=== PATIENT | female | born 1980 | race Caucasian/White ===

== ENCOUNTER 2017-12-07 12:56 | Outpatient (REF) | payer SELFPAY | END 2017-12-07 12:57 | LOC: OM 12:56 | PROVIDERS: PCP Nurse Practitioner Family; Visit Provider Nurse Practitioner Family | DX: Z02.79 Encounter for issue of other medical certificate (principal) ==

== ENCOUNTER → 2021-11-17 02:24 | Outpatient (CLI) | payer OTHER, SELFPAY ==
--- NOTE | 2021-11-17 07:45 | DI.MAMMO_ITS ---
Exam(s) US BREAST RT COMPLETE MAMMO DIAGNOSTIC BI EXAM: MAMMO DIAGNOSTIC BI AND U/S BREAST RT COMPLETE CLINICAL HISTORY: RT BREAST MASS, PAIN, N63.10, N64.4. TECHNIQUE: Craniocaudal and mediolateral oblique Full Field Digital Mammography views with Computer Aided Diagnosis followed by Tomosynthesis and right breast ultrasound. COMPARISON: US US BREAST RT COMPLETE from 11/17/2021 FINDINGS: Mammography/Tomosynthesis: Masses/Architectural Distortion: There is a soft tissue spiculated mass at the upper outer quadrant o f the right breast measuring 4.5 cm with associated microcalcifications and architectural distortion. Microcalcifictions: No suspicious pleomorphic-type are seen. Skin Thickening/Nipple Retraction: None. Complete right breast US: Echotexture: Normal appearance of the glandular tissue. Shadowing: No suspicious foci. Cyst: None. Solid lesions: There is a solid hypoechoic irregular mass at the 9 o'clock position 2 cm from the nip ple measuring 4.2 x 2 x 3.1 cm. Increased vascularity is seen. The right axilla is unremarkable. Ductal dilation: None. IMPRESSION: 1. Spiculated mass in the upper outer quadrant of the right breast with associated microcalcification s and architectural distortion. 2. Findings are highly suspicious for malignancy. 3. Findings were discussed with the patient and the primary care team on the date of the examination. BI-RADS Category 5 - Highly Suggestive of Malignancy: Biopsy recommended Breast Density - Category B - Scattered areas of fibroglandular density Breast density Category C or D implies that the patient has dense breast tissue. Dense breast tissue can make it harder to find cancer on a mammogram. Dense breast tissue is also associated with an incr eased risk of breast cancer. This information about the result of the mammogram report was provided to the patient to raise their awareness. Use this report when you speak with the patient about their risks for breast cancer, which includes their family history. At that time, you may recommend additional screening tests (Ultrasoun d or MRI) as these tests may add significant information. A negative radiographic report should not delay biopsy if a dominant or clinically suspicious mass is present. Up to ten percent of cancers are not identified on mammography. A negative report may reinforce clinical impression. Adenosis and dense breasts may obscure an underlying neoplasm. False positive reports average 6 to 10%. Patient will receive a letter notifying them of these results.
== END ==
PROVIDERS: PCP Nurse Practitioner Family; Visit Provider Obstetrics & Gynecology
DX: N63.11 Unspecified lump in the right breast, upper outer quadrant (principal); N64.4 Mastodynia
CPT/HCPCS: 76642; 77062; 77066; G0279

== ENCOUNTER 2021-11-23 08:15 | Outpatient (REF) | payer OTHER, SELFPAY ==
--- NOTE | 2021-11-23 08:25 | BREAST_PTH ---
PATIENT: Soy San LOC: [facility] U#:[id number] AGE/SX: 41/F ROOM: RE11/23/[address]: Jacoby Lim MD : 1980 BED: DIS: 11/23/2021 SPEC #: [id number] RECD: 11/23/21 12:02 STATUS: OTTONIEL WOODARD #: [id number] LORI: 11/23/21 08:[address]: Jacoby Lim DEPT: Surgical Specimen RECD BY: Isiah Pham Tissues: 1 - BREAST BX NEEDLE Procedures: GROSS AND MICRO LEVEL 4 Comments: [id number]
== END 2021-11-23 08:16 | disposition home or self-care (01) ==
LOC: LBN 08:15
PROVIDERS: PCP Nurse Practitioner Family; Visit Provider Surgery
DX: N60.31 Fibrosclerosis of right breast (principal)
CPT/HCPCS: 88305; 88307

== ENCOUNTER 2022-04-29 12:11 | Outpatient (REF) | payer OTHER, SELFPAY ==
[2022-05-01 11:15] LABS: COVID-19 RT-PCR UVMMC Result Negative (Negative)
== END 2022-04-29 12:12 | disposition home or self-care (01) ==
LOC: LBN 12:11
PROVIDERS: Visit Provider Physician Assistant Medical
DX: Z20.822 Contact with and (suspected) exposure to COVID-19 (principal)
CPT/HCPCS: U0003

== ENCOUNTER 2022-06-23 02:05 | Outpatient (CLI) | payer OTHER, SELFPAY ==
--- NOTE | 2022-06-23 | DI.MAMMO_ITS ---
Exam(s) MG MAMMO DIAGNOSTIC UNI US BREAST RT COMPLETE EXAM: MG MAMMO DIAGNOSTIC UNI CLINICAL HISTORY: DIAGNOSTIC, RT BREAST MASS,RT BREAST PAIN,H/O ABNL MAMMO, N64.4,N63.10,. COMPARISON: US US BREAST RT COMPLETE from 11/17/2021 MG MG MAMMO DIAGNOSTIC BI from 11/17/2021 US US BREAST RT COMPLETE from 06/23/2022 TECHNIQUE: Craniocaudal and mediolateral oblique Full Field Digital Mammography views of the right b reast with Computer Aided Diagnosis followed by Tomosynthesis and right breast ultrasound. FINDINGS: Mammography/Tomosynthesis: Masses/Architectural Distortion: Marked interval increase in size of previously noted mass seen in th e central posterior breast with associated pleomorphic microcalcifications. Approximate measurements are 6 x 3 x 3.5 cm. New masses are also noted anterior to the larger mass, measuring 3 by 1.5 cm. Associated architectural distortions seen extending anteriorly. Skin Thickening/Nipple Retraction: Marked skin thickening, up to 2 cm, markedly worsened from prior. New nipple inversion. Right breast US: Marked skin edema, greatest in the retroareolar region. In mild ductal dilatation Large irregular shadowing mass measuring roughly 5.6 x 2.6 by 2 cm. This is seen best at the 11 o'cl ock position. At the 12 o'clock position 1 cm from the nipple, there is a min 11 millimeter mass. T he 6 o'clock position, 4 cm from the nipple, there is a 1.7 x 1.5 x 1.9 centimeter mass. Abnormal appearing enlarged lymph nodes are noted in the axilla, the larger measuring 3.5 cm in lengt h and the smaller measuring 2.2 cm in length. IMPRESSION: Marked interval increase of previously noted mass with associated pleomorphic macro micro calcificati ons. Development of new masses seen anterior to the larger mass as well as marked skin thickening. Abnormally enlarged axillary lymph nodes. BI-RADS Category 5 - Highly Suggestive of Malignancy: Biopsy recommended Breast Density - Category B - Scattered areas of fibroglandular density The findings were discussed with the patient and Dr. Gianna Patino. Further evaluation is scheduled at [facility]. Patient will receive a letter notifying them of these results.
== END 2022-06-23 02:25 ==
LOC: DI 02:06
PROVIDERS: Visit Provider Obstetrics & Gynecology
DX: N64.4 Mastodynia (principal); R92.8 Other abnormal and inconclusive findings on diagnostic imaging of breast; N63.10 Unspecified lump in the right breast, unspecified quadrant
CPT/HCPCS: 76642; 77061; 77065; G0279

== ENCOUNTER 2024-06-01 19:44 | Emergency (ER) | payer BC, SELFPAY ==
[2024-06-01 19:47] VITALS: BP 169/125; PULSE 118; RESP 18; TEMP 36.6; O2SAT 97
[2024-06-01] MEDS: Lidocaine/Epinephri/Tetracaine Topical Gel 3 ML (20:17)
[2024-06-01] MEDS: Silver Nitrate Stick 1 EACH ×2 (20:17)
[2024-06-01 20:18] VITALS: RESP 20; O2SAT 99
--- OUTSIDE RECORDS SUMMARY | 2024-06-01 20:34 | XMS_ITS | Continuity of Care Document ---
Author Organization [facility] Ambulatory Clinics Address [address] [place] [address] Encounter [facility] NBR [id number] Date(s): 03/10/24 - 03/10/24 [facility] Ambulatory Clinics [address] [place], [place] [address] Encounter Diagnosis URI with cough and congestion(Discharge Diagnosis) - 03/10/24 Discharge Disposition: Home or Self Care Attending Physician: LEOPOLDO Kumar Allergies, Adverse Reactions, Alerts No Known Medication Allergies Assessment and Plan Extracted from: Title:[facility] office Visit Note Author:LEOPOLDO Krause Date:03/10/24 1.??URI with cough and conge stion??J06.9 ??Short duration typical viral progression. ??I do feel her abdominal discomfort may be related to her viral illness.?? No acute abdominal findings on exam. ??Patient is otherwise stable. ??Vital signs normal. ??Recommend observation, recheck. ??Reassuring normal CT scan within the past couple of days. ??Follow-up as needed. Ordered: Office serv/reg ti/wkend/holiday [id number], 03/10/24 13:00:00 EST, URI with cough and congestion ?? Medications hydrocortisone 2.5% topical cream 0 Refill(s) Start Date: 03/10/24 Status: Ordered ketoconazole 2% topical cream 0 Refill(s) Start Date: 03/10/24 Status: Ordered lidocaine-prilocaine 2.5%-2.5% topical cream 1 alondra, Topical, Once, # 30 g, 0 Refill(s) Start Date: 03/10/24 Status: Ordered omeprazole 20 mg oral delayed release capsule 0 Refill(s) Start Date: 03/10/24 Status: Ordered trastuzumab 0 Refill(s) Start Date: 03/10/24 Status: Ordered Xgeva 0 Refill(s) Start Date: 03/10/24 Status: Ordered Vital Signs Most recent to oldest [Reference Range]: 1 Temperature Tympanic [36.6-38.1 Deg C] 3 7.4 Deg C (03/10/24 1:03 PM) Peripheral Pulse Rate [60-100 bpm] 77 bp m (03/10/24 1:03 PM) Respiratory Rate [12-24 br/min] 17 br/mi n (03/10/24 1:03 PM) Blood Pressure [90-120/60-80 mmHg] 131/8 1mmHg *HI* (03/10/24 1:03 PM) Mean Arterial Pressure, Cuff [65-140 mmH g] 98 mmHg (03/10/24 1:03 PM) Social History Social History Type Response Tobacco Never tobacco user T obacco Use:. Sex Sex Representation Female (finding) Physician Outpatient Note * LEOPOLDO Kumar: PERFORM Event Display: Office Clinic Note Physician Authored Date: [id number] KARRI SALDIVAR :1980 Age:43 years Sex:Female Visit Date:03/10/2024 Chief Complaint X4 days abd pain comes in waves, mostly when I go to move (belly button) short stabby pain that last about 30 secods or so. Hx of Stage 4 breast cancer. I just got sick 3-4 days ago and my brother was diagnosed with pneumonia. History of Present Illness Patient started 4 days ago with sore throat which resolved quickly then went into runny nose congestion postnasal drip slight cough. ??Also developed some mid upper abdominal discomfort. ??No significant pain. ??She does have a history of gastritis this does not feel similar. ??She is currently on antacid medicine.?? She has had some nausea some upset stomach??however no??continual vomiting or diarrhea. ??She also is currently undergoing chemotherapy some some symptoms are overlapping. ??She denies any new symptoms. ??She recently had a CT scan??this past week of her abdomen, pelvis, chest.?Patient states no acute findings.?? I do not have the report to review.?? She denies any associated fever but has felt warm.?? Denies any hemoptysis. ??Otherwise been usual state of health.?? Brother has pneumonia however she does not have significant contact with him. Physical Exam Vitals & Measurements T:??37.4?C ??(Tympanic)?? HR:??77??(Peripheral)?? RR:??17?? BP:??131/81?? SpO2:??98%?? Pain Score:??3.0?? General: Alert and oriented, well nourished, no acute distress. Eye:??Pupils are reactive, conjunctiva clear. HENT: Normocephalic, clear tympanic membranes, throat clear no exudate and uvula is midline Neck: Supple, non-tender, no lymphadenopathy Lungs: Clear to auscultation, non-labored respiration. Heart: Normal rate, regular rhythm, no murmur, gallop or edema. Abdomen: Abdomen is soft. ??Minimal tenderness periumbilical to upper abdominal. ??Nondistended no masses. ??No peritoneal signs, rigidity, guarding. ??No CVA tenderness. Musculoskeletal: Normal range of motion and strength, no tenderness or swelling. Skin: Skin is warm, dry, no rashes or lesions in examined areas. Neurologic: Awake, alert and oriented X3, normal cognition and interaction. Psychiatric: Cooperative, appropriate mood and affect. Assessment/Plan 1.??URI with cough and congestion??J06.9 ??Short duration typical viral progression. ??I do feel her abdominal discomfort may be related to her viral illness.?? No acute abdominal findings on exam. ??Patient is otherwise stable. ??Vital signs normal. ??Recommend observation, recheck. ??Reassuring normal CT scan within the past couple of days. ??Follow-up as needed. Ordered: Office serv/reg ti/wkend/holiday [id number], 03/10/24 13:00:00 EST, URI with cough and congestion ?? Patient Instructions Verbal instructions per patient request Problem List/Past Medical History Ongoing No qualifying data Historical No qualifying data Medications hydrocortisone 2.5% topical cream ketoconazole 2% topical cream lidocaine-prilocaine 2.5%-2.5% topical cream, 1 alondra, Topical, Once omeprazole 20 mg oral delayed release capsule trastuzumab Xgeva Allergies No Known Medication Allergies Social History Electronic Cigarette/Vaping Electronic Cigarette Use: Never. Tobacco Never tobacco user Tobacco Use:. Electronically Signed on 03/10/2024 13:27 EST LEOPOLDO Kumar Insurance Providers Guarantor name: KARRI SALDIVAR Health Plan Information #: 1 Payer: [facility] Member Number: [id number] Policy Number: NA Health Plan Information #: 2 Payer: [facility] Member Number: NA Policy Number: [id number] Health Plan Information #: 3 Payer: [facility] Member Number: [id number] Policy Number: NA
--- OUTSIDE RECORDS SUMMARY | 2024-06-01 20:34 | XMS_ITS | Continuity of Care Document ---
Author Organization [facility] Address [address] [place] [id number] Encounter [facility] NBR [id number] Date(s): 12/14/22 - 12/14/[address] [address]- [place] Encounter Diagnosis Encounter for drug screening(Discharge Diagnosis) - 12/14/22 Discharge Disposition: Home or Self Care Attending Physician: Linsey Kelsey PA-C
--- OUTSIDE RECORDS SUMMARY | 2024-06-01 20:35 | XMS_ITS | Clinical Summary ---
Author Organization [facility] Address [facility] [place] [address] Care Team Providers Care Security Screener Name Role Phone Ryan Betancourt MD Primary Care Provider [phone] Allergies Active Allergy Reactions Criticality Noted Date Comments Milk Containing Products (Dairy) 07/29/2022 Unclassified Drug Hives Low 07/29/2022 Pollen - runny nose, itchy and watery eyes Transparent Dressings 09/30/2022 Skin irritation/darkening with tegaderm. Use sorbaview Medications Medication Sig Dispensed Refills Start Date End Date Status betamethasone dipropionate (Diprolene) 0.05 % Cream Apply topically 2 times daily. 30 g 08/25/2022 Active multivitamin Capsule Take 1 capsule by mouth daily. Active prochlorperazine (Compazine) 10 mg tablet Take 1 tablet by mouth every 6 hours as needed for Nausea. 30 tablet 3 10/04/2022 Active omeprazole (PriLOSEC) [address] capsuleIndications: Malignant neoplasm of overlapping sites of right breast in female, estrogen receptor negative,Deformity of nail bed,Gastroesophagea l reflux disease, unspecified whether esophagitis present Take 1 capsule by mouth daily. 90 capsule 3 09/22/2023 09/21/2024 Active oxyCODONE-acetamino phen (Percocet) 5-325 mg tablet Take 1 tablet by mouth every 4 hours as needed for Pain. PRN only when needed Active lidocaine-prilocain e (EMLA) CreamIndications:Ma lignant neoplasm of overlapping sites of right breast in female, estrogen receptor negative,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 Apply topically 60 minutes prior to accessing port. Apply a thick layer of cream to designated site of intact skin. Cover site with occlusive dressing. 30 g 1 12/15/2023 Active Sodium Fluoride (Clinpro 5000) 1.1 % Paste BRUSH TEETH DIRECTED BY PROVIDER 12/19/2023 Active hydrocortisone 2.5 % CreamIndications:Ma lignant neoplasm of overlapping sites of right breast in female, estrogen receptor negative,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 Mix equal amounts of both creams and apply mixture topically to affected areas on the pannus, feet and breasts twice daily for 2 weeks as needed. 30 g 1 12/30/2023 Active ketoconazole (Nizoral) 2 % CreamIndications:Ma lignant neoplasm of overlapping sites of right breast in female, estrogen receptor negative,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 Mix equal amounts of both creams and apply mixture topically to affected areas on the pannus, feet and breasts twice daily for 2 weeks as needed. 30 g 1 12/30/2023 Active ondansetron (Zofran) 8 mg tabletIndications:M alignant neoplasm of overlapping sites of right breast in female, estrogen receptor negative,Malignant neoplasm of right breast in female, estrogen receptor negative, unspecified site of breast,HER2-positiv e carcinoma of breast Take 1 tablet by mouth every 8 hours as needed for Nausea. 30 tablet 3 05/03/2024 Active Additional Information Patient not taking.Reported on 05/24/2024 Active Problems Problem Noted Date Diagnosed Date Malignant neoplasm of overla pping sites of breast in female, estrogen receptor negative 07/29/2022 Encounters Date Type Department Care Team Description 05/29/2024 Patient Outreach H[place] [phone] Tegan Perry 05/24/2024 2:23 PM EST - 05/24/2024 11:59 PM EST [place] [phone] Consuelo Joyce APRN Malignant neoplasm of overlapping sites of right breast in female, estrogen receptor negative; Malignant neoplasm of right breast in female, estrogen receptor negative, unspecified site of breast; 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 Discharge Disposition: Home 05/24/2024 10:00 AM EST Office Visit [place] [address] Kavitha Rai MD Malignant neoplasm of overlapping sites of right breast in female, estrogen receptor negative; HER2-positive carcinoma of breast 05/24/2024 8:30 AM EST - 05/24/2024 2:22 PM EST Hospital Encounter [place] [address] Malignant neoplasm of overlapping sites of right breast in female, estrogen receptor negative Discharge Disposition: Home 05/24/2024 8:30 AM EST Hospital Encounter [place] [address] Malignant neoplasm of overlapping sites of right breast in female, estrogen receptor negative Discharge Disposition: Home 05/24/2024 Travel 05/03/2024 11:00 AM EST Office Visit [place] [address] Consuelo Joyce APRN Urgency of urination; Malignant neoplasm of overlapping sites of right breast in female, estrogen receptor negative; Malignant neoplasm of right breast in female, estrogen receptor negative, unspecified site of breast; 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; HER2-positive carcinoma of breast 05/03/2024 10:08 AM EST - 05/03/2024 11:59 PM EST Hospital Encounter [place] [address] Malignant neoplasm of overlapping sites of right breast in female, estrogen receptor negative; Urgency of urination Discharge Disposition: Home 05/03/2024 10:00 AM EST - 05/03/2024 10:07 AM EST Hospital Encounter [place] [address] Malignant neoplasm of overlapping sites of right breast in female, estrogen receptor negative Discharge Disposition: Home 05/03/2024 Travel 04/24/2024 [place] [address] Lilian Gipson MSW 04/10/2024 8:00 AM EST Office Visit [place] [address] Consuelo Joyce, COMMODITY MANAGER Malignant neoplasm of overlapping sites of right breast in female, estrogen receptor negative; Malignant neoplasm of right breast in female, estrogen receptor negative, unspecified site of breast; 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; HER2-positive carcinoma of breast 04/10/2024 6:49 AM EST - 04/10/2024 11:59 PM EST Hospital Encounter Hematology and Oncology at [place] [phone] Malignant neoplasm of overlapping sites of right breast in female, estrogen receptor negative Discharge Disposition: Home 04/10/2024 6:49 AM EST - 04/10/2024 11:59 PM EST Hospital Encounter Hematology and Oncology at [place] [phone] Malignant neoplasm of overlapping sites of right breast in female, estrogen receptor negative Discharge Disposition: Home 04/10/2024 Travel 04/09/2024 Orders Only Radiology at [place] [phone] Farheen Her MD 04/05/2024 Notes Only Care Management [place] [phone] Lilian Gipson, TIE UP WORKER 03/20/2024 2:43 PM EST - 03/20/2024 11:59 PM EST Hospital Encounter MRI at [place] [phone] Consuelo Joyce APRN 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; Malignant neoplasm of overlapping sites of right breast in female, estrogen receptor negative; HER2-positive carcinoma of breast Discharge Disposition: Home 03/20/2024 11:20 AM EST Office Visit [place] [address] Kavitha Rai MD Malignant neoplasm of right breast in female, estrogen receptor negative, unspecified site of breast 03/20/2024 9:41 AM EST - 03/20/2024 2:42 PM EST Hospital Encounter [place] [address] Malignant neoplasm of overlapping sites of right breast in female, estrogen receptor negative Discharge Disposition: Home 03/20/2024 9:40 AM EST Hospital Encounter [place] [address] Malignant neoplasm of overlapping sites of right breast in female, estrogen receptor negative Discharge Disposition: Home 03/20/2024 Travel 03/08/2024 12:12 PM EST - 03/08/2024 11:59 PM EST Hospital Encounter [place] [address] Consuelo Joyce, COMMODITY MANAGER Discharge Disposition: Home 03/08/2024 9:39 AM EST - 03/08/2024 12:11 PM EST Hospital Encounter [place] [address] Consuelo Joyce, COMMODITY MANAGER 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; Malignant neoplasm of overlapping sites of right breast in female, estrogen receptor negative; HER2-positive carcinoma of breast Discharge Disposition: Home 03/08/2024 9:34 AM EST - 03/08/2024 9:38 AM EST [place] [address] Consuelo Joyce, COMMODITY MANAGER 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; Malignant neoplasm of overlapping sites of right breast in female, estrogen receptor negative; HER2-positive carcinoma of breast Discharge Disposition: Home 03/08/2024 Travel from Last 3 Months Family History Medical History Relation Comments Tumor Brother benign pancreat ic tumor that is growing Cancer Father multiple myeloma , hx of agent orange exposure Ovarian Cancer Maternal Aunt 1 Skin Cancer Maternal Aunt 2 Skin Cancer Maternal Cousin 1 Skin Cancer Maternal Cousin 2 Stomach Cancer Maternal Uncle 3 days after diagnosis Breast Cancer Other Relation Status Comments Brother Alive Father Maternal Aunt 1 Alive Maternal Aunt 2 Alive Maternal Cousin 1 Alive Maternal Cousin 2 Alive Maternal Grandfather Maternal Grandmother Alive Maternal Half-Sister Alive Maternal Uncle Mother Alive Other Paternal Grandfather Paternal Grandmother Sister Alive Social History Tobacco Use Types Packs/Day Years Used Date Smoking Tobacco: Former Cigarettes 0.3 1 1 996 - 1996 Smokeless Tobacco: Never Tobacco Cessation:Counseling Given: Not Answered Alcohol Use Standard Drinks/Week Comments Not Currently 4 (1 standard drink = 0.6 oz pure alcohol) not drinking x 2 months since chemo Overall Financial Resource Strain (CARDIA) Answe r Date Recorded How hard is it for you to pa y for the very basics like food, housing, medical care, and heating? Somewhat hard 07/29/2022 Hunger Vital Sign Answer Date Recorded Within the past 12 months, y ou worried that your food would run out before you got the money to buy more. Sometimes true Within the past 12 months, t he food you bought just didn't last and you didn't have money to get more. Sometimes true PRAPARE - Transportation Answer Date Re corded In the past 12 months, has l ack of transportation kept you from medical appointments or from getting medications? No 07/17 In the past 12 months, has l ack of transportation kept you from meetings, work, or from getting things needed for daily living? No 07/29/2022 Housing Stability Vital Sign Answer Augie e Recorded In the last 12 months, was t here a time when you were not able to pay the mortgage or rent on time? Yes 07/29/2022 In the last 12 months, how many places have you lived? 1 07/29/2022 In the last 12 months, was t here a time when you did not have a steady place to sleep or slept in a detention (including now)? No 07/29/2022 Sex and Gender Information Value Date Recorded Sex Assigned at Not on file Gender Identity Not on file Sexual Orientation Not on file Last Filed Vital Signs Vital Sign Reading Time Taken Comments Blood Pressure 139/94 05/24/2024 10:29 AM EST Pulse 78 05/24/2024 10:29 AM EST Temperature 36.8 ??C (98.2 ??F) 05/24/2024 1 0:29 AM EST Respiratory Rate 16 05/24/2024 10:2 9 AM EST Oxygen Saturation 99% 05/24/2024 10: 29 AM EST Inhaled Oxygen Concentration - - Weight 110.9 kg (244 lb 7.8 oz) 025 10:29 AM EST Height 164 cm (5' 4.57) 05/24/2024 10: 29 AM EST Body Mass Index 41.23 05/24/2024 10:29 AM EST Plan of Treatment Upcoming Encounters Date Type Department Care Team (Late st Contact Info) Description 06/14/2024 8:00 AM EST Hospital Encounter Nuclear Medicine at [place] [phone] Consuelo Joyce [facility] [place] [address] 06/14/2024 8:45 AM EST Appointment XRay at [address] [place] [address] Kavitha Rai MD [facility] DR HEMATOLOGY [place] [address] 06/14/2024 9:45 AM EST Appointment Hematology [place] [address] 06/14/2024 11:00 AM EST Appointment [place] [address] Consuelo Joyce [facility] [place] [address] 06/14/2024 1:00 PM EST Office Visit [place]ology [place] [address] Kavitha Rai MD [facility] DR HEMATOLOGY [place] [address] 06/14/2024 2:30 PM EST Appointment [place] [address] 07/05/2024 10:30 AM EDT Appointment H[place]ology [place] [address] 07/05/2024 11:30 AM EDT Office Visit [place] [address] Consuelo Joyce APRN [facility] [place] [address] 07/05/2024 1:00 PM EDT Appointment Hematology [place] [address] 08/16/2024 9:20 AM EDT Office Visit Ophthalmology at [place] [address] Luz Jose, OD [facility] [place] [address] 01/14/2025 8:30 AM EDT Office Visit Psychiatry and Behavioral Health at [address] Anna Oneill, PhD [facility] [place] [address] Health Maintenance Due Date Last Done Comments CT Colonography 1978 Colonoscopy 1978 Colorectal Cancer Screening 1978 FIT DNA 1978 FIT 1978 Sigmoidoscopy (10 year) with FIT yearly 1978 Sigmoidoscopy 1978 HIV screen 1996 Hepatitis C Screening 1996 Lipid Screening 1996 Hepatitis B vaccine (0-59 yrs) (1) 1997 Tetanus/Diphtheria/Pertussis Vaccines (1 - Tdap) 1997 HPV test 2008 PAP Smear 2008 Breast Cancer Share Decision Needed 2018 Covid-19 Vaccine (1 - 2023-2 5 season) 2023 Influenza (Flu) vaccine (1 o f 1 - Influenza standard series) 12/18/2023 Breast Cancer screening 11/06/2025 11/07/2023 Diabetes Screening (HgbA1C o r Glucose) 05/24/2027 05/24/2024, 05/03/2024, 04/10/2024, Additional history exists Medical Devices Implanted Type Area Police Officer Device Identifier Shelf Expiration Date Model / Serial / Lot Breast Clip-07/06/2022 Implanted:Qty: 1 on 07/06/2022 by Akhil Fregoso MD Breast Clip Right: Breast Bard - 0614 [id number] / / [id number] Description:SENOMARK ULTRACO R BREAST TISSUE MARKER BLAIRE Breast Clip-07/06/2022 Implanted:Qty: 1 on 07/06/2022 by Akhil Fregoso MD Breast Clip Right: Axilla Bard - 0614 [id number] / / [id number] Description:ULTRACOR BREAST TISSUE MARKER TWIRL Port Infusion 8fr Attachable Power Injectable Sonali Profuse ([id number]/10 Implanted:Qty: 1 on 09/10/2022 by Glen Moreno MD IMPLANTS Left: Chest Wall [employer] - MEDCOMP IN [id number] / / [id number] Description:lij 8fr pro-fuse power Explanted Type Area Police Officer Device Identifier Shelf Expiration Date Model / Serial / Lot Port Infusion 8fr Cath Power Lp Ct Plastic Dignity ([id number]/18 Implanted:Qty : 1 on 08/12/2022 by Ryan Dumont MD Explanted:Qty : 1 on 09/10/2022 by Glen Moreno MD IMPLANTS Right: Chest Wall [employer] - MEDCOMP [place] 03/17/2026 [id number] / [id number] / [id number] Procedures Procedure Name Priority Date/Time Associated Diagnosis Comments CT CHEST ABDOMEN PELVIS W CONTRAST (GENERIC) Routine 05/24/2024 2:41 PM EST Malignant neoplasm of overlapping sites of right breast in female, estrogen receptor negative Malignant neoplasm of right breast in female, estrogen receptor negative, unspecified site of breast 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 CEA Routine 05/24/2024 8:54 AM EST Malignant neoplasm of overlapping sites of right breast in female, estrogen receptor negative CBC (WITH DIFF) STAT 05/24/2024 8:54 AM EST Malignant neoplasm of overlapping sites of right breast in female, estrogen receptor negative COMPREHENSIVE METABOLIC PANEL STAT 05/24/2024 8:54 AM EST Malignant neoplasm of overlapping sites of right breast in female, estrogen receptor negative CANCER ANTIGEN 15-3 STAT 05/24/2024 8 :54 AM EST Malignant neoplasm of overlapping sites of right breast in female, estrogen receptor negative URINALYSIS WITH REFLEX CULTURE Routine 05/03/2024 2:03 PM EST Urgency of urination CANCER ANTIGEN 15-3 STAT 05/03/2024 1 0:24 AM EST Malignant neoplasm of overlapping sites of right breast in female, estrogen receptor negative COMPREHENSIVE METABOLIC PANEL STAT 05/03/2024 10:24 AM EST Malignant neoplasm of overlapping sites of right breast in female, estrogen receptor negative CBC (WITH DIFF) STAT 05/03/2024 10:24 AM EST Malignant neoplasm of overlapping sites of right breast in female, estrogen receptor negative CEA Routine 05/03/2024 10:24 AM EST Malignant neoplasm of overlapping sites of right breast in female, estrogen receptor negative CEA Routine 04/10/2024 7:05 AM EST Malignant neoplasm of overlapping sites of right breast in female, estrogen receptor negative COMPREHENSIVE METABOLIC PANEL STAT 04/10/2024 7:05 AM EST Malignant neoplasm of overlapping sites of right breast in female, estrogen receptor negative CBC (WITH DIFF) STAT 04/10/2024 7:05 AM EST Malignant neoplasm of overlapping sites of right breast in female, estrogen receptor negative CANCER ANTIGEN 15-3 STAT 04/10/2024 7 :05 AM EST Malignant neoplasm of overlapping sites of right breast in female, estrogen receptor negative MRI BREAST WWO CONTRAST BILAT Routine 03/20/2024 4:56 PM EST 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 Malignant neoplasm of overlapping sites of right breast in female, estrogen receptor negative HER2-positive carcinoma of breast CANCER ANTIGEN 15-3 STAT 03/20/2024 9 :52 AM EST Malignant neoplasm of overlapping sites of right breast in female, estrogen receptor negative COMPREHENSIVE METABOLIC PANEL STAT 03/20/2024 9:52 AM EST Malignant neoplasm of overlapping sites of right breast in female, estrogen receptor negative CBC (WITH DIFF) STAT 03/20/2024 9:52 AM EST Malignant neoplasm of overlapping sites of right breast in female, estrogen receptor negative CEA Routine 03/20/2024 9:52 AM EST Malignant neoplasm of overlapping sites of right breast in female, estrogen receptor negative NM BONE SCAN WHOLE BODY Routine 03/08/2024 12:55 PM EST 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 Malignant neoplasm of overlapping sites of right breast in female, estrogen receptor negative HER2-positive carcinoma of breast CT CHEST ABDOMEN PELVIS W CONTRAST (GENERIC) Routine 03/08/2024 12:06 PM EST 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 Malignant neoplasm of overlapping sites of right breast in female, estrogen receptor negative HER2-positive carcinoma of breast MAMMO DIAGNOSTIC CAD AND [place] BILATERAL Routine 11/07/2023 4:28 PM EDT Malignant neoplasm of female breast, unspecified estrogen receptor status, unspecified laterality, unspecified site of breast from Last 3 Months or Most Recently Relevant to Health Maintenance Results * CT Chest Abdomen Pelvis w Contrast (Generic) (05/24/2024 2:41 PM EST) Only the most recent of2 resultswithin the time period is included. WORKSTATION ID [id number] DH RAD Anatomical Region Laterality Modality Abdomen, Pelvis Computed Tomogra phy Impressions 05/25/2024 9:21 AM EST 1. Stable appearing sclerotic bony lesions again noted. The appearance and distribution is similar to the 03/08/2024 CT scan without new or additional disease appreciated. No evidence for pathologic fracture. 2. Postoperative changes in the right breast and axilla. 3. No new evidence for metastatic disease elsewhere. Thank you for letting us participate in the care of this patient. ??If you are a health care provider and have any questions regarding this report, please contact the number below. ??For patients who have questions please contact the health transitional care liaison that requested your imaging first. ? Narrative 05/25/2024 9:21 AM EST EXAMINATION: CT CHEST ABDOMEN PELVIS W CONTRAST (GENERIC) CLINICAL HISTORY: MBC, assess treatment response C50.811, Malignant neoplasm of overlapping sites of right female breast - Z17.1, Estrogen receptor negative status (ER-) - C50.911, Malignant neoplasm of unspecified site of right female breast - Z17.1, Estrogen receptor negative status (ER-) - C50.911, Malignant neoplasm of unspecified site of right female breast - C79.51, Secondary malignant neoplasm of bone TECHNIQUE: Helical CT of the chest, abdomen, and pelvis following the intravenous administration of contrast. Administered 120.0 ml of OMNIPAQUE 350.00 mg/ml. Oral contrast was administered. COMPARISON: None FINDINGS: CHEST: Lung: No significant pulmonary nodules. There are tiny wedge-shaped subpleural lymph nodes seen along the left fissure again noted. No dense consolidation or air bronchograms. Central airways unremarkable. Mediastinum: Small hiatal hernia. No hilar or mediastinal adenopathy. Visualized thyroid gland unremarkable. Central vessels are grossly patent. Left-sided chest port tip near the cavoatrial junction. Pericardium/Pleura: No significant effusion. No pleural mass or thickening. Chest Wall/Axilla: Biopsy/surgical clip within the right axilla and posterior right breast tissue again noted. No bulky adenopathy. ABDOMEN/PELVIS: Peritoneal Space:No significant free air or free fluid identified. Liver, Gallbladder, Biliary Tree: The liver is normal in size, shape, and attenuation. No focal hepatic lesion or biliary ductal dilatation is present. The gallbladder is unremarkable with no evidence of radiopaque gallstones, gallbladder wall thickening, or obvious pericholecystic inflammatory changes. Pancreas: Unremarkable. Spleen: 14.7 cm in length. Adrenal Glands: Unremarkable. Kidneys and Ureters: The kidneys are normal in size, shape, and attenuation. No hydronephrosis, hydroureter, or calculi seen. No perinephric stranding. Bladder: Unremarkable. Gastrointestinal Tract: The small and large bowel are unremarkable. ??The appendix is unremarkable. Abdominal Wall: Tiny fat-containing umbilical hernia. Lymphovascular Structures: No lymphadenopathy. ??The aorta is unremarkable. Pelvic Viscera: Unremarkable. Osseus Structures: Sclerotic degenerative changes within the left greater than right sacroiliac joints. Subtle sclerotic lesions again seen within the spine more so at T10, posterior T11, anterior T12-L1, L3, and S1 with the morphology and distribution similar to the prior study. Subtle sclerosis within the contralateral left fourth rib similar to the prior exam. Mildly expansile sclerotic lesions within the sternum and manubrium similar to the prior study as well. Procedure Note Cirilo Pickens MD - 05/25/2024 EXAMINATION: CT CHEST ABDOMEN PELVIS W CONTRAST (GENERIC) CLINICAL HISTORY: MBC, assess treatment response C50.811, Malignant neoplasm of overlapping sites of right female breast -Z17.1, Estrogen receptor negative status (ER-) - C50.911, Malignant neoplasm of unspecified site of right female breast - Z17.1, Estrogen receptornegative status (ER-) - C50.911, Malignant neoplasm of unspecified site of rightfemale breast - C79.51, Secondary malignant neoplasm of bone TECHNIQUE: Helical CT of the chest, abdomen, and pelvis following the intravenous administration of contrast. Administered 120.0 ml ofOMNIPAQUE 350.00 mg/ml. Oral contrast was administered. COMPARISON: None FINDINGS: CHEST: Lung: No significant pulmonary nodules. There are tiny wedge-shapedsubpleural lymph nodes seen along the left fissure again noted. No denseconsolidation or air bronchograms. Central airways unremarkable. Mediastinum: Small hiatal hernia. No hilar or mediastinal adenopathy.Visualized thyroid gland unremarkable. Central vessels are grossly patent. Left-sidedchest port tip near the cavoatrial junction. Pericardium/Pleura: No significant effusion. No pleural mass orthickening. Chest Wall/Axilla: Biopsy/surgical clip within the right axilla andposterior right breast tissue again noted. No bulky adenopathy. ABDOMEN/PELVIS: Peritoneal Space:No significant free air or free fluid identified. Liver, Gallbladder, Biliary Tree: The liver is normal in size, shape,and attenuation. No focal hepatic lesion or biliary ductal dilatation ispresent. The gallbladder is unremarkable with no evidence of radiopaquegallstones, gallbladder wall thickening, or obvious pericholecystic inflammatorychanges. Pancreas: Unremarkable. Spleen: 14.7 cm in length. Adrenal Glands: Unremarkable. Kidneys and Ureters: The kidneys are normal in size, shape, andattenuation. No hydronephrosis, hydroureter, or calculi seen. No perinephric stranding. Bladder: Unremarkable. Gastrointestinal Tract: The small and large bowel are unremarkable. The appendix is unremarkable. Abdominal Wall: Tiny fat-containing umbilical hernia. Lymphovascular Structures: No lymphadenopathy. The aorta isunremarkable. Pelvic Viscera: Unremarkable. Osseus Structures: Sclerotic degenerative changes within the left greaterthan right sacroiliac joints. Subtle sclerotic lesions again seen within thespine more so at T10, posterior T11, anterior T12-L1, L3, and S1 with themorphology and distribution similar to the prior study. Subtle sclerosis within the contralateral left fourth rib similar to the prior exam. Mildlyexpansile sclerotic lesions within the sternum and manubrium similar to the priorstudy as well. IMPRESSION 1. Stable appearing sclerotic bony lesions again noted. The appearanceand distribution is similar to the 03/08/2024 CT scan without new oradditional disease appreciated. No evidence for pathologic fracture. 2. Postoperative changes in the right breast and axilla. 3. No new evidence for metastatic disease elsewhere. Thank you for letting us participate in the care of this patient. If youare a health care provider and have any questions regarding this report,please contact the number below. For patients who have questions please contactthe health transitional care liaison that requested your imaging first. Consuelo Joyce COMMODITY MANAGER IMG CT ORDERABLES * (ABNORMAL) Cancer antigen 15-3 (05/24/2024 8:54 AM EST) Only the most recent of4 resultswithin the time period is included. Pathologist [facility] CA 15-3 33(H) <=25 unit/mL 05/24/2024 10:47 AM [facility] Comment:This result was gene rated using a Deepak Dequan immunoassay. Results obtained from other methods or manufacturers cannot be used interchangeably with this method. Blood VENOUS BLOOD SPECIMEN / Unknown Mediport Line / Unknown 05/24/2024 8:54 AM EST 05/24/2024 9:02 AM EST Kavitha Rai MD CHEMISTRY ORDERABLES [facility] [place] [address] * (ABNORMAL) CBC (with Diff) (05/24/2024 8:54 AM EST) Only the most recent of4 resultswithin the time period is included. White Blood Cell 4.85 4.00 - 9.50 x10(3)/mc L 05/24/2024 9:11 AM EST [facility] Red Blood Cell 5.03 4.00 - 5.21 x10(6)/mc L 05/24/2024 9:11 AM [facility] Hemoglobin 13.0 11.7 - 15.5 g/dL 05/24/2024 9:11 AM [facility] Hematocrit 39.8 35.7 - 45.8 % 05/24/2024 9:11 AM [facility] Mean Cell Volume 79.1(L) 82.6 - 94.4 fL 05/24/2024 9:11 AM [facility] Mean Cell Hemoglobin 25.8(L) 27.1 - 32.0 pg 05/24/2024 9:11 AM [facility] Mean Cell Hemoglobin Concentration 32.7 31.7 - 35.0 g/dL 05/24/2024 9:11 AM [facility] Platelet 143(L) 145 - 357 x10(3)/mc L 05/24/2024 9:11 AM [facility] Mean Platelet Volume 9.7 7.6 - 12.9 fL 05/24/2024 9:11 AM [facility] RDW Standard Deviation 44.0 37.0 - 46.0 fL 05/24/2024 9:11 AM [facility] RDW coefficient of variation 15.4(H) 11.5 - 14.1 % 05/24/2024 9:11 AM [facility] NRBC% auto 0.0 % 05/24/2024 9:11 AM [facility] NRBC Absolute <0.01 <0.01 x10(3)/mc L 05/24/2024 9:11 AM [facility] Neutrophil % 55.6 % 05/24/2024 9:11 AM [facility] Neutrophil Absolute (ANC) - Automated 2.70 1.70 - 6.10 x10(3)/mc L 05/24/2024 9:11 AM [facility] Lymph % 32.2 % 05/24/2024 9:11 AM [facility] Lymph Absolute 1.56 0.90 - 3.20 x10(3)/mc L 05/24/2024 9:11 AM [facility] Monocyte % 8.5 % 05/24/2024 9:11 AM [facility] Monocyte Absolute 0.41 0.30 - 0.90 x10(3)/mc L 05/24/2024 9:11 AM EST [facility] Eos % 3.1 % 05/24/2024 9:11 AM [facility] Eos Absolute 0.15 0.00 - 0.40 x10(3)/mc L 05/24/2024 9:11 AM [facility] Basophil % 0.4 % 05/24/2024 9:11 AM [facility] Baso Absolute <0.04 0.00 - 0.10 x10(3)/mc L 05/24/2024 9:11 AM [facility] Immature Gran % 0.2 % 9:11 AM [facility] Immature Gran Absolute <0.04 0.00 - 0.04 x10(3)/mc L 05/24/2024 9:11 AM [facility] Blood VENOUS BLOOD SPECIMEN / Unknown Mediport Line / Unknown 05/24/2024 8:54 AM EST 05/24/2024 9:02 AM EST Kavitha Rai MD HEMATOLOGY ORDERABLE S [facility] [place] [address] * (ABNORMAL) CEA (05/24/2024 8:54 AM EST) Only the most recent of4 resultswithin the time period is included. Carcinoembryonic Antigen 7.7(H) <=3.8 ng/ml 05/24/2024 10:47 AM EST [facility] Comment: Some smokers may have elevated CEA, generally < 5.5 ng/mL. This result was generated using a Deepak Dequan immunoassay. ??Results obtained from other methods or manufacturers cannot be used interchangeably with this method. Blood VENOUS BLOOD SPECIMEN / Unknown Mediport Line / Unknown 05/24/2024 8:54 AM EST 05/24/2024 9:02 AM EST Kavitha Rai MD CHEMISTRY ORDERABLES [facility] [place] [address] * (ABNORMAL) Comprehensive metabolic panel (05/24/2024 8:54 AM EST) Only the most recent of4 resultswithin the time period is included. Glucose 109 65 - 199 mg/dL 05/24/2024 9:36 AM [facility] Comment:Glucose Concentratio n >=200 mg/dL plus symptoms is consistent with Diabetes Mellitus. Blood Urea Nitrogen 12 8 - 18 mg/dL 05/24/2024 9:36 AM [facility] Creatinine 0.78 0.70 - 1.20 mg/dL 05/24/2024 9:36 AM [facility] Sodium 141 135 - 145 mMol/L 05/24/2024 9:36 AM [facility] Potassium 3.2(L) 3.5 - 5.0 mMol/L 05/24/2024 9:36 AM [facility] Chloride 106 98 - 107 mMol/L 05/24/2024 9:36 AM [facility] Carbon Dioxide 27 22 - 31 mMol/L 05/24/2024 9:36 AM [facility] Anion Gap 8 5 - 15 mMol/L 05/24/2024 9:36 AM [facility] Calcium 9.3 8.5 - 10.5 mg/dL 05/24/2024 9:36 AM [facility] Protein, Total 7.3 6.1 - 8.0 g/dL 05/24/2024 9:36 AM [facility] Albumin 3.6 3.2 - 5.2 g/dL 05/24/2024 9:36 AM [facility] Aspartate Aminotransferase 45(H) <=30 unit/L 05/24/2024 9:36 AM [facility] Alanine Aminotransferase 42(H) 0 - 30 unit/L 05/24/2024 9:36 AM [facility] Alkaline Phosphatase 78 35 - 105 unit/L 05/24/2024 9:36 AM [facility] Bilirubin, Total 0.4 <=1.3 mg/dL 05/24/2024 9:36 AM [facility] Est Glomerular Filtration Rate - Female 96 mL/min/1. 73 m?? 05/24/2024 9:36 AM [facility] Comment: This patient's estimated GFR was calculated using the 2020 CKD-EPI equation. The estimated GFR can vary from the measured GFR by up to 30% in the absence of rapidly changing kidney function. Assessment of the estimated GFR is not appropriate when creatinine concentrations are rapidly changing. For clinical situations in which a more precise estimate of GFR is necessary, consider alternative methods of GFR estimation such as a 24-hour urine creatinine clearance. Assignment of CKD stage 1 - 5 for patients with an eGFR near the transition point between stages may be based on clinical assessment of muscle mass and symptoms in addition to eGFR. Link: eGFR Calculator [employer] Fasting Status No 05/24/2024 9:36 AM [facility] Blood VENOUS BLOOD SPECIMEN / Unknown Mediport Line / Unknown 05/24/2024 8:54 AM EST 05/24/2024 9:02 AM EST Kavitha Rai MD CHEMISTRY ORDERABLES [facility] [place] [address] * Urinalysis with reflex Culture (05/03/2024 2:03 PM EST) Glucose, Urine Dipstick Negative Negative 05/03/2024 2:20 PM [facility] Protein, Urine Dipstick Negative Negative 05/03/2024 2:20 PM [facility] Bilirubin, Urine Dipstick Negative Negative 05/03/2024 2:20 PM [facility] Comment:Clinical correlation required for positive Urine Bilirubin results as false positive may occur with some drugs and drug related products. If a false positive is suspected a serum total bilirubin should be considered if clinically indicated. Urobilinogen, Urine Dipstick Normal Normal, 0.2 mg/dL, 1.0 mg/dL 05/03/2024 2:20 PM [facility] pH, Urine (dipstick) 6.5 5.0 - 8.0 05/03/2024 2:20 PM [facility] Blood, Urine Dipstick Negative Negative 05/03/2024 2:20 PM [facility] Ketone, Urine Dipstick Negative Negative 05/03/2024 2:20 PM [facility] Nitrite, Urine Dipstick Negative Negative 05/03/2024 2:20 PM [facility] Leukocytes, Urine Dipstick Negative Negative 05/03/2024 2:20 PM [facility] Specific [place] Urine Automated 1.019 1.005 - 1.030 05/03/2024 2:20 PM [facility] Appearance, Urine Dipstick Clear Clear 05/03/2024 2:20 PM [facility] Color, Urine Dipstick Yellow Yellow, Dark Yellow 05/03/2024 2:20 PM [facility] CULTURE ADDED? 05/03/2024 2:20 PM [facility] Urine URINE SPECIMEN OBTAINED BY CLEAN CATCH PROCEDURE / Unknown Non Blood Collection / Unknown 05/03/2024 2:03 PM EST 05/03/2024 2:11 PM EST Consuelo Joyce COMMODITY MANAGER URINE ORDERABLES [facility] [place] [address] * MRI Breast wwo Contrast Bilat (03/20/2024 4:56 PM EST) WORKSTATION ID [id number] DH RAD Anatomical Region Laterality Modality Breast Bilateral Magnetic Resonan ce Impressions 03/21/2024 5:43 PM EST No MRI evidence of malignancy. RECOMMENDATION: Definitive treatment FINAL ASSESSMENT: LEFT BREAST: BI-RADS Category 1: Negative RIGHT BREAST: BI-RADS Category 6: Known Biopsy Proven Malignancy Thank you for letting us participate in the care of this patient. ??If you are a health care provider and have any questions regarding this report, please contact the number below. ??For patients who have questions please contact the health transitional care liaison that requested your imaging first. ? Electronically signed by: Madina Gardner MD, [facility] ([phone]), at 03/21/2024 5:43 PM Narrative 03/21/2024 5:43 PM EST EXAMINATION: MRI BREAST WWO CONTRAST BILAT CLINICAL INDICATION: MBC, increasing markers and pain in breast and assess treatment respone TECHNIQUE: Multiplanar sequences were obtained pre- and post- Dotarem enhancement, to include SPGR weighted dynamic run-off and subtraction sequences obtained after the intravenous administration of 23 ccs of Dotarem. Computer algorithm analysis for lesion detection and kinetic contrast enhancement curve analysis was performed, using stiQRd software. COMPARISON STUDIES: Compared and/or correlated with prior studies including breast MRI dated 10/14/2023 and 06/23/2023. FINDINGS: Background Enhancement Pattern (first post Dotarem image): None/Minimal (<25% breast) Amount of Fibroglandular Tissue: The breasts are heterogeneously dense, which may obscure small masses. LEFT Breast: There are no suspicious areas of abnormal enhancement or abnormal morphology. RIGHT Breast: There has been interval resolution of previously identified regional nonmass enhancement surrounding the biopsy clip. Findings are consistent with ??complete imaging response. RIGHT BREAST LESION # 1 no residual nonmass enhancement around the biopsy clip at the site of biopsy-proven malignancy. Lymph Node Basins/Other: There is no evidence of internal mammary or axillary adenopathy. No significant abnormalities are seen in the chest wall or skin. Previously noted abnormal sternal enhancement is not visualized on today's study Consuelo Joyce COMMODITY MANAGER IMG MRI ORDERABLES * NM Bone Scan Whole Body (03/08/2024 12:55 PM EST) WORKSTATION ID [id number] RAD Anatomical Region Laterality Modality Nuclear Medicine Impressions 03/09/2024 6:12 AM EST 1. 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 2. ??No other MDP avid osseous metastasis. I have personally reviewed the image(s) and the resident's interpretation and agree with the findings, David Jack MD at 03/09/2024 6:12 AM Thank you for letting us participate in the care of this patient. ??If you are a health care provider and have any questions regarding this report, please contact the number below. ??For patients who have questions please contact the health transitional care liaison that requested your imaging first. ? 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 COMPARISON: Bone scan 10/14/2023 FINDINGS: Unchanged diffusely increased tracer activity involving the sternum and manubrium, correlating with known sclerotic metastases seen on CT. No other MDP avid lesions. Unchanged focally increased tracer activity in the left maxilla, consistent with dental disease. Normal activity is present in the kidneys and urinary bladder. Procedure Note David Jack MD - 03/09/2024 EXAMINATION: NM BONE SCAN WHOLE BODY CLINICAL HISTORY: MBC, increasing markers and assess treatment respone C50.911, Malignant neoplasm of unspecified site of right female breast -C79.51, Secondary malignant neoplasm of bone - C50.811, Malignant neoplasm of overlapping sites of right female breast - Z17.1, Estrogen receptornegative status (ER-) - C50.919, Malignant neoplasm of unspecified site ofunspecified female breast - Z17.31, Human epidermal growth factor receptor 2 positivestatus TECHNIQUE: Three hours following the intravenous administration of 24 mCiof technetium-99m MDP, planar images of the skeleton in anterior andposterior projection were obtained. COMPARISON: Bone scan 10/14/2023 FINDINGS: Unchanged diffusely increased tracer activity involving the sternum and manubrium, correlating with known sclerotic metastases seen on CT. No other MDP avid lesions. Unchanged focally increased tracer activity in the left maxilla,consistent with dental disease. Normal activity is present in the kidneys and urinary bladder. IMPRESSION 1. Stable appearance of MDP avid osseous metastases involving the sternumand manubrium. 2. No other MDP avid osseous metastasis. I have personally reviewed the image(s) and the resident's interpretationand agree with the findings, David Jack MD at 03/09/2024 6:12 AM Thank you for letting us participate in the care of this patient. If youare a health care provider and have any questions regarding this report,please contact the number below. For patients who have questions please contactthe health transitional care liaison that requested your imaging first. Consuelo Joyce COMMODITY MANAGER IMG NM ORDERABLES * Mammo Diagnostic CAD and [place] Bilateral (11/07/2023 4:28 PM EDT) WORKSTATION ID [id number] RAD Anatomical Region Laterality Modality Breast Bilateral Mammography Impressions 11/07/2023 5:35 PM EDT Residual focal asymmetry and calcifications at the site of right breast cancer MANAGEMENT: Continued treatment FINAL ASSESSMENT: BI-RADS Category 6: Known Biopsy-Proven Malignancy Thank you for letting us participate in the care of this patient. ??If you are a health care provider and have any questions regarding this report, please contact the number below. ??For patients who have questions please contact the health transitional care liaison that requested your imaging first. ? Electronically signed by: Madina Gardner MD, [facility] ([phone]), at 11/07/2023 5:35 PM Narrative 11/07/2023 5:35 PM EDT EXAMINATION: MAMMO DIAGNOSTIC CAD AND [place] BILATERAL CLINICAL HISTORY: assess residual calcifications and possible biopsy target TECHNIQUE AND VIEWS OBTAINED: CC and MLO views were obtained of BOTH breasts. 2D and 3D tomosynthesis images were obtained. Computer aided detection was used. COMPARISON: Right diagnostic mammogram dated 06/23/2022. No prior left mammograms are available for comparison BREAST DENSITY: There are scattered areas of fibroglandular density. FINDINGS: Within the left breast, there are no suspicious masses, asymmetries, calcifications, areas of distortion concerning for malignancy. Within the right breast, previously seen mass is no longer visualized however there is focal asymmetry at the site of the biopsy clip. There is been interval decrease in the number of associated calcifications although several residual calcifications are noted superolaterally and anterior to the biopsy clip. Susana Estrada MD IMG MAMMO ORDERABLE S from Last 3 Months or Most Recently Relevant to Health Maintenance Advance Directives * Attempt Cardiopulmonary Resuscitation - Inpatient (Latest Code Status on File) Date Activated Date Inactivated Comments 11/04/2022 1:12 PM 11/05/2022 4:36 AM Question Answer Comments Code Status decision made by: Patient * Attempt Cardiopulmonary Resuscitation - Inpatient Date Activated Date Inactivated Comments 09/10/2022 7:11 AM 09/11/2022 4:34 AM Question Answer Comments Code Status decision made by: Patient * Attempt Cardiopulmonary Resuscitation - Inpatient Date Activated Date Inactivated Comments 09/01/2022 7:56 AM 09/02/2022 4:35 AM Question Answer Comments Code Status decision made by: Patient * Attempt Cardiopulmonary Resuscitation - Inpatient Date Activated Date Inactivated Comments 08/12/2022 7:01 AM 08/13/2022 4:34 AM Question Answer Comments Code Status decision made by: Patient Care Teams Security Screener Relationship Specialty Start Date End Date Ryan Betancourt MD [address] [place] [phone] PCP - General Family Medicine 07/29/22
--- OUTSIDE RECORDS SUMMARY | 2024-06-01 20:35 | XMS_ITS | Encounter Summary ---
Author Organization [facility] Address [facility] [place] [address] Care Team Providers Care Research & Analytics Manager Name Role Phone Ryan Betancourt MD Primary Care Provider [phone] Encounter Details Date Type Department Care Team (Latest Contact Info) Description 05/24/2024 Travel Social History Tobacco Use Types Packs/Day Years Used Date Smoking Tobacco: Former Cigarettes 0.3 1 1 996 - 1996 Smokeless Tobacco: Never Alcohol Use Standard Drinks/Week Comments Not Currently [...] place to sleep or slept in a group home (including now)? No 07/29/2022 Sex and Gender Information Value Date Recorded Sex Assigned at Not on file Gender Identity Not on file Sexual Orientation Not on file documented as of this encounter Plan of Treatment Upcoming Encounters Date Type Department Care Team (Late st Contact Info) Description 06/14/2024 8:00 AM EST Hospital Encounter [place] [phone] Consuelo Joyce APRN [facility] [place] [address] 06/14/2024 8:45 AM EST Appointment XRay at [address] [place] [address] Kavitha Rai MD [facility] [place] [address] 06/14/2024 9:45 AM EST Appointment Hematology [place] [address] 06/14/2024 11:00 AM EST Appointment [place] [address] Consuelo Joyce APRN [facility] [place] [address] 06/14/2024 1:00 PM EST Office Visit Hematology [place] [address] Kavitha Rai MD [facility] [place] [address] 06/14/2024 2:30 PM EST Appointment Hematology [place] [address] 07/05/2024 10:30 AM EDT Appointment Hematology and Oncology at [place] [phone] 07/05/2024 11:30 AM EDT Office Visit Hematology and Oncology at [place] [phone] Consuelo Joyce APRN [facility] [place] [address] 07/05/2024 1:00 PM EDT Appointment Hematology and Oncology at [place] [address] 08/16/2024 9:20 AM EDT Office Visit Ophthalmology at [place] [phone] Luz Jose, OD [facility] [place] [address] 01/14/2025 8:30 AM EDT Office Visit Psychiatry and Behavioral Health at [place] [phone] Anna Oneill, PhD [facility] [place] [address] documented as of this encounter Visit Diagnoses Not on filedocumented in this encounter Care Teams Research & Analytics Manager Relationship Specialty Start Date End Date Ryan Betancourt MD [address] [place] [phone] PCP - General Family Medicine 07/29/22 documented as of this encounter
--- OUTSIDE RECORDS SUMMARY | 2024-06-01 20:35 | XMS_ITS | Encounter Summary ---
[place] [address] Care Team Providers Care Online Publisher Name Role Phone Ryan Betancourt MD Primary Care Provider [phone] Reason for Visit * Treatment/Therapy Plan Authorization (Routine) - Authorized Specialty Diagnoses / Procedures Referred By Contdede t Referred To Contact Hematology and Oncology Diagnoses Malignant neoplasm of overlapping sites of right breast in female, estrogen receptor negative Consuelo Joyce APRN [facility] [place] [address] [facility] [address] [place] [address] Referral ID Status Reason Start Date Expiration Date V isits Requested Visits Authorized [id number] Authorized 11/03/2023 2024 99 108 Encounter Details Date Type Department Care Team (Latest Contact Info) Description 05/24/2024 8:30 AM EST Hospital Encounter [place]ematology [place] [address] Malignant neoplasm of overlapping sites of right breast in female, estrogen receptor negative Discharge Disposition: Home Social History Tobacco Use Types Packs/Day Years Used Date Smoking Tobacco: Former Cigarettes 0.3 1 1 - 1996 Smokeless Tobacco: Never Alcohol Use Standard Drinks/Week Comments Not Currently 4 (1 standard drink = 0.6 oz pure alcohol) not drinking x 2 months since chemo Overall Financial Resource Strain (CARDIA) Harley r Date Recorded How hard is it [...] place to sleep or slept in a snf (including now)? No 07/29/2022 Sex and Gender Information Value Date Recorded Sex Assigned at Not on file Gender Identity Not on file Sexual Orientation Not on file documented as of this encounter Medications at Time of Discharge Medication Sig Dispensed Refills Start Date End Date ondansetron (Zofran) 8 mg tabletIndications:Clara rach neoplasm of overlapping sites of right breast in female, estrogen receptor negative,Malignant neoplasm of right breast in female, estrogen receptor negative, unspecified site of breast,HER2-positive carcinoma of breast Take 1 tablet by mouth every 8 hours as needed for Nausea. 30 tablet 3 05/03/2024 Sodium Fluoride (Clinpro 5000) 1.1 % Paste BRUSH TEETH DIRECTED BY PROVIDER 12/19/2023 hydrocortisone 2.5 % CreamIndications:Regan sol neoplasm of overlapping sites of right breast in female, estrogen receptor negative,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 Mix equal amounts of both creams and apply mixture topically to affected areas on the pannus, feet and breasts twice daily for 2 weeks as needed. 30 g 1 12/30/2023 ketoconazole (Nizoral) 2 % CreamIndications:Regan sol neoplasm of overlapping sites of right breast in female, estrogen receptor negative,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 Mix equal amounts of both creams and apply mixture topically to affected areas on the pannus, feet and breasts twice daily for 2 weeks as needed. 30 g 1 12/30/2023 oxyCODONE-acetaminophe n (Percocet) 5-325 mg tablet Take 1 tablet by mouth every 4 hours as needed for Pain. PRN only when needed lidocaine-prilocaine (EMLA) CreamIndications:Regan sol neoplasm of overlapping sites of right breast in female, estrogen receptor negative,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 Apply topically 60 minutes prior to accessing port. Apply a thick layer of cream to designated site of intact skin. Cover site with occlusive dressing. 30 g 1 12/15/2023 omeprazole (PriLOSEC) [address] capsuleIndications:Mal ignant neoplasm of overlapping sites of right breast in female, estrogen receptor negative,Deformity of nail bed,Gastroesophageal reflux disease, unspecified whether esophagitis present Take 1 capsule by mouth daily. 90 capsule 3 09/22/2023 09/21/2024 prochlorperazine (Compazine) 10 mg tablet Take 1 tablet by mouth every 6 hours as needed for Nausea. 30 tablet 3 10/04/2022 multivitamin Capsule Take 1 capsule by mouth daily. betamethasone dipropionate (Diprolene) 0.05 % Cream Apply topically 2 times daily. 30 g 08/25/2022 documented as of this encounter Progress Notes * Serenity Cespedes RN - 05/24/2024 8:55 AM EST Patient Name: Soy San Patient Age: 43 y.o. Birthdate: 1980 Admit date: 05/24/2024 Attending Physician: No att. providers found Access visit. See MAR and/or flowsheet. documented in this encounter Plan of Treatment Upcoming Encounters Date Type Department Care Team (Late st Contact Info) Description 06/14/2024 8:00 AM EST Hospital Encounter Nuclear Medicine at [place] [phone] Consuelo Joyce APRN [facility] [place] [address] 06/14/2024 8:45 AM EST Appointment XRay at [address] [place] [phone] Kavitha Rai MD [facility] DR HEMATOLOGY [place] [address] 06/14/2024 9:45 AM EST Appointment Hematology and Oncology at [address] 06/14/2024 11:00 AM EST Appointment Nuclear Medicine at [place] [address] Consuelo Joyce APRN [facility] [place] [address] 06/14/2024 1:00 PM EST Office Visit Hematology and Oncology at [place] [phone] Kavitha Rai MD [facility] DR HEMATOLOGY [place] [address] 06/14/2024 2:30 PM EST Appointment Hematology [place] [address] 07/05/2024 10:30 AM EDT Appointment Hematology and Oncology at [place] [phone] 07/05/2024 11:30 AM EDT Office Visit Hematology and Oncology at [place] [phone] Consuelo Joyce APRN [facility] [place] [address] 07/05/2024 1:00 PM EDT Appointment Hematology and Oncology at [place] [address] 08/16/2024 9:20 AM EDT Office Visit Ophthalmology at [place] [phone] Luz Jose, OD [facility] [place] [address] 01/14/2025 8:30 AM EDT Office Visit Psychiatry and Behavioral Health at [place] [phone] Anna Oneill, PhD [facility] [place] [address] Scheduled Orders Name Type Priority Associated Diagnoses Orde r Schedule CEA Lab Routine Malignant neoplasm of overlapping sites of right breast in female, estrogen receptor negative Every 3 weeks for 15 Occurrences starting 05/24/2024 until 05/24/2025, 1 completed documented as of this encounter Procedures Procedure Name Priority Date/Time Associated Diagnosis Comments CANCER ANTIGEN 15-3 STAT 05/24/2024 8 :54 AM EST Malignant neoplasm of overlapping sites of right breast in female, estrogen receptor negative CBC (WITH DIFF) STAT 05/24/2024 8:54 AM EST Malignant neoplasm of overlapping sites of right breast in female, estrogen receptor negative CEA Routine 05/24/2024 8:54 AM EST Malignant neoplasm of overlapping sites of right breast in female, estrogen receptor negative COMPREHENSIVE METABOLIC PANEL STAT 05/24/2024 8:54 AM EST Malignant neoplasm of overlapping sites of right breast in female, estrogen receptor negative documented in this encounter Results * (ABNORMAL) Cancer antigen 15-3 (05/24/2024 8:54 AM EST) CA 15-3 33(H) <=25 unit/mL 05/24/2024 10:47 AM [facility] Comment:This result was gene rated using a Deepak Dequan immunoassay. Results obtained from other methods or manufacturers cannot be used interchangeably with this method. Blood VENOUS BLOOD SPECIMEN / Unknown Mediport Line / Unknown 05/24/2024 8:54 AM EST 05/24/2024 9:02 AM EST Kavitha Rai MD CHEMISTRY ORDERABLES [facility] [place] [address] * (ABNORMAL) Comprehensive metabolic panel (05/24/2024 8:54 AM EST) Glucose 109 65 - 199 mg/dL 05/24/2024 9:36 AM [facility] Comment:Glucose Concentratio n >=200 mg/dL plus symptoms is consistent with Diabetes Mellitus. Blood Urea Nitrogen 12 8 - 18 mg/dL 05/24/2024 9:36 AM [facility] Creatinine 0.78 0.70 - 1.20 mg/dL 05/24/2024 9:36 AM [facility] Sodium 141 135 - 145 mMol/L 05/24/2024 9:36 AM [facility] Potassium 3.2(L) 3.5 - 5.0 mMol/L 05/24/2024 9:36 AM [facility] Chloride 106 98 - 107 mMol/L 05/24/2024 9:36 AM [facility] Carbon Dioxide 27 22 - 31 mMol/L 05/24/2024 9:36 AM [facility] Anion Gap 8 5 - 15 mMol/L 05/24/2024 9:36 AM [facility] Calcium 9.3 8.5 - 10.5 mg/dL 05/24/2024 9:36 AM [facility] Protein, Total 7.3 6.1 - 8.0 g/dL 05/24/2024 9:36 AM [facility] Albumin 3.6 3.2 - 5.2 g/dL 05/24/2024 9:36 AM [facility] Aspartate Aminotransferase 45(H) <=30 unit/L 05/24/2024 9:36 AM [facility] Alanine Aminotransferase 42(H) 0 - 30 unit/L 05/24/2024 9:36 AM [facility] Alkaline Phosphatase 78 35 - 105 unit/L 05/24/2024 9:36 AM [facility] Bilirubin, Total 0.4 <=1.3 mg/dL 05/24/2024 9:36 AM [facility] Est Glomerular Filtration Rate - Female 96 mL/min/1. 73 m?? 05/24/2024 9:36 AM [facility] Comment: This patient's estimated GFR was [...] Foundation Fasting Status No 05/24/2024 9:36 AM [facility] Blood VENOUS BLOOD SPECIMEN / Unknown Mediport Line / Unknown 05/24/2024 8:54 AM EST 05/24/2024 9:02 AM EST Kavitha Rai MD CHEMISTRY ORDERABLES [facility] [place] [place] [address] * (ABNORMAL) CBC (with Diff) (05/24/2024 8:54 AM EST) White Blood Cell 4.85 4.00 - 9.50 x10(3)/mc L 05/24/2024 9:11 AM [facility] Red Blood Cell 5.03 4.00 - 5.21 x10(6)/mc L 05/24/2024 9:11 AM [facility] Hemoglobin 13.0 11.7 - 15.5 g/dL 05/24/2024 9:11 AM [facility] Hematocrit 39.8 35.7 - 45.8 % 05/24/2024 9:11 AM [facility] Mean Cell Volume 79.1(L) 82.6 - 94.4 fL 05/24/2024 9:11 AM [facility] Mean Cell Hemoglobin 25.8(L) 27.1 - 32.0 pg 05/24/2024 9:11 AM [facility] Mean Cell Hemoglobin Concentration 32.7 31.7 - 35.0 g/dL 05/24/2024 9:11 AM [facility] Platelet 143(L) 145 - 357 x10(3)/mc L 05/24/2024 9:11 AM [facility] Mean Platelet Volume 9.7 7.6 - 12.9 fL 05/24/2024 9:11 AM [facility] RDW Standard Deviation 44.0 37.0 - 46.0 fL 05/24/2024 9:11 AM [facility] RDW coefficient of variation 15.4(H) 11.5 - 14.1 % 05/24/2024 9:11 AM [facility] NRBC% auto 0.0 % 05/24/2024 9:11 AM [facility] NRBC Absolute <0.01 <0.01 x10(3)/mc L 05/24/2024 9:11 AM [facility] Neutrophil % 55.6 % 05/24/2024 9:11 AM [facility] Neutrophil Absolute (ANC) - Automated 2.70 1.70 - 6.10 x10(3)/mc L 05/24/2024 9:11 AM [facility] Lymph % 32.2 % 05/24/2024 9:11 AM [facility] Lymph Absolute 1.56 0.90 - 3.20 x10(3)/mc L 05/24/2024 9:11 AM [facility] Monocyte % 8.5 % 05/24/2024 9:11 AM [facility] Monocyte Absolute 0.41 0.30 - 0.90 x10(3)/mc L 05/24/2024 9:11 AM [facility] Eos % 3.1 % 05/24/2024 9:11 AM [facility] Eos Absolute 0.15 0.00 - 0.40 x10(3)/mc L 05/24/2024 9:11 AM [facility] Basophil % 0.4 % 05/24/2024 9:11 AM [facility] Baso Absolute <0.04 0.00 - 0.10 x10(3)/mc L 05/24/2024 9:11 AM [facility] Immature Gran % 0.2 % 9:11 AM [facility] Immature Gran Absolute <0.04 0.00 - 0.04 x10(3)/mc L 05/24/2024 9:11 AM [facility] Blood VENOUS BLOOD SPECIMEN / Unknown Mediport Line / Unknown 05/24/2024 8:54 AM EST 05/24/2024 9:02 AM EST Kavitha Rai MD HEMATOLOGY ORDERABLE S [facility] [place] [address] * (ABNORMAL) CEA (05/24/2024 8:54 AM EST) Carcinoembryonic Antigen 7.7(H) <=3.8 ng/ml 05/24/2024 10:47 AM [facility] Comment: Some smokers may have elevated CEA, generally < 5.5 ng/mL. This result was generated using a Deepak Dequan immunoassay. ??Results obtained from other methods or manufacturers cannot be used interchangeably with this method. Blood VENOUS BLOOD SPECIMEN / Unknown Mediport Line / Unknown 05/24/2024 8:54 AM EST 05/24/2024 9:02 AM EST Kavitha Rai MD CHEMISTRY ORDERABLES [facility] [place] [place] [address] documented in this encounter Visit Diagnoses Diagnosis Malignant neoplasm of overlapping sites of right breast in female, estrogen receptor negative documented in this encounter Administered Medications Inactive Administered Medications - up to 3 most recent administrations Medication Order MAR Action Action Date Dose Rate Site sodium chloride 0.9 % (flush) (BD PosiFlush Normal Saline 0.9) flush 5-20 mL 5-20 mL, Intravenous, EVERY 1 MIN PRN, Starting on Yvette 05/24/24 at 0838, Until Tue05/25/24 at 0434, Line Care, Flush pertains to all indwelling lines. Flush per protocol found in the job aid using the link provided on this medication record. Refer to Intravenous (IV) Job Aid: Adult Flushing & Catheter Care (7500) job aid for additional information regarding guidelines and administration., Routine Given 05/24/2024 8:54 AM EST 20 mLs documented in this encounter Care Teams Online Publisher Relationship Specialty Start Date End Date Ryan Betancourt MD [address] [place] [phone] PCP - General Family Medicine 07/29/22 documented as of this encounter
--- OUTSIDE RECORDS SUMMARY | 2024-06-01 20:35 | XMS_ITS | Encounter Summary ---
Author Organization [facility] [place] [address] Care Team Providers Care Home Aid Name Role Phone Ryan Betancourt MD Primary Care Provider [phone] Reason for Visit * Treatment/Therapy Plan Authorization (Routine) - Authorized Specialty Diagnoses / Procedures Referred By Contac t Referred To Contact Hematology and Oncology Diagnoses Malignant neoplasm of overlapping sites of right breast in female, estrogen receptor negative Consuelo Joyce APRN [facility] [place] [address] [phone] Referral ID Status Reason Start Date Expiration Date V isits Requested Visits Authorized [id number] Authorized 11/03/2023 2024 99 108 Encounter Details Date Type Department Care Team (Latest Contact Info) Description 05/24/2024 8:30 AM EST - 05/24/2024 2:22 PM EST Hospital Encounter Hematology [place] [address] Malignant neoplasm of overlapping sites [...] since chemo Overall Financial Resource Strain (CARDIA) Gene r Date Recorded How hard is it [...] place to sleep or slept in a halfway (including now)? No 07/29/2022 Sex and Gender Information Value Date Recorded Sex Assigned at Not on file Gender Identity Not on file Sexual Orientation Not on file documented as of this encounter Medications at Time of Discharge Medication Sig Dispensed Refills Start Date End Date ondansetron (Zofran) 8 mg tabletIndications:Clara loyd neoplasm of overlapping sites of right breast [...] as of this encounter Progress Notes * Kenzie Reyes RN - 05/24/2024 1:13 PM EST Patient Name: Soy San Patient Age: 43 y.o. Birthdate: 1980 Admit date: 05/24/2024 Attending Physician: No att. providers found Soy San, 43 y.o. female with diagnosis of 1. Malignant neoplasm of overlapping sites of right breast in female, estrogen receptor negative is here for chemotherapy infusion of Kadcya. PROTOCOL: N/a CYCLE: 9 WEEK: N/a DAY: 1 S: Patient agreeable to treatment today with no present questions or concerns. Reviewed plan of care for infusion visit, patient verbalized understanding of plan as outlined. Patient encouraged to utilize call becerra for any needs, questions, or concerns as they arise during their infusion stay. O: Chemotherapy orders independently verified for correct drug name, route and dosage per patient'sheight, weight and BSA by Reynold Bush RN and onsite pharmacist REACTIONS (DESCRIPTION, TIME, INTERVENTION AND EFFECTIVENESS) None reported. Pt here for 30 minute post Kadcya observation without any difficulties noted. A: Pt. Tolerated treatment well. Soy San confirms that all questions and issues have been addressed. P: Return to clinic per protocol documented in this encounter Plan of Treatment Upcoming Encounters Date Type Department Care Team (Late st Contact Info) Description 06/14/2024 8:00 AM EST Hospital [place] [phone] Consuelo Joyce [facility] [place] [address] 06/14/2024 8:45 AM EST Appointment XRay at [address] [place] [address] Kavitha Rai MD [facility] [place] [address] 06/14/2024 9:45 AM EST Appointment Hematology [place] [address] 06/14/2024 11:00 AM EST [place]oint[place] [address] Consuelo Joyce [facility] [place] [address] 06/14/2024 1:00 PM EST Office Visit Hematology [place] [address] Kavitha Rai MD [facility] [place] [address] 06/14/2024 2:30 PM EST Appointment Hematology and Oncology at [place] [phone] 07/05/2024 10:30 AM EDT Appointment Hematology and [place]cology at [place] [address] 07/05/2024 11:30 AM EDT Office Visit [place]ematology [place] [phone] Consuelo Joyce APRN [facility] [place] [address] 07/05/2024 1:00 PM EDT Appointment Hematology and Oncology at [place] [phone] 08/16/2024 9:20 AM EDT Office Visit Ophthalmology at [place] [address] Luz Jose, OD [facility] [place] [address] 01/14/2025 8:30 AM EDT Office Visit Psychiatry and Behavioral Health at [place] [phone] Anna Oneill, PhD [facility] [place] [address] documented as of this encounter Visit Diagnoses Diagnosis Malignant neoplasm of overlapping sites of right breast in female, estrogen receptor negative documented in this encounter Administered Medications Inactive Administered Medications - up to 3 most recent administrations Medication Order MAR Action Action Date Dose Rate Site ado-TRASTuzumab emtansine (Kadcyla) 320 mg in sodium chloride 0.9% 266 mL infusion 320 mg (rounded from 336.3 mg = 3 mg/kg/dose ? 112.1 kg Treatment plan Recorded weight), Intravenous, ONCE, 1 dose, On Yvette 05/24/24 at 1345, Administer over 30 Minutes, Monitor patient for ado-TRASTuzumab emtansine infusion reactions 30 minutes after each subsequent dose if the first dose was well-tolerated., This agent is restricted to outpatient use. Is this drug being given as an outpatient? Yes New Bag 05/24/2024 1:10 PM EST 320 mg 532 mL/hr ondansetron (pf) (Zofran) (2 mg/mL) injection 8 mg 8 mg, Intravenous, ONCE, 1 dose, On Yvette 05/24/24 at 1330, Administer prior to chemotherapy. Given 05/24/2024 1:24 PM EST 8 mg sodium chloride 0.9% infusion 500 mL, Intravenous, ONCE, 1 dose, On Yvette 05/24/24 at 1245 New Bag 05/24/2024 12:33 PM EST 500 mLs documented in this encounter Care Teams Home Aid Relationship Specialty Start Date End Date Ryan Betancourt MD [address] [place] [phone] PCP - General Family Medicine 07/29/22 documented as of this encounter
--- OUTSIDE RECORDS SUMMARY | 2024-06-01 20:35 | XMS_ITS ---
Author Organization [facility] Address [facility] [place] [address] Care Team Providers Care Security Risk Analyst Name Role Phone Ryan Betancourt MD Primary Care Provider [phone] Active Problems Problem Noted Date Diagnosed Date Malignant neoplasm of overla pping sites of breast in female, estrogen receptor negative 07/29/2022 Current Oncology Plans Denosumab (Xgeva) Injection ([facility], [facility], [facility], [facility]) Every 6 Weeks* Plan Start Date:11/03/2023 Plan Provider:Consuelo Joyce APRN Linked Problems Malignant neoplasm of overla pping sites of right breast in female, estrogen receptor negative Treatment Medications No medications scheduled. [facility] ONC BREAST CANCER - ADO-TRASTuzumab EMTANSINE (KADCYLA)* Plan Start Date:11/24/2023 Plan Provider:Consuelo Joyce APRN Linked Problems Malignant neoplasm of overla pping sites of right breast in female, estrogen receptor negative Treatment Medications Current Day (Day 1 , Cycle 10 - Planned for 06/14/2024) Next Day (Day 1, Cycle 11 - Planned for 07/05/2024) ado-TRASTuzumab (Kadcyla) Recon Solnado-TRASTuzumab emtansine (Kadcyla) in sodium chloride 0.9% 250 mL infusion ado-TRASTuzumab emtansine (Kadcyla) 320 mg in sodium chloride 0.9% 266 mL infusion ado-TRASTuzumab emtansine (Kadcyla) 320 mg in sodium chloride 0.9% 266 mL infusion Past Plans ADULT TREATMENT Plan Name Start Date Discontinue Date Treatment Medications Discontinue Reason Plan Provider Cycles [facility] ONC BREAST CANCER - TRASTuzumab, PERTuzumab & HYALURONIDASE -ZZXF (PHESGO) SUBCUT 04/28/19 24 11/03/2023 PERTuzumab-TRASTuzum ab-hyaluronidase zzxf (Phesgo)PERTuzumab-T RASTuzumab-hyaluroni daze zzxf (Phesgo) Progression Kavitha Rai MD 10 of 18 cycles started [facility] AMB ONC BREAST CANCER - TRASTuzumab / PERTuzumab 3 04/07/2023 PERTuzumab (Perjeta) in sodium chloride 0.9% 250 mL infusionTRASTuzumab- anns (Kanjinti)TRASTuzuma b-anns (Kanjinti) in sodium chloride 0.9% 250 mL infusion Patient Preference Dian Lora PA 2 of 4 cycles started [facility] AMB ONC BREAST CANCER - TRASTuzumab, PERTuzumab & HYALURONIDASE -ZZXF (PHESGO) SUBCUT 3 12/23/2022 PERTuzumab-TRASTuzum ab-hyaluronidase zzxf (Phesgo) Remission Kavitha Rai MD 1 of 10 cycles started [facility] AMB ONC BREAST CANCER - DOCEtaxel / TRASTuzumab / PERTuzumab (JIMI) 3 12/21/2022 DOCEtaxeL (Taxotere) in sodium chloride 0.9% 250 mL infusionPERTuzumab (Perjeta) in sodium chloride 0.9% 250 mL infusionTRASTuzumab- anns (Kanjinti) in sodium chloride 0.9% 250 mL infusion Therapy Complete Kavitha Rai MD 6 of 6 cycles started Therapy Plan 1 Plan Name Start Date Discontinue Date Treatment Medications Discontinue Reason Plan Provider Denosumab (Xgeva) Injection ([facility], [place], [place], [facility] HemOnc) Every 6 Weeks 02/24/2023 11/01/2023 No medications scheduled. Plan is Being Renewed Kavitha Rai MD Radiation Treatments * No radiation treatments are documented for this patient in [facility]. Treatments may have been administered in another system.
--- OUTSIDE RECORDS SUMMARY | 2024-06-01 20:35 | XMS_ITS | Encounter Summary ---
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 Role Phone Ryan Betancourt MD Primary Care Provider [phone] Reason for Referral * Diagnostic Test (Routine) - Pending Review Specialty Diagnoses / Procedures Referred By Ciaran lopez Referred To Contact Radiology Diagnoses Malignant neoplasm of overlapping sites of right breast in female, estrogen receptor negative Malignant neoplasm of right breast in female, estrogen receptor negative, unspecified site of breast 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 Procedures CT Chest Abdomen Pelvis w Contrast (Generic) Consuelo Joyce APRN [facility] [place] [address] [facility] [place] [address] Referral ID Status Reason Start Date Expiration Date Visits Requested Visits Authorized [id number] Pending Review Specialty Service Requested 05/03/2024 10/31/2025 1 1 Reason for Visit * Diagnostic Test (Routine) - Pending Review Specialty Diagnoses / Procedures Referred By Contdede t Referred To Contact Radiology Diagnoses Malignant neoplasm of overlapping sites of right breast in female, estrogen receptor negative Malignant neoplasm of right breast in female, estrogen receptor negative, unspecified site of breast 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 Procedures CT Chest Abdomen Pelvis w Contrast (Generic) Consuelo Joyce APRN [facility] [place] [address] [facility] [place] [address] Referral ID Status Reason Start Date Expiration Date Visits Requested Visits Authorized [id number] Pending Review Specialty Service Requested 05/03/2024 10/31/2025 1 1 Encounter Details Date Type Department Care Team (Latest Contact Info) Description 05/24/2024 2:23 PM EST - 05/24/2024 11:59 PM EST Hospital Encounter CT Scan at [facility] [place] [address] Consuelo Joyce APRN [facility] [place] [address] Malignant neoplasm of overlapping sites of right breast in female, estrogen receptor negative; Malignant neoplasm of right breast in female, estrogen receptor negative, unspecified site of breast; 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 Discharge Disposition: Home Social History Tobacco Use Types Packs/Day Years Used Date Smoking Tobacco: Former Cigarettes 0.3 1 1 1996 Smokeless Tobacco: Never Alcohol Use Standard [...] g 08/25/2022 documented as of this encounter Plan of Treatment Upcoming Encounters Date Type Department Care Team (Late st Contact Info) Description 06/14/2024 8:00 AM EST Hospital Encounter [place] [address] Consuelo Joyce APRN [facility] [place] [address] 06/14/2024 8:45 AM EST Appointment XRay at [address] [place] [address] Kavitha Rai MD [facility] [place] [address] 06/14/2024 9:45 AM EST Appointment Hematology [place] [address] 06/14/2024 11:00 AM EST Appointment [place] [address] Consuelo Joyce APRN [facility] [place] [address] 06/14/2024 1:00 PM EST Office Visit Hematology [place] [address] Kavitha Rai MD [facility] DR HEMATOLOGY [place] [address] 06/14/2024 2:30 PM EST Appointment Hematology and Oncology at [place] [address] 07/05/2024 10:30 AM EDT Appointment Hematology and Oncology at [place] [address] 07/05/2024 11:30 AM EDT Office Visit Hematology and Oncology at [place] [address] Consuelo Joyce APRN [facility] [place] [address] 07/05/2024 1:00 PM EDT Appointment Hematology and Oncology at [place] [address] 08/16/2024 9:20 AM EDT Office Visit Ophthalmology at [place] [address] Luz Jose, OD [facility] [place] [address] 01/14/2025 8:30 AM EDT Office Visit Psychiatry and Behavioral Health at [place] [address] Anna Oneill, PhD [facility] [place] [address] documented as of this encounter Procedures Procedure Name Priority Date/Time Associated Diagnosis Comments CT CHEST ABDOMEN PELVIS W CONTRAST (GENERIC) Routine 05/24/2024 2:41 PM EST Malignant neoplasm of overlapping sites of right breast in female, estrogen receptor negative Malignant neoplasm of right breast in female, estrogen receptor negative, unspecified site of breast 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 documented in this encounter Results * CT Chest Abdomen Pelvis w Contrast (Generic) (05/24/2024 2:41 PM EST) WORKSTATION ID [id number] RAD Anatomical Region Laterality Modality Abdomen, Pelvis [...] who have questions please contact the health physician assistant primary care that requested your imaging first. ? Narrative [...] patients who have questions please contactthe health physician assistant primary care that requested your imaging first. Consuelo Joyce LINE PILOT IMG CT ORDERABLES documented in this encounter Visit Diagnoses Diagnosis Malignant neoplasm of overlapping sites of right breast in female, estrogen receptor negative Malignant neoplasm of right breast in female, estrogen receptor negative, unspecified site of breast 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 documented in this encounter Administered Medications Inactive Administered Medications - up to 3 most recent administrations Medication Order MAR Action Action Date Dose Rate Site iohexoL (Omnipaque) (350 mg/mL) solution 0-200 mL 0-200 mL, Intravenous, ONCE PRN, 1 dose, Starting on Yvette 05/24/24 at 1432, Until Yvette 05/24/24 at 1432, Per Protocol, Warning Vesicant/Irritant Medication , Radiology Contrast, Routine Given 05/24/2024 2:32 PM EST 120 mLs iohexoL (Omnipaque) (350 mg/mL) solution 0-50 mL 0-50 mL, Oral, ONCE, 1 dose, On Yvette 05/24/24 at 1530, Warning Vesicant/Irritant Medication , Radiology Contrast, Routine Given 05/24/2024 3:30 PM EST 50 mLs documented in this encounter Care Teams Mine Car Repairer Relationship Specialty Start Date End Date Ryan Betancourt MD [address] [place] [phone] PCP - General Family Medicine 07/29/22 documented as of this encounter
--- OUTSIDE RECORDS SUMMARY | 2024-06-01 20:35 | XMS_ITS | Encounter Summary ---
Author Organization [facility] Address [facility] [place] [address] Care Team Providers Care Security Test Engineer Name Role Phone Ryan Betancourt MD Primary Care Provider [phone] Reason for Visit * Reason Comments Follow-up Encounter Details Date Type Department Care Team ([facility] st Contact Info) Description 05/24/2024 10:00 AM EST Office Visit Hematology [place] [address] Kavitha Rai MD [facility] DR HEMATOLOGY [place] [address] Malignant neoplasm of overlapping sites of right breast in female, estrogen receptor negative; HER2-positive carcinoma of breast Social History Tobacco Use Types Packs/Day Years Used Date Smoking Tobacco: Former Cigarettes 0.3 1 1 6 - 1996 Smokeless Tobacco: Never Alcohol Use [...] place to sleep or slept in a longterm (including now)? No 07/29/2022 Sex and Gender Information Value Date Recorded Sex Assigned at Not on file Gender Identity Not on file Sexual Orientation Not on file documented as of this encounter Last Filed Vital Signs Vital Sign Reading [...] Mass Index 41.23 05/24/2024 10:29 AM EST documented in this encounter Progress Notes * Kavitha Rai MD - 05/24/2024 10:00 AM EST Patient ID: Soy San is a 43 y.o. 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 She is s/p THP x6 with excellent clinical response and is on H and P alone since 12/23/2022-09/2023 with oligoprogression in breast. She is on xgeva with a plan for every 6 weeks started 02/24/2023. On TDM1 and xgeva ( last xgeva 04/23/2024) Overall feels well. Imaging today Still with intermittent breast pain:much less than prior. CIPN: nail beds lifting up. Had migraine over last cycle: Bowels normal Vision: blurry at times. Intermittent. Seeing regular optho in 3 weeks. Scheduled with optho in August. 05/03/2024 On TDM1 Tired today, About a week ago started walking up a few times during the night, mostly to pee but not drinking a lot before bed. Falls right back to sleep. Urgency during the day too. Denies burning, has had to wear a pad for urgency incontinence for last few months Breast pain: yes, off and on, 1/10 scale, top of breast at 12 o'clock, in usual place Bowels: no diarrhea almost back to normal, more towards constipation CIPN: still there, did not like the alpa and stopped talking Vision: still blurry about the same, has appt in August here at and will see own Optho in May N/V: none! Markers CEA trending up, CT/BS Swallow test on 06/1404/10/2025 On TDM1 Breast pain: not really that bad Breast MRI 04/06: complete imaging response Bowels: didn't really pay attention so not bad. CIPN: little this AM driving down in snow otherwise no not really Blurry vision: still same, hasn't seen eye doctor yet, scheduled for August, seeing her regular eye doctor end of May N/V: none, didn't get sick at all this time. 03/22/2024 On TDM1 Breast Pain:prn oxycodone. Still present at about 10oc right breast . MRI today Recent URI: green/yellow phlegm, no fever and getting better. Constipation : resolved No CIPN Intermittently blurry vision: worse at night. Optho referral placed but no call yet. Some difficulty swallowing. Has lost some weight. Feels like things get stuck. CT CAP 03/08/2024: sclerotic lesions in the axial skeleton at the sites of prior metastases. BS 03/08/2024: stable No planned dental work: to restart xgeva today. 02/28/2024 TDM1 C5 N/V: not as much! Migraines: still frequent, 3-4 this cycle Breast pain: same as last time stabbing pain like a needle intermittent, usually just sore. Diarrhea: none, loose but not diarrhea. New skin lesion on right arm linear in nature, resolved today, will send picture Vision starting blur like a film on glasses. Jaw pain cramp constantly for 3-4 weeks, thought maybe it was related to Xgeva but unsure cause. Tooth still needs be pulled but dentist referred her to a specialist, thinks it might have abscess themouthwash is helping keep it uncontrolled. Hasn't seen specialist yet After 04/10 needs to switch back to after 9am. 02/07/2024 TDM1 C4 N/V: nausea, sometimes zofran, aiyana chews Migraines: decreased a little bit Breast stabbing pain ranges to achy pain, just about everyday. One new spot Denies other pain Period lasted for the last 2 weeks, missed 3-4 months of period before this prolonged period. Went almost a year after chemo before menses return and has been irregular even before chemo Stool lose 2x/day sometimes 3 01/17/2024 Seen in infusion TDM1 C3 3 mg/kg N/V: baseline wit migraines Migraines: Allergies, not usual for her this time of year, eyes get itchy and very watery like she almost can't see and a little blurriness. Using saline in nose. Tooth broke and will get pulled on 03/0112/30/2023 On TDM1, here for C2, delayed due to elevated LFTs Scheduling for this deferred tx was a challenge LFTs today are WNL, will follow TDM1 protocol as reviewed with Dr. Rai and dose reduced 3 mg/kg N/V: baseline with migraines Headaches: migraine this AM Tooth pulled: trying to save it on abx for it. Has a form from dentist will scan into chart for us to fill out Needs generic letter for insurance and others that she has cancer done today 12/15/2023 On TDM1. Here for cycle #2 Last xgeva 11/03/23. Received every 6 weeks ( not signed) Breast: feels pretty good and looks the best it has looked in 8 months. A little achy here and there. LFTs elevated today N/V: some related to headache but some without. Zofran and compazine which help for the most part. 3 episodes of vomiting but wasn't on a schedule with meds. Diarrhea: not a big change from Phesgo Mouth sores: one right now starting canker sore like. Just one other one, swish with alcohol mouthwash. Headaches: last 3 weeks 4-5 headaches, Excedrin migraines works for most, worst was 4 day headache which was the weekend after and dealt with it at home Had tooth pain was on abx and pain has improved she will likely need a tooth pulled. 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 To start TDM1 today Tumor board suggested RT Just finished a round of abx (Augmentin) for a tooth infection for the pain but no change in pain, nervous about Ache/pain in breast has increased, needed to take a tylenol for the pain on Tuesday after last infusion N/V: more nauseous this last cycle, took zofran one day. Brain fog: seen some small changes, even small changes are scary. Playing word, number memory gamesand seeing a minor slow down. 11/03/2023 Oh Phesgo q 3 wks, xgeva q6 wks Recent biopsy of skin c/w breast cancer ER/IN- HER+ same as her other site of metastatic diease Reviewed next steps Breast continues to be more achy, cardoza, and sometimes feels like stabbing Very interested in surgery and would like to be able to get the cancer out of her breast. Vertigo: little bouts here and there Hot flashes:not as many LMP: 10/23- Diarrhea: denies but loose stools, no time of cramps. New weird symptom for last 9 weeks forgot to tell us: Nose runs while eating, about 9/10 times. Doesn't matter the food, hot/cold, mild/spicy it will run. 10/13/2023 On Phesgo q 3 weeks and xgeva q 6 weeks, due this visit (signed x 2 -every other cycle of H/P) Vertigo: none since last cycle Breast changes: progressive, biopsy today this AM, fullness LMP: denies menses, just started 2 days ago more discharge and feels like she may have menses again MRI brain: IMPRESSION No intracranial metastases. Normal evaluation. Hot flashes: decreasing Diarrhea: liquid 2x, very lose stools this whole cycle. K 3.4 today has not multi vitamin for a week 09/22/2023 On Phesgo q 3 weeks and xgeva q 6 weeks, due this visit (signed x 2 -every other cycle of H/P) Vertigo: improving. No big dizzy spells Breast changes:progressive. ( Picture taken on phone) LMP no more menses MRI brain :pending, done yesterday Derm to biopsy breast-not scheduled yet Hot flashes Occasional diarrhea - at most 3 x per cycle Going to [employer] for vacation. 09/01/2023 On Phesgo q 3 weeks and xgeva q 6 weeks, due next visit (every other cycle of H/P) Xgeva last 08/11/23 due next visit Since last visit: dizzy Started Tuesday: woke up with room spinning around her mostly with turning her head . Got better during the day. Recommended to go to ED but was unable. Tuesday was fine. The vertigo comes and goes. It goes on for about 3 weeks. Some recent difficulty swallowing pills and feels that a little bit more choking when drinking. FSH /estradiol: probably perimenopausal Diarrhea Breast changes: 08/11/2023 On Phesgo and xgeva q 6 weeks, due next visit (every other cycle of H/P) Xgeva last 06/30/23 due next today Curious about insurance paperwork from 06/[address] Rai. Message sent to [facility] and Dr. Rai to f/u Breast discomfort: littler here and there The spot on breast changes from day to day, yesterday it was really red but today looks better. Diarrhea: 3-4x over the last few weeks, a little more then usual, did not take imodium, usually lasts the entire day, denies urgency, resolves by the next day. Menses: on 07/22 last about a week. Moderate to heavy. Hot flashes: every day notice more at night, waking at night and not sure if due to hot flashes or for another reason and just happen to have one. 07/21/2023 On Phesgo and xgeva q 6 weeks, due next visit (every other cycle of H/P) Xgeva last 06/30/23 due next 08/10 Breast discomfort: Better than it was, lessened since last cycle 1-2 days during the cycle Diarrhea: always, last throughout, here or there, first bout was week after, just one day and let'sit past, does not need medicaiton Hot flashes: gotten better, 1-2 mild Menses: still have not had any, clear mucus-y discharge and no cramping, had estradiol and fsh today, pending Using black cohosh could be helping to improve hot flashes as well, 80 mg/day After last cycle had a few days of cold/flu like symptoms, reports low grade fever which lasted about a day. Had one day where she felt really bad like she got hit by a truck denies congestion, admits a cough which has improved. Tooth issue: dentist said it looks like teeth grinding is the reason for discomfort and sensitive 06/30/2023 On Phesgo and xgeva q 6 weeks, due next visit (every other cycle of H/P) Xgeva last 05/19/2023 ( signed) Some breast discomfort last visit: evaluation including MRI of breasts, CT CAP and BS all with SD 06/23/2023: MRI breast: Persistent 3 cm area of NME, 2. Continued resolution of right axillary adenopathy. 3. Decrease in enhancement of the sternal lesion. 06/23/2023:CT CAP: no evidence of new or recurrent disease. Bone mets continue to heal. Tiny hypodense foci at prior sites of liver mets. 06/23/2023: BS: Diffuse MDP avidity throughout the sternum and manubrium correlating with mild diffuse sclerosis on same-day CT and which was the location of diffusely FDG avid osseous metastasis abnormal PET/CT of 07/28/2022. This area was not FDG avid on PET/CT of 04/07/2023, and favored to represent treated metastasis with the diffuse MDP avidity representing post treatment remodeling. Still with some breast discomfort- happened twice last week Phesgo: Grade 1 to 2 diarrhea once or two days per cycle Hot flashes No menses 06/09/2023 On Phesgo and xgeva q 6 weeks, due next visit (every other cycle of H/P)( treat hit) Xgeva last 05/19/2023 Staring to have pain in right breast again Diarrhea: perists for one or two days post injection. Also with erythema at injection site. Dental: thinks allergic to metal in partial denture. When doesn't wear it, no pain or discomfort. Tumor markers stable. Will shift to Cts in June Stopped gabapentin ( was on for HF) bec didn't like hte way she felt with it. Helped a little bit with HF. 05/19/2023 On Phesgo and xgeva q 6 weeks, due today (every other cycle of H/P) Toothache: has not seen dentist, but seeing them for a cleaning 07/11/2023, will tell them at that time. not currently hurting since last visit Diarrhea: still have it 1-2 days, usually about a week after injection, 1 day this time. Does no take imodium Reports new a month or so of feeling like there is anal leakage, with every fart and then it feels wet. Very uncomfortable, feels like she has to go to the bathroom and wipe all over again. , cathyshkellen has hemorrhoids as well. Stopped taking alpa, didn't like how it made her feel. Night sweats have increased. Breasts doing better, saw dermatology in November Right breast started aching, dull ache Tuesday and Tuesday, like it did originally w/ dx. 04/28/2023 On herceptin/perjeta (Phesgo) and xgeva q 6 weeks ( every other cycle of H/P). Today is first phesgo. Dull ache for toothache. At last visit was intermittent. Will see dentist just hasn't had time. Diarrhea again after last H/P infusion. 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 PET CT 04/07/2023: without evidence of disease. 04/07/2023 On herceptin/perjeta (IV, insurance denial on Phesgo) and xgeva q 4 weeks (signed). PET CT today. She is having diarrhea after the infusion that last for ~3 days. She denies mucous or blood. She denies abdominal pain. This is unchanged. No fever or chills. Hot flushes: about 2-3 during the day and 1-2 at night. Much improved on gabapentin. Denies tingling, numbness. She is having headaches but not migraines. These are more frequently in the morning, 6-7 out of 10 in intensity, that resolved with ibuprofen. Sometimes she takes Tylenol if nausea is present. This is unchanged overtime. She denies SOB, chest pain. She has a rash in both breasts, like yeasty-like. She is using topic creams. 03/17/2023 Here for herceptin/perjeta (IV,insurance denial on phesgo). and xgeva q 4 weeks ( signed) Not sleeping well. Haile muro has helped a lot but still a lot Bilateral hip achiness and she thinks it is her bed. PET CT in 3 weeks. Echo today: EF 61% Got a letter from insurance company that something was approved but not sure what. 02/24/2023 Here for herceptin/perjeta (IV). Insurance denial on phesgo. To start xgeva today. Post THP scans: PET CT 11/23/2022: near CR near complete resolution of metabolic uptake of the multiple right breast masses, improved skin thickening, resolution of extensive adenopathy, and Resolution of metabolically active hepatic metastases. There has been healing of multiple bone metastases with sclerotic lesions 2. MRI breast 01/11/2023: Right breast: UOQ: 3.3 cm NME. Resolved right axillary Lns 3. Markers: normalized CEA and marked reduction in CA15-3 Hair growing back. Taxotere nails. Grade 1 PN in toes ( numbness) No pain. Some skin changes on right breast Plan to move in the summertime Hot flashes: bhaskar Saw dentist and no invasive dental work planned. 02/03/23 Here for trastuzumab/pertuzumab (HP) cycle 1 day 43 (3rd treatment). Reviewed breast MRI with Soo. Discussion regarding possible tumor resection and need for evaluationby Dr. Estrada. Needs referral to derm for her nails. Nails are brittle, cracked, and tender. Pain - 90% resolved in legs and arms. No new sites. Muscle and eye twitches ongoing. Dehydrated - living on gatorade and popsicles during chemo due to nausea. Starting drinking wateragain but still catching up. Hair not growing back yet. Has not tried gabapentin for hot flashes because she heard about side effects. She is having 8-10 hot flashes per day, and 4-5 per night. Lasting 2-6min. About 1/3 of the time it's severe. She is planning to try black cohosh. Occasional nausea and diarrhea (up to 1-2 loose stool), related to diet. Crampy maybe 1 day per cycle. No fevers, but does have chills. 12/23/22 Feels well. States last cycle of chemo went well. Saw derm earlier today. Rash in left inframammary& inguinal folds clearing up. Mild SOB when she exerts herself. No cough or leg swelling. Eating well. Mild nausea, no vomiting or diarrhea. No constipation. No neuropathy. Massive migraine a fewdays ago but she has h/o migraines. No mucositis. Breast Cancer History as follows: October 31, 2021 noted some right breast discomfort but did not notice a mass. The next day noted a lump in the right breast in the shower. Subsequently called [facility], seen that day. Examined and had a MMG and US. ( November 17) that showed a 3 cm mass in her right breast . 11/23/2021: right core biopsy: benign, told stromal fibrosis. Noted increase in size of mass over the next several months. At the end of May, insisted on seeing breast team because of increase in size and discomfort. Saw Dr Patino who sent her to . Imaging second read MMG and US:BI-RADS Category 5 06/23/2022 compared to 11/2021.MMG: right central breast: 5.3 cm ( inc from 4 cm prior) second smallermass anterior to it that measures 2.6 cm Right breast US: 5.6 cm right axilla measuring 3.5 cm and second smaller lymph node measuring 2.2 cm increasing thickening of the skin of the breast 07/06/2022: breast and right axillary LN biopsy Right breast Pathology: PD IDC + LVI ER negative IN negative Her 2 alexa amplified HER2 TO CEP-17 RATIO = 16.0 Right axilla, biopsy: High grade invasive ductal carcinoma Definite lymph node tissue is not seen. This may represent a lymph node that is completely replaced by tumor in these cores 07/28/2022: MRI Bilateral breast Right breast: right breast mass 10.5 cm, nipple inversion and skin thickening. Right LNs: at least 8 abnormal LNs in level 1/2, largest is 3.6 cm, [address], 1.4 cm right IMN Sternum: diffusely abnormal with heterogeneous enhancement throughout the body of the sternum as well as rim enhancement surrounding the sternum, some of which is nodular. There is a 1.2 cm mass extending from the mid body of the sternum. EOD: 1. Labs 07/28/2022: CBC WNL; CMP WNL with exception of alkphos 115 07/28/2022: PET CT:Multiple FDG avid masses and diffuse FDG avid dermal thickening in the right breast, consistent with primary breast malignancy. 2. Boogie metastases in the right supraclavicular, right axillary, bilateral hilar, bilateral mediastinal, and bilateral internal mammary regions. 3. Multiple hepatic metastases. 4. Multiple osseous metastases MRI Breast 06/23/2023 1. Persistent 3 cm area of nonmass enhancement in the right mid-upper breast at site of biopsy-proven malignancy. This may represent incomplete response with residual viable malignancy or posttreatment effect. 2. Continued resolution of right axillary adenopathy. 3. Decrease in enhancement of the sternal lesion. 4. Persistent, left inferior medial breast dermal enhancement, possibly inflammatory. Recommend correlation with physical exam. PET 06/23/2023 IMPRESSION 1. Diffuse MDP avidity throughout the sternum and manubrium correlating with mild diffuse sclerosis on same-day CT and which was the location of diffusely FDG avid osseous metastasis abnormal PET/CT of 07/28/2022. This area was not FDG avid on PET/CT of 04/07/2023, and favored to represent treated metastasis with the diffuse MDP avidity representing post treatment remodeling. 2. No other sites of suspected metastasis. METASTATIC BIOPSY : Has had two biopsies (liver and bone) to try to confirm mets, both negative. Both done after starting chemo-abs due to inability to schedule prior to starting treatment. CT guided biopsy of liver 09/01/[address] guided biopsy of bone 11/04/2022. METASTATIC TREATMENT: 08/18/2022-12/02/22: THP x 6 ( EF baseline 60%) 12/23/2022- Herceptin and perjeta alone 02/24/2023; xgeva started 04/28/2023: switch to phesgo 11/24/2023: TDM1 for oligoprogression in breast 12/15/2023: TDM1 held for grade 3 ALT and AST 12/30/2023: TDM1 dose reduced 3mg/kg and LFTs baseline GENETICS: Lety 07/2022: negative PMH: None PSH: tubal ligation 15 years ago MEDS: none ALL: none SH/FH Non smoker Very little ETOH 1 biological child, 22 (autistic and lives in [facility]) OCPs x many years (@ 10 years total ) and depot shot ( @ ) PGA: Breast Cancer: unknown exactly but thinks older Father : MM/amyloid MU: gastric 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 She appears well- developed and well-nourished. No distress. Head: Normocephalic. Eyes: Conjunctivae are normal. Pupils are equal, round, and reactive to light. Neck: Normal range of motion. Cardiovascular: Normal rate, regular rhythm and normal heart sounds. Pulmonary/Chest: Effort normal and breath sounds normal. Right breast: No discrete mass or axillary node. no skin lesions Left breast : No masses or nipple discharge Left mediport Abdominal: Soft. Bowel sounds are normal. There is no tenderness. Musculoskeletal: Normal range of motion. Extremities: no clubbing, cyanosis or edema Neurological: She is alert and oriented to person, place, and time. Gait normal. Skin: Skin is warm and dry. Taxotere nails Psychiatric: She has a normal mood and affect. Her behavior is normal. Results: Lab Results Component Value Date WBC 4.85 05/24/2024 HGB 13.0 05/24/2024 HCT 39.8 05/24/2024 MCV 79.1 (L) 05/24/2024 PLATELET 143 (L) 05/24/2024 Lab Results Component Value Date NEUTROABS 2.70 05/24/2024 Lab Results Component Value Date NA 141 05/24/2024 K 3.2 (L) 05/24/2024 CL 106 05/24/2024 CO2 27 05/24/2024 BUN 12 05/24/2024 CREATININE 0.78 05/24/2024 GLUCOSE 109 05/24/2024 CALCIUM 9.3 05/24/2024 ESTGFR 96 05/24/2024 Lab Results Component Value Date ALT 42 (H) 05/24/2024 AST 45 (H) 05/24/2024 ALKPHOS 78 05/24/2024 BILITOT 0.4 05/24/2024 ALBUMIN 3.6 05/24/2024 PROT 7.3 05/24/2024 Carcinoembryonic Antigen Date Value 05/03/2024 8.5 ng/ml (H) 04/10/2024 7.7 ng/ml (H) 03/20/2024 6.2 ng/ml (H) 02/28/2024 5.7 ng/ml (H) 02/07/2024 5.5 ng/ml (H) 11/03/2023 2.8 ng/mL 10/13/2023 2.4 ng/mL 09/22/2023 2.8 ng/mL 08/11/2023 2.3 ng/mL 07/21/2023 2.4 ng/mL CA 15-3 (unit/mL) Date Value 05/03/2024 36 (H) 04/10/2024 33 (H) 03/20/2024 33 (H) 02/28/2024 34 (H) 02/07/2024 34 (H) 11/03/2023 33 (H) 10/13/2023 28 (H) 09/22/2023 28 (H) 09/01/2023 30 (H) 08/11/2023 28 (H) . A/P: Soy San is a 43 y.o. female with likely denovo stage 4 Her 2 alexa enriched breast cancer with a locally advanced breast cancer on the right.She completed 6 cycles of THP (Ruthy regimen) Bone & liver bx negative though these were obtained after she began chemo due to inability to get an appointment. She has had an excellent clinical response to therapy and continued on H/P monotherapy until oligoprogression in breast. She was switched to TDM-1. Tolerating well howevertrending upward in CEA. Breast Cancer: TDM-1- OK to treat today - LFTs mild elevation today- but stable : will continue with dose reduce of TDM1 from 3.6 mg/kg to 3 mg/kg -Markers CA 15-3 stable, CEA trending up, reviewed with Dr. Rai will order CT/BS -Imaging appt today. - swallow study. Some dysphagia.scheduled for 06/14 - optho appt pending. -polybalm for nails 3. denosumab q6 weeks - with every other infusion, due in 3 weeks 4. Primary breast surgical consultation: Not recommended at this time per most recent tumor board discussion. RTC 3 weeks later with labs, MD/OBSTETRICS NURSE PRACTITIONER, and infusion Total time spent: 40 minutes with > 50% spend in discussion of above Future Appointments Date Time Provider Department Center 05/24/2024 11:00 AM [facility] [address] [place] [address] 05/24/2024 2:40 PM [facility] [address] [facility] RAD CT [facility] Rad 06/14/2024 8:00 AM [facility] NM ELIZA Nuc Med [facility] Rad 06/14/2024 8:45 AM [facility] [facility] 5 MH Xray [facility] Rad 06/14/2024 9:45 AM ACCESS ROOM [facility] INF [address] [place] [address] 06/14/2024 11:00 AM [facility] NM ROOM 3 MH Nuc Med [facility] Rad 06/14/2024 1:00 PM Kavitha Rai MD [facility] HEM ONC [facility] 06/14/2024 2:30 PM LEB INFUSION THERAPY [facility] INF [address] [place] [address] 07/05/2024 10:30 AM ACCESS ROOM [facility] INF [address] [place] [address] 07/05/2024 11:30 AM Consuelo Joyce APRN [facility] HEM ONC [facility] 07/05/2024 1:00 PM LEB INFUSION THERAPY [facility] INF [address] [place] [address] 08/16/2024 9:20 AM Luz Jose OD [facility] OPHT 4B [facility] 01/14/2025 8:30 AM Anna Oneill, PhD [facility] PSY 5D Behavioral H documented in this encounter Plan of Treatment Upcoming Encounters Date Type Department Care Team (Late st Contact Info) Description 06/14/2024 8:00 AM EST Hospital Encounter [place] [address] Consuelo Joyce [facility] [address] [place] [address] 06/14/2024 8:45 AM EST Appointment XRay at [address] [place] [address] Kavitha Rai MD [facility] DR HEMATOLOGY [place] [address] 06/14/2024 9:45 AM EST Appointment Hematology [place] [address] 06/14/2024 11:00 AM EST Appoint[place] [address] Consuelo Joyce [facility] [address] [place] [address] 06/14/2024 1:00 PM EST Office Visit Hematology [place] [address] Kavitha Rai MD [facility] DR HEMATOLOGY [place] [address] 06/14/2024 2:30 PM EST Appointment Hematology [place] [address] 07/05/2024 10:30 AM EDT Appointment Hematology [place] [address] 07/05/2024 11:30 AM EDT Office Visit Hematology [place] [address] Consuelo Joyce APRN [facility] [place] [address] 07/05/2024 1:00 PM EDT Appointment Hematology [place] [address] 08/16/2024 9:20 AM EDT Office Visit Ophthalmology at [place] [phone] Luz Jose, [facility] [place] [address] 01/14/2025 8:30 AM EDT Office Visit Psychiatry and Behavioral Health at [place] [phone] Anna Oneill, PhD [facility] [place] [address] documented as of this encounter Visit Diagnoses Diagnosis Malignant neoplasm of overlapping sites of right breast in female, estrogen receptor negative HER2-positive carcinoma of breast documented in this encounter Care Teams Security Test Engineer Relationship Specialty Start Date End Date Ryan Betancourt MD [address] [place] [phone] PCP - General Family Medicine 07/29/22 documented as of this encounter
--- OUTSIDE RECORDS SUMMARY | 2024-06-01 20:35 | XMS_ITS | Encounter Summary ---
Author Organization [facility] Address [facility] [place] [address] Care Team Providers Care Tank Furnace Operator Name Role Phone Ryan Betancourt MD Primary Care Provider [phone] Encounter Details Date Type Department Care Team (Latest Contact Info) Description 05/03/2024 Travel Social History Tobacco Use Types Packs/Day [...] AM EST Hospital Encounter [place] [address] Consuelo Joyce APRN [facility] [place] [address] 06/14/2024 8:45 AM EST Appointment XRay at [address] [place] [address] Kavitha Rai MD [facility] DR HEMATOLOGY [place] [address] 06/14/2024 9:45 AM EST Appointment Hematology [place] [address] 06/14/2024 11:00 AM EST Appointment [place] [address] Consuelo Joyce APRN [facility] [place] [address] 06/14/2024 1:00 PM EST Office Visit Hematology [place] [address] Kavitha Rai MD [facility] HEMATOLOG[place] [address] 06/14/2024 2:30 PM EST Appointment Hematology [place] [address] 07/05/2024 10:30 AM EDT Appointment Hematology and Oncology at [place] [phone] 07/05/2024 11:30 AM EDT Office Visit Hematology and Oncology at [place] [phone] Consuelo Joyce APRN [facility] [place] [address] 07/05/2024 1:00 PM EDT Appointment Hematology and Oncology at [place] [address] 08/16/2024 9:20 AM EDT Office Visit Ophthalmology at [place] [phone] Luz Jose, OD [facility] [place] [address] 01/14/2025 8:30 AM EDT Office Visit Psychiatry and Behavioral Health at [place] [address] Anna Oneill, PhD [facility] [place] [address] documented as of this encounter Visit Diagnoses Not on filedocumented in this encounter Care Teams Tank Furnace Operator Relationship Specialty Start Date End Date Ryan Betancourt MD [address] [place] [phone] PCP - General Family Medicine 07/29/22 documented as of this encounter
--- OUTSIDE RECORDS SUMMARY | 2024-06-01 20:35 | XMS_ITS | Encounter Summary ---
Author Organization [facility] [place] [address] Care Team Providers Care Kindergarten Teacher Name Role Phone Ryan Betancourt MD Primary Care Provider Encounter Details Date Type Department Care Team (Late st Contact Info) Description 05/29/2024 Patient Outreach Hematology and Oncology at [facility] [place] [phone] Tegan Perry Social History Tobacco Use Types Packs/Day Years [...] place to sleep or slept in a assisted (including now)? No 07/29/2022 Sex and Gender Information Value Date Recorded Sex Assigned at Not on file Gender Identity Not on file Sexual Orientation Not on file documented as of this encounter Miscellaneous Notes * Telephone Encounter - Tegan Perry - 05/30/2024 11:22 AM EST Community Health Art Framing Manager spoke to Soo today. 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 She struggles with keeping up with bills. Soo uses her local food pantry. Currently her treatment plan is usually every three weeks. She is over income for state support. Soo is looking for a therapist and is meeting with one today, to see if they are a good fit. She still works with her health insurance structural steel ironworker Zahraa. Over the years Soo has received multiple grants.At this time I couldn't find any other options. Emailed her links and information on these resources. Local food pantry options. [employer], fuel assistance, crisis fuel. [facility] Complimentary Programs/support groups. Patient Financial Assistance application. I have mailed her six cafe vouchers and a $15 gas card and my business card. Tegan Perry documented in this encounter Plan of Treatment Upcoming Encounters Date Type Department Care Team (Late st Contact Info) Description 06/14/2024 8:00 AM EST Hospital Encounter [place] [address] Consuelo Joyce RADIO TALK SHOW HOST [facility] [place] [address] 06/14/2024 8:45 AM EST Appointment XRay at [address] [place] [address] Kavitha Rai MD [facility] [address] [place] [address] 06/14/2024 9:45 AM EST Appointment Hematology and Oncology at [place] [address] 06/14/2024 11:00 AM EST Appointment Nuclear Medicine at [address] Consuelo Joyce RADIO TALK SHOW HOST [facility] [place] [address] 06/14/2024 1:00 PM EST Office Visit Hematology and Oncology at [place] [address] Kavitha Rai MD [facility] DR [place] [address] 06/14/2024 2:30 PM EST Appointment Hematology and Oncology at [address] 07/05/2024 10:30 AM EDT Appointment Hematology and Oncology at [place] [phone] 07/05/2024 11:30 AM EDT Office Visit Hematology and Oncology at [place] [phone] Consuelo Joyce [facility] [place] [address] 07/05/2024 1:00 PM EDT Appointment Hematology [place] [address] 08/16/2024 9:20 AM EDT Office Visit Ophthalmology at [place] [phone] Luz Jose, OD [facility] [place] [address] 01/14/2025 8:30 AM EDT Office Visit Psychiatry [place] [address] Anna Oneill, PhD [facility] [place] [address] documented as of this encounter Visit Diagnoses Not on filedocumented in this encounter Care Teams Kindergarten Teacher Relationship Specialty Start Date End Date Ryan Betancourt MD [address] [place] [phone] PCP - General Family Medicine 07/29/22 documented as of this encounter
--- OUTSIDE RECORDS SUMMARY | 2024-06-01 20:36 | XMS_ITS | Encounter Summary ---
Author Organization [facility] Address [facility] [place] [address] Care Team Providers Care Room Attendant Name Role Phone Ryan Betancourt MD Primary Care Provider [phone] Reason for Referral * Diagnostic Test (Routine) - Authorized Specialty Diagnoses / Procedures Referred By Ciaran lopez Referred To Contact Radiology Diagnoses Malignant neoplasm of right breast in female, estrogen receptor negative, unspecified site of breast Procedures XR Fluoro Esophagram (Double Contrast) Kavitha Rai MD [facility] [place] [address] [facility] Rad Xray [address] [place] [address] [place] [address] Referral ID Status Reason Start Date Expiration Date Visits Requested Visits Authorized [id number] Authorized Specialty Service Requested 03/20/2024 09/18/2025 1 1 Reason for Visit * Reason Comments Follow-up Encounter Details Date Type Department Care Team (Late st Contact Info) Description 03/20/2024 11:20 AM EST Office Visit Hematology and Oncology at [facility] [place] [address] Kavitha Rai MD [facility] [place] [address] Malignant neoplasm of right breast in female, estrogen receptor negative, unspecified site of breast Social History Tobacco Use Types Packs/Day Years Used Date Smoking Tobacco: Former Cigarettes 0.3 1 1 996 - 1997 Smokeless Tobacco: Never Alcohol Use Standard Drinks/Week [...] place to sleep or slept in a senior living (including now)? No 07/29/2022 Sex and Gender Information Value Date Recorded Sex Assigned at Not on file Gender Identity Not on file Sexual Orientation Not on file documented as of this encounter Last Filed Vital Signs Vital Sign Reading Time Taken Comments Blood Pressure 132/90 03/20/2024 11:02 AM EST Pulse 79 03/20/2024 11:02 AM EST Temperature 37.1 ??C (98.8 ??F) 03/20/2024 1 1:02 AM EST Respiratory Rate 18 03/20/2024 11:0 2 AM EST Oxygen Saturation 100% 03/20/2024 11: 02 AM EST Inhaled Oxygen Concentration - - Weight 111.2 kg (245 lb 2.4 oz) 024 11:02 AM EST Height - - Body Mass Index 41.09 02/28/2024 9:44 AM EST documented in this encounter Progress Notes * Kavitha Rai MD - 03/20/2024 11:20 AM EST Patient ID: Soy San is [...] plan for every 6 weeks started 02/24/2023. 03/22/2024 On TDM1 Breast Pain:prn oxycodone. Still [...] and there Hot flashes:not as many LMP: 10/23-9 Diarrhea: denies but loose stools, no time [...] most 3 x per cycle [place] [employer] [place]. 09/01/2023 On [place] q 3 [...] bathroom and wipe all over again. , eddie has hemorrhoids as well. 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 PET CT 04/07/2023: [...] 4 weeks ( signed) Not sleeping well. Black cohosh has helped a lot but still a [...] right breast in the shower. Subsequently called [facility], seen that day. 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 She appears well- developed and well-nourished. No distress. Head: Normocephalic. Eyes: Conjunctivae are normal. Pupils are equal, round, and reactive to light. Neck: Normal range of motion. Cardiovascular: Normal rate, regular rhythm and normal heart sounds. Pulmonary/Chest: Effort normal and breath sounds normal. Right breast: No discrete mass or axillary node. Left breast : No masses or nipple discharge Abdominal: Soft. Bowel sounds are normal. There is no tenderness. Musculoskeletal: Normal range of motion. Extremities: no clubbing, cyanosis or edema Neurological: She is alert and oriented to person, place, and time. Gait normal. Skin: Skin is warm and dry. Taxotere nails Psychiatric: She has a normal mood and affect. Her behavior is normal. Results: Lab Results Component Value Date WBC 7.66 03/20/2024 HGB 13.2 03/20/2024 HCT 40.4 03/20/2024 MCV 81.1 (L) 03/20/2024 PLATELET 262 03/20/2024 Lab Results Component Value Date NEUTROABS 5.21 03/20/2024 Lab Results Component Value Date NA 139 03/20/2024 K 3.6 03/20/2024 CL 103 03/20/2024 CO2 26 03/20/2024 BUN 12 03/20/2024 CREATININE 0.80 03/20/2024 GLUCOSE 104 03/20/2024 CALCIUM 9.1 03/20/2024 ESTGFR 93 03/20/2024 Lab Results Component Value Date ALT 30 03/20/2024 AST 30 03/20/2024 ALKPHOS 79 03/20/2024 BILITOT 0.4 03/20/2024 ALBUMIN 4.0 03/20/2024 PROT 7.7 03/20/2024 Carcinoembryonic Antigen Date Value 03/20/2024 6.2 ng/ml (H) 02/28/2024 5.7 ng/ml (H) 02/07/2024 5.5 ng/ml (H) 01/17/2024 5.1 ng/ml (H) 12/30/2023 2.9 ng/ml 11/03/2023 2.8 ng/mL 10/13/2023 2.4 ng/mL 09/22/2023 2.8 ng/mL 08/11/2023 2.3 ng/mL 07/21/2023 2.4 ng/mL CA 15-3 (unit/mL) Date Value 03/20/2024 33 (H) 02/28/2024 34 (H) 02/07/2024 34 (H) 01/17/2024 34 (H) 12/30/2023 32 (H) 11/03/2023 33 (H) 10/13/2023 28 (H) 09/22/2023 28 (H) 09/01/2023 30 (H) 08/11/2023 28 (H) A/P: Soy San is a 43 y.o. 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 She has had an excellent clinical response to therapy and continuedon H/P monotherapy until oligoprogression in breast. She was switched to TDM-1. Tolerating well. Breast Cancer: TDM-1 C6D1 today - LFTs WNL today: will continue with dose reduce of TDM1 from 3.6 mg/kg to 3 mg/kg - CT/BS: stable and breast MRI scheduled for later today -persistent breast pain on right. imaging today - swallow study. Some dysphagia. - optho appt pending. Saw Dr. Oneill cognitive clinic 01/11, f/u on 01/25 referral placed to speech therapy per Mai. 3. Restart denosumab today - will not be having dental work done. Will schedule q6w, 4. Primary breast surgical consultation: Not recommended at this time per most recent tumor board discussion. RTC in 3 weeks with labs, /CLIP ON SUNGLASSES ASSEMBLER, and infusion Total time spent: 40 minutes with > 50% spend in discussion of above Future Appointments Date Time Provider Department Center 03/20/2024 12:30 PM LEB INFUSION THERAPY [facility] [address] [place] [address] 03/20/2024 4:50 PM MH MR 6 MH MRI MH Rad 04/10/2024 7:00 AM ACCESS ROOM [facility] [address] [place] [address] 04/10/2024 8:00 AM Consuelo Joyce APRN [facility] 04/10/2024 9:30 AM LEB INFUSION THERAPY [facility] [address] [place] [address] 05/03/2024 10:00 AM ACCESS ROOM [facility] [address] [place] [address] 05/03/2024 11:00 AM Consuelo Joyce APRN [facility] 05/03/2024 12:30 PM LEB INFUSION THERAPY [facility] [address] [place] [address] 05/24/2024 7:30 AM ACCESS ROOM [facility] [address] [place] [address] 05/24/2024 8:30 AM LEB INFUSION THERAPY [facility] [address] [place] [address] 06/14/2024 12:00 PM ACCESS ROOM [facility] [address] [place] [address] 06/14/2024 1:00 PM Kavitha Rai MD [facility] 06/14/2024 2:30 PM LEB INFUSION THERAPY [facility] [address] [place] [address] 07/05/2024 10:30 AM ACCESS ROOM [facility] [address] [place] [address] 07/05/2024 11:30 AM Consuelo Joyce APRN [facility] 07/05/2024 1:00 PM LEB INFUSION THERAPY [facility] [address] [place] [address] 01/14/2025 8:30 AM Anna Oneill, PhD [facility] 5D Behavioral H documented in this encounter Plan of Treatment Upcoming Encounters Date Type Department Care Team (Late st Contact Info) Description 06/14/2024 8:00 AM EST Hospital Encounter [place] [address] Consuelo Joyce APRN [facility] [place] [address] 06/14/2024 8:45 AM EST Appointment XRay at [address] [place] [address] Kavitha Rai MD [facility] DR HEMATOLOGY [place] [address] 06/14/2024 9:45 AM EST Appointment Hematology and Oncology at [place] [phone] 06/14/2024 11:00 AM EST Appointment Nuclear Medicine at [address] Consuelo Joyce [facility] [place] [address] 06/14/2024 1:00 PM EST Office Visit Hematology and Oncology at [place] [phone] Kavitha Rai MD [facility] DR HEMATOLOGY [place] [address] 06/14/2024 2:30 PM EST Appointment Hematology [place] [address] 07/05/2024 10:30 AM EDT Appointment Hematology [place] [address] 07/05/2024 11:30 AM EDT Office Visit Hematology and Oncology at [place] [phone] Consuelo Joyce [facility] [place] [place] [address] 07/05/2024 1:00 PM EDT Appointment Hematology and Oncology at [place] [phone] 08/16/2024 9:20 AM EDT Office [place] [address] Luz Jose, OD [facility] [place] [place] [address] 01/14/2025 8:30 AM EDT Office Visit Psychiatry [place] [address] Anna Oneill, PhD [facility] [place] [place] [address] Scheduled Orders Name Type Priority Associated Diagnoses Orde r Schedule XR Fluoro Esophagram (Double Contrast) Imaging Routine Malignant neoplasm of right breast in female, estrogen receptor negative, unspecified site of breast Expected: 04/20/2024 (Approximate), Expires: 03/20/2025 documented as of this encounter Visit Diagnoses Diagnosis Malignant neoplasm of right breast in female, estrogen receptor negative, unspecified site of breast documented in this encounter Care Teams Room Attendant Relationship Specialty Start Date End Date Ryan Betancourt MD [address] [place] [phone] PCP - General Family Medicine 07/29/22 documented as of this encounter
--- OUTSIDE RECORDS SUMMARY | 2024-06-01 20:36 | XMS_ITS | Encounter Summary ---
Author Organization [facility] [place] [address] Care Team Providers Care Pumpman Name Role Phone Ryan Betancourt MD Primary Care Provider [phone] Reason for Visit * Treatment/Therapy Plan Authorization (Routine) - Authorized Specialty Diagnoses / Procedures Referred By Contac t Referred To Contact Hematology and Oncology Diagnoses Malignant neoplasm of overlapping sites of right breast in female, estrogen receptor negative Consuelo Joyce APRN [facility] [place] [address] [address] Referral ID Status Reason Start Date Expiration Date V isits Requested Visits Authorized [id number] Authorized 11/03/2023 2024 99 108 Encounter Details Date Type Department Care Team (Latest Contact Info) Description 05/03/2024 10:00 AM EST - 05/03/2024 10:07 AM EST Hospital Encounter Hematology [place] [address] Malignant neoplasm of overlapping sites [...] Sig Dispensed Refills Start Date End Date Sodium Fluoride (Clinpro 5000) 1.1 % Paste [...] as of this encounter Progress Notes * Fabi Gilbert RN - 05/03/2024 10:24 AM EST Patient Name: Soy San Patient Age: 43 y.o. Birthdate: 1980 Admit date: 05/03/2024 Attending Physician: No att. providers found Access visit. See MAR and/or flowsheet. documented in this encounter Plan of Treatment Upcoming Encounters Date Type Department Care Team (Late st Contact Info) Description 06/14/2024 8:00 AM EST Hospital Encounter [place] [address] Consuelo Joyce APRN [facility] [place] [address] 06/14/2024 8:45 AM EST Appointment XRay at [address] [place] [address] Kavitha Rai MD [facility] HEMATOLOGY [place] [address] 06/14/2024 9:45 AM EST Appointment Hematology and Oncology at [place] [phone] 06/14/2024 11:00 AM EST Appointment Nuclear Medicine at [place] [phone] Consuelo Joyce PROFESSIONAL DRIVER [facility] [place] [address] 06/14/2024 1:00 PM EST Office Visit Hematology [place] [address] Kavitha Rai MD [facility] HEMATOLOGY [place] [address] 06/14/2024 2:30 PM EST Appointment Hematology [place] [address] 07/05/2024 10:30 AM EDT Appointment Hematology [place] [address] 07/05/2024 11:30 AM EDT Office Visit Hematology [place] [address] Consuelo Joyce APRN [facility] [place] [address] 07/05/2024 1:00 PM EDT Appointment Hematology [place] [address] 08/16/2024 9:20 AM EDT Office [place] [phone] Luz Jose, OD [facility] [place] [address] 01/14/2025 8:30 AM EDT Office Visit Psychiatry [place] [address] Anna Oneill, PhD [facility] [place] [address] documented as of this encounter Procedures Procedure Name Priority Date/Time Associated Diagnosis Comments CANCER ANTIGEN 15-3 STAT 05/03/2024 1 0:24 [...] encounter Results * (ABNORMAL) Cancer antigen 15-3 (05/03/2024 10:24 AM EST) CA 15-3 36(H) <=25 unit/mL 05/03/2024 11:41 AM EST [facility] Comment:This result was gene rated using a Deepak Dequan immunoassay. Results obtained from other methods or manufacturers cannot be used interchangeably with this method. Blood VENOUS BLOOD SPECIMEN / Unknown Venipuncture / Unknown 05/03/2024 10:24 AM EST 05/03/2024 10:39 AM EST Consuelo Joyce PROFESSIONAL DRIVER CHEMISTRY ORDERABLE S [facility] [place] [address] * (ABNORMAL) Comprehensive metabolic panel (05/03/2024 10:24 AM EST) Glucose 95 65 - 199 mg/dL 05/03/2024 11:14 AM [facility] Comment:Glucose Concentratio n >=200 mg/dL plus symptoms is consistent with Diabetes Mellitus. Blood Urea Nitrogen 14 8 - 18 mg/dL 05/03/2024 11:14 AM [facility] Creatinine 0.81 0.70 - 1.20 mg/dL 05/03/2024 11:14 AM [facility] Sodium 140 135 - 145 mMol/L 05/03/2024 11:14 AM [facility] Potassium 3.6 3.5 - 5.0 mMol/L 05/03/2024 11:14 AM [facility] Chloride 105 98 - 107 mMol/L 05/03/2024 11:14 AM [facility] Carbon Dioxide 25 22 - 31 mMol/L 05/03/2024 11:14 AM [facility] Anion Gap 10 5 - 15 mMol/L 05/03/2024 11:14 AM [facility] Calcium 9.6 8.5 - 10.5 mg/dL 05/03/2024 11:14 AM [facility] Protein, Total 7.8 6.1 - 8.0 g/dL 05/03/2024 11:14 AM [facility] Albumin 3.8 3.2 - 5.2 g/dL 05/03/2024 11:14 AM [facility] Aspartate Aminotransferase 34(H) <=30 unit/L 05/03/2024 11:14 AM [facility] Alanine Aminotransferase 31(H) 0 - 30 unit/L 05/03/2024 11:14 AM [facility] Alkaline Phosphatase 89 35 - 105 unit/L 05/03/2024 11:14 AM [facility] Bilirubin, Total 0.3 <=1.3 mg/dL 05/03/2024 11:14 AM EST [facility] Est Glomerular Filtration Rate - Female 91 mL/min/1. 73 m?? 05/03/2024 11:14 AM [facility] Comment: This patient's estimated [...] Calculator [employer] Fasting Status No 05/03/2024 11:14 AM [facility] Blood VENOUS BLOOD SPECIMEN / Unknown Venipuncture / Unknown 05/03/2024 10:24 AM EST 05/03/2024 10:39 AM EST Consuelo Joyce PROFESSIONAL DRIVER CHEMISTRY ORDERABLE S [facility] [place] [address] * (ABNORMAL) CBC (with Diff) (05/03/2024 10:24 AM EST) White Blood Cell 7.06 4.00 - 9.50 x10(3)/mc L 05/03/2024 10:50 AM [facility] Red Blood Cell 5.31(H) 4.00 - 5.21 x10(6)/mc L 05/03/2024 10:50 AM [facility] Hemoglobin 13.8 11.7 - 15.5 g/dL 05/03/2024 10:50 AM [facility] Hematocrit 42.9 35.7 - 45.8 % 05/03/2024 10:50 AM [facility] Mean Cell Volume 80.8(L) 82.6 - 94.4 fL 05/03/2024 10:50 AM [facility] Mean Cell Hemoglobin 26.0(L) 27.1 - 32.0 pg 05/03/2024 10:50 AM [facility] Mean Cell Hemoglobin Concentration 32.2 31.7 - 35.0 g/dL 05/03/2024 10:50 AM [facility] Platelet 216 145 - 357 x10(3)/mc L 05/03/2024 10:50 AM [facility] Mean Platelet Volume 10.7 7.6 - 12.9 fL 05/03/2024 10:50 AM [facility] RDW Standard Deviation 44.7 37.0 - 46.0 fL 05/03/2024 10:50 AM [facility] RDW coefficient of variation 15.4(H) 11.5 - 14.1 % 05/03/2024 10:50 AM [facility] NRBC% auto 0.0 % 05/03/2024 10:50 AM [facility] NRBC Absolute <0.01 <0.01 x10(3)/mc L 05/03/2024 10:50 AM [facility] Neutrophil % 53.4 % 05/03/2024 10:50 AM [facility] Neutrophil Absolute (ANC) - Automated 3.77 1.70 - 6.10 x10(3)/mc L 05/03/2024 10:50 AM [facility] Lymph % 37.7 % 05/03/2024 10:50 AM [facility] Lymph Absolute 2.66 0.90 - 3.20 x10(3)/mc L 05/03/2024 10:50 AM [facility] Monocyte % 5.7 % 05/03/2024 10:50 AM [facility] Monocyte Absolute 0.40 0.30 - 0.90 x10(3)/mc L 05/03/2024 10:50 AM [facility] Eos % 2.4 % 05/03/2024 10:50 AM [facility] Eos Absolute 0.17 0.00 - 0.40 x10(3)/mc L 05/03/2024 10:50 AM [facility] Basophil % 0.4 % 05/03/2024 10:50 AM [facility] Baso Absolute <0.04 0.00 - 0.10 x10(3)/mc L 05/03/2024 10:50 AM [facility] Immature Gran % 0.4 % 10:50 AM [facility] Immature Gran Absolute <0.04 0.00 - 0.04 x10(3)/mc L 05/03/2024 10:50 AM [facility] Blood VENOUS BLOOD SPECIMEN / Unknown Venipuncture / Unknown 05/03/2024 10:24 AM EST 05/03/2024 10:39 AM EST Consuelo Gerardo Amesks PROFESSIONAL DRIVER HEMATOLOGY ORDERABL ES Performing Organization Address City/[facility] Co de Phone Number [facility] [place] [address] * (ABNORMAL) CEA (05/03/2024 10:24 AM EST) Carcinoembryonic Antigen 8.5(H) <=3.8 ng/ml 05/03/2024 11:41 AM EST [facility] Comment: Some smokers may have elevated CEA, generally < 5.5 ng/mL. This result was generated using a Deepak Dequan immunoassay. ??Results obtained from other methods or manufacturers cannot be used interchangeably with this method. Blood VENOUS BLOOD SPECIMEN / Unknown Venipuncture / Unknown 05/03/2024 10:24 AM EST 05/03/2024 10:39 AM EST Consuelo L Sacks PROFESSIONAL DRIVER CHEMISTRY ORDERABLE S [facility] [place] [address] documented in this encounter Visit Diagnoses Diagnosis [...] EVERY 1 MIN PRN, Starting on Yvette 05/03/24 at 1016, Until Tue05/04/24 at 0436, Line Care, Flush pertains to all indwelling lines. Flush per protocol found in the job aid using the link provided on this medication record. Refer to Intravenous (IV) Job Aid: Adult Flushing & Catheter Care (8097) job aid for additional information regarding guidelines and administration., Routine Given 05/03/2024 10:24 AM EST 20 mLs documented in this encounter Care Teams Pumpman Relationship Specialty Start Date End Date Ryan Betancourt MD [address] [place] [phone] PCP - General Family Medicine 07/29/22 documented as of this encounter
--- OUTSIDE RECORDS SUMMARY | 2024-06-01 20:36 | XMS_ITS | Encounter Summary ---
Author Organization [facility] [place] [address] Care Team Providers Care Commercial Artist Lettering Name Role Phone Ryan Betancourt MD Primary Care Provider [phone] Reason for Referral * Diagnostic Test (Routine) - Authorized Specialty Diagnoses / Procedures Referred By Contac t Referred To Contact Radiology Diagnoses Malignant neoplasm of overlapping sites of right breast in female, estrogen receptor negative Malignant neoplasm of right breast in female, estrogen receptor negative, unspecified site of breast 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 Procedures NM Bone Scan Whole Body Consuelo Joyce APRN [facility] [place] [address] [facility] [place] [address] Referral ID Status Reason Start Date Expiration Date Visits Requested Visits Authorized [id number] Authorized Specialty Service Requested 05/03/2024 10/31/2025 1 1 * Diagnostic Test (Routine) - Pending Review Specialty Diagnoses / Procedures Referred By Contac t Referred To Contact Radiology Diagnoses Malignant neoplasm of overlapping sites of right breast in female, estrogen receptor negative Malignant neoplasm of right breast in female, estrogen receptor negative, unspecified site of breast 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 Procedures CT Chest Abdomen Pelvis w Contrast (Generic) Consuelo Joyce APRN [facility] [place] [place] [address] [facility] [place] [address] Referral ID Status Reason Start Date Expiration Date Visits Requested Visits Authorized [id number] Pending Review Specialty Service Requested 05/03/2024 10/31/2025 1 1 Reason for Visit * Reason Comments Follow-up Encounter Details Date Type Department Care Team (Late st Contact Info) Description 05/03/2024 11:00 AM EST Office Visit Hematology [place] [address] Consuelo Joyce APRN [facility] [place] [address] Urgency of urination; Malignant neoplasm of overlapping sites of right breast in female, estrogen receptor negative; Malignant neoplasm of right breast in female, estrogen receptor negative, unspecified site of breast; 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; HER2-positive carcinoma of breast Social History Tobacco [...] place to sleep or slept in a skilled nursing (including now)? No 07/29/2022 Sex and Gender Information Value Date Recorded Sex Assigned at Not on file Gender Identity Not on file Sexual Orientation Not on file documented as of this encounter Last Filed Vital Signs Vital Sign Reading Time Taken Comments Blood Pressure 124/84 05/03/2024 10:34 AM EST manually taken left arm Pulse 76 05/03/2024 10:34 AM EST Temperature 36.6 ??C (97.9 ??F) 05/03/2024 1 0:34 AM EST Respiratory Rate 18 05/03/2024 10:3 4 AM EST Oxygen Saturation 98% 05/03/2024 10: 34 AM EST Inhaled Oxygen Concentration - - Weight 110.6 kg (243 lb 13.3 oz) 05/03/2024 10:34 AM EST Height 164.2 cm (5' 4.65) 05/03/2024 1 0:34 AM EST Body Mass Index 41.02 05/03/2024 10:34 AM EST documented in this encounter Progress Notes * Consuelo Joyce, EDY - 05/03/2024 11:00 AM EST Patient ID: Soy San is [...] plan for every 6 weeks started 02/24/2023. 05/03/2024 On TDM1 Tired today, About a [...] Recent biopsy of skin c/w breast cancer ER/RI- HER+ same as her other site of [...] most 3 x per cycle Going to [employer] for vacation. 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 PET CT 04/07/2023: [...] right breast in the shower. Subsequently called [facility], seen that day. 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 She appears well- developed and well-nourished. No distress. Head: Normocephalic. Eyes: Conjunctivae are normal. Pupils are equal, round, and reactive to light. Neck: Normal range of motion. Cardiovascular: Normal rate, regular rhythm and normal heart sounds. Pulmonary/Chest: Effort normal and breath sounds normal. Right breast: No discrete mass or axillary node. Cat scratch and skin irritation noted otherwise noskin lesions Left breast : No masses or [...] Results: Lab Results Component Value Date WBC 7.06 05/03/2024 HGB 13.8 05/03/2024 HCT 42.9 05/03/2024 MCV 80.8 (L) 05/03/2024 PLATELET 216 05/03/2024 Lab Results Component Value Date NEUTROABS 3.77 05/03/2024 Lab Results Component Value Date NA 140 05/03/2024 K 3.6 05/03/2024 CL 105 05/03/2024 CO2 25 05/03/2024 BUN 14 05/03/2024 CREATININE 0.81 05/03/2024 GLUCOSE 95 05/03/2024 CALCIUM 9.6 05/03/2024 ESTGFR 91 05/03/2024 Lab Results Component Value Date ALT 31 (H) 05/03/2024 AST 34 (H) 05/03/2024 ALKPHOS 89 05/03/2024 BILITOT 0.3 05/03/2024 ALBUMIN 3.8 05/03/2024 PROT 7.8 05/03/2024 Carcinoembryonic Antigen Date Value 05/03/2024 8.5 ng/ml [...] (H) 09/01/2023 30 (H) 08/11/2023 28 (H) Breast MRI 04/06/2024 Breast MRI: RIGHT Breast: There has been interval resolution of previously identified regional nonmass enhancement surrounding the biopsy clip. Findings are consistent with complete imaging response. RIGHT BREAST LESION # 1 no residual nonmass enhancement around the biopsy clip at the site of biopsy-proven malignancy. Lymph Node Basins/Other: There is no evidence of internal mammary or axillary adenopathy. No significant abnormalities are seen in the chest wall or skin. Previously noted abnormal sternal enhancement is not visualized on today's study IMPRESSION No MRI evidence of malignancy. A/P: Soy San is a 43 y.o. [...] Breast Cancer: TDM-1 C6D1 today - LFTs mild elevation today: will continue with dose reduce of TDM1 from 3.6 mg/kg to 3 mg/kg -Markers CA 15-3 stable, CEA trending up, reviewed with Dr. Rai will order CT/BS -persistent breast pain on right. imaging shows improvement as above - swallow study. Some dysphagia.scheduled for 06/14 - optho appt pending. -UA for urgency is negative for infection, encourage f/u with chimney repairer in [facility] message Saw Dr. Oneill cognitive clinic 01/11, f/u on 01/25 referral placed to speech therapy per Mai. 3. denosumab q6 weeks - with every other infusion, due today 4. Primary breast surgical consultation: Not recommended at this time per most recent tumor board discussion. RTC in 3 weeks for labs and stand alone Phes[place] Then 3 weeks later with labs, MD/SONOGRAM TECHNICIAN, and infusion Imaging pending scheduling Total time spent: 40 minutes with > 50% spend in discussion of above Future Appointments Date Time Provider Department Center 05/24/2024 7:30 AM ACCESS ROOM [address] 05/24/2024 8:30 AM [facility] [address] 05/24/2024 11:20 AM [facility] CT [address] [facility] RAD CT [facility] Rad 06/14/2024 8:00 AM [facility] NM ELIZA MH Nuc Med [facility] Rad 06/14/2024 8:45 AM [facility] DX ROOM 5 MH Xray [facility] Rad 06/14/2024 9:45 AM ACCESS ROOM [facility] [address] [place] [address] 06/14/2024 11:00 AM [facility] NM ROOM 3 MH Nuc Med [facility] Rad 06/14/2024 1:00 PM Kavitha Rai MD [facility]EM ONC [facility] 06/14/2024 2:30 PM [facility] INFUSION THERAPY [facility] [address] [place] [address] 07/05/2024 10:30 AM ACCESS ROOM [facility] [address] [place] [address] 07/05/2024 11:30 AM Consuelo Joyce APRN [facility] HEM ONC [facility] 07/05/2024 1:00 PM [facility] INFUSION THERAPY [facility] 3K [facility] 08/16/2024 9:20 AM Luz Jose, OD [facility] OPHT 4B [facility] 01/14/2025 8:30 AM Anna Oneill, PhD [facility] PSY 5D Behavioral H documented in this encounter Plan of Treatment Upcoming Encounters Date Type Department Care Team (Late st Contact Info) Description 06/14/2024 8:00 AM EST Hospital Encounter Nuclear [place] [address] Consuelo Joyce APRN [facility] [place] [address] 06/14/2024 8:45 AM EST Appointment XRay at [address] [place] [address] Kavitha Rai MD [facility] [address] [place] [address] 06/14/2024 9:45 AM EST Appointment Hematology [place] [address] 06/14/2024 11:00 AM EST Appointment Nuclear [place] [address] Consuelo Joyce APRN [facility] [place] [address] 06/14/2024 1:00 PM EST Office Visit Hematology [place] [address] Kavitha Rai MD [facility] [place] [address] 06/14/2024 2:30 PM EST Appointment Hematology [place] [address] 07/05/2024 10:30 AM EDT Appointment Hematology [place] [address] 07/05/2024 11:30 AM EDT Office Visit Hematology and Oncology at [place] [phone] Consuelo Joyce APRN [facility] [place] [address] 07/05/2024 1:00 PM EDT Appointment Hematology [place] [address] 08/16/2024 9:20 AM EDT Office Visit Ophthalmology at [place] [address] Luz Jose, [facility] [place] [place] [address] 01/14/2025 8:30 AM EDT Office Visit Psychiatry and Behavioral Health at [place] [address] Anna Oneill, PhD [facility] [place] [address] Scheduled Orders Name Type Priority Associated Diagnoses Orde r Schedule NM Bone Scan Whole Body Imaging Routine Malignant neoplasm of overlapping sites of right breast in female, estrogen receptor negative Malignant neoplasm of right breast in female, estrogen receptor negative, unspecified site of breast 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 Expected: 06/14/2024, Expires: 05/13/2025 documented as of this encounter Results * CT Chest Abdomen Pelvis w Contrast (Generic) (05/24/2024 2:41 PM EST) [employer] WORKSTATION ID [id number] RAD Anatomical Region Laterality Modality Abdomen, Pelvis [...] who have questions please contact the health long term care social worker that requested your imaging first. ? Narrative [...] patients who have questions please contactthe health long term care social worker that requested your imaging first. Consuelo Joyce TWISTER TENDER PAPER IMG CT ORDERABLES * Urinalysis with reflex Culture (05/03/2024 2:03 PM EST) Glucose, Urine Dipstick Negative Negative 05/03/2024 2:20 PM [facility] Protein, Urine Dipstick Negative Negative 05/03/2024 2:20 PM [facility] Bilirubin, Urine Dipstick Negative Negative 05/03/2024 2:20 PM [facility] Comment:Clinical correlation required for positive Urine Bilirubin results as false positive may occur with some drugs and drug related products. If a false positive is suspected a serum total bilirubin should be considered if clinically indicated. Urobilinogen, Urine Dipstick Normal Normal, 0.2 mg/dL, 1.0 mg/dL 05/03/2024 2:20 PM [facility] pH, Urine (dipstick) 6.5 5.0 - 8.0 05/03/2024 2:20 PM [facility] Blood, Urine Dipstick Negative Negative 05/03/2024 2:20 PM [facility] Ketone, Urine Dipstick Negative Negative 05/03/2024 2:20 PM [facility] Nitrite, Urine Dipstick Negative Negative 05/03/2024 2:20 PM [facility] Leukocytes, Urine Dipstick Negative Negative 05/03/2024 2:20 PM [facility] Specific [place] Urine Automated 1.019 1.005 - 1.030 05/03/2024 2:20 PM EST [facility] Appearance, Urine Dipstick Clear Clear 05/03/2024 2:20 PM EST [facility] Color, Urine Dipstick Yellow Yellow, Dark Yellow 05/03/2024 2:20 PM EST [facility] CULTURE ADDED? 05/03/2024 2:20 PM EST [facility] Urine URINE SPECIMEN OBTAINED BY CLEAN CATCH PROCEDURE / Unknown Non Blood Collection / Unknown 05/03/2024 2:03 PM EST 05/03/2024 2:11 PM EST Consuelo Joyce APRN URINE ORDERABLES [facility] [place] [place] [address] documented in this encounter Visit Diagnoses Diagnosis Urgency of urination Malignant neoplasm of overlapping sites of right breast in female, estrogen receptor negative Malignant neoplasm of right breast in female, estrogen receptor negative, unspecified site of breast 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 HER2-positive carcinoma of breast Malignant neoplasm of overlapping sites of right breast in female, estrogen receptor negative Malignant neoplasm of right breast in female, estrogen receptor negative, unspecified site of breast 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 documented in this encounter Care Teams Commercial Artist Lettering Relationship Specialty Start Date End Date Ryan Betancourt MD [address] [place] [phone] PCP - General Family Medicine 07/29/22 documented as of this encounter
--- OUTSIDE RECORDS SUMMARY | 2024-06-01 20:36 | XMS_ITS | Encounter Summary ---
Author Organization [facility] Address [facility] [place] [address] Care Team Providers Care Small Engine Specialist Name Role Phone Ryan Betancourt MD Primary Care Provider [phone] Encounter Details Date Type Department Care Team (Late st Contact Info) Description 04/05/2024 Notes Only Care Management [facility] [place] [phone] Lilian Gipson, RETAIL WIRELESS SALES CONSULTANT Social History Tobacco Use Types Packs/Day Years [...] place to sleep or slept in a fpc (including now)? 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 [employer] cards sent to her home address, and additional V[employer] card ordered on her behalf. Completed today: Financial resources Lilian ???Willow?? DOTTIE GipsonSW Social Work, Breast and Gynecology [email or web address] [email or web address] documented in this encounter Plan of Treatment Upcoming Encounters Date Type Department Care Team (Late st Contact Info) Description 06/14/2024 8:00 AM EST Hospital Encounter [place] [phone] Consuelo Joyce APRN [facility] [place] [address] 06/14/2024 8:45 AM EST Appointment XRay at [address] [place] [phone] Kavitha Rai MD [facility] [place] [address] 06/14/2024 9:45 AM EST Appointment Hematology [place] [address] 06/14/2024 11:00 AM EST Appointment Nuclear Medicine at [place] [phone] Consuelo Joyec [facility] [place] [address] 06/14/2024 1:00 PM EST Office Visit Hematology [place] [address] Kavitha Rai MD [facility] [place] [address] 06/14/2024 2:30 PM EST Appointment Hematology and Oncology at [place] [phone] 07/05/2024 10:30 AM EDT Appointment Hematology [place] [address] 07/05/2024 11:30 AM EDT Office Visit [place]ematology [place] [address] Consuelo Joyce, [facility] [place] [place] [address] 07/05/2024 1:00 PM EDT Appointment Hematology [place] [address] 08/16/2024 9:20 AM EDT Office [place] [phone] Luz Jose OD [facility] [place] [address] 01/14/2025 8:30 AM EDT Office Visit Psychiatry [place] [address] Anna Oneill, PhD [facility] [place] [address] documented as of this encounter Visit Diagnoses Not on filedocumented in this encounter Care Teams Small Engine Specialist Relationship Specialty Start Date End Date Ryan Betancourt MD [address] [place] [phone] PCP - General Family Medicine 07/29/22 documented as of this encounter
--- OUTSIDE RECORDS SUMMARY | 2024-06-01 20:36 | XMS_ITS | Encounter Summary ---
Author Organization [facility] [place] [address] Care Team Providers Care Delivery Clerk Name Role Phone Ryan Betancourt MD Primary Care Provider [phone] Reason for Visit * Treatment/Therapy Plan Authorization (Routine) - Authorized Specialty Diagnoses / Procedures Referred By Contac t Referred To Contact Hematology and Oncology Diagnoses Malignant neoplasm of overlapping sites of right breast in female, estrogen receptor negative Consuelo Joyce APRN [facility] [place] [address] [address] Referral ID Status Reason Start Date Expiration Date V isits Requested Visits Authorized [id number] Authorized 11/03/2023 2024 [id number] Encounter Details Date Type Department Care Team (Latest Contact Info) Description 04/10/2024 6:49 AM EST - 04/10/2024 11:59 PM EST Hospital Encounter Hematology [place] [address] Malignant neoplasm of overlapping sites [...] topically 2 times daily. 30 g 08/25/2022 amoxicillin-clavulanat e (Augmentin) 875-125 mg tablet Took last dose today for tooth pain 12/08/2023 05/03/2024 ondansetron (Zofran) 8 mg tablet Take 1 tablet by mouth every 8 hours as needed for Nausea. 30 tablet 3 10/04/2022 05/03/2024 documented as of this encounter Progress Notes * Sagrario Morgan RN - 04/10/2024 7:07 AM EST Patient Name: Soy San Patient Age: 43 y.o. Birthdate: 1980 Admit date: 04/10/2024 Attending Physician: No att. providers found Access visit. See MAR and/or flowsheet. documented in this encounter Plan of Treatment Upcoming Encounters Date Type Department Care Team (Late st Contact Info) Description 06/14/2024 8:00 AM EST Hospital Encounter [place] [address] Consuelo Joyce APRN [facility] [place] [address] 06/14/2024 8:45 AM EST Appointment XRay at [address] [place] [address] Kavitha Rai MD [facility] [place] [address] 06/14/2024 9:45 AM EST Appointment Hematology [place] [address] 06/14/2024 11:00 AM EST Appointment [place] [address] Consuelo Joyce APR[facility]AC[facility] [place] [address] 06/14/2024 1:00 PM EST Office Visit Hematology [place] [address] Kavitha Rai MD [facility] [place] [address] 06/14/2024 2:30 PM EST Appointment Hematology [place] [address] 07/05/2024 10:30 AM EDT Appointment Hematology [place] [address] 07/05/2024 11:30 AM EDT Office Visit Hematology [place] [address] Consuelo Joyce APRN [facility] [place] [address] 07/05/2024 1:00 PM EDT Appointment Hematology and Oncology at [place] [address] 08/16/2024 9:20 AM EDT Office Visit Ophthalmology at [place] [address] Luz Jose, CARSON [facility] [place] [address] 01/14/2025 8:30 AM EDT Office Visit Psychiatry and Behavioral Health at [address] Anna Oneill, PhD [facility] [place] [address] Scheduled Orders Name Type Priority Associated Diagnoses Orde r Schedule CEA Lab Routine Malignant neoplasm of overlapping sites of right breast in female, estrogen receptor negative Every 3 weeks for 15 Occurrences starting 04/05/2024 until 04/05/2025, 1 completed documented as of this encounter Procedures Procedure Name Priority Date/Time Associated Diagnosis Comments CANCER ANTIGEN 15-3 STAT 04/10/2024 7 :05 [...] encounter Results * (ABNORMAL) Cancer antigen 15-3 (04/10/2024 7:05 AM EST) CA 15-3 33(H) <=25 unit/mL 04/10/2024 1:45 PM EST [facility] Comment:This result was gene rated using a Deepak Dequan immunoassay. Results obtained from other methods or manufacturers cannot be used interchangeably with this method. Blood VENOUS BLOOD SPECIMEN / Unknown Mediport Line / Unknown 04/10/2024 7:05 AM EST 04/10/2024 7:12 AM EST Consuelo Joyce [employer] CHEMISTRY ORDERABLE S [facility] [place] [address] * (ABNORMAL) Comprehensive metabolic panel (04/10/2024 7:05 AM EST) Glucose 107 65 - 199 mg/dL 04/10/2024 7:45 AM [facility] Comment:Glucose Concentratio n >=200 mg/dL plus symptoms is consistent with Diabetes Mellitus. Blood Urea Nitrogen 12 8 - 18 mg/dL 04/10/2024 7:45 AM [facility] Creatinine 0.82 0.70 - 1.20 mg/dL 04/10/2024 7:45 AM [facility] Sodium 141 135 - 145 mMol/L 04/10/2024 7:45 AM [facility] Potassium 3.4(L) 3.5 - 5.0 mMol/L 04/10/2024 7:45 AM [facility] Chloride 107 98 - 107 mMol/L 04/10/2024 7:45 AM [facility] Carbon Dioxide 24 22 - 31 mMol/L 04/10/2024 7:45 AM [facility] Anion Gap 10 5 - 15 mMol/L 04/10/2024 7:45 AM [facility] Calcium 8.6 8.5 - 10.5 mg/dL 04/10/2024 7:45 AM [facility] Protein, Total 7.6 6.1 - 8.0 g/dL 04/10/2024 7:45 AM [facility] Albumin 3.8 3.2 - 5.2 g/dL 04/10/2024 7:45 AM [facility] Aspartate Aminotransferase 35(H) <=30 unit/L 04/10/2024 7:45 AM [facility] Alanine Aminotransferase 34(H) 0 - 30 unit/L 04/10/2024 7:45 AM [facility] Alkaline Phosphatase 75 35 - 105 unit/L 04/10/2024 7:45 AM [facility] Bilirubin, Total 0.3 <=1.3 mg/dL 04/10/2024 7:45 AM [facility] Est Glomerular Filtration Rate - Female 90 mL/min/1. 73 m?? 04/10/2024 7:45 AM [facility] Comment: This [...] Calculator [employer] Fasting Status No 04/10/2024 7:45 AM [facility] Blood VENOUS BLOOD SPECIMEN / Unknown Mediport Line / Unknown 04/10/2024 7:05 AM EST 04/10/2024 7:12 AM EST Consuelo Joyce [employer] CHEMISTRY ORDERABLE S [facility] [place] [address] * (ABNORMAL) CBC (with Diff) (04/10/2024 7:05 AM EST) White Blood Cell 5.19 4.00 - 9.50 x10(3)/mc L 04/10/2024 7:20 AM [facility] Red Blood Cell 4.95 4.00 - 5.21 x10(6)/mc L 04/10/2024 7:20 AM [facility] Hemoglobin 13.1 11.7 - 15.5 g/dL 04/10/2024 7:20 AM [facility] Hematocrit 40.0 35.7 - 45.8 % 04/10/2024 7:20 AM [facility] Mean Cell Volume 80.8(L) 82.6 - 94.4 fL 04/10/2024 7:20 AM [facility] Mean Cell Hemoglobin 26.5(L) 27.1 - 32.0 pg 04/10/2024 7:20 AM [facility] Mean Cell Hemoglobin Concentration 32.8 31.7 - 35.0 g/dL 04/10/2024 7:20 AM [facility] Platelet 200 145 - 357 x10(3)/mc L 04/10/2024 7:20 AM [facility] Mean Platelet Volume 10.0 7.6 - 12.9 fL 04/10/2024 7:20 AM [facility] RDW Standard Deviation 44.6 37.0 - 46.0 fL 04/10/2024 7:20 AM [facility] RDW coefficient of variation 15.3(H) 11.5 - 14.1 % 04/10/2024 7:20 AM [facility] NRBC% auto 0.0 % 04/10/2024 7:20 AM [facility] NRBC Absolute <0.01 <0.01 x10(3)/mc L 04/10/2024 7:20 AM [facility] Neutrophil % 53.8 % 04/10/2024 7:20 AM [facility] Neutrophil Absolute (ANC) - Automated 2.79 1.70 - 6.10 x10(3)/mc L 04/10/2024 7:20 AM [facility] Lymph % 35.6 % 04/10/2024 7:20 AM [facility] Lymph Absolute 1.85 0.90 - 3.20 x10(3)/mc L 04/10/2024 7:20 AM [facility] Monocyte % 6.9 % 04/10/2024 7:20 AM [facility] Monocyte Absolute 0.36 0.30 - 0.90 x10(3)/mc L 04/10/2024 7:20 AM [facility] Eos % 2.9 % 04/10/2024 7:20 AM [facility] Eos Absolute 0.15 0.00 - 0.40 x10(3)/mc L 04/10/2024 7:20 AM [facility] Basophil % 0.4 % 04/10/2024 7:20 AM [facility] Baso Absolute <0.04 0.00 - 0.10 x10(3)/mc L 04/10/2024 7:20 AM [facility] Immature Gran % 0.4 % 7:20 AM [facility] Immature Gran Absolute <0.04 0.00 - 0.04 x10(3)/mc L 04/10/2024 7:20 AM [facility] Blood VENOUS BLOOD SPECIMEN / Unknown Mediport Line / Unknown 04/10/2024 7:05 AM EST 04/10/2024 7:12 AM EST Consuelo Joyce [employer] HEMATOLOGY ORDERABL ES [facility] [place] [address] * (ABNORMAL) CEA (04/10/2024 7:05 AM EST) Carcinoembryonic Antigen 7.7(H) <=3.8 ng/ml 04/10/2024 1:45 PM EST [facility] Comment: Some smokers may have elevated CEA, generally < 5.5 ng/mL. This result was generated using a Deepak Dequan immunoassay. ??Results obtained from other methods or manufacturers cannot be used interchangeably with this method. Blood VENOUS BLOOD SPECIMEN / Unknown Mediport Line / Unknown 04/10/2024 7:05 AM EST 04/10/2024 7:12 AM EST Consuelo L Kwakuyash [employer]ATERMASTER CHEMISTRY ORDERABLE S [facility] [place] [address] documented in this encounter Visit Diagnoses Diagnosis [...] Intravenous, EVERY 1 MIN PRN, Starting on Tue04/10/24 at 0650, Until Tue04/11/24 at 0434, Line Care, Flush pertains to all indwelling lines. Flush per protocol found in the job aid using the link provided on this medication record. Refer to Intravenous (IV) Job Aid: Adult Flushing & Catheter Care (3270) job aid for additional information regarding guidelines and administration., Routine Given 04/10/2024 7:07 AM EST 20 mLs documented in this encounter Care Teams Delivery Clerk Relationship Specialty Start Date End Date Ryan Betancourt MD [address] [place] [phone] PCP - General Family Medicine 07/29/22 documented as of this encounter
--- OUTSIDE RECORDS SUMMARY | 2024-06-01 20:36 | XMS_ITS | Encounter Summary ---
Author Organization [facility] Address [facility] [place] [address] Care Team Providers Care Crude Unit Operator Name Role Phone Ryan Betancourt MD Primary Care Provider [phone] Encounter Details Date Type Department Care Team (Late st Contact Info) Description 04/09/2024 Orders [place] [phone] Farheen Her MD [facility] [place] [address] Social History Tobacco Use Types Packs/Day Years [...] AM EST Hospital Encounter [place] [address] Consuelo Joyce [address]N [facility] [place] [address] 06/14/2024 8:45 AM EST Appointment XRay at [address] [place] [address] Kavitha Rai MD [facility] [place] [address] 06/14/2024 9:45 AM EST Appointment Hematology [place] [address] 06/14/2024 11:00 AM EST Appointment [place] [address] Consuelo Joyce APRN [facility] [place] [address] 06/14/2024 1:00 PM EST Office Visit Hematology [place] [phone] Kavitha Rai MD [facility] [place] [address] 06/14/2024 2:30 PM EST Appointment Hematology and Oncology at [place] [phone] 07/05/2024 10:30 AM EDT Appointment Hematology and Oncology at [place] [address] 07/05/2024 11:30 AM EDT Office Visit Hematology and Oncology at [place] [address] Consuelo Joyce APRN [facility] [place] [address] 07/05/2024 1:00 PM EDT Appointment Hematology and Oncology at [place] [address] 08/16/2024 9:20 AM EDT Office Visit Ophthalmology at [place] [address] Luz Jose, CARSON [facility] [place] [address] 01/14/2025 8:30 AM EDT Office Visit Psychiatry and Behavioral Health at [place] [address] Anna Oneill, PhD [facility] [place] [address] documented as of this encounter Visit Diagnoses Not on filedocumented in this encounter Care Teams Crude Unit Operator Relationship Specialty Start Date End Date Ryan Betancourt MD [address] [place] [phone] PCP - General Family Medicine 07/29/22 documented as of this encounter
--- OUTSIDE RECORDS SUMMARY | 2024-06-01 20:36 | XMS_ITS | Encounter Summary ---
Author Organization [facility] Address [facility] [place] [address] Care Team Providers Care Support Dba Name Role Phone Ryan Betancourt MD Primary Care Provider [phone] Encounter Details Date Type Department Care Team (Late st Contact Info) Description 04/24/2024 Notes Only Care Management [facility] [place] [phone] Lilian Gipson, HOME PLANNING CONSULTANT SALESPERSON Social History Tobacco Use Types Packs/Day Years [...] place to sleep or slept in a care home (including now)? No 07/29/2022 Sex and Gender Information Value Date Recorded Sex Assigned at Not on file Gender Identity Not on file Sexual Orientation Not on file documented as of this encounter Progress Notes * Lilian Gipson MSW - 04/24/2024 1:50 PM ESTSummary: Comprehensive Breast Program: Social Work Follow Up I receive call from the [employer] seeking verification of medical attestation letter sent to them on 09/30/23 for purposes of financial moise. I'm able to verify letter and Soo's diagnosis. They report they can proceed with processing her application for financial assistance. Completed today: Care Coordination Lilian ???Willow?? Leonela [facility] Social Work, Breast and Gynecology [email or web address] [email or web address] documented in this encounter Plan of Treatment Upcoming Encounters Date Type Department Care Team (Late st Contact Info) Description 06/14/2024 8:00 AM EST Hospital Encounter [place] [phone] Consuelo Joyce APRN [facility] [place] [address] 06/14/2024 8:45 AM EST Appointment XRay at [address] [place] [phone] Kavitha Rai MD [facility] [place] [address] 06/14/2024 9:45 AM EST Appointment Hematology and Oncology at [place] [phone] 06/14/2024 11:00 AM EST Appointment Nuclear Medicine at [address] Consuelo Joyce APRN [facility] [place] [place] [address] 06/14/2024 1:00 PM EST Office Visit Hematology and Oncology at [place] [phone] Kavitha Rai MD [facility] [place] [address] 06/14/2024 2:30 PM EST Appointment Hematology and Oncology at [address] 07/05/2024 10:30 AM EDT Appointment Hematology and Oncology at [place] [phone] 07/05/2024 11:30 AM EDT Office Visit Hematology and Oncology at [place] [phone] [facility] [place] [address] 07/05/2024 1:00 PM EDT Appointment Hematology [place] [address] 08/16/2024 9:20 AM EDT Office Visit Ophthalmology at [place] [phone] Luz Jose OD [facility] [place] [address] 01/14/2025 8:30 AM EDT Office Visit Psychiatry and [place] [address] Anna Oneill, PhD [facility] [place] [address] documented as of this encounter Visit Diagnoses Not on filedocumented in this encounter Care Teams Support Dba Relationship Specialty Start Date End Date Ryan Betancourt MD [address] [place] [phone] PCP - General Family Medicine 07/29/22 documented as of this encounter
--- OUTSIDE RECORDS SUMMARY | 2024-06-01 20:36 | XMS_ITS | Encounter Summary ---
[place] [address] Care Team Providers Care Paper Twister Name Role Phone Ryan Betancourt MD Primary Care Provider [phone] Reason for Referral * Diagnostic Test (Routine) - Closed Specialty Diagnoses / Procedures Referred By Contac t Referred To Contact Radiology Diagnoses 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 Malignant neoplasm of overlapping sites of right breast in female, estrogen receptor negative HER2-positive carcinoma of breast Procedures MRI Breast wwo Contrast Consuelo Salter APRN [facility] [place] [address] [place] [address] Referral ID Status Reason Start Date Expiration Date V isits Requested Visits Authorized [id number] Closed Specialty Service Requested 02/23/2024 04/22/2024 1 1 Reason for Visit * Diagnostic Test (Routine) - Closed Specialty Diagnoses / Procedures Referred By Contac t Referred To Contact Radiology Diagnoses 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 Malignant neoplasm of overlapping sites of right breast in female, estrogen receptor negative HER2-positive carcinoma of breast Procedures MRI Breast wwo Contrast Consuelo Salter APRN [facility] [place] [address] [place] [address] Referral ID Status Reason Start Date Expiration Date V isits Requested Visits Authorized [id number] Closed Specialty Service Requested 02/23/2024 04/22/2024 1 1 Encounter Details Date Type Department Care Team (Latest Contact Info) Description 03/20/2024 2:43 PM EST - 03/20/2024 11:59 PM EST Hospital Encounter MRI at [facility] [place] [address] Consuelo Joyce APRN [facility] [place] [address] 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; Malignant neoplasm of overlapping sites of right breast in female, estrogen receptor negative; HER2-positive carcinoma of breast Discharge Disposition: Home Social History Tobacco Use [...] place to sleep or slept in a alf (including now)? No 07/29/2022 Sex and Gender [...] 12/15/2023 omeprazole (PriLOSEC) [address] capsuleIndications:Mal marvin neoplasm of overlapping sites of right breast [...] 10/04/2022 05/03/2024 documented as of this encounter Plan of Treatment Upcoming Encounters Date Type Department Care Team (Late st Contact Info) Description 06/14/2024 8:00 AM EST Hospital Encounter [place] [address] [facility] [place] [address] 06/14/2024 8:45 AM EST Appointment XRay at [address] [place] [address] Kavitha Rai MD [facility] [address] [place] [address] 06/14/2024 9:45 AM EST Appointment Hematology [place] [address] 06/14/2024 11:00 AM EST Appointment [place] [address] [facility]o [facility] [place] [address] 06/14/2024 1:00 PM EST Office Visit Hematology [place] [address] Kavitha Rai MD [facility] DR [place] [address] 06/14/2024 2:30 PM EST Appointment Hematology [place] [address] 07/05/2024 10:30 AM EDT Appointment Hematology and Oncology at [place] [phone] 07/05/2024 11:30 AM EDT Office Visit Hematology and Oncology at [place] [phone] Consuelo Joyce APRN [facility] [place] [address] 07/05/2024 1:00 PM EDT Appointment Hematology and Oncology at [place] [phone] 08/16/2024 9:20 AM EDT Office Visit Ophthalmology at [place] [phone] Luz Jose, CARSON [facility] [place] [place] [address] 01/14/2025 8:30 AM EDT Office Visit Psychiatry and Behavioral Health at [place] [address] Anna Oneill, PhD [facility] [place] [address] documented as of this encounter Procedures Procedure Name Priority Date/Time Associated Diagnosis Comments MRI BREAST WWO CONTRAST BILAT Routine 03/20/2024 4:56 PM EST 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 Malignant neoplasm of overlapping sites of right breast in female, estrogen receptor negative HER2-positive carcinoma of breast documented in this encounter Results * MRI Breast wwo Contrast Bilat (03/20/2024 4:56 PM EST) Siamos[employer] WORKSTATION ID [id number] DH RAD Anatomical [...] who have questions please contact the health career coordinator that requested your imaging first. ? Electronically signed by: Madina Gardner MD, [facility] ([phone]), at 03/21/2024 5:43 PM Narrative 03/21/2024 5:43 [...] contrast enhancement curve analysis was performed, using Nebula software. COMPARISON STUDIES: Compared and/or correlated with [...] is not visualized on today's study Consuelo Carrillo Isiah PHYSICAL SECURITY MANAGER IMG MRI ORDERABLES documented in this encounter Visit Diagnoses Diagnosis 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 Malignant neoplasm of overlapping sites of right breast in female, estrogen receptor negative HER2-positive carcinoma of breast documented in this encounter Administered Medications Inactive Administered Medications - up to 3 most recent administrations Medication Order MAR Action Action Date Dose Rate Site gadoterate meglumine (Dotarem) (0.5 mMol/mL) injection solution 0-100 mL 0-100 mL, Intravenous, ONCE PRN, 1 dose, Starting on 03/20/24 at 1640, Until Tu03/20/24 at 1640, Per Protocol, Radiology Contrast, Routine Given 03/20/2024 4:40 PM EST 23 mLs documented in this encounter Care Teams Paper Twister Relationship Specialty Start Date End Date Ryan Betancourt MD [address] [place] [phone] PCP - General Family Medicine 07/29/22 documented as of this encounter
--- OUTSIDE RECORDS SUMMARY | 2024-06-01 20:36 | XMS_ITS | Encounter Summary ---
Author Organization [place] [address] Care Team Providers Care Shopfitter Name Role Phone Ryan Betancourt MD Primary Care Provider [phone] Reason for Visit * Treatment/Therapy Plan Authorization (Routine) - Authorized Specialty Diagnoses / Procedures Referred By Contac t Referred To Contact Hematology and Oncology Diagnoses Malignant neoplasm of overlapping sites of right breast in female, estrogen receptor negative Consuelo Joyce APRN [facility] [place] [address] [address] Referral ID Status Reason Start Date Expiration Date V isits Requested Visits Authorized [id number] Authorized 11/03/2023 2024 99 108 Encounter Details Date Type Department Care Team (Latest Contact Info) Description 04/10/2024 6:49 AM EST - 04/10/2024 11:59 PM EST Hospital Encounter Hematology [place] [address] Malignant neoplasm of overlapping sites [...] place to sleep or slept in a chcf (including now)? No 07/29/2022 Sex and Gender [...] as of this encounter Progress Notes * Marin Ramirez RN - 04/10/2024 11:32 AM EST Patient Name: Soy San Patient Age: 43 y.o. Birthdate: 1980 Admit date: 04/10/2024 Attending Physician: No att. providers found Soy San, 43 y.o. female with diagnosis of Breast Cancer is here for chemotherapy infusion of ado-trastuzumab emtansine. PROTOCOL: n/a CYCLE: 7 DAY: 1 S: Patient agreeable to treatment [...] dosage per patient'sheight, weight and BSA by Marin Ramirez RN, RN and a [facility] pharmacist. Chemotherapy administered per protocol. REACTIONS (DESCRIPTION, TIME, INTERVENTION AND EFFECTIVENESS) none A: Patient received treatment as ordered, reports feeling well enough to return home. Soy Moseleyava confirms that all questions and concerns have been addressed prior to departure. P: Return to for care as scheduled. documented in this encounter Plan of Treatment Upcoming Encounters Date Type Department Care Team (Late st Contact Info) Description 06/14/2024 8:00 AM EST Hospital Encounter [place] [address] [facility] [place] [address] 06/14/2024 8:45 AM EST Appointment XRay at [address] [place] [address] [facility] HEMATOLOGY [place] [address] 06/14/2024 9:45 AM EST Appointment Hematology [place] [address] 06/14/2024 11:00 AM EST Appointment [place] [address] [address] [facility] [place] [address] 06/14/2024 1:00 PM EST Office Visit Hematology [place] [address] [facility] [address] HEMATOLOGY [place] [address] 06/14/2024 2:30 PM EST Appointment Hematology and Oncology at [place] [phone] 07/05/2024 10:30 AM EDT Appointment Hematology and Oncology at [place] [address] 07/05/2024 11:30 AM EDT Office Visit Hematology and Oncology at [place] [address] [address] [facility] [place] [address] 07/05/2024 1:00 PM EDT Appointment Hematology and Oncology at [place] [address] 08/16/2024 9:20 AM EDT Office Visit Ophthalmology at [place] [address] Luz Jose, OD [facility] [place] [address] 01/14/2025 8:30 AM EDT Office Visit Psychiatry and Behavioral Health at [place] [address] Anna Oneill, PhD [facility] [place] [address] documented as of this encounter Visit Diagnoses [...] Recorded weight), Intravenous, ONCE, 1 dose, On Tue04/10/24 at 0945, Administer over 30 Minutes, Monitor patient for ado-TRASTuzumab emtansine infusion reactions 30 minutes after each subsequent dose if the first dose was well-tolerated., This agent is restricted to outpatient use. Is this drug being given as an outpatient? Yes New Bag 04/10/2024 9:32 AM EST 320 mg 532 mL/hr ondansetron (Zofran) tablet 8 mg 8 mg, Oral, ONCE, 1 dose, On Tue04/10/24 at 0845, Administer prior to chemotherapy, Routine Given 04/10/2024 8:32 AM EST 8 mg sodium chloride 0.9 % (flush) (BD PosiFlush Normal Saline 0.9) flush 5-20 mL 5-20 mL, Intravenous, EVERY 1 MIN PRN, Starting on Tue04/10/24 at 0827, Until Tue04/11/24 at 0434, Line Care, Flush pertains to all indwelling lines. Flush per protocol found in the job aid using the link provided on this medication record. Refer to Intravenous (IV) Job Aid: Adult Flushing & Catheter Care (3338) job aid for additional information regarding guidelines and administration., Routine Given 04/10/2024 10:14 AM EST 20 mLs sodium chloride 0.9% infusion 500 mL, Intravenous, ONCE, 1 dose, On Tue04/10/24 at 0845 New Bag 04/10/2024 8:32 AM EST 500 mLs documented in this encounter Care Teams Shopfitter Relationship Specialty Start Date End Date Ryan Betancourt MD [address] [place] [phone] PCP - General Family Medicine 07/29/22 documented as of this encounter
--- OUTSIDE RECORDS SUMMARY | 2024-06-01 20:36 | XMS_ITS | Encounter Summary ---
Author Organization [facility] [place] [address] Care Team Providers Care Construction Job Cost Estimator Name Role Phone Ryan Betancourt MD Primary Care Provider [phone] Reason for Visit * Treatment/Therapy Plan Authorization (Routine) - Authorized Specialty Diagnoses / Procedures Referred By Contac t Referred To Contact Hematology and Oncology Diagnoses Malignant neoplasm of overlapping sites of right breast in female, estrogen receptor negative Consuelo Joyce APRN [facility] [place] [address] [address] Referral ID Status Reason Start Date Expiration Date V isits Requested Visits Authorized [id number] Authorized 11/03/2023 2024 99 108 Encounter Details Date Type Department Care Team (Latest Contact Info) Description 05/03/2024 10:08 AM EST - 05/03/2024 11:59 PM EST Hospital Encounter [place] [address] Malignant neoplasm of overlapping sites of right breast in female, estrogen receptor negative; Urgency of urination Discharge Disposition: Home Social History Tobacco Use Types Packs/Day Years Used Date Smoking Tobacco: Former Cigarettes 0.3 1 1 - 1996 Smokeless Tobacco: Never Alcohol Use Standard Drinks/Week Comments Not Currently 4 (1 standard drink = 0.6 oz pure alcohol) not drinking x 2 months since chemo Overall Financial Resource Strain (CARDIA) Harley chance Date Recorded How hard is it for [...] place to sleep or slept in a jail (including now)? No 07/29/2022 Sex and Gender [...] Progress Notes * Serenity Cespedes RN - 05/03/2024 1:09 PM EST Patient Name: Soy San Patient Age: 43 y.o. Birthdate: 1980 Admit date: 05/03/2024 Attending Physician: Alexia att. providers found TIME TREATMENT STARTED: 1246 TIME TREATMENT ENDED: 1403 Soy San, 43 y.o. female with diagnosis of 1. Malignant neoplasm of overlapping sites of right breast in female, estrogen receptor negative is here for chemotherapy infusion of Kadcyla and Xgeva injection. PROTOCOL: NA CYCLE: 8 DAY: 1 S: Pt. offers no complaints at this time. Chemo checks performed per policy. Reviewed plan of care for Infusion visit, patient verbalized understanding of plan as outlined. Patient discharged to home O: Patient's Chemotherapy orders independently verified for correct drug name, route and dosage perpatient's height, weight and BSA by Serenity Cespedes, RN/pharmacy RN and Pharmacist. REACTIONS (DESCRIPTION, TIME, INTERVENTION AND EFFECTIVENESS) None noted. A: Pt. Tolerated treatment well. Soy San confirms that all questions and issues have been addressed. Fluid intake, exercise, watching for a fever and handwashing discussed with patient. P: Return to clinic per routine. documented in this encounter Plan of Treatment Upcoming Encounters Date Type Department Care Team (Late st Contact Info) Description 06/14/2024 8:00 AM EST Hospital Encounter [place] [phone] Consuelo Joyce [facility] [place] [address] 06/14/2024 8:45 AM EST Appointment XRay at [address] [place] [phone] Kavitha Rai MD [facility] [place] [address] 06/14/2024 9:45 AM EST Appointment [place] [phone] 06/14/2024 11:00 AM EST Appointment [place] [phone] Consuelo Joyce [facility] [place] [address] 06/14/2024 1:00 PM EST Office Visit [place] [address] Kavitha Rai MD [facility] DR [place] [address] 06/14/2024 2:30 PM EST Appointment [place] [phone] 07/05/2024 10:30 AM EDT Appointment H[place] [address] 07/05/2024 11:30 AM EDT Office Visit [place] [phone] Consuelo Joyce APRN [facility] [place] [address] 07/05/2024 1:00 PM EDT Appointment [place] [address] 08/16/2024 9:20 AM EDT [place] [phone] Luz Jose, OD [facility] [place] [address] 01/14/2025 8:30 AM EDT Office Visit Psychiatry [place] [address] Anna Oneill, PhD [facility] [place] [address] Scheduled Orders Name Type Priority Associated Diagnoses Orde r Schedule CEA Lab Routine Malignant neoplasm of overlapping sites of right breast in female, estrogen receptor negative Every 3 weeks for 15 Occurrences starting 04/30/2024 until 04/30/2025, 1 completed documented as of this encounter Procedures Procedure Name Priority Date/Time Associated Diagnosis Comments URINALYSIS WITH REFLEX CULTURE Routine 05/03/2024 2:03 PM EST Urgency of urination documented in this encounter Results * Urinalysis with reflex Culture (05/03/2024 2:03 PM EST) Glucose, Urine Dipstick Negative Negative 05/03/2024 2:20 PM [facility] Protein, Urine Dipstick Negative Negative 05/03/2024 2:20 PM [facility] Bilirubin, Urine Dipstick Negative Negative 05/03/2024 2:20 PM [facility] Comment:Clinical correlation required for positive Urine Bilirubin results as false positive may occur with some drugs and drug related products. If a false positive is suspected a serum total bilirubin should be considered if clinically indicated. Urobilinogen, Urine Dipstick Normal Normal, 0.2 mg/dL, 1.0 mg/dL 05/03/2024 2:20 PM [facility] pH, Urine (dipstick) 6.5 5.0 - 8.0 05/03/2024 2:20 PM [facility] Blood, Urine Dipstick Negative Negative 05/03/2024 2:20 PM [facility] Ketone, Urine Dipstick Negative Negative 05/03/2024 2:20 PM [facility] Nitrite, Urine Dipstick Negative Negative 05/03/2024 2:20 PM [facility] Leukocytes, Urine Dipstick Negative Negative 05/03/2024 2:20 PM [facility] Specific [place] Urine Automated 1.019 1.005 - 1.030 05/03/2024 2:20 PM [facility] Appearance, Urine Dipstick Clear Clear 05/03/2024 2:20 PM [facility] Color, Urine Dipstick Yellow Yellow, Dark Yellow 05/03/2024 2:20 PM [facility] CULTURE ADDED? 05/03/2024 2:20 PM [facility] Urine URINE SPECIMEN OBTAINED BY CLEAN CATCH PROCEDURE / Unknown Non Blood Collection / Unknown 05/03/2024 2:03 PM EST 05/03/2024 2:11 PM EST Consuelo Joyce NOZZLE OPERATOR URINE ORDERABLES Performing Organization Address [facility] Co de Phone Number [facility] [place] [address] * (ABNORMAL) Cancer antigen 15-3 (05/03/2024 10:24 [...] EST 05/03/2024 10:39 AM EST Consuelo Joyce NOZZLE OPERATOR CHEMISTRY ORDERABLE S Performing Organization Address [facility] Co de Phone Number [facility] [place] [address] * (ABNORMAL) Comprehensive metabolic panel (05/03/2024 10:24 AM EST) Glucose 95 65 - 199 mg/dL 05/03/2024 11:14 AM EST [facility] Comment:Glucose Concentratio n >=200 mg/dL plus symptoms is consistent with Diabetes Mellitus. Blood Urea Nitrogen 14 8 - 18 mg/dL 05/03/2024 11:14 AM [facility] Creatinine 0.81 0.70 - 1.20 mg/dL 05/03/2024 11:14 AM [facility] Sodium 140 135 - 145 mMol/L 05/03/2024 11:14 AM [facility] Potassium 3.6 3.5 - 5.0 mMol/L 05/03/2024 11:14 AM [facility] Chloride 105 98 - 107 mMol/L 05/03/2024 11:14 AM [facility] Carbon Dioxide 25 22 - 31 mMol/L 05/03/2024 11:14 AM [facility] Anion Gap 10 5 - 15 mMol/L 05/03/2024 11:14 AM [facility] Calcium 9.6 8.5 - 10.5 mg/dL 05/03/2024 11:14 AM [facility] Protein, Total 7.8 6.1 - 8.0 g/dL 05/03/2024 11:14 AM [facility] Albumin 3.8 3.2 - 5.2 g/dL 05/03/2024 11:14 AM [facility] Aspartate Aminotransferase 34(H) <=30 unit/L 05/03/2024 11:14 AM [facility] Alanine Aminotransferase 31(H) 0 - 30 unit/L 05/03/2024 11:14 AM [facility] Alkaline Phosphatase 89 35 - 105 unit/L 05/03/2024 11:14 AM [facility] Bilirubin, Total 0.3 <=1.3 mg/dL 05/03/2024 11:14 AM [facility] Est Glomerular Filtration Rate - Female 91 mL/min/1. 73 m?? 05/03/2024 11:14 AM [facility] Comment: This patient's estimated [...] Foundation Fasting Status No 05/03/2024 11:14 AM [facility] Blood VENOUS BLOOD SPECIMEN / Unknown Venipuncture / Unknown 05/03/2024 10:24 AM EST 05/03/2024 10:39 AM EST Consuelo Carrillo [place] NOZZLE OPERATOR CHEMISTRY ORDERABLE S [facility] [place] [address] * (ABNORMAL) CBC (with Diff) (05/03/2024 10:24 AM EST) White Blood Cell 7.06 4.00 - 9.50 x10(3)/mc L 05/03/2024 10:50 AM [facility] Red Blood Cell 5.31(H) 4.00 - 5.21 x10(6)/mc L 05/03/2024 10:50 AM [facility] Hemoglobin 13.8 11.7 - 15.5 g/dL 05/03/2024 10:50 AM [facility] Hematocrit 42.9 35.7 - 45.8 % 05/03/2024 10:50 AM [facility] Mean Cell Volume 80.8(L) 82.6 - 94.4 fL 05/03/2024 10:50 AM [facility] Mean Cell Hemoglobin 26.0(L) 27.1 - 32.0 pg 05/03/2024 10:50 AM [facility] Mean Cell Hemoglobin Concentration 32.2 31.7 - 35.0 g/dL 05/03/2024 10:50 AM [facility] Platelet 216 145 - 357 x10(3)/mc L 05/03/2024 10:50 AM [facility] Mean Platelet Volume 10.7 7.6 - 12.9 fL 05/03/2024 10:50 AM [facility] RDW Standard Deviation 44.7 37.0 - 46.0 fL 05/03/2024 10:50 AM [facility] RDW coefficient of variation 15.4(H) 11.5 - 14.1 % 05/03/2024 10:50 AM [facility] NRBC% auto 0.0 % 05/03/2024 10:50 AM [facility] NRBC Absolute <0.01 <0.01 x10(3)/mc L 05/03/2024 10:50 AM [facility] Neutrophil % 53.4 % 05/03/2024 10:50 AM [facility] Neutrophil Absolute (ANC) - Automated 3.77 1.70 - 6.10 x10(3)/mc L 05/03/2024 10:50 AM [facility] Lymph % 37.7 % 05/03/2024 10:50 AM [facility] Lymph Absolute 2.66 0.90 - 3.20 x10(3)/mc L 05/03/2024 10:50 AM [facility] Monocyte % 5.7 % 05/03/2024 10:50 AM [facility] Monocyte Absolute 0.40 0.30 - 0.90 x10(3)/mc L 05/03/2024 10:50 AM [facility] Eos % 2.4 % 05/03/2024 10:50 AM [facility] Eos Absolute 0.17 0.00 - 0.40 x10(3)/mc L 05/03/2024 10:50 AM [facility] Basophil % 0.4 % 05/03/2024 10:50 AM [facility] Baso Absolute <0.04 0.00 - 0.10 x10(3)/mc L 05/03/2024 10:50 AM [facility] Immature Gran % 0.4 % 10:50 AM [facility] Immature Gran Absolute <0.04 0.00 - 0.04 x10(3)/mc L 05/03/2024 10:50 AM [facility] Blood VENOUS BLOOD SPECIMEN / Unknown Venipuncture / Unknown 05/03/2024 10:24 AM EST 05/03/2024 10:39 AM EST Consuelo Joyce NOZZLE OPERATOR HEMATOLOGY ORDERABL ES Performing Organization Address City/[facility]/ZIP Co de Phone Number [facility] [place] [address] * (ABNORMAL) CEA (05/03/2024 10:24 AM EST) [...] EST 05/03/2024 10:39 AM EST Consuelo Joyce NOZZLE OPERATOR CHEMISTRY ORDERABLE S [facility] [place] [address] documented in this encounter Visit Diagnoses Diagnosis Malignant neoplasm of overlapping sites of right breast in female, estrogen receptor negative Urgency of urination documented in this encounter Administered Medications Inactive Administered Medications - up to 3 most recent administrations Medication Order MAR Action Action Date Dose Rate Site ado-TRASTuzumab emtansine (Kadcyla) 320 mg in sodium chloride 0.9% 266 mL infusion 320 mg (rounded from 336.3 mg = 3 mg/kg/dose ? 112.1 kg Treatment plan Recorded weight), Intravenous, ONCE, 1 dose, On Yvette 05/03/24 at 1245, Administer over 30 Minutes, Monitor patient for ado-TRASTuzumab emtansine infusion reactions 30 minutes after each subsequent dose if the first dose was well-tolerated., This agent is restricted to outpatient use. Is this drug being given as an outpatient? Yes New Bag 05/03/2024 12:58 PM EST 320 mg 532 mL/hr calcium carbonate (TUMS) chewable tablet 500 mg 500 mg, Oral, ONCE, 1 dose, On Yvette 05/03/24 at 1145, Routine Given 05/03/2024 12:53 PM EST 500 mg denosumab (Xgeva) (120 mg/1.7 mL) subcutaneous injection 120 mg 120 mg, Subcutaneous, ONCE, 1 dose, On Yvette 05/03/24 at 1145, - Bring to room temperature 15-30 minutes before administration. - Call provider for corrected calcium less than 8.5 mg/dL or CrCl less than 30 mL/min., This agent is restricted to outpatient use. Is this drug being given as an outpatient? Yes Given 05/03/2024 1:31 PM EST 120 mg Left Arm ondansetron (Zofran) tablet 8 mg 8 mg, Oral, ONCE, 1 dose, On Yvette 05/03/24 at 1145, Administer prior to chemotherapy, Routine Given 05/03/2024 12:52 PM EST 8 mg sodium chloride 0.9 % (flush) (BD PosiFlush Normal Saline 0.9) flush 5-20 mL 5-20 mL, Intravenous, EVERY 1 MIN PRN, Starting on Yvette 05/03/24 at 1126, Until Tue05/04/24 at 0436, Line Care, Flush pertains to all indwelling lines. Flush per protocol found in the job aid using the link provided on this medication record. Refer to Intravenous (IV) Job Aid: Adult Flushing & Catheter Care (7407) job aid for additional information regarding guidelines and administration., Routine Given 05/03/2024 2:00 PM EST 20 mLs sodium chloride 0.9% infusion 500 mL, Intravenous, ONCE, 1 dose, On Yvette 05/03/24 at 1145 New Bag 05/03/2024 12:58 PM EST 500 mLs documented in this encounter Care Teams Construction Job Cost Estimator Relationship Specialty Start Date End Date Ryan Betancourt MD [address] [place] [phone] PCP - General Family Medicine 07/29/22 documented as of this encounter
--- OUTSIDE RECORDS SUMMARY | 2024-06-01 20:36 | XMS_ITS | Encounter Summary ---
Author Organization [facility] Address [facility] [place] [address] Care Team Providers Care Plate Washer Name Role Phone Ryan Betancourt MD Primary Care Provider [phone] Encounter Details Date Type Department Care Team (Late st Contact Info) Description 04/10/2024 8:00 AM EST Office Visit Hematology [place] [phone] Consuelo Joyce APRN [facility] [place] [address] Malignant neoplasm of overlapping sites of right [...] Sign Reading Time Taken Comments Blood Pressure 116/77 04/10/2024 7:45 AM EST Pulse 79 04/10/2024 7:45 AM EST Temperature 37 ??C (98.6 ??F) 04/10/2024 7:45 AM EST Respiratory Rate 16 04/10/2024 7:45 AM EST Oxygen Saturation 96% 04/10/2024 7:45 AM EST Inhaled Oxygen Concentration - - Weight 111.4 kg (245 lb 9.5 oz) 04/10/2024 7:45 AM EST Height 164.2 cm (5' 4.65) 04/10/2024 7:45 AM ES T Body Mass Index 41.32 04/10/2024 7:45 AM EST documented in this encounter Progress Notes * Consuelo Joyce, MANAGER SOLAR - 04/10/2024 8:00 AM EST Patient ID: Soy San is [...] plan for every 6 weeks started 02/24/2023. 04/10/2025 On TDM1 Breast pain: not really that [...] Recent biopsy of skin c/w breast cancer ER/DC- HER+ same as her other site of [...] most 3 x per cycle [facility]. 09/01/2023 On [place] q 3 [...] bathroom and wipe all over again. , reportsshe has hemorrhoids as well. 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 PET CT 04/07/2023: [...] in the shower. Subsequently called [facility] womans wellness, seen that day. 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 No 911 exposure Objective Patient Vitals for the past 24 hrs: Temp Pulse Resp BP SpO2 04/10/24 0745 37 ??C (98.6 ??F) 79 16 116/77 96 % Reviewed in flowsheet, WNL Wt Readings from Last 3 Encounters: 04/10/24 111.4 kg (245 lb 9.5 oz) 03/20/24 111.2 kg (245 lb 2.4 oz) 02/28/24 113.7 kg (250 lb 10.6 oz) Physical exam Constitutional: She is oriented [...] Results: Lab Results Component Value Date WBC 5.19 04/10/2024 HGB 13.1 04/10/2024 HCT 40.0 04/10/2024 MCV 80.8 (L) 04/10/2024 PLATELET 200 04/10/2024 Lab Results Component Value Date NEUTROABS 2.79 04/10/2024 Lab Results Component Value Date NA 141 04/10/2024 K 3.4 (L) 04/10/2024 CL 107 04/10/2024 CO2 24 04/10/2024 BUN 12 04/10/2024 CREATININE 0.82 04/10/2024 GLUCOSE 107 04/10/2024 CALCIUM 8.6 04/10/2024 ESTGFR 90 04/10/2024 Lab Results Component Value Date ALT 34 (H) 04/10/2024 AST 35 (H) 04/10/2024 ALKPHOS 75 04/10/2024 BILITOT 0.3 04/10/2024 ALBUMIN 3.8 04/10/2024 PROT 7.6 04/10/2024 Carcinoembryonic Antigen Date Value 03/20/2024 6.2 ng/ml [...] mg/kg - CT/BS: stable and breast MRI shows complete imaging response. -persistent breast pain on right. imaging shows improvement as above - swallow study. Some dysphagia. - optho appt pending. Saw Dr. Oneill [facility] 01/11, f/u on 01/25 referral placed to speech therapy per Mai. 3. denosumab q6 weeks - with every other infusion, due next time 4. Primary breast surgical consultation: Not recommended at this time per most recent tumor board discussion. RTC in 3 weeks with labs, MD/GAME DESIGNER/CREATIVE DIRECTOR, and infusion Total time spent: 40 minutes with > 50% spend in discussion of above Future Appointments Date Time Provider Department Center 04/10/2024 9:30 AM LEB INFUSION THERAPY [facility] [address] [place] [address] 05/03/2024 10:00 AM ACCESS ROOM [facility] [address] [place] [address] 05/03/2024 11:00 AM Consuelo Joyce APRN [facility] HEM ONC [facility] 05/03/2024 12:30 PM LEB INFUSION THERAPY [facility] [address] [place] [address] 05/24/2024 7:30 AM ACCESS ROOM [address] 05/24/2024 8:30 AM LEB INFUSION THERAPY [facility] [address] [place] [address] 06/14/2024 12:00 PM ACCESS ROOM [facility] [address] [place] [address] 06/14/2024 1:00 PM Kavitha Rai MD [facility] HEM ONC [facility] 06/14/2024 2:30 PM LEB INFUSION THERAPY [facility] [address] [place] [address] 07/05/2024 10:30 AM ACCESS ROOM [address] 07/05/2024 11:30 AM Consuelo Joyce APRN [facility] HEM ONC [facility] 07/05/2024 1:00 PM LEB INFUSION THERAPY [facility] [address] [place] [address] 08/16/2024 9:20 AM Luz Jose, OD [facility] OPHT 4B [facility] 01/14/2025 8:30 AM Anna Oneill, PhD [facility] PSY 5D Behavioral H documented in this encounter Plan of Treatment Upcoming Encounters Date Type Department Care Team (Late st Contact Info) Description 06/14/2024 8:00 AM EST Hospital Encounter [place] [address] Consuelo Joyce APRN [facility] [place] [address] 06/14/2024 8:45 AM EST Appointment XRay at [address] [place] [address] Kavitha Rai MD [facility] DR HEMATOLOGY [place] [address] 06/14/2024 9:45 AM EST Appointment Hematology and Oncology at [place] [phone] 06/14/2024 11:00 AM EST Appointment Nuclear Medicine at [place] [phone] Consuelo Joyce [facility] [place] [address] 06/14/2024 1:00 PM EST Office Visit Hematology [place] [address] Kavitha Rai MD [facility] DR HEMATOLOGY [place] [address] 06/14/2024 2:30 PM EST Appointment Hematology [place] [address] 07/05/2024 10:30 AM EDT Appointment Hematology [place] [address] 07/05/2024 11:30 AM EDT Office Visit Hematology [place] [address] Consuelo Joyce [facility] [place] [address] 07/05/2024 1:00 PM EDT Appointment Hematology [place] [address] 08/16/2024 9:20 AM EDT Office Visit Ophthalmology at [place] [phone] Luz Jose, CARSON [facility] [address] 01/14/2025 8:30 AM EDT Office Visit Psychiatry [place] [address] Anna Oneill, PhD [facility] [place] [address] documented as of this encounter Visit Diagnoses Diagnosis Malignant neoplasm of overlapping sites of right breast in female, estrogen receptor negative Malignant neoplasm of right breast in female, estrogen receptor negative, unspecified site of breast 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
--- OUTSIDE RECORDS SUMMARY | 2024-06-01 20:36 | XMS_ITS | Encounter Summary ---
Author Organization [facility] Address [facility] [place] [address] Care Team Providers Care Inventory Control Supervisor Name Role Phone Ryan Betancourt MD Primary Care Provider [phone] Encounter Details Date Type Department Care Team (Latest Contact Info) Description 03/20/2024 Travel Social History Tobacco Use Types Packs/Day [...] place to sleep or slept in a long term (including now)? No 07/29/2022 Sex and Gender Information Value Date Recorded Sex Assigned at Not on file Gender Identity Not on file Sexual Orientation Not on file documented as of this encounter Plan of Treatment Upcoming Encounters Date Type Department Care Team (Late st Contact Info) Description 06/14/2024 8:00 AM EST Hospital Encounter [place] [address] Consuelo Joyce APRN [facility] [place] [address] 06/14/2024 8:45 AM EST Appointment XRay at [address] [place] [address] Kavitha Rai MD [facility] DR HEMATOLOGY [place] [address] 06/14/2024 9:45 AM EST Appointment Hematology [place] [address] 06/14/2024 11:00 AM EST Appointment [place] [address] Consuelo Joyce APRN [facility] [place] [address] 06/14/2024 1:00 PM EST Office Visit Hematology [place] [address] Kavitha Rai MD [facility] HEMATOLOGY [place] [address] 06/14/2024 2:30 PM EST Appointment Hematology [place] [address] 07/05/2024 10:30 AM EDT Appointment Hematology and Oncology at [place] [phone] 07/05/2024 11:30 AM EDT Office Visit Hematology and Oncology at [place] [phone] Consuelo Joyce APRN [facility] [place] [address] 07/05/2024 1:00 PM EDT Appointment Hematology and Oncology at [place] [address] 08/16/2024 9:20 AM EDT Office Visit Ophthalmology at [place] [phone] Luz Jose, OD [facility] [place] [address] 01/14/2025 8:30 AM EDT Office Visit Psychiatry and Behavioral Health at [place] [address] Anna Oneill, PhD [facility] [place] [address] documented as of this encounter Visit Diagnoses Not on filedocumented in this encounter Care Teams Inventory Control Supervisor Relationship Specialty Start Date End Date Ryan Betancourt MD [address] [place] [phone] PCP - General Family Medicine 07/29/22 documented as of this encounter
--- OUTSIDE RECORDS SUMMARY | 2024-06-01 20:36 | XMS_ITS | Encounter Summary ---
Author Organization [facility] Address [facility] [place] [address] Care Team Providers Care School Bus Operator Name Role Phone Ryan Betancourt MD Primary Care Provider [phone] Encounter Details Date Type Department Care Team (Latest Contact Info) Description 04/10/2024 Travel Social History Tobacco Use Types Packs/Day [...] place to sleep or slept in a prison (including now)? No 07/29/2022 Sex and Gender Information Value Date Recorded Sex Assigned at Not on file Gender Identity Not on file Sexual Orientation Not on file documented as of this encounter Plan of Treatment Upcoming Encounters Date Type Department Care Team (Late st Contact Info) Description 06/14/2024 8:00 AM EST Hospital Encounter [place] [address] Consueol Joyce APRN [facility] [place] [address] 06/14/2024 8:45 AM EST Appointment XRay at [address] [place] [address] Kavitha Rai MD [facility] DR [place] [address] 06/14/2024 9:45 AM EST Appointment Hematology [place] [address] 06/14/2024 11:00 AM EST Appointment [place] [address] Consuelo Joyce APRN [facility] [address] 06/14/2024 1:00 PM EST Office Visit Hematology [place] [address] Kavitha Rai MD [facility] [place] [address] 06/14/2024 2:30 PM EST Appointment Hematology [place] [address] 07/05/2024 10:30 AM EDT Appointment Hematology and Oncology at [place] [phone] 07/05/2024 11:30 AM EDT Office Visit Hematology and Oncology at [place] [phone] Consuelo Joyce APRN [facility] [place] [address] 07/05/2024 1:00 PM EDT Appointment Hematology and Oncology at [place] [address] 08/16/2024 9:20 AM EDT Office Visit Ophthalmology at [place] [phone] Luz Jose, OD [facility] [place] [address] 01/14/2025 8:30 AM EDT Office Visit Psychiatry and Behavioral Health at [place] [address] Anna Oneill, PhD [facility] [place] [address] documented as of this encounter Visit Diagnoses Not on filedocumented in this encounter Care Teams School Bus Operator Relationship Specialty Start Date End Date Ryan Betancourt MD [address] [place] [phone] PCP - General Family Medicine 07/29/22 documented as of this encounter
--- OUTSIDE RECORDS SUMMARY | 2024-06-01 20:37 | XMS_ITS | Encounter Summary ---
[place] [address] Care Team Providers Care Propulsion Machinery Service Engineer Name Role Phone Ryan Betancourt MD Primary Care Provider [phone] Reason for Visit * Treatment/Therapy Plan Authorization (Routine) - Authorized Specialty Diagnoses / Procedures Referred By Contdede t Referred To Contact Hematology and Oncology Diagnoses Malignant neoplasm of overlapping sites of right breast in female, estrogen receptor negative Consuelo Joyce APRN [facility] [place] [address] [facility] [address] [place] [address] Referral ID Status Reason Start Date Expiration Date V isits Requested Visits Authorized [id number] Authorized 11/03/2023 2024 99 108 Encounter Details Date Type Department Care Team (Latest Contact Info) Description 02/28/2024 7:54 AM EST Hospital Encounter [place] [address] Malignant neoplasm of overlapping sites [...] place to sleep or slept in a custodial (including now)? No 07/29/2022 Sex and Gender [...] as of this encounter Progress Notes * Day Kang, RN - 02/28/2024 12:09 PM EST Patient Name: Soy San Patient Age: 43 y.o. Birthdate: 1980 Admit date: 02/28/2024 Attending Physician: No att. providers found TIME TREATMENT STARTED: 1137 TIME TREATMENT ENDED: 1240 Soy San, 43 y.o. female with diagnosis of Breast Ca is here for chemotherapy infusion of Kadcyla. CYCLE: 5 DAY: 1 S: Pt. offers no complaints at this time. O: Chemotherapy orders independently verified for correct drug name, route and dosage per patient'sheight, weight and BSA by Day Kang RN and onsite pharmacist REACTIONS (DESCRIPTION, TIME, INTERVENTION AND EFFECTIVENESS) none A: Pt. Tolerated treatment well. Constant Soo San confirms that all questions and issues have been addressed. P: Return to clinic as scheduled. Pt. chemo teaching instructions included: During clinic hours (8am-5pm Tuesday-Tuesday): pt. can call [phone] with questions or concerns. After clinic hours (5pm-8am Tuesday-Tuesday and weekends) pt can call [phone] and ask for the computed tomography technician/oncologist medical scientific liaison. Soo verbalized understanding of potential chemotherapy side effects and home care including but notlimited to- handwashing to prevent infection, signs and symptoms of low blood counts (fever, fatigue, bleeding), to call with a fever of 100.4 or greater, any significant constipation/diarrhea, importance of nutrition and fluid intake (drinking at least 32-64 ounces of non-caffeinated beverages/day), mouth care. Soo verbalized understanding of how to take prescription medications given for home use after chemotherapy. documented in this encounter Plan of Treatment Upcoming Encounters Date Type Department Care Team (Late st Contact Info) Description 06/14/2024 8:00 AM EST Hospital Encounter [place] [address] Consuelo Joyce APRN [facility] [place] [address] 06/14/2024 8:45 AM EST Appointment XRay at [address] [place] [address] Kavitha Rai MD [facility] [address] [place] [address] 06/14/2024 9:45 AM EST Appointment Hematology [place] [address] 06/14/2024 11:00 AM EST Appointment Nuclear Medicine at [place] [address] Consuelo Joyce APRN [facility] [place] [address] 06/14/2024 1:00 PM EST Office Visit Hematology and Oncology at [place] [address] Kavitha Rai MD [facility] DR HEMATOLOGY [place] [address] 06/14/2024 2:30 PM EST Appointment Hematology and Oncology at [place] [address] 07/05/2024 10:30 AM EDT Appointment Hematology and Oncology at [place] [address] 07/05/2024 11:30 AM EDT Office Visit Hematology and Oncology at [place] [address] Consuelo Joyce DATAPOWER DEVELOPER [facility] [place] [address] 07/05/2024 1:00 PM EDT Appointment Hematology and Oncology at [place] [address] 08/16/2024 9:20 AM EDT Office Visit Ophthalmology at [place] [address] Luz Jose, OD [facility] [place] [address] 01/14/2025 8:30 AM EDT Office Visit Psychiatry and Behavioral Health at [place] [address] Anna Oneill, PhD [facility] [place] [address] documented as of this encounter Visit Diagnoses [...] Recorded weight), Intravenous, ONCE, 1 dose, On Tue02/28/24 at 1230, Administer over 30 Minutes, Monitor patient for ado-TRASTuzumab emtansine infusion reactions 30 minutes after each subsequent dose if the first dose was well-tolerated., This agent is restricted to outpatient use. Is this drug being given as an outpatient? Yes New Bag 02/28/2024 12:02 PM EST 320 mg 532 mL/hr ondansetron (Zofran) tablet 8 mg 8 mg, Oral, ONCE, 1 dose, On Tue02/28/24 at 1130, Administer prior to chemotherapy, Routine Given 02/28/2024 12:00 PM EST 8 mg documented in this encounter Care Teams Propulsion Machinery Service Engineer Relationship Specialty Start Date End Date Ryan Betancourt MD [address] [place] [phone] PCP - General Family Medicine 07/29/22 documented as of this encounter
--- OUTSIDE RECORDS SUMMARY | 2024-06-01 20:37 | XMS_ITS | Encounter Summary ---
Author Organization [facility] [place] [address] Care Team Providers Care Photographer Motion Picture Name Role Phone Ryan Betancourt MD Primary Care Provider [phone] Reason for Visit * Treatment/Therapy Plan Authorization (Routine) - Authorized Specialty Diagnoses / Procedures Referred By Contac t Referred To Contact Hematology and Oncology Diagnoses Malignant neoplasm of overlapping sites of right breast in female, estrogen receptor negative Consuelo Joyce APRN [facility] [place] [address] [address] Referral ID Status Reason Start Date Expiration Date V isits Requested Visits Authorized [id number] Authorized 11/03/2023 2024 [id number] 108 Encounter Details Date Type Department Care Team (Latest Contact Info) Description 02/28/2024 7:55 AM EST - 02/28/2024 11:59 PM EST Hospital Encounter [place]ematology [place] [address] Malignant neoplasm of overlapping sites [...] as of this encounter Progress Notes * Samantha Collado RN - 02/28/2024 8:09 AM EST Patient Name: Soy San Patient Age: 43 y.o. Birthdate: 1980 Admit date: 02/28/2024 Attending Physician: No att. providers found Access visit. See MAR and/or flowsheet. documented in this encounter Plan of Treatment Upcoming Encounters Date Type Department Care Team (Late st Contact Info) Description 06/14/2024 8:00 AM EST Hospital [place] [address] Consuelo Joyce APRN [facility] [place] [address] 06/14/2024 8:45 AM EST Appointment XRay at [address] [place] [address] Kavitha Rai MD [facility] [address] HEMATOLOGY [place] [address] 06/14/2024 9:45 AM EST Appointment Hematology [place] [address] 06/14/2024 11:00 AM EST [place] [address] [facility] [place] [address] 06/14/2024 1:00 PM EST Office Visit Hematology [place] [address] Kavitha Rai MD [facility] DR HEMATOLOGY [place] [address] 06/14/2024 2:30 PM EST Appointment Hematology [place] [address] 07/05/2024 10:30 AM EDT Appointment Hematology [place] [address] 07/05/2024 11:30 AM EDT Office Visit Hematology [place] [address] Consuelo Joyce APRN [facility] [place] [address] 07/05/2024 1:00 PM EDT Appointment Hematology and Oncology at [place] [address] 08/16/2024 9:20 AM EDT Office Visit Ophthalmology at [place] [address] Luz Jose, CARSON [facility] [place] [address] 01/14/2025 8:30 AM EDT Office Visit Psychiatry and Behavioral Health at [place] [address] Anna Oneill, PhD [facility] [place] [address] Scheduled Orders Name Type Priority Associated Diagnoses Orde r Schedule CEA Lab Routine Malignant neoplasm of overlapping sites of right breast in female, estrogen receptor negative Every 3 weeks for 15 Occurrences starting 02/28/2024 until 02/27/2025 documented as of this encounter Procedures Procedure Name Priority Date/Time Associated Diagnosis Comments CANCER ANTIGEN 15-3 STAT 02/28/2024 8 :09 AM EST Malignant neoplasm of overlapping sites of right breast in female, estrogen receptor negative CBC (WITH DIFF) STAT 02/28/2024 8:09 AM EST Malignant neoplasm of overlapping sites of right breast in female, estrogen receptor negative CEA Routine 02/28/2024 8:09 AM EST Malignant neoplasm of overlapping sites of right breast in female, estrogen receptor negative COMPREHENSIVE METABOLIC PANEL STAT 02/28/2024 8:09 AM EST Malignant neoplasm of overlapping sites of right breast in female, estrogen receptor negative documented in this encounter Results * (ABNORMAL) CEA (02/28/2024 8:09 AM EST) Carcinoembryonic Antigen 5.7(H) <=3.8 ng/ml 02/28/2024 9:10 AM EST [facility] Comment: Some smokers may have elevated CEA, generally < 5.5 ng/mL. This result was generated using a Deepak Dequan immunoassay. ??Results obtained from other methods or manufacturers cannot be used interchangeably with this method. Blood VENOUS BLOOD SPECIMEN / Unknown Mediport Line / Unknown 02/28/2024 8:09 AM EST 02/28/2024 8:28 AM EST Kavitha Rai MD CHEMISTRY ORDERABLES Performing Organization Address [facility] Co de Phone Number [facility] [place] [address] * (ABNORMAL) Cancer antigen 15-3 (02/28/2024 8:09 AM EST) CA 15-3 34(H) <=25 unit/mL 02/28/2024 9:10 AM EST [facility] Comment:This result was gene rated using a Deepak Dequan immunoassay. Results obtained from other methods or manufacturers cannot be used interchangeably with this method. Blood VENOUS BLOOD SPECIMEN / Unknown Mediport Line / Unknown 02/28/2024 8:09 AM EST 02/28/2024 8:28 AM EST Consuelo Joyce APRN CHEMISTRY ORDERABLE S Performing Organization Address [facility] Co de Phone Number [facility] [place] [address] * (ABNORMAL) Comprehensive metabolic panel (02/28/2024 8:09 AM EST) Glucose 111 65 - 199 mg/dL 02/28/2024 9:37 AM EST [facility] Comment:Glucose Concentratio n >=200 mg/dL plus symptoms is consistent with Diabetes Mellitus. Blood Urea Nitrogen 14 8 - 18 mg/dL 02/28/2024 9:37 AM EST [facility] Creatinine 0.83 0.70 - 1.20 mg/dL 02/28/2024 9:37 AM [facility] Sodium 139 135 - 145 mMol/L 02/28/2024 9:37 AM [facility] Potassium 3.6 3.5 - 5.0 mMol/L 02/28/2024 9:37 AM [facility] Chloride 103 98 - 107 mMol/L 02/28/2024 9:37 AM [facility] Carbon Dioxide 26 22 - 31 mMol/L 02/28/2024 9:37 AM [facility] Anion Gap 10 5 - 15 mMol/L 02/28/2024 9:37 AM [facility] Calcium 9.1 8.5 - 10.5 mg/dL 02/28/2024 9:37 AM [facility] Protein, Total 7.3 6.1 - 8.0 g/dL 02/28/2024 9:37 AM [facility] Albumin 3.9 3.2 - 5.2 g/dL 02/28/2024 9:37 AM [facility] Aspartate Aminotransferase 31(H) <=30 unit/L 02/28/2024 9:37 AM [facility] Alanine Aminotransferase 38(H) 0 - 30 unit/L 02/28/2024 9:37 AM [facility] Alkaline Phosphatase 77 35 - 105 unit/L 02/28/2024 9:37 AM [facility] Bilirubin, Total 0.3 <=1.3 mg/dL 02/28/2024 9:37 AM [facility] Est Glomerular Filtration Rate - Female 89 mL/min/1. 73 m?? 02/28/2024 9:37 AM [facility] Comment: This patient's estimated [...] Calculator [employer] Fasting Status No 02/28/2024 9:37 AM [facility] Blood VENOUS BLOOD SPECIMEN / Unknown Mediport Line / Unknown 02/28/2024 8:09 AM EST 02/28/2024 8:28 AM EST Consuelo Joyce CAB DRIVER CHEMISTRY ORDERABLE S [facility] [place] [address] * (ABNORMAL) CBC (with Diff) (02/28/2024 8:09 AM EST) White Blood Cell 5.59 4.00 - 9.50 x10(3)/mc L 02/28/2024 8:34 AM [facility] Red Blood Cell 5.01 4.00 - 5.21 x10(6)/mc L 02/28/2024 8:34 AM [facility] Hemoglobin 13.2 11.7 - 15.5 g/dL 02/28/2024 8:34 AM [facility] Hematocrit 41.0 35.7 - 45.8 % 02/28/2024 8:34 AM [facility] Mean Cell Volume 81.8(L) 82.6 - 94.4 fL 02/28/2024 8:34 AM [facility] Mean Cell Hemoglobin 26.3(L) 27.1 - 32.0 pg 02/28/2024 8:34 AM [facility] Mean Cell Hemoglobin Concentration 32.2 31.7 - 35.0 g/dL 02/28/2024 8:34 AM [facility] Platelet 248 145 - 357 x10(3)/mc L 02/28/2024 8:34 AM [facility] Mean Platelet Volume 10.1 7.6 - 12.9 fL 02/28/2024 8:34 AM [facility] RDW Standard Deviation 41.5 37.0 - 46.0 fL 02/28/2024 8:34 AM [facility] RDW coefficient of variation 14.2(H) 11.5 - 14.1 % 02/28/2024 8:34 AM [facility] NRBC% auto 0.0 % 02/28/2024 8:34 AM [facility] NRBC Absolute <0.01 <0.01 x10(3)/mc L 02/28/2024 8:34 AM [facility] Neutrophil % 52.1 % 02/28/2024 8:34 AM [facility] Neutrophil Absolute (ANC) - Automated 2.91 1.70 - 6.10 x10(3)/mc L 02/28/2024 8:34 AM [facility] Lymph % 37.4 % 02/28/2024 8:34 AM [facility] Lymph Absolute 2.09 0.90 - 3.20 x10(3)/mc L 02/28/2024 8:34 AM [facility] Monocyte % 6.4 % 02/28/2024 8:34 AM [facility] Monocyte Absolute 0.36 0.30 - 0.90 x10(3)/mc L 02/28/2024 8:34 AM [facility] Eos % 3.0 % 02/28/2024 8:34 AM [facility] Eos Absolute 0.17 0.00 - 0.40 x10(3)/mc L 02/28/2024 8:34 AM [facility] Basophil % 0.7 % 02/28/2024 8:34 AM [facility] Baso Absolute 0.04 0.00 - 0.10 x10(3)/mc L 02/28/2024 8:34 AM [facility] Immature Gran % 0.4 % 8:34 AM [facility] Immature Gran Absolute <0.04 0.00 - 0.04 x10(3)/mc L 02/28/2024 8:34 AM EST [facility] Blood VENOUS BLOOD SPECIMEN / Unknown Mediport Line / Unknown 02/28/2024 8:09 AM EST 02/28/2024 8:29 AM EST Consuelo Joyce CAB DRIVER HEMATOLOGY ORDERABL ES [facility] [place] [address] documented in this encounter Visit Diagnoses Diagnosis [...] Intravenous, EVERY 1 MIN PRN, Starting on Tue02/28/24 at 0758, Until Tue02/29/24 at 0435, Line Care, Flush pertains to all indwelling lines. Flush per protocol found in the job aid using the link provided on this medication record. Refer to Intravenous (IV) Job Aid: Adult Flushing & Catheter Care (4932) job aid for additional information regarding guidelines and administration., Routine Given 02/28/2024 8:08 AM EST 20 mLs documented in this encounter Care Teams Photographer Motion Picture Relationship Specialty Start Date End Date Ryan Betancourt MD [address] [place] [phone] PCP - General Family Medicine 07/29/22 documented as of this encounter
--- OUTSIDE RECORDS SUMMARY | 2024-06-01 20:37 | XMS_ITS | Encounter Summary ---
Author Organization [facility] [place] [address] Care Team Providers Care Steam Room Attendant Name Role Phone Ryan Betancourt MD Primary Care Provider [phone] Reason for Visit * Treatment/Therapy Plan Authorization (Routine) - Authorized Specialty Diagnoses / Procedures Referred By Contac t Referred To Contact Hematology and Oncology Diagnoses Malignant neoplasm of overlapping sites of right breast in female, estrogen receptor negative Consuelo Jyoce APRN [facility] [place] [address] [address] Referral ID Status Reason Start Date Expiration Date V isits Requested Visits Authorized [id number] Authorized 11/03/2023 2024 99 108 Encounter Details Date Type Department Care Team (Latest Contact Info) Description 02/07/2024 6:50 AM EDT - 02/07/2024 11:59 PM EDT Hospital Encounter Hematology [place] [address] Malignant neoplasm of overlapping sites [...] Progress Notes * Day Kang, RN - 02/07/2024 10:19 AM EDT Patient Name: Soy San Patient Age: 43 y.o. Birthdate: 1980 Admit date: 02/07/2024 Attending Physician: No att. providers found TIME TREATMENT STARTED: 0950 TIME TREATMENT ENDED: 1130 Soy San, 43 y.o. female with diagnosis of Breast Ca is here for chemotherapy infusion of Kadcyla and IVF. CYCLE: 4 DAY: 1 S: Pt. offers no complaints at this time. O: Chemotherapy orders independently verified for correct drug name, route and dosage per patient'sheight, weight and BSA by Day Kang RN and onsite pharmacist REACTIONS (DESCRIPTION, TIME, INTERVENTION AND EFFECTIVENESS) none A: Pt. Tolerated treatment well. Constant Soo aSn confirms that all questions and issues have been addressed. P: Return to clinic as scheduled. Pt. chemo teaching instructions included: During clinic hours (8am-5pm Tuesday-Tuesday): pt. can call [phone] with questions or concerns. After clinic hours (5pm-8am Tuesday-Tuesday and weekends) pt can call [phone] and ask for the cylinder batcher/oncologist franchise consultant. Soo verbalized understanding of potential chemotherapy side [...] AM EST Hospital Encounter [place] [address] Consuelo Joyce APRN [facility] [place] [address] 06/14/2024 8:45 AM EST Appointment XRay at [address] [place] [address] Kavitha Rai MD [facility] DR HEMATOLOGY AND ONCOLOGY [place], [place] [id number] 06/14/2024 9:45 AM EST Appointment Hematology [place] [address] 06/14/2024 11:00 AM EST Appointment Nuclear Medicine at [place] [address] Consuelo Joyce APRN [facility] [place] [address] 06/14/2024 1:00 PM EST Office Visit Hematology and Oncology at [place] [address] Kavitha Rai MD [facility] [address] [place] [address] 06/14/2024 2:30 PM EST Appointment Hematology and Oncology at [place] [address] 07/05/2024 10:30 AM EDT Appointment Hematology and Oncology at [place] [address] 07/05/2024 11:30 AM EDT Office Visit Hematology and Oncology at [place] [address] Consuelo Joyce RN [employer] [facility] [place] [address] 07/05/2024 1:00 PM EDT Appointment Hematology and Oncology at [place] [phone] 08/16/2024 9:20 AM EDT Office Visit Ophthalmology at [place] [phone] Luz Jose OD [facility] [place] [address] 01/14/2025 8:30 AM EDT Office Visit Psychiatry and Behavioral Health at [place] [phone] Anna Oneill, PhD [facility] [place] [address] Scheduled Orders Name Type Priority Associated Diagnoses Orde r Schedule CEA Lab Routine Malignant neoplasm of overlapping sites of right breast in female, estrogen receptor negative Every 3 weeks for 15 Occurrences starting 02/02/2024 until 02/01/2025, 2 completed documented as of this encounter Results * (ABNORMAL) CEA (02/28/2024 8:09 AM EST) Carcinoembryonic Antigen 5.7(H) <=3.8 ng/ml 02/28/2024 9:10 AM EST [facility] Comment: Some smokers may have elevated CEA, generally < 5.5 ng/mL. This result was generated using a Deepak Dequan immunoassay. ??Results obtained from other methods or manufacturers cannot be used interchangeably with this method. Blood VENOUS BLOOD SPECIMEN / Unknown Mediport Line / Unknown 02/28/2024 8:09 AM EST 02/28/2024 8:28 AM EST Kavitha Rai MD CHEMISTRY ORDERABLES Performing Organization Address City/[facility]/ZIP Co de Phone Number [facility] [place] [address] * (ABNORMAL) Cancer antigen 15-3 (02/07/2024 7:05 AM EDT) CA 15-3 34(H) <=25 unit/mL 02/07/2024 7:59 AM EDT [facility] Comment:This result was gene rated using a Deepak Dequan immunoassay. Results obtained from other methods or manufacturers cannot be used interchangeably with this method. Blood VENOUS BLOOD SPECIMEN / Unknown Mediport Line / Unknown 02/07/2024 7:05 AM EDT 02/07/2024 7:14 AM EDT Kavitha Rai MD CHEMISTRY ORDERABLES Performing Organization Address City/[facility]/ZIP Co de Phone Number [facility] [place] [address] * (ABNORMAL) Comprehensive metabolic panel (02/07/2024 7:05 AM EDT) Glucose 146 65 - 199 mg/dL 02/07/2024 7:50 AM [facility] Comment:Glucose Concentratio n >=200 mg/dL plus symptoms is consistent with Diabetes Mellitus. Blood Urea Nitrogen 13 8 - 18 mg/dL 02/07/2024 7:50 AM [facility] Creatinine 0.82 0.70 - 1.20 mg/dL 02/07/2024 7:50 AM [facility] Sodium 138 135 - 145 mMol/L 02/07/2024 7:50 AM [facility] Potassium 3.4(L) 3.5 - 5.0 mMol/L 02/07/2024 7:50 AM [facility] Chloride 104 98 - 107 mMol/L 02/07/2024 7:50 AM [facility] Carbon Dioxide 25 22 - 31 mMol/L 02/07/2024 7:50 AM [facility] Anion Gap 9 5 - 15 mMol/L 02/07/2024 7:50 AM [facility] Calcium 9.1 8.5 - 10.5 mg/dL 02/07/2024 7:50 AM [facility] Protein, Total 6.9 6.1 - 8.0 g/dL 02/07/2024 7:50 AM [facility] Albumin 3.6 3.2 - 5.2 g/dL 02/07/2024 7:50 AM [facility] Aspartate Aminotransferase 26 <=30 unit/L 02/07/2024 7:50 AM [facility] Alanine Aminotransferase 32(H) 0 - 30 unit/L 02/07/2024 7:50 AM [facility] Alkaline Phosphatase 77 35 - 105 unit/L 02/07/2024 7:50 AM [facility] Bilirubin, Total 0.3 <=1.3 mg/dL 02/07/2024 7:50 AM EDT [facility] Est Glomerular Filtration Rate - Female 90 mL/min/1. 73 m?? 02/07/2024 7:50 AM EDT [facility] Comment: This patient's estimated GFR [...] Calculator [employer] Fasting Status No 02/07/2024 7:50 AM EDT [facility] Blood VENOUS BLOOD SPECIMEN / Unknown Mediport Line / Unknown 02/07/2024 7:05 AM EDT 02/07/2024 7:14 AM EDT Kavitha Rai MD CHEMISTRY ORDERABLES [facility] [place] [address] * CBC (with Diff) (02/07/2024 7:05 AM EDT) White Blood Cell 5.59 4.00 - 9.50 x10(3)/mcL 02/07/2024 7:24 AM EDT [facility] Red Blood Cell 4.80 4.00 - 5.21 x10(6)/mcL 02/07/2024 7:24 AM EDT [facility] Hemoglobin 13.1 11.7 - 15.5 g/dL 02/07/2024 7:24 AM EDT [facility] Hematocrit 40.0 35.7 - 45.8 % 02/07/2024 7:24 AM EDT [facility] Mean Cell Volume 83.3 82.6 - 94.4 fL 02/07/2024 7:24 AM [facility] Mean Cell Hemoglobin 27.3 27.1 - 32.0 pg 02/07/2024 7:24 AM [facility] Mean Cell Hemoglobin Concentration 32.8 31.7 - 35.0 g/dL 02/07/2024 7:24 AM [facility] Platelet 247 145 - 357 x10(3)/mcL 02/07/2024 7:24 AM [facility] Mean Platelet Volume 10.5 7.6 - 12.9 fL 02/07/2024 7:24 AM [facility] RDW Standard Deviation 42.1 37.0 - 46.0 fL 02/07/2024 7:24 AM [facility] RDW coefficient of variation 13.8 11.5 - 14.1 % 02/07/2024 7:24 AM [facility] NRBC% auto 0.0 % 02/07/2024 7:24 AM [facility] NRBC Absolute <0.01 <0.01 x10(3)/mcL 02/07/2024 7:24 AM [facility] Neutrophil % 59.7 % 02/07/2024 7:24 AM [facility] Neutrophil Absolute (ANC) - Automated 3.34 1.70 - 6.10 x10(3)/mcL 02/07/2024 7:24 AM [facility] Lymph % 31.3 % 02/07/2024 7:24 AM [facility] Lymph Absolute 1.75 0.90 - 3.20 x10(3)/mcL 02/07/2024 7:24 AM [facility] Monocyte % 5.9 % 02/07/2024 7:24 AM [facility] Monocyte Absolute 0.33 0.30 - 0.90 x10(3)/mcL 02/07/2024 7:24 AM EDT [facility] Eos % 2.3 % 02/07/2024 7:24 AM EDT [facility] Eos Absolute 0.13 0.00 - 0.40 x10(3)/mcL 02/07/2024 7:24 AM EDT [facility] Basophil % 0.4 % 02/07/2024 7:24 AM EDT [facility] Baso Absolute <0.04 0.00 - 0.10 x10(3)/mcL 02/07/2024 7:24 AM EDT [facility] Immature Gran % 0.4 % 7:24 AM EDT [facility] Immature Gran Absolute <0.04 0.00 - 0.04 x10(3)/mcL 02/07/2024 7:24 AM EDT [facility] Blood VENOUS BLOOD SPECIMEN / Unknown Mediport Line / Unknown 02/07/2024 7:05 AM EDT 02/07/2024 7:14 AM EDT Kavitha Rai MD HEMATOLOGY ORDERABLE S Performing Organization Address City/[facility] Co de Phone Number [facility] [place] [address] * (ABNORMAL) CEA (02/07/2024 7:05 AM EDT) Carcinoembryonic Antigen 5.5(H) <=3.8 ng/ml 02/07/2024 7:59 AM EDT [facility] Comment: Some smokers may have elevated CEA, generally < 5.5 ng/mL. This result was generated using a Deepak Dequan immunoassay. ??Results obtained from other methods or manufacturers cannot be used interchangeably with this method. Blood VENOUS BLOOD SPECIMEN / Unknown Mediport Line / Unknown 02/07/2024 7:05 AM EDT 02/07/2024 7:14 AM EDT Kavitha Rai MD CHEMISTRY ORDERABLES Performing Organization Address City/[facility] Co de Phone Number [facility] [place] [address] documented in this encounter Visit Diagnoses Diagnosis [...] Recorded weight), Intravenous, ONCE, 1 dose, On Tue02/07/24 at 1100, Administer over 30 Minutes, Monitor patient for ado-TRASTuzumab emtansine infusion reactions 30 minutes after each subsequent dose if the first dose was well-tolerated., This agent is restricted to outpatient use. Is this drug being given as an outpatient? Yes New Bag 02/07/2024 10:48 AM EDT 320 mg 532 mL/hr ondansetron (Zofran) tablet 8 mg 8 mg, Oral, ONCE, 1 dose, On Tue02/07/24 at 1000, Administer prior to chemotherapy, Routine Given 02/07/2024 10:51 AM EDT 8 mg sodium chloride 0.9% infusion 500 mL, Intravenous, ONCE, 1 dose, On Tue02/07/24 at 1000 New Bag 02/07/2024 10:01 AM EDT 500 mLs documented in this encounter Care Teams Steam Room Attendant Relationship Specialty Start Date End Date Ryan Betancourt MD [address] [place] [phone] PCP - General Family Medicine 07/29/22 documented as of this encounter
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
--- OUTSIDE RECORDS SUMMARY | 2024-06-01 20:37 | XMS_ITS | Encounter Summary ---
Author Organization [facility] [place] [address] Care Team Providers Care Hotel And Dining Room Cashier Name Role Phone Ryan Betancourt MD Primary Care Provider [phone] Reason for Visit * Treatment/Therapy Plan Authorization (Routine) - Authorized Specialty Diagnoses / Procedures Referred By Contac t Referred To Contact Hematology and Oncology Diagnoses Malignant neoplasm of overlapping sites of right breast in female, estrogen receptor negative Consuelo Joyce APRN [facility] [address] [address] Referral ID Status Reason Start Date Expiration Date V isits Requested Visits Authorized [id number] Authorized 11/03/2023 2024 99 108 Encounter Details Date Type Department Care Team (Latest Contact Info) Description 01/17/2024 7:00 AM EDT - 01/17/2024 7:02 AM EDT Hospital Encounter [place]ematology [place] [address] Malignant neoplasm of overlapping sites [...] Progress Notes * Fabi Gilbert RN - 01/17/2024 7:27 AM EDT Patient Name: Soy San Patient Age: 43 y.o. Birthdate: 1980 Admit date: 01/17/2024 Attending Physician: No att. providers found Access visit. See MAR and/or flowsheet. documented in this encounter Plan of Treatment Upcoming Encounters Date Type Department Care Team (Late st Contact Info) Description 06/14/2024 8:00 AM EST Hospital Encounter [place] [address] Consuelo Joyce APRN [facility] [place] [address] 06/14/2024 8:45 AM EST Appointment XRay at [address] [place] [address] Kavitha Rai MD [facility] [place] [address] 06/14/2024 9:45 AM EST Appointment Hematology [place] [address] 06/14/2024 11:00 AM EST Appointment [place] [address] [facility] [place] [address] 06/14/2024 1:00 PM EST Office Visit Hematology [place] [address] Kavitha Rai MD [facility] [address] [place] [address] 06/14/2024 2:30 PM EST Appointment Hematology [place] [address] 07/05/2024 10:30 AM EDT Appointment Hematology [place] [address] 07/05/2024 11:30 AM EDT Office Visit [place]ematology [place] [address] Consuelo Joyce APRN [facility] [place] [address] 07/05/2024 1:00 PM EDT Appointment Hematology and Oncology at [place] [address] 08/16/2024 9:20 AM EDT Office Visit Ophthalmology at [place] [address] Luz Jose, [facility] [place] [address] 01/14/2025 8:30 AM EDT Office Visit Psychiatry [place] [address] Anna Oneill, PhD [facility] [place] [address] Scheduled Orders Name Type Priority Associated Diagnoses Orde r Schedule CEA Lab Routine Malignant neoplasm of overlapping sites of right breast in female, estrogen receptor negative Every 3 weeks for 15 Occurrences starting 01/13/2024 until 01/12/2025, 1 completed documented as of this encounter Procedures Procedure Name Priority Date/Time Associated Diagnosis Comments CANCER ANTIGEN 15-3 STAT 01/17/2024 7 :20 AM EDT Malignant neoplasm of overlapping sites of right breast in female, estrogen receptor negative CBC (WITH DIFF) STAT 01/17/2024 7:20 AM EDT Malignant neoplasm of overlapping sites of right breast in female, estrogen receptor negative CEA Routine 01/17/2024 7:20 AM EDT Malignant neoplasm of overlapping sites of right breast in female, estrogen receptor negative COMPREHENSIVE METABOLIC PANEL STAT 01/17/2024 7:20 AM EDT Malignant neoplasm of overlapping sites of right breast in female, estrogen receptor negative documented in this encounter Results * (ABNORMAL) Cancer antigen 15-3 (01/17/2024 7:20 AM EDT) CA 15-3 34(H) <=25 unit/mL [facility]/17[facility]2024 [facility] Comment:This result was gene rated using a Deepak Dequan immunoassay. Results obtained from other methods or manufacturers cannot be used interchangeably with this method. Blood VENOUS BLOOD SPECIMEN / Unknown Mediport Line / Unknown 01/17/2024 7:20 AM EDT 01/17/2024 7:26 AM EDT Kavitha Rai MD CHEMISTRY ORDERABLES [facility] [place] [address] * (ABNORMAL) Comprehensive metabolic panel (01/17/2024 7:20 AM EDT) Pathologist [facility] Glucose 119 65 - 199 mg/dL 01/17/2024 8:08 AM [facility] Comment:Glucose Concentratio n >=200 mg/dL plus symptoms is consistent with Diabetes Mellitus. Blood Urea Nitrogen 10 8 - 18 mg/dL 01/17/2024 8:08 AM [facility] Creatinine 0.76 0.70 - 1.20 mg/dL 01/17/2024 8:08 AM [facility] Sodium 139 135 - 145 mMol/L 01/17/2024 8:08 AM [facility] Potassium 3.5 3.5 - 5.0 mMol/L 01/17/2024 8:08 AM [facility] Chloride 105 98 - 107 mMol/L 01/17/2024 8:08 AM [facility] Carbon Dioxide 26 22 - 31 mMol/L 01/17/2024 8:08 AM [facility] Anion Gap 8 5 - 15 mMol/L 01/17/2024 8:08 AM [facility] Calcium 8.5 8.5 - 10.5 mg/dL 01/17/2024 8:08 AM [facility] Protein, Total 6.9 6.1 - 8.0 g/dL 01/17/2024 8:08 AM [facility] Albumin 3.9 3.2 - 5.2 g/dL 01/17/2024 8:08 AM [facility] Aspartate Aminotransferase 31(H) <=30 unit/L 01/17/2024 8:08 AM [facility] Alanine Aminotransferase 37(H) 0 - 30 unit/L 01/17/2024 8:08 AM [facility] Alkaline Phosphatase 74 35 - 105 unit/L 01/17/2024 8:08 AM [facility] Bilirubin, Total 0.3 <=1.3 mg/dL 01/17/2024 8:08 AM [facility] Est Glomerular Filtration Rate - Female 99 mL/min/1. 73 m?? 01/17/2024 8:08 AM [facility] Comment: [...] Calculator [employer] Fasting Status No 01/17/2024 8:08 AM EDT [facility] Blood VENOUS BLOOD SPECIMEN / Unknown Mediport Line / Unknown 01/17/2024 7:20 AM EDT 01/17/2024 7:26 AM EDT Kavitha Rai MD CHEMISTRY ORDERABLES [facility] [place] [address] * CBC (with Diff) (01/17/2024 7:20 AM EDT) [facility] White Blood Cell 6.10 4.00 - 9.50 x10(3)/mcL 01/17/2024 7:31 AM [facility] Red Blood Cell 4.71 4.00 - 5.21 x10(6)/mcL 01/17/2024 7:31 AM [facility] Hemoglobin 13.1 11.7 - 15.5 g/dL 01/17/2024 7:31 AM [facility] Hematocrit 39.3 35.7 - 45.8 % 01/17/2024 7:31 AM [facility] Mean Cell Volume 83.4 82.6 - 94.4 fL 01/17/2024 7:31 AM [facility] Mean Cell Hemoglobin 27.8 27.1 - 32.0 pg 01/17/2024 7:31 AM [facility] Mean Cell Hemoglobin Concentration 33.3 31.7 - 35.0 g/dL 01/17/2024 7:31 AM [facility] Platelet 243 145 - 357 x10(3)/mcL 01/17/2024 7:31 AM [facility] Mean Platelet Volume 10.0 7.6 - 12.9 fL 01/17/2024 7:31 AM [facility] RDW Standard Deviation 40.8 37.0 - 46.0 fL 01/17/2024 7:31 AM [facility] RDW coefficient of variation 13.3 11.5 - 14.1 % 01/17/2024 7:31 AM [facility] NRBC% auto 0.0 % 01/17/2024 7:31 AM [facility] NRBC Absolute <0.01 <0.01 x10(3)/mcL 01/17/2024 7:31 AM [facility] Neutrophil % 58.1 % 01/17/2024 7:31 AM [facility] Neutrophil Absolute (ANC) - Automated 3.55 1.70 - 6.10 x10(3)/mcL 01/17/2024 7:31 AM EDT [facility] Lymph % 33.0 % 01/17/2024 7:31 AM EDT [facility] Lymph Absolute 2.01 0.90 - 3.20 x10(3)/mcL 01/17/2024 7:31 AM EDT [facility] Monocyte % 5.6 % 01/17/2024 7:31 AM EDT [facility] Monocyte Absolute 0.34 0.30 - 0.90 x10(3)/mcL 01/17/2024 7:31 AM EDT [facility] Eos % 2.8 % 01/17/2024 7:31 AM EDT [facility] Eos Absolute 0.17 0.00 - 0.40 x10(3)/mcL 01/17/2024 7:31 AM EDT [facility] Basophil % 0.3 % 01/17/2024 7:31 AM EDT [facility] Baso Absolute <0.04 0.00 - 0.10 x10(3)/mcL 01/17/2024 7:31 AM EDT [facility] Immature Gran % 0.2 % 7:31 AM EDT [facility] Immature Gran Absolute <0.04 0.00 - 0.04 x10(3)/mcL 01/17/2024 7:31 AM EDT [facility] Blood VENOUS BLOOD SPECIMEN / Unknown Mediport Line / Unknown 01/17/2024 7:20 AM EDT 01/17/2024 7:26 AM EDT Kavitha Rai MD HEMATOLOGY ORDERABLE S [facility] [place] [address] * (ABNORMAL) CEA (01/17/2024 7:20 AM EDT) Carcinoembryonic Antigen 5.1(H) <=3.8 ng/ml 01/17/2024 8:19 AM EDT [facility] Comment: Some smokers may have elevated CEA, generally < 5.5 ng/mL. This result was generated using a Deepak Dequan immunoassay. ??Results obtained from other methods or manufacturers cannot be used interchangeably with this method. Blood VENOUS BLOOD SPECIMEN / Unknown Mediport Line / Unknown 01/17/2024 7:20 AM EDT 01/17/2024 7:26 AM EDT Kavitha Rai MD CHEMISTRY ORDERABLES [facility] [place] [address] documented in this encounter Visit Diagnoses Diagnosis [...] Intravenous, EVERY 1 MIN PRN, Starting on Tue01/17/24 at 0709, Until Tue01/18/24 at 0436, Line Care, Flush pertains to all indwelling lines. Flush per protocol found in the job aid using the link provided on this medication record. Refer to Intravenous (IV) Job Aid: Adult Flushing & Catheter Care (7629) job aid for additional information regarding guidelines and administration., Routine Given 01/17/2024 7:19 AM EDT 20 mLs documented in this encounter Care Teams Hotel And Dining Room Cashier Relationship Specialty Start Date End Date Ryan Betancourt MD [address] [place] [phone] PCP - General Family Medicine 07/29/22 documented as of this encounter
--- OUTSIDE RECORDS SUMMARY | 2024-06-01 20:37 | XMS_ITS | Encounter Summary ---
Author Organization [facility] [place] [address] Care Team Providers Care Oyster Washer Name Role Phone Ryan Betancourt MD Primary Care Provider [phone] Reason for Visit * Treatment/Therapy Plan Authorization (Routine) - Authorized Specialty Diagnoses / Procedures Referred By Contac t Referred To Contact Hematology and Oncology Diagnoses Malignant neoplasm of overlapping sites of right breast in female, estrogen receptor negative Consuelo Joyce APRN [facility] [place] [address] [address] Referral ID Status Reason Start Date Expiration Date V isits Requested Visits Authorized [id number] Authorized 11/03/2023 2024 99 108 Encounter Details Date Type Department Care Team (Latest Contact Info) Description 01/17/2024 7:03 AM EDT - 01/17/2024 11:59 PM EDT Hospital Encounter Hematology [place] [address] Malignant neoplasm of overlapping sites [...] place to sleep or slept in a long-term (including now)? No 07/29/2022 Sex and Gender Information Value Date Recorded Sex Assigned at Not on file Gender Identity Not on file Sexual Orientation Not on file documented as of this encounter Last Filed Vital Signs Vital Sign Reading Time Taken Comments Blood Pressure 141/71 01/17/2024 8:04 AM EDT Pulse 66 01/17/2024 8:04 AM EDT Temperature 35.9 ??C (96.6 ??F) 01/17/2024 8:04 AM ED T Respiratory Rate 18 01/17/2024 8:04 AM EDT Oxygen Saturation 99% 01/17/2024 8:04 AM EDT Inhaled Oxygen Concentration - - Weight 114.8 kg (253 lb) 01/17/2024 8:04 AM EDT Height 164.5 cm (5' 4.76) 01/17/2024 8:04 AM ED T Body Mass Index 42.41 01/17/2024 8:04 AM EDT documented in this encounter Medications at Time of Discharge [...] 12/15/2023 omeprazole (PriLOSEC) [address] capsuleIndications:Mal martinant neoplasm of overlapping sites of right breast [...] as of this encounter Progress Notes * Kierra Gaston, RN - 01/17/2024 8:11 AM EDT Patient Name: Soy San Patient Age: 43 y.o. Birthdate: 1980 Admit date: 01/17/2024 Attending Physician: No att. providers found TIME TREATMENT STARTED: 804 TIME TREATMENT ENDED: 100 Soy San, 43 y.o. female with diagnosis of breast cancer is here for chemotherapy infusion of Kadcyla. CYCLE: 3 DAY: 1 S: Pt. offers no complaints at this time. O: Chemotherapy orders independently verified for correct drug name, route and dosage per patient'sheight, weight and BSA by Kierra Gaston, RN and onsite pharmacist REACTIONS (DESCRIPTION, TIME, INTERVENTION AND EFFECTIVENESS) NA A: Pt. Tolerated treatment well. Soy San confirms that all questions and issues have been addressed. P: Return to clinic as advised. documented in this encounter Plan of Treatment Upcoming Encounters Date Type Department Care Team (Late st Contact Info) Description 06/14/2024 8:00 AM EST Hospital Encounter [place] [address] Consuelo Joyce APRN [facility] [place] [address] 06/14/2024 8:45 AM EST Appointment XRay at [address] [place] [phone] Kavitha Rai MD [facility] DR HEMATOLOGY [place] [address] 06/14/2024 9:45 AM EST Appointment Hematology [place] [phone] 06/14/2024 11:00 AM EST Appointment Nuclear Medicine at [place] [address] Consuelo Joyce APRN [facility] [place] [address] 06/14/2024 1:00 PM EST Office Visit Hematology and Oncology at [address] Kavitha Rai MD [facility] DR HEMATOLOG[place] [address] 06/14/2024 2:30 PM EST Appointment Hematology [place] [address] 07/05/2024 10:30 AM EDT Appointment Hematology and Oncology at [place] [address] 07/05/2024 11:30 AM EDT Office Visit Hematology and Oncology at [place] [address] Consuelo Joyce MECH[employer]ICAL [employer]ORER [facility] [place] [address] 07/05/2024 1:00 PM EDT Appointment Hematology and Oncology at [place] [phone] 08/16/2024 9:20 AM EDT Office Visit Ophthalmology at [place] [address] Luz Jose, [facility] [address] 01/14/2025 8:30 AM EDT Office Visit Psychiatry and Behavioral Health at [place] [address] Anna Oneill, PhD [facility] [address] [place] [id number] documented as of this encounter Visit Diagnoses [...] Recorded weight), Intravenous, ONCE, 1 dose, On Tue01/17/24 at 0945, Administer over 30 Minutes, Monitor patient for ado-TRASTuzumab emtansine infusion reactions 30 minutes after each subsequent dose if the first dose was well-tolerated., This agent is restricted to outpatient use. Is this drug being given as an outpatient? Yes New Bag 01/17/2024 9:26 AM EDT 320 mg 532 mL/hr ondansetron (Zofran) tablet 8 mg 8 mg, Oral, ONCE, 1 dose, On Tue01/17/24 at 0845, Administer prior to chemotherapy, Routine Given 01/17/2024 8:40 AM EDT 8 mg sodium chloride 0.9 % (flush) (BD PosiFlush Normal Saline 0.9) flush 5-20 mL 5-20 mL, Intravenous, EVERY 1 MIN PRN, Starting on Tue01/17/24 at 0822, Until Tue01/18/24 at 0436, Line Care, Flush pertains to all indwelling lines. Flush per protocol found in the job aid using the link provided on this medication record. Refer to Intravenous (IV) Job Aid: Adult Flushing & Catheter Care (9639) job aid for additional information regarding guidelines and administration., Routine Given 01/17/2024 9:22 AM EDT 20 mLs sodium chloride 0.9% infusion 500 mL, Intravenous, ONCE, 1 dose, On Tue01/17/24 at 0845 New Bag 01/17/2024 8:30 AM EDT 500 mLs documented in this encounter Care Teams Oyster Washer Relationship Specialty Start Date End Date Ryan Betnacourt MD [address] [place] [phone] PCP - General Family Medicine 07/29/22 documented as of this encounter
--- OUTSIDE RECORDS SUMMARY | 2024-06-01 20:37 | XMS_ITS | Encounter Summary ---
Author Organization [facility] [place] [address] Care Team Providers Care Parts Analyst Name Role Phone Ryan Betancourt MD Primary Care Provider [phone] Reason for Visit * Treatment/Therapy Plan Authorization (Routine) - Authorized Specialty Diagnoses / Procedures Referred By Contac t Referred To Contact Hematology and Oncology Diagnoses Malignant neoplasm of overlapping sites of right breast in female, estrogen receptor negative Consuelo Joyce APRN [facility] [place] [address] [address] Referral ID Status Reason Start Date Expiration Date V isits Requested Visits Authorized [id number] Authorized 11/03/2023 2024 99 108 Encounter Details Date Type Department Care Team (Latest Contact Info) Description 02/07/2024 6:50 AM EDT - 02/07/2024 11:59 PM EDT Hospital Encounter Hematology [place] [address] Malignant neoplasm of overlapping sites [...] Progress Notes * Fabi Gilbert RN - 02/07/2024 7:06 AM EDT Patient Name: Soy San Patient Age: 43 y.o. Birthdate: 1980 Admit date: 02/07/2024 Attending Physician: No att. providers found Access visit. See MAR and/or flowsheet. documented in this encounter Plan of Treatment Upcoming Encounters Date Type Department Care Team (Late st Contact Info) Description 06/14/2024 8:00 AM EST Hospital Encounter [place] [address] Consuelo Joyce APRN [facility] [place] [address] 06/14/2024 8:45 AM EST Appointment XRay at [address] [place] [address] Kavitha Rai MD [facility] [place] [address] 06/14/2024 9:45 AM EST Appointment Hematology [place] [address] 06/14/2024 11:00 AM EST Appointment [place] [address] [facility] [place] [address] 06/14/2024 1:00 PM EST Office Visit Hematology [place] [address] Kavitha Rai MD [facility] [place] [address] 06/14/2024 2:30 PM EST Appointment Hematology [place] [address] 07/05/2024 10:30 AM EDT Appointment Hematology [place] [address] 07/05/2024 11:30 AM EDT Office Visit Hematology [place] [address] Consuelo Joyce APRN [facility] [place] [address] 07/05/2024 1:00 PM EDT Appointment Hematology and Oncology at [place] [address] 08/16/2024 9:20 AM EDT Office Visit Ophthalmology at [place] [phone] Luz Jose, CARSON [facility] [place] [address] 01/14/2025 8:30 AM EDT Office Visit Psychiatry and Behavioral Health at [place] [phone] Anna Oneill, PhD [facility] [place] [address] documented as of this encounter Procedures Procedure Name Priority Date/Time Associated Diagnosis Comments CANCER ANTIGEN 15-3 STAT 02/07/2024 7 :05 AM EDT Malignant neoplasm of overlapping sites of right breast in female, estrogen receptor negative CBC (WITH DIFF) STAT 02/07/2024 7:05 AM EDT Malignant neoplasm of overlapping sites of right breast in female, estrogen receptor negative CEA Routine 02/07/2024 7:05 AM EDT Malignant neoplasm of overlapping sites of right breast in female, estrogen receptor negative COMPREHENSIVE METABOLIC PANEL STAT 02/07/2024 7:05 AM EDT Malignant neoplasm of overlapping sites of right breast in female, estrogen receptor negative documented in this encounter Results * (ABNORMAL) Cancer antigen 15-3 (02/07/2024 7:05 AM EDT) CA 15-3 34(H) <=25 unit/mL 02/07/2024 7:59 AM EDT [facility] Comment:This result was gene rated using a Deepak Dequan immunoassay. Results obtained from other methods or manufacturers cannot be used interchangeably with this method. Blood VENOUS BLOOD SPECIMEN / Unknown Mediport Line / Unknown 02/07/2024 7:05 AM EDT 02/07/2024 7:14 AM EDT Kavitha Rai MD CHEMISTRY ORDERABLES [facility] [place] [address] * (ABNORMAL) Comprehensive metabolic panel (02/07/2024 7:05 AM EDT) Glucose 146 65 - 199 mg/dL 02/07/2024 7:50 AM EDT [facility] Comment:Glucose Concentratio n >=200 mg/dL plus symptoms is consistent with Diabetes Mellitus. Blood Urea Nitrogen 13 8 - 18 mg/dL 02/07/2024 7:50 AM [facility] Creatinine 0.82 0.70 - 1.20 mg/dL 02/07/2024 7:50 AM [facility] Sodium 138 135 - 145 mMol/L 02/07/2024 7:50 AM [facility] Potassium 3.4(L) 3.5 - 5.0 mMol/L 02/07/2024 7:50 AM [facility] Chloride 104 98 - 107 mMol/L 02/07/2024 7:50 AM [facility] Carbon Dioxide 25 22 - 31 mMol/L [facility]/07[facility] Anion Gap 9 5 - 15 mMol/L 02/07/2024 7:50 AM [facility] Calcium 9.1 8.5 - 10.5 mg/dL 02/07/2024 7[facility] Protein, Total 6.9 6.1 - 8.0 g/dL 02/07/2024 7:50 AM [facility] Albumin 3.6 3.2 - 5.2 g/dL 02/07/2024 7:50 AM EDT [facility] Aspartate Aminotransferase 26 <=30 unit/L 02/07/2024 7:50 AM EDT [facility] Alanine Aminotransferase 32(H) 0 - 30 unit/L 02/07/2024 7:50 AM EDT [facility] Alkaline Phosphatase 77 35 - 105 unit/L 02/07/2024 7:50 AM EDT [facility] Bilirubin, Total 0.3 <=1.3 mg/dL 02/07/2024 7:50 AM EDT [facility] Est Glomerular Filtration Rate - Female 90 mL/min/1. 73 m?? 02/07/2024 7:50 AM EDT [facility] Comment: This patient's estimated [...] Fasting Status No 02/07/2024 7:50 AM EDT [facility] Blood VENOUS BLOOD SPECIMEN / Unknown Mediport Line / Unknown 02/07/2024 7:05 AM EDT 02/07/2024 7:14 AM EDT Kavitha Rai MD CHEMISTRY ORDERABLES [facility] [place] [address] * CBC (with Diff) (02/07/2024 7:05 AM EDT) White Blood Cell 5.59 4.00 - 9.50 x10(3)/mcL 02/07/2024 7:24 AM EDT [facility] Red Blood Cell 4.80 4.00 - 5.21 x10(6)/mcL 02/07/2024 7:24 AM [facility] Hemoglobin 13.1 11.7 - 15.5 g/dL 02/07/2024 7:24 AM [facility] Hematocrit 40.0 35.7 - 45.8 % 02/07/2024 7:24 AM [facility] Mean Cell Volume 83.3 82.6 - 94.4 fL 02/07/2024 7:24 AM [facility] Mean Cell Hemoglobin 27.3 27.1 - 32.0 pg 02/07/2024 7:24 AM [facility] Mean Cell Hemoglobin Concentration 32.8 31.7 - 35.0 g/dL 02/07/2024 7:24 AM [facility] Platelet 247 145 - 357 x10(3)/mcL 02/07/2024 7:24 AM [facility] Mean Platelet Volume 10.5 7.6 - 12.9 fL 02/07/2024 7:24 AM [facility] RDW Standard Deviation 42.1 37.0 - 46.0 fL 02/07/2024 7:24 AM [facility] RDW coefficient of variation 13.8 11.5 - 14.1 % 02/07/2024 7:24 AM [facility] NRBC% auto 0.0 % 02/07/2024 7:24 AM [facility] NRBC Absolute <0.01 <0.01 x10(3)/mcL 02/07/2024 7:24 AM [facility] Neutrophil % 59.7 % 02/07/2024 7:24 AM [facility] Neutrophil Absolute (ANC) - Automated 3.34 1.70 - 6.10 x10(3)/mcL 02/07/2024 7:24 AM [facility] Lymph % 31.3 % 02/07/2024 7:24 AM EDT [facility] Lymph Absolute 1.75 0.90 - 3.20 x10(3)/mcL 02/07/2024 7:24 AM EDT [facility] Monocyte % 5.9 % 02/07/2024 7:24 AM EDT [facility] Monocyte Absolute 0.33 0.30 - 0.90 x10(3)/mcL 02/07/2024 7:24 AM EDT [facility] Eos % 2.3 % 02/07/2024 7:24 AM EDT [facility] Eos Absolute 0.13 0.00 - 0.40 x10(3)/mcL 02/07/2024 7:24 AM EDT [facility] Basophil % 0.4 % 02/07/2024 7:24 AM EDT [facility] Baso Absolute <0.04 0.00 - 0.10 x10(3)/mcL 02/07/2024 7:24 AM EDT [facility] Immature Gran % 0.4 % 7:24 AM EDT [facility] Immature Gran Absolute <0.04 0.00 - 0.04 x10(3)/mcL 02/07/2024 7:24 AM EDT [facility] Blood VENOUS BLOOD SPECIMEN / Unknown Mediport Line / Unknown 02/07/2024 7:05 AM EDT 02/07/2024 7:14 AM EDT Kavitha Rai MD HEMATOLOGY ORDERABLE S [facility] [place] [address] * (ABNORMAL) CEA (02/07/2024 7:05 AM EDT) Carcinoembryonic Antigen 5.5(H) <=3.8 ng/ml 02/07/2024 7:59 AM EDT [facility] Comment: Some smokers may have elevated CEA, generally < 5.5 ng/mL. This result was generated using a Deepak Dequan immunoassay. ??Results obtained from other methods or manufacturers cannot be used interchangeably with this method. Blood VENOUS BLOOD SPECIMEN / Unknown Mediport Line / Unknown 02/07/2024 7:05 AM EDT 02/07/2024 7:14 AM EDT Kavitha Rai MD CHEMISTRY ORDERABLES [facility] [place] [address] documented in this encounter Visit Diagnoses Diagnosis [...] Intravenous, EVERY 1 MIN PRN, Starting on Tue02/07/24 at 0654, Until Tue02/08/24 at 0435, Line Care, Flush pertains to all indwelling lines. Flush per protocol found in the job aid using the link provided on this medication record. Refer to Intravenous (IV) Job Aid: Adult Flushing & Catheter Care (5221) job aid for additional information regarding guidelines and administration., Routine Given 02/07/2024 7:06 AM EDT 20 mLs documented in this encounter Care Teams Parts Analyst Relationship Specialty Start Date End Date Ryan Betancourt MD [address] [place] [phone] PCP - General Family Medicine 07/29/22 documented as of this encounter
--- OUTSIDE RECORDS SUMMARY | 2024-06-01 20:37 | XMS_ITS | Encounter Summary ---
[place] [address] Care Team Providers Care Scrap Preparer Name Role Phone Ryan Betancourt MD Primary Care Provider [phone] Reason for Visit * Treatment/Therapy Plan Authorization (Routine) - Authorized Specialty Diagnoses / Procedures Referred By Contdede t Referred To Contact Hematology and Oncology Diagnoses Malignant neoplasm of overlapping sites of right breast in female, estrogen receptor negative Consuelo Joyce APRN [facility] [place] [address] [facility] [address] [place] [address] Referral ID Status Reason Start Date Expiration Date V isits Requested Visits Authorized [id number] Authorized 11/03/2023 2024 99 108 Encounter Details Date Type Department Care Team (Latest Contact Info) Description 03/20/2024 9:40 AM EST Hospital Encounter Hematology [place] [address] Malignant neoplasm of overlapping sites [...] Progress Notes * Serenity Cespedes RN - 03/20/2024 1:48 PM EST Patient Name: Soy San Patient Age: 43 y.o. Birthdate: 1980 Admit date: 03/20/2024 Attending Physician: No att. providers found TIME TREATMENT STARTED: 1255 TIME TREATMENT ENDED: 1436 Soy San, 43 y.o. female with diagnosis of 1. Malignant neoplasm of overlapping sites of right breast in female, estrogen receptor negative is here for chemotherapy infusion of Kadcyla and Xgeva injection. PROTOCOL: NA CYCLE: 6 DAY: 1 S: Pt. offers no complaints [...] AM EST Hospital Encounter [place] [phone] Consuelo Joyce APR[facility]LY [facility] [place] [address] 06/14/2024 8:45 AM EST Appointment XRay at [address] [place] [phone] Kavitha Rai MD [facility] HEMATOLOGY [place] [address] 06/14/2024 9:45 AM EST Appointment Hematology [place] [phone] 06/14/2024 11:00 AM EST Appointment Nuclear [place] [phone] Consuelo Joyce [facility] [place] [address] 06/14/2024 1:00 PM EST Office Visit Hematology [place] [address] Kavitha Rai MD [facility] [address] HEMATOLOGY [place] [address] 06/14/2024 2:30 PM EST Appointment Hematology and Oncology at [place] [phone] 07/05/2024 10:30 AM EDT Appointment Hematology and Oncology at [place] [address] 07/05/2024 11:30 AM EDT Office Visit Hematology and Oncology at [place] [address] Consuelo Joyce APRN [facility] [place] [address] 07/05/2024 1:00 PM EDT Appointment Hematology and Oncology at [place] [address] 08/16/2024 9:20 AM EDT Office Visit Ophthalmology at [place] [address] Luz Jose, OD [facility] [place] [address] 01/14/2025 8:30 AM EDT Office Visit Psychiatry and Behavioral Health at [place] [address] Anna Oneill, PhD [facility] [place] [address] Scheduled Orders Name Type Priority Associated Diagnoses Orde r Schedule CEA Lab Routine Malignant neoplasm of overlapping sites of right breast in female, estrogen receptor negative Every 3 weeks for 15 Occurrences starting 03/16/2024 until 03/16/2025, 1 completed documented as of this encounter Results * (ABNORMAL) Cancer antigen 15-3 (03/20/2024 9:52 AM EST) CA 15-3 33(H) <=25 unit/mL 03/20/2024 11:08 AM [facility] Comment:This result was gene rated using a Deepak Dequan immunoassay. Results obtained from other methods or manufacturers cannot be used interchangeably with this method. Blood VENOUS BLOOD SPECIMEN / Unknown Venipuncture / Unknown 03/20/2024 9:52 AM EST 03/20/2024 10:10 AM EST Consuelo Gerardo Joyce CAREER ORIENTATION TEACHER CHEMISTRY ORDERABLE S [facility] [place] [address] * Comprehensive metabolic panel (03/20/2024 9:52 AM EST) Glucose 104 65 - 199 mg/dL 03/20/2024 10:43 AM [facility] Comment:Glucose Concentratio n >=200 mg/dL plus symptoms is consistent with Diabetes Mellitus. Blood Urea Nitrogen 12 8 - 18 mg/dL 03/20/2024 10:43 AM [facility] Creatinine 0.80 0.70 - 1.20 mg/dL 03/20/2024 10:43 AM [facility] Sodium 139 135 - 145 mMol/L 03/20/2024 10:43 AM [facility] Potassium 3.6 3.5 - 5.0 mMol/L 03/20/2024 10:43 AM [facility] Chloride 103 98 - 107 mMol/L 03/20/2024 10:43 AM [facility] Carbon Dioxide 26 22 - 31 mMol/L 03/20/2024 10:43 AM [facility] Anion Gap 10 5 - 15 mMol/L 03/20/2024 10:43 AM [facility] Calcium 9.1 8.5 - 10.5 mg/dL 03/20/2024 10:43 AM [facility] Protein, Total 7.7 6.1 - 8.0 g/dL 03/20/2024 10:43 AM [facility] Albumin 4.0 3.2 - 5.2 g/dL 03/20/2024 10:43 AM [facility] Aspartate Aminotransferase 30 <=30 unit/L 03/20/2024 10:43 AM [facility] Alanine Aminotransferase 30 0 - 30 unit/L 03/20/2024 10:43 AM [facility] Alkaline Phosphatase 79 35 - 105 unit/L 03/20/2024 10:43 AM [facility] Bilirubin, Total 0.4 <=1.3 mg/dL 03/20/2024 10:43 AM [facility] Est Glomerular Filtration Rate - Female 93 mL/min/1. 73 m?? 03/20/2024 10:43 AM [facility] Comment: This patient's estimated [...] Calculator [employer] Fasting Status No 03/20/2024 10:43 AM [facility] Blood VENOUS BLOOD SPECIMEN / Unknown Venipuncture / Unknown 03/20/2024 9:52 AM EST 03/20/2024 10:10 AM EST Consuelo Joyce CAREER ORIENTATION TEACHER CHEMISTRY ORDERABLE S [facility] [place] [address] * (ABNORMAL) CBC (with Diff) (03/20/2024 9:52 AM EST) White Blood Cell 7.66 4.00 - 9.50 x10(3)/mc L 03/20/2024 10:17 AM [facility] Red Blood Cell 4.98 4.00 - 5.21 x10(6)/mc L 03/20/2024 10:17 AM [facility] Hemoglobin 13.2 11.7 - 15.5 g/dL 03/20/2024 10:17 AM [facility] Hematocrit 40.4 35.7 - 45.8 % 03/20/2024 10:17 AM [facility] Mean Cell Volume 81.1(L) 82.6 - 94.4 fL 03/20/2024 10:17 AM [facility] Mean Cell Hemoglobin 26.5(L) 27.1 - 32.0 pg 03/20/2024 10:17 AM [facility] Mean Cell Hemoglobin Concentration 32.7 31.7 - 35.0 g/dL 03/20/2024 10:17 AM [facility] Platelet 262 145 - 357 x10(3)/mc L 03/20/2024 10:17 AM [facility] Mean Platelet Volume 10.2 7.6 - 12.9 fL 03/20/2024 10:17 AM [facility] RDW Standard Deviation 42.7 37.0 - 46.0 fL 03/20/2024 10:17 AM [facility] RDW coefficient of variation 14.6(H) 11.5 - 14.1 % 03/20/2024 10:17 AM [facility] NRBC% auto 0.0 % 03/20/2024 10:17 AM [facility] NRBC Absolute <0.01 <0.01 x10(3)/mc L 03/20/2024 10:17 AM [facility] Neutrophil % 68.0 % 03/20/2024 10:17 AM [facility] Neutrophil Absolute (ANC) - Automated 5.21 1.70 - 6.10 x10(3)/mc L 03/20/2024 10:17 AM [facility] Lymph % 24.5 % 03/20/2024 10:17 AM [facility] Lymph Absolute 1.88 0.90 - 3.20 x10(3)/mc L 03/20/2024 10:17 AM [facility] Monocyte % 5.4 % 03/20/2024 10:17 AM [facility] Monocyte Absolute 0.41 0.30 - 0.90 x10(3)/mc L 03/20/2024 10:17 AM [facility] Eos % 1.4 % 03/20/2024 10:17 AM [facility] Eos Absolute 0.11 0.00 - 0.40 x10(3)/mc L 03/20/2024 10:17 AM [facility] Basophil % 0.3 % 03/20/2024 10:17 AM [facility] Baso Absolute <0.04 0.00 - 0.10 x10(3)/mc L 03/20/2024 10:17 AM [facility] Immature Gran % 0.4 % 10:17 AM [facility] Immature Gran Absolute <0.04 0.00 - 0.04 x10(3)/mc L 03/20/2024 10:17 AM [facility] Blood VENOUS BLOOD SPECIMEN / Unknown Venipuncture / Unknown 03/20/2024 9:52 AM EST 03/20/2024 10:10 AM EST Consuelo Joyce CAREER ORIENTATION TEACHER HEMATOLOGY ORDERABL ES [facility] [place] [address] * (ABNORMAL) CEA (03/20/2024 9:52 AM EST) Carcinoembryonic Antigen 6.2(H) <=3.8 ng/ml 03/20/2024 11:08 AM [facility] Comment: Some smokers may have elevated CEA, generally < 5.5 ng/mL. This result was generated using a Deepak Dequan immunoassay. ??Results obtained from other methods or manufacturers cannot be used interchangeably with this method. Blood VENOUS BLOOD SPECIMEN / Unknown Venipuncture / Unknown 03/20/2024 9:52 AM EST 03/20/2024 10:10 AM EST Consuelo Joyce CAREER ORIENTATION TEACHER CHEMISTRY ORDERABLE S [facility] [place] [address] documented in this encounter Visit Diagnoses Diagnosis [...] Recorded weight), Intravenous, ONCE, 1 dose, On Tue03/20/24 at 1400, Administer over 30 Minutes, Monitor patient for ado-TRASTuzumab emtansine infusion reactions 30 minutes after each subsequent dose if the first dose was well-tolerated., This agent is restricted to outpatient use. Is this drug being given as an outpatient? Yes New Bag 03/20/2024 1:58 PM EST 320 mg 532 mL/hr calcium carbonate (TUMS) chewable tablet 500 mg 500 mg, Oral, ONCE, 1 dose, On Tue03/20/24 at 1300, Routine Given 03/20/2024 1:23 PM EST 500 mg denosumab (Xgeva) (120 mg/1.7 mL) subcutaneous injection 120 mg 120 mg, Subcutaneous, ONCE, 1 dose, On Tue03/20/24 at 1300, - Bring to room temperature 15-30 minutes before administration. - Call provider for corrected calcium less than 8.5 mg/dL or CrCl less than 30 mL/min., This agent is restricted to outpatient use. Is this drug being given as an outpatient? Yes Given 03/20/2024 1:27 PM EST 120 mg Right Arm ondansetron (Zofran) tablet 8 mg 8 mg, Oral, ONCE, 1 dose, On Tue03/20/24 at 1300, Administer prior to chemotherapy, Routine Given 03/20/2024 1:23 PM EST 8 mg sodium chloride 0.9 % (flush) (BD PosiFlush Normal Saline 0.9) flush 5-20 mL 5-20 mL, Intravenous, EVERY 1 MIN PRN, Starting on Tue03/20/24 at 1239, Until Tue03/21/24 at 0435, Line Care, Flush pertains to all indwelling lines. Flush per protocol found in the job aid using the link provided on this medication record. Refer to Intravenous (IV) Job Aid: Adult Flushing & Catheter Care (9139) job aid for additional information regarding guidelines and administration., Routine Given 03/20/2024 2:34 PM EST 20 mLs sodium chloride 0.9% infusion 500 mL, Intravenous, ONCE, 1 dose, On Tue03/20/24 at 1300 New Bag 03/20/2024 1:29 PM EST 500 mLs documented in this encounter Care Teams Scrap Preparer Relationship Specialty Start Date End Date Ryan Betancourt MD [address] [place] [phone] PCP - General Family Medicine 07/29/22 documented as of this encounter
--- OUTSIDE RECORDS SUMMARY | 2024-06-01 20:37 | XMS_ITS | Encounter Summary ---
Author Organization [facility] Address [facility] [place] [address] Care Team Providers Care Section Leader Screen Printing Name Role Phone Ryan Betancourt MD Primary Care Provider [phone] Encounter Details Date Type Department Care Team (Latest Contact Info) Description 02/07/2024 Travel Social History Tobacco Use Types Packs/Day [...] AM EST Hospital Encounter [place] [address] Consuelo Joyce APRN [facility] [place] [address] 06/14/2024 8:45 AM EST Appointment XRay at [address] [place] [address] Kavitha Rai MD [facility] [place] [address] 06/14/2024 9:45 AM EST Appointment Hematology [place] [address] 06/14/2024 11:00 AM EST Appointment [place] [address] Consuelo Joyce APRN [facility] [place] [address] 06/14/2024 1:00 PM EST Office Visit Hematology [place] [address] Kavitha Rai MD [facility] [place] [address] 06/14/2024 2:30 PM EST Appointment Hematology [place] [address] 07/05/2024 10:30 AM EDT Appointment Hematology and Oncology at [place] [phone] 07/05/2024 11:30 AM EDT Office Visit Hematology and Oncology at [place] [phone] Consuelo Joyce APRN [facility] [place] [address] 07/05/2024 1:00 PM EDT Appointment Hematology and Oncology at [place] [address] 08/16/2024 9:20 AM EDT Office Visit Ophthalmology at [place] [phone] Luz Jose, OD [facility] [place] [address] 01/14/2025 8:30 AM EDT Office Visit Psychiatry and Behavioral Health at [place] [address] Anna Oneill, PhD [facility] [place] [address] documented as of this encounter Visit Diagnoses Not on filedocumented in this encounter Care Teams Section Leader Screen Printing Relationship Specialty Start Date End Date Ryan Betancourt MD [address] [place] [phone] PCP - General Family Medicine 07/29/22 documented as of this encounter
--- OUTSIDE RECORDS SUMMARY | 2024-06-01 20:37 | XMS_ITS | Encounter Summary ---
Author Organization [facility] Address 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 01/17/2024 Seen in infusion TDM1 C3 3 [...] Recent biopsy of skin c/w breast cancer ER/WI- HER+ same as her other site of [...] most 3 x per cycle Going to [place] for vacation. 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 PET CT 04/07/2023: [...] but she has h/o migraines. No mucositis. . Breast Cancer History as follows: October 31, 2021 noted some right breast discomfort but did not notice a mass. The next day noted a lump in the right breast in the shower. Subsequently called [facility] womans wellness, seen that day. 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 Reviewed in flowsheet, WNL Wt Readings from Last 3 Encounters: 12/30/23 114.2 kg (251 lb 12.3 oz) 12/15/23 112.2 kg (247 lb 5.7 oz) 11/24/23 112.3 kg (247 lb 9.2 oz) Physical exam Limited by infusion setting [...] breast: No discrete mass or axillary node. Large area of redness on upper part of breast has reduced redness (see picture) two other areas of redness 3 mm at 10oc and 4 oc now reduced redness (see picture) Abdominal: Soft. Bowel sounds are normal. There is no tenderness. Musculoskeletal: Normal range of motion. Extremities: no clubbing, cyanosis or edema Neurological: She is alert and oriented to person, place, and time. Gait normal. Skin: Skin is warm and dry. Taxotere nails Psychiatric: She has a normal mood and affect. Her behavior is normal. Results: Lab Results Component Value Date WBC 6.75 12/30/2023 HGB 13.1 12/30/2023 HCT 39.2 12/30/2023 MCV 83.8 12/30/2023 PLATELET 228 12/30/2023 Lab Results Component Value Date NEUTROABS 3.73 12/30/2023 Lab Results Component Value Date NA 140 12/30/2023 K 3.2 (L) 12/30/2023 CL 107 12/30/2023 CO2 24 12/30/2023 BUN 16 12/30/2023 CREATININE 0.74 12/30/2023 GLUCOSE 143 12/30/2023 CALCIUM 8.9 12/30/2023 ESTGFR 90 11/03/2023 Lab Results Component Value Date ALT 23 12/30/2023 AST 17 12/30/2023 ALKPHOS 82 12/30/2023 BILITOT 0.3 12/30/2023 ALBUMIN 4.0 12/30/2023 PROT 6.8 12/30/2023 Carcinoembryonic Antigen Date Value 12/30/2023 2.9 ng/ml 12/15/2023 3.9 ng/ml (H) 11/24/2023 2.8 ng/ml 11/03/2023 2.8 ng/mL 10/13/2023 2.4 ng/mL 09/22/2023 2.8 ng/mL 08/11/2023 2.3 ng/mL 07/21/2023 2.4 ng/mL CA 15-3 (unit/mL) Date Value 12/30/2023 32 (H) 12/15/2023 32 (H) 11/24/2023 32 (H) 11/03/2023 33 (H) 10/13/2023 28 [...] an excellent clinical response to therapy and is on H/Pmonotherapy. She started xgeva 02/24/2023 and the plan is for administration q 6 weeks to sync up with phesgo. New breast findings concerning for recurrent local disease however last imaging 06/2023 looks good with sustained response. Skin biopsy c/w local recurrence switch to TDM-1. Breast Cancer: TDM-1 C3D1 today - LFTs WNL today: will continue with dose reduce of TDM1 from 3.6 mg/kg to 3 mg/kg -CEA is elevated today will monitor with next cycle, CA 15-3 stable -Eyes running, discussed trying OTC eye drops, if no change in 1 week will refer to optho/see opthosee is already established with if she can get in quickly Saw Dr. Oneill cognitive clinic 01/11, f/u on 01/25 for results 3. Continue denosumab q6w, on hold tooth scheduled to be pulled 03/01 4. Primary breast surgical consultation: Not recommended at this time per most recent tumor board discussion. Dr. Rai reviewed with patient previously RTC in 3 weeks with labs, MD/PLUMBING DRAFTER, and infusion Total time spent: 40 minutes with > 50% spend in discussion of above Future Appointments Date Time Provider Department Center 01/17/2024 7:00 AM ACCESS ROOM [address] 01/17/2024 8:00 AM LEB INFUSION THERAPY [facility] INF [address] [place] [address] 01/17/2024 9:00 AM Consuelo Joyce APRN [facility] HEM ONC [facility] 01/26/2024 2:00 PM Anna Oneill, PhD [facility] PSY 5D Behavioral H 02/07/2024 8:45 AM ACCESS ROOM [address] 02/07/2024 10:00 AM Consuelo Joyce APRN [facility] HEM ONC [facility] 02/07/2024 12:30 PM LEB INFUSION THERAPY [facility] INF [address] [place] [address] 02/28/2024 9:00 AM ACCESS ROOM [facility] INF [address] [place] [address] 02/28/2024 10:00 AM Consuelo Joyce APRN [facility] HEM ONC [facility] 02/28/2024 11:30 AM LEB INFUSION THERAPY [facility] INF 3K [facility] documented in this encounter Plan of Treatment Upcoming Encounters Date Type Department Care Team (Late st Contact Info) Description 06/14/2024 8:00 AM EST Hospital Encounter [place] [address] Consuelo Joyce APRN [facility] [place] [address] 06/14/2024 8:45 AM EST Appointment XRay at [address] [place] [address] Kavitha Rai MD [facility] [place] [address] 06/14/2024 9:45 AM EST Appointment Hematology [place] [address] 06/14/2024 11:00 AM EST Appointment [place] [address] Consuelo Joyce APRN [facility] [place] [address] 06/14/2024 1:00 PM EST Office Visit Hematology [place] [address] Kavitha Rai MD [facility] [place] [address] 06/14/2024 2:30 PM EST Appointment Hematology [place] [address] 07/05/2024 10:30 AM EDT Appointment Hematology [place] [address] 07/05/2024 11:30 AM EDT Office Visit Hematology [place] [phone] Consuelo Joyce APRN [facility] [place] [address] 07/05/2024 1:00 PM EDT Appointment Hematology [place] [address] 08/16/2024 9:20 AM EDT Office [place] [phone] Luz Jose, CARSON [facility] [place] [address] 01/14/2025 8:30 AM EDT Office Visit Psychiatry [place] [address] Anna Oneill, PhD [facility] [place] [address] documented as of this encounter Visit Diagnoses Diagnosis 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
--- OUTSIDE RECORDS SUMMARY | 2024-06-01 20:37 | XMS_ITS | Encounter Summary ---
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 Malignant neoplasm of overlapping sites of right breast in female, estrogen receptor negative HER2-positive carcinoma of breast Procedures CT Chest Abdomen Pelvis w Contrast (Generic) Consuelo Joyce APRN [facility] [place] [address] [facility] [place] [address] Referral ID Status Reason Start Date Expiration Date V isits Requested Visits Authorized [id number] Closed Specialty Service Requested 02/16/2024 04/15/2024 1 1 Reason for Visit * Diagnostic Test (Routine) - Closed Specialty Diagnoses / Procedures Referred By Contdede t Referred To Contact Radiology Diagnoses 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 Malignant neoplasm of overlapping sites of right breast in female, estrogen receptor negative HER2-positive carcinoma of breast Procedures CT Chest Abdomen Pelvis w Contrast (Generic) Consuelo Joyce APRN [facility] [place] [address] [facility] [place] [address] Referral ID Status Reason Start Date Expiration Date V isits Requested Visits Authorized [id number] Closed Specialty Service Requested 02/16/2024 04/15/2024 1 1 Encounter Details Date Type Department Care Team (Latest Contact Info) Description 03/08/2024 9:34 AM EST - 03/08/2024 9:38 AM EST Hospital Encounter CT Scan at [facility] [place] [address] Consuelo Joyce APRN [facility] [place] [address] 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; [...] to sleep or slept in a senior care (including now)? No 07/29/2022 Sex and Gender [...] 12/15/2023 omeprazole (PriLOSEC) [address] capsuleIndications:Mal ignsierra neoplasm of overlapping sites of right breast [...] AM EST Hospital Encounter [place] [address] Consuelo Joyce APRN [facility] [place] [address] 06/14/2024 8:45 AM EST Appointment XRay at [address] [place] [address] Kavitha Rai MD [facility] [place] [address] 06/14/2024 9:45 AM EST Appointment Hematology [place] [address] 06/14/2024 11:00 AM EST Appointment [place] [address] Consuelo Joyce LPN PER DIEM [facility] [place] [address] 06/14/2024 1:00 PM EST Office Visit Hematology [place] [phone] Kavitha Rai MD [facility] [place] [address] 06/14/2024 2:30 PM EST Appointment Hematology [place] [address] 07/05/2024 10:30 AM EDT Appointment Hematology [place] [address] 07/05/2024 11:30 AM EDT Office Visit Hematology [place] [phone] Consuelo Joyce APRN [facility] [place] [address] 07/05/2024 1:00 PM EDT Appointment Hematology [place] [phone] 08/16/2024 9:20 AM EDT Office Visit Ophthalmology at [place] [phone] Luz Jose, OD [facility] [place] [address] 01/14/2025 8:30 AM EDT Office Visit Psychiatry and Behavioral Health at [place] [phone] Anna Oneill, PhD [facility] [place] [address] documented as of this encounter Procedures Procedure Name Priority Date/Time Associated Diagnosis Comments CT CHEST ABDOMEN PELVIS W CONTRAST (GENERIC) Routine 03/08/2024 12:06 PM EST 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 No evidence of active metastatic disease. Persistent sclerotic lesions in the axial skeleton at the sites of prior metastases. Thank you for letting us participate in the care of this patient. ??If you are a health care provider and have any questions regarding this report, please contact the number below. ??For patients who have questions please contact the health medicare sales executive that requested your imaging first. ? Narrative 03/08/2024 2:24 PM EST EXAMINATION: CT CHEST ABDOMEN PELVIS W CONTRAST (GENERIC) CLINICAL HISTORY: MBC, increasing markers and assess [...] growth factor receptor 2 positive status TECHNIQUE: Helical CT of the chest, abdomen, and pelvis following the intravenous administration of contrast. Administered 119.0 ml of OMNIPAQUE 350.00 mg/ml. Oral contrast was administered. COMPARISON: December 14, 2023, PET/CT July 28, 2022 and November 23, 2022 FINDINGS: Chest: Left-sided MediPort in place. Lungs and large airways: No suspicious masses or nodules. Pleura: No effusion. Heart/vasculature: Normal. Lymph nodes: No enlarged lymph nodes. Mediastinum and bari: Small hiatal hernia. Chest wall: Biopsy clip in the right breast on the right axilla. Abdomen/pelvis: Liver: Normal size and attenuation without lesions. Bile ducts: Nondilated. Gallbladder: No calcified gallstones. Normal caliber wall. Pancreas: Normal attenuation without ductal dilatation. Spleen: Normal. Adrenals: Normal. Kidneys: Normal. Urinary Bladder: Normal. Vasculature: No abdominal aortic aneurysm. Lymph Nodes: No enlarged lymph nodes. Bowel: Nondilated, no wall thickening. ?? Peritoneum and retroperitoneum: No free fluid or loculated fluid collection. No pneumoperitoneum. No mesenteric inflammation. Abdominal wall: Normal. Reproductive organs: Normal. Osseous structures: Unchanged faint sclerotic lesions throughout the spine and the pelvis at the site of prior metastases. Procedure Note Ernesto Carr MD - 03/08/2024 EXAMINATION: CT CHEST ABDOMEN PELVIS W CONTRAST (GENERIC) CLINICAL HISTORY: MBC, increasing markers and assess treatment respone C50.911, Malignant neoplasm of unspecified site of right female breast -C79.51, Secondary malignant neoplasm of bone - C50.811, Malignant neoplasm of overlapping sites of right female breast - Z17.1, Estrogen receptornegative status (ER-) - C50.919, Malignant neoplasm of unspecified site ofunspecified female breast - Z17.31, Human epidermal growth factor receptor 2 positivestatus TECHNIQUE: Helical CT of the chest, abdomen, and pelvis following the intravenous administration of contrast. Administered 119.0 ml ofOMNIPAQUE 350.00 mg/ml. Oral contrast was administered. COMPARISON: December 14, 2023, PET/CT July 28, 2022 and November 23, 2022 FINDINGS: Chest: Left-sided MediPort in place. Lungs and large airways: No suspicious masses or nodules. Pleura: No effusion. Heart/vasculature: Normal. Lymph nodes: No enlarged lymph nodes. Mediastinum and bari: Small hiatal hernia. Chest wall: Biopsy clip in the right breast on the right axilla. Abdomen/pelvis: Liver: Normal size and attenuation without lesions. Bile ducts: Nondilated. Gallbladder: No calcified gallstones. Normal caliber wall. Pancreas: Normal attenuation without ductal dilatation. Spleen: Normal. Adrenals: Normal. Kidneys: Normal. Urinary Bladder: Normal. Vasculature: No abdominal aortic aneurysm. Lymph Nodes: No enlarged lymph nodes. Bowel: Nondilated, no wall thickening. Peritoneum and retroperitoneum: No free fluid or loculated fluidcollection. No pneumoperitoneum. No mesenteric inflammation. Abdominal wall: Normal. Reproductive organs: Normal. Osseous structures: Unchanged faint sclerotic lesions throughout the spineand the pelvis at the site of prior metastases. IMPRESSION No new or enlarging lesions. No evidence of active metastatic disease. Persistent sclerotic lesions in the axial skeleton at the sites of prior metastases. Thank you for letting us participate in the care of this patient. If youare a health care provider and have any questions regarding this report,please contact the number below. For patients who have questions please contactthe health medicare sales executive that requested your imaging first. Consuelohomero Joyce LPN PER DIEM IMG CT ORDERABLES documented in this encounter [...] ONCE PRN, 1 dose, Starting on Yvette 03/08/24 at 1156, Until Yvette 03/08/24 at 1206, Per Protocol, Warning Vesicant/Irritant Medication , Radiology Contrast, Routine Given 03/08/2024 12:06 PM EST 119 mLs iohexoL (Omnipaque) (350 mg/mL) solution 0-50 mL 0-50 mL, Oral, ONCE, 1 dose, On Yvette 03/08/24 at 1245, Warning Vesicant/Irritant Medication , Radiology Contrast, Routine Given 03/08/2024 12:45 PM EST 50 mLs documented in this encounter Care Teams Aadc Plans Staff Officer Relationship Specialty Start Date End Date Ryan Betancourt MD [address] [place] [phone] PCP - General Family Medicine 07/29/22 documented as of this encounter
--- OUTSIDE RECORDS SUMMARY | 2024-06-01 20:37 | XMS_ITS | Encounter Summary ---
Author Organization [facility] Address [facility] [place] [address] Care Team Providers Care Deputy Sheriff Name Role Phone Ryan Betancourt MD Primary Care Provider [phone] Encounter Details Date Type Department Care Team (Latest Contact Info) Description 01/12/2024 Travel Social History Tobacco Use Types Packs/Day [...] AM EST Hospital En[place] [address] Consuelo Joyce APRN [facility] [place] [address] 06/14/2024 8:45 AM EST Appointment XRay at [address] [place] [address] Kavitha Rai MD [facility] DR HEMATOLOGY [place] [address] 06/14/2024 9:45 AM EST Appointment Hematology [place] [address] 06/14/2024 11:00 AM EST Appointment [place] [address] Consuelo Joyce APRN [facility] [place] [address] 06/14/2024 1:00 PM EST Office Visit Hematology [place] [address] Kavitha Rai MD [facility] HEMATOLOGY [place] [address] 06/14/2024 2:30 PM EST Appointment Hematology [place] [address] 07/05/2024 10:30 AM EDT Appointment Hematology and Oncology at [place] [phone] 07/05/2024 11:30 AM EDT Office Visit Hematology and Oncology at [place] [phone] Consuelo Joyce APRN [facility] DR [place] [address] 07/05/2024 1:00 PM EDT Appointment Hematology and Oncology at [place] [address] 08/16/2024 9:20 AM EDT Office Visit Ophthalmology at [place] [phone] Luz Jose, OD [facility] DR [place] [address] 01/14/2025 8:30 AM EDT Office Visit Psychiatry and Behavioral Health at [place] [address] Anna Oneill, PhD [facility] DR [place] [address] documented as of this encounter Visit Diagnoses Not on filedocumented in this encounter Care Teams Deputy Sheriff Relationship Specialty Start Date End Date Ryan Betancourt MD [address] [place] [phone] PCP - General Family Medicine 07/29/22 documented as of this encounter
--- OUTSIDE RECORDS SUMMARY | 2024-06-01 20:37 | XMS_ITS | Encounter Summary ---
Author Organization [facility] Address [facility] [place] [address] Care Team Providers Care Cloth Reeler Name Role Phone Ryan Betancourt MD Primary Care Provider [phone] Encounter Details Date Type Department Care Team (Latest Contact Info) Description 03/08/2024 Travel Social History Tobacco Use Types Packs/Day [...] place to sleep or slept in a mcc (including now)? No 07/29/2022 Sex and Gender Information Value Date Recorded Sex Assigned at Not on file Gender Identity Not on file Sexual Orientation Not on file documented as of this encounter Plan of Treatment Upcoming Encounters Date Type Department Care Team (Late st Contact Info) Description 06/14/2024 8:00 AM EST Hospital Encounter [place] [address] Consuelo Joyce APRN [facility] [place] [address] 06/14/2024 8:45 AM EST Appointment XRay at [address] [place] [address] Kavitha Rai MD [facility] DR [place] [address] 06/14/2024 9:45 AM EST Appointment Hematology [place] [address] 06/14/2024 11:00 AM EST Appointment [place] [address] Consuelo Joyce APRN [facility] [place] [place] [address] 06/14/2024 1:00 PM EST Office Visit Hematology [place] [address] Kavitha Rai MD [facility] [place] [address] 06/14/2024 2:30 PM EST Appointment Hematology [place] [address] 07/05/2024 10:30 AM EDT Appointment Hematology and Oncology at [place] [phone] 07/05/2024 11:30 AM EDT Office Visit Hematology and Oncology at [place] [phone] Consuelo Joyce APRN [facility] DR [place] [address] 07/05/2024 1:00 PM EDT Appointment Hematology and Oncology at [place] [address] 08/16/2024 9:20 AM EDT Office Visit Ophthalmology at [place] [phone] Luz Jose, OD [facility] DR [place] [address] 01/14/2025 8:30 AM EDT Office Visit Psychiatry and Behavioral Health at [place] [address] Anna Oneill, PhD [facility] DR [place] [address] documented as of this encounter Visit Diagnoses Not on filedocumented in this encounter Care Teams Cloth Reeler Relationship Specialty Start Date End Date Ryan Betancourt MD [address] [place] [phone] PCP - General Family Medicine 07/29/22 documented as of this encounter
--- OUTSIDE RECORDS SUMMARY | 2024-06-01 20:37 | XMS_ITS | Encounter Summary ---
Author Organization [facility] Address [facility] [place] [address] Care Team Providers Care Development Representative Name Role Phone Ryan Betancourt MD Primary Care Provider [phone] Encounter Details Date Type Department Care Team (Latest Contact Info) Description 12/30/2023 Travel Social History Tobacco Use Types Packs/Day [...] AM EST Hospital [place] [address] Consuelo Joyce APRN [facility] [place] [address] 06/14/2024 8:45 AM EST Appointment XRay at [address] [place] [address] Kavitha Rai MD [facility] DR HEMATOLOGY [place] [address] 06/14/2024 9:45 AM EST Appointment Hematology [place] [address] 06/14/2024 11:00 AM EST Appointment [place] [address] Consuelo Joyce APRN [facility] [place] [address] 06/14/2024 1:00 PM EST Office Visit Hematology [place] [address] Kavitha Rai MD [facility] HEMATOLOGY [place] [address] 06/14/2024 2:30 PM EST Appointment Hematology [place] [address] 07/05/2024 10:30 AM EDT Appointment Hematology and Oncology at [place] [phone] 07/05/2024 11:30 AM EDT Office Visit Hematology and Oncology at [place] [phone] Consuelo Joyce APRN [facility] [place] [address] 07/05/2024 1:00 PM EDT Appointment Hematology and Oncology at [place] [address] 08/16/2024 9:20 AM EDT Office Visit Ophthalmology at [place] [phone] Luz Jose, OD [facility] [place] [address] 01/14/2025 8:30 AM EDT Office Visit Psychiatry and Behavioral Health at [place] [address] Anna Oneill, PhD [facility] [place] [address] documented as of this encounter Visit Diagnoses Not on filedocumented in this encounter Care Teams Development Representative Relationship Specialty Start Date End Date Ryan Betancourt MD [address] [place] [phone] PCP - General Family Medicine 07/29/22 documented as of this encounter
--- OUTSIDE RECORDS SUMMARY | 2024-06-01 20:37 | XMS_ITS | Encounter Summary ---
Author Organization [facility] Address [facility] [place] [address] Care Team Providers Care Remedy Developer Name Role Phone Ryan Betancourt MD Primary Care Provider [phone] Encounter Details Date Type Department Care Team (Latest Contact Info) Description 01/17/2024 Travel Social History Tobacco Use Types Packs/Day [...] AM EST Hospital En[place] [address] [facility] [place] [address] 06/14/2024 8:45 AM EST Appointment XRay at [address] [place] [address] [facility] DR HEMATOLOGY [place] [address] 06/14/2024 9:45 AM EST Appointment Hematology [place] [address] 06/14/2024 11:00 AM EST Appointment [place] [address] [facility] [place] [address] 06/14/2024 1:00 PM EST Office Visit Hematology [place] [address] [facility] HEMATOLOGY [place] [address] 06/14/2024 2:30 PM EST Appointment Hematology [place] [address] 07/05/2024 10:30 AM EDT Appointment Hematology and Oncology at [place] [phone] 07/05/2024 11:30 AM EDT Office Visit Hematology and Oncology at [place] [phone] [facility] [place] [address] 07/05/2024 1:00 PM EDT Appointment Hematology and Oncology at [place] [address] 08/16/2024 9:20 AM EDT Office Visit Ophthalmology at [place] [phone] Luz Jose, OD [facility] [place] [address] 01/14/2025 8:30 AM EDT Office Visit Psychiatry and Behavioral Health at [place] [address] Anna Oneill, PhD [facility] [place] [address] documented as of this encounter Visit Diagnoses Not on filedocumented in this encounter Care Teams Remedy Developer Relationship Specialty Start Date End Date Ryan Betancourt MD [address] [place] [phone] PCP - General Family Medicine 07/29/22 documented as of this encounter
--- OUTSIDE RECORDS SUMMARY | 2024-06-01 20:37 | XMS_ITS | Encounter Summary ---
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 Blurry vision, bilateral Consuelo Joyce APRN [facility] [place] [address] Luz Jose, OD [facility] [place] [address] Referral ID Status Reason Start Date Expiration Date Visits Requested Visits Authorized [id number] Authorized Consult, Test & Treat 02/28/2024 02/27/2025 1 1 Reason for Visit * Reason Comments Follow-up Encounter Details Date Type Department Care Team (Late st Contact Info) Description 02/28/2024 10:00 AM EST Office Visit [place] [address] Consuelo Joyce APRN [facility] [place] [address] 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 No 07/29/2022 Sex and Gender Information Value Date Recorded Sex Assigned at Not on file Gender Identity Not on file Sexual Orientation Not on file documented as of this encounter Last Filed Vital Signs Vital Sign Reading Time Taken Comments Blood Pressure 127/85 02/28/2024 9:44 AM EST Pulse 73 02/28/2024 9:44 AM EST Temperature 36.9 ??C (98.4 ??F) 02/28/2024 9:44 AM ES T Respiratory Rate 18 02/28/2024 9:44 AM EST Oxygen Saturation 96% 02/28/2024 9:44 AM EST Inhaled Oxygen Concentration - - Weight 113.7 kg (250 lb 10.6 oz) 02/28/2024 9:44 AM EST Height 164.5 cm (5' 4.76) 02/28/2024 9:44 AM ES T Body Mass Index 42.02 02/28/2024 9:44 AM EST documented in this encounter Progress Notes * Consuelo Joyce, TELEPHONE ADVICE NURSE - 02/28/2024 10:00 AM EST Patient ID: Soy San [...] plan for every 6 weeks started 02/24/2023. 02/28/2024 TDM1 C5 N/V: not as much! [...] and there Hot flashes:not as many LMP: 7/ 8-9 Diarrhea: denies but loose stools, no time [...] most 3 x per cycle Going to [place] for vacation. 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 PET CT 04/07/2023: [...] right breast in the shower. Subsequently called [facility] womans wellness, seen that day. 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 Bowel sounds are normal. There is no tenderness. Musculoskeletal: Normal range of motion. Extremities: no clubbing, cyanosis or edema Neurological: She is alert and oriented to person, place, and time. Gait normal. Skin: Skin is warm and dry. Taxotere nails Psychiatric: She has a normal mood and affect. Her behavior is normal. Results: Lab Results Component Value Date WBC 5.59 02/28/2024 HGB 13.2 02/28/2024 HCT 41.0 02/28/2024 MCV 81.8 (L) 02/28/2024 PLATELET 248 02/28/2024 Lab Results Component Value Date NEUTROABS 2.91 02/28/2024 Lab Results Component Value Date NA 139 02/28/2024 K 3.6 02/28/2024 CL 103 02/28/2024 CO2 26 02/28/2024 BUN 14 02/28/2024 CREATININE 0.83 02/28/2024 GLUCOSE 111 02/28/2024 CALCIUM 9.1 02/28/2024 ESTGFR 89 02/28/2024 Lab Results Component Value Date ALT 38 (H) 02/28/2024 AST 31 (H) 02/28/2024 ALKPHOS 77 02/28/2024 BILITOT 0.3 02/28/2024 ALBUMIN 3.9 02/28/2024 PROT 7.3 02/28/2024 Carcinoembryonic Antigen Date Value 02/28/2024 5.7 ng/ml (H) 02/07/2024 5.5 ng/ml (H) 01/17/2024 5.1 ng/ml (H) 12/30/2023 2.9 ng/ml 12/15/2023 3.9 ng/ml (H) 11/03/2023 2.8 ng/mL 10/13/2023 2.4 ng/mL 09/22/2023 2.8 ng/mL 08/11/2023 2.3 ng/mL 07/21/2023 2.4 ng/mL CA 15-3 (unit/mL) Date Value 02/28/2024 34 (H) 02/07/2024 34 (H) 01/17/2024 34 (H) 12/30/2023 32 (H) 12/15/2023 32 (H) 11/03/2023 33 (H) 10/13/2023 28 [...] q 6 weeks [facility] New breast findings concerning for recurrent local disease however last imaging 06/2023 looks good with sustained response. Skin biopsy c/w local recurrence switch to TDM-1. Breast Cancer: TDM-1 C5D1 today - LFTs WNL today: will continue with dose reduce of TDM1 from 3.6 mg/kg to 3 mg/kg -CEA is elevated, CA 15-3 stable, reviewed with Dr. Rai, CT/BS and breast MRI scheduled -Increased breast pain imaging as above Saw Dr. Oneill cognitive clinic 01/11, f/u on 01/25 referral placed to speech therapy per Mai. 3. Continue denosumab q6w, on hold tooth scheduled to be pulled, needs to see specialists 4. Primary breast surgical consultation: Not recommended at this time per most recent tumor board discussion. Dr. Rai reviewed with patient previously RTC in 3 weeks with labs, MD/HOUSING COUNSELOR, and infusion with imaging if possible Total time spent: 40 minutes with > 50% spend in discussion of above Future Appointments Date Time Provider Department Center 03/08/2024 10:00 AM [facility] NM ELIZA MH Nuc Med [facility] Rad 03/08/2024 12:[address] [facility] [address] [facility] Rad 03/08/2024 1:00 PM MH NM ROOM 2 MH Nuc Med [facility] Rad 03/20/2024 10:15 AM ACCESS ROOM [facility] [address] [place] [address] 03/20/2024 11:20 AM Kavitha Rai MD [facility] 03/20/2024 12:30 PM [facility] INF[facility]ION THERAPY [address] 03/20/2024 4:50 PM [facility] MR 6 MH MRI [facility] Rad 04/10/2024 7:00 AM ACCESS ROOM [address] 04/10/2024 8:00 AM Consuelo Joyce APRN [facility] 04/10/2024 9:30 AM [facility] [address] 05/01/2024 10:30 AM ACCESS ROOM [address] 05/01/2024 11:30 AM Consuelo Joyce APRN [facility] 05/01/2024 1:30 PM [facility] [address] 01/14/2025 8:30 AM Anna Oneill, PhD [facility] 5D Behavioral H documented in this encounter Plan of Treatment Upcoming Encounters Date Type Department Care Team (Late st Contact Info) Description 06/14/2024 8:00 AM EST Hospital En[place] [address] Consuelo Joyce APRN [facility] [place] [address] 06/14/2024 8:45 AM EST Appointment XRay at [address] [place] [phone] Kavitha Rai MD [facility] DR [place] [address] 06/14/2024 9:45 AM EST Appointment Hematology and Oncology at [address] 06/14/2024 11:00 AM EST Appointment Nuclear Medicine at [address] Consuelo Joyce APRN [facility] [place] [address] 06/14/2024 1:00 PM EST Office Visit Hematology and Oncology at [address] Kavitha Rai MD [facility] DR [place] [address] 06/14/2024 2:30 PM EST Appointment Hematology and Oncology at [place] [phone] 07/05/2024 10:30 AM EDT Appointment Hematology and Oncology at [place] [address] 07/05/2024 11:30 AM EDT Office Visit Hematology and Oncology at [place] [phone] Consuelo Joyce [facility] [place] [address] 07/05/2024 1:00 PM EDT Appointment Hematology and Oncology at [place] [phone] 08/16/2024 9:20 AM EDT Office Visit Ophthalmology at [place] [address] Luz Jose OD [facility] [place] [address] 01/14/2025 8:30 AM EDT Office Visit Psychiatry [place] [address] Anna Oneill, PhD [facility] [place] [address] Scheduled Referrals Name Type Priority Associated Diagnoses Order Schedule Referral to Ophthalmology Outpatient Referral Routine 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
--- OUTSIDE RECORDS SUMMARY | 2024-06-01 20:37 | XMS_ITS | Encounter Summary ---
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 No 07/29/2022 Sex and Gender Information Value Date Recorded Sex Assigned at Not on file Gender Identity Not on file Sexual Orientation Not on file documented as of this encounter Last Filed Vital Signs Vital Sign Reading Time Taken Comments Blood Pressure 113/81 12/30/2023 1:22 PM EDT Pulse 60 12/30/2023 1:22 PM EDT Temperature 36.2 ??C (97.1 ??F) 12/30/2023 1:22 PM ED T Respiratory Rate - - Oxygen Saturation 99% 12/30/2023 1:22 PM EDT Inhaled Oxygen Concentration - - Weight 114.2 kg (251 lb 12.3 oz) 12/30/2023 1:22 PM EDT Height 164.9 cm (5' 4.92) 12/30/2023 1:22 PM ED T Body Mass Index 42 12/30/2023 1:22 PM EDT documented in this encounter Progress Notes * Consuelo Joyce, DECONTAMINATOR - 12/30/2023 1:00 PM EDT Patient ID: Soy San is a [...] plan for every 6 weeks started 02/24/2023. 12/30/2023 On TDM1, here for C2, delayed due [...] Recent biopsy of skin c/w breast cancer ER/MA- HER+ same as her other site of metastatic diease Reviewed next steps Breast continues to be more achy, cardoza, and sometimes feels like stabbing Very interested in surgery and would like to be able to get the cancer out of her breast. Vertigo: little bouts here and there Hot flashes:not as many LMP: 7-9 Diarrhea: denies but loose stools, no time [...] most 3 x per cycle Going to [place] for vacation. 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 PET CT [...] right breast in the shower. Subsequently called [facility] womans wellness, seen that day. [...] Saw Dr Patino who sent her to [facility]. 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 Her behavior is normal. Lab Results Component Value Date WBC 6.75 12/30/2023 HGB 13.1 12/30/2023 HCT 39.2 12/30/2023 MCV 83.8 12/30/2023 PLATELET 228 12/30/2023 Lab Results Component Value Date NEUTROABS 3.73 12/30/2023 Lab Results Component Value Date NA 140 12/30/2023 NA 142 11/03/2023 K 3.2 (L) 12/30/2023 K 3.9 11/03/2023 CL 107 12/30/2023 CL 108 (H) 11/03/2023 CO2 24 12/30/2023 CO2 23 11/03/2023 BUN 16 12/30/2023 BUN 18 11/03/2023 CREATININE 0.74 12/30/2023 CREATININE 0.82 11/03/2023 GLUCOSE 143 12/30/2023 GLUCOSE 111 11/03/2023 CALCIUM 8.9 12/30/2023 CALCIUM 9.0 11/03/2023 ESTGFR 90 11/03/2023 Lab Results Component Value Date ALT 23 12/30/2023 AST 17 12/30/2023 ALKPHOS 82 12/30/2023 BILITOT 0.3 12/30/2023 ALBUMIN 4.0 12/30/2023 PROT 6.8 12/30/2023 Carcinoembryonic Antigen Date Value 12/15/2023 3.9 ng/ml (H) 11/24/2023 2.8 ng/ml [...] [facility] New breast findings concerning for recurrent local disease however last imaging 06/2023 looks good with sustained response. Skin biopsy c/w local recurrence switch to TDM-1. Breast Cancer: TDM-1 C2D1 today - LFTs WNL today: dose reduce of TDM1 from 3.6 mg/kg to 3 mg/kg as reviewed with Dr. Rai and TDM1 protocol -CEA is elevated today will monitor with next cycle, CA 15-3 stable Pending referral, re-sent: Dr. Oneill cognitive clinic 3. Continue denosumab q6w, will hold today for upcoming dental work with likely need tooth pulled 4. Primary breast surgical consultation: Not recommended at this time per most recent tumor board discussion. Dr. Rai reviewed with patient today RTC on 01/16 to be back on Gypsy clinic day with labs in access, MD/VISION TEACHER, and infusion. Total time spent: 40 minutes with > 50% spend in discussion of above Future Appointments Date Time Provider Department Center 12/30/2023 2:30 PM [facility] INFUSION THERAPY [facility] [address] [place] [address] 01/05/2024 10:30 AM ACCESS ROOM [facility] [address] [place] [address] 01/05/2024 11:30 AM Consuelo Joyce APRN [facility] HEM ONC [facility] 01/05/2024 1:30 PM [facility] INFUSION THERAPY [facility] [address] [place] [address] 01/12/2024 8:30 AM Anna Oneill, PhD [facility] PSY 5D Behavioral H 01/26/2024 10:30 AM ACCESS ROOM [address] 01/26/2024 11:30 AM Consuelo Joyce APRN [facility] HEM ONC [facility] 01/26/2024 1:30 PM [facility] INFUSION THERAPY [address] 02/16/2024 10:45 AM ACCESS ROOM [address] 02/16/2024 11:40 AM Kavitha Rai MD [facility] HEM ONC [facility] 02/16/2024 1:30 PM [facility] INF[facility]ION THERAPY [address] documented in this encounter Plan of Treatment Upcoming Encounters Date Type Department Care Team (Late st Contact Info) Description 06/14/2024 8:00 AM EST Hospital Encounter [place] [address] Consuelo Joyce APRN [facility] [place] [address] 06/14/2024 8:45 AM EST Appointment XRay at [address] [place] [address] Kavitha Rai MD [facility] DR [place] [address] 06/14/2024 9:45 AM EST Appointment Hematology [place] [address] 06/14/2024 11:00 AM EST Appointment [place] [address] Sacks, Consuelo L, [facility] [place] [address] 06/14/2024 1:00 PM EST Office Visit Hematology and Oncology at [place] [phone] Kavitha Rai MD [facility] DR [place] [address] 06/14/2024 2:30 PM EST Appointment Hematology [place] [phone] 07/05/2024 10:30 AM EDT Appointment Hematology and Oncology at [place] [phone] 07/05/2024 11:30 AM EDT Office Visit Hematology and Oncology at [place] [address] Consuelo Joyce [facility] [place] [address] 07/05/2024 1:00 PM EDT Appointment Hematology [place] [phone] 08/16/2024 9:20 AM EDT Office Visit Ophthalmology at [place] [phone] Luz Jose, OD [facility] [place] [address] 01/14/2025 8:30 AM EDT Office Visit Psychiatry and Behavioral Health at [place] [phone] Anna Oneill, PhD [facility] [place] [address] documented as of this encounter Results * CEA (12/30/2023 11:28 AM EDT) Carcinoembryonic Antigen 2.9 <=3.8 ng/ml 12/30/2023 2:14 PM EDT [facility] Comment: Some smokers may have elevated CEA, generally < 5.5 ng/mL. This result was generated using a Deepak Dequan immunoassay. ??Results obtained from other methods or manufacturers cannot be used interchangeably with this method. 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
--- OUTSIDE RECORDS SUMMARY | 2024-06-01 20:37 | XMS_ITS | Encounter Summary ---
Author Organization [facility] Address [facility] [place] [address] Care Team Providers Care Caramel Cutter Hand Name Role Phone Ryan Betancourt MD Primary Care Provider [phone] Encounter Details Date Type Department Care Team (Latest Contact Info) Description 02/28/2024 Travel Social History Tobacco Use Types Packs/Day [...] AM EST Hospital Encounter [place] [address] Consuelo Joyce APRN [facility] [place] [address] 06/14/2024 8:45 AM EST Appointment XRay at [address] [place] [address] Kavitha Rai MD [facility] DR HEMATOLOGY [place] [address] 06/14/2024 9:45 AM EST Appointment Hematology [place] [address] 06/14/2024 11:00 AM EST Appointment [place] [address] Consuelo Joyce APRN [facility] [place] [address] 06/14/2024 1:00 PM EST Office Visit Hematology [place] [address] Kavitha Rai MD [facility] HEMATOLOGY [place] [address] 06/14/2024 2:30 PM EST Appointment Hematology [place] [address] 07/05/2024 10:30 AM EDT Appointment Hematology and Oncology at [place] [phone] 07/05/2024 11:30 AM EDT Office Visit Hematology and Oncology at [place] [phone] Consuelo Joyce APRN [facility] [place] [address] 07/05/2024 1:00 PM EDT Appointment Hematology and Oncology at [place] [address] 08/16/2024 9:20 AM EDT Office Visit Ophthalmology at [place] [phone] Luz Jose, OD [facility] [place] [address] 01/14/2025 8:30 AM EDT Office Visit Psychiatry and Behavioral Health at [place] [address] Anna Oneill, PhD [facility] [place] [address] documented as of this encounter Visit Diagnoses Not on filedocumented in this encounter Care Teams Caramel Cutter Hand Relationship Specialty Start Date End Date Ryan Betancourt MD [address] [place] [phone] PCP - General Family Medicine 07/29/22 documented as of this encounter
--- OUTSIDE RECORDS SUMMARY | 2024-06-01 20:37 | XMS_ITS | Encounter Summary ---
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 Malignant neoplasm of overlapping sites of right breast in female, estrogen receptor negative HER2-positive carcinoma of breast Procedures MRI Breast wwo Contrast Bilat Consuelo Joyce APRN [facility] [place] [address] [place] [address] Referral ID Status Reason Start Date Expiration Date V isits Requested Visits Authorized [id number] Closed Specialty Service Requested 02/23/2024 04/22/2024 1 1 * Diagnostic Test (Routine) - Closed Specialty Diagnoses / Procedures Referred By Contdede t Referred To Contact Radiology Diagnoses 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 Malignant neoplasm of overlapping sites of right breast in female, estrogen receptor negative HER2-positive carcinoma of breast Procedures NM Bone Scan Whole Body Consuelo Joyce APRN [facility] [place] [address] [facility] [place] [address] Referral ID Status Reason Start Date Expiration Date V isits Requested Visits Authorized [id number] Closed Specialty Service Requested 02/07/2024 08/07/2025 1 1 * Diagnostic Test (Routine) - Closed Specialty Diagnoses / Procedures Referred By Ciaran t Referred To Contact Radiology Diagnoses 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 Malignant neoplasm of overlapping sites of right breast in female, estrogen receptor negative HER2-positive carcinoma of breast Procedures CT Chest Abdomen Pelvis w Contrast (Generic) Consuelo Joyce APRN [facility] [place] [address] [facility] [place] [address] Referral ID Status Reason Start Date Expiration Date V isits Requested Visits Authorized [id number] Closed Specialty Service Requested 02/16/2024 04/15/2024 1 1 Reason for Visit * Reason Comments Follow-up Encounter Details Date Type Department Care Team (Late st Contact Info) Description 02/07/2024 8:00 AM EDT Office Visit Hematology [place] [phone] Consuelo Joyce APRN [facility] [place] [place] [address] 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; [...] Sign Reading Time Taken Comments Blood Pressure 146/81 02/07/2024 7:43 AM EDT Pulse 74 02/07/2024 7:43 AM EDT Temperature 37 ??C (98.6 ??F) 02/07/2024 7:43 AM EDT Respiratory Rate 18 02/07/2024 7:43 AM EDT Oxygen Saturation 97% 02/07/2024 7:43 AM EDT Inhaled Oxygen Concentration - - Weight 114.4 kg (252 lb 3.3 oz) 02/07/2024 7:43 AM EDT Height 164.5 cm (5' 4.76) 02/07/2024 7:43 AM ED T Body Mass Index 42.28 02/07/2024 7:43 AM EDT documented in this encounter Progress Notes * Consuelo Joyce APRN - 02/07/2024 8:00 AM EDT Patient ID: Soy San is [...] plan for every 6 weeks started 02/24/2023. 02/07/2024 TDM1 C4 N/V: nausea, sometimes zofran, [...] Recent biopsy of skin c/w breast cancer ER/[place]- HER+ same as her other site of [...] most 3 x per cycle Going to [place] for vacation. 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 [employer] No 911 exposure Objective Patient Vitals for the past 24 hrs: Temp Pulse Resp BP SpO2 02/07/24 0743 37 ??C (98.6 ??F) 74 18 146/81 97 % Reviewed in flowsheet, WNL Wt Readings from Last 3 Encounters: 02/07/24 114.4 kg (252 lb 3.3 oz) 01/17/24 114.8 kg (253 lb) 12/30/23 114.2 kg (251 lb 12.3 oz) Physical exam Limited by infusion setting [...] Lab Results Component Value Date WBC 5.59 02/07/2024 HGB 13.1 02/07/2024 HCT 40.0 02/07/2024 MCV 83.3 02/07/2024 PLATELET 247 02/07/2024 Lab Results Component Value Date NEUTROABS 3.34 02/07/2024 Lab Results Component Value Date NA 138 02/07/2024 K 3.4 (L) 02/07/2024 CL 104 02/07/2024 CO2 25 02/07/2024 BUN 13 02/07/2024 CREATININE 0.82 02/07/2024 GLUCOSE 146 02/07/2024 CALCIUM 9.1 02/07/2024 ESTGFR 90 11/03/2023 Lab Results Component Value Date ALT 32 (H) 02/07/2024 AST 26 02/07/2024 ALKPHOS 77 02/07/2024 BILITOT 0.3 02/07/2024 ALBUMIN 3.6 02/07/2024 PROT 6.9 02/07/2024 Carcinoembryonic Antigen Date Value 02/07/2024 5.5 ng/ml (H) 01/17/2024 5.1 ng/ml (H) 12/30/2023 2.9 ng/ml 12/15/2023 3.9 ng/ml (H) 11/24/2023 2.8 ng/ml 11/03/2023 2.8 ng/mL 10/13/2023 2.4 ng/mL 09/22/2023 2.8 ng/mL 08/11/2023 2.3 ng/mL 07/21/2023 2.4 ng/mL CA 15-3 (unit/mL) Date Value 02/07/2024 34 (H) 01/17/2024 34 (H) 12/30/2023 32 (H) 12/15/2023 32 (H) 11/24/2023 [...] mg/kg to 3 mg/kg -CEA is elevated with past 2 cycles, CA 15-3 stable, reviewed with Dr. Rai, new CT/BS and breastMRI ordered. -Increased breast pain and one new small spot: Reviewed with Dr. Rai, CT/BS and breast MRI orders placed today, will try to coordinate with next infusion Saw Dr. Oneill cognitive clinic 01/11, f/u on 01/25 referral placed to speech therapy per Mai. 3. Continue denosumab q6w, on hold tooth scheduled to be pulled on 03/01 4. Primary breast surgical consultation: Not recommended at this time per most recent tumor board discussion. Dr. Rai reviewed with patient previously RTC in 3 weeks with labs, MD/REFRACTORY REPAIRER, and infusion with imaging if possible Total time spent: 40 minutes with > 50% spend in discussion of above Future Appointments Date Time Provider Department Center 02/07/2024 9:30 AM LEB INFUSION THERAPY [facility] [address] [place] [address] 02/28/2024 9:00 AM ACCESS ROOM [facility] [address] [place] [address] 02/28/2024 10:00 AM Consuelo Joyce APRN [facility] HEM ONC [facility] 02/28/2024 11:30 AM LEB INFUSION THERAPY [facility] [address] [place] [address] 01/14/2025 8:30 AM Anna Oneill, PhD [facility] PSY 5D Behavioral H documented in this encounter Plan of Treatment Upcoming Encounters Date Type Department Care Team (Late st Contact Info) Description 06/14/2024 8:00 AM EST Hospital Encounter [place] [address] Consuelo Joyce APRN [facility] [place] [address] 06/14/2024 8:45 AM EST Appointment XRay at [address] [place] [address] Kavitha Rai MD [facility] DR HEMATOLOGY [place] [address] 06/14/2024 9:45 AM EST Appointment Hematology and Oncology at [place] [phone] 06/14/2024 11:00 AM EST Appointment Nuclear Medicine at [place] [phone] Consuelo Joyce [facility] [place] [address] 06/14/2024 1:00 PM EST Office Visit Hematology and Oncology at [place] [phone] Kavitha Rai MD [facility] [place] [address] 06/14/2024 2:30 PM EST Appointment Hematology [place] [address] 07/05/2024 10:30 AM EDT Appointment Hematology [place] [address] 07/05/2024 11:30 AM EDT Office Visit Hematology and Oncology at [place] [phone] Consuelo Joyce APRN [facility] [place] [place] [address] 07/05/2024 1:00 PM EDT Appointment Hematology [place] [phone] 08/16/2024 9:20 AM EDT Office [place] [address] Luz Jose, OD [facility] [place] [place] [address] 01/14/2025 8:30 AM EDT Office Visit Psychiatry [place] [address] Anna Oneill, PhD [facility] [place] [address] documented as of this encounter Results * MRI Breast wwo Contrast Bilat (03/20/2024 4:56 PM EST) WORKSTATION ID [id number] RAD Anatomical Region Laterality Modality Breast Bilateral [...] who have questions please contact the health healthcare or medical that requested your imaging first. ? Narrative 03/21/2024 5:43 PM EST EXAMINATION: MRI [...] contrast enhancement curve analysis was performed, using Threadflip software. COMPARISON STUDIES: Compared and/or correlated with [...] is not visualized on today's study Consuelo Gerardo Joyce WOOD BARREL RECONDITIONER IMG MRI ORDERABLES * NM Bone Scan Whole Body (03/08/2024 12:55 PM EST) WORKSTATION ID [id number] DH RAD Anatomical Region Laterality Modality Nuclear Medicine [...] who have questions please contact the health healthcare or medical that requested your imaging first. ? Electronically signed by: David Jack MD, [facility] ([phone]), at 03/09/2024 6:12 AM Narrative 03/09/2024 6:12 AM EST EXAMINATION: NM [...] patients who have questions please contactthe health healthcare or medical that requested your imaging first. Consuelo Joyce WOOD BARREL RECONDITIONER IMG NM ORDERABLES * CT Chest Abdomen Pelvis w Contrast (Generic) (03/08/2024 12:06 PM EST) WORKSTATION ID [id number] RAD Anatomical Region Laterality Modality Abdomen, Pelvis [...] who have questions please contact the health healthcare or medical that requested your imaging first. ? Electronically signed by: Ernesto Carr MD, [facility] ([phone]), at 03/08/2024 2:24 PM Narrative 03/08/2024 2:24 PM EST EXAMINATION: CT [...] patients who have questions please contactthe health healthcare or medical that requested your imaging first. 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
--- OUTSIDE RECORDS SUMMARY | 2024-06-01 20:38 | XMS_ITS | Encounter Summary ---
[place] [address] Care Team Providers Care Shuttle Bus Driver Name Role Phone Ryan Betancourt MD Primary Care Provider [phone] Reason for Referral * Consultation (Routine) - Authorized Specialty Diagnoses / Procedures Referred By Ciaran lopez Referred To Contact Hematology and Oncology Diagnoses Malignant neoplasm of overlapping sites of right breast in female, estrogen receptor negative Carcinoma of breast metastatic to bone, unspecified laterality HER2-positive carcinoma of breast Brain Consuelo Taylor APRN [facility] [place] [address] [facility] [address] [place] [address] Referral ID Status Reason Start Date Expiration Date Visits Requested Visits Authorized [id number] Authorized Consult, Test & Treat 11/24/2023 11/23/2024 1 1 Reason for Visit * Reason Comments Follow-up Encounter Details Date Type Department Care Team (Late st Contact Info) Description 11/24/2023 11:40 AM EDT Office Visit Hematology [place] [address] Kavitha Rai MD [facility] DR [place] [address] Malignant neoplasm of overlapping sites of right breast in female, estrogen receptor negative; Carcinoma of breast metastatic to bone, unspecified laterality; Medication management; HER2-positive carcinoma of breast; Brain fog Social History Tobacco Use Types Packs/Day Years Used Date Smoking Tobacco: Former Cigarettes 0.3 1 1 1996 Smokeless Tobacco: Former Alcohol Use Standard Drinks/Week Comments Not Currently [...] Sign Reading Time Taken Comments Blood Pressure 152/92 11/24/2023 10:12 AM EDT Pulse 65 11/24/2023 10:12 AM EDT Temperature 36.6 ??C (97.9 ??F) 11/24/2023 1 0:12 AM EDT Respiratory Rate 18 11/24/2023 10:1 2 AM EDT Oxygen Saturation 100% 11/24/2023 10: 12 AM EDT Inhaled Oxygen Concentration - - Weight 112.3 kg (247 lb 9.2 oz) 024 10:12 AM EDT Height 163.2 cm (5' 4.25) 11/24/2023 1 0:12 AM EDT Body Mass Index 42.16 11/24/2023 10:12 AM EDT documented in this encounter Progress Notes * Consuelo Joyce, MOBILE HOME PARK MANAGER - 11/24/2023 11:40 AM EDT Patient ID: Soy San is [...] plan for every 6 weeks started 02/24/2023. 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 To start TDM1 [...] Recent biopsy of skin c/w breast cancer ER/[place]- HER+ same as her other site of [...] most 3 x per cycle Going to [place] for vacation. 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 PET CT 04/07/2023: [...] right breast in the shower. Subsequently called [facility] womans wellness, seen that day. 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 Bowel sounds are normal. There is no tenderness. Musculoskeletal: Normal range of motion. Extremities: no clubbing, cyanosis or edema Neurological: She is alert and oriented to person, place, and time. Gait normal. Skin: Skin is warm and dry. Taxotere nails Psychiatric: She has a normal mood and affect. Her behavior is normal. Lab Results Component Value Date WBC 5.84 11/24/2023 HGB 13.8 11/24/2023 HCT 41.5 11/24/2023 MCV 83.8 11/24/2023 PLATELET 239 11/24/2023 Lab Results Component Value Date NEUTROABS 3.58 11/24/2023 Lab Results Component Value Date NA 143 11/24/2023 NA 142 11/03/2023 K 3.7 11/24/2023 K 3.9 11/03/2023 CL 107 11/24/2023 CL 108 (H) 11/03/2023 CO2 23 11/24/2023 CO2 23 11/03/2023 BUN 10 11/24/2023 BUN 18 11/03/2023 CREATININE 0.80 11/24/2023 CREATININE 0.82 11/03/2023 GLUCOSE 139 11/24/2023 GLUCOSE 111 11/03/2023 CALCIUM 9.1 11/24/2023 CALCIUM 9.0 11/03/2023 ESTGFR 90 11/03/2023 Lab Results Component Value Date ALT 98 (H) 11/24/2023 AST 51 (H) 11/24/2023 ALKPHOS 91 11/24/2023 BILITOT 0.4 11/24/2023 ALBUMIN 4.0 11/24/2023 PROT 6.8 11/24/2023 Carcinoembryonic Antigen (ng/mL) Date Value 11/03/2023 2.8 10/13/2023 2.4 09/22/2023 2.8 08/11/2023 2.3 07/21/2023 2.4 CA 15-3 (unit/mL) Date Value 11/03/2023 33 (H) 10/13/2023 28 (H) 09/22/2023 28 (H) 09/01/2023 30 (H) 08/11/2023 28 (H) A/P: Soy San is a 42 y.o. female with likely denovo stage 4 [...] q 6 weeks to sync up with [facility]. New breast findings concerning for recurrent local disease however last imaging 06/2023 looks good with sustained response. Skin biopsy c/w local recurrence switch to TDM-1 today. Breast Cancer: TDM-1 C1D1 today. OK for treat EOD: CT CAP, BS and MRI of breasts all stable, skin biopsy c/w recurrence Echo stable LVEF 62% -referral to Dr. Oneill cognitive clinic 2. 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 However will order MRI of head, neg for malignancy 3. Continue denosumab q6w -order signed for today. Some confusion over q12 or 4 week regiment. Prefer q4 week however will sync up with [facility] and make it q6 week. 4. Primary breast surgical consultation: Not recommended ( breast tumor board 02/22/2023 and surgeon), will reach out again for new discussion with local recurrence. RTC 3 weeks for MD/SENIOR FIRE PROTECTION ENGINEER visit , C2 TDM1, labs Total time spent: 40 minutes with > 50% spend in discussion of above Future Appointments Date Time Provider Department Center 12/15/2023 10:45 AM ACCESS ROOM [facility] [address] [place] [address] 12/15/2023 11:40 AM Kavitha Rai MD [facility]EM [facility] 12/15/2023 1:30 PM LEB INFUSION THERAPY [facility] [address] [place] [address] 01/05/2024 10:30 AM ACCESS ROOM [facility] [address] [place] [address] 01/05/2024 11:30 AM Consuelo Joyce APRN [facility]EM [facility] 01/05/2024 1:30 PM LEB INFUSION THERAPY [facility] [address] [place] [address] 01/26/2024 10:30 AM ACCESS ROOM [facility] [address] [place] [address] 01/26/2024 11:30 AM Consuelo Joyce APRN [facility] 01/26/2024 1:30 PM LEB INFUSION THERAPY [facility] [address] [place] [address] 02/16/2024 10:45 AM ACCESS ROOM [facility] 3K [facility] 02/16/2024 11:40 AM Kavitha Rai MD [facility] HEM ONC [facility] 02/16/2024 1:30 PM LEB INFUSION THERAPY [facility] [address] [place] [address] documented in this encounter Plan of Treatment Upcoming Encounters Date Type Department Care Team (Late st Contact Info) Description 06/14/2024 8:00 AM EST Hospital Encounter [place] [address] Consuelo Joyce APRN [facility] [place] [address] 06/14/2024 8:45 AM EST Appointment XRay at [address] [place] [address] Kavitha Rai MD [facility] [address] [place] [address] 06/14/2024 9:45 AM EST Appointment Hematology [place] [address] 06/14/2024 11:00 AM EST Appointment [place] [address] Consuelo Joyce APRN [facility] [place] [address] 06/14/2024 1:00 PM EST Office Visit Hematology [place] [address] Kavitha Rai MD [facility] [address] [place] [address] 06/14/2024 2:30 PM EST Appointment Hematology [place] [address] 07/05/2024 10:30 AM EDT Appointment Hematology [place] [address] 07/05/2024 11:30 AM EDT Office Visit Hematology and Oncology at [place] [phone] Consuelo Joyce APRN [facility] [place] [address] 07/05/2024 1:00 PM EDT Appointment Hematology [place] [address] 08/16/2024 9:20 AM EDT Office Visit Ophthalmology at [place] [address] Luz Jose, CARSON [facility] [place] [address] 01/14/2025 8:30 AM EDT Office Visit Psychiatry and Behavioral Health at [place] [address] Anna Oneill, PhD [facility] [address] Scheduled Referrals Name Type Priority Associated Diagnoses Orde r Schedule Referral to [facility] Psychiatry (Cancer Center Patients Only) Outpatient Referral Routine Malignant neoplasm of overlapping sites of right breast in female, estrogen receptor negative Carcinoma of breast metastatic to bone, unspecified laterality HER2-positive carcinoma of breast Brain fog Ordered: 11/24/2023 documented as of this encounter Visit Diagnoses Diagnosis Malignant neoplasm of overlapping sites of right breast in female, estrogen receptor negative Carcinoma of breast metastatic to bone, unspecified laterality Medication management Encounter for long-term (current) use of other medications HER2-positive carcinoma of breast Brain fog documented in this encounter Care Teams Shuttle Bus Driver Relationship Specialty Start Date End Date Ryan Betanocurt MD [address] [place] [phone] PCP - General Family Medicine 07/29/22 documented as of this encounter
--- OUTSIDE RECORDS SUMMARY | 2024-06-01 20:38 | XMS_ITS | Encounter Summary ---
Author Organization [facility] [place] [address] Care Team Providers Care Dot Compliance Manager Name Role Phone Ryan Betancourt MD Primary Care Provider Reason for Referral * Diagnostic Test (Routine) - Closed Specialty Diagnoses / Procedures Referred By Ciaran lopez Referred To Contact Radiology Diagnoses Malignant neoplasm of overlapping sites of right breast in female, estrogen receptor negative Deformity of nail bed Gastroesophageal reflux disease, unspecified whether esophagitis present Procedures CT Chest Abdomen Pelvis w Contrast (Generic) Kavitha Rai MD [facility] [address] [place] [address] [facility] [place] [address] Referral ID Status Reason Start Date Expiration Date V isits Requested Visits Authorized [id number] Closed Specialty Service Requested 09/22/2023 11/20/2023 1 1 Reason for Visit * Diagnostic Test (Routine) - Closed Specialty Diagnoses / Procedures Referred By Ciaran lopez Referred To Contact Radiology Diagnoses Malignant neoplasm of overlapping sites of right breast in female, estrogen receptor negative Deformity of nail bed Gastroesophageal reflux disease, unspecified whether esophagitis present Procedures CT Chest Abdomen Pelvis w Contrast (Generic) Kavitha Rai MD [facility] [address] [place] [address] [facility] [place] [address] Referral ID Status Reason Start Date Expiration Date V isits Requested Visits Authorized [id number] Closed Specialty Service Requested 09/22/2023 11/20/2023 1 1 Encounter Details Date Type Department Care Team (Latest Contact Info) Description 10/14/2023 11:19 AM EDT - 10/14/2023 1:59 PM EDT Hospital Encounter CT Scan at [facility] [place] [address] Kavitha Rai MD [facility] [address] [place] [address] Malignant neoplasm of overlapping sites of right breast in female, estrogen receptor negative; Deformity of nail bed; Gastroesophageal reflux disease, unspecified whether esophagitis present Discharge Disposition: Home Social History Tobacco Use [...] Sig Dispensed Refills Start Date End Date omeprazole (PriLOSEC) [address] capsuleIndications:Mal ignant [...] topically 2 times daily. 30 g 08/25/2022 lidocaine-prilocaine (EMLA) CreamIndications:Regan sol neoplasm of overlapping sites of right breast in female, estrogen receptor negative,Carcinoma of breast metastatic to bone, unspecified laterality Apply topically 60 minutes prior to accessing port. Apply a thick layer of cream to designated site of intact skin. Cover site with occlusive dressing. 30 g 1 10/13/2023 12/15/2023 ketoconazole (Nizoral) 2 % Cream Mix equal amounts of both creams and apply mixture topically to affected areas on the pannus, feet and breasts twice daily for 2 weeks as needed. 30 g 1 12/09/2022 12/30/2023 hydrocortisone 2.5 % Cream Mix equal amounts of both creams and apply mixture topically to affected areas on the pannus, feet and breasts twice daily for 2 weeks as needed. 30 g 1 12/09/2022 12/30/2023 ondansetron (Zofran) 8 mg tablet Take 1 tablet by mouth every 8 hours as needed for Nausea. 30 tablet 3 10/04/2022 05/03/2024 documented as of this encounter Plan of Treatment Upcoming Encounters Date Type Department Care Team (Late st Contact Info) Description 06/14/2024 8:00 AM EST Hospital Encounter [place] [address] Consuelo Joyce APRN [facility] [place] [address] 06/14/2024 8:45 AM EST Appointment XRay at [address] [place] [address] Kavitha Rai MD [facility] [address] [place] [address] 06/14/2024 9:45 AM EST Appointment Hematology [place] [address] 06/14/2024 11:00 AM EST Appointment [place] [address] Consuelo Joyce [facility] [address] 06/14/2024 1:00 PM EST Office Visit Hematology [place] [address] Kavitha Rai MD [facility] [address] [place] [address] 06/14/2024 2:30 PM EST Appointment Hematology [place] [address] 07/05/2024 10:30 AM EDT Appointment Hematology [place] [address] 07/05/2024 11:30 AM EDT Office Visit Hematology [place] [address] Consuelo Joyce APRN [facility] [place] [address] 07/05/2024 1:00 PM EDT Appointment Hematology and Oncology at [place] [phone] 08/16/2024 9:20 AM EDT Office Visit Ophthalmology at [place] [phone] Luz Jose, CARSON [facility] [place] [address] 01/14/2025 8:30 AM EDT Office Visit Psychiatry [place] [phone] Anna Oneill, PhD [facility] [place] [address] documented as of this encounter Procedures Procedure Name Priority Date/Time Associated Diagnosis Comments CT CHEST ABDOMEN PELVIS W CONTRAST (GENERIC) Routine 10/14/2023 2:02 PM EDT Malignant neoplasm of overlapping sites of right breast in female, estrogen receptor negative Deformity of nail bed Gastroesophageal reflux disease, unspecified whether esophagitis present documented in this encounter Results * CT Chest Abdomen Pelvis w Contrast (Generic) (10/14/2023 2:02 PM EDT) WORKSTATION ID [id number] RAD Anatomical Region Laterality Modality Abdomen, Pelvis Computed Tomogra phy Impressions 10/17/2023 10:17 AM EDT 1. ??No new or enlarging sites of metastatic disease. 2. ??Unchanged subtle right liver lesion, measuring 6 mm, in the location of FDG avid disease on prior PET/CT. 3. ??Unchanged sclerotic lesions within the axial and appendicular skeleton, also in the location of FDG avid disease seen on prior PET/CT. 4. ??No acute infectious/inflammatory process. Thank you for letting us participate in the care of this patient. ??If you are a health care provider and have any questions regarding this report, please contact the number below. ??For patients who have questions please contact the health medicare coordinator that requested your imaging first. ? Narrative 10/17/2023 10:17 AM EDT EXAMINATION: CT CHEST ABDOMEN PELVIS W CONTRAST (GENERIC) CLINICAL HISTORY: treatment response C50.811, Malignant neoplasm of overlapping sites of right female breast - Z17.1, Estrogen receptor negative status (ER-) - L60.8, Other nail disorders - K21.9, Gastro-esophageal reflux disease without esophagitis TECHNIQUE: Helical CT of the chest, abdomen, and pelvis following the intravenous administration of contrast. Administered 120.0 ml of OMNIPAQUE 350.00 mg/ml. Oral contrast was administered. COMPARISON: CT chest abdomen pelvis 06/23/2023. Nuclear medicine bone scan 10/14/2023. PET CT 07/28/2022. FINDINGS: Chest: Lungs and large airways: No airspace opacity to suggest pneumonia. No evidence of interstitial lung disease. Unchanged 5 mm subpleural left lower lobe opacity (series 6 image 357). Previously seen 4 mm nodule within the inferior aspect of the right upper lobe on 06/23/2023 CT is not identified on the current exam. Unchanged 4 mm right lower lobe nodule (series 6 image 324). No new or enlarging pulmonary nodules. Airways are normal. No bronchiectasis or bronchial wall thickening. Pleura: No pneumothorax. No pleural effusions. Heart/vasculature: Normal cardiac size. No pericardial effusion. Normal caliber of the thoracic aorta with widely patent arch origins. No aortic dissection or acute aortic syndrome. Left chest port central venous catheter tip terminates at the lower SVC. No central pulmonary emboli. Lymph nodes: Surgical clip within the right axilla. No axillary or subpectoral adenopathy. No internal thoracic adenopathy. No mediastinal or hilar adenopathy. Mediastinum and bari: Unchanged small hiatal hernia with no adjacent inflammation. Otherwise normal esophagus. No mediastinal hematoma, collection or pneumomediastinum. Chest wall: Unchanged right breast skin thickening. Clip present within the deep right breast. Abdomen/pelvis: Liver: Normal size, contour and attenuation. There is a subtle 6 mm low-attenuation lesion within the superior lateral right liver (series 3 image 77), unchanged in size compared to 06/23/2023 and in the location of FDG avid lesion on 07/28/2022. Bile ducts: Nondilated. Gallbladder: No calcified gallstones. Normal caliber wall. Pancreas: Normal attenuation without ductal dilatation. Spleen: Normal. Adrenals: Normal. Kidneys: Normal renal size. Normal symmetric renal enhancement. No hydronephrosis. No perinephric edema. No renal or ureteral calculi within limitations of contrast-enhanced technique. Urinary Bladder: Normal. Vasculature: No abdominal aortic aneurysm. Origins of the celiac axis and SMA are widely patent. Normal caliber of the IVC. The portal vein is patent. Lymph Nodes: No lymphadenopathy. Bowel: Small hiatal hernia with no adjacent inflammation. Otherwise normal stomach. Normal duodenum. No air or fluid filled dilated loops of bowel to suggest obstruction. Small quantity of stool throughout the colon. Normal terminal ileum. Normal appendix. No bowel wall thickening. Peritoneum and retroperitoneum: No free fluid or loculated fluid collection. No pneumoperitoneum. No mesenteric inflammation. Abdominal wall: Trace fat-containing umbilical hernia with no adjacent inflammation. Aforementioned right breast skin thickening. Reproductive organs: Normal uterus. Normal symmetric size of both ovaries. Osseous structures: Subtle sclerotic lesion involving the anterolateral left fourth rib (axial series 3 image 46), with some cortical thickening, in the location of FDG avid lesions seen on 07/28/2022 and unchanged compared to 06/23/2023. Abnormal sclerotic appearance of the inferior manubrium and sternum, also unchanged and at the site of prior FDG avid disease on PET CT 07/28/2022. Unchanged sclerotic lesion in the posterior right T11 vertebral body at the junction with the pedicle (series 9 image 76). Additional unchanged sclerotic lesion within the inferior endplate of T10 and anterior aspect of T12. Additional unchanged sclerotic lesion within the S1 sacral segment (series 9 image 73). No acute osseous findings. Procedure Note Addi Burton MD - 10/17/2023 EXAMINATION: CT CHEST ABDOMEN PELVIS W CONTRAST (GENERIC) CLINICAL HISTORY: treatment response C50.811, Malignant neoplasm of overlapping sites of right female breast -Z17.1, Estrogen receptor negative status (ER-) - L60.8, Other nail disorders -K21.9, Gastro-esophageal reflux disease without esophagitis TECHNIQUE: Helical CT of the chest, abdomen, and pelvis following the intravenous administration of contrast. Administered 120.0 ml ofOMNIPAQUE 350.00 mg/ml. Oral contrast was administered. COMPARISON: CT chest abdomen pelvis 06/23/2023. Nuclear medicine bone scan 10/14/2023. PET CT 07/28/2022. FINDINGS: Chest: Lungs and large airways: No airspace opacity to suggest pneumonia. Noevidence of interstitial lung disease. Unchanged 5 mm subpleural left lower lobeopacity (series 6 image 357). Previously seen 4 mm nodule within the inferioraspect of the right upper lobe on 06/23/2023 CT is not identified on the currentexam. Unchanged 4 mm right lower lobe nodule (series 6 image 324). No new orenlarging pulmonary nodules. Airways are normal. No bronchiectasis or bronchialwall thickening. Pleura: No pneumothorax. No pleural effusions. Heart/vasculature: Normal cardiac size. No pericardial effusion. Normalcaliber of the thoracic aorta with widely patent arch origins. No aorticdissection or acute aortic syndrome. Left chest port central venous catheter tipterminates at the lower SVC. No central pulmonary emboli. Lymph nodes: Surgical clip within the right axilla. No axillary orsubpectoral adenopathy. No internal thoracic adenopathy. No mediastinal or hilaradenopathy. Mediastinum and bari: Unchanged small hiatal hernia with no adjacent inflammation. Otherwise normal esophagus. No mediastinal hematoma,collection or pneumomediastinum. Chest wall: Unchanged right breast skin thickening. Clip present withinthe deep right breast. Abdomen/pelvis: Liver: Normal size, contour and attenuation. There is a subtle 6 mm low-attenuation lesion within the superior lateral right liver (series 3image 77), unchanged in size compared to 06/23/2023 and in the location of FDGavid lesion on 07/28/2022. Bile ducts: Nondilated. Gallbladder: No calcified gallstones. Normal caliber wall. Pancreas: Normal attenuation without ductal dilatation. Spleen: Normal. Adrenals: Normal. Kidneys: Normal renal size. Normal symmetric renal enhancement. No hydronephrosis. No perinephric edema. No renal or ureteral calculiwithin limitations of contrast-enhanced technique. Urinary Bladder: Normal. Vasculature: No abdominal aortic aneurysm. Origins of the celiac axis andSMA are widely patent. Normal caliber of the IVC. The portal vein is patent. Lymph Nodes: No lymphadenopathy. Bowel: Small hiatal hernia with no adjacent inflammation. Otherwisenormal stomach. Normal duodenum. No air or fluid filled dilated loops of bowelto suggest obstruction. Small quantity of stool throughout the colon.Normal terminal ileum. Normal appendix. No bowel wall thickening. Peritoneum and retroperitoneum: No free fluid or loculated fluidcollection. No pneumoperitoneum. No mesenteric inflammation. Abdominal wall: Trace fat-containing umbilical hernia with no adjacent inflammation. Aforementioned right breast skin thickening. Reproductive organs: Normal uterus. Normal symmetric size of bothovaries. Osseous structures: Subtle sclerotic lesion involving the anterolateralleft fourth rib (axial series 3 image 46), with some cortical thickening, inthe location of FDG avid lesions seen on 07/28/2022 and unchanged compared to 06/23/2023. Abnormal sclerotic appearance of the inferior manubrium and sternum,also unchanged and at the site of prior FDG avid disease on PET CT 07/28/2022. Unchanged sclerotic lesion in the posterior right T11 vertebral body atthe junction with the pedicle (series 9 image 76). Additional unchangedsclerotic lesion within the inferior endplate of T10 and anterior aspect of T12. Additional unchanged sclerotic lesion within the S1 sacral segment (series9 image 73). No acute osseous findings. IMPRESSION 1. No new or enlarging sites of metastatic disease. 2. Unchanged subtle right liver lesion, measuring 6 mm, in the locationof FDG avid disease on prior PET/CT. 3. Unchanged sclerotic lesions within the axial and appendicularskeleton, also in the location of FDG avid disease seen on prior PET/CT. 4. No acute infectious/inflammatory process. Thank you for letting us participate in the care of this patient. If youare a health care provider and have any questions regarding this report,please contact the number below. For patients who have questions please contactthe health medicare coordinator that requested your imaging first. Kavitha Rai MD IMG CT ORDERABLES documented in this encounter Visit Diagnoses Diagnosis Malignant neoplasm of overlapping sites of right breast in female, estrogen receptor negative Deformity of nail bed Gastroesophageal reflux disease, unspecified whether esophagitis present documented in this encounter Administered Medications Inactive Administered Medications - up to 3 most recent administrations Medication Order MAR Action Action Date Dose Rate Site iohexoL (Omnipaque) (350 mg/mL) solution 0-200 mL 0-200 mL, Intravenous, ONCE PRN, 1 dose, Starting on Tue10/14/23 at 1356, Until Tue10/14/23 at 1356, Per Protocol, Warning Vesicant/Irritant Medication , Radiology Contrast, Routine Given 10/14/2023 1:56 PM EDT 120 mLs iohexoL (Omnipaque) (350 mg/mL) solution 0-50 mL 0-50 mL, Oral, ONCE, 1 dose, On Tue10/14/23 at 1415, Warning Vesicant/Irritant Medication , Radiology Contrast, Routine Given 10/14/2023 2:15 PM EDT 50 mLs documented in this encounter Care Teams Dot Compliance Manager Relationship Specialty Start Date End Date Ryan Betancourt MD [address] [place] [phone] PCP - General Family Medicine 07/29/22 documented as of this encounter
--- OUTSIDE RECORDS SUMMARY | 2024-06-01 20:38 | XMS_ITS | Encounter Summary ---
Author Organization [place] [address] Care Team Providers Care Transportation Equipment Painter Name Role Phone Ryan Betancourt MD Primary Care Provider [phone] Reason for Visit * Diagnostic Test (Routine) - Closed Specialty Diagnoses / Procedures Referred By Ciaran lopez Referred To Contact Radiology Diagnoses Malignant neoplasm of overlapping sites of right breast in female, estrogen receptor negative Deformity of nail bed Gastroesophageal reflux disease, unspecified whether esophagitis present Procedures NM Bone Scan Whole Body Kavitha Rai MD [facility] [place] [address] [place] [address] Referral ID Status Reason Start Date Expiration Date V isits Requested Visits Authorized [id number] Closed Specialty Service Requested 09/22/2023 03/23/2025 1 1 Encounter Details Date Type Department Care Team (Latest Contact Info) Description 10/14/2023 2:00 PM EDT - 10/14/2023 4:33 PM EDT Hospital Encounter [place] [address] Kavitha Rai MD [facility] [place] [address] Discharge Disposition: Home Social History Tobacco Use Types Packs/Day Years Used Date Smoking Tobacco: Former Cigarettes 0.3 1 1 996 - 1996 Smokeless Tobacco: Former Alcohol Use Standard [...] Date End Date omeprazole (PriLOSEC) 20 mg capsuleIndications:Mal ignant neoplasm of overlapping sites of [...] AM EST Hospital Encounter [place] [address] Consuelo Joyce APRN [facility] [place] [place] [address] 06/14/2024 8:45 AM EST Appointment XRay at [address] [place] [address] Kavitha Rai MD [facility] [place] [address] 06/14/2024 9:45 AM EST Appointment Hematology [place] [address] 06/14/2024 11:00 AM EST Appointment Nuclear Medicine at [place] [address] Consuelo Joyce APRN [facility] [place] [address] 06/14/2024 1:00 PM EST Office Visit Hematology and Oncology at [place] [address] Kavitha Rai MD [facility] [address] [place]EM[place] [address] 06/14/2024 2:30 PM EST Appointment Hematology and Oncology at [place] [address] 07/05/2024 10:30 AM EDT Appointment Hematology and Oncology at [place] [address] 07/05/2024 11:30 AM EDT Office Visit Hematology and Oncology at [place] [address] Consuelo Joyce SCIENTIFIC SPECIALIST [facility] [place] [address] 07/05/2024 1:00 PM EDT Appointment Hematology and Oncology at [place] [address] 08/16/2024 9:20 AM EDT Office Visit Ophthalmology at [place] [address] Luz Jose, CARSON [facility] [place] [address] 01/14/2025 8:30 AM EDT Office Visit Psychiatry and Behavioral Health at [place] [address] Anna Oneill, PhD [facility] [place] [address] documented as of this encounter Procedures Procedure Name Priority Date/Time Associated Diagnosis Comments NM BONE SCAN WHOLE BODY Routine 10/14/2023 2:31 PM EDT Malignant neoplasm of overlapping sites of right breast in female, estrogen receptor negative Deformity of nail bed Gastroesophageal reflux disease, unspecified whether esophagitis present documented in this encounter Results * NM Bone Scan Whole Body (10/14/2023 2:31 PM EDT) WORKSTATION ID [id number] RAD Anatomical Region Laterality Modality Nuclear Medicine Impressions 10/14/2023 5:08 PM EDT 1. 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 2. ??No other sites of MDP avid osseous metastasis. Thank you for letting us participate in the care of this patient. ??If you are a health care provider and have any questions regarding this report, please contact the number below. ??For patients who have questions please contact the health medicare sales executive that requested your imaging first. ? Narrative 10/14/2023 5:08 PM EDT EXAMINATION: NM BONE SCAN WHOLE BODY CLINICAL HISTORY: treatment response C50.811, Malignant neoplasm of overlapping sites of right female breast - Z17.1, Estrogen receptor negative status (ER-) - L60.8, Other nail disorders - K21.9, Gastro-esophageal reflux disease without esophagitis TECHNIQUE: Three hours following the intravenous administration of 26.2 mCi of technetium-99m MDP, planar images of the skeleton in anterior and posterior projection were obtained. COMPARISON: CT chest abdomen pelvis 10/14/2023, Whole body bone scan 06/23/2023 FINDINGS: Stable appearance of diffuse MDP avidity throughout sternum and lower portion of the manubrium, correlating with diffuse sclerosis seen on same-day CT. No other MDP avid osseous lesions. Normal activity is present in the kidneys and urinary bladder. Procedure Note David Jack MD - 10/14/2023 EXAMINATION: NM BONE SCAN WHOLE BODY CLINICAL HISTORY: treatment response C50.811, Malignant neoplasm of overlapping sites of right female breast -Z17.1, Estrogen receptor negative status (ER-) - L60.8, Other nail disorders -K21.9, Gastro-esophageal reflux disease without esophagitis TECHNIQUE: Three hours following the intravenous administration of 26.2mCi of technetium-99m MDP, planar images of the skeleton in anterior andposterior projection were obtained. COMPARISON: CT chest abdomen pelvis 10/14/2023, Whole body bone scan06/23/2023 FINDINGS: Stable appearance of diffuse MDP avidity throughout sternum and lowerportion of the manubrium, correlating with diffuse sclerosis seen on same-day CT. No other MDP avid osseous lesions. Normal activity is present in the kidneys and urinary bladder. IMPRESSION 1. 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 2. No other sites of MDP avid osseous metastasis. Thank you for letting us participate in the care of this patient. If youare a health care provider and have any questions regarding this report,please contact the number below. For patients who have questions please contactthe health medicare sales executive that requested your imaging first. Kavitha Rai MD [facility] [place] ORDERABLES documented in this encounter Visit Diagnoses Not on filedocumented in this encounter Care Teams Transportation Equipment Painter Relationship Specialty Start Date End Date Ryan Betancourt MD [address] [place] [phone] PCP - General Family Medicine 07/29/22 documented as of this encounter
--- OUTSIDE RECORDS SUMMARY | 2024-06-01 20:38 | XMS_ITS | Encounter Summary ---
Author Organization [facility] [place] [address] Care Team Providers Care Senior Litigation Paralegal Name Role Phone Ryan Betancourt MD Primary Care Provider [phone] Reason for Visit * Treatment/Therapy Plan Authorization (Routine) - Authorized Specialty Diagnoses / Procedures Referred By Contdede t Referred To Contact Hematology and Oncology Diagnoses Malignant neoplasm of overlapping sites of right breast in female, estrogen receptor negative Consuelo Joyce APRN [facility] [place] [address] [address] Referral ID Status Reason Start Date Expiration Date V isits Requested Visits Authorized [id number] Authorized 11/03/2023 [id number] Encounter Details Date Type Department Care Team (Latest Contact Info) Description 12/15/2023 10:26 AM EDT - 12/15/2023 11:59 PM EDT Hospital Encounter Hematology [place] [address] Malignant neoplasm of overlapping sites of right breast in female, estrogen receptor negative Discharge Disposition: Home Social History Tobacco Use Types Packs/Day Years Used Date Smoking Tobacco: Former Cigarettes 0.3 1 1 - 1996 Smokeless Tobacco: Former Alcohol Use [...] Sig Dispensed Refills Start Date End Date oxyCODONE-acetaminophe n (Percocet) 5-325 mg tablet Take [...] dose today for tooth pain 12/08/2023 05/03/2024 ketoconazole (Nizoral) 2 % Cream Mix equal [...] Progress Notes * Marin Ramirez RN - 12/15/2023 10:49 AM EDT Patient Name: Soy San Patient Age: 43 y.o. Birthdate: 1980 Admit date: 12/15/2023 Attending Physician: No att. providers found Access visit. See MAR and/or flowsheet. documented in this encounter Miscellaneous Notes * Addendum Note - Marin Ramirez RN - 12/15/2023 1:43 PM EDTEncounter addended by: Marin Ramirez RN on: 12/15/2023 1:43 PM Actions taken: MAR administration accepted, Flowsheet accepted documented in this encounter Plan of Treatment Upcoming Encounters Date Type Department Care Team (Late st Contact Info) Description 06/14/2024 8:00 AM EST Hospital Encounter Nuclear Medicine at [place] [phone] Consuelo Joyce [facility] [place] [address] 06/14/2024 8:45 AM EST Appointment XRay at [address] [place] [address] Kavitha Rai MD [facility] [address] [place] [address] 06/14/2024 9:45 AM EST Appointment Hematology [place] [address] 06/14/2024 11:00 AM EST Appointment [place] [address] Consuelo Joyce [facility] [place] [address] 06/14/2024 1:00 PM EST Office Visit Hematology [place] [address] Kavitha Rai MD [facility] HEMATOLOGY [place] [address] 06/14/2024 2:30 PM EST Appointment Hematology [place] [address] 07/05/2024 10:30 AM EDT Appointment Hematology [place] [address] 07/05/2024 11:30 AM EDT Office Visit Hematology [place] [address] Consuelo Joyce APRN [facility] [place] [address] 07/05/2024 1:00 PM EDT Appointment Hematology [place] [phone] 08/16/2024 9:20 AM EDT Office [place] [phone] Luz Jose, OD [facility] [place] [address] 01/14/2025 8:30 AM EDT Office Visit Psychiatry and [place] [phone] Anna Oneill, PhD [facility] [place] [address] documented as of this encounter Procedures Procedure Name Priority Date/Time Associated Diagnosis Comments CANCER ANTIGEN 15-3 STAT 12/15/2023 1 0:49 AM EDT Malignant neoplasm of overlapping sites of right breast in female, estrogen receptor negative CBC (WITH DIFF) STAT 12/15/2023 10:49 AM EDT Malignant neoplasm of overlapping sites of right breast in female, estrogen receptor negative CEA Routine 12/15/2023 10:49 AM EDT Malignant neoplasm of overlapping sites of right breast in female, estrogen receptor negative COMPREHENSIVE METABOLIC PANEL STAT 12/15/2023 10:49 AM EDT Malignant neoplasm of overlapping sites of right breast in female, estrogen receptor negative documented in this encounter Results * (ABNORMAL) Cancer antigen 15-3 (12/15/2023 10:49 AM EDT) CA 15-3 32(H) <=25 unit/mL 12/15/2023 11:41 AM EDT [facility] Comment:This result was gene rated using a Deepak Dequan immunoassay. Results obtained from other methods or manufacturers cannot be used interchangeably with this method. Blood VENOUS BLOOD SPECIMEN / Unknown IP Care Team Draw / Unknown 12/15/2023 10:49 AM EDT 12/15/2023 10:59 AM EDT Kavitha Rai MD CHEMISTRY ORDERABLES [facility] [place] [address] * (ABNORMAL) Comprehensive metabolic panel (12/15/2023 10:49 AM EDT) Glucose 149 65 - 199 mg/dL 12/15/2023 11:28 AM EDT [facility] Comment:Glucose Concentratio n >=200 mg/dL plus symptoms is consistent with Diabetes Mellitus. Blood Urea Nitrogen 13 8 - 18 mg/dL 12/15/2023 11:28 AM [facility] Creatinine 0.72 0.70 - 1.20 mg/dL 12/15/2023 11:28 AM [facility] Sodium 142 135 - 145 mMol/L 12/15/2023 11:28 AM [facility] Potassium 3.5 3.5 - 5.0 mMol/L 12/15/2023 11:28 AM [facility] Chloride 107 98 - 107 mMol/L 12/15/2023 11:28 AM [facility] Carbon Dioxide 25 22 - 31 mMol/L 12/15/2023 11:28 AM [facility] Anion Gap 10 5 - 15 mMol/L 12/15/2023 11:28 AM [facility] Calcium 9.3 8.5 - 10.5 mg/dL 12/15/2023 11:[facility] Protein, Total 7.1 6.1 - 8.0 g/dL 12/15/2023 11:28 AM EDT [facility] Albumin 3.9 3.2 - 5.2 g/dL 12/15/2023 11:28 AM [facility] Aspartate Aminotransferase 196(H) <=30 unit/L 12/15/2023 11:28 AM [facility] Alanine Aminotransferase 268(H) 0 - 30 unit/L 12/15/2023 11:28 AM [facility] Alkaline Phosphatase 128(H) 35 - 105 unit/L 12/15/2023 11:28 AM [facility] Bilirubin, Total 0.2 <=1.3 mg/dL 12/15/2023 11:28 AM [facility] Est Glomerular Filtration Rate - Female 105 mL/min/1. 73 m?? 12/15/2023 11:28 AM [facility] Comment: This patient's estimated GFR [...] Calculator [employer] Fasting Status No 12/15/2023 11:28 AM EDT [facility] Blood VENOUS BLOOD SPECIMEN / Unknown IP Care Team Draw / Unknown 12/15/2023 10:49 AM EDT 12/15/2023 10:59 AM EDT Kavitha Rai MD CHEMISTRY ORDERABLES [facility] [place] [address] * (ABNORMAL) CBC (with Diff) (12/15/2023 10:49 AM EDT) White Blood Cell 5.90 4.00 - 9.50 x10(3)/mc L 12/15/2023 11:04 AM [facility] Red Blood Cell 4.73 4.00 - 5.21 x10(6)/mc L 12/15/2023 11:04 AM [facility] Hemoglobin 13.2 11.7 - 15.5 g/dL 12/15/2023 11:04 AM [facility] Hematocrit 39.8 35.7 - 45.8 % 12/15/2023 11:04 AM [facility] Mean Cell Volume 84.1 82.6 - 94.4 fL 12/15/2023 11:04 AM [facility] Mean Cell Hemoglobin 27.9 27.1 - 32.0 pg 12/15/2023 11:04 AM [facility] Mean Cell Hemoglobin Concentration 33.2 31.7 - 35.0 g/dL 12/15/2023 11:04 AM [facility] Platelet 297 145 - 357 x10(3)/mc L 12/15/2023 11:04 AM [facility] Mean Platelet Volume 10.3 7.6 - 12.9 fL 12/15/2023 11:04 AM [facility] RDW Standard Deviation 39.3 37.0 - 46.0 fL 12/15/2023 11:04 AM [facility] RDW coefficient of variation 13.0 11.5 - 14.1 % 12/15/2023 11:04 AM [facility] NRBC% auto 0.0 % 12/15/2023 11:04 AM [facility] NRBC Absolute 0.00 0.00 - 0.00 x10(3)/mc L 12/15/2023 11:04 AM [facility] Neutrophil % 55.0 % 12/15/2023 11:04 AM [facility] Neutrophil Absolute (ANC) - Automated 3.25 1.70 - 6.10 x10(3)/mc L 12/15/2023 11:04 AM EDT [facility] Lymph % 35.1 % 12/15/2023 11:04 AM EDT [facility] Lymph Absolute 2.07 0.90 - 3.20 x10(3)/mc L 12/15/2023 11:04 AM EDT [facility] Monocyte % 4.6 % 12/15/2023 11:04 AM EDT [facility] Monocyte Absolute 0.27(L) 0.30 - 0.90 x10(3)/mc L 12/15/2023 11:04 AM EDT [facility] Eos % 4.6 % 12/15/2023 11:04 AM EDT [facility] Eos Absolute 0.27 0.00 - 0.40 x10(3)/mc L 12/15/2023 11:04 AM EDT [facility] Basophil % 0.5 % 12/15/2023 11:04 AM EDT [facility] Baso Absolute 0.03 0.00 - 0.10 x10(3)/mc L 12/15/2023 11:04 AM EDT [facility] Immature Gran % 0.2 % 11:04 AM EDT [facility] Immature Gran Absolute 0.01 0.00 - 0.04 x10(3)/mc L 12/15/2023 11:04 AM EDT [facility] Blood VENOUS BLOOD SPECIMEN / Unknown IP Care Team Draw / Unknown 12/15/2023 10:49 AM EDT 12/15/2023 10:59 AM EDT Kavitha Rai MD HEMATOLOGY ORDERABLE S [facility] [place] [address] * (ABNORMAL) CEA (12/15/2023 10:49 AM EDT) Carcinoembryonic Antigen 3.9(H) <=3.8 ng/ml 12/15/2023 11:41 AM EDT [facility] Comment: Some smokers may have elevated CEA, generally < 5.5 ng/mL. This result was generated using a Deepak Dequan immunoassay. ??Results obtained from other methods or manufacturers cannot be used interchangeably with this method. Blood VENOUS BLOOD SPECIMEN / Unknown IP Care Team Draw / Unknown 12/15/2023 10:49 AM EDT 12/15/2023 10:59 AM EDT Kavitha Rai MD CHEMISTRY ORDERABLES [facility] [place] [address] documented in this encounter Visit Diagnoses Diagnosis [...] EVERY 1 MIN PRN, Starting on Yvette 12/15/23 at 1030, Until Tue12/16/23 at 0435, Line Care, Flush pertains to all indwelling lines. Flush per protocol found in the job aid using the link provided on this medication record. Refer to Intravenous (IV) Job Aid: Adult Flushing & Catheter Care (1588) job aid for additional information regarding guidelines and administration., Routine Given 12/15/2023 1:43 PM EDT 20 mLs Given 12/15/2023 10:50 AM EDT 20 mLs documented in this encounter Care Teams Senior Litigation Paralegal Relationship Specialty Start Date End Date Ryan Betancourt MD [address] [place] [phone] PCP - General Family Medicine 07/29/22 documented as of this encounter
--- OUTSIDE RECORDS SUMMARY | 2024-06-01 20:38 | XMS_ITS | Encounter Summary ---
Author Organization [facility] [place] [address] Care Team Providers Care Machine Worker Name Role Phone Ryan Betancourt MD Primary Care Provider [phone] Encounter Details Date Type Department Care Team (Latest Contact Info) Description 11/24/2023 9:00 AM EDT Clinical Support Hematology and Oncology at [facility] [place] [address] Avel Naqvi, [facility] Malignant neoplasm of overlapping sites of right [...] place to sleep or slept in a intermediate (including now)? No 07/29/2022 Sex and Gender Information Value Date Recorded Sex Assigned at Not on file Gender Identity Not on file Sexual Orientation Not on file documented as of this encounter Progress Notes * Avel Naqvi, [facility] - 11/24/2023 9:00 AM EDT Pharmacist New Chemo Teach Visit PATIENT ID: Soy San is a 43 y.o. female with breast cancer who presents today for chemotherapy teaching. The plan is for Kadcyla given every 3 weeks. The following information was reviewed with the patient. Drug-Drug / Drug-Herb Interactions: none Antitumor Therapy Schedule: Ado-Trastuzumab Emtansine (Kadcyla) every 3 weeks Possible Side Effects include, but are not limited to: Decrease in blood counts (decrease in white blood cells, red blood cells and platelets, resulting in increased risk of infection, anemia and bleeding),numbness and tingling in the hands and feet, infusion reactions, mild nausea, constipation, changes in liver function/damage, rash, muscle aches, hea dache, small risk of heart failure or decrease in heart function, pulmonary toxicity. CINV Collaborative Practice Agreement (CPA): This regimen is LEC. D/w patient and was already on CPA previously. Deferred signing back up again this visit. CINV Risk Assessment: Age < 50 years: Yes Female gender: Yes History of morning sickness during : Yes Prone to motion sickness: No History of prior CINV: Yes [place] Antiemetics: Ondansetron 8 mg IV/PO x 1 Antiemetic Prescriptions: (already has at home with refills) Prochlorperazine 10 mg PO Q6H PRN nausea/vomiting Zofran 8 mg PO Q8h PRN nausea/vomiting Plan: Soo was given written information regarding chemotherapy regimen, side effects and managementstrategies. Soo was given an opportunity to ask questions and verbalized understanding of the information and treatment plan. No barriers to learning were identified. She was counseled on how to callfor any further questions or concerns. Chemotherapy is scheduled to begin on 11/24/23 Echocardiogram: repeat done Supportive Care: Initial antiemetic regimen includes zofran and compazine prn Prescriptions for other supportive care agents will be reviewed with patient and written by the PABLO. Reviewed possible side effects of constipation and diarrhea. Soy San should call the clinic if > 3 loose stools per day or > 2 days without a bowel movement. Reviewed that fatigue is a common side effect of cancer treatment. Rest, but not too much: Plan your day so you have time to rest. Take naps that are 30 minutes or less. Try to sleep 7-8 hours each night. Stay active: Stay as active as possible with moderate exercise like walking. Save your energy: Prioritize activities that are most important and plan ahead to spread out activities throughout the day with rest as needed. Get help: Ask family or friends for help if needed. Get support: Consider joining a support group. Sharing feelings can ease the burden of fatigue and you may learn some other coping strategies from others. Eat well: Drink at least 64 fluid ounces of water daily if possible. Prioritize eating healthy fruits, vegetables, and protein. Call your doctor: If you are unable to get out of bed for a 24-hour period, confused, dizzy, or experience shortness of breath, contact the clinic. Soy San was given the contact information for the breast oncology team ([phone]) and was instructed to call with any questions or concerns during normal business hours (Tuesday-Tuesday 8 am - 5 pm). The hospital remote pilot operator phone number ([phone]) was provided to reach the on-call oncology fellow during nights, weekends, and holidays. Pharmacy follow up appointment: none 35 of this 60 minute face to face encounter was spent in counseling, education and coordination of care. documented in this encounter Plan of Treatment Upcoming Encounters Date Type Department Care Team ([facility] st Contact Info) Description 06/14/2024 8:00 AM EST Hospital Encounter [place] [address] Consuelo Joyce APRN [facility] [place] [address] 06/14/2024 8:45 AM EST Appointment XRay at [address] [place] [address] Kavitha Rai MD [facility] DR [place]AT[place] [address] 06/14/2024 9:45 AM EST Appointment Hematology [place] [address] 06/14/2024 11:00 AM EST Appointment [place] [address] Consuelo Joyce [facility] [place] [address] 06/14/2024 1:00 PM EST Office Visit Hematology [place] [address] Kavitha Rai MD [facility] DR HEMATOLOGY [place] [address] 06/14/2024 2:30 PM EST Appointment Hematology [place] [address] 07/05/2024 10:30 AM EDT Appointment Hematology [place] [address] 07/05/2024 11:30 AM EDT Office Visit Hematology [place] [address] Consuelo Joyce APRN [facility] [place] [address] 07/05/2024 1:00 PM EDT Appointment Hematology and Oncology at [place] [phone] 08/16/2024 9:20 AM EDT Office [place] [address] Luz Jose, OD [facility] [place] [address] 01/14/2025 8:30 AM EDT Office Visit Psychiatry [place] [address] Anna Oneill, PhD [facility] [place] [address] documented as of this encounter Visit Diagnoses Diagnosis Malignant neoplasm of overlapping sites of right breast in female, estrogen receptor negative documented in this encounter Care Teams Machine Worker Relationship Specialty Start Date End Date Ryan Betancourt MD [address] [place] [phone] PCP - General Family Medicine 07/29/22 documented as of this encounter
--- OUTSIDE RECORDS SUMMARY | 2024-06-01 20:38 | XMS_ITS | Encounter Summary ---
[place] [address] Care Team Providers Care Medication Aide Name Role Phone Ryan Betancourt MD Primary Care Provider [phone] Reason for Referral * Diagnostic Test (Routine) - Closed Specialty Diagnoses / Procedures Referred By Ciaran lopez Referred To Contact Radiology Diagnoses Malignant neoplasm of overlapping sites of right breast in female, estrogen receptor negative Deformity of nail bed Gastroesophageal reflux disease, unspecified whether esophagitis present Procedures MRI Breast wwo Contrast Kavitha Benavides MD [facility] [place] [address] [place] [address] Referral ID Status Reason Start Date Expiration Date V isits Requested Visits Authorized [id number] Closed Specialty Service Requested 09/22/2023 11/20/2023 1 1 Reason for Visit * Diagnostic Test (Routine) - Closed Specialty Diagnoses / Procedures Referred By Ciaran lopez Referred To Contact Radiology Diagnoses Malignant neoplasm of overlapping sites of right breast in female, estrogen receptor negative Deformity of nail bed Gastroesophageal reflux disease, unspecified whether esophagitis present Procedures MRI Breast wwo Contrast Kavitha Benavides MD [facility] [place] [address] [place] [address] Referral ID Status Reason Start Date Expiration Date V isits Requested Visits Authorized [id number] Closed Specialty Service Requested 09/22/2023 11/20/2023 1 1 Encounter Details Date Type Department Care Team (Latest Contact Info) Description 10/14/2023 4:34 PM EDT - 10/14/2023 11:59 PM EDT Hospital Encounter MRI at [facility] [place] [address] Kavitha Rai MD [facility] [place] [address] Malignant neoplasm of overlapping sites of right [...] AM EST Hospital Encounter Nuclear Medicine at [place] [phone] Consuelo Joyce APRN [facility] [place] [address] 06/14/2024 8:45 AM EST Appointment XRay at [address] [place] [address] Kavitha Rai MD [facility] [address] [place] [address] 06/14/2024 9:45 AM EST Appointment Hematology and Oncology at [place] [phone] 06/14/2024 11:00 AM EST Appointment Nuclear Medicine at [place] [phone] Consuelo Joyce APRN [facility] [place] [address] 06/14/2024 1:00 PM EST Office Visit Hematology and Oncology at [place] [phone] Kavitha Rai MD [facility] [place] [address] 06/14/2024 2:30 PM EST Appointment Hematology [place] [address] 07/05/2024 10:30 AM EDT Appointment Hematology and Oncology at [place] [phone] 07/05/2024 11:30 AM EDT Office Visit Hematology and Oncology at [place] [phone] Consuelo Joyce APRN [facility] [place] [address] 07/05/2024 1:00 PM EDT Appointment Hematology and Oncology at [place] [phone] 08/16/2024 9:20 AM EDT Office [place] [phone] Luz Jose, OD [facility] [place] [address] 01/14/2025 8:30 AM EDT Office Visit Psychiatry and Behavioral Health at [place] [phone] Anna Oneill, PhD [facility] [place] [address] documented as of this encounter Procedures Procedure Name Priority Date/Time Associated Diagnosis Comments MRI BREAST WWO CONTRAST BILAT Routine 10/14/2023 6:12 PM EDT Malignant neoplasm of overlapping sites of right breast in female, estrogen receptor negative Deformity of nail bed Gastroesophageal reflux disease, unspecified whether esophagitis present documented in this encounter Results * MRI Breast wwo Contrast Bilat (10/14/2023 6:12 PM EDT) WORKSTATION ID [id number] 1 RAD Anatomical Region Laterality Modality Breast Bilateral Magnetic Resonan ce Impressions 10/18/2023 8:12 AM EDT 1. ??Unchanged 4.8 cm area of non-mass enhancement in the mid/deep central right breast at the site of biopsy-proven malignancy. 2. ??The prior extensive RIGHT axillary and internal mammary adenopathy has resolved 3. ??Resolution of left with new medial right patchy dermal enhancement, favored to represent interval infectious/inflammatory process. Recommend correlation with physical exam. 4. ??Unchanged mildly enhancing sternal lesion at site of prior metastasis. RECOMMENDATION: Continued surgical/oncologic management. FINAL ASSESSMENT: LEFT BREAST: BI-RADS Category 1: Negative RIGHT BREAST: BI-RADS Category 6: Known Biopsy-Proven Malignancy I have personally reviewed the image(s) and the resident's interpretation and agree with the findings, Evelyn Ngo MD at 10/18/2023 8:12 AM Thank you for letting us participate in the care of this patient. ??If you are a health care provider and have any questions regarding this report, please contact the number below. ??For patients who have questions please contact the health rental boats caretaker that requested your imaging first. ? Narrative 10/18/2023 8:12 AM EDT EXAMINATION: MRI BREAST WWO CONTRAST BILAT CLINICAL INDICATION: locally advancedde daylin stage 4 breast cancer s/p neoadjuvant THP and on maintence HP. progressive breast changes R/o recurrence History of stage IV HER2+ breast cancer with locally advanced breast cancer on the right. TECHNIQUE: Multiplanar sequences were obtained pre- and post- Dotarem enhancement, to include SPGR weighted dynamic run-off and subtraction sequences obtained after the intravenous administration of 22 ccs of Dotarem. Computer algorithm analysis for lesion detection and kinetic contrast enhancement curve analysis was performed, using [employer] software. COMPARISON STUDIES: Compared and/or correlated with prior studies including MR breast 06/23/2023. FINDINGS: Background Enhancement Pattern (first post Dotarem image): Mild (25-50% breast) Amount of Fibroglandular Tissue: The breast tissue is heterogeneously dense, which may obscure small masses. LEFT Breast: No areas of parenchymal mass or nonmass enhancement. Susceptibility artifact in the upper inner left breast corresponds to left chest port. Interval resolution of patchy lower inner breast dermal enhancement. RIGHT Breast: Unchanged segmental of clumped regional nonmass enhancement in the mid /deep central right breast anterior to the susceptibility artifact/biopsy clip (series 7, image 63 and series 12, image 170). No new areas of mass or nonmass enhancement. Unchanged scattered background parenchymal enhancement. ??Similar degree of T2 hyperintense right breast skin thickening. 2 new focal areas of dermal enhancement in the superior and middle medial breast. RIGHT BREAST LESION #1: ??Remeasured at 2.7 x 2.8 x 4.8 cm (craniocaudal x transverse x AP) Non mass enhancement ??mid/deep central , 5.8 cm from the nipple by MRI. Non mass enhancement: Distribution: Segmental Internal enhancement: Clumped Kinetics: Initial upslope: Medium Delayed phase: Progressive Lymph Node Basins/Other: There is no evidence of internal mammary or axillary adenopathy. Unchanged residual area of mild enhancement in the left mid sternum (series 7, image 54). Visualized lower neck and upper abdomen is unremarkable. Kavitha Rai MD IMG MRI ORDERABLES documented in this encounter [...] PRN, 1 dose, Starting on Tue10/14/23 at 1730, Until Tue10/14/23 at 1803, Per Protocol, Radiology Contrast, Routine Given 10/14/2023 6:03 PM EDT 22 mLs documented in this encounter Care Teams Medication Aide Relationship Specialty Start Date End Date Ryan Betancourt MD [address] [place] [phone] PCP - General Family Medicine 07/29/22 documented as of this encounter
--- OUTSIDE RECORDS SUMMARY | 2024-06-01 20:38 | XMS_ITS | Encounter Summary ---
Author Organization [facility] Address [facility] [place] [address] Care Team Providers Care Sludge Control Attendant Name Role Phone Ryan Betancourt MD Primary Care Provider [phone] Encounter Details Date Type Department Care Team (Latest Contact Info) Description 11/07/2023 Travel Social History Tobacco Use Types Packs/Day [...] AM EST Hospital Encounter [place] [address] Consuelo Joyce APRN [facility] [place] [address] 06/14/2024 8:45 AM EST Appointment XRay at [address] [place] [address] Kavitha Rai MD [facility] DR [place] [address] 06/14/2024 9:45 AM EST Appointment Hematology [place] [address] 06/14/2024 11:00 AM EST Appointment [place] [address] Consuelo Joyce APRN [facility] [place] [address] 06/14/2024 1:00 PM EST Office Visit Hematology [place] [address] Kavitha Rai MD [facility] [place] [address] 06/14/2024 2:30 PM EST Appointment Hematology [place] [address] 07/05/2024 10:30 AM EDT Appointment Hematology and Oncology at [place] [phone] 07/05/2024 11:30 AM EDT Office Visit Hematology and Oncology at [place] [phone] Consuelo Joyce APRN [facility] [place] [address] 07/05/2024 1:00 PM EDT Appointment Hematology and Oncology at [place] [address] 08/16/2024 9:20 AM EDT Office Visit Ophthalmology at [place] [phone] Luz Jose, OD [facility] [place] [address] 01/14/2025 8:30 AM EDT Office Visit Psychiatry and Behavioral Health at [place] [address] Anna Oneill, PhD [facility] [place] [address] documented as of this encounter Visit Diagnoses Not on filedocumented in this encounter Care Teams Sludge Control Attendant Relationship Specialty Start Date End Date Ryan Betancourt MD [address] [place] [phone] PCP - General Family Medicine 07/29/22 documented as of this encounter
--- OUTSIDE RECORDS SUMMARY | 2024-06-01 20:38 | XMS_ITS | Encounter Summary ---
Author Organization [facility] Address [facility] [place] [address] Care Team Providers Care Welder Fitter Apprentice Name Role Phone Ryan Betancourt MD Primary Care Provider [phone] Encounter Details Date Type Department Care Team (Latest Contact Info) Description 11/09/2023 Multidisciplinary Ca re Committee Hematology [place] [phone] Rosaline Lea MD [facility] DR [place] [address] Social History Tobacco Use Types Packs/Day Years [...] as of this encounter Progress Notes * Rosaline Lea MD - 11/09/2023 9:50 AM EDT Breast - Tumor Board Note Date Presented: 11/09/2023 Presenting Physician: Fredi Diagnosis/Tumor Site: Is this Metastatic Disease: Yes Synopsis of History/HPI: 43 yo with de daylin stage IV er/pr neg, her2 + breast cancer with liver andbone mets. S/p THP x 6 cycles with complete radiographic response Now with progressive skin changes Imaging: MRI reviewed, with significant skin thickening and asymmetry Pathology/Histology: skin biopsy 10/13/23 consistent with metastatic cancer to dermis: er/pr neg her2 + Stage: IV Clinical Data (Exams, Labs, etc.): Molecular Pathology Results: Clinical Trial Availability: none Options Discussed: no benefit from palliative surgery, radiation could be considered for local control if no evidence of progression elsewhere vs change systemic therapy and observe Recommendations: Additional testing to include: PET-CT to restage, if skin only metatases consider RT now vs observation on next line therapy with TDM-1 DISCLAIMER: The patient was discussed and the tumor board made recommendations but it is ultimatelyup to the treatment provider(s) and the patient to determine the patient???s care. documented in this encounter Plan of Treatment Upcoming Encounters Date Type Department Care Team (Late st Contact Info) Description 06/14/2024 8:00 AM EST Hospital Encounter Nuclear Medicine at [place] [phone] Consuelo Joyce APRN [facility] [place] [address] 06/14/2024 8:45 AM EST Appointment XRay at [address] [place] [address] Kavitha Rai MD [facility] DR [place] [address] 06/14/2024 9:45 AM EST Appointment Hematology and Oncology at [address] 06/14/2024 11:00 AM EST Appointment Nuclear Medicine at [place] [phone] Consuelo Joyce APRN [facility] [place] [address] 06/14/2024 1:00 PM EST Office Visit Hematology and Oncology at [place] [phone] Kavitha Rai MD [facility] DR [place] [address] 06/14/2024 2:30 PM EST Appointment Hematology [place] [address] 07/05/2024 10:30 AM EDT Appointment Hematology and Oncology at [place] [phone] 07/05/2024 11:30 AM EDT Office Visit Hematology [place] [address] Consuelo Joyce APRN [facility] [place] [address] 07/05/2024 1:00 PM EDT Appointment Hematology and Oncology at [place] [address] 08/16/2024 9:20 AM EDT Office [place] [phone] Luz Jose, OD [facility] [place] [address] 01/14/2025 8:30 AM EDT Office Visit Psychiatry and Behavioral Health at [place] [address] Anna Oneill, PhD [facility] [place] [address] documented as of this encounter Visit Diagnoses Not on filedocumented in this encounter Care Teams Welder Fitter Apprentice Relationship Specialty Start Date End Date Ryan Betancourt MD [address] [place] [phone] PCP - General Family Medicine 07/29/22 documented as of this encounter
--- OUTSIDE RECORDS SUMMARY | 2024-06-01 20:38 | XMS_ITS | Encounter Summary ---
Author Organization [facility] Address [facility] [place] [address] Care Team Providers Care Calender Let Off Helper Name Role Phone Ryan Betancourt MD Primary Care Provider [phone] Encounter Details Date Type Department Care Team (Latest Contact Info) Description 12/15/2023 Travel Social History Tobacco Use Types Packs/Day [...] AM EST Hospital Encounter [place] [address] Consuelo Joyce APRN [facility] [place] [address] 06/14/2024 8:45 AM EST Appointment XRay at [address] [place] [address] Kavitha Rai MD [facility] DR HEMATOLOGY [place] [address] 06/14/2024 9:45 AM EST Appointment Hematology [place] [address] 06/14/2024 11:00 AM EST Appointment [place] [address] Consuelo Joyce APRN [facility] [place] [address] 06/14/2024 1:00 PM EST Office Visit Hematology [place] [address] Kavitha Rai MD [facility] HEMATOLOGY [place] [address] 06/14/2024 2:30 PM EST Appointment Hematology [place] [address] 07/05/2024 10:30 AM EDT Appointment Hematology and Oncology at [place] [phone] 07/05/2024 11:30 AM EDT Office Visit Hematology and Oncology at [place] [phone] Consuelo Joyce APRN [facility] [place] [address] 07/05/2024 1:00 PM EDT Appointment Hematology and Oncology at [place] [address] 08/16/2024 9:20 AM EDT Office Visit Ophthalmology at [place] [phone] Luz Jose, OD [facility] [place] [address] 01/14/2025 8:30 AM EDT Office Visit Psychiatry and Behavioral Health at [place] [address] Anna Oneill, PhD [facility] [place] [address] documented as of this encounter Visit Diagnoses Not on filedocumented in this encounter Care Teams Calender Let Off Helper Relationship Specialty Start Date End Date Ryan Betancourt MD [address] [place] [phone] PCP - General Family Medicine 07/29/22 documented as of this encounter
--- OUTSIDE RECORDS SUMMARY | 2024-06-01 20:38 | XMS_ITS | Encounter Summary ---
Author Organization [facility] [place] [address] Care Team Providers Care Pulp Making Plant Operator Name Role Phone Ryan Betancourt MD Primary Care Provider [phone] Reason for Visit * Treatment/Therapy Plan Authorization (Routine) - Closed Specialty Diagnoses / Procedures Referred By Ciaran lopez Referred To Contact Diagnoses Malignant neoplasm of overlapping sites of right breast in female, estrogen receptor negative Procedures -PHESGO (PERTUZUMAB TRASTUZUMAB & HYALURONIDASE-ZZXF) Kavitha Rai MD [facility] DR HEMATOLOGY [place] [address] [facility] [address] [place] [address] Referral ID Status Reason Start Date Expiration Date Visits Re quested Visits Authorized [id number] Closed 04/07/2023 04/06/2024 1 106 Encounter Details Date Type Department Care Team (Latest Contact Info) Description 11/03/2023 6:47 AM EDT - 11/03/2023 11:59 PM EDT Hospital Encounter [place] [phone] Malignant neoplasm of overlapping sites [...] daily. 30 g 08/25/2022 lidocaine-prilocaine (EMLA) CreamIndications:Regan nant neoplasm of overlapping sites of right breast [...] as of this encounter Progress Notes * Maria C Rock RN - 11/03/2023 7:10 AM EDT Patient Name: Soy San Patient Age: 43 y.o. Birthdate: 1980 Admit date: 11/03/2023 Attending Physician: No att. providers found Access visit. See MAR and/or flowsheet. documented in this encounter Plan of Treatment Upcoming Encounters Date Type Department Care Team (Late st Contact Info) Description 06/14/2024 8:00 AM EST Hospital Encounter [place] [phone] Consuelo Joyce APRN [facility] [place]ICAL [place] [address] 06/14/2024 8:45 AM EST Appointment XRay at [address] [place] [phone] Kavitha Rai MD [facility] DR HEMATOLOGY [place] [address] 06/14/2024 9:45 AM EST Appointment Hematology and Oncology at [address] 06/14/2024 11:00 AM EST Appointment Nuclear Medicine at [place] [phone] Consuelo Joyce [facility] [place] [address] 06/14/2024 1:00 PM EST Office Visit Hematology and Oncology at [place] [phone] Kavitha Rai MD [facility] DR HEMATOLOGY [place] [address] 06/14/2024 2:30 PM EST Appointment Hematology and Oncology at [place] [phone] 07/05/2024 10:30 AM EDT Appointment Hematology and Oncology at [place] [phone] 07/05/2024 11:30 AM EDT Office Visit Hematology and Oncology at [place] [phone] Consuelo Joyce [facility] [place] [address] 07/05/2024 1:00 PM EDT Appointment Hematology and Oncology at [place] [phone] 08/16/2024 9:20 AM EDT Office Visit Ophthalmology at [place] [phone] Luz Jose OD [facility] [place] [address] 01/14/2025 8:30 AM EDT Office Visit Psychiatry [place] [address] Anna Oneill, PhD [facility] [place] [address] documented as of this encounter Procedures Procedure Name Priority Date/Time Associated Diagnosis Comments HEMOGRAM STAT 11/03/2023 7:05 AM EDT Malignant neoplasm of overlapping sites of right breast in female, estrogen receptor negative DIFFERENTIAL, AUTOMATED STAT 11/03/2023 7:05 AM EDT Malignant neoplasm of overlapping sites of right breast in female, estrogen receptor negative CANCER ANTIGEN 15-3 STAT 11/03/2023 7 :05 AM EDT Malignant neoplasm of overlapping sites of right breast in female, estrogen receptor negative CBC (WITH DIFF) STAT 11/03/2023 7:05 AM EDT Malignant neoplasm of overlapping sites of right breast in female, estrogen receptor negative CEA Routine 11/03/2023 7:05 AM EDT Malignant neoplasm of overlapping sites of right breast in female, estrogen receptor negative COMPREHENSIVE METABOLIC PANEL STAT 11/03/2023 7:05 AM EDT Malignant neoplasm of overlapping sites of right breast in female, estrogen receptor negative documented in this encounter Results * Differential, Automated (11/03/2023 7:05 AM EDT) Neutrophil % 60.2 % [facility] Neutrophil Absolute 3.11 1.70 - 6.10 x10(3)/[facility] Lymph % 31.3 % [facility] Lymphocytes Abs 1.6 0.9 - 3.2 x10(3)/[facility] Monocyte % 5.0 % [facility] Monocyte Abs 0.3 0.3 - 0.9 x10(3)/[facility] Eos % 2.9 % [facility] Eosinophils Abs 0.2 0.0 - 0.4 x10(3)/[facility] Basophil % 0.4 % [facility] Baso Absolute 0.0 0.0 - 0.1 x10(3)/[facility] Immature Gran % 0.20 % [facility] Comment: Immature granulocytes(IG's)percentage and absolute count will include metamyelocytes, myelocytes, and promyelocytes. Blood smears from CBCs yielding IG's will be scanned manually for concordance. If this scan disagrees with the automated IG or if promyelocytes are noted, a manual differential will be performed. Immature Gran Absolute 0.01 0.00 - 0.04 x10(3)/[facility] Blood 11/03/2023 7:05 AM EDT 11/03/2023 7:24 AM EDT Narrative Resulting Agency Comment Spec In Lab Kavitha Rai MD HEMATOLOGY ORDERABLE S Performing Organization Address City/State/[facility] Co de Phone Number [facility] [place] [address] * Hemogram (11/03/2023 7:05 AM EDT) White Blood Cell 5.2 4.0 - 9.5 x10(3)/[facility] Red Blood Cell 4.84 4.00 - 5.21 x10(6)/[facility] Hemoglobin 13.8 11.7 - 15.5 g/dL [facility] Hematocrit 40.7 35.7 - 45.8 % [facility] Mean Cell Volume 84.1 82.6 - 94.[address] [facility] Mean Cell Hemoglobin 28.5 27.1 - 32.[address] [facility] Mean Cell Hemoglobin Concentration 33.9 31.7 - 35.0 g/dL [facility] Platelet 253 145 - 357 x10(3)/[facility] RDW Standard Deviation 41.9 37.0 - 46.0 [facility] RDW coefficient of variation 13.5 11.5 - 14.1 % [facility] Mean Platelet Volume 10.2 7.6 - 12.9 [facility] NRBC% auto 0.0 % [facility] NRBC Absolute 0.000 0.000 - 0.000 x10(3)/[facility] Blood 11/03/2023 7:05 AM EDT 11/03/2023 7:24 AM EDT Narrative Resulting Agency Comment Spec In Lab Kavitha Rai MD HEMATOLOGY ORDERABLE S Performing Organization Address City/[facility]/ZIP Co de Phone Number [facility] [place] [address] * (ABNORMAL) Cancer antigen 15-3 (11/03/2023 7:05 AM EDT) CA 15-3 33(H) <=25 unit/mL [facility] Comment: This result was generated using a Deepak Dequan immunoassay. ??Results obtained from other methods or manufacturers cannot be used interchangeably with this method. Blood 11/03/2023 7:05 AM EDT 11/03/2023 7:24 AM EDT Narrative Resulting Agency Comment Spec In Lab Kavitha Rai MD CHEMISTRY ORDERABLES Performing Organization Address City/[facility]/ZIP Co de Phone Number [facility] [place] [address] * (ABNORMAL) Comprehensive metabolic panel (non-fasting) (11/03/2023 7:05 AM EDT) Glucose 111 65 - 199 mg/dL [facility] Comment:Diabetes: >=200 mg/d L plus symptoms Blood Urea Nitrogen 18 8 - 18 mg/dL [facility] Creatinine 0.82 0.70 - 1.20 mg/dL [facility] Sodium 142 135 - 145 mmol/L [facility] Potassium 3.9 3.5 - 5.0 mmol/L [facility] Comment: Please note: ??Patients with WBC >100,000 may have falsely elevated Potassium levels. ??For accurate Potassium quantification in these patients send serum separator tube (gold top) for subsequent determinations. ??Contact the Clinical Chemistry Laboratory if there are any questions. Chloride 108(H) 98 - 107 mmol/L [facility] Carbon Dioxide 23 22 - 31 mmol/L [facility] Anion Gap 11 5 - 15 mmol/L [facility] Calcium 9.0 8.5 - 10.5 mg/dL [facility] Protein, Total 6.6 6.1 - 8.0 g/dL [facility] Albumin 3.9 3.2 - 5.2 g/dL [facility] Aspartate Aminotransferase 16 0 - 30 unit/L [facility] Alanine Aminotransferase 18 0 - 30 unit/L [facility] Alkaline Phosphatase 69 35 - 105 unit/L [facility] Bilirubin, Total <0.2(L) 0.2 - 1.3 mg/dL [facility] Est Glomerular Filtration Rate 90 >=60 mL/min/1. 73 m?? [facility] Comment: This patient's estimated GFR [...] urine creatinine clearance. Assignment of CKD stage 1-5 for patients with an eGFR near the transition point between stages may be based on clinical assessment of muscle mass and symptoms in addition to eGFR. Blood 11/03/2023 7:05 AM EDT 11/03/2023 7:24 AM EDT Narrative Resulting Agency Comment Spec In Lab Kavitha Rai MD CHEMISTRY ORDERABLES Performing Organization Address [facility]/ZIP Co de Phone Number [facility] [place] [address] * CEA (11/03/2023 7:05 AM EDT) Carcinoembryonic Antigen 2.8 <=3.8 ng/mL [facility] Comment: Reference range: ??(20-69 years): Non-smoker: ??less than or equal to 3.8 ng/mL Smoker: ??less than 5.5 ng/ml This result was generated using a Deepak Dequan immunoassay. ??Results obtained from other methods or manufacturers cannot be used interchangeably with this method. Blood 11/03/2023 7:05 AM EDT 11/03/2023 7:24 AM EDT Narrative Resulting Agency Comment Spec In Lab Consuelo Carrillo Isiah SNOW CHEMISTRY ORDERABLE S Performing Organization Address [facility] Co de Phone Number [facility] [place] [address] documented in this encounter Visit Diagnoses Diagnosis [...] EVERY 1 MIN PRN, Starting on Yvette 11/03/23 at 0651, Until Yvette 11/03/23 at 1508, Line Care, Flush pertains to all indwelling lines. Flush per protocol found in the job aid using the link provided on this medication record. Refer to Intravenous (IV) Job Aid: Adult Flushing & Catheter Care (5727) job aid for additional information regarding guidelines and administration., Routine Given 11/03/2023 7:10 AM EDT 20 mLs documented in this encounter Care Teams Pulp Making Plant Operator Relationship Specialty Start Date End Date Ryan Betancourt MD [address] [place] [phone] PCP - General Family Medicine 07/29/22 documented as of this encounter
--- OUTSIDE RECORDS SUMMARY | 2024-06-01 20:38 | XMS_ITS | Encounter Summary ---
Author Organization [facility] [place] [address] Care Team Providers Care Payable Representative Name Role Phone Ryan Betancourt MD Primary Care Provider [phone] Reason for Referral * Psychiatric (Routine) - Closed Specialty Diagnoses [...] EA ADDL 30 MIN Consuelo Joyce APRN [facility] [place] [address] Anna Oneill, PhD [facility] [place] [address] Referral ID Status Reason Start Date Expiration Date V isits Requested Visits Authorized [id number] Closed Consult, Test & Treat 12/15/2023 12/14/2024 1 1 Reason for Visit * Reason Comments Follow-up Encounter Details Date Type Department Care Team ([facility] st Contact Info) Description 12/15/2023 11:40 AM EDT Office Visit Hematology [place] [phone] Kavitha Rai MD [facility] [place] [address] Malignant neoplasm of overlapping sites of right breast in female, estrogen receptor negative; 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; Elevated LFTs Social History Tobacco Use Types Packs/Day Years [...] place to sleep or slept in a fdc (including now)? No 07/29/2022 Sex and Gender Information Value Date Recorded Sex Assigned at Not on file Gender Identity Not on file Sexual Orientation Not on file documented as of this encounter Last Filed Vital Signs Vital Sign Reading Time Taken Comments Blood Pressure 136/52 12/15/2023 10:49 AM EDT Pulse 65 12/15/2023 10:49 AM EDT Temperature 36.7 ??C (98.1 ??F) 12/15/2023 1 0:49 AM EDT Respiratory Rate 17 12/15/2023 10:4 9 AM EDT Oxygen Saturation 99% 12/15/2023 10: 49 AM EDT Inhaled Oxygen Concentration - - Weight 112.2 kg (247 lb 5.7 oz) 024 10:49 AM EDT Height 163.2 cm (5' 4.25) 12/15/2023 1 0:49 AM EDT Body Mass Index 42.13 12/15/2023 10:49 AM EDT documented in this encounter Progress Notes * Consuelo Joyce, FORESTRY PILOT - 12/15/2023 11:40 AM EDT Patient ID: Soy San [...] plan for every 6 weeks started 02/24/2023. 12/15/2023 On TDM1. Here for cycle #2 [...] Recent biopsy of skin c/w breast cancer ER/MO- HER+ same as her other site of [...] most 3 x per cycle Going to [place] for vacation. 09/01/2023 On [place] q 3 [...] in the shower. Subsequently called [facility] woman wellness, seen that day. 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 Bowel sounds are normal. There is no tenderness. Musculoskeletal: Normal range of motion. Extremities: no clubbing, cyanosis or edema Neurological: She is alert and oriented to person, place, and time. Gait normal. Skin: Skin is warm and dry. Taxotere nails Psychiatric: She has a normal mood and affect. Her behavior is normal. Lab Results Component Value Date WBC 5.90 12/15/2023 HGB 13.2 12/15/2023 HCT 39.8 12/15/2023 MCV 84.1 12/15/2023 PLATELET 297 12/15/2023 Lab Results Component Value Date NEUTROABS 3.25 12/15/2023 Lab Results Component Value Date NA 142 12/15/2023 NA 142 11/03/2023 K 3.5 12/15/2023 K 3.9 11/03/2023 CL 107 12/15/2023 CL 108 (H) 11/03/2023 CO2 25 12/15/2023 CO2 23 11/03/2023 BUN 13 12/15/2023 BUN 18 11/03/2023 CREATININE 0.72 12/15/2023 CREATININE 0.82 11/03/2023 GLUCOSE 149 12/15/2023 GLUCOSE 111 11/03/2023 CALCIUM 9.3 12/15/2023 CALCIUM 9.0 11/03/2023 ESTGFR 90 11/03/2023 Lab Results Component Value Date ALT 268 (H) 12/15/2023 AST 196 (H) 12/15/2023 ALKPHOS 128 (H) 12/15/2023 BILITOT 0.2 12/15/2023 ALBUMIN 3.9 12/15/2023 PROT 7.1 12/15/2023 Carcinoembryonic Antigen Date Value 12/15/2023 3.9 ng/ml (H) 11/24/2023 2.8 ng/ml 11/03/2023 2.8 ng/mL 10/13/2023 2.4 ng/mL 09/22/2023 2.8 ng/mL 08/11/2023 2.3 ng/mL 07/21/2023 2.4 ng/mL CA 15-3 (unit/mL) Date Value 12/15/2023 32 (H) 11/24/2023 32 (H) 11/03/2023 [...] [facility] New [facility] findings concerning for recurrent local disease however last imaging 06/2023 looks good with sustained response. Skin biopsy c/w local recurrence switch to TDM-1 today. Breast Cancer: TDM-1 C2D1 today - LFTs elevated: AST and ALT grade 3, reviewed with Dr. Rai who was able to join visit. Dr. Rai recommends dose reduce of TDM1 from 3.6 mg/kg to 3 mg/kg. Dose reduction in [place]. Discussed further with pharmacy and team decided to hold TDM1 until resolution to grade 3. Will schedule for nextweek and monitor labs. Can do out patient the day before to see if there is resolution before coming to [facility]. -CEA is elevated today will monitor with next cycle, CA 15-3 stable Pending referral, re-sent today: Dr. Oneill cognitive clinic 3. Continue denosumab q6w, will hold today for upcoming dental work with likely need tooth pulled 4. Primary breast surgical consultation: Not recommended at this time per most recent tumor board discussion. Dr. Rai reviewed with patient today RTC in 1 week with labs, MD/SCIENTIFIC DATABASE CURATOR, and infusion Total time spent: 40 minutes with > 50% spend in discussion of above Future Appointments Date Time Provider Department Center 12/15/2023 2:00 PM [facility] INFUSION THERAPY [facility] [address] [place] [address] 01/05/2024 10:30 AM ACCESS ROOM [address] 01/05/2024 11:30 AM Consuelo Joyce APRN [facility] HEM ONC [facility] 01/05/2024 1:30 PM [facility] INFUSION THERAPY [facility] [address] [place] [address] 01/26/2024 10:30 AM ACCESS ROOM [facility] [address] [place] [address] 01/26/2024 11:30 AM Consuelo Joyce APRN [facility] HEM ONC [facility] 01/26/2024 1:30 PM [facility] INFUSION THERAPY [facility] [address] [place] [address] 02/16/2024 10:45 AM ACCESS ROOM [address] 02/16/2024 11:40 AM Kavitha Rai MD [facility] HEM [facility]C [facility] 02/16/2024 1:30 PM [facility] INFUSION THERAPY [address] documented in this encounter Plan of Treatment Upcoming Encounters Date Type Department Care Team (Late st Contact Info) Description 06/14/2024 8:00 AM EST Hospital Encounter [place] [phone] Consuelo Joyce APRN [facility] [place] [address] 06/14/2024 8:45 AM EST Appointment XRay at [address] [place] [address] Kavitha Rai MD [facility] [place] [address] 06/14/2024 9:45 AM EST Appointment Hematology and Oncology at [place] [phone] 06/14/2024 11:00 AM EST Appointment Nuclear Medicine at [place] [phone] Consuelo Joyce [facility] [place] [address] 06/14/2024 1:00 PM EST Office Visit Hematology [place] [address] Kavitha Rai MD [facility] [place] [address] 06/14/2024 2:30 PM EST Appointment Hematology [place] [address] 07/05/2024 10:30 AM EDT Appointment Hematology [place] [address] 07/05/2024 11:30 AM EDT Office Visit [place]ematology [place] [address] Consuelo Joyce [facility] [place] [address] 07/05/2024 1:00 PM EDT Appointment Hematology [place] [address] 08/16/2024 9:20 AM EDT Office [place] [address] Luz Jose, OD [facility] [place] [address] 01/14/2025 8:30 AM EDT Office Visit Psychiatry [place] [address] Anna Oneill, PhD [facility] [place] [address] Scheduled Orders Name Type Priority Associated Diagnoses Orde r Schedule CBC (with Diff) Lab STAT Malignant neoplasm of overlapping sites of right breast in female, estrogen receptor negative 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 Elevated LFTs Once a week for 6 Occurrences starting 12/15/2023 until 12/14/2024 Comprehensive metabolic panel Non-fasting Lab Routine Malignant neoplasm of overlapping sites of right breast in female, estrogen receptor negative 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 Elevated LFTs Once a week for 6 Occurrences starting 12/15/2023 until 12/14/2024 Scheduled Referrals Name Type Priority Associated Diagnoses Orde r Schedule Referral to [facility] Psychiatry (Cancer Center Patients Only) Outpatient Referral Routine Malignant neoplasm of overlapping sites of right breast in female, estrogen receptor negative 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 Ordered: 12/15/2023 documented as of this encounter Visit Diagnoses Diagnosis Malignant neoplasm of overlapping sites of right breast in female, estrogen receptor negative 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 Elevated LFTs Other abnormal blood chemistry documented in this encounter Care Teams Payable Representative Relationship Specialty Start Date End Date Ryan Betancourt MD [address] [place] [phone] PCP - General Family Medicine 07/29/22 documented as of this encounter
--- OUTSIDE RECORDS SUMMARY | 2024-06-01 20:38 | XMS_ITS | Encounter Summary ---
[place] [address] Care Team Providers Care Cold Rolling Coordinator Name Role Phone Ryan Betancourt MD Primary Care Provider [phone] Reason for Visit * Treatment/Therapy Plan Authorization (Routine) - Authorized Specialty Diagnoses / Procedures Referred By Contdede t Referred To Contact Hematology and Oncology Diagnoses Malignant neoplasm of overlapping sites of right breast in female, estrogen receptor negative Consuelo Joyce APRN [facility] [place] [address] [facility] [address] [place] [address] Referral ID Status Reason Start Date Expiration Date V isits Requested Visits Authorized [id number] Authorized 11/03/2023 2024 99 108 Encounter Details Date Type Department Care Team (Latest Contact Info) Description 11/24/2023 8:34 AM EDT Hospital Encounter Hematology [place] [address] Malignant neoplasm of overlapping sites [...] times daily. 30 g 08/25/2022 lidocaine-prilocaine (EMLA) CreamIndications:Malig nant neoplasm of overlapping sites of right [...] Progress Notes * Fabi Gilbert RN - 11/24/2023 10:06 AM EDT Patient Name: Soy San Patient Age: 43 y.o. Birthdate: 1980 Admit date: 11/24/2023 Attending Physician: No att. providers found Access visit. See MAR and/or flowsheet. documented in this encounter Plan of Treatment Upcoming Encounters Date Type Department Care Team (Late st Contact Info) Description 06/14/2024 8:00 AM EST Hospital [place] [phone] Consuelo Joyce APRN [facility] [place] [address] 06/14/2024 8:45 AM EST Appointment XRay at [address] [place] [phone] Kavitha Rai MD [facility] [address] [place] [address] 06/14/2024 9:45 AM EST Appointment Hematology and Oncology at [place] [address] 06/14/2024 11:00 AM EST Appointment Nuclear Medicine at [address] Consuelo Joyce APRN [facility] [place] [address] 06/14/2024 1:00 PM EST Office Visit Hematology and Oncology at [address] Kavitha Rai MD [facility] [place] [address] 06/14/2024 2:30 PM EST Appointment Hematology and Oncology at [address] 07/05/2024 10:30 AM EDT Appointment Hematology and Oncology at [place] [address] 07/05/2024 11:30 AM EDT Office Visit Hematology and Oncology at [place] [phone] Consuelo Joyce [facility] [place] [address] 07/05/2024 1:00 PM EDT Appointment Hematology and Oncology at [place] [phone] 08/16/2024 9:20 AM EDT Office Visit Ophthalmology at [place] [phone] Luz Jose OD [facility] [place] [address] 01/14/2025 8:30 AM EDT Office [facility] [place] [phone] Anna Oneill, PhD [facility] [place] [address] Scheduled Orders Name Type Priority Associated Diagnoses Orde r Schedule CEA Lab Routine Malignant neoplasm of overlapping sites of right breast in female, estrogen receptor negative Every 3 weeks for 15 Occurrences starting 11/21/2023 until 11/20/2024, 1 completed documented as of this encounter Procedures Procedure Name Priority Date/Time Associated Diagnosis Comments CANCER ANTIGEN 15-3 STAT 11/24/2023 1 0:06 AM EDT Malignant neoplasm of overlapping sites of right breast in female, estrogen receptor negative CBC (WITH DIFF) STAT 11/24/2023 10:06 AM EDT Malignant neoplasm of overlapping sites of right breast in female, estrogen receptor negative CEA Routine 11/24/2023 10:06 AM EDT Malignant neoplasm of overlapping sites of right breast in female, estrogen receptor negative COMPREHENSIVE METABOLIC PANEL STAT 11/24/2023 10:06 AM EDT Malignant neoplasm of overlapping sites of right breast in female, estrogen receptor negative documented in this encounter Results * (ABNORMAL) Cancer antigen 15-3 (11/24/2023 10:06 AM EDT) CA 15-3 32(H) <=25 unit/mL 11/24/2023 6:40 PM EDT [facility] Comment:This result was gene rated using a Deepak Dequan immunoassay. Results obtained from other methods or manufacturers cannot be used interchangeably with this method. Blood VENOUS BLOOD SPECIMEN / Unknown Mediport Line / Unknown 11/24/2023 10:06 AM EDT 11/24/2023 10:17 AM EDT Consuelo Joyce [employer] CHEMISTRY ORDERABLE S [facility] [place] [address] * (ABNORMAL) Comprehensive metabolic panel (11/24/2023 10:06 AM EDT) Glucose 139 65 - 199 mg/dL 11/24/2023 11:[facility] Comment:Glucose Concentratio n >=200 mg/dL plus symptoms is consistent with Diabetes Mellitus. Blood Urea Nitrogen 10 8 - 18 mg/dL 11/24/2023 11:04 AM [facility] Creatinine 0.80 0.70 - 1.20 mg/dL 11/24/2023 11:04 AM [facility] Sodium 143 135 - 145 mMol/L 11/24/2023 11:04 AM [facility] Potassium 3.7 3.5 - 5.0 mMol/L 11/24/2023 11:04 AM [facility] Chloride 107 98 - 107 mMol/L 11/24/2023 11:04 AM [facility] Carbon Dioxide 23 22 - 31 mMol/L 11/24/2023 11:04 AM [facility] Anion Gap 13 5 - 15 mMol/L 11/24/2023 11:04 AM [facility] Calcium 9.1 8.5 - 10.5 mg/dL 11/24/2023 11:04 AM [facility] Protein, Total 6.8 6.1 - 8.0 g/dL 11/24/2023 11:04 AM [facility] Albumin 4.0 3.2 - 5.2 g/dL 11/24/2023 11:04 AM [facility] Aspartate Aminotransferase 51(H) <=30 unit/L 11/24/2023 11:04 AM [facility] Alanine Aminotransferase 98(H) 0 - 30 unit/L 11/24/2023 11:04 AM [facility] Alkaline Phosphatase 91 35 - 105 unit/L 11/24/2023 11:04 AM EDT [facility] Bilirubin, Total 0.4 <=1.3 mg/dL 11/24/2023 11:04 AM EDT [facility] Est Glomerular Filtration Rate - Female 93 mL/min/1. 73 m?? 11/24/2023 11:04 AM EDT [facility] Comment: This patient's estimated [...] Calculator [employer] Fasting Status No 11/24/2023 11:04 AM EDT [facility] Blood VENOUS BLOOD SPECIMEN / Unknown Mediport Line / Unknown 11/24/2023 10:06 AM EDT 11/24/2023 10:17 AM EDT Consuelo Joyce [employer] CHEMISTRY ORDERABLE S [facility] [place] [address] * (ABNORMAL) CBC (with Diff) (11/24/2023 10:06 AM EDT) White Blood Cell 5.84 4.00 - 9.50 x10(3)/mc L 11/24/2023 10:40 AM EDT [facility] Red Blood Cell 4.95 4.00 - 5.21 x10(6)/mc L 11/24/2023 10:40 AM EDT [facility] Hemoglobin 13.8 11.7 - 15.5 g/dL 11/24/2023 10:40 AM EDT [facility] Hematocrit 41.5 35.7 - 45.8 % 11/24/2023 10:40 AM [facility] Mean Cell Volume 83.8 82.6 - 94.4 fL 11/24/2023 10:40 AM [facility] Mean Cell Hemoglobin 27.9 27.1 - 32.0 pg 11/24/2023 10:40 AM [facility] Mean Cell Hemoglobin Concentration 33.3 31.7 - 35.0 g/dL 11/24/2023 10:40 AM [facility] Platelet 239 145 - 357 x10(3)/mc L 11/24/2023 10:40 AM [facility] Mean Platelet Volume 10.4 7.6 - 12.9 fL 11/24/2023 10:40 AM [facility] RDW Standard Deviation 41.4 37.0 - 46.0 fL 11/24/2023 10:40 AM [facility] RDW coefficient of variation 13.6 11.5 - 14.1 % 11/24/2023 10:40 AM [facility] NRBC% auto 0.0 % 11/24/2023 10:40 AM [facility] NRBC Absolute 0.00 0.00 - 0.00 x10(3)/mc L 11/24/2023 10:40 AM [facility] Neutrophil % 61.4 % 11/24/2023 10:40 AM [facility] Neutrophil Absolute (ANC) - Automated 3.58 1.70 - 6.10 x10(3)/mc L 11/24/2023 10:40 AM [facility] Lymph % 30.1 % 11/24/2023 10:40 AM [facility] Lymph Absolute 1.76 0.90 - 3.20 x10(3)/mc L 11/24/2023 10:40 AM [facility] Monocyte % 4.1 % 11/24/2023 10:40 AM [facility] Monocyte Absolute 0.24(L) 0.30 - 0.90 x10(3)/mc L 11/24/2023 10:40 AM EDT [facility] Eos % 3.9 % 11/24/2023 10:40 AM EDT [facility] Eos Absolute 0.23 0.00 - 0.40 x10(3)/mc L 11/24/2023 10:40 AM EDT [facility] Basophil % 0.3 % 11/24/2023 10:40 AM EDT [facility] Baso Absolute 0.02 0.00 - 0.10 x10(3)/mc L 11/24/2023 10:40 AM EDT [facility] Immature Gran % 0.2 % 10:40 AM EDT [facility] Immature Gran Absolute 0.01 0.00 - 0.04 x10(3)/mc L 11/24/2023 10:40 AM EDT [facility] Blood VENOUS BLOOD SPECIMEN / Unknown Mediport Line / Unknown 11/24/2023 10:06 AM EDT 11/24/2023 10:17 AM EDT Consuelo Joyce [employer] HEMATOLOGY ORDERABL ES [facility] [place] [address] * CEA (11/24/2023 10:06 AM EDT) Carcinoembryonic Antigen 2.8 <=3.8 ng/ml 11/24/2023 6:40 PM EDT [facility] Comment: Some smokers may have elevated CEA, generally < 5.5 ng/mL. This result was generated using a Deepak Dequan immunoassay. ??Results obtained from other methods or manufacturers cannot be used interchangeably with this method. Blood VENOUS BLOOD SPECIMEN / Unknown Mediport Line / Unknown 11/24/2023 10:06 AM EDT 11/24/2023 10:17 AM EDT Consuelo Joyce [employer] CHEMISTRY ORDERABLE S [facility] [address] [place] [address] documented in this encounter Visit Diagnoses Diagnosis [...] EVERY 1 MIN PRN, Starting on Yvette 11/24/23 at 0925, Until Tue11/25/23 at 0435, Line Care, Flush pertains to all indwelling lines. Flush per protocol found in the job aid using the link provided on this medication record. Refer to Intravenous (IV) Job Aid: Adult Flushing & Catheter Care (4605) job aid for additional information regarding guidelines and administration., Routine Given 11/24/2023 10:05 AM EDT 20 mLs documented in this encounter Care Teams Cold Rolling Coordinator Relationship Specialty Start Date End Date Ryan Betancourt MD [address] [place] [phone] PCP - General Family Medicine 07/29/22 documented as of this encounter
--- OUTSIDE RECORDS SUMMARY | 2024-06-01 20:38 | XMS_ITS | Encounter Summary ---
Author Organization Formerly [facility] Address [facility] [place] [address] Care Team Providers Care Lining Vamper Name Role Phone Ryan Betancourt MD Primary Care Provider [phone] Encounter Details Date Type Department Care Team (Latest Contact Info) Description 11/24/2023 Travel Social History Tobacco Use Types Packs/Day [...] place to sleep or slept in a penitentiary (including now)? No 07/29/2022 Sex and Gender Information Value Date Recorded Sex Assigned at Not on file Gender Identity Not on file Sexual Orientation Not on file documented as of this encounter Plan of Treatment Upcoming Encounters Date Type Department Care Team (Late st Contact Info) Description 06/14/2024 8:00 AM EST Hospital Encounter [place] [address] Consuelo Joyce APRN [facility] [place] [address] 06/14/2024 8:45 AM EST Appointment XRay at [address] [place] [address] Kavitha Rai MD [facility] DR [place] [address] 06/14/2024 9:45 AM EST Appointment Hematology [place] [address] 06/14/2024 11:00 AM EST Appointment [place] [address] Consuelo Joyce APRN [facility] [place] [address] 06/14/2024 1:00 PM EST Office Visit Hematology [place] [address] Kavitha Rai MD [facility] [place] [address] 06/14/2024 2:30 PM EST Appointment Hematology [place] [address] 07/05/2024 10:30 AM EDT Appointment Hematology and Oncology at [place] [phone] 07/05/2024 11:30 AM EDT Office Visit Hematology and Oncology at [place] [phone] Consuelo Joyce APRN [facility] [place] [address] 07/05/2024 1:00 PM EDT Appointment Hematology and Oncology at [place] [address] 08/16/2024 9:20 AM EDT Office Visit Ophthalmology at [place] [phone] Luz Jose, OD [facility] [place] [address] 01/14/2025 8:30 AM EDT Office Visit Psychiatry and Behavioral Health at [place] [address] Anna Oneill, PhD [facility] [place] [address] documented as of this encounter Visit Diagnoses Not on filedocumented in this encounter Care Teams Lining Vamper Relationship Specialty Start Date End Date Ryan Betancourt MD [address] [place] [phone] PCP - General Family Medicine 07/29/22 documented as of this encounter
--- OUTSIDE RECORDS SUMMARY | 2024-06-01 20:38 | XMS_ITS | Encounter Summary ---
Author Organization [facility]ly [facility] Address [facility] [place] [address] Care Team Providers Care Doctor Of Podiatric Medicine Name Role Phone Ryan Betancourt MD Primary Care Provider [phone] Encounter Details Date Type Department Care Team (Late st Contact Info) Description 11/03/2023 Orders Only Hematology [place] [address] Kavitha Rai MD [facility] DR HEMATOLOGY [place] [address] Social History Tobacco Use Types Packs/Day Years [...] AM EST Hospital Encounter [place] [address] [facility] [place] [address] 06/14/2024 8:45 AM EST Appointment XRay at [address] [place] [address] Kavitha Rai MD [facility] DR HEMATOLOGY [place] [address] 06/14/2024 9:45 AM EST Appointment Hematology [place] [address] 06/14/2024 11:00 AM EST Appointment [place] [address] Consuelo Joyce [facility] [place] [address] 06/14/2024 1:00 PM EST Office Visit [place]ematology [place] [address] Kavitha Rai MD [facility] DR [place] [address] 06/14/2024 2:30 PM EST Appointment Hematology and Oncology at [place] [phone] 07/05/2024 10:30 AM EDT Appointment Hematology and Oncology at [place] [address] 07/05/2024 11:30 AM EDT Office Visit Hematology and Oncology at [place] [phone] Consuelo Joyce APRN [facility] [place] [address] 07/05/2024 1:00 PM EDT Appointment Hematology and Oncology at [place] [phone] 08/16/2024 9:20 AM EDT Office Visit Ophthalmology at [place] [address] Luz Jose, [facility] [place] [address] 01/14/2025 8:30 AM EDT Office Visit Psychiatry and Behavioral Health at [place] [phone] Anna Oneill, PhD [facility] [place] [address] documented as of this encounter Visit Diagnoses Not on filedocumented in this encounter Care Teams Doctor Of Podiatric Medicine Relationship Specialty Start Date End Date Ryan Betancourt MD [address] [place] [phone] PCP - General Family Medicine 07/29/22 documented as of this encounter
--- OUTSIDE RECORDS SUMMARY | 2024-06-01 20:38 | XMS_ITS | Encounter Summary ---
Author Organization [facility] Address [facility] [place] [address] Care Team Providers Care Contact Center Director Name Role Phone Ryan Betancourt MD Primary Care Provider [phone] Reason for Visit * Reason Comments Follow-up Encounter Details Date Type Department Care Team ([facility] st Contact Info) Description 11/03/2023 8:00 AM EDT Office Visit Hematology [place] [phone] Consuelo Joyce APRN [facility] [place] [address] Malignant neoplasm of overlapping sites of right breast in female, estrogen receptor negative; Carcinoma of breast metastatic to bone, unspecified laterality; Medication management; HER2-positive carcinoma of breast Social History Tobacco [...] place to sleep or slept in a half-way (including now)? No 07/29/2022 Sex and Gender Information Value Date Recorded Sex Assigned at Not on file Gender Identity Not on file Sexual Orientation Not on file documented as of this encounter Last Filed Vital Signs Vital Sign Reading Time Taken Comments Blood Pressure 141/86 11/03/2023 8:02 AM EDT Pulse 68 11/03/2023 8:02 AM EDT Temperature 37 ??C (98.6 ??F) 11/03/2023 8:02 AM EDT Respiratory Rate 16 11/03/2023 8:02 AM EDT Oxygen Saturation 97% 11/03/2023 8:02 AM EDT Inhaled Oxygen Concentration - - Weight 112.1 kg (247 lb 2.2 oz) 11/03/2023 8:10 AM EDT Height 162.5 cm (5' 3.98) 11/03/2023 8:02 AM ED T Body Mass Index 42.45 11/03/2023 8:02 AM EDT documented in this encounter Progress Notes * Consuelo Joyce, EDY - 11/03/2023 8:00 AM EDT Patient ID: Soy San is a 42 y.o. 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 She is s/p THP x6 with excellent clinical response and is on H and P alone since 12/23/2022. She is on xgeva with a plan for every 6 weeks started 02/24/2023. 11/03/2023 Oh Phesgo q 3 wks, xgeva q6 wks Recent biopsy of skin c/w breast cancer ER/UT- HER+ same as her other site of [...] most 3 x per cycle Going to [place] for vacation. 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 PET CT [...] to move in the summertime Hot flashes: cohosh Saw dentist and no invasive dental work [...] Pathology: PD IDC + LVI ER negative UT negative Her 2 alexa amplified HER2 TO [...] 02/24/2023; xgeva started 04/28/2023: switch to phesgo GENETICS: Lety 07/2022: negative PMH: None PSH: tubal ligation 15 years ago MEDS: none ALL: none SH/FH Non smoker Very little ETOH 1 biological child, 22 (autistic and lives in [facility]) OCPs x many years (@ 10 years total ) and depot shot ( @ ) PGA: Breast Cancer: unknown exactly but thinks older Father : MM/amyloid MU: gastric 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 Wt Readings from Last 3 Encounters: 10/13/23 111.9 kg (246 lb 11.1 oz) 09/22/23 111.2 kg (245 lb 2.4 oz) 09/01/23 109.6 kg (241 lb 10 oz) Physical exam Constitutional: She is oriented to person, place, and time. She appears well- developed and well-nourished. No distress. Head: Normocephalic. Eyes: Conjunctivae are normal. Pupils are equal, round, and reactive to light. Neck: Normal range of motion. Cardiovascular: Normal rate, regular rhythm and normal heart sounds. Pulmonary/Chest: Effort normal and breath sounds normal. Right breast: No discrete mass or axillary node. 2 areas of telangiectasia/redness on upper part of breast that have merged ( see picture) And two new areas of redness @3 mm at 10oc and 4 oc ( picture taken) Abdominal: Soft. Bowel sounds are normal. There is no tenderness. Musculoskeletal: Normal range of motion. Extremities: no clubbing, cyanosis or edema Neurological: She is alert and oriented to person, place, and time. Gait normal. Skin: Skin is warm and dry. Taxotere nails Psychiatric: She has a normal mood and affect. Her behavior is normal. Lab Results Component Value Date WBC 6.8 10/13/2023 HGB 13.3 10/13/2023 HCT 39.2 10/13/2023 MCV 83.1 10/13/2023 PLATELET 242 10/13/2023 Lab Results Component Value Date NEUTROABS 4.55 10/13/2023 Lab Results Component Value Date NA 139 10/13/2023 K 3.4 (L) 10/13/2023 CL 106 10/13/2023 CO2 23 10/13/2023 BUN 10 10/13/2023 CREATININE 0.73 10/13/2023 GLUCOSE 120 10/13/2023 CALCIUM 9.0 10/13/2023 ESTGFR 104 10/13/2023 Lab Results Component Value Date ALT 22 10/13/2023 AST 12 10/13/2023 ALKPHOS 67 10/13/2023 BILITOT 0.3 10/13/2023 ALBUMIN 4.0 10/13/2023 PROT 6.7 10/13/2023 CEA (ng/mL) Date Value 10/13/2023 2.4 09/22/2023 2.8 08/11/2023 2.3 07/21/2023 2.4 03/17/2023 2.1 CA 15-3 (unit/mL) Date Value 10/13/2023 28 (H) 09/22/2023 28 (H) 09/01/2023 30 (H) 08/11/2023 28 (H) 07/21/2023 32 (H) A/P: Constant Soo Theodore San is a 42 y.o. female with [...] sustained response. Skin biopsy c/w local recurrence reviewed next steps with Dr. Rai, favor TDM1 to start in 3 weeks. Reviewed with patient who agrees to plan. [facility] Breast Cancer: on H&P as Phesgo. OK for Phesgo today - Excellent clinical response with decreasing markers and initially resolved breast mass. Now progressive breast changes c/w recurrence. EOD: CT CAP, BS and MRI of breasts all stable, skin biopsy c/w recurrence Echo stable LVEF 62% - TDM1 order placed, will set up chemo teach before C1. 2. 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 However will order MRI of head, neg for malignancy 3. Continue denosumab q6w -order signed for today. Some confusion over q12 or 4 week regiment. Prefer q4 week however will sync up with phesgo and make it q6 week. 4. Primary breast surgical consultation: Not recommended ( breast tumor board 02/22/2023 and surgeon), will reach out again for new discussion with local recurrence. RTC 3 weeks for MD/CHILD DEVELOPMENT PROFESSOR visit , C1 TDM1, labs Total time spent: 40 minutes with > 50% spend in discussion of above Future Appointments Date Time Provider Department Center 11/03/2023 7:00 AM ACCESS ROOM [facility] INF [address] [place] [address] 11/03/2023 8:00 AM Consuelo Joyce APRN [facility] HEM ONC [facility] 11/03/2023 9:30 AM LEB INFUSION THERAPY [facility] [address] [place] [address] 11/24/2023 10:45 AM ACCESS ROOM [facility] [address] [place] [address] 11/24/2023 11:40 AM Kavitha Rai MD [facility] HEM ONC [facility] 11/24/2023 2:00 PM LEB INFUSION THERAPY [facility] [address] [place] [address] 12/15/2023 10:45 AM ACCESS ROOM [facility] [address] [place] [address] 12/15/2023 11:40 AM Kavitha Rai MD [facility] HEM ONC [facility] 12/15/2023 1:30 PM LEB INFUSION THERAPY [facility] [address] [place] [address] 01/05/2024 10:30 AM ACCESS ROOM [facility] [address] [place] [address] 01/05/2024 11:30 AM Consuelo Joyce APRN [facility] HEM ONC [facility] 01/05/2024 1:30 PM LEB INFUSION THERAPY [facility] [address] [place] [address] 01/26/2024 10:30 AM ACCESS ROOM [facility] [address] [place] [address] 01/26/2024 11:30 AM Consuelo Joyce APRN [facility] HEM ONC [facility] 01/26/2024 1:30 PM LEB INFUSION THERAPY [facility] [address] [place] [address] 02/16/2024 10:45 AM ACCESS ROOM [facility] [address] [place] [address] 02/16/2024 11:40 AM Kavitha Rai MD [facility] HEM ONC [facility] 02/16/2024 1:30 PM LEB INFUSION THERAPY [address] documented in this encounter Plan of Treatment Upcoming Encounters Date Type Department Care Team (Late st Contact Info) Description 06/14/2024 8:00 AM EST Hospital Encounter [place] [phone] Consuelo Joyce APRN [facility] [place] [address] 06/14/2024 8:45 AM EST Appointment XRay at [address] [place] [phone] Kavitha Rai MD [facility] [place] [address] 06/14/2024 9:45 AM EST Appointment Hematology [place] [address] 06/14/2024 11:00 AM EST Appointment Nuclear Medicine at [place] [phone] Consuelo Joyce [facility] [place] [address] 06/14/2024 1:00 PM EST Office Visit Hematology [place] [address] Kavitha Rai MD [facility] [address] [place] [address] 06/14/2024 2:30 PM EST Appointment Hematology and Oncology at [place] [phone] 07/05/2024 10:30 AM EDT Appointment Hematology [place] [address] 07/05/2024 11:30 AM EDT Office Visit Hematology [place] [address] Consuelo Joyce, [facility] [place] [address] 07/05/2024 1:00 PM EDT Appointment Hematology [place] [address] 08/16/2024 9:20 AM EDT Office [place] [phone] Luz Jose OD [facility] [place] [address] 01/14/2025 8:30 AM EDT Office Visit Psychiatry [place] [address] Anna Oneill, PhD [facility] [place] [address] documented as of this encounter Visit Diagnoses Diagnosis Malignant neoplasm of overlapping sites of right breast in female, estrogen receptor negative Carcinoma of breast metastatic to bone, unspecified laterality Medication management Encounter for long-term (current) use of other medications HER2-positive carcinoma of breast documented in this encounter Care Teams Contact Center Director Relationship Specialty Start Date End Date Ryan Betancourt MD [address] [place] [phone] PCP - General Family Medicine 07/29/22 documented as of this encounter
--- OUTSIDE RECORDS SUMMARY | 2024-06-01 20:38 | XMS_ITS | Encounter Summary ---
[place] [address] Care Team Providers Care Electrical Software Engineer Name Role Phone Ryan Betancourt MD Primary Care Provider [phone] Reason for Visit * Treatment/Therapy Plan Authorization (Routine) - Authorized Specialty Diagnoses / Procedures Referred By Contac t Referred To Contact Diagnoses Malignant neoplasm of overlapping sites of right breast in female, estrogen receptor negative Procedures TC DENOSUMAB, 1MG, INJECTION SacksConsuelo APRN [facility] [place] [address] [facility] Hem Onc [address] [place] [address] Referral ID Status Reason Start Date Expiration Date V isits Requested Visits Authorized [id number] Authorized 11/01/2023 10/31/2024 1 102 Encounter Details Date Type Department Care Team (Latest Contact Info) Description 11/03/2023 6:47 AM EDT - 11/03/2023 11:59 PM EDT Hospital Encounter [place]ematology [place] [address] Malignant neoplasm of overlapping sites of right breast in female, estrogen receptor negative Discharge Disposition: Home Social History Tobacco Use Types Packs/Day Years Used Date Smoking Tobacco: Former Cigarettes 0.3 1 1 99 - 1996 Smokeless Tobacco: Former Alcohol Use [...] Progress Notes * Serenity Cespedes RN - 11/03/2023 11:20 AM EDT Patient Name: Soy San Patient Age: 43 y.o. Birthdate: 1980 Admit date: 11/03/2023 Attending Physician: Alexia att. providers found TIME TREATMENT STARTED: 943 TIME TREATMENT ENDED: 1045 Soy San, 43 y.o. female with diagnosis of 1. Malignant neoplasm of overlapping sites of right breast in female, estrogen receptor negative is here for chemotherapy injection of Phesgo and Xgeva. PROTOCOL: NA CYCLE: 10 DAY: 1 S: Pt. offers no complaints at this time. Chemo checks performed per policy. Reviewed plan of care for Infusion visit, patient verbalized understanding of plan as outlined. Observed for 15 min after Phesgo injection. Patient discharged to home O: Patient's Chemotherapy orders independently verified for correct drug name, route and dosage perpatient's height, weight and BSA by Serenity Cespedes, RN/pharmacy RN and Pharmacist. REACTIONS (DESCRIPTION, TIME, INTERVENTION AND EFFECTIVENESS) None noted. A: Pt. Tolerated treatment well. Soy Soo Theodore Mena confirms that all questions and issues have been addressed. Fluid intake, exercise, watching for a fever and handwashing discussed with patient. P: Return to clinic per routine. documented in this encounter Plan of Treatment Upcoming Encounters Date Type Department Care Team (Late st Contact Info) Description 06/14/2024 8:00 AM EST Hospital Encounter [place] [address] Consuelo Joyce APRN [facility] [place] [address] 06/14/2024 8:45 AM EST Appointment XRay at [address] [place] [phone] Kavitha Rai MD [facility] HEMATOLOGY [place] [address] 06/14/2024 9:45 AM EST Appointment Hematology [place] [address] 06/14/2024 11:00 AM EST Appointment [place] [address] Consuelo Joyce [facility] [place] [address] 06/14/2024 1:00 PM EST Office Visit [place]ology [place] [address] Kavitha Rai MD [facility] HEMATOLOGY [place] [address] 06/14/2024 2:30 PM EST Appointment Hematology [place] [address] 07/05/2024 10:30 AM EDT Appointment Hematology [place] [address] 07/05/2024 11:30 AM EDT Office Visit [place] [phone] Consuelo Joyce APRN [facility] [place] [address] 07/05/2024 1:00 PM EDT Appointment Hematology [place] [phone] 08/16/2024 9:20 AM EDT Office Visit Ophthalmology at [place] [phone] Luz Jose, [facility] [place] [address] 01/14/2025 8:30 AM EDT Office Visit Psychiatry and Behavioral Health at [place] [phone] Anna Oneill, PhD [facility] [place] [address] documented as of this encounter Results * (ABNORMAL) Cancer antigen 15-3 (11/03/2023 7:05 AM EDT) CA 15-3 33(H) <=25 unit/mL [facility] Comment: This result was generated using a Deepak Dequan immunoassay. ??Results obtained from other methods or manufacturers cannot be used interchangeably with this method. Blood 11/03/2023 7:05 AM EDT 11/03/2023 7:24 AM EDT Narrative Resulting Agency Comment Spec In Lab Kavitha Rai MD CHEMISTRY ORDERABLES [facility] [place] [address] * (ABNORMAL) Comprehensive metabolic panel (non-fasting) (11/03/2023 7:05 AM EDT) Glucose 111 65 - 199 mg/dL [facility] Comment:Diabetes: >=200 mg/d L plus symptoms Blood Urea Nitrogen 18 8 - 18 mg/dL [facility] Creatinine 0.82 0.70 - 1.20 mg/dL [facility] Sodium 142 135 - 145 mmol/L [facility] Potassium 3.9 3.5 - 5.0 mmol/L [facility] Comment: Please note: ??Patients with WBC >100,000 may have falsely elevated Potassium levels. ??For accurate Potassium quantification in these patients send serum separator tube (gold top) for subsequent determinations. ??Contact the Clinical Chemistry Laboratory if there are any questions. Chloride 108(H) 98 - 107 mmol/L [facility] Carbon Dioxide 23 22 - 31 mmol/L [facility] Anion Gap 11 5 - 15 mmol/L [facility] Calcium 9.0 8.5 - 10.5 mg/dL [facility] Protein, Total 6.6 6.1 - 8.0 g/dL [facility] Albumin 3.9 3.2 - 5.2 g/dL [facility] Aspartate Aminotransferase 16 0 - 30 unit/L [facility] Alanine Aminotransferase 18 0 - 30 unit/L [facility] Alkaline Phosphatase 69 35 - 105 unit/L [facility] Bilirubin, Total <0.2(L) 0.2 - 1.3 mg/dL [facility] Est Glomerular Filtration Rate 90 >=60 mL/min/1. 73 m?? [facility] Comment: This patient's estimated [...] In Lab Kavitha Rai MD CHEMISTRY ORDERABLES [facility] [place] [address] documented in this encounter Visit Diagnoses Diagnosis Malignant neoplasm of overlapping sites of right breast in female, estrogen receptor negative documented in this encounter Administered Medications Inactive Administered Medications - up to 3 most recent administrations Medication Order MAR Action Action Date Dose Rate Site calcium carbonate (TUMS) chewable tablet 500 mg 500 mg, Oral, ONCE, 1 dose, On Yvette 11/03/23 at 0945, Routine Given 11/03/2023 10:08 AM EDT 500 mg denosumab (Xgeva) (120 mg/1.7 mL) subcutaneous injection 120 mg 120 mg, Subcutaneous, ONCE, 1 dose, On Yvette 11/03/23 at 0945, - Bring to room temperature 15-30 minutes before administration. - Call provider for corrected calcium less than 8.5 mg/dL or CrCl less than 30 mL/min., This agent is restricted to outpatient use. Is this drug being given as an outpatient? Yes Given 11/03/2023 10:08 AM EDT 120 mg Right Arm PERTuzumab, TRASTuzumab and hyaluronidase-zzxf (Phesgo) (600 mg-600 mg-20,000 units per 10 mL) subcutaneous injection 1,200 mg 1,200 mg, Subcutaneous, Administer over 5 Minutes, ONCE, 1 dose, On Yvette 11/03/23 at 1045, Observe patients for infusion-related reactions for a minimum of 15 minutes after each maintenance dose of PERTuzumab, TRASTuzumab, and hyaluronidase-zzxf. Alternate injection sites between left and right THIGHS only. Dosing of Phesgo (PERTuzumab, TRASTuzumab and hyaluronidase-zzxf) is based off of combination of PERTuzumab AND TRASTuzumab components (in mg). Phesgo 1,200 mg = PERTuzumab 600 mg + TRASTuzumab 600 mg in a 10 mL dose., Routine, This agent is restricted to outpatient use. Is this drug being given as an outpatient? Yes Given 11/03/2023 10:20 AM EDT 1,200 mg 20-Other (document in comment section) documented in this encounter Care Teams Electrical Software Engineer Relationship Specialty Start Date End Date Ryan Betancourt MD [address] [place] [phone] PCP - General Family Medicine 07/29/22 documented as of this encounter
--- OUTSIDE RECORDS SUMMARY | 2024-06-01 20:38 | XMS_ITS | Encounter Summary ---
Author Organization [facility] Address [facility] [place] [address] Care Team Providers Care Planning Associate Name Role Phone Ryan Betancourt MD Primary Care Provider [phone] Encounter Details Date Type Department Care Team (Latest Contact Info) Description 11/07/2023 2:41 PM EDT - 11/07/2023 11:59 PM EDT Hospital En[place] [phone] Susana Estrada MD [facility] [place] [address] Malignant neoplasm of female breast, unspecified estrogen receptor status, unspecified laterality, unspecified site of breast Discharge Disposition: Home Social History Tobacco Use Types Packs/Day Years Used Date Smoking Tobacco: Former Cigarettes 0.3 1 1 6 - 1996 Smokeless Tobacco: Former Alcohol Use [...] AM EST Hospital Encounter [place] [address] Consuelo Joyce [facility] [place] [address] 06/14/2024 8:45 AM EST Appointment XRay at [address] [place] [address] Kavitha Rai MD [facility] DR HEMATOLOGY [place] [address] 06/14/2024 9:45 AM EST Appointment Hematology [place] [address] 06/14/2024 11:00 AM EST Appointment [place] [address] Consuelo Joyce [facility] [place] [address] 06/14/2024 1:00 PM EST Office Visit Hematology [place] [phone] Kavitha Rai MD [facility] HEMATOLOGY [place] [address] 06/14/2024 2:30 PM EST Appointment Hematology [place] [address] 07/05/2024 10:30 AM EDT Appointment Hematology [place] [address] 07/05/2024 11:30 AM EDT Office Visit Hematology [place] [phone] Consuelo Joyce APRN [facility] [place] [place] [address] 07/05/2024 1:00 PM EDT Appointment Hematology [place] [address] 08/16/2024 9:20 AM EDT Office Visit Ophthalmology at [place] [phone] Luz Jose, OD [facility] [place] [address] 01/14/2025 8:30 AM EDT Office Visit Psychiatry and Behavioral Health at [place] [phone] Anna Oneill, PhD [facility] [place] [address] documented as of this encounter Procedures Procedure Name Priority Date/Time Associated Diagnosis Comments MAMMO DIAGNOSTIC CAD AND CORIN BILATERAL Routine 11/07/2023 4:28 PM EDT Malignant neoplasm of female breast, unspecified estrogen receptor status, unspecified laterality, unspecified site of breast documented in this encounter Results * Mammo Diagnostic CAD and Corin Bilateral (11/07/2023 4:28 PM EDT) WORKSTATION ID [id number] 1 RAD [...] who have questions please contact the health vision care associate that requested your imaging first. ? Narrative 11/07/2023 5:35 PM EDT EXAMINATION: MAMMO DIAGNOSTIC CAD AND CORIN BILATERAL CLINICAL HISTORY: assess residual calcifications and [...] Susana Estrada MD IMG MAMMO ORDERABLE S documented in this encounter Visit Diagnoses Diagnosis Malignant neoplasm of female breast, unspecified estrogen receptor status, unspecified laterality, unspecified site of breast documented in this encounter Care Teams Planning Associate Relationship Specialty Start Date End Date Ryan Betancourt MD [address] [place] [phone] PCP - General Family Medicine 07/29/22 documented as of this encounter
--- OUTSIDE RECORDS SUMMARY | 2024-06-01 20:38 | XMS_ITS | Encounter Summary ---
Author Organization Formerly [facility] [place] [address] Care Team Providers Care Process Chemist Name Role Phone Ryan Betancourt MD Primary Care Provider [phone] Reason for Visit * Treatment/Therapy Plan Authorization (Routine) - Authorized Specialty Diagnoses / Procedures Referred By Contdede t Referred To Contact Hematology and Oncology Diagnoses Malignant neoplasm of overlapping sites of right breast in female, estrogen receptor negative Consuelo Joyce APRN [facility] [place] [address] [address] Referral ID Status Reason Start Date Expiration Date V isits Requested Visits Authorized [id number] Authorized 11/03/2023 2024 99 108 Encounter Details Date Type Department Care Team (Latest Contact Info) Description 11/24/2023 8:35 AM EDT - 11/24/2023 11:59 PM EDT Hospital Encounter [place]ematology [place] [phone] Malignant neoplasm of overlapping sites [...] of this encounter Progress Notes * Kenzie Britt RN - 11/24/2023 5:32 PM EDT Patient Name: Soy San Patient Age: 43 y.o. Birthdate: 1980 Admit date: 11/24/2023 Attending Physician: No att. providers found Report received from Maria C Rock RN at 1700. Soo completed her 90 minute observation without incident at 1730. Implanted port terminally flushed and deaccessed per protocol. Soo confirms that all questions and issues have been addressed. Patient discharged to home. * Maria C Rock RN - 11/24/2023 2:37 PM EDT Patient Name: Soy San Patient Age: 43 y.o. Birthdate: 1980 Admit date: 11/24/2023 Attending Physician: No att. providers found Soy San, 43 y.o. female with diagnosis of 1. Malignant neoplasm of overlapping sites of right breast in female, estrogen receptor negative is here for chemotherapy infusion of Kadcyla. PROTOCOL: n/a CYCLE: 1 DAY: 1 S: Patient offers no complaints at this time. O: Chemotherapy orders independently verified for correct drug name, route and dosage per patient'sheight, weight and BSA by Maria C Rock, YOSEF and a [facility] pharmacist. Chemotherapy administered per protocol. Pt observed for 90 minutes post-infusion without incident. REACTIONS (DESCRIPTION, TIME, INTERVENTION AND EFFECTIVENESS) none A: Patient tolerated treatment well. Soy San confirms that all questions and concerns have been addressed prior to departure. P: Return to for care as scheduled. documented in this encounter Plan of Treatment Upcoming Encounters Date Type Department Care Team (Late st Contact Info) Description 06/14/2024 8:00 AM EST Hospital Encounter [place] [address] Consuelo Joyce [facility] [place] [address] 06/14/2024 8:45 AM EST Appointment XRay at [address] [place] [address] Kavitha Rai MD [facility] HEMATOLOGY [place] [address] 06/14/2024 9:45 AM EST Appointment Hematology [place] [address] 06/14/2024 11:00 AM EST Appointment [place] [address] Consuelo Joyce [facility] [place] [address] 06/14/2024 1:00 PM EST Office Visit Hematology [place] [address] Kavitha Rai MD [facility] [address] [place] [address] 06/14/2024 2:30 PM EST Appointment Hematology and Oncology at [place] [phone] 07/05/2024 10:30 AM EDT Appointment Hematology and Oncology at [place] [address] 07/05/2024 11:30 AM EDT Office Visit Hematology and Oncology at [address] Consuelo Joyce APRN [facility] [place] [address] 07/05/2024 1:00 PM EDT Appointment Hematology and Oncology at [place] [phone] 08/16/2024 9:20 AM EDT Office Visit Ophthalmology at [place] [address] Luz Jose, CARSON [facility] [place] [address] 01/14/2025 8:30 AM EDT Office Visit Psychiatry and Behavioral Health at [place] [phone] Anna Oneill, PhD [facility] [place] [address] documented as of this encounter Visit Diagnoses Diagnosis Malignant neoplasm of overlapping sites of right breast in female, estrogen receptor negative documented in this encounter Administered Medications Inactive Administered Medications - up to 3 most recent administrations Medication Order MAR Action Action Date Dose Rate Site ado-TRASTuzumab emtansine (Kadcyla) 400 mg in sodium chloride 0.9% 270 mL infusion 400 mg (rounded from 403.56 mg = 3.6 mg/kg/dose ? 112.1 kg Treatment plan Recorded weight), Intravenous, ONCE, 1 dose, On Yvette 11/24/23 at 1400, Administer over 90 Minutes, Monitor patient for 90 minutes after the first dose of ado-TRASTuzumab emtansine for infusion reactions., This agent is restricted to outpatient use. Is this drug being given as an outpatient? Yes New Bag 11/24/2023 2:33 PM EDT 400 mg 180 mL/hr ondansetron (Zofran) tablet 8 mg 8 mg, Oral, ONCE, 1 dose, On Yvette 11/24/23 at 1300, Administer prior to chemotherapy, Routine Given 11/24/2023 2:25 PM EDT 8 mg sodium chloride 0.9 % (flush) (BD PosiFlush Normal Saline 0.9) flush 5-20 mL 5-20 mL, Intravenous, EVERY 1 MIN PRN, Starting on Yvette 11/24/23 at 1230, Until Tue11/25/23 at 0435, Line Care, Flush pertains to all indwelling lines. Flush per protocol found in the job aid using the link provided on this medication record. Refer to Intravenous (IV) Job Aid: Adult Flushing & Catheter Care (7864) job aid for additional information regarding guidelines and administration., Routine Given 11/24/2023 4:08 PM EDT 20 mLs sodium chloride 0.9% infusion 500 mL, Intravenous, ONCE, 1 dose, On Yvette 11/24/23 at 1300 New Bag 11/24/2023 2:25 PM EDT 500 mLs documented in this encounter Care Teams Process Chemist Relationship Specialty Start Date End Date Ryan Betancourt MD [address] [place] [phone] PCP - General Family Medicine 07/29/22 documented as of this encounter
--- OUTSIDE RECORDS SUMMARY | 2024-06-01 20:38 | XMS_ITS | Encounter Summary ---
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 No 07/29/2022 Sex and [...] Hospital Encounter [place] [phone] Consuelo Joyce [facility] [place] [address] 06/14/2024 8:45 AM EST Appointment XRay at [address] [place] [address] Kavitha Rai MD [facility] DR HEMATOLOGY [place] [address] 06/14/2024 9:45 AM EST Appointment Hematology [place] [phone] 06/14/2024 11:00 AM EST Appointment [place] [phone] Consuelo Joyce [facility] [place] [place] [address] 06/14/2024 1:00 PM EST Office Visit Hematology [place] [phone] Kavitha Rai MD [facility] [address] [place] [address] 06/14/2024 2:30 PM EST Appointment Hematology and Oncology at [place] [phone] 07/05/2024 10:30 AM EDT Appointment Hematology and Oncology at [place] [phone] 07/05/2024 11:30 AM EDT Office Visit Hematology and Oncology at [place] [phone] Consuelo Joyce APRN [facility] [place] [place] [address] 07/05/2024 1:00 PM EDT Appointment Hematology and Oncology at [place] [phone] 08/16/2024 9:20 AM EDT Office Visit Ophthalmology at [place] [phone] Luz Jose OD [facility] [place] [place] [address] 01/14/2025 8:30 AM EDT Office Visit Psychiatry and Behavioral Health at [place] [phone] Anna Oneill, PhD [facility] [place] [place] [address] documented as of this encounter Procedures Procedure Name Priority Date/Time Associated Diagnosis Comments CANCER ANTIGEN 15-3 STAT 12/30/2023 1 1:28 AM EDT Malignant neoplasm of overlapping sites of right breast in female, estrogen receptor negative CBC (WITH DIFF) STAT 12/30/2023 11:28 AM EDT Malignant neoplasm of overlapping sites of right breast in female, estrogen receptor negative CEA Add-On 12/30/2023 11:28 AM EDT Malignant neoplasm of overlapping sites of right breast in female, estrogen receptor negative 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 COMPREHENSIVE METABOLIC PANEL STAT 12/30/2023 11:28 AM EDT Malignant neoplasm of overlapping sites of right breast in female, estrogen receptor negative documented in this encounter Results * CEA (12/30/2023 11:28 AM EDT) Carcinoembryonic Antigen 2.9 <=3.8 ng/ml 12/30/2023 2:14 PM EDT [facility] Comment: Some smokers may have elevated CEA, generally < 5.5 ng/mL. This result was generated using a Deepak Dequan immunoassay. ??Results obtained from other methods or manufacturers cannot be used interchangeably with this method. Blood VENOUS BLOOD SPECIMEN / Unknown 12/30/2023 11:28 AM EDT 12/30/2023 11:28 AM EDT Consuelo Joyce [employer] CHEMISTRY ORDERABLE S [facility] [place] [address] * (ABNORMAL) Cancer antigen 15-3 (12/30/2023 11:28 AM EDT) CA 15-3 32(H) <=25 unit/mL 12/30/2023 12:16 PM EDT [facility] Comment:This result was gene rated using a Deepak Dequan immunoassay. Results obtained from other methods or manufacturers cannot be used interchangeably with this method. Blood VENOUS BLOOD SPECIMEN / Unknown 12/30/2023 11:28 AM EDT 12/30/2023 11:28 AM EDT Kavitha Rai MD CHEMISTRY ORDERABLES [facility] [place] [address] * (ABNORMAL) Comprehensive metabolic panel (12/30/2023 11:28 AM EDT) Glucose 143 65 - 199 mg/dL 12/30/2023 12:11 PM EDT [facility] Comment:Glucose Concentratio n >=200 mg/dL plus symptoms is consistent with Diabetes Mellitus. Blood Urea Nitrogen 16 8 - 18 mg/dL 12/30/2023 12:11 PM EDT [facility] Creatinine 0.74 0.70 - 1.20 mg/dL 12/30/2023 12:11 PM EDT [facility] Sodium 140 135 - 145 mMol/L 12/30/2023 12:11 PM EDT [facility] Potassium 3.2(L) 3.5 - 5.0 mMol/L 12/30/2023 12:11 PM EDT [facility] Chloride 107 98 - 107 mMol/L 12/30/2023 12:11 PM EDT [facility] Carbon Dioxide 24 22 - 31 mMol/L 12/30/2023 12:11 PM EDT [facility] Anion Gap 9 5 - 15 mMol/L 12/30/2023 12:11 PM EDT [facility] Calcium 8.9 8.5 - 10.5 mg/dL 12/30/2023 12:11 PM EDT [facility] Protein, Total 6.8 6.1 - 8.0 g/dL 12/30/2023 12:11 PM EDT [facility] Albumin 4.0 3.2 - 5.2 g/dL 12/30/2023 12:11 PM EDT [facility] Aspartate Aminotransferase 17 <=30 unit/L 12/30/2023 12:11 PM EDT [facility] Alanine Aminotransferase 23 0 - 30 unit/L 12/30/2023 12:11 PM EDT [facility] Alkaline Phosphatase 82 35 - 105 unit/L 12/30/2023 12:11 PM EDT [facility] Bilirubin, Total 0.3 <=1.3 mg/dL 12/30/2023 12:11 PM EDT [facility] Est Glomerular Filtration Rate - Female 102 mL/min/1. 73 m?? 12/30/2023 12:11 PM EDT [facility] Comment: This patient's estimated GFR [...] Calculator [employer] Fasting Status No 12/30/2023 12:11 PM EDT [facility] Blood VENOUS BLOOD SPECIMEN / Unknown 12/30/2023 11:28 AM EDT 12/30/2023 11:29 AM EDT Kavitha Rai MD CHEMISTRY ORDERABLES [facility] [place] [address] * CBC (with Diff) (12/30/2023 11:28 AM EDT) White Blood Cell 6.75 4.00 - 9.50 x10(3)/mcL 12/30/2023 11:35 AM EDT [facility] Red Blood Cell 4.68 4.00 - 5.21 x10(6)/mcL 12/30/2023 11:35 AM EDT [facility] Hemoglobin 13.1 11.7 - 15.5 g/dL 12/30/2023 11:35 AM EDT [facility] Hematocrit 39.2 35.7 - 45.8 % 12/30/2023 11:[address] [facility] Mean Cell Volume 83.8 82.6 - 94.4 fL 12/30/2023 11:[address] [facility] Mean Cell Hemoglobin 28.0 27.1 - 32.0 pg 12/30/2023 11:[address] [facility] Mean Cell Hemoglobin Concentration 33.4 31.7 - 35.0 g/dL 12/30/2023 11:[address] [facility] Platelet 228 145 - 357 x10(3)/mcL 12/30/2023 11:[address] [facility] Mean Platelet Volume 9.8 7.6 - 12.9 fL 12/30/2023 11:[address] [facility] RDW Standard Deviation 40.6 37.0 - 46.0 fL 12/30/2023 11:[address] [facility] RDW coefficient of variation 13.2 11.5 - 14.1 % 12/30/2023 11:[address] [facility] NRBC% auto 0.0 % 12/30/2023 11:[address] [facility] NRBC Absolute 0.00 0.00 - 0.00 x10(3)/mcL 12/30/2023 11:[address] [facility] Neutrophil % 55.3 % 12/30/2023 11:[address] [facility] Neutrophil Absolute (ANC) - Automated 3.73 1.70 - 6.10 x10(3)/mcL 12/30/2023 11:[address] [facility] Lymph % 36.9 % 12/30/2023 11:[address] [facility] Lymph Absolute 2.49 0.90 - 3.20 x10(3)/mcL 12/30/2023 11:[address] [facility] Monocyte % 4.4 % 12/30/2023 11:[address] [facility] Monocyte Absolute 0.30 0.30 - 0.90 x10(3)/mcL 12/30/2023 11:35 AM EDT [facility] Eos % 2.8 % 12/30/2023 11:35 AM EDT [facility] Eos Absolute 0.19 0.00 - 0.40 x10(3)/mcL 12/30/2023 11:35 AM EDT [facility] Basophil % 0.3 % 12/30/2023 11:35 AM EDT [facility] Baso Absolute 0.02 0.00 - 0.10 x10(3)/mcL 12/30/2023 11:35 AM EDT [facility] Immature Gran % 0.3 % 11:35 AM EDT [facility] Immature Gran Absolute 0.02 0.00 - 0.04 x10(3)/[facility] 12/30/2023 11:35 AM EDT [facility] Blood VENOUS BLOOD SPECIMEN / Unknown 12/30/2023 11:28 AM EDT 12/30/2023 11:29 AM EDT Kavitha Rai MD HEMATOLOGY ORDERABLE S [facility] [place] [address] documented in this encounter Visit Diagnoses Diagnosis Malignant neoplasm of overlapping sites of right breast in female, estrogen receptor negative 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 documented in this encounter Care Teams Cam Maker Relationship Specialty Start Date End Date Ryan Betancourt MD [address] [place] [phone] PCP - General Family Medicine 07/29/22 documented as of this encounter
--- OUTSIDE RECORDS SUMMARY | 2024-06-01 20:38 | XMS_ITS | Encounter Summary ---
[place] [address] Care Team Providers Care Sales Performance Manager Name Role Phone Ryan Betancourt MD Primary Care Provider [phone] Reason for Referral * Diagnostic Test (Routine) - Closed Specialty Diagnoses / Procedures Referred By Contac t Referred To Contact Cardiology Diagnoses Malignant neoplasm of overlapping sites of right breast in female, estrogen receptor negative Carcinoma of breast metastatic to bone, unspecified laterality Procedures Echocardiogram Transthoracic Peggy Perez APRN [facility] [place] [address] [facility] [place] [address] Referral ID Status Reason Start Date Expiration Date V isits Requested Visits Authorized [id number] Closed Specialty Service Requested 10/14/2023 12/12/2023 1 1 Reason for Visit * Diagnostic Test (Routine) - Closed Specialty Diagnoses / Procedures Referred By Contac t Referred To Contact Cardiology Diagnoses Malignant neoplasm of overlapping sites of right breast in female, estrogen receptor negative Carcinoma of breast metastatic to bone, unspecified laterality Procedures Echocardiogram Transthoracic Peggy Perez APRN [facility] [place] [address] [facility] [place] [address] Referral ID Status Reason Start Date Expiration Date V isits Requested Visits Authorized [id number] Closed Specialty Service Requested 10/14/2023 12/12/2023 1 1 Encounter Details Date Type Department Care Team (Latest Contact Info) Description 10/26/2023 9:30 AM EDT - 10/26/2023 11:59 PM EDT Hospital Encounter Non-Invasive Cardiology Lab [facility] [place] [address] Peggy Perez APRN [facility] [place] [address] Malignant neoplasm of overlapping sites of right breast in female, estrogen receptor negative; Carcinoma of breast metastatic to bone, unspecified laterality Discharge Disposition: Home Social History Tobacco Use [...] AM EST Hospital Encounter Nuclear Medicine at [place] [phone] Peggy Perez APRN [facility] [place] [address] 06/14/2024 8:45 AM EST Appointment XRay at [address] [place] [phone] Kavitha Rai MD [facility] DR HEMATOLOGY [place] [address] 06/14/2024 9:45 AM EST Appointment Hematology and Oncology at [place] [phone] 06/14/2024 11:00 AM EST Appointment Nuclear Medicine at [place] [address] Peggy Perez [facility] [place] [address] 06/14/2024 1:00 PM EST Office Visit Hematology [place] [address] Kavitha Rai MD [facility] DR HEMATOLOGY [place] [address] 06/14/2024 2:30 PM EST Appointment Hematology [place] [address] 07/05/2024 10:30 AM EDT Appointment Hematology [place] [address] 07/05/2024 11:30 AM EDT Office Visit Hematology and Oncology at [place] [phone] Peggy Perez [facility] [place] [address] 07/05/2024 1:00 PM EDT Appointment Hematology [place] [address] 08/16/2024 9:20 AM EDT Office Visit Ophthalmology at [place] [phone] Luz Jose, OD [facility] [place] [address] 01/14/2025 8:30 AM EDT Office Visit Psychiatry and Behavioral Health at [place] [phone] Anna Oneill, PhD [facility] [place] [address] documented as of this encounter Procedures Procedure Name Priority Date/Time Associated Diagnosis Comments ECHO COMPLETE Routine 10/26/2023 11:14 AM EDT Malignant neoplasm of overlapping sites of right breast in female, estrogen receptor negative Carcinoma of breast metastatic to bone, unspecified laterality documented in this encounter Results * ECHO COMPLETE (10/26/2023 11:14 AM EDT) EF 62 HEARTLAB SYSTEM Anatomical Region Laterality Modality Cardiac Other 10/26/2023 10:0 1 AM EDT Narrative 10/26/2023 1:10 PM EDT 1 [place] [address] ? Echocardiogram Report Name: SOY SAN ?Study Date: 10/26/2023 10:01 AMBP: 150/101 mmHg ? Patient Location: 4A : 1980 ? Height: 163 cm ? Account: [id number] Age: 42 yrs ? Weight: 112 kg Gender: Female ?BSA: 2.1 m2 Ordering Physician: PEGGY PEREZ Referring Physician: PEGGY PEREZ Performed By: LAVELL Espinal Reason For Study: Carcinoma of breast metastatic to bone Exam Location: [facility]. Interpretation Summary 1. The left ventricle is normal in size and function. LVE is 62% by Garcia's biplane. GLS is -15.3%. 2. The right ventricle is normal in size and function. PASP estimated at 24 mmHg, assuming RAP of 8 mmHg. 3. The atria appear normal. 4. The valves are structurally and functionally normal. 5. See body of report for additional details. Findings are similar to prior study dated 03/17/23. GLS is now -15.3% from -17.0%. Procedure Complete-[id number]. Satisfactory quality. There is normal sinus rhythm. Left Ventricle Left ventricle is of normal size. Wall thickness is normal. There is no ventricular septal defect. Left ventricular systolic function is normal. The left ventricular ejection fraction is 62% by Garcia's biplane. Global longitudinal strain is measured at -15.3 %. (GE). There are no segmental wall motion abnormalities. Right Ventricle The right ventricle is of normal size. Right ventricular systolic function is normal. Left Atrium The left atrium is normal. The interatrial septum is not well visualized. Right Atrium The right atrium is normal. Aortic Valve The aortic valve is tricuspid. There is no aortic stenosis. There is no aortic regurgitation. Mitral Valve The mitral valve is structurally normal. There is no mitral stenosis. There is trace mitral regurgitation. Tricuspid Valve The tricuspid valve is structurally normal. There is no tricuspid stenosis. There is trace tricuspid regurgitation. Pulmonic Valve The pulmonic valve appears to be structurally normal. There is no valvular pulmonic stenosis. There is trace pulmonic valve regurgitation. Great Arteries The diameter at the level of the sinuses of Valsalva is 2.8 cm. The maximum diameter of the proximal ascending aorta is 2.8 cm. No abnormalities of the pulmonary artery are identified. Venous Inferior vena cava is normal in size. Inferior vena cava collapse less than 50% with respiration. Pericardium/Pleural There is no pericardial effusion. Hemodynamics The peak right ventricular systolic pressure is 24.0 mmHg . The estimated right atrial pressure is 8mmHg. Left ventricular diastolic function is normal. Left ventricular filling pressure is normal. Ejection Fraction ?2D Measurements ? Volumes EF(MOD-bp): 61.9 % ?IVSd: 1.1 cm ? LAV(MOD- bp) Indexed: ?LVIDd: 4.5 cm ?LVPWd: 0.93 cm ? 16.8 ml/m2 ?RWT: 0.41 {ratio} ?RA A4Cs_phl: 16.6 cm2 ? EDV(MOD-bp) Indexed: ?LV mass(C)d: 158.4 grams ?LV mass(C)dI: 73.9 grams/m2 ?45.6 ml/m2 ?Ao root diam: 2.8 cm ? ESV(MOD-bp) Indexed: ?Ao root diam index: 1.3 ?17.3 ml/m2 ?asc Aorta Diam: 2.8 cm ? 3D ESV: 41.3 ml ?LVOT diam: 2.0 cm ?3D EDV: 87.6 ml ?TAPSE_phl: 1.8 cm ? 3DEDV Indexed: 40.8 ml/m2 ? 3DESV Indexed: 19.3 ml/m2 ? SV(LVOT): 60.3 ml ? SI(LVOT): 28.1 ml/m2 Doppler LV V1 VTI: 20.1 cm MV E max cameron: 62.1 cm/sec MV A max cameron: 48.8 cm/sec MV E/A: 1.3 MV dec time: 0.21 sec Lat Peak E' Cameron: 13.2 cm/sec E/e' (lat): 4.7 Med Peak E' Cameron: 9.1 cm/sec E/e' (med): 6.8 E/e' Average: 5.8 TR max cameron: 200.1 cm/sec RVSP(TR): 24.0 mmHg I ?WMSI = 1.00 ? % Normal = 100 ?Segments ??Size X - Cannot ?? 1 - Normal ?? 2 - ? 3 - Akinetic 4 - ?1-2 ? small Interpret ? Hypokinetic ?Dyskinetic ?? 3-5 ? moderate 5 - ? 6-14 ?large Aneurysmal ?15-16 ?? diffuse Procedure Note Brielle Feng MD - 10/26/[address] [place], [place] [id number] Echocardiogram Report Name: SOY SAN Study Date: 0:01 AMBP: 150/101 mmHg Patient Location: : 1980 Height: 163 cm Account: [id number] Age: 42 yrs Weight: 112 kg Gender: Female BSA: 2.1 m2 Ordering Physician: PEGGY PEREZ Referring Physician: PEGGY PEREZ Performed By: LAVELL Espinal Reason For Study: Carcinoma of breast metastatic to bone Exam Location: [facility]. Interpretation Summary 1. The left ventricle is normal in size and function. LVE is 62% bySimpson's biplane. GLS is -15.3%. 2. The right ventricle is normal in size and function. PASP estimated at24 mmHg, assuming RAP of 8 mmHg. 3. The atria appear normal. 4. The valves are structurally and functionally normal. 5. See body of report for additional details. Findings are similar [facility] study dated 03/17/23. GLS is now -15.3% from -17.0%. Procedure Complete-[id number]. Satisfactory quality. There is normal sinus rhythm. Left Ventricle Left ventricle is of normal size. Wall thickness is normal. There is no ventricular septal defect. Left ventricular systolic function is normal.The left ventricular ejection fraction is 62% by Garcia's biplane. Globallongitudinal strain is measured at -15.3 %. (GE). There are no segmental wall motion abnormalities. Right Ventricle The right ventricle is of normal size. Right ventricular systolic functionis normal. Left Atrium The left atrium is normal. The interatrial septum is not wellvisualized. Right Atrium The right atrium is normal. Aortic Valve The aortic valve is tricuspid. There is no aortic stenosis. There is noaortic regurgitation. Mitral Valve The mitral valve is structurally normal. There is no mitral stenosis.There is trace mitral regurgitation. Tricuspid Valve The tricuspid valve is structurally normal. There is no tricuspidstenosis. There is trace tricuspid regurgitation. Pulmonic Valve The pulmonic valve appears to be structurally normal. There is novalvular pulmonic stenosis. There is trace pulmonic valve regurgitation. Great Arteries The diameter at the level of the sinuses of Valsalva is 2.8 cm. Themaximum diameter of the proximal ascending aorta is 2.8 cm. No abnormalities ofthe pulmonary artery are identified. Venous Inferior vena cava is normal in size. Inferior vena cava collapse lessthan 50% with respiration. Pericardium/Pleural There is no pericardial effusion. Hemodynamics The peak right ventricular systolic pressure is 24.0 mmHg . The estimatedright atrial pressure is 8mmHg. Left ventricular diastolic function is normal.Left ventricular filling pressure is normal. Ejection Fraction 2D Measurements Volumes EF(MOD-bp): 61.9 % IVSd: 1.1 cm LAV(MOD-bp)Indexed: LVIDd: 4.5 cm LVPWd: 0.93 cm 16.8 ml/m2 RWT: 0.41 {ratio} RA A4Cs_phl: 16.6cm2 EDV(MOD-bp)Indexed: LV mass(C)d: 158.4 grams LV mass(C)dI: 73.9 grams/m2 45.6 ml/m2 Ao root diam: 2.8 cm ESV(MOD-bp)Indexed: Ao root diam index: 1.3 17.3 ml/m2 asc Aorta Diam: 2.8 cm 3D ESV: 41.3 ml LVOT diam: 2.0 cm 3D EDV: 87.6 ml TAPSE_phl: 1.8 cm 3DEDV Indexed:40.8 ml/m2 3DESV Indexed:19.3 ml/m2 SV(LVOT): 60.3ml SI(LVOT): 28.1ml/m2 Doppler LV V1 VTI: 20.1 cm MV E max cameron: 62.1 cm/sec MV A max cameron: 48.8 cm/sec MV E/A: 1.3 MV dec time: 0.21 sec Lat Peak E' Cameron: 13.2 cm/sec E/e' (lat): 4.7 Med Peak E' Cameron: 9.1 cm/sec E/e' (med): 6.8 E/e' Average: 5.8 TR max cameron: 200.1 cm/sec RVSP(TR): 24.0 mmHg I WMSI = 1.00 % Normal = 100 SegmentsSize X - Cannot 1 - Normal 2 - 3 - Akinetic 4 - 1-2small Interpret Hypokinetic Dyskinetic 3-5moderate 5 - 6-14large Aneurysmal 15-16diffuse Peggy Perez CERAMIC DESIGNER ECHO ORDERABLES documented in this encounter Visit Diagnoses Diagnosis Malignant neoplasm of overlapping sites of right breast in female, estrogen receptor negative Carcinoma of breast metastatic to bone, unspecified laterality documented in this encounter Care Teams Sales Performance Manager Relationship Specialty Start Date End Date Ryan Betancourt MD [address] [place] [phone] PCP - General Family Medicine 07/29/22 documented as of this encounter
--- OUTSIDE RECORDS SUMMARY | 2024-06-01 20:38 | XMS_ITS | Encounter Summary ---
Author Organization [facility] Address [facility] [place] [address] Care Team Providers Care Cnc Machinist Name Role Phone Ryan Betancourt MD Primary Care Provider [phone] Encounter Details Date Type Department Care Team (Latest Contact Info) Description 11/03/2023 Travel Social History Tobacco Use Types Packs/Day [...] AM EST Hospital En[place] [address] Consuelo Joyce APRN [facility] [place] [address] 06/14/2024 8:45 AM EST Appointment XRay at [address] [place] [address] Kavitha Rai MD [facility] DR [place] [address] 06/14/2024 9:45 AM EST Appointment Hematology [place] [address] 06/14/2024 11:00 AM EST Appointment [place] [address] Consuelo Joyce APRN [facility] [place] [address] 06/14/2024 1:00 PM EST Office Visit Hematology [place] [address] Kavitha Rai MD [facility] [place] [address] 06/14/2024 2:30 PM EST Appointment Hematology [place] [address] 07/05/2024 10:30 AM EDT Appointment Hematology and Oncology at [place] [phone] 07/05/2024 11:30 AM EDT Office Visit Hematology and Oncology at [place] [phone] Consuelo Joyce APRN [facility] [place] [address] 07/05/2024 1:00 PM EDT Appointment Hematology and Oncology at [place] [address] 08/16/2024 9:20 AM EDT Office Visit Ophthalmology at [place] [phone] Luz Jose, OD [facility] [place] [address] 01/14/2025 8:30 AM EDT Office Visit Psychiatry and Behavioral Health at [place] [address] Anna Oneill, PhD [facility] [place] [address] documented as of this encounter Visit Diagnoses Not on filedocumented in this encounter Care Teams Cnc Machinist Relationship Specialty Start Date End Date Ryan Betancourt MD [address] [place] [phone] PCP - General Family Medicine 07/29/22 documented as of this encounter
--- OUTSIDE RECORDS SUMMARY | 2024-06-01 20:38 | XMS_ITS | Encounter Summary ---
Author Organization [facility] Address [facility] [place] [address] Care Team Providers Care Videogame Designer Name Role Phone Ryan Betancourt MD Primary Care Provider [phone] Encounter Details Date Type Department Care Team (Latest Contact Info) Description 10/26/2023 Travel Social History Tobacco Use Types Packs/Day [...] AM EST Hospital Encounter [place] [address] Consuelo Joyce APRN [facility] [place] [address] 06/14/2024 8:45 AM EST Appointment XRay at [address] [place] [address] Kavitha Rai MD [facility] DR HEMATOLOGY [place] [address] 06/14/2024 9:45 AM EST Appointment Hematology [place] [address] 06/14/2024 11:00 AM EST Appointment [place] [address] Consuelo Joyce APRN [facility] [place] [address] 06/14/2024 1:00 PM EST Office Visit Hematology [place] [address] Kavitha Rai MD [facility] HEMATOLOG[place] [address] 06/14/2024 2:30 PM EST Appointment Hematology [place] [address] 07/05/2024 10:30 AM EDT Appointment Hematology and Oncology at [place] [phone] 07/05/2024 11:30 AM EDT Office Visit Hematology and Oncology at [place] [phone] Consuelo Joyce APRN [facility] [place] [address] 07/05/2024 1:00 PM EDT Appointment Hematology and Oncology at [place] [address] 08/16/2024 9:20 AM EDT Office Visit Ophthalmology at [place] [phone] Luz Jose, OD [facility] [place] [address] 01/14/2025 8:30 AM EDT Office Visit Psychiatry and Behavioral Health at [place] [address] Anna Oneill, PhD [facility] [place] [address] documented as of this encounter Visit Diagnoses Not on filedocumented in this encounter Care Teams Videogame Designer Relationship Specialty Start Date End Date Ryan Betancourt MD [address] [place] [phone] PCP - General Family Medicine 07/29/22 documented as of this encounter
--- OUTSIDE RECORDS SUMMARY | 2024-06-01 20:38 | XMS_ITS | Encounter Summary ---
Author Organization [facility] Address [facility] [place] [address] Care Team Providers Care Firer Kiln Name Role Phone Ryan Betancourt MD Primary Care Provider [phone] Encounter Details Date Type Department Care Team (Late st Contact Info) Description 10/14/2023 Notes Only Care Management [facility] [place] [phone] Lilian Gipson, TRAFFIC CONTROL SPECIALIST Social History Tobacco Use Types Packs/Day Years [...] Progress Notes * Lilian Gipson MSW - 10/14/2023 4:49 PM EDT Comprehensive Breast Program Social Work Note Per Soo's inquiry I'm able to send referral to [facility] food pantry. It has been determined that the patient has food insecurity and/or dietary needs. The following action has been taken: Prescribed visit(s) to onsite Food is Medicine Service Completed today: Food insecurity resources Willow Gipson (Stephanie) ORACLE DEVELOPER Breast and Gynecology Oncology [facility] documented in this encounter Plan of Treatment Upcoming Encounters Date Type Department Care Team (Late st Contact Info) Description 06/14/2024 8:00 AM EST Hospital Encounter [place] [address] Consuelo Joyce APRN [facility] [place] [address] 06/14/2024 8:45 AM EST Appointment XRay at [address] [place] [address] Kavitha Rai MD [facility] DR HEMATOLOGY AND ONCOLOGY [place], [place] [phone] 06/14/2024 9:45 AM EST Appointment Hematology [place] [address] 06/14/2024 11:00 AM EST Appointment Nuclear Medicine at [place] [address] Consuelo Joyce APRN [facility] [place] [address] 06/14/2024 1:00 PM EST Office Visit Hematology and Oncology at [place] [address] Kavitha Rai MD [facility] [address] [place] [address] 06/14/2024 2:30 PM EST Appointment Hematology and Oncology at [place] [address] 07/05/2024 10:30 AM EDT Appointment Hematology and Oncology at [place] [address] 07/05/2024 11:30 AM EDT Office Visit Hematology and Oncology at [place] [address] Consuelo Joyce, [facility] [place] [address] 07/05/2024 1:00 PM EDT Appointment Hematology and Oncology at [address] 08/16/2024 9:20 AM EDT Office Visit Ophthalmology at [place] [address] Luz Jose OD [facility] [place] [address] 01/14/2025 8:30 AM EDT Office Visit Psychiatry and Behavioral Health at [place] [phone] Anna Oneill, PhD [facility] [place] [address] documented as of this encounter Visit Diagnoses Not on filedocumented in this encounter Care Teams Firer Kiln Relationship Specialty Start Date End Date Ryan Betancourt MD [address] [place] [phone] PCP - General Family Medicine 07/29/22 documented as of this encounter
--- OUTSIDE RECORDS SUMMARY | 2024-06-01 20:38 | XMS_ITS | Encounter Summary ---
Author Organization [facility] Address [facility] [place] [address] Care Team Providers Care Technical Support Intern Name Role Phone Ryan Betancourt MD Primary Care Provider [phone] Encounter Details Date Type Department Care Team (Late st Contact Info) Description 11/03/2023 Orders [place] [address] Susana Estrada MD [facility] [place] [address] Malignant neoplasm of female breast, unspecified estrogen receptor status, unspecified laterality, unspecified site of breast Social History Tobacco Use Types Packs/Day Years Used Date Smoking Tobacco: Former Cigarettes 0.3 1 - 1996 Smokeless Tobacco: Former Alcohol [...] place to sleep or slept in a [place] care facility (including now)? No 07/29/2022 Sex and Gender Information Value Date Recorded Sex Assigned at Not on file Gender Identity Not on file Sexual Orientation Not on file documented as of this encounter Plan of Treatment Upcoming Encounters Date Type Department Care Team (Late st Contact Info) Description 06/14/2024 8:00 AM EST Hospital Encounter [place] [address] Consuelo Joyce [facility] [place] [address] 06/14/2024 8:45 AM EST Appointment XRay at [address] [place] [address] Kavitha Rai MD [facility] DR HEMATOLOGY [place] [address] 06/14/2024 9:45 AM EST Appointment [place]ology [place] [address] 06/14/2024 11:00 AM EST Appointment [place] [phone] Consuelo Joyce [facility] [place] [address] 06/14/2024 1:00 PM EST Office Visit [place]ology [place] [phone] Kavitha Rai MD [facility] [place] [address] 06/14/2024 2:30 PM EST Appointment [place] [address] 07/05/2024 10:30 AM EDT Appointment Hematology and Oncology at [place] [phone] 07/05/2024 11:30 AM EDT Office Visit Hematology and Oncology at [place] [phone] Consuelo Joyce APRN [facility] [place] [address] 07/05/2024 1:00 PM EDT Appointment [place] [phone] 08/16/2024 9:20 AM EDT Office Visit Ophthalmology at [place] [phone] Luz Jose, [facility] [place] [address] 01/14/2025 8:30 AM EDT Office Visit Psychiatry and Behavioral Health at [place] [phone] Anna Oneill, PhD [facility] [place] [address] documented as of this encounter Results * Mammo Diagnostic CAD [...] who have questions please contact the health home care physical therapist that requested your imaging first. ? Electronically signed by: Madina Gardner MD, [facility] ([phone]), at 11/07/2023 5:35 PM Narrative 11/07/2023 5:35 [...] status, unspecified laterality, unspecified site of breast Malignant neoplasm of female breast, unspecified estrogen receptor status, unspecified laterality, unspecified site of breast documented in this encounter Care Teams Technical Support Intern Relationship Specialty Start Date End Date Ryan Betancourt MD [address] [place] [phone] PCP - General Family Medicine 07/29/22 documented as of this encounter
--- OUTSIDE RECORDS SUMMARY | 2024-06-01 20:39 | XMS_ITS | Encounter Summary ---
Author Organization Replaced By [facility] Address [facility] [place] [address] Care Team Providers Care Position Classification Manager Name Role Phone Ryan Betancourt MD Primary Care Provider [phone] Encounter Details Date Type Department Care Team (Latest Contact Info) Description 09/01/2023 Travel Social History Tobacco Use Types Packs/Day [...] AM EST Hospital En[place] [address] Consuelo Joyce APRN [facility] [place] [address] 06/14/2024 8:45 AM EST Appointment XRay at [address] [place] [address] Kavitha Rai MD [facility] DR HEMAT[place] [address] 06/14/2024 9:45 AM EST Appointment Hematology [place] [address] 06/14/2024 11:00 AM EST [place] [address] Consuelo Joyce APRN [facility] [place] [address] 06/14/2024 1:00 PM EST Office Visit Hematology [place] [address] Kavitha Rai MD [facility] [place] [address] 06/14/2024 2:30 PM EST Appointment Hematology [place] [address] 07/05/2024 10:30 AM EDT Appointment Hematology and Oncology at [place] [phone] 07/05/2024 11:30 AM EDT Office Visit Hematology and Oncology at [place] [phone] Consuelo Joyce APRN [facility] [place] [address] 07/05/2024 1:00 PM EDT Appointment Hematology and Oncology at [place] [address] 08/16/2024 9:20 AM EDT Office Visit Ophthalmology at [place] [phone] Luz Jose, OD [facility] [place] [address] 01/14/2025 8:30 AM EDT Office Visit Psychiatry and Behavioral Health at [place] [address] Anna Oneill, PhD [facility] [place] [address] documented as of this encounter Visit Diagnoses Not on filedocumented in this encounter Care Teams Position Classification Manager Relationship Specialty Start Date End Date Ryan Betancourt MD [address] [place] [phone] PCP - General Family Medicine 07/29/22 documented as of this encounter
--- OUTSIDE RECORDS SUMMARY | 2024-06-01 20:39 | XMS_ITS | Encounter Summary ---
Author Organization [facility] Address [facility] [place] [address] Care Team Providers Care Pals Nurse Name Role Phone Ryan Betancourt MD Primary Care Provider [phone] Encounter Details Date Type Department Care Team (Late st Contact Info) Description 09/13/2023 Notes Only Care Management [facility] [place] [phone] Lilian Gipson, RATE INSERTER Social History Tobacco Use Types Packs/Day Years [...] Progress Notes * Lilian Gipson MSW - 09/13/2023 1:04 PM EDT Comprehensive Breast Program Social Work Note I receive call from Soo Vital's BS housekeeping worker (direct line [phone] ), regarding Soo's need for financial supports. Zahraa is assisting with an application CPSF for household expenses, andwe plan for me to contact Soo to assess further. for Soo on 09/19, and send message with same content to her [facility] account, encouraging call back/reply at a time convenient for her. Completed today: Care Coordination Financial resources Willow Gipson (Stephanie) [facility] Breast and Gynecology Oncology [facility] documented in this encounter Plan of Treatment Upcoming Encounters Date Type Department Care Team (Late st Contact Info) Description 06/14/2024 8:00 AM EST Hospital [place] [address] Consuelo Joyce APRN [facility] [place]ICAL [place] [address] 06/14/2024 8:45 AM EST Appointment XRay at [address] [place] [phone] Kavitha Rai MD [facility] DR HEMATOLOGY AND ONCOLOGY [place], [place] [phone] 06/14/2024 9:45 AM EST Appointment Hematology and Oncology at [address] 06/14/2024 11:00 AM EST Appointment Nuclear Medicine at [place] [address] Consuelo Joyce APRN [facility] [place] [address] 06/14/2024 1:00 PM EST Office Visit Hematology and Oncology at [address] Kavitha Rai MD [facility] DR [place]EMAT[place] [address] 06/14/2024 2:30 PM EST Appointment Hematology and Oncology at [place] [phone] 07/05/2024 10:30 AM EDT Appointment Hematology and Oncology at [place] [address] 07/05/2024 11:30 AM EDT Office Visit Hematology and Oncology at [place] [phone] Consuelo Joyce SOCIETY REPORTER [facility] [place] [address] 07/05/2024 1:00 PM EDT Appointment Hematology and Oncology at [place] [phone] 08/16/2024 9:20 AM EDT Office Visit Ophthalmology at [place] [phone] Luz Jose OD [facility] [place] [address] 01/14/2025 8:30 AM EDT Office Visit Psychiatry [place] [address] Anna Oneill, PhD [facility] [place] [address] documented as of this encounter Visit Diagnoses Not on filedocumented in this encounter Care Teams Pals Nurse Relationship Specialty Start Date End Date Ryan Betancourt MD [address] [place] [phone] PCP - General Family Medicine 07/29/22 documented as of this encounter
--- OUTSIDE RECORDS SUMMARY | 2024-06-01 20:39 | XMS_ITS | Encounter Summary ---
Author Organization [facility] Address [facility] [place] [address] Care Team Providers Care Pig Furnace Operator Name Role Phone Ryan Betancourt MD Primary Care Provider [phone] Encounter Details Date Type Department Care Team (Latest Contact Info) Description 10/13/2023 Travel Social History Tobacco Use Types Packs/Day [...] AM EST Hospital En[place] [address] Consuelo Joyce APRN [facility] [place] [address] 06/14/2024 8:45 AM EST Appointment XRay at [address] [place] [address] Kavitha Rai MD [facility] DR HEMATOLOGY [place] [address] 06/14/2024 9:45 AM EST Appointment Hematology [place] [address] 06/14/2024 11:00 AM EST Appointment [place] [address] Consuelo Joyce APRN [facility] [place] [address] 06/14/2024 1:00 PM EST Office Visit Hematology [place] [address] Kavitha Rai MD [facility] HEMATOLOGY [place] [address] 06/14/2024 2:30 PM EST Appointment Hematology [place] [address] 07/05/2024 10:30 AM EDT Appointment Hematology and Oncology at [place] [phone] 07/05/2024 11:30 AM EDT Office Visit Hematology and Oncology at [place] [phone] Consuelo Joyce APRN [facility] [place] [address] 07/05/2024 1:00 PM EDT Appointment Hematology and Oncology at [place] [address] 08/16/2024 9:20 AM EDT Office Visit Ophthalmology at [place] [phone] Luz Jose, OD [facility] [place] [address] 01/14/2025 8:30 AM EDT Office Visit Psychiatry and Behavioral Health at [place] [address] Anna Oneill, PhD [facility] [place] [address] documented as of this encounter Visit Diagnoses Not on filedocumented in this encounter Care Teams Pig Furnace Operator Relationship Specialty Start Date End Date Ryan Betancourt MD [address] [place] [phone] PCP - General Family Medicine 07/29/22 documented as of this encounter
--- OUTSIDE RECORDS SUMMARY | 2024-06-01 20:39 | XMS_ITS | Encounter Summary ---
[place] [address] Care Team Providers Care Dredge Mate Name Role Phone Ryan Betancourt MD Primary Care Provider [phone] Reason for Referral * Diagnostic Test (Routine) - Closed Specialty Diagnoses / Procedures Referred By Ciaran lopez Referred To Contact Radiology Diagnoses Malignant neoplasm of overlapping sites of right breast in female, estrogen receptor negative Deformity of nail bed Gastroesophageal reflux disease, unspecified whether esophagitis present Procedures NM Bone Scan Whole Body Kavitha Rai MD [facility] DR HEMATOLOGY [place] [address] [place] [address] Referral ID Status Reason Start Date Expiration Date V isits Requested Visits Authorized [id number] Closed Specialty Service Requested 09/22/2023 03/23/2025 1 1 Reason for Visit * Diagnostic Test (Routine) - Closed Specialty Diagnoses / Procedures Referred By Ciaran lopez Referred To Contact Radiology Diagnoses Malignant neoplasm of overlapping sites of right breast in female, estrogen receptor negative Deformity of nail bed Gastroesophageal reflux disease, unspecified whether esophagitis present Procedures NM Bone Scan Whole Body Kavitha Rai MD [facility] DR HEMATOLOGY [place] [address] [place] [address] Referral ID Status Reason Start Date Expiration Date V isits Requested Visits Authorized [id number] Closed Specialty Service Requested 09/22/2023 03/23/2025 1 1 Encounter Details Date Type Department Care Team (Latest Contact Info) Description 10/14/2023 10:35 AM EDT - 10/14/2023 11:18 AM EDT Hospital En[place] [phone] Kavitha Rai MD [facility] DR HEMATOLOGY [place] [address] Malignant neoplasm of overlapping sites of right [...] place to sleep or slept in a residential (including now)? No 07/29/2022 Sex and Gender [...] AM EST Hospital Encounter Nuclear Medicine at [place] [phone] Consuelo Joyce [facility] [place] [address] 06/14/2024 8:45 AM EST Appointment XRay at [address] [place] [phone] Kavitha Rai MD [facility] DR HEMATOLOGY [place] [address] 06/14/2024 9:45 AM EST Appointment Hematology [place] [phone] 06/14/2024 11:00 AM EST Appointment Nuclear Medicine at [place] [phone] Consuelo Joyce [facility] [place] [address] 06/14/2024 1:00 PM EST Office Visit Hematology [place] [address] Kavitha Rai MD [facility] DR HEMATOLOGY [place] [address] 06/14/2024 2:30 PM EST Appointment Hematology [place] [phone] 07/05/2024 10:30 AM EDT Appointment Hematology [place] [address] 07/05/2024 11:30 AM EDT Office Visit Hematology [place] [address] Consuelo Joyce APRN [facility] [place] [address] 07/05/2024 1:00 PM EDT Appointment Hematology [place] [phone] 08/16/2024 9:20 AM EDT Office [place] [phone] Luz Jose, OD [facility] [place] [place] [address] 01/14/2025 8:30 AM EDT Office Visit Psychiatry and Behavioral Health at [place] [phone] Anna Oneill, PhD [facility] [place] [address] documented as of this encounter Procedures Procedure [...] Body (10/14/2023 2:31 PM EDT) WORKSTATION ID [id number] [facility] Anatomical Region Laterality Modality Nuclear Medicine Impressions [...] who have questions please contact the health anesthesiologist and critical care that requested your imaging first. ? Electronically signed by: David Jack MD, [facility] ([phone]), at 10/14/2023 5:08 PM Narrative 10/14/2023 5:08 PM EDT EXAMINATION: NM [...] patients who have questions please contactthe health anesthesiologist and critical care that requested your imaging first. Electronically signed by: David Jack MD, [facility]([phone]), at 10/14/2023 5:08 PM Kavitha Rai MD IM NM ORDERABLES documented in this encounter Visit Diagnoses Diagnosis Malignant neoplasm of overlapping sites of right breast in female, estrogen receptor negative Deformity of nail bed Gastroesophageal reflux disease, unspecified whether esophagitis present documented in this encounter Administered Medications Inactive Administered Medications - up to 3 most recent administrations Medication Order MAR Action Action Date Dose Rate Site technetium (Tc-99m) methylene diphosphonate (MDP) injection 0-30 mCi 0-30 mCi, Intravenous, ONCE PRN, 1 dose, Starting on Tue10/14/23 at 1109, Until Tue10/14/23 at 1100, Per Protocol, Radiology Contrast, Routine Given 10/14/2023 11:00 AM EDT 26.2 mCi documented in this encounter Care Teams Dredge Mate Relationship Specialty Start Date End Date Ryan Betancourt MD [address] [place] [phone] PCP - General Family Medicine 07/29/22 documented as of this encounter
--- OUTSIDE RECORDS SUMMARY | 2024-06-01 20:39 | XMS_ITS | Encounter Summary ---
Author Organization [facility] [place] [address] Care Team Providers Care Associate Dean Of Students Name Role Phone Ryan Betancourt MD Primary Care Provider [phone] Reason for Visit * Reason Comments Chemotherapy Phesgo * Treatment/Therapy Plan Authorization (Routine) - Closed Specialty Diagnoses / Procedures Referred By Ciaran lopez Referred To Contact Diagnoses Malignant neoplasm of overlapping sites of right breast in female, estrogen receptor negative Procedures -PHESGO (PERTUZUMAB TRASTUZUMAB & HYALURONIDASE-ZZXF) Kavitha Rai MD [facility] DR HEMATOLOGY [place] [address] [facility] Hem [facility]c [address] [place] [address] Referral ID Status Reason Start Date Expiration Date Visits Re quested Visits Authorized [id number] Closed 04/07/2023 04/06/2024 1 106 Encounter Details Date Type Department Care Team (Latest Contact Info) Description 09/01/2023 12:23 PM EDT - 09/01/2023 11:59 PM EDT Hospital Encounter Hematology [place] [address] Malignant neoplasm of overlapping sites [...] Sig Dispensed Refills Start Date End Date prochlorperazine (Compazine) 10 mg tablet Take 1 tablet by mouth every 6 hours as needed for Nausea. 30 tablet 3 10/04/2022 multivitamin Capsule Take 1 capsule by mouth daily. betamethasone dipropionate (Diprolene) 0.05 % Cream Apply topically 2 times daily. 30 g 08/25/2022 omeprazole (PriLOSEC) [address] capsuleIndications:Clara loyd neoplasm of overlapping sites of right breast in female, estrogen receptor negative,Deformity of nail bed,Gastroesophageal reflux disease, unspecified whether esophagitis present Take 1 capsule by mouth daily. 30 capsule 5 01/13/2023 09/22/2023 ketoconazole (Nizoral) 2 % Cream Mix equal [...] as of this encounter Progress Notes * Roberto Norton RN - 09/01/2023 4:42 PM EDT Patient Name: Soy San Patient Age: 42 y.o. Birthdate: 1980 Admit date: 09/01/2023 Attending Physician: No att. providers found TIME TREATMENT STARTED: 1500 TIME TREATMENT ENDED: 1600 Soy San, 42 y.o. female with diagnosis of 1. Malignant neoplasm of overlapping sites of right breast in female, estrogen receptor negative is here for chemotherapy injection of Phesgo with 15 mins Obs PROTOCOL: NA CYCLE: 7 DAY: 1 S: Pt. offers no complaints at this time. Chemo checks performed per policy. Reviewed plan of care for Infusion visit, patient verbalized understanding of plan as outlined. Patient discharged to home O: Patient's Chemotherapy orders independently verified for correct drug name, route and dosage perpatient's height, weight and BSA by Roberto Norton RN and Pharmacist. REACTIONS (DESCRIPTION, TIME, INTERVENTION AND EFFECTIVENESS) None noted. A: Pt. Tolerated treatment well. Soy San confirms that all questions and issues have been addressed. P: Return to clinic per routine. documented in this encounter Plan of Treatment Upcoming Encounters Date Type Department Care Team (Late st Contact Info) Description 06/14/2024 8:00 AM EST Hospital Encounter [place] [address] Consuelo Joyce APRN [facility] [place] [address] 06/14/2024 8:45 AM EST Appointment XRay at [address] [place] [address] Kavitha Rai MD [facility] DR HEMATOLOGY [place] [address] 06/14/2024 9:45 AM EST Appointment Hematology and Oncology at [place] [phone] 06/14/2024 11:00 AM EST Appointment [place] [address] Consuelo Joyce APRN [facility] [place] [address] 06/14/2024 1:00 PM EST Office Visit Hematology [place] [address] Kavitha Rai MD [facility] DR HEMATOLOGY [place] [address] 06/14/2024 2:30 PM EST Appointment Hematology [place] [address] 07/05/2024 10:30 AM EDT Appointment Hematology [place] [address] 07/05/2024 11:30 AM EDT Office Visit Hematology [place] [address] Consuelo Joyce APRN [facility] [place] [address] 07/05/2024 1:00 PM EDT Appointment Hematology [place] [address] 08/16/2024 9:20 AM EDT Office [place] [phone] Luz Jose, OD [facility] [place] [address] 01/14/2025 8:30 AM EDT Office Visit Psychiatry [place] [phone] Anna Oneill, PhD [facility] [place] [address] documented as of this encounter Visit Diagnoses Diagnosis Malignant neoplasm of overlapping sites of right breast in female, estrogen receptor negative documented in this encounter Administered Medications Inactive Administered Medications - up to 3 most recent administrations Medication Order MAR Action Action Date Dose Rate Site PERTuzumab, TRASTuzumab and hyaluronidase-zzxf (Phesgo) (600 mg-600 mg-20,000 units per 10 mL) subcutaneous injection 1,200 mg 1,200 mg, Subcutaneous, Administer over 5 Minutes, ONCE, 1 dose, On Yvette 09/01/23 at 1615, Observe patients for infusion-related reactions for a [...] being given as an outpatient? Yes Given 09/01/2023 3:33 PM EDT 1,200 mg sodium chloride 0.9 % (flush) (BD PosiFlush Normal Saline 0.9) flush 5-20 mL 5-20 mL, Intravenous, EVERY 1 MIN PRN, Starting on Yvette 5/16/24 at 1231, Until 09/02/23 at 0435, Line Care, Flush pertains to all indwelling lines. Flush per protocol found in the job aid using the link provided on this medication record. Refer to Intravenous (IV) Job Aid: Adult Flushing & Catheter Care (0808) job aid for additional information regarding guidelines and administration., Routine Given 09/01/2023 4:05 PM EDT 20 mLs Given 09/01/2023 12:47 PM EDT 20 mLs documented in this encounter Care Teams Associate Dean Of Students Relationship Specialty Start Date End Date Ryan Betancourt MD [address] [place] [phone] PCP - General Family Medicine 07/29/22 documented as of this encounter
--- OUTSIDE RECORDS SUMMARY | 2024-06-01 20:39 | XMS_ITS | Encounter Summary ---
Author Organization [facility] [place] [address] Care Team Providers Care Senior Health Consultant Name Role Phone Ryan Betancourt MD Primary Care Provider [phone] Reason for Referral * Diagnostic Test (Routine) - Closed Specialty Diagnoses / Procedures Referred By Contdede t Referred To Contact Cardiology Diagnoses Malignant neoplasm of overlapping sites of right breast in female, estrogen receptor negative Carcinoma of breast metastatic to bone, unspecified laterality Procedures Echocardiogram Transthoracic Peggy Perez APRN [facility] [place] [address] [facility] [place] [address] Referral ID Status Reason Start Date Expiration Date V isits Requested Visits Authorized [id number] Closed Specialty Service Requested 10/14/2023 12/12/2023 1 1 Reason for Visit * Reason Comments Follow-up Encounter Details Date Type Department Care Team (Late st Contact Info) Description 10/13/2023 1:00 PM EDT Office Visit Hematology [place] [address] Peggy Perez APRN [facility] [place] [address] Malignant neoplasm of overlapping sites [...] Sign Reading Time Taken Comments Blood Pressure 127/84 10/13/2023 12:37 PM EDT Pulse 76 10/13/2023 12:37 PM EDT Temperature 36.7 ??C (98.1 ??F) 10/13/2023 1 2:37 PM EDT Respiratory Rate 20 10/13/2023 12:3 7 PM EDT Oxygen Saturation 100% 10/13/2023 12: 37 PM EDT Inhaled Oxygen Concentration - - Weight 111.9 kg (246 lb 11.1 oz) 2023 12:37 PM EDT Height 163.1 cm (5' 4.2) 10/13/2023 12 :37 PM EDT Body Mass Index 42.08 10/13/2023 12:37 PM EDT documented in this encounter Progress Notes * Peggy Perez APRN - 10/13/2023 1:25 PM EDT Not replacing K today. * Peggy Perez APRN - 10/13/2023 1:00 PM EDT Patient ID: Soy San [...] plan for every 6 weeks started 02/24/2023. 10/13/2023 On Phesgo q 3 weeks and [...] most 3 x per cycle Going to [place] for vacation. 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 PET CT [...] breast in the shower. Subsequently called [facility] woman wellness, seen that day. 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 New breast findings concerning for recurrent local disease however last imaging 06/2023 looks good with sustained response. Breast Cancer: on H&P as Phesgo. OK for Phesgo today - Excellent clinical response with decreasing markers and initial resolved breast mass. Now progressive breast changes suspicious for recurrence. Derm for skin biopsy of breast done today (10/12) pending results EOD: CT CAP, BS and MRI of breasts ordered for tomorrow. Echo for monitoring due, order placed today will try to get scheduled with next cycle. 2. 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 However will order MRI of head. 3. Continue denosumab q6w -order signed for today. Some confusion over q12 or 4 week regiment. Prefer q4 week however [facility] and make it q6 week. 4. Primary breast surgical consultation: Not recommended ( breast tumor board 02/22/2023 and surgeon) a 3. RTC 3 weeks for MD/BICYCLE SUBASSEMBLER visit , Phesgo, labs Total time spent: 40 minutes with > 50% spend in discussion of above Future Appointments Date Time Provider Department Center 10/13/2023 2:30 PM [facility] INFUSION THERAPY [facility] INF 3K [facility] 10/14/2023 11:00 AM [facility] NM ELIZA MH Nuc Med [facility] 10/14/2023 1:[address] [facility] [address] [facility] [address] [facility] 10/14/2023 2:00 PM [facility] NM ROOM 3 MH Nuc Med [facility] 10/14/2023 5:30 PM [facility] MR 1 MH MRI [facility] documented in this encounter Plan of Treatment Upcoming Encounters Date Type Department Care Team (Late st Contact Info) Description 06/14/2024 8:00 AM EST Hospital Encounter [place] [phone] Peggy Perez APRN [facility] [place] [address] 06/14/2024 8:45 AM EST Appointment XRay at [address] [place] [address] Kavitha Rai MD [facility] DR [place] [address] 06/14/2024 9:45 AM EST Appointment Hematology [place] [address] 06/14/2024 11:00 AM EST Appointment [place] [address] Peggy Perez APRN [facility] [place] [address] 06/14/2024 1:00 PM EST Office Visit Hematology [place] [phone] Kavitha Rai MD [facility] DR [place] [address] 06/14/2024 2:30 PM EST Appointment Hematology [place] [address] 07/05/2024 10:30 AM EDT Appointment Hematology and Oncology at [place] [phone] 07/05/2024 11:30 AM EDT Office Visit Hematology [place] [address] Peggy Perez APRN [facility] [place] [address] 07/05/2024 1:00 PM EDT Appointment Hematology and Oncology at [place] [phone] 08/16/2024 9:20 AM EDT Office Visit Ophthalmology at [place] [phone] Luz Jose, OD [facility] [place] [address] 01/14/2025 8:30 AM EDT Office Visit Psychiatry and Behavioral Health at [place] [phone] Anna Oneill, PhD [facility] [place] [address] documented as of this encounter Results * ECHO COMPLETE (10/26/2023 11:14 AM EDT) Pathologist [facility] EF 62 HEARTLAB SYSTEM Anatomical Region Laterality Modality Cardiac Other 10/26/2023 10:0 1 AM EDT Narrative 10/26/2023 1:10 PM EDT [address] [place] [address] ? Echocardiogram Report Name: SOY SAN ?Study Date: 10/26/2023 10:01 AMBP: 150/101 mmHg ? Patient Location: 4A : 1980 ? Height: 163 cm ? Account: [id number] Age: 42 yrs ? Weight: 112 kg Gender: Female ?BSA: 2.1 m2 Ordering Physician: PEGGY PEREZ Referring Physician: PEGGY PEREZ Performed By: LAVELL Espinal Reason For Study: Carcinoma of breast metastatic to bone Exam Location: [facility]. Interpretation Summary 1. The left ventricle is [...] GLS is now -15.3% from -17.0%. Procedure Complete-[id number]. Satisfactory quality. There is normal sinus rhythm. [...] Procedure Note Brielle Feng MD - 10/26/[address] [place] [address] Echocardiogram Report Name: SOY SAN Study Date: 0:01 AMBP: 150/101 mmHg Patient Location: : 1980 Height: 163 cm Account: [id number] Age: 42 yrs Weight: 112 kg Gender: Female BSA: 2.1 m2 Ordering Physician: PEGGY PEREZ Referring Physician: PEGGY PEREZ Performed By: LAVELL Espinal Reason For Study: Carcinoma of breast metastatic to bone Exam Location: [facility]. Interpretation Summary 1. The left ventricle is normal in size and function. LVE is 62% bySimpson's biplane. GLS is -15.3%. 2. The right ventricle is normal in size and function. PASP estimated at24 mmHg, assuming RAP of 8 mmHg. 3. The atria appear normal. 4. The valves are structurally and functionally normal. 5. See body of report for additional details. Findings are similar [facility] study dated 03/17/23. GLS is now -15.3% from -17.0%. Procedure Complete-[id number]. Satisfactory quality. There is normal sinus rhythm. [...] 5 - 6-14large Aneurysmal 15-16diffuse Peggy Perez APRN ECHO ORDERABLES documented in this encounter Visit Diagnoses Diagnosis Malignant neoplasm of overlapping sites of right breast in female, estrogen receptor negative Carcinoma of breast metastatic to bone, unspecified laterality Medication management Encounter for long-term (current) use of other medications HER2-positive carcinoma of breast Malignant neoplasm of overlapping sites of right breast in female, estrogen receptor negative Carcinoma of breast metastatic to bone, unspecified laterality documented in this encounter Care Teams Senior Health Consultant Relationship Specialty Start Date End Date Ryan Betancourt MD [address] [place] [phone] PCP - General Family Medicine 07/29/22 documented as of this encounter
--- OUTSIDE RECORDS SUMMARY | 2024-06-01 20:39 | XMS_ITS | Encounter Summary ---
Author Organization [facility] [place] [address] Care Team Providers Care Revival Clerk Name Role Phone Ryan Betancourt MD Primary Care Provider [phone] Reason for Visit * Treatment/Therapy Plan Authorization (Routine) - Closed Specialty Diagnoses / Procedures Referred By Ciaran lopez Referred To Contact Diagnoses Malignant neoplasm of overlapping sites of right breast in female, estrogen receptor negative Procedures -PHESGO (PERTUZUMAB TRASTUZUMAB & HYALURONIDASE-ZZXF) Kavitha Rai MD [facility] DR HEMATOLOGY [place] [address] [facility] Hem Onc [address] [place] [address] Referral ID Status Reason Start Date Expiration Date Visits Re quested Visits Authorized [id number] Closed 04/07/2023 04/06/2024 1 106 Encounter Details Date Type Department Care Team (Latest Contact Info) Description 10/13/2023 11:11 AM EDT - 10/13/2023 11:59 PM EDT Hospital Encounter Hematology [place] [address] Malignant neoplasm of overlapping sites [...] as of this encounter Progress Notes * Minh De León RN - 10/13/2023 2:58 PM EDT Patient Name: Soy San Patient Age: 42 y.o. Birthdate: 1980 Admit date: 10/13/2023 Attending Physician: No att. providers found Soy San, 42 y.o. female with diagnosis of 1. Malignant neoplasm of overlapping sites of right breast in female, estrogen receptor negative is here for chemotherapy infusion of Phesgo. PROTOCOL: N/a CYCLE: 9 WEEK: N/a DAY: 1 Treatment start time: 1417 Treatment end time: 1500 S: Pt. offers no complaints at this time. O: Chemotherapy orders independently verified for correct drug name, route and dosage per patient'sheight, weight and BSA by this RN and onsite pharmacist REACTIONS (DESCRIPTION, TIME, INTERVENTION AND EFFECTIVENESS) None reported A: Pt. Tolerated treatment well. Soy San confirms that all questions and issues have been addressed. P: Return to clinic per protocol documented in this encounter Miscellaneous Notes * Addendum Note - Minh De León, RN - 10/13/2023 3:27 PM EDTEncounter addended by: Minh De León, RN on: 10/13/2023 3:27 PM Actions taken: Flowsheet accepted documented in this encounter Plan of Treatment Upcoming Encounters Date Type Department Care Team (Late st Contact Info) Description 06/14/2024 8:00 AM EST Hospital Encounter [place] [address] Consuelo Joyce [facility] [place] [address] 06/14/2024 8:45 AM EST Appointment XRay at [address] [place] [address] Kavitha Rai MD [facility] DR HEMATOLOGY [place] [address] 06/14/2024 9:45 AM EST Appointment Hematology [place] [address] 06/14/2024 11:00 AM EST Appointment [place] [address] Consuelo Joyce [facility] [place] [address] 06/14/2024 1:00 PM EST Office Visit Hematology [place] [address] Kavitha Rai MD [facility] DR HEMATOLOGY [place] [address] 06/14/2024 2:30 PM EST Appointment Hematology [place] [address] 07/05/2024 10:30 AM EDT Appointment Hematology [place] [address] 07/05/2024 11:30 AM EDT Office Visit Hematology and Oncology at [place] [phone] Consuelo Joyce APRN [facility] [place] [address] 07/05/2024 1:00 PM EDT Appointment Hematology [place] [address] 08/16/2024 9:20 AM EDT Office Visit Ophthalmology at [place] [address] Luz Jose, [facility]SON [facility] [place] [address] 01/14/2025 8:30 AM EDT Office Visit Psychiatry and Behavioral Health at [place] [address] Anna Oneill, PhD [facility] [place] [address] documented as of this encounter Visit Diagnoses [...] 5 Minutes, ONCE, 1 dose, On Yvette 10/13/23 at 1500, Observe patients for infusion-related reactions for a [...] being given as an outpatient? Yes Given 10/13/2023 2:30 PM EDT 1,200 mg documented in this encounter Care Teams Revival Clerk Relationship Specialty Start Date End Date Ryan Betancourt MD [address] [place] [phone] PCP - General Family Medicine 07/29/22 documented as of this encounter
--- OUTSIDE RECORDS SUMMARY | 2024-06-01 20:39 | XMS_ITS | Encounter Summary ---
[place] [address] Care Team Providers Care Warehouse Packer Name Role Phone Ryan Betancourt MD Primary Care Provider [phone] Reason for Visit * Reason Onset Date Comments Follow-up 08/30/2023 local ED visit Encounter Details Date Type Department Care Team (Late st Contact Info) Description 08/30/2023 Telephone Hematology [place] [phone] Madeline Verdugo, RN Follow-up (local ED visit) Social History Tobacco Use Types Packs/Day Years [...] encounter Miscellaneous Notes * Telephone Encounter - Madeline Verdugo RN - 08/30/2023 11:29 AM EDT Summary: follow up local ED visit Follow up 08/26 local ED visit Call placed to patient and spoke to Soo. Tuesday AM she woke up and was super dizzy. Head and roomspinning. No nausea. If she moved at all she would get vertigo. Lasted for a few hours. Called the on-call oncologist. Tuesday she still had a little bit of it but it was better so she did not go to the ED. Today has some this afternoon. She sees us in 2 days and will discuss with provider. Discussed reasons to report to PCP, urgent care or ED like return of severe vertigo. Unexplained. dizziness. Soo requests a letter from her. Stating that she has stage 4 breast cancer. And will be undergoing tx and has been selected for jury duty. Needs hard copy and send via [employer] and give to patient at next visit. Jury duty letter written and pended to provider via [employer] e-sign for review and signature if in agreement. Letter sent to patient via [employer] message. Copy mailed via [employer] 09/05. documented in this encounter Plan of Treatment Upcoming Encounters Date Type Department Care Team (Late st Contact Info) Description 06/14/2024 8:00 AM [facility] Hospital Encounter [place] [address] Consuelo Joyce APRN [facility] [place] [address] 06/14/2024 8:45 AM EST Appointment XRay at [address] [place] [address] Kavitha Rai MD [facility] DR HEMATOLOGY [place] [address] 06/14/2024 9:45 AM EST Appointment Hematology and Oncology at [place] [phone] 06/14/2024 11:00 AM EST Appointment [place] [address] Consuelo Joyce APRN [facility] [place] [address] 06/14/2024 1:00 PM EST Office Visit Hematology [place] [address] Kavitha Rai MD [facility] DR HEMATOLOG[place] [address] 06/14/2024 2:30 PM EST Appointment Hematology [place] [address] 07/05/2024 10:30 AM EDT Appointment Hematology [place] [address] 07/05/2024 11:30 AM EDT Office Visit Hematology [place] [address] Consuelo Joyce APRN [facility] [place] [address] 07/05/2024 1:00 PM EDT Appointment Hematology [place] [phone] 08/16/2024 9:20 AM EDT Office Visit Ophthalmology at [place] [phone] Luz Jose, CARSON [facility] [place] [address] 01/14/2025 8:30 AM EDT Office Visit Psychiatry and Behavioral Health at [place] [phone] Anna Oneill, PhD [facility] [place] [address] documented as of this encounter Visit Diagnoses Not on filedocumented in this encounter Care Teams Warehouse Packer Relationship Specialty Start Date End Date Ryan Betancourt MD [address] [place] [phone] PCP - General Family Medicine 07/29/22 documented as of this encounter
--- OUTSIDE RECORDS SUMMARY | 2024-06-01 20:39 | XMS_ITS | Encounter Summary ---
[place] [address] Care Team Providers Care Ocean Lifeguard Name Role Phone Rayn Betancourt MD Primary Care Provider [phone] Reason for Referral * Diagnostic Test (Routine) - Closed Specialty Diagnoses / Procedures Referred By Ciaran lopez Referred To Contact Radiology Diagnoses Malignant neoplasm of overlapping sites of right breast in female, estrogen receptor negative Procedures MRI Brain wwo Contrast (Generic) Kavitha Rai MD [facility] DR HEMATOLOGY [place] [address] [place] [address] Referral ID Status Reason Start Date Expiration Date V isits Requested Visits Authorized [id number] Closed Specialty Service Requested 09/01/2023 03/03/2025 1 1 Reason for Visit * Diagnostic Test (Routine) - Closed Specialty Diagnoses / Procedures Referred By Ciaran lopez Referred To Contact Radiology Diagnoses Malignant neoplasm of overlapping sites of right breast in female, estrogen receptor negative Procedures MRI Brain wwo Contrast (Generic) Kavitha Rai MD [facility] DR HEMATOLOGY [place] [address] [place] [address] Referral ID Status Reason Start Date Expiration Date V isits Requested Visits Authorized [id number] Closed Specialty Service Requested 09/01/2023 03/03/2025 1 1 Encounter Details Date Type Department Care Team (Latest Contact Info) Description 09/21/2023 2:56 PM EDT - 09/21/2023 11:59 PM EDT Hospital Encounter MRI at [facility] [place] [address] Kavitha Rai MD [facility] [place] [address] Malignant neoplasm of overlapping sites of right [...] g 08/25/2022 omeprazole (PriLOSEC) [address] de la vegaIndications:Clara loyd neoplasm of overlapping sites of right [...] AM EST Hospital Encounter [place] [address] Consuelo Joyce APRN [facility] [place] [address] 06/14/2024 8:45 AM EST Appointment XRay at [address] [place] [phone] Kavitha Rai MD [facility] [place] [address] 06/14/2024 9:45 AM EST Appointment Hematology and Oncology at [address] 06/14/2024 11:00 AM EST Appointment Nuclear Medicine at [place] [address] Consuelo Joyce APRN [facility] [place] [address] 06/14/2024 1:00 PM EST Office Visit Hematology and Oncology at [address] Kavitha Rai MD [facility] [address] [place] [address] 06/14/2024 2:30 PM EST Appointment Hematology and Oncology at [place] [phone] 07/05/2024 10:30 AM EDT Appointment Hematology and Oncology at [place] [address] 07/05/2024 11:30 AM EDT Office Visit Hematology and Oncology at [place] [phone] Consuelo Joyce [facility] [place] [address] 07/05/2024 1:00 PM EDT Appointment Hematology and Oncology at [place] [phone] 08/16/2024 9:20 AM EDT Office Visit Ophthalmology at [place] [phone] Luz Jose OD [facility] [place] [address] 01/14/2025 8:30 AM EDT Office Visit Psychiatry [place] [address] Anna Oneill, PhD [facility] [place] [address] documented as of this encounter Procedures Procedure Name Priority Date/Time Associated Diagnosis Comments MRI BRAIN WWO CONTRAST (GENERIC) Routine 09/21/2023 5:29 PM EDT Malignant neoplasm of overlapping sites of right breast in female, estrogen receptor negative documented in this encounter Results * MRI Brain wwo Contrast (Generic) (09/21/2023 5:29 PM EDT) [employer] Signature WORKSTATION ID [id number] RAD Anatomical Region Laterality Modality Head Magnetic Resonan ce Impressions 09/23/2023 11:24 AM EDT No intracranial metastases. Normal evaluation. I have personally reviewed the image(s) and the resident's interpretation and agree with the findings, Anyi Vazquez at 09/23/2023 11:24 AM Thank you for letting us participate in the care of this patient. ??If you are a health care provider and have any questions regarding this report, please contact the number below. ??For patients who have questions please contact the health managed care nurse that requested your imaging first. ? Narrative 09/23/2023 11:24 AM EDT EXAMINATION: MRI BRAIN WWO CONTRAST (GENERIC) CLINICAL HISTORY: stage 4 breast cancer with vertigo. Suspect BPV but has a her 2 alexa pos BC that has high risk of brain mets. C50.811, Malignant neoplasm of overlapping sites of right female breast - Z17.1, Estrogen receptor negative status (ER-) TECHNIQUE: MRI of the brain was performed before and after the intravenous administration of 22cc Dotarem. COMPARISON: MRI brain 09/24/2022 FINDINGS: No abnormality on diffusion-weighted or susceptibility weighted imaging. No abnormal intracranial enhancement, mass, or mass effect. No suspicious parenchymal signal abnormality. Ventricles and basal cisterns are normal. Vascular flow voids are normal. Orbital contents are grossly normal. Mastoid air cells and paranasal sinuses are essentially clear. No calvarial marrow space or extracalvarial soft tissue abnormality. Procedure Note Anyi Vazquez MD - 09/23/2023 EXAMINATION: MRI BRAIN WWO CONTRAST (GENERIC) CLINICAL HISTORY: stage 4 breast cancer with vertigo. Suspect BPV but hasa her 2 alexa pos BC that has high risk of brain mets. C50.811, Malignant neoplasm of overlapping sites of right female breast -Z17.1, Estrogen receptor negative status (ER-) TECHNIQUE: MRI of the brain was performed before and after the intravenousadministration of 22cc Dotarem. COMPARISON: MRI brain 09/24/2022 FINDINGS: No abnormality on diffusion-weighted or susceptibility weighted imaging.No abnormal intracranial enhancement, mass, or mass effect. No suspicious parenchymal signal abnormality. Ventricles and basal cisterns arenormal. Vascular flow voids are normal. Orbital contents are grossly normal.Mastoid air cells and paranasal sinuses are essentially clear. No calvarial marrowspace or extracalvarial soft tissue abnormality. IMPRESSION No intracranial metastases. Normal evaluation. I have personally reviewed the image(s) and the resident's interpretationand agree with the findings, Anyi Vazquez at 09/23/2023 11:24 AM Thank you for letting us participate in the care of this patient. If youare a health care provider and have any questions regarding this report,please contact the number below. For patients who have questions please contactthe health managed care nurse that requested your imaging first. Kavitha Rai MD IMG MRI ORDERABLES documented [...] Intravenous, ONCE PRN, 1 dose, Starting on Tue09/21/23 at 1728, Until Tue09/21/23 at 1729, Per Protocol, Radiology Contrast, Routine Given 09/21/2023 5:29 PM EDT 22 mLs documented in this encounter Care Teams Ocean Lifeguard Relationship Specialty Start Date End Date Ryan Betancourt MD [address] [place] [phone] PCP - General Family Medicine 07/29/22 documented as of this encounter
--- OUTSIDE RECORDS SUMMARY | 2024-06-01 20:39 | XMS_ITS | Encounter Summary ---
[place] [address] Care Team Providers Care Integrated Circuit Layout Designer Name Role Phone Ryan Betancourt MD Primary Care Provider [phone] Encounter Details Date Type Department Care Team (Latest Contact Info) Description 10/13/2023 11:11 AM EDT - 10/13/2023 11:59 PM EDT Hospital Encounter Hematology [place] [phone] Malignant neoplasm of overlapping sites of right [...] Progress Notes * Fabi Gilbert RN - 10/13/2023 12:11 PM EDT Patient Name: Soy San Patient Age: 42 y.o. Birthdate: 1980 Admit date: 10/13/2023 Attending Physician: No att. providers found Access visit. See MAR and/or flowsheet. documented in this encounter Plan of Treatment Upcoming Encounters Date Type Department Care Team (Late st Contact Info) Description 06/14/2024 8:00 AM EST Hospital Encounter [place] [phone] Consuelo Joyce [facility] [place] [address] 06/14/2024 8:45 AM EST Appointment XRay at [address] [place] [address] Kavitha Rai MD [facility] DR [place] [address] 06/14/2024 9:45 AM EST Appointment Hematology [place] [address] 06/14/2024 11:00 AM EST Appointment [place] [phone] Consuelo Joyce [facility] [place] [address] 06/14/2024 1:00 PM EST Office Visit Hematology [place] [address] Kavitha Rai MD [facility] DR HEMATOLOGY [place] [address] 06/14/2024 2:30 PM EST Appointment Hematology [place] [phone] 07/05/2024 10:30 AM EDT Appointment Hematology and Oncology at [place] [phone] 07/05/2024 11:30 AM EDT Office Visit Hematology and Oncology at [place] [phone] Consuelo Joyce APRN [facility] [place] [address] 07/05/2024 1:00 PM EDT Appointment Hematology [place] [address] 08/16/2024 9:20 AM EDT Office Visit Ophthalmology at [place] [phone] Luz Jose OD [facility] [place] [address] 01/14/2025 8:30 AM EDT Office Visit Psychiatry and Behavioral Health at [place] [phone] Anna Oneill, PhD [facility] [place] [address] documented as of this encounter Procedures Procedure Name Priority Date/Time Associated Diagnosis Comments HEMOGRAM STAT 10/13/2023 12:00 PM EDT Malignant neoplasm of overlapping sites of right breast in female, estrogen receptor negative DIFFERENTIAL, AUTOMATED STAT 10/13/2023 12:00 PM EDT Malignant neoplasm of overlapping sites of right breast in female, estrogen receptor negative CANCER ANTIGEN 15-3 STAT 10/13/2023 1 2:00 PM EDT Malignant neoplasm of overlapping sites of right breast in female, estrogen receptor negative CBC (WITH DIFF) STAT 10/13/2023 12:00 PM EDT Malignant neoplasm of overlapping sites of right breast in female, estrogen receptor negative CEA Routine 10/13/2023 12:00 PM EDT Malignant neoplasm of overlapping sites of right breast in female, estrogen receptor negative COMPREHENSIVE METABOLIC PANEL STAT 10/13/2023 12:00 PM EDT Malignant neoplasm of overlapping sites of right breast in female, estrogen receptor negative documented in this encounter Results * (ABNORMAL) Differential, Automated (10/13/2023 12:00 PM EDT) Neutrophil % 66.8 % [facility] Neutrophil Absolute 4.55 1.70 - 6.10 x10(3)/mc L [facility] Lymph % 27.4 % [facility] Lymphocytes Abs 1.9 0.9 - 3.2 x10(3)/mc L [facility] Monocyte % 3.4 % [facility] Monocyte Abs 0.2(L) 0.3 - 0.9 x10(3)/mc L [facility] Eos % 1.8 % [facility] Eosinophils Abs 0.1 0.0 - 0.4 x10(3)/mc L [facility] Basophil % 0.3 % [facility] Baso Absolute 0.0 0.0 - 0.1 x10(3)/mc L [facility] Immature Gran % 0.30 % [facility] Comment: Immature granulocytes(IG's)percentage and absolute count will include metamyelocytes, myelocytes, and promyelocytes. Blood smears from CBCs yielding IG's will be scanned manually for concordance. If this scan disagrees with the automated IG or if promyelocytes are noted, a manual differential will be performed. Immature Gran Absolute 0.02 0.00 - 0.04 x10(3)/mc L [facility] Blood 10/13/2023 12:0 0 PM EDT 10/13/2023 12:08 PM EDT Narrative Resulting Agency Comment Spec In Lab Kavitha Rai MD HEMATOLOGY ORDERABLE S [facility] [place] [address] * Hemogram (10/13/2023 12:00 PM EDT) White Blood Cell 6.8 4.0 - 9.5 x10(3)/[facility] Red Blood Cell 4.72 4.00 - 5.21 x10(6)/[facility] Hemoglobin 13.3 11.7 - 15.5 g/dL [facility] Hematocrit 39.2 35.7 - 45.8 % [facility] Mean Cell Volume 83.1 82.6 - 94.4 fL [facility] Mean Cell Hemoglobin 28.2 27.1 - 32.0 pg [facility] Mean Cell Hemoglobin Concentration 33.9 31.7 - 35.0 g/dL [facility] Platelet 242 145 - 357 x10(3)/[facility] RDW Standard Deviation 41.3 37.0 - 46.0 [facility] RDW coefficient of variation 13.7 11.5 - 14.1 % [facility] Mean Platelet Volume 10.1 7.6 - 12.9 fL [facility] NRBC% auto 0.0 % [facility] NRBC Absolute 0.000 0.000 - 0.000 x10(3)/[facility] Blood 10/13/2023 12:0 0 PM EDT 10/13/2023 12:08 PM EDT Narrative Resulting Agency Comment Spec In Lab Kavitha Rai MD HEMATOLOGY ORDERABLE S [facility] [place] [address] * CEA (10/13/2023 12:00 PM EDT) Carcinoembryonic Antigen 2.4 <=3.8 ng/mL [facility] Comment: Reference range: ??(20-69 years): Non-smoker: ??less than or equal to 3.8 ng/mL Smoker: ??less than 5.5 ng/ml This result was generated using a Deepak Dequan immunoassay. ??Results obtained from other methods or manufacturers cannot be used interchangeably with this method. Blood 10/13/2023 12:0 0 PM EDT 10/13/2023 12:08 PM EDT Narrative Resulting Agency Comment Spec In Lab Consuelo Gerardo Joyce APRN CHEMISTRY ORDERABLE S Performing Organization Address [facility]/ZIP Co de Phone Number [facility] [place] [address] * (ABNORMAL) Cancer antigen 15-3 (10/13/2023 12:00 PM EDT) CA 15-3 28(H) <=25 unit/mL [facility] Comment: This result was generated using a Deepak Dequan immunoassay. ??Results obtained from other methods or manufacturers cannot be used interchangeably with this method. Blood 10/13/2023 12:0 0 PM EDT 10/13/2023 12:08 PM EDT Narrative Resulting Agency Comment Spec In Lab Kavitha Rai MD CHEMISTRY ORDERABLES Performing Organization Address City/[facility]/ZIP Co de Phone Number [facility] [place] [address] * (ABNORMAL) Comprehensive metabolic panel (non-fasting) (10/13/2023 12:00 PM EDT) Glucose 120 65 - 199 mg/dL [facility] Comment:Diabetes: >=200 mg/d L plus symptoms Blood Urea Nitrogen 10 8 - 18 mg/dL [facility] Creatinine 0.73 0.70 - 1.20 mg/dL [facility] Sodium 139 135 - 145 mmol/L [facility] Potassium 3.4(L) 3.5 - 5.0 mmol/L [facility] Comment: Please note: ??Patients with WBC >100,000 may have falsely elevated Potassium levels. ??For accurate Potassium quantification in these patients send serum separator tube (gold top) for subsequent determinations. ??Contact the Clinical Chemistry Laboratory if there are any questions. Chloride 106 98 - 107 mmol/L [facility] Carbon Dioxide 23 22 - 31 mmol/L [facility] Anion Gap 10 5 - 15 mmol/L [facility] Calcium 9.0 8.5 - 10.5 mg/dL [facility] Protein, Total 6.7 6.1 - 8.0 g/dL [facility] Albumin 4.0 3.2 - 5.2 g/dL [facility] Aspartate Aminotransferase 12 0 - 30 unit/L [facility] Alanine Aminotransferase 22 0 - 30 unit/L [facility] Alkaline Phosphatase 67 35 - 105 unit/L [facility] Bilirubin, Total 0.3 0.2 - 1.3 mg/dL [facility] Est Glomerular Filtration Rate 104 >=60 mL/min/1. 73 m?? [facility] Comment: This patient's estimated GFR [...] and symptoms in addition to eGFR. Blood 10/13/2023 12:0 0 PM EDT 10/13/2023 12:08 PM EDT Narrative Resulting Agency Comment Spec In Lab Kavitha Rai MD CHEMISTRY ORDERABLES [facility] [place] [address] documented in this encounter Visit Diagnoses Diagnosis Malignant neoplasm of overlapping sites of right breast in female, estrogen receptor negative documented in this encounter Care Teams Integrated Circuit Layout Designer Relationship Specialty Start Date End Date Ryan Betancourt MD [address] [place] [phone] PCP - General Family Medicine 07/29/22 documented as of this encounter
--- OUTSIDE RECORDS SUMMARY | 2024-06-01 20:39 | XMS_ITS | Encounter Summary ---
Author Organization [place] [address] Care Team Providers Care Demurrage Agent Name Role Phone Ryan Betancourt MD Primary Care Provider Reason for Visit * Treatment/Therapy Plan Authorization (Routine) - Closed Specialty Diagnoses / Procedures Referred By Ciaran lopez Referred To Contact Diagnoses Malignant neoplasm of overlapping sites of right breast in female, estrogen receptor negative Procedures -PHESGO (PERTUZUMAB TRASTUZUMAB & HYALURONIDASE-ZZXF) Kavitha Rai MD [facility] DR HEMATOLOGY [place] [address] [facility] Hem Onc [address] [place] [address] Referral ID Status Reason Start Date Expiration Date Visits Re quested Visits Authorized [id number] Closed 04/07/2023 04/06/2024 1 106 Encounter Details Date Type Department Care Team (Latest Contact Info) Description 09/22/2023 11:50 AM EDT - 09/22/2023 11:59 PM EDT Hospital Encounter [place]ematology [place] [address] Malignant neoplasm of overlapping sites [...] End Date omeprazole (PriLOSEC) [address] capsuleIndications:Clara gnant neoplasm of overlapping sites of right breast [...] topically 2 times daily. 30 g 08/25/2022 ketoconazole (Nizoral) 2 % Cream Mix equal [...] as of this encounter Progress Notes * Tomasa Serrano RN - 09/22/2023 4:41 PM EDT Patient Name: Soy San Patient Age: 42 y.o. Birthdate: 1980 Admit date: 09/22/2023 Attending Physician: No att. providers found Soy San, 42 y.o. female with diagnosis of 1. Malignant neoplasm of overlapping sites of right breast in female, estrogen receptor negative is here for chemotherapy injection of Phesgo and xgeva injection. PROTOCOL: no CYCLE: 8 DAY: 1 S: Pt. offers no complaints at this time. Reviewed plan of care for infusion visit, patient verbalized understanding of plan as outlined. O: Chemotherapy orders independently verified for correct drug name, route and dosage per patient'sheight, weight and BSA by Tomasa Serrano, YOSEF, pharmacy RN and onsite pharmacist. Chemotherapy administered per protocol. REACTIONS (DESCRIPTION, TIME, INTERVENTION AND EFFECTIVENESS) none A: Pt. Tolerated treatment with out issue. Soy San confirms that all questions and issues have been addressed. P: Return to clinic as scheduled. documented in this encounter Plan of Treatment Upcoming Encounters Date Type Department Care Team (Late st Contact Info) Description 06/14/2024 8:00 AM [facility] Hospital Encounter [place] [phone] Consuelo Joyce APRN [facility] [place] [address] 06/14/2024 8:45 AM EST Appointment XRay at [address] [place] [address] Kavitha Rai MD [facility] DR [place] [address] 06/14/2024 9:45 AM EST Appointment Hematology and Oncology at [place] [phone] 06/14/2024 11:00 AM EST Appointment Nuclear Medicine at [address] Consuelo Joyce [facility] [place] [address] 06/14/2024 1:00 PM EST Office Visit Hematology and Oncology at [place] [phone] Kavitha Rai MD [facility] DR [place] [address] 06/14/2024 2:30 PM EST Appointment Hematology and Oncology at [place] [phone] 07/05/2024 10:30 AM EDT Appointment Hematology [place] [address] 07/05/2024 11:30 AM EDT Office Visit Hematology and Oncology at [place] [phone] Consuelo Joyce [facility] [place] [address] 07/05/2024 1:00 PM EDT Appointment Hematology [place] [phone] 08/16/2024 9:20 AM EDT Office [place] [phone] Luz Jose, OD [facility] [place] [address] 01/14/2025 8:30 AM EDT Office Visit Psychiatry [place] [phone] Anna Oneill, PhD [facility] [place] [address] documented as of this encounter Results * (ABNORMAL) Cancer antigen 15-3 (09/22/2023 12:05 PM EDT) [facility] CA 15-3 28(H) <=25 unit/mL [facility] Comment: This result was generated using a Deepak Dequan immunoassay. ??Results obtained from other methods or manufacturers cannot be used interchangeably with this method. Blood 09/22/2023 12:0 5 PM EDT 09/22/2023 12:36 PM EDT Narrative Resulting Agency Comment Spec In Lab Kavitha Rai MD CHEMISTRY ORDERABLES [facility] [place] [address] * (ABNORMAL) Comprehensive metabolic panel (non-fasting) (09/22/2023 12:05 PM EDT) [facility] Glucose 114 65 - 199 mg/dL [facility] Comment:Diabetes: >=200 mg/d L plus symptoms Blood Urea Nitrogen 14 8 - 18 mg/dL [facility] Creatinine 0.73 0.70 - 1.20 mg/dL [facility] Sodium 141 135 - 145 mmol/L [facility] Potassium 3.4(L) 3.5 - 5.0 mmol/L [facility] Comment: Please note: ??Patients with WBC >100,000 may have falsely elevated Potassium levels. ??For accurate Potassium quantification in these patients send serum separator tube (gold top) for subsequent determinations. ??Contact the Clinical Chemistry Laboratory if there are any questions. Chloride 109(H) 98 - 107 mmol/L [facility] Carbon Dioxide 22 22 - 31 mmol/L [facility] Anion Gap 10 5 - 15 mmol/L [facility] Calcium 9.1 8.5 - 10.5 mg/dL [facility] Protein, Total 6.7 6.1 - 8.0 g/dL [facility] Albumin 3.9 3.2 - 5.2 g/dL [facility] Aspartate Aminotransferase 14 0 - 30 unit/L [facility] Alanine Aminotransferase 19 0 - 30 unit/L [facility] Alkaline Phosphatase 67 35 - 105 unit/L [facility] Bilirubin, Total 0.2 0.2 - 1.3 mg/dL [facility] Est Glomerular Filtration Rate 104 >=60 mL/min/1. 73 m?? [facility] Comment: This patient's estimated [...] and symptoms in addition to eGFR. Blood 09/22/2023 12:0 5 PM EDT 09/22/2023 12:36 PM EDT Narrative Resulting Agency Comment Spec In Lab Kavitha Rai MD CHEMISTRY ORDERABLES [facility] [place] [address] documented in this encounter Visit Diagnoses Diagnosis Malignant neoplasm of overlapping sites of right breast in female, estrogen receptor negative documented in this encounter Administered Medications Inactive Administered Medications - up to 3 most recent administrations Medication Order MAR Action Action Date Dose Rate Site calcium carbonate (TUMS) chewable tablet 500 mg 500 mg, Oral, ONCE, 1 dose, On Yvette 09/22/23 at 1400, Routine Given 09/22/2023 3:48 PM EDT 500 mg denosumab (Xgeva) (120 mg/1.7 mL) subcutaneous injection 120 mg 120 mg, Subcutaneous, ONCE, 1 dose, On Yvette 09/22/23 at 1400, - Bring to room temperature 15-30 minutes before administration. - Call provider for corrected calcium less than 8.5 mg/dL or CrCl less than 30 mL/min., This agent is restricted to outpatient use. Is this drug being given as an outpatient? Yes Given 09/22/2023 3:49 PM EDT 120 mg Left Arm PERTuzumab, TRASTuzumab and hyaluronidase-zzxf (Phesgo) (600 mg-600 mg-20,000 units per 10 mL) subcutaneous injection 1,200 mg 1,200 mg, Subcutaneous, Administer over 5 Minutes, ONCE, 1 dose, On Yvette 09/22/23 at 1500, Observe patients for infusion-related reactions [...] being given as an outpatient? Yes Given 09/22/2023 3:54 PM EDT 1,200 mg Left Quadriceps documented in this encounter Care Teams Demurrage Agent Relationship Specialty Start Date End Date Ryan Betancourt MD [address] [place] [phone] PCP - General Family Medicine 07/29/22 documented as of this encounter
--- OUTSIDE RECORDS SUMMARY | 2024-06-01 20:39 | XMS_ITS | Encounter Summary ---
Author Organization [facility] Address [facility] [address] Care Team Providers Care Template Maker Name Role Phone Ryan Betancourt MD Primary Care Provider [phone] Encounter Details Date Type Department Care Team (Late st Contact Info) Description 08/16/2023 Notes Only Care Management [facility] [place] [phone] Lilian Gipson, ASSEMBLY LEADER Social History Tobacco Use Types Packs/Day Years [...] Progress Notes * Lilian Gipson MSW - 08/16/2023 2:52 PM EDT Per Soo's request for update, I'm able to confirm the status of her sick and injury policy paperwork is in process. Dr. Rai's admin staff is working to complete today; message sent to Soo via [employer]. Completed today: Care Coordination Willow Gipson (Stephanie) [facility] Comprehensive Breast Program [facility] documented in this encounter Plan of Treatment Upcoming Encounters Date Type Department Care Team (Late st Contact Info) Description 06/14/2024 8:00 AM EST Hospital [place] [phone] Consuelo Joyce APRN [facility] [address] MEDICAL ONCOLOGY [place], [place] [phone] 06/14/2024 8:45 AM EST Appointment XRay at [address] [place] [phone] Kavitha Rai MD [facility] DR HEMATOLOGY AND ONCOLOGY [place], [place] [phone] 06/14/2024 9:45 AM EST Appointment Hematology [place] [phone] 06/14/2024 11:00 AM EST Appointment Nuclear Medicine at [place] [address] Consuelo Joyce APRN [facility] [place] [address] 06/14/2024 1:00 PM EST Office Visit Hematology and Oncology at [place] [address] Kavitha Rai MD [facility] [address] [place] [address] 06/14/2024 2:30 PM EST Appointment Hematology and Oncology at [place] [address] 07/05/2024 10:30 AM EDT Appointment Hematology and Oncology at [place] [address] 07/05/2024 11:30 AM EDT Office Visit Hematology and Oncology at [place] [address] Consuelo Joyce APRN [facility] [place] [address] 07/05/2024 1:00 PM EDT Appointment Hematology and Oncology at [place] [address] 08/16/2024 9:20 AM EDT Office Visit Ophthalmology at [place] [address] Luz Jose, CARSON [facility] [place] [address] 01/14/2025 8:30 AM EDT Office Visit Psychiatry and Behavioral Health at [place] [address] Anna Oneill, PhD [facility] [place] [address] documented as of this encounter Visit Diagnoses Not on filedocumented in this encounter Care Teams Template Maker Relationship Specialty Start Date End Date Ryan Betancourt MD [address] [place] [phone] PCP - General Family Medicine 07/29/22 documented as of this encounter
--- OUTSIDE RECORDS SUMMARY | 2024-06-01 20:39 | XMS_ITS | Encounter Summary ---
Author Organization [facility] Address [facility] [place] [address] Care Team Providers Care Asphalt Paving Machine Operator Name Role Phone Ryan Betancourt MD Primary Care Provider [phone] Encounter Details Date Type Department Care Team (Latest Contact Info) Description 09/21/2023 Travel Social History Tobacco Use Types Packs/Day [...] AM EST Hospital En[place] [address] Consuelo Joyce APRN [facility] [place] [address] 06/14/2024 8:45 AM EST Appointment XRay at [address] [place] [address] Kavitha Rai MD [facility] DR HEMATOLOGY [place] [address] 06/14/2024 9:45 AM EST Appointment Hematology [place] [address] 06/14/2024 11:00 AM EST Appointment [place] [address] Consuelo Joyce APRN [facility] [place] [address] 06/14/2024 1:00 PM EST Office Visit Hematology [place] [address] Kavitha Rai MD [facility] HEMATOLOGY [place] [address] 06/14/2024 2:30 PM EST Appointment Hematology [place] [phone] 07/05/2024 10:30 AM EDT Appointment Hematology and Oncology at [place] [phone] 07/05/2024 11:30 AM EDT Office Visit Hematology and Oncology at [place] [phone] Consuelo Joyce APRN [facility] [place] [address] 07/05/2024 1:00 PM EDT Appointment Hematology and Oncology at [place] [address] 08/16/2024 9:20 AM EDT Office Visit Ophthalmology at [place] [phone] Luz Jose, OD [facility] [place] [address] 01/14/2025 8:30 AM EDT Office Visit Psychiatry and Behavioral Health at [place] [address] Anna Oneill, PhD [facility] [place] [address] documented as of this encounter Visit Diagnoses Not on filedocumented in this encounter Care Teams Asphalt Paving Machine Operator Relationship Specialty Start Date End Date Ryan Betancourt MD [address] [place] [phone] PCP - General Family Medicine 07/29/22 documented as of this encounter
--- OUTSIDE RECORDS SUMMARY | 2024-06-01 20:39 | XMS_ITS | Encounter Summary ---
Author Organization [facility] Address [facility] [place] [address] Care Team Providers Care Oil Spot Washer Name Role Phone Ryan Betancourt MD Primary Care Provider [phone] Reason for Referral * Diagnostic Test (Routine) - Closed Specialty Diagnoses / Procedures Referred By Ciaran lopez Referred To Contact Radiology Diagnoses Malignant neoplasm of overlapping sites of right breast in female, estrogen receptor negative Procedures MRI Brain wwo Contrast (Generic) Kavitha Rai MD [facility] [address] [place] [address] [place] [address] Referral ID Status Reason Start Date Expiration Date V isits Requested Visits Authorized [id number] Closed Specialty Service Requested 09/01/2023 03/03/2025 1 1 * Consultation (Routine) - Closed Specialty Diagnoses / Procedures Referred By Ciaran lopez Referred To Contact Dermatology Diagnoses Malignant neoplasm of overlapping sites of right breast in female, estrogen receptor negative Kavitha Rai MD [facility] [place] [address] [facility] Dermatology [address] [place] [address] Referral ID Status Reason Start Date Expiration Date V isits Requested Visits Authorized [id number] Closed Consult, Test & Treat 09/01/2023 08/31/2024 1 1 Reason for Visit * Reason Comments Follow-up Encounter Details Date Type Department Care Team (Mitzi st Contact Info) Description 09/01/2023 1:20 PM EDT Office Visit Hematology and Oncology at [facility] [place] [address] Kavitha Rai MD [facility] [address] [place] [address] Malignant neoplasm of overlapping sites of right [...] Sign Reading Time Taken Comments Blood Pressure 154/84 09/01/2023 1:18 PM EDT Pulse 75 09/01/2023 1:18 PM EDT Temperature 36.7 ??C (98.1 ??F) 09/01/2023 1:18 PM ED T Respiratory Rate 17 09/01/2023 1:18 PM EDT Oxygen Saturation 95% 09/01/2023 1:18 PM EDT Inhaled Oxygen Concentration - - Weight 109.6 kg (241 lb 10 oz) 09/01/2023 1:18 P M EDT Height 161.6 cm (5' 3.62) 09/01/2023 1:18 PM ED T Body Mass Index 41.97 09/01/2023 1:18 PM EDT documented in this encounter Progress Notes * Kavitha Rai MD - 09/01/2023 1:20 PM EDT Patient ID: Soy San is [...] plan for every 6 weeks started 02/24/2023. 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 PET CT 04/07/2023: [...] EF 61% Got a letter from insurance [email or web address] that something was approved but not sure [...] in the shower. Subsequently called [facility] womans wellness, seen that day. 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 No 911 exposure Wt Readings from Last 3 Encounters: 09/01/23 109.6 kg (241 lb 10 oz) 08/11/23 108.6 kg (239 lb 6.7 oz) 07/21/23 106.4 kg (234 lb 9.1 oz) Physical exam Constitutional: She is oriented [...] Lab Results Component Value Date WBC 6.8 09/01/2023 HGB 13.9 09/01/2023 HCT 40.6 09/01/2023 MCV 81.9 (L) 09/01/2023 PLATELET 224 09/01/2023 Lab Results Component Value Date NEUTROABS 4.31 09/01/2023 Lab Results Component Value Date NA 143 08/11/2023 K 3.5 08/11/2023 CL 107 08/11/2023 CO2 26 08/11/2023 BUN 15 08/11/2023 CREATININE 0.78 08/11/2023 GLUCOSE 115 08/11/2023 CALCIUM 8.9 08/11/2023 ESTGFR 96 08/11/2023 Lab Results Component Value Date ALT 21 08/11/2023 AST 16 08/11/2023 ALKPHOS 80 08/11/2023 BILITOT 0.2 08/11/2023 ALBUMIN 3.9 08/11/2023 PROT 6.7 08/11/2023 CEA (ng/mL) Date Value 08/11/2023 2.3 07/21/2023 2.4 03/17/2023 2.1 01/13/2023 2.0 12/23/2022 2.8 CA 15-3 (unit/mL) Date Value 08/11/2023 28 (H) 07/21/2023 32 (H) 06/30/2023 28 (H) 06/09/2023 28 (H) 05/19/2023 29 (H) A/P: Soy San is a 42 [...] decreasing markers and initial resolved breast mass. Progressive breast changes suspicious for recurrence. Send to derm for skin biopsy of breast 2. 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 However will order MRI of head. 3. Continue denosumab q6w -order signed for today. Some confusion over q12 or 4 week regiment. Prefer q4 week however will sync up with phesgo and make it q6 week. 4. Primary breast surgical consultation: Not recommended ( breast tumor board 02/22/2023 and surgeon) a 3. RTC 3 weeks for MD/TANNING SALON ATTENDANT visit , Phesgo, labs Total time spent: 40 minutes with > 50% spend in discussion of above Future Appointments Date Time Provider Department Center 09/01/2023 3:00 PM [facility] [address] [place] [address] 09/22/2023 12:00 PM ACCESS ROOM [address] 09/22/2023 1:00 PM Kavitha Rai MD [facility] HEM ONC [facility] 09/22/2023 2:30 PM [facility] [address] 10/13/2023 12:00 PM ACCESS ROOM [address] 10/13/2023 1:00 PM Consuelo Joyce APRN [facility] HEM ONC [facility] 10/13/2023 2:30 PM [facility] [address] documented in this encounter Plan of Treatment Upcoming Encounters Date Type Department Care Team (Late st Contact Info) Description 06/14/2024 8:00 AM EST Hospital Encounter [place] [address] Consuelo Joyce APRN [facility] [place] [address] 06/14/2024 8:45 AM EST Appointment XRay at [address] [place] [address] Kavitha Rai MD [facility] DR HEMATOLOGY [place] [address] 06/14/2024 9:45 AM EST Appointment Hematology and Oncology at [place] [phone] 06/14/2024 11:00 AM EST Appointment Nuclear Medicine at [address] Consuelo Joyce [facility] [place] [place] [address] 06/14/2024 1:00 PM EST Office Visit Hematology and Oncology at [place] [phone] Kavitha Rai MD [facility] DR HEMATOLOGY [place] [address] 06/14/2024 2:30 PM EST Appointment Hematology [place] [address] 07/05/2024 10:30 AM EDT Appointment Hematology [place] [address] 07/05/2024 11:30 AM EDT Office Visit Hematology and Oncology at [place] [phone] Consuelo Joyce [facility] [place] [address] 07/05/2024 1:00 PM EDT Appointment Hematology and Oncology at [place] [phone] 08/16/2024 9:20 AM EDT Office [place] [address] Luz Jose, OD [facility] [place] [address] 01/14/2025 8:30 AM EDT Office Visit Psychiatry and [place] [address] Anna Oneill, PhD [facility] [place] [address] Scheduled Referrals Name Type Priority Associated Diagnoses Orde r Schedule Referral to Dermatology Outpatient Referral Routine Malignant neoplasm of overlapping sites of right breast in female, estrogen receptor negative Ordered: 09/01/2023 documented as of this encounter Results * MRI Brain wwo Contrast (Generic) (09/21/2023 5:29 PM EDT) Dwllr WORKSTATION ID [id number] RAD Anatomical Region Laterality Modality Head Magnetic [...] who have questions please contact the health manager medicare marketing that requested your imaging first. ? Narrative [...] patients who have questions please contactthe health manager medicare marketing that requested your imaging first. Kavitha Rai MD IMG MRI ORDERABLES documented in this encounter Visit Diagnoses Diagnosis Malignant neoplasm of overlapping sites of right breast in female, estrogen receptor negative Malignant neoplasm of overlapping sites of right breast in female, estrogen receptor negative documented in this encounter Care Teams Oil Spot Washer Relationship Specialty Start Date End Date Ryan Betancourt MD [address] [place] [phone] PCP - General Family Medicine 07/29/22 documented as of this encounter
--- OUTSIDE RECORDS SUMMARY | 2024-06-01 20:39 | XMS_ITS | Encounter Summary ---
Author Organization [facility] [place] [address] Care Team Providers Care Deputy Director Of Finance Name Role Phone Ryan Betancourt MD Primary Care Provider [phone] Reason for Visit * Treatment/Therapy Plan Authorization (Routine) - Closed Specialty Diagnoses / Procedures Referred By Ciaran lopez Referred To Contact Diagnoses Malignant neoplasm of overlapping sites of right breast in female, estrogen receptor negative Procedures -PHESGO (PERTUZUMAB TRASTUZUMAB & HYALURONIDASE-ZZXF) Kavitha Rai MD [facility] [place] [address] [facility] Hem Onc [address] [place] [address] Referral ID Status Reason Start Date Expiration Date Visits Re quested Visits Authorized [id number] Closed 04/07/2023 04/06/2024 1 106 Encounter Details Date Type Department Care Team (Latest Contact Info) Description 08/11/2023 12:48 PM EDT - 08/11/2023 11:59 PM EDT Hospital Encounter [place] [address] Malignant neoplasm of overlapping sites [...] 08/25/2022 omeprazole (PriLOSEC) [address] capsuleIndications:Clara gnant [...] Notes * Maria C Rock RN - 08/11/2023 3:32 PM EDT Patient Name: Soy San Patient Age: 42 y.o. Birthdate: 1980 Admit date: 08/11/2023 Attending Physician: No att. providers found Soy San, 42 y.o. female with diagnosis of 1. Malignant neoplasm of overlapping sites of right breast in female, estrogen receptor negative is here for chemotherapy injection of Phesgo/Xgeva. PROTOCOL: n/a CYCLE: 6 DAY: 1 S: Patient offers no complaints at this time. O: Chemotherapy orders independently verified for correct drug name, route and dosage per patient'sheight, weight and BSA by Maria C Rock, YOSEF and a [facility] pharmacist. Chemotherapy administered per protocol. Phesgo given in R thigh, tolerated well. REACTIONS (DESCRIPTION, TIME, INTERVENTION AND EFFECTIVENESS) none A: Patient tolerated treatment well. Soy San confirms that all questions and concerns have been addressed prior to departure. P: Return to for care as scheduled. documented in this encounter Plan of Treatment Upcoming Encounters Date Type Department Care Team (Late st Contact Info) Description 06/14/2024 8:00 AM [facility] Hospital Encounter [place] [phone] Consuelo Joyce APRN [facility] [place] [address] 06/14/2024 8:45 AM EST Appointment XRay at [address] [place] [address] Kavitha Rai MD [facility] [address] [place] [address] 06/14/2024 9:45 AM EST Appointment Hematology and Oncology at [place] [phone] 06/14/2024 11:00 AM EST Appointment Nuclear Medicine at [place] [phone] Consuelo Joyce [facility] [place] [address] 06/14/2024 1:00 PM EST Office Visit Hematology [place] [address] Kavitha Rai MD [facility] [place] [address] 06/14/2024 2:30 PM EST Appointment Hematology [place] [address] 07/05/2024 10:30 AM EDT Appointment Hematology [place] [address] 07/05/2024 11:30 AM EDT Office Visit [place]ematology [place] [address] Consuelo Joyce [facility] [place] [address] 07/05/2024 1:00 PM EDT Appointment Hematology [place] [address] 08/16/2024 9:20 AM EDT Office [place] [phone] Luz Jose, CARSON [facility] [place] [address] 01/14/2025 8:30 AM EDT Office Visit Psychiatry [place] [phone] Anna Oneill, PhD [facility] [place] [address] documented as of this encounter Visit Diagnoses Diagnosis Malignant neoplasm of overlapping sites of right breast in female, estrogen receptor negative documented in this encounter Administered Medications Inactive Administered Medications - up to 3 most recent administrations Medication Order MAR Action Action Date Dose Rate Site calcium carbonate (TUMS) chewable tablet 500 mg 500 mg, Oral, ONCE, 1 dose, On Tue08/11/23 at 1500, Routine Given 08/11/2023 3:15 PM EDT 500 mg denosumab (Xgeva) (120 mg/1.7 mL) subcutaneous injection 120 mg 120 mg, Subcutaneous, ONCE, 1 dose, On Yvette 08/11/23 at 1500, - Bring to room temperature 15-30 minutes before administration. - Call provider for corrected calcium less than 8.5 mg/dL or CrCl less than 30 mL/min., This agent is restricted to outpatient use. Is this drug being given as an outpatient? Yes Given 08/11/2023 3:15 PM EDT 120 mg Right Arm PERTuzumab, TRASTuzumab and hyaluronidase-zzxf (Phesgo) (600 mg-600 mg-20,000 units per 10 mL) subcutaneous injection 1,200 mg 1,200 mg, Subcutaneous, Administer over 5 Minutes, ONCE, 1 dose, On Yvette 08/11/23 at 1600, Observe patients for infusion-related reactions for a [...] being given as an outpatient? Yes Given 08/11/2023 3:16 PM EDT 1,200 mg documented in this encounter Care Teams Deputy Director Of Finance Relationship Specialty Start Date End Date Ryan Betancourt MD [address] [place] [phone] PCP - General Family Medicine 07/29/22 documented as of this encounter
--- OUTSIDE RECORDS SUMMARY | 2024-06-01 20:39 | XMS_ITS | Encounter Summary ---
[place] [address] Care Team Providers Care Washcoat Wiper Name Role Phone Ryan Betancourt MD Primary Care Provider [phone] Reason for Referral * Diagnostic Test (Routine) - Closed Specialty Diagnoses / Procedures Referred By Ciaran lopez Referred To Contact Radiology Diagnoses Malignant neoplasm of overlapping sites of right breast in female, estrogen receptor negative Deformity of nail bed Gastroesophageal reflux disease, unspecified whether esophagitis present Procedures NM Bone Scan Whole Body Kavitha Rai MD [facility] [address] HEMATOLOGY [place] [address] [place] [address] Referral ID Status Reason Start Date Expiration Date V isits Requested Visits Authorized [id number] Closed Specialty Service Requested 09/22/2023 03/23/2025 1 1 * Diagnostic Test (Routine) - Closed Specialty Diagnoses / Procedures Referred By Ciaran lopez Referred To Contact Radiology Diagnoses Malignant neoplasm of overlapping sites of right breast in female, estrogen receptor negative Deformity of nail bed Gastroesophageal reflux disease, unspecified whether esophagitis present Procedures MRI Breast wwo Contrast Bilat Kavitha Rai MD [facility] [address] HEMATOLOGY [place] [address] [place] [address] Referral ID Status Reason Start Date Expiration Date V isits Requested Visits Authorized [id number] Closed Specialty Service Requested 09/22/2023 11/20/2023 1 1 * Diagnostic Test (Routine) - Closed Specialty Diagnoses / Procedures Referred By Ciaran lopez Referred To Contact Radiology Diagnoses Malignant neoplasm of overlapping sites of right breast in female, estrogen receptor negative Deformity of nail bed Gastroesophageal reflux disease, unspecified whether esophagitis present Procedures CT Chest Abdomen Pelvis w Contrast (Generic) Kavitha Rai MD [facility] [address] HEMATOLOGY [place] [address] [facility] [place] [address] Referral ID Status Reason Start Date Expiration Date V isits Requested Visits Authorized [id number] Closed Specialty Service Requested 09/22/2023 11/20/2023 1 1 Reason for Visit * Reason Comments Follow-up Encounter Details Date Type Department Care Team (Late st Contact Info) Description 09/22/2023 1:00 PM EDT Office Visit Hematology [place] [phone] Kavitha Rai MD [facility] HEMATOLOGY AND ONCOLOGY [place], [place] [id number] Malignant neoplasm of overlapping sites of right breast in female, estrogen receptor negative; Deformity of nail bed; Gastroesophageal reflux disease, unspecified whether esophagitis present Social History Tobacco Use Types Packs/Day Years [...] Sign Reading Time Taken Comments Blood Pressure 137/84 09/22/2023 12:44 PM EDT Pulse 64 09/22/2023 12:44 PM EDT Temperature 36.9 ??C (98.4 ??F) 09/22/2023 1 2:44 PM EDT Respiratory Rate 18 09/22/2023 12:4 4 PM EDT Oxygen Saturation 98% 09/22/2023 12: 44 PM EDT Inhaled Oxygen Concentration - - Weight 111.2 kg (245 lb 2.4 oz) 024 12:43 PM EDT Height 163 cm (5' 4.17) 09/22/2023 12: 43 PM EDT Body Mass Index 41.85 09/22/2023 12:43 PM EDT documented in this encounter Progress Notes * Kavitha Rai MD - 09/22/2023 1:00 PM EDT Patient ID: Soy San [...] plan for every 6 weeks started 02/24/2023. 09/22/2023 On Phesgo q 3 weeks and xgeva q 6 weeks, due this visit (signed x 2 -every other cycle of H/P) Vertigo: improving. No big dizzy spells Breast changes:progressive. ( Picture taken on phone) LMP no more menses MRI brain :pending, done yesterday Derm to biopsy breast-not scheduled yet Hot flashes Occasional diarrhea - at most 3 x per cycle Going to [place] for vacation. 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 PET CT 04/07/2023: [...] right breast in the shower. Subsequently called [facility] womans wellness, seen that day. 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 No 911 exposure Wt Readings from [...] 09/01/2023 Lab Results Component Value Date NA 140 09/01/2023 K 3.6 09/01/2023 CL 107 09/01/2023 CO2 23 09/01/2023 BUN 15 09/01/2023 CREATININE 0.68 (L) 09/01/2023 GLUCOSE 98 09/01/2023 CALCIUM 8.9 09/01/2023 ESTGFR 110 09/01/2023 Lab Results Component Value Date ALT 21 09/01/2023 AST 16 09/01/2023 ALKPHOS 73 09/01/2023 BILITOT 0.2 09/01/2023 ALBUMIN 4.0 09/01/2023 PROT 6.8 09/01/2023 CEA (ng/mL) Date Value 08/11/2023 2.3 07/21/2023 2.4 03/17/2023 2.1 01/13/2023 2.0 12/23/2022 2.8 CA 15-3 (unit/mL) Date Value 09/01/2023 30 (H) 08/11/2023 28 (H) 07/21/2023 32 (H) 06/30/2023 28 (H) 06/09/2023 28 (H) A/P: Soy San is a [...] mass. Progressive breast changes suspicious for recurrence. Still pending to derm for skin biopsy of breast EOD: CT CAP, BS and MRI of breasts ordered. 2. 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 However will order MRI of head. 3. Continue denosumab q6w -order signed for today. Some confusion over q12 or 4 week regiment. Prefer q4 week however will sync up with phesgo and make it q6 week. 4. Primary breast surgical consultation: Not recommended ( breast tumor board 02/22/2023 and surgeon) a 3. RTC 3 weeks for MD/[employer]ORER visit , Phesgo, labs Total time spent: 40 minutes with > 50% spend in discussion of above Future Appointments Date Time Provider Department Center 09/22/2023 12:00 PM ACCESS ROOM [address] 09/22/2023 1:00 PM Kavitha Rai MD [facility] HEM ONC [facility] 09/22/2023 4:00 PM [facility] [address] 10/13/2023 12:00 PM ACCESS ROOM [address] 10/13/2023 1:00 PM Consuelo Joyce APRN [facility] HEM ONC [facility] 10/13/2023 2:30 PM [facility] [address] documented in this encounter Plan of Treatment Upcoming Encounters Date Type Department Care Team (Late st Contact Info) Description 06/14/2024 8:00 AM EST Hospital En[place] [address] Consuelo Joyce APRN [facility] [place] [address] 06/14/2024 8:45 AM EST Appointment XRay at [address] [place] [address] Kavitha Rai MD [facility] HEMATOLOGY [place] [address] 06/14/2024 9:45 AM EST Appointment Hematology [place] [address] 06/14/2024 11:00 AM EST Appointment Nuclear Medicine at [place] [address] Consuelo Joyce APRN [facility] [place] [address] 06/14/2024 1:00 PM EST Office Visit Hematology and Oncology at [place] [address] Kavitha Rai MD [facility] [address] HEMATOLOGY [place] [address] 06/14/2024 2:30 PM EST Appointment Hematology and Oncology at [place] [address] 07/05/2024 10:30 AM EDT Appointment Hematology and Oncology at [place] [address] 07/05/2024 11:30 AM EDT Office Visit Hematology and Oncology at [place] [address] Consuelo Joyce APRN [facility] [place] [address] 07/05/2024 1:00 PM EDT Appointment Hematology and Oncology at [place] [address] 08/16/2024 9:20 AM EDT Office Visit Ophthalmology at [place] [address] Luz Jose, CARSON [facility] [place] [address] 01/14/2025 8:30 AM EDT Office Visit Psychiatry and Behavioral Health at [place] [address] Anna Oneill, PhD [facility] [place] [address] documented as of this encounter Results * [...] have questions please contact the health career law clerk that requested your imaging first. ? Electronically signed by: Evelyn Ngo MD, [facility] ([phone]), at 10/18/2023 8:12 AM Narrative 10/18/2023 8:12 AM EDT EXAMINATION: MRI [...] contrast enhancement curve analysis was performed, using [employer] software. COMPARISON STUDIES: Compared and/or correlated with [...] unremarkable. Kavitha Rai MD IMG MRI ORDERABLES * NM Bone Scan Whole Body (10/14/2023 2:31 PM EDT) WORKSTATION ID [id number] DH RAD Anatomical Region Laterality Modality Nuclear [...] have questions please contact the health career law clerk that requested your imaging first. ? Electronically signed by: David Jack MD, [facility] ([phone]), at 10/14/2023 5:08 PM Narrative 10/14/2023 5:08 [...] patients who have questions please contactthe health career law clerk that requested your imaging first. Electronically signed by: David Jack MD, [facility]([phone]), at 10/14/2023 5:08 PM Kavitha Rai MD IMG NM ORDERABLES * CT Chest Abdomen Pelvis w Contrast (Generic) (10/14/2023 2:02 PM EDT) WORKSTATION ID [id number] RAD Anatomical Region Laterality Modality Abdomen, Pelvis [...] have questions please contact the health career law clerk that requested your imaging first. ? Electronically signed by: Addi Burton MD, [facility] ([phone]), at 10/17/2023 10:17 AM Narrative 10/17/2023 10:17 AM EDT EXAMINATION: CT [...] patients who have questions please contactthe health career law clerk that requested your imaging first. Electronically signed by: Addi Burton MD, [facility]([phone]), at 10/17/2023 10:17 AM Kavitha Rai MD IMG CT ORDERABLES documented in this encounter Visit Diagnoses Diagnosis Malignant neoplasm of overlapping sites of right breast in female, estrogen receptor negative Deformity of nail bed Gastroesophageal reflux disease, unspecified whether esophagitis present Malignant neoplasm of overlapping sites of right breast in female, estrogen receptor negative Deformity of nail bed Gastroesophageal reflux disease, unspecified whether esophagitis present Malignant neoplasm of overlapping sites of right breast in female, estrogen receptor negative Deformity of nail bed Gastroesophageal reflux disease, unspecified whether esophagitis present Malignant neoplasm of overlapping sites of right breast in female, estrogen receptor negative Deformity of nail bed Gastroesophageal reflux disease, unspecified whether esophagitis present documented in this encounter Care Teams Washcoat Wiper Relationship Specialty Start Date End Date Ryan Betancourt MD [address] [place] [phone] PCP - General Family Medicine 07/29/22 documented as of this encounter
--- OUTSIDE RECORDS SUMMARY | 2024-06-01 20:39 | XMS_ITS | Encounter Summary ---
Author Organization [facility] Address [facility] [place] [address] Care Team Providers Care Executive Pastry Chef Name Role Phone Ryan Betancourt MD Primary Care Provider [phone] Reason for Visit * Consultation (Routine) - Closed Specialty Diagnoses / Procedures Referred By Ciaran lopez Referred To Contact Dermatology Diagnoses Malignant neoplasm of overlapping sites of right breast in female, estrogen receptor negative Kavitha Rai MD [facility] DR HEMATOLOGY [place] [address] [facility] Dermatology [address] [place] [address] Referral ID Status Reason Start Date Expiration Date V isits Requested Visits Authorized [id number] Closed Consult, Test & Treat 09/01/2023 08/31/2024 1 1 Encounter Details Date Type Department Care Team (Late Contact Info) Description 10/13/2023 10:00 AM EDT Office Visit Dermatology at [facility] [address] [place] [phone] Nadja Payan MD [facility] DR [place] [address] Neoplasm of unspecified behavior of bone, soft tissue, and skin Social History Tobacco Use Types Packs/Day Years [...] as of this encounter Progress Notes * Nadja Payan MD - 10/13/2023 10:00 AM EDT Images from the original note were not included. DEPARTMENT OF DERMATOLOGY Medical Dermatology Clinic Provider: Nadja Payan MD Patient's preferred name Soo Preferred contact method for results [x]Phone [x]myD-H []Letter Detailed phone message OK? Y Are there any other people with whom we may discuss your care? Y Luis (spouse) Past Medical History Date, location, treatment Melanoma N Dysplastic nevi N SCC N BCC N AKs N UV Exposure & Protection + history of blistering sunburn Other relevant past medical history 2022 Breast Cancer (in treatment now) presently on THP (Ruthy regimen Family History Details Melanoma N NMSC N Other relevant family history N Social History Occupation: Hobbies: hiking, walking Other: Pre-Procedure Questions Details Allergy to lidocaine, epinephrine, Dermabond, chlorhexidine, or adhesives N Bleeding disorder or blood thinners N Implanted devices (Pacemaker, defibrillator, deep brain stimulator, cochlear implant) N History of Present Illness: Soy San is a 42 y.o. with stage 4 Her 2 + breast cancerwith locally advanced breast cancer on the right breast. Patient presents to clinic today for urgent bx of breast. She had breast cancer on her right breastand now has discoloration of the breast and areola, and her oncologist was hoping to get a biopsy today, to see if she has recurring mets. Last visit at Dermatology: 03/30/2023 Medications: Reviewed in eD-H Allergies: Reviewed in eD-H Skin Examination: Focused skin examination of the spot on the left breast was normal with the exception of the findings below. Assessment/Plan A. 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 Known breast cancer, concern for cutaneous mets - Recommended a skin biopsy. After discussion of potential risks (scarring, bleeding, infection), patient agreed to proceed. - Patient denies known allergies to lidocaine and epinephrine. Procedure: Skin punch biopsy. Location: right medial breast proximal Time of procedure: 10:12 AM Discussed indications for the procedure and expectations including risks and benefits. Verbal consent obtained. Time out performed. Skin prepped with alcohol. Local anesthesia with 1% xylocaine, 1/100,000 epinephrine. A 4 mm punch biopsy to the level of the subcutis was performed. Specimen submitted to Pathology. Wound closed with monofilament suture. There were no complications; patient tolerated the procedure well. Wound dressed. Post-procedure expectations (including discomfort management), wound care and activity restrictions reviewed. - Follow-up based on pathology results. - Suture removal: 10-14 days. B. Neoplasm of unspecified behavior of skin [place]ette indurated plaque with peau d' orange Known breast cancer, concern for cutaneous mets - Recommended a skin biopsy. After discussion of potential risks (scarring, bleeding, infection), patient agreed to proceed. - Patient denies known allergies to lidocaine and epinephrine. Procedure: Skin punch biopsy. Location: right medial breast distal Time of procedure: 10:12 AM Discussed indications for the procedure and expectations including risks and benefits. Verbal consent obtained. Time out performed. Skin prepped with alcohol. Local anesthesia with 1% xylocaine, 1/100,000 epinephrine. A 4 mm punch biopsy to the level of the subcutis was performed. Specimen submitted to Pathology. Wound closed with monofilament suture. There were no complications; patient tolerated the procedure well. Wound dressed. Post-procedure expectations (including discomfort management), wound care and activity restrictions reviewed. - Follow-up based on pathology results. - Suture removal: 7-10 days. Figure 1 Photo(s) taken and charted with patient's verbal consent. Other: N/A RTC: Pending pathology []Note routed to consulting nurse []Recall placed in scheduling system []Appointment scheduled at checkout Scribe attestation: Felicia Stallworth [facility] has performed the documentation for this encounter in the presence of and acting as a scribe for Nadja Payan MD. I performed the above scribed service and agree with the accuracy of the documentation in this encounter. Reviewed and signed by: Nadja Payan MD Dermatology [facility] Patient seen and evaluated with staff professor of education: Eduarda Murphy MD Dermatology [facility] * Eduarda Murphy MD - 10/13/2023 10:00 AM EDT I directly supervised the Dermatology resident during this office visit. The resident presented thehistory and physical exam to me. I then saw and examined this patient with the resident. We reviewed the history and pertinent details and I confirmed the physical findings. I agree with the details of the history and physical exam as documented in the resident's note. EDUARDA MURPHY MD Staff Physician * Nadja Payan MD - 10/13/2023 10:00 AM EDT Called patient and discussed bx results. C/w metastiatic breast cancer. ER, NE, Her2 pending. DIAGNOSIS A - Right medial superior pole of the breast, skin punch biopsy: - Metastatic adenocarcinoma (see discussion) B - Right periareolar breast, skin punch biopsy: - Metastatic adenocarcinoma (see discussion) documented in this encounter Plan of Treatment Upcoming Encounters Date Type Department Care Team (Late st Contact Info) Description 06/14/2024 8:00 AM EST Hospital Encounter [place] [address] Consuelo Joyce APRN [facility] [place] [address] 06/14/2024 8:45 AM EST Appointment XRay at [address] [place] [address] Kavitha Rai MD [facility] HEMATOLOGY [place] [address] 06/14/2024 9:45 AM EST Appointment Hematology [place] [address] 06/14/2024 11:00 AM EST Appointment [place] [address] Consuelo Joyce [facility] [place] [address] 06/14/2024 1:00 PM EST Office Visit Hematology [place] [address] Kavitha Rai MD [facility] DR HEMATOLOGY [place] [address] 06/14/2024 2:30 PM EST Appointment Hematology [place] [address] 07/05/2024 10:30 AM EDT Appointment Hematology [place] [address] 07/05/2024 11:30 AM EDT Office Visit Hematology [place] [address] Consuelo Joyce APRN [facility] [place] [address] 07/05/2024 1:00 PM EDT Appointment Hematology [place] [address] 08/16/2024 9:20 AM EDT Office Visit [place] [address] Luz Jose, CARSON [facility] [place] [address] 01/14/2025 8:30 AM EDT Office Visit Psychiatry and Behavioral Health at [place] [phone] Anna Oneill, PhD [facility] [place] [address] documented as of this encounter Procedures Procedure Name Priority Date/Time Associated Diagnosis Comments SPECIMEN TO PATHOLOGY Routine 10/13/2023 12:58 PM EDT Neoplasm of unspecified behavior of bone, soft tissue, and skin SPECIMEN TO PATHOLOGY Routine 10/13/2023 12:58 PM EDT Neoplasm of unspecified behavior of bone, soft tissue, and skin SURGICAL PATHOLOGY REPORT Routine 10/13/2023 10:41 AM EDT documented in this encounter Results * Specimen to Pathology (10/13/2023 12:58 PM EDT) AP Specimen 10/13/2023 12:5 8 PM EDT 10/13/2023 12:58 PM EDT Narrative [facility] - 10/13/2023 12:58 PM EDT Specimen requisition ordered. ??Separate Pathology report to follow Eduarad Murphy MD PATHOLOGY/CYTOLOGY ORDERABLES Performing Organization Address [facility] [place] [address] * Specimen to Pathology (10/13/2023 12:58 PM EDT) AP Specimen 10/13/2023 12:5 8 PM EDT 10/13/2023 12:58 PM EDT Narrative [facility] - 10/13/2023 12:58 PM EDT Specimen requisition ordered. ??Separate Pathology report to follow Eduarda Murphy MD PATHOLOGY/CYTOLOGY ORDERABLES Performing Organization Address [facility] [place] [address] * (ABNORMAL) Surgical Pathology Report (10/13/2023 10:41 AM EDT) Final Diagnosis [id number] ? Location: [facility] The signing pathologist has (i) examined the relevant preparation(s) for the specimen(s) and (ii) rendered or confirmed the diagnosis(es). . ?Surgical Pathology DIAGNOSIS CORRECTED REPORT (See Discussion) A - Right medial superior pole of the breast, skin punch biopsy: - Metastatic adenocarcinoma (see discussion) B - Right periareolar breast, skin punch biopsy: - Metastatic adenocarcinoma (see discussion) Electronically signed by: ?Xiomara Ambriz MD Verified: ??10/19/2023 14:[address] Performed at: ??-[facility] Dept. of Pathology, [place] [address] Neck Fitter: Malvin Toscano MD, FCAP, ??CLIA Certificate: [id number] DISCUSSION A, B - The findings are diagnostic of metastatic adenocarcinoma, and would be compatible with mammary adenocarcinoma specifically. In general the precise site of origin of a neoplasm is best determined clinically, with data from the medical history, physical exam, and imaging studies, when indicated. Correction Note: ??This report was opened for correction in error. ??There are no changes to the text of this report. THIS RESULT REQUIRES PHYSICIAN/A.P.P. FOLLOW UP ADDITIONAL STUDIES A - The lesional cells have strong, diffuse expression of CK7 and GATA3. They do not have significant expression of TTF1, CDX-2, CK20 or Sox-10. A, B - ER, NE, and Her2 stains will be evaluated and reported separately by an intradepartmental breast pathologist. SPECIMEN(S) SUBMITTED A - Right medial superior pole of the breast, skin punch (1) B - Right periareolar breast, skin punch (1) CLINICAL INFORMATION A - Neoplasm of unspecified behavior of skin, right red/pink reticular plaque on the right medial superior pole of the breasts/ lymphangioma circumscriptum vs known breast cancer cutaneous METS B - Neoplasm of unspecified behavior of skin, right periareolar breast with pink indurated plaque with pea d' orange, known breast cancer cutaneous METS SPECIMEN PROCESSING A - Labeled/Fixative: Right medial breast proximal, formalin. Quantity/Size: ??Single, 0.5 excised to a depth of 0.7 cm. Tissue Description: Punch of white skin. Sections/Processin g: . SPECIMEN PROCESSING Inked, bisected and entirely submitted in 1 cassette labeled A1. B - Labeled/Fixative: Right medial breast distal, formalin. Quantity/Size: ??Single, 0.5 cm excised to a depth of 1.0 cm. Tissue Description: Punch of sher skin. Sections/Processin g: Inked, bisected and entirely submitted in 1 cassette labeled B1. ??sdy ? Addendum ADDENDUM DISCUSSION Immunohistochemist ry Studies Specimen: ??Right medial superior pole of the breast (A1) and right periareolar breast, skin punch biopsy ??(B1) Estrogen Receptor (ER) immunoreactivity: ?Negative Progesterone Receptor (NE) immunoreactivity: ?Negative HER2 immunoreactivity: Positive (score 3+) ? ------ *Diagnostic buchanan for hormone receptors (ASCO/CAP GUIDELINES, 2020): ?Negative immunoreactivity: <1% tumor cells with immunostaining ?Positive immunoreactivity: >=1% tumor cells with immunostaining ??Low Positive: 1-10% tumor cells with immunostaining* *There are limited data on the overall benefit of endocrine therapies for patients with low level (1-10%) ER expression, but they currently suggest possible benefit, so patients are considered eligible for endocrine treatment. There are data that suggest invasive cancers with these results are heterogeneous in both behavior and biology and often have gene expression profiles more similar to ER-negative cancers. [id number] Overexpression Assessment ?------- ? --------- Interpretation ?Score ?Criteria ?------- ? --------- Negative ?(0) ?No staining observed or membrane ? staining that is incomplete and is ? faint/barely perceptible and within ?10% ? of tumor cells Negative ?(1+) ? Incomplete membrane staining that is ? faint/barely perceptible and within >10% ? of tumor cells Equivocal ? (2+) ? Weak to moderate complete membrane staining ? observed within >10% of tumor cells Positive ?(3+) ? Circumferential membrane staining that ? is complete, intense, and within >10% of ? tumor cells Diagnostic categories have been adjusted to reflect treatment guidelines (ASCO/CAP guidelines 2018) Immunohistochemica l assays were performed on paraffin-embedded tissue sections fixed in 10% neutral buffered formalin for 6-72 hours using the polymer system technique with appropriate positive and negative controls. The assays were performed according . ADDENDUM DISCUSSION to the ladle operator ' s instructions using Anti-ER (SP1), Anti-NE (16), and Anti-HER2 (4B5) antibodies. These tests were developed and their performance characteristics determined by [facility]. They may not have been cleared or approved by the US Food and Drug Administration. The FDA does not require such tests to go through premarket FDA review. These tests are used for clinical purposes and should not be regarded as investigational or for research. This laboratory is certified under the Clinical Laboratory Improvement Amendments (CLIA) as qualified to perform high complexity clinical laboratory testing. Electronically signed by: ?Lilly Kraus DO Verified: ??10/19/2023 8:44 ?? Pathologist Performed at: ??-[facility] Dept. of Pathology, [place] [address] Neck Fitter: Malvin Toscano MD, AP, ??CLIA Certificate: [id number]) 10/19/2023 2:03 PM EDT [facility] SPECIMEN FROM SKIN / Unknown 10/13/2023 10:41 AM EDT 10/13/2023 10:41 AM EDT SPECIMEN FROM SKIN / Unknown 10/13/2023 10:41 AM EDT 10/13/2023 10:41 AM EDT Nadja Payan MD PATHOLOGY/CYTOLOGY ORDERABLES [facility] [place] [place] [address] documented in this encounter Visit Diagnoses Diagnosis Neoplasm of unspecified behavior of bone, soft tissue, and skin documented in this encounter Care Teams Executive Pastry Chef Relationship Specialty Start Date End Date Ryan Betancourt MD [address] [place] [phone] PCP - General Family Medicine 07/29/22 documented as of this encounter
--- OUTSIDE RECORDS SUMMARY | 2024-06-01 20:39 | XMS_ITS | Encounter Summary ---
Author Organization [facility] Address [facility] [place] [address] Care Team Providers Care Cytotechnologist/Cytology Supervisor Name Role Phone Ryan Betancourt MD Primary Care Provider [phone] Encounter Details Date Type Department Care Team (Late st Contact Info) Description 08/27/2023 Telephone Hematology and Oncology at [facility] [place] [phone] Lay Pitts MD [facility] DR HEMATOLOGY/[place] [address] Social History Tobacco Use Types Packs/Day Years [...] as of this encounter Progress Notes * Lay Pitts MD - 08/27/2023 9:26 AM EDT I received a page from Soy San Who complained of very dizzy. Soo is a 42 year old F with de-daylin stage 4 her-2neu enriched breast cancer, on H/P monotherapy, reported persistent dizziness this morning, [place] the room was spinning, can't walk straight. No V/N. Kept hydrated, but did not seem to improve. I am concerned for BPPV, felt it's worth ED visit as ED providers can usually perform the Parisa-Hallpike maneuver. Vertigo and rule out other differentials, check vitals and labs. Pt en route to local ED. Spouse will drive. Lay Pitts MD Hematology/ Medical Oncology Fellow [facility] [place] Page #[id number] documented in this encounter Plan of Treatment Upcoming Encounters Date Type Department Care Team (Late st Contact Info) Description 06/14/2024 8:00 AM EST Hospital Encounter [place] [phone] Consuelo Joyce APRN [facility] MEDICAL [place] [address] 06/14/2024 8:45 AM EST Appointment XRay at [address] [place] [address] Kavitha Rai MD [facility] DR [place] [address] 06/14/2024 9:45 AM EST Appointment Hematology and Oncology at [place] [phone] 06/14/2024 11:00 AM EST Appointment Nuclear Medicine at [place] [phone] Consuelo Joyce [facility] [place] [address] 06/14/2024 1:00 PM EST Office Visit Hematology and Oncology at [place] [phone] Kavitha Rai MD [facility] [address] [place] [address] 06/14/2024 2:30 PM EST Appointment Hematology and Oncology at [place] [phone] 07/05/2024 10:30 AM EDT Appointment Hematology and Oncology at [place] [phone] 07/05/2024 11:30 AM EDT Office Visit Hematology and Oncology at [place] [phone] Consuelo Joyce [facility] [place] [address] 07/05/2024 1:00 PM EDT Appointment Hematology [place] [address] 08/16/2024 9:20 AM EDT Office Visit Ophthalmology at [place] [phone] Luz Jose, OD [facility] [place] [address] 01/14/2025 8:30 AM EDT Office Visit Psychiatry and [place] [address] Anna Oneill, PhD [facility] [place] [address] documented as of this encounter Visit Diagnoses Not on filedocumented in this encounter Care Teams Cytotechnologist/Cytology Supervisor Relationship Specialty Start Date End Date Ryan Betancourt MD [address] [place] [phone] PCP - General Family Medicine 07/29/22 documented as of this encounter
--- OUTSIDE RECORDS SUMMARY | 2024-06-01 20:39 | XMS_ITS | Encounter Summary ---
Author Organization [facility] [place] [address] Care Team Providers Care Manager Administration Name Role Phone Ryan Betancourt MD Primary Care Provider [phone] Reason for Visit * Treatment/Therapy Plan Authorization (Routine) - Closed Specialty Diagnoses / Procedures Referred By Ciaran lopez Referred To Contact Diagnoses Malignant neoplasm of overlapping sites of right breast in female, estrogen receptor negative Procedures -PHESGO (PERTUZUMAB TRASTUZUMAB & HYALURONIDASE-ZZXF) Kavitha Rai MD [facility] [address] HEMATOLOGY [place] [address] [facility] [address] [place] [address] Referral ID Status Reason Start Date Expiration Date Visits Re quested Visits Authorized [id number] Closed 04/07/2023 04/06/2024 1 106 Encounter Details Date Type Department Care Team (Latest Contact Info) Description 09/01/2023 12:15 PM EDT - 09/01/2023 12:22 PM EDT Hospital Encounter [place]ematology [place] [address] Malignant neoplasm of overlapping sites [...] place to sleep or slept in a correction (including now)? No 07/29/2022 Sex and Gender Information Value Date Recorded Sex Assigned at Not on file Gender Identity Not on file Sexual Orientation Not on file documented as of this encounter Last Filed Vital Signs Vital Sign Reading Time Taken Comments Blood Pressure 115/70 09/01/2023 12:46 PM EDT Pulse 75 09/01/2023 12:46 PM EDT Temperature - - Respiratory Rate - - Oxygen Saturation 95% 09/01/2023 12:46 PM EDT Inhaled Oxygen Concentration - - Weight - - Height - - Body Mass Index - - documented in this encounter Medications at Time [...] 30 g 08/25/2022 omeprazole (PriLOSEC) 20 mg capsuleIndications:Clara loyd neoplasm of overlapping sites of [...] as of this encounter Progress Notes * Yesenia Murphy RN - 09/01/2023 12:50 PM EDT Patient Name: Soy San Patient Age: 42 y.o. Birthdate: 1980 Admit date: 09/01/2023 Attending Physician: Alexia att. providers found Access visit. See MAR and/or flowsheet. Patient stated feeling dizzy, vital signs obtained, within normal limits, MD notified of patient complaint. documented in this encounter Plan of Treatment Upcoming Encounters Date Type Department Care Team (Late st Contact Info) Description 06/14/2024 8:00 AM EST Hospital Encounter [place] [phone] Consuelo Joyce APRN [facility] [place] [address] 06/14/2024 8:45 AM EST Appointment XRay at [address] [place] [address] Kavitha Rai MD [facility] DR HEMATOLOGY [place] [address] 06/14/2024 9:45 AM EST Appointment Hematology and Oncology at [place] [address] 06/14/2024 11:00 AM EST Appointment Nuclear Medicine at [address] Consuelo Joyce APRN [facility] [place] [address] 06/14/2024 1:00 PM EST Office Visit Hematology and Oncology at [place] [phone] Kavitha Rai MD [facility] DR HEMATOLOGY [place] [address] 06/14/2024 2:30 PM EST Appointment Hematology and Oncology at [place] [phone] 07/05/2024 10:30 AM EDT Appointment Hematology and Oncology at [place] [phone] 07/05/2024 11:30 AM EDT Office Visit Hematology and Oncology at [place] [phone] Consuelo Joyce APRN [facility] [place] [address] 07/05/2024 1:00 PM EDT Appointment Hematology and Oncology at [place] [phone] 08/16/2024 9:20 AM EDT Office [place] [phone] Luz Jose, OD [facility] [place] [address] 01/14/2025 8:30 AM EDT Office Visit Psychiatry and Behavioral Health at [facility] [place] [address] Anna Oneill, PhD [facility] [place] [address] documented as of this encounter Procedures Procedure Name Priority Date/Time Associated Diagnosis Comments HEMOGRAM STAT 09/01/2023 12:47 PM EDT Malignant neoplasm of overlapping sites of right breast in female, estrogen receptor negative DIFFERENTIAL, AUTOMATED STAT 09/01/2023 12:47 PM EDT Malignant neoplasm of overlapping sites of right breast in female, estrogen receptor negative CANCER ANTIGEN 15-3 STAT 09/01/2023 1 2:47 PM EDT Malignant neoplasm of overlapping sites of right breast in female, estrogen receptor negative CBC (WITH DIFF) STAT 09/01/2023 12:47 PM EDT Malignant neoplasm of overlapping sites of right breast in female, estrogen receptor negative COMPREHENSIVE METABOLIC PANEL STAT 09/01/2023 12:47 PM EDT Malignant neoplasm of overlapping sites of right breast in female, estrogen receptor negative documented in this encounter Results * Differential, Automated (09/01/2023 12:47 PM EDT) Neutrophil % 63.6 % [facility] Neutrophil Absolute 4.31 1.70 - 6.10 x10(3)/[facility] Lymph % 27.8 % [facility] Lymphocytes Abs 1.9 0.9 - 3.2 x10(3)/[facility] Monocyte % 5.4 % [facility] Monocyte Abs 0.4 0.3 - 0.9 x10(3)/[facility] Eos % 2.8 % [facility] Eosinophils Abs 0.2 0.0 - 0.4 x10(3)/[facility] Basophil % 0.3 % [facility] Baso Absolute 0.0 0.0 - 0.1 x10(3)/[facility] Immature Gran % 0.10 % [facility] Comment: Immature granulocytes(IG's)percentage and absolute count will include metamyelocytes, myelocytes, and promyelocytes. Blood smears from CBCs yielding IG's will be scanned manually for concordance. If this scan disagrees with the automated IG or if promyelocytes are noted, a manual differential will be performed. Immature Gran Absolute 0.01 0.00 - 0.04 x10(3)/[facility] Blood 09/01/2023 12:4 7 PM EDT 09/01/2023 1:05 PM EDT Narrative Resulting Agency Comment Spec In Lab Kavitha Rai MD HEMATOLOGY ORDERABLE S [facility] [place] [address] * (ABNORMAL) Hemogram (09/01/2023 12:47 PM EDT) White Blood Cell 6.8 4.0 - 9.5 x10(3)/mc L [facility] Red Blood Cell 4.96 4.00 - 5.21 x10(6)/mc L [facility] Hemoglobin 13.9 11.7 - 15.5 g/dL [facility] Hematocrit 40.6 35.7 - 45.8 % [facility] Mean Cell Volume 81.9(L) 82.6 - 94.4 fL [facility] Mean Cell Hemoglobin 28.0 27.1 - 32.0 pg [facility] Mean Cell Hemoglobin Concentration 34.2 31.7 - 35.0 g/dL [facility] Platelet 224 145 - 357 x10(3)/mc L [facility] RDW Standard Deviation 40.0 37.0 - 46.0 [facility] RDW coefficient of variation 13.6 11.5 - 14.1 % [facility] Mean Platelet Volume 10.1 7.6 - 12.9 [facility] NRBC% auto 0.0 % [facility] NRBC Absolute 0.000 0.000 - 0.000 x10(3)/mc L [facility] Blood 09/01/2023 12:4 7 PM EDT 09/01/2023 1:05 PM EDT Narrative Resulting Agency Comment Spec In Lab Kavitha Rai MD HEMATOLOGY ORDERABLE S Performing Organization Address City/[facility]/ZIP Co de Phone Number [facility] [place] [address] * (ABNORMAL) Cancer antigen 15-3 (09/01/2023 12:47 PM EDT) CA 15-3 30(H) <=25 unit/mL [facility] Comment: This result was generated using a Deepak Dequan immunoassay. ??Results obtained from other methods or manufacturers cannot be used interchangeably with this method. Blood 09/01/2023 12:4 7 PM EDT 09/01/2023 1:05 PM EDT Narrative Resulting Agency Comment Spec In Lab Kavitha Rai MD CHEMISTRY ORDERABLES Performing Organization Address City/[facility]/ZIP Co de Phone Number [facility] [place] [address] * (ABNORMAL) Comprehensive metabolic panel (non-fasting) (09/01/2023 12:47 PM EDT) Glucose 98 65 - 199 mg/dL [facility] Comment:Diabetes: >=200 mg/d L plus symptoms Blood Urea Nitrogen 15 8 - 18 mg/dL [facility] Creatinine 0.68(L) 0.70 - 1.20 mg/dL [facility] Sodium 140 135 - 145 mmol/L [facility] Potassium 3.6 3.5 - 5.0 mmol/L [facility] Comment: Please note: ??Patients with WBC >100,000 may have falsely elevated Potassium levels. ??For accurate Potassium quantification in these patients send serum separator tube (gold top) for subsequent determinations. ??Contact the Clinical Chemistry Laboratory if there are any questions. Chloride 107 98 - 107 mmol/L [facility] Carbon Dioxide 23 22 - 31 mmol/L [facility] Anion Gap 10 5 - 15 mmol/L [facility] Calcium 8.9 8.5 - 10.5 mg/dL [facility] Protein, Total 6.8 6.1 - 8.0 g/dL [facility] Albumin 4.0 3.2 - 5.2 g/dL [facility] Aspartate Aminotransferase 16 0 - 30 unit/L [facility] Alanine Aminotransferase 21 0 - 30 unit/L [facility] Alkaline Phosphatase 73 35 - 105 unit/L [facility] Bilirubin, Total 0.2 0.2 - 1.3 mg/dL [facility] Est Glomerular Filtration Rate 110 >=60 mL/min/1. 73 m?? [facility] Comment: This patient's estimated [...] and symptoms in addition to eGFR. Blood 09/01/2023 12:4 7 PM EDT 09/01/2023 1:05 PM EDT Narrative Resulting Agency Comment Spec In Lab Kavitha Rai MD CHEMISTRY ORDERABLES [facility] [address] documented in this encounter Visit Diagnoses Diagnosis [...] EVERY 1 MIN PRN, Starting on Yvette 09/01/23 at 1231, Until Tue09/02/23 at 0435, Line Care, Flush pertains to all indwelling lines. Flush per protocol found in the job aid using the link provided on this medication record. Refer to Intravenous (IV) Job Aid: Adult Flushing & Catheter Care (4030) job aid for additional information regarding guidelines and administration., Routine Given 09/01/2023 4:05 PM EDT 20 mLs Given 09/01/2023 12:47 PM EDT 20 mLs documented in this encounter Care Teams Manager Administration Relationship Specialty Start Date End Date Ryan Betancourt MD [address] [place] [phone] PCP - General Family Medicine 07/29/22 documented as of this encounter
--- OUTSIDE RECORDS SUMMARY | 2024-06-01 20:39 | XMS_ITS | Encounter Summary ---
[place] [address] Care Team Providers Care Computer Engineering Technologist Name Role Phone Ryan Betancourt MD Primary Care Provider [phone] Encounter Details Date Type Department Care Team (Latest Contact Info) Description 09/22/2023 11:50 AM EDT - 09/22/2023 11:59 PM EDT Hospital Encounter H[place]ology [place] [phone] Malignant neoplasm of overlapping sites of right [...] Date omeprazole (PriLOSEC) [address] capsuleIndications:Clara loyd [...] Progress Notes * Fabi Gilbert RN - 09/22/2023 12:06 PM EDT Patient Name: Soy San Patient Age: 42 y.o. Birthdate: 1980 Admit date: 09/22/2023 Attending Physician: No att. providers found Access visit. See MAR and/or flowsheet. documented in this encounter Plan of Treatment Upcoming Encounters Date Type Department Care Team (Late st Contact Info) Description 06/14/2024 8:00 AM EST Hospital Encounter [place] [address] [facility] [place] [address] 06/14/2024 8:45 AM EST Appointment XRay at [address] [place] [address] Kavitha Rai MD [facility] DR [place] [address] 06/14/2024 9:45 AM EST Appointment Hematology [place] [address] 06/14/2024 11:00 AM EST Appointment [place] [address] Consuelo Joyce [facility] [place] [address] 06/14/2024 1:00 PM EST Office Visit Hematology [place] [address] Kavitha Rai MD [facility] DR [place] [address] 06/14/2024 2:30 PM EST Appointment Hematology [place] [address] 07/05/2024 10:30 AM EDT Appointment Hematology and Oncology at [place] [phone] 07/05/2024 11:30 AM EDT Office Visit Hematology and Oncology at [place] [phone] Consuelo Joyce APRN [facility] [place] [address] 07/05/2024 1:00 PM EDT Appointment Hematology and Oncology at [place] [phone] 08/16/2024 9:20 AM EDT Office Visit Ophthalmology at [place] [address] Luz Jose, [facility] [place] [address] 01/14/2025 8:30 AM EDT Office Visit Psychiatry and Behavioral Health at [place] [address] Anna Oneill, PhD [facility] [place] [address] documented as of this encounter Procedures Procedure Name Priority Date/Time Associated Diagnosis Comments HEMOGRAM STAT 09/22/2023 12:05 PM EDT Malignant neoplasm of overlapping sites of right breast in female, estrogen receptor negative DIFFERENTIAL, AUTOMATED STAT 09/22/2023 12:05 PM EDT Malignant neoplasm of overlapping sites of right breast in female, estrogen receptor negative CANCER ANTIGEN 15-3 STAT 09/22/2023 1 2:05 PM EDT Malignant neoplasm of overlapping sites of right breast in female, estrogen receptor negative CBC (WITH DIFF) STAT 09/22/2023 12:05 PM EDT Malignant neoplasm of overlapping sites of right breast in female, estrogen receptor negative CEA Routine 09/22/2023 12:05 PM EDT Malignant neoplasm of overlapping sites of right breast in female, estrogen receptor negative COMPREHENSIVE METABOLIC PANEL STAT 09/22/2023 12:05 PM EDT Malignant neoplasm of overlapping sites of right breast in female, estrogen receptor negative documented in this encounter Results * Differential, Automated (09/22/2023 12:05 PM EDT) Neutrophil % 56.6 % [facility] Neutrophil Absolute 3.71 1.70 - 6.10 x10(3)/[facility] Lymph % 35.4 % [facility] Lymphocytes Abs 2.3 0.9 - 3.2 x10(3)/[facility] Monocyte % 4.9 % [facility] Monocyte Abs 0.3 0.3 - 0.9 x10(3)/[facility] Eos % 2.6 % [facility] Eosinophils Abs 0.2 0.0 - 0.4 x10(3)/[facility] Basophil % 0.3 % [facility] Baso Absolute 0.0 0.0 - 0.1 x10(3)/[facility] Immature Gran % 0.20 % [facility] Comment: Immature granulocytes(IG's)percentage and absolute count will include metamyelocytes, myelocytes, and promyelocytes. Blood smears from CBCs yielding IG's will be scanned manually for concordance. If this scan disagrees with the automated IG or if promyelocytes are noted, a manual differential will be performed. Immature Gran Absolute 0.01 0.00 - 0.04 x10(3)/[facility] Blood 09/22/2023 12:0 5 PM EDT 09/22/2023 12:36 PM EDT Narrative Resulting Agency Comment Spec In Lab Kavitha Rai MD HEMATOLOGY ORDERABLE S [facility] [place] [address] * Hemogram (09/22/2023 12:05 PM EDT) White Blood Cell 6.6 4.0 - 9.5 x10(3)/[facility] Red Blood Cell 4.84 4.00 - 5.21 x10(6)/[facility] Hemoglobin 13.6 11.7 - 15.5 g/dL [facility] Hematocrit 40.0 35.7 - 45.8 % [facility] Mean Cell Volume 82.6 82.6 - 94.4 fL [facility] Mean Cell Hemoglobin 28.1 27.1 - 32.0 pg [facility] Mean Cell Hemoglobin Concentration 34.0 31.7 - 35.0 g/dL [facility] Platelet 239 145 - 357 x10(3)/[facility] RDW Standard Deviation 40.3 37.0 - 46.0 [facility] RDW coefficient of variation 13.4 11.5 - 14.1 % [facility] Mean Platelet Volume 10.1 7.6 - 12.9 fL [facility] NRBC% auto 0.0 % [facility] NRBC Absolute 0.000 0.000 - 0.000 x10(3)/[facility] Blood 09/22/2023 12:0 5 PM EDT 09/22/2023 12:36 PM EDT Narrative Resulting Agency Comment Spec In Lab Kavitah Rai MD HEMATOLOGY ORDERABLE S [facility] [place] [address] * (ABNORMAL) Comprehensive metabolic panel (non-fasting) (09/22/2023 12:05 PM EDT) Glucose 114 65 - 199 mg/dL [facility] Comment:Diabetes: >=200 mg/d L plus symptoms Blood Urea Nitrogen 14 8 - 18 mg/dL [facility] Creatinine 0.73 0.70 - 1.20 mg/dL [facility] Sodium 141 135 - 145 mmol/L [facility] Potassium 3.4(L) 3.5 - 5.0 mmol/L [facility] Comment: Please note: ??Patients with WBC >100,000 may have falsely elevated Potassium levels. ??For accurate Potassium quantification in these patients send serum separator tube (gold top) for subsequent determinations. ??Contact the Clinical Chemistry Laboratory if there are any questions. Chloride 109(H) 98 - 107 mmol/L [facility] Carbon Dioxide 22 22 - 31 mmol/L [facility] Anion Gap 10 5 - 15 mmol/L [facility] Calcium 9.1 8.5 - 10.5 mg/dL [facility] Protein, Total 6.7 6.1 - 8.0 g/dL [facility] Albumin 3.9 3.2 - 5.2 g/dL [facility] Aspartate Aminotransferase 14 0 - 30 unit/L [facility] Alanine Aminotransferase 19 0 - 30 unit/L [facility] Alkaline Phosphatase 67 35 - 105 unit/L [facility] Bilirubin, Total 0.2 0.2 - 1.3 mg/dL [facility] Est Glomerular Filtration Rate 104 >=60 mL/min/1. 73 m?? [facility] Comment: This patient's estimated GFR [...] Rai MD CHEMISTRY ORDERABLES Performing Organization Address [facility]/ZIP Co de Phone Number [facility] [place] [address] * (ABNORMAL) Cancer antigen 15-3 (09/22/2023 12:05 PM EDT) CA 15-3 28(H) <=25 unit/mL [facility] Comment: This result was generated using a Deepak Dequan immunoassay. ??Results obtained from other methods or manufacturers cannot be used interchangeably with this method. Blood 09/22/2023 12:0 5 PM EDT 09/22/2023 12:36 PM EDT Narrative Resulting Agency Comment Spec In Lab Kavitha Rai MD CHEMISTRY ORDERABLES Performing Organization Address [facility] Co de Phone Number [facility] [place] [address] * CEA (09/22/2023 12:05 PM EDT) Carcinoembryonic Antigen 2.8 <=3.8 ng/mL [facility] Comment: Reference range: ??(20-69 years): Non-smoker: ??less than or equal to 3.8 ng/mL Smoker: ??less than 5.5 ng/ml This result was generated using a Deepak Dequan immunoassay. ??Results obtained from other methods or manufacturers cannot be used interchangeably with this method. Blood 09/22/2023 12:0 5 PM EDT 09/22/2023 12:36 PM EDT Narrative Resulting Agency Comment Spec In Lab Consuelo Joyce APRN CHEMISTRY ORDERABLE S [facility] [address] documented in this encounter Visit Diagnoses Diagnosis Malignant neoplasm of overlapping sites of right breast in female, estrogen receptor negative documented in this encounter Care Teams Computer Engineering Technologist Relationship Specialty Start Date End Date Ryan Betancourt MD [address] [phone] PCP - General Family Medicine 07/29/22 documented as of this encounter
--- OUTSIDE RECORDS SUMMARY | 2024-06-01 20:39 | XMS_ITS | Encounter Summary ---
Author Organization [facility] Address [facility] [place] [address] Care Team Providers Care Engineer Automated Equipment Name Role Phone Ryan Betancourt MD Primary Care Provider [phone] Reason for Visit * Reason Comments Follow-up Encounter Details Date Type Department Care Team ([facility] st Contact Info) Description 08/11/2023 2:00 PM EDT Office Visit [place] [phone] Consuelo Joyce APRN [facility] [place] [address] Malignant neoplasm of overlapping sites of right breast in female, estrogen receptor negative; Carcinoma of breast metastatic to bone, unspecified laterality; Medication management Social History Tobacco Use Types [...] Sign Reading Time Taken Comments Blood Pressure 127/81 08/11/2023 1:56 PM EDT Pulse 72 08/11/2023 1:56 PM EDT Temperature 36.7 ??C (98.1 ??F) 08/11/2023 1:56 PM ED T Respiratory Rate 15 08/11/2023 1:56 PM EDT Oxygen Saturation 100% 08/11/2023 1:56 PM EDT Inhaled Oxygen Concentration - - Weight 108.6 kg (239 lb 6.7 oz) 08/11/2023 1:56 PM EDT Height 161.6 cm (5' 3.62) 08/11/2023 1:56 PM ED T Body Mass Index 41.59 08/11/2023 1:56 PM EDT documented in this encounter Progress Notes * Consuelo Joyce, CONDENSER OPERATOR - 08/11/2023 2:00 PM EDT Patient ID: Soy San is [...] plan for every 6 weeks started 02/24/2023. 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 PET CT [...] but she has h/o migraines. No mucositis. 12/02/2022 On THP. Today is cycle #[address] with dramatic improvement with resolution iwht liver and mediastinal Lns and sclerotic bone mets. Residual masses in breast. Headache a couple of days ago resolved Mucositis that lasted for 3 weeks- Good relief from pepcid CIPN: Grade 1: Heels of feet R> L, numbness, itchiness in the front of her foot on and off. Skin on foot: peeling 11/11/2022 On THP. Today is cycle #5. Repeat biopsy to confirm stage 4 disease done 11/04 : sclerotic bone, no mets. Multiple issues: Pain: none GI: soft stool. Nausea starts when steroids wear off. Tuesday to Tuesday worst. Takes Zofran, compazine with minimal effect. Tums , takes a lot Mucosistis: grade 2 starts a week later. Susceptible to cold sores. Has not tried oral cryotherapy Itching in feet: skin changes ( picture taken) . Normally uses cryotherapy for hands and feet AFTERchemo! No CIPN Last imaging 07/28 Markers: downtrending 10/21/22 Seen today prior to C4 THP, accompanied by & mother. Reports she was nauseous for the 1st & 2nd week following infusion. Saw [facility] this morning who made recommendations for her. No vomiting. Diarrhea controlled with Imodium. Tylenol prn for her usual headaches. Breast swelling continues to improve. States she's now able to wear seatbelt & bras without pain or discomfort. No fever, cough, SOB, chest pain, leg swelling, palpitations. Back pain improved to point of normal pain experienced with sitting too long. Reports she's not had to use oxycodone in over 3 weeks. Bone biopsynot yet scheduled. 09/30/22 Here today for C3 THP, accompanied by mother. Nausea & vomiting well controlled with Zofran. Abdominal cramping with diarrhea, some constipation. Using Imodium. Not eating much due to lack of appetite. Fatigue stable. Contact dermatitis on upper left forearm from Tegaderm, improved with topicalsteroid cream. No back pain with oxycodone. No leg swelling. No worsening of SOB prior to bed. Using THC. No longer having chest pain or fever. No neuropathy. States she was not contacted in reference to scheduling bone bx. No mouth sores on inner bottom lip, but feels some irritation. 09/02/2022: THP #2 due next week. After THP #1, she went to a [employer], ate half a salad. This was fine. The next day she feltgreat with a lot of energy, she wonders if due to steroids. She crashed on Tuesday. She notes the following symptoms: 1. Nausea/vomiting x 3 days, treated with pepto-bismol, compazine for Sat/Sun/Mon and this worked for about 1 hour, later had En (delayed picking up Rx to mid-week) and this worked well. 2. Diarrhea with cramping - not treated initially, called our office, tried immodium, total of 4 pills over 2 days. Developed hemorrhoid, using witch ching. Has done sitz baths for these in the past,but not this time. Bleeds a small amt with BM. She continues to have mostly liquid BMs, no longer with belly cramping. No longer taking immodium because she is eating mostly liquid diet and she thinks this is the reason for the soft stool. 3. Rash - she thinks this started on Tuesday but it was more obvious on Tuesday. This was raw and itchy, seeping. Located in the interriginous areas of the groin and under the fold of her pannus. Nothing under her arms or breasts. The rash improved with cream prescribed by us, used for 3 days and hasn't had any itching or issues since then. 4. No appetite, no taste buds, metallic taste in her mouth. Consuming mostly liquid diet to maintain nutrition 5. Pain. Pain in her back is nearly resolved (0-1/10), only notable when bending over or standing up. Hasn't used hot tub for this because concerned about mediport. Sternal pain 1-2/10, notable at rest. With coughing/sneezing goes up to 5-6/10. But this is improved from prior. No longer with disruption to sleep due to pain. 6. Mouth sores on the inside of her lips. She could see and feel them, lasted 4- 5 days. She denies any numbness/tingling in the hands or feet. She noticed improvement in the breast tissue, rash and tissue, and her nipple is returning to the normal configuration. Her breast tissue is less firm. 08/17/2022: Here for follow-up. 08/12/22 mediport placed Echo 08/11: EF 60% MRI T spine: 09/02 To start therapy with THP on 08/19. She endorses pain from mediport site and slight worsening of back pain, pain across upper chest (sternum), and under right axilla. Back pain - 4/10, worse when standing or sitting for long periods of time. ~5 minutes of relief when using hot tub. Chest (sternal) pain - 4-4.5/10, worse when moving, coughing, and sneezing. Intractable to tylenol and ibuprofen. The pain also disrupts her sleep. Breast Cancer History as follows: October 31, 2021 noted some right breast discomfort but did not notice a mass. The next day noted a lump in the right breast in the shower. Subsequently called [facility], seen that day. Examined [...] Pathology: PD IDC + LVI ER negative CA negative Her 2 alexa amplified HER2 TO [...] guided biopsy of bone 11/04/2022. METASTATIC TREATMENT: 08/18/2022: C1 THP 09/09/22: C2 THP 09/30/22: C3 THP 10/21/21: C4 THP 11/11/22: C5 THP 12/02/22: C6 THP 12/23/2022- Herceptin and perjeta alone 02/24/2023; xgeva started 04/28/2023: switch to phesgo PMH: None PSH: tubal ligation 15 years ago MEDS: none ALL: none SH/FH Non smoker Very little ETOH 1 biological child, 22 (autistic and lives in [facility]) OCPs x many years (@ 10 years total ) and depot shot ( @ ) PGA: Breast Cancer: unknown exactly but thinks older Father : MM/amyloid MU: gastric 60s pick up driver and combine driver. 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 She appears well- developed and well-nourished. No distress. Head: Normocephalic. Eyes: Conjunctivae are normal. Pupils are equal, round, and reactive to light. Neck: Normal range of motion. Cardiovascular: Normal rate, regular rhythm and normal heart sounds. Pulmonary/Chest: Effort normal and breath sounds normal. Right breast: No discrete mass or axillary node. Some hyperpigmentation at site of nodules around areola. 2 areas of telangiectasia/redness on upper part of breast ( see picture) Abdominal: Soft. Bowel sounds are normal. There is no tenderness. Musculoskeletal: Normal range of motion. Extremities: no clubbing, cyanosis or edema Neurological: She is alert and oriented to person, place, and time. Gait normal. Skin: Skin is warm and dry. Taxotere nails Psychiatric: She has a normal mood and affect. Her behavior is normal. Lab Results Component Value Date WBC 6.8 08/11/2023 HGB 13.7 08/11/2023 HCT 40.6 08/11/2023 MCV 81.0 (L) 08/11/2023 PLATELET 277 08/11/2023 Lab Results Component Value Date NEUTROABS 4.22 08/11/2023 Lab Results Component Value Date NA 143 [...] [facility] New [facility] findings concerning for recurrent local disease however imaging looks good with sustained response. Breast Cancer: on H&P as Phesgo. [facility] - Excellent clinical response with decreasing markers and resolved breast mass. -Discussed imaging. No evidence on MRI of new disease. Will watch closely - Situation reviewed at breast tumor board 02/22/2023 and no enthusiasm for any primary breast surgery. - fsh and lh appear to be premenopausal, patient remains interested in options to go start menopause surgical or otherwise. -Continue denosumab q6w -order signed for today. Some confusion over q12 or 4 week regiment. Preferq4 week however [facility]. 3. RTC 3 weeks for MD/BOILER RIVETER visit , Phesgo, labs Total time spent: 40 minutes with > 50% spend in discussion of above Future Appointments Date Time Provider Department Center 08/11/2023 3:30 PM LEB INFUSION THERAPY [facility] INF 3K [facility] 09/01/2023 12:15 PM ACCESS ROOM [facility] INF 3K [facility] 09/01/2023 1:20 PM Kavitha Rai MD [facility] HEM ONC [facility] 09/01/2023 3:00 PM LEB INFUSION THERAPY [facility] INF [address] [place] [address] 09/22/2023 12:00 PM ACCESS ROOM [facility] INF [address] [place] [address] 09/22/2023 1:00 PM Kavitha Rai MD [facility] HEM ONC [facility] 09/22/2023 2:30 PM LEB INFUSION THERAPY [facility] INF [address] [place] [address] 10/13/2023 12:00 PM ACCESS ROOM [address] 10/13/2023 1:00 PM Consuelo Joyce APRN [facility] HEM ONC [facility] 10/13/2023 2:30 PM LEB INFUSION THERAPY [address] documented in this encounter Plan of Treatment Upcoming Encounters Date Type Department Care Team (Late st Contact Info) Description 06/14/2024 8:00 AM EST Hospital Encounter [place] [address] Consuelo Joyce APRN [facility] [place] [address] 06/14/2024 8:45 AM EST Appointment XRay at [address] [place] [address] Kavitha Rai MD [facility] DR [place] [address] 06/14/2024 9:45 AM EST Appointment Hematology [place] [address] 06/14/2024 11:00 AM EST Appointment [place] [address] Consuelo Joyce CONDENSER OPERATOR [facility] [place] [address] 06/14/2024 1:00 PM EST Office Visit Hematology [place] [address] Kavitha Rai MD [facility] DR [place] [address] 06/14/2024 2:30 PM EST Appointment Hematology and Oncology at [place] [phone] 07/05/2024 10:30 AM EDT Appointment Hematology and Oncology at [place] [address] 07/05/2024 11:30 AM EDT Office Visit Hematology and Oncology at [address] Consuelo Joyce APRN [facility] [place] [address] 07/05/2024 1:00 PM EDT Appointment Hematology and Oncology at [place] [phone] 08/16/2024 9:20 AM EDT Office Visit Ophthalmology at [place] [address] Luz Jose, CARSON [facility] [place] [address] 01/14/2025 8:30 AM EDT Office Visit Psychiatry and Behavioral Health at [place] [phone] Anna Oneill, PhD [facility] [place] [address] documented as of this encounter Visit Diagnoses Diagnosis Malignant neoplasm of overlapping sites of right breast in female, estrogen receptor negative Carcinoma of breast metastatic to bone, unspecified laterality Medication management Encounter for long-term (current) use of other medications documented in this encounter Care Teams Engineer Automated Equipment Relationship Specialty Start Date End Date Ryan Betancourt MD [address] [place] [phone] PCP - General Family Medicine 07/29/22 documented as of this encounter
--- OUTSIDE RECORDS SUMMARY | 2024-06-01 20:39 | XMS_ITS | Encounter Summary ---
Author Organization [facility] Address [facility] [place] [address] Care Team Providers Care Audograph Operator Name Role Phone Ryan Betancourt MD Primary Care Provider [phone] Encounter Details Date Type Department Care Team (Late st Contact Info) Description 09/29/2023 Notes Only Care Management [facility] [place] [phone] Lilian Gipson, [employer] Social History Tobacco Use Types Packs/Day Years [...] Progress Notes * Lilian Gipson MSW - 09/29/2023 11:36 AM EDT Comprehensive Breast Program Social Work Note I'm able to return call from Soo Vital's [facility] nurse medical case manager. Zahraa reports that Soo needs attestation of her diagnosis in order to work with a navigator via the [facility]: (https://info. 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 Zahraa has provided resources for foundations that include Alejandro Santacruz, Hansel Santiago, and Julio C. I'm able to send letter of attestation to Soo via her [facility] account. Completed today: Care Coordination Willow Gipson (Stephanie) [facility] Breast and Gynecology Oncology [facility] documented in this encounter Plan of Treatment Upcoming Encounters Date Type Department Care Team (Late st Contact Info) Description 06/14/2024 8:00 AM EST Hospital Encounter [place] [phone] Consuelo Joyce APRN [facility] [place] [address] 06/14/2024 8:45 AM EST Appointment XRay at [address] [place] [address] Kavitha Rai MD [facility] [place] [address] 06/14/2024 9:45 AM EST Appointment Hematology and Oncology at [place] [phone] 06/14/2024 11:00 AM EST Appointment Nuclear Medicine at [place] [phone] Consuelo Joyce WING MAILER MACHINE OPERATOR [facility] [place] [address] 06/14/2024 1:00 PM EST Office Visit Hematology and Oncology at [place] [phone] Kavitha Rai MD [facility] [place] [address] 06/14/2024 2:30 PM EST Appointment Hematology and Oncology at [place] [phone] 07/05/2024 10:30 AM EDT Appointment Hematology and Oncology at [place] [phone] 07/05/2024 11:30 AM EDT Office Visit Hematology and Oncology at [place] [phone] Consuelo Joyce [facility] [place] [address] 07/05/2024 1:00 PM EDT Appointment Hematology [place] [address] 08/16/2024 9:20 AM EDT Office Visit Ophthalmology at [place] [phone] Luz Jose, OD [facility] [place] [address] 01/14/2025 8:30 AM EDT Office Visit Psychiatry [place] [address] Anna Oneill, PhD [facility] [place] [address] documented as of this encounter Visit Diagnoses Not on filedocumented in this encounter Care Teams Audograph Operator Relationship Specialty Start Date End Date Ryan Betancourt MD [address] [place] [phone] PCP - General Family Medicine 07/29/22 documented as of this encounter
--- OUTSIDE RECORDS SUMMARY | 2024-06-01 20:39 | XMS_ITS | Encounter Summary ---
Author Organization [facility] Address [facility] [place] [address] Care Team Providers Care Pipe Fitter Supervisor Name Role Phone Ryan Betancourt MD Primary Care Provider Encounter Details Date Type Department Care Team (Latest Contact Info) Description 08/11/2023 Travel Social History Tobacco Use Types Packs/Day [...] AM EST Hospital En[place] [address] Consuelo Joyce APRN [facility] [place] [address] 06/14/2024 8:45 AM EST Appointment XRay at [address] [place] [address] Kavitha Rai MD [facility] [place] [address] 06/14/2024 9:45 AM EST Appointment Hematology [place] [address] 06/14/2024 11:00 AM EST Appointment [place] [address] Consuelo Joyce APRN [facility] [place] [address] 06/14/2024 1:00 PM EST Office Visit Hematology [place] [address] Kavitha Rai MD [facility] [place] [address] 06/14/2024 2:30 PM EST Appointment Hematology [place] [address] 07/05/2024 10:30 AM EDT Appointment Hematology and Oncology at [place] [phone] 07/05/2024 11:30 AM EDT Office Visit Hematology and Oncology at [place] [phone] Consuelo Joyce APRN [facility] [place] [address] 07/05/2024 1:00 PM EDT Appointment Hematology and Oncology at [place] [address] 08/16/2024 9:20 AM EDT Office Visit Ophthalmology at [place] [phone] Luz Jose, OD [facility] [place] [address] 01/14/2025 8:30 AM EDT Office Visit Psychiatry and Behavioral Health at [place] [address] Anna Oneill, PhD [facility] [place] [address] documented as of this encounter Visit Diagnoses Not on filedocumented in this encounter Care Teams Pipe Fitter Supervisor Relationship Specialty Start Date End Date Ryan Betancourt MD [address] [place] [phone] PCP - General Family Medicine 07/29/22 documented as of this encounter
--- OUTSIDE RECORDS SUMMARY | 2024-06-01 20:40 | XMS_ITS | Encounter Summary ---
[place] [address] Care Team Providers Care Drugless Doctor Name Role Phone Ryan Betancourt MD Primary Care Provider [phone] Reason for Referral * Diagnostic Test (Routine) - Closed Specialty Diagnoses / Procedures Referred By Ciaran lopez Referred To Contact Radiology Diagnoses Malignant neoplasm of overlapping sites of right breast in female, estrogen receptor negative Procedures MRI Breast wwo Contrast Kavitha Benavides MD [facility] DR HEMATOLOGY [place] [address] [place] [address] Referral ID Status Reason Start Date Expiration Date V isits Requested Visits Authorized [id number] Closed Specialty Service Requested 06/09/2023 12/07/2024 1 1 Reason for Visit * Diagnostic Test (Routine) - Closed Specialty Diagnoses / Procedures Referred By Ciaran lopez Referred To Contact Radiology Diagnoses Malignant neoplasm of overlapping sites of right breast in female, estrogen receptor negative Procedures MRI Breast wwo Contrast Kavitha Benavides MD [facility] DR HEMATOLOGY [place] [address] [place] [address] Referral ID Status Reason Start Date Expiration Date V isits Requested Visits Authorized [id number] Closed Specialty Service Requested 06/09/2023 12/07/2024 1 1 Encounter Details Date Type Department Care Team (Latest Contact Info) Description 06/23/2023 4:46 PM EST - 06/23/2023 11:59 PM EST Hospital Encounter MRI at [facility] [place] [address] Kavitha Rai MD [facility] DR HEMATOLOGY [place] [address] Malignant neoplasm of overlapping sites of right [...] AM EST Hospital Encounter [place] [phone] Consuelo Joyce APRN [facility] [place] [address] 06/14/2024 8:45 AM EST Appointment XRay at [address] [place] [address] Kavitha Rai MD [facility] HEMATOLOGY [place] [address] 06/14/2024 9:45 AM EST Appointment Hematology and Oncology at [address] 06/14/2024 11:00 AM EST Appointment Nuclear Medicine at [address] Consuelo Joyce APRN [facility] [place] [address] 06/14/2024 1:00 PM EST Office Visit Hematology and Oncology at [address] Kavitha Rai MD [facility] DR HEMATOLOGY [place] [address] 06/14/2024 2:30 PM EST Appointment Hematology and Oncology at [place] [phone] 07/05/2024 10:30 AM EDT Appointment Hematology and Oncology at [address] 07/05/2024 11:30 AM EDT Office Visit Hematology and Oncology at [place] [phone] Consuelo Joyce MAP COL[employer] [facility] [place] [address] 07/05/2024 1:00 PM EDT Appointment Hematology and Oncology at [place] [phone] 08/16/2024 9:20 AM EDT Office Visit Ophthalmology at [place] [phone] Luz Jose OD [facility] [place] [address] 01/14/2025 8:30 AM EDT Office Visit Psychiatry [place] [phone] Anna Oneill, PhD [facility] [place] [address] documented as of this encounter Procedures Procedure Name Priority Date/Time Associated Diagnosis Comments MRI BREAST WWO CONTRAST BILAT Routine 06/23/2023 7:06 PM EST Malignant neoplasm of overlapping sites of right breast in female, estrogen receptor negative documented in this encounter Results * MRI Breast wwo Contrast Bilat (06/23/2023 7:06 PM EST) Anatomical Region Laterality Modality Breast Bilateral Magnetic Resonan ce Impressions 06/24/2023 4:32 PM EST 1. ??Persistent 3 cm area of nonmass enhancement in the right mid-upper breast at site of biopsy-proven malignancy. This may represent incomplete response with residual viable malignancy or posttreatment effect. 2. ??Continued resolution of right axillary adenopathy. 3. ??Decrease in enhancement of the sternal lesion. 4. ??Persistent, left inferior medial breast dermal enhancement, possibly inflammatory. Recommend correlation with physical exam. RECOMMENDATION: Surgical/oncologic management. FINAL ASSESSMENT: BI-RADS Category 6: Known Biopsy-Proven Malignancy I have personally reviewed the image(s) and the resident's interpretation and agree with the findings, Jyothi Askew MD at 06/24/2023 4:32 PM Thank you for letting us participate in the care of this patient. ??If you are a health care provider and have any questions regarding this report, please contact the number below. ??For patients who have questions please contact the health rn intensive care unit that requested your imaging first. ? Narrative 06/24/2023 4:32 PM EST EXAMINATION: MRI BREAST WWO CONTRAST BILAT CLINICAL INDICATION: new pain in right breast similar to when was diagnosed . Has an intact breast primary. History stage 4 HER2+ breast cancer with locally advanced breast cancer on the right s/p THP. TECHNIQUE: Multiplanar sequences were obtained pre- and post- Dotarem enhancement, to include SPGR weighted dynamic run-off and subtraction sequences obtained after the intravenous administration of 20 ccs of Dotarem. Computer algorithm analysis for lesion detection and kinetic contrast enhancement curve analysis was performed, using Pure life renal software. COMPARISON STUDIES: Compared and/or correlated with prior studies including MRI 01/11/2023. FINDINGS: Background Parenchymal Enhancement: Mild Amount of Fibroglandular Tissue: Heterogeneous fibroglandular tissue LEFT Breast: Patchy dermal enhancement along the lower inner breast margin. Susceptibility artifact the in the superior medial breast from adjacent subcutaneous port. No intraparenchymal mass. RIGHT Breast: Stable size and distribution of clumped nonmass enhancement anterosuperior to the biopsy clip in the mid-deep central breast measuring approximately 3 x 3 cm. No new areas of mass or nonmass enhancement. No recurrent masses. There is persistent but improving skin thickening. Lymph Node Basins/Other: Continued resolution of adenopathy with normal-appearing lymph nodes present. There is mild residual enhancement of the sternum with no focal sternal lesion. Kavitha Rai MD IMG MRI ORDERABLES documented [...] ONCE PRN, 1 dose, Starting on Yvette 06/23/23 at 1829, Until Yvette 06/23/23 at 1847, Per Protocol, Radiology Contrast, Routine Given 06/23/2023 6:47 PM EST 20 mLs documented in this encounter Care Teams Drugless Doctor Relationship Specialty Start Date End Date Ryan Betancourt MD [address] [place] [phone] PCP - General Family Medicine 07/29/22 documented as of this encounter
--- OUTSIDE RECORDS SUMMARY | 2024-06-01 20:40 | XMS_ITS | Encounter Summary ---
Author Organization [facility] [place] [address] Care Team Providers Care Bat Lathe Operator Name Role Phone Ryan Betancourt MD Primary Care Provider [phone] Reason for Visit * Treatment/Therapy Plan Authorization (Routine) - Closed Specialty Diagnoses / Procedures Referred By Ciaran lopez Referred To Contact Diagnoses Malignant neoplasm of overlapping sites of right breast in female, estrogen receptor negative Procedures -PHESGO (PERTUZUMAB TRASTUZUMAB & HYALURONIDASE-ZZXF) Kavitha Rai MD [facility] DR [place] [address] [facility] Hem Onc [address] [place] [address] Referral ID Status Reason Start Date Expiration Date Visits Re quested Visits Authorized [id number] Closed 04/07/2023 04/06/2024 1 106 Encounter Details Date Type Department Care Team (Latest Contact Info) Description 07/21/2023 1:07 PM EDT - 07/21/2023 11:59 PM EDT Hospital Encounter Hematology [place] [address] Malignant neoplasm of overlapping sites [...] of this encounter Progress Notes * Day Kang RN - 07/21/2023 4:17 PM EDT Patient Name: Soy San Patient Age: 42 y.o. Birthdate: 1980 Admit date: 07/21/2023 Attending Physician: No att. providers found TIME TREATMENT STARTED: 1600 TIME TREATMENT ENDED: 1615 Soy San, 42 y.o. female with diagnosis of Breast Ca is here for SC Phesgo CYCLE: 5 DAY: 1 S: Pt. offers no complaints at this time. O: Chemotherapy orders independently verified for correct drug name, route and dosage per patient'sheight, weight and BSA by Day Kang RN and onsite pharmacist REACTIONS (DESCRIPTION, TIME, INTERVENTION AND EFFECTIVENESS) None A: Pt. Tolerated treatment well. Soy San confirms that all questions and issues have been addressed. P: Return to clinic as scheduled. Pt. chemo teaching instructions included: During clinic hours (8am-5pm Tuesday-Tuesday): pt. can call [phone] with questions or concerns. After clinic hours (5pm-8am Tuesday-Tuesday and weekends) pt can call [phone] and ask for the network control supervisor/oncologist campus monitor. Soo verbalized understanding of potential chemotherapy side [...] AM EST Hospital Encounter [place] [address] [facility]uelo [facility] [place] [address] 06/14/2024 8:45 AM EST Appointment XRay at [address] [place] [address] Kavitha Rai MD [facility] DR [place] [address] 06/14/2024 9:45 AM EST Appointment Hematology [place] [address] 06/14/2024 11:00 AM EST Appointment [place] [address] Consuelo Joyce [facility] [place] [address] 06/14/2024 1:00 PM EST Office Visit Hematology [place] [address] Kavitha Rai MD [facility] DR [place] [address] 06/14/2024 2:30 PM EST Appointment Hematology [place] [phone] 07/05/2024 10:30 AM EDT Appointment Hematology and Oncology at [place] [phone] 07/05/2024 11:30 AM EDT Office Visit Hematology and Oncology at [place] [phone] Consuelo Joyce APRN [facility] [place] [address] 07/05/2024 1:00 PM EDT Appointment Hematology and Oncology at [address] 08/16/2024 9:20 AM EDT Office Visit Ophthalmology at [place] [phone] Luz Jose, [facility] [place] [address] 01/14/2025 8:30 AM EDT Office Visit Psychiatry and Behavioral Health at [place] [address] Anna Oneill, PhD [facility] [place] [address] documented as of this encounter Results * (ABNORMAL) Cancer antigen 15-3 (07/21/2023 1:19 PM EDT) CA 15-3 32(H) <=25 unit/mL [facility] Comment: This result was generated using a Deepak Dequan immunoassay. ??Results obtained from other methods or manufacturers cannot be used interchangeably with this method. Blood 07/21/2023 1:19 PM EDT 07/21/2023 1:56 PM EDT Narrative Resulting Agency Comment Spec In Lab Consuelo Joyce APRN CHEMISTRY ORDERABLE S [facility] [place] [address] * (ABNORMAL) Comprehensive metabolic panel (non-fasting) (07/21/2023 1:19 PM EDT) Glucose 101 65 - 199 mg/dL [facility] Comment:Diabetes: >=200 mg/d L plus symptoms Blood Urea Nitrogen 15 8 - 18 mg/dL [facility] Creatinine 0.67(L) 0.70 - 1.20 mg/dL [facility] Sodium 141 135 - 145 mmol/L [facility] Potassium 3.7 3.5 - 5.0 mmol/L [facility] Comment: Please note: ??Patients with WBC >100,000 may have falsely elevated Potassium levels. ??For accurate Potassium quantification in these patients send serum separator tube (gold top) for subsequent determinations. ??Contact the Clinical Chemistry Laboratory if there are any questions. Chloride 106 98 - 107 mmol/L [facility] Carbon Dioxide 26 22 - 31 mmol/L [facility] Anion Gap 9 5 - 15 mmol/L [facility] Calcium 8.8 8.5 - 10.5 mg/dL [facility] Protein, Total 6.9 6.1 - 8.0 g/dL [facility] Albumin 4.3 3.2 - 5.2 g/dL [facility] Aspartate Aminotransferase 13 0 - 30 unit/L [facility] Alanine Aminotransferase 21 0 - 30 unit/L [facility] Alkaline Phosphatase 66 35 - 105 unit/L [facility] Bilirubin, Total 0.4 0.2 - 1.3 mg/dL [facility] Est Glomerular Filtration Rate 110 >=60 mL/min/1. 73 m?? [facility] Comment: This patient's estimated [...] and symptoms in addition to eGFR. Blood 07/21/2023 1:19 PM EDT 07/21/2023 1:56 PM EDT Narrative Resulting Agency Comment Spec In Lab Consuelo Joyce APRN CHEMISTRY ORDERABLE S Performing Organization Address [facility] Co de Phone Number [facility] [place] [address] * CEA (07/21/2023 1:19 PM EDT) Carcinoembryonic Antigen 2.4 <=3.8 ng/mL [facility] Comment: Reference range: ??(20-69 years): Non-smoker: ??less than or equal to 3.8 ng/mL Smoker: ??less than 5.5 ng/ml This result was generated using a Deepak Dequan immunoassay. ??Results obtained from other methods or manufacturers cannot be used interchangeably with this method. Blood 07/21/2023 1:19 PM EDT 07/21/2023 1:56 PM EDT Narrative Resulting Agency Comment Spec In Lab Consuelo Joyce PIPE TESTER CHEMISTRY ORDERABLE S Performing Organization Address [facility] Co de Phone Number [facility] [place] [address] documented in this encounter Visit Diagnoses Diagnosis [...] over 5 Minutes, ONCE, 1 dose, On Tue07/21/23 at 1615, Observe patients for infusion-related reactions [...] being given as an outpatient? Yes Given 07/21/2023 3:51 PM EDT 1,200 mg 20-Other (document in comment section) documented in this encounter Care Teams Bat Lathe Operator Relationship Specialty Start Date End Date Ryan Betancourt MD [address] [place] [phone] PCP - General Family Medicine 07/29/22 documented as of this encounter
--- OUTSIDE RECORDS SUMMARY | 2024-06-01 20:40 | XMS_ITS | Encounter Summary ---
Author Organization [facility] [place] [address] Care Team Providers Care Sewing Machine Attachment Tester Name Role Phone Ryan Betancourt MD Primary Care Provider [phone] Reason for Visit * Treatment/Therapy Plan Authorization (Routine) - Closed Specialty Diagnoses / Procedures Referred By Ciaran lopez Referred To Contact Diagnoses Malignant neoplasm of overlapping sites of right breast in female, estrogen receptor negative Procedures -PHESGO (PERTUZUMAB TRASTUZUMAB & HYALURONIDASE-ZZXF) Kavitha Rai MD [facility] [address] [place] [address] [facility] [address] [place] [address] Referral ID Status Reason Start Date Expiration Date Visits Re quested Visits Authorized [id number] Closed 04/07/2023 04/06/2024 1 106 Encounter Details Date Type Department Care Team (Latest Contact Info) Description 06/30/2023 12:00 PM EDT - 06/30/2023 12:07 PM EDT Hospital Encounter Hematology [place] [address] Malignant neoplasm of overlapping [...] as of this encounter Progress Notes * Clemencia Sandy RN - 06/30/2023 12:32 PM EDT Patient Name: Soy San Patient Age: 42 y.o. Birthdate: 1980 Admit date: 06/30/2023 Attending Physician: No att. providers found Access visit. See MAR and/or flowsheet. documented in this encounter Plan of Treatment Upcoming Encounters Date Type Department Care Team (Late st Contact Info) Description 06/14/2024 8:00 AM EST Hospital Encounter [place] [address] Consuelo Joyce APRN [facility] [place] [address] 06/14/2024 8:45 AM EST Appointment XRay at [address] [place] [phone] Kavitha Rai MD [facility] [address] [place] [address] 06/14/2024 9:45 AM EST Appointment Hematology [place] [phone] 06/14/2024 11:00 AM EST Appointment Nuclear Medicine at [place] [address] Consuelo Joyce APRN [facility] [place] [address] 06/14/2024 1:00 PM EST Office Visit Hematology and Oncology at [place] [address] Kavitha Rai MD [facility] [address] [place] [address] 06/14/2024 2:30 PM EST Appointment Hematology and Oncology at [place] [address] 07/05/2024 10:30 AM EDT Appointment Hematology and Oncology at [place] [address] 07/05/2024 11:30 AM EDT Office Visit Hematology and Oncology at [place] [address] Consuelo Joyce APRN [facility] [place] [address] 07/05/2024 1:00 PM EDT Appointment Hematology and Oncology at [place] [address] 08/16/2024 9:20 AM EDT Office Visit Ophthalmology at [place] [address] Luz Jose, CARSON [facility] [place] [address] 01/14/2025 8:30 AM EDT Office Visit Psychiatry and Behavioral Health at [place] [address] Anna Oneill, PhD [facility] [address] documented as of this encounter Procedures Procedure Name Priority Date/Time Associated Diagnosis Comments HEMOGRAM STAT 06/30/2023 12:30 PM EDT Malignant neoplasm of overlapping sites of right breast in female, estrogen receptor negative DIFFERENTIAL, AUTOMATED STAT 06/30/2023 12:30 PM EDT Malignant neoplasm of overlapping sites of right breast in female, estrogen receptor negative CANCER ANTIGEN 15-3 STAT 06/30/2023 1 2:30 PM EDT Malignant neoplasm of overlapping sites of right breast in female, estrogen receptor negative CBC (WITH DIFF) STAT 06/30/2023 12:30 PM EDT Malignant neoplasm of overlapping sites of right breast in female, estrogen receptor negative COMPREHENSIVE METABOLIC PANEL STAT 06/30/2023 12:30 PM EDT Malignant neoplasm of overlapping sites of right breast in female, estrogen receptor negative documented in this encounter Results * Differential, Automated (06/30/2023 12:30 PM EDT) Neutrophil % 64.4 % [facility] Neutrophil Absolute 4.66 1.70 - 6.10 x10(3)/[facility] Lymph % 27.9 % [facility] Lymphocytes Abs 2.0 0.9 - 3.2 x10(3)/[facility] Monocyte % 4.3 % [facility] Monocyte Abs 0.3 0.3 - 0.9 x10(3)/[facility] Eos % 2.8 % [facility] Eosinophils Abs 0.2 0.0 - 0.4 x10(3)/[facility] Basophil % 0.3 % [facility] Baso Absolute 0.0 0.0 - 0.1 x10(3)/[facility] Immature Gran % 0.30 % [facility] Comment: Immature granulocytes(IG's)percentage and absolute count will include metamyelocytes, myelocytes, and promyelocytes. Blood smears from CBCs yielding IG's will be scanned manually for concordance. If this scan disagrees with the automated IG or if promyelocytes are noted, a manual differential will be performed. Immature Gran Absolute 0.02 0.00 - 0.04 x10(3)/mcL [facility] Blood 06/30/2023 12:3 0 PM EDT 06/30/2023 12:57 PM EDT Narrative Resulting Agency Comment Spec In Lab Kavitha Rai MD HEMATOLOGY ORDERABLE S [facility] [place] [address] * (ABNORMAL) Hemogram (06/30/2023 12:30 PM EDT) White Blood Cell 7.2 4.0 - 9.5 x10(3)/mc L [facility] Red Blood Cell 4.74 4.00 - 5.21 x10(6)/mc L [facility] Hemoglobin 13.1 11.7 - 15.5 g/dL [facility] Hematocrit 39.1 35.7 - 45.8 % [facility] Mean Cell Volume 82.5(L) 82.6 - 94.4 fL [facility] Mean Cell Hemoglobin 27.6 27.1 - 32.0 pg [facility] Mean Cell Hemoglobin Concentration 33.5 31.7 - 35.0 g/dL [facility] Platelet 252 145 - 357 x10(3)/mc L [facility] RDW Standard Deviation 40.9 37.0 - 46.0 fL [facility] RDW coefficient of variation 13.7 11.5 - 14.1 % [facility] Mean Platelet Volume 10.5 7.6 - 12.9 fL [facility] NRBC% auto 0.0 % [facility] NRBC Absolute 0.000 0.000 - 0.000 x10(3)/mc L [facility] Blood 06/30/2023 12:3 0 PM EDT 06/30/2023 12:57 PM EDT Narrative Resulting Agency Comment Spec In Lab Kavitha Rai MD HEMATOLOGY ORDERABLE S Performing Organization Address [facility]/ZIP Co de Phone Number [facility] [place] [address] * (ABNORMAL) Cancer antigen 15-3 (06/30/2023 12:30 PM EDT) CA 15-3 28(H) <=25 unit/mL [facility] Comment: This result was generated using a Deepak Dequan immunoassay. ??Results obtained from other methods or manufacturers cannot be used interchangeably with this method. Blood 06/30/2023 12:3 0 PM EDT 06/30/2023 12:57 PM EDT Narrative Resulting Agency Comment Spec In Lab Kavitha Rai MD CHEMISTRY ORDERABLES Performing Organization Address [facility] Co de Phone Number [facility] [place] [address] * (ABNORMAL) Comprehensive metabolic panel (non-fasting) (06/30/2023 12:30 PM EDT) Glucose 116 65 - 199 mg/dL [facility] Comment:Diabetes: >=200 mg/d L plus symptoms Blood Urea Nitrogen 13 8 - 18 mg/dL [facility] Creatinine 0.66(L) 0.70 - 1.20 mg/dL [facility] Sodium 139 135 - 145 mmol/L [facility] Potassium 3.4(L) 3.5 - 5.0 mmol/L [facility] Comment: Please note: ??Patients with WBC >100,000 may have falsely elevated Potassium levels. ??For accurate Potassium quantification in these patients send serum separator tube (gold top) for subsequent determinations. ??Contact the Clinical Chemistry Laboratory if there are any questions. Chloride 104 98 - 107 mmol/L [facility] Carbon Dioxide 26 22 - 31 mmol/L [facility] Anion Gap 9 5 - 15 mmol/L [facility] Calcium 9.3 8.5 - 10.5 mg/dL [facility] Protein, Total 6.4 6.1 - 8.0 g/dL [facility] Albumin 3.9 3.2 - 5.2 g/dL [facility] Aspartate Aminotransferase 14 0 - 30 unit/L [facility] Alanine Aminotransferase 17 0 - 30 unit/L [facility] Alkaline Phosphatase 70 35 - 105 unit/L [facility] Bilirubin, Total <0.2(L) 0.2 - 1.3 mg/dL [facility] Est Glomerular Filtration Rate 111 >=60 mL/min/1. 73 m?? [facility] Comment: This patient's estimated GFR [...] and symptoms in addition to eGFR. Blood 06/30/2023 12:3 0 PM EDT 06/30/2023 12:57 PM EDT Narrative Resulting Agency Comment Spec In Lab Kavitha Rai MD CHEMISTRY ORDERABLES [facility] [place] [id number] documented in this encounter Visit Diagnoses Diagnosis [...] EVERY 1 MIN PRN, Starting on Yvette 06/30/23 at 1209, Until Tue07/01/23 at 0435, Line Care, Flush pertains to all indwelling lines. Flush per protocol found in the job aid using the link provided on this medication record. Refer to Intravenous (IV) Job Aid: Adult Flushing & Catheter Care (9467) job aid for additional information regarding guidelines and administration., Routine Given 06/30/2023 12:31 PM EDT 20 mLs documented in this encounter Care Teams Sewing Machine Attachment Tester Relationship Specialty Start Date End Date Ryan Betancourt MD [address] [place] [phone] PCP - General Family Medicine 07/29/22 documented as of this encounter
--- OUTSIDE RECORDS SUMMARY | 2024-06-01 20:40 | XMS_ITS | Encounter Summary ---
Author Organization [facility] [place] [address] Care Team Providers Care Front Office Director Name Role Phone Ryan Betancourt MD Primary Care Provider [phone] Reason for Visit * Treatment/Therapy Plan Authorization (Routine) - Closed Specialty Diagnoses / Procedures Referred By Ciaran lopez Referred To Contact Diagnoses Malignant neoplasm of overlapping sites of right breast in female, estrogen receptor negative Procedures -PHESGO (PERTUZUMAB TRASTUZUMAB & HYALURONIDASE-ZZXF) Kavitha Rai MD [facility] [address] [place] [address] [facility] [address] [place] [address] Referral ID Status Reason Start Date Expiration Date Visits Re quested Visits Authorized [id number] Closed 04/07/2023 04/06/2024 1 106 Encounter Details Date Type Department Care Team (Latest Contact Info) Description 08/11/2023 12:48 PM EDT - 08/11/2023 11:59 PM EDT Hospital Encounter Hematology [place] [phone] Malignant neoplasm of overlapping sites [...] Progress Notes * Kenzie Reyes RN - 08/11/2023 1:01 PM EDT Patient Name: Soy San Patient Age: 42 y.o. Birthdate: 1980 Admit date: 08/11/2023 Attending Physician: No att. providers found Access visit. See MAR and/or flowsheet. documented in this encounter Plan of Treatment Upcoming Encounters Date Type Department Care Team (Late st Contact Info) Description 06/14/2024 8:00 AM EST Hospital Encounter [place] [address] Consuelo Joyce APRN [facility] [place] [address] 06/14/2024 8:45 AM EST Appointment XRay at [address] [place] [phone] Kavitha Rai MD [facility] [address] [place] [address] 06/14/2024 9:45 AM EST Appointment Hematology [place] [phone] 06/14/2024 11:00 AM EST Appointment Nuclear Medicine at [place] [address] Consuelo Joyce APRN [facility] [place] [address] 06/14/2024 1:00 PM EST Office Visit Hematology and Oncology at [place] [address] Kavitha Rai MD [facility] [address] [place] [address] 06/14/2024 2:30 PM EST Appointment Hematology [place] [phone] 07/05/2024 10:30 AM EDT Appointment Hematology and Oncology at [place] [address] 07/05/2024 11:30 AM EDT Office Visit Hematology and Oncology at [place] [address] Consuelo Joyce [employer] [facility] [place] [address] 07/05/2024 1:00 PM EDT Appointment Hematology and Oncology at [place] [address] 08/16/2024 9:20 AM EDT Office Visit Ophthalmology at [place] [address] Luz Jose, CARSON [facility] [place] [address] 01/14/2025 8:30 AM EDT Office Visit Psychiatry and Behavioral Health at [place] [address] Anna Oneill, PhD [facility] [place] [address] documented as of this encounter Procedures Procedure Name Priority Date/Time Associated Diagnosis Comments CANCER ANTIGEN 15-3 STAT 08/11/2023 1 :00 PM EDT Malignant neoplasm of overlapping sites of right breast in female, estrogen receptor negative CEA Routine 08/11/2023 1:00 PM EDT Malignant neoplasm of overlapping sites of right breast in female, estrogen receptor negative COMPREHENSIVE METABOLIC PANEL STAT 08/11/2023 1:00 PM EDT Malignant neoplasm of overlapping sites of right breast in female, estrogen receptor negative HEMOGRAM STAT 08/11/2023 1:00 PM EDT Malignant neoplasm of overlapping sites of right breast in female, estrogen receptor negative DIFFERENTIAL, AUTOMATED STAT 08/11/2023 1:00 PM EDT Malignant neoplasm of overlapping sites of right breast in female, estrogen receptor negative CBC (WITH DIFF) STAT 08/11/2023 1:00 PM EDT Malignant neoplasm of overlapping sites of right breast in female, estrogen receptor negative documented in this encounter Results * (ABNORMAL) Cancer antigen 15-3 (08/11/2023 1:00 PM EDT) CA 15-3 28(H) <=25 unit/mL [facility] Comment: This result was generated using a Deepak Dequan immunoassay. ??Results obtained from other methods or manufacturers cannot be used interchangeably with this method. Blood 08/11/2023 1:00 PM EDT 08/11/2023 1:07 PM EDT Narrative Resulting Agency Comment Spec In Lab Kavitha Rai MD CHEMISTRY ORDERABLES [facility] [place] [address] * Comprehensive metabolic panel (non-fasting) (08/11/2023 1:00 PM EDT) Glucose 115 65 - 199 mg/dL [facility] Comment:Diabetes: >=200 mg/d L plus symptoms Blood Urea Nitrogen 15 8 - 18 mg/dL [facility] Creatinine 0.78 0.70 - 1.20 mg/dL [facility] Sodium 143 135 - 145 mmol/L [facility] Potassium 3.5 3.5 - 5.0 mmol/L [facility] Comment: Please note: ??Patients with WBC >100,000 may have falsely elevated Potassium levels. ??For accurate Potassium quantification in these patients send serum separator tube (gold top) for subsequent determinations. ??Contact the Clinical Chemistry Laboratory if there are any questions. Chloride 107 98 - 107 mmol/L [facility] Carbon Dioxide 26 22 - 31 mmol/L [facility] Anion Gap 10 5 - 15 mmol/L [facility] Calcium 8.9 8.5 - 10.5 mg/dL [facility] Protein, Total 6.7 6.1 - 8.0 g/dL [facility] Albumin 3.9 3.2 - 5.2 g/dL [facility] Aspartate Aminotransferase 16 0 - 30 unit/L [facility] Alanine Aminotransferase 21 0 - 30 unit/L [facility] Alkaline Phosphatase 80 35 - 105 unit/L [facility] Bilirubin, Total 0.2 0.2 - 1.3 mg/dL [facility] Est Glomerular Filtration Rate 96 >=60 mL/min/1. 73 m?? [facility] Comment: This patient's estimated [...] and symptoms in addition to eGFR. Blood 08/11/2023 1:00 PM EDT 08/11/2023 1:07 PM EDT Narrative Resulting Agency Comment Spec In Lab Kavitha Rai MD CHEMISTRY ORDERABLES Performing Organization Address [facility] Co de Phone Number [facility] [place] [address] * CEA (08/11/2023 1:00 PM EDT) [facility] Carcinoembryonic Antigen 2.3 <=3.8 ng/mL [facility] Comment: Reference range: ??(20-69 years): Non-smoker: ??less than or equal to 3.8 ng/mL Smoker: ??less than 5.5 ng/ml This result was generated using a Deepak Dequan immunoassay. ??Results obtained from other methods or manufacturers cannot be used interchangeably with this method. Blood 08/11/2023 1:00 PM EDT 08/11/2023 1:07 PM EDT Narrative Resulting Agency Comment Spec In Lab Kavitha Rai MD CHEMISTRY ORDERABLES Performing Organization Address [facility] de Phone Number [facility] [place] [address] * Differential, Automated (08/11/2023 1:00 PM EDT) Pathologist [facility] Neutrophil % 62.1 % [facility] Neutrophil Absolute 4.22 1.70 - 6.10 x10(3)/[facility] Lymph % 31.0 % [facility] Lymphocytes Abs 2.1 0.9 - 3.2 x10(3)/[facility] Monocyte % 3.8 % [facility] Monocyte Abs 0.3 0.3 - 0.9 x10(3)/[facility] Eos % 2.6 % [facility] Eosinophils Abs 0.2 0.0 - 0.4 x10(3)/[facility] Basophil % 0.4 % [facility] Baso Absolute 0.0 0.0 - 0.1 x10(3)/[facility] Immature Gran % 0.10 % [facility] Comment: Immature granulocytes(IG's)percentage and absolute count will include metamyelocytes, myelocytes, and promyelocytes. Blood smears from CBCs yielding IG's will be scanned manually for concordance. If this scan disagrees with the automated IG or if promyelocytes are noted, a manual differential will be performed. Immature Gran Absolute 0.01 0.00 - 0.04 x10(3)/[facility] Blood 08/11/2023 1:00 PM EDT 08/11/2023 1:07 PM EDT Narrative Resulting Agency Comment Spec In Lab Kavitha Rai MD HEMATOLOGY ORDERABLE S Performing Organization Address City/State/[facility] Co de Phone Number [facility] [place] [address] * (ABNORMAL) Hemogram (08/11/2023 1:00 PM EDT) White Blood Cell 6.8 4.0 - 9.5 x10(3)/mc L [facility] Red Blood Cell 5.01 4.00 - 5.21 x10(6)/mc L [facility] Hemoglobin 13.7 11.7 - 15.5 g/dL [facility] Hematocrit 40.6 35.7 - 45.8 % [facility] Mean Cell Volume 81.0(L) 82.6 - 94.4 fL [facility] Mean Cell Hemoglobin 27.3 27.1 - 32.0 pg [facility] Mean Cell Hemoglobin Concentration 33.7 31.7 - 35.0 g/dL [facility] Platelet 277 145 - 357 x10(3)/mc L [facility] RDW Standard Deviation 39.1 37.0 - 46.0 fL [facility] RDW coefficient of variation 13.3 11.5 - 14.1 % [facility] Mean Platelet Volume 9.8 7.6 - 12.9 fL [facility] NRBC% auto 0.0 % [facility] NRBC Absolute 0.000 0.000 - 0.000 x10(3)/mc L [facility] Blood 08/11/2023 1:00 PM EDT 08/11/2023 1:07 PM EDT Narrative Resulting Agency Comment Spec In Lab Kavitha Rai MD HEMATOLOGY ORDERABLE S [facility] [place] [address] documented in this encounter Visit Diagnoses Diagnosis [...] EVERY 1 MIN PRN, Starting on Yvette 08/11/23 at 1250, Until Tue08/12/23 at 0434, Line Care, Flush pertains to all indwelling lines. Flush per protocol found in the job aid using the link provided on this medication record. Refer to Intravenous (IV) Job Aid: Adult Flushing & Catheter Care (5888) job aid for additional information regarding guidelines and administration., Routine Given 08/11/2023 1:00 PM EDT 20 mLs documented in this encounter Care Teams Front Office Director Relationship Specialty Start Date End Date Ryan Betancourt MD [address] [place] [phone] PCP - General Family Medicine 07/29/22 documented as of this encounter
--- OUTSIDE RECORDS SUMMARY | 2024-06-01 20:40 | XMS_ITS | Encounter Summary ---
Author Organization [facility] Address [facility] [place] [address] Care Team Providers Care Shirt Hemmer Name Role Phone Ryan Betancourt MD Primary Care Provider [phone] Reason for Visit * Reason Comments Follow-up Encounter Details Date Type Department Care Team ([facility] st Contact Info) Description 06/30/2023 1:00 PM EDT Office Visit Hematology [place] [phone] Kavitha Rai MD [facility] DR HEMATOLOGY [place] [address] Malignant neoplasm of overlapping sites of right [...] Sign Reading Time Taken Comments Blood Pressure 143/96 06/30/2023 1:03 PM EDT Pulse 83 06/30/2023 1:03 PM EDT Temperature 36 ??C (96.8 ??F) 06/30/2023 1:03 PM EDT Respiratory Rate 15 06/30/2023 1:03 PM EDT Oxygen Saturation 100% 06/30/2023 1:03 PM EDT Inhaled Oxygen Concentration - - Weight 108.2 kg (238 lb 8.6 oz) 06/30/2023 1:03 PM EDT Height 161.6 cm (5' 3.62) 06/30/2023 1:03 PM ED T Body Mass Index 41.43 06/30/2023 1:03 PM EDT documented in this encounter Progress Notes * Kavitha Rai MD - 06/30/2023 1:00 PM EDT Patient ID: Soy San [...] plan for every 6 weeks started 02/24/2023. 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 PET CT 04/07/2023: [...] 1st & 2nd week following infusion. Saw [facility] this morning who made recommendations for her. [...] After THP #1, she went to a bowling banquet, ate half a salad. This was fine. 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 Lab Results Component Value Date WBC 7.2 06/30/2023 HGB 13.1 06/30/2023 HCT 39.1 06/30/2023 MCV 82.5 (L) 06/30/2023 PLATELET 252 06/30/2023 Lab Results Component Value Date NEUTROABS 4.66 06/30/2023 Lab Results Component Value Date NA 139 06/30/2023 K 3.4 (L) 06/30/2023 CL 104 06/30/2023 CO2 26 06/30/2023 BUN 13 06/30/2023 CREATININE 0.66 (L) 06/30/2023 GLUCOSE 116 06/30/2023 CALCIUM 9.3 06/30/2023 ESTGFR 111 06/30/2023 Lab Results Component Value Date ALT 17 06/30/2023 AST 14 06/30/2023 ALKPHOS 70 06/30/2023 BILITOT <0.2 (L) 06/30/2023 ALBUMIN 3.9 06/30/2023 PROT 6.4 06/30/2023 CEA (ng/mL) Date Value 03/17/2023 2.1 01/13/2023 2.0 12/23/2022 2.8 11/11/2022 3.4 10/21/2022 2.8 CA 15-3 (unit/mL) Date Value 06/30/2023 28 (H) 06/09/2023 28 (H) 05/19/2023 29 (H) 04/28/2023 29 (H) 04/07/2023 28 (H) ] A/P: A/P: Soy San is a 42 y.o. 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 She has had an excellent clinical response to therapy and is on H/P monotherapy. She started xgeva 02/24/2023 and the plan [...] primary breast surgery. - fsh and lh orders placed for next -Continue denosumab q6w -order signed for today. Some confusion over q12 or 4 week regiment. Preferq4 week however will sync up with phesgo and make it q6 week. 3. RTC 3 weeks for MD/ visit , Phesgo, labs and discussion of imaging Total time spent: 40 minutes with > 50% spend in discussion of above No future appointments. documented in this encounter Plan of Treatment Upcoming Encounters Date Type Department Care Team (Late st Contact Info) Description 06/14/2024 8:00 AM EST Hospital Encounter Nuclear Medicine at [place] [phone] Consuelo Joyce [facility] [place] [address] 06/14/2024 8:45 AM EST Appointment XRay at [address] [place] [address] Kavitha Rai MD [facility] DR HEMATOLOGY [place] [address] 06/14/2024 9:45 AM EST Appointment Hematology [place] [address] 06/14/2024 11:00 AM EST Appointment [place] [address] Consuelo Joyce [facility] [place] [address] 06/14/2024 1:00 PM EST Office Visit Hematology [place] [address] Kavitha Rai MD [facility] DR HEMATOLOGY [place] [address] 06/14/2024 2:30 PM EST Appointment Hematology [place] [address] 07/05/2024 10:30 AM EDT Appointment Hematology [place] [address] 07/05/2024 11:30 AM EDT Office Visit Hematology and Oncology at [place] [phone] Consuelo Joyce APRN [facility] [place] [address] 07/05/2024 1:00 PM EDT Appointment Hematology and Oncology at [place] [address] 08/16/2024 9:20 AM EDT Office Visit Ophthalmology at [place] [address] Luz Jose, OD [facility] [place] [address] 01/14/2025 8:30 AM EDT Office Visit Psychiatry and Behavioral Health at [place] [address] Anna Oneill, PhD [facility] [place] [address] documented as of this encounter Results * Estradiol (07/21/2023 1:19 PM EDT) [facility] Signature Estradiol 17 pg/mL [facility] Comment: Reference ranges: Males: Adult: ? 11 to 43 pg/mL Females: Non- females: ?Follicular: ??12-233 pg/mL ?Ovulation: ?? 41-398 pg/mL ?Luteal: ?22-341 pg/mL ?Postmenopausal: ?? <5 - 138 pg/mL females: ?1st trimester: ??154-3243 pg/mL ?2nd trimester: ??1561-23682 pg/mL ?3rd trimester: ??8525- >85508 pg/mL Blood 07/21/2023 1:19 PM EDT 07/21/2023 1:56 PM EDT Narrative Resulting Agency Comment Spec In Lab Kavitha Rai MD CHEMISTRY ORDERABLES Performing Organization Address [facility] Co de Phone Number [facility] [place] [address] * Follicle Stimulating Hormone (07/21/2023 1:19 PM EDT) Follicle Stimulating Hormone 33.4 mlU/ML [facility] Comment: Reference Ranges Male: ? 1.5-12.4 mIU/mL Female ?? Follicular: ?3.5-12.5 mIU/mL ?? Ovulation: ? 4.7-21.5 mIU/mL ?? Luteal: ?1.7-7.7 mIU/mL ?? Postmenopausal: ?25.8-134.8 mIU/mL Blood 07/21/2023 1:19 PM EDT 07/21/2023 1:56 PM EDT Narrative Resulting Agency Comment Spec In Lab Kavitha Rai MD CHEMISTRY ORDERABLES Performing Organization Address [facility] Co de Phone Number [facility] [place] [address] documented in this encounter Visit Diagnoses Diagnosis Malignant neoplasm of overlapping sites of right breast in female, estrogen receptor negative documented in this encounter Care Teams Shirt Hemmer Relationship Specialty Start Date End Date Ryan Betancourt MD [address] [place] [phone] PCP - General Family Medicine 07/29/22 documented as of this encounter
--- OUTSIDE RECORDS SUMMARY | 2024-06-01 20:40 | XMS_ITS | Encounter Summary ---
[place] [address] Care Team Providers Care Financial Dealers Name Role Phone Ryan Betancourt MD Primary Care Provider [phone] Reason for Referral * Diagnostic Test (Routine) - Closed Specialty Diagnoses / Procedures Referred By Ciaran lopez Referred To Contact Radiology Diagnoses Malignant neoplasm of overlapping sites of right breast in female, estrogen receptor negative Procedures CT Chest Abdomen Pelvis w Contrast (Generic) Kavitha Rai MD [facility] DR HEM[place] [address] [facility] [place] [address] Referral ID Status Reason Start Date Expiration Date V isits Requested Visits Authorized [id number] Closed Specialty Service Requested 06/09/2023 12/07/2024 1 1 Reason for Visit * Diagnostic Test (Routine) - Closed Specialty Diagnoses / Procedures Referred By Ciaran lopez Referred To Contact Radiology Diagnoses Malignant neoplasm of overlapping sites of right breast in female, estrogen receptor negative Procedures CT Chest Abdomen Pelvis w Contrast (Generic) Kavitha Rai MD [facility] DR H[place] [address] [facility] [place] [address] Referral ID Status Reason Start Date Expiration Date V isits Requested Visits Authorized [id number] Closed Specialty Service Requested 06/09/2023 12/07/2024 1 1 Encounter Details Date Type Department Care Team (Latest Contact Info) Description 06/23/2023 11:24 AM EST - 06/23/2023 2:09 PM EST Hospital Encounter CT Scan at [facility] [place] [address] aKvitha Rai MD [facility] [address] [place] [address] Malignant neoplasm of overlapping sites of right [...] AM EST Hospital Encounter [place] [address] Consuelo Joyce APRN [facility] [place] [address] 06/14/2024 8:45 AM EST Appointment XRay at [address] [place] [address] Kavitha Rai MD [facility] DR HEMATOLOGY [place] [address] 06/14/2024 9:45 AM EST Appointment Hematology [place] [address] 06/14/2024 11:00 AM EST Appointment Nuclear Medicine at [address] Consuelo Joyce APRN [facility] [place] [address] 06/14/2024 1:00 PM EST Office Visit Hematology [place] [address] Kavitha Rai MD [facility] DR HEMATOLOGY [place] [address] 06/14/2024 2:30 PM EST Appointment Hematology and Oncology at [place] [phone] 07/05/2024 10:30 AM EDT Appointment Hematology [place] [address] 07/05/2024 11:30 AM EDT Office Visit Hematology and Oncology at [place] [phone] Consuelo Joyce [facility] [place] [address] 07/05/2024 1:00 PM EDT Appointment Hematology and Oncology at [place] [phone] 08/16/2024 9:20 AM EDT Office Visit Ophthalmology at [place] [phone] Luz Jose OD [facility] [place] [address] 01/14/2025 8:30 AM EDT Office Visit Psychiatry and [place] [address] Anna Oneill, PhD [facility] [place] [address] documented as of this encounter Procedures Procedure Name Priority Date/Time Associated Diagnosis Comments CT CHEST ABDOMEN PELVIS W CONTRAST (GENERIC) Routine 06/23/2023 2:10 PM EST Malignant neoplasm of overlapping sites of right breast in female, estrogen receptor negative documented in this encounter Results * CT Chest Abdomen Pelvis w Contrast (Generic) (06/23/2023 2:10 PM EST) Anatomical Region Laterality Modality Abdomen, Pelvis Computed Tomogra phy Impressions 06/27/2023 9:18 AM EDT 1. ??Continued positive response to treatment with no CT evidence of recurrent or new sites of metastatic disease. 2. ??Bone metastases continue to heal with no pathologic fractures. 3. ??Only tiny hypodense foci are present within the liver at sites of prior liver metastases. 4. ??Small bilateral pulmonary nodules are most likely benign, though of uncertain stability as no prior diagnostic CT imaging has been performed other than PET scan. Attention on follow-up CT imaging. Thank you for letting us participate in the care of this patient. ??If you are a health care provider and have any questions regarding this report, please contact the number below. ??For patients who have questions please contact the health career development counselor that requested your imaging first. ? Narrative 06/27/2023 9:18 AM EDT EXAMINATION: CT CHEST ABDOMEN PELVIS W CONTRAST (GENERIC) CLINICAL HISTORY: Breast cancer, invasive, stage IV, assess treatment response C50.811, Malignant neoplasm of overlapping sites of right female breast - Z17.1, Estrogen receptor negative status (ER-) TECHNIQUE: Helical CT of the chest, abdomen, and pelvis following the intravenous administration of contrast. 120 mL Omnipaque 350. Oral contrast was administered. COMPARISON: Multiple prior PET scans dating back to 07/28/2022 FINDINGS: Chest: Lungs and large airways: There are multiple small bilateral pulmonary nodules, the largest 4 to 5 mm in the right upper lobe, series 303 image 34. These have not been previously well evaluated with no diagnostic CT imaging of the PET scan on record. No FDG avid pulmonary nodules have been seen on PET scan. Pleura: No effusion. Heart/vasculature: Heart is stable in size. No pericardial effusion. Lymph nodes: No enlarged lymph nodes. Previous extensive adenopathy has not recurred. Mediastinum and bari: Rebound thymic tissue is noted in the anterior mediastinum. Left chest port is in stable position. There is a small to moderate hiatal hernia. CHEST WALL: There is mild residual skin thickening of the right breast. Axillary lymph nodes remain small in size. Biopsy markers in the right breast and right axilla noted. Abdomen/pelvis: Liver: There are no new liver lesions. There is a tiny remnant low-density lesion in the right liver, series 302 image 377, measuring 6 mm and the site of prior metastasis. Bile ducts: Nondilated. Gallbladder: Decompressed. Pancreas: Normal attenuation without ductal dilatation. Spleen: Normal. Adrenals: Normal. Kidneys: The kidneys enhance symmetrically. No hydronephrosis. No significant stones. Urinary Bladder: Normal. Vasculature: No abdominal aortic aneurysm. Lymph Nodes: No enlarged lymph nodes. Bowel: Nondilated, no wall thickening. ?? Peritoneum and retroperitoneum: No free fluid or loculated fluid collection. No pneumoperitoneum. No mesenteric inflammation. Abdominal wall: There is a small fat-containing umbilical hernia. Reproductive organs: Uterus is normal. There is a dominant follicular cyst of the right ovary. Osseous structures: Osseous metastatic lesions are becoming less conspicuous, in keeping with healing. No new aggressive lytic bone lesions. No pathologic fractures. Procedure Note Jyothi Askew MD - 06/27/2023 EXAMINATION: CT CHEST ABDOMEN PELVIS W CONTRAST (GENERIC) CLINICAL HISTORY: Breast cancer, invasive, stage IV, assess treatmentresponse C50.811, Malignant neoplasm of overlapping sites of right female breast -Z17.1, Estrogen receptor negative status (ER-) TECHNIQUE: Helical CT of the chest, abdomen, and pelvis following the intravenous administration of contrast. 120 mL Omnipaque 350. Oralcontrast was administered. COMPARISON: Multiple prior PET scans dating back to 07/28/2022 FINDINGS: Chest: Lungs and large airways: There are multiple small bilateral pulmonarynodules, the largest 4 to 5 mm in the right upper lobe, series 303 image 34. Thesehave not been previously well evaluated with no diagnostic CT imaging of thePET scan on record. No FDG avid pulmonary nodules have been seen on PET scan. Pleura: No effusion. Heart/vasculature: Heart is stable in size. No pericardial effusion. Lymph nodes: No enlarged lymph nodes. Previous extensive adenopathy hasnot recurred. Mediastinum and bari: Rebound thymic tissue is noted in the anterior mediastinum. Left chest port is in stable position. There is a small tomoderate hiatal hernia. CHEST WALL: There is mild residual skin thickening of the right breast.Axillary lymph nodes remain small in size. Biopsy markers in the right breast andright axilla noted. Abdomen/pelvis: Liver: There are no new liver lesions. There is a tiny remnantlow-density lesion in the right liver, series 302 image 377, measuring 6 mm and thesite of prior metastasis. Bile ducts: Nondilated. Gallbladder: Decompressed. Pancreas: Normal attenuation without ductal dilatation. Spleen: Normal. Adrenals: Normal. Kidneys: The kidneys enhance symmetrically. No hydronephrosis. Nosignificant stones. Urinary Bladder: Normal. Vasculature: No abdominal aortic aneurysm. Lymph Nodes: No enlarged lymph nodes. Bowel: Nondilated, no wall thickening. Peritoneum and retroperitoneum: No free fluid or loculated fluidcollection. No pneumoperitoneum. No mesenteric inflammation. Abdominal wall: There is a small fat-containing umbilical hernia. Reproductive organs: Uterus is normal. There is a dominant follicular cystof the right ovary. Osseous structures: Osseous metastatic lesions are becoming lessconspicuous, in keeping with healing. No new aggressive lytic bone lesions. Nopathologic fractures. IMPRESSION 1. Continued positive response to treatment with no CT evidence ofrecurrent or new sites of metastatic disease. 2. Bone metastases continue to heal with no pathologic fractures. 3. Only tiny hypodense foci are present within the liver at sites ofprior liver metastases. 4. Small bilateral pulmonary nodules are most likely benign, though of uncertain stability as no prior diagnostic CT imaging has been performedother than PET scan. Attention on follow-up CT imaging. Thank you for letting us participate in the care of this patient. If youare a health care provider and have any questions regarding this report,please contact the number below. For patients who have questions please contactthe health career development counselor that requested your imaging first. Kavitha Rai [...] 1 dose, Starting on Yvette 06/23/23 at 1411, Until Yvette 06/23/23 at 1411, Per Protocol, Warning Vesicant/Irritant Medication , Radiology Contrast, Routine Given 06/23/2023 2:11 PM EST 120 mLs iohexoL (Omnipaque) (350 mg/mL) solution 0-50 mL 0-50 mL, Oral, ONCE PRN, 1 dose, Starting on Yvette 324 at 1411, Until Yvette 3 at 1411, Per Protocol, Warning Vesicant/Irritant Medication , Radiology Contrast, Routine Given 06/23/2023 2:11 PM EST 50 mLs documented in this encounter Care Teams Financial Dealers Relationship Specialty Start Date End Date Ryan Betancourt MD [address] [place] [phone] PCP - General Family Medicine 07/29/22 documented as of this encounter
--- OUTSIDE RECORDS SUMMARY | 2024-06-01 20:40 | XMS_ITS | Encounter Summary ---
[place] [address] Care Team Providers Care Upholstery Cleaner Name Role Phone Ryan Betancourt MD Primary Care Provider [phone] Reason for Visit * Treatment/Therapy Plan Authorization (Routine) - Closed Specialty Diagnoses / Procedures Referred By Ciaran lopez Referred To Contact Diagnoses Malignant neoplasm of overlapping sites of right breast in female, estrogen receptor negative Procedures -PHESGO (PERTUZUMAB TRASTUZUMAB & HYALURONIDASE-ZZXF) Kavitha Rai MD [facility] DR HEMATOLOGY [place] [address] [facility] Hem Onc [address] [place] [address] Referral ID Status Reason Start Date Expiration Date Visits Re quested Visits Authorized [id number] Closed 04/07/2023 04/06/2024 1 106 Encounter Details Date Type Department Care Team (Latest Contact Info) Description 06/09/2023 12:12 PM EST - 06/09/2023 11:59 PM EST Hospital Encounter Hematology [place] [address] Malignant neoplasm of overlapping [...] Progress Notes * Serenity Cespedes RN - 06/09/2023 12:32 PM EST Patient Name: Soy San Patient Age: 42 y.o. Birthdate: 1980 Admit date: 06/09/2023 Attending Physician: No att. providers found Access visit. See MAR and/or flowsheet. documented in this encounter Plan of Treatment Upcoming Encounters Date Type Department Care Team (Late st Contact Info) Description 06/14/2024 8:00 AM EST Hospital Encounter [place] [address] Consuelo Joyce APRN [facility] [place] [address] 06/14/2024 8:45 AM EST Appointment XRay at [address] [place] [phone] Kavitha Rai MD [facility] HEMATOLOGY [place] [address] 06/14/2024 9:45 AM EST Appointment Hematology [place] [phone] 06/14/2024 11:00 AM EST Appointment Nuclear Medicine at [place] [address] Consuelo Joyce APRN [facility] [place] [address] 06/14/2024 1:00 PM EST Office Visit Hematology and Oncology at [place] [address] Kavitha Rai MD [facility] DR HEMATOLOGY [place] [address] 06/14/2024 2:30 PM EST Appointment Hematology and Oncology at [place] [address] 07/05/2024 10:30 AM EDT Appointment Hematology and Oncology at [place] [address] 07/05/2024 11:30 AM EDT Office Visit Hematology and Oncology at [place] [address] Consuelo Joyce MANUFACTURING ENGINEER [facility] [place] [address] 07/05/2024 1:00 PM EDT Appointment Hematology and Oncology at [place] [address] 08/16/2024 9:20 AM EDT Office Visit Ophthalmology at [place] [address] Luz Jose, [facility]SON [facility] [place] [address] 01/14/2025 8:30 AM EDT Office Visit Psychiatry and Behavioral Health at [place] [address] Anna Oneill, PhD [facility] [place] [address] documented as of this encounter Procedures Procedure Name Priority Date/Time Associated Diagnosis Comments HEMOGRAM STAT 06/09/2023 12:20 PM EST Malignant neoplasm of overlapping sites of right breast in female, estrogen receptor negative DIFFERENTIAL, AUTOMATED STAT 06/09/2023 12:20 PM EST Malignant neoplasm of overlapping sites of right breast in female, estrogen receptor negative CANCER ANTIGEN 15-3 STAT 06/09/2023 1 2:20 PM EST Malignant neoplasm of overlapping sites of right breast in female, estrogen receptor negative CBC (WITH DIFF) STAT 06/09/2023 12:20 PM EST Malignant neoplasm of overlapping sites of right breast in female, estrogen receptor negative COMPREHENSIVE METABOLIC PANEL STAT 06/09/2023 12:20 PM EST Malignant neoplasm of overlapping sites of right breast in female, estrogen receptor negative documented in this encounter Results * (ABNORMAL) Differential, Automated (06/09/2023 12:20 PM EST) Neutrophil % 62.1 % [facility] Neutrophil Absolute 4.38 1.70 - 6.10 x10(3)/mc L [facility] Lymph % 30.7 % [facility] Lymphocytes Abs 2.2 0.9 - 3.2 x10(3)/mc L [facility] Monocyte % 3.3 % [facility] Monocyte Abs 0.2(L) 0.3 - 0.9 x10(3)/mc L [facility] Eos % 3.0 % [facility] Eosinophils Abs 0.2 0.0 - 0.4 x10(3)/mc L [facility] Basophil % 0.1 % [facility] Baso Absolute 0.0 0.0 - 0.1 x10(3)/mc L [facility] Immature Gran % 0.80 % [facility] Comment: Immature granulocytes(IG's)percentage and absolute count will include metamyelocytes, myelocytes, and promyelocytes. Blood smears from CBCs yielding IG's will be scanned manually for concordance. If this scan disagrees with the automated IG or if promyelocytes are noted, a manual differential will be performed. Immature Gran Absolute 0.06(H) 0.00 - 0.04 x10(3)/mc L [facility] Blood 06/09/2023 12:2 0 PM EST 06/09/2023 12:41 PM EST Narrative Resulting Agency Comment Spec In Lab Kavitha Rai MD HEMATOLOGY ORDERABLE S [facility] [place] [address] * (ABNORMAL) Hemogram (06/09/2023 12:20 PM EST) White Blood Cell 7.1 4.0 - 9.5 x10(3)/[facility] Red Blood Cell 4.83 4.00 - 5.21 x10(6)/[facility] Hemoglobin 13.4 11.7 - 15.5 g/dL [facility] Hematocrit 39.1 35.7 - 45.8 % [facility] Mean Cell Volume 81.0(L) 82.6 - 94.4 fL [facility] Mean Cell Hemoglobin 27.7 27.1 - 32.0 pg [facility] Mean Cell Hemoglobin Concentration 34.3 31.7 - 35.0 g/dL [facility] Platelet 256 145 - 357 x10(3)/ L [facility] RDW Standard Deviation 40.6 37.0 - 46.0 fL [facility] RDW coefficient of variation 13.7 11.5 - 14.1 % [facility] Mean Platelet Volume 10.1 7.6 - 12.9 fL [facility] NRBC% auto 0.0 % [facility] NRBC Absolute 0.000 0.000 - 0.000 x10(3)/[facility] Blood 06/09/2023 12:2 0 PM EST 06/09/2023 12:41 PM EST Narrative Resulting Agency Comment Spec In Lab Kavitha Rai MD HEMATOLOGY ORDERABLE S [facility] [place] [address] * (ABNORMAL) Comprehensive metabolic panel (non-fasting) (06/09/2023 12:20 PM EST) Glucose 142 65 - 199 mg/dL [facility] Comment:Diabetes: >=200 mg/d L plus symptoms Blood Urea Nitrogen 17 8 - 18 mg/dL [facility] Creatinine 0.68(L) 0.70 - 1.20 mg/dL [facility] Sodium 142 135 - 145 mmol/L [facility] Potassium 3.2(L) 3.5 - 5.0 mmol/L [facility] Comment: Please note: ??Patients with WBC >100,000 may have falsely elevated Potassium levels. ??For accurate Potassium quantification in these patients send serum separator tube (gold top) for subsequent determinations. ??Contact the Clinical Chemistry Laboratory if there are any questions. Chloride 106 98 - 107 mmol/L [facility] Carbon Dioxide 26 22 - 31 mmol/L [facility] Anion Gap 10 5 - 15 mmol/L [facility] Calcium 8.9 8.5 - 10.5 mg/dL [facility] Protein, Total 6.9 6.1 - 8.0 g/dL [facility] Albumin 4.1 3.2 - 5.2 g/dL [facility] Aspartate Aminotransferase 16 0 - 30 unit/L [facility] Alanine Aminotransferase 18 0 - 30 unit/L [facility] Alkaline Phosphatase 71 35 - 105 unit/L [facility] Bilirubin, Total 0.3 0.2 - 1.3 mg/dL [facility] Est Glomerular Filtration Rate 110 >=60 mL/min/1. 73 m?? [facility] Comment: This patient's estimated [...] and symptoms in addition to eGFR. Blood 06/09/2023 12:2 0 PM EST 06/09/2023 12:41 PM EST Narrative Resulting Agency Comment Spec In Lab Kavitha Rai MD CHEMISTRY ORDERABLES Performing Organization Address City/[facility]/ZIP Co de Phone Number [facility] [place] [address] * (ABNORMAL) Cancer antigen 15-3 (06/09/2023 12:20 PM EST) CA 15-3 28(H) <=25 unit/mL [facility] Comment: This result was generated using a Deepak Dequan immunoassay. ??Results obtained from other methods or manufacturers cannot be used interchangeably with this method. Blood 06/09/2023 12:2 0 PM EST 06/09/2023 12:41 PM EST Narrative Resulting Agency Comment Spec In Lab Kavitha Rai MD CHEMISTRY ORDERABLES Performing Organization Address [facility] Co de Phone Number [facility] [place] [address] documented in this encounter Visit Diagnoses Diagnosis [...] EVERY 1 MIN PRN, Starting on Yvette 06/09/23 at 1217, Until Tue06/10/23 at 0440, Line Care, Flush pertains to all indwelling lines. Flush per protocol found in the job aid using the link provided on this medication record. Refer to Intravenous (IV) Job Aid: Adult Flushing & Catheter Care (9865) job aid for additional information regarding guidelines and administration., Routine Given 06/09/2023 12:31 PM EST 20 mLs documented in this encounter Care Teams Upholstery Cleaner Relationship Specialty Start Date End Date Ryan Betancourt MD [address] [place] [phone] PCP - General Family Medicine 07/29/22 documented as of this encounter
--- OUTSIDE RECORDS SUMMARY | 2024-06-01 20:40 | XMS_ITS | Encounter Summary ---
Author Organization [facility] [place] [address] Care Team Providers Care Licensed Chemical Spray Technician Name Role Phone Ryan Betancourt MD Primary Care Provider [phone] Reason for Visit * Diagnostic Test (Routine) - Closed Specialty Diagnoses / Procedures Referred By Ciaran lopez Referred To Contact Radiology Diagnoses Malignant neoplasm of overlapping sites of right breast in female, estrogen receptor negative Procedures NM Bone Scan Whole Body Kavitha Rai MD [facility] HEMATOLOGY [place] [address] [place] [address] Referral ID Status Reason Start Date Expiration Date V isits Requested Visits Authorized [id number] Closed Specialty Service Requested 06/09/2023 12/07/2024 1 1 Encounter Details Date Type Department Care Team (Latest Contact Info) Description 06/23/2023 2:10 PM EST - 06/23/2023 4:45 PM [facility] Hospital Encounter [place] [address] Kavitha Rai MD [facility] HEMATOLOGY AND [place] [address] Discharge Disposition: Home Social History [...] AM EST Hospital Encounter [place] [address] Consuelo Joyce [facility] MEDICAL [place] [address] 06/14/2024 8:45 AM EST Appointment XRay at [address] [place] [address] Kavitha Rai MD [facility] HEMATOLOGY AND [place] [address] 06/14/2024 9:45 AM EST Appointment Hematology [place] [address] 06/14/2024 11:00 AM EST Appointment [place] [phone] Consuelo Joyce [facility] [address] [place] [address] 06/14/2024 1:00 PM EST Office Visit [place]ology [place] [address] Kavitha Rai MD [facility] [place] [address] 06/14/2024 2:30 PM EST Appointment Hematology [place] [address] 07/05/2024 10:30 AM EDT Appointment Hematology and Oncology at [place] [phone] 07/05/2024 11:30 AM EDT Office Visit Hematology and Oncology at [place] [phone] Consuelo Joyce APRN [facility] [place] [address] 07/05/2024 1:00 PM EDT Appointment Hematology and Oncology at [place] [phone] 08/16/2024 9:20 AM EDT Office Visit Ophthalmology at [place] [phone] Luz Jose, [facility]SON [facility] [place] [address] 01/14/2025 8:30 AM EDT Office Visit Psychiatry and Behavioral Health at [place] [phone] Anna Oneill, PhD [facility] [place] [address] documented as of this encounter Procedures Procedure Name Priority Date/Time Associated Diagnosis Comments NM BONE SCAN WHOLE BODY Routine 06/23/2023 2:58 PM EST Malignant neoplasm of overlapping sites of right breast in female, estrogen receptor negative documented in this encounter Results * NM Bone Scan Whole Body (06/23/2023 2:58 PM EST) Anatomical Region Laterality Modality Nuclear Medicine Impressions 06/24/2023 4:44 PM EST 1. ??Diffuse MDP avidity throughout the sternum and manubrium correlating with mild diffuse sclerosis on same-day CT and which was the location of diffusely FDG avid osseous metastasis abnormal PET/CT of 07/28/2022. This area was not FDG avid on PET/CT of 04/07/2023, and favored to represent treated metastasis with the diffuse MDP avidity representing post treatment remodeling. 2. ??No other sites of suspected metastasis. I have personally reviewed the image(s) and the resident's interpretation and agree with the findings, David Jack MD at 06/24/2023 4:44 PM Thank you for letting us participate in the care of this patient. ??If you are a health care provider and have any questions regarding this report, please contact the number below. ??For patients who have questions please contact the health career guidance technician that requested your imaging first. ? Narrative 06/24/2023 4:44 PM EST EXAMINATION: NM BONE SCAN WHOLE BODY CLINICAL HISTORY: Breast cancer, assess treatment response C50.811, Malignant neoplasm of overlapping sites of right female breast - Z17.1, Estrogen receptor negative status (ER-) TECHNIQUE: Three hours following the intravenous administration of 26 mCi of technetium-99m MDP, planar images of the skeleton in anterior and posterior projection were obtained. COMPARISON: CT chest abdomen pelvis 06/23/2023. FINDINGS: Diffuse MDP avidity throughout the sternum and manubrium, correlating with mild diffuse sclerosis on same day CT and which was the location of diffusely FDG avid osseous metastasis seen on remote PET/CT of 07/28/2022. No other MDP avid osseous lesions. Normal activity in the kidneys and urinary bladder. Procedure Note David Jack MD - 06/24/2023 EXAMINATION: NM BONE SCAN WHOLE BODY CLINICAL HISTORY: Breast cancer, assess treatment response C50.811, Malignant neoplasm of overlapping sites of right female breast -Z17.1, Estrogen receptor negative status (ER-) TECHNIQUE: Three hours following the intravenous administration of 26 mCiof technetium-99m MDP, planar images of the skeleton in anterior andposterior projection were obtained. COMPARISON: CT chest abdomen pelvis 06/23/2023. FINDINGS: Diffuse MDP avidity throughout the sternum and manubrium, correlating withmild diffuse sclerosis on same day CT and which was the location of diffuselyFDG avid osseous metastasis seen on remote PET/CT of 07/28/2022. No other MDP avid osseous lesions. Normal activity in the kidneys and urinary bladder. IMPRESSION 1. Diffuse MDP avidity throughout the sternum and manubrium correlatingwith mild diffuse sclerosis on same-day CT and which was the location ofdiffusely FDG avid osseous metastasis abnormal PET/CT of 07/28/2022. This area wasnot FDG avid on PET/CT of 04/07/2023, and favored to represent treated metastasiswith the diffuse MDP avidity representing post treatment remodeling. 2. No other sites of suspected metastasis. I have personally reviewed the image(s) and the resident's interpretationand agree with the findings, David Jack MD at 06/24/2023 4:44 PM Thank you for letting us participate in the care of this patient. If youare a health care provider and have any questions regarding this report,please contact the number below. For patients who have questions please contactthe health career guidance technician that requested your imaging first. Kavitha Rai MD IMG NM ORDERABLES documented in this encounter Visit Diagnoses Not on filedocumented in this encounter Care Teams Licensed Chemical Spray Technician Relationship Specialty Start Date End Date Ryan Betancourt MD [address] [place] [phone] PCP - General Family Medicine 07/29/22 documented as of this encounter
--- OUTSIDE RECORDS SUMMARY | 2024-06-01 20:40 | XMS_ITS | Encounter Summary ---
Author Organization [facility] Address [facility] [place] [address] Care Team Providers Care Wreath Maker Name Role Phone Ryan Betancourt MD Primary Care Provider [phone] Encounter Details Date Type Department Care Team (Latest Contact Info) Description 06/16/2023 10:55 AM EST - 06/16/2023 11:59 PM EST Hospital En[place] [phone] Kavitha Rai MD [facility] [place] [address] Abnormal finding on breast imaging Discharge Disposition: Home Social History Tobacco Use [...] AM EST Hospital Encounter Nuclear Medicine at [place] [phone] Consuelo Joyce [facility] [place] [address] 06/14/2024 8:45 AM EST Appointment XRay at [address] [place] [address] Kavitha Rai MD [facility] [place] [address] 06/14/2024 9:45 AM EST Appointment Hematology [place] [address] 06/14/2024 11:00 AM EST Appointment [place] [address] Consuelo Joyce [facility] [place] [address] 06/14/2024 1:00 PM EST Office Visit Hematology [place] [address] Kavitha Rai MD [facility] [place] [address] 06/14/2024 2:30 PM EST Appointment Hematology [place] [address] 07/05/2024 10:30 AM EDT Appointment Hematology [place] [address] 07/05/2024 11:30 AM EDT Office Visit Hematology [place] [address] Consuelo Joyce APRN [facility] [place] [address] 07/05/2024 1:00 PM EDT Appointment Hematology and Oncology at [place] [phone] 08/16/2024 9:20 AM EDT Office Visit Ophthalmology at [place] [phone] Luz Jose, OD [facility] [place] [address] 01/14/2025 8:30 AM EDT Office Visit Psychiatry and Behavioral Health at [place] [phone] Anna Oneill, PhD [facility] [place] [address] documented as of this encounter Procedures Procedure Name Priority Date/Time Associated Diagnosis Comments MAMMO BREAST US LIMITED RIGHT Routine 06/16/2023 2:21 PM EST Abnormal finding on breast imaging documented in this encounter Results * US Breast Limited Right (06/16/2023 2:21 PM EST) Anatomical Region Laterality Modality Breast Right Mammography Impressions 06/16/2023 3:55 PM EST 1. ??No suspicious mass. 2. ??Homogeneous thickening of the areolar, which per the patient she has had for a long period of time. 3. ??Further imaging follow-up should be as per oncology protocol FINAL ASSESSMENT: BI-RADS Category 2: Benign Findings I have personally reviewed the image(s) and the resident's interpretation and agree with the findings, Evelyn Ngo MD at 06/16/2023 3:55 PM Thank you for letting us participate in the care of this patient. ??If you are a health care provider and have any questions regarding this report, please contact the number below. ??For patients who have questions please contact the health customer care professional that requested your imaging first. ? Narrative 06/16/2023 3:55 PM EST DIAGNOSTIC ULTRASOUND OF THE RIGHT BREAST CLINICAL HISTORY: abnormal finding per the patient, she has long-term thickening of the areola and breast aching in the upper outer quadrant COMPARISONS: Breast MRI 01/11/2023; PET CT 04/07/2023 AREA SCANNED: Multiple regions were scanned, including upper outer, upper inner, and retroareolar regions. The prior tumor bed was also sonographically evaluated. FINDINGS: No suspicious mass, asymmetry, or calcifications were noted, specifically in the previously noted site of malignancy. There is homogeneous thickening of the dermis in the areolar region, measuring 5 mm. Kavitha Rai MD IMG MAMMO ORDERABLES documented in this encounter Visit Diagnoses Diagnosis Abnormal finding on breast imaging Other (abnormal) findings on radiological examination of breast documented in this encounter Care Teams Wreath Maker Relationship Specialty Start Date End Date Ryan Betancourt MD [address] [place] [phone] PCP - General Family Medicine 07/29/22 documented as of this encounter
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
--- OUTSIDE RECORDS SUMMARY | 2024-06-01 20:40 | XMS_ITS | Encounter Summary ---
[facility] [place] [address] Care Team Providers Care Cardiac Care Unit Nurse Name Role Phone Ryan Betancourt MD Primary Care Provider [phone] Reason for Visit * Reason Onset Date Comments Prior Authorization 05/25/2023 Encounter Details Date Type Department Care Team (Late st Contact Info) Description 05/25/2023 Telephone Hematology [place] [phone] Dinorah Moseley Prior Authorization Social History Tobacco Use Types Packs/Day Years [...] encounter Miscellaneous Notes * Telephone Encounter - Dinorah Moseley - 05/25/2023 9:58 AM EST Medication Prior Authorization Medication name/dose/directions: Omeprazole Rationale for request: R11 Health plan: [facility] [place] Authorizing product support sales representative name: Emilio Faxed to health plan on: 05/25/23 via [facility] [place]: [id number] - [place] - Rx #: [id number] Health plan decision: [place] cancelled by [employer] Quantity approved: Authorization number: Start date: End date: Patient notified? Pharmacy notified? documented in this encounter Plan of Treatment Upcoming Encounters Date Type Department Care Team (Late st Contact Info) Description 06/14/2024 8:00 AM EST Hospital Encounter [place] [phone] Consuelo Joyce APRN [facility] [place] [address] 06/14/2024 8:45 AM EST Appointment XRay at [address] [place] [phone] Kavitha Rai MD [facility] [place] [address] 06/14/2024 9:45 AM EST Appointment Hematology and Oncology at [place] [phone] 06/14/2024 11:00 AM EST Appointment Nuclear Medicine at [address] Consuelo Joyce APRN [facility] [place] [address] 06/14/2024 1:00 PM EST Office Visit Hematology and Oncology at [place] [phone] Kavitha Rai MD [facility] DR HEMATOLOGY [place] [address] 06/14/2024 2:30 PM EST Appointment Hematology and Oncology at [address] 07/05/2024 10:30 AM EDT Appointment Hematology and Oncology at [place] [phone] 07/05/2024 11:30 AM EDT Office Visit Hematology and Oncology at [place] [phone] Consuelo Joyce [facility] [place] [address] 07/05/2024 1:00 PM EDT Appointment Hematology [place] [address] 08/16/2024 9:20 AM EDT Office Visit Ophthalmology at [place] [phone] Luz Jose OD [facility] [place] [address] 01/14/2025 8:30 AM EDT Office Visit Psychiatry and Behavioral [place] [address] Anna Oneill, PhD [facility] [place] [address] documented as of this encounter Visit Diagnoses Not on filedocumented in this encounter Care Teams Cardiac Care Unit Nurse Relationship Specialty Start Date End Date Ryan Betancourt MD [address] [place] [phone] PCP - General Family Medicine 07/29/22 documented as of this encounter
--- OUTSIDE RECORDS SUMMARY | 2024-06-01 20:40 | XMS_ITS | Encounter Summary ---
Author Organization Formerly [facility] [place] [address] Care Team Providers Care Powerplant Operator Name Role Phone Ryan Betancourt MD Primary Care Provider [phone] Reason for Visit * Treatment/Therapy Plan Authorization (Routine) - Closed Specialty Diagnoses / Procedures Referred By Ciaran lopez Referred To Contact Diagnoses Malignant neoplasm of overlapping sites of right breast in female, estrogen receptor negative Procedures -PHESGO (PERTUZUMAB TRASTUZUMAB & HYALURONIDASE-ZZXF) Kavitha Rai MD [facility] [place] [address] [facility] [address] [place] [address] Referral ID Status Reason Start Date Expiration Date Visits Re quested Visits Authorized [id number] Closed 04/07/2023 04/06/2024 1 106 Encounter Details Date Type Department Care Team (Latest Contact Info) Description 07/21/2023 1:07 PM EDT - 07/21/2023 11:59 PM EDT Hospital Encounter [place] [address] Malignant neoplasm of overlapping sites [...] Progress Notes * Serenity Cespedes RN - 07/21/2023 1:21 PM EDT Patient Name: Soy San Patient Age: 42 y.o. Birthdate: 1980 Admit date: 07/21/2023 Attending Physician: No att. providers found Access visit. See MAR and/or flowsheet. documented in this encounter Plan of Treatment Upcoming Encounters Date Type Department Care Team (Late st Contact Info) Description 06/14/2024 8:00 AM EST Hospital En[place] [address] Consuelo Joyce APRN [facility] [place] [address] 06/14/2024 8:45 AM EST Appointment XRay at [address] [place] [phone] Kavitha Rai MD [facility] [place] [address] 06/14/2024 9:45 AM EST Appointment [place]ematology [place] [phone] 06/14/2024 11:00 AM EST Appointment Nuclear Medicine at [place] [address] Consuelo Joyce APRN [facility] [place] [address] 06/14/2024 1:00 PM EST Office Visit Hematology and Oncology at [place] [address] Kavitha Rai MD [facility] [address] [place] [address] 06/14/2024 2:30 PM EST Appointment Hematology and Oncology at [place] [address] 07/05/2024 10:30 AM EDT Appointment Hematology and Oncology at [place] [address] 07/05/2024 11:30 AM EDT Office Visit Hematology and Oncology at [place] [address] Consuelo Joyce APRN [facility] [place] [address] 07/05/2024 1:00 PM EDT Appointment Hematology and Oncology at [place] [address] 08/16/2024 9:20 AM EDT Office Visit Ophthalmology at [place] [address] Luz Jose, [facility] [place] [address] 01/14/2025 8:30 AM EDT Office Visit Psychiatry and Behavioral Health at [place] [address] Anna Oneill, PhD [facility] [place] [address] documented as of this encounter Procedures Procedure Name Priority Date/Time Associated Diagnosis Comments HEMOGRAM STAT 07/21/2023 1:19 PM EDT Malignant neoplasm of overlapping sites of right breast in female, estrogen receptor negative DIFFERENTIAL, AUTOMATED STAT 07/21/2023 1:19 PM EDT Malignant neoplasm of overlapping sites of right breast in female, estrogen receptor negative CANCER ANTIGEN 15-3 STAT 07/21/2023 1 :19 PM EDT Malignant neoplasm of overlapping sites of right breast in female, estrogen receptor negative ESTRADIOL STAT 07/21/2023 1:19 PM EDT Malignant neoplasm of overlapping sites of right breast in female, estrogen receptor negative CBC (WITH DIFF) STAT 07/21/2023 1:19 PM EDT Malignant neoplasm of overlapping sites of right breast in female, estrogen receptor negative FOLLICLE STIMULATING HORMONE STAT 07/21/2023 1:19 PM EDT Malignant neoplasm of overlapping sites of right breast in female, estrogen receptor negative CEA Routine 07/21/2023 1:19 PM EDT Malignant neoplasm of overlapping sites of right breast in female, estrogen receptor negative COMPREHENSIVE METABOLIC PANEL STAT 07/21/2023 1:19 PM EDT Malignant neoplasm of overlapping sites of right breast in female, estrogen receptor negative documented in this encounter Results * Differential, Automated (07/21/2023 1:19 PM EDT) Neutrophil % 67.1 % [facility] Neutrophil Absolute 5.39 1.70 - 6.10 x10(3)/[facility] Lymph % 27.0 % [facility] Lymphocytes Abs 2.2 0.9 - 3.2 x10(3)/[facility] Monocyte % 4.0 % [facility] Monocyte Abs 0.3 0.3 - 0.9 x10(3)/[facility] Eos % 1.5 % [facility] Eosinophils Abs 0.1 0.0 - 0.4 x10(3)/[facility] Basophil % 0.2 % [facility] Baso Absolute 0.0 0.0 - 0.1 x10(3)/[facility] Immature Gran % 0.20 % [facility] Comment: Immature granulocytes(IG's)percentage and absolute count will include metamyelocytes, myelocytes, and promyelocytes. Blood smears from CBCs yielding IG's will be scanned manually for concordance. If this scan disagrees with the automated IG or if promyelocytes are noted, a manual differential will be performed. Immature Gran Absolute 0.02 0.00 - 0.04 x10(3)/[facility] Blood 07/21/2023 1:19 PM EDT 07/21/2023 1:56 PM EDT Narrative Resulting Agency Comment Spec In Lab Consuelo Joyce APRN HEMATOLOGY ORDERABL ES [facility] [place] [address] * (ABNORMAL) Hemogram (07/21/2023 1:19 PM EDT) White Blood Cell 8.0 4.0 - 9.5 x10(3)/mc L [facility] Red Blood Cell 5.05 4.00 - 5.21 x10(6)/mc L [facility] Hemoglobin 13.9 11.7 - 15.5 g/dL [facility] Hematocrit 41.1 35.7 - 45.8 % [facility] Mean Cell Volume 81.4(L) 82.6 - 94.4 fL [facility] Mean Cell Hemoglobin 27.5 27.1 - 32.0 pg [facility] Mean Cell Hemoglobin Concentration 33.8 31.7 - 35.0 g/dL [facility] Platelet 330 145 - 357 x10(3)/mc L [facility] RDW Standard Deviation 39.5 37.0 - 46.0 fL [facility] RDW coefficient of variation 13.3 11.5 - 14.1 % [facility] Mean Platelet Volume 10.0 7.6 - 12.9 [facility] NRBC% auto 0.0 % [facility] NRBC Absolute 0.000 0.000 - 0.000 x10(3)/mc L [facility] Blood 07/21/2023 1:19 PM EDT 07/21/2023 1:56 PM EDT Narrative Resulting Agency Comment Spec In Lab Consuelo Joyce APRN HEMATOLOGY ORDERABL ES Performing Organization Address [facility] Phone Number [facility] [place] [address] * Follicle Stimulating Hormone (07/21/2023 1:19 PM EDT) Follicle Stimulating Hormone 33.4 mlU/ML [facility] Comment: Reference Ranges Male: ? 1.5-12.4 mIU/mL Female ?? Follicular: ?3.5-12.5 mIU/mL ?? Ovulation: ? 4.7-21.5 mIU/mL ?? Luteal: ?1.7-7.7 mIU/mL ?? Postmenopausal: ?25.8-134.8 mIU/mL Blood 07/21/2023 1:19 PM EDT 07/21/2023 1:56 PM EDT Narrative Resulting Agency Comment Spec In Lab Kavitha Rai MD CHEMISTRY ORDERABLES Performing Organization Address City/[facility] Co de Phone Number [facility] [place] [address] * Estradiol (07/21/2023 1:19 PM EDT) Estradiol 17 pg/mL [facility] Comment: Reference ranges: Males: Adult: ? 11 to 43 pg/mL Females: Non- females: ?Follicular: ??12-233 pg/mL ?Ovulation: ?? 41-398 pg/mL ?Luteal: ?22-341 pg/mL ?Postmenopausal: ?? <5 - 138 pg/mL females: ?1st trimester: ??154-3243 pg/mL ?2nd trimester: ??1561-53793 pg/mL ?3rd trimester: ??8525- >43520 pg/mL Blood 07/21/2023 1:19 PM EDT 07/21/2023 1:56 PM EDT Narrative Resulting Agency Comment Spec In Lab Kavitha Rai MD CHEMISTRY ORDERABLES Performing Organization Address [facility] Co de Phone Number [facility] [place] [address] * (ABNORMAL) Cancer antigen 15-3 (07/21/2023 1:19 PM EDT) CA 15-3 32(H) <=25 unit/mL [facility] Comment: This result was generated using a Deepak Dequan immunoassay. ??Results obtained from other methods or manufacturers cannot be used interchangeably with this method. Blood 07/21/2023 1:19 PM EDT 07/21/2023 1:56 PM EDT Narrative Resulting Agency Comment Spec In Lab Consuelo L Sacks PLANE TABLEMAN CHEMISTRY ORDERABLE S [facility] [place] [address] * (ABNORMAL) Comprehensive metabolic panel (non-fasting) (07/21/2023 1:19 PM EDT) Glucose 101 65 - 199 mg/dL [facility] Comment:Diabetes: >=200 mg/d L plus symptoms Blood Urea Nitrogen 15 8 - 18 mg/dL [facility] Creatinine 0.67(L) 0.70 - 1.20 mg/dL [facility] Sodium 141 135 - 145 mmol/L [facility] Potassium 3.7 3.5 - 5.0 mmol/L [facility] Comment: Please note: ??Patients with WBC >100,000 may have falsely elevated Potassium levels. ??For accurate Potassium quantification in these patients send serum separator tube (gold top) for subsequent determinations. ??Contact the Clinical Chemistry Laboratory if there are any questions. Chloride 106 98 - 107 mmol/L [facility] Carbon Dioxide 26 22 - 31 mmol/L [facility] Anion Gap 9 5 - 15 mmol/L [facility] Calcium 8.8 8.5 - 10.5 mg/dL [facility] Protein, Total 6.9 6.1 - 8.0 g/dL [facility] Albumin 4.3 3.2 - 5.2 g/dL [facility] Aspartate Aminotransferase 13 0 - 30 unit/L [facility] Alanine Aminotransferase 21 0 - 30 unit/L [facility] Alkaline Phosphatase 66 35 - 105 unit/L [facility] Bilirubin, Total 0.4 0.2 - 1.3 mg/dL [facility] Est Glomerular Filtration Rate 110 >=60 mL/min/1. 73 m?? [facility] Comment: This patient's estimated GFR [...] Agency Comment Spec In Lab Consuelo Joyce PLANE TABLEMAN CHEMISTRY ORDERABLE S Performing Organization Address [facility] Co de Phone Number [facility] [place] [address] * CEA (07/21/2023 1:19 PM EDT) Carcinoembryonic Antigen 2.4 <=3.8 ng/mL [facility] Comment: Reference range: ??(20-69 years): Non-smoker: ??less than or equal to 3.8 ng/mL Smoker: ??less than 5.5 ng/ml This result was generated using a Deepak Dequan immunoassay. ??Results obtained from other methods or manufacturers cannot be used interchangeably with this method. Blood 07/21/2023 1:19 PM EDT 07/21/2023 1:56 PM EDT Narrative Resulting Agency Comment Spec In Lab Consuelo Joyce PLANE TABLEMAN CHEMISTRY ORDERABLE S Performing Organization Address [facility] Co de Phone Number [facility] [place] [address] documented in this encounter Visit Diagnoses Diagnosis [...] Intravenous, EVERY 1 MIN PRN, Starting on Tue07/21/23 at 1309, Until Tue07/22/23 at 0434, Line Care, Flush pertains to all indwelling lines. Flush per protocol found in the job aid using the link provided on this medication record. Refer to Intravenous (IV) Job Aid: Adult Flushing & Catheter Care (0537) job aid for additional information regarding guidelines and administration., Routine Given 07/21/2023 1:21 PM EDT 20 mLs documented in this encounter Care Teams Powerplant Operator Relationship Specialty Start Date End Date Ryan Betancourt MD [address] [place] [phone] PCP - General Family Medicine 07/29/22 documented as of this encounter
--- OUTSIDE RECORDS SUMMARY | 2024-06-01 20:40 | XMS_ITS | Encounter Summary ---
Author Organization [facility] Address [facility] [place] [address] Care Team Providers Care Supervisor Net Making Name Role Phone Ryan Betancourt MD Primary Care Provider [phone] Encounter Details Date Type Department Care Team (Latest Contact Info) Description 06/30/2023 Travel Social History Tobacco Use Types Packs/Day [...] AM EST Hospital En[place] [address] Consuelo Joyce APRN [facility] [place] [address] 06/14/2024 8:45 AM EST Appointment XRay at [address] [place] [address] Kavitha Rai MD [facility] DR [place] [address] 06/14/2024 9:45 AM EST Appointment Hematology [place] [address] 06/14/2024 11:00 AM EST Appointment [place] [address] Consuelo Joyce APRN [facility] [place] [address] 06/14/2024 1:00 PM EST Office Visit Hematology [place] [address] Kavitha Rai MD [facility] [place] [address] 06/14/2024 2:30 PM EST Appointment Hematology [place] [address] 07/05/2024 10:30 AM EDT Appointment Hematology and Oncology at [place] [phone] 07/05/2024 11:30 AM EDT Office Visit Hematology and Oncology at [place] [phone] Consuelo Joyce APRN [facility] [place] [address] 07/05/2024 1:00 PM EDT Appointment Hematology and Oncology at [place] [address] 08/16/2024 9:20 AM EDT Office Visit Ophthalmology at [place] [phone] Luz Jose, OD [facility] [place] [address] 01/14/2025 8:30 AM EDT Office Visit Psychiatry and Behavioral Health at [place] [address] Anna Oneill, PhD [facility] [place] [address] documented as of this encounter Visit Diagnoses Not on filedocumented in this encounter Care Teams Supervisor Net Making Relationship Specialty Start Date End Date Ryan Betancourt MD [address] [place] [phone] PCP - General Family Medicine 07/29/22 documented as of this encounter
--- OUTSIDE RECORDS SUMMARY | 2024-06-01 20:40 | XMS_ITS | Encounter Summary ---
Author Organization [facility] Address [facility] [place] [address] Care Team Providers Care Stitcher Feeder Name Role Phone Ryan Betancourt MD Primary Care Provider [phone] Encounter Details Date Type Department Care Team (Latest Contact Info) Description 07/21/2023 Travel Social History Tobacco Use Types Packs/Day [...] AM EST Hospital Encounter [place] [address] Consuelo Joyce APRN [facility] [place] [address] 06/14/2024 8:45 AM EST Appointment XRay at [address] [place] [phone] Kavitha Rai MD [facility] DR HEMATOLOGY [place] [address] 06/14/2024 9:45 AM EST Appointment Hematology [place] [address] 06/14/2024 11:00 AM EST Appointment [place] [address] Consuelo Joyce APRN [facility] [place] [address] 06/14/2024 1:00 PM EST Office Visit Hematology [place] [address] Kavitha Rai MD [facility] HEMATOLOG[place] [address] 06/14/2024 2:30 PM EST Appointment Hematology [place] [address] 07/05/2024 10:30 AM EDT Appointment Hematology and Oncology at [place] [phone] 07/05/2024 11:30 AM EDT Office Visit Hematology and Oncology at [place] [phone] Consuelo Joyce APRN [facility] [place] [address] 07/05/2024 1:00 PM EDT Appointment Hematology and Oncology at [place] [address] 08/16/2024 9:20 AM EDT Office Visit Ophthalmology at [place] [phone] Luz Jose, OD [facility] [place] [address] 01/14/2025 8:30 AM EDT Office Visit Psychiatry and Behavioral Health at [place] [address] Anna Oneill, PhD [facility] [place] [address] documented as of this encounter Visit Diagnoses Not on filedocumented in this encounter Care Teams Stitcher Feeder Relationship Specialty Start Date End Date Ryan Betancourt MD [address] [place] [phone] PCP - General Family Medicine 07/29/22 documented as of this encounter
--- OUTSIDE RECORDS SUMMARY | 2024-06-01 20:40 | XMS_ITS | Encounter Summary ---
Author Organization [facility] Address [facility] [place] [address] Care Team Providers Care Biomedical Electronics Technician Name Role Phone Ryan Betancourt MD Primary Care Provider [phone] Encounter Details Date Type Department Care Team (Late st Contact Info) Description 06/30/2023 Notes Only Care Management [facility] [place] [phone] Lilian Gipson, REPAIR MILLER Social History Tobacco Use Types Packs/Day Years [...] Progress Notes * Lilian Gipson MSW - 06/30/2023 2:58 PM EDT Per referral from Dr. Kavitha Rai I route sick/injury policy form to admin for processing, noting that [employer] has asked the form to be returned to her upon completion. Completed today: Care Coordination Willow Gipson (Stephanie) [facility] Comprehensive Breast Program [facility] documented in this encounter Plan of Treatment Upcoming Encounters Date Type Department Care Team (Late st Contact Info) Description 06/14/2024 8:00 AM EST Hospital Encounter [place] [phone] Consuelo Joyce APRN [facility] [place] [address] 06/14/2024 8:45 AM EST Appointment XRay at [address] [place] [phone] Kavitha Rai MD [facility] DR HEMATOLOGY [place] [address] 06/14/2024 9:45 AM EST Appointment Hematology [place] [phone] 06/14/2024 11:00 AM EST Appointment Nuclear Medicine [place] [address] Consuelo Joyce APRN [facility] [place] [place] [address] 06/14/2024 1:00 PM EST Office Visit Hematology and Oncology at [place] [address] Kavitha Rai MD [facility] [place] [address] 06/14/2024 2:30 PM EST Appointment Hematology and Oncology at [place] [address] 07/05/2024 10:30 AM EDT Appointment Hematology and Oncology at [place] [address] 07/05/2024 11:30 AM EDT Office Visit Hematology and Oncology at [place] [address] Consuelo Joyce APRN [facility] [place] [place] [address] 07/05/2024 1:00 PM EDT Appointment Hematology and Oncology at [place] [address] 08/16/2024 9:20 AM EDT Office Visit Ophthalmology at [place] [address] Luz Jose, [facility] [place] [address] 01/14/2025 8:30 AM EDT Office Visit Psychiatry and Behavioral Health at [place] [address] Anna Oneill, PhD [facility] [place] [address] documented as of this encounter Visit Diagnoses Not on filedocumented in this encounter Care Teams Biomedical Electronics Technician Relationship Specialty Start Date End Date Ryan Betancourt MD [address] [place] [phone] PCP - General Family Medicine 07/29/22 documented as of this encounter
--- OUTSIDE RECORDS SUMMARY | 2024-06-01 20:40 | XMS_ITS | Encounter Summary ---
[place] [address] Care Team Providers Care Experimental Machining Lab Manager Name Role Phone Ryan Betancourt MD Primary Care Provider [phone] Reason for Referral * Diagnostic Test (Routine) - Closed Specialty Diagnoses / Procedures Referred By Ciaran lopez Referred To Contact Radiology Diagnoses Malignant neoplasm of overlapping sites of right breast in female, estrogen receptor negative Procedures NM Bone Scan Whole Body Kavitha Rai MD [facility] [address] [place] [address] [place] [address] Referral ID Status Reason Start Date Expiration Date V isits Requested Visits Authorized [id number] Closed Specialty Service Requested 06/09/2023 12/07/2024 1 1 Reason for Visit * Diagnostic Test (Routine) - Closed Specialty Diagnoses / Procedures Referred By Ciaran lopez Referred To Contact Radiology Diagnoses Malignant neoplasm of overlapping sites of right breast in female, estrogen receptor negative Procedures NM Bone Scan Whole Body Kavitha Rai MD [facility] [address] [place] [address] [place] [address] Referral ID Status Reason Start Date Expiration Date V isits Requested Visits Authorized [id number] Closed Specialty Service Requested 06/09/2023 12/07/2024 1 1 Encounter Details Date Type Department Care Team (Latest Contact Info) Description 06/23/2023 11:24 AM EST - 06/23/2023 2:09 PM EST Hospital Encounter Nuclear Medicine at [facility] [place] [address] Kavitha Rai MD [facility] [address] [place] [address] Malignant neoplasm of overlapping sites of right [...] g 08/25/2022 omeprazole (PriLOSEC) 20 mg capsuleIndications:Clara gnant neoplasm of overlapping sites of [...] AM EST Hospital Encounter [place] [phone] Consuelo Joyce APRN [facility] [place] [address] 06/14/2024 8:45 AM EST Appointment XRay at [address] [place] [phone] Kavitha Rai MD [facility] [address] HEMATOLOGY [place] [address] 06/14/2024 9:45 AM EST Appointment Hematology and Oncology at [address] 06/14/2024 11:00 AM EST Appointment Nuclear Medicine at [place] [phone] [facility] [place] [address] 06/14/2024 1:00 PM EST Office Visit Hematology and Oncology at [place] [phone] Kavitha Rai MD [facility] [address] HEMATOLOGY [place] [address] 06/14/2024 2:30 PM EST Appointment Hematology and Oncology at [place] [phone] 07/05/2024 10:30 AM EDT Appointment Hematology and Oncology at [place] [phone] 07/05/2024 11:30 AM EDT Office Visit Hematology and Oncology at [place] [phone] [facility] [place] [address] 07/05/2024 1:00 PM EDT Appointment Hematology and Oncology at [place] [phone] 08/16/2024 9:20 AM EDT Office Visit Ophthalmology at [place] [phone] Luz Jose OD [facility] [address] 01/14/2025 8:30 AM EDT Office Visit Psychiatry and [place] [address] Anna Oneill, PhD [facility] [place] [address] documented as of this encounter Procedures Procedure [...] who have questions please contact the health acute care nurse practitioner that requested your imaging first. ? Electronically signed by: David Jack MD, [facility] ([phone]), at 06/24/2023 4:44 PM Narrative 06/24/2023 4:44 [...] patients who have questions please contactthe health acute care nurse practitioner that requested your imaging first. Electronically signed by: David Jack MD, [facility]([phone]), at 06/24/2023 4:44 PM Kavitha Rai MD IMG NM ORDERABLES documented [...] 1 dose, Starting on Yvette 06/23/23 at 1151, Until Yvette 06/23/23 at 1150, Per Protocol, Radiology Contrast, Routine Given 06/23/2023 11:50 AM EST 26 mCi documented in this encounter Care Teams Experimental Machining Lab Manager Relationship Specialty Start Date End Date Ryan Betancourt MD [address] [place] [phone] PCP - General Family Medicine 07/29/22 documented as of this encounter
--- OUTSIDE RECORDS SUMMARY | 2024-06-01 20:40 | XMS_ITS | Encounter Summary ---
Author Organization [facility] Address [facility] [place] [address] Care Team Providers Care Retail Sales Vitamin Consultant Name Role Phone Ryan Betancourt MD Primary Care Provider [phone] Encounter Details Date Type Department Care Team (Latest Contact Info) Description 06/09/2023 Travel Social History Tobacco Use Types Packs/Day [...] AM EST Hospital En[place] [address] Consuelo Joyce APRN [facility] [place] [address] 06/14/2024 8:45 AM EST Appointment XRay at [address] [place] [address] Kavitha Rai MD [facility] DR HEMATOLOGY [place] [address] 06/14/2024 9:45 AM EST Appointment Hematology [place] [address] 06/14/2024 11:00 AM EST App[place] [address] Consuelo Joyce APRN [facility] [place] [address] 06/14/2024 1:00 PM EST Office Visit Hematology [place] [address] Kavitha Rai MD [facility] HEMATOLOGY [place] [address] 06/14/2024 2:30 PM EST Appointment Hematology [place] [address] 07/05/2024 10:30 AM EDT Appointment Hematology and Oncology at [place] [phone] 07/05/2024 11:30 AM EDT Office Visit Hematology and Oncology at [place] [phone] Consuelo Joyce APRN [facility] [place] [address] 07/05/2024 1:00 PM EDT Appointment Hematology and Oncology at [place] [address] 08/16/2024 9:20 AM EDT Office Visit Ophthalmology at [place] [phone] Luz Jose, OD [facility] [place] [address] 01/14/2025 8:30 AM EDT Office Visit Psychiatry and Behavioral Health at [place] [address] Anna Oneill, PhD [facility] [place] [address] documented as of this encounter Visit Diagnoses Not on filedocumented in this encounter Care Teams Retail Sales Vitamin Consultant Relationship Specialty Start Date End Date Ryan Betancourt MD [address] [place] [phone] PCP - General Family Medicine 07/29/22 documented as of this encounter
--- OUTSIDE RECORDS SUMMARY | 2024-06-01 20:40 | XMS_ITS | Encounter Summary ---
Author Organization [facility] Address [facility] [place] [address] Care Team Providers Care Boom Pump Operator Name Role Phone Ryan Betancourt MD Primary Care Provider [phone] Encounter Details Date Type Department Care Team (Latest Contact Info) Description 06/23/2023 Travel Social History Tobacco Use Types Packs/Day [...] AM EST Hospital En[place] [address] Consuelo Joyce APRN [facility] [place] [address] 06/14/2024 8:45 AM EST Appointment XRay at [address] [place] [address] Kavitha Rai MD [facility] DR HEM[place] [address] 06/14/2024 9:45 AM EST Appointment Hematology [place] [address] 06/14/2024 11:00 AM EST Appointment [place] [address] Consuelo Joyce APRN [facility] [place] [address] 06/14/2024 1:00 PM EST Office Visit Hematology [place] [address] Kavitha Rai MD [facility] [place] [address] 06/14/2024 2:30 PM EST Appointment Hematology [place] [address] 07/05/2024 10:30 AM EDT Appointment Hematology and Oncology at [place] [phone] 07/05/2024 11:30 AM EDT Office Visit Hematology and Oncology at [place] [phone] Consuelo Joyce APRN [facility] [place] [place] [address] 07/05/2024 1:00 PM EDT Appointment Hematology and Oncology at [place] [address] 08/16/2024 9:20 AM EDT Office Visit Ophthalmology at [place] [phone] Luz Jose, OD [facility] [place] [address] 01/14/2025 8:30 AM EDT Office Visit Psychiatry and Behavioral Health at [place] [phone] Anna Oneill, PhD [facility] [place] [address] documented as of this encounter Visit Diagnoses Not on filedocumented in this encounter Care Teams Boom Pump Operator Relationship Specialty Start Date End Date Ryan Betancourt MD [address] [place] [phone] PCP - General Family Medicine 07/29/22 documented as of this encounter
--- OUTSIDE RECORDS SUMMARY | 2024-06-01 20:40 | XMS_ITS | Encounter Summary ---
Author Organization [facility] Address [facility] [place] [address] Care Team Providers Care Outreach Clinician Name Role Phone Ryan Betancourt MD Primary Care Provider [phone] Encounter Details Date Type Department Care Team (Latest Contact Info) Description 06/16/2023 Travel Social History Tobacco Use Types Packs/Day [...] AM EST Hospital Encounter [place] [address] Consuelo Joyce APRN [facility] [place] [address] 06/14/2024 8:45 AM EST Appointment XRay at [address] [place] [address] Kavitha Rai MD [facility] DR [place] [address] 06/14/2024 9:45 AM EST Appointment Hematology [place] [address] 06/14/2024 11:00 AM EST Appointment [place] [address] Consuelo Joyce APRN [facility] [place] [address] 06/14/2024 1:00 PM EST Office Visit Hematology [place] [address] Kavitha Rai MD [facility] [place] [address] 06/14/2024 2:30 PM EST Appointment Hematology [place] [address] 07/05/2024 10:30 AM EDT Appointment Hematology and Oncology at [place] [phone] 07/05/2024 11:30 AM EDT Office Visit Hematology and Oncology at [place] [phone] Consuelo Joyce APRN [facility] [place] [address] 07/05/2024 1:00 PM EDT Appointment Hematology and Oncology at [place] [address] 08/16/2024 9:20 AM EDT Office Visit Ophthalmology at [place] [phone] Luz Jose, OD [facility] [place] [address] 01/14/2025 8:30 AM EDT Office Visit Psychiatry and Behavioral Health at [place] [address] Anna Oneill, PhD [facility] [place] [address] documented as of this encounter Visit Diagnoses Not on filedocumented in this encounter Care Teams Outreach Clinician Relationship Specialty Start Date End Date Ryan Betancourt MD [address] [place] [phone] PCP - General Family Medicine 07/29/22 documented as of this encounter
--- OUTSIDE RECORDS SUMMARY | 2024-06-01 20:40 | XMS_ITS | Encounter Summary ---
Author Organization [facility] [place] [address] Care Team Providers Care Labor Relations Consultant Name Role Phone Ryan Betancourt MD Primary Care Provider [phone] Reason for Visit * Treatment/Therapy Plan Authorization (Routine) - Closed Specialty Diagnoses / Procedures Referred By Ciaran lopez Referred To Contact Diagnoses Malignant neoplasm of overlapping sites of right breast in female, estrogen receptor negative Procedures -PHESGO (PERTUZUMAB TRASTUZUMAB & HYALURONIDASE-ZZXF) Kavitha Rai MD [facility] DR HEMATOLOGY [place] [address] [facility] [address] [place] [address] Referral ID Status Reason Start Date Expiration Date Visits Re quested Visits Authorized [id number] Closed 04/07/2023 04/06/2024 1 106 Encounter Details Date Type Department Care Team (Latest Contact Info) Description 06/30/2023 12:08 PM EDT - 06/30/2023 11:59 PM EDT Hospital Encounter Hematology [place] [address] Malignant neoplasm of overlapping sites [...] Progress Notes * Marin Ramirez RN - 06/30/2023 3:51 PM EDT Patient Name: Soy San Patient Age: 42 y.o. Birthdate: 1980 Admit date: 06/30/2023 Attending Physician: No att. providers found Soy San, 42 y.o. female with diagnosis of breast cancer is here for chemotherapy injection of Phesgo, along with an injection of Denosumab and add on oral potassium due to potassium level of 3.4 today. PROTOCOL: n/a CYCLE: 4 DAY: 1 S: Patient agreeable to treatment [...] weight and BSA by Marin Ramirez RN, and a [facility] [place] pharmacist. Chemotherapy administered per protocol. REACTIONS (DESCRIPTION, TIME, INTERVENTION AND EFFECTIVENESS) None 15 min post observation completed, no symptoms or adverse effects found after assessment and patient report. A: Patient received treatment as ordered, reports feeling well enough to return home. Soy San confirms that all questions and concerns have been addressed prior to departure. P: Return to for care as scheduled. documented in this encounter Plan of Treatment Upcoming Encounters Date Type Department Care Team (Late st Contact Info) Description 06/14/2024 8:00 AM EST Hospital Encounter Nuclear Medicine at [place] [phone] Consuelo Joyce [facility] [place] [address] 06/14/2024 8:45 AM EST Appointment XRay at [address] [place] [address] Kavitha Ria MD [facility] DR [place] [address] 06/14/2024 9:45 AM EST Appointment Hematology [place] [address] 06/14/2024 11:00 AM EST Appointment [place] [address] Consuelo Joyce [facility] [place] [address] 06/14/2024 1:00 PM EST Office Visit Hematology [place] [address] Kavitha Rai MD [facility] DR HEMATOLOGY [place] [address] 06/14/2024 2:30 PM EST Appointment Hematology [place] [address] 07/05/2024 10:30 AM EDT Appointment Hematology [place] [address] 07/05/2024 11:30 AM EDT Office Visit Hematology [place] [address] Consuelo Joyce APRN [facility] [place] [address] 07/05/2024 1:00 PM EDT Appointment Hematology [place] [address] 08/16/2024 9:20 AM EDT Office [place] [phone] Luz Jose, OD [facility] [place] [address] 01/14/2025 8:30 AM EDT Office Visit Psychiatry and Behavioral Health at [place] [phone] Anna Oneill, PhD [facility] [address] documented as of this encounter Visit Diagnoses Diagnosis Malignant neoplasm of overlapping sites of right breast in female, estrogen receptor negative documented in this encounter Administered Medications Inactive Administered Medications - up to 3 most recent administrations Medication Order MAR Action Action Date Dose Rate Site calcium carbonate (TUMS) chewable tablet 500 mg 500 mg, Oral, ONCE, 1 dose, On Tue06/30/23 at 1500, Routine Given 06/30/2023 3:09 PM EDT 500 mg denosumab (Xgeva) (120 mg/1.7 mL) subcutaneous injection 120 mg 120 mg, Subcutaneous, ONCE, 1 dose, On Yvette 06/30/23 at 1500, - Bring to room temperature 15-30 minutes before administration. - Call provider for corrected calcium less than 8.5 mg/dL or CrCl less than 30 mL/min., This agent is restricted to outpatient use. Is this drug being given as an outpatient? Yes Given 06/30/2023 3:11 PM EDT 120 mg Left Arm PERTuzumab, TRASTuzumab and hyaluronidase-zzxf (Phesgo) (600 mg-600 mg-20,000 units per 10 mL) subcutaneous injection 1,200 mg 1,200 mg, Subcutaneous, Administer over 5 Minutes, ONCE, 1 dose, On Yvette 06/30/23 at 1600, Observe patients for infusion-related reactions [...] being given as an outpatient? Yes Given 06/30/2023 3:28 PM EDT 1,200 mg 20-Other (document in comment section) potassium chloride ER (Klor-Con M) crystal tablet 20 mEq 20 mEq, Oral, ONCE, 1 dose, On Yvette 06/30/23 at 1500, potassium chloride ER particle/crystal tablets (Klor-Con M) may be broken in half and each half swallowed separately. Tablets can be dissolved in ~4 ounces of water; allow ~2 minutes to dissolve, stir well and drink immediately. Do not crush, chew, or suck on tablet., Routine Given 06/30/2023 3:09 PM EDT 20 mEq documented in this encounter Care Teams Labor Relations Consultant Relationship Specialty Start Date End Date Ryan Betancourt MD [address] [place] [phone] PCP - General Family Medicine 07/29/22 documented as of this encounter
--- OUTSIDE RECORDS SUMMARY | 2024-06-01 20:40 | XMS_ITS | Encounter Summary ---
Author Organization [facility] Address [facility] [place] [address] Care Team Providers Care Letter Of Credit Document Examiner Name Role Phone Ryan Betancourt MD Primary Care Provider [phone] Reason for Visit * Reason Comments Follow-up Encounter Details Date Type Department Care Team ([facility] st Contact Info) Description 07/21/2023 2:30 PM EDT Office Visit Hematology [place] [phone] Consuelo Joyce APRN [facility] [place] [address] Malignant neoplasm of overlapping sites of right [...] Sign Reading Time Taken Comments Blood Pressure 144/88 07/21/2023 2:14 PM EDT Pulse 71 07/21/2023 2:14 PM EDT Temperature 36.6 ??C (97.9 ??F) 07/21/2023 2:14 PM ED T Respiratory Rate 15 07/21/2023 2:14 PM EDT Oxygen Saturation 96% 07/21/2023 2:14 PM EDT Inhaled Oxygen Concentration - - Weight 106.4 kg (234 lb 9.1 oz) 07/21/2023 2:14 PM EDT Height 161.6 cm (5' 3.62) 07/21/2023 2:14 PM ED T Body Mass Index 40.74 07/21/2023 2:14 PM EDT documented in this encounter Progress Notes * Consuelo Joyce, FILTER TIP INSPECTOR - 07/21/2023 2:30 PM EDT Patient ID: Soy San is a 42 y.o. 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 She is s/p THP x6 with excellent clinical response and is on H and P alone since 12/23/2022. She is on xgeva with a plan for every 6 weeks started 02/24/2023. 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 PET CT 04/07/2023: [...] 1st & 2nd week following infusion. Saw [facility] this morning who made recommendations for her. [...] After THP #1, she went to a [employer], ate half a salad. This was fine. [...] right breast in the shower. Subsequently called [facility] womans wellness, seen that day. 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 Lab Results Component Value Date WBC 8.0 07/21/2023 HGB 13.9 07/21/2023 HCT 41.1 07/21/2023 MCV 81.4 (L) 07/21/2023 PLATELET 330 07/21/2023 Lab Results Component Value Date NEUTROABS 5.39 07/21/2023 Lab Results Component Value Date NA 141 07/21/2023 K 3.7 07/21/2023 CL 106 07/21/2023 CO2 26 07/21/2023 BUN 15 07/21/2023 CREATININE 0.67 (L) 07/21/2023 GLUCOSE 101 07/21/2023 CALCIUM 8.8 07/21/2023 ESTGFR 110 07/21/2023 Lab Results Component Value Date ALT 21 07/21/2023 AST 13 07/21/2023 ALKPHOS 66 07/21/2023 BILITOT 0.4 07/21/2023 ALBUMIN 4.3 07/21/2023 PROT 6.9 07/21/2023 CEA (ng/mL) Date Value 07/21/2023 2.4 03/17/2023 2.1 01/13/2023 2.0 12/23/2022 2.8 11/11/2022 3.4 CA 15-3 (unit/mL) Date Value 07/21/2023 32 (H) 06/30/2023 28 (H) 06/09/2023 28 (H) 05/19/2023 29 (H) 04/28/2023 29 (H) A/P: Soy San is a [...] [facility]. New [facility] findings concerning for recurrent [...] fsh and lh orders placed for next time -Continue denosumab q6w -order signed for today. Some confusion over q12 or 4 week regiment. Preferq4 week however will sync up with [facility] and make it q6 week. 3. RTC 3 weeks for MD[facility]ROD STRAIGHTENER [facility] Total time spent: 40 minutes with > 50% spend in discussion of above Future Appointments Date Time Provider Department Center 08/11/2023 1:15 PM ACCESS ROOM [facility] [address] [place] [address] 08/11/2023 2:00 PM Consuelo Joyce APRN [facility] 08/11/2023 3:30 PM LEB INFUSION THERAPY [facility] [address] [place] [address] 09/01/2023 12:15 PM ACCESS ROOM [address] 09/01/2023 1:20 PM Kavitha Rai MD [facility] 09/01/2023 3:00 PM LEB INFUSION THERAPY [facility] [address] [place] [address] 09/22/2023 12:00 PM ACCESS ROOM [facility] [address] [place] [address] 09/22/2023 1:00 PM Kavitha Rai MD [facility] 09/22/2023 2:30 PM LEB INFUSION THERAPY [facility] [address] [place] [address] 10/13/2023 12:00 PM ACCESS ROOM [facility] [address] [place] [address] 10/13/2023 1:00 PM Consuelo Joyce APRN [facility] 10/13/2023 2:30 PM LEB INFUSION THERAPY [address] documented in this encounter Plan of Treatment Upcoming Encounters Date Type Department Care Team (Late st Contact Info) Description 06/14/2024 8:00 AM EST Hospital Encounter Nuclear Medicine at [place] [phone] Consuelo Joyce [facility] [place] [address] 06/14/2024 8:45 AM EST Appointment XRay at [address] [place] [address] Kavitha Rai MD [facility] DR [place] [address] 06/14/2024 9:45 AM EST Appointment Hematology [place] [address] 06/14/2024 11:00 AM EST Appointment [place] [address] Consuelo Joyce [facility] [place] [address] 06/14/2024 1:00 PM EST Office Visit Hematology [place] [address] Kavitha Rai MD [facility] DR [place] [address] 06/14/2024 2:30 PM EST Appointment Hematology [place] [address] 07/05/2024 10:30 AM EDT Appointment Hematology [place] [address] 07/05/2024 11:30 AM EDT Office Visit Hematology [place] [address] Consuelo Joyce APRN [facility] [place] [address] 07/05/2024 1:00 PM EDT Appointment Hematology and Oncology at [place] [phone] 08/16/2024 9:20 AM EDT Office Visit Ophthalmology at [address] Luz Jose, OD [facility] [place] [address] 01/14/2025 8:30 AM EDT Office Visit Psychiatry and Behavioral Health at [place] [address] Anna Oneill, PhD [facility] [place] [address] documented as of this encounter Visit Diagnoses Diagnosis Malignant neoplasm of overlapping sites of right breast in female, estrogen receptor negative Carcinoma of breast metastatic to bone, unspecified laterality Medication management Encounter for long-term (current) use of other medications documented in this encounter Care Teams Letter Of Credit Document Examiner Relationship Specialty Start Date End Date Ryan Betancourt MD [address] [place] [phone] PCP - General Family Medicine 07/29/22 documented as of this encounter
--- OUTSIDE RECORDS SUMMARY | 2024-06-01 20:40 | XMS_ITS | Encounter Summary ---
Author Organization [facility] [place] [address] Care Team Providers Care Doll Dresser Name Role Phone Ryan Betancourt MD Primary Care Provider [phone] Reason for Visit * Treatment/Therapy Plan Authorization (Routine) - Closed Specialty Diagnoses / Procedures Referred By Ciaran lopez Referred To Contact Diagnoses Malignant neoplasm of overlapping sites of right breast in female, estrogen receptor negative Procedures -PHESGO (PERTUZUMAB TRASTUZUMAB & HYALURONIDASE-ZZXF) Kavitha Rai MD [facility] [address] HEMATOLOGY [place] [address] [facility] [address] [place] [address] Referral ID Status Reason Start Date Expiration Date Visits Re quested Visits Authorized [id number] Closed 04/07/2023 04/06/2024 1 106 Encounter Details Date Type Department Care Team (Latest Contact Info) Description 06/09/2023 12:11 PM EST Hospital Encounter [place]ology [place] [address] Malignant neoplasm of overlapping sites [...] as of this encounter Progress Notes * Seth Valdes RN - 06/09/2023 3:34 PM EST Patient Name: Soy San Patient Age: 42 y.o. Birthdate: 1980 Admit date: 06/09/2023 Attending Physician: No att. providers found DIAGNOSIS: 1. Malignant neoplasm of overlapping sites of right breast in female, estrogen receptor negative REASON FOR VISIT: Injection of Phesgo and oral potassium replacement TIME PATIENT SEATED: 1442 TIME TREATMENT ENDED: 1532 Allergies Allergen Reactions Milk Containing Products (Dairy) Tegaderm [Transparent Dressings] Skin irritation/darkening with tegaderm. Use sorbaview Other [Unclassified Drug] Hives Pollen - runny nose, itchy and watery eyes PROTOCOL: N/A CYCLE: 3 WEEK: N/A DAY: 1 SUBJECTIVE: Patient offers no complaints at this time. OBJECTIVE: Reviewed plan of care including but not limited to medication administration, potassium replacement; patient verbalized understanding to information provided. LAB DATA: Recent Results (from the past 24 hour(s)) Cancer antigen 15-3 Result Value Ref Range CA 15-3 28 (H) <=25 unit/mL Comprehensive metabolic panel (non-fasting) Result Value Ref Range Glucose Lvl 142 65 - 199 mg/dL BUN 17 8 - 18 mg/dL Creatinine 0.68 (L) 0.70 - 1.20 mg/dL Sodium 142 135 - 145 mmol/L Potassium 3.2 (L) 3.5 - 5.0 mmol/L Chloride 106 98 - 107 mmol/L CO2 26 22 - 31 mmol/L Anion Gap 10 5 - 15 mmol/L Calcium 8.9 8.5 - 10.5 mg/dL Total Protein 6.9 6.1 - 8.0 g/dL Albumin 4.1 3.2 - 5.2 g/dL AST 16 0 - 30 unit/L ALT 18 0 - 30 unit/L Alk Phos 71 35 - 105 unit/L Total Bilirubin 0.3 0.2 - 1.3 mg/dL Estimated GFR 110 >=60 mL/min/1.73 m?? Hemogram Result Value Ref Range WBC 7.1 4.0 - 9.5 x10(3)/mcL RBC 4.83 4.00 - 5.21 x10(6)/mcL Hemoglobin 13.4 11.7 - 15.5 g/dL Hematocrit 39.1 35.7 - 45.8 % MCV 81.0 (L) 82.6 - 94.4 fL MCH 27.7 27.1 - 32.0 pg MCHC 34.3 31.7 - 35.0 g/dL Platelets 256 145 - 357 x10(3)/mcL RDWSD 40.6 37.0 - 46.0 fL RDWCV 13.7 11.5 - 14.1 % MPV 10.1 7.6 - 12.9 fL nRBC % Auto 0.0 % nRBC Abs Auto 0.000 0.000 - 0.000 x10(3)/mcL Differential, Automated Result Value Ref Range Neutrophils % 62.1 % Neutr Abs (ANC) 4.38 1.70 - 6.10 x10(3)/mcL Lymphocytes % 30.7 % Lymphocytes Abs 2.2 0.9 - 3.2 x10(3)/mcL Monocytes % 3.3 % Monocyte Abs 0.2 (L) 0.3 - 0.9 x10(3)/mcL Eosinophils % 3.0 % Eosinophils Abs 0.2 0.0 - 0.4 x10(3)/mcL Basophils % 0.1 % Basophils Abs 0.0 0.0 - 0.1 x10(3)/mcL Immature Gran % 0.80 % Aliza Gran Abs 0.06 (H) 0.00 - 0.04 x10(3)/mcL IV ACCESS: Implanted Port - Single Lumen (non-apheresis) 09/10/22 0851 infraclavicular fossa, left power injectable port (Active) Port Accessed Date 06/09/23 06/09/23 1229 Port Accessed Time 1229 06/09/23 1229 Access Needle 19 gauge;3/4 in length 06/09/23 1229 Pain Prevention intradermal injection;distraction;topical anesthetic cream applied 06/09/23 1229 Indication/Daily Review of Necessity Inadequate peripheral IV access (see comment);Medications known to cause phlebitis (vasopressors, concentrated electrolytes, TPN, chemotherapy) 02/24/23 1200 Site Preparation/Maintenance dressing: dry and intact 06/09/23 1515 Securement secured with sterile tape strips 06/09/23 1229 Lumen Patency/Care flushed without difficulty;blood return present 06/09/23 1515 Phlebitis 0-->no symptoms 06/09/23 1515 Infiltration 0-->no symptoms 06/09/23 1515 Site Signs/Symptoms no redness;no swelling;no warmth;no pain;no palpable cord;no streak formation;no drainage 06/09/23 1515 Vascular Access Port Interventions blood specimen obtained and sent to lab 06/09/23 122 Port De-access Date 06/09/23 06/09/23 1515 Port De-Access Time 1515 06/09/23 1515 Port De-Access Indication other (see comments) 06/09/23 1515 Orders independently verified for correct drug name, route and dosage per patient's height, weight and BSA by Seth Valdes RN and pharmacist per protocol. REACTIONS: NONE ASSESSMENT: Soy San awake and alert - tolerated treatment well; observed post Phesgo injection without issue. Soy San confirms that all questions and issues have been addressed. PLAN: Return to clinic as scheduled. documented in this encounter Miscellaneous Notes * Addendum Note - Seth Valdes RN - 06/09/2023 3:38 PM ESTEncounter addended by: Seth Valdes RN on: 06/09/2023 3:38 PM Actions taken: Clinical Note Signed documented in this encounter Plan of Treatment Upcoming Encounters Date Type Department Care Team (Late st Contact Info) Description 06/14/2024 8:00 AM EST Hospital Encounter Nuclear Medicine at [place] [phone] Consuelo Joyce [facility] [place] [address] 06/14/2024 8:45 AM EST Appointment XRay at [address] [place] [address] Kavitha Rai MD [facility] [address] HEMATOLOGY [place] [address] 06/14/2024 9:45 AM EST Appointment Hematology [place] [phone] 06/14/2024 11:00 AM EST Appointment Nuclear Medicine at [place] [phone] Consuelo Joyce [facility] [place] [address] 06/14/2024 1:00 PM EST Office Visit Hematology [place] [address] Kavitha Rai MD [facility] [address] HEMATOLOGY [place] [address] 06/14/2024 2:30 PM EST Appointment Hematology [place] [phone] 07/05/2024 10:30 AM EDT Appointment Hematology [place] [address] 07/05/2024 11:30 AM EDT Office Visit [place]ematology [place] [address] Consuelo Joyce APRN [facility] [place] [address] 07/05/2024 1:00 PM EDT Appointment Hematology and Oncology at [place] [phone] 08/16/2024 9:20 AM EDT Office [place] [phone] Luz Jose, OD [facility] [place] [address] 01/14/2025 8:30 AM EDT Office Visit Psychiatry and Behavioral Health at [place] [phone] Anna Oneill, PhD [facility] [place] [address] documented as of this encounter Results * (ABNORMAL) Cancer antigen 15-3 (06/09/2023 12:20 PM EST) Pathologist [facility] CA 15-3 28(H) <=25 unit/mL [facility] Comment: This result was generated using a Deepak Dequan immunoassay. ??Results obtained from other methods or manufacturers cannot be used interchangeably with this method. Blood 06/09/2023 12:2 0 PM EST 06/09/2023 12:41 PM EST Narrative Resulting Agency Comment Spec In Lab Kavitha Rai MD CHEMISTRY ORDERABLES [facility] [place] [address] * (ABNORMAL) Comprehensive metabolic panel (non-fasting) (06/09/2023 12:20 PM EST) Pathologist [facility] Glucose 142 65 - 199 mg/dL [facility] Comment:Diabetes: >=200 mg/d L plus symptoms Blood Urea Nitrogen 17 8 - 18 mg/dL [facility] Creatinine 0.68(L) 0.70 - 1.20 mg/dL [facility] Sodium 142 135 - 145 mmol/L [facility] Potassium 3.2(L) 3.5 - 5.0 mmol/L [facility] Comment: Please note: ??Patients with WBC >100,000 may have falsely elevated Potassium levels. ??For accurate Potassium quantification in these patients send serum separator tube (gold top) for subsequent determinations. ??Contact the Clinical Chemistry Laboratory if there are any questions. Chloride 106 98 - 107 mmol/L [facility] Carbon Dioxide 26 22 - 31 mmol/L [facility] Anion Gap 10 5 - 15 mmol/L [facility] Calcium 8.9 8.5 - 10.5 mg/dL [facility] Protein, Total 6.9 6.1 - 8.0 g/dL [facility] Albumin 4.1 3.2 - 5.2 g/dL [facility] Aspartate Aminotransferase 16 0 - 30 unit/L [facility] Alanine Aminotransferase 18 0 - 30 unit/L [facility] Alkaline Phosphatase 71 35 - 105 unit/L [facility] Bilirubin, Total 0.3 0.2 - 1.3 mg/dL [facility] Est Glomerular Filtration Rate 110 >=60 mL/min/1. 73 m?? [facility] Comment: This patient's estimated GFR [...] In Lab Kavitha Rai MD CHEMISTRY ORDERABLES [facility] [place] [address] documented in this encounter Visit Diagnoses Diagnosis [...] 5 Minutes, ONCE, 1 dose, On Yvette 06/09/23 at 1445, Observe patients for infusion-related reactions for a [...] being given as an outpatient? Yes Given 06/09/2023 3:04 PM EST 1,200 mg 20-Other (document in comment section) potassium chloride ER (Klor-Con M) crystal tablet 20 mEq 20 mEq, Oral, ONCE, 1 dose, On Yvette 06/09/23 at 1430, potassium chloride ER particle/crystal tablets (Klor-Con M) may be broken in half and each half swallowed separately. Tablets can be dissolved in ~4 ounces of water; allow ~2 minutes to dissolve, stir well and drink immediately. Do not crush, chew, or suck on tablet., Routine Given 06/09/2023 3:02 PM EST 20 mEq documented in this encounter Care Teams Doll Dresser Relationship Specialty Start Date End Date Ryan Betancourt MD [address] [place] [phone] PCP - General Family Medicine 07/29/22 documented as of this encounter
--- OUTSIDE RECORDS SUMMARY | 2024-06-01 20:41 | XMS_ITS | Encounter Summary ---
[place] [address] Care Team Providers Care Screen Cutter And Trimmer Name Role Phone Ryan Betancourt MD Primary Care Provider [phone] Reason for Visit * Treatment/Therapy Plan Authorization (Routine) - Closed Specialty Diagnoses / Procedures Referred By Ciaran lopez Referred To Contact Diagnoses Malignant neoplasm of overlapping sites of right breast in female, estrogen receptor negative Procedures -PHESGO (PERTUZUMAB TRASTUZUMAB & HYALURONIDASE-ZZXF) Kavitha Rai MD [facility] [address] [place] [address] [facility] [address] [place] [address] Referral ID Status Reason Start Date Expiration Date Visits Re quested Visits Authorized [id number] Closed 04/07/2023 04/06/2024 1 106 Encounter Details Date Type Department Care Team (Latest Contact Info) Description 05/19/2023 9:56 AM EST - 05/19/2023 11:59 PM EST Hospital Encounter Hematology [place] [phone] Malignant neoplasm of overlapping sites [...] topically 2 times daily. 30 g 08/25/2022 gabapentin (Neurontin) 300 mg capsuleIndications:Clara gnant neoplasm of overlapping sites of right breast in female, estrogen receptor negative,Deformity of nail bed Take 1 capsule by mouth nightly. 30 capsule 1 01/13/2023 06/09/2023 omeprazole (PriLOSEC) [address] capsuleIndications:Clara gnant [...] Progress Notes * Fabi Gilbert RN - 05/19/2023 10:11 AM EST Patient Name: Soy San Patient Age: 42 y.o. Birthdate: 1980 Admit date: 05/19/2023 Attending Physician: No att. providers found Access visit. See MAR and/or flowsheet. documented in this encounter Plan of Treatment Upcoming Encounters Date Type Department Care Team (Late st Contact Info) Description 06/14/2024 8:00 AM EST Hospital En[place] [phone] Consuelo Joyce APRN [facility] [place] [address] 06/14/2024 8:45 AM EST Appointment XRay at [address] [place] [phone] Kavitha Rai MD [facility] [place] [address] 06/14/2024 9:45 AM EST Appointment Hematology and Oncology at [place] [address] 06/14/2024 11:00 AM EST Appointment Nuclear Medicine at [address] Consuelo Joyce APRN [facility] [place] [address] 06/14/2024 1:00 PM EST Office Visit Hematology and Oncology at [address] Kavitha Rai MD [facility] [address] [place] [address] 06/14/2024 2:30 PM EST Appointment Hematology and Oncology at [place] [phone] 07/05/2024 10:30 AM EDT Appointment Hematology and Oncology at [place] [address] 07/05/2024 11:30 AM EDT Office Visit Hematology and Oncology at [place] [phone] Consuelo Joyce [facility] [place] [address] 07/05/2024 1:00 PM EDT Appointment Hematology and Oncology at [place] [phone] 08/16/2024 9:20 AM EDT Office Visit Ophthalmology at [place] [phone] Luz Jose OD [facility] [place] [address] 01/14/2025 8:30 AM EDT Office Visit Psychiatry and Behavioral Health at [facility] [place] [address] Anna Oneill, PhD [facility] [place] [address] documented as of this encounter Procedures Procedure Name Priority Date/Time Associated Diagnosis Comments HEMOGRAM STAT 05/19/2023 10:05 AM EST Malignant neoplasm of overlapping sites of right breast in female, estrogen receptor negative DIFFERENTIAL, AUTOMATED STAT 05/19/2023 10:05 AM EST Malignant neoplasm of overlapping sites of right breast in female, estrogen receptor negative CANCER ANTIGEN 15-3 STAT 05/19/2023 1 0:05 AM EST Malignant neoplasm of overlapping sites of right breast in female, estrogen receptor negative CBC (WITH DIFF) STAT 05/19/2023 10:05 AM EST Malignant neoplasm of overlapping sites of right breast in female, estrogen receptor negative COMPREHENSIVE METABOLIC PANEL STAT 05/19/2023 10:05 AM EST Malignant neoplasm of overlapping sites of right breast in female, estrogen receptor negative documented in this encounter Results * Differential, Automated (05/19/2023 10:05 AM EST) Neutrophil % 63.1 % [facility] Neutrophil Absolute 3.60 1.70 - 6.10 x10(3)/[facility] Lymph % 26.8 % [facility] Lymphocytes Abs 1.5 0.9 - 3.2 x10(3)/[facility] Monocyte % 6.1 % [facility] Monocyte Abs 0.4 0.3 - 0.9 x10(3)/[facility] Eos % 3.3 % [facility] Eosinophils Abs 0.2 0.0 - 0.4 x10(3)/[facility] Basophil % 0.5 % [facility] Baso Absolute 0.0 0.0 - 0.1 x10(3)/mcL [facility] Immature Gran % 0.20 % [facility] Comment: Immature granulocytes(IG's)percentage and absolute count will include metamyelocytes, myelocytes, and promyelocytes. Blood smears from CBCs yielding IG's will be scanned manually for concordance. If this scan disagrees with the automated IG or if promyelocytes are noted, a manual differential will be performed. Immature Gran Absolute 0.01 0.00 - 0.04 x10(3)/mcL [facility] Blood 05/19/2023 10:0 5 AM EST 05/19/2023 10:15 AM EST Narrative Resulting Agency Comment Spec In Lab Kavitha Rai MD HEMATOLOGY ORDERABLE S Performing Organization Address City/State/[facility] Co de Phone Number [facility] [place] [address] * (ABNORMAL) Hemogram (05/19/2023 10:05 AM EST) White Blood Cell 5.7 4.0 - 9.5 x10(3)/mc L [facility] Red Blood Cell 4.97 4.00 - 5.21 x10(6)/mc L [facility] Hemoglobin 13.6 11.7 - 15.5 g/dL [facility] Hematocrit 40.3 35.7 - 45.8 % [facility] Mean Cell Volume 81.1(L) 82.6 - 94.4 fL [facility] Mean Cell Hemoglobin 27.4 27.1 - 32.0 pg [facility] Mean Cell Hemoglobin Concentration 33.7 31.7 - 35.0 g/dL [facility] Platelet 255 145 - 357 x10(3)/mc L [facility] RDW Standard Deviation 42.5 37.0 - 46.0 fL [facility] RDW coefficient of variation 14.6(H) 11.5 - 14.1 % [facility] Mean Platelet Volume 9.9 7.6 - 12.9 fL [facility] NRBC% auto 0.0 % [facility] NRBC Absolute 0.000 0.000 - 0.000 x10(3)/mc L [facility] Blood 05/19/2023 10:0 5 AM EST 05/19/2023 10:15 AM EST Narrative Resulting Agency Comment Spec In Lab Kavitha Rai MD HEMATOLOGY ORDERABLE S Performing Organization Address City/[facility] Co de Phone Number [facility] [place] [address] * (ABNORMAL) Cancer antigen 15-3 (05/19/2023 10:05 AM EST) CA 15-3 29(H) <=25 unit/mL [facility] Comment: This result was generated using a Deepak Dequan immunoassay. ??Results obtained from other methods or manufacturers cannot be used interchangeably with this method. Blood 05/19/2023 10:0 5 AM EST 05/19/2023 10:15 AM EST Narrative Resulting Agency Comment Spec In Lab Kavitha Rai MD CHEMISTRY ORDERABLES Performing Organization Address [facility] Co de Phone Number [facility] [place] [address] * (ABNORMAL) Comprehensive metabolic panel (non-fasting) (05/19/2023 10:05 AM EST) Glucose 97 65 - 199 mg/dL [facility] Comment:Diabetes: >=200 mg/d L plus symptoms Blood Urea Nitrogen 17 8 - 18 mg/dL [facility] Creatinine 0.63(L) 0.70 - 1.20 mg/dL [facility] Sodium 140 135 - 145 mmol/L [facility] Potassium 3.6 3.5 - 5.0 mmol/L [facility] Comment: Please note: ??Patients with WBC >100,000 may have falsely elevated Potassium levels. ??For accurate Potassium quantification in these patients send serum separator tube (gold top) for subsequent determinations. ??Contact the Clinical Chemistry Laboratory if there are any questions. Chloride 107 98 - 107 mmol/L [facility] Carbon Dioxide 24 22 - 31 mmol/L [facility] Anion Gap 9 5 - 15 mmol/L [facility] Calcium 8.4(L) 8.5 - 10.5 mg/dL [facility] Protein, Total 7.0 6.1 - 8.0 g/dL [facility] Albumin 4.1 3.2 - 5.2 g/dL [facility] Aspartate Aminotransferase 14 0 - 30 unit/L [facility] Alanine Aminotransferase 19 0 - 30 unit/L [facility] Alkaline Phosphatase 76 35 - 105 unit/L [facility] Bilirubin, Total 0.3 0.2 - 1.3 mg/dL [facility] Est Glomerular Filtration Rate 112 >=60 mL/min/1. 73 m?? [facility] Comment: This patient's estimated GFR [...] and symptoms in addition to eGFR. Blood 05/19/2023 10:0 5 AM EST 05/19/2023 10:15 AM EST Narrative Resulting Agency Comment Spec In Lab Kavitha Rai MD CHEMISTRY ORDERABLES [facility] [place] [address] documented in this encounter Visit Diagnoses Diagnosis [...] EVERY 1 MIN PRN, Starting on Yvette 05/19/23 at 0958, Until Tue05/20/23 at 0436, Line Care, Flush pertains to all indwelling lines. Flush per protocol found in the job aid using the link provided on this medication record. Refer to Intravenous (IV) Job Aid: Adult Flushing & Catheter Care (7586) job aid for additional information regarding guidelines and administration., Routine Given 05/19/2023 10:10 AM EST 20 mLs documented in this encounter Care Teams Screen Cutter And Trimmer Relationship Specialty Start Date End Date Ryan Betancourt MD [address] [place] [phone] PCP - General Family Medicine 07/29/22 documented as of this encounter
--- OUTSIDE RECORDS SUMMARY | 2024-06-01 20:41 | XMS_ITS | Encounter Summary ---
Author Organization [facility] Address [facility] [place] [address] Care Team Providers Care University Dean Name Role Phone Ryan Betancourt MD Primary Care Provider [phone] Reason for Visit * Reason Comments Follow-up Encounter Details Date Type Department Care Team ([facility] st Contact Info) Description 04/28/2023 1:00 PM EST Office Visit [place] [address] Kavitha Rai MD [facility] [address] HEMATOLOGY [place] [address] Malignant neoplasm of overlapping sites of right breast in female, estrogen receptor negative Social History Tobacco Use Types Packs/Day Years Used Date Smoking Tobacco: Former Cigarettes 0.3 1 1 996 - 1997 Smokeless Tobacco: Former Alcohol Use Standard Drinks/Week [...] Sign Reading Time Taken Comments Blood Pressure 135/89 04/28/2023 12:43 PM EST Pulse 71 04/28/2023 12:43 PM EST Temperature 36.4 ??C (97.5 ??F) 04/28/2023 12:[address] Respiratory Rate 18 04/28/2023 12:43 PM EST Oxygen Saturation 99% 04/28/2023 12:43 PM EST Inhaled Oxygen Concentration - - Weight 103 kg (227 lb 1.2 oz) 04/28/2023 12:43 P M EST Height 164.4 cm (5' 4.72) 04/28/2023 12:[address] Body Mass Index 38.11 04/28/2023 12:43 PM EST documented in this encounter Progress Notes * Kavitha Rai MD - 04/28/2023 1:00 PM EST Patient ID: Soy San is [...] plan for every 6 weeks started 02/24/2023. 04/28/2023 On herceptin/perjeta (Phesgo) and xgeva q 6 weeks ( every other cycle of H/P). Today is first phesgo. Dull ache for toothache. At last visit was intermittent. Will see dentist just hasn't had time. Diarrhea again after last H/P infusion. 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 PET CT [...] 1st & 2nd week following infusion. Saw [facility] this morning who made recommendations [...] After THP #1, she went to a [employer], ate half a salad. This was fine. [...] right breast in the shower. Subsequently called [facility]ans wellness, seen that day. 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 Lab Results Component Value Date WBC 6.6 04/28/2023 HGB 13.8 04/28/2023 HCT 40.9 04/28/2023 MCV 80.2 (L) 04/28/2023 PLATELET 277 04/28/2023 Lab Results Component Value Date NEUTROABS 3.95 04/28/2023 Lab Results Component Value Date NA 141 04/28/2023 K 3.4 (L) 04/28/2023 CL 105 04/28/2023 CO2 26 04/28/2023 BUN 15 04/28/2023 CREATININE 0.70 04/28/2023 GLUCOSE 114 04/28/2023 CALCIUM 9.3 04/28/2023 ESTGFR 109 04/28/2023 Lab Results Component Value Date ALT 18 04/28/2023 AST 12 04/28/2023 ALKPHOS 84 04/28/2023 BILITOT 0.2 04/28/2023 ALBUMIN 4.1 04/28/2023 PROT 6.9 04/28/2023 CEA (ng/mL) Date Value 03/17/2023 2.1 01/13/2023 2.0 12/23/2022 2.8 11/11/2022 3.4 10/21/2022 2.8 CA 15-3 (unit/mL) Date Value 04/07/2023 28 (H) 03/17/2023 30 (H) 02/24/2023 30 (H) 02/03/2023 29 (H) 01/13/2023 31 (H) ] A/P: A/P: Soy San is a 42 y.o. 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 She is s/p a right breast and axillary biopsy. She has completed 6 cycles of THP (Ruthy regimen) given the high pre-test probability of her having metastatic disease. Bone & liver bx negative though these were obtained after s he began chemo due to inability to get an appointment. She has had an excellent clinical response to therapy and is on H/P monotherapy. She started xgeva 02/24/2023 and the plan is for administration q 6 weeks to sync up with phesgo. Breast Cancer: she's completed 6 cycles of THP, now on H&P. - Excellent clinical response with decreasing markers and resolved pain and breast mass. - Situation reviewed at breast tumor board 02/22/2023 and no enthusiasm for any primary breast surgery. - Continue H/P started on 12/23/2022. To start Phesgo today -Continue denosumab q6w -order signed for next dose which is 05/19. Last dose on 02/24/2023. Some confusion over q12 or 4 week regiment. Prefer q4 week however will sync up with phesgo and make it q6 week. -PET CT reviewed and currently LUIS MIGUEL 2. Hot flashes - Improving, - She is on gabapentin 300 mg daily prn - needs to see dentist. Will hold xgeva next time if not resolved. 3. 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 , Kim, labs Total time spent: 40 minutes with > 50% spend in discussion of above Future Appointments Date Time Provider Department Center 04/28/2023 2:30 PM [facility] [address] [place] [address] 05/19/2023 10:15 AM ACCESS ROOM [address] 05/19/2023 11:20 AM Kavitha Rai MD [facility] 05/19/2023 2:00 PM [facility] [address] [place] [address] 06/09/2023 12:15 PM ACCESS ROOM [facility] [address] [place] [address] 06/09/2023 1:20 PM Kavitha Rai MD [facility] 06/09/2023 2:30 PM [facility] IN[facility]USION THERAPY [facility] [address] [place] [address] 06/30/2023 12:00 PM ACCESS ROOM [facility] [address] [place] [address] 06/30/2023 1:00 PM Kavitha Rai MD [facility] 06/30/2023 2:00 PM [facility] IN[facility]ION TH[facility]AP[facility] documented in this encounter Plan of Treatment Upcoming Encounters Date Type Department Care Team (Late st Contact Info) Description 06/14/2024 8:00 AM EST Hospital Encounter [place] [address] Consuelo Joyce [facility] [place] [address] 06/14/2024 8:45 AM EST Appointment XRay at [address] [place] [address] Kavitha Rai MD [facility] DR HEMATOLOGY [place] [address] 06/14/2024 9:45 AM EST Appointment Hematology [place] [address] 06/14/2024 11:00 AM EST Appointment [place] [phone] Consuelo Joyce [facility] [place] [address] 06/14/2024 1:00 PM EST Office Visit [place]ology [place] [address] Kavitha Rai MD [facility] DR HEMATOLOGY [place] [address] 06/14/2024 2:30 PM EST Appointment [place] [address] 07/05/2024 10:30 AM EDT Appointment [place]ology [place] [address] 07/05/2024 11:30 AM EDT Office Visit Hematology and Oncology at [place] [phone] Consuelo Joyce APRN [facility] [place] [address] 07/05/2024 1:00 PM EDT Appointment Hematology and Oncology at [place] [phone] 08/16/2024 9:20 AM EDT Office Visit Ophthalmology at [place] [address] Luz Jose, OD [facility] [place] [address] 01/14/2025 8:30 AM EDT Office Visit Psychiatry and Behavioral Health at [place] [phone] Anna Oneill, PhD [facility] [place] [address] documented as of this encounter Visit Diagnoses Diagnosis Malignant neoplasm of overlapping sites of right breast in female, estrogen receptor negative documented in this encounter Care Teams University Dean Relationship Specialty Start Date End Date Ryan Betancourt MD [address] [place] [phone] PCP - General Family Medicine 07/29/22 documented as of this encounter
--- OUTSIDE RECORDS SUMMARY | 2024-06-01 20:41 | XMS_ITS | Encounter Summary ---
[place] [address] Care Team Providers Care Dredgemaster Name Role Phone Ryan Betancourt MD Primary Care Provider [phone] Reason for Visit * Treatment/Therapy Plan Authorization (Routine) - Closed Specialty Diagnoses / Procedures Referred By Ciaran lopez Referred To Contact Diagnoses Malignant neoplasm of overlapping sites of right breast in female, estrogen receptor negative Procedures -PHESGO (PERTUZUMAB TRASTUZUMAB & HYALURONIDASE-ZZXF) Kavitha Rai MD [facility] [address] [place] [address] [facility] Onc [address] [place] [address] Referral ID Status Reason Start Date Expiration Date Visits Re quested Visits Authorized [id number] Closed 04/07/2023 04/06/2024 1 106 Encounter Details Date Type Department Care Team (Latest Contact Info) Description 04/28/2023 10:43 AM EST - 04/28/2023 11:59 PM EST Hospital Encounter [place] [address] Malignant neoplasm of overlapping sites [...] Progress Notes * Fabi Gilbert RN - 04/28/2023 10:59 AM EST Patient Name: Soy San Patient Age: 42 y.o. Birthdate: 1980 Admit date: 04/28/2023 Attending Physician: No att. providers found Access visit. See MAR and/or flowsheet. documented in this encounter Plan of Treatment Upcoming Encounters Date Type Department Care Team (Late st Contact Info) Description 06/14/2024 8:00 AM EST Hospital Encounter [place] [phone] Consuelo Joyce APRN [facility] [place] [address] 06/14/2024 8:45 AM EST Appointment XRay at [address] [place] [phone] Kavitha Rai MD [facility] [place] [address] 06/14/2024 9:45 AM EST Appointment Hematology and Oncology at [place] [address] 06/14/2024 11:00 AM EST Appointment Nuclear Medicine at [address] Conseulo Joyce APRN [facility] [place] [address] 06/14/2024 1:00 PM EST Office Visit Hematology and Oncology at [address] Kavitha Rai MD [facility] [address] [place] [address] 06/14/2024 2:30 PM EST Appointment Hematology and Oncology at [place] [phone] 07/05/2024 10:30 AM EDT Appointment Hematology and Oncology at [place] [address] 07/05/2024 11:30 AM EDT Office Visit Hematology and Oncology at [place] [phone] Consuelo Joyce [facility] [place] [place] [address] 07/05/2024 1:00 PM EDT Appointment Hematology and Oncology at [place] [phone] 08/16/2024 9:20 AM EDT Office Visit Ophthalmology at [place] [phone] Luz Jose OD [facility] [place] [address] 01/14/2025 8:30 AM EDT Office Visit Psychiatry and Behavioral Health at [facility] [place] [address] Anna Oneill, PhD [facility] [address] documented as of this encounter Procedures Procedure Name Priority Date/Time Associated Diagnosis Comments HEMOGRAM STAT 04/28/2023 10:55 AM EST Malignant neoplasm of overlapping sites of right breast in female, estrogen receptor negative DIFFERENTIAL, AUTOMATED STAT 04/28/2023 10:55 AM EST Malignant neoplasm of overlapping sites of right breast in female, estrogen receptor negative CANCER ANTIGEN 15-3 STAT 04/28/2023 1 0:55 AM EST Malignant neoplasm of overlapping sites of right breast in female, estrogen receptor negative CBC (WITH DIFF) STAT 04/28/2023 10:55 AM EST Malignant neoplasm of overlapping sites of right breast in female, estrogen receptor negative COMPREHENSIVE METABOLIC PANEL STAT 04/28/2023 10:55 AM EST Malignant neoplasm of overlapping sites of right breast in female, estrogen receptor negative documented in this encounter Results * (ABNORMAL) Differential, Automated (04/28/2023 10:55 AM EST) Neutrophil % 59.7 % [facility] Neutrophil Absolute 3.95 1.70 - 6.10 x10(3)/mc L [facility] Lymph % 33.9 % [facility] Lymphocytes Abs 2.2 0.9 - 3.2 x10(3)/mc L [facility] Monocyte % 3.6 % [facility] Monocyte Abs 0.2(L) 0.3 - 0.9 x10(3)/mc L [facility] Eos % 2.3 % [facility] Eosinophils Abs 0.2 0.0 - 0.4 x10(3)/mc L [facility] Basophil % 0.3 % [facility] Baso Absolute 0.0 0.0 - 0.1 x10(3)/mc L [facility] Immature Gran % 0.20 % [facility] Comment: Immature granulocytes(IG's)percentage and absolute count will include metamyelocytes, myelocytes, and promyelocytes. Blood smears from CBCs yielding IG's will be scanned manually for concordance. If this scan disagrees with the automated IG or if promyelocytes are noted, a manual differential will be performed. Immature Gran Absolute 0.01 0.00 - 0.04 x10(3)/mc L [facility] Blood 04/28/2023 10:5 5 AM EST 04/28/2023 11:07 AM EST Narrative Resulting Agency Comment Spec In Lab Kavitha Rai MD HEMATOLOGY ORDERABLE S [facility] [address] * (ABNORMAL) Hemogram (04/28/2023 10:55 AM EST) White Blood Cell 6.6 4.0 - 9.5 x10(3)/mc L [facility] Red Blood Cell 5.10 4.00 - 5.21 x10(6)/ L [facility] Hemoglobin 13.8 11.7 - 15.5 g/dL [facility] Hematocrit 40.9 35.7 - 45.8 % [facility] Mean Cell Volume 80.2(L) 82.6 - 94.4 fL [facility] Mean Cell Hemoglobin 27.1 27.1 - 32.0 pg [facility] Mean Cell Hemoglobin Concentration 33.7 31.7 - 35.0 g/dL [facility] Platelet 277 145 - 357 x10(3)/mc L [facility] RDW Standard Deviation 41.0 37.0 - 46.0 fL [facility] RDW coefficient of variation 14.1 11.5 - 14.1 % [facility] Mean Platelet Volume 9.8 7.6 - 12.9 fL [facility] NRBC% auto 0.0 % [facility] NRBC Absolute 0.000 0.000 - 0.000 x10(3)/ L [facility] Blood 04/28/2023 10:5 5 AM EST 04/28/2023 11:07 AM EST Narrative Resulting Agency Comment Spec In Lab Kavitha Rai MD HEMATOLOGY ORDERABLE S Performing Organization Address [facility] Co de Phone Number [facility] [address] * (ABNORMAL) Cancer antigen 15-3 (04/28/2023 10:55 AM EST) CA 15-3 29(H) <=25 unit/mL [facility] Comment: This result was generated using a Deepak Dequan immunoassay. ??Results obtained from other methods or manufacturers cannot be used interchangeably with this method. Blood 04/28/2023 10:5 5 AM EST 04/28/2023 11:07 AM EST Narrative Resulting Agency Comment Spec In Lab Kavitha Rai MD CHEMISTRY ORDERABLES Performing Organization Address [facility] Co de Phone Number [facility] [address] * (ABNORMAL) Comprehensive metabolic panel (non-fasting) (04/28/2023 10:55 AM EST) Glucose 114 65 - 199 mg/dL [facility] Comment:Diabetes: >=200 mg/d L plus symptoms Blood Urea Nitrogen 15 8 - 18 mg/dL [facility] Creatinine 0.70 0.70 - 1.20 mg/dL [facility] Sodium 141 135 - 145 mmol/L [facility] Potassium 3.4(L) 3.5 - 5.0 mmol/L [facility] Comment: Please note: ??Patients with WBC >100,000 may have falsely elevated Potassium levels. ??For accurate Potassium quantification in these patients send serum separator tube (gold top) for subsequent determinations. ??Contact the Clinical Chemistry Laboratory if there are any questions. Chloride 105 98 - 107 mmol/L [facility] Carbon Dioxide 26 22 - 31 mmol/L [facility] Anion Gap 10 5 - 15 mmol/L [facility] Calcium 9.3 8.5 - 10.5 mg/dL [facility] Protein, Total 6.9 6.1 - 8.0 g/dL [facility] Albumin 4.1 3.2 - 5.2 g/dL [facility] Aspartate Aminotransferase 12 0 - 30 unit/L [facility] Alanine Aminotransferase 18 0 - 30 unit/L [facility] Alkaline Phosphatase 84 35 - 105 unit/L [facility] Bilirubin, Total 0.2 0.2 - 1.3 mg/dL [facility] Est Glomerular Filtration Rate 109 >=60 mL/min/1. 73 m?? [facility] Comment: This patient's estimated GFR was [...] and symptoms in addition to eGFR. Blood 04/28/2023 10:5 5 AM EST 04/28/2023 11:07 AM EST Narrative Resulting Agency Comment Spec In Lab Kavitha Rai MD CHEMISTRY ORDERABLES [facility] [place] [address] documented in this encounter Visit Diagnoses Diagnosis [...] EVERY 1 MIN PRN, Starting on Yvette 04/28/23 at 1046, Until Tue04/29/23 at 0435, Line Care, Flush pertains to all indwelling lines. Flush per protocol found in the job aid using the link provided on this medication record. Refer to Intravenous (IV) Job Aid: Adult Flushing & Catheter Care (9035) job aid for additional information regarding guidelines and administration., Routine Given 04/28/2023 10:58 AM EST 20 mLs documented in this encounter Care Teams Dredgemaster Relationship Specialty Start Date End Date Ryan Betancourt MD [address] [place] [phone] PCP - General Family Medicine 07/29/22 documented as of this encounter
--- OUTSIDE RECORDS SUMMARY | 2024-06-01 20:41 | XMS_ITS | Encounter Summary ---
[place] [address] Care Team Providers Care Senior Software Development Engineer Name Role Phone Ryan Betancourt MD Primary Care Provider [phone] Reason for Visit * Treatment/Therapy Plan Authorization (Routine) - Closed Specialty Diagnoses / Procedures Referred By Contac t Referred To Contact Diagnoses Malignant neoplasm of overlapping sites of right breast in female, estrogen receptor negative Procedures TC PERTUZUMAB, 1 MG, INJECTION [id number] (TRASTUZUMAB-ANNS) Dian Lora PA [facility] Hem Onc [address] [place] [address] Referral ID Status Reason Start Date Expiration Date Visits Re quested Visits Authorized [id number] Closed 12/22/2022 12/22/2023 1 105 Encounter Details Date Type Department Care Team (Latest Contact Info) Description 04/07/2023 7:23 AM EST - 04/07/2023 7:40 AM EST Hospital Encounter Hematology [place] [address] Malignant neoplasm of overlapping sites [...] Progress Notes * Fabi Gilbert RN - 04/07/2023 7:39 AM EST Patient Name: Soy San Patient Age: 42 y.o. Birthdate: 1980 Admit date: 04/07/2023 Attending Physician: No att. providers found Access visit. See MAR and/or flowsheet. documented in this encounter Plan of Treatment Upcoming Encounters Date Type Department Care Team (Late st Contact Info) Description 06/14/2024 8:00 AM EST Hospital Encounter [place] [address] Consuelo Joyce APRN [facility] [address] MEDICAL ONCOLOGY [place], [place] [phone] 06/14/2024 8:45 AM EST Appointment XRay at [address] [place] [address] Kavitha Rai MD [facility] DR HEMATOLOGY AND ONCOLOGY [place], [place] [phone] 06/14/2024 9:45 AM EST Appointment Hematology [place] [address] 06/14/2024 11:00 AM EST Appointment Nuclear Medicine at [place] [address] Consuelo Joyce APRN [facility] [place] [address] 06/14/2024 1:00 PM EST Office Visit Hematology and Oncology at [place] [address] Kavitha Rai MD [facility] [address] [place] [address] 06/14/2024 2:30 PM EST Appointment Hematology and Oncology at [place] [address] 07/05/2024 10:30 AM EDT Appointment Hematology and Oncology at [place] [address] 07/05/2024 11:30 AM EDT Office Visit Hematology and Oncology at [place] [address] Consuelo Joyce PRE PRESS OPERATOR [facility] [place] [address] 07/05/2024 1:00 PM EDT Appointment Hematology and Oncology at [address] 08/16/2024 9:20 AM EDT Office Visit Ophthalmology at [place] [phone] Luz Jose OD [facility] [place] [address] 01/14/2025 8:30 AM EDT Office Visit Psychiatry and Behavioral Health at [place] [phone] Anna Oneill, PhD [facility] [place] [address] documented as of this encounter Procedures Procedure Name Priority Date/Time Associated Diagnosis Comments HEMOGRAM STAT 04/07/2023 7:35 AM EST Malignant neoplasm of overlapping sites of right breast in female, estrogen receptor negative DIFFERENTIAL, AUTOMATED STAT 04/07/2023 7:35 AM EST Malignant neoplasm of overlapping sites of right breast in female, estrogen receptor negative CANCER ANTIGEN 15-3 STAT 04/07/2023 7 :35 AM EST Malignant neoplasm of overlapping sites of right breast in female, estrogen receptor negative CBC (WITH DIFF) STAT 04/07/2023 7:35 AM EST Malignant neoplasm of overlapping sites of right breast in female, estrogen receptor negative COMPREHENSIVE METABOLIC PANEL STAT 04/07/2023 7:35 AM EST Malignant neoplasm of overlapping sites of right breast in female, estrogen receptor negative documented in this encounter Results * (ABNORMAL) Differential, Automated (04/07/2023 7:35 AM EST) Neutrophil % 62.5 % [facility] Neutrophil Absolute 3.47 1.70 - 6.10 x10(3)/mc L [facility] Lymph % 30.6 % [facility] Lymphocytes Abs 1.7 0.9 - 3.2 x10(3)/mc L [facility] Monocyte % 3.4 % [facility] Monocyte Abs 0.2(L) 0.3 - 0.9 x10(3)/mc L [facility] Eos % 3.1 % [facility] Eosinophils Abs 0.2 0.0 - 0.4 x10(3)/mc L [facility] Basophil % 0.2 % [facility] Baso Absolute 0.0 0.0 - 0.1 x10(3)/mc L [facility] Immature Gran % 0.20 % [facility] Comment: Immature granulocytes(IG's)percentage and absolute count will include metamyelocytes, myelocytes, and promyelocytes. Blood smears from CBCs yielding IG's will be scanned manually for concordance. If this scan disagrees with the automated IG or if promyelocytes are noted, a manual differential will be performed. Immature Gran Absolute 0.01 0.00 - 0.04 x10(3)/mc L [facility] Blood 04/07/2023 7:35 AM EST 04/07/2023 7:49 AM EST Narrative Resulting Agency Comment Spec In Lab Kavitha Rai MD HEMATOLOGY ORDERABLE S [facility] [place] [address] * (ABNORMAL) Hemogram (04/07/2023 7:35 AM EST) White Blood Cell 5.6 4.0 - 9.5 x10(3)/[facility] Red Blood Cell 5.07 4.00 - 5.21 x10(6)/[facility] Hemoglobin 13.7 11.7 - 15.5 g/dL [facility] Hematocrit 41.4 35.7 - 45.8 % [facility] Mean Cell Volume 81.7(L) 82.6 - 94.4 fL [facility] Mean Cell Hemoglobin 27.0(L) 27.1 - 32.0 pg [facility] Mean Cell Hemoglobin Concentration 33.1 31.7 - 35.0 g/dL [facility] Platelet 264 145 - 357 x10(3)/ L [facility] RDW Standard Deviation 41.0 37.0 - 46.0 fL [facility] RDW coefficient of variation 14.0 11.5 - 14.1 % [facility] Mean Platelet Volume 10.4 7.6 - 12.9 fL [facility] NRBC% auto 0.0 % [facility] NRBC Absolute 0.000 0.000 - 0.000 x10(3)/ L [facility] Blood 04/07/2023 7:35 AM EST 04/07/2023 7:49 AM EST Narrative Resulting Agency Comment Spec In Lab Kavitha Rai MD HEMATOLOGY ORDERABLE S [facility] [place] [address] * (ABNORMAL) Comprehensive metabolic panel (non-fasting) (04/07/2023 7:35 AM EST) Glucose 109 65 - 199 mg/dL [facility] Comment:Diabetes: >=200 mg/d L plus symptoms Blood Urea Nitrogen 16 8 - 18 mg/dL [facility] Creatinine 0.65(L) 0.70 - 1.20 mg/dL [facility] Sodium 140 135 - 145 mmol/L [facility] Potassium 3.7 3.5 - 5.0 mmol/L [facility] Comment: Please note: ??Patients with WBC >100,000 may have falsely elevated Potassium levels. ??For accurate Potassium quantification in these patients send serum separator tube (gold top) for subsequent determinations. ??Contact the Clinical Chemistry Laboratory if there are any questions. Chloride 107 98 - 107 mmol/L [facility] Carbon Dioxide 24 22 - 31 mmol/L [facility] Anion Gap 9 5 - 15 mmol/L [facility] Calcium 8.8 8.5 - 10.5 mg/dL [facility] Protein, Total 6.8 6.1 - 8.0 g/dL [facility] Albumin 4.2 3.2 - 5.2 g/dL [facility] Aspartate Aminotransferase 14 0 - 30 unit/L [facility] Alanine Aminotransferase 20 0 - 30 unit/L [facility] Alkaline Phosphatase 98 35 - 105 unit/L [facility] Bilirubin, Total 0.3 0.2 - 1.3 mg/dL [facility] [...] and symptoms in addition to eGFR. Blood 04/07/2023 7:35 AM EST 04/07/2023 7:49 AM EST Narrative Resulting Agency Comment Spec In Lab Kavitha Rai MD CHEMISTRY ORDERABLES Performing Organization Address City/[facility]/ZIP Co de Phone Number [facility] [place] [address] * (ABNORMAL) Cancer antigen 15-3 (04/07/2023 7:35 AM EST) CA 15-3 28(H) <=25 unit/mL [facility] Comment: This result was generated using a Dimmias immunoassay. ??Results obtained from other methods or manufacturers cannot be used interchangeably with this method. Blood 04/07/2023 7:35 AM EST 04/07/2023 7:49 AM EST Narrative Resulting Agency Comment Spec In Lab Kavitha Rai MD CHEMISTRY ORDERABLES Performing Organization Address City/[facility] Co de Phone Number [facility] [place] [address] documented in this encounter Visit Diagnoses Diagnosis [...] EVERY 1 MIN PRN, Starting on Yvette 04/07/23 at 0727, Until Yvette 04/07/23 at 1707, Line Care, Flush pertains to all indwelling lines. Flush per protocol found in the job aid using the link provided on this medication record. Refer to Intravenous (IV) Job Aid: Adult Flushing & Catheter Care (1128) job aid for additional information regarding guidelines and administration., Routine Given 04/07/2023 7:39 AM EST 20 mLs documented in this encounter Care Teams Senior Software Development Engineer Relationship Specialty Start Date End Date Ryan Betancourt MD [address] [place] [phone] PCP - General Family Medicine 07/29/22 documented as of this encounter
--- OUTSIDE RECORDS SUMMARY | 2024-06-01 20:41 | XMS_ITS | Encounter Summary ---
[place] [address] Care Team Providers Care Learning Developer Name Role Phone Ryan Betancourt MD Primary Care Provider [phone] Reason for Visit * Reason Comments Breast Cancer * Treatment/Therapy Plan Authorization (Routine) - Closed Specialty Diagnoses / Procedures Referred By Ciaran lopez Referred To Contact Diagnoses Malignant neoplasm of overlapping sites of right breast in female, estrogen receptor negative Procedures -PHESGO (PERTUZUMAB TRASTUZUMAB & HYALURONIDASE-ZZXF) Kavitha Rai MD [facility] [address] [place] [address] [facility] Hem Onc [address] [place] [address] Referral ID Status Reason Start Date Expiration Date Visits Re quested Visits Authorized [id number] Closed 04/07/2023 04/06/2024 1 106 Encounter Details Date Type Department Care Team (Latest Contact Info) Description 04/28/2023 10:43 AM EST - 04/28/2023 11:59 PM EST Hospital Encounter Hematology [place] [address] Malignant neoplasm of overlapping sites [...] as of this encounter Progress Notes * Sweetie Potts RN - 04/28/2023 2:25 PM EST Patient Name: Soy San Patient Age: 42 y.o. Birthdate: 1980 Admit date: 04/28/2023 Attending Physician: No att. providers found TIME TREATMENT STARTED: 1425 TIME TREATMENT ENDED: 152 Soy San, 42 y.o. female with diagnosis of breast cancer is here for chemotherapy injection of Phesgo to L outer thigh PROTOCOL: n/a CYCLE: 1 WEEK: n/a DAY: 1 S: Pt. offers no complaints at this time. O: Chemotherapy orders independently verified for correct drug name, route and dosage per patient'sheight, weight and BSA by Sweetie Potts RN and onsite pharmacist REACTIONS (DESCRIPTION, TIME, INTERVENTION AND EFFECTIVENESS) None; pt. Stayed for 30 minute post injection observation. A: Pt. Tolerated treatment well. Soy San confirms that all questions and issues have been addressed. P: Return to clinic as advised. documented in this encounter Plan of Treatment Upcoming Encounters Date Type Department Care Team (Late st Contact Info) Description 06/14/2024 8:00 AM EST Hospital Encounter [place] [address] Consuelo Joyce APRN [facility] [place] [address] 06/14/2024 8:45 AM EST Appointment XRay at [address] [place] [address] Kavitha Rai MD [facility] [address] [place] [address] 06/14/2024 9:45 AM EST Appointment Hematology [place] [address] 06/14/2024 11:00 AM EST Appointment [place] [address] Consuelo Joyce [facility] [place] [address] 06/14/2024 1:00 PM EST Office Visit Hematology [place] [address] Kavitha Rai MD [facility] [address] [place] [address] 06/14/2024 2:30 PM EST Appointment Hematology [place] [address] 07/05/2024 10:30 AM EDT Appointment Hematology [place] [address] 07/05/2024 11:30 AM EDT Office Visit Hematology [place] [address] Consuelo Joyce APRN [facility] [place] [address] 07/05/2024 1:00 PM EDT Appointment Hematology and Oncology at [place] [phone] 08/16/2024 9:20 AM EDT Office [place] [address] Luz Jose, OD [facility] [place] [address] 01/14/2025 8:30 AM EDT Office Visit Psychiatry and Behavioral Health at [place] [phone] Anna Oneill, PhD [facility] OPHTHALMOLOGY [place], [place] [phone] documented as of this encounter Results * (ABNORMAL) Cancer antigen 15-3 (04/28/2023 10:55 AM EST) Pathologist [facility] [place] 15-3 29(H) <=25 unit/mL [facility] Comment: This result was generated using a Deepak Dequan immunoassay. ??Results obtained from other methods or manufacturers cannot be used interchangeably with this method. Blood 04/28/2023 10:5 5 AM EST 04/28/2023 11:07 AM EST Narrative Resulting Agency Comment Spec In Lab Kavitha Rai MD CHEMISTRY ORDERABLES [facility] [place] [address] * (ABNORMAL) Comprehensive metabolic panel (non-fasting) (04/28/2023 10:55 AM EST) Glucose 114 65 - 199 mg/dL [facility] Comment:Diabetes: >=200 mg/d L plus symptoms Blood Urea Nitrogen 15 8 - 18 mg/dL [facility] Creatinine 0.70 0.70 - 1.20 mg/dL [facility] Sodium 141 135 - 145 mmol/L [facility] Potassium 3.4(L) 3.5 - 5.0 mmol/L [facility] Comment: Please note: ??Patients with WBC >100,000 may have falsely elevated Potassium levels. ??For accurate Potassium quantification in these patients send serum separator tube (gold top) for subsequent determinations. ??Contact the Clinical Chemistry Laboratory if there are any questions. Chloride 105 98 - 107 mmol/L [facility] Carbon Dioxide 26 22 - 31 mmol/L [facility] Anion Gap 10 5 - 15 mmol/L [facility] Calcium 9.3 8.5 - 10.5 mg/dL [facility] Protein, Total 6.9 6.1 - 8.0 g/dL [facility] Albumin 4.1 3.2 - 5.2 g/dL [facility] Aspartate Aminotransferase 12 0 - 30 unit/L [facility] Alanine Aminotransferase 18 0 - 30 unit/L [facility] Alkaline Phosphatase 84 35 - 105 unit/L [facility] Bilirubin, Total 0.2 0.2 - 1.3 mg/dL [facility] Est Glomerular Filtration Rate 109 >=60 mL/min/1. 73 m?? [facility] Comment: This patient's estimated GFR was [...] In Lab Kavitha Rai MD CHEMISTRY ORDERABLES [facility] [place] [address] documented in this encounter Visit Diagnoses Diagnosis [...] 5 Minutes, ONCE, 1 dose, On Yvette 04/28/23 at 1515, Observe patients for infusion-related reactions for a minimum of 30 minutes after initial dose of PERTuzumab, TRASTuzumab, and hyaluronidase-zzxf. Alternate [...] being given as an outpatient? Yes Given 04/28/2023 2:46 PM EST 1,200 mg 20-Other (document in comment section) documented in this encounter Care Teams Learning Developer Relationship Specialty Start Date End Date Ryan Betancourt MD [address] [place] [phone] PCP - General Family Medicine 07/29/22 documented as of this encounter
--- OUTSIDE RECORDS SUMMARY | 2024-06-01 20:41 | XMS_ITS | Encounter Summary ---
Author Organization [facility] Address [facility] [place] [address] Care Team Providers Care Repairer Helper Name Role Phone Ryan Betancourt MD Primary Care Provider [phone] Reason for Visit * Consultation (Routine) - Closed Specialty Diagnoses / Procedures Referred By Ciaran lopez Referred To Contact Dermatology Diagnoses Brittle nails Toxic effect of chemotherapy Netta Salgado MD [facility] [address] HEMATOLOGY/[place] [address] [facility] Dermatology [address] [place] [address] Referral ID Status Reason Start Date Expiration Date V isits Requested Visits Authorized [id number] Closed Consult, Test & Treat 02/03/2023 02/03/2024 1 1 Encounter Details Date Type Department Care Team ([facility] Contact Info) Description 03/30/2023 8:00 AM EST Office Visit Dermatology at [address] [place] [address] Gomez Coely MD [address] [place] [address] Nail abnormalities Social History Tobacco Use Types Packs/Day Years [...] as of this encounter Progress Notes * Gomez Coley MD - 03/30/2023 8:00 AM EST Images from the original note were not included. DEPARTMENT OF DERMATOLOGY Medical Dermatology Clinic Provider: Gomez Coley MD Patient's preferred name Soo Preferred contact [...] Illness: Soy San is a 42 y.o. Patient returns to clinic today for brittle nails that have been present for about 2 months, nails are painful. Toenails are very painful and bothersome as well as fingernails. - not treating with anything Last visit at Dermatology: 12/23/2022 Last visit with this provider: Visit date not found Medications: Reviewed in eD-H Allergies: Reviewed in eD-H Skin Examination: Focused skin examination of the fingernails and toenails was normal with the exception of the findings below. Assessment/Plan #. Chemotherapy induced nail changes - Affecting multiple nails, there are horizontal bands of apparent leukonychia. In addition, multiple nail plates with textural changes. - Patient expressed she ended chemotherapy treatment in the end of November 2022, and started to notice changes in her fingernails and toenails in late December. - Discussed there is no treatments necessary for this condition and that it will naturally resolve,typically 6 - 12 months after chemotherapy ending. - Encourages patient to follow up if the symptoms seem to get worse Other: N/A RTC: PRN []Note routed to escrow secretary []Recall placed in scheduling system []Appointment scheduled at checkout Scribe attestation: ISAS King has performed the documentation for this encounter in the presence of and acting as a scribe for Gomez Coley MD. I performed the above scribed service and agree with the accuracy of the documentation in this encounter. Reviewed and signed by: Gomez Coley MD Dermatology [facility] Patient seen and evaluated with staff lead burner supervisor: Eduarda Murphy MD Dermatology [facility] * Eduarda Murphy MD - 03/30/2023 8:00 AM EST I directly supervised the Dermatology resident during [...] resident's note. EDUARDA MURPHY MD Staff Physician documented in this encounter Plan of Treatment Upcoming Encounters Date Type Department Care Team (Late st Contact Info) Description 06/14/2024 8:00 AM EST Hospital Encounter Nuclear Medicine at [place] [phone] Consuelo Joyce [facility] [place] [address] 06/14/2024 8:45 AM EST Appointment XRay at [address] [place] [address] Kavitha Rai MD [facility] [address] [place]OLOGY [place] [address] 06/14/2024 9:45 AM EST Appointment Hematology [place] [phone] 06/14/2024 11:00 AM EST Appointment [place] [phone] Consuelo Joyce [facility] [place] [address] 06/14/2024 1:00 PM EST Office Visit Hematology [place] [phone] Kavitha Rai MD [facility] [address] [place]OLOGY [place] [address] 06/14/2024 2:30 PM EST Appointment Hematology and Oncology at [place] [address] 07/05/2024 10:30 AM EDT Appointment Hematology and Oncology at [place] [address] 07/05/2024 11:30 AM EDT Office Visit Hematology and Oncology at [place] [address] Consuelo Joyce APRN [facility] [place] [address] 07/05/2024 1:00 PM EDT Appointment Hematology and Oncology at [place] [address] 08/16/2024 9:20 AM EDT Office Visit Ophthalmology at [place] [address] Luz Jose, [facility] [place] [address] 01/14/2025 8:30 AM EDT Office Visit Psychiatry and Behavioral Health at [place] [address] Anna Oneill, PhD [facility] [place] [address] Scheduled Referrals Name Type Priority Associated Diagnoses Orde r Schedule Referral to Dermatology Outpatient Referral Routine Brittle nails Toxic effect of chemotherapy Ordered: 02/03/2023 documented as of this encounter Visit Diagnoses Diagnosis Nail abnormalities Unspecified disease of nail documented in this encounter Care Teams Repairer Helper Relationship Specialty Start Date End Date Ryan Betancourt MD [address] [place] [phone] PCP - General Family Medicine 07/29/22 documented as of this encounter
--- OUTSIDE RECORDS SUMMARY | 2024-06-01 20:41 | XMS_ITS | Encounter Summary ---
Author Organization [facility] Address [facility] [place] [address] Care Team Providers Care Loin Puller Name Role Phone Ryan Betancourt MD Primary Care Provider [phone] Encounter Details Date Type Department Care Team (Latest Contact Info) Description 05/19/2023 Travel Social History Tobacco Use Types Packs/Day [...] AM EST Hospital Encounter [place] [address] Consuelo Joyce APRN [facility] [place] [address] 06/14/2024 8:45 AM EST Appointment XRay at [address] [place] [address] Kavitha Rai MD [facility] [place] [address] 06/14/2024 9:45 AM EST Appointment Hematology [place] [address] 06/14/2024 11:00 AM EST Appointment [place] [address] Consuelo Joyce APRN [facility] [place] [address] 06/14/2024 1:00 PM EST Office Visit Hematology [place] [address] Kavitha Ria MD [facility] [place] [address] 06/14/2024 2:30 PM EST Appointment Hematology [place] [address] 07/05/2024 10:30 AM EDT Appointment Hematology and Oncology at [place] [phone] 07/05/2024 11:30 AM EDT Office Visit Hematology and Oncology at [place] [phone] Consuelo Joyce APRN [facility] [place] [address] 07/05/2024 1:00 PM EDT Appointment Hematology and Oncology at [place] [address] 08/16/2024 9:20 AM EDT Office Visit Ophthalmology at [place] [phone] Luz Jose, OD [facility] [place] [address] 01/14/2025 8:30 AM EDT Office Visit Psychiatry and Behavioral Health at [place] [address] Anna Oneill, PhD [facility] [place] [address] documented as of this encounter Visit Diagnoses Not on filedocumented in this encounter Care Teams Loin Puller Relationship Specialty Start Date End Date Ryan Betancourt MD [address] [place] [phone] PCP - General Family Medicine 07/29/22 documented as of this encounter
--- OUTSIDE RECORDS SUMMARY | 2024-06-01 20:41 | XMS_ITS | Encounter Summary ---
Author Organization [facility] [place] [address] Care Team Providers Care International Trade Compliance Manager Name Role Phone Ryan Betancourt MD Primary Care Provider [phone] Encounter Details Date Type Department Care Team (Latest Contact Info) Description 03/17/2023 11:40 AM EST - 03/17/2023 11:59 PM EST Hospital Encounter Hematology [place] [phone] Malignant neoplasm of overlapping sites of right [...] Progress Notes * Samantha Collado RN - 03/17/2023 12:07 PM EST Patient Name: Soy San Patient Age: 42 y.o. Birthdate: 1980 Admit date: 03/17/2023 Attending Physician: No att. providers found Access visit. See MAR and/or flowsheet. documented in this encounter Plan of Treatment Upcoming Encounters Date Type Department Care Team (Late st Contact Info) Description 06/14/2024 8:00 AM EST Hospital En[place] [address] Consuelo Joyce APRN [facility] [place] [address] 06/14/2024 8:45 AM EST Appointment XRay at [address] [place] [address] Kavitha Rai MD [facility] DR HEMATOLOGY [place] [address] 06/14/2024 9:45 AM EST Appointment Hematology [place] [address] 06/14/2024 11:00 AM EST Appointment [place] [address] Consuelo Joyce [facility] [place] [address] 06/14/2024 1:00 PM EST Office Visit Hematology [place] [phone] Kavitha Rai MD [facility] DR [place] [address] 06/14/2024 2:30 PM EST Appointment Hematology and Oncology at [place] [phone] 07/05/2024 10:30 AM EDT Appointment Hematology and Oncology at [place] [address] 07/05/2024 11:30 AM EDT Office Visit Hematology and Oncology at [place] [address] Consuelo Joyce APRN [facility] [place] [address] 07/05/2024 1:00 PM EDT Appointment Hematology [place] [address] 08/16/2024 9:20 AM EDT Office Visit Ophthalmology at [place] [address] Luz Jose, CARSON [facility] [place] [address] 01/14/2025 8:30 AM EDT Office Visit Psychiatry and Behavioral Health at [place] [phone] Anna Oneill, PhD [facility] [place] [address] documented as of this encounter Procedures Procedure Name Priority Date/Time Associated Diagnosis Comments HEMOGRAM STAT 03/17/2023 11:56 AM EST Malignant neoplasm of overlapping sites of right breast in female, estrogen receptor negative DIFFERENTIAL, AUTOMATED STAT 03/17/2023 11:56 AM EST Malignant neoplasm of overlapping sites of right breast in female, estrogen receptor negative CANCER ANTIGEN 15-3 STAT 03/17/2023 1 1:56 AM EST Malignant neoplasm of overlapping sites of right breast in female, estrogen receptor negative CBC (WITH DIFF) STAT 03/17/2023 11:56 AM EST Malignant neoplasm of overlapping sites of right breast in female, estrogen receptor negative CEA Routine 03/17/2023 11:56 AM EST Malignant neoplasm of overlapping sites of right breast in female, estrogen receptor negative COMPREHENSIVE METABOLIC PANEL STAT 03/17/2023 11:56 AM EST Malignant neoplasm of overlapping sites of right breast in female, estrogen receptor negative documented in this encounter Results * (ABNORMAL) Differential, Automated (03/17/2023 11:56 AM EST) Neutrophil % 58.7 % [facility] Neutrophil Absolute 3.12 1.70 - 6.10 x10(3)/mc L [facility] Lymph % 34.5 % [facility] Lymphocytes Abs 1.8 0.9 - 3.2 x10(3)/mc L [facility] Monocyte % 4.3 % [facility] Monocyte Abs 0.2(L) 0.3 - 0.9 x10(3)/mc L [facility] Eos % 2.3 % [facility] Eosinophils Abs 0.1 0.0 - 0.4 x10(3)/mc L [facility] Basophil % 0.2 % [facility] Baso Absolute 0.0 0.0 - 0.1 x10(3)/mc L [facility] Immature Gran % 0.00 % [facility] Comment: Immature granulocytes(IG's)percentage and absolute count will include metamyelocytes, myelocytes, and promyelocytes. Blood smears from CBCs yielding IG's will be scanned manually for concordance. If this scan disagrees with the automated IG or if promyelocytes are noted, a manual differential will be performed. Immature Gran Absolute 0.00 0.00 - 0.04 x10(3)/mc L [facility] Blood 03/17/2023 11:5 6 AM EST 03/17/2023 12:06 PM EST Narrative Resulting Agency Comment Spec In Lab Kavitha Rai MD HEMATOLOGY ORDERABLE S [facility] [address] * (ABNORMAL) Hemogram (03/17/2023 11:56 AM EST) White Blood Cell 5.3 4.0 - 9.5 x10(3)/mc L [facility] Red Blood Cell 4.99 4.00 - 5.21 x10(6)/mc L [facility] Hemoglobin 13.8 11.7 - 15.5 g/dL [facility] Hematocrit 40.8 35.7 - 45.8 % [facility] Mean Cell Volume 81.8(L) 82.6 - 94.4 fL [facility] Mean Cell Hemoglobin 27.7 27.1 - 32.0 pg [facility] Mean Cell Hemoglobin Concentration 33.8 31.7 - 35.0 g/dL [facility] Platelet 264 145 - 357 x10(3)/mc L [facility] RDW Standard Deviation 40.0 37.0 - 46.0 fL [facility] RDW coefficient of variation 13.5 11.5 - 14.1 % [facility] Mean Platelet Volume 10.4 7.6 - 12.9 fL [facility] NRBC% auto 0.0 % [facility] NRBC Absolute 0.000 0.000 - 0.000 x10(3)/mc L [facility] Blood 03/17/2023 11:5 6 AM EST 03/17/2023 12:06 PM EST Narrative Resulting Agency Comment Spec In Lab Kavitha Rai MD HEMATOLOGY ORDERABLE S [facility] [place] [address] * (ABNORMAL) Cancer antigen 15-3 (03/17/2023 11:56 AM EST) CA 15-3 30(H) <=25 unit/mL [facility] Comment: This result was generated using a Deepak Dequan immunoassay. ??Results obtained from other methods or manufacturers cannot be used interchangeably with this method. Blood 03/17/2023 11:5 6 AM EST 03/17/2023 12:06 PM EST Narrative Resulting Agency Comment Spec In Lab Kavitha Rai MD CHEMISTRY ORDERABLES [facility] [address] * (ABNORMAL) Comprehensive metabolic panel (non-fasting) (03/17/2023 11:56 AM EST) Glucose 107 65 - 199 mg/dL [facility] Comment:Diabetes: >=200 mg/d L plus symptoms Blood Urea Nitrogen 15 8 - 18 mg/dL [facility] Creatinine 0.67(L) 0.70 - 1.20 mg/dL [facility] Sodium 142 135 - 145 mmol/L [facility] Potassium 3.7 3.5 - 5.0 mmol/L [facility] Comment: Please note: ??Patients with WBC >100,000 may have falsely elevated Potassium levels. ??For accurate Potassium quantification in these patients send serum separator tube (gold top) for subsequent determinations. ??Contact the Clinical Chemistry Laboratory if there are any questions. Chloride 107 98 - 107 mmol/L [facility] Carbon Dioxide 24 22 - 31 mmol/L [facility] Anion Gap 11 5 - 15 mmol/L [facility] Calcium 8.9 8.5 - 10.5 mg/dL [facility] Protein, Total 6.7 6.1 - 8.0 g/dL [facility] Albumin 4.2 3.2 - 5.2 g/dL [facility] Aspartate Aminotransferase 20 0 - 30 unit/L [facility] Alanine Aminotransferase 22 0 - 30 unit/L [facility] Alkaline Phosphatase 115(H) 35 - 105 unit/L [facility] Bilirubin, Total 0.3 0.2 - 1.3 mg/dL [facility] Est Glomerular Filtration Rate 110 >=60 mL/min/1. 73 m?? [facility] Comment: This patient's estimated GFR [...] and symptoms in addition to eGFR. Blood 03/17/2023 11:5 6 AM EST 03/17/2023 12:06 PM EST Narrative Resulting Agency Comment Spec In Lab Kavitha Rai MD CHEMISTRY ORDERABLES Performing Organization Address City/[facility]/ZIP Co de Phone Number [facility] [place] [address] * CEA (03/17/2023 11:56 AM EST) Carcinoembryonic Antigen 2.1 <=3.8 ng/mL [facility] Comment: Reference range: ??(20-69 years): Non-smoker: ??less than or equal to 3.8 ng/mL Smoker: ??less than 5.5 ng/ml This result was generated using a Deepak Dequan immunoassay. ??Results obtained from other methods or manufacturers cannot be used interchangeably with this method. Blood 03/17/2023 11:5 6 AM EST 03/17/2023 12:06 PM EST Narrative Resulting Agency Comment Spec In Lab Kavitha Rai MD CHEMISTRY ORDERABLES [facility] [place] [address] documented in this encounter Visit Diagnoses Diagnosis Malignant neoplasm of overlapping sites of right breast in female, estrogen receptor negative documented in this encounter Care Teams International Trade Compliance Manager Relationship Specialty Start Date End Date Ryan Betancourt MD [address] [place] [phone] PCP - General Family Medicine 07/29/22 documented as of this encounter
--- OUTSIDE RECORDS SUMMARY | 2024-06-01 20:41 | XMS_ITS | Encounter Summary ---
[place] [address] Care Team Providers Care Sound Cutter Name Role Phone Ryan Betancourt MD Primary Care Provider [phone] Reason for Visit * Treatment/Therapy Plan Authorization (Routine) - Closed Specialty Diagnoses / Procedures Referred By Contac t Referred To Contact Diagnoses Malignant neoplasm of overlapping sites of right breast in female, estrogen receptor negative Procedures TC PERTUZUMAB, 1 MG, INJECTION [id number] (TRASTUZUMAB-ANNS) Dian Lora PA [facility] Hem Onc [address] [place] [address] Referral ID Status Reason Start Date Expiration Date Visits Re quested Visits Authorized [id number] Closed 12/22/2022 12/22/2023 1 105 Encounter Details Date Type Department Care Team (Latest Contact Info) Description 04/07/2023 7:22 AM EST Hospital Encounter Hematology [place] [address] Malignant neoplasm of overlapping sites [...] Progress Notes * Marin Ramirez RN - 04/07/2023 4:51 PM EST Patient Name: Syo San Patient Age: 42 y.o. Birthdate: 1980 Admit date: 04/07/2023 Attending Physician: No att. providers found Soy San, 42 y.o. female with diagnosis of breast cancer is here for chemotherapy infusion of Pertuzumab and Trastuzumab. PROTOCOL: n/a CYCLE: 2 DAY: 43 S: Patient agreeable to treatment today with [...] BSA by Marin Ramirez RN, and a [facility] pharmacist. Chemotherapy administered per protocol. REACTIONS (DESCRIPTION, TIME, INTERVENTION AND EFFECTIVENESS) None 30 minute observation following Pertuzumab completed with no reported or observed issues. A: Patient received treatment as ordered, reports feeling well enough to return home. Soy San confirms that all questions and concerns have been addressed prior to departure. P: Return to for care as scheduled. documented in this encounter Plan of Treatment Upcoming Encounters Date Type Department Care Team (Late st Contact Info) Description 06/14/2024 8:00 AM EST Hospital Encounter Nuclear Medicine at [place] [phone] Consuelo Joyce APRN [facility] [place] [address] 06/14/2024 8:45 AM EST Appointment XRay at [address] [place] [phone] Kavitha Rai MD [facility] DR [place] [address] 06/14/2024 9:45 AM EST Appointment Hematology and Oncology at [place] [phone] 06/14/2024 11:00 AM EST Appointment Nuclear Medicine at [place] [address] Consuelo Joyce [facility] [place] [address] 06/14/2024 1:00 PM EST Office Visit Hematology [place] [address] Kavitha Rai MD [facility] DR [place] [address] 06/14/2024 2:30 PM EST Appointment Hematology [place] [address] 07/05/2024 10:30 AM EDT Appointment Hematology and Oncology at [place] [phone] 07/05/2024 11:30 AM EDT Office Visit Hematology and Oncology at [place] [phone] Consuelo Joyce [facility] [place] [address] 07/05/2024 1:00 PM EDT Appointment Hematology and Oncology at [place] [phone] 08/16/2024 9:20 AM EDT Office Visit Ophthalmology at [place] [phone] Luz Jose, OD [facility] [place] [address] 01/14/2025 8:30 AM EDT Office Visit Psychiatry and Behavioral Health at [place] [phone] Anna Oneill, PhD [facility] [address] documented as of this encounter Results * (ABNORMAL) Cancer antigen 15-3 (04/07/2023 7:35 AM EST) Pathologist [facility] CA 15-3 28(H) <=25 unit/mL [facility] Comment: This result was generated using a Deepak Dequan immunoassay. ??Results obtained from other methods or manufacturers cannot be used interchangeably with this method. Blood 04/07/2023 7:35 AM EST 04/07/2023 7:49 AM EST Narrative Resulting Agency Comment Spec In Lab Kavitha Rai MD CHEMISTRY ORDERABLES [facility] [place] [address] * (ABNORMAL) Comprehensive metabolic panel (non-fasting) (04/07/2023 7:35 AM EST) Glucose 109 65 - 199 mg/dL [facility] Comment:Diabetes: >=200 mg/d L plus symptoms Blood Urea Nitrogen 16 8 - 18 mg/dL [facility] Creatinine 0.65(L) 0.70 - 1.20 mg/dL [facility] Sodium 140 135 - 145 mmol/L [facility] Potassium 3.7 3.5 - 5.0 mmol/L [facility] Comment: Please note: ??Patients with WBC >100,000 may have falsely elevated Potassium levels. ??For accurate Potassium quantification in these patients send serum separator tube (gold top) for subsequent determinations. ??Contact the Clinical Chemistry Laboratory if there are any questions. Chloride 107 98 - 107 mmol/L [facility] Carbon Dioxide 24 22 - 31 mmol/L [facility] Anion Gap 9 5 - 15 mmol/L [facility] Calcium 8.8 8.5 - 10.5 mg/dL [facility] Protein, Total 6.8 6.1 - 8.0 g/dL [facility] Albumin 4.2 3.2 - 5.2 g/dL [facility] Aspartate Aminotransferase 14 0 - 30 unit/L [facility] Alanine Aminotransferase 20 0 - 30 unit/L [facility] Alkaline Phosphatase 98 35 - 105 unit/L [facility] Bilirubin, Total 0.3 0.2 - 1.3 mg/dL [facility] Est Glomerular Filtration Rate 111 >=60 mL/min/1. 73 m?? [facility] Comment: This patient's estimated GFR [...] In Lab Kavitha Rai MD CHEMISTRY ORDERABLES [facility] [place] [address] documented in this encounter Visit Diagnoses Diagnosis Malignant neoplasm of overlapping sites of right breast in female, estrogen receptor negative documented in this encounter Administered Medications Inactive Administered Medications - up to 3 most recent administrations Medication Order MAR Action Action Date Dose Rate Site PERTuzumab (Perjeta) 420 mg in sodium chloride 0.9% 264 mL infusion 420 mg, Intravenous, ONCE, 1 dose, On Yvette 04/07/23 at 1530, Administer over 30 Minutes, This agent is restricted to outpatient use. Is this drug being given as an outpatient? Yes New Bag 04/07/2023 2:52 PM EST 420 mg 528 mL/hr sodium chloride 0.9% infusion 200 mL/hr, Intravenous, ONCE, 1 dose, On Yvette 04/07/23 at 1430 New Bag 04/07/2023 2:47 PM EST 200 mL/hr 200 mL/hr documented in this encounter Care Teams Sound Cutter Relationship Specialty Start Date End Date Ryan Betancourt MD [address] [place] [phone] PCP - General Family Medicine 07/29/22 documented as of this encounter
--- OUTSIDE RECORDS SUMMARY | 2024-06-01 20:41 | XMS_ITS | Encounter Summary ---
Author Organization [facility] Address [facility] [place] [address] Care Team Providers Care Manager Global Communications Name Role Phone Ryan Betancourt MD Primary Care Provider [phone] Encounter Details Date Type Department Care Team (Latest Contact Info) Description 04/28/2023 Travel Social History Tobacco Use Types Packs/Day [...] AM EST Hospital Encounter [place] [address] Consuelo Joyce APRN [facility] [place] [address] 06/14/2024 8:45 AM EST Appointment XRay at [address] [place] [address] Kavitha Rai MD [facility] DR HEMATOLOGY [place] [address] 06/14/2024 9:45 AM EST Appointment Hematology [place] [address] 06/14/2024 11:00 AM EST Appointment [place] [address] Consuelo Joyce APRN [facility] [place] [address] 06/14/2024 1:00 PM EST Office Visit Hematology [place] [address] Kavitha Rai MD [facility] HEMATOLOG[place] [address] 06/14/2024 2:30 PM EST Appointment Hematology [place] [address] 07/05/2024 10:30 AM EDT Appointment Hematology and Oncology at [place] [phone] 07/05/2024 11:30 AM EDT Office Visit Hematology and Oncology at [place] [phone] Consuelo Joyce APRN [facility] [place] [address] 07/05/2024 1:00 PM EDT Appointment Hematology and Oncology at [place] [address] 08/16/2024 9:20 AM EDT Office Visit Ophthalmology at [place] [phone] Luz Jose, OD [facility] [place] [address] 01/14/2025 8:30 AM EDT Office Visit Psychiatry and Behavioral Health at [place] [phone] Anna Oneill, PhD [facility] [place] [address] documented as of this encounter Visit Diagnoses Not on filedocumented in this encounter Care Teams Manager Global Communications Relationship Specialty Start Date End Date Ryan Betancourt MD [address] [place] [phone] PCP - General Family Medicine 07/29/22 documented as of this encounter
--- OUTSIDE RECORDS SUMMARY | 2024-06-01 20:41 | XMS_ITS | Encounter Summary ---
Author Organization Formerly [facility] Address [facility] [place] [address] Care Team Providers Care Gas Station Service Attendant Name Role Phone Ryan Betancourt MD Primary Care Provider [phone] Reason for Visit * Diagnostic Test (Routine) - Denied Specialty Diagnoses / Procedures Referred By Ciaran lopez Referred To Contact Radiology Diagnoses Malignant neoplasm of overlapping sites of right breast in female, estrogen receptor negative Procedures NM PET CT Skull Base to Mid-thigh Kavitha Rai MD [facility] DR HEMATOLOGY [place] [address] [place] [address] Referral ID Status Reason Start Date Expiration Date V isits Requested Visits Authorized [id number] Denied Specialty Service Requested 02/24/2023 08/24/2024 1 0 Encounter Details Date Type Department Care Team (Latest Contact Info) Description 04/07/2023 7:41 AM EST - 04/07/2023 11:59 PM [facility] Hospital En[place] [address] Kavitha Rai MD [facility] DR HEMATOLOGY [place] [address] Discharge Disposition: Home Social History [...] 06/09/2023 omeprazole (PriLOSEC) [address] capsuleIndications:Clara loyd [...] AM EST Hospital Encounter [place] [address] Consuelo Joyce APRN [facility] [place] [address] 06/14/2024 8:45 AM EST Appointment XRay at [address] [place] [address] Kavitha Rai MD [facility] HEMATOLOGY [place] [address] 06/14/2024 9:45 AM EST Appointment Hematology [place] [phone] 06/14/2024 11:00 AM EST Appointment [place] [phone] Consuelo Joyce APRN [facility] [place] [address] 06/14/2024 1:00 PM EST Office Visit Hematology [place] [address] Kavitha Rai MD [facility] [address] [place] [address] 06/14/2024 2:30 PM EST Appointment Hematology and Oncology at [place] [phone] 07/05/2024 10:30 AM EDT Appointment Hematology and Oncology at [place] [address] 07/05/2024 11:30 AM EDT Office Visit Hematology and Oncology at [place] [address] Consuelo Joyce APRN [facility] [place] [address] 07/05/2024 1:00 PM EDT Appointment Hematology [place] [address] 08/16/2024 9:20 AM EDT Office Visit Ophthalmology at [place] [address] Luz Jose, [facility] [place] [address] 01/14/2025 8:30 AM EDT Office Visit Psychiatry and Behavioral Health at [address] Anna Oneill, PhD [facility] [place] [address] documented as of this encounter Procedures Procedure Name Priority Date/Time Associated Diagnosis Comments NM PET CT SKULL BASE TO MID-THIGH ([facility]) Routine 04/07/2023 9:53 AM EST Malignant neoplasm of overlapping sites of right breast in female, estrogen receptor negative POCT GLUCOSE Routine 04/07/2023 7:55 AM EST documented in this encounter Results * POCT Glucose (04/07/2023 7:55 AM EST) Glucose, POC 109 65 - 199 mg/dL [facility] Comment: Supplemental ranges: <140 mg/dL before meals <180 mg/dL all other times of the day Blood 04/07/2023 7:55 AM EST 04/07/2023 7:55 AM EST Kavitha Rai MD POINT OF CARE TEST O RDERABLES Performing Organization Address City/State/[facility] Co de Phone Number [facility] [place] [address] documented in this encounter Visit Diagnoses Not on filedocumented in this encounter Administered Medications Inactive Administered Medications - up to 3 most recent administrations Medication Order MAR Action Action Date Dose Rate Site heparin (pf) (porcine) (100 units/mL) flush 5 mL syringe 500 Units 500 Units, Intravenous, ONCE PRN, Starting on Yvette 04/07/23 at 1412, Until Yvette 04/07/23 at 1707, Line Care, Refer to Intravenous (IV) Procedure: Accessing Implanted Vascular Access Devices (654) procedure and/or Intravenous (IV) Job Aid: Adult Flushing & Catheter Care (9586) job aid for additional information regarding guidelines and administration., Routine Given 04/07/2023 4:38 PM EST 500 Units TRASTuzumab-anns (Kanjinti) 620 mg in sodium chloride 0.9% 279.55 mL infusion 620 mg (rounded from 620.4 mg = 6 mg/kg/dose ? 103.4 kg Treatment plan Recorded weight), Intravenous, ONCE, 1 dose, On Yvette 04/07/23 at 1530, Administer over 30 Minutes, Incompatible in D5W, This agent is restricted to outpatient use. Is this drug being given as an outpatient? Yes New Bag 04/07/2023 4:02 PM EST 620 mg 559.1 mL/hr documented in this encounter Care Teams Gas Station Service Attendant Relationship Specialty Start Date End Date Ryan Betancourt MD [address] [place] [phone] PCP - General Family Medicine 07/29/22 documented as of this encounter
--- OUTSIDE RECORDS SUMMARY | 2024-06-01 20:41 | XMS_ITS | Encounter Summary ---
Author Organization [facility] Address [facility] [place] [address] Care Team Providers Care Store Product Demonstrator Name Role Phone Ryan Betancourt MD Primary Care Provider [phone] Encounter Details Date Type Department Care Team (Latest Contact Info) Description 03/30/2023 Travel Social History Tobacco Use Types Packs/Day [...] AM EST Hospital Encounter [place] [address] [facility] [place] [address] 06/14/2024 8:45 AM EST Appointment XRay at [address] [place] [address] [facility] DR H[place]AT[place] [address] 06/14/2024 9:45 AM EST Appointment Hematology [place] [address] 06/14/2024 11:00 AM EST Appointment [place] [address] [facility] [place] [address] 06/14/2024 1:00 PM EST Office Visit Hematology [place] [address] [facility] [place] [address] 06/14/2024 2:30 PM EST Appointment Hematology [place] [address] 07/05/2024 10:30 AM EDT Appointment Hematology and Oncology at [place] [phone] 07/05/2024 11:30 AM EDT Office Visit Hematology and Oncology at [place] [phone] [facility] [place] [place] [address] 07/05/2024 1:00 PM EDT Appointment Hematology and Oncology at [place] [address] 08/16/2024 9:20 AM EDT Office Visit Ophthalmology at [place] [phone] Luz Jose, OD [facility] [place] [address] 01/14/2025 8:30 AM EDT Office Visit Psychiatry and Behavioral Health at [place] [address] Anna Oneill, PhD [facility] [place] [address] documented as of this encounter Visit Diagnoses Not on filedocumented in this encounter Care Teams Store Product Demonstrator Relationship Specialty Start Date End Date Ryan Betancourt MD [address] [place] [phone] PCP - General Family Medicine 07/29/22 documented as of this encounter
--- OUTSIDE RECORDS SUMMARY | 2024-06-01 20:41 | XMS_ITS | Encounter Summary ---
Author Organization [facility] Address [facility] [place] [address] Care Team Providers Care Defensive Driving Instructor Name Role Phone Ryan Betancourt MD Primary Care Provider [phone] Reason for Visit * Reason Onset Date Comments Gap In Care 05/10/2023 Encounter Details Date Type Department Care Team (Late st Contact Info) Description 05/10/2023 Notes Only [place]ematology [place] [phone] Kavitha Rai MD [facility] DR [place] [address] Gap In Care Social History Tobacco Use Types Packs/Day Years Used Date Smoking Tobacco: Former Cigarettes 0.3 1 6 - 1996 Smokeless Tobacco: Former [...] as of this encounter Progress Notes * Kavitha Rai MD - 05/10/2023 3:57 PM EST This note is in appeal for coverage of her PET CT scan Constant Soo San is a 42 y.o. female With stage 4 breast cancer who underwent a staging PET CT on 11/23/2022 which revealed extensive liver, bone and soft tissue metastases. She underwent chemo and biologic therapy with an excellent clincal response and a followup PET CT was done on 03/19/2023 to assess her overall response. This as important as we were trying to make a decision whether or not she was a surgical candidate or not. It would not have been in her best interest to do Cts as it would have not been reliable for comparison and subsequent treatment planning. Upon speaking with the [facility] sales representative publications, this case was only open for 3 days which is completely unreasonable given how busy all the medical offices are with acute problems. documented in this encounter Plan of Treatment Upcoming Encounters Date Type Department Care Team (Late st Contact Info) Description 06/14/2024 8:00 AM EST Hospital Encounter [place] [address] Consuelo Joyce APRN [facility] [place] [address] 06/14/2024 8:45 AM EST Appointment XRay at [address] [place] [address] Kavitha Rai MD [facility] DR HEMATOLOGY [place] [address] 06/14/2024 9:45 AM EST Appointment Hematology and Oncology at [place] [phone] 06/14/2024 11:00 AM EST Appointment Nuclear Medicine at [place] [phone] Consuelo Joyce [facility] [place] [address] 06/14/2024 1:00 PM EST Office Visit Hematology [place] [address] Kavitha Rai MD [facility] DR HEMATOLOGY [place] [address] 06/14/2024 2:30 PM EST Appointment Hematology [place] [address] 07/05/2024 10:30 AM EDT Appointment Hematology [place] [address] 07/05/2024 11:30 AM EDT Office Visit Hematology [place] [address] Consuelo Joyce [facility] [place] [address] 07/05/2024 1:00 PM EDT Appointment Hematology and Oncology at [place] [phone] 08/16/2024 9:20 AM EDT Office [place] [address] Luz Jose, OD [facility] [place] [address] 01/14/2025 8:30 AM EDT Office Visit Psychiatry [place] [address] Anna Oneill, PhD [facility] [place] [address] documented as of this encounter Visit Diagnoses Not on filedocumented in this encounter Care Teams Defensive Driving Instructor Relationship Specialty Start Date End Date Ryan Betancourt MD [address] [place] [phone] PCP - General Family Medicine 07/29/22 documented as of this encounter
--- OUTSIDE RECORDS SUMMARY | 2024-06-01 20:41 | XMS_ITS | Encounter Summary ---
Author Organization [facility] Address [facility] [place] [address] Care Team Providers Care Wire Frame Maker Name Role Phone Ryan Betancourt MD Primary Care Provider [phone] Encounter Details Date Type Department Care Team (Latest Contact Info) Description 04/07/2023 Travel Social History Tobacco Use Types Packs/Day [...] AM EST Hospital Encounter [place] [address] Consuelo Joyce APRN [facility] [place] [address] 06/14/2024 8:45 AM EST Appointment XRay at [address] [place] [address] Kavitha Rai MD [facility] DR [place] [address] 06/14/2024 9:45 AM EST Appointment Hematology [place] [address] 06/14/2024 11:00 AM EST Appointment [place] [address] Consuelo Joyce APRN [facility] [place] [address] 06/14/2024 1:00 PM EST Office Visit Hematology [place] [address] Kavitha Rai MD [facility] [place] [address] 06/14/2024 2:30 PM EST Appointment Hematology [place] [address] 07/05/2024 10:30 AM EDT Appointment Hematology and Oncology at [place] [phone] 07/05/2024 11:30 AM EDT Office Visit Hematology and Oncology at [place] [phone] Consuelo Joyce APRN [facility] [place] [address] 07/05/2024 1:00 PM EDT Appointment Hematology and Oncology at [place] [address] 08/16/2024 9:20 AM EDT Office Visit Ophthalmology at [place] [phone] Luz Jose, OD [facility] [place] [address] 01/14/2025 8:30 AM EDT Office Visit Psychiatry and Behavioral Health at [place] [address] Anna Oneill, PhD [facility] [place] [address] documented as of this encounter Visit Diagnoses Not on filedocumented in this encounter Care Teams Wire Frame Maker Relationship Specialty Start Date End Date Ryan Betancourt MD [address] [place] [phone] PCP - General Family Medicine 07/29/22 documented as of this encounter
--- OUTSIDE RECORDS SUMMARY | 2024-06-01 20:41 | XMS_ITS | Encounter Summary ---
Author Organization [facility] [place] [address] Care Team Providers Care Optical Assistant Name Role Phone Ryan Betancourt MD Primary Care Provider [phone] Reason for Visit * Reason Onset Date Comments Medical Care Coordination 03/24/2023 Encounter Details Date Type Department Care Team (Late st Contact Info) Description 03/24/2023 Telephone Hematology [place] [phone] Madeline Verdugo RN Medical Care Coordination Social History Tobacco Use Types Packs/Day Years [...] Telephone Encounter - Madeline Verdugo RN - 03/24/2023 11:03 AM EST Summary: medication management Images from the original note were not included. ----- Message from Consuelo Pitts sent at 03/24/2023 10:06 AM EST ----- Regarding: Xgeva Jl @ [facility] just called and requested a verbal rx for Xgeva 120mg vials.. I questioned this as we usually give this in clinic when we can and I dont see notes about her needing towhite bag/self inject. Jl said this was requested by the patient but had no other information. Can you help? Maybe this was a misclick online on the patient's part? Cb [phone] Jl @ [facility] Call placed to Jl at [facility] and Spoke to Isaiah Pak Patient healthcare architect. Patient called to request medication be shipped to her. Msg to LV and BS 1149 03/24 to clarify Kavitha Rai MD Andrews, Patricia A, RN; P [facility]i/Isiah Cc: P [facility] Breast Oncology Scheduling No whitebagging and did not speak to her about this. Call placed to patient and left detailed VM message on private phone. documented in this encounter Plan of Treatment Upcoming Encounters Date Type Department Care Team (Late st Contact Info) Description 06/14/2024 8:00 AM EST Hospital Encounter Nuclear Medicine at [place] [phone] Consuelo Joyce APRN [facility] [place] [address] 06/14/2024 8:45 AM EST Appointment XRay at [address] [place] [address] Kavitha Rai MD [facility] DR HEMATOLOGY [place] [address] 06/14/2024 9:45 AM EST Appointment Hematology and Oncology at [place] [phone] 06/14/2024 11:00 AM EST Appointment Nuclear Medicine at [place] [phone] [facility] [place] [address] 06/14/2024 1:00 PM EST Office Visit Hematology and Oncology at [place] [phone] Kavitha Rai MD [facility] DR HEMATOLOGY [place] [address] 06/14/2024 2:30 PM EST Appointment Hematology [place] [address] 07/05/2024 10:30 AM EDT Appointment Hematology and Oncology at [place] [phone] 07/05/2024 11:30 AM EDT Office Visit Hematology and Oncology at [place] [phone] Consuelo Joyce APRN [facility] DR [place] [address] 07/05/2024 1:00 PM EDT Appointment Hematology and Oncology at [place] [address] 08/16/2024 9:20 AM EDT Office [place] [address] Luz Jose, OD [facility] [place] [place] [address] 01/14/2025 8:30 AM EDT Office Visit Psychiatry and Behavioral Health at [place] [address] Anna Oneill, PhD [facility] [place] [address] documented as of this encounter Visit Diagnoses Not on filedocumented in this encounter Care Teams Optical Assistant Relationship Specialty Start Date End Date Ryan Betancourt MD [address] [place] [phone] PCP - General Family Medicine 07/29/22 documented as of this encounter
--- OUTSIDE RECORDS SUMMARY | 2024-06-01 20:41 | XMS_ITS | Encounter Summary ---
Author Organization [facility] Address [facility] [place] [address] Care Team Providers Care Pole Tester Name Role Phone Ryan Betancourt MD Primary Care Provider [phone] Encounter Details Date Type Department Care Team (Latest Contact Info) Description 03/17/2023 Travel Social History Tobacco Use Types Packs/Day [...] AM EST Hospital Encounter [place] [address] Consuelo Joyce APRN [facility] [place] [address] 06/14/2024 8:45 AM EST Appointment XRay at [address] [place] [address] Kavitha Rai MD [facility] DR HEMATOLOGY [place] [address] 06/14/2024 9:45 AM EST Appointment Hematology [place] [address] 06/14/2024 11:00 AM EST Appointment [place] [address] Consuelo Joyce APRN [facility] [place] [address] 06/14/2024 1:00 PM EST Office Visit Hematology [place] [address] Kavitha Rai MD [facility] HEMATOLOGY [place] [address] 06/14/2024 2:30 PM EST Appointment Hematology [place] [address] 07/05/2024 10:30 AM EDT Appointment Hematology and Oncology at [place] [phone] 07/05/2024 11:30 AM EDT Office Visit Hematology and Oncology at [place] [phone] Consuelo Joyce APRN [facility] [place] [address] 07/05/2024 1:00 PM EDT Appointment Hematology and Oncology at [place] [address] 08/16/2024 9:20 AM EDT Office Visit Ophthalmology at [place] [phone] Luz Jose, OD [facility] [place] [address] 01/14/2025 8:30 AM EDT Office Visit Psychiatry and Behavioral Health at [place] [address] Anna Oneill, PhD [facility] [place] [address] documented as of this encounter Visit Diagnoses Not on filedocumented in this encounter Care Teams Pole Tester Relationship Specialty Start Date End Date Ryan Betancourt MD [address] [place] [phone] PCP - General Family Medicine 07/29/22 documented as of this encounter
--- OUTSIDE RECORDS SUMMARY | 2024-06-01 20:41 | XMS_ITS | Encounter Summary ---
Author Organization [facility] Address [facility] [place] [address] Care Team Providers Care Exhibit Cleaner Name Role Phone Ryan Betancourt MD Primary Care Provider [phone] Reason for Visit * Reason Comments Follow-up Encounter Details Date Type Department Care Team ([facility] st Contact Info) Description 03/17/2023 1:20 PM EST Office Visit Hematology [place] [phone] Kavitha Rai MD [facility] [address] [place] [address] Malignant neoplasm of overlapping sites of right [...] Sign Reading Time Taken Comments Blood Pressure 127/89 03/17/2023 1:04 PM EST Pulse 80 03/17/2023 1:04 PM EST Temperature 36.7 ??C (98.1 ??F) 03/17/2023 1:04 PM ES T Respiratory Rate 18 03/17/2023 1:04 PM EST Oxygen Saturation 98% 03/17/2023 1:04 PM EST Inhaled Oxygen Concentration - - Weight 100.8 kg (222 lb 3.6 oz) 03/17/2023 1:04 PM EST Height 163.4 cm (5' 4.33) 03/17/2023 1:04 PM ES T Body Mass Index 37.75 03/17/2023 1:04 PM EST documented in this encounter Progress Notes * Kavitha Rai MD - 03/17/2023 1:20 PM EST Patient ID: Soy San is a 42 y.o. 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 . She is s/p THP x6 with excellent clinical response and is on H and P alone since 12/23/2022. 03/17/2023 Here for herceptin/perjeta (IV,insurance denial on [...] 1st & 2nd week following infusion. Saw [facility] this morning who made recommendations for her. [...] After THP #1, she went to a [employer], ate half a salad. This was fine. [...] right breast in the shower. Subsequently called [facility]ans wellness, seen that day. 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 Abdominal: Soft. Bowel sounds are normal. There is no tenderness. Musculoskeletal: Normal range of motion. Extremities: no clubbing, cyanosis or edema Neurological: She is alert and oriented to person, place, and time. Gait normal. Skin: Skin is warm and dry. Taxotere nails Psychiatric: She has a normal mood and affect. Her behavior is normal. Lab Results Component Value Date WBC 5.3 03/17/2023 HGB 13.8 03/17/2023 HCT 40.8 03/17/2023 MCV 81.8 (L) 03/17/2023 PLATELET 264 03/17/2023 Lab Results Component Value Date NEUTROABS 3.12 03/17/2023 Lab Results Component Value Date NA 142 03/17/2023 K 3.7 03/17/2023 CL 107 03/17/2023 CO2 24 03/17/2023 BUN 15 03/17/2023 CREATININE 0.67 (L) 03/17/2023 GLUCOSE 107 03/17/2023 CALCIUM 8.9 03/17/2023 ESTGFR 110 03/17/2023 Lab Results Component Value Date ALT 22 03/17/2023 AST 20 03/17/2023 ALKPHOS 115 (H) 03/17/2023 BILITOT 0.3 03/17/2023 ALBUMIN 4.2 03/17/2023 PROT 6.7 03/17/2023 CEA (ng/mL) Date Value 01/13/2023 2.0 12/23/2022 2.8 11/11/2022 3.4 10/21/2022 2.8 09/30/2022 3.5 CA 15-3 (unit/mL) Date Value 02/24/2023 30 (H) 02/03/2023 29 (H) 01/13/2023 31 (H) 12/23/2022 39 (H) 12/02/2022 42 (H) ] A/P: A/P: Soy San is [...] to therapy and is on H/P monotherapy. Breast Cancer: she's completed 6 cycles of THP, now on H&P. Excellent clinical response with decreasing markers and resolved pain and breast mass. -Situation reviewed at breast tumor board 02/22/2023 and no enthusiasm for any primary breast surgery. -continue H/P.. -Continue denosumab q4 w -order signed Pet CT next time. 2. Hot flashes - declined gabapentin originally but has prescription. Encouraged to try it. - continue black cohosh - next step venlafaxine RTC 3 weeks for H&P, denosumab. 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 Future Appointments Date Time Provider Department Center 03/17/2023 3:00 PM [facility] IN[facility]ION THERAPY [facility] [address] [place] [address] 03/30/2023 8:00 AM [facility] NEW PATIENT CLINIC [facility] [address] 04/07/2023 7:45 AM ACCESS ROOM [address] 04/07/2023 8:30 AM [facility] NM PET HOLD Nuc Med [facility] Rad 04/07/2023 9:30 AM [facility] NM PET 1 MH Nuc Med [facility] Rad 04/07/2023 1:00 PM Kavitha Rai MD [facility] HEM ONC [facility] 04/07/2023 2:30 PM [facility] IN[facility]ERAPY [facility] [address] [place] [address] documented in this encounter Plan of Treatment Upcoming Encounters Date Type Department Care Team (Late st Contact Info) Description 06/14/2024 8:00 AM EST Hospital Encounter [place] [address] Consuelo Joyce [facility] [place] [address] 06/14/2024 8:45 AM EST Appointment XRay at [address] [place] [address] Kavitha Rai MD [facility] [address] [place] [address] 06/14/2024 9:45 AM EST Appointment Hematology [place] [address] 06/14/2024 11:00 AM EST Appointment [place] [address] Consuelo Joyce [facility] [place] [address] 06/14/2024 1:00 PM EST Office Visit Hematology [place] [address] Kavitha Rai MD [facility] [address] [place] [address] 06/14/2024 2:30 PM EST Appointment Hematology [place] [address] 07/05/2024 10:30 AM EDT Appointment Hematology [place] [address] 07/05/2024 11:30 AM EDT Office Visit Hematology and Oncology at [place] [phone] Consuelo Joyce APRN [facility] [place] [address] 07/05/2024 1:00 PM EDT Appointment Hematology and Oncology at [place] [address] 08/16/2024 9:20 AM EDT Office Visit Ophthalmology at [place] [address] Luz Jose, [facility] [place] [address] 01/14/2025 8:30 AM EDT Office Visit Psychiatry and Behavioral Health at [place] [address] Anna Oneill, PhD [facility] [place] [address] documented as of this encounter Visit Diagnoses Diagnosis Malignant neoplasm of overlapping sites of right breast in female, estrogen receptor negative documented in this encounter Care Teams Exhibit Cleaner Relationship Specialty Start Date End Date Ryan Betancourt MD [address] [place] [phone] PCP - General Family Medicine 07/29/22 documented as of this encounter
--- OUTSIDE RECORDS SUMMARY | 2024-06-01 20:41 | XMS_ITS | Encounter Summary ---
Author Organization [facility] [address] Care Team Providers Care Interior Assemblies Installer Name Role Phone Ryan Betancourt MD Primary Care Provider [phone] Reason for Visit * Treatment/Therapy Plan Authorization (Routine) - Closed Specialty Diagnoses / Procedures Referred By Ciaran lopez Referred To Contact Diagnoses Malignant neoplasm of overlapping sites of right breast in female, estrogen receptor negative Procedures -PHESGO (PERTUZUMAB TRASTUZUMAB & HYALURONIDASE-ZZXF) Kavitha Rai MD [facility] [address] [place] [address] [facility] Hem Onc [address] [place] [address] Referral ID Status Reason Start Date Expiration Date Visits Re quested Visits Authorized [id number] Closed 04/07/2023 04/06/2024 1 106 Encounter Details Date Type Department Care Team (Latest Contact Info) Description 05/19/2023 9:55 AM EST Hospital Encounter Hematology [place] [address] Malignant neoplasm of overlapping sites [...] Progress Notes * Seth Valdes RN - 05/19/2023 2:46 PM EST Patient Name: Soy San Patient Age: 42 y.o. Birthdate: 1980 Admit date: 05/19/2023 Attending Physician: No att. providers found DIAGNOSIS: 1. Malignant neoplasm of overlapping sites of right breast in female, estrogen receptor negative REASON FOR VISIT: Injections of Xgeva / Phesgo TIME PATIENT SEATED: 1350 TIME TREATMENT ENDED: 1440 Allergies Allergen Reactions Milk Containing Products (Dairy) Tegaderm [Transparent Dressings] Skin irritation/darkening with tegaderm. Use sorbaview Other [Unclassified Drug] Hives Pollen - runny nose, itchy and watery eyes PROTOCOL: N/A CYCLE: 2 WEEK: N/A DAY: 1 SUBJECTIVE: Patient offers no complaints at this time. OBJECTIVE: Reviewed plan of care including but not limited to medication administration, patient verbalized understanding to information provided. LAB DATA: Recent Results (from the past 24 hour(s)) Comprehensive metabolic panel (non-fasting) Result Value Ref Range Glucose Lvl 97 65 - 199 mg/dL BUN 17 8 - 18 mg/dL Creatinine 0.63 (L) 0.70 - 1.20 mg/dL Sodium 140 135 - 145 mmol/L Potassium 3.6 3.5 - 5.0 mmol/L Chloride 107 98 - 107 mmol/L CO2 24 22 - 31 mmol/L Anion Gap 9 5 - 15 mmol/L Calcium 8.4 (L) 8.5 - 10.5 mg/dL Total Protein 7.0 6.1 - 8.0 g/dL Albumin 4.1 3.2 - 5.2 g/dL AST 14 0 - 30 unit/L ALT 19 0 - 30 unit/L Alk Phos 76 35 - 105 unit/L Total Bilirubin 0.3 0.2 - 1.3 mg/dL Estimated GFR 112 >=60 mL/min/1.73 m?? Cancer antigen 15-3 Result Value Ref Range CA 15-3 29 (H) <=25 unit/mL Hemogram Result Value Ref Range WBC 5.7 4.0 - 9.5 x10(3)/mcL RBC 4.97 4.00 - 5.21 x10(6)/mcL Hemoglobin 13.6 11.7 - 15.5 g/dL Hematocrit 40.3 35.7 - 45.8 % MCV 81.1 (L) 82.6 - 94.4 fL MCH 27.4 27.1 - 32.0 pg MCHC 33.7 31.7 - 35.0 g/dL Platelets 255 145 - 357 x10(3)/mcL RDWSD 42.5 37.0 - 46.0 fL RDWCV 14.6 (H) 11.5 - 14.1 % MPV 9.9 7.6 - 12.9 fL nRBC % Auto 0.0 % nRBC Abs Auto 0.000 0.000 - 0.000 x10(3)/mcL Differential, Automated Result Value Ref Range Neutrophils % 63.1 % Neutr Abs (ANC) 3.60 1.70 - 6.10 x10(3)/mcL Lymphocytes % 26.8 % Lymphocytes Abs 1.5 0.9 - 3.2 x10(3)/mcL Monocytes % 6.1 % Monocyte Abs 0.4 0.3 - 0.9 x10(3)/mcL Eosinophils % 3.3 % Eosinophils Abs 0.2 0.0 - 0.4 x10(3)/mcL Basophils % 0.5 % Basophils Abs 0.0 0.0 - 0.1 x10(3)/mcL Immature Gran % 0.20 % Aliza Gran Abs 0.01 0.00 - 0.04 x10(3)/mcL IV ACCESS: Implanted Port - Single Lumen (non-apheresis) 09/10/22 0851 infraclavicular fossa, left power injectable port (Active) Port Accessed Date 05/19/23 05/19/23 1010 Port Accessed Time 1010 05/19/23 1010 Access Needle 19 gauge;3/4 in length 05/19/23 1010 Pain Prevention intradermal injection;distraction;topical anesthetic cream applied 05/19/23 1010 Indication/Daily Review of Necessity Inadequate peripheral IV access (see comment);Medications known to cause phlebitis (vasopressors, concentrated electrolytes, TPN, chemotherapy) 02/24/23 1200 Site Preparation/Maintenance dressing: dry and intact 05/19/23 1408 Securement secured with sterile tape strips 05/19/23 1010 Lumen Patency/Care flushed without difficulty;blood return present 05/19/23 1408 Phlebitis 0-->no symptoms 05/19/23 1408 Infiltration 0-->no symptoms 05/19/23 1408 Site Signs/Symptoms no redness;no swelling;no warmth;no pain;no palpable cord;no streak formation;no drainage 05/19/23 1408 Vascular Access Port Interventions blood specimen obtained and sent to lab 05/19/23 101 Port De-access Date 05/19/23 05/19/23 1408 Port De-Access Time 1409 05/19/23 1408 Port De-Access Indication other (see comments) 05/19/23 1408 Orders independently verified for correct drug name, route and dosage per patient's height, weight and BSA by Seth Valdes RN and pharmacist per protocol. REACTIONS: NONE ASSESSMENT: Soy San awake and alert. During post phesgo observation period patient noted with warmth & redness to right outer thigh; cool pack applied; patient aware to contact clinic if symptoms worsen; message sent to Rachelle Joyce APRN. Soy San confirms that all questions and issues have been addressed. PLAN: Return to clinic as scheduled. documented in this encounter Plan of Treatment Upcoming Encounters Date Type Department Care Team (Late st Contact Info) Description 06/14/2024 8:00 AM EST Hospital Encounter [place] [address] Consuelo Joyce APRN [facility] [address] 06/14/2024 8:45 AM EST Appointment XRay at [address] [place] [address] Kavitha Rai MD [facility] DR [place] [address] 06/14/2024 9:45 AM EST Appointment Hematology [place] [address] 06/14/2024 11:00 AM EST Appointment [place] [address] Consuelo Joyce APRN [facility] [place] [address] 06/14/2024 1:00 PM EST Office Visit Hematology [place] [address] Kavitha Rai MD [facility] DR [place] [address] 06/14/2024 2:30 PM EST Appointment Hematology [place] [address] 07/05/2024 10:30 AM EDT Appointment Hematology [place] [address] 07/05/2024 11:30 AM EDT Office Visit Hematology [place] [address] Consuelo Joyce APRN [facility] [place] [address] 07/05/2024 1:00 PM EDT Appointment Hematology and Oncology at [place] [phone] 08/16/2024 9:20 AM EDT Office Visit Ophthalmology at [place] [phone] Luz Jose, OD [facility] [place] [address] 01/14/2025 8:30 AM EDT Office Visit Psychiatry and Behavioral Health at [place] [phone] Anna Oneill, PhD [facility] [place] [address] documented as of this encounter Results * (ABNORMAL) Cancer antigen 15-3 (05/19/2023 10:05 AM EST) CA 15-3 29(H) <=25 unit/mL [facility] Comment: This result was generated using a Deepak Dequan immunoassay. ??Results obtained from other methods or manufacturers cannot be used interchangeably with this method. Blood 05/19/2023 10:0 5 AM EST 05/19/2023 10:15 AM EST Narrative Resulting Agency Comment Spec In Lab Kavitha Rai MD CHEMISTRY ORDERABLES [facility] [place] [address] * (ABNORMAL) Comprehensive metabolic panel (non-fasting) (05/19/2023 10:05 AM EST) Glucose 97 65 - 199 mg/dL [facility] Comment:Diabetes: >=200 mg/d L plus symptoms Blood Urea Nitrogen 17 8 - 18 mg/dL [facility] Creatinine 0.63(L) 0.70 - 1.20 mg/dL [facility] Sodium 140 135 - 145 mmol/L [facility] Potassium 3.6 3.5 - 5.0 mmol/L [facility] Comment: Please note: ??Patients with WBC >100,000 may have falsely elevated Potassium levels. ??For accurate Potassium quantification in these patients send serum separator tube (gold top) for subsequent determinations. ??Contact the Clinical Chemistry Laboratory if there are any questions. Chloride 107 98 - 107 mmol/L [facility] Carbon Dioxide 24 22 - 31 mmol/L [facility] Anion Gap 9 5 - 15 mmol/L [facility] Calcium 8.4(L) 8.5 - 10.5 mg/dL [facility] Protein, Total 7.0 6.1 - 8.0 g/dL [facility] Albumin 4.1 3.2 - 5.2 g/dL [facility] Aspartate Aminotransferase 14 0 - 30 unit/L [facility] Alanine Aminotransferase 19 0 - 30 unit/L [facility] Alkaline Phosphatase 76 35 - 105 unit/L [facility] Bilirubin, Total 0.3 0.2 - 1.3 mg/dL [facility] Est Glomerular Filtration Rate 112 >=60 mL/min/1. 73 m?? [facility] Comment: This patient's estimated GFR was [...] In Lab Kavitha Rai MD CHEMISTRY ORDERABLES [facility] [place] [address] documented in this encounter Visit Diagnoses Diagnosis Malignant neoplasm of overlapping sites of right breast in female, estrogen receptor negative documented in this encounter Administered Medications Inactive Administered Medications - up to 3 most recent administrations Medication Order MAR Action Action Date Dose Rate Site calcium carbonate (TUMS) chewable tablet 500 mg 500 mg, Oral, ONCE, 1 dose, On Yvette 05/19/23 at 1345, Routine Given 05/19/2023 2:04 PM EST 500 mg denosumab (Xgeva) (120 mg/1.7 mL) subcutaneous injection 120 mg 120 mg, Subcutaneous, ONCE, 1 dose, On [facility] 05/19/23 at 1345, - Bring to room temperature 15-30 minutes before administration. - Call provider for corrected calcium less than 8.5 mg/dL or CrCl less than 30 mL/min., This agent is restricted to outpatient use. Is this drug being given as an outpatient? Yes Given 05/19/2023 2:05 PM EST 120 mg Right Arm PERTuzumab, TRASTuzumab and hyaluronidase-zzxf (Phesgo) (600 mg-600 mg-20,000 units per 10 mL) subcutaneous injection 1,200 mg 1,200 mg, Subcutaneous, Administer over 5 Minutes, ONCE, 1 dose, On [facility] 05/19/23 at 1430, Observe patients for infusion-related reactions for a [...] being given as an outpatient? Yes Given 05/19/2023 2:11 PM EST 1,200 mg 20-Other (document in comment section) documented in this encounter Care Teams Interior Assemblies Installer Relationship Specialty Start Date End Date Ryan Betancourt MD [address] [place] [phone] PCP - General Family Medicine 07/29/22 documented as of this encounter
--- OUTSIDE RECORDS SUMMARY | 2024-06-01 20:41 | XMS_ITS | Encounter Summary ---
Author Organization [facility] Address [facility] [place] [address] Care Team Providers Care Corrugator Operator Helper Name Role Phone Ryan Betancourt MD Primary Care Provider [phone] Encounter Details Date Type Department Care Team (Late st Contact Info) Description 05/19/2023 11:20 AM EST Office Visit Hematology [place] [phone] Consuelo Joyce APRN [facility] [place] [address] Malignant neoplasm of overlapping sites of right breast in female, estrogen receptor negative; Carcinoma of breast metastatic to bone, unspecified laterality; Family history of malignant neoplasm of breast Social History Tobacco Use Types [...] Sign Reading Time Taken Comments Blood Pressure 132/76 05/19/2023 10:10 AM EST Pulse 77 05/19/2023 10:10 AM EST Temperature 36.6 ??C (97.9 ??F) 05/19/2023 10:[address] Respiratory Rate 18 05/19/2023 10:10 AM EST Oxygen Saturation 98% 05/19/2023 10:10 AM EST Inhaled Oxygen Concentration - - Weight 104.3 kg (229 lb 15 oz) 05/19/2023 10:10 AM EST Height 163.1 cm (5' 4.21) 05/19/2023 10:[address] Body Mass Index 39.21 05/19/2023 10:10 AM EST documented in this encounter Progress Notes * Consuelo Joyce, ROAD MIXER OPERATOR - 05/19/2023 11:20 AM EST Patient ID: Soy San [...] plan for every 6 weeks started 02/24/2023. 05/19/2023 On Phesgo and xgeva q 6 [...] eddie has hemorrhoids as well. Stopped taking alap, didn't like how it made her feel. 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 PET CT 04/07/2023: [...] 1st & 2nd week following infusion. Saw [facility] this morning who made recommendations [...] After THP #1, she went to a [employer], ate half a salad. This was fine. [...] right breast in the shower. Subsequently called [facility], seen that day. 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 Owns a [employer] and [employer] No 911 exposure Patient Vitals for the past 24 hrs: Temp Pulse Resp BP SpO2 05/19/23 1010 36.6 ??C (97.9 ??F) 77 18 132/76 98 % Wt Readings from Last 3 Encounters: 05/19/23 104.3 kg (229 lb 15 oz) 04/28/23 103 kg (227 lb 1.2 oz) 04/07/23 102.6 kg (226 lb 4.8 oz) Physical exam Constitutional: She is oriented [...] normal. Lab Results Component Value Date WBC 5.7 05/19/2023 HGB 13.6 05/19/2023 HCT 40.3 05/19/2023 MCV 81.1 (L) 05/19/2023 PLATELET 255 05/19/2023 Lab Results Component Value Date NEUTROABS 3.60 05/19/2023 Lab Results Component Value Date NA 140 05/19/2023 K 3.6 05/19/2023 CL 107 05/19/2023 CO2 24 05/19/2023 BUN 17 05/19/2023 CREATININE 0.63 (L) 05/19/2023 GLUCOSE 97 05/19/2023 CALCIUM 8.4 (L) 05/19/2023 ESTGFR 112 05/19/2023 Lab Results Component Value Date ALT 19 05/19/2023 AST 14 05/19/2023 ALKPHOS 76 05/19/2023 BILITOT 0.3 05/19/2023 ALBUMIN 4.1 05/19/2023 PROT 7.0 05/19/2023 CEA (ng/mL) Date Value 03/17/2023 2.1 01/13/2023 2.0 12/23/2022 2.8 11/11/2022 3.4 10/21/2022 2.8 CA 15-3 (unit/mL) Date Value 05/19/2023 29 (H) 04/28/2023 29 (H) 04/07/2023 28 (H) 03/17/2023 30 (H) 02/24/2023 30 (H) ] A/P: A/P: Soy San is [...] completed 6 cycles of THP, now on H&P as Phesgo. - Excellent clinical response with decreasing markers and resolved breast mass. -Pain has returned in last week. Will monitor at next cycle and will discuss with Dr. Rai when she returns - Situation reviewed at breast tumor board 02/22/2023 and no enthusiasm for any primary breast surgery. - Continue H/P started on 12/23/2022. OK for Phesgo today -Discussed following up with PCP for rectal exam for concern for hemorrhoids, diarrhea is stable at1-2 days after injection. Can also consider increasing fiber to determine if this improves symptomsoutside of the diarrhea. -Continue denosumab q6w -order signed for next dose which is 06/29. Last dose on 05/19/23. Some confusion over q12 or 4 week regiment. Prefer q4 week however will sync up with phesgo and make it q6 week. -PET CT previously reviewed and currently LUIS MIGUEL 2. Hot flashes - Increasing at night, discussed using mag at night, reviewed it can cause GI upset start with low dose and see if she has improvement - No taking gabapentin , feels like it didn't help - Denies tooth pain today and for last few weeks, reports she has cleaning in June and will discuss with dentist then. Will hold xgeva for dental work if needed at that time. 3. RTC 3 weeks for MD/WAREHOUSE TEAM LEADER visit , ministerio Alvarez Total time spent: 40 minutes with > 50% spend in discussion of above Future Appointments Date Time Provider Department Center 05/19/2023 2:00 PM [facility] [place] [address] [place] [address] 06/09/2023 12:15 PM ACCESS ROOM [address] 06/09/2023 1:20 PM Kavitha Rai MD [facility] [place] [facility] 06/09/2023 2:30 PM [facility] INFUSION TH[facility]APY [facility] [place] [address] [place] [address] 06/30/2023 12:00 PM ACCESS ROOM [facility] [address] [place] [address] 06/30/2023 1:00 PM Kavitha Rai MD [facility] [place] [facility] [place] 06/30/2023 2:00 PM [facility] INFUSION THERAPY [address] documented in this encounter Plan of Treatment Upcoming Encounters Date Type Department Care Team (Late st Contact Info) Description 06/14/2024 8:00 AM EST Hospital Encounter [place] [phone] Consuelo Joyce APRN [facility] [place] [address] 06/14/2024 8:45 AM EST Appointment XRay at [address] [place] [phone] Kavitha Rai MD [facility] HEMATOLOGY [place] [address] 06/14/2024 9:45 AM EST Appointment Hematology [place] [address] 06/14/2024 11:00 AM EST Appointment Nuclear Medicine at [address] Consuelo Joyce APRN [facility] [place] [address] 06/14/2024 1:00 PM EST Office Visit Hematology and Oncology at [place] [phone] Kavitha Rai MD [facility] [address] [place] [address] 06/14/2024 2:30 PM EST Appointment Hematology and Oncology at [place] [phone] 07/05/2024 10:30 AM EDT Appointment Hematology and Oncology at [place] [phone] 07/05/2024 11:30 AM EDT Office Visit Hematology and Oncology at [place] [phone] Consuelo Joyce [facility] [place] [address] 07/05/2024 1:00 PM EDT Appointment Hematology [place] [address] 08/16/2024 9:20 AM EDT Office Visit Ophthalmology at [place] [phone] Luz Jose OD [facility] [place] [address] 01/14/2025 8:30 AM EDT Office Visit Psychiatry and [place] [address] Anna Oneill, PhD [facility] [place] [address] documented as of this encounter Visit Diagnoses Diagnosis Malignant neoplasm of overlapping sites of right breast in female, estrogen receptor negative Carcinoma of breast metastatic to bone, unspecified laterality Family history of malignant neoplasm of breast documented in this encounter Care Teams Corrugator Operator Helper Relationship Specialty Start Date End Date Ryan Betancourt MD [address] [place] [phone] PCP - General Family Medicine 07/29/22 documented as of this encounter
--- OUTSIDE RECORDS SUMMARY | 2024-06-01 20:41 | XMS_ITS | Encounter Summary ---
[place] [address] Care Team Providers Care Wood Shingle Roofer Name Role Phone Ryan Betancourt MD Primary Care Provider [phone] Reason for Referral * Diagnostic Test (Routine) - Denied Specialty Diagnoses / Procedures Referred By Ciaran lopez Referred To Contact Radiology Diagnoses Malignant neoplasm of overlapping sites of right breast in female, estrogen receptor negative Procedures NM PET CT Skull Base to Mid-thigh Kavitha Rai MD [facility] [place] [address] [place] [address] Referral ID Status Reason Start Date Expiration Date V isits Requested Visits Authorized [id number] Denied Specialty Service Requested 02/24/2023 08/24/2024 1 0 Reason for Visit * Diagnostic Test (Routine) - Denied Specialty Diagnoses / Procedures Referred By Ciaran lopez Referred To Contact Radiology Diagnoses Malignant neoplasm of overlapping sites of right breast in female, estrogen receptor negative Procedures NM PET CT Skull Base to Mid-thigh Kavitha Rai MD [facility] [place] [address] [place] [address] Referral ID Status Reason Start Date Expiration Date V isits Requested Visits Authorized [id number] Denied Specialty Service Requested 02/24/2023 08/24/2024 1 0 Encounter Details Date Type Department Care Team (Latest Contact Info) Description 04/07/2023 7:41 AM EST - 04/07/2023 11:59 PM EST Hospital Encounter Nuclear Medicine at [facility] [place] [address] Kavitha Rai MD [facility] [address] [place] [address] Malignant neoplasm of overlapping sites of right [...] 01/13/2023 06/09/2023 omeprazole (PriLOSEC) [address] capsuleIndications:Lcara gnant neoplasm of overlapping sites of right [...] AM EST Hospital Encounter [place] [phone] Consuelo Joyce APRN [facility] [address] 06/14/2024 8:45 AM EST Appointment XRay at [address] [place] [address] Kavitha Rai MD [facility] [address] HEMATOLOGY [place] [address] 06/14/2024 9:45 AM EST Appointment Hematology [place] [address] 06/14/2024 11:00 AM EST Appointment Nuclear Medicine at [address] Consuelo Joyce [facility] [place] [place] [address] 06/14/2024 1:00 PM EST Office Visit Hematology [place] [address] Kavitha Rai MD [facility] [address] HEMATOLOGY [place] [address] 06/14/2024 2:30 PM EST Appointment Hematology [place] [address] 07/05/2024 10:30 AM EDT Appointment Hematology [place] [address] 07/05/2024 11:30 AM EDT Office Visit Hematology [place] [address] Consuelo Joyce [facility] [place] [place] [address] 07/05/2024 1:00 PM EDT Appointment Hematology [place] [address] 08/16/2024 9:20 AM EDT Office [place] [phone] Luz Jose, OD [facility] [place] [address] 01/14/2025 8:30 AM EDT Office Visit Psychiatry [place] [phone] Anna Oneill, PhD [facility] [place] [address] documented as of this encounter Procedures Procedure Name Priority Date/Time Associated Diagnosis Comments NM PET CT SKULL BASE TO MID-THIGH ([facility]) Routine 04/07/2023 9:53 AM EST Malignant neoplasm of overlapping sites of right breast in female, estrogen receptor negative documented in this encounter Results * NM PET CT Skull Base to Mid-thigh (04/07/2023 9:53 AM EST) Anatomical Region Laterality Modality Positron Emissio n Tomography (PET) Impressions 04/13/2023 4:34 PM EST 1. ??No evidence of tumor recurrence or active metastatic disease. 2. ??Interval appearance of a small FDG avid ill-defined opacity at the medial margin of the right upper lobe anterior to the right hilum, favored to represent a small focus of inflammation. Attention on follow-up recommended. I have personally reviewed the image(s) and the resident's interpretation and agree with the findings, David Jack MD at 04/13/2023 4:34 PM Thank you for letting us participate in the care of this patient. ??If you are a health care provider and have any questions regarding this report, please contact the number below. ??For patients who have questions please contact the health hospice care transitions coordinator that requested your imaging first. ? Electronically signed by: David Jack MD, [facility] ([phone]), at 04/13/2023 4:34 PM Narrative 04/13/2023 4:34 PM EST EXAMINATION: NM PET CT STANDARD SKULL BASE TO MID-THIGH CLINICAL HISTORY: Breast cancer, assess treatment response TECHNIQUE: Following IV injection of 09-ekimky-7-deoxyglucose (FDG) a standard uptake of approximately 60 minutes, a noncontrast CT scan followed by a PET scan were acquired from the base of the skull to mid thighs. The noncontrast CT was used for anatomic localization and photon attenuation correction of the PET scan. Blood glucose level: 109 (mg/dL) FDG dose: 15 mCi COMPARISON: PET/CT 11/23/2022, PET CT 07/28/2022 FINDINGS: HEAD/NECK: Normal activity in all soft tissue regions of the neck and visualized lower head. Normal variant brown fat activity in the bilateral cervical paraspinal regions. No lymphadenopathy. CHEST: Unchanged mild dermal thickening in the right breast with no significant activity above reference blood pool background. Normal activity in all other regions of both breasts. Interval appearance of a small FDG avid ill-defined opacity at the medial margin of the right upper lobe anterior to the right hilum (CT axial image 76), favored to represent a small focus of inflammation. No significant adenopathy. Normal variant brown fat activity in the bilateral paraspinal regions. Left-sided chest port with tip terminating in the right atrium. Small hiatal hernia. ABDOMEN/PELVIS: Normal activity in all soft tissue regions. No adenopathy. SKELETON/EXTREMITIES: Normal activity in all regions of the axial and visualized appendicular skeleton. Procedure Note David Jack MD - 04/13/2023 EXAMINATION: NM PET CT STANDARD SKULL BASE TO MID-THIGH CLINICAL HISTORY: Breast cancer, assess treatment response TECHNIQUE: Following IV injection of 70-zagdnl-9-deoxyglucose (FDG) astandard uptake of approximately 60 minutes, a noncontrast CT scan followed by aPET scan were acquired from the base of the skull to mid thighs. The noncontrast CTwas used for anatomic localization and photon attenuation correction of thePET scan. Blood glucose level: 109 (mg/dL) FDG dose: 15 mCi COMPARISON: PET/CT 11/23/2022, PET CT 07/28/2022 FINDINGS: HEAD/NECK: Normal activity in all soft tissue regions of the neck and visualizedlower head. Normal variant brown fat activity in the bilateral cervicalparaspinal regions. No lymphadenopathy. CHEST: Unchanged mild dermal thickening in the right breast with no significant activity above reference blood pool background. Normal activity in all other regions of both breasts. Interval appearance of a small FDG avid ill-defined opacity at the medialmargin of the right upper lobe anterior to the right hilum (CT axial image 76),favored to represent a small focus of inflammation. No significant adenopathy. Normal variant brown fat activity in the bilateral paraspinal regions. Left-sided chest port with tip terminating in the right atrium. Smallhiatal hernia. ABDOMEN/PELVIS: Normal activity in all soft tissue regions. No adenopathy. SKELETON/EXTREMITIES: Normal activity in all regions of the axial and visualized appendicular skeleton. IMPRESSION 1. No evidence of tumor recurrence or active metastatic disease. 2. Interval appearance of a small FDG avid ill-defined opacity at themedial margin of the right upper lobe anterior to the right hilum, favored torepresent a small focus of inflammation. Attention on follow-up recommended. I have personally reviewed the image(s) and the resident's interpretationand agree with the findings, David Jack MD at 04/13/2023 4:34 PM Thank you for letting us participate in the care of this patient. If youare a health care provider and have any questions regarding this report,please contact the number below. For patients who have questions please contactthe health hospice care transitions coordinator that requested your imaging first. Electronically signed by: David Jack MD, [facility]([phone]), at 04/13/2023 4:34 PM Kavitha Rai MD IMG PET ORDERABLES documented in this encounter Visit Diagnoses Diagnosis Malignant neoplasm of overlapping sites of right breast in female, estrogen receptor negative documented in this encounter Administered Medications Inactive Administered Medications - up to 3 most recent administrations Medication Order MAR Action Action Date Dose Rate Site fludeoxyglucose (F-18) FDG injection 0-20 mCi 0-20 mCi, Intravenous, ONCE PRN, 1 dose, Starting on Yvette 04/07/23 at 0805, Until Yvette 04/07/23 at 0800, Per Protocol, Radiology Contrast, Routine Given 04/07/2023 8:00 AM EST 15 mCi documented in this encounter Care Teams Wood Shingle Roofer Relationship Specialty Start Date End Date Ryan Betancourt MD [address] [place] [phone] PCP - General Family Medicine 07/29/22 documented as of this encounter
--- OUTSIDE RECORDS SUMMARY | 2024-06-01 20:41 | XMS_ITS | Encounter Summary ---
Author Organization [facility] Address [facility] [place] [address] Care Team Providers Care Passenger Agent Name Role Phone Ryan Betancourt MD Primary Care Provider [phone] Reason for Visit * Reason Comments Follow-up Encounter Details Date Type Department Care Team ([facility] st Contact Info) Description 04/07/2023 1:00 PM EST Office Visit [place] [phone] Kavitha Rai MD [facility] [place] [address] Malignant neoplasm of overlapping sites of right [...] Sign Reading Time Taken Comments Blood Pressure 125/76 04/07/2023 12:45 PM EST Pulse 79 04/07/2023 12:45 PM EST Temperature 36.3 ??C (97.3 ??F) 04/07/2023 1 2:45 PM EST Respiratory Rate 18 04/07/2023 12:4 5 PM EST Oxygen Saturation 99% 04/07/2023 12: 45 PM EST Inhaled Oxygen Concentration - - Weight 102.6 kg (226 lb 4.8 oz) 023 12:45 PM EST Height 161.1 cm (5' 3.43) 04/07/2023 1 2:45 PM EST Body Mass Index 39.55 04/07/2023 12:45 PM EST documented in this encounter Progress Notes * Ree Daniels MD - 04/07/2023 1:00 PM EST Patient ID: Soy San is a 42 y.o. 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 She is s/p THP x6 with excellent clinical response and is on H and P alone since 12/23/2022. 04/07/2023 On herceptin/perjeta (IV, insurance denial on [...] 2nd week following infusion. Saw [facility] this morning who made recommendations for [...] After THP #1, she went to a [employer], ate half a salad. This was fine. [...] in the shower. Subsequently called [facility] womans wellness, seen that day. 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 Lab Results Component Value Date WBC 5.6 04/07/2023 HGB 13.7 04/07/2023 HCT 41.4 04/07/2023 MCV 81.7 (L) 04/07/2023 PLATELET 264 04/07/2023 Lab Results Component Value Date NEUTROABS 3.47 04/07/2023 Lab Results Component Value Date NA 140 04/07/2023 K 3.7 04/07/2023 CL 107 04/07/2023 CO2 24 04/07/2023 BUN 16 04/07/2023 CREATININE 0.65 (L) 04/07/2023 GLUCOSE 109 04/07/2023 CALCIUM 8.8 04/07/2023 ESTGFR 111 04/07/2023 Lab Results Component Value Date ALT 20 04/07/2023 AST 14 04/07/2023 ALKPHOS 98 04/07/2023 BILITOT 0.3 04/07/2023 ALBUMIN 4.2 04/07/2023 PROT 6.8 04/07/2023 CEA (ng/mL) Date Value 03/17/2023 2.1 01/13/2023 [...] surgery. - Continue H/P started on 12/23/2022. Her insurance approved Phesgo, therefore we will consider change her regimen to this one. -Continue denosumab q12w -order signed. Last dose on 02/24/2023. -PET CT pending from today. We do not expect any finding considering that her tumor markers is decreased to 28 today. 2. Hot flashes - Improving, 2-3 during the day and 1-2 at night. - She is on gabapentin 300 mg daily and black cohosh. - Next step venlafaxine. Plan: She is okay to proceed with herceptin/perjeta today. Insurance approved Phesgo. We will change to this regimen. RTC in 3 weeks for MD visit, labs and Phesgo infusion. Ree Maguire M.D. Fellow, Hematology and Medical Oncology Pager # [phone] 04/07/23, 2:24 PM Hematology/Oncology Clinic [facility] [place] [address] * Kavitha Rai MD - 04/07/2023 1:00 PM EST I have seen and examined the patient in person and reviewed the Fellow's above history and I agree with the details as written. The assessment and plan were formulated in discussion with me and I agree with them as documented. Doing well on H/P. Waiting for PET CT results. documented in this encounter Plan of Treatment Upcoming Encounters Date Type Department Care Team (Late st Contact Info) Description 06/14/2024 8:00 AM EST Hospital Encounter [place] [phone] Consuelo Joyce APRN [facility] [place] [address] 06/14/2024 8:45 AM EST Appointment XRay at [address] [place] [phone] Kavitha Rai MD [facility] [address] [place] [address] 06/14/2024 9:45 AM EST Appointment Hematology and Oncology at [place] [address] 06/14/2024 11:00 AM EST Appointment Nuclear Medicine at [address] Consuelo Joyce APRN [facility] [place] [address] 06/14/2024 1:00 PM EST Office Visit Hematology and Oncology at [address] Kavitha Rai MD [facility] HEMATOLOGY [place] [address] 06/14/2024 2:30 PM EST Appointment Hematology and Oncology at [address] 07/05/2024 10:30 AM EDT Appointment Hematology and Oncology at [place] [address] 07/05/2024 11:30 AM EDT Office Visit Hematology and Oncology at [place] [phone] Consuelo Joyce, [facility] [place] [address] 07/05/2024 1:00 PM EDT Appointment Hematology and Oncology at [place] [phone] 08/16/2024 9:20 AM EDT Office Visit Ophthalmology at [place] [phone] Luz Jose OD [facility] [place] [address] 01/14/2025 8:30 AM EDT Office Visit Psychiatry [place] [address] Anna Oneill, PhD [facility] [place] [address] documented as of this encounter Visit Diagnoses Diagnosis Malignant neoplasm of overlapping sites of right breast in female, estrogen receptor negative documented in this encounter Care Teams Passenger Agent Relationship Specialty Start Date End Date Ryan Betancourt MD [address] [place] [phone] PCP - General Family Medicine 07/29/22 documented as of this encounter
--- OUTSIDE RECORDS SUMMARY | 2024-06-01 20:41 | XMS_ITS | Encounter Summary ---
[place] [address] Care Team Providers Care Engine Pilot Name Role Phone Ryan Betancourt MD Primary Care Provider [phone] Reason for Referral * Diagnostic Test (Routine) - Closed Specialty Diagnoses / Procedures Referred By Ciaran lopez Referred To Contact Cardiology Diagnoses Malignant neoplasm of overlapping sites of breast in female, estrogen receptor negative, unspecified laterality Procedures Echocardiogram Transthoracic Dian Lora PA [facility] DR HEMATOLOGY AND ONCOLOGY [address] [place] [address] Referral ID Status Reason Start Date Expiration Date V isits Requested Visits Authorized [id number] Closed Specialty Service Requested 12/24/2022 12/24/2023 1 1 Reason for Visit * Diagnostic Test (Routine) - Closed Specialty Diagnoses / Procedures Referred By Ciaran t Referred To Contact Cardiology Diagnoses Malignant neoplasm of overlapping sites of breast in female, estrogen receptor negative, unspecified laterality Procedures Echocardiogram Transthoracic Dian Lora PA [facility] [place] [address] [facility] [place] [address] Referral ID Status Reason Start Date Expiration Date V isits Requested Visits Authorized [id number] Closed Specialty Service Requested 12/24/2022 12/24/2023 1 1 Encounter Details Date Type Department Care Team (Latest Contact Info) Description 03/17/2023 9:47 AM EST - 03/17/2023 11:39 AM EST Hospital Encounter Non-Invasive Cardiology Lab [facility] [place] [phone] Kavitha Rai MD [facility] HEMATOLOGY [place] [address] Malignant neoplasm of overlapping sites of breast in female, estrogen receptor negative, unspecified laterality Discharge Disposition: Home Social History [...] AM EST Hospital Encounter Nuclear [place] [phone] Consuelo Joyce APRN [facility] [place] [address] 06/14/2024 8:45 AM EST Appointment XRay at [address] [place] [address] Kavitha Rai MD [facility] [place] [address] 06/14/2024 9:45 AM EST Appointment Hematology and Oncology at [place] [phone] 06/14/2024 11:00 AM EST Appointment Nuclear Medicine at [place] [phone] Consuelo Joyce APRN [facility] [place] [place] [address] 06/14/2024 1:00 PM EST Office Visit [place]ology [place] [address] Kavitha Rai MD [facility] [place] [address] 06/14/2024 2:30 PM EST Appointment [place] [address] 07/05/2024 10:30 AM EDT Appointment [place] [address] 07/05/2024 11:30 AM EDT Office Visit [place] [address] Consuelo Joyce [facility] [place] [address] 07/05/2024 1:00 PM EDT Appointment [place] [address] 08/16/2024 9:20 AM EDT [place] [address] Luz Jose, OD [facility] [place] [address] 01/14/2025 8:30 AM EDT Office Visit Psychiatry [place] [phone] Anna Oneill, PhD [facility] [place] [address] documented as of this encounter Procedures Procedure Name Priority Date/Time Associated Diagnosis Comments ECHO COMPLETE Routine 03/17/2023 11:29 AM EST Malignant neoplasm of overlapping sites of breast in female, estrogen receptor negative, unspecified laterality documented in this encounter Results * ECHO COMPLETE (03/17/2023 11:29 AM EST) Anatomical Region Laterality Modality Cardiac Other 03/17/2023 10:4 0 AM EST Narrative 03/17/2023 11:39 AM EST [address] [place] [address] ? Echocardiogram Report Name: SOY SAN ?Study Date: 03/17/2023 10:40 AMBP: 122/69 mmHg ? Patient Location: 4A : 1980 ? Height: 163 cm ? Account: [id number] Age: 42 yrs ? Weight: 101 kg Gender: Female ?BSA: 2.1 m2 Ordering Physician: KAVITHA RAI Referring Physician: KAVITHA RAI Performed By: Jacqui Zamudio RDCS Reason For Study: Malignant neoplasm of overlapping sites of breast in female, estrogen receptor negative Exam Location: [facility]. Interpretation Summary Left ventricular size and systolic function is normal. Wall thickness is normal. There are no segmental wall motion abnormalities. The left ventricular ejection fraction is 61% by 3D volumetric assessment. The right ventricle is of normal size. Right ventricular systolic function is normal. Procedure Complete-85423. 3D - 12256. Left ventricular strain. Satisfactory quality. There is normal sinus rhythm. Left Ventricle There is no ventricular septal defect. Wall thickness is normal. Left ventricular size and systolic function is normal. The left ventricular ejection fraction is 61% by 3D volumetric assessment. Global longitudinal strain is measured at -17 %. (GE). There are no segmental wall motion abnormalities. Right Ventricle The right ventricle is of normal size. Right ventricular systolic function is normal. Left Atrium The left atrium is normal. No abnormality of the interatrial septum is identified. Right Atrium The right atrium is normal. Aortic Valve The aortic valve is tricuspid. There is no aortic stenosis. There is no aortic regurgitation. Mitral Valve The mitral valve is structurally normal. There is trace mitral regurgitation. Tricuspid Valve The tricuspid valve is structurally normal. There is trace tricuspid regurgitation. Pulmonic Valve The pulmonic valve is not well visualized. Great Arteries The aortic root is of normal size. No abnormalities are identified. Ascending aorta is normal in size. No abnormalities of the pulmonary artery are identified. Venous Inferior vena cava is normal in size. Inferior vena cava collapse less than 50% with respiration. Pericardium/Pleural The pericardium appears normal. Hemodynamics The peak right ventricular systolic pressure is 20.5 mmHg . The estimated right atrial pressure is 8mmHg. Left ventricular filling pressure is normal. Ejection Fraction ?2D Measurements ? Volumes 4D EF: 60.9 % ? IVSd: 0.85 cm ?LAV(MOD- bp) Indexed: ?LVIDd: 4.5 cm ?LVIDs: 2.8 cm ?26.1 ml/m2 ?LVPWd: 0.79 cm ? RA A4Cs_phl: 17.3 cm2 ? 3D ESV: 39.3 ml ?LV mass(C)d: 118.1 grams ? 3D EDV: 100.5 ml ?LV mass(C)dI: 57.6 grams/m2 ?Ao root diam: 2.9 cm ? 3DEDV Indexed: 49.0 ml/m2 ?Ao root diam index: 1.4 ?3DESV Indexed: 19.1 ml/m2 ?asc Aorta Diam: 2.9 cm ? SV(LVOT): 64.2 ml ?LVOT diam: 1.9 cm ?TAPSE_phl: 2.5 cm ?SI(LVOT): 31.3 ml/m2 Doppler LV V1 VTI: 21.6 cm MV E max cameron: 82.2 cm/sec MV A max cameron: 63.2 cm/sec MV E/A: 1.3 MV dec time: 0.13 sec Lat Peak E' Cameron: 13.9 cm/sec E/ e' (lat): 5.9 Med Peak E' Cameron: 8.8 cm/sec E/e' (med): 9.3 E/e' Average: 7.6 TR max cameron: 176.4 cm/sec RVSP(TR): 20.5 mmHg I ?WMSI = 1.00 ? % Normal = 100 ?Segments ??Size X - Cannot ?2 - ?4 - ?1-2 ? small Interpret ?1 - Normal ?? Hypokinetic 3 - Akinetic Dyskinetic ?? 3-5 ? moderate 5 - ? 6-14 ?large Aneurysmal ?15-16 ?? diffuse Procedure Note Deo Shelby MD - 03/17/2023 1 [place] [address] Echocardiogram Report Name: SOY SAN Study Date: 0:40 AMBP: 122/69 mmHg Patient Location: : 1980 Height: 163 cm Account: [id number] Age: 42 yrs Weight: 101 kg Gender: Female BSA: 2.1 m2 Ordering Physician: KAVITHA RAI Referring Physician: KAVITHA RAI Performed By: Jacqui Zamudio RDCS Reason For Study: Malignant neoplasm of overlapping sites of breast infemale, estrogen receptor negative Exam Location: [facility]. Interpretation Summary Left ventricular size and systolic function is normal. Wall thickness isnormal. There are no segmental wall motion abnormalities. The left ventricularejection fraction is 61% by 3D volumetric assessment. The right ventricle is of normal size. Right ventricular systolic functionis normal. Procedure Complete-80798. 3D - 11804. Left ventricular strain. Satisfactory quality.There is normal sinus rhythm. Left Ventricle There is no ventricular septal defect. Wall thickness is normal. Leftventricular size and systolic function is normal. The left ventricular ejectionfraction is 61% by 3D volumetric assessment. Global longitudinal strain is measured at-17 %. (GE). There are no segmental wall motion abnormalities. Right Ventricle The right ventricle is of normal size. Right ventricular systolic functionis normal. Left Atrium The left atrium is normal. No abnormality of the interatrial septum isidentified. Right Atrium The right atrium is normal. Aortic Valve The aortic valve is tricuspid. There is no aortic stenosis. There is noaortic regurgitation. Mitral Valve The mitral valve is structurally normal. There is trace mitralregurgitation. Tricuspid Valve The tricuspid valve is structurally normal. There is trace tricuspid regurgitation. Pulmonic Valve The pulmonic valve is not well visualized. Great Arteries The aortic root is of normal size. No abnormalities are identified.Ascending aorta is normal in size. No abnormalities of the pulmonary artery areidentified. Venous Inferior vena cava is normal in size. Inferior vena cava collapse lessthan 50% with respiration. Pericardium/Pleural The pericardium appears normal. Hemodynamics The peak right ventricular systolic pressure is 20.5 mmHg . The estimatedright atrial pressure is 8mmHg. Left ventricular filling pressure is normal. Ejection Fraction 2D Measurements Volumes 4D EF: 60.9 % IVSd: 0.85 cm LAV(MOD-bp)Indexed: LVIDd: 4.5 cm LVIDs: 2.8 cm 26.1 ml/m2 LVPWd: 0.79 cm RA A4Cs_phl: 17.3cm2 3D ESV: 39.3 ml LV mass(C)d: 118.1 grams 3D EDV: 100.5ml LV mass(C)dI: 57.6 grams/m2 Ao root diam: 2.9 cm 3DEDV Indexed:49.0 ml/m2 Ao root diam index: 1.4 3DESV Indexed:19.1 ml/m2 asc Aorta Diam: 2.9 cm SV(LVOT): 64.2ml LVOT diam: 1.9 cm TAPSE_phl: 2.5 cm SI(LVOT): 31.3ml/m2 Doppler LV V1 VTI: 21.6 cm MV E max cameron: 82.2 cm/sec MV A max cameron: 63.2 cm/sec MV E/A: 1.3 MV dec time: 0.13 sec Lat Peak E' Cameron: 13.9 cm/sec E/ e' (lat): 5.9 Med Peak E' Cameron: 8.8 cm/sec E/e' (med): 9.3 E/e' Average: 7.6 TR max cameron: 176.4 cm/sec RVSP(TR): 20.5 mmHg I WMSI = 1.00 % Normal = 100 SegmentsSize X - Cannot 2 - 4 - 1-2small Interpret 1 - Normal Hypokinetic 3 - Akinetic Dyskinetic 3-5moderate 5 - 6-14large Aneurysmal 15-16diffuse Kavitha Rai MD ECHO ORDERABLES documented in this encounter Visit Diagnoses Diagnosis Malignant neoplasm of overlapping sites of breast in female, estrogen receptor negative, unspecified laterality documented in this encounter Care Teams Engine Pilot Relationship Specialty Start Date End Date Ryan Betancourt MD [address] [place] [phone] PCP - General Family Medicine 07/29/22 documented as of this encounter
--- OUTSIDE RECORDS SUMMARY | 2024-06-01 20:42 | XMS_ITS | Encounter Summary ---
Author Organization [facility] [place] [address] Care Team Providers Care Magneto Electrician Name Role Phone Ryan Betancourt MD Primary Care Provider [phone] Reason for Visit * Reason Onset Date Comments Pain 01/19/2023 Myalgias arms le gs and calves Encounter Details Date Type Department Care Team ([facility] st Contact Info) Description 01/19/2023 Telephone Hematology [place] [phone] Madeline Verdugo, YOSEF Pain (Myalgias arms legs and calves) Social History Tobacco Use Types Packs/Day Years [...] Telephone Encounter - Madeline Verdugo RN - 01/19/2023 8:17 AM EDTSummary: muscle pain ----- Message from LEOPOLDO Tsang sent at 01/14/2023 7:12 AM EDT ----- Regarding: RE: Muscle Pains / Hot Flashes I did send in Gabapentin yesterday as I counseled the pt on this treatment. However, I can send in a referral for acupuncture as there is good evidence that this is a reasonable treatment. Please let me know if you would like me to put in a referral. From: Seth Valdes RN Sent: 01/13/2023 6:07 PM EDT To: Madeline Verdugo RN, LEOPOLDO Tsang Subject: Muscle Pains / Hot Flashes I cared for Soo who expressed concern regarding hot flashes for the past 4 months; in addition tomuscle pains to her arms, legs and calves. She further expressed that the muscle pains are constant, making it sometimes challenging with ADLs. She shared that she mentioned her concerns with the team and that she did not have this issue when she was receiving chemo. I understand that one of the side effects of Pertuzumab is myalgias. She shared she does not want to take pain medications, and therefore wondering if there is another plan for her. Call placed to patient and spoke with Soo. She is picking up the gabapentin to day and will try. She does not like needles so she is not sure she wants to try acupuncture but will keep it in mind. Discussed trying tonic water especially if the muscle cramping is in her calves. Tonic water with Quinine can be a useful tool. All questions answered to patient's apparent satisfaction. Soo will call if she wants to try the acupuncture. documented in this encounter Plan of Treatment Upcoming Encounters Date Type Department Care Team (Late st Contact Info) Description 06/14/2024 8:00 AM EST Hospital Encounter [place] [address] [facility] [place] [address] 06/14/2024 8:45 AM EST Appointment XRay at [address] [place] [address] Kavitha Rai MD [facility] [address] [place] [address] 06/14/2024 9:45 AM EST Appointment Hematology [place] [address] 06/14/2024 11:00 AM EST Appointment [place] [address] [facility] [place] [address] 06/14/2024 1:00 PM EST Office Visit Hematology [place] [address] Kavitha Rai MD [facility] [address] [place] [address] 06/14/2024 2:30 PM EST Appointment Hematology [place] [address] 07/05/2024 10:30 AM EDT Appointment Hematology and Oncology at [address] 07/05/2024 11:30 AM EDT Office Visit Hematology and Oncology at [place] [address] Consuelo Joyce APRN [facility] [place] [address] 07/05/2024 1:00 PM EDT Appointment Hematology and Oncology at [place] [address] 08/16/2024 9:20 AM EDT Office Visit Ophthalmology at [place] [address] Luz Jose, [facility] [place] [address] 01/14/2025 8:30 AM EDT Office Visit Psychiatry and Behavioral Health at [place] [address] Anna Oneill, PhD [facility] [place] [address] documented as of this encounter Visit Diagnoses Not on filedocumented in this encounter Care Teams Magneto Electrician Relationship Specialty Start Date End Date Ryan Betancourt MD [address] [place] [phone] PCP - General Family Medicine 07/29/22 documented as of this encounter
--- OUTSIDE RECORDS SUMMARY | 2024-06-01 20:42 | XMS_ITS | Encounter Summary ---
[place] [address] Care Team Providers Care Software Team Leader Name Role Phone Ryan Betancourt MD Primary Care Provider [phone] Reason for Visit * Treatment/Therapy Plan Authorization (Routine) - Closed Specialty Diagnoses / Procedures Referred By Contac t Referred To Contact Diagnoses Malignant neoplasm of overlapping sites of right breast in female, estrogen receptor negative Procedures TC PERTUZUMAB, 1 MG, INJECTION [id number] (TRASTUZUMAB-ANNS) Dian Lora PA [facility] Hem Onc [address] [place] [address] Referral ID Status Reason Start Date Expiration Date Visits Re quested Visits Authorized [id number] Closed 12/22/2022 12/22/2023 1 105 Encounter Details Date Type Department Care Team (Latest Contact Info) Description 02/03/2023 10:36 AM EDT - 02/03/2023 11:59 PM EDT Hospital Encounter Hematology [place] [address] Malignant neoplasm of overlapping sites [...] 30 g 08/25/2022 gabapentin (Neurontin) 300 mg capsuleIndications:Ma lignant neoplasm of overlapping sites of right breast in female, estrogen receptor negative,Deformity of nail bed Take 1 capsule by mouth nightly. 30 capsule 1 01/13/2023 06/09/2023 omeprazole (PriLOSEC) [address] capsuleIndications:Ma lignant neoplasm of overlapping sites of right [...] for Nausea. 30 tablet 3 10/04/2022 05/03/2024 OLANZapine (ZyPREXA) 5 mg tablet Take 1 tablet by mouth nightly. Take starting the night of chemotherapy and take for 4 nights (Nights 1 through 4). 12 tablet 10/04/2022 02/24/2023 oxyCODONE-acetaminoph en (Percocet) 5-325 mg tablet Take 1 tablet by mouth every 4 hours as needed for Pain. 90 tablet 09/23/2022 03/17/2023 documented as of this encounter Progress Notes * Maria C Rock RN - 02/03/2023 4:02 PM EDT Patient Name: Soy San Patient Age: 42 y.o. Birthdate: 1980 Admit date: 02/03/2023 Attending Physician: No att. providers found Soy San, 42 y.o. female with diagnosis of breast cancer is here for an immunotherapy infusion of pertuzumab/trastuzumab-anns. PROTOCOL: N/A CYCLE: 1 DAY: 43 S: Patient reports feeling well enough for treatment today with no present questions or concerns. Reviewed plan of care for infusion visit, patient verbalized understanding of plan as outlined. O: Last EF done 08/11. Per génesis Odonnell to treat, pt to be scheduled for new echo. Immunotherapy orders independently verified for correct drug name, route and dosage per patient's height, weight andBSA by Maria C Rock, YOSEF, and a [facility] [place] pharmacist. Immunotherapy administeredper protocol. REACTIONS (DESCRIPTION, TIME, INTERVENTION AND EFFECTIVENESS) [...] AM EST Hospital [place] [address] Consuelo Joyce APRN [facility] [place] [address] 06/14/2024 8:45 AM EST Appointment XRay at [address] [place] [address] Kavitha Rai MD [facility] [address] [place] [address] 06/14/2024 9:45 AM EST Appointment Hematology [place] [address] 06/14/2024 11:00 AM EST Appointment [place] [address] [facility] [place] [address] 06/14/2024 1:00 PM EST Office Visit Hematology [place] [address] Kavitha Rai MD [facility] [address] [place] [address] 06/14/2024 2:30 PM EST Appointment Hematology [place] [address] 07/05/2024 10:30 AM EDT Appointment Hematology [place] [address] 07/05/2024 11:30 AM EDT Office Visit Hematology and Oncology at [place] [phone] Consuelo Joyce APRN [facility] [place] [address] 07/05/2024 1:00 PM EDT Appointment Hematology [place] [address] 08/16/2024 9:20 AM EDT Office Visit Ophthalmology at [place] [address] Luz Jose, CARSON [facility] [place] [address] 01/14/2025 8:30 AM EDT Office Visit Psychiatry and Behavioral Health at [place] [address] Anna Oneill, PhD [facility] [place] [address] documented as of this encounter Visit Diagnoses [...] Units, Intravenous, ONCE PRN, Starting on Yvette 02/03/23 at 1259, Until Tue02/04/23 at 0440, Line Care, Refer to Intravenous (IV) Procedure: Accessing Implanted Vascular Access Devices (694) procedure and/or Intravenous (IV) Job Aid: Adult Flushing & Catheter Care (9763) job aid for additional information regarding guidelines and administration., Routine Given 02/03/2023 3:41 PM EDT 500 Units PERTuzumab (Perjeta) 420 mg in sodium chloride 0.9% 264 mL infusion 420 mg, Intravenous, ONCE, 1 dose, On Yvette 02/03/23 at 1415, Administer over 30 Minutes, This agent is restricted to outpatient use. Is this drug being given as an outpatient? Yes New Bag 02/03/2023 1:53 PM EDT 420 mg 528 mL/hr sodium chloride 0.9% infusion 200 mL/hr, Intravenous, ONCE, 1 dose, On Yvette 02/03/23 at 1315 New Bag 02/03/2023 1:57 PM EDT 200 mL/hr 200 mL/hr TRASTuzumab-anns (Kanjinti) 620 mg in sodium chloride 0.9% 279.55 mL infusion 620 mg (rounded from 620.4 mg = 6 mg/kg/dose ? 103.4 kg Treatment plan Recorded weight), Intravenous, ONCE, 1 dose, On Yvette 02/03/23 at 1415, Administer over 30 Minutes, Incompatible in D5W, This agent is restricted to outpatient use. Is this drug being given as an outpatient? Yes New Bag 02/03/2023 3:00 PM EDT 620 mg 559.1 mL/hr documented in this encounter Care Teams Software Team Leader Relationship Specialty Start Date End Date Ryan Betancourt MD [address] [place] [phone] PCP - General Family Medicine 07/29/22 documented as of this encounter
--- OUTSIDE RECORDS SUMMARY | 2024-06-01 20:42 | XMS_ITS | Encounter Summary ---
[place] [address] Care Team Providers Care Melter Supervisor Name Role Phone Ryan Betancourt MD Primary Care Provider [phone] Reason for Visit * Treatment/Therapy Plan Authorization (Routine) - Closed Specialty Diagnoses / Procedures Referred By Contac t Referred To Contact Diagnoses Malignant neoplasm of overlapping sites of right breast in female, estrogen receptor negative Procedures TC PERTUZUMAB, 1 MG, INJECTION [id number] (TRASTUZUMAB-ANNS) Dian Lora PA [facility] Hem Onc [address] [place] [address] Referral ID Status Reason Start Date Expiration Date Visits Re quested Visits Authorized [id number] Closed 12/22/2022 12/22/2023 1 105 Encounter Details Date Type Department Care Team (Latest Contact Info) Description 01/13/2023 12:20 PM EDT - 01/13/2023 11:59 PM EDT Hospital Encounter [place] [address] Malignant neoplasm of overlapping sites [...] Progress Notes * Clemencia Sandy RN - 01/13/2023 12:46 PM EDT Patient Name: Soy San Patient Age: 42 y.o. Birthdate: 1980 Admit date: 01/13/2023 Attending Physician: No att. providers found Access visit. See MAR and/or flowsheet. documented in this encounter Plan of Treatment Upcoming Encounters Date Type Department Care Team (Late st Contact Info) Description 06/14/2024 8:00 AM EST Hospital Encounter [place] [address] Consuelo Joyce [facility] [place] [address] 06/14/2024 8:45 AM EST Appointment XRay at [address] [place] [address] Kavitha Rai MD [facility] DR [place] [address] 06/14/2024 9:45 AM EST Appointment Hematology [place] [address] 06/14/2024 11:00 AM EST Appointment [place] [address] Consuelo Joyce APRN [facility] [place] [address] 06/14/2024 1:00 PM EST Office Visit Hematology [place] [address] Kavitha Rai MD [facility] DR [place] [address] 06/14/2024 2:30 PM EST Appointment Hematology [place] [address] 07/05/2024 10:30 AM EDT Appointment Hematology [place] [address] 07/05/2024 11:30 AM EDT Office Visit Hematology [place] [address] Consuelo Joyce APRN [facility] [place] [address] 07/05/2024 1:00 PM EDT Appointment Hematology [place] [address] 08/16/2024 9:20 AM EDT Office [place] [address] Luz Jose, OD [facility] [place] [address] 01/14/2025 8:30 AM EDT Office Visit Psychiatry [place] [phone] Anna Oneill, PhD [facility] [place] [address] documented as of this encounter Procedures Procedure Name Priority Date/Time Associated Diagnosis Comments HEMOGRAM STAT 01/13/2023 12:40 PM EDT Malignant neoplasm of overlapping sites of right breast in female, estrogen receptor negative DIFFERENTIAL, AUTOMATED STAT 01/13/2023 12:40 PM EDT Malignant neoplasm of overlapping sites of right breast in female, estrogen receptor negative CANCER ANTIGEN 15-3 STAT 01/13/2023 1 2:40 PM EDT Malignant neoplasm of overlapping sites of right breast in female, estrogen receptor negative CBC (WITH DIFF) STAT 01/13/2023 12:40 PM EDT Malignant neoplasm of overlapping sites of right breast in female, estrogen receptor negative CEA Routine 01/13/2023 12:40 PM EDT Malignant neoplasm of overlapping sites of right breast in female, estrogen receptor negative COMPREHENSIVE METABOLIC PANEL STAT 01/13/2023 12:40 PM EDT Malignant neoplasm of overlapping sites of right breast in female, estrogen receptor negative documented in this encounter Results * Differential, Automated (01/13/2023 12:40 PM EDT) Neutrophil % 56.7 % [facility] Neutrophil Absolute 3.21 1.70 - 6.10 x10(3)/mcL [facility] Lymph % 32.7 % [facility] Lymphocytes Abs 1.8 0.9 - 3.2 x10(3)/[facility] LABOR[facility] Monocyte % 5.5 % [facility] Monocyte Abs 0.3 0.3 - 0.9 x10(3)/[facility] Eos % 4.4 % [facility] Eosinophils Abs 0.2 0.0 - 0.4 x10(3)/[facility] Basophil % 0.5 % [facility] Baso Absolute 0.0 0.0 - 0.1 x10(3)/[facility] LAB[facility] Immature Gran % 0.20 % [facility] Comment: Immature granulocytes(IG's)percentage and absolute count will include metamyelocytes, myelocytes, and promyelocytes. Blood smears from CBCs yielding IG's will be scanned manually for concordance. If this scan disagrees with the automated IG or if promyelocytes are noted, a manual differential will be performed. Immature Gran Absolute 0.01 0.00 - 0.04 x10(3)/[facility] Blood 01/13/2023 12:4 0 PM EDT 01/13/2023 1:10 PM EDT Narrative Resulting Agency Comment Spec In Lab Kavitha Rai MD HEMATOLOGY ORDERABLE S Performing Organization Address City/State/[facility] Co de Phone Number [facility] [place] [address] * Hemogram (01/13/2023 12:40 PM EDT) White Blood Cell 5.7 4.0 - 9.5 x10(3)/[facility] Red Blood Cell 4.42 4.00 - 5.21 x10(6)/[facility] Hemoglobin 12.7 11.7 - 15.5 g/dL [facility] Hematocrit 38.1 35.7 - 45.8 % [facility] Mean Cell Volume 86.2 82.6 - 94.4 fL [facility] Mean Cell Hemoglobin 28.7 27.1 - 32.0 pg [facility] Mean Cell Hemoglobin Concentration 33.3 31.7 - 35.0 g/dL [facility] Platelet 232 145 - 357 x10(3)/[facility] RDW Standard Deviation 40.9 37.0 - 46.0 fL [facility] RDW coefficient of variation 13.0 11.5 - 14.1 % [facility] Mean Platelet Volume 10.5 7.6 - 12.9 fL [facility] NRBC% auto 0.0 % [facility] NRBC Absolute 0.000 0.000 - 0.000 x10(3)/mcL [facility] Blood 01/13/2023 12:4 0 PM EDT 01/13/2023 1:10 PM EDT Narrative Resulting Agency Comment Spec In Lab Kavitha Rai MD HEMATOLOGY ORDERABLE S Performing Organization Address [facility] Co de Phone Number [facility] [place] [address] * (ABNORMAL) Cancer antigen 15-3 (01/13/2023 12:40 PM EDT) CA 15-3 31(H) <=25 unit/mL [facility] Comment: This result was generated using a Deepak Dequan immunoassay. ??Results obtained from other methods or manufacturers cannot be used interchangeably with this method. Blood 01/13/2023 12:4 0 PM EDT 01/13/2023 1:10 PM EDT Narrative Resulting Agency Comment Spec In Lab Kavitha Rai MD CHEMISTRY ORDERABLES Performing Organization Address [facility] Co de Phone Number [facility] [place] [address] * Comprehensive metabolic panel (non-fasting) (01/13/2023 12:40 PM EDT) Glucose 98 65 - 199 mg/dL [facility] Comment:Diabetes: >=200 mg/d L plus symptoms Blood Urea Nitrogen 14 8 - 18 mg/dL [facility] Creatinine 0.76 0.70 - 1.20 mg/dL [facility] Sodium 141 135 - 145 mmol/L [facility] Potassium 3.9 3.5 - 5.0 mmol/L [facility] Comment: Please note: ??Patients with WBC >100,000 may have falsely elevated Potassium levels. ??For accurate Potassium quantification in these patients send serum separator tube (gold top) for subsequent determinations. ??Contact the Clinical Chemistry Laboratory if there are any questions. Chloride 106 98 - 107 mmol/L [facility] Carbon Dioxide 25 22 - 31 mmol/L [facility] Anion Gap 10 5 - 15 mmol/L [facility] Calcium 9.2 8.5 - 10.5 mg/dL [facility] Protein, Total 6.5 6.1 - 8.0 g/dL [facility] Albumin 3.9 3.2 - 5.2 g/dL [facility] Aspartate Aminotransferase 15 0 - 30 unit/L [facility] Alanine Aminotransferase 18 0 - 30 unit/L [facility] Alkaline Phosphatase 81 35 - 105 unit/L [facility] Bilirubin, Total 0.4 0.2 - 1.3 mg/dL [facility] Est Glomerular Filtration Rate 99 >=60 mL/min/1. 73 m?? [facility] Comment: This patient's estimated [...] and symptoms in addition to eGFR. Blood 01/13/2023 12:4 0 PM EDT 01/13/2023 1:10 PM EDT Narrative Resulting Agency Comment Spec In Lab Kavitha Rai MD CHEMISTRY ORDERABLES [facility] [place] [address] * CEA (01/13/2023 12:40 PM EDT) Carcinoembryonic Antigen 2.0 <=3.8 ng/mL [facility] Comment: Reference range: ??(20-69 years): Non-smoker: ??less than or equal to 3.8 ng/mL Smoker: ??less than 5.5 ng/ml This result was generated using a Deepak Dequan immunoassay. ??Results obtained from other methods or manufacturers cannot be used interchangeably with this method. Blood 01/13/2023 12:4 0 PM EDT 01/13/2023 1:10 PM EDT Narrative Resulting Agency Comment Spec In Lab Kavitha Rai MD CHEMISTRY ORDERABLES [facility] [place] [address] documented in this encounter Visit Diagnoses Diagnosis [...] EVERY 1 MIN PRN, Starting on Yvette 01/13/23 at 1224, Until Tue01/14/23 at 0436, Line Care, Flush pertains to all indwelling lines. Flush per protocol found in the job aid using the link provided on this medication record. Refer to Intravenous (IV) Job Aid: Adult Flushing & Catheter Care (4035) job aid for additional information regarding guidelines and administration., Routine Given 01/13/2023 12:45 PM EDT 20 mLs documented in this encounter Care Teams Melter Supervisor Relationship Specialty Start Date End Date Ryan Betancourt MD [address] [place] [phone] PCP - General Family Medicine 07/29/22 documented as of this encounter
--- OUTSIDE RECORDS SUMMARY | 2024-06-01 20:42 | XMS_ITS | Encounter Summary ---
Author Organization [facility] Address [facility] [place] [address] Care Team Providers Care Milieu Manager Name Role Phone Ryan Betancourt MD Primary Care Provider [phone] Encounter Details Date Type Department Care Team (Latest Contact Info) Description 02/24/2023 Travel Social History Tobacco Use Types Packs/Day [...] AM EST Hospital Encounter [place] [address] Consuelo Joyce APRN [facility] [place] [address] 06/14/2024 8:45 AM EST Appointment XRay at [address] [place] [address] Kavitha Rai MD [facility] DR HEMATOLOGY [place] [address] 06/14/2024 9:45 AM EST Appointment Hematology [place] [address] 06/14/2024 11:00 AM EST Appointment [place] [address] Consuelo Joyce APRN [facility] [place] [address] 06/14/2024 1:00 PM EST Office Visit Hematology [place] [address] Kavitha Rai MD [facility] HEMATOLOGY [place] [address] 06/14/2024 2:30 PM EST Appointment Hematology [place] [address] 07/05/2024 10:30 AM EDT Appointment Hematology and Oncology at [place] [phone] 07/05/2024 11:30 AM EDT Office Visit Hematology and Oncology at [place] [phone] Consuelo Joyce APRN [facility] [place] [address] 07/05/2024 1:00 PM EDT Appointment Hematology and Oncology at [place] [address] 08/16/2024 9:20 AM EDT Office Visit Ophthalmology at [place] [phone] Luz Jose, OD [facility] [place] [address] 01/14/2025 8:30 AM EDT Office Visit Psychiatry and Behavioral Health at [place] [address] Anna Oneill, PhD [facility] [place] [address] documented as of this encounter Visit Diagnoses Not on filedocumented in this encounter Care Teams Milieu Manager Relationship Specialty Start Date End Date Ryan Betancourt MD [address] [place] [phone] PCP - General Family Medicine 07/29/22 documented as of this encounter
--- OUTSIDE RECORDS SUMMARY | 2024-06-01 20:42 | XMS_ITS | Encounter Summary ---
[place] [address] Care Team Providers Care Iron Guardrail Installer Name Role Phone Ryan Betancourt MD Primary Care Provider [phone] Reason for Referral * Diagnostic Test (Routine) - Closed Specialty Diagnoses / Procedures Referred By Ciaran lopez Referred To Contact Radiology Diagnoses Malignant neoplasm of overlapping sites of right breast in female, estrogen receptor negative Procedures MRI Breast wwo Contrast Kavitha Benavides MD [facility] [address] [place] [address] [place] [address] Referral ID Status Reason Start Date Expiration Date V isits Requested Visits Authorized [id number] Closed Specialty Service Requested 12/02/2022 06/04/2024 1 1 Reason for Visit * Diagnostic Test (Routine) - Closed Specialty Diagnoses / Procedures Referred By Ciaran lopez Referred To Contact Radiology Diagnoses Malignant neoplasm of overlapping sites of right breast in female, estrogen receptor negative Procedures MRI Breast wwo Contrast Kavitha Benavides MD [facility] [address] [place] [address] [place] [address] Referral ID Status Reason Start Date Expiration Date V isits Requested Visits Authorized [id number] Closed Specialty Service Requested 12/02/2022 06/04/2024 1 1 Encounter Details Date Type Department Care Team (Latest Contact Info) Description 01/11/2023 4:45 PM EDT - 01/11/2023 11:59 PM EDT Hospital Encounter MRI at [facility] [place] [phone] Kavitha Rai MD [facility] [address] [place] [address] Malignant neoplasm of overlapping sites of right [...] as needed. 30 g 1 12/09/2022 12/30/2023 omeprazole (PriLOSEC) [address] capsule Take 1 capsule by mouth daily. 30 capsule 5 11/11/2022 01/13/2023 ondansetron (Zofran) 8 mg tablet Take 1 [...] 09/23/2022 03/17/2023 documented as of this encounter Plan of Treatment Upcoming Encounters Date Type Department Care Team (Late st Contact Info) Description 06/14/2024 8:00 AM EST Hospital Encounter [place] [address] Consuelo Joyce TOE PUNCHER [facility] [place] [address] 06/14/2024 8:45 AM EST Appointment XRay at [address] [place] [address] Kavitha Rai MD [facility] [address] [place] [address] 06/14/2024 9:45 AM EST Appointment Hematology and Oncology at [place] [phone] 06/14/2024 11:00 AM EST Appointment Nuclear Medicine at [place] [phone] Consuelo Joyce TOE PUNCHER [facility] [place] [address] 06/14/2024 1:00 PM EST Office Visit Hematology [place] [address] Kavitha Rai MD [facility] [address] [place] [address] 06/14/2024 2:30 PM EST Appointment Hematology [place] [address] 07/05/2024 10:30 AM EDT Appointment Hematology [place] [address] 07/05/2024 11:30 AM EDT Office Visit Hematology [place] [address] Consuelo Joyce APRN [facility] [place] [address] 07/05/2024 1:00 PM EDT Appointment Hematology [place] [address] 08/16/2024 9:20 AM EDT Office [place] [address] Luz Jose, OD [facility] [address] 01/14/2025 8:30 AM EDT Office Visit Psychiatry [place] [phone] Anna Oneill, PhD [facility] [place] [address] documented as of this encounter Procedures Procedure Name Priority Date/Time Associated Diagnosis Comments MRI BREAST WWO CONTRAST BILAT Routine 01/11/2023 5:52 PM EDT Malignant neoplasm of overlapping sites of right breast in female, estrogen receptor negative documented in this encounter Results * MRI Breast wwo Contrast Bilat (01/11/2023 5:52 PM EDT) Anatomical Region Laterality Modality Breast Bilateral Magnetic Resonan ce Impressions 01/12/2023 4:01 PM EDT Marked decrease in known right breast malignancy with an approximately 3 cm area of residual nonmass enhancement in the right upper mid breast. Resolved right axillary adenopathy. Abnormal inferior left breast skin, recommend clinical correlation. RECOMMENDATION: Surgical/oncologic management. FINAL ASSESSMENT: BI-RADS Category 6: Known Biopsy-Proven Malignancy Thank you for letting us participate in the care of this patient. ??If you are a health care provider and have any questions regarding this report, please contact the number below. ??For patients who have questions please contact the health daycare teacher that requested your imaging first. ? Narrative 01/12/2023 4:01 PM EDT EXAMINATION: MRI BREAST WWO CONTRAST BILAT CLINICAL INDICATION: Assess neoadjuvant Treatment response. Stage 4 HER2 positive locally advanced breast cancer right breast cancer. TECHNIQUE: Multiplanar sequences were obtained pre- and post- Dotarem enhancement, to include SPGR weighted dynamic run-off and subtraction sequences obtained after the intravenous administration of 22 ccs of Dotarem. Computer algorithm analysis for lesion detection and kinetic contrast enhancement curve analysis was performed, using [employer] software. COMPARISON STUDIES: Compared and/or correlated with prior studies including MRI 07/28/2022, mammogram 07/06/2022 FINDINGS: Background Parenchymal Enhancement: Mild Amount of Fibroglandular Tissue: Heterogeneous fibroglandular tissue LEFT BREAST: There is an approximately 17 x 9 mm area of high T2 signal enhancement in the inferior skin of the left breast at a middle depth between nipple and chest wall. Recommend clinical correlation for a dermal process. No abnormal enhancement is seen within the breast. RIGHT BREAST: In the upper, mid to slightly outer breast, there is an approximately 3.3 x 1.6 cm area of clumped nonmass enhancement, located superior and anterior to the postbiopsy clip. This is best seen on the post gadolinium axial series 10, image [id number] while the clip is best seen on image 86, and sagittal series 12 image [id number]. No other specific or dominant area of enhancement is now seen. The enhancing masses noted on the previous MRI have resolved. There is diffuse anterior skin thickening, although less pronounced than on the prior exam. The postbiopsy clip in the right axilla is again seen although the visualized lymph nodes have decreased markedly in size, now appearing normal. . Lymph Node Basins/Other: Marked right axillary adenopathy previously noted is no longer present. Postbiopsy clip in one of the nodes is visible.. No significant abnormalities are seen in the chest wall or skin.. Kavitha Rai MD IMG MRI ORDERABLES documented [...] Intravenous, ONCE PRN, 1 dose, Starting on Tue01/11/23 at 1722, Until Tue01/11/23 at 1722, Per Protocol, Radiology Contrast, Routine Given 01/11/2023 5:22 PM EDT 22 mLs documented in this encounter Care Teams Iron Guardrail Installer Relationship Specialty Start Date End Date Ryan Betancourt MD [address] [place] [phone] PCP - General Family Medicine 07/29/22 documented as of this encounter
--- OUTSIDE RECORDS SUMMARY | 2024-06-01 20:42 | XMS_ITS | Encounter Summary ---
Author Organization Formerly [facility] Address [facility] [place] [address] Care Team Providers Care Record Label Intern Name Role Phone Ryan Betancourt MD Primary Care Provider [phone] Encounter Details Date Type Department Care Team (Latest Contact Info) Description 02/16/2023 Multidisciplinary Ca re Committee [place] [phone] Rosaline Lea MD [facility] [address] [place] [address] Social History Tobacco Use Types Packs/Day Years [...] Progress Notes * Rosaline Lea MD - 02/16/2023 10:00 AM EDT Breast - Tumor Board Note Date Presented: 02/23/23 Presenting Physician: Natalie Diagnosis/Tumor Site: Is this Metastatic Disease: Yes Synopsis of History/HPI: October 31, 2021 noted some right breast discomfort but did not notice a mass. The next day noted a lump in the right breast in the shower. Subsequently called [facility], seen that day. Examined and [...] Pathology: PD IDC + LVI ER negative [place] negative Her 2 alexa amplified HER2 TO [...] THP 11/11/22: C5 THP 12/02/22: C6 THP Imaging: MRI shows 3 cm NMLE Pathology/Histology: Stage: Clinical Data (Exams, Labs, etc.): Molecular Pathology Results: Clinical Trial Availability: none Options Discussed: Excellent clinical and radiographic response to surgery-RT to breast vs observe on systemic therapy Recommendations: continue systemic therapy with her2 targeted agents, no surgery or radiation unless needed for palliation. DISCLAIMER: The patient was discussed and the tumor board made recommendations but it is ultimatelyup to the treatment provider(s) and the patient to determine the patient???s care. documented in this encounter Plan of Treatment Upcoming Encounters Date Type Department Care Team (Late st Contact Info) Description 06/14/2024 8:00 AM EST Hospital Encounter Nuclear Medicine at [place] [phone] Consuelo Joyce [facility] [place] [address] 06/14/2024 8:45 AM EST Appointment XRay at [address] [place] [address] Kavitha Rai MD [facility] [address] [place] [address] 06/14/2024 9:45 AM EST Appointment Hematology [place] [address] 06/14/2024 11:00 AM EST Appointment [place] [address] Consuelo Joyce [facility] [place] [address] 06/14/2024 1:00 PM EST Office Visit Hematology [place] [address] Kavitha Rai MD [facility] [address] [place] [address] 06/14/2024 2:30 PM EST Appointment H[place]ology [place] [address] 07/05/2024 10:30 AM EDT Appointment Hematology [place] [address] 07/05/2024 11:30 AM EDT Office Visit H[place]ology [place] [address] Consuelo Joyce APRN [facility] [address] 07/05/2024 1:00 PM EDT Appointment Hematology [place] [address] 08/16/2024 9:20 AM EDT Office [place] [address] Luz Jose, OD [facility] [place] [address] 01/14/2025 8:30 AM EDT Office Visit Psychiatry and Behavioral Health at [place] [address] Anna Oneill, PhD [facility] [place] [address] documented as of this encounter Visit Diagnoses Not on filedocumented in this encounter Care Teams Record Label Intern Relationship Specialty Start Date End Date Ryan Betancourt MD [address] [place] [phone] PCP - General Family Medicine 07/29/22 documented as of this encounter
--- OUTSIDE RECORDS SUMMARY | 2024-06-01 20:42 | XMS_ITS | Encounter Summary ---
[place] [address] Care Team Providers Care Trestle Builder Name Role Phone Ryan Betancourt MD Primary Care Provider [phone] Encounter Details Date Type Department Care Team (Latest Contact Info) Description 12/23/2022 8:18 AM EDT - 12/23/2022 11:59 PM EDT Hospital Encounter Hematology [place] [phone] Malignant neoplasm of overlapping sites of right [...] of this encounter Progress Notes * Samantha Reyna RN - 12/23/2022 9:09 AM EDT Patient Name: Soy San Patient Age: 42 y.o. Birthdate: 1980 Admit date: 12/23/2022 Attending Physician: No att. providers found Access visit. See MAR and/or flowsheet. documented in this encounter Plan of Treatment Upcoming Encounters Date Type Department Care Team (Late st Contact Info) Description 06/14/2024 8:00 AM EST Hospital Encounter [place] [phone] Consuelo Joyce [facility] [place] [address] 06/14/2024 8:45 AM EST Appointment XRay at [address] [place] [address] Kavitha Rai MD [facility] DR HEMATOLOGY [place] [address] 06/14/2024 9:45 AM EST Appointment Hematology [place] [phone] 06/14/2024 11:00 AM EST Appointment [place] [phone] Consuelo Joyce [facility] [place] [address] 06/14/2024 1:00 PM EST Office Visit Hematology [place] [phone] Kavitha Rai MD [facility] DR HEMATOLOGY [place] [address] 06/14/2024 2:30 PM EST Appointment Hematology [place] [address] 07/05/2024 10:30 AM EDT Appointment Hematology and Oncology at [place] [phone] 07/05/2024 11:30 AM EDT Office Visit Hematology and Oncology at [place] [phone] Consuelo Joyce APRN [facility] [place] [address] 07/05/2024 1:00 PM EDT Appointment Hematology [place] [address] 08/16/2024 9:20 AM EDT Office Visit Ophthalmology at [place] [phone] Luz Jose, OD [facility] [place] [address] 01/14/2025 8:30 AM EDT Office Visit Psychiatry and Behavioral Health at [place] [phone] Anna Oneill, PhD [facility] [place] [address] documented as of this encounter Procedures Procedure Name Priority Date/Time Associated Diagnosis Comments HEMOGRAM STAT 12/23/2022 9:08 AM EDT Malignant neoplasm of overlapping sites of right breast in female, estrogen receptor negative DIFFERENTIAL, AUTOMATED STAT 12/23/2022 9:08 AM EDT Malignant neoplasm of overlapping sites of right breast in female, estrogen receptor negative CANCER ANTIGEN 15-3 STAT 12/23/2022 9 :08 AM EDT Malignant neoplasm of overlapping sites of right breast in female, estrogen receptor negative CBC (WITH DIFF) STAT 12/23/2022 9:08 AM EDT Malignant neoplasm of overlapping sites of right breast in female, estrogen receptor negative CEA Routine 12/23/2022 9:08 AM EDT Malignant neoplasm of overlapping sites of right breast in female, estrogen receptor negative COMPREHENSIVE METABOLIC PANEL STAT 12/23/2022 9:08 AM EDT Malignant neoplasm of overlapping sites of right breast in female, estrogen receptor negative documented in this encounter Results * Differential, Automated (12/23/2022 9:08 AM EDT) Neutrophil % 65.0 % [facility] Neutrophil Absolute 3.63 1.70 - 6.10 x10(3)/[facility] Lymph % 23.5 % [facility] Lymphocytes Abs 1.3 0.9 - 3.2 x10(3)/[facility] Monocyte % 9.3 % [facility] Monocyte Abs 0.5 0.3 - 0.9 x10(3)/[facility] Eos % 1.1 % [facility] Eosinophils Abs 0.1 0.0 - 0.4 x10(3)/[facility] Basophil % 0.9 % [facility] Baso Absolute 0.0 0.0 - 0.1 x10(3)/[facility] Immature Gran % 0.20 % [facility] Comment: Immature granulocytes(IG's)percentage and absolute count will include metamyelocytes, myelocytes, and promyelocytes. Blood smears from CBCs yielding IG's will be scanned manually for concordance. If this scan disagrees with the automated IG or if promyelocytes are noted, a manual differential will be performed. Immature Gran Absolute 0.01 0.00 - 0.04 x10(3)/[facility] Blood 12/23/2022 9:08 AM EDT 12/23/2022 9:22 AM EDT Narrative Resulting Agency Comment Spec In Lab Dian Guido [facility]AT[facility] ORDERABLE S [facility] [address] * (ABNORMAL) Hemogram (12/23/2022 9:08 AM EDT) White Blood Cell 5.6 4.0 - 9.5 x10(3)/mc L [facility] Red Blood Cell 4.02 4.00 - 5.21 x10(6)/mc L [facility] Hemoglobin 11.9 11.7 - 15.5 g/dL [facility] Hematocrit 36.7 35.7 - 45.8 % [facility] Mean Cell Volume 91.3 82.6 - 94.[address] [facility] Mean Cell Hemoglobin 29.6 27.1 - 32.[address] [facility] Mean Cell Hemoglobin Concentration 32.4 31.7 - 35.0 g/dL [facility] Platelet 261 145 - 357 x10(3)/mc L [facility] RDW Standard Deviation 49.1(H) 37.0 - 46.[address] [facility] RDW coefficient of variation 14.6(H) 11.5 - 14.1 % [facility] Mean Platelet Volume 10.5 7.6 - 12.9 fL [facility] NRBC% auto 0.0 % [facility] NRBC Absolute 0.000 0.000 - 0.000 x10(3)/mc L [facility] Blood 12/23/2022 9:08 AM EDT 12/23/2022 9:22 AM EDT Narrative Resulting Agency Comment Spec In Lab Dian Guido [facility] ORDERABLE S [facility] [place] [address] * (ABNORMAL) Cancer antigen 15-3 (12/23/2022 9:08 AM EDT) CA 15-3 39(H) <=25 unit/mL [facility] Comment: This result was generated using a Deepak Dequan immunoassay. ??Results obtained from other methods or manufacturers cannot be used interchangeably with this method. Blood 12/23/2022 9:08 AM EDT 12/23/2022 9:22 AM EDT Narrative Resulting Agency Comment Spec In Lab Kavitha Rai MD CHEMISTRY ORDERABLES [facility] [place] [address] * (ABNORMAL) Comprehensive metabolic panel (non-fasting) (12/23/2022 9:08 AM EDT) Glucose 107 65 - 199 mg/dL [facility] Comment:Diabetes: >=200 mg/d L plus symptoms Blood Urea Nitrogen 16 8 - 18 mg/dL [facility] Creatinine 0.78 0.70 - 1.20 mg/dL [facility] Sodium 141 135 - 145 mmol/L [facility] Potassium 3.8 3.5 - 5.0 mmol/L [facility] Comment: Please note: ??Patients with WBC >100,000 may have falsely elevated Potassium levels. ??For accurate Potassium quantification in these patients send serum separator tube (gold top) for subsequent determinations. ??Contact the Clinical Chemistry Laboratory if there are any questions. Chloride 108(H) 98 - 107 mmol/L [facility] Carbon Dioxide 25 22 - 31 mmol/L [facility] Anion Gap 8 5 - 15 mmol/L [facility] Calcium 8.5 8.5 - 10.5 mg/dL [facility] Protein, Total 5.7(L) 6.1 - 8.0 g/dL [facility] Albumin 3.5 3.2 - 5.2 g/dL [facility] Aspartate Aminotransferase 18 0 - 30 unit/L [facility] Alanine Aminotransferase 21 0 - 30 unit/L [facility] Alkaline Phosphatase 64 35 - 105 unit/L [facility] Bilirubin, Total 0.3 0.2 - 1.3 mg/dL [facility] Est Glomerular Filtration Rate 96 >=60 mL/min/1. 73 m?? [facility] Comment: This patient's estimated GFR [...] and symptoms in addition to eGFR. Blood 12/23/2022 9:08 AM EDT 12/23/2022 9:22 AM EDT Narrative Resulting Agency Comment Spec In Lab Kavitha Rai MD CHEMISTRY ORDERABLES Performing Organization Address [facility] Co de Phone Number [facility] [address] * CEA (12/23/2022 9:08 AM EDT) Carcinoembryonic Antigen 2.8 <=3.8 ng/mL [facility] Comment: Reference range: ??(20-69 years): Non-smoker: ??less than or equal to 3.8 ng/mL Smoker: ??less than 5.5 ng/ml This result was generated using a Deepak Dequan immunoassay. ??Results obtained from other methods or manufacturers cannot be used interchangeably with this method. Blood 12/23/2022 9:08 AM EDT 12/23/2022 9:22 AM EDT Narrative Resulting Agency Comment Spec In Lab Kavitha Rai MD CHEMISTRY ORDERABLES Performing Organization Address [facility] Co de Phone Number [facility] [address] documented in this encounter Visit Diagnoses Diagnosis Malignant neoplasm of overlapping sites of right breast in female, estrogen receptor negative documented in this encounter Administered Medications Inactive Administered Medications - up to 3 most recent administrations Medication Order MAR Action Action Date Dose Rate Site sodium chloride 0.9 % (flush) (BD PosiFlush Normal Saline 0.9) flush 20 mL 20 mL, Intravenous, ONCE, 1 dose, On Yvette 12/23/22 at 0915, Routine Given 12/23/2022 9:09 AM EDT 20 mLs documented in this encounter Care Teams Trestle Builder Relationship Specialty Start Date End Date Ryan Betancourt MD [address] [place] [phone] PCP - General Family Medicine 07/29/22 documented as of this encounter
--- OUTSIDE RECORDS SUMMARY | 2024-06-01 20:42 | XMS_ITS | Encounter Summary ---
[place] [address] Care Team Providers Care Wallcovering Texturer Name Role Phone Ryan Betancourt MD Primary Care Provider Reason for Visit * Treatment/Therapy Plan Authorization (Routine) - Closed Specialty Diagnoses / Procedures Referred By Contac t Referred To Contact Diagnoses Malignant neoplasm of overlapping sites of right breast in female, estrogen receptor negative Procedures TC PERTUZUMAB, 1 MG, INJECTION [id number] (TRASTUZUMAB-ANNS) Dian Lora PA [facility] [address] [place] [address] Referral ID Status Reason Start Date Expiration Date Visits Re quested Visits Authorized [id number] Closed 12/22/2022 12/22/2023 1 105 Encounter Details Date Type Department Care Team (Latest Contact Info) Description 02/03/2023 10:30 AM EDT - 02/03/2023 10:35 AM EDT Hospital Encounter Hematology [place] [address] Malignant neoplasm of overlapping sites [...] as of this encounter Progress Notes * Ginette Mak RN - 02/03/2023 10:54 AM EDT Patient Name: Soy San Patient Age: 42 y.o. Birthdate: 1980 Admit date: 02/03/2023 Attending Physician: No att. providers found Access visit. See MAR and/or flowsheet. documented in this encounter Plan of Treatment Upcoming Encounters Date Type Department Care Team (Late st Contact Info) Description 06/14/2024 8:00 AM EST Hospital Encounter [place] [address] Consuelo Joyce [facility] [place] [address] 06/14/2024 8:45 AM EST Appointment XRay at [address] [place] [address] Kavitha Rai MD [facility] [address] [place] [address] 06/14/2024 9:45 AM EST Appointment Hematology and Oncology at [place] [phone] 06/14/2024 11:00 AM EST Appointment [place] [address] Consuelo Joyce APRN [facility] [place] [address] 06/14/2024 1:00 PM EST Office Visit Hematology [place] [address] Kavitha Rai MD [facility] [address] [place] [address] 06/14/2024 2:30 PM EST Appointment Hematology [place] [address] 07/05/2024 10:30 AM EDT Appointment Hematology [place] [address] 07/05/2024 11:30 AM EDT Office Visit Hematology [place] [address] Consuelo Joyce APRN [facility] [place] [address] 07/05/2024 1:00 PM EDT Appointment Hematology [place] [address] 08/16/2024 9:20 AM EDT Office [place] [phone] Luz Jose, OD [facility] [place] [address] 01/14/2025 8:30 AM EDT Office Visit Psychiatry [place] [address] Anna Oneill, PhD [facility] [place] [address] documented as of this encounter Procedures Procedure Name Priority Date/Time Associated Diagnosis Comments HEMOGRAM STAT 02/03/2023 10:55 AM EDT Malignant neoplasm of overlapping sites of right breast in female, estrogen receptor negative DIFFERENTIAL, AUTOMATED STAT 02/03/2023 10:55 AM EDT Malignant neoplasm of overlapping sites of right breast in female, estrogen receptor negative CANCER ANTIGEN 15-3 STAT 02/03/2023 1 0:55 AM EDT Malignant neoplasm of overlapping sites of right breast in female, estrogen receptor negative CBC (WITH DIFF) STAT 02/03/2023 10:55 AM EDT Malignant neoplasm of overlapping sites of right breast in female, estrogen receptor negative COMPREHENSIVE METABOLIC PANEL STAT 02/03/2023 10:55 AM EDT Malignant neoplasm of overlapping sites of right breast in female, estrogen receptor negative documented in this encounter Results * (ABNORMAL) Differential, Automated (02/03/2023 10:55 AM EDT) Neutrophil % 57.5 % [facility] Neutrophil Absolute 2.91 1.70 - 6.10 x10(3)/mc L [facility] Lymph % 32.3 % [facility] Lymphocytes Abs 1.6 0.9 - 3.2 x10(3)/mc L [facility] Monocyte % 4.8 % [facility] Monocyte Abs 0.2(L) 0.3 - 0.9 x10(3)/mc L [facility] Eos % 4.8 % [facility] Eosinophils Abs 0.2 0.0 - 0.4 x10(3)/[facility] Basophil % 0.4 % [facility] Baso Absolute 0.0 0.0 - 0.1 x10(3)/[facility] Immature Gran % 0.20 % [facility] Comment: Immature granulocytes(IG's)percentage and absolute count will include metamyelocytes, myelocytes, and promyelocytes. Blood smears from CBCs yielding IG's will be scanned manually for concordance. If this scan disagrees with the automated IG or if promyelocytes are noted, a manual differential will be performed. Immature Gran Absolute 0.01 0.00 - 0.04 x10(3)/[facility] Blood 02/03/2023 10:5 5 AM EDT 02/03/2023 11:17 AM EDT Narrative Resulting Agency Comment Spec In Lab Laverne MINA HEMATOLOGY ORDERABLE S [facility] [place] [address] * Hemogram (02/03/2023 10:55 AM EDT) White Blood Cell 5.0 4.0 - 9.5 x10(3)/[facility] Red Blood Cell 4.74 4.00 - 5.21 x10(6)/[facility] Hemoglobin 13.2 11.7 - 15.5 g/dL [facility] Hematocrit 40.5 35.7 - 45.8 % [facility] Mean Cell Volume 85.4 82.6 - 94.4 fL [facility] Mean Cell Hemoglobin 27.8 27.1 - 32.0 pg [facility] Mean Cell Hemoglobin Concentration 32.6 31.7 - 35.0 g/dL [facility] Platelet 252 145 - 357 x10(3)/[facility] RDW Standard Deviation 39.2 37.0 - 46.0 fL [facility] RDW coefficient of variation 12.5 11.5 - 14.1 % [facility] Mean Platelet Volume 10.7 7.6 - 12.9 fL [facility] NRBC% auto 0.0 % [facility] NRBC Absolute 0.000 0.000 - 0.000 x10(3)/mcL [facility] Blood 02/03/2023 10:5 5 AM EDT 02/03/2023 11:17 AM EDT Narrative Resulting Agency Comment Spec In Lab Laverne MINA HEMATOLOGY ORDERABLE S Performing Organization Address City/[facility] Co de Phone Number [facility] [place] [address] * (ABNORMAL) Cancer antigen 15-3 (02/03/2023 10:55 AM EDT) CA 15-3 29(H) <=25 unit/mL [facility] Comment: This result was generated using a Deepak Dequan immunoassay. ??Results obtained from other methods or manufacturers cannot be used interchangeably with this method. Blood 02/03/2023 10:5 5 AM EDT 02/03/2023 11:17 AM EDT Narrative Resulting Agency Comment Spec In Lab Opal Barnes MD CHEMISTRY ORDERABLES Performing Organization Address [facility] Co de Phone Number [facility] [place] [address] * Comprehensive metabolic panel (non-fasting) (02/03/2023 10:55 AM EDT) Glucose 104 65 - 199 mg/dL [facility] Comment:Diabetes: >=200 mg/d L plus symptoms Blood Urea Nitrogen 13 8 - 18 mg/dL [facility] Creatinine 0.77 0.70 - 1.20 mg/dL [facility] Sodium 142 135 - 145 mmol/L [facility] Potassium 3.7 3.5 - 5.0 mmol/L [facility] Comment: Please note: ??Patients with WBC >100,000 may have falsely elevated Potassium levels. ??For accurate Potassium quantification in these patients send serum separator tube (gold top) for subsequent determinations. ??Contact the Clinical Chemistry Laboratory if there are any questions. Chloride 107 98 - 107 mmol/L [facility] Carbon Dioxide 25 22 - 31 mmol/L [facility] Anion Gap 10 5 - 15 mmol/L [facility] Calcium 9.5 8.5 - 10.5 mg/dL [facility] Protein, Total 6.7 6.1 - 8.0 g/dL [facility] Albumin 4.0 3.2 - 5.2 g/dL [facility] Aspartate Aminotransferase 20 0 - 30 unit/L [facility] Alanine Aminotransferase 30 0 - 30 unit/L [facility] Alkaline Phosphatase 97 35 - 105 unit/L [facility] Bilirubin, Total 0.3 0.2 - 1.3 mg/dL [facility] Est Glomerular Filtration Rate 97 >=60 mL/min/1. 73 m?? [facility] Comment: This patient's estimated GFR was [...] and symptoms in addition to eGFR. Blood 02/03/2023 10:5 5 AM EDT 02/03/2023 11:17 AM EDT Narrative Resulting Agency Comment Spec In Lab Opal Barnes MD CHEMISTRY ORDERABLES [facility] [place] [address] documented in this encounter Visit Diagnoses Diagnosis [...] EVERY 1 MIN PRN, Starting on Yvette 02/03/23 at 1036, Until Tue02/04/23 at 0435, Line Care, Flush pertains to all indwelling lines. Flush per protocol found in the job aid using the link provided on this medication record. Refer to Intravenous (IV) Job Aid: Adult Flushing & Catheter Care (9314) job aid for additional information regarding guidelines and administration., Routine Given 02/03/2023 10:54 AM EDT 20 mLs documented in this encounter Care Teams Wallcovering Texturer Relationship Specialty Start Date End Date Ryan Betancourt MD [address] [place] [phone] PCP - General Family Medicine 07/29/22 documented as of this encounter
--- OUTSIDE RECORDS SUMMARY | 2024-06-01 20:42 | XMS_ITS | Encounter Summary ---
[place] [address] Care Team Providers Care Second Worker Name Role Phone Ryan Betancourt MD Primary Care Provider [phone] Reason for Visit * Treatment/Therapy Plan Authorization (Routine) - Closed Specialty Diagnoses / Procedures Referred By Contac t Referred To Contact Diagnoses Malignant neoplasm of overlapping sites of right breast in female, estrogen receptor negative Procedures TC PERTUZUMAB, 1 MG, INJECTION [id number] (TRASTUZUMAB-ANNS) Dian Lora PA [facility] [address] [place] [address] Referral ID Status Reason Start Date Expiration Date Visits Re quested Visits Authorized [id number] Closed 12/22/2022 12/22/2023 1 105 Encounter Details Date Type Department Care Team (Latest Contact Info) Description 03/17/2023 11:40 AM EST - 03/17/2023 11:59 PM [facility] Hospital Encounter Hematology [place] [address] Malignant neoplasm of overlapping sites [...] Progress Notes * Ginette Mak RN - 03/17/2023 5:16 PM EST Patient Name: Soy San Patient Age: 42 y.o. Birthdate: 1980 Admit date: 03/17/2023 Attending Physician: No att. providers found Soy San, 42 y.o. female with diagnosis of breast cancer is here for chemotherapy infusion of Perjeta/Kanjinti. PROTOCOL: n/a CYCLE: 2 DAY: 22 S: Pt. offers no complaints at this time. Reviewed plan of care for infusion visit, patient verbalized understanding of plan as outlined. O: Chemotherapy orders independently verified for correct drug name, route and dosage per patient'sheight, weight and BSA by Ginette Mak RN, RN and onsite pharmacist. Chemotherapy administered per [...] AM EST Hospital En[place] [address] Consuelo Joyce APRN [facility] [place] [address] 06/14/2024 8:45 AM EST Appointment XRay at [address] [place] [phone] Kavitha Rai MD [facility] DR [place]EMATOLOGY [place] [address] 06/14/2024 9:45 AM EST Appointment Hematology and Oncology at [place] [phone] 06/14/2024 11:00 AM EST Appointment Nuclear Medicine at [address] Consuelo Joyce [facility] [place] [address] 06/14/2024 1:00 PM EST Office Visit Hematology and Oncology at [place] [phone] Kavitha Rai MD [facility] DR [place]EMATOLOGY [place] [address] 06/14/2024 2:30 PM EST Appointment Hematology and Oncology at [place] [phone] 07/05/2024 10:30 AM EDT Appointment Hematology [place] [address] 07/05/2024 11:30 AM EDT Office Visit Hematology and Oncology at [place] [phone] Consuelo Joyce APRN [facility] MEDICAL [place] [address] 07/05/2024 1:00 PM EDT Appointment Hematology [place] [phone] 08/16/2024 9:20 AM EDT Office [place] [address] Luz Jose, OD [facility] OPHTHALMOLOGY [place] [address] 01/14/2025 8:30 AM EDT Office Visit Psychiatry and [place] [address] Anna Oneill, PhD [facility] OPHTHALMOLOG[place] [address] documented as of this encounter Results * (ABNORMAL) Cancer antigen 15-3 (03/17/2023 11:56 AM EST) [facility] CA 15-3 30(H) <=25 unit/mL [facility] Comment: This result was generated using a Deepak Dequan immunoassay. ??Results obtained from other methods or manufacturers cannot be used interchangeably with this method. Blood 03/17/2023 11:5 6 AM EST 03/17/2023 12:06 PM EST Narrative Resulting Agency Comment Spec In Lab Kavitha Rai MD CHEMISTRY ORDERABLES [facility] [place] [address] * (ABNORMAL) Comprehensive metabolic panel (non-fasting) (03/17/2023 11:56 AM EST) [facility] Glucose 107 65 - 199 mg/dL [facility] Comment:Diabetes: >=200 mg/d L plus symptoms Blood Urea Nitrogen 15 8 - 18 mg/dL [facility] Creatinine 0.67(L) 0.70 - 1.20 mg/dL [facility] Sodium 142 135 - 145 mmol/L [facility] Potassium 3.7 3.5 - 5.0 mmol/L [facility] Comment: Please note: ??Patients with WBC >100,000 may have falsely elevated Potassium levels. ??For accurate Potassium quantification in these patients send serum separator tube (gold top) for subsequent determinations. ??Contact the Clinical Chemistry Laboratory if there are any questions. Chloride 107 98 - 107 mmol/L [facility] Carbon Dioxide 24 22 - 31 mmol/L [facility] Anion Gap 11 5 - 15 mmol/L [facility] Calcium 8.9 8.5 - 10.5 mg/dL [facility] Protein, Total 6.7 6.1 - 8.0 g/dL [facility] Albumin 4.2 3.2 - 5.2 g/dL [facility] Aspartate Aminotransferase 20 0 - 30 unit/L [facility] Alanine Aminotransferase 22 0 - 30 unit/L [facility] Alkaline Phosphatase 115(H) 35 - 105 unit/L [facility] Bilirubin, Total 0.3 0.2 - 1.3 mg/dL [facility] Est Glomerular Filtration Rate 110 >=60 mL/min/1. 73 m?? [facility] Comment: This patient's estimated GFR was [...] In Lab Kavitha Rai MD CHEMISTRY ORDERABLES [facility] [place] [address] documented in this encounter Visit Diagnoses Diagnosis [...] mg, Intravenous, ONCE, 1 dose, On Yvette 03/17/23 at 1615, Administer over 30 Minutes, This agent is restricted to outpatient use. Is this drug being given as an outpatient? Yes New Bag 03/17/2023 3:34 PM EST 420 mg 528 mL/hr sodium chloride 0.9% infusion 200 mL/hr, Intravenous, ONCE, 1 dose, On Yvette 03/17/23 at 1515 New Bag 03/17/2023 3:34 PM EST 200 mL/hr 200 mL/hr TRASTuzumab-anns (Kanjinti) 620 mg in sodium chloride 0.9% 279.55 mL infusion 620 mg (rounded from 620.4 mg = 6 mg/kg/dose ? 103.4 kg Treatment plan Recorded weight), Intravenous, ONCE, 1 dose, On Yvette 03/17/23 at 1615, Administer over 30 Minutes, Incompatible in D5W, This agent is restricted to outpatient use. Is this drug being given as an outpatient? Yes New Bag 03/17/2023 4:38 PM EST 620 mg 559.1 mL/hr documented in this encounter Care Teams Second Worker Relationship Specialty Start Date End Date Ryan Betancourt MD [address] [place] [phone] PCP - General Family Medicine 07/29/22 documented as of this encounter
--- OUTSIDE RECORDS SUMMARY | 2024-06-01 20:42 | XMS_ITS | Encounter Summary ---
[place] [address] Care Team Providers Care Computer Support Specialist Name Role Phone Ryan Betancourt MD Primary Care Provider Reason for Referral * Diagnostic Test (Routine) - Closed Specialty Diagnoses / Procedures Referred By Ciaran lopez Referred To Contact Cardiology Diagnoses Malignant neoplasm of overlapping sites of breast in female, estrogen receptor negative, unspecified laterality Procedures Echocardiogram Transthoracic Mario Hernandez PA [facility] DR HEMATOLOGY AND ONCOLOGY [place], [place] [id number] [place] [address] [place] [address] Referral ID Status Reason Start Date Expiration Date V isits Requested Visits Authorized [id number] Closed Specialty Service Requested 12/24/2022 12/24/2023 1 1 Reason for Visit * Reason Comments Follow-up Encounter Details Date Type Department Care Team (Late st Contact Info) Description 12/23/2022 10:00 AM EDT Office Visit H[place] [address] Mario Hernandez PA Malignant neoplasm of overlapping sites of breast in female, estrogen receptor negative, unspecified laterality Social History Tobacco Use Types Packs/Day Years [...] Sign Reading Time Taken Comments Blood Pressure 129/83 12/23/2022 10:09 AM EDT Pulse 79 12/23/2022 10:09 AM EDT Temperature 36.2 ??C (97.2 ??F) 12/23/2022 10:09 AM E DT Respiratory Rate 20 12/23/2022 10:09 AM EDT Oxygen Saturation 98% 12/23/2022 10:09 AM EDT Inhaled Oxygen Concentration - - Weight 104.1 kg (229 lb 8 oz) 12/23/2022 10:09 A M EDT Height 163.9 cm (5' 4.53) 12/23/2022 10:09 AM E DT Body Mass Index 38.75 12/23/2022 10:09 AM EDT documented in this encounter Progress Notes * Mario Hernandez PA - 12/23/2022 10:00 AM EDT Soy Hernandezy Theodore Mena is a 42 y.o. female with presumed stage 4 HER 2 alexa enriched breast cancer,now s/p 6 cycles of THP presents for scheduled follow-up and to receive H&P. 12/23/22 Feels well. States last cycle of [...] 1st & 2nd week following infusion. Saw [facility] this morning who made recommendations [...] After THP #1, she went to a [employer], ate half a salad. This was fine. 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 Negative for chills, fatigue and fever. HENT: Negative. Eyes: Negative. Respiratory: Negative. Negative for cough, dizziness on exertion and shortness of breath. Cardiovascular: Negative. Negative for chest pain and leg swelling. Gastrointestinal: see interval history. Endocrine: Negative. Genitourinary: Negative. Musculoskeletal: Negative. Skin: Negative. Rash resolved. Neurological: Negative. Hematological: Negative. Psychiatric/Behavioral: Negative. All other systems reviewed and are negative. Physical Exam: Patient Vitals for the past 24 hrs: Temp Pulse Resp BP SpO2 12/23/22 1009 36.2 ??C (97.2 ??F) 79 20 129/83 98 % Wt Readings from Last 3 Encounters: 12/23/22 104.1 kg (229 lb 8 oz) 12/02/22 103.4 kg (227 lb 15.3 oz) 11/11/22 104 kg (229 lb 4.5 oz) Constitutional: She is oriented to person, place, [...] normal. Skin: Skin is warm and dry. Psychiatric: She has a normal mood and affect. Her behavior is normal. Results: Lab Results Component Value Date WBC 5.6 12/23/2022 HGB 11.9 12/23/2022 HCT 36.7 12/23/2022 MCV 91.3 12/23/2022 PLATELET 261 12/23/2022 Lab Results Component Value Date NEUTROABS 3.63 12/23/2022 Lab Results Component Value Date NA 141 12/23/2022 K 3.8 12/23/2022 CL 108 (H) 12/23/2022 CO2 25 12/23/2022 BUN 16 12/23/2022 CREATININE 0.78 12/23/2022 GLUCOSE 107 12/23/2022 CALCIUM 8.5 12/23/2022 ESTGFR 96 12/23/2022 Lab Results Component Value Date ALT 21 12/23/2022 AST 18 12/23/2022 ALKPHOS 64 12/23/2022 BILITOT 0.3 12/23/2022 ALBUMIN 3.5 12/23/2022 PROT 5.7 (L) 12/23/2022 CEA (ng/mL) Date Value 12/23/2022 2.8 11/11/2022 3.4 10/21/2022 2.8 09/30/2022 3.5 09/09/2022 5.1 (H) CA 15-3 (unit/mL) Date Value 12/23/2022 39 (H) 12/02/2022 42 (H) 11/11/2022 45 (H) 10/21/2022 45 (H) 09/30/2022 48 (H) A/P: Soy San is a 42 y.o. 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 She is s/p a right breast and axillarybiopsy. She has completed 6 cycles of THP (Ruthy regimen) given the high pre-test probability of her having metastatic disease. Bone & liver bx negative though these were obtained after she began chemo. She has had an excellent clinical response to therapy. Breast Cancer: she's completed 6 cycles of THP, now on H&P. Excellent clinical response with decreasing markers and resolved pain and breast mass. Breast MRI scheduled for 01/11 to assist in assesment. Case to be presented at tumor board. Has dental alondra on Jan 03. Will plan to start denusomab after that visit. Pt aware. Needs repeat 2D echo, ordered today. RTC 3 weeks for H&P. Future Appointments Date Time Provider Department Center 12/23/2022 12:00 PM LEB INFUSION THERAPY [facility] INF 3K [facility] 01/11/2023 5:30 PM [facility] MR 6 MH MRI [facility] Rad 01/13/2023 12:45 PM ACCESS ROOM [facility] INF [address] [place] [address] 01/13/2023 1:30 PM Laverne Redding PA [facility] HEM ONC [facility] 01/13/2023 3:00 PM LEB INFUSION THERAPY [facility] INF [address] [place] [address] 02/03/2023 10:30 AM ACCESS ROOM [address] 02/03/2023 11:30 AM Laverne Redding PA [facility] HEM ONC [facility] 02/03/2023 1:00 PM LEB INFUSION THERAPY [facility] INF [address] [place] [address] 02/24/2023 12:15 PM ACCESS ROOM [facility] INF [address] [place] [address] 02/24/2023 1:20 PM Kavitha Rai MD [facility] HEM ONC [facility] 02/24/2023 3:00 PM LEB INFUSION THERAPY [facility] INF [address] [place] [address] 03/17/2023 12:30 PM ACCESS ROOM [facility] INF [address] [place] [address] 03/17/2023 1:20 PM Kavitha Rai MD [facility] HEM ONC [facility] 03/17/2023 3:00 PM LEB INFUSION THERAPY [facility] INF [address] [place] [address] 04/07/2023 12:00 PM ACCESS ROOM [address] 04/07/2023 1:00 PM Kavitha Rai MD [facility] HEM ONC [facility] 04/07/2023 2:30 PM LEB INFUSION THERAPY [address] Mario Hernandez PA-C Breast Medical Oncology [facility] documented in this encounter Miscellaneous Notes * Addendum Note - Mario Hernandez PA - 12/23/2022 10:00 AM EDTAddended by: MARIO HERNANDEZ on: 12/24/2022 01:42 PM Modules accepted: Orders documented in this encounter Plan of Treatment Upcoming Encounters Date Type Department Care Team (Late st Contact Info) Description 06/14/2024 8:00 AM EST Hospital En[place] [address] Consuelo Joyce APRN [facility] [place] [address] 06/14/2024 8:45 AM EST Appointment XRay at [address] [place] [address] Kavitha Rai MD [facility] DR HEMATOLOGY [place] [address] 06/14/2024 9:45 AM EST Appointment Hematology and Oncology at [address] 06/14/2024 11:00 AM EST Appointment Nuclear Medicine at [place] [phone] Consuelo Joyce APRN [facility] [place] [address] 06/14/2024 1:00 PM EST Office Visit Hematology [place] [address] Kavitha Rai MD [facility] DR HEMAT[place] [address] 06/14/2024 2:30 PM EST Appointment Hematology [place] [address] 07/05/2024 10:30 AM EDT Appointment Hematology [place] [address] 07/05/2024 11:30 AM EDT Office Visit Hematology [place] [address] Consuelo Joyce APRN [facility] [place] [address] 07/05/2024 1:00 PM EDT Appointment Hematology and Oncology at [place] [phone] 08/16/2024 9:20 AM EDT Office Visit Ophthalmology at [place] [phone] Luz Jose, OD [facility] [place] [address] 01/14/2025 8:30 AM EDT Office Visit Psychiatry [place] [address] Anna Oneill, PhD [facility] [place] [address] documented as of this encounter Results * ECHO COMPLETE (03/17/2023 11:29 AM EST) Anatomical Region Laterality Modality Cardiac Other 03/17/2023 10:4 0 AM EST Narrative 03/17/2023 11:39 AM EST [address] [place] [address] ? Echocardiogram Report Name: SOY SAN ?Study Date: 03/17/2023 10:40 AMBP: 122/69 mmHg ? Patient Location: 4A : 1980 ? Height: 163 cm ? Account: [id number] Age: 42 yrs ? Weight: 101 kg Gender: Female ?BSA: 2.1 m2 Ordering Physician: KAVITHA RAI Referring Physician: KAVITHA RAI Performed By: Jacqui Zamudio RDCS Reason For Study: Malignant neoplasm of overlapping sites of breast in female, estrogen receptor negative Exam Location: [facility]. Interpretation Summary Left ventricular size and systolic function is normal. Wall thickness is normal. There are no segmental wall motion abnormalities. The left ventricular ejection fraction is 61% by 3D volumetric assessment. The right ventricle is of normal size. Right ventricular systolic function is normal. Procedure Complete-74712. 3D - 56348. Left ventricular strain. Satisfactory quality. There is [...] Note Deo Shelby MD - 03/17/2023 1 [place] [id number] Echocardiogram Report Name: SOY SAN Study Date: 0:40 AMBP: 122/69 mmHg Patient Location: : 1980 Height: 163 cm Account: [id number] Age: 42 yrs Weight: 101 kg Gender: Female BSA: 2.1 m2 Ordering Physician: KAVITHA RAI Referring Physician: KAVITHA RAI Performed By: Jacqui Zamudio RDCS Reason For Study: Malignant neoplasm of overlapping sites of breast infemale, estrogen receptor negative Exam Location: [facility]. Interpretation Summary Left ventricular size and systolic function is normal. Wall thickness isnormal. There are no segmental wall motion abnormalities. The left ventricularejection fraction is 61% by 3D volumetric assessment. The right ventricle is of normal size. Right ventricular systolic functionis normal. Procedure Complete-85027. 3D - 40114. Left ventricular strain. Satisfactory quality.There is normal [...] in female, estrogen receptor negative, unspecified laterality Malignant neoplasm of overlapping sites of breast in female, estrogen receptor negative, unspecified laterality documented in this encounter Care Teams Computer Support Specialist Relationship Specialty Start Date End Date Ryan Betancourt MD [address] [place] [phone] PCP - General Family Medicine 07/29/22 documented as of this encounter
--- OUTSIDE RECORDS SUMMARY | 2024-06-01 20:42 | XMS_ITS | Encounter Summary ---
Author Organization [facility] Address [facility] [place] [address] Care Team Providers Care Laborer Carpentry Dock Name Role Phone Ryan Betancourt MD Primary Care Provider [phone] Encounter Details Date Type Department Care Team (Latest Contact Info) Description 12/23/2022 Travel Social History Tobacco Use Types Packs/Day [...] AM EST Hospital Encounter [place] [address] Consuelo Joyce APRN [facility] [place] [address] 06/14/2024 8:45 AM EST Appointment XRay at [address] [place] [address] Kavitha Rai MD [facility] DR HEMATOLOGY [place] [address] 06/14/2024 9:45 AM EST Appointment Hematology [place] [address] 06/14/2024 11:00 AM EST Appointment [place] [address] Consuelo Joyce APRN [facility] [place] [address] 06/14/2024 1:00 PM EST Office Visit Hematology [place] [address] Kavitha Rai MD [facility] HEMATOLOGY [place] [address] 06/14/2024 2:30 PM EST Appointment Hematology [place] [address] 07/05/2024 10:30 AM EDT Appointment Hematology and Oncology at [place] [phone] 07/05/2024 11:30 AM EDT Office Visit Hematology and Oncology at [place] [phone] Consuelo Joyce APRN [facility] [place] [address] 07/05/2024 1:00 PM EDT Appointment Hematology and Oncology at [place] [address] 08/16/2024 9:20 AM EDT Office Visit Ophthalmology at [place] [phone] Luz Jose, OD [facility] [place] [address] 01/14/2025 8:30 AM EDT Office Visit Psychiatry and Behavioral Health at [place] [address] Anna Oneill, PhD [facility] [place] [address] documented as of this encounter Visit Diagnoses Not on filedocumented in this encounter Care Teams Laborer Carpentry Dock Relationship Specialty Start Date End Date Ryan Betancourt MD [address] [place] [phone] PCP - General Family Medicine 07/29/22 documented as of this encounter
--- OUTSIDE RECORDS SUMMARY | 2024-06-01 20:42 | XMS_ITS | Encounter Summary ---
Author Organization [facility] Address [facility] [place] [address] Care Team Providers Care Drier Feeder Name Role Phone Ryan Betancourt MD Primary Care Provider [phone] Encounter Details Date Type Department Care Team (Late st Contact Info) Description 02/01/2023 Orders Only Hematology [place] [address] Laverne Redding PA [facility] [place] [address] Malignant neoplasm of overlapping sites of right [...] AM EST Hospital Encounter [place] [address] Consuelo Joyce [facility] [place] [address] 06/14/2024 8:45 AM EST Appointment XRay at [address] [place] [address] Kavitha Rai MD [facility] [place] [address] 06/14/2024 9:45 AM EST Appointment Hematology [place] [address] 06/14/2024 11:00 AM EST Appointment [place] [address] Consuelo Joyce [facility] [place] [address] 06/14/2024 1:00 PM EST Office Visit Hematology [place] [address] Kavitha Rai MD [facility] [place] [address] 06/14/2024 2:30 PM EST Appointment Hematology [place] [address] 07/05/2024 10:30 AM EDT Appointment Hematology and Oncology at [place] [address] 07/05/2024 11:30 AM EDT Office Visit Hematology and Oncology at [place] [phone] Consuelo Joyce APRN [facility] [place] [address] 07/05/2024 1:00 PM EDT Appointment Hematology and Oncology at [place] [phone] 08/16/2024 9:20 AM EDT Office Visit Ophthalmology at [place] [phone] Luz Jose, CARSON [facility] [place] [address] 01/14/2025 8:30 AM EDT Office Visit Psychiatry and Behavioral Health at [place] [phone] Anna Oneill, PhD [facility] [place] [address] documented as of this encounter Results * (ABNORMAL) Cancer antigen 15-3 (02/03/2023 10:55 AM EDT) [facility] Signature CA 15-3 29(H) <=25 unit/mL [facility] Comment: This result was generated using a Deepak Dequan immunoassay. ??Results obtained from other methods or manufacturers cannot be used interchangeably with this method. Blood 02/03/2023 10:5 5 AM EDT 02/03/2023 11:17 AM EDT Narrative Resulting Agency Comment Spec In Lab Opal Barnes MD CHEMISTRY ORDERABLES [facility] [place] [address] * Comprehensive metabolic panel (non-fasting) (02/03/2023 10:55 AM EDT) Glucose 104 65 - 199 mg/dL [facility] Comment:Diabetes: >=200 mg/d L plus symptoms Blood Urea Nitrogen 13 8 - 18 mg/dL [facility] Creatinine 0.77 0.70 - 1.20 mg/dL [facility] Sodium 142 135 - 145 mmol/L [facility] Potassium 3.7 3.5 - 5.0 mmol/L [facility] Comment: Please note: ??Patients with WBC >100,000 may have falsely elevated Potassium levels. ??For accurate Potassium quantification in these patients send serum separator tube (gold top) for subsequent determinations. ??Contact the Clinical Chemistry Laboratory if there are any questions. Chloride 107 98 - 107 mmol/L [facility] Carbon Dioxide 25 22 - 31 mmol/L [facility] Anion Gap 10 5 - 15 mmol/L [facility] Calcium 9.5 8.5 - 10.5 mg/dL [facility] Protein, Total 6.7 6.1 - 8.0 g/dL [facility] Albumin 4.0 3.2 - 5.2 g/dL [facility] Aspartate Aminotransferase 20 0 - 30 unit/L [facility] Alanine Aminotransferase 30 0 - 30 unit/L [facility] Alkaline Phosphatase 97 35 - 105 unit/L [facility] Bilirubin, Total 0.3 0.2 - 1.3 mg/dL [facility] Est Glomerular Filtration Rate 97 >=60 mL/min/1. 73 m?? [facility] Comment: This patient's estimated GFR [...] In Lab Opal Barnes MD [place] [address] documented in this encounter Visit Diagnoses Diagnosis Malignant neoplasm of overlapping sites of right breast in female, estrogen receptor negative documented in this encounter Care Teams Drier Feeder Relationship Specialty Start Date End Date Ryan Betancourt MD [address] [place] [phone] PCP - General Family Medicine 07/29/22 documented as of this encounter
--- OUTSIDE RECORDS SUMMARY | 2024-06-01 20:42 | XMS_ITS | Encounter Summary ---
[place] [address] Care Team Providers Care Design Drafter Name Role Phone Ryan Betancourt MD Primary Care Provider [phone] Reason for Visit * Reason Comments Chemotherapy * Treatment/Therapy Plan Authorization (Routine) - Closed Specialty Diagnoses / Procedures Referred By Contac t Referred To Contact Diagnoses Malignant neoplasm of overlapping sites of right breast in female, estrogen receptor negative Procedures TC PERTUZUMAB, 1 MG, INJECTION [id number] (TRASTUZUMAB-ANNS) Dian Lora PA [facility] [address] [place] [address] Referral ID Status Reason Start Date Expiration Date Visits Re quested Visits Authorized [id number] Closed 12/22/2022 12/22/2023 1 105 Encounter Details Date Type Department Care Team (Latest Contact Info) Description 12/23/2022 8:18 AM EDT - 12/23/2022 11:59 PM EDT Hospital Encounter Hematology [place] [address] Malignant neoplasm of overlapping sites [...] for 2 weeks as needed. 30 g 12/09/2022 12/30/2023 hydrocortisone 2.5 % Cream Mix equal amounts of both creams and apply mixture topically to affected areas on the pannus, feet and breasts twice daily for 2 weeks as needed. 30 g 12/09/2022 12/30/2023 omeprazole (PriLOSEC) [address] [...] as of this encounter Progress Notes * Annabelle Ortega RN - 12/23/2022 12:27 PM EDT Patient Name: Soy San Patient Age: 42 y.o. Birthdate: 1980 Admit date: 12/23/2022 Attending Physician: No att. providers found TIME TREATMENT STARTED: 1215 TIME TREATMENT ENDED: 1437 Soy San, 42 y.o. female with diagnosis of breast cancer is here for chemotherapy infusion of perjeta/trastuzumab. CYCLE: 1 DAY: 1 S: Pt. offers no complaints at this time. O: Chemotherapy orders independently verified for correct drug name, route and dosage per patient'sheight, weight and BSA by annabelle ortega RN and onsite pharmacist REACTIONS (DESCRIPTION, TIME, INTERVENTION AND EFFECTIVENESS) none A: Pt. Tolerated treatment well. Soy San confirms that all questions and issues have been addressed. P: Return to clinic as advised documented in this encounter Plan of Treatment Upcoming Encounters Date Type Department Care Team (Late st Contact Info) Description 06/14/2024 8:00 AM EST Hospital Encounter [place] [address] Sacks, Consuelo L, [facility] [place] [address] 06/14/2024 8:45 AM EST Appointment XRay at [address] [place] [address] Kavitha Rai MD [facility] DR [place] [address] 06/14/2024 9:45 AM EST Appointment Hematology [place] [address] 06/14/2024 11:00 AM EST Appointment Nuclear Medicine at [place] [phone] Consuelo Joyce [facility] [place] [address] 06/14/2024 1:00 PM EST Office Visit Hematology [place] [address] Kavitha Rai MD [facility] DR [place] [address] 06/14/2024 2:30 PM EST Appointment Hematology [place] [address] 07/05/2024 10:30 AM EDT Appointment Hematology [place] [address] 07/05/2024 11:30 AM EDT Office Visit Hematology [place] [address] Consuelo Joyce [facility] [place] [address] 07/05/2024 1:00 PM EDT Appointment Hematology [place] [address] 08/16/2024 9:20 AM EDT Office [place] [address] Luz Jose, OD [facility] [place] [address] 01/14/2025 8:30 AM EDT Office Visit Psychiatry [place] [address] Anna Oneill, PhD [facility] [place] [place] [address] documented as of this encounter Visit Diagnoses [...] Units, Intravenous, ONCE PRN, Starting on Yvette 12/23/22 at 1125, Until Tue12/24/22 at 0436, Line Care, Refer to Intravenous (IV) Procedure: Accessing Implanted Vascular Access Devices (150) procedure and/or Intravenous (IV) Job Aid: Adult Flushing & Catheter Care (0724) job aid for additional information regarding guidelines and administration., Routine Given 12/23/2022 2:49 PM EDT 500 Units PERTuzumab (Perjeta) 420 mg in sodium chloride 0.9% 264 mL infusion 420 mg, Intravenous, ONCE, 1 dose, On Yvette 12/23/22 at 1245, Administer over 30 Minutes, This agent is restricted to outpatient use. Is this drug being given as an outpatient? Yes New Bag 12/23/2022 12:51 PM EDT 420 mg 528 mL/hr Implanted Port sodium chloride 0.9 % (flush) (BD PosiFlush Normal Saline 0.9) flush 5-20 mL 5-20 mL, Intravenous, EVERY 1 MIN PRN, Starting on Yvette 12/23/22 at 1125, Until Tue12/24/22 at 0436, Line Care, Flush pertains to all indwelling lines. Flush per protocol found in the job aid using the link provided on this medication record. Refer to Intravenous (IV) Job Aid: Adult Flushing & Catheter Care (2520) job aid for additional information regarding guidelines and administration., Routine Given 12/23/2022 2:48 PM EDT 20 mLs sodium chloride 0.9% infusion 200 mL/hr, Intravenous, ONCE, 1 dose, On Yvette 12/23/22 at 1145 New Bag 12/23/2022 12:44 PM EDT 200 mL/hr 200 mL/hr TRASTuzumab-anns (Kanjinti) 620 mg in sodium chloride 0.9% 279.55 mL infusion 620 mg (rounded from 620.4 mg = 6 mg/kg/dose ? 103.4 kg Treatment plan Recorded weight), Intravenous, ONCE, 1 dose, On Yvette 12/23/22 at 1245, Administer over 30 Minutes, Incompatible in D5W, This agent is restricted to outpatient use. Is this drug being given as an outpatient? Yes New Bag 12/23/2022 2:07 PM EDT 620 mg 559.1 mL/hr documented in this encounter Care Teams Design Drafter Relationship Specialty Start Date End Date Ryan Betancourt MD [address] [place] [phone] PCP - General Family Medicine 07/29/22 documented as of this encounter
--- OUTSIDE RECORDS SUMMARY | 2024-06-01 20:42 | XMS_ITS | Encounter Summary ---
[place] [address] Care Team Providers Care Heating And Ventilation Engineer Name Role Phone Ryan Betancourt MD Primary Care Provider [phone] Reason for Visit * Treatment/Therapy Plan Authorization (Routine) - Closed Specialty Diagnoses / Procedures Referred By Contac t Referred To Contact Diagnoses Malignant neoplasm of overlapping sites of right breast in female, estrogen receptor negative Procedures TC PERTUZUMAB, 1 MG, INJECTION [id number] (TRASTUZUMAB-ANNS) Dian Lora PA [facility] [address] [place] [address] Referral ID Status Reason Start Date Expiration Date Visits Re quested Visits Authorized [id number] Closed 12/22/2022 12/22/2023 1 105 Encounter Details Date Type Department Care Team (Latest Contact Info) Description 02/24/2023 11:55 AM EST - 02/24/2023 11:59 PM EST Hospital Encounter [place]ology [place] [address] Malignant neoplasm of overlapping sites [...] for Nausea. 30 tablet 3 10/04/2022 05/03/2024 oxyCODONE-acetaminophen (Percocet) 5-325 mg tablet Take 1 tablet by mouth every 4 hours as needed for Pain. 90 tablet 09/23/2022 03/17/2023 documented as of this encounter Progress Notes * Serenity Cespedes RN - 02/24/2023 3:14 PM EST Patient Name: Soy San Patient Age: 42 y.o. Birthdate: 1980 Admit date: 02/24/2023 Attending Physician: Alexia att. providers found TIME TREATMENT STARTED: 1430 TIME TREATMENT ENDED: 1648 Soy San, 42 y.o. female with diagnosis of 1. Malignant neoplasm of overlapping sites of right breast in female, estrogen receptor negative is here for chemotherapy infusion of Pertuzumab/Transtuzumab. PROTOCOL: NA CYCLE: 2 DAY: 1 S: Pt. offers no complaints at this time. Chemo checks performed per policy. Reviewed plan of care for Infusion visit, patient verbalized understanding of plan as outlined. Patient discharged to home O: Patient's Chemotherapy orders independently verified for correct drug name, route and dosage perpatient's height, weight and BSA by Serenity Cespedes, YOSEF/pharmacy RN and Pharmacist. REACTIONS (DESCRIPTION, TIME, INTERVENTION AND EFFECTIVENESS) None noted. A: Pt. Tolerated treatment well. Soy Mondragongiacomo confirms that all questions and issues have been addressed. Fluid intake, exercise, watching for a fever and handwashing discussed with patient. P: Return to clinic per routine. documented in this encounter Plan of Treatment Upcoming Encounters Date Type Department Care Team (Late st Contact Info) Description 06/14/2024 8:00 AM EST Hospital Encounter Nuclear Medicine at [place] [phone] Consuelo Joyce [facility] [place] [address] 06/14/2024 8:45 AM EST Appointment XRay at [address] [place] [address] Kavitha Rai MD [facility] [place] [address] 06/14/2024 9:45 AM EST Appointment Hematology [place] [address] 06/14/2024 11:00 AM EST Appointment Nuclear Medicine at [place] [phone] Consuelo Joyce [facility] [place] [address] 06/14/2024 1:00 PM EST Office Visit Hematology [place] [address] Kavitha Rai MD [facility] DR [place] [address] 06/14/2024 2:30 PM EST Appointment Hematology [place] [address] 07/05/2024 10:30 AM EDT Appointment Hematology [place] [address] 07/05/2024 11:30 AM EDT Office Visit [place]ematology [place] [address] Consuelo Joyce APRN [facility] [place] [address] 07/05/2024 1:00 PM EDT Appointment Hematology [place] [address] 08/16/2024 9:20 AM EDT Office [place] [address] Luz Jose, CARSON [facility] [place] [place] [address] 01/14/2025 8:30 AM EDT Office Visit Psychiatry and Behavioral Health at [place] [phone] Anna Oneill, PhD [facility] [place] [address] documented as of this encounter Visit Diagnoses Diagnosis Malignant neoplasm of overlapping sites of right breast in female, estrogen receptor negative documented in this encounter Administered Medications Inactive Administered Medications - up to 3 most recent administrations Medication Order MAR Action Action Date Dose Rate Site calcium carbonate (TUMS) chewable tablet 500 mg 500 mg, Oral, ONCE, 1 dose, On Yvette 02/24/23 at 1415, Routine Given 02/24/2023 2:50 PM EST 500 mg denosumab (Xgeva) (120 mg/1.7 mL) subcutaneous injection 120 mg 120 mg, Subcutaneous, ONCE, 1 dose, On Yvette 02/24/23 at 1415, - Bring to room temperature 15-30 minutes before administration. - Call provider for corrected calcium less than 8.5 mg/dL or CrCl less than 30 mL/min., This agent is restricted to outpatient use. Is this drug being given as an outpatient? Yes Given 02/24/2023 2:50 PM EST 120 mg Left Arm heparin (pf) (porcine) (100 units/mL) flush 5 mL syringe 500 Units 500 Units, Intravenous, ONCE PRN, Starting on Yvette 02/24/23 at 1358, Until Tue02/25/23 at 0435, Line Care, Refer to Intravenous (IV) Procedure: Accessing Implanted Vascular Access Devices (654) procedure and/or Intravenous (IV) Job Aid: Adult Flushing & Catheter Care (8652) job aid for additional information regarding guidelines and administration., Routine Given 02/24/2023 4:45 PM EST 500 Units PERTuzumab (Perjeta) 420 mg in sodium chloride 0.9% 264 mL infusion 420 mg, Intravenous, ONCE, 1 dose, On Yvette 02/24/23 at 1515, Administer over 30 Minutes, This agent is restricted to outpatient use. Is this drug being given as an outpatient? Yes New Bag 02/24/2023 2:56 PM EST 420 mg 528 mL/hr sodium chloride 0.9 % (flush) (BD PosiFlush Normal Saline 0.9) flush 5-20 mL 5-20 mL, Intravenous, EVERY 1 MIN PRN, Starting on Yvette 02/24/23 at 1358, Until Tue02/25/23 at 0435, Line Care, Flush pertains to all indwelling lines. Flush per protocol found in the job aid using the link provided on this medication record. Refer to Intravenous (IV) Job Aid: Adult Flushing & Catheter Care (9145) job aid for additional information regarding guidelines and administration., Routine Given 02/24/2023 4:45 PM EST 20 mLs sodium chloride 0.9% infusion 200 mL/hr, Intravenous, ONCE, 1 dose, On Yvette 02/24/23 at 1415 New Bag 02/24/2023 2:56 PM EST 200 mL/hr 200 mL/hr TRASTuzumab-anns (Kanjinti) 620 mg in sodium chloride 0.9% 279.55 mL infusion 620 mg (rounded from 620.4 mg = 6 mg/kg/dose ? 103.4 kg Treatment plan Recorded weight), Intravenous, ONCE, 1 dose, On Yvette 02/24/23 at 1515, Administer over 30 Minutes, Incompatible in D5W, This agent is restricted to outpatient use. Is this drug being given as an outpatient? Yes New Bag 02/24/2023 4:06 PM EST 620 mg 559.1 mL/hr documented in this encounter Care Teams Heating And Ventilation Engineer Relationship Specialty Start Date End Date Ryan Betancourt MD [address] [place] [phone] PCP - General Family Medicine 07/29/22 documented as of this encounter
--- OUTSIDE RECORDS SUMMARY | 2024-06-01 20:42 | XMS_ITS | Encounter Summary ---
Author Organization [facility] Address [facility] [place] [address] Care Team Providers Care Dice Table Person Name Role Phone Ryan Betancourt MD Primary Care Provider [phone] Encounter Details Date Type Department Care Team (Latest Contact Info) Description 01/13/2023 Travel Social History Tobacco Use Types Packs/Day [...] AM EST Hospital En[place] [address] Consuelo Joyce APRN [facility] [place] [address] 06/14/2024 8:45 AM EST Appointment XRay at [address] [place] [address] Kavitha Rai MD [facility] DR HEMATOLOGY [place] [address] 06/14/2024 9:45 AM EST Appointment Hematology [place] [address] 06/14/2024 11:00 AM EST Appointment [place] [address] Consuelo Joyce APRN [facility] [place] [address] 06/14/2024 1:00 PM EST Office Visit Hematology [place] [address] Kavitha Rai MD [facility] HEMATOLOGY [place] [address] 06/14/2024 2:30 PM EST Appointment Hematology [place] [address] 07/05/2024 10:30 AM EDT Appointment Hematology and Oncology at [place] [phone] 07/05/2024 11:30 AM EDT Office Visit Hematology and Oncology at [place] [phone] Consuelo Joyce APRN [facility] [place] [address] 07/05/2024 1:00 PM EDT Appointment Hematology and Oncology at [place] [address] 08/16/2024 9:20 AM EDT Office Visit Ophthalmology at [place] [phone] Luz Jose, OD [facility] [place] [address] 01/14/2025 8:30 AM EDT Office Visit Psychiatry and Behavioral Health at [place] [address] Anna Oneill, PhD [facility] [place] [address] documented as of this encounter Visit Diagnoses Not on filedocumented in this encounter Care Teams Dice Table Person Relationship Specialty Start Date End Date Ryan Betancourt MD [address] [place] [phone] PCP - General Family Medicine 07/29/22 documented as of this encounter
--- OUTSIDE RECORDS SUMMARY | 2024-06-01 20:42 | XMS_ITS | Encounter Summary ---
Author Organization Formerly [facility] Address [facility] [place] [address] Care Team Providers Care Crisis Intervention Specialist Name Role Phone Ryan Betancourt MD Primary Care Provider [phone] Reason for Referral * Consultation (Routine) - Closed Specialty Diagnoses / Procedures Referred By Ciaran lopez Referred To Contact Dermatology Diagnoses Brittle nails Toxic effect of chemotherapy Netta Salgado MD [facility] [address] HEMATOLOGY/[place] [address] [facility] D[facility]atology [address] [place] [address] Referral ID Status Reason Start Date Expiration Date V isits Requested Visits Authorized [id number] Closed Consult, Test & Treat 02/03/2023 02/03/2024 1 1 Reason for Visit * Reason Comments Follow-up Encounter Details Date Type Department Care Team (Late Contact Info) Description 02/03/2023 11:30 AM EDT Office Visit [place] [address] Laverne Redding PA [facility] MEDICAL ONCOLOGY [place] [id number] Malignant neoplasm of overlapping sites of right breast in female, estrogen receptor negative; Brittle nails; Toxic effect of chemotherapy Social History Tobacco Use Types Packs/Day Years [...] Sign Reading Time Taken Comments Blood Pressure 125/80 02/03/2023 10:57 AM EDT Pulse 80 02/03/2023 10:57 AM EDT Temperature 36.2 ??C (97.2 ??F) 02/03/2023 1 0:57 AM EDT Respiratory Rate 18 02/03/2023 10:5 7 AM EDT Oxygen Saturation 98% 02/03/2023 10: 57 AM EDT Inhaled Oxygen Concentration - - Weight 101.1 kg (222 lb 14.2 oz) 2022 10:57 AM EDT Height 164.1 cm (5' 4.61) 02/03/2023 1 0:57 AM EDT Body Mass Index 37.54 02/03/2023 10:57 AM EDT documented in this encounter Progress Notes * Netta Salgado MD - 02/03/2023 11:30 AM EDT Patient ID: Soy San is a 42 y.o. 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 She is s/p a right breastand axillary biopsy. She has completed 6 cycles of THP (Ruthy regimen) given the high pre-test probability of her having metastatic disease. Bone & liver bx negative though these were obtained after she began chemo. She has had an excellent clinical response to therapy, Breast Cancer: she'scompleted 6 cycles of THP, now on H&P, who returns for a f/u visit. 02/03/23 Here for trastuzumab/pertuzumab (HP) cycle 1 [...] cycle. No fevers, but does have chills. 01/13/23 (LEOPOLDO Redding) Newer Concerns today: Muscle Pain: - arms, legs, and shins are painful moreso when she moves - pain has been a constant 5, Percocet do not seem to help, and she also feels very tight - come muscle twitching as well 2. Nail from nail bed: - she has nail yoruba on today with acrylic, but she mentions that it seems that the nail bed from the nail 3. Hemorrhoids: - occasionally bleeding noticeable, nothing recent, hasn't f/ued w/ PCP in awhile 4. Hot flashes - extremely bothersome hot flashes, has been going on for over a year now, would like help managingthis At today's visit, she has no breast concerns and denies any new lumps or bumps in her breasts or axilla. No nipple discharge or pain in either breast. She denies significant changes to her health since her last visit. She denies any new or worsening headaches, visual changes/diplopia, fevers, chest pain, dyspnea, lower extremity swelling, vaginal dryness or bleeding. ROS as per HPI. Breast cancer history: Last visit w/ HORTENSIA Lora 12/23/22: Soy Hernandezmaryan San is a 42 y.o. female with presumed [...] 1st & 2nd week following infusion. Saw [facility] this morning who made recommendations [...] After THP #1, she went to a [employer], ate half a salad. This was fine. 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 Wt Readings from Last 3 Encounters: 02/03/23 101.1 kg (222 lb 14.2 oz) 01/13/23 100.2 kg (220 lb 14.4 oz) 12/23/22 104.1 kg (229 lb 8 oz) Vitals: BP 125/80, afebrile, HR 80, spO2 98% Physical Exam Vitals (BP 125/80, afebrile, HR 80, spO2 98%) reviewed. Constitutional: General: She is not in acute distress. Appearance: Normal appearance. She is not ill-appearing. HENT: Head: Normocephalic and atraumatic. Eyes: Extraocular Movements: Extraocular movements intact. Conjunctiva/sclera: Conjunctivae normal. Pupils: Pupils are equal, round, and reactive to light. Cardiovascular: Rate and Rhythm: Normal rate and regular rhythm. Heart sounds: No murmur heard. Pulmonary: Effort: Pulmonary effort is normal. Breath sounds: Normal breath sounds. Chest: Chest wall: No mass, swelling, tenderness, edema or bony tenderness. Breasts: No breast swelling and tenderness. Right: Mass (soft, mobile ~3cm mass at 10 o'clock, approximately 3cm from the nipple. edges are smooth) and skin change (darkening of skin around the nipple) present. No inverted nipple or tenderness. Left: No inverted nipple, mass, skin change or tenderness. Abdominal: General: Abdomen is flat. There is no distension. Palpations: Abdomen is soft. Tenderness: There is no abdominal tenderness. Comments: No hepatomegaly or masses Musculoskeletal: General: No swelling or tenderness. Normal range of motion. Cervical back: Normal range of motion. Lymphadenopathy: Cervical: No cervical adenopathy. Skin: General: Skin is warm and dry. Findings: No rash. Comments: No visible rashes. Her nails are opaque, thick and brittle with ridges, several are peeling away from the nail bed. Neurological: General: No focal deficit present. Mental Status: She is alert and oriented to person, place, and time. Psychiatric: Mood and Affect: Mood normal. Behavior: Behavior normal. A/P: A/P: Soy San is a 42 [...] these were obtained after s he began chemo. She has had an excellent clinical response to therapy. Breast Cancer: she's completed 6 cycles of THP, now on H&P. Excellent clinical response with decreasing markers and resolved pain and breast mass. Reviewed Breast MRI from 01/11. She would like to proceed with surgery if offered. Message sent to Dr. Estrada. Had dental alondra on Jan 03. Will plan to start denosumab - need to discuss again with patient. Needs repeat 2D echo, ordered but not yet scheduled. Will ask our schedulers to help with this. 2. Hot flashes - declined gabapentin - will try black cohosh - next step venlafaxine 3. Brittle nails - referral to Dermatology placed per her request - reassurance provided RTC 3 weeks for H&P, denosumab. Scheduled for 02/24/2023 documented in this encounter Plan of Treatment Upcoming Encounters Date Type Department Care Team (Late st Contact Info) Description 06/14/2024 8:00 AM EST Hospital Encounter [place] [address] Consuelo Joyce APRN [facility] [place] [address] 06/14/2024 8:45 AM EST Appointment XRay at [address] [place] [address] Kavitha Rai MD [facility] HEMATOLOGY [place] [address] 06/14/2024 9:45 AM EST Appointment Hematology and Oncology at [place] [phone] 06/14/2024 11:00 AM EST Appointment Nuclear Medicine at [place] [phone] Consuelo Joyce APRN [facility] [place] [address] 06/14/2024 1:00 PM EST Office Visit [place]ematology [place] [address] Kavitha Rai MD [facility] HEMATOLOGY [place] [address] 06/14/2024 2:30 PM EST Appointment H[place]ology [place] [address] 07/05/2024 10:30 AM EDT Appointment H[place]ology [place] [address] 07/05/2024 11:30 AM EDT Office Visit [place]ematology [place] [address] Consuelo Joyce APRN [facility] [place] [address] 07/05/2024 1:00 PM EDT Appointment Hematology [place] [phone] 08/16/2024 9:20 AM EDT Office [place] [address] Luz Jose, OD [facility] [place] [address] 01/14/2025 8:30 AM EDT Office Visit Psychiatry [place] [address] Anna Oneill, PhD [facility] [place] [address] Scheduled Referrals Name Type Priority Associated Diagnoses Orde r Schedule Referral to Dermatology Outpatient Referral Routine Brittle nails Toxic effect of chemotherapy Ordered: 02/03/2023 documented as of this encounter Procedures Procedure Name Priority Date/Time Associated Diagnosis Comments GOLD TUBE HOLD Routine 02/03/2023 10:53 AM EDT GOLD TUBE HOLD Routine 02/03/2023 10:53 AM EDT LAVENDER TUBE HOLD Routine 02/03/2023 10 :53 AM EDT documented in this encounter Results * Gold Tube HOLD (02/03/2023 10:53 AM EDT) Gold Hold Sample in lab. [facility] Blood No Charge / Unknown 02/03/2023 10:53 AM EDT 02/03/2023 11:20 AM EDT Jazmine Murphy APRN CHEMISTRY ORDERABLES [facility] [place] [address] * Lavender Tube HOLD (02/03/2023 10:53 AM EDT) Lavender Hold Sample in lab. [facility] Blood No Charge / Unknown 02/03/2023 10:53 AM EDT 02/03/2023 11:19 AM EDT Jazmine T Jeffrey LEADED GLASS INSTALLER HEMATOLOGY ORDERABLE S Performing Organization Address City/[facility]/ZIP Co de Phone Number [facility] [place] [address] * Gold Tube HOLD (02/03/2023 10:53 AM EDT) Gold Hold Sample in lab. [facility] Blood No Charge / Unknown 02/03/2023 10:53 AM EDT 02/03/2023 11:20 AM EDT Jazmine T Jeffrey LEADED GLASS INSTALLER CHEMISTRY ORDERABLES Performing Organization Address City/[facility] [place] [address] documented in this encounter Visit Diagnoses Diagnosis Malignant neoplasm of overlapping sites of right breast in female, estrogen receptor negative Brittle nails Other specified disease of nail Toxic effect of chemotherapy documented in this encounter Care Teams Crisis Intervention Specialist Relationship Specialty Start Date End Date Ryan Betancourt MD [address] [place] [phone] PCP - General Family Medicine 07/29/22 documented as of this encounter
--- OUTSIDE RECORDS SUMMARY | 2024-06-01 20:42 | XMS_ITS | Encounter Summary ---
Author Organization [facility] [place] [address] Care Team Providers Care Plastic Mould Maker Name Role Phone Ryan Betancourt MD Primary Care Provider [phone] Reason for Referral * Diagnostic Test (Routine) - Denied Specialty Diagnoses / Procedures Referred By Ciaran lopez Referred To Contact Radiology Diagnoses Malignant neoplasm of overlapping sites of right breast in female, estrogen receptor negative Procedures NM PET CT Skull Base to Mid-thigh Kavitha Rai MD [facility] [place] [address] [place] [address] Referral ID Status Reason Start Date Expiration Date V isits Requested Visits Authorized [id number] Denied Specialty Service Requested 02/24/2023 08/24/2024 1 0 Reason for Visit * Reason Comments Follow-up Encounter Details Date Type Department Care Team (Late st Contact Info) Description 02/24/2023 1:20 PM EST Office Visit Hematology [place] [address] Kavitha Rai MD [facility] [place] [address] Malignant neoplasm of overlapping sites of right [...] Sign Reading Time Taken Comments Blood Pressure 138/77 02/24/2023 12:59 PM EST Pulse 74 02/24/2023 12:59 PM EST Temperature 36.3 ??C (97.3 ??F) 02/24/2023 1 2:59 PM EST Respiratory Rate 18 02/24/2023 12:5 9 PM EST Oxygen Saturation 98% 02/24/2023 12: 59 PM EST Inhaled Oxygen Concentration - - Weight 101.2 kg (223 lb 1.7 oz) 023 12:59 PM EST Height 163.4 cm (5' 4.33) 02/24/2023 1 2:59 PM EST Body Mass Index 37.9 02/24/2023 12:59 PM EST documented in this encounter Progress Notes * Kavitha Rai MD - 02/24/2023 1:20 PM EST Patient ID: Soy San is a 42 y.o. 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 . She is s/p THP x6 with excellent clinical response and is on H and P alone since 12/23/2022. 02/24/2023 Here for herceptin/perjeta (IV). Insurance denial [...] 1st & 2nd week following infusion. Saw [facility] this morning who made recommendations for her. [...] After THP #1, she went to a [employer], ate half a salad. This was fine. [...] right breast in the shower. Subsequently called [facility], seen that day. 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 Wt Readings from Last 3 Encounters: 02/03/23 101.1 kg (222 lb 14.2 oz) 01/13/23 100.2 kg (220 lb 14.4 oz) 12/23/22 104.1 kg (229 lb 8 oz) Physical exam Constitutional: She is oriented [...] normal. Lab Results Component Value Date WBC 5.0 02/03/2023 HGB 13.2 02/03/2023 HCT 40.5 02/03/2023 MCV 85.4 02/03/2023 PLATELET 252 02/03/2023 Lab Results Component Value Date NEUTROABS 2.91 02/03/2023 Lab Results Component Value Date NA 142 02/03/2023 K 3.7 02/03/2023 CL 107 02/03/2023 CO2 25 02/03/2023 BUN 13 02/03/2023 CREATININE 0.77 02/03/2023 GLUCOSE 104 02/03/2023 CALCIUM 9.5 02/03/2023 ESTGFR 97 02/03/2023 Lab Results Component Value Date ALT 30 02/03/2023 AST 20 02/03/2023 ALKPHOS 97 02/03/2023 BILITOT 0.3 02/03/2023 ALBUMIN 4.0 02/03/2023 PROT 6.7 02/03/2023 CEA (ng/mL) Date Value 01/13/2023 2.0 12/23/2022 2.8 11/11/2022 3.4 10/21/2022 2.8 09/30/2022 3.5 CA 15-3 (unit/mL) Date Value 02/03/2023 29 (H) 01/13/2023 31 (H) 12/23/2022 39 (H) 12/02/2022 42 (H) 11/11/2022 45 (H) ] A/P: A/P: Soy San is [...] markers and resolved pain and breast mass. Situation reviewed at breast tumor board 02/22/2023 and no enthusiasm for any primary breast surgery. . -plan to start denosumab today -order signed 2. Hot flashes - declined gabapentin originally but has prescription. Encouraged to try it. - continue black cohosh - next step venlafaxine 3. Brittle nails - referral to Dermatology placed per her request - reassurance provided RTC 3 weeks for H&P, denosumab. Scheduled for 02/24/2023 documented in this encounter Plan of Treatment Upcoming Encounters Date Type Department Care Team (Late st Contact Info) Description 06/14/2024 8:00 AM EST Hospital Encounter [place] [address] Consuelo Joyce APRN [facility] [place] [address] 06/14/2024 8:45 AM EST Appointment XRay at [address] [place] [address] Kavitha Rai MD [facility] DR [place] [address] 06/14/2024 9:45 AM EST Appointment Hematology and Oncology at [address] 06/14/2024 11:00 AM EST Appointment Nuclear Medicine at [address] Consuelo Joyce [facility] [place] [address] 06/14/2024 1:00 PM EST Office Visit Hematology [place] [address] Kavitha Rai MD [facility] DR [place] [address] 06/14/2024 2:30 PM EST Appointment Hematology [place] [address] 07/05/2024 10:30 AM EDT Appointment Hematology [place] [address] 07/05/2024 11:30 AM EDT Office Visit Hematology and Oncology at [place] [phone] Consuelo Joyce [facility] [place] [address] 07/05/2024 1:00 PM EDT Appointment Hematology [place] [address] 08/16/2024 9:20 AM EDT Office Visit Ophthalmology at [place] [phone] Luz Jose, OD [facility] [place] [address] 01/14/2025 8:30 AM EDT Office Visit Psychiatry and [place] [address] Anna Oneill, PhD [facility] [place] [address] documented as of this encounter Results * NM PET CT [...] who have questions please contact the health resident care coordinator that requested your imaging first. ? Narrative 04/13/2023 4:34 PM EST EXAMINATION: NM PET CT STANDARD SKULL BASE TO MID-THIGH CLINICAL HISTORY: Breast cancer, assess treatment response TECHNIQUE: Following IV injection of 78-ddgyuj-1-deoxyglucose (FDG) a standard uptake of approximately 60 [...] treatment response TECHNIQUE: Following IV injection of 05-zqtlew-1-deoxyglucose (FDG) astandard uptake of approximately 60 minutes, [...] patients who have questions please contactthe health resident care coordinator that requested your imaging first. Kavitha Rai MD IMG PET ORDERABLES documented in this encounter Visit Diagnoses Diagnosis Malignant neoplasm of overlapping sites of right breast in female, estrogen receptor negative Malignant neoplasm of overlapping sites of right breast in female, estrogen receptor negative documented in this encounter Care Teams Plastic Mould Maker Relationship Specialty Start Date End Date Ryan Betancourt MD [address] [place] [phone] PCP - General Family Medicine 07/29/22 documented as of this encounter
--- OUTSIDE RECORDS SUMMARY | 2024-06-01 20:42 | XMS_ITS | Encounter Summary ---
Author Organization [facility] Address [facility] [place] [address] Care Team Providers Care Centralized Traffic Control Operator Name Role Phone Ryan Betancourt MD Primary Care Provider [phone] Encounter Details Date Type Department Care Team (Latest Contact Info) Description 02/03/2023 Travel Social History Tobacco Use Types Packs/Day [...] AM EST Hospital Encounter [place] [address] Consuelo Joyce APRN [facility] [place] [address] 06/14/2024 8:45 AM EST Appointment XRay at [address] [place] [address] Kavitha Rai MD [facility] DR [place] [address] 06/14/2024 9:45 AM EST Appointment Hematology [place] [address] 06/14/2024 11:00 AM EST Appointment [place] [address] Consuelo Joyce APRN [facility] [place] [address] 06/14/2024 1:00 PM EST Office Visit Hematology [place] [address] Kavitha Rai MD [facility] [place] [address] 06/14/2024 2:30 PM EST Appointment Hematology [place] [address] 07/05/2024 10:30 AM EDT Appointment Hematology and Oncology at [place] [phone] 07/05/2024 11:30 AM EDT Office Visit Hematology and Oncology at [place] [phone] Consuelo Joyce APRN [facility] [place] [address] 07/05/2024 1:00 PM EDT Appointment Hematology and Oncology at [place] [address] 08/16/2024 9:20 AM EDT Office Visit Ophthalmology at [place] [phone] Luz Jose, OD [facility] [place] [address] 01/14/2025 8:30 AM EDT Office Visit Psychiatry and Behavioral Health at [place] [address] Anna Oneill, PhD [facility] [place] [address] documented as of this encounter Visit Diagnoses Not on filedocumented in this encounter Care Teams Centralized Traffic Control Operator Relationship Specialty Start Date End Date Ryan Betancourt MD [address] [place] [phone] PCP - General Family Medicine 07/29/22 documented as of this encounter
--- OUTSIDE RECORDS SUMMARY | 2024-06-01 20:42 | XMS_ITS | Encounter Summary ---
Author Organization [facility] Address [facility] [place] [address] Care Team Providers Care Bakery Technician Name Role Phone Ryan Betancourt MD Primary Care Provider [phone] Encounter Details Date Type Department Care Team (Latest Contact Info) Description 01/11/2023 Travel Social History Tobacco Use Types Packs/Day [...] AM EST Hospital Encounter [place] [address] Consuelo Joyce APRN [facility] [place] [address] 06/14/2024 8:45 AM EST Appointment XRay at [address] [place] [address] Kavitha Rai MD [facility] DR HEMATOLOGY [place] [address] 06/14/2024 9:45 AM EST Appointment Hematology [place] [address] 06/14/2024 11:00 AM EST Appointment [place] [address] Consuelo Joyce APRN [facility] [place] [address] 06/14/2024 1:00 PM EST Office Visit Hematology [place] [address] Kavitha Rai MD [facility] HEMATOLOGY [place] [address] 06/14/2024 2:30 PM EST Appointment Hematology [place] [address] 07/05/2024 10:30 AM EDT Appointment Hematology and Oncology at [place] [phone] 07/05/2024 11:30 AM EDT Office Visit Hematology and Oncology at [place] [phone] Consuelo Joyce APRN [facility] [place] [address] 07/05/2024 1:00 PM EDT Appointment Hematology and Oncology at [place] [address] 08/16/2024 9:20 AM EDT Office Visit Ophthalmology at [place] [phone] Luz Jose, OD [facility] [place] [address] 01/14/2025 8:30 AM EDT Office Visit Psychiatry and Behavioral Health at [place] [address] Anna Oneill, PhD [facility] [place] [address] documented as of this encounter Visit Diagnoses Not on filedocumented in this encounter Care Teams Bakery Technician Relationship Specialty Start Date End Date Ryan Betancourt MD [address] [place] [phone] PCP - General Family Medicine 07/29/22 documented as of this encounter
--- OUTSIDE RECORDS SUMMARY | 2024-06-01 20:42 | XMS_ITS | Encounter Summary ---
Author Organization [facility] [place] [address] Care Team Providers Care Humanities And Languages Professor Name Role Phone Ryan Betancourt MD Primary Care Provider [phone] Encounter Details Date Type Department Care Team (Late st Contact Info) Description 12/23/2022 Orders Only Hematology and Oncology at [facility] [place] [phone] Dian Lora PA Social History Tobacco Use Types Packs/Day Years [...] AM EST Hospital Encounter Nuclear Medicine at [place] [phone] Consuelo Joyce [facility] [place] [address] 06/14/2024 8:45 AM EST Appointment XRay at [address] [place] [phone] Kavitha Rai MD [facility] DR HEMATOLOGY [place] [address] 06/14/2024 9:45 AM EST Appointment Hematology [place] [phone] 06/14/2024 11:00 AM EST Appointment [place] [phone] Consuelo Joyce [facility] [place] [address] 06/14/2024 1:00 PM EST Office Visit Hematology [place] [phone] Kavitha Rai MD [facility] DR HEMATOLOGY [place] [address] 06/14/2024 2:30 PM EST Appointment Hematology and Oncology at [place] [address] 07/05/2024 10:30 AM EDT Appointment Hematology and Oncology at [place] [phone] 07/05/2024 11:30 AM EDT Office Visit Hematology and Oncology at [place] [address] Consuelo Joyce APRN [facility] [place] [address] 07/05/2024 1:00 PM EDT Appointment Hematology and Oncology at [place] [address] 08/16/2024 9:20 AM EDT Office Visit Ophthalmology at [place] [address] Luz Jose, [facility] [place] [address] 01/14/2025 8:30 AM EDT Office Visit Psychiatry and Behavioral Health at [place] [address] Anna Oneill, PhD [facility] [place] [address] documented as of this encounter Visit Diagnoses Not on filedocumented in this encounter Care Teams Humanities And Languages Professor Relationship Specialty Start Date End Date Ryan Betancourt MD [address] [place] [phone] PCP - General Family Medicine 07/29/22 documented as of this encounter
--- OUTSIDE RECORDS SUMMARY | 2024-06-01 20:42 | XMS_ITS | Encounter Summary ---
Author Organization [facility] Address [facility] [place] [address] Care Team Providers Care Arc Welder Apprentice Name Role Phone Ryan Betancourt MD Primary Care Provider [phone] Reason for Referral * Consultation (Urgent) - Denied Specialty Diagnoses / Procedures Referred By Contdede t Referred To Contact Dermatology Diagnoses Malignant neoplasm of overlapping sites of right breast in female, estrogen receptor negative Deformity of nail bed Laverne Redding PA [facility] [place] [address] Con Dermatology [address] [place] [address] Referral ID Status Reason Start Date Expiration Date V isits Requested Visits Authorized [id number] Denied Consult, Test & Treat 01/13/2023 01/13/2024 1 0 Reason for Visit * Reason Comments Follow-up Encounter Details Date Type Department Care Team (Late st Contact Info) Description 01/13/2023 1:30 PM EDT Office Visit Hematology [place] [address] Laverne Redding PA [facility] [place] [address] Malignant neoplasm of overlapping sites of right [...] Sign Reading Time Taken Comments Blood Pressure 117/67 01/13/2023 1:25 PM EDT Pulse 75 01/13/2023 1:25 PM EDT Temperature 36.6 ??C (97.9 ??F) 01/13/2023 1:25 PM ED T Respiratory Rate 18 01/13/2023 1:25 PM EDT Oxygen Saturation 98% 01/13/2023 1:25 PM EDT Inhaled Oxygen Concentration - - Weight 100.2 kg (220 lb 14.4 oz) 01/13/2023 1:25 PM EDT Height 163 cm (5' 4.17) 01/13/2023 1:25 PM EDT Body Mass Index 37.71 01/13/2023 1:25 PM EDT documented in this encounter Patient Instructions * Patient Instructions* Laverne Redding PA - 01/13/2023 1:30 PM EDT please f/u 02/24, w/ appts for access, labs, MD visit, and infusion documented in this encounter Progress Notes * Laverne Redding PA - 01/13/2023 1:30 PM EDT Images from the original note were not included. Patient ID: Soy San is a 42 y.o. female HPI: is a patient of Dr. 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 She is s/p a right breast and axillary biopsy. She has completed 6 cycles of THP (Ruthy regimen) given the high pre-test probabilityof her having metastatic disease. Bone & liver bx negative though these were obtained after shebegan chemo. She has had an excellent clinical response to therapy, Breast Cancer: she's completed 6 cycles of THP, now on H&P, who returns for a f/u visit. Newer Concerns today: Muscle Pain: - arms, legs, and shins are painful moreso when she moves - pain has been a constant 5, Percocet do not seem to help, and she also feels very tight - come muscle twitching as well 2. Nail from nail bed: - she has nail swedish on today with acrylic, but she mentions [...] Last visit w/ HORTENSIA Lora 12/23/22: Soy Jaimes Mena is a 42 y.o. female with [...] 1st & 2nd week following infusion. Saw formerly [facility] this morning who made recommendations for [...] After THP #1, she went to a [employer], ate half a salad. This was fine. [...] right breast in the shower. Subsequently called [facility] womans wellness, seen that day. 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 [...] ordered today. RTC 3 weeks for H&P. Current Medications: ketoconazole (Nizoral) 2 % Cream hydrocortisone 2.5 % Cream prochlorperazine (Compazine) 10 mg tablet ondansetron (Zofran) 8 mg tablet OLANZapine (ZyPREXA) 5 mg tablet multivitamin Capsule betamethasone dipropionate (Diprolene) 0.05 % Cream gabapentin (Neurontin) 300 mg capsule omeprazole (PriLOSEC) [address] capsule oxyCODONE-acetaminophen (Percocet) 5-325 mg tablet No current facility-administered medications for this visit. sodium chloride 0.9 % (flush) (BD PosiFlush Normal Saline 0.9) flush 5-20 mL Physical Exam: VS: Patient Vitals for the past 24 hrs: Temp Pulse Resp BP SpO2 01/13/23 1325 36.6 ??C (97.9 ??F) 75 18 117/67 98 % reviewed and appear to be wnl. General appearance: Alert, well-appearing, well-developed, in no acute distress. Skin: Warm and dry. Head: Normocephalic, atraumatic. Neck: Soft and supple without masses or cervical adenopathy. Cardiovascular: RRR, no obvious murmur heard. Pulmonary: CTAB, No signs of respiratory distress. Musculoskeletal: Arms with full ROM without any evidence of lymphedema. Fully weight-bearing. Neurological: Alert and oriented x 4. Mood is euthymic and appropriate to the situation. Results: Labs: Recent Results (from the past 12 hour(s)) Comprehensive metabolic panel (non-fasting) Result Value Glucose Lvl 98 BUN 14 Creatinine 0.76 Sodium 141 Potassium 3.9 Chloride 106 CO2 25 Anion Gap 10 Calcium 9.2 Total Protein 6.5 Albumin 3.9 AST 15 ALT 18 Alk Phos 81 Total Bilirubin 0.4 Estimated GFR 99 Cancer antigen 15-3 Result Value CA 15-3 31 (H) CEA Result Value CEA 2.0 Hemogram Result Value WBC 5.7 RBC 4.42 Hemoglobin 12.7 Hematocrit 38.1 MCV 86.2 MCH 28.7 MCHC 33.3 Platelets 232 RDWSD 40.9 RDWCV 13.0 MPV 10.5 nRBC % Auto 0.0 nRBC Abs Auto 0.000 Differential, Automated Result Value Neutrophils % 56.7 Neutr Abs (ANC) 3.21 Lymphocytes % 32.7 Lymphocytes Abs 1.8 Monocytes % 5.5 Monocyte Abs 0.3 Eosinophils % 4.4 Eosinophils Abs 0.2 Basophils % 0.5 Basophils Abs 0.0 Immature Gran % 0.20 Aliza Gran Abs 0.01 Assessment: This is a 42 y/o f w/ an oncologic history of denovo stage 4 Her 2 [...] excellent clinical response to therapy, Breast Cancer: she's completed 6 cycles of THP, now on H&P, who returns for a f/u visit. ECO Plan: I have discussed my assessment and recommendations with the patient. She will contact me if she develops any new breast changes or concerns prior to that appointment. She agrees to this plan. - okay to tx today, labs wnl, NO changes to chemo plan Muscle Pain - continue using pain meds as needed Nail Separation - will refer to derm, difficult to exam today due to recent manicure w/ acrylics 3. Hemorrhoids - please f/u w/ PCP regarding this 4. Hot flashes - Rxed 300 mg of Gabapentin nightly #30 w/ 1 refill and we will see how she does with that - please f/u 02/24, w/ appts for access, labs, MD visit, and infusion Manage stress levels, for any psychological concerns please let us know and or for emergencies please go to your nearest ER or call [phone] All questions were answered to the patient's satisfaction and they state understanding and agreement with today's treatment plan. They are encouraged to follow up sooner if they develop any new or concerning symptoms. If symptoms worsen or fail to improve as expected, or if they develop other concerning symptoms. Total time spent on the date of the encounter: 45 minutes (Includes time spent reviewing prior notes and tests, obtaining a history, performing an exam, counseling and education, coordination of care, ordering medications/tests, placing referrals, interpreting results, and documenting in the chart). Laverne Redding PA-C Physician Tufting Machine Operator Breast Oncology Instructor in Medicine, [facility] [employer], [facility] documented in this encounter Plan of Treatment Upcoming Encounters Date Type Department Care Team (Late st Contact Info) Description 06/14/2024 8:00 AM EST Hospital Encounter [place] [phone] Consuelo Joyce APRN [facility] [place] [address] 06/14/2024 8:45 AM EST Appointment XRay at [address] [place] [phone] Kavitha Rai MD [facility] DR HEMATOLOGY [place] [address] 06/14/2024 9:45 AM EST Appointment Hematology and Oncology at [place] [phone] 06/14/2024 11:00 AM EST Appointment Nuclear Medicine at [place] [phone] Consuelo Joyce APRN [facility] [place] [address] 06/14/2024 1:00 PM EST Office Visit Hematology and Oncology at [place] [phone] Kavitha Rai MD [facility] DR HEMATOLOGY [place] [address] 06/14/2024 2:30 PM EST Appointment Hematology and Oncology at [place] [phone] 07/05/2024 10:30 AM EDT Appointment Hematology and Oncology at [place] [phone] 07/05/2024 11:30 AM EDT Office Visit Hematology and Oncology at [place] [phone] Consuelo Joyce [facility] [place] [address] 07/05/2024 1:00 PM EDT Appointment Hematology [place] [address] 08/16/2024 9:20 AM EDT Office Visit Ophthalmology at [place] [phone] Luz Jose, OD [facility] [place] [address] 01/14/2025 8:30 AM EDT Office Visit Psychiatry and [place] [address] Anna Oneill, PhD [facility] [place] [address] Scheduled Referrals Name Type Priority Associated Diagnoses Orde r Schedule Referral to Dermatology Outpatient Referral Urgent Malignant neoplasm of overlapping sites of right breast in female, estrogen receptor negative Deformity of nail bed Ordered: 01/13/2023 documented as of this encounter Visit Diagnoses Diagnosis Malignant neoplasm of overlapping sites of right breast in female, estrogen receptor negative Deformity of nail bed Gastroesophageal reflux disease, unspecified whether esophagitis present documented in this encounter Care Teams Arc Welder Apprentice Relationship Specialty Start Date End Date Ryan Betancourt MD [address] [place] [phone] PCP - General Family Medicine 07/29/22 documented as of this encounter
--- OUTSIDE RECORDS SUMMARY | 2024-06-01 20:42 | XMS_ITS | Encounter Summary ---
[place] [address] Care Team Providers Care Plan Checker Name Role Phone Ryan Betancourt MD Primary Care Provider [phone] Reason for Visit * Treatment/Therapy Plan Authorization (Routine) - Closed Specialty Diagnoses / Procedures Referred By Contac t Referred To Contact Diagnoses Malignant neoplasm of overlapping sites of right breast in female, estrogen receptor negative Procedures TC PERTUZUMAB, 1 MG, INJECTION [id number] (TRASTUZUMAB-ANNS) Dian Lora PA [facility] [address] [place] [address] Referral ID Status Reason Start Date Expiration Date Visits Re quested Visits Authorized [id number] Closed 12/22/2022 12/22/2023 1 105 Encounter Details Date Type Department Care Team (Latest Contact Info) Description 02/24/2023 11:55 AM EST - 02/24/2023 11:59 PM EST Hospital Encounter Hematology [place] [phone] Malignant neoplasm of overlapping sites [...] Progress Notes * Annabelle Ortega RN - 02/24/2023 12:13 PM EST Patient Name: Soy San Patient Age: 42 y.o. Birthdate: 1980 Admit date: 02/24/2023 Attending Physician: No att. providers found Access visit. See MAR and/or flowsheet. documented in this encounter Plan of Treatment Upcoming Encounters Date Type Department Care Team (Late st Contact Info) Description 06/14/2024 8:00 AM EST Hospital Encounter [place] [phone] Consuelo Joyce APRN [facility] [place] [address] 06/14/2024 8:45 AM EST Appointment XRay at [address] [place] [phone] Kavitha Rai MD [facility] [place] [address] 06/14/2024 9:45 AM EST Appointment Hematology and Oncology at [address] 06/14/2024 11:00 AM EST Appointment Nuclear Medicine at [address]1000 Consuelo Joyce APRN [facility] [place] [address] 06/14/2024 1:00 PM EST Office Visit Hematology and Oncology at [address]1000 Kavitha Rai MD [facility] DR HEMATOLOGY [place] [address] 06/14/2024 2:30 PM EST Appointment Hematology and Oncology at [place] [phone] 07/05/2024 10:30 AM EDT Appointment Hematology and Oncology at [address] 07/05/2024 11:30 AM EDT Office Visit Hematology and Oncology at [place] [phone] Consuelo Joyce [facility] [place] [address] 07/05/2024 1:00 PM EDT Appointment Hematology and Oncology at [place] [phone] 08/16/2024 9:20 AM EDT Office Visit Ophthalmology at [place] [phone] Luz Jose OD [facility] [place] [address] 01/14/2025 8:30 AM EDT Office Visit Psychiatry [place] [phone] Anna Oneill, PhD [facility] [place] [address] documented as of this encounter Procedures Procedure Name Priority Date/Time Associated Diagnosis Comments HEMOGRAM STAT 02/24/2023 12:16 PM EST Malignant neoplasm of overlapping sites of right breast in female, estrogen receptor negative DIFFERENTIAL, AUTOMATED STAT 02/24/2023 12:16 PM EST Malignant neoplasm of overlapping sites of right breast in female, estrogen receptor negative CANCER ANTIGEN 15-3 STAT 02/24/2023 1 2:16 PM EST Malignant neoplasm of overlapping sites of right breast in female, estrogen receptor negative CBC (WITH DIFF) STAT 02/24/2023 12:16 PM EST Malignant neoplasm of overlapping sites of right breast in female, estrogen receptor negative COMPREHENSIVE METABOLIC PANEL STAT 02/24/2023 12:16 PM EST Malignant neoplasm of overlapping sites of right breast in female, estrogen receptor negative documented in this encounter Results * Differential, Automated (02/24/2023 12:16 PM EST) Neutrophil % 57.9 % [facility] Neutrophil Absolute 3.25 1.70 - 6.10 x10(3)/[facility] LABORATORY Lymph % 32.4 % [facility] Lymphocytes Abs 1.8 0.9 - 3.2 x10(3)/[facility] LABORATORY Monocyte % 5.0 % [facility] HOSP ITAL LABORATORY Monocyte Abs 0.3 0.3 - 0.9 x10(3)/[facility] LABORATORY Eos % 4.1 % [facility] Eosinophils Abs 0.2 0.0 - 0.4 x10(3)/[facility] LABORATORY Basophil % 0.4 % [facility] HOSP ITAL LABORATORY Baso Absolute 0.0 0.0 - 0.1 x10(3)/[facility] LABORATORY Immature Gran % 0.20 % [facility] Comment: Immature granulocytes(IG's)percentage and absolute count will include metamyelocytes, myelocytes, and promyelocytes. Blood smears from CBCs yielding IG's will be scanned manually for concordance. If this scan disagrees with the automated IG or if promyelocytes are noted, a manual differential will be performed. Immature Gran Absolute 0.01 0.00 - 0.04 x10(3)/[facility] LABORATORY Blood 02/24/2023 12:1 6 PM EST 02/24/2023 12:22 PM EST Narrative Resulting Agency Comment Spec In Lab Kavitha Rai MD HEMATOLOGY ORDERABLE S [facility] [place] [address] * Hemogram (02/24/2023 12:16 PM EST) White Blood Cell 5.6 4.0 - 9.5 x10(3)/[facility] LABORATORY Red Blood Cell 4.85 4.00 - 5.21 x10(6)/[facility] LABORATORY Hemoglobin 13.5 11.7 - 15.5 g/dL [facility] Hematocrit 40.3 35.7 - 45.8 % [facility] Mean Cell Volume 83.1 82.6 - 94.4 fL [facility] Mean Cell Hemoglobin 27.8 27.1 - 32.0 pg [facility] Mean Cell Hemoglobin Concentration 33.5 31.7 - 35.0 g/dL [facility] Platelet 266 145 - 357 x10(3)/[facility] LABORATORY RDW Standard Deviation 38.7 37.0 - 46.0 fL [facility] RDW coefficient of variation 12.8 11.5 - 14.1 % [facility] Mean Platelet Volume 9.9 7.6 - 12.9 fL [facility] NRBC% auto 0.0 % [facility] NRBC Absolute 0.000 0.000 - 0.000 x10(3)/[facility] LABORATORY Blood 02/24/2023 12:1 6 PM EST 02/24/2023 12:22 PM EST Narrative Resulting Agency Comment Spec In Lab Kavitha Rai MD HEMATOLOGY ORDERABLE S Performing Organization Address City/[facility] Co de Phone Number [facility] [place] [address] * (ABNORMAL) Cancer antigen 15-3 (02/24/2023 12:16 PM EST) CA 15-3 30(H) <=25 unit/mL [facility] Comment: This result was generated using a Deepak Dequan immunoassay. ??Results obtained from other methods or manufacturers cannot be used interchangeably with this method. Blood 02/24/2023 12:1 6 PM EST 02/24/2023 12:22 PM EST Narrative Resulting Agency Comment Spec In Lab Kavitha Rai MD CHEMISTRY ORDERABLES Performing Organization Address [facility] Co de Phone Number [facility] [place] [address] * (ABNORMAL) Comprehensive metabolic panel (non-fasting) (02/24/2023 12:16 PM EST) Glucose 102 65 - 199 mg/dL [facility] Comment:Diabetes: >=200 mg/d L plus symptoms Blood Urea Nitrogen 16 8 - 18 mg/dL [facility] Creatinine 0.75 0.70 - 1.20 mg/dL [facility] Sodium 143 135 - 145 mmol/L [facility] Potassium 3.8 3.5 - 5.0 mmol/L [facility] Comment: Please note: ??Patients with WBC >100,000 may have falsely elevated Potassium levels. ??For accurate Potassium quantification in these patients send serum separator tube (gold top) for subsequent determinations. ??Contact the Clinical Chemistry Laboratory if there are any questions. Chloride 105 98 - 107 mmol/L [facility] Carbon Dioxide 25 22 - 31 mmol/L [facility] Anion Gap 13 5 - 15 mmol/L [facility] Calcium 9.2 8.5 - 10.5 mg/dL [facility] Protein, Total 6.8 6.1 - 8.0 g/dL [facility] Albumin 4.0 3.2 - 5.2 g/dL [facility] Aspartate Aminotransferase 26 0 - 30 unit/L [facility] Alanine Aminotransferase 31(H) 0 - 30 unit/L [facility] Alkaline Phosphatase 110(H) 35 - 105 unit/L [facility] Bilirubin, Total 0.3 0.2 - 1.3 mg/dL [facility] Est Glomerular Filtration Rate 101 >=60 mL/min/1. 73 m?? [facility] Comment: This patient's estimated GFR [...] and symptoms in addition to eGFR. Blood 02/24/2023 12:1 6 PM EST 02/24/2023 12:22 PM EST Narrative Resulting Agency Comment Spec In Lab Kavitha Rai MD CHEMISTRY ORDERABLES [facility] [place] [address] documented in this encounter Visit Diagnoses Diagnosis [...] MIN PRN, Starting on Yvette 02/24/23 at 1200, Until Tue02/25/23 at 0440, Line Care, Flush pertains to all indwelling lines. Flush per protocol found in the job aid using the link provided on this medication record. Refer to Intravenous (IV) Job Aid: Adult Flushing & Catheter Care (3739) job aid for additional information regarding guidelines and administration., Routine Given 02/24/2023 12:12 PM EST 20 mLs documented in this encounter Care Teams Plan Checker Relationship Specialty Start Date End Date Ryan Betancourt MD [address] [place] [phone] PCP - General Family Medicine 07/29/22 documented as of this encounter
--- OUTSIDE RECORDS SUMMARY | 2024-06-01 20:42 | XMS_ITS | Encounter Summary ---
[place] [address] Care Team Providers Care Installer Technician Name Role Phone Ryan Betancourt MD Primary Care Provider [phone] Reason for Visit * Treatment/Therapy Plan Authorization (Routine) - Closed Specialty Diagnoses / Procedures Referred By Contac t Referred To Contact Diagnoses Malignant neoplasm of overlapping sites of right breast in female, estrogen receptor negative Procedures TC PERTUZUMAB, 1 MG, INJECTION [id number] (TRASTUZUMAB-ANNS) Dian Lora PA [facility] [address] [place] [address] Referral ID Status Reason Start Date Expiration Date Visits Re quested Visits Authorized [id number] Closed 12/22/2022 12/22/2023 1 105 Encounter Details Date Type Department Care Team (Latest Contact Info) Description 01/13/2023 12:17 PM EDT - 01/13/2023 12:19 PM EDT Hospital Encounter Hematology [place] [address] Malignant neoplasm of overlapping sites [...] weeks as needed. 30 g 12/09/2022 12/30/2023 ondansetron (Zofran) 8 mg tablet Take 1 tablet by mouth every 8 hours as needed for Nausea. 30 tablet 3 10/04/2022 05/03/2024 OLANZapine (ZyPREXA) 5 mg tablet Take 1 tablet by mouth nightly. Take starting the night of chemotherapy and take for 4 nights (Nights 1 through 4). 12 tablet 10/04/2022 02/24/2023 oxyCODONE-acetaminophe n (Percocet) 5-325 mg tablet Take 1 tablet by mouth every 4 hours as needed for Pain. 90 tablet 09/23/2022 03/17/2023 documented as of this encounter Progress Notes * Seth Valdes RN - 01/13/2023 5:15 PM EDT Patient Name: Soy San Patient Age: 42 y.o. Birthdate: 1980 Admit date: 01/13/2023 Attending Physician: No att. providers found DIAGNOSIS: 1. Malignant neoplasm of overlapping sites of right breast in female, estrogen receptor negative REASON FOR VISIT: Chemotherapy infusion of Pertuzumab / Trastuzumab-anns Allergies Allergen Reactions Milk Containing Products (Dairy) Tegaderm [Transparent Dressings] Skin irritation/darkening with tegaderm. Use sorbaview Other [Unclassified Drug] Hives Pollen - runny nose, itchy and watery eyes PROTOCOL: N/A CYCLE: 1 WEEK: N/A DAY: 22 SUBJECTIVE: I have had hot flashes for the last 4 months... I have muscle pains in my arms, legs & calves... I didn't have this when I was on chemo, and the muscle pains are constant... sometimes it is hard for me to walk up stairs. OBJECTIVE: Patient reports she has expressed concern to her team and does not want to take pain medication. Message sent to IGOR Curiel regarding patient concerns. Reviewed plan of care including but not limited to medication administration; patient asking appropriate questions and verbalized unde rstanding to information provided. LAB DATA: Recent Results (from the past 24 hour(s)) Comprehensive metabolic panel (non-fasting) Result Value Ref Range Glucose Lvl 98 65 - 199 mg/dL BUN 14 8 - 18 mg/dL Creatinine 0.76 0.70 - 1.20 mg/dL Sodium 141 135 - 145 mmol/L Potassium 3.9 3.5 - 5.0 mmol/L Chloride 106 98 - 107 mmol/L CO2 25 22 - 31 mmol/L Anion Gap 10 5 - 15 mmol/L Calcium 9.2 8.5 - 10.5 mg/dL Total Protein 6.5 6.1 - 8.0 g/dL Albumin 3.9 3.2 - 5.2 g/dL AST 15 0 - 30 unit/L ALT 18 0 - 30 unit/L Alk Phos 81 35 - 105 unit/L Total Bilirubin 0.4 0.2 - 1.3 mg/dL Estimated GFR 99 >=60 mL/min/1.73 m?? Cancer antigen 15-3 Result Value Ref Range CA 15-3 31 (H) <=25 unit/mL CEA Result Value Ref Range CEA 2.0 <=3.8 ng/mL Hemogram Result Value Ref Range WBC 5.7 4.0 - 9.5 x10(3)/mcL RBC 4.42 4.00 - 5.21 x10(6)/mcL Hemoglobin 12.7 11.7 - 15.5 g/dL Hematocrit 38.1 35.7 - 45.8 % MCV 86.2 82.6 - 94.4 fL MCH 28.7 27.1 - 32.0 pg MCHC 33.3 31.7 - 35.0 g/dL Platelets 232 145 - 357 x10(3)/mcL RDWSD 40.9 37.0 - 46.0 fL RDWCV 13.0 11.5 - 14.1 % MPV 10.5 7.6 - 12.9 fL nRBC % Auto 0.0 % nRBC Abs Auto 0.000 0.000 - 0.000 x10(3)/mcL Differential, Automated Result Value Ref Range Neutrophils % 56.7 % Neutr Abs (ANC) 3.21 1.70 - 6.10 x10(3)/mcL Lymphocytes % 32.7 % Lymphocytes Abs 1.8 0.9 - 3.2 x10(3)/mcL Monocytes % 5.5 % Monocyte Abs 0.3 0.3 - 0.9 x10(3)/mcL Eosinophils % 4.4 % Eosinophils Abs 0.2 0.0 - 0.4 x10(3)/mcL Basophils % 0.5 % Basophils Abs 0.0 0.0 - 0.1 x10(3)/mcL Immature Gran % 0.20 % Aliza Gran Abs 0.01 0.00 - 0.04 x10(3)/mcL IV ACCESS: Implanted Port - Single Lumen (non-apheresis) 09/10/22 0851 infraclavicular fossa, left power injectable port (Active) Port Accessed Date 01/13/23 01/13/231234 Port Accessed Time 123401/13/231234 Access Needle 19 gauge;3/4 in length 01/13/231234 Pain Prevention distraction;intradermal injection;topical anesthetic cream applied 01/13/231234 Site Preparation/Maintenance dressing: dry and intact 01/13/231704 Securement secured with sterile tape strips 01/13/231234 Lumen Patency/Care flushed without difficulty;blood return present 01/13/231704 Phlebitis 0-->no symptoms 01/13/231704 Infiltration 0-->no symptoms 01/13/231704 Site Signs/Symptoms no redness;no swelling;no warmth;no pain;no palpable cord;no streak formation;no drainage 01/13/231704 Vascular Access Port Interventions blood specimen obtained and sent to lab 01/13/231234 Port De-access Date 12/23/22 12/23/221454 Port De-Access Time 145412/23/221454 Port De-Access Indication infusion complete 12/23/221454 Chemotherapy orders independently verified for correct drug name, route and dosage per patient's height, weight and BSA by Seth Valdes RN and pharmacist. Chemotherapy administered per protocol. REACTIONS: NONE ASSESSMENT: Soy San awake and alert - observed for 30 minutes post Pertuzumab infusion without issue; tolerated treatment well. Soy San confirms that all questions andissues have been addressed. PLAN: Return to clinic as scheduled. documented in this encounter Plan of Treatment Upcoming Encounters Date Type Department Care Team (Late st Contact Info) Description 06/14/2024 8:00 AM EST Hospital Encounter [place] [address] Consuelo Joyce APRN [facility] [place] [address] 06/14/2024 8:45 AM EST Appointment XRay at [address] [place] [address] Kavitha Rai MD [facility] [address] [place] [address] 06/14/2024 9:45 AM EST Appointment Hematology and Oncology at [place] [phone] 06/14/2024 11:00 AM EST Appointment Nuclear Medicine at [place] [phone] Consuelo Joyce APRN [facility] [place] [address] 06/14/2024 1:00 PM EST Office Visit Hematology [place] [address] Kavitha Rai MD [facility] [address] [place] [address] 06/14/2024 2:30 PM EST Appointment Hematology [place] [address] 07/05/2024 10:30 AM EDT Appointment Hematology [place] [address] 07/05/2024 11:30 AM EDT Office Visit Hematology [place] [address] Consuelo Joyce APRN [facility] [place] [address] 07/05/2024 1:00 PM EDT Appointment Hematology [place] [address] 08/16/2024 9:20 AM EDT Office Visit Ophthalmology at [place] [phone] Luz Jose, [facility] [place] [address] 01/14/2025 8:30 AM EDT Office Visit Psychiatry and [place] [address] Anna Oneill, PhD [facility] [address] [place] [phone] documented as of this encounter Results * (ABNORMAL) Cancer antigen 15-3 (01/13/2023 12:40 PM EDT) Pathologist [facility] CA 15-3 31(H) <=25 unit/mL [facility] Comment: This result was generated using a Deepak Dequan immunoassay. ??Results obtained from other methods or manufacturers cannot be used interchangeably with this method. Blood 01/13/2023 12:4 0 PM EDT 01/13/2023 1:10 PM EDT Narrative Resulting Agency Comment Spec In Lab Kavitha Rai MD CHEMISTRY ORDERABLES [facility] [place] [place] [address] * Comprehensive metabolic panel (non-fasting) (01/13/2023 12:40 PM EDT) Pathologist [facility] Glucose 98 65 - 199 mg/dL [facility] Comment:Diabetes: >=200 mg/d L plus symptoms Blood Urea Nitrogen 14 8 - 18 mg/dL [facility] Creatinine 0.76 0.70 - 1.20 mg/dL [facility] Sodium 141 135 - 145 mmol/L [facility] Potassium 3.9 3.5 - 5.0 mmol/L [facility] Comment: Please note: ??Patients with WBC >100,000 may have falsely elevated Potassium levels. ??For accurate Potassium quantification in these patients send serum separator tube (gold top) for subsequent determinations. ??Contact the Clinical Chemistry Laboratory if there are any questions. Chloride 106 98 - 107 mmol/L [facility] Carbon Dioxide 25 22 - 31 mmol/L [facility] Anion Gap 10 5 - 15 mmol/L [facility] Calcium 9.2 8.5 - 10.5 mg/dL [facility] Protein, Total 6.5 6.1 - 8.0 g/dL [facility] Albumin 3.9 3.2 - 5.2 g/dL [facility] Aspartate Aminotransferase 15 0 - 30 unit/L [facility] Alanine Aminotransferase 18 0 - 30 unit/L [facility] Alkaline Phosphatase 81 35 - 105 unit/L [facility] Bilirubin, Total 0.4 0.2 - 1.3 mg/dL [facility] Est Glomerular Filtration Rate 99 >=60 mL/min/1. 73 m?? [facility] Comment: This patient's estimated GFR [...] In Lab Kavitha Rai MD CHEMISTRY ORDERABLES [facility] [place] [address] documented in this encounter Visit Diagnoses Diagnosis [...] Units, Intravenous, ONCE PRN, Starting on Yvette 01/13/23 at 1504, Until Tue01/14/23 at 0436, Line Care, Refer to Intravenous (IV) Procedure: Accessing Implanted Vascular Access Devices (654) procedure and/or Intravenous (IV) Job Aid: Adult Flushing & Catheter Care (4973) job aid for additional information regarding guidelines and administration., Routine Given 01/13/2023 5:44 PM EDT 500 Units PERTuzumab (Perjeta) 420 mg in sodium chloride 0.9% 264 mL infusion 420 mg, Intravenous, ONCE, 1 dose, On Yvette 01/13/23 at 1630, Administer over 30 Minutes, This agent is restricted to outpatient use. Is this drug being given as an outpatient? Yes New Bag 01/13/2023 3:49 PM EDT 420 mg 528 mL/hr sodium chloride 0.9% infusion 200 mL/hr, Intravenous, ONCE, 1 dose, On Tue01/13/23 at 1530 New Bag 01/13/2023 3:23 PM EDT 200 mL/hr 200 mL/hr TRASTuzumab-anns (Kanjinti) 620 mg in sodium chloride 0.9% 279.55 mL infusion 620 mg (rounded from 620.4 mg = 6 mg/kg/dose ? 103.4 kg Treatment plan Recorded weight), Intravenous, ONCE, 1 dose, On Yvette 01/13/23 at 1630, Administer over 30 Minutes, Incompatible in D5W, This agent is restricted to outpatient use. Is this drug being given as an outpatient? Yes New Bag 01/13/2023 5:05 PM EDT 620 mg 559.1 mL/hr documented in this encounter Care Teams Installer Technician Relationship Specialty Start Date End Date Ryan Betancourt MD [address] [place] [phone] PCP - General Family Medicine 07/29/22 documented as of this encounter
--- NOTE | 2024-06-01 20:43 | W.ED.GENAD ---
Discharge Plan Disposition Patient Disposition: Home Discharge Details Clinical Impression: Abrasion of left ear canal, Acute otitis media with perforated tympanic membrane Primary Care Provider: Unknown,Unknown ED Provider: Galilea Medrano Home Meds and New Rx's Prescriptions: No Action multivitamin [Daily Multi-Vitamin] 1 EACH tablet 1 tab PO DAILY ofloxacin 0.3 % drops 10 drp otic (ear) BID amoxicillin-pot clavulanate 875-125 mg tablet 1 tab PO BID omeprazole 20 mg capsule,delayed release(DR/EC) 20 mg PO DAILY Xgeva 120 mg/1.7 mL (70 mg/mL) solution 120 mg subcut .q 6 weeks Discharge Instructions Additional Instructions: Your eardrum is ruptured this did cause some bleeding, but the majority of the bleeding appears to be coming from the ear canal. Silver nitrate was applied to the area and the bleeding seems to have resolved. You can continue your oral antibiotic as well as topical antibiotic. Please follow-up with your PCP for reevaluation of your ear after the completion of your antibiotic therapy to make sure that the tympanic membrane has healed. Discharge Data Discharge Date/Time-TO BE ENTERED AT DEPARTURE: 06/01/24 20:32 HPI General Date/Time Provider Initiated Documentation: 06/01/24 20:24. Limitations to Documentation: no limitations. Information obtained by: patient. HPI Narrative: 43-year-old female with past medical history of stage IV breast cancer, currently on therapy, presents for evaluation of left ear bleeding. She reports that she has been having several days of left ear fullness feeling like it is underwater. She went to urgent care and there was some cleaning of her ear canal that took place. She reports that it was a very foul-smelling drainage and discharge coming out of her ear. She was treated for a suspected otitis media that had ruptured. She reports that the provider at the urgent care put gauze in her ear because you told her that they did not want to get any water, the patient reports that on her way home, she started having bleeding. Coming from the ear canal. She did not have any pain, just bleeding noted. She is not currently on any blood thinners. Related Data Home Medications ?Medication ?Instructions ?Recorded ?Confirmed multivitamin (Daily Multi-Vitamin 1 tab PO DAILY 05/07/15 06/01/24 tablet) amoxicillin 875 mg-potassium 1 tab PO BID 06/01/24 06/01/24 clavulanate 125 mg tablet denosumab 120 mg/1.7 mL (70 mg/mL) 120 mg subcut .q 6 weeks 06/01/24 06/01/24 subcutaneous solution (Xgeva) ofloxacin 0.3 % ear drops 10 drp otic (ear) BID 06/01/24 06/01/24 omeprazole 20 mg capsule,delayed 20 mg PO DAILY 06/01/24 06/01/24 release Allergies Allergy/AdvReac Type Severity Reaction Status Date / Time No Known Allergies Allergy Verified 06/01/24 19:54 General Stated Complaint: EarProblem KYLEE: 3 Exam Narrative Exam Narrative: Review of Systems: All systems reviewed & are unremarkable except as noted in HPI and below Well-developed, no acute distress NCAT Right TM and canal are unremarkable Left canal has some dripping blood coming from it there appears to be a focus of bleeding at 3:00 just on the anterior aspect of the canal. The TM does appear to be ruptured and there is some blood in the back of the canal but the TM, but there is no active bleeding coming from the membrane RRR Unlabored respiratory effort Course Vital Signs Vital signs: Vital Signs Temperature 36.6 C 06/01/24 19:47 Pulse 118 H 06/01/24 19:47 Respiratory Rate 18 06/01/24 19:47 Blood Pressure 169/125 H 06/01/24 19:47 Pulse Oximetry 97 06/01/24 19:47 Temperature 36.6 C 06/01/24 19:47 Temperature Source Temporal Artery Scan 06/01/24 19:47 Pulse 118 H 06/01/24 19:47 Respiratory Rate 20 06/01/24 20:18 Respiratory Effort Normal 06/01/24 20:18 Respiratory Depth Normal 06/01/24 20:18 Respiratory Pattern Normal 06/01/24 20:18 Blood Pressure 169/125 H 06/01/24 19:47 Blood Pressure Position Sitting 06/01/24 19:47 Pulse Oximetry 99 06/01/24 20:18 Oxygen Delivery Method Room Air 06/01/24 19:47 Oxygen Flow Rate 0 06/01/24 19:47 Pain Level 0 06/01/24 20:18 Medical Decision Making Emergent evaluation of ear bleeding. The patient had a recent urgent care visit this evening during which she reports that her ear was cleaned out using an ear curette. She states that she was unaware of any bleeding at that time. Patient is not on any anticoagulant. A silver nitrate stick was used along the canal edge which seems to have stopped the bleeding. I did not observe any additional bleeding coming from the TM perforation. The patient was prescribed Augmentin and ofloxacin drops by the urgent care and advised that she should start these medications. Recommend close follow-up with her PCP for reevaluation of the canal and eardrum after completion of therapy. Return precautions advised. Quality:SDOH Health Related Social Needs: No Data to Display PFSH All Active Problems (Updated 06/01/24 @ 20:28 by Galilea Medrano MD) Acute otitis media with perforated tympanic membrane (Acute) Abrasion of left ear canal (Acute) Abnormal mammogram (Acute) Mass of right breast (Acute) Breast pain, right (Acute) Migraine (Chronic) Seizure disorder (Chronic) Surgical History History of bilateral tubal ligation Social History Smoking/Tobacco Use Status: Former Tobacco Use Smoking risk assessment performed?: Yes Alcohol Intake: current Alcohol Intake frequency: a few times a month Drug use: Never Substance use type: does not use Household members: significant other and family Number of Children: 1 Do you need help understanding health information?: Rarely 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 Date GA/Weeks # Preg Succ Route Wgt Sex Labor Lgth Anesthesia Location Prov Complic 12/12/00 41 No Yes vaginal 3968.933 g Male [facility] Delivery Date: 12/12/00 Last Updated by: Dayana Hurst
--- OUTSIDE RECORDS SUMMARY | 2024-06-01 20:43 | XMS_ITS | Encounter Summary ---
Author Organization Formerly [facility] Address [facility] [place] [address] Care Team Providers Care Artillery Maintenance Supervisor Name Role Phone Ryan Betancourt MD Primary Care Provider [phone] Encounter Details Date Type Department Care Team (Late st Contact Info) Description 11/01/2022 Notes Only Care Management [facility] [place] [phone] Lilian Gipson, STREET CONTRACTOR Social History Tobacco Use Types Packs/Day Years [...] Progress Notes * Lilian Gipson MSW - 11/01/2022 4:11 PM EDT I'm able to submit application to [employer] for $350 contribution toward [employer]. I follow up with [employer] via e-mail to confirm. Completed today: Financial resources Community Resource documented in this encounter Plan of Treatment Upcoming Encounters Date Type Department Care Team (Late st Contact Info) Description 06/14/2024 8:00 AM EST Hospital Encounter [place] [phone] Consuelo Joyce APRN [facility] [place] [address] 06/14/2024 8:45 AM EST Appointment XRay at [address] [place] [address] Kavitha Rai MD [facility] DR HEMATOLOGY [place] [address] 06/14/2024 9:45 AM EST Appointment Hematology [place] [phone] 06/14/2024 11:00 AM EST Appointment [place] [phone] Sacks, Consuelo L, [facility] [place] [address] 06/14/2024 1:00 PM EST Office Visit Hematology and Oncology at [place] [address] Kavitha Rai MD [facility] [place] [address] 06/14/2024 2:30 PM EST Appointment Hematology and Oncology at [place] [address] 07/05/2024 10:30 AM EDT Appointment Hematology and Oncology at [place] [address] 07/05/2024 11:30 AM EDT Office Visit Hematology and Oncology at [place] [address] Consuelo Joyce [facility] [place] [address] 07/05/2024 1:00 PM EDT Appointment Hematology [place] [address] 08/16/2024 9:20 AM EDT Office Visit Ophthalmology at [place] [address] Luz Jose, [facility] [place] [address] 01/14/2025 8:30 AM EDT Office Visit Psychiatry and Behavioral Health at [address] Anna Oneill, PhD [facility] [place] [address] documented as of this encounter Visit Diagnoses Not on filedocumented in this encounter Care Teams Artillery Maintenance Supervisor Relationship Specialty Start Date End Date Ryan Betancourt MD [address] [place] [phone] PCP - General Family Medicine 07/29/22 documented as of this encounter
--- OUTSIDE RECORDS SUMMARY | 2024-06-01 20:43 | XMS_ITS | Encounter Summary ---
Author Organization [facility] Address [facility] [place] [address] Care Team Providers Care Cooling Tower Operator Name Role Phone Ryan Betancourt MD Primary Care Provider [phone] Encounter Details Date Type Department Care Team (Latest Contact Info) Description 11/23/2022 Travel Social History Tobacco Use Types Packs/Day [...] AM EST Hospital Encounter [place] [address] Consuelo Joyce APRN [facility] [place] [address] 06/14/2024 8:45 AM EST Appointment XRay at [address] [place] [address] Kavitha Rai MD [facility] DR HEMATOLOGY [place] [address] 06/14/2024 9:45 AM EST Appointment Hematology [place] [address] 06/14/2024 11:00 AM EST Appointment [place] [address] Consuelo Joyce APRN [facility] [place] [address] 06/14/2024 1:00 PM EST Office Visit Hematology [place] [address] Kavitha Rai MD [facility] HEMATOLOGY [place] [address] 06/14/2024 2:30 PM EST Appointment Hematology [place] [address] 07/05/2024 10:30 AM EDT Appointment Hematology and Oncology at [place] [phone] 07/05/2024 11:30 AM EDT Office Visit Hematology and Oncology at [place] [phone] Consuelo Joyce APRN [facility] [place] [address] 07/05/2024 1:00 PM EDT Appointment Hematology and Oncology at [place] [address] 08/16/2024 9:20 AM EDT Office Visit Ophthalmology at [place] [phone] Luz Jose, OD [facility] [place] [address] 01/14/2025 8:30 AM EDT Office Visit Psychiatry and Behavioral Health at [place] [address] Anna Oneill, PhD [facility] [place] [address] documented as of this encounter Visit Diagnoses Not on filedocumented in this encounter Care Teams Cooling Tower Operator Relationship Specialty Start Date End Date Ryan Betancourt MD [address] [place] [phone] PCP - General Family Medicine 07/29/22 documented as of this encounter
--- OUTSIDE RECORDS SUMMARY | 2024-06-01 20:43 | XMS_ITS | Encounter Summary ---
Author Organization [facility] Address [facility] [place] [address] Care Team Providers Care Power Line Installer Name Role Phone Ryan Betancourt MD Primary Care Provider [phone] Reason for Referral * Consultation (Routine) - Closed Specialty Diagnoses / Procedures Referred By Ciaran lopez Referred To Contact Dermatology Diagnoses Malignant neoplasm of overlapping sites of right breast in female, estrogen receptor negative Kavitha Rai MD [facility] [place] [address] [facility] Dermatology [address] [place] [address] Referral ID Status Reason Start Date Expiration Date V isits Requested Visits Authorized [id number] Closed Consult, Test & Treat 12/08/2022 12/08/2023 1 1 Encounter Details Date Type Department Care Team (Late st Contact Info) Description 12/07/2022 Orders Only Hematology [place] [address] Kavitha Rai MD [facility] [place] [address] Malignant neoplasm of overlapping sites of right [...] AM EST Hospital Encounter [place] [phone] Consuelo Joyce APRN [facility] [place] [address] 06/14/2024 8:45 AM EST Appointment XRay at [address] [place] [phone] Kavitha Rai MD [facility] [address] [place] [address] 06/14/2024 9:45 AM EST Appointment Hematology and Oncology at [address] 06/14/2024 11:00 AM EST Appointment Nuclear Medicine at [address] Consuelo Joyce [facility] [place] [place] [address] 06/14/2024 1:00 PM EST Office Visit Hematology and Oncology at [address] Kavitha Rai MD [facility] [address] [place] [address] 06/14/2024 2:30 PM EST Appointment Hematology and Oncology at [place] [phone] 07/05/2024 10:30 AM EDT Appointment Hematology and Oncology at [place] [phone] 07/05/2024 11:30 AM EDT Office Visit Hematology and Oncology at [place] [phone] Consuelo Joyce [facility] [place] [place] [address] 07/05/2024 1:00 PM EDT Appointment Hematology and Oncology at [place] [phone] 08/16/2024 9:20 AM EDT Office Visit Ophthalmology at [place] [phone] Luz Jose OD [facility] OPHTHALMOLOGY [place] [phone] 01/14/2025 8:30 AM EDT Office Visit Psychiatry and [place] [address] Anna Oneill, PhD [facility] [place] [address] Scheduled Referrals Name Type Priority Associated Diagnoses Orde r Schedule Referral to Dermatology Outpatient Referral Routine Malignant neoplasm of overlapping sites of right breast in female, estrogen receptor negative Ordered: 12/08/2022 documented as of this encounter Visit Diagnoses Diagnosis Malignant neoplasm of overlapping sites of right breast in female, estrogen receptor negative documented in this encounter Care Teams Power Line Installer Relationship Specialty Start Date End Date Ryan Betancourt MD [address] [place] [phone] PCP - General Family Medicine 07/29/22 documented as of this encounter
--- OUTSIDE RECORDS SUMMARY | 2024-06-01 20:43 | XMS_ITS | Encounter Summary ---
Author Organization [facility] [place] [address] Care Team Providers Care Telegraph Office Manager Name Role Phone Ryan Betancourt MD Primary Care Provider [phone] Encounter Details Date Type Department Care Team (Late st Contact Info) Description 11/10/2022 Orders Only Hematology and Oncology at [facility] [place] [phone] Dian Lora PA Social History Tobacco Use [...] Hospital Encounter Nuclear Medicine at [place] [phone] Consuelo Joyce [facility] [place] [address] 06/14/2024 8:45 AM EST Appointment XRay at [address] [place] [phone] Kavitha Rai MD [facility] DR [place] [address] 06/14/2024 9:45 AM EST Appointment Hematology [place] [phone] 06/14/2024 11:00 AM EST Appointment [place] [phone] Consuelo Joyce [facility] [place] [address] 06/14/2024 1:00 PM EST Office Visit Hematology [place] [phone] Kavitha Rai MD [facility] DR [place] [address] 06/14/2024 2:30 PM EST Appointment Hematology and Oncology at [place] [address] 07/05/2024 10:30 AM EDT Appointment Hematology and Oncology at [place] [phone] 07/05/2024 11:30 AM EDT Office Visit Hematology and Oncology at [place] [address] Consuelo Joyce APRN [facility] [place] [address] 07/05/2024 1:00 PM EDT Appointment Hematology and Oncology at [place] [address] 08/16/2024 9:20 AM EDT Office Visit Ophthalmology at [place] [address] Luz Jose, CARSON [facility] [place] [place] [address] 01/14/2025 8:30 AM EDT Office Visit Psychiatry and Behavioral Health at [place] [address] Anna Oneill, PhD [facility] [place] [place] [address] documented as of this encounter Visit Diagnoses Not on filedocumented in this encounter Care Teams Telegraph Office Manager Relationship Specialty Start Date End Date Ryan Betancourt MD [address] [place] [phone] PCP - General Family Medicine 07/29/22 documented as of this encounter
--- OUTSIDE RECORDS SUMMARY | 2024-06-01 20:43 | XMS_ITS | Encounter Summary ---
Author Organization [facility] [place] [address] Care Team Providers Care Dairy Farmer Name Role Phone Ryan Betancourt MD Primary Care Provider [phone] Reason for Visit * Reason Onset Date Comments Other 11/25/2022 Return to work yony rendon Encounter Details Date Type Department Care Team (Late st Contact Info) Description 11/25/2022 Telephone Hematology [place] [phone] Madeline Verdugo, RN Other (Return to work letter) Social History Tobacco Use Types Packs/Day Years [...] Telephone Encounter - Madeline Verdugo RN - 11/25/2022 7:29 AM EDT Return to work letter requested via [employer] message from patient. Appt. Date 12/02 Date requested 12/10 Could you have something ready and available a note to my employer, stating that I can go back to work being the fact that I???ve been out for this long she just wants to know I know I was never hadto be out of work. I didn???t know how chemo was going to affect me and everything else like that so I took the time off. She just wants a doctors note to state that I am OK to return to work if you could do, that would be greatly appreciated. Letter written and pended to provider for review and signature if in agreement. Letter signed and printed for patient's documented in this encounter Plan of Treatment Upcoming Encounters Date Type Department Care Team (Late st Contact Info) Description 06/14/2024 8:00 AM EST Hospital Encounter [place] [address] Consuelo Joyce APRN [facility] [place] [address] 06/14/2024 8:45 AM EST Appointment XRay at [address] [place] [phone] Kavitha Rai MD [facility] [address] [place] [address] 06/14/2024 9:45 AM EST Appointment Hematology and Oncology at [place] [phone] 06/14/2024 11:00 AM EST Appointment Nuclear Medicine at [place] [phone] Consuelo Joyce [employer] [facility] [place] [address] 06/14/2024 1:00 PM EST Office Visit Hematology and Oncology at [place] [phone] Kavitha Rai MD [facility] [address] [place] [address] 06/14/2024 2:30 PM EST Appointment Hematology and Oncology at [place] [phone] 07/05/2024 10:30 AM EDT Appointment Hematology and Oncology at [place] [phone] 07/05/2024 11:30 AM EDT Office Visit Hematology and Oncology at [place] [phone] Consuelo Joyce [facility] [place] [place] [address] 07/05/2024 1:00 PM EDT Appointment Hematology [place] [address] 08/16/2024 9:20 AM EDT Office Visit Ophthalmology at [place] [phone] Luz Jose, OD [facility] [place] [address] 01/14/2025 8:30 AM EDT Office Visit Psychiatry and [place] [address] Anna Oneill, PhD [facility] [place] [address] documented as of this encounter Visit Diagnoses Not on filedocumented in this encounter Care Teams Dairy Farmer Relationship Specialty Start Date End Date Ryan Betancourt MD [address] [place] [phone] PCP - General Family Medicine 07/29/22 documented as of this encounter
--- OUTSIDE RECORDS SUMMARY | 2024-06-01 20:43 | XMS_ITS | Encounter Summary ---
Author Organization [facility] [place] [address] Care Team Providers Care Skip Miner Blasting Name Role Phone Ryan Betancourt MD Primary Care Provider Encounter Details Date Type Department Care Team (Late st Contact Info) Description 12/08/2022 Telephone Hematology and Oncology at [facility] [place] [phone] Tara Bob RN Social History Tobacco Use Types Packs/Day Years [...] encounter Miscellaneous Notes * Telephone Encounter - Tara Bob RN - 12/08/2022 10:51 AM EDT TRIAGE CALL Call placed to Soo at the request of Dr. Rai. Dr. Rai wants her to see Dermatology, she placed a referral and I called over to let them know per Dr. Rai she is hoping Soo can be seen tomorrow or at least this week given pain and worsening skin sites. Dermatology said they would reach out directly to Soo to schedule. Provided return # forher to call us back with any questions. * Telephone Encounter - Tara Bob RN - 12/08/2022 10:51 AM EDT ----- Message from Consuelo Pitts sent at 12/08/2022 10:34 AM EDT ----- Regarding: Rashes getting worse Contact: Good morning Soo just called and let me know that she has continued rash in genital area and under breasts for several weeks that is continuing to worsen. She tried a cream, then at last week's appt, LV suggestedusing poweder in both areas to keep dry as possible. However, Soo states she is applying powder to both areas sever times a day and wont stay dry. Rash is now more painful and itchy and skin in both areas is starting to break down and fall off and is now bleeding. States that this is incredibly painful and is willing to go to ED, but isn't sure if there's something else she should do. Would you please give her a call [phone] to advise? She asks for detailed vm if she misses the call documented in this encounter Plan of Treatment Upcoming Encounters Date Type Department Care Team (Late st Contact Info) Description 06/14/2024 8:00 AM EST Hospital Encounter Nuclear Medicine at [place] [phone] Consuelo Joyce [facility] [place] [address] 06/14/2024 8:45 AM EST Appointment XRay at [address] [place] [address] Kavitha Rai MD [facility] [place] [address] 06/14/2024 9:45 AM EST Appointment Hematology [place] [address] 06/14/2024 11:00 AM EST Appointment [place] [phone] Consuelo Joyce [facility] [place] [address] 06/14/2024 1:00 PM EST Office Visit Hematology [place] [phone] Kavitha Rai MD [facility] [place] [address] 06/14/2024 2:30 PM EST Appointment Hematology [place] [phone] 07/05/2024 10:30 AM EDT Appointment Hematology [place] [address] 07/05/2024 11:30 AM EDT Office Visit Hematology [place] [phone] Consuelo Joyce APRN [facility] [place] [address] 07/05/2024 1:00 PM EDT Appointment Hematology [place] [address] 08/16/2024 9:20 AM EDT Office Visit Ophthalmology at [place] [phone] Luz Jose, [facility] [place] [address] 01/14/2025 8:30 AM EDT Office Visit Psychiatry and Behavioral Health at [place] [phone] Anna Oneill, PhD [facility] [place] [address] documented as of this encounter Visit Diagnoses Not on filedocumented in this encounter Care Teams Skip Miner Blasting Relationship Specialty Start Date End Date Ryan Betancourt MD [address] [place] [phone] PCP - General Family Medicine 07/29/22 documented as of this encounter
--- OUTSIDE RECORDS SUMMARY | 2024-06-01 20:43 | XMS_ITS | Encounter Summary ---
Author Organization [facility] Address [facility] [place] [address] Care Team Providers Care Tariff Expert Name Role Phone Ryan Betancourt MD Primary Care Provider [phone] Encounter Details Date Type Department Care Team (Latest Contact Info) Description 11/04/2022 Travel Social History Tobacco Use Types Packs/Day [...] AM EST Hospital Encounter [place] [address] Consuelo Joyce APRN [facility] [place] [address] 06/14/2024 8:45 AM EST Appointment XRay at [address] [place] [address] Kavitha Rai MD [facility] [address] HEMATOLOGY [place] [address] 06/14/2024 9:45 AM EST Appointment Hematology [place] [address] 06/14/2024 11:00 AM EST Appointment [place] [address] Consuelo Joyce APRN [facility] [place] [address] 06/14/2024 1:00 PM EST Office Visit Hematology [place] [address] Kavitha Rai MD [facility] HEMATOLOG[facility] [place] [address] 06/14/2024 2:30 PM EST Appointment Hematology [place] [address] 07/05/2024 10:30 AM EDT Appointment Hematology and Oncology at [place] [phone] 07/05/2024 11:30 AM EDT Office Visit Hematology and Oncology at [place] [phone] Consuelo Joyce APRN [facility] [place] [address] 07/05/2024 1:00 PM EDT Appointment Hematology and Oncology at [place] [address] 08/16/2024 9:20 AM EDT Office Visit Ophthalmology at [place] [phone] Luz Jose, OD [facility] [place] [address] 01/14/2025 8:30 AM EDT Office Visit Psychiatry and Behavioral Health at [place] [address] Anna Oneill, PhD [facility] [place] [address] documented as of this encounter Visit Diagnoses Not on filedocumented in this encounter Care Teams Tariff Expert Relationship Specialty Start Date End Date Ryan Betancourt MD [address] [place] [phone] PCP - General Family Medicine 07/29/22 documented as of this encounter
--- OUTSIDE RECORDS SUMMARY | 2024-06-01 20:43 | XMS_ITS | Encounter Summary ---
[place] [address] Care Team Providers Care Chairman And Chief Executive Officer Name Role Phone Ryan Betancourt MD Primary Care Provider [phone] Reason for Referral * Diagnostic Test (Routine) - Closed Specialty Diagnoses / Procedures Referred By Ciaran lopez Referred To Contact Radiology Diagnoses Malignant neoplasm of overlapping sites of right breast in female, estrogen receptor negative Procedures NM PET CT Skull Base to Mid-thigh Kavitha Rai MD [facility] [place] [address] [place] [address] Referral ID Status Reason Start Date Expiration Date V isits Requested Visits Authorized [id number] Closed Specialty Service Requested 11/11/2022 05/14/2024 1 2 Reason for Visit * Diagnostic Test (Routine) - Closed Specialty Diagnoses / Procedures Referred By Ciaran lopez Referred To Contact Radiology Diagnoses Malignant neoplasm of overlapping sites of right breast in female, estrogen receptor negative Procedures NM PET CT Skull Base to Mid-thigh Kavitha Rai MD [facility] [place] [address] [place] [address] Referral ID Status Reason Start Date Expiration Date V isits Requested Visits Authorized [id number] Closed Specialty Service Requested 11/11/2022 05/14/2024 1 2 Encounter Details Date Type Department Care Team (Latest Contact Info) Description 11/23/2022 11:54 AM EDT - 11/23/2022 11:59 PM EDT Hospital Encounter [place] [phone] Kavitha Rai MD [facility] [place] [address] Malignant neoplasm of overlapping sites of right [...] g 08/25/2022 omeprazole (PriLOSEC) [address] capsule Take [...] AM EST Hospital Encounter [place] [phone] Consuelo Joyce APRN [facility] [place] [address] 06/14/2024 8:45 AM EST Appointment XRay at [address] [place] [phone] Kavitha Rai MD [facility] HEMATOLOGY [place] [address] 06/14/2024 9:45 AM EST Appointment Hematology and Oncology at [address] 06/14/2024 11:00 AM EST Appointment [place] [phone] Consuelo Joyce APRN [facility] [place] [place] [address] 06/14/2024 1:00 PM EST Office Visit Hematology and Oncology at [address] Kavitha Rai MD [facility] [place] [address] 06/14/2024 2:30 PM EST Appointment Hematology and Oncology at [place] [phone] 07/05/2024 10:30 AM EDT Appointment Hematology and Oncology at [address] 07/05/2024 11:30 AM EDT Office Visit Hematology and Oncology at [place] [phone] Consuelo Joyce [facility] [place] [address] 07/05/2024 1:00 PM EDT Appointment Hematology and Oncology at [place] [phone] 08/16/2024 9:20 AM EDT Office Visit Ophthalmology at [place] [phone] Luz Jose OD [facility] [place] [address] 01/14/2025 8:30 AM EDT Office Visit Psychiatry and [place] [address] Anna Oneill, PhD [facility] [place] [address] documented as of this encounter Procedures Procedure Name Priority Date/Time Associated Diagnosis Comments NM PET CT SKULL BASE TO MID-THIGH ([facility]) Routine 11/23/2022 1:38 PM EDT Malignant neoplasm of overlapping sites of right breast in female, estrogen receptor negative documented in this encounter Results * NM PET CT Skull Base to Mid-thigh (11/23/2022 1:38 PM EDT) Anatomical Region Laterality Modality Positron Emissio n Tomography (PET) Impressions 11/23/2022 5:16 PM EDT 1. ??There has been a dramatic response to chemotherapy with decrease in size and near complete resolution of metabolic uptake of the multiple right breast masses, improved skin thickening, resolution of extensive adenopathy, and resolution of metabolically active hepatic metastases. 2. ??There has been healing of multiple bone metastases with sclerotic lesions now evident with no new, active osseous lesions identified. The significant increase in reactive marrow uptake does limit evaluation for subtle FDG avid lesions. 3. ??No new sites of metastatic disease. 4. ??Incidental, asymmetric intense FDG uptake within the right vocal cord. Please correlate for any vocal cord dysfunction. Thank you for letting us participate in the care of this patient. ??If you are a health care provider and have any questions regarding this report, please contact the number below. ??For patients who have questions please contact the health daytime caregiver that requested your imaging first. ? Narrative 11/23/2022 5:16 PM EDT EXAMINATION: NM PET CT STANDARD SKULL BASE TO MID-THIGH CLINICAL HISTORY: Adrenal cancer, assess treatment response; Colorectal cancer, assess treatment response Patient has a history of stage IV, HER-2/alexa enriched breast cancer, on treatment with THP. TECHNIQUE: Following IV injection of 87-gocpnh-9-deoxyglucose (FDG) a standard uptake of approximately 60 minutes, a noncontrast CT scan followed by a PET scan were acquired from the base of the skull to mid thighs. The noncontrast CT was used for anatomic localization and photon attenuation correction of the PET scan. Blood glucose level: 106 (mg/dL) FDG dose: 15.5 mCi Blood pool: 2.1 MEAN Liver mean: 2.3 MEAN COMPARISON: PET scan 07/28/2022 FINDINGS: HEAD/NECK: There is focal uptake within the right vocal cord, asymmetric to the left.. Otherwise physiologic head and neck uptake is identified. There is no cervical adenopathy. CHEST: Skin thickening has improved and multiple and multiple right breast masses have significantly decreased in size and metabolic uptake. Residual posterior central mass measures 3.1 x 8.3 cm, image 80, and with essentially background FDG activity with SUV maximum of 2.8, previously 4.8 x 3.4 cm and SUV maximum 22.4. Extensive right upper and lower axillary and right supraclavicular adenopathy has also significantly decreased both in size and metabolic activity with only background metabolic activity present and no residual enlarged lymph nodes. Similarly, the mediastinal, hilar, and internal mammary adenopathy has resolved. The previous lytic sternal lesion has healed and is now sclerotic. There is a small hiatal hernia. Left chest port is in good position. No significant pleural or pericardial effusion. ABDOMEN/PELVIS: No residual metabolic uptake is seen within prior liver metastases. Furthermore, no residual hypodense lesions can be seen on the noncontrast portion of the CT. No new liver lesions. No abdominal or pelvic adenopathy. No acute inflammatory changes are found. SKELETON/EXTREMITIES: There is diffusely increased bone marrow activity suggesting reactive bone marrow. There are numerous sclerotic lesions now apparent, consistent with healed metastases, for example there is a 1.4 cm sclerotic lesion within the S1 vertebral body, image 191. No pathologic fractures are seen. No new aggressive lytic lesions are identified. Procedure Note Jyothi Askew MD - 11/23/2022 EXAMINATION: NM PET CT STANDARD SKULL BASE TO MID-THIGH CLINICAL HISTORY: Adrenal cancer, assess treatment response; Colorectalcancer, assess treatment response Patient has a history of stage IV, HER-2/alexa enriched breast cancer, on treatment with THP. TECHNIQUE: Following IV injection of 26-tppmcj-5-deoxyglucose (FDG) astandard uptake of approximately 60 minutes, a noncontrast CT scan followed by aPET scan were acquired from the base of the skull to mid thighs. The noncontrast CTwas used for anatomic localization and photon attenuation correction of thePET scan. Blood glucose level: 106 (mg/dL) FDG dose: 15.5 mCi Blood pool: 2.1 MEAN Liver mean: 2.3 MEAN COMPARISON: PET scan 07/28/2022 FINDINGS: HEAD/NECK: There is focal uptake within the right vocal cord, asymmetric to theleft.. Otherwise physiologic head and neck uptake is identified. There is nocervical adenopathy. CHEST: Skin thickening has improved and multiple and multiple right breast masseshave significantly decreased in size and metabolic uptake. Residual posteriorcentral mass measures 3.1 x 8.3 cm, image 80, and with essentially backgroundFDG activity with SUV maximum of 2.8, previously 4.8 x 3.4 cm and SUV [id number]. Extensive right upper and lower axillary and right supraclavicularadenopathy has also significantly decreased both in size and metabolic activity withonly background metabolic activity present and no residual enlarged lymphnodes. Similarly, the mediastinal, hilar, and internal mammary adenopathy hasresolved. The previous lytic sternal lesion has healed and is now sclerotic. There is a small hiatal hernia. Left chest port is in good position. No significant pleural or pericardial effusion. ABDOMEN/PELVIS: No residual metabolic uptake is seen within prior liver metastases.Furthermore, no residual hypodense lesions can be seen on the noncontrast portion ofthe CT. No new liver lesions. No abdominal or pelvic adenopathy. No acuteinflammatory changes are found. SKELETON/EXTREMITIES: There is diffusely increased bone marrow activity suggesting reactivebone marrow. There are numerous sclerotic lesions now apparent, consistentwith healed metastases, for example there is a 1.4 cm sclerotic lesion withinthe S1 vertebral body, image 191. No pathologic fractures are seen. No newaggressive lytic lesions are identified. IMPRESSION 1. There has been a dramatic response to chemotherapy with decrease insize and near complete resolution of metabolic uptake of the multiple rightbreast masses, improved skin thickening, resolution of extensive adenopathy,and resolution of metabolically active hepatic metastases. 2. There has been healing of multiple bone metastases with scleroticlesions now evident with no new, active osseous lesions identified. Thesignificant increase in reactive marrow uptake does limit evaluation for subtle FDGavid lesions. 3. No new sites of metastatic disease. 4. Incidental, asymmetric intense FDG uptake within the right vocalcord. Please correlate for any vocal cord dysfunction. Thank you for letting us participate in the care of this patient. If youare a health care provider and have any questions regarding this report,please contact the number below. For patients who have questions please contactthe health daytime caregiver that requested your imaging first. Kavitha Rai [...] Intravenous, ONCE PRN, 1 dose, Starting on Tue11/23/22 at 1244, Until Tue11/23/22 at 1210, Per Protocol, Radiology Contrast, Routine Given 11/23/2022 12:10 PM EDT 15.5 mCi Right Arm documented in this encounter Care Teams Chairman And Chief Executive Officer Relationship Specialty Start Date End Date Ryan Betancourt MD [address] [place] [phone] PCP - General Family Medicine 07/29/22 documented as of this encounter
--- OUTSIDE RECORDS SUMMARY | 2024-06-01 20:43 | XMS_ITS | Encounter Summary ---
Author Organization [facility] Address [facility] [place] [address] Care Team Providers Care Transaction Advisory Services Manager Name Role Phone Ryan Betancourt MD Primary Care Provider [phone] Encounter Details Date Type Department Care Team (Late st Contact Info) Description 12/23/2022 9:00 AM EDT Office Visit Dermatology at [facility] [address] [place] [address] Genevieve Keller MD [facility] DR CHARY [place] [address] Intertrigo; Tinea pedis of both feet Social History Tobacco Use Types Packs/Day Years [...] place to sleep or slept in a fci (including now)? No 07/29/2022 Sex and Gender Information Value Date Recorded Sex Assigned at Not on file Gender Identity Not on file Sexual Orientation Not on file documented as of this encounter Progress Notes * Genevieve Keller MD - 12/23/2022 9:00 AM EDT Images from the original note were not included. DEPARTMENT OF DERMATOLOGY Medical Dermatology Clinic Provider: Genevieve Keller MD Patient's preferred name Soo Preferred contact method for results []Phone []myD-H []Letter Detailed phone message OK? Y Are there any other people with whom we may discuss your care? Y Past Medical History Date, location, treatment Melanoma N Dysplastic nevi N SCC N BCC N AKs N UV Exposure & Protection + history of blistering sunburn Other relevant past medical history 2022 Breast Cancer (in treatment now) presently on THP (Ruthy regimen Family History Details Melanoma N NMSC N Other relevant family history N Social History Occupation: ? Hobbies: hiking, walking Other: Pre-Procedure Questions Details Allergy to lidocaine, epinephrine, Dermabond, chlorhexidine, or adhesives N Bleeding disorder or blood thinners N Implanted devices (Pacemaker, defibrillator, deep brain stimulator, cochlear implant) N History of Present Illness: Soy Soo Theodore Mena is a 42 y.o. Patient returns to clinic today for a rash FUV. She reports improvement under the breasts and inguinal folds but no improvement in thefeet. Last visit at Dermatology: 12/09/2022 Last visit with this provider: 12/09/2022 Medications: Reviewed in eD-H Allergies: Reviewed in eD-H Skin Examination: Focused skin examination of the inframammary, inguinal folds and BL feet was normal with the exception of the findings below. Assessment/Plan #.Favor Resolving intertrigo with Bacterial Strep & Yeast superinfection, Much improved on examtoday. (Figures 1-3) - c/w Rx hydrocortisone 2.5% cream twice daily x 1 more week, then weekends only - c/w Rx ketoconazole 2% cream twice daily x 1 more week, then weekends only Instructions: Mix equal amounts of both creams and apply mixture topically to affected areas on thepannus, feet and breasts twice daily for 2 weeks as needed. - c/w Rx: cephalexin (Keflex) 500 mg; Take one tablet by mouth four times daily for 14 days -Plan for RTC in two weeks #. Tinea Pedis (Athlete's Foot) - Moccassin distribution of thin pink plaque with well demarcated annular border accentuation and scaling (figures 4-5) - s/p EROS floridly positive - Discussed etiology. - c/w Rx ketoconazole 2% cream twice daily x 2 weeks, can continue daily until clearance. otherwisewill start econazole Figure 1 Figure 2 Figure 3 Figure 4 Figure 5 Photo(s) taken and charted with patient's verbal consent. Other: N/A RTC: will message me in 2 weeks, otherwise prn []Note routed to secretary book keeper []Recall placed in scheduling system []Appointment scheduled at checkout Scribe attestation: Isiah Mansfield has performed the documentation for this encounter in the presence of and acting as a scribe for Genevieve Keller MD. I performed the above scribed service and agree with the accuracy of the documentation in this encounter. Reviewed and signed by: Genevieve Keller MD Dermatology Replaced By [facility] Patient seen and evaluated with staff machine cloth trimmer: Eduarda Murphy MD Dermatology Replaced By [facility] * Eduarda Murphy MD - 12/23/2022 9:00 AM EDT I directly supervised the Dermatology [...] EST Hospital Encounter [place] [address] Consuelo Joyce [facility] [place] [address] 06/14/2024 8:45 AM EST Appointment XRay at [address] [place] [address] Kavitha Rai MD [facility] DR HEMATOLOGY [place] [address] 06/14/2024 9:45 AM EST Appointment Hematology [place] [address] 06/14/2024 11:00 AM EST Appointment [place] [address] Consuelo Joyce [facility] [place] [address] 06/14/2024 1:00 PM EST Office Visit Hematology [place] [address] Kavitha Rai MD [facility] DR HEMATOLOGY [place] [address] 06/14/2024 2:30 PM EST Appointment Hematology and Oncology at [place] [phone] 07/05/2024 10:30 AM EDT Appointment Hematology and Oncology at [place] [phone] 07/05/2024 11:30 AM EDT Office Visit Hematology and Oncology at [place] [address] Consuelo Joyce APRN [facility] [place] [address] 07/05/2024 1:00 PM EDT Appointment Hematology and Oncology at [place] [phone] 08/16/2024 9:20 AM EDT Office Visit Ophthalmology at [place] [address] Luz Jose, CARSON [facility] [place] [address] 01/14/2025 8:30 AM EDT Office Visit Psychiatry and Behavioral Health at [place] [address] Anna Oneill, PhD [facility] [place] [address] documented as of this encounter Visit Diagnoses Diagnosis Intertrigo Other specified erythematous condition Tinea pedis of both feet documented in this encounter Care Teams Transaction Advisory Services Manager Relationship Specialty Start Date End Date Ryan Betancourt MD [address] [place] [phone] PCP - General Family Medicine 07/29/22 documented as of this encounter
--- OUTSIDE RECORDS SUMMARY | 2024-06-01 20:43 | XMS_ITS | Encounter Summary ---
Author Organization [facility] Address [facility] [place] [address] Care Team Providers Care Tree Inspector Name Role Phone Ryan Betancourt MD Primary Care Provider [phone] Encounter Details Date Type Department Care Team (Latest Contact Info) Description 11/11/2022 Travel Social History Tobacco Use Types Packs/Day [...] AM EST Hospital Encounter [place] [address] Consuelo Joyce APRN [facility] [place] [address] 06/14/2024 8:45 AM EST Appointment XRay at [address] [place] [address] Kavitha Rai MD [facility] DR HEMATOLOGY [place] [address] 06/14/2024 9:45 AM EST Appointment Hematology [place] [address] 06/14/2024 11:00 AM EST Appointment [place] [address] Consuelo Joyce APRN [facility] [place] [address] 06/14/2024 1:00 PM EST Office Visit Hematology [place] [address] Kavitha Rai MD [facility] HEMATOLOGY [place] [address] 06/14/2024 2:30 PM EST Appointment Hematology [place] [address] 07/05/2024 10:30 AM EDT Appointment Hematology and Oncology at [place] [phone] 07/05/2024 11:30 AM EDT Office Visit Hematology and Oncology at [place] [phone] Consuelo Joyce APRN [facility] [place] [address] 07/05/2024 1:00 PM EDT Appointment Hematology and Oncology at [place] [address] 08/16/2024 9:20 AM EDT Office Visit Ophthalmology at [place] [phone] Luz Jose, OD [facility] [place] [address] 01/14/2025 8:30 AM EDT Office Visit Psychiatry and Behavioral Health at [place] [address] Anna Oneill, PhD [facility] [address] documented as of this encounter Visit Diagnoses Not on filedocumented in this encounter Care Teams Tree Inspector Relationship Specialty Start Date End Date Ryan Betancourt MD [address] [place] [phone] PCP - General Family Medicine 07/29/22 documented as of this encounter
--- OUTSIDE RECORDS SUMMARY | 2024-06-01 20:43 | XMS_ITS | Encounter Summary ---
Author Organization [facility] Address [facility] [place] [address] Care Team Providers Care Bearing Grinder Name Role Phone Ryan Betancourt MD Primary Care Provider [phone] Reason for Visit * Treatment/Therapy Plan Authorization (Routine) - Closed Specialty Diagnoses / Procedures Referred By Ciaran lopez Referred To Contact Diagnoses Malignant neoplasm of overlapping sites of right breast in female, estrogen receptor negative Procedures TC PEGFILGRASTIM, EXCLUDES BIOSIMILAR, 0.5 MG, INJ TC DOCETAXEL, 1MG, INJECTION J9306 PERTuzumab (Perjeta) 840 mg [id number] (Kanjinti) 710 mg Kavitha Rai MD [facility] DR HEMATOLOGY [place] [address] [facility] [address] [place] [address] Referral ID Status Reason Start Date Expiration Date Visits Re quested Visits Authorized [id number] Closed 08/05/2022 08/06/2023 1 103 Encounter Details Date Type Department Care Team (Latest Contact Info) Description 11/11/2022 9:32 AM EDT Hospital Encounter Hematology [place] [address] Malignant neoplasm of overlapping sites [...] topically 2 times daily. 30 g 08/25/2022 ondansetron (Zofran) 8 mg tablet Take 1 [...] Progress Notes * Kenzie Reyes RN - 11/11/2022 10:01 AM EDT Patient Name: Soy San Patient Age: 42 y.o. Birthdate: 1980 Admit date: 11/11/2022 Attending Physician: Alexia att. providers found Access visit. See MAR and/or flowsheet. documented in this encounter Plan of Treatment Upcoming Encounters Date Type Department Care Team (Late st Contact Info) Description 06/14/2024 8:00 AM EST Hospital Encounter [place] [address] Consuelo Joyce APRN [facility] [place] [address] 06/14/2024 8:45 AM EST Appointment XRay at [address] [place] [address] Kavitha Rai MD [facility] DR HEMATOLOGY [place] [address] 06/14/2024 9:45 AM EST Appointment Hematology [place] [phone] 06/14/2024 11:00 AM EST Appointment [place] [phone] Consuelo Joyce APRN [facility] [place] [address] 06/14/2024 1:00 PM EST Office Visit Hematology [place] [address] Kavitha Rai MD [facility] DR [place] [address] 06/14/2024 2:30 PM EST Appointment Hematology and Oncology at [place] [phone] 07/05/2024 10:30 AM EDT Appointment Hematology and Oncology at [place] [address] 07/05/2024 11:30 AM EDT Office Visit Hematology and Oncology at [place] [address] Consuelo Joyce APRN [facility] [place] [address] 07/05/2024 1:00 PM EDT Appointment Hematology [place] [address] 08/16/2024 9:20 AM EDT Office Visit Ophthalmology at [place] [address] Luz Jose, [facility] [place] [address] 01/14/2025 8:30 AM EDT Office Visit Psychiatry and Behavioral Health at [place] [address] Anna Oneill, PhD [facility] [place] [address] documented as of this encounter Procedures Procedure Name Priority Date/Time Associated Diagnosis Comments HEMOGRAM STAT 11/11/2022 9:55 AM EDT Malignant neoplasm of overlapping sites of right breast in female, estrogen receptor negative DIFFERENTIAL, AUTOMATED STAT 11/11/2022 9:55 AM EDT Malignant neoplasm of overlapping sites of right breast in female, estrogen receptor negative CANCER ANTIGEN 15-3 STAT 11/11/2022 9 :55 AM EDT Malignant neoplasm of overlapping sites of right breast in female, estrogen receptor negative CBC (WITH DIFF) STAT 11/11/2022 9:55 AM EDT Malignant neoplasm of overlapping sites of right breast in female, estrogen receptor negative CEA Routine 11/11/2022 9:55 AM EDT Malignant neoplasm of overlapping sites of right breast in female, estrogen receptor negative COMPREHENSIVE METABOLIC PANEL STAT 11/11/2022 9:55 AM EDT Malignant neoplasm of overlapping sites of right breast in female, estrogen receptor negative documented in this encounter Results * Differential, Automated (11/11/2022 9:55 AM EDT) Neutrophil % 70.8 % [facility] Neutrophil Absolute 3.86 1.70 - 6.10 x10(3)/[facility] Lymph % 21.8 % [facility] Lymphocytes Abs 1.2 0.9 - 3.2 x10(3)/[facility] Monocyte % 5.9 % [facility] Monocyte Abs 0.3 0.3 - 0.9 x10(3)/[facility] Eos % 0.7 % [facility] Eosinophils Abs 0.0 0.0 - 0.4 x10(3)/[facility] Basophil % 0.4 % [facility] Baso Absolute 0.0 0.0 - 0.1 x10(3)/[facility] Immature Gran % 0.40 % [facility] Comment: Immature granulocytes(IG's)percentage and absolute count will include metamyelocytes, myelocytes, and promyelocytes. Blood smears from CBCs yielding IG's will be scanned manually for concordance. If this scan disagrees with the automated IG or if promyelocytes are noted, a manual differential will be performed. Immature Gran Absolute 0.02 0.00 - 0.04 x10(3)/mcL [facility] Blood 11/11/2022 9:55 AM EDT 11/11/2022 10:04 AM EDT Narrative Resulting Agency Comment Spec In Lab Dian Guido [facility] ORDERABLE S Performing Organization Address City/[facility]/ZIP Co de Phone Number [facility] [place] [address] * (ABNORMAL) Hemogram (11/11/2022 9:55 AM EDT) White Blood Cell 5.4 4.0 - 9.5 x10(3)/mc L [facility] Red Blood Cell 4.15 4.00 - 5.21 x10(6)/mc L [facility] Hemoglobin 12.1 11.7 - 15.5 g/dL [facility] Hematocrit 36.5 35.7 - 45.8 % [facility] Mean Cell Volume 88.0 82.6 - 94.4 fL [facility] Mean Cell Hemoglobin 29.2 27.1 - 32.0 pg [facility] Mean Cell Hemoglobin Concentration 33.2 31.7 - 35.0 g/dL [facility] Platelet 297 145 - 357 x10(3)/mc L [facility] RDW Standard Deviation 51.8(H) 37.0 - 46.0 fL [facility] RDW coefficient of variation 16.2(H) 11.5 - 14.1 % [facility] Mean Platelet Volume 10.2 7.6 - 12.9 fL [facility] NRBC% auto 0.0 % [facility] NRBC Absolute 0.000 0.000 - 0.000 x10(3)/mc L [facility] Blood 11/11/2022 9:55 AM EDT 11/11/2022 10:04 AM EDT Narrative Resulting Agency Comment Spec In Lab Dian Guido [facility] ORDERABLE S Performing Organization Address City/[facility]/ZIP Co de Phone Number [facility] [place] [address] * (ABNORMAL) Cancer antigen 15-3 (11/11/2022 9:55 AM EDT) CA 15-3 45(H) <=25 unit/mL [facility] Comment: This result was generated using a Deepak Dequan immunoassay. ??Results obtained from other methods or manufacturers cannot be used interchangeably with this method. Blood 11/11/2022 9:55 AM EDT 11/11/2022 10:04 AM EDT Narrative Resulting Agency Comment Spec In Lab Kavitha Rai MD CHEMISTRY ORDERABLES [facility] [place] [address] * (ABNORMAL) Comprehensive metabolic panel (non-fasting) (11/11/2022 9:55 AM EDT) Glucose 130 65 - 199 mg/dL [facility] Comment:Diabetes: >=200 mg/d L plus symptoms Blood Urea Nitrogen 18 8 - 18 mg/dL [facility] Creatinine 0.80 0.70 - 1.20 mg/dL [facility] Sodium 142 135 - 145 mmol/L [facility] Potassium 3.8 3.5 - 5.0 mmol/L [facility] Comment: Please note: ??Patients with WBC >100,000 may have falsely elevated Potassium levels. ??For accurate Potassium quantification in these patients send serum separator tube (gold top) for subsequent determinations. ??Contact the Clinical Chemistry Laboratory if there are any questions. Chloride 108(H) 98 - 107 mmol/L [facility] Carbon Dioxide 24 22 - 31 mmol/L [facility] Anion Gap 10 5 - 15 mmol/L [facility] Calcium 8.8 8.5 - 10.5 mg/dL [facility] Protein, Total 6.2 6.1 - 8.0 g/dL [facility] Albumin 3.6 3.2 - 5.2 g/dL [facility] Aspartate Aminotransferase 34(H) 0 - 30 unit/L [facility] Alanine Aminotransferase 43(H) 0 - 30 unit/L [facility] Alkaline Phosphatase 74 35 - 105 unit/L [facility] Bilirubin, Total 0.2 0.2 - 1.3 mg/dL [facility] Est Glomerular Filtration Rate 93 >=60 mL/min/1. 73 m?? [facility] Comment: This patient's estimated GFR [...] and symptoms in addition to eGFR. Blood 11/11/2022 9:55 AM EDT 11/11/2022 10:04 AM EDT Narrative Resulting Agency Comment Spec In Lab Kavitha Rai MD CHEMISTRY ORDERABLES Performing Organization Address City/[facility]/ZIP Co de Phone Number [facility] [place] [address] * CEA (11/11/2022 9:55 AM EDT) Carcinoembryonic Antigen 3.4 <=3.8 ng/mL [facility] Comment: Reference range: ??(20-69 years): Non-smoker: ??less than or equal to 3.8 ng/mL Smoker: ??less than 5.5 ng/ml This result was generated using a Deepak Dequan immunoassay. ??Results obtained from other methods or manufacturers cannot be used interchangeably with this method. Blood 11/11/2022 9:55 AM EDT 11/11/2022 10:04 AM EDT Narrative Resulting Agency Comment Spec In Lab Kaivtha Rai MD CHEMISTRY ORDERABLES Performing Organization Address City/[facility]/ZIP Co de Phone Number [facility] [place] [address] documented in this encounter Visit Diagnoses Diagnosis [...] EVERY 1 MIN PRN, Starting on Yvette 11/11/22 at 0935, Until Tue11/12/22 at 0436, Line Care, Flush pertains to all indwelling lines. Flush per protocol found in the job aid using the link provided on this medication record. Refer to Intravenous (IV) Job Aid: Adult Flushing & Catheter Care (5102) job aid for additional information regarding guidelines and administration., Routine Given 11/11/2022 9:59 AM EDT 20 mLs documented in this encounter Care Teams Bearing Grinder Relationship Specialty Start Date End Date Ryan Betancourt MD [address] [place] [phone] PCP - General Family Medicine 07/29/22 documented as of this encounter
--- OUTSIDE RECORDS SUMMARY | 2024-06-01 20:43 | XMS_ITS | Encounter Summary ---
Author Organization [facility] [place] [address] Care Team Providers Care Tax Senior Associate Name Role Phone Ryan Betancourt MD Primary Care Provider [phone] Reason for Visit * Treatment/Therapy Plan Authorization (Routine) - Closed Specialty Diagnoses / Procedures Referred By Ciaran lopez Referred To Contact Diagnoses Malignant neoplasm of overlapping sites of right breast in female, estrogen receptor negative Procedures TC PEGFILGRASTIM, EXCLUDES BIOSIMILAR, 0.5 MG, INJ TC DOCETAXEL, 1MG, INJECTION J9306 PERTuzumab (Perjeta) 840 mg [id number] (Kanjinti) 710 mg Kavitha Rai MD [facility] [address] [place] [address] [facility] Onc [address] [place] [address] Referral ID Status Reason Start Date Expiration Date Visits Re quested Visits Authorized [id number] Closed 08/05/2022 08/06/2023 1 103 Encounter Details Date Type Department Care Team (Latest Contact Info) Description 12/02/2022 8:13 AM EDT Hospital Encounter Hematology [place] [address] Malignant neoplasm of overlapping sites [...] as of this encounter Progress Notes * Nelly Ngo RN - 12/02/2022 11:22 AM EDT Patient Name: Soy San Patient Age: 42 y.o. Birthdate: 1980 Admit date: 12/02/2022 Attending Physician: No att. providers found Soy San, 42 y.o. female with diagnosis of breast cancer is here for chemotherapy infusion of pertuzumab, trastuzumab and docetaxel with Onpro application. Patient observed 30 minutes post pertuzumab per protocol. PROTOCOL: no CYCLE: 6 DAY: 1 LVEF: 08/11/22 60% S: Patient offers no complaints at this time. O: Chemotherapy orders independently verified for correct drug name, route and dosage per patient'sheight, weight and BSA by Kathrine Ngo RN and onsite pharmacist REACTIONS (DESCRIPTION, TIME, INTERVENTION AND EFFECTIVENESS) None A: Pt. Tolerated treatment well. Soy San confirms that all questions and issues have been addressed. P: Return to clinic as scheduled Pt. chemo teaching instructions included: During clinic hours (8am-5pm Tuesday-Tuesday): pt. can call [phone] with questions or concerns. After clinic hours (5pm-8am Tuesday-Tuesday and weekends) pt can call [phone] and ask for the lawn care worker/oncologist credit collections manager. Soy San verbalized understanding of potential chemotherapy side effects and home care including but not limited to- handwashing to prevent infection, signs and symptoms of low blood counts (fever, fatigue, bleeding), to call with a fever of 100.4 or greater, any significant constipation/diarrhea, importance of nutrition and fluid intake (drinking at least 32-64 ounces of non-caffeinated beverages/day), mouth care. Soy San verbalized understanding of how to take prescription medications given for home use after chemotherapy. documented in this encounter Plan of Treatment Upcoming Encounters Date Type Department Care Team (Late st Contact Info) Description 06/14/2024 8:00 AM EST Hospital En[place] [address] Consuelo Joyce [facility] [place] [address] 06/14/2024 8:45 AM EST Appointment XRay at [address] [place] [address] Kavitha Rai MD [facility] [address] [place] [address] 06/14/2024 9:45 AM EST Appointment Hematology [place] [address] 06/14/2024 11:00 AM EST Appointment [place] [address] Consuelo Joyce [facility] [place] [address] 06/14/2024 1:00 PM EST Office Visit Hematology [place] [phone] Kavitha Rai MD [facility] [address] [place] [address] 06/14/2024 2:30 PM EST Appointment Hematology [place] [address] 07/05/2024 10:30 AM EDT Appointment Hematology [place] [address] 07/05/2024 11:30 AM EDT Office Visit Hematology [place] [phone] Consuelo Joyce APRN [facility] [place] [place] [address] 07/05/2024 1:00 PM EDT Appointment Hematology [place] [phone] 08/16/2024 9:20 AM EDT Office [place] [phone] Luz Jose OD [facility] [place] [place] [address] 01/14/2025 8:30 AM EDT Office Visit Psychiatry [place] [phone] Anna Oneill, PhD [facility] [place] [address] documented as of this encounter Visit Diagnoses Diagnosis Malignant neoplasm of overlapping sites of right breast in female, estrogen receptor negative documented in this encounter Administered Medications Inactive Administered Medications - up to 3 most recent administrations Medication Order MAR Action Action Date Dose Rate Site dexAMETHasone (PF) (Decadron) (10 mg/mL) injection 10 mg 10 mg, Intravenous, ONCE, 1 dose, On Yvette 12/02/22 at 1100, Administer 60 minutes prior to DOCEtaxel Given 12/02/2022 11:15 AM EDT 10 mg diphenhydrAMINE (Benadryl) capsule 50 mg 50 mg, Oral, ONCE, 1 dose, On Yvette 12/02/22 at 1100, Administer 60 minutes prior to DOCEtaxel, Routine Given 12/02/2022 11:14 AM EDT 50 mg DOCEtaxeL (Taxotere) 150 mg in sodium chloride 0.9% Non-PVC 257.5 mL infusion 150 mg (75 mg/m2/dose ? 2 m2 Order-specific BSA), Intravenous, ONCE, 1 dose, On Tue12/02/22 at 1200, Administer over 60 Minutes, Warning Vesicant/Irritant Medication Capping BSA at 2 m2 New Bag 12/02/2022 1:45 PM EDT 150 mg 257.5 mL/hr famotidine (Pepcid) (10 mg/mL) injection 20 mg 20 mg, Intravenous, ONCE, 1 dose, On Yvette 12/02/22 at 1100, Administer 60 minutes prior to DOCEtaxel Given 12/02/2022 11:14 AM EDT 20 mg heparin (pf) (porcine) (100 units/mL) flush 5 mL syringe 500 Units 500 Units, Intravenous, ONCE PRN, Starting on Tue12/02/22 at 1038, Until Tue12/03/22 at 0435, Line Care, Refer to Intravenous (IV) Procedure: Accessing Implanted Vascular Access Devices (784) procedure and/or Intravenous (IV) Job Aid: Adult Flushing & Catheter Care (6681) job aid for additional information regarding guidelines and administration., Routine Given 12/02/2022 2:56 PM EDT 500 Units ondansetron (Zofran) tablet 8 mg 8 mg, Oral, ONCE, 1 dose, On Tue12/02/22 at 1100, Administer prior to chemotherapy, Routine Given 12/02/2022 11:14 AM EDT 8 mg pegfilgrastim (Neulasta Onpro) (6 mg/0.6 mL) injection kit 6 mg 6 mg, Subcutaneous, ONCE, 1 dose, On Yvette 12/02/22 at 1100, Allow the prefilled syringe co-packaged with the on-body injector to reach room temperature at least 30 minutes prior to administration., Routine, This agent is restricted to outpatient use. Is this drug being given as an outpatient? Yes Given 12/02/2022 2:40 PM EDT 6 mg Right Arm PERTuzumab (Perjeta) 420 mg in sodium chloride 0.9% 264 mL infusion 420 mg, Intravenous, ONCE, 1 dose, On Yvette 12/02/22 at 1200, Administer over 30 Minutes, This agent is restricted to outpatient use. Is this drug being given as an outpatient? Yes New Bag 12/02/2022 11:54 AM EDT 420 mg 528 mL/hr sodium chloride 0.9% infusion 200 mL/hr, Intravenous, ONCE, 1 dose, On Yvette 12/02/22 at 1100 New Bag 12/02/2022 11:14 AM EDT 200 mL/hr 200 mL/hr TRASTuzumab-anns (Kanjinti) 620 mg in sodium chloride 0.9% 279.55 mL infusion 620 mg (rounded from 615 mg = 6 mg/kg/dose ? 102.5 kg Order-specific weight), Intravenous, ONCE, 1 dose, On Yvette 12/02/22 at 1200, Administer over 30 Minutes, Incompatible in D5W, This agent is restricted to outpatient use. Is this drug being given as an outpatient? Yes Bag 12/02/2022 1:02 PM EDT 620 mg 559.1 mL/hr documented in this encounter Care Teams Tax Senior Associate Relationship Specialty Start Date End Date Ryan Betancourt MD [address] [place] [phone] PCP - General Family Medicine 07/29/22 documented as of this encounter
--- OUTSIDE RECORDS SUMMARY | 2024-06-01 20:43 | XMS_ITS | Encounter Summary ---
Author Organization [facility] Address [facility] [place] [address] Care Team Providers Care Monumental Stonemason Name Role Phone Ryan Betancourt MD Primary Care Provider [phone] Reason for Visit * Consultation (Routine) - Closed Specialty Diagnoses / Procedures Referred By Ciaran lopez Referred To Contact Dermatology Diagnoses Malignant neoplasm of overlapping sites of right breast in female, estrogen receptor negative Kavitha Rai MD [facility] [place] [address] [facility] [address] [place] [address] Referral ID Status Reason Start Date Expiration Date V isits Requested Visits Authorized [id number] Closed Consult, Test & Treat 12/08/2022 12/08/2023 1 1 Encounter Details Date Type Department Care Team (Late Contact Info) Description 12/09/2022 8:20 AM EDT Office Visit Dermatology at [facility] [address] [place] [phone] Genevieve Keller MD [facility] [place] [address] Intertrigo; Tinea pedis, unspecified laterality; Superficial skin infection Social History Tobacco Use Types Packs/Day Years [...] Progress Notes * Genevieve Keller MD - 12/09/2022 8:20 AM EDT Images from the original note were not included. DEPARTMENT OF DERMATOLOGY Medical Dermatology Clinic Note Provider: Genevieve Keller MD Patient's preferred name [...] Soy San is a 42 y.o. Patient is referred to the clinic at the request of Kavitha Rai for painful rash. -patient reports continued rash in genital area and under breasts for several weeks that is continuing to worsen. -she has undergone recent treatment (4 months so far) and originally thought it was from the drugs -has tried chemo ointment from hem-onc for itch but not touching it -this flare is worsening, however ~2/3 months so far -using gold ovalle powder -prior to chemo/radiation she reports never having this -she then reports eczema on bilateral feet that has increased since chemo treatment and cancer Review of Systems: General: Feeling well. Skin: No other skin concerns. Medications: Reviewed in eD-H Allergies: Reviewed in eD-H Skin Examination: Focused skin examination of the right breast was normal with the exception of the findings below. Assessment/Plan #.Favor Severe intertrigo with Bacterial Staph superinfection - Start Rx hydrocortisone 2.5% cream - Start Rx ketoconazole 2% cream Instructions: Mix equal amounts of both creams and apply mixture topically to affected areas on thepannus, feet and breasts twice daily for 2 weeks as needed. - Start Rx: cephalexin (Keflex) 500 mg; Take one tablet by mouth four times daily for 14 days -Plan for RTC in two weeks - will look at literature for chemo induced rashes if no resolution with above plan - f/u bacterial and fungal culture - will consider oral antifungals if positive culture #. Tinea Pedis (Athlete's Foot) - Moccassin distribution of thin pink plaque with well demarcated annular border accentuation and scaling - s/p EROS floridly positive - Discussed etiology. - Start Rx ketoconazole 2% cream twice daily x 2 weeks, can continue daily until clearance. Figures 1-3 Photo(s) taken and charted with patient's verbal consent. Other: N/A RTC: 2 weeks for rash follow up []Note routed to computer forwarding system markup clerk []Recall placed in scheduling system [x]Appointment scheduled at checkout Scribe attestation: Lilian Ruiz [facility] has performed the documentation for this encounter inthe presence of and acting as a scribe for Genevieve Keller MD. I performed the above scribed service and agree with the accuracy of the documentation in this encounter. Reviewed and signed by: Genevieve Keller MD Dermatology [facility] Patient seen and evaluated with staff ocular care aide: Eduarda Murphy MD Department of Dermatology [facility] * Eduarda Murphy MD - 12/09/2022 8:20 AM EDT I directly supervised the Dermatology [...] note. EDUARDA MURPHY MD Staff Physician * Genevieve Keller MD - 12/09/2022 8:20 AM EDT Hi Soo, On the swabs we took, we did see Streptococci, Group B and Many Streptococcus milleri which the Keflex should take care of. We also so yeast, which the clotrimazole should be treating. I'm looking forward to seeing how you're doing on 12/23. Feel free to reach out to me with any questions. Genevieve Keller MD documented in this encounter Plan of Treatment Upcoming Encounters Date Type Department Care Team (Late st Contact Info) Description 06/14/2024 8:00 AM EST Hospital Encounter Nuclear Medicine at [place] [phone] [facility]uel[facility] [place] [address] 06/14/2024 8:45 AM EST Appointment XRay at [address] [place] [address] Kavitha Rai MD [facility] DR [place] [address] 06/14/2024 9:45 AM EST Appointment Hematology [place] [address] 06/14/2024 11:00 AM EST Appointment Nuclear Medicine at [place] [phone] Consuelo Joyce [facility] [place] [address] 06/14/2024 1:00 PM EST Office Visit Hematology [place] [address] Kavitha Rai MD [facility] [address] [place] [address] 06/14/2024 2:30 PM EST Appointment Hematology [place] [address] 07/05/2024 10:30 AM EDT Appointment Hematology [place] [address] 07/05/2024 11:30 AM EDT Office Visit Hematology [place] [address] Consuelo Joyce APRN [facility] [place] [address] 07/05/2024 1:00 PM EDT Appointment Hematology and Oncology at [place] [address] 08/16/2024 9:20 AM EDT Office Visit Ophthalmology at [place] [phone] Luz Jose, OD [facility] [place] [address] 01/14/2025 8:30 AM EDT Office Visit Psychiatry and Behavioral Health at [place] [phone] Anna Oneill, PhD [facility] [place] [address] documented as of this encounter Procedures Procedure Name Priority Date/Time Associated Diagnosis Comments HC CALCOFLUOR FUNGAL STAIN Routine 12/09/2022 8:58 AM EDT Superficial skin infection SKIN/SUP WOUND CULTURE Routine 12/09/2022 8:58 AM EDT Intertrigo FUNGAL STAIN Routine 12/09/2022 8:58 AM EDT Superficial skin infection FUNGUS CULTURE Routine 12/09/2022 8:58 AM EDT Superficial skin infection documented in this encounter Results * Calcofluor White Stain (12/09/2022 8:58 AM EDT) Calcofluor Stain Calcofluor White Preparation: Negative [facility] Abdomen 12/09/2022 8:58 AM EDT 12/09/2022 1:17 PM EDT Narrative Resulting Agency Comment Spec In Lab Genevieve Sammie Keller MD MICROBIOLOGY - [place] [address] * (ABNORMAL) Fungus culture (12/09/2022 8:58 AM EDT) Fungus Culture Moderate Yeast, not Cryptococcus spp.(A) [facility] Organism Yeast, not Cryptococcus spp.(A) [facility] Abdomen 12/09/2022 8:58 AM EDT 12/09/2022 1:17 PM EDT Narrative Resulting Agency Comment Spec In Lab Genevieve Keller MD MICROBIOLOGY - GENER AL ORDERABLES Performing Organization Address City/[facility]/[place] [address] * (ABNORMAL) Skin/Superficial Wound Culture Abdomen (12/09/2022 8:58 AM EDT) Skin/Superfic ial Wound Culture Many mixed Gram Positive organisms including : Many Beta Hemolytic Streptococci, Group B and Many Streptococcus milleri, anginosis group (A) [facility] Gram Stain Few Neutrophils seen Many Gram Negative Rods seen Many Gram Positive Cocci seen Rare Yeast seen (A) [facility] Organism Beta Hemolytic Streptococci, Group B(A) [facility] Organism Streptococcus milleri, anginosis group(A) [facility] Organism Gram Negative Rods(A) [facility] Organism Gram Positive Cocci(A) [facility] Organism Yeast(A) [facility] Superficial Wound ABDOMEN / Unknown 12/09 8:58 AM EDT 12/09/2022 1:17 PM EDT Narrative Resulting Agency Comment Spec In Lab Eduarda Murphy MD MICROBIOLOGY - GENE RAL ORDERABLES Performing Organization Address City/[facility]/[place] [address] documented in this encounter Visit Diagnoses Diagnosis Intertrigo Other specified erythematous condition Tinea pedis, unspecified laterality Superficial skin infection Unspecified local infection of skin and subcutaneous tissue documented in this encounter Care Teams Monumental Stonemason Relationship Specialty Start Date End Date Ryan Betancourt MD [address] [place] [phone] PCP - General Family Medicine 07/29/22 documented as of this encounter
--- OUTSIDE RECORDS SUMMARY | 2024-06-01 20:43 | XMS_ITS | Encounter Summary ---
Author Organization [facility] Address [facility] [place] [address] Care Team Providers Care Compress Trucker Name Role Phone Ryan Betancourt MD Primary Care Provider [phone] Encounter Details Date Type Department Care Team (Latest Contact Info) Description 12/09/2022 Travel Social History Tobacco Use Types Packs/Day [...] AM EST Hospital [place] [address] Consuelo Joyce APRN [facility] [place] [address] 06/14/2024 8:45 AM EST Appointment XRay at [address] [place] [address] Kavitha Rai MD [facility] DR [place] [address] 06/14/2024 9:45 AM EST Appointment Hematology [place] [address] 06/14/2024 11:00 AM EST Appoint[place] [address] Consuelo Joyce APRN [facility] [place] [address] 06/14/2024 1:00 PM EST Office Visit Hematology [place] [address] Kavitha Rai MD [facility] [place] [address] 06/14/2024 2:30 PM EST Appointment Hematology [place] [address] 07/05/2024 10:30 AM EDT Appointment Hematology and Oncology at [place] [phone] 07/05/2024 11:30 AM EDT Office Visit Hematology and Oncology at [place] [phone] Consuelo Joyce APRN [facility] [place] [address] 07/05/2024 1:00 PM EDT Appointment Hematology and Oncology at [place] [address] 08/16/2024 9:20 AM EDT Office Visit Ophthalmology at [place] [phone] Luz Jose, OD [facility] [place] [address] 01/14/2025 8:30 AM EDT Office Visit Psychiatry and Behavioral Health at [place] [address] Anna Oneill, PhD [facility] [place] [address] documented as of this encounter Visit Diagnoses Not on filedocumented in this encounter Care Teams Compress Trucker Relationship Specialty Start Date End Date Ryan Betancourt MD [address] [place] [phone] PCP - General Family Medicine 07/29/22 documented as of this encounter
--- OUTSIDE RECORDS SUMMARY | 2024-06-01 20:43 | XMS_ITS | Encounter Summary ---
[place] [address] Care Team Providers Care Health Advisor Name Role Phone Ryan Betancourt MD Primary Care Provider [phone] Reason for Referral * Diagnostic Test (Routine) - Closed Specialty Diagnoses / Procedures Referred By Ciaran lopez Referred To Contact Radiology Diagnoses Malignant neoplasm of left breast in female, estrogen receptor positive, unspecified site of breast Procedures CT Guided Biopsy Bone (Spine/Skull) Dian Lora PA [facility] [place] [address] [facility] [place] [address] Referral ID Status Reason Start Date Expiration Date V isits Requested Visits Authorized [id number] Closed Specialty Service Requested 09/30/2022 04/01/2024 1 1 Reason for Visit * Diagnostic Test (Routine) - Closed Specialty Diagnoses / Procedures [facility] Referred To Contact Radiology Diagnoses Malignant neoplasm of left breast in female, estrogen receptor positive, unspecified site of breast Procedures CT Guided Biopsy Bone (Spine/Skull) Dian Lora PA [facility] [place] [address] [facility] [place] [address] Referral ID Status Reason Start Date Expiration Date V isits Requested Visits Authorized [id number] Closed Specialty Service Requested 09/30/2022 04/01/2024 1 1 Encounter Details Date Type Department Care Team (Latest Contact Info) Description 11/04/2022 11:27 AM EDT - 11/04/2022 11:59 PM EDT Hospital Encounter CT Scan at [facility] [place] [phone] Kavitha Rai MD [facility] HEMATOLOGY [place] [address] Pre-op testing; Malignant neoplasm of overlapping sites of right breast in female, estrogen receptor negative; Malignant neoplasm of left breast in female, estrogen receptor positive, unspecified site of breast Discharge Disposition: Home [...] Sign Reading Time Taken Comments Blood Pressure 124/81 11/04/2022 2:30 PM EDT Pulse 74 11/04/2022 2:30 PM EDT Temperature 36.2 ??C (97.2 ??F) 11/04/2022 12:17 PM E DT Respiratory Rate 18 11/04/2022 2:30 PM EDT Oxygen Saturation 99% 11/04/2022 2:30 PM EDT Inhaled Oxygen Concentration - - Weight - - Height - - Body Mass Index - - documented in this encounter Discharge Instructions * Discharge Instructions* Cirilo Rivera RN - 11/04/2022 1:44 PM EDT [facility] Vascular and Interventional Radiology Vertebral Bone Biopsy Biopsy Discharge Instructions Call your doctor immediately if you develop a sudden onset of weakness, increased pain or swelling at the biopsy site or heavy bleeding at the biopsy site. Activity And Diet: Go home and rest quietly for the remainder of the day. You may resume your normal activities tomorrow. Resume your usual diet after the procedure. Do not drive, sign any important/legal documents, or make any important decisions for 24 hours following sedation medications. You have received medication during your procedure to help lessen anxiety and keep you comfortable.These medications affect judgement and reaction time. We recommend that you do not drive, operate equipment, sign any important documents, or smoke unattended for 24 hours following your procedure. Because of the sedation, be careful on stairs, as you may be unsteady on your feet. When to call your healthcare provider: If you see any redness, swelling or drainage at the biopsy site. If you develop chills. If you have a fever greater than or equal to 101 degrees Fahrenheit. If you develop pain around the biopsy site. Bandage: Check the dressing/bandaid throughout the day for an increase in drainage. Keep the biopsy site dryfor 24 hours. Replace the bandaid as needed. You may shower 24 hours after the biopsy. Medication: DO NOT take aspirin-containing products, ibuprofen, or blood-thinning medication for the next 24 hours unless your clinician says you may do so. Generally you may use acetaminophen as needed for discomfort unless you have liver disease and are instructed not to take acetaminophen. Biopsy Results The results of your biopsy should be available within 5 business days and will be reported to you by your primary insurance healthcare consultant or the clinician who ordered the biopsy. Please do not call us for results as we will not have them. If you have not been contacted by your clinician within 5 business days you should call that officefor further information. When to call the Interventional Radiology Department: Please call with any questions or concerns. If it is during regular office hours, please call [phone]. If it is after regular office hours, or on weekends or holidays, please call [phone] and ask to speak to the Printing Machine Operator technical documentation specialist for Interventional Radiology. documented in this encounter Medications at Time [...] as of this encounter Progress Notes * Cirilo Rivera, RN - 11/04/2022 1:36 PM EDT [facility] NUR[facility] DATABASE Name: Soy San Date of : 1980 AGE: 41 y.o. [address]: [address] [place] [address] (home) [phone] (work) Mobile: Telephone Information: Referring Provider: Dian Lora REASON FOR VISIT: Order Questions Answers Where will study be performed? [facility] Radiology [120] Laterality Bilateral Does this patient have any known bleeding risk factors or conditions that places them at higher risk for a procedural hemorrhage? None Reason for exam and clinical history: new presumed stage 4 breast cancer. liver biopsy negative. Ct identified several T spine lesions amenable to biopsy,bone biopsy needed to confirm stage 4breast cancer and to send for ER NV and HER 2 alexa and NGS.,bone biopsy of T9, T11 or L1 lesions Clinical information / buchanan questions for radiologist: on chemotherapy, THP. low likelihood of neutropenia. Is the patient ? No Does patient require sedation? None Does the patient have any pertinent outside imaging? No No data recorded Allergies Allergen Reactions Milk Containing Products (Dairy) Tegaderm [Transparent Dressings] Skin irritation/darkening with tegaderm. Use sorbaview Other [Unclassified Drug] Hives Pollen - runny nose, itchy and watery eyes Pertinent PMH: Patient Active Problem List Diagnosis Code Malignant neoplasm of overlapping sites of breast in female, estrogen receptor negative C50.819, Z17.1 Date/Procedure Meds Given/Comments 08/12/2022 Mediport Placement, Sensitive to pain, periods of apnea throughout procedure, VS normal. Fentanyl 250 mcg IV, Versed 5 mg IV 09/01/22 CT guided liver biopsy fentanyl 125 mcg, versed 2.5 mg 09/10/22 Mediport Placement, Left Chest and Port Removal, Right chest Fentanyl 150mcg/IV, Versed 3mg/IV. Verbalized she is nervous. Very conversant after initial doses of sedation meds. Sensitive to pain with lidocaine injection. 11/04/2022 Bone Biopsy 4 mg Versed IV, 200 mcg Fentanyl IV 1330 to procedure room IR CT 5 via stretcher. Onto table Prone. All monitors, O2, safety strap in place. Meds per protocol. Laboratory Results: Lab Results Component Value Date INR 1.1 09/01/2022 Lab Results Component Value Date CREATININE 1.01 10/21/2022 Lab Results Component Value Date K 3.6 10/21/2022 Lab Results Component Value Date PLATELET 254 10/21/2022 * Luis Felipe Unger MD - 11/04/2022 1:14 PM EDT INTERVENTIONAL RADIOLOGY FOCUSED H&P: Procedure: Spinal bone biopsy, likely target Right T9 transverse process The patient's history and physical exam have been reviewed and completed. There has been no interval change from that of the pre-operative history and physical exam done within the last 30 days. Physical Exam: Cardiovascular: Regular, Normal Pulmonary: Breath sounds clear to auscultation The planned procedure (and sedation plan if appropriate) , its benefits and risks, and alternativeswere discussed with the patient. The patient consented to the procedure. PRE-SEDATION ASSESSMENT: Sedation Plan: moderate (conscious sedation) ASA: 1: Normally healthy patient Mallampati: I: soft palate, fauces, tonsillar pillars and uvula can be seen Confirm NPO status: Yes History of anesthetic complications: No Current medications reviewed: Yes Allergies reviewed: Yes Luis Felipe Unger MD documented in this encounter H&P Notes * Luis Felipe Unger MD - 11/04/2022 12:53 PM EDT Images from the original note were not included. INTERVENTIONAL RADIOLOGY FOCUSED H&P and PRE-PROCEDURE NOTE: PCP: Ryan Betancourt MD Planned Procedure: Vertebral body biopsy Procedure Indication: Concern for metastatic disease, lesions on MRI Presenting Diagnosis/ Complaint: Soy San is a 42 y.o. female with history of breastcancer, concern for spinal metastesis. Biopsy requested for guided therapy. Past Medical/Surgical History: Patient Active Problem List Diagnosis Code ??? Malignant neoplasm of overlapping sites of breast in female, estrogen receptor negative C50.819, Z17.1 No past medical history on file. Past Surgical History: Procedure Laterality Date ??? CT GUIDED LIVER BIOPSY 09/01/2022 CT Guided Biopsy Liver 09/01/2022 Ryan Dumont MD [facility] RAD CT SCAN ??? IR BIOPSY LIVER PERCUTANEOUS 08/12/2022 IR Biopsy Liver Percutaneous 08/12/2022 Ryan Dumont MD [facility] INTERVENTIONL RAD ??? IR MEDIPORT PLACEMENT 08/12/2022 IR Mediport Placement 08/12/2022 Ryan Dumont MD [facility] INTERVENTIONL RAD ??? IR MEDIPORT PLACEMENT 09/10/2022 IR Mediport Placement 09/10/2022 Glen Moreno MD [facility] INTERVENTIONL RAD ??? IR MEDIPORT REMOVAL 09/10/2022 IR Mediport Removal 09/10/2022 Glen Moreno MD [facility] INTERVENTIONL RAD ??? MAMMO US BIOPSY LYMPH NODE RIGHT Right 07/06/2022 Mammo US Biopsy Lymph Node Right 07/06/2022 Akhil Fregoso MD [facility] RAD MAMMOGRAPHY ??? MAMMO US BIOPSY RIGHT Right 07/06/2022 Mammo Us Biopsy Right 07/06/2022 Akhil Fregoso MD [facility] RAD MAMMOGRAPHY Medications: Current Outpatient Medications on File Prior to Encounter Medication Sig Dispense Refill ??? prochlorperazine (Compazine) 10 mg tablet Take 1 tablet by mouth every 6 hours as needed for Nausea. 30 tablet 3 ??? ondansetron (Zofran) 8 mg tablet Take 1 tablet by mouth every 8 hours as needed for Nausea. 30 tablet 3 ??? OLANZapine (ZyPREXA) 5 mg tablet Take 1 tablet by mouth nightly. Take starting the night of chemotherapy and take for 4 nights (Nights 1 through 4). 12 tablet 0 ??? oxyCODONE-acetaminophen (Percocet) 5-325 mg tablet Take 1 tablet by mouth every 4 hours as needed for Pain. (Patient not taking: Reported on 10/21/2022) 90 tablet 0 ??? multivitamin Capsule Take 1 capsule by mouth daily. ??? betamethasone dipropionate (Diprolene) 0.05 % Cream Apply topically 2 times daily. 30 g 0 No current facility-administered medications on file prior to encounter. Allergies: Milk containing products (dairy), Tegaderm [transparent dressings], and Other [unclassified drug] Social History and Habits: Social History Socioeconomic History ??? Marital status: Spouse name: Not on file ??? Number of children: Not on file ??? Years of education: Not on file ??? Highest education level: Not on file Occupational History ??? Not on file Tobacco Use ??? Smoking status: Former Packs/day: 0.25 Years: 1.00 Pack years: 0.25 Types: Cigarettes Quit date: 1996 Years since quittin.5 ??? Smokeless tobacco: Former Vaping Use ??? Vaping Use: Never used Substance and Sexual Activity ??? Alcohol use: Not Currently Alcohol/week: 4.0 standard drinks Types: 2 Cans of beer, 2 Shots of liquor per week Comment: not drinking x 2 months since chemo ??? Drug use: Yes Frequency: 7.0 times per week Types: Marijuana Comment: nausea ??? Sexual activity: Not on file Other Topics Concern ??? Not on file Social History Narrative ??? Not on file Social Determinants of Health Financial Resource Strain: Medium Risk ??? Difficulty of Paying Living Expenses: Somewhat hard Food Insecurity: Food Insecurity Present ??? Worried About Running Out of Food in the Last Year: Sometimes true ??? Ran Out of Food in the Last Year: Sometimes true Transportation Needs: No Transportation Needs ??? Lack of Transportation (Medical): No ??? Lack of Transportation (Non-Medical): No Physical Activity: Not on file Housing Stability: High Risk ??? Unable to Pay for Housing in the Last Year: Yes ??? Number of Places Lived in the Last Year: 1 ??? Unstable Housing in the Last Year: No Significant Family History: Family History Problem Relation Age of Onset ??? Cancer Father 47 multiple myeloma, hx of agent orange exposure ??? Tumor Brother benign pancreatic tumor that is growing ??? Ovarian Cancer Maternal Aunt 65 ??? Skin Cancer Maternal Aunt ??? Stomach Cancer Maternal Uncle 60 3 days after diagnosis ??? Skin Cancer Maternal Cousin ??? Skin Cancer Maternal Cousin ??? Breast Cancer Other Pertinent ROS: as per HPI Labs: Lab Results Component Value Date WBC 6.0 10/21/2022 HCT 38.9 10/21/2022 PLATELET 176 11/04/2022 INR 1.0 11/04/2022 BUN 12 10/21/2022 CREATININE 1.01 10/21/2022 ALKPHOS 85 10/21/2022 AST 31 (H) 10/21/2022 ALBUMIN 3.9 10/21/2022 BILITOT 0.6 10/21/2022 ALT 40 (H) 10/21/2022 PROT 6.3 10/21/2022 K 3.6 10/21/2022 Imaging: Physical Exam: Pending (to be performed in angio the day of procedure) ASA: Pending (to be assessed in angio the day of procedure) Mallampati Class: Pending (to be assessed in angio the day of procedure) Assessment: 42 y.o. female with history of breast cancer, concern for spinal metastesis. Biopsy requested for guided therapy. Allergy to tegaderm. Labs are appropriate. No AC. Will obtain consent at time of procedure. Plan for right T8 or T9 Transverse process biopsy Luis Felipe Unger MD Plan: No data recorded 11/04/2022 documented in this encounter Plan of Treatment Upcoming Encounters Date Type Department Care Team (Late st Contact Info) Description 06/14/2024 8:00 AM EST Hospital Encounter [place] [phone] Consuelo Joyce [facility] [address] 06/14/2024 8:45 AM EST Appointment XRay at [address] [place] [address] Kavitha Rai MD [facility] [place] [address] 06/14/2024 9:45 AM EST Appointment Hematology [place] [phone] 06/14/2024 11:00 AM EST Appointment [place] [phone] Consuelo Joyce [facility] [place] [address] 06/14/2024 1:00 PM EST Office Visit Hematology and Oncology at [address] Kavitha Rai MD [facility] [address] [place] [address] 06/14/2024 2:30 PM EST Appointment Hematology and Oncology at [place] [phone] 07/05/2024 10:30 AM EDT Appointment Hematology and Oncology at [place] [address] 07/05/2024 11:30 AM EDT Office Visit Hematology and Oncology at [place] [phone] Consuelo Joyce APRN [facility] [place] [address] 07/05/2024 1:00 PM EDT Appointment Hematology and Oncology at [address] 08/16/2024 9:20 AM EDT Office Visit Ophthalmology at [place] [phone] Luz Jose OD [facility] [place] [address] 01/14/2025 8:30 AM EDT Office Visit Psychiatry and Behavioral Health at [place] [phone] Anna Oneill, PhD [facility] [place] [address] documented as of this encounter Procedures Procedure Name Priority Date/Time Associated Diagnosis Comments CT GUIDED BIOPSY BONE(SPINE/SKULL) Routine 11/04/2022 2:27 PM EDT Malignant neoplasm of left breast in female, estrogen receptor positive, unspecified site of breast SURGICAL PATHOLOGY REPORT Routine 11/04/2022 2:20 PM EDT SPECIMEN TO PATHOLOGY Routine 11/04/2022 1:09 PM EDT documented in this encounter Results * CT Guided Biopsy Bone (Spine/Skull) (11/04/2022 2:27 PM EDT) Anatomical Region Laterality Modality Computed Tomogra phy Impressions 11/05/2022 2:09 PM EDT Technically successful CT-guided core needle biopsy of the RIGHT T9 transverse process. Resident/Fellow: Luis Felipe Unger M.D. Attending: Samm Nascimento MD I participated in the preprocedural workup and evaluation this patient, was present in the CT suite for the preprocedure timeout and supervised the entire procedure in the CT suite. I have personally reviewed the image(s) and the resident's interpretation and agree with the findings, Samm Nascimento MD at 11/05/2022 2:09 PM Thank you for letting us participate in the care of this patient. ??If you are a health care provider and have any questions regarding this report, please contact the number below. ??For patients who have questions please contact the health manager progressive care that requested your imaging first. ? Electronically signed by: Samm Nascimento MD, [facility] ([phone]), at 11/05/2022 2:09 PM Narrative 11/05/2022 2:09 PM EDT PROCEDURE: CT GUIDED RIGHT T9 transverse process bone biopsy OPERATORS: Luis Felipe Unger M.D. INFORMED CONSENT: Informed consent was obtained and all of the patient's questions were answered prior to the start of the procedure. MODERATE SEDATION: Was provided by the Special Procedures nurse using midazolam and Fentanyl intravenously. Continuous vital sign monitoring was performed. DESCRIPTION: After informed consent was obtained, a pre- procedural time-out was performed as per [facility] protocol. The patient was placed in the CT Suite in the prone position. The RIGHT T9 transverse process lesion was localized on axial CT images. The needle entry site was marked under CT guidance. The skin was prepped and draped in the usual sterile fashion. 1% Lidocaine was used for local anesthesia at the skin surface. A 22-gauge spinal needle was advanced to the periosteum and local anesthetic was administered. Maximum sterile barrier technique was utilized. The 13 G USA EXTENDED STAYS bone biopsy set was employed. The penetration needle was advanced under imaging guidance. The bone biopsy needle was subsequently advanced coaxially. The tip of the biopsy needle was recorded and one core specimen was obtained. All needles were removed and hemostasis obtained by manual compression. The samples were prepared teflex and normal saline for surgical pathology. COMPLICATIONS: There were no immediate postprocedure complications. The patient left the fluoroscopic suite to the ambulatory Recovery Room in stable condition. MEDICATIONS: Patient received split doses of intravenous fentanyl and midazolam from the IR nurse while pulse, pressure, and oxygen saturation were continuously monitored. I was present during the intra-service time out as documented by the IR Nurse. Kavitha Rai MD IMG CT ORDERABLES * Surgical Pathology Report (11/04/2022 2:20 PM EDT) Final Diagnosis [id number] ? Location: [facility] The signing pathologist has (i) examined the relevant preparation(s) for the specimen(s) and (ii) rendered or confirmed the diagnosis(es). . ?Surgical Pathology DIAGNOSIS A - Bone, T9, biopsy: - Sclerotic bone with hypercellular marrow and trilineage hematopoiesis, carcinoma not identified (see discussion) Electronically signed by: ?Jennifer MERCHANT, PhD, Atif Potter Verified: ??11/11/2022 9:12 ?? Dermatopathologist, Bone & Soft Tissue Pathologist Performed at: ??-[facility] Dept. of Pathology, [place] [address] Director Zone: Malvin Toscano MD, FCAP, ??CLIA Certificate: [id number] DISCUSSION The findings are non-specific. Multiple histologic sections were evaluated and two keratin immunohistochemical stains were performed (levels A1-2 and A1-9), and carcinoma is not identified. Clinical and radiographic correlation is recommended. ADDITIONAL STUDIES Multiple deeper levels were examined. Two CK [id number] immunohistochemical stains were performed on block A1. SPECIMEN(S) SUBMITTED A - T9, biopsy (Multiple) CLINICAL INFORMATION Bone biopsy needed to confirm stage for breast cancer and sent for ER/NV and HER2/alexa and NGS SPECIMEN PROCESSING A - Labeled/Fixative: T9, fresh. Quantity/Size: Single, 0.5 x 0.1 cm Tissue Description: Red-sher bone needle core biopsy. Sections/Processing: Blocks submitted for decalcification in EDTA: A1. Entirely submitted in 1 cassette labeled A1. Ischemic time: 1 minute ??shb 11/11/2022 9:[address] [facility] BONE STRUCTURE / Unknown 11/04/2022 2:20 PM EDT 11/04/2022 2:20 PM EDT Samm Nascimento MD PATHOLOGY/CYTOLOGY ORDERABLES [facility] [address] [place] [address] * Specimen to Pathology (11/04/2022 1:09 PM EDT) AP Specimen 11/04/2022 1:09 PM EDT 11/04/2022 1:09 PM EDT Narrative [facility] - 11/04/2022 1:09 PM EDT Specimen requisition ordered. ??Separate Pathology report to follow Samm Nascimento MD PATHOLOGY/CYTOLOGY ORDERABLES [facility] [place] [address] * Prothrombin Time (11/04/2022 11:21 AM EDT) Prothrombin Time 11.6 9.4 - 12.5 sec [facility] International Normalization Ratio 1.0 [facility] Comment: An INR <2.0 indicates adequate procoagulant activity for hemostasis in most patients without underlying bleeding disorders, though the INR may not adequately reflect hemostatic capacity in patients with liver disease and synthetic impairment. The recommended target INR range for therapeutic anticoagulation is 2.0 ? 3.0 for most applications, though lower and higher ranges may be appropriate depending on clinical circumstances. Blood 11/04/2022 11:2 1 AM EDT 11/04/2022 11:30 AM EDT Narrative Resulting Agency Comment Spec In Lab Kavitha Rai MD HEMATOLOGY ORDERABLE S [facility] [place] [address] * Platelet count (11/04/2022 11:21 AM EDT) Platelet 176 145 - 357 x10(3)/mc L [facility] Immature Plt % 4.0 0.0 - 7.4 % [facility] Comment: Limitation of the Immature Platelet Fraction (IPF)-May be less reliable when the platelet count is less than 08l410/uL due to statistical imprecision. The IPF value provides an assessment of the Bone Marrow production status. ??It is useful in differentiating Thrombocytopenia caused by platelet destruction/consumption versus decreased production. It also helps to determine the imminent release of platelets and can be therefore a helpful parameter in Chemotherapy and Bone marrow transplant patients. ELEVATED IPF value: ?? When the bone marrow is in a state of over production such as when increased destruction and consumption are the underlying issue. ?? When the marrow is recovering post chemotherapy or bone marrow transplant. LOW to NORMAL IPF value: ?? When the bone marrow in not responding and is in a decreased state of production. References: [employer] The Clinical Value of the Immature Platelet Fraction (IPF) in Cell Recovery Document Number [id number] 09/2010 [employer] The Role of the Immature Platelet Fraction (IPF) in the Differential Diagnosis of Thrombocytopenia, Document [id number] V05 P0514 Blood 11/04/2022 11:2 1 AM EDT 11/04/2022 11:30 AM EDT Narrative Resulting Agency Comment Spec In Lab Kavitha Rai MD HEMATOLOGY ORDERABLE S Performing Organization Address City/State/[facility] Co de Phone Number [facility] [place] [address] documented in this encounter Visit Diagnoses Diagnosis Pre-op testing Preoperative examination, unspecified Malignant neoplasm of overlapping sites of right breast in female, estrogen receptor negative Malignant neoplasm of left breast in female, estrogen receptor positive, unspecified site of breast documented in this encounter Administered Medications Inactive Administered Medications - up to 3 most recent administrations Medication Order MAR Action Action Date Dose Rate Site fentaNYL (pf) (50 mcg/mL) multi-dose injection 25-50 mcg 25-50 mcg, Intravenous, EVERY 3 MIN PRN, Starting on Yvette 11/04/22 at 1314, Until Yvette 11/04/22 at 1528, Pain, per unit protocol, For use in Interventional Radiology (IR) only for procedural sedation with direct provider supervision and verbal order. - Start dose: 50 mcg (reduce dose to 25 mcg if history of sedation sensitivity). - Titration dose: 25-50 mcg IV, (based on patient response) every 3 minutes PRN to maintain procedural pain less than 2 per Pain Scale. Maximum dose: 50 mcg/dose, 250 mcg/hour, Angio/IR (Intra-Procedure), Routine Given 11/04/2022 2:01 PM EDT 25 mcg Given 11/04/2022 1:56 PM EDT 25 mcg Given 11/04/2022 1:50 PM EDT 25 mcg lidocaine (Xylocaine) 1% (10 mg/mL) injection 10 mg 10 mg, Subcutaneous, ONCE, 1 dose, On Yvette 11/04/22 at 1330, For use in Interventional Radiology (IR) only for procedure with direct provider supervision and verbal order., Angio/IR (Intra-Procedure), Routine Given 11/04/2022 1:55 PM EDT 10 mg midazolam (pf) (Versed) (1 mg/mL) multi-dose injection 0.5-1 mg 0.5-1 mg, Intravenous, EVERY 3 MIN PRN, Starting on Yvette 11/04/22 at 1314, Until Yvette 11/04/22 at 1528, Sedation, For use in Interventional Radiology (IR) only for procedural sedation with direct provider supervision and verbal order. - Start dose: 1 mg (Reduce dose to 0.5 mg if history of sedation sensitivity). - Titration dose: 0.5 mg - 1 mg (based on patient response) every 3 minutes PRN to obtain RASS score of -3. Maximum dose: 1 mg/dose, 5 mg/hour., Angio/IR (Intra-Procedure), Routine Given 11/04/2022 2:01 PM EDT 0.5 mg Given 11/04/2022 1:56 PM EDT 0.5 mg Given 11/04/2022 1:50 PM EDT 0.5 mg documented in this encounter Care Teams Health Advisor Relationship Specialty Start Date End Date Ryan Betancourt MD [address] [place] [phone] PCP - General Family Medicine 07/29/22 documented as of this encounter
--- OUTSIDE RECORDS SUMMARY | 2024-06-01 20:43 | XMS_ITS | Encounter Summary ---
Author Organization Formerly [facility] [place] [address] Care Team Providers Care Fun House Attendant Name Role Phone Ryan Betancourt MD Primary Care Provider [phone] Reason for Referral * Diagnostic Test (Routine) - Closed Specialty Diagnoses / Procedures Referred By Ciaran lopez Referred To Contact Radiology Diagnoses Malignant neoplasm of overlapping sites of right breast in female, estrogen receptor negative Procedures MRI Breast wwo Contrast Bilat Kavitha Rai MD [facility] DR HEMATOLOGY [place] [address] [place] [address] Referral ID Status Reason Start Date Expiration Date V isits Requested Visits Authorized [id number] Closed Specialty Service Requested 12/02/2022 06/04/2024 1 1 Reason for Visit * Reason Comments Follow-up Encounter Details Date Type Department Care Team (Late st Contact Info) Description 12/02/2022 9:30 AM EDT Office Visit Hematology [place] [phone] Kavitha Rai MD [facility] DR HEMATOLOGY [place] [address] Malignant neoplasm of overlapping sites [...] Sign Reading Time Taken Comments Blood Pressure 138/74 12/02/2022 9:03 AM EDT Pulse 80 12/02/2022 9:03 AM EDT Temperature 36.4 ??C (97.5 ??F) 12/02/2022 9:03 AM ED T Respiratory Rate 22 12/02/2022 9:03 AM EDT Oxygen Saturation 100% 12/02/2022 9:03 AM EDT Inhaled Oxygen Concentration - - Weight 103.4 kg (227 lb 15.3 oz) 12/02/2022 9:03 AM EDT Height 164.2 cm (5' 4.65) 12/02/2022 9:03 AM ED T Body Mass Index 38.35 12/02/2022 9:03 AM EDT documented in this encounter Progress Notes * Kavitha Rai MD - 12/02/2022 9:30 AM EDT Soy San is a 42 y.o. 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 12/02/2022 On THP. Today is cycle #6 [...] 1st & 2nd week following infusion. Saw [facility] this morning who made recommendations [...] After THP #1, she went to a [employer], ate half a salad. This was fine. [...] Pathology: PD IDC + LVI ER negative MN negative Her 2 alexa amplified HER2 TO [...] METASTATIC BIOPSY : Has had two biopsies ( liver and bone) to try to confirm mets, both negative. Both done after starting chemo-abs due to inability to schedule prior to starting treatment. CT guided biopsy of liver 09/01/[address] guided biopsy of bone 11/04/2022. 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 She appears well- developed and well-nourished. No distress. Head: Normocephalic. Eyes: Conjunctivae are normal. Pupils are equal, round, and reactive to light. Neck: Normal range of motion. Cardiovascular: Normal rate, regular rhythm and normal heart sounds. Pulmonary/Chest: Effort normal and breath sounds normal. Right breast: No discrete mass or axillary node ( picture taken) . Some hyperpigmentation at site of nodules around areola ( at start, edema, sq nodules and I Right axilla [address] ) Abdominal: Soft. Bowel sounds are normal. There is no tenderness. Musculoskeletal: Normal range of motion. Extremities: no clubbing, cyanosis or edema Neurological: She is alert and oriented to person, place, and time. Gait normal. Skin: Skin is warm and dry. Psychiatric: She has a normal mood and affect. Her behavior is normal. Results: Lab Results Component Value Date WBC 6.0 12/02/2022 HGB 12.3 12/02/2022 HCT 37.1 12/02/2022 MCV 90.3 12/02/2022 PLATELET 259 12/02/2022 Lab Results Component Value Date NEUTROABS 4.26 12/02/2022 Lab Results Component Value Date NA 141 12/02/2022 K 3.7 12/02/2022 CL 105 12/02/2022 CO2 26 12/02/2022 BUN 11 12/02/2022 CREATININE 0.78 12/02/2022 GLUCOSE 105 12/02/2022 CALCIUM 9.0 12/02/2022 ESTGFR 96 12/02/2022 Lab Results Component Value Date ALT 44 (H) 12/02/2022 AST 30 12/02/2022 ALKPHOS 61 12/02/2022 BILITOT 0.4 12/02/2022 ALBUMIN 3.7 12/02/2022 PROT 6.1 12/02/2022 CEA (ng/mL) Date Value 11/11/2022 3.4 10/21/2022 2.8 09/30/2022 3.5 09/09/2022 5.1 (H) 08/19/2022 14.0 (H) CA 15-3 (unit/mL) Date Value 11/11/2022 45 (H) 10/21/2022 45 (H) 09/30/2022 48 (H) 09/09/2022 54 (H) 08/19/2022 118 (H) A/P: Soy San is a 42 y.o. 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 She is s/p a right breast and axillarybiopsy. She is presently on THP (Ruthy regimen) given the high pre-test probability of her having metastatic disease. We are awaiting scheduling of bone bx to confirm metastatic disease because, t cydney negative, liver bx was technically difficult and MRI T-spine shows numerous thoracic spinal mets. She has had an excellent clinical response to therapy. Discussed options. Breast Cancer: on THP #6 today Excellent clinical response with decreasing markers and resolved pain and breast mass Discussed PET CT . Will stop chemo after THP today. Will continue H and P. Discussed that still has masses although FDG non avid in breast. Unclear optimal management of breast. Will do MRI of breast to assist in assesment. Discussed that primary breast therapy not considered a standard of care however will evaluate whether limited therapy can be applied. Will consider presenting to breast tumor board. For H and P would like to see if can get at [facility] some of the time as she would like to go back to work. Has dental alondra on Sept 18. Will plan to Start denusomab after that visit. Pt aware. Consider valtrex if cryotherapy doesn't work to prevent mouth sores. RTC 3 weeks for H & P. Future Appointments Date Time Provider Department Center 12/02/2022 11:00 AM [place] [facility] [facility] [place] [facility] [place] spent: 40 minutes of which >50% was in discussion documented in this encounter Plan of Treatment Upcoming Encounters Date Type Department Care Team (Late st Contact Info) Description 06/14/2024 8:00 AM EST Hospital Encounter Nuclear [place] [address] [facility]uel[facility] [place] [address] 06/14/2024 8:45 AM EST Appointment XRay at [address] [place] [phone] Kavitha Rai MD [facility] DR HEMATOLOGY [place] [address] 06/14/2024 9:45 AM EST Appointment Hematology [place] [address] 06/14/2024 11:00 AM EST Appointment [place] [address] Consuelo Joyce [facility] [place] [address] 06/14/2024 1:00 PM EST Office Visit Hematology [place] [address] Kavitha Rai MD [facility] DR HEMATOLOGY [place] [address] 06/14/2024 2:30 PM EST Appointment Hematology [place] [phone] 07/05/2024 10:30 AM EDT Appointment Hematology [place] [phone] 07/05/2024 11:30 AM EDT Office Visit Hematology [place] [address] Consuelo Joyce APRN [facility] [place] [address] 07/05/2024 1:00 PM EDT Appointment Hematology [place] [phone] 08/16/2024 9:20 AM EDT Office Visit [place] [phone] Luz Jose, OD [facility] [place] [address] 01/14/2025 8:30 AM EDT Office Visit Psychiatry and Behavioral [place] [phone] Anna Oneill, PhD [facility] [place] [address] documented as of this encounter Results * [...] have questions please contact the health career consultant that requested your imaging first. ? Narrative [...] contrast enhancement curve analysis was performed, using [employer] software. COMPARISON STUDIES: Compared and/or correlated [...] negative documented in this encounter Care Teams Fun House Attendant Relationship Specialty Start Date End Date Ryan Betancourt MD [address] [place] [phone] PCP - General Family Medicine 07/29/22 documented as of this encounter
--- OUTSIDE RECORDS SUMMARY | 2024-06-01 20:43 | XMS_ITS | Encounter Summary ---
Author Organization Formerly [facility] [place] [address] Care Team Providers Care Outpatient Receptionist Name Role Phone Ryan Betancourt MD Primary Care Provider [phone] Encounter Details Date Type Department Care Team (Late st Contact Info) Description 12/22/2022 Orders Only Hematology and Oncology at [facility] [place] [phone] Dian Lora PA Social History Tobacco Use [...] AM EST Hospital Encounter Nuclear Medicine at [place] [phone] Consuelo Joyce [facility] [place] [address] 06/14/2024 8:45 AM EST Appointment XRay at [address] [place] [phone] Kavitha Rai MD [facility] DR HEMATOLOGY [place] [address] 06/14/2024 9:45 AM EST Appointment Hematology [place] [phone] 06/14/2024 11:00 AM EST Appointment [place] [phone] Consuelo Joyce [facility] [place] [address] 06/14/2024 1:00 PM EST Office Visit Hematology [place] [phone] Kavitha Rai MD [facility] DR HEMATOLOGY [place] [address] 06/14/2024 2:30 PM EST Appointment Hematology and Oncology at [place] [address] 07/05/2024 10:30 AM EDT Appointment Hematology and Oncology at [place] [phone] 07/05/2024 11:30 AM EDT Office Visit Hematology and Oncology at [place] [address] Consuelo Joyce APRN [facility] [place] [address] 07/05/2024 1:00 PM EDT Appointment Hematology and Oncology at [place] [address] 08/16/2024 9:20 AM EDT Office Visit Ophthalmology at [place] [address] Luz Jose, CARSON [facility] [place] [address] 01/14/2025 8:30 AM EDT Office Visit Psychiatry and Behavioral Health at [place] [address] Anna Oneill, PhD [facility] [place] [address] documented as of this encounter Visit Diagnoses Not on filedocumented in this encounter Care Teams Outpatient Receptionist Relationship Specialty Start Date End Date Ryan Betancourt MD [address] [place] [phone] PCP - General Family Medicine 07/29/22 documented as of this encounter
--- OUTSIDE RECORDS SUMMARY | 2024-06-01 20:43 | XMS_ITS | Encounter Summary ---
Author Organization Formerly [facility] [place] [address] Care Team Providers Care Exhibit Artist Name Role Phone Ryan Betancourt MD Primary Care Provider [phone] Encounter Details Date Type Department Care Team (Late st Contact Info) Description 11/09/2022 Orders Only Hematology and Oncology at [facility] [place] [phone] Dian Lora PA Social History Tobacco Use [...] AM EST Hospital Encounter Nuclear Medicine at [place] [phone] Consuelo Joyce [facility] [address] 06/14/2024 8:45 AM EST Appointment XRay at [address] [place] [phone] Kavitha Rai MD [facility] DR HEMATOLOG[place] [address] 06/14/2024 9:45 AM EST Appointment Hematology [place] [phone] 06/14/2024 11:00 AM EST Appointment [place] [phone] Consuelo Joyce [facility] [address] 06/14/2024 1:00 PM EST Office Visit Hematology [place] [phone] Kavitha Rai MD [facility] DR HEMATOLOG[place] [address] 06/14/2024 2:30 PM EST Appointment Hematology and Oncology at [place] [address] 07/05/2024 10:30 AM EDT Appointment Hematology and Oncology at [place] [phone] 07/05/2024 11:30 AM EDT Office Visit Hematology and Oncology at [place] [address] Consuelo Joyce APRN [facility] [place] [address] 07/05/2024 1:00 PM EDT Appointment Hematology and Oncology at [place] [address] 08/16/2024 9:20 AM EDT Office Visit Ophthalmology at [place] [address] Luz Jose, CARSON [facility] [place] [address] 01/14/2025 8:30 AM EDT Office Visit Psychiatry and Behavioral Health at [place] [address] Anna Oneill, PhD [facility] [place] [address] documented as of this encounter Visit Diagnoses Not on filedocumented in this encounter Care Teams Exhibit Artist Relationship Specialty Start Date End Date Ryan Betancourt MD [address] [place] [phone] PCP - General Family Medicine 07/29/22 documented as of this encounter
--- OUTSIDE RECORDS SUMMARY | 2024-06-01 20:43 | XMS_ITS | Encounter Summary ---
Author Organization [facility] Address [facility] [place] [address] Care Team Providers Care Dismantler Name Role Phone Ryan Betancourt MD Primary Care Provider [phone] Encounter Details Date Type Department Care Team (Latest Contact Info) Description 12/02/2022 Travel Social History Tobacco Use Types Packs/Day [...] EST Hospital Encounter [place] [address] Consuelo Joyce APRN [facility] [place] [address] 06/14/2024 8:45 AM EST Appointment XRay at [address] [place] [address] Kavitha Rai MD [facility] DR [place] [address] 06/14/2024 9:45 AM EST Appointment Hematology [place] [address] 06/14/2024 11:00 AM EST Appointment [place] [address] Consuelo Joyce APRN [facility] [place] [address] 06/14/2024 1:00 PM EST Office Visit [place]ology [place] [address] Kavitha Rai MD [facility] [place] [address] 06/14/2024 2:30 PM EST Appointment Hematology [place] [address] 07/05/2024 10:30 AM EDT Appointment Hematology and Oncology at [place] [phone] 07/05/2024 11:30 AM EDT Office Visit Hematology and Oncology at [place] [phone] Consuelo Joyce APRN [facility] [place] [address] 07/05/2024 1:00 PM EDT Appointment Hematology and Oncology at [place] [address] 08/16/2024 9:20 AM EDT Office Visit Ophthalmology at [place] [phone] Luz Jose, OD [facility] [place] [address] 01/14/2025 8:30 AM EDT Office Visit Psychiatry and Behavioral Health at [place] [address] Anna Oneill, PhD [facility] [place] [address] documented as of this encounter Visit Diagnoses Not on filedocumented in this encounter Care Teams Dismantler Relationship Specialty Start Date End Date Ryan Betancourt MD [address] [place] [phone] PCP - General Family Medicine 07/29/22 documented as of this encounter
--- OUTSIDE RECORDS SUMMARY | 2024-06-01 20:43 | XMS_ITS | Encounter Summary ---
Author Organization [facility] [place] [address] Care Team Providers Care Automobile Body Customizer Name Role Phone Ryan Betancourt MD Primary Care Provider [phone] Reason for Visit * Reason Onset Date Comments Follow-up 12/22/2022 Encounter Details Date Type Department Care Team (Late st Contact Info) Description 12/22/2022 Telephone Hematology [place] [phone] Madeline Verdugo, RN Follow-up Social History Tobacco Use Types Packs/Day Years [...] Telephone Encounter - Madeline Verdugo RN - 12/22/2022 8:45 AM EDTSummary: follow up ----- Message ----- From: Bruna Driscoll MD Sent: 12/21/2022 7:33 PM EDT To: Kavitha Rai MD, [facility] [place] I had a phone call from Dr. Bee at [facility]. Sounds like she was asked to call the clinic urgently but unable to get to anybody, Would appreciate it if you could follow up on this tomorrow. Call placed to patient and spoke to Soo. When they called to confirm appointments she hit the wrongbutton and she thinks it hung up. So she was worried that she did not confirm the appointment and didn't want it to be cancelled. Reviewed upcoming appointments for tomorrow 12/23. The Phesgo injection was not approved by her insurance so we are switching back to the infused medications per LEOPOLDO Dobbs All questions answered to patient's apparent satisfaction. documented in this encounter Plan of Treatment Upcoming Encounters Date Type Department Care Team (Late st Contact Info) Description 06/14/2024 8:00 AM EST Hospital Encounter [place] [phone] Consuelo Joyce APRN [facility] [place] [address] 06/14/2024 8:45 AM EST Appointment XRay at [address] [place] [address] Kavitha Rai MD [facility] DR HEMATOLOGY [place] [address] 06/14/2024 9:45 AM EST Appointment Hematology [place] [address] 06/14/2024 11:00 AM EST Appointment Nuclear Medicine at [address] Consuelo Joyce [facility] [place] [place] [address] 06/14/2024 1:00 PM EST Office Visit Hematology [place] [address] Kavitha Rai MD [facility] DR HEMATOLOG[place] [address] 06/14/2024 2:30 PM EST Appointment Hematology [place] [address] 07/05/2024 10:30 AM EDT Appointment Hematology [place] [address] 07/05/2024 11:30 AM EDT Office Visit Hematology [place] [address] Consuelo Joyce [facility] [place] [place] [address] 07/05/2024 1:00 PM EDT Appointment Hematology [place] [address] 08/16/2024 9:20 AM EDT Office [place] [address] Luz Jose, OD [facility] [place] [address] 01/14/2025 8:30 AM EDT Office Visit Psychiatry and [place] [address] Anna Oneill, PhD [facility] [place] [address] documented as of this encounter Visit Diagnoses Not on filedocumented in this encounter Care Teams Automobile Body Customizer Relationship Specialty Start Date End Date Ryan Betancourt MD [address] [place] [phone] PCP - General Family Medicine 07/29/22 documented as of this encounter
--- OUTSIDE RECORDS SUMMARY | 2024-06-01 20:43 | XMS_ITS | Encounter Summary ---
Author Organization [facility] Address [facility] [place] [address] Care Team Providers Care Packaging Supervisor Name Role Phone Ryan Betancourt MD Primary Care Provider [phone] Reason for Visit * Diagnostic Test (Routine) - Closed Specialty Diagnoses / Procedures Referred By Ciaran lopez Referred To Contact Radiology Diagnoses Malignant neoplasm of overlapping sites of right breast in female, estrogen receptor negative Procedures NM PET CT Skull Base to Mid-thigh Kavitha Rai MD [facility] [address] [place] [address] [place] [address] Referral ID Status Reason Start Date Expiration Date V isits Requested Visits Authorized [id number] Closed Specialty Service Requested 11/11/2022 05/14/2024 1 2 Encounter Details Date Type Department Care Team (Latest Contact Info) Description 11/23/2022 11:54 AM EDT - 11/23/2022 11:59 PM EDT Hospital Encounter [place] [address] Kavitha Rai MD [facility] [address] [place] [address] Discharge Disposition: Home Social History [...] AM EST Hospital Encounter Nuclear Medicine at [place] [phone] Consuelo Joyce [facility] [place] [address] 06/14/2024 8:45 AM EST Appointment XRay at [address] [place] [address] Kavitha Rai MD [facility] [address] [place] [address] 06/14/2024 9:45 AM EST Appointment Hematology [place] [address] 06/14/2024 11:00 AM EST Appointment [place] [address] Consuelo Joyce [facility] [place] [address] 06/14/2024 1:00 PM EST Office Visit Hematology [place] [phone] aKvitha Rai MD [facility] [address] [place] [address] 06/14/2024 2:30 PM EST Appointment Hematology [place] [address] 07/05/2024 10:30 AM EDT Appointment Hematology and Oncology at [place] [phone] 07/05/2024 11:30 AM EDT Office Visit Hematology and Oncology at [place] [phone] Consuelo Joyce APRN [facility] [place] [address] 07/05/2024 1:00 PM EDT Appointment Hematology [place] [address] 08/16/2024 9:20 AM EDT Office Visit Ophthalmology at [place] [phone] Luz Jose, CARSON [facility] [place] [address] 01/14/2025 8:30 AM EDT Office Visit Psychiatry and Behavioral Health at [place] [phone] Anna Oneill, PhD [facility] [place] [address] documented as of this encounter Procedures Procedure Name Priority Date/Time Associated Diagnosis Comments NM PET CT SKULL BASE TO MID-THIGH ([facility]) Routine 11/23/2022 1:38 PM EDT Malignant neoplasm of overlapping sites of right breast in female, estrogen receptor negative POCT GLUCOSE Routine 11/23/2022 12:05 PM EDT documented in this encounter Results * POCT Glucose (11/23/2022 12:05 PM EDT) [facility] Glucose, POC 106 65 - 199 mg/dL [facility] Comment: Supplemental ranges: <140 mg/dL before meals <180 mg/dL all other times of the day Blood 11/23/2022 12:0 5 PM EDT 11/23/2022 12:05 PM EDT Kavitha Rai MD POINT OF CARE TEST O RDERABLES Performing Organization Address City/State/[facility] Co de Phone Number [facility] [place] [place] [address] documented in this encounter Visit Diagnoses Not on filedocumented in this encounter Care Teams Packaging Supervisor Relationship Specialty Start Date End Date Ryan Betancourt MD [address] [place] [phone] PCP - General Family Medicine 07/29/22 documented as of this encounter
--- OUTSIDE RECORDS SUMMARY | 2024-06-01 20:43 | XMS_ITS | Encounter Summary ---
Author Organization [facility] [place] [address] Care Team Providers Care Law Writer Name Role Phone Ryan Betancourt MD Primary Care Provider Encounter Details Date Type Department Care Team (Late st Contact Info) Description 11/10/2022 Orders Only Hematology and Oncology at [facility] [place] [phone] Dian Lora PA Social History Tobacco Use [...] AM EST Hospital Encounter Nuclear Medicine at [place] [phone] Consuelo Joyce [facility] [place] [address] 06/14/2024 8:45 AM EST Appointment XRay at [address] [place] [phone] Kavitha Rai MD [facility] [place] [address] 06/14/2024 9:45 AM EST Appointment Hematology [place] [phone] 06/14/2024 11:00 AM EST Appointment [place] [phone] Consuelo Joyce [facility] [place] [address] 06/14/2024 1:00 PM EST Office Visit Hematology [place] [phone] Kavitha Rai MD [facility] [address] [place] [address] 06/14/2024 2:30 PM EST Appointment Hematology and Oncology at [place] [address] 07/05/2024 10:30 AM EDT Appointment Hematology and Oncology at [place] [phone] 07/05/2024 11:30 AM EDT Office Visit Hematology and Oncology at [place] [address] Consuelo Joyce APRN [facility] [place] [address] 07/05/2024 1:00 PM EDT Appointment Hematology and Oncology at [place] [address] 08/16/2024 9:20 AM EDT Office Visit Ophthalmology at [place] [address] Luz Jose, CARSON [facility] [place] [address] 01/14/2025 8:30 AM EDT Office Visit Psychiatry and Behavioral Health at [place] [address] Anna Oneill, PhD [facility] [place] [address] documented as of this encounter Visit Diagnoses Not on filedocumented in this encounter Care Teams Law Writer Relationship Specialty Start Date End Date Ryan Betancourt MD [address] [place] [phone] PCP - General Family Medicine 07/29/22 documented as of this encounter
--- OUTSIDE RECORDS SUMMARY | 2024-06-01 20:43 | XMS_ITS | Encounter Summary ---
Author Organization [facility] [place] [address] Care Team Providers Care Diesel Pile Hammer Operator Name Role Phone Ryan Betancourt MD Primary Care Provider [phone] Reason for Referral * Diagnostic Test (Routine) - Closed Specialty Diagnoses / Procedures Referred By Ciaran lopez Referred To Contact Radiology Diagnoses Malignant neoplasm of overlapping sites of right breast in female, estrogen receptor negative Procedures NM PET CT Skull Base to Mid-thigh Kavitha Rai MD [facility] DR [place] [address] [place] [address] Referral ID Status Reason Start Date Expiration Date V isits Requested Visits Authorized [id number] Closed Specialty Service Requested 11/11/2022 05/14/2024 1 2 Reason for Visit * Reason Comments Follow-up Encounter Details Date Type Department Care Team (Late st Contact Info) Description 11/11/2022 11:00 AM EDT Office Visit Hematology [place] [phone] Kavitha Rai MD [facility] DR [place] [address] Malignant neoplasm of overlapping sites of right [...] Sign Reading Time Taken Comments Blood Pressure 117/77 11/11/2022 10:46 AM EDT Pulse 83 11/11/2022 10:46 AM EDT Temperature 36.3 ??C (97.3 ??F) 11/11/2022 10:46 AM E DT Respiratory Rate 18 11/11/2022 10:46 AM EDT Oxygen Saturation 99% 11/11/2022 10:46 AM EDT Inhaled Oxygen Concentration - - Weight 104 kg (229 lb 4.5 oz) 11/11/2022 10:46 A M EDT Height 164.2 cm (5' 4.65) 11/11/2022 10:46 AM E DT Body Mass Index 38.57 11/11/2022 10:46 AM EDT documented in this encounter Progress Notes * Kavitha Rai MD - 11/11/2022 11:00 AM EDT Soy San is a 42 y.o. 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 11/11/2022 On THP. Today is cycle #5. [...] 1st & 2nd week following infusion. Saw [facility] this morning who made recommendations [...] After THP #1, she went to a [employer], ate half a salad. This was fine. [...] in the shower. Subsequently called [facility], seen that day. Examined [...] Multiple hepatic metastases. 4. Multiple osseous metastases 08/18/2022: C1 THP 09/09/22: C2 THP 09/30/22: C3 THP 10/21/21: C4 THP 11/11/22: C5THP Has had two biopsies ( liver and bone) to try to confirm mets, both negative. Both done after starting chemo-abs due to inability to schedule prior to starting treatment. 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 No 911 exposure Review of Systems: [...] 24 hrs: Temp Pulse Resp BP SpO2 11/11/22 1046 36.3 ??C (97.3 ??F) 83 18 117/77 99 % Wt Readings from Last 3 Encounters: 11/11/22 104 kg (229 lb 4.5 oz) 10/21/22 102.5 kg (225 lb 15.5 oz) 09/30/22 104.2 kg (229 lb 11.5 oz) Constitutional: She is oriented to person, [...] Results: Lab Results Component Value Date WBC 5.4 11/11/2022 HGB 12.1 11/11/2022 HCT 36.5 11/11/2022 MCV 88.0 11/11/2022 PLATELET 297 11/11/2022 Lab Results Component Value Date NEUTROABS 3.86 11/11/2022 Lab Results Component Value Date NA 142 11/11/2022 K 3.8 11/11/2022 CL 108 (H) 11/11/2022 CO2 24 11/11/2022 BUN 18 11/11/2022 CREATININE 0.80 11/11/2022 GLUCOSE 130 11/11/2022 CALCIUM 8.8 11/11/2022 ESTGFR 93 11/11/2022 Lab Results Component Value Date ALT 43 (H) 11/11/2022 AST 34 (H) 11/11/2022 ALKPHOS 74 11/11/2022 BILITOT 0.2 11/11/2022 ALBUMIN 3.6 11/11/2022 PROT 6.2 11/11/2022 CEA (ng/mL) Date Value 11/11/2022 3.4 10/21/2022 2.8 09/30/2022 3.5 09/09/2022 5.1 (H) 08/19/2022 14.0 (H) CA 15-3 (unit/mL) Date Value 11/11/2022 45 (H) 10/21/2022 45 (H) 09/30/2022 48 (H) 09/09/2022 54 (H) 08/19/2022 118 (H) MRI brain 09/24/22: No intracranial metastatic disease. Possible small osseous lesion of the inferiorclivus. MRI T-spine 09/02/22: Numerous thoracic spinal metastases, as above with multilevel vertebral body and posterior element involvement. There is mild dorsal epidural disease extension between T8 and [id number] significant mass effect on thecal sac or cord contact. Paraspinal soft tissue involvement with neural foraminal disease bilaterally at T9-T10. No cord signal abnormality, pathologic fracture or significant spinal stenosis. No intradural metastases identified. CT guided biopsy of liver 09/01/2022: Scant liver tissue with preserved portal tracts, sinusoidal dilatation and focal portal inflammation. There is no evidence of malignancy. Multiple deeper levels have been examined. A/P: Soy San is a 42 y.o. [...] had an excellent clinical response to therapy Breast Cancer: on THP #5 today Excellent clinical response with decreasing markers Ordered PET CT to do after #6. Will decide if will go past 6 and transition to phesgo alone bone biopsy results negative Start denusomab over next few cycles. Prilosec sent. Consider valtrex if cryotherapy doesn't work to prevent mouth sores. RTC 3 weeks documented in this encounter Plan of Treatment Upcoming Encounters Date Type Department Care Team (Late st Contact Info) Description 06/14/2024 8:00 AM EST Hospital Encounter Nuclear Medicine at [place] [phone] Consuelo Joyce [facility] [place] [address] 06/14/2024 8:45 AM EST Appointment XRay at [address] [place] [address] Kavitha Rai MD [facility] DR [place] [address] 06/14/2024 9:45 AM EST Appointment Hematology [place] [address] 06/14/2024 11:00 AM EST Appointment [place] [address] Consuelo Joyce [facility] [address] 06/14/2024 1:00 PM EST Office Visit Hematology [place] [address] Kavitha Rai MD [facility] DR [place] [address] 06/14/2024 2:30 PM EST Appointment Hematology [place] [address] 07/05/2024 10:30 AM EDT Appointment Hematology [place] [address] 07/05/2024 11:30 AM EDT Office Visit Hematology [place] [phone] Consuelo Joyce APRN [facility] [place] [address] 07/05/2024 1:00 PM EDT Appointment Hematology [place] [address] 08/16/2024 9:20 AM EDT Office Visit Ophthalmology at [address] Luz Jose, CARSON [facility] [place] [address] 01/14/2025 8:30 AM EDT Office Visit Psychiatry and Behavioral Health at [place] [address] Anna Oneill, PhD [facility] [place] [address] documented as of this encounter Results * [...] who have questions please contact the health geriatric care manager that requested your imaging first. ? Electronically signed by: Jyothi Askew MD, [facility] ??([phone]), at 11/23/2022 5:16 PM Narrative 11/23/2022 5:16 PM EDT EXAMINATION: NM PET CT STANDARD SKULL BASE TO MID-THIGH CLINICAL HISTORY: Adrenal cancer, assess treatment response; Colorectal cancer, assess treatment response Patient has a history of stage IV, HER-2/alexa enriched breast cancer, on treatment with THP. TECHNIQUE: Following IV injection of 61-vtxuhx-3-deoxyglucose (FDG) a standard uptake of approximately 60 [...] with THP. TECHNIQUE: Following IV injection of 15-akvcqa-7-deoxyglucose (FDG) astandard uptake of approximately 60 minutes, [...] previously 4.8 x 3.4 cm and SUV [id number]. Extensive right upper and lower axillary and [...] patients who have questions please contactthe health geriatric care manager that requested your imaging first. Kavitha Rai MD IMG PET ORDERABLES documented in this encounter Visit Diagnoses Diagnosis Malignant neoplasm of overlapping sites of right breast in female, estrogen receptor negative Malignant neoplasm of overlapping sites of right breast in female, estrogen receptor negative documented in this encounter Care Teams Diesel Pile Hammer Operator Relationship Specialty Start Date End Date Ryan Betancourt MD [address] [place] [phone] PCP - General Family Medicine 07/29/22 documented as of this encounter
--- OUTSIDE RECORDS SUMMARY | 2024-06-01 20:43 | XMS_ITS | Encounter Summary ---
Author Organization formerly [place] [address] Care Team Providers Care Lead Ramp Service Man Name Role Phone Ryan Betancourt MD Primary Care Provider [phone] Reason for Visit * Treatment/Therapy Plan Authorization (Routine) - Closed Specialty Diagnoses / Procedures Referred By Ciaran lopez Referred To Contact Diagnoses Malignant neoplasm of overlapping sites of right breast in female, estrogen receptor negative Procedures TC PEGFILGRASTIM, EXCLUDES BIOSIMILAR, 0.5 MG, INJ TC DOCETAXEL, 1MG, INJECTION J9306 PERTuzumab (Perjeta) 840 mg [id number] (Kanjinti) 710 mg Kavitha Rai MD [facility] [address] [place] [address] [facility] [address] [place] [address] Referral ID Status Reason Start Date Expiration Date Visits Re quested Visits Authorized [id number] Closed 08/05/2022 08/06/2023 1 103 Encounter Details Date Type Department Care Team (Latest Contact Info) Description 12/02/2022 8:14 AM EDT - 12/02/2022 11:59 PM EDT Hospital Encounter Hematology [place] [address] Malignant neoplasm of overlapping sites [...] as of this encounter Progress Notes * Abbey Underwood RN - 12/02/2022 8:40 AM EDT Patient Name: Soy San Patient Age: 42 y.o. Birthdate: 1980 Admit date: 12/02/2022 Attending Physician: No att. providers found Access visit. See MAR and/or flowsheet. documented in this encounter Plan of Treatment Upcoming Encounters Date Type Department Care Team (Late st Contact Info) Description 06/14/2024 8:00 AM EST Hospital Encounter [place] [address] Consuelo Joyce APRN [facility] [place] [address] 06/14/2024 8:45 AM EST Appointment XRay at [address] [place] [address] Kavitha Rai MD [facility] DR [place] [address] 06/14/2024 9:45 AM EST Appointment Hematology [place] [address] 06/14/2024 11:00 AM EST Appointment Nuclear Medicine at [place] [address] Consuelo Joyce APRN [facility] [place] [address] 06/14/2024 1:00 PM EST Office Visit Hematology and Oncology at [place] [address] Kavitha Rai MD [facility] DR HEMATOLOGY [place] [address] 06/14/2024 2:30 PM EST Appointment Hematology and Oncology at [place] [address] 07/05/2024 10:30 AM EDT Appointment Hematology and Oncology at [place] [address] 07/05/2024 11:30 AM EDT Office Visit Hematology and Oncology at [place] [address] Consuelo Joyce APRN [facility] [place] [address] 07/05/2024 1:00 PM EDT Appointment Hematology and Oncology at [place] [address] 08/16/2024 9:20 AM EDT Office Visit Ophthalmology at [place] [address] Luz Jose, CARSON [facility] [place] [address] 01/14/2025 8:30 AM EDT Office Visit Psychiatry and Behavioral Health at [place] [address] Anna Oneill, PhD [facility] [place] [address] documented as of this encounter Procedures Procedure Name Priority Date/Time Associated Diagnosis Comments HEMOGRAM STAT 12/02/2022 8:35 AM EDT Malignant neoplasm of overlapping sites of right breast in female, estrogen receptor negative DIFFERENTIAL, AUTOMATED STAT 12/02/2022 8:35 AM EDT Malignant neoplasm of overlapping sites of right breast in female, estrogen receptor negative CANCER ANTIGEN 15-3 STAT 12/02/2022 8 :35 AM EDT Malignant neoplasm of overlapping sites of right breast in female, estrogen receptor negative CBC (WITH DIFF) STAT 12/02/2022 8:35 AM EDT Malignant neoplasm of overlapping sites of right breast in female, estrogen receptor negative COMPREHENSIVE METABOLIC PANEL STAT 12/02/2022 8:35 AM EDT Malignant neoplasm of overlapping sites of right breast in female, estrogen receptor negative documented in this encounter Results * Differential, Automated (12/02/2022 8:35 AM EDT) Neutrophil % 71.4 % [facility] Neutrophil Absolute 4.26 1.70 - 6.10 x10(3)/[facility] Lymph % 17.8 % [facility] Lymphocytes Abs 1.1 0.9 - 3.2 x10(3)/[facility] Monocyte % 9.5 % [facility] Monocyte Abs 0.6 0.3 - 0.9 x10(3)/[facility] Eos % 0.5 % [facility] Eosinophils Abs 0.0 0.0 - 0.4 x10(3)/[facility] Basophil % 0.5 % [facility] Baso Absolute 0.0 0.0 - 0.1 x10(3)/[facility] Immature Gran % 0.30 % [facility] Comment: Immature granulocytes(IG's)percentage and absolute count will include metamyelocytes, myelocytes, and promyelocytes. Blood smears from CBCs yielding IG's will be scanned manually for concordance. If this scan disagrees with the automated IG or if promyelocytes are noted, a manual differential will be performed. Immature Gran Absolute 0.02 0.00 - 0.04 x10(3)/mcL [facility] Blood 12/02/2022 8:35 AM EDT 12/02/2022 8:42 AM EDT Narrative Resulting Agency Comment Spec In Lab Dian Guido [facility] HEMATOLOG[facility] ORDERABLE S Performing Organization Address City/[facility]/ZIP Co de Phone Number [facility] [place] [address] * (ABNORMAL) Hemogram (12/02/2022 8:35 AM EDT) White Blood Cell 6.0 4.0 - 9.5 x10(3)/mc L [facility] Red Blood Cell 4.11 4.00 - 5.21 x10(6)/mc L [facility] Hemoglobin 12.3 11.7 - 15.5 g/dL [facility] Hematocrit 37.1 35.7 - 45.8 % [facility] Mean Cell Volume 90.3 82.6 - 94.4 fL [facility] Mean Cell Hemoglobin 29.9 27.1 - 32.0 pg [facility] Mean Cell Hemoglobin Concentration 33.2 31.7 - 35.0 g/dL [facility] Platelet 259 145 - 357 x10(3)/mc L [facility] RDW Standard Deviation 53.3(H) 37.0 - 46.0 fL [facility] RDW coefficient of variation 15.9(H) 11.5 - 14.1 % [facility] Mean Platelet Volume 10.4 7.6 - 12.9 fL [facility] NRBC% auto 0.0 % [facility] NRBC Absolute 0.000 0.000 - 0.000 x10(3)/mc L [facility] Blood 12/02/2022 8:35 AM EDT 12/02/2022 8:42 AM EDT Narrative Resulting Agency Comment Spec In Lab Dian Guido [facility]AT[facility] ORDERABLE S [facility] [place] [address] * (ABNORMAL) Cancer antigen 15-3 (12/02/2022 8:35 AM EDT) CA 15-3 42(H) <=25 unit/mL [facility] Comment: This result was generated using a Deepak Dequan immunoassay. ??Results obtained from other methods or manufacturers cannot be used interchangeably with this method. Blood 12/02/2022 8:35 AM EDT 12/02/2022 8:42 AM EDT Narrative Resulting Agency Comment Spec In Lab Kavitha Rai MD CHEMISTRY ORDERABLES [facility] [place] [address] * (ABNORMAL) Comprehensive metabolic panel (non-fasting) (12/02/2022 8:35 AM EDT) Glucose 105 65 - 199 mg/dL [facility] Comment:Diabetes: >=200 mg/d L plus symptoms Blood Urea Nitrogen 11 8 - 18 mg/dL [facility] Creatinine 0.78 0.70 - 1.20 mg/dL [facility] Sodium 141 135 - 145 mmol/L [facility] Potassium 3.7 3.5 - 5.0 mmol/L [facility] Comment: Please note: ??Patients with WBC >100,000 may have falsely elevated Potassium levels. ??For accurate Potassium quantification in these patients send serum separator tube (gold top) for subsequent determinations. ??Contact the Clinical Chemistry Laboratory if there are any questions. Chloride 105 98 - 107 mmol/L [facility] Carbon Dioxide 26 22 - 31 mmol/L [facility] Anion Gap 10 5 - 15 mmol/L [facility] Calcium 9.0 8.5 - 10.5 mg/dL [facility] Protein, Total 6.1 6.1 - 8.0 g/dL [facility] Albumin 3.7 3.2 - 5.2 g/dL [facility] Aspartate Aminotransferase 30 0 - 30 unit/L [facility] Alanine Aminotransferase 44(H) 0 - 30 unit/L [facility] Alkaline Phosphatase 61 35 - 105 unit/L [facility] Bilirubin, Total 0.4 0.2 - 1.3 mg/dL [facility] Est Glomerular Filtration Rate 96 >=60 mL/min/1. 73 m?? [facility] Comment: This patient's estimated GFR [...] and symptoms in addition to eGFR. Blood 12/02/2022 8:35 AM EDT 12/02/2022 8:42 AM EDT Narrative Resulting Agency Comment Spec In Lab Kavitha Rai MD CHEMISTRY ORDERABLES [facility] [place] [address] documented in this encounter Visit Diagnoses Diagnosis [...] Intravenous, EVERY 1 MIN PRN, Starting on Tue12/02/22 at 0815, Until Tue12/03/22 at 0435, Line Care, Flush pertains to all indwelling lines. Flush per protocol found in the job aid using the link provided on this medication record. Refer to Intravenous (IV) Job Aid: Adult Flushing & Catheter Care (0918) job aid for additional information regarding guidelines and administration., Routine Given 12/02/2022 8:39 AM EDT 20 mLs documented in this encounter Care Teams Lead Ramp Service Man Relationship Specialty Start Date End Date Ryan Betancourt MD [address] [place] [phone] PCP - General Family Medicine 07/29/22 documented as of this encounter
--- OUTSIDE RECORDS SUMMARY | 2024-06-01 20:43 | XMS_ITS | Encounter Summary ---
[place] [address] Care Team Providers Care Transport Rn Name Role Phone Ryan Betancourt MD Primary Care Provider [phone] Reason for Visit * Reason Comments Breast Cancer * Treatment/Therapy Plan Authorization (Routine) - Closed Specialty Diagnoses / Procedures Referred By Ciaran lopez Referred To Contact Diagnoses Malignant neoplasm of overlapping sites of right breast in female, estrogen receptor negative Procedures TC PEGFILGRASTIM, EXCLUDES BIOSIMILAR, 0.5 MG, INJ TC DOCETAXEL, 1MG, INJECTION J9306 PERTuzumab (Perjeta) 840 mg [id number] (Kanjinti) 710 mg Kavitha aRi MD [facility] [address] [place] [address] [facility] [address] [place] [address] Referral ID Status Reason Start Date Expiration Date Visits Re quested Visits Authorized [id number] Closed 08/05/2022 08/06/2023 1 103 Encounter Details Date Type Department Care Team (Latest Contact Info) Description 11/11/2022 9:33 AM EDT - 11/11/2022 11:59 PM EDT Hospital Encounter [place]ematology [place] [address] Malignant neoplasm of overlapping sites [...] Sign Reading Time Taken Comments Blood Pressure 118/65 11/11/2022 12:50 PM EDT Pulse 78 11/11/2022 12:50 PM EDT Temperature 36.2 ??C (97.1 ??F) 11/11/2022 12:50 PM E DT Respiratory Rate 20 11/11/2022 12:50 PM EDT Oxygen Saturation 97% 11/11/2022 12:50 PM EDT Inhaled Oxygen Concentration - - [...] Progress Notes * Sweetie Potts RN - 11/11/2022 12:48 PM EDT Patient Name: Soy San Patient Age: 42 y.o. Birthdate: 1980 Admit date: 11/11/2022 Attending Physician: No att. providers found TIME TREATMENT STARTED: 1248 TIME TREATMENT ENDED: 1720 Soy San, 42 y.o. female with diagnosis of breast cancer is here for chemotherapy infusion of Pertuzumab, Trastuzumab, Docetaxel and application of Onpro device, placed on posterior region of R upper arm. PROTOCOL: n/a CYCLE: 5 WEEK: n/a DAY: 1 S: Pt. offers [...] AM EST Hospital Encounter Nuclear Medicine at [place] [phone] Consuelo Joyce [facility] [place] [address] 06/14/2024 8:45 AM EST Appointment XRay at [address] [place] [address] Kavitha Rai MD [facility] [address] [place] [address] 06/14/2024 9:45 AM EST Appointment Hematology [place] [address] 06/14/2024 11:00 AM EST Appointment [place] [address] Consuelo Joyce [facility] [place] [address] 06/14/2024 1:00 PM EST Office Visit Hematology [place] [address] Kavitha Rai MD [facility] [address] [place] [address] 06/14/2024 2:30 PM EST Appointment Hematology [place] [address] 07/05/2024 10:30 AM EDT Appointment Hematology [place] [address] 07/05/2024 11:30 AM EDT Office Visit Hematology and Oncology at [place] [phone] Consuelo Joyce APRN [facility] [place] [address] 07/05/2024 1:00 PM EDT Appointment Hematology [place] [address] 08/16/2024 9:20 AM EDT Office Visit Ophthalmology at [place] [address] Luz Jose, CARSON [facility] [place] [address] 01/14/2025 8:30 AM EDT Office Visit Psychiatry and Behavioral Health at [place] [address] Anna Oneill, PhD [facility] [address] documented as of this encounter Visit Diagnoses Diagnosis Malignant neoplasm of overlapping sites of right breast in female, estrogen receptor negative documented in this encounter Administered Medications Inactive Administered Medications - up to 3 most recent administrations Medication Order MAR Action Action Date Dose Rate Site dexAMETHasone (PF) (Decadron) (10 mg/mL) injection 10 mg 10 mg, Intravenous, ONCE, 1 dose, On Yvette 11/11/22 at 1315, Administer 60 minutes prior to DOCEtaxel Given 11/11/2022 1:11 PM EDT 10 mg diphenhydrAMINE (Benadryl) capsule 50 mg 50 mg, Oral, ONCE, 1 dose, On Yvette 11/11/22 at 1315, Administer 60 minutes prior to DOCEtaxel, Routine Given 11/11/2022 1:06 PM EDT 50 mg DOCEtaxeL (Taxotere) 150 mg in sodium chloride 0.9% Non-PVC 257.5 mL infusion 150 mg (75 mg/m2/dose ? 2 m2 Order-specific BSA), Intravenous, ONCE, 1 dose, On Yvette 11/11/22 at 1415, Administer over 60 Minutes, Warning Vesicant/Irritant Medication Capping BSA at 2 m2 New Bag 11/11/2022 3:53 PM EDT 150 mg 257.5 mL/hr famotidine (Pepcid) (10 mg/mL) injection 20 mg 20 mg, Intravenous, ONCE, 1 dose, On Yvette 11/11/22 at 1315, Administer 60 minutes prior to DOCEtaxel Given 11/11/2022 1:07 PM EDT 20 mg heparin (pf) (porcine) (100 units/mL) flush 5 mL syringe 500 Units 500 Units, Intravenous, ONCE PRN, Starting on Tue11/11/22 at 1247, Until Tue11/12/22 at 0436, Line Care, Refer to Intravenous (IV) Procedure: Accessing Implanted Vascular Access Devices (665) procedure and/or Intravenous (IV) Job Aid: Adult Flushing & Catheter Care (3109) job aid for additional information regarding guidelines and administration., Routine Given 11/11/2022 5:05 PM EDT 500 Units ondansetron (Zofran) tablet 8 mg 8 mg, Oral, ONCE, 1 dose, On Yvette 11/11/22 at 1315, Administer prior to chemotherapy, Routine Given 11/11/2022 1:06 PM EDT 8 mg pegfilgrastim (Neulasta Onpro) (6 mg/0.6 mL) injection kit 6 mg 6 mg, Subcutaneous, ONCE, 1 dose, On Yvette 11/11/22 at 1315, Allow the prefilled syringe co-packaged with the on-body injector to reach room temperature at least 30 minutes prior to administration., Routine, This agent is restricted to outpatient use. Is this drug being given as an outpatient? Yes Given 11/11/2022 5:14 PM EDT 6 mg Right Arm PERTuzumab (Perjeta) 420 mg in sodium chloride 0.9% 264 mL infusion 420 mg, Intravenous, ONCE, 1 dose, On Yvette 11/11/22 at 1415, Administer over 30 Minutes, This agent is restricted to outpatient use. Is this drug being given as an outpatient? Yes New Bag 11/11/2022 1:52 PM EDT 420 mg 528 mL/hr sodium chloride 0.9 % (flush) (BD PosiFlush Normal Saline 0.9) flush 5-20 mL 5-20 mL, Intravenous, EVERY 1 MIN PRN, Starting on Yvette 11/11/22 at 1247, Until Tue11/12/22 at 0436, Line Care, Flush pertains to all indwelling lines. Flush per protocol found in the job aid using the link provided on this medication record. Refer to Intravenous (IV) Job Aid: Adult Flushing & Catheter Care (3909) job aid for additional information regarding guidelines and administration., Routine Given 11/11/2022 5:05 PM EDT 20 mLs sodium chloride 0.9% infusion 200 mL/hr, Intravenous, ONCE, 1 dose, On Yvette 11/11/22 at 1315 New Bag 11/11/2022 1:07 PM EDT 200 mL/hr 200 mL/hr TRASTuzumab-anns (Kanjinti) 620 mg in sodium chloride 0.9% 279.55 mL infusion 620 mg (rounded from 615 mg = 6 mg/kg/dose ? 102.5 kg Order-specific weight), Intravenous, ONCE, 1 dose, On Yvette 11/11/22 at 1415, Administer over 30 Minutes, Incompatible in D5W, This agent is restricted to outpatient use. Is this drug being given as an outpatient? Yes New Bag 11/11/2022 3:07 PM EDT 620 mg 559.1 mL/hr documented in this encounter Care Teams Transport Rn Relationship Specialty Start Date End Date Ryan Betancourt MD [address] [place] [phone] PCP - General Family Medicine 07/29/22 documented as of this encounter
--- OUTSIDE RECORDS SUMMARY | 2024-06-01 20:43 | XMS_ITS | Encounter Summary ---
Author Organization [facility] [place] [address] Care Team Providers Care Business Process Consultant Name Role Phone Ryan Betancourt MD Primary Care Provider [phone] Encounter Details Date Type Department Care Team (Latest Contact Info) Description 11/04/2022 11:15 AM EDT Laboratory Appointment Lab [address] [place] [phone] Pre-op testing; Malignant neoplasm of overlapping sites [...] AM EST Hospital Encounter [place] [address] Consuelo Joyce APRN [facility] [place] [address] 06/14/2024 8:45 AM EST Appointment XRay at [address] [place] [address] Kavitha Rai MD [facility] HEMATOLOGY [place] [address] 06/14/2024 9:45 AM EST Appointment Hematology [place] [address] 06/14/2024 11:00 AM EST Appointment [place] [address] Consuelo Joyce APRN [facility] [place] [address] 06/14/2024 1:00 PM EST Office Visit Hematology [place] [phone] Kavitha Rai MD [facility] DR HEMATOLOGY [place] [address] 06/14/2024 2:30 PM EST Appointment Hematology [place] [address] 07/05/2024 10:30 AM EDT Appointment Hematology [place] [address] 07/05/2024 11:30 AM EDT Office Visit Hematology [place] [phone] Consuelo Joyce APRN [facility] [place] [address] 07/05/2024 1:00 PM EDT Appointment Hematology [place] [address] 08/16/2024 9:20 AM EDT Office [place] [address] Luz Jose, CARSON [facility] [place] [address] 01/14/2025 8:30 AM EDT Office Visit Psychiatry and Behavioral Health at [place] [phone] Anna Oneill, PhD [facility] [place] [address] documented as of this encounter Procedures Procedure Name Priority Date/Time Associated Diagnosis Comments PROTHROMBIN TIME STAT 11/04/2022 11:2 1 AM EDT Pre-op testing Malignant neoplasm of overlapping sites of right breast in female, estrogen receptor negative HC PLATELET COUNT STAT 11/04/2022 11: 21 AM EDT Pre-op testing Malignant neoplasm of overlapping sites of right breast in female, estrogen receptor negative documented in this encounter Results * Platelet count (11/04/2022 11:21 AM EDT) Platelet 176 145 - 357 x10(3)/mc L [facility] Immature Plt % 4.0 0.0 - 7.4 % [facility] Comment: Limitation of the Immature Platelet Fraction (IPF)-May be less reliable when the platelet count is less than 71e331/uL due to statistical imprecision. The IPF value [...] in a decreased state of production. References: [employer] The Clinical Value of the Immature Platelet Fraction (IPF) in Cell Recovery Document Number [id number] 09/2010 [employer] The Role of the Immature Platelet Fraction (IPF) in the Differential Diagnosis of Thrombocytopenia, Document [id number] V05 P0514 Blood 11/04/2022 11:2 1 AM EDT 11/04/2022 11:30 AM EDT Narrative Resulting Agency Comment Spec In Lab Kavitha Rai MD HEMATOLOGY ORDERABLE S [facility] [place] [address] * Prothrombin Time (11/04/2022 11:21 AM EDT) Prothrombin Time 11.6 9.4 - 12.5 sec [facility] International Normalization Ratio 1.0 [facility] Comment: An INR <2.0 indicates adequate [...] MD HEMATOLOGY ORDERABLE S Performing Organization Address City/State/[facility] Co de Phone Number [facility] [place] [address] documented in this encounter Visit Diagnoses Diagnosis Pre-op testing Preoperative examination, unspecified Malignant neoplasm of overlapping sites of right breast in female, estrogen receptor negative documented in this encounter Care Teams Business Process Consultant Relationship Specialty Start Date End Date Ryan Betancourt MD [address] [place] [phone] PCP - General Family Medicine 07/29/22 documented as of this encounter
--- OUTSIDE RECORDS SUMMARY | 2024-06-01 20:43 | XMS_ITS | Encounter Summary ---
Author Organization [facility] Address [facility] [place] [address] Care Team Providers Care Supervisor [place] Name Role Phone Ryan Betancourt MD Primary Care Provider [phone] Encounter Details Date Type Department Care Team (Late st Contact Info) Description 12/21/2022 Orders Only Hematology [place] [address] Kavitha Rai MD [facility] [place] [address] Social History Tobacco Use Types Packs/Day Years [...] AM EST Hospital Encounter [place] [address] [facility]uelo [facility] [place] [address] 06/14/2024 8:45 AM EST Appointment XRay at [address] [place] [phone] Kavitha Rai MD [facility] [place] [address] 06/14/2024 9:45 AM EST Appointment Hematology [place] [address] 06/14/2024 11:00 AM EST Appointment [place] [address] Consuelo Joyce [facility] [place] [address] 06/14/2024 1:00 PM EST Office Visit Hematology [place] [address] Kavitha Rai MD [facility] [address] [place] [address] 06/14/2024 2:30 PM EST Appointment Hematology and Oncology at [place] [phone] 07/05/2024 10:30 AM EDT Appointment Hematology and Oncology at [place] [address] 07/05/2024 11:30 AM EDT Office Visit Hematology and Oncology at [place] [phone] Consuelo Joyce APRN [facility] [place] [address] 07/05/2024 1:00 PM EDT Appointment Hematology and Oncology at [place] [phone] 08/16/2024 9:20 AM EDT Office Visit Ophthalmology at [place] [address] Luz Jose, [facility] [place] [address] 01/14/2025 8:30 AM EDT Office Visit Psychiatry and Behavioral Health at [place] [phone] Anna Oneill, PhD [facility] [place] [address] documented as of this encounter Visit Diagnoses Not on filedocumented in this encounter Care Teams Supervisor [place] Relationship Specialty Start Date End Date Ryan Betancourt MD [address] [place] [phone] PCP - General Family Medicine 07/29/22 documented as of this encounter
--- OUTSIDE RECORDS SUMMARY | 2024-06-01 20:44 | XMS_ITS | Encounter Summary ---
[place] [address] Care Team Providers Care E Commerce Web Developer Name Role Phone Ryan Betancourt MD Primary Care Provider [phone] Encounter Details Date Type Department Care Team (Latest Contact Info) Description 09/09/2022 6:50 AM EDT - 09/09/2022 6:59 AM EDT Hospital Encounter [place]ology [place] [phone] Malignant neoplasm of overlapping sites of right [...] Sig Dispensed Refills Start Date End Date multivitamin Capsule Take 1 capsule by mouth daily. betamethasone dipropionate (Diprolene) 0.05 % Cream Apply topically 2 times daily. 30 g 08/25/2022 ondansetron (Zofran) 8 mg tablet Take 1 tablet by mouth every 8 hours as needed for Nausea. 30 tablet 3 08/23/2022 10/03/2022 oxyCODONE-acetaminophen (Percocet) 5-325 mg tablet Take 1 tablet by mouth every 4 hours as needed for Pain. 90 tablet 08/17/2022 09/10/2022 prochlorperazine (Compazine) 10 mg tablet Take 1 tablet by mouth every 6 hours as needed for Nausea. 30 tablet 3 08/11/2022 10/03/2022 documented as of this encounter Plan of Treatment Upcoming Encounters Date Type Department Care Team (Late st Contact Info) Description 06/14/2024 8:00 AM EST Hospital En[place] [phone] Consuelo Joyce APRN [facility] [place] [address] 06/14/2024 8:45 AM EST Appointment XRay at [address] [place] [phone] Kavitha Rai MD [facility] [place] [address] 06/14/2024 9:45 AM EST Appointment Hematology and Oncology at [address] 06/14/2024 11:00 AM EST Appointment Nuclear Medicine at [place] [address] Consuelo Joyce APRN [facility] [place] [address] 06/14/2024 1:00 PM EST Office Visit Hematology and Oncology at [address] Kavitha Rai MD [facility] [address] [place] [address] 06/14/2024 2:30 PM EST Appointment Hematology and Oncology at [place] [phone] 07/05/2024 10:30 AM EDT Appointment Hematology and Oncology at [place] [address] 07/05/2024 11:30 AM EDT Office Visit Hematology and Oncology at [place] [phone] Consuelo Joyce [facility] [place] [address] 07/05/2024 1:00 PM EDT Appointment Hematology and Oncology at [place] [phone] 08/16/2024 9:20 AM EDT Office Visit Ophthalmology at [place] [phone] Luz Jose OD [facility] [place] [place] [address] 01/14/2025 8:30 AM EDT Office Visit Psychiatry and Behavioral Health at [facility] [place] [address] Anna Oneill, PhD [facility] [address] documented as of this encounter Procedures Procedure Name Priority Date/Time Associated Diagnosis Comments HEMOGRAM STAT 09/09/2022 7:19 AM EDT Malignant neoplasm of overlapping sites of right breast in female, estrogen receptor negative DIFFERENTIAL, AUTOMATED STAT 09/09/2022 7:19 AM EDT Malignant neoplasm of overlapping sites of right breast in female, estrogen receptor negative CANCER ANTIGEN 15-3 STAT 09/09/2022 7 :19 AM EDT Malignant neoplasm of overlapping sites of right breast in female, estrogen receptor negative CBC (WITH DIFF) STAT 09/09/2022 7:19 AM EDT Malignant neoplasm of overlapping sites of right breast in female, estrogen receptor negative CEA Routine 09/09/2022 7:19 AM EDT Malignant neoplasm of overlapping sites of right breast in female, estrogen receptor negative COMPREHENSIVE METABOLIC PANEL STAT 09/09/2022 7:19 AM EDT Malignant neoplasm of overlapping sites of right breast in female, estrogen receptor negative documented in this encounter Results * Differential, Automated (09/09/2022 7:19 AM EDT) Neutrophil % 64.1 % [facility] Neutrophil Absolute 3.57 1.70 - 6.10 x10(3)/[facility] LABORAT[facility] Lymph % 25.3 % [facility] Lymphocytes Abs 1.4 0.9 - 3.2 x10(3)/[facility] LABORAT[facility] Monocyte % 7.5 % [facility] IT[facility] Monocyte Abs 0.4 0.3 - 0.9 x10(3)/[facility] LABOR[facility] Eos % 1.8 % [facility] Eosinophils Abs 0.1 0.0 - 0.4 x10(3)/[facility] LAB[facility] Basophil % 1.1 % [facility] Baso Absolute 0.1 0.0 - 0.1 x10(3)/[facility] LABORATORY Immature Gran % 0.20 % [facility] Comment: Immature granulocytes(IG's)percentage and absolute count will include metamyelocytes, myelocytes, and promyelocytes. Blood smears from CBCs yielding IG's will be scanned manually for concordance. If this scan disagrees with the automated IG or if promyelocytes are noted, a manual differential will be performed. Immature Gran Absolute 0.01 0.00 - 0.04 x10(3)/[facility] LAB[facility] Blood 09/09/2022 7:19 AM EDT 09/09/2022 7:35 AM EDT Narrative Resulting Agency Comment Spec In Lab Kavitha Rai MD HEMATOLOGY ORDERABLE S Performing Organization Address City/State/[facility] Co de Phone Number [facility] [place] [address] * (ABNORMAL) Hemogram (09/09/2022 7:19 AM EDT) White Blood Cell 5.6 4.0 - 9.5 x10(3)/mc L [facility] Red Blood Cell 4.51 4.00 - 5.21 x10(6)/mc L [facility] Hemoglobin 12.4 11.7 - 15.5 g/dL [facility] Hematocrit 37.7 35.7 - 45.8 % [facility] Mean Cell Volume 83.6 82.6 - 94.4 fL [facility] Mean Cell Hemoglobin 27.5 27.1 - 32.0 pg [facility] Mean Cell Hemoglobin Concentration 32.9 31.7 - 35.0 g/dL [facility] Platelet 387(H) 145 - 357 x10(3)/mc L [facility] RDW Standard Deviation 39.1 37.0 - 46.0 fL [facility] RDW coefficient of variation 13.2 11.5 - 14.1 % [facility] Mean Platelet Volume 10.3 7.6 - 12.9 fL [facility] NRBC% auto 0.0 % [facility] NRBC Absolute 0.000 0.000 - 0.000 x10(3)/mc L [facility] Blood 09/09/2022 7:19 AM EDT 09/09/2022 7:35 AM EDT Narrative Resulting Agency Comment Spec In Lab Kavitha Rai MD HEMATOLOGY ORDERABLE S Performing Organization Address [facility] Co de Phone Number [facility] [place] [address] * (ABNORMAL) CEA (09/09/2022 7:19 AM EDT) Carcinoembryonic Antigen 5.1(H) <=3.8 ng/mL [facility] Comment: Reference range: ??(20-69 years): Non-smoker: ??less than or equal to 3.8 ng/mL Smoker: ??less than 5.5 ng/ml This result was generated using a Deepak Dequan immunoassay. ??Results obtained from other methods or manufacturers cannot be used interchangeably with this method. Blood 09/09/2022 7:19 AM EDT 09/09/2022 7:35 AM EDT Narrative Resulting Agency Comment Spec In Lab Kavitha Rai MD CHEMISTRY ORDERABLES Performing Organization Address [facility] de Phone Number [facility] [place] [address] * (ABNORMAL) Cancer antigen 15-3 (09/09/2022 7:19 AM EDT) CA 15-3 54(H) <=25 unit/mL [facility] Comment: This result was generated using a Deepak Dequan immunoassay. ??Results obtained from other methods or manufacturers cannot be used interchangeably with this method. Blood 09/09/2022 7:19 AM EDT 09/09/2022 7:35 AM EDT Narrative Resulting Agency Comment Spec In Lab Kavitha Rai MD CHEMISTRY ORDERABLES [facility] [place] [address] * (ABNORMAL) Comprehensive metabolic panel (non-fasting) (09/09/2022 7:19 AM EDT) Glucose 118 65 - 199 mg/dL [facility] Comment:Diabetes: >=200 mg/d L plus symptoms Blood Urea Nitrogen 16 8 - 18 mg/dL [facility] Creatinine 0.99 0.70 - 1.20 mg/dL [facility] Sodium 143 135 - 145 mmol/L [facility] Potassium 4.0 3.5 - 5.0 mmol/L [facility] Comment: Please note: ??Patients with WBC >100,000 may have falsely elevated Potassium levels. ??For accurate Potassium quantification in these patients send serum separator tube (gold top) for subsequent determinations. ??Contact the Clinical Chemistry Laboratory if there are any questions. Chloride 107 98 - 107 mmol/L [facility] Carbon Dioxide 27 22 - 31 mmol/L [facility] Anion Gap 9 5 - 15 mmol/L [facility] Calcium 9.6 8.5 - 10.5 mg/dL [facility] Protein, Total 6.7 6.1 - 8.0 g/dL [facility] Albumin 4.0 3.2 - 5.2 g/dL [facility] Aspartate Aminotransferase 16 0 - 30 unit/L [facility] Alanine Aminotransferase 18 0 - 30 unit/L [facility] Alkaline Phosphatase 148(H) 35 - 105 unit/L [facility] Bilirubin, Total 0.3 0.2 - 1.3 mg/dL [facility] Est Glomerular Filtration Rate 73 >=60 mL/min/1. 73 m?? [facility] Comment: This patient's estimated GFR [...] and symptoms in addition to eGFR. Blood 09/09/2022 7:19 AM EDT 09/09/2022 7:35 AM EDT Narrative Resulting Agency Comment Spec In Lab Kavitha Rai MD CHEMISTRY ORDERABLES [facility] [place] [address] documented in this encounter Visit Diagnoses Diagnosis Malignant neoplasm of overlapping sites of right breast in female, estrogen receptor negative documented in this encounter Care Teams E Commerce Web Developer Relationship Specialty Start Date End Date Ryan Betancourt MD [address] [place] [phone] PCP - General Family Medicine 07/29/22 documented as of this encounter
--- OUTSIDE RECORDS SUMMARY | 2024-06-01 20:44 | XMS_ITS | Encounter Summary ---
Author Organization [facility] Address [facility] [place] [address] Care Team Providers Care Veterinarian Epidemiologist Name Role Phone Ryan Betancourt MD Primary Care Provider [phone] Reason for Visit * Treatment/Therapy Plan Authorization (Routine) - Closed Specialty Diagnoses / Procedures Referred By Ciaran lopez Referred To Contact Diagnoses Malignant neoplasm of overlapping sites of right breast in female, estrogen receptor negative Procedures TC PEGFILGRASTIM, EXCLUDES BIOSIMILAR, 0.5 MG, INJ TC DOCETAXEL, 1MG, INJECTION J9306 PERTuzumab (Perjeta) 840 mg [id number] (Kanjinti) 710 mg Kavitha Rai MD [facility] [address] HEMATOLOGY [place] [address] [facility] [address] [place] [address] Referral ID Status Reason Start Date Expiration Date Visits Re quested Visits Authorized [id number] Closed 08/05/2022 08/06/2023 1 103 Encounter Details Date Type Department Care Team (Latest Contact Info) Description 10/21/2022 7:15 AM EDT Hospital Encounter [place]ology [place] [address] Malignant neoplasm of overlapping sites [...] Progress Notes * Yesenia Murphy RN - 10/21/2022 7:33 AM EDT Patient Name: Soy San Patient Age: 41 y.o. Birthdate: 1980 Admit date: 10/21/2022 Attending Physician: Alexia att. providers found Access visit. See MAR and/or flowsheet. documented in this encounter Plan of Treatment Upcoming Encounters Date Type Department Care Team (Late st Contact Info) Description 06/14/2024 8:00 AM EST Hospital Encounter [place] [address] Consuelo Joyce APRN [facility] [place] [address] 06/14/2024 8:45 AM EST Appointment XRay at [address] [place] [address] Kavitha Rai MD [facility] DR HEMATOLOGY [place] [address] 06/14/2024 9:45 AM EST Appointment Hematology [place] [phone] 06/14/2024 11:00 AM EST Appointment [place] [phone] Consuelo Joyce APRN [facility] [place] [address] 06/14/2024 1:00 PM EST Office Visit Hematology [place] [address] Kavitha Rai MD [facility] DR [place] [address] 06/14/2024 2:30 PM EST Appointment Hematology and Oncology at [place] [phone] 07/05/2024 10:30 AM EDT Appointment Hematology and Oncology at [place] [address] 07/05/2024 11:30 AM EDT Office Visit Hematology and Oncology at [place] [address] Consuelo Joyce APRN [facility] [place] [address] 07/05/2024 1:00 PM EDT Appointment Hematology and Oncology at [place] [address] 08/16/2024 9:20 AM EDT Office Visit Ophthalmology at [place] [address] Luz Jose, [facility] [place] [address] 01/14/2025 8:30 AM EDT Office Visit Psychiatry and Behavioral Health at [place] [address] Anna Oneill, PhD [facility] [place] [place] [address] documented as of this encounter Procedures Procedure Name Priority Date/Time Associated Diagnosis Comments HEMOGRAM STAT 10/21/2022 7:30 AM EDT Malignant neoplasm of overlapping sites of right breast in female, estrogen receptor negative DIFFERENTIAL, AUTOMATED STAT 10/21/2022 7:30 AM EDT Malignant neoplasm of overlapping sites of right breast in female, estrogen receptor negative CANCER ANTIGEN 15-3 STAT 10/21/2022 7 :30 AM EDT Malignant neoplasm of overlapping sites of right breast in female, estrogen receptor negative CBC (WITH DIFF) STAT 10/21/2022 7:30 AM EDT Malignant neoplasm of overlapping sites of right breast in female, estrogen receptor negative CEA Routine 10/21/2022 7:30 AM EDT Malignant neoplasm of overlapping sites of right breast in female, estrogen receptor negative COMPREHENSIVE METABOLIC PANEL STAT 10/21/2022 7:30 AM EDT Malignant neoplasm of overlapping sites of right breast in female, estrogen receptor negative documented in this encounter Results * Differential, Automated (10/21/2022 7:30 AM EDT) Neutrophil % 74.3 % [facility] Neutrophil Absolute 4.46 1.70 - 6.10 x10(3)/[facility] Lymph % 17.6 % [facility] Lymphocytes Abs 1.1 0.9 - 3.2 x10(3)/[facility] Monocyte % 6.8 % [facility] Monocyte Abs 0.4 0.3 - 0.9 x10(3)/[facility] Eos % 0.3 % [facility] Eosinophils Abs 0.0 0.0 - 0.4 x10(3)/[facility] Basophil % 0.5 % [facility] Baso Absolute 0.0 0.0 - 0.1 x10(3)/[facility] Immature Gran % 0.50 % [facility] Comment: Immature granulocytes(IG's)percentage and absolute count will include metamyelocytes, myelocytes, and promyelocytes. Blood smears from CBCs yielding IG's will be scanned manually for concordance. If this scan disagrees with the automated IG or if promyelocytes are noted, a manual differential will be performed. Immature Gran Absolute 0.03 0.00 - 0.04 x10(3)/mcL [facility] Blood 10/21/2022 7:30 AM EDT 10/21/2022 7:42 AM EDT Narrative Resulting Agency Comment Spec In Lab Kavitha Rai MD HEMATOLOGY ORDERABLE S [facility] [place] [address] * (ABNORMAL) Hemogram (10/21/2022 7:30 AM EDT) White Blood Cell 6.0 4.0 - 9.5 x10(3)/mc L [facility] Red Blood Cell 4.52 4.00 - 5.21 x10(6)/mc L [facility] Hemoglobin 13.1 11.7 - 15.5 g/dL [facility] Hematocrit 38.9 35.7 - 45.8 % [facility] Mean Cell Volume 86.1 82.6 - 94.4 fL [facility] Mean Cell Hemoglobin 29.0 27.1 - 32.0 pg [facility] Mean Cell Hemoglobin Concentration 33.7 31.7 - 35.0 g/dL [facility] Platelet 254 145 - 357 x10(3)/mc L [facility] RDW Standard Deviation 47.7(H) 37.0 - 46.0 fL [facility] RDW coefficient of variation 15.4(H) 11.5 - 14.1 % [facility] Mean Platelet Volume 10.9 7.6 - 12.9 fL [facility] NRBC% auto 0.0 % [facility] NRBC Absolute 0.000 0.000 - 0.000 x10(3)/mc L [facility] Blood 10/21/2022 7:30 AM EDT 10/21/2022 7:42 AM EDT Narrative Resulting Agency Comment Spec In Lab Kavitha Rai MD HEMATOLOGY ORDERABLE S Performing Organization Address City/[facility]/ZIP Co de Phone Number [facility] [place] [address] * (ABNORMAL) Cancer antigen 15-3 (10/21/2022 7:30 AM EDT) CA 15-3 45(H) <=25 unit/mL [facility] Comment: This result was generated using a Deepak Dequan immunoassay. ??Results obtained from other methods or manufacturers cannot be used interchangeably with this method. Blood 10/21/2022 7:30 AM EDT 10/21/2022 7:42 AM EDT Narrative Resulting Agency Comment Spec In Lab Kavitha Rai MD CHEMISTRY ORDERABLES [facility] [place] [address] * (ABNORMAL) Comprehensive metabolic panel (non-fasting) (10/21/2022 7:30 AM EDT) Glucose 127 65 - 199 mg/dL [facility] Comment:Diabetes: >=200 mg/d L plus symptoms Blood Urea Nitrogen 12 8 - 18 mg/dL [facility] Creatinine 1.01 0.70 - 1.20 mg/dL [facility] Sodium 140 135 - 145 mmol/L [facility] Potassium 3.6 3.5 - 5.0 mmol/L [facility] Comment: Please note: ??Patients with WBC >100,000 may have falsely elevated Potassium levels. ??For accurate Potassium quantification in these patients send serum separator tube (gold top) for subsequent determinations. ??Contact the Clinical Chemistry Laboratory if there are any questions. Chloride 105 98 - 107 mmol/L [facility] Carbon Dioxide 24 22 - 31 mmol/L [facility] Anion Gap 11 5 - 15 mmol/L [facility] Calcium 9.3 8.5 - 10.5 mg/dL [facility] Protein, Total 6.3 6.1 - 8.0 g/dL [facility] Albumin 3.9 3.2 - 5.2 g/dL [facility] Aspartate Aminotransferase 31(H) 0 - 30 unit/L [facility] Alanine Aminotransferase 40(H) 0 - 30 unit/L [facility] Alkaline Phosphatase 85 35 - 105 unit/L [facility] Bilirubin, Total 0.6 0.2 - 1.3 mg/dL [facility] Est Glomerular Filtration Rate 71 >=60 mL/min/1. 73 m?? [facility] Comment: This patient's estimated [...] and symptoms in addition to eGFR. Blood 10/21/2022 7:30 AM EDT 10/21/2022 7:42 AM EDT Narrative Resulting Agency Comment Spec In Lab Kavitha Rai MD CHEMISTRY ORDERABLES Performing Organization Address City/[facility] Co de Phone Number [facility] [place] [address] * CEA (10/21/2022 7:30 AM EDT) Carcinoembryonic Antigen 2.8 <=3.8 ng/mL [facility] Comment: Reference range: ??(20-69 years): Non-smoker: ??less than or equal to 3.8 ng/mL Smoker: ??less than 5.5 ng/ml This result was generated using a Deepak Dequan immunoassay. ??Results obtained from other methods or manufacturers cannot be used interchangeably with this method. Blood 10/21/2022 7:30 AM EDT 10/21/2022 7:42 AM EDT Narrative Resulting Agency Comment Spec In Lab Kavitha Rai MD CHEMISTRY ORDERABLES Performing Organization Address City/[facility] Co de Phone Number [facility] [place] [address] documented in this encounter Visit Diagnoses Diagnosis [...] EVERY 1 MIN PRN, Starting on Yvette 10/21/22 at 0720, Until 10/22/22 at 0436, Line Care, Flush pertains to all indwelling lines. Flush per protocol found in the job aid using the link provided on this medication record. Refer to Intravenous (IV) Job Aid: Adult Flushing & Catheter Care (6042) job aid for additional information regarding guidelines and administration., Routine Given 10/21/2022 7:32 AM EDT 20 mLs documented in this encounter Care Teams Veterinarian Epidemiologist Relationship Specialty Start Date End Date Ryan Betancourt MD [address] [place] [phone] PCP - General Family Medicine 07/29/22 documented as of this encounter
--- OUTSIDE RECORDS SUMMARY | 2024-06-01 20:44 | XMS_ITS | Encounter Summary ---
[place] [address] Care Team Providers Care Refining Engineer Name Role Phone Ryan Betancourt MD Primary Care Provider [phone] Reason for Visit * Reason Comments Chemotherapy Pertuzumab/trastuzum ab/docetaxel * Treatment/Therapy Plan Authorization (Routine) - Closed Specialty Diagnoses / Procedures Referred By Ciaran lopez Referred To Contact Diagnoses Malignant neoplasm of overlapping sites of right breast in female, estrogen receptor negative Procedures TC PEGFILGRASTIM, EXCLUDES BIOSIMILAR, 0.5 MG, INJ TC DOCETAXEL, 1MG, INJECTION J9306 PERTuzumab (Perjeta) 840 mg [id number] (Kanjinti) 710 mg Kavitha Rai MD [facility] DR HEMATOLOGY [place] [address] [facility] [address] [place] [address] Referral ID Status Reason Start Date Expiration Date Visits Re quested Visits Authorized [id number] Closed 08/05/2022 08/06/2023 1 103 Encounter Details Date Type Department Care Team (Latest Contact Info) Description 09/30/2022 7:37 AM EDT - 09/30/2022 11:59 PM EDT Hospital Encounter Hematology [place]cology [place] [address] Malignant neoplasm of overlapping sites [...] topically 2 times daily. 30 g 08/25/2022 oxyCODONE-acetaminophen (Percocet) 5-325 mg tablet Take 1 tablet by mouth every 4 hours as needed for Pain. 90 tablet 09/23/2022 03/17/2023 ondansetron (Zofran) 8 mg tablet Take 1 tablet by mouth every 8 hours as needed for Nausea. 30 tablet 3 08/23/2022 10/03/2022 prochlorperazine (Compazine) 10 mg tablet Take 1 tablet by mouth every 6 hours as needed for Nausea. 30 tablet 3 08/11/2022 10/03/2022 documented as of this encounter Progress Notes * Kenzie Britt RN - 09/30/2022 3:33 PM EDT TIME TREATMENT STARTED: 1235 TIME TREATMENT ENDED: 1641 Soy San, 41 y.o. female with diagnosis of ER- R breast cancer is here for chemotherapy infusion of pertuzumab, trastuzumab, and docetaxel. PROTOCOL: N/A CYCLE: 3 DAY: 1 S: Pt. offers no complaints at this time. Chemo checks performed per policy. Reviewed plan of care for Infusion visit, patient verbalized understanding of plan as outlined. Patient discharged to home. O: Patient's Chemotherapy orders independently verified for correct drug name, route and dosage perpatient's height, weight and BSA by Kenzie Britt RN and Pharmacist. REACTIONS (DESCRIPTION, TIME, INTERVENTION AND EFFECTIVENESS) None noted. A: Pt. tolerated treatment well. Soy San confirms that all questions and issues have been addressed. P: Return to clinic per routine. documented in this encounter Plan of Treatment Upcoming Encounters Date Type Department Care Team (Late st Contact Info) Description 06/14/2024 8:00 AM EST Hospital En[place] [phone] Consuelo Joyce APRN [facility] [place] [address] 06/14/2024 8:45 AM EST Appointment XRay at [address] [place] [phone] Kavitha Rai MD [facility] DR HEMATOLOGY [place] [address] 06/14/2024 9:45 AM EST Appointment Hematology and [place]cology [place] [address] 06/14/2024 11:00 AM EST Appointment Nuclear Medicine at [address] [facility] [place] [address] 06/14/2024 1:00 PM EST Office Visit Hematology and Oncology at [address] Kavitha Rai MD [facility] [address] [place] [address] 06/14/2024 2:30 PM EST Appointment Hematology and Oncology at [place] [address] 07/05/2024 10:30 AM EDT Appointment Hematology and Oncology at [address] 07/05/2024 11:30 AM EDT Office Visit Hematology and Oncology at [place] [phone] [facility] [place] [address] 07/05/2024 1:00 PM EDT Appointment Hematology and Oncology at [place] [phone] 08/16/2024 9:20 AM EDT Office Visit Ophthalmology at [place] [phone] Luz Jose OD [facility] [place] [address] 01/14/2025 8:30 AM EDT Office Visit Psychiatry and Behavioral Health [place] [address] Anna Oneill, PhD [facility] [place] [address] documented as of this encounter Results * (ABNORMAL) Cancer antigen 15-3 (09/30/2022 8:00 AM EDT) CA 15-3 48(H) <=25 unit/mL [facility] Comment: This result was generated using a Deepak Dequan immunoassay. ??Results obtained from other methods or manufacturers cannot be used interchangeably with this method. Blood 09/30/2022 8:00 AM EDT 09/30/2022 8:15 AM EDT Narrative Resulting Agency Comment Spec In Lab Kavitha Rai MD CHEMISTRY ORDERABLES [facility] [place] [address] * (ABNORMAL) Comprehensive metabolic panel (non-fasting) (09/30/2022 8:00 AM EDT) Glucose 128 65 - 199 mg/dL [facility] Comment:Diabetes: >=200 mg/d L plus symptoms Blood Urea Nitrogen 12 8 - 18 mg/dL [facility] Creatinine 0.78 0.70 - 1.20 mg/dL [facility] Sodium 140 135 - 145 mmol/L [facility] Potassium 3.6 3.5 - 5.0 mmol/L [facility] Comment: Please note: ??Patients with WBC >100,000 may have falsely elevated Potassium levels. ??For accurate Potassium quantification in these patients send serum separator tube (gold top) for subsequent determinations. ??Contact the Clinical Chemistry Laboratory if there are any questions. Chloride 105 98 - 107 mmol/L [facility] Carbon Dioxide 23 22 - 31 mmol/L [facility] Anion Gap 12 5 - 15 mmol/L [facility] Calcium 9.2 8.5 - 10.5 mg/dL [facility] Protein, Total 6.6 6.1 - 8.0 g/dL [facility] Albumin 4.0 3.2 - 5.2 g/dL [facility] Aspartate Aminotransferase 21 0 - 30 unit/L [facility] Alanine Aminotransferase 30 0 - 30 unit/L [facility] Alkaline Phosphatase 111(H) 35 - 105 unit/L [facility] Bilirubin, Total 0.5 0.2 - 1.3 mg/dL [facility] Est Glomerular Filtration Rate 97 >=60 mL/min/1. 73 m?? [facility] Comment: This patient's estimated GFR [...] and symptoms in addition to eGFR. Blood 09/30/2022 8:00 AM EDT 09/30/2022 8:15 AM EDT Narrative Resulting Agency Comment Spec In Lab Kavitha Rai MD CHEMISTRY ORDERABLES Performing Organization Address City/State/[facility] Co de Phone Number [facility] [place] [address] documented in this encounter Visit Diagnoses Diagnosis Malignant neoplasm of overlapping sites of right breast in female, estrogen receptor negative documented in this encounter Administered Medications Inactive Administered Medications - up to 3 most recent administrations Medication Order MAR Action Action Date Dose Rate Site dexAMETHasone (PF) (Decadron) (10 mg/mL) injection 10 mg 10 mg, Intravenous, ONCE, 1 dose, On Yvette 09/30/22 at 1015, Administer 60 minutes prior to DOCEtaxel Given 09/30/2022 1:09 PM EDT 10 mg diphenhydrAMINE (Benadryl) capsule 50 mg 50 mg, Oral, ONCE, 1 dose, On Yvette 09/30/22 at 1015, Administer 60 minutes prior to DOCEtaxel, Routine Given 09/30/2022 1:08 PM EDT 50 mg DOCEtaxeL (Taxotere) 150 mg in sodium chloride 0.9% Non-PVC 257.5 mL infusion 150 mg (75 mg/m2/dose ? 2 m2 Order-specific BSA), Intravenous, ONCE, 1 dose, On Yvette 09/30/22 at 1115, Administer over 60 Minutes, Warning Vesicant/Irritant Medication Capping BSA at 2 m2 New Bag 09/30/2022 3:18 PM EDT 150 mg 257.5 mL/hr famotidine (Pepcid) (10 mg/mL) injection 20 mg 20 mg, Intravenous, ONCE, 1 dose, On Yvette 09/30/22 at 1015, Administer 60 minutes prior to DOCEtaxel Given 09/30/2022 1:08 PM EDT 20 mg heparin (pf) (porcine) (100 units/mL) flush 5 mL syringe 500 Units 500 Units, Intravenous, ONCE PRN, Starting on Yvette 09/30/22 at 0953, Until Tue10/01/22 at 0434, Line Care, Refer to Intravenous (IV) Procedure: Accessing Implanted Vascular Access Devices (529) procedure and/or Intravenous (IV) Job Aid: Adult Flushing & Catheter Care (7861) job aid for additional information regarding guidelines and administration., Routine Given 09/30/2022 4:28 PM EDT 500 Units ondansetron (Zofran) tablet 8 mg 8 mg, Oral, ONCE, 1 dose, On Yvette 09/30/22 at 1015, Administer prior to chemotherapy, Routine Given 09/30/2022 1:08 PM EDT 8 mg pegfilgrastim (Neulasta Onpro) (6 mg/0.6 mL) injection kit 6 mg 6 mg, Subcutaneous, ONCE, 1 dose, On Yvette 09/30/22 at 1015, Allow the prefilled syringe co-packaged with the on-body injector to reach room temperature at least 30 minutes prior to administration., Routine, This agent is restricted to outpatient use. Is this drug being given as an outpatient? Yes Given 09/30/2022 4:32 PM EDT 6 mg PERTuzumab (Perjeta) 420 mg in sodium chloride 0.9% 264 mL infusion 420 mg, Intravenous, ONCE, 1 dose, On Yvette 09/30/22 at 1115, Administer over 30 Minutes, This agent is restricted to outpatient use. Is this drug being given as an outpatient? Yes New Bag 09/30/2022 1:20 PM EDT 420 mg 528 mL/hr sodium chloride 0.9 % (flush) (BD PosiFlush Normal Saline 0.9) flush 5-20 mL 5-20 mL, Intravenous, EVERY 1 MIN PRN, Starting on Yvette 09/30/22 at 0953, Until Tue10/01/22 at 0434, Line Care, Flush pertains to all indwelling lines. Flush per protocol found in the job aid using the link provided on this medication record. Refer to Intravenous (IV) Job Aid: Adult Flushing & Catheter Care (0007) job aid for additional information regarding guidelines and administration., Routine Given 09/30/2022 4:28 PM EDT 20 mLs sodium chloride 0.9% infusion 200 mL/hr, Intravenous, ONCE, 1 dose, On Yvette 09/30/22 at 1015 New Bag 09/30/2022 1:09 PM EDT 200 mL/hr 200 mL/hr TRASTuzumab-anns (Kanjinti) 670 mg in sodium chloride 0.9% 281.94 mL infusion 670 mg (rounded from 672 mg = 6 mg/kg/dose ? 112 kg Treatment plan Recorded weight), Intravenous, ONCE, 1 dose, On Yvette 09/30/22 at 1115, Administer over 30 Minutes, Incompatible in D5W, This agent is restricted to outpatient use. Is this drug being given as an outpatient? Yes New Bag 09/30/2022 2:33 PM EDT 670 mg 563.9 mL/hr documented in this encounter Care Teams Refining Engineer Relationship Specialty Start Date End Date Ryan Betancourt MD [address] [place] [phone] PCP - General Family Medicine 07/29/22 documented as of this encounter
--- OUTSIDE RECORDS SUMMARY | 2024-06-01 20:44 | XMS_ITS | Encounter Summary ---
[place] [address] Care Team Providers Care Drafter Chief Design Name Role Phone Ryan Betancourt MD Primary Care Provider [phone] Reason for Referral * Diagnostic Test (Routine) - Closed Specialty Diagnoses / Procedures Referred By Ciaran lopez Referred To Contact Radiology Diagnoses Malignant neoplasm of left breast in female, estrogen receptor positive, unspecified site of breast Procedures CT Guided Biopsy Bone (Spine/Skull) Dian Lora PA [facility] [address] [place] [address] [facility] [place] [address] Referral ID Status Reason Start Date Expiration Date V isits Requested Visits Authorized [id number] Closed Specialty Service Requested 09/30/2022 04/01/2024 1 1 Reason for Visit * Reason Comments Follow-up Encounter Details Date Type Department Care Team ([facility] Contact Info) Description 09/30/2022 9:00 AM EDT Office Visit Hematology [place] [phone] Dian Lora PA Malignant neoplasm of left breast in female, estrogen receptor positive, unspecified site of breast Social History Tobacco Use Types Packs/Day Years Used Date Smoking Tobacco: Former Cigarettes 0.3 1 1 996 - 1996 Smokeless Tobacco: Former Tobacco Cessation:Counseling Given: Not Answered Alcohol Use Standard Drinks/Week Comments Not Currently 4 (1 standard drink = 0.6 oz pure alcohol) not drinking x 2 months since chemo Overall Financial Resource Strain (CARDIA) Harley r Charles Recorded How hard is it for you [...] Sign Reading Time Taken Comments Blood Pressure 115/81 09/30/2022 8:36 AM EDT Pulse 75 09/30/2022 8:36 AM EDT Temperature 36.5 ??C (97.7 ??F) 09/30/2022 8:36 AM ED T Respiratory Rate 19 09/30/2022 8:36 AM EDT Oxygen Saturation 96% 09/30/2022 8:36 AM EDT Inhaled Oxygen Concentration - - Weight 104.2 kg (229 lb 11. 5 oz) 09/30/2022 8:36 AM EDT Height 163.1 cm (5' 4.21) 09/30/2022 8:36 AM ED T Shoes OFF Body Mass Index 39.17 09/30/2022 8:36 AM EDT documented in this encounter Progress Notes * Dian Lora PA - 09/30/2022 9:00 AM EDT Images from the original note were not included. Soy San is a 41 y.o. 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 09/30/22 Here today for C3 THP, accompanied [...] After THP #1, she went to a scroll kit, ate half a salad. This was fine. [...] right breast in the shower. Subsequently called [facility] womans wellness, seen that day. 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 Physical Exam: Constitutional: She is oriented to person, place, and time. She appears well- developed and well-nourished. No distress. Head: Normocephalic. Eyes: Conjunctivae are normal. Pupils are equal, round, and reactive to light. Neck: Normal range of motion. Cardiovascular: Normal rate, regular rhythm and normal heart sounds. Pulmonary/Chest: Effort normal and breath sounds normal. Breasts: Right breast: No discrete mass. Improved pinkish sq nodules @ 3 oc (see picture). Right axilla 3 cmLN was palpated on initial presentation but no longer appreciated today. Left breast: normal. Abdominal: Soft. Bowel sounds are normal. There is no tenderness. Musculoskeletal: Normal range of motion. Extremities: no clubbing, cyanosis or edema Neurological: She is alert and oriented to person, place, and time. Gait normal. Skin: Skin is warm and dry. Psychiatric: She has a normal mood and affect. Her behavior is normal. Results: MRI brain 09/24/22: No intracranial metastatic disease. Possible small osseous lesion of the inferiorclivus. MRI T-spine 09/02/22: Numerous thoracic spinal metastases, as above with multilevel vertebral body and posterior element involvement. There is mild dorsal epidural disease extension between T8 and [id number] significant mass effect on thecal sac or [...] been examined. A/P: Soy San is a 41 y.o. 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 She is s/p a right breast and axillarybiopsy. She is presently on THP (Ruthy regimen) given the high pre-test probability of her having metastatic disease. We are awaiting scheduling of bone bx to r/o metastatic disease because, though negative, liver bx was technically difficult and MRI T-spine shows numerous thoracic spinal mets.Today's labs reviewed. She will proceed with C3 THP with previously reduced dose of Perjeta. Continue Zofran, oxycodone, imodium PRN. Continue cryotherapy to prevent mouth sores and numbness/tinglingof hands/feet. Message sent to operations specialist to schedule cycles 4-6 of THP. Dian Lora PA-C Breast Medical Oncology [facility] Pager - [phone] documented in this encounter Plan of Treatment Upcoming Encounters Date Type Department Care Team (Late st Contact Info) Description 06/14/2024 8:00 AM EST Hospital En[place] [phone] Consuelo Joyce APRN [facility] [address] 06/14/2024 8:45 AM EST Appointment XRay at [address] [place] [address] Kavitha Rai MD [facility] [place] [address] 06/14/2024 9:45 AM EST Appointment Hematology [place] [phone] 06/14/2024 11:00 AM EST Appointment [place] [phone] Consuelo Joyce APRN [facility] [place] [address] 06/14/2024 1:00 PM EST Office Visit Hematology [place] [address] Kavitha Rai MD [facility] DR [place] [address] 06/14/2024 2:30 PM EST Appointment Hematology [place] [phone] 07/05/2024 10:30 AM EDT Appointment Hematology and Oncology at [place] [address] 07/05/2024 11:30 AM EDT Office Visit Hematology and Oncology at [address] Consuelo Joyce APRN [facility] [place] [address] 07/05/2024 1:00 PM EDT Appointment Hematology and Oncology at [place] [phone] 08/16/2024 9:20 AM EDT Office Visit Ophthalmology at [place] [address] Luz Jose, [facility] [place] [address] 01/14/2025 8:30 AM EDT Office Visit Psychiatry [place] [address] nAna Oneill, PhD [facility] [address] documented as of this encounter Results * CT Guided Biopsy [...] have questions please contact the health home health care worker that requested your imaging first. ? Electronically signed by: Samm Nascimento MD, [facility] ([phone]), at 11/05/2022 2:09 PM Narrative 11/05/2022 2:09 [...] pre- procedural time-out was performed as per [facility] protocol. The patient was placed in the [...] barrier technique was utilized. The 13 G Foremost bone biopsy set was employed. The penetration [...] Nurse. Kavitha Rai MD IMG CT ORDERABLES documented in this encounter Visit Diagnoses Diagnosis Malignant neoplasm of left breast in female, estrogen receptor positive, unspecified site of breast Pre-op testing Preoperative examination, unspecified Malignant neoplasm of overlapping sites of right breast in female, estrogen receptor negative Malignant neoplasm of left breast in female, estrogen receptor positive, unspecified site of breast documented in this encounter Care Teams Drafter Chief Design Relationship Specialty Start Date End Date Ryan Betancourt MD [address] [place] [phone] PCP - General Family Medicine 07/29/22 documented as of this encounter
--- OUTSIDE RECORDS SUMMARY | 2024-06-01 20:44 | XMS_ITS | Encounter Summary ---
Author Organization [facility] Address [facility] [place] [address] Care Team Providers Care Clinical Informatics Strategist Name Role Phone Ryan Betancourt MD Primary Care Provider [phone] Encounter Details Date Type Department Care Team (Late st Contact Info) Description 10/18/2022 Orders Only Hematology [place] [address] Kavitha Rai MD [facility] DR HEMATOLOGY [place] [address] Social History Tobacco Use Types Packs/Day Years [...] AM EST Hospital Encounter [place] [address] [facility] [place] [address] 06/14/2024 8:45 AM EST Appointment XRay at [address] [place] [address] Kavitha Rai MD [facility] DR HEMATOLOGY [place] [address] 06/14/2024 9:45 AM EST Appointment Hematology [place] [address] 06/14/2024 11:00 AM EST Appointment [place] [address] Consuelo Joyce [facility] [place] [address] 06/14/2024 1:00 PM EST Office Visit Hematology [place] [address] Kavitha Rai MD [facility] DR [place] [address] 06/14/2024 2:30 PM EST Appointment Hematology and Oncology at [place] [phone] 07/05/2024 10:30 AM EDT Appointment Hematology and Oncology at [place] [address] 07/05/2024 11:30 AM EDT Office Visit Hematology and Oncology at [place] [phone] Consuelo Joyce APRN [facility] [place] [address] 07/05/2024 1:00 PM EDT Appointment Hematology and Oncology at [place] [phone] 08/16/2024 9:20 AM EDT Office Visit Ophthalmology at [place] [address] Lzu Jose, [facility] [place] [address] 01/14/2025 8:30 AM EDT Office Visit Psychiatry and Behavioral Health at [place] [phone] Anna Oneill, PhD [facility] [place] [address] documented as of this encounter Visit Diagnoses Not on filedocumented in this encounter Care Teams Clinical Informatics Strategist Relationship Specialty Start Date End Date Ryan Betancourt MD [address] [place] [phone] PCP - General Family Medicine 07/29/22 documented as of this encounter
--- OUTSIDE RECORDS SUMMARY | 2024-06-01 20:44 | XMS_ITS | Encounter Summary ---
Author Organization [facility] Address [facility] [place] [address] Care Team Providers Care Co Teacher Name Role Phone Ryan Betancourt MD Primary Care Provider [phone] Encounter Details Date Type Department Care Team (Late st Contact Info) Description 10/18/2022 Orders Only Hematology [place] [address] Kavitha Rai MD [facility] DR HEMATOLOGY [place] [address] Social History Tobacco Use Types Packs/Day Years [...] AM EST Hospital Encounter [place] [address] [facility]uelo [facility] [place] [address] 06/14/2024 8:45 AM EST Appointment XRay at [address] [place] [address] Kavitha Rai MD [facility] DR HEMATOLOGY [place] [address] 06/14/2024 9:45 AM EST Appointment Hematology [place] [address] 06/14/2024 11:00 AM EST Appointment [place] [address] Consuelo Joyce [facility] [place] [address] 06/14/2024 1:00 PM EST Office Visit Hematology [place] [address] Kavitha Rai MD [facility] DR [place] [address] 06/14/2024 2:30 PM EST Appointment Hematology and Oncology at [place] [phone] 07/05/2024 10:30 AM EDT Appointment Hematology and Oncology at [place] [address] 07/05/2024 11:30 AM EDT Office Visit Hematology and Oncology at [place] [phone] Consuelo Joyce APRN [facility] [place] [address] 07/05/2024 1:00 PM EDT Appointment Hematology and Oncology at [place] [phone] 08/16/2024 9:20 AM EDT Office Visit Ophthalmology at [place] [address] Luz Jose, [facility] [place] [address] 01/14/2025 8:30 AM EDT Office Visit Psychiatry and Behavioral Health at [place] [phone] Anna Oneill, PhD [facility] [place] [address] documented as of this encounter Visit Diagnoses Not on filedocumented in this encounter Care Teams Co Teacher Relationship Specialty Start Date End Date Ryan Betancourt MD [address] [place] [phone] PCP - General Family Medicine 07/29/22 documented as of this encounter
--- OUTSIDE RECORDS SUMMARY | 2024-06-01 20:44 | XMS_ITS | Encounter Summary ---
Author Organization [facility] Address [facility] [place] [address] Care Team Providers Care Planner Scheduler Name Role Phone Ryan Betancourt MD Primary Care Provider [phone] Reason for Visit * Treatment/Therapy Plan Authorization (Routine) - Closed Specialty Diagnoses / Procedures Referred By Ciaran lopez Referred To Contact Diagnoses Malignant neoplasm of overlapping sites of right breast in female, estrogen receptor negative Procedures TC PEGFILGRASTIM, EXCLUDES BIOSIMILAR, 0.5 MG, INJ TC DOCETAXEL, 1MG, INJECTION J9306 PERTuzumab (Perjeta) 840 mg [id number] (Kanjinti) 710 mg Kavitha Rai MD [facility] DR HEMATOLOGY [place] [address] [facility] Onc [address] [place] [address] Referral ID Status Reason Start Date Expiration Date Visits Re quested Visits Authorized [id number] Closed 08/05/2022 08/06/2023 1 103 Encounter Details Date Type Department Care Team (Latest Contact Info) Description 09/09/2022 6:49 AM EDT Hospital Encounter Hematology [place] [address] Malignant neoplasm of overlapping sites [...] Sign Reading Time Taken Comments Blood Pressure 112/70 09/09/2022 8:15 AM EDT Pulse 78 09/09/2022 8:15 AM EDT Temperature 36.4 ??C (97.5 ??F) 09/09/2022 8:15 AM ED T Respiratory Rate 20 09/09/2022 8:15 AM EDT Oxygen Saturation 98% 09/09/2022 8:15 AM EDT Inhaled Oxygen Concentration - - Weight 107.2 kg (236 lb 5.3 oz) 09/09/2022 8:15 AM EDT Height 166 cm (5' 5.35) 09/09/2022 8:15 AM EDT Body Mass Index 38.9 09/09/2022 8:15 AM EDT documented in this encounter Medications [...] Progress Notes * Nelly Ngo RN - 09/09/2022 8:07 AM EDT Patient Name: Soy San Patient Age: 41 y.o. Birthdate: 1980 Admit date: 09/09/2022 Attending Physician: No att. providers found oSy San, 41 y.o. female with diagnosis of breast cancer is here for chemotherapy infusion of pertuzumab, trastuzumab, and docetaxel with Onpro application. Patient observed 30 minutespost pertuzumab per protocol. PROTOCOL: no CYCLE: 2 DAY: 1 LVEF: 08/11/22 60% S: Patient offers no complaints at this time. She states she did have a rash after her last infusion. She will continue to monitor this in case it is a reaction to her pertuzumab. O: Chemotherapy orders independently verified for correct [...] clinic hours (8am-5pm Tuesday-Tuesday): pt. can call [phone] with questions or concerns. After clinic hours (5pm-8am Tuesday-Tuesday and weekends) pt can call [phone] and ask for the wealth management director/oncologist hr business partner consultant. Soy San verbalized understanding of potential chemotherapy [...] AM EST Hospital Encounter [place] [address] Consuelo Joyce [facility] [place] [address] 06/14/2024 8:45 AM EST Appointment XRay at [address] [place] [address] Kavitha Rai MD [facility] DR HEMATOLOGY [place] [address] 06/14/2024 9:45 AM EST Appointment Hematology [place] [phone] 06/14/2024 11:00 AM EST Appointment [place] [phone] Consuelo Joyce [facility] [place] [address] 06/14/2024 1:00 PM EST Office Visit Hematology and Oncology at [place] [address] Kavitha Rai MD [facility] [place] [address] 06/14/2024 2:30 PM EST Appointment Hematology and Oncology at [place] [phone] 07/05/2024 10:30 AM EDT Appointment Hematology and Oncology at [place] [address] 07/05/2024 11:30 AM EDT Office Visit Hematology and Oncology at [place] [phone] Consuelo Joyce APRN [facility] [place] [address] 07/05/2024 1:00 PM EDT Appointment Hematology and Oncology at [place] [address] 08/16/2024 9:20 AM EDT Office Visit Ophthalmology at [place] [phone] Luz Jose OD [facility] [place] [place] [address] 01/14/2025 8:30 AM EDT Office Visit Psychiatry and Behavioral Health at [place] [address] Anna Oneill, PhD [facility] [place] [address] documented as of this encounter Results * (ABNORMAL) Cancer antigen 15-3 (09/09/2022 7:19 AM EDT) [facility] Signature CA 15-3 54(H) <=25 unit/mL [facility] Comment: This result was generated using a Deepak Dequan immunoassay. ??Results obtained from other methods or manufacturers cannot be used interchangeably with this method. Blood 09/09/2022 7:19 AM EDT 09/09/2022 7:35 AM EDT Narrative Resulting Agency Comment Spec In Lab Kavitha Rai MD CHEMISTRY ORDERABLES [facility] [place] [address] * (ABNORMAL) Comprehensive metabolic panel (non-fasting) (09/09/2022 7:19 AM EDT) Glucose 118 65 - 199 mg/dL [facility] Comment:Diabetes: >=200 mg/d L plus symptoms Blood Urea Nitrogen 16 8 - 18 mg/dL [facility] Creatinine 0.99 0.70 - 1.20 mg/dL [facility] Sodium 143 135 - 145 mmol/L [facility] Potassium 4.0 3.5 - 5.0 mmol/L [facility] Comment: Please note: ??Patients with WBC >100,000 may have falsely elevated Potassium levels. ??For accurate Potassium quantification in these patients send serum separator tube (gold top) for subsequent determinations. ??Contact the Clinical Chemistry Laboratory if there are any questions. Chloride 107 98 - 107 mmol/L [facility] Carbon Dioxide 27 22 - 31 mmol/L [facility] Anion Gap 9 5 - 15 mmol/L [facility] Calcium 9.6 8.5 - 10.5 mg/dL [facility] Protein, Total 6.7 6.1 - 8.0 g/dL [facility] Albumin 4.0 3.2 - 5.2 g/dL [facility] Aspartate Aminotransferase 16 0 - 30 unit/L [facility] Alanine Aminotransferase 18 0 - 30 unit/L [facility] Alkaline Phosphatase 148(H) 35 - 105 unit/L [facility] Bilirubin, Total 0.3 0.2 - 1.3 mg/dL [facility] Est Glomerular Filtration Rate 73 >=60 mL/min/1. 73 m?? [facility] CHEMISTRY ORDERABLES [facility] [place] [address] documented in this encounter Visit Diagnoses Diagnosis Malignant neoplasm of overlapping sites of right breast in female, estrogen receptor negative documented in this encounter Administered Medications Inactive Administered Medications - up to 3 most recent administrations Medication Order MAR Action Action Date Dose Rate Site dexAMETHasone (PF) (Decadron) (10 mg/mL) injection 10 mg 10 mg, Intravenous, ONCE, 1 dose, On Yvette 09/09/22 at 0845, Administer 60 minutes prior to DOCEtaxel Given 09/09/2022 8:50 AM EDT 10 mg diphenhydrAMINE (Benadryl) capsule 50 mg 50 mg, Oral, ONCE, 1 dose, On Yvette 09/09/22 at 0845, Administer 60 minutes prior to DOCEtaxel, Routine Given 09/09/2022 8:51 AM EDT 50 mg DOCEtaxeL (Taxotere) 150 mg in sodium chloride 0.9% Non-PVC 257.5 mL infusion 150 mg (75 mg/m2/dose ? 2 m2 Order-specific BSA), Intravenous, ONCE, 1 dose, On Yvette 09/09/22 at 0945, Administer over 60 Minutes, Warning Vesicant/Irritant Medication Capping BSA at 2 m2 New Bag 09/09/2022 11:19 AM EDT 150 mg 257.5 mL/hr famotidine (Pepcid) (10 mg/mL) injection 20 mg 20 mg, Intravenous, ONCE, 1 dose, On Yvette 09/09/22 at 0845, Administer 60 minutes prior to DOCEtaxel Given 09/09/2022 8:50 AM EDT 20 mg ondansetron (Zofran) tablet 8 mg 8 mg, Oral, ONCE, 1 dose, On Yvette 09/09/22 at 0845, Administer prior to chemotherapy, Routine Given 09/09/2022 8:51 AM EDT 8 mg pegfilgrastim (Neulasta Onpro) (6 mg/0.6 mL) injection kit 6 mg 6 mg, Subcutaneous, ONCE, 1 dose, On Yvette 09/09/22 at 0845, Allow the prefilled syringe co-packaged with the on-body injector to reach room temperature at least 30 minutes prior to administration., Routine, This agent is restricted to outpatient use. Is this drug being given as an outpatient? Yes Given 09/09/2022 11:56 AM EDT 6 mg Right Arm PERTuzumab (Perjeta) 420 mg in sodium chloride 0.9% 264 mL infusion 420 mg, Intravenous, ONCE, 1 dose, On Yvette 09/09/22 at 0945, Administer over 30 Minutes, This agent is restricted to outpatient use. Is this drug being given as an outpatient? Yes New Bag 09/09/2022 10:09 AM EDT 420 mg 528 mL/hr sodium chloride 0.9% infusion 200 mL/hr, Intravenous, ONCE, 1 dose, On Yvette 09/09/22 at 0845 New Bag 09/09/2022 8:51 AM EDT 200 mL/hr 200 mL/hr TRASTuzumab-anns (Kanjinti) 670 mg in sodium chloride 0.9% 281.94 mL infusion 670 mg (rounded from 672 mg = 6 mg/kg/dose ? 112 kg Treatment plan Recorded weight), Intravenous, ONCE, 1 dose, On Yvette 09/09/22 at 0945, Administer over 30 Minutes, Incompatible in D5W, This agent is restricted to outpatient use. Is this drug being given as an outpatient? Yes New Bag 09/09/2022 9:29 AM EDT 670 mg 563.9 mL/hr documented in this encounter Care Teams Planner Scheduler Relationship Specialty Start Date End Date Ryan Betancourt MD [address] [place] [phone] PCP - General Family Medicine 07/29/22 documented as of this encounter
--- OUTSIDE RECORDS SUMMARY | 2024-06-01 20:44 | XMS_ITS | Encounter Summary ---
Author Organization [facility] Address [facility] [place] [address] Care Team Providers Care Machine Assembler Supervisor Name Role Phone Ryan Betancourt MD Primary Care Provider [phone] Encounter Details Date Type Department Care Team (Latest Contact Info) Description 10/21/2022 Travel Social History Tobacco Use Types Packs/Day [...] AM EST Hospital Encounter [place] [address] Consuelo Joyce APRN [facility] [place] [address] 06/14/2024 8:45 AM EST Appointment XRay at [address] [place] [address] Kavitha Rai MD [facility] DR HEMATOLOGY [place] [address] 06/14/2024 9:45 AM EST Appointment Hematology [place] [address] 06/14/2024 11:00 AM EST Appointment [place] [address] Consuelo Joyce APRN [facility] [place] [address] 06/14/2024 1:00 PM EST Office Visit Hematology [place] [address] Kavitha Rai MD [facility] HEMATOLOGY [place] [address] 06/14/2024 2:30 PM EST Appointment Hematology [place] [address] 07/05/2024 10:30 AM EDT Appointment Hematology and Oncology at [place] [phone] 07/05/2024 11:30 AM EDT Office Visit Hematology and Oncology at [place] [phone] Consuelo Joyce APRN [facility] [place] [address] 07/05/2024 1:00 PM EDT Appointment Hematology and Oncology at [place] [address] 08/16/2024 9:20 AM EDT Office Visit Ophthalmology at [place] [phone] Luz Jose, OD [facility] [place] [address] 01/14/2025 8:30 AM EDT Office Visit Psychiatry and Behavioral Health at [place] [address] Anna Oneill, PhD [facility] [place] [address] documented as of this encounter Visit Diagnoses Not on filedocumented in this encounter Care Teams Machine Assembler Supervisor Relationship Specialty Start Date End Date Ryan Betancourt MD [address] [place] [phone] PCP - General Family Medicine 07/29/22 documented as of this encounter
--- OUTSIDE RECORDS SUMMARY | 2024-06-01 20:44 | XMS_ITS | Encounter Summary ---
Author Organization [facility] [place] [address] Care Team Providers Care Lip Cutter And Scorer Name Role Phone Ryan Betancourt MD Primary Care Provider Reason for Visit * Treatment/Therapy Plan Authorization (Routine) - Closed Specialty Diagnoses / Procedures Referred By Ciaran lopez Referred To Contact Diagnoses Malignant neoplasm of overlapping sites of right breast in female, estrogen receptor negative Procedures TC PEGFILGRASTIM, EXCLUDES BIOSIMILAR, 0.5 MG, INJ TC DOCETAXEL, 1MG, INJECTION J9306 PERTuzumab (Perjeta) 840 mg [id number] (Kanjinti) 710 mg Kavitha Rai MD [facility] [address] HEMATOLOGY [place] [address] [facility] [address] [place] [address] Referral ID Status Reason Start Date Expiration Date Visits Re quested Visits Authorized [id number] Closed 08/05/2022 08/06/2023 1 103 Encounter Details Date Type Department Care Team (Latest Contact Info) Description 10/21/2022 7:15 AM EDT - 10/21/2022 11:59 PM EDT Hospital Encounter Hematology [place] [address] Malignant neoplasm of overlapping sites [...] Progress Notes * Day Kang RN - 10/21/2022 5:27 PM EDT Patient Name: Soy San Patient Age: 41 y.o. Birthdate: 1980 Admit date: 10/21/2022 Attending Physician: Alexia att. providers found Soy San, 41 y.o. female with diagnosis of Breast Ca is here for chemotherapy infusion of THP and OnPro. CYCLE: 4 DAY: 1 S: Pt. offers [...] clinic hours (8am-5pm Tuesday-Tuesday): pt. can call [phone] with questions or concerns. After clinic hours (5pm-8am Tuesday-Tuesday and weekends) pt can call [phone] and ask for the computer clerk/oncologist regional guide. Constant verbalized understanding of potential chemotherapy side effects and home care including but not limited to- handwashing to prevent infection, signs and symptoms of low blood counts (fever, fatigue, bleeding), to call with a fever of 100.4 or greater, any significant constipation/diarrhea, importance of nutrition and fluid intake (drinking at least 32-64 ounces of non-caffeinated beverages/day), mouth care. Constant verbalized understanding of how to take prescription medications given for home use after chemotherapy. documented in this encounter Plan of Treatment Upcoming Encounters Date Type Department Care Team (Late st Contact Info) Description 06/14/2024 8:00 AM EST Hospital Encounter Nuclear Medicine at [place] [phone] Consuelo Joyce [facility] [place] [address] 06/14/2024 8:45 AM EST Appointment XRay at [address] [place] [address] Kavitha Rai MD [facility] DR HEMATOLOGY [place] [address] 06/14/2024 9:45 AM EST Appointment Hematology [place] [address] 06/14/2024 11:00 AM EST Appointment [place] [address] Consuelo Joyce [facility] [place] [address] 06/14/2024 1:00 PM EST Office Visit Hematology [place] [address] Kavitha Rai MD [facility] DR HEMATOLOGY [place] [address] 06/14/2024 2:30 PM EST Appointment Hematology [place] [address] 07/05/2024 10:30 AM EDT Appointment Hematology [place] [address] 07/05/2024 11:30 AM EDT Office Visit Hematology [place] [address] Consuelo Joyce APRN [facility] [place] [place] [address] 07/05/2024 1:00 PM EDT Appointment Hematology and Oncology at [place] [address] 08/16/2024 9:20 AM EDT Office Visit Ophthalmology at [place] [address] Luz Jose, [facility] [place] [place] [address] 01/14/2025 8:30 AM EDT Office Visit Psychiatry and Behavioral Health at [place] [address] Anna Oneill, PhD [facility] [place] [place] [address] documented as of this encounter Visit Diagnoses Diagnosis Malignant neoplasm of overlapping sites of right breast in female, estrogen receptor negative documented in this encounter Administered Medications Inactive Administered Medications - up to 3 most recent administrations Medication Order MAR Action Action Date Dose Rate Site dexAMETHasone (PF) (Decadron) (10 mg/mL) injection 10 mg 10 mg, Intravenous, ONCE, 1 dose, On Yvette 10/21/22 at 1215, Administer 60 minutes prior to DOCEtaxel Given 10/21/2022 12:15 PM EDT 10 mg diphenhydrAMINE (Benadryl) capsule 50 mg 50 mg, Oral, ONCE, 1 dose, On Yvette 10/21/22 at 1215, Administer 60 minutes prior to DOCEtaxel, Routine Given 10/21/2022 12:37 PM EDT 50 mg DOCEtaxeL (Taxotere) 150 mg in sodium chloride 0.9% Non-PVC 257.5 mL infusion 150 mg (75 mg/m2/dose ? 2 m2 Order-specific BSA), Intravenous, ONCE, 1 dose, On Tue10/21/22 at 1315, Administer over 60 Minutes, Warning Vesicant/Irritant Medication Capping BSA at 2 m2 New Bag 10/21/2022 3:16 PM EDT 150 mg 257.5 mL/hr famotidine (Pepcid) (10 mg/mL) injection 20 mg 20 mg, Intravenous, ONCE, 1 dose, On Yvette 10/21/22 at 1215, Administer 60 minutes prior to DOCEtaxel Given 10/21/2022 12:15 PM EDT 20 mg heparin (pf) (porcine) (100 units/mL) flush 5 mL syringe 500 Units 500 Units, Intravenous, ONCE PRN, Starting on Yvette 10/21/22 at 1159, Until Tue10/22/22 at 0436, Line Care, Refer to Intravenous (IV) Procedure: Accessing Implanted Vascular Access Devices (226) procedure and/or Intravenous (IV) Job Aid: Adult Flushing & Catheter Care (1996) job aid for additional information regarding guidelines and administration., Routine Given 10/21/2022 4:23 PM EDT 500 Units ondansetron (Zofran) tablet 8 mg 8 mg, Oral, ONCE, 1 dose, On Yvette 10/21/22 at 1215, Administer prior to chemotherapy, Routine Given 10/21/2022 12:37 PM EDT 8 mg pegfilgrastim (Neulasta Onpro) (6 mg/0.6 mL) injection kit 6 mg 6 mg, Subcutaneous, ONCE, 1 dose, On Yvette 10/21/22 at 1215, Allow the prefilled syringe co-packaged with the on-body injector to reach room temperature at least 30 minutes prior to administration., Routine, This agent is restricted to outpatient use. Is this drug being given as an outpatient? Yes Given 10/21/2022 4:04 PM EDT 6 mg Right Arm PERTuzumab (Perjeta) 420 mg in sodium chloride 0.9% 264 mL infusion 420 mg, Intravenous, ONCE, 1 dose, On Yvette 10/21/22 at 1315, Administer over 30 Minutes, This agent is restricted to outpatient use. Is this drug being given as an outpatient? Yes New Bag 10/21/2022 1:12 PM EDT 420 mg 528 mL/hr sodium chloride 0.9% infusion 200 mL/hr, Intravenous, ONCE, 1 dose, On Yvette 10/21/22 at 1215 New Bag 10/21/2022 12:40 PM EDT 200 mL/hr 200 mL/hr TRASTuzumab-anns (Kanjinti) 620 mg in sodium chloride 0.9% 279.55 mL infusion 620 mg (rounded from 615 mg = 6 mg/kg/dose ? 102.5 kg Order-specific weight), Intravenous, ONCE, 1 dose, On Yvette 10/21/22 at 1315, Administer over 30 Minutes, Incompatible in D5W, This agent is restricted to outpatient use. Is this drug being given as an outpatient? Yes New Bag 10/21/2022 2:24 PM EDT 620 mg 559.1 mL/hr documented in this encounter Care Teams Lip Cutter And Scorer Relationship Specialty Start Date End Date Ryan Betancourt MD [address] [place] [phone] PCP - General Family Medicine 07/29/22 documented as of this encounter
--- OUTSIDE RECORDS SUMMARY | 2024-06-01 20:44 | XMS_ITS | Encounter Summary ---
Author Organization [facility] Address [facility] [place] [address] Care Team Providers Care Guide Name Role Phone Ryan Betancourt MD Primary Care Provider [phone] Reason for Visit * Reason Onset Date Comments Medication Refill 10/03/2022 Encounter Details Date Type Department Care Team (Late st Contact Info) Description 10/03/2022 Refill Hematology [place] [phone] Kavitha Rai MD [facility] DR HEMATOLOGY [place] [address] Social History Tobacco Use Types Packs/Day Years [...] encounter Miscellaneous Notes * Telephone Encounter - Rosana Zapata, RN - 10/04/2022 8:04 AM EDT Refills for Ondansetron 8mg Prochlorperazine 10mg Appears to be appropriate refills. Please review and sign pended order. documented in this encounter Plan of Treatment Upcoming Encounters Date Type Department Care Team (Late st Contact Info) Description 06/14/2024 8:00 AM EST Hospital Encounter [place] [phone] Consuelo Joyce APRN [facility] [place] [address] 06/14/2024 8:45 AM EST Appointment XRay at [address] [place] [phone] Kavitha Rai MD [facility] DR HEMATOLOGY [place] [address] 06/14/2024 9:45 AM EST Appointment Hematology [place] [phone] 06/14/2024 11:00 AM EST Appointment Nuclear Medicine at [place] [address] Consuelo Joyce APRN [facility] [place] [address] 06/14/2024 1:00 PM EST Office Visit Hematology and Oncology at [place] [address] Kavitha Rai MD [facility] [address] [place] [address] 06/14/2024 2:30 PM EST Appointment Hematology and Oncology at [place] [address] 07/05/2024 10:30 AM EDT Appointment Hematology and Oncology at [place] [address] 07/05/2024 11:30 AM EDT Office Visit Hematology and Oncology at [place] [address] Consuelo Joyce APRN [facility] [place] [address] 07/05/2024 1:00 PM EDT Appointment Hematology and Oncology at [place] [address] 08/16/2024 9:20 AM EDT Office Visit Ophthalmology at [place] [address] Luz Jose, [facility] [place] [address] 01/14/2025 8:30 AM EDT Office Visit Psychiatry and Behavioral Health at [place] [address] Anna Oneill, PhD [facility] [place] [address] documented as of this encounter Visit Diagnoses Not on filedocumented in this encounter Care Teams Guide Relationship Specialty Start Date End Date Ryan Betancourt MD [address] [place] [phone] PCP - General Family Medicine 07/29/22 documented as of this encounter
--- OUTSIDE RECORDS SUMMARY | 2024-06-01 20:44 | XMS_ITS | Encounter Summary ---
Author Organization [facility] [place] [address] Care Team Providers Care Flour Worker Name Role Phone Ryan Betancourt MD Primary Care Provider Encounter Details Date Type Department Care Team (Late st Contact Info) Description 10/21/2022 8:30 AM EDT Office Visit Hematology and Oncology at [facility] [place] [phone] Dian Lora PA Malignant neoplasm of overlapping sites of [...] Sign Reading Time Taken Comments Blood Pressure 113/67 10/21/2022 8:04 AM EDT Pulse 77 10/21/2022 8:04 AM EDT Temperature 36.3 ??C (97.3 ??F) 10/21/2022 8:04 AM ED T Respiratory Rate 18 10/21/2022 8:04 AM EDT Oxygen Saturation 98% 10/21/2022 8:04 AM EDT Inhaled Oxygen Concentration - - Weight 102.5 kg (225 lb 15.5 oz) 10/21/2022 8:04 AM EDT Height 162.8 cm (5' 4.09) 10/21/2022 8:04 AM ED T Body Mass Index 38.67 10/21/2022 8:04 AM EDT documented in this encounter Progress Notes * Dian Lora PA - 10/21/2022 8:30 AM EDT Soy Jaimes Mena is a 41 y.o. 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 10/21/22 Seen today prior to C4 THP, [...] After THP #1, she went to a [employer], ate half a salad. This was fine. [...] in the shower. Subsequently called [facility], seen that day. 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 Right breast: No discrete mass. Improved pinkish sq nodules @ 3 oc. Right axilla [address] was palpated on initial presentation but no longer appreciated today. Abdominal: Soft. Bowel sounds are normal. There [...] dorsal epidural disease extension between T8 and [id number] significant mass effect on thecal sac or [...] mets.Today's labs reviewed. She will proceed with C4 THP with previously reduced dose of Perjeta. Continue olanzapine, ondansetron, prochlorperazine prn. Continue oxycodone and imodium prn. Dian Lora PA-C Breast Medical Oncology [facility] [place] Pager - [phone] documented in this encounter Plan of Treatment Upcoming Encounters Date Type Department Care Team (Late st Contact Info) Description 06/14/2024 8:00 AM EST Hospital En[place] [phone] Consuelo Joyce [facility] [place] [address] 06/14/2024 8:45 AM EST Appointment XRay at [address] [place] [phone] Kavitha Rai MD [facility] DR HEMATOLOGY [place] [address] 06/14/2024 9:45 AM EST Appointment Hematology [place] [phone] 06/14/2024 11:00 AM EST Appointment [place] [phone] Consuelo Joyce [facility] [place] [address] 06/14/2024 1:00 PM EST Office Visit Hematology [place] [phone] Kavitha Rai MD [facility] DR HEMATOLOGY [place] [address] 06/14/2024 2:30 PM EST Appointment Hematology and Oncology at [place] [phone] 07/05/2024 10:30 AM EDT Appointment Hematology and Oncology at [place] [address] 07/05/2024 11:30 AM EDT Office Visit Hematology and Oncology at [place] [address] Consuelo Joyce APRN [facility] [place] [place] [address] 07/05/2024 1:00 PM EDT Appointment Hematology and Oncology at [place] [address] 08/16/2024 9:20 AM EDT Office Visit Ophthalmology at [place] [address] Luz Jose, [facility] [place] [address] 01/14/2025 8:30 AM EDT Office Visit Psychiatry and Behavioral Health at [place] [address] Anna Oneill, PhD [facility] [place] [address] documented as of this encounter Visit Diagnoses Diagnosis Malignant neoplasm of overlapping sites of breast in female, estrogen receptor negative, unspecified laterality documented in this encounter Care Teams Flour Worker Relationship Specialty Start Date End Date Ryan Betancourt MD [address] [place] [phone] PCP - General Family Medicine 07/29/22 documented as of this encounter
--- OUTSIDE RECORDS SUMMARY | 2024-06-01 20:44 | XMS_ITS | Encounter Summary ---
Author Organization [facility] [place] [address] Care Team Providers Care Ncr Operator Name Role Phone Ryan Betancourt MD Primary Care Provider [phone] Encounter Details Date Type Department Care Team (Latest Contact Info) Description 10/25/2022 10:30 AM EDT TH Visit (TeleHealth) Hematology [place] [phone] Shala Dunham, [facility] Malignant neoplasm of overlapping sites [...] as of this encounter Progress Notes * Shala Dunham, [facility] - 10/25/2022 10:30 AM EDT Oncology Clinical Pharmacist Consultation: CINV follow-up Visit Type: Telephone Subjective: Patient ID: Soy San is a 41 y.o. female diagnosed with metastatic breast cancer (ER/ME-/HER2+) who is being seen in follow-up today for chemotherapy-induced nausea and vomiting management. Allergies and Drug intolerance: Allergies Allergen Reactions Milk Containing Products (Dairy) Tegaderm [Transparent Dressings] Skin irritation/darkening with tegaderm. Use sorbaview Other [Unclassified Drug] Hives Pollen - runny nose, itchy and watery eyes Chemotherapy Regimen includes the following agents: Pertuzumab 420 mg IV every 3 weeks Trastuzumab 6 mg/kg IV every 3 weeks Docetaxel 75 mg/m2 IV every 3 weeks Current Antiemetic Regimen (Dyer & Prescriptions): Dyer Antiemetics: Decadron (dexamethasone) 10 mg IV or PO prior to chemotherapy Zofran (ondansetron) 8 mg IV or PO prior to chemotherapy Home Prescriptions: Ondansetron 8 mg orally every 8 hours as needed for nausea. Prochlorperazine 10 mg orally every 6 hours as needed for nausea. Olanzapine 5 mg PO nightly on days 1-4 CINV Assessment: Did you experience any nausea and/or vomiting during your last cycle of chemotherapy? yes If yes, when did the nausea and/or vomiting occur and how long did it last? Nausea started , taking olanzapine nightly, zofran PRN, compazine PRN Did you need to utilize any PRN antinausea medications? Yes Did you have any difficulty filling your antinausea medications? No Do you need any refills of any antinausea medications? No Do you believe your nausea is adequately controlled on your current regimen? Yes Assessment and Recommendations: Soy San is a 41 y.o. female diagnosed with metastatic breast cancer (ER/ME-/HER2+) who was seen in follow up today for chemotherapy-induced nausea and vomiting management. The patient reports their nausea is well managed on their current antiemetic regimen. The pharmacist believes the patient is stable and no additional follow- up is needed at this time. The patient wasinstructed to reach out to their primary oncology team for any refill needs related to antiemetic prescriptions moving forward. Soo was provided with the oncology pharmacist contact information should they wish to meet with a pharmacist regarding antiemetic management again in the future. At this time pharmacy will sign off on antiemetic management for this patient. Antiemetic Plan: Dyer Antiemetics: Decadron (dexamethasone) 10 mg IV or PO prior to chemotherapy Zofran (ondansetron) 8 mg IV or PO prior to chemotherapy Home Prescriptions: Ondansetron 8 mg orally every 8 hours as needed for nausea. Prochlorperazine 10 mg orally every 6 hours as needed for nausea. Olanzapine 5 mg PO nightly on days 1-4 Shala Dunham RPH 10/25/22 15 minutes were spent providing patient education. documented in this encounter Plan of Treatment Upcoming Encounters Date Type Department Care Team (Late st Contact Info) Description 06/14/2024 8:00 AM EST Hospital En[place] [address] Consuelo Joyce APRN [facility] [place] [address] 06/14/2024 8:45 AM EST Appointment XRay at [address] [place] [phone] Kavitha Rai MD [facility] [place] [address] 06/14/2024 9:45 AM EST Appointment Hematology and Oncology at [address] 06/14/2024 11:00 AM EST Appointment Nuclear Medicine at [address] Consuelo Joyce APRN [facility] [place] [address] 06/14/2024 1:00 PM EST Office Visit Hematology and Oncology at [address] Kavitha Rai MD [facility] [place] [address] 06/14/2024 2:30 PM EST Appointment Hematology and Oncology at [place] [phone] 07/05/2024 10:30 AM EDT Appointment Hematology and Oncology at [place] [address] 07/05/2024 11:30 AM EDT Office Visit Hematology and Oncology at [place] [phone] Consuelo Joyce [facility] [place] [address] 07/05/2024 1:00 PM EDT Appointment Hematology and Oncology at [place] [phone] 08/16/2024 9:20 AM EDT Office Visit Ophthalmology at [place] [address] Luz Jose OD [facility] [place] [address] 01/14/2025 8:30 AM EDT Office Visit Psychiatry [place] [address] Anna Oneill, PhD [facility] [place] [address] documented as of this encounter Visit Diagnoses Diagnosis Malignant neoplasm of overlapping sites of right breast in female, estrogen receptor negative documented in this encounter Care Teams Ncr Operator Relationship Specialty Start Date End Date Ryan Betancourt MD [address] [place] [phone] PCP - General Family Medicine 07/29/22 documented as of this encounter
--- OUTSIDE RECORDS SUMMARY | 2024-06-01 20:44 | XMS_ITS | Encounter Summary ---
Author Organization [facility] Address [place] [address] Care Team Providers Care Physician Coding Specialist Name Role Phone Ryan Betancourt MD Primary Care Provider [phone] Encounter Details Date Type Department Care Team (Latest Contact Info) Description 09/14/2022 1:00 PM EDT TH Visit (TeleHealth) Hematology [place] [phone] Anibal Samuel, [facility] Malignant neoplasm of [...] as of this encounter Progress Notes * Anibal Samuel, [facility] - 09/14/2022 1:00 PM EDT Oncology Clinical Pharmacist Consultation: CINV follow-up Visit Type: Video Subjective: Patient ID: Soy San is a 41 y.o. female diagnosed with Metastatic breast cancer ER/[place]-/HER2+ who is being seen in follow-up today for chemotherapy-induced nausea and vomiting management. Allergies and Drug intolerance: Allergies Allergen Reactions ??? Milk Containing Products (Dairy) ??? Other [Unclassified Drug] Hives Pollen - runny nose, itchy and watery eyes Chemotherapy Regimen includes the following agents: ??? Docetaxel 75 mg/m2 ??? Pertuzumab 420 mg ??? Trastuzumab 6 mg/kg ?? Current Antiemetic Regimen ([place] & Prescriptions): ??? Decadron (dexamethasone) 10 mg IV or PO prior to chemotherapy ??? Zofran (ondansetron) 8 mg IV or PO prior to chemotherapy CINV Assessment: ?? Did you experience any nausea and/or vomiting during your last cycle of chemotherapy? Yes ?? If yes, when did the nausea and/or vomiting occur and how long did it last? Worst symptoms starton Day 3, vomitting 3-4 times a night on day 3, once on day 4. ?? Did you need to utilize any PRN antinausea medications? Compazine first, but finds it doesn't last long enough. Uses zofran for more severe CINV symptoms. Has taken 2-3 total zofran since day 3. ?? Did you have any difficulty filling your antinausea medications? no ?? Do you need any refills of any antinausea medications? no ?? Do you believe your nausea is adequately controlled on your current regimen? Yes, but no not really. Improved from previous, but still has CINV to manage. Been taking compazine and zofran as needed. Can't tell if she's hungry or nauseous. Mainly takes compazine, takes zofran on Tuesday once on Tuesday. Some nausea, some diarrrhea. Not nearly as bad as previous cycle. Tuesday - Day 3 - when patient started going downhill. Most nausea started on day 3. Got up to 4 episodes of nausea on Tuesday night with vomitting and diarrhea. Tuesday got up only once throughout the night. Possible chemo rash - using the betamethasone cream to manage itching. The rash appeared mid Tuesday. Assessment and Recommendations: Soy San is a 41 y.o. female diagnosed with Metastatic breast cancer ER/[place]-/HER2+ who was seen in follow up today for chemotherapy-induced nausea and vomiting management. Additional medication changes were needed today in an effort to better control CINV. Pharmacy will continue to regularly meet with Soy San until an optimal antiemetic regimen is determined. Antiemetic Plan: ??? Soo was instructed to utilize her Ondansetron first as a PRN antiemetic and to use this scheduled at night on days 2, 3, 4. She will utilize her Prochlorperazine Prn if ondansetron found to be ineffective to manage her CINV. Pharmacy follow up appointment: 10/04 Anibal Samuel RPH 09/14/22 30 minutes were spent providing patient education. documented in this encounter Plan of Treatment Upcoming Encounters Date Type Department Care Team (Late st Contact Info) Description 06/14/2024 8:00 AM EST Hospital Encounter [place] [address] Consuelo Joyce [facility] [place] [address] 06/14/2024 8:45 AM EST Appointment XRay at [address] [place] [address] Kavitha Rai MD [facility] DR HEMATOLOGY [place] [address] 06/14/2024 9:45 AM EST Appointment Hematology and Oncology at [place] [phone] 06/14/2024 11:00 AM EST Appointment Nuclear Medicine at [place] [phone] Consuelo Joyce APRN [facility] [place] [address] 06/14/2024 1:00 PM EST Office Visit Hematology [place] [address] Kavitha Rai MD [facility] DR HEMATOLOGY [place] [address] 06/14/2024 2:30 PM EST Appointment Hematology [place] [address] 07/05/2024 10:30 AM EDT Appointment Hematology [place] [address] 07/05/2024 11:30 AM EDT Office Visit Hematology [place] [address] Consuelo Joyce APRN [facility] [place] [address] 07/05/2024 1:00 PM EDT Appointment Hematology [place] [address] 08/16/2024 9:20 AM EDT Office [place] [address] Luz Jose, OD [facility] [place] [address] 01/14/2025 8:30 AM EDT Office Visit Psychiatry [place] [phone] Anna Oneill, PhD [facility] [address] documented as of this encounter Visit Diagnoses Diagnosis Malignant neoplasm of overlapping sites of right breast in female, estrogen receptor negative documented in this encounter Care Teams Physician Coding Specialist Relationship Specialty Start Date End Date Ryan Betancourt MD [address] [place] [phone] PCP - General Family Medicine 07/29/22 documented as of this encounter
--- OUTSIDE RECORDS SUMMARY | 2024-06-01 20:44 | XMS_ITS | Encounter Summary ---
Author Organization [facility] Address [facility] [place] [address] Care Team Providers Care Fur Coat Sewer Name Role Phone Ryan Betancourt MD Primary Care Provider [phone] Encounter Details Date Type Department Care Team (Latest Contact Info) Description 09/30/2022 Travel Social History Tobacco Use Types Packs/Day [...] AM EST Hospital Encounter [place] [address] Consuelo Joyce APRN [facility] [place] [address] 06/14/2024 8:45 AM EST Appointment XRay at [address] [place] [address] Kavitha Rai MD [facility] DR [place] [address] 06/14/2024 9:45 AM EST Appointment Hematology [place] [address] 06/14/2024 11:00 AM EST Appointment [place] [address] Consuelo Joyce APRN [facility] [place] [address] 06/14/2024 1:00 PM EST Office Visit Hematology [place] [address] Kavitha Rai MD [facility] [place] [address] 06/14/2024 2:30 PM EST Appointment Hematology [place] [address] 07/05/2024 10:30 AM EDT Appointment Hematology and Oncology at [place] [phone] 07/05/2024 11:30 AM EDT Office Visit Hematology and Oncology at [place] [phone] Consuelo Joyce APRN [facility] [place] [address] 07/05/2024 1:00 PM EDT Appointment Hematology and Oncology at [place] [address] 08/16/2024 9:20 AM EDT Office Visit Ophthalmology at [place] [phone] Luz Jose, OD [facility] [place] [address] 01/14/2025 8:30 AM EDT Office Visit Psychiatry and Behavioral Health at [place] [address] Anna Oneill, PhD [facility] [place] [address] documented as of this encounter Visit Diagnoses Not on filedocumented in this encounter Care Teams Fur Coat Sewer Relationship Specialty Start Date End Date Ryan Betancourt MD [address] [place] [phone] PCP - General Family Medicine 07/29/22 documented as of this encounter
--- OUTSIDE RECORDS SUMMARY | 2024-06-01 20:44 | XMS_ITS | Encounter Summary ---
Author Organization [facility] Address [facility] [place] [address] Care Team Providers Care Rework Machine Operator Name Role Phone Ryan Betancourt MD Primary Care Provider [phone] Encounter Details Date Type Department Care Team (Latest Contact Info) Description 09/24/2022 Travel Social History Tobacco Use Types Packs/Day [...] AM EST Hospital Encounter [place] [address] Consuelo Joyce APRN [facility] [place] [address] 06/14/2024 8:45 AM EST Appointment XRay at [address] [place] [address] Kavitha Rai MD [facility] DR HEMATOLOGY [place] [address] 06/14/2024 9:45 AM EST Appointment Hematology [place] [address] 06/14/2024 11:00 AM EST Appointment [place] [address] Consuelo Joyce APRN [facility] [place] [address] 06/14/2024 1:00 PM EST Office Visit Hematology [place] [address] Kavitha Rai MD [facility] HEMATOLOGY [place] [address] 06/14/2024 2:30 PM EST Appointment Hematology [place] [address] 07/05/2024 10:30 AM EDT Appointment Hematology and Oncology at [place] [phone] 07/05/2024 11:30 AM EDT Office Visit Hematology and Oncology at [place] [phone] Consuelo Joyce APRN [facility] [place] [address] 07/05/2024 1:00 PM EDT Appointment Hematology and Oncology at [place] [address] 08/16/2024 9:20 AM EDT Office Visit Ophthalmology at [place] [phone] Luz Jose, OD [facility] [place] [address] 01/14/2025 8:30 AM EDT Office Visit Psychiatry and Behavioral Health at [place] [address] Anna Oneill, PhD [facility] [place] [address] documented as of this encounter Visit Diagnoses Not on filedocumented in this encounter Care Teams Rework Machine Operator Relationship Specialty Start Date End Date Ryan Betancourt MD [address] [place] [phone] PCP - General Family Medicine 07/29/22 documented as of this encounter
--- OUTSIDE RECORDS SUMMARY | 2024-06-01 20:44 | XMS_ITS | Encounter Summary ---
Author Organization [facility] Address [facility] [place] [address] Care Team Providers Care Grants Specialist Name Role Phone Ryan Betancourt MD Primary Care Provider [phone] Encounter Details Date Type Department Care Team (Late st Contact Info) Description 10/21/2022 8:00 AM EDT Office Visit Hematology and Oncology at [place] [phone] Anibal Samuel, [facility] Malignant neoplasm of overlapping sites of [...] this encounter Progress Notes * Anibal Samuel, [facility] - 10/21/2022 8:00 AM EDT Oncology Clinical Pharmacist Consultation: CINV follow-up Visit Type: in person Subjective: Patient ID: Soy San is a 41 y.o. female diagnosed with metastatic breast cancer (ER/[place]-/HER2+) who is being seen in follow-up today for chemotherapy-induced nausea and vomiting management. Allergies and Drug intolerance: Allergies Allergen Reactions ??? Milk Containing Products (Dairy) ??? Tegaderm [Transparent Dressings] Skin irritation/darkening with tegaderm. Use sorbaview ??? Other [Unclassified Drug] Hives Pollen - runny nose, itchy and watery eyes Chemotherapy Regimen includes the following agents: ??? Pertuzumab 420 mg IV every 3 weeks ??? Trastuzumab 6 mg/kg IV every 3 weeks ??? Docetaxel 75 mg/m2 IV every 3 weeks ?? Cycle 4 due today, 10/21/22 ?? Current Antiemetic Regimen ([place] & Prescriptions): [place] Antiemetics: ??? Decadron (dexamethasone) 10 mg IV or PO prior to chemotherapy ??? Zofran (ondansetron) 8 mg IV or PO prior to chemotherapy Home Prescriptions: ??? Ondansetron 8 mg orally every 8 hours as needed for nausea. ??? Prochlorperazine 10 mg orally every 6 hours as needed for nausea. ??? Olanzapine 5 mg PO nightly on days 1-4 CINV Assessment: ?? Did you experience any nausea and/or vomiting during your last cycle of chemotherapy? yes ?? If yes, when did the nausea and/or vomiting occur and how long did it last? Starts ~evening of day 2 and lasts until around day 5. However Soo experienced delayed nausea for a couple of weeks withthis previous cycle starting the week after her infusion. ?? Did you need to utilize any PRN antinausea medications? Yes, both compazine and zofran but she has found this to be inadequate for her delayed nausea. ?? Did you have any difficulty filling your antinausea medications? no ?? Do you need any refills of any antinausea medications? no ?? Do you believe your nausea is adequately controlled on your current regimen? no Soo reports having significant nausea with her third cycle of THP. Although she doesn't endorse emesis, she experienced significant nausea which impacted her ability to eat and had lasted almost two weeks starting a week after her infusion day. Food was a common trigger point for her nausea. Nauseahas begun starting around the evening of Tuesday and lasted through Tuesday or Tuesday per her usual course, but the delayed nausea started later that week, about a complete week following her infusion- this is new for her. Assessment and Recommendations: Soy San is a 41 y.o. female diagnosed with metastatic breast cancer (ER/[place]-/HER2+) who was seen in follow up today for chemotherapy-induced nausea and vomiting management. Additional medication changes were needed today in an effort to better control CINV. Pharmacy will continue to regularly meet with Soo until an optimal antiemetic regimen is determined. Antiemetic Plan: ??? Zyprexa (olanzapine) 5 mg PO nightly on days 1-4. She was recommended to consider extending theinterval of olanzapine use if she finds that her nausea is controlled well on days 1-4, specifically days 2-4 when her nausea begins to present. ??? Continue PRN compazine and ondansetron as currently prescribed Pharmacy follow up appointment: 10/25 delete if not applicable Anibal Samuel RPH 10/21/22 30 minutes were spent providing patient education. documented in this encounter Plan of Treatment Upcoming Encounters Date Type Department Care Team (Late st Contact Info) Description 06/14/2024 8:00 AM EST Hospital En[place] [address] Consuelo Joyce APRN [facility] [address] 06/14/2024 8:45 AM EST Appointment XRay at [address] [place] [address] Kavitha Rai MD [facility] DR HEMATOLOGY [place] [address] 06/14/2024 9:45 AM EST Appointment Hematology [place] [address] 06/14/2024 11:00 AM EST Appointment [place] [address] Consuelo Joyce [facility] [place] [address] 06/14/2024 1:00 PM EST Office Visit Hematology [place] [address] Kavitha Rai MD [facility] DR HEMATOLOGY [place] [address] 06/14/2024 2:30 PM EST Appointment Hematology [place] [address] 07/05/2024 10:30 AM EDT Appointment Hematology [place] [address] 07/05/2024 11:30 AM EDT Office Visit Hematology [place] [address] Consuelo Joyce APRN [facility] [place] [address] 07/05/2024 1:00 PM EDT Appointment Hematology and Oncology at [place] [phone] 08/16/2024 9:20 AM EDT Office Visit Ophthalmology at [place] [phone] Luz Jose, OD [facility] [place] [address] 01/14/2025 8:30 AM EDT Office Visit Psychiatry [place] [address] Anna Oneill, PhD [facility] [place] [address] documented as of this encounter Visit Diagnoses Diagnosis Malignant neoplasm of overlapping sites of right breast in female, estrogen receptor negative documented in this encounter Care Teams Grants Specialist Relationship Specialty Start Date End Date Ryan Betancourt MD [address] [place] [phone] PCP - General Family Medicine 07/29/22 documented as of this encounter
--- OUTSIDE RECORDS SUMMARY | 2024-06-01 20:44 | XMS_ITS | Encounter Summary ---
Author Organization [facility] [place] [address] Care Team Providers Care Mortgage Banker Name Role Phone Ryan Betancourt MD Primary Care Provider [phone] Reason for Visit * Reason Onset Date Comments Medication Refill 09/10/2022 Encounter Details Date Type Department Care Team (Late st Contact Info) Description 09/10/2022 Refill Hematology [place] [phone] Anastasiia Carrizales MD Social History Tobacco Use Types Packs/Day Years [...] AM EST Hospital Encounter [place] [address] Consuelo Joyce APRN [facility] [place] [address] 06/14/2024 8:45 AM EST Appointment XRay at [address] [place] [address] Kavitha Rai MD [facility] [place] [address] 06/14/2024 9:45 AM EST Appointment Hematology [place] [address] 06/14/2024 11:00 AM EST Appointment [place] [address] Consuelo Joyce APRN [facility] [place] [address] 06/14/2024 1:00 PM EST Office Visit Hematology [place] [address] Kavitha Rai MD [facility] DR [place] [address] 06/14/2024 2:30 PM EST Appointment Hematology [place] [address] 07/05/2024 10:30 AM EDT Appointment Hematology [place] [address] 07/05/2024 11:30 AM EDT Office Visit Hematology [place] [address] Consuelo Joyce APRN [facility] [place] [address] 07/05/2024 1:00 PM EDT Appointment Hematology [place] [address] 08/16/2024 9:20 AM EDT Office [place] [address] Luz Jose, [facility] [place] [address] 01/14/2025 8:30 AM EDT Office Visit Psychiatry and Behavioral Health at [place] [address] Anna Oneill, PhD [facility] [place] [address] documented as of this encounter Visit Diagnoses Not on filedocumented in this encounter Care Teams Mortgage Banker Relationship Specialty Start Date End Date Ryan Betancourt MD [address] [place] [phone] PCP - General Family Medicine 07/29/22 documented as of this encounter
--- OUTSIDE RECORDS SUMMARY | 2024-06-01 20:44 | XMS_ITS | Encounter Summary ---
[place] [address] Care Team Providers Care Business Analytics Faculty Member Name Role Phone Ryan Betancourt MD Primary Care Provider Reason for Referral * Diagnostic Test (Routine) - Closed Specialty Diagnoses / Procedures Referred By Ciaran lopez Referred To Contact Radiology Diagnoses Malignant neoplasm of right breast in female, estrogen receptor negative, unspecified site of breast Procedures MRI Brain wwo Contrast (Generic) Anastasiia Carrizales MD [facility] DR HEMATOLOGY [place] [address] [place] [address] Referral ID Status Reason Start Date Expiration Date V isits Requested Visits Authorized [id number] Closed Specialty Service Requested 08/17/2022 02/18/2024 1 1 Reason for Visit * Diagnostic Test (Routine) - Closed Specialty Diagnoses / Procedures Referred By Ciaran lopez Referred To Contact Radiology Diagnoses Malignant neoplasm of right breast in female, estrogen receptor negative, unspecified site of breast Procedures MRI Brain wwo Contrast (Generic) Anastasiia Carrizales MD [facility] DR HEMATOLOGY [place] [address] [place] [address] Referral ID Status Reason Start Date Expiration Date V isits Requested Visits Authorized [id number] Closed Specialty Service Requested 08/17/2022 02/18/2024 1 1 Encounter Details Date Type Department Care Team (Latest Contact Info) Description 09/24/2022 4:24 PM EDT - 09/24/2022 11:59 PM EDT Hospital Encounter MRI [place] [facility] [place] [phone] Kavitha Rai MD [facility] [place] [address] Malignant neoplasm of right breast in female, estrogen receptor negative, unspecified site of breast Discharge Disposition: Home [...] AM EST Hospital Encounter [place] [address] Consuelo Joyce [facility] [place] [address] 06/14/2024 8:45 AM EST Appointment XRay at [address] [place] [address] Kavitha Rai MD [facility] DR HEMATOLOGY [place] [address] 06/14/2024 9:45 AM EST Appointment Hematology [place] [address] 06/14/2024 11:00 AM EST Appointment [place] [address] Consuelo Joyce [facility] [place] [address] 06/14/2024 1:00 PM EST Office Visit Hematology [place] [address] Kavitha Rai MD [facility] DR HEMATOLOGY [place] [address] 06/14/2024 2:30 PM EST Appointment Hematology [place] [phone] 07/05/2024 10:30 AM EDT Appointment Hematology [place] [address] 07/05/2024 11:30 AM EDT Office Visit Hematology and Oncology at [place] [phone] Consuelo Joyce APRN [facility] [place] [address] 07/05/2024 1:00 PM EDT Appointment Hematology [place] [phone] 08/16/2024 9:20 AM EDT Office Visit Ophthalmology at [place] [phone] Luz Jose, CARSON [facility] [place] [address] 01/14/2025 8:30 AM EDT Office Visit Psychiatry and Behavioral Health at [place] [phone] Anna Oneill, PhD [facility] [place] [address] documented as of this encounter Procedures Procedure Name Priority Date/Time Associated Diagnosis Comments MRI BRAIN WWO CONTRAST (GENERIC) Routine 09/24/2022 6:05 PM EDT Malignant neoplasm of right breast in female, estrogen receptor negative, unspecified site of breast documented in this encounter Results * MRI Brain wwo Contrast (Generic) (09/24/2022 6:05 PM EDT) Anatomical Region Laterality Modality Head Magnetic Resonan ce Impressions 09/24/2022 7:36 PM EDT No intracranial metastatic disease. Possible small osseous lesion of the inferior clivus. Thank you for letting us participate in the care of this patient. ??If you are a health care provider and have any questions regarding this report, please contact the number below. ??For patients who have questions please contact the health customer care consultant that requested your imaging first. ? Electronically signed by: Simone Barth MD, [facility] ([phone]), at 09/24/2022 7:36 PM Narrative 09/24/2022 7:36 PM EDT EXAMINATION: MRI BRAIN WWO CONTRAST (GENERIC) CLINICAL HISTORY: breast cancer, evaluate for metastatic disease 41yo F with IDC HEr2+, likely metastatic disease. New PLUMBER CUB change TECHNIQUE: MRI of the brain was performed before and after the intravenous administration of 21cc Dotarem. COMPARISON: None FINDINGS: The ventricles are normal in size and contour. There is no intracranial mass, mass effect, or shift. There is no abnormal enhancement. Major intracranial flow voids are normal. There are no abnormal blood products. Posterior fossa and craniocervical junction are normal. Skull base, and pituitary appear normal. There is a small area of marrow signal alteration at the inferior clivus on the left. No other focal marrow lesion identified. Procedure Note Simone Barth MD - 09/24/2022 EXAMINATION: MRI BRAIN WWO CONTRAST (GENERIC) CLINICAL HISTORY: breast cancer, evaluate for metastatic disease 41yo F with IDC HEr2+, likely metastatic disease. New PLUMBER CUB change TECHNIQUE: MRI of the brain was performed before and after the intravenousadministration of 21cc Dotarem. COMPARISON: None FINDINGS: The ventricles are normal in size and contour. There is no intracranialmass, mass effect, or shift. There is no abnormal enhancement. Majorintracranial flow voids are normal. There are no abnormal blood products. Posterior fossaand craniocervical junction are normal. Skull base, and pituitary appearnormal. There is a small area of marrow signal alteration at the inferior clivuson the left. No other focal marrow lesion identified. IMPRESSION No intracranial metastatic disease. Possible small osseous lesion of the inferior clivus. Thank you for letting us participate in the care of this patient. If youare a health care provider and have any questions regarding this report,please contact the number below. For patients who have questions please contactthe health customer care consultant that requested your imaging first. Electronically signed by: Simone Barth MD, [facility]([phone]), at 09/24/2022 7:36 PM Kavitha Rai MD IMG MRI ORDERABLES documented [...] Intravenous, ONCE PRN, 1 dose, Starting on Tue09/24/22 at 1722, Until Tue09/24/22 at 1750, Per Protocol, Radiology Contrast, Routine Given 09/24/2022 5:50 PM EDT 21 mLs documented in this encounter Care Teams Business Analytics Faculty Member Relationship Specialty Start Date End Date Ryan Betancourt MD [address] [place] [phone] PCP - General Family Medicine 07/29/22 documented as of this encounter
--- OUTSIDE RECORDS SUMMARY | 2024-06-01 20:44 | XMS_ITS | Encounter Summary ---
[place] [address] Care Team Providers Care Beater Room Supervisor Name Role Phone Ryan Betancourt MD Primary Care Provider [phone] Encounter Details Date Type Department Care Team (Latest Contact Info) Description 09/30/2022 7:37 AM EDT - 09/30/2022 11:59 PM EDT Hospital Encounter Hematology [place] [phone] Malignant neoplasm of overlapping sites of right [...] Progress Notes * Fabi Gilbert RN - 09/30/2022 8:06 AM EDT Patient Name: Soy San Patient Age: 41 y.o. Birthdate: 1980 Admit date: 09/30/2022 Attending Physician: No att. providers found Access visit. See MAR and/or flowsheet. documented in this encounter Miscellaneous Notes * Addendum Note - Fabi Gilbert RN - 09/30/2022 8:20 AM EDTEncounter addended by: Fabi Gilbert RN on: 09/30/2022 8:20 AM Actions taken: Flowsheet accepted * Addendum Note - Fabi Gilbert RN - 09/30/2022 8:09 AM EDTEncounter addended by: Fabi Gilbert RN on: 09/30/2022 8:09 AM Actions taken: Allergies modified documented in this encounter Plan of Treatment Upcoming Encounters Date Type Department Care Team (Late st Contact Info) Description 06/14/2024 8:00 AM EST Hospital Encounter Nuclear Medicine at [place] [phone] Consuelo Joyce [facility] [place] [address] 06/14/2024 8:45 AM EST Appointment XRay at [address] [place] [address] Kavitha Rai MD [facility] DR [place] [address] 06/14/2024 9:45 AM EST Appointment Hematology [place] [address] 06/14/2024 11:00 AM EST Appointment [place] [address] Consuelo Joyce [facility] [place] [address] 06/14/2024 1:00 PM EST Office Visit Hematology [place] [address] Kavitha Rai MD [facility] DR [place]EM[place] [address] 06/14/2024 2:30 PM EST Appointment Hematology [place] [phone] 07/05/2024 10:30 AM EDT Appointment Hematology and Oncology at [place] [phone] 07/05/2024 11:30 AM EDT Office Visit Hematology and Oncology at [place] [phone] Consuelo Joyce APRN [facility] [place] [address] 07/05/2024 1:00 PM EDT Appointment Hematology [place] [address] 08/16/2024 9:20 AM EDT Office Visit Ophthalmology at [place] [phone] Luz Jose, CARSON [facility] [place] [address] 01/14/2025 8:30 AM EDT Office Visit Psychiatry and Behavioral Health at [place] [phone] Anna Oneill, PhD [facility] [place] [address] documented as of this encounter Procedures Procedure Name Priority Date/Time Associated Diagnosis Comments HEMOGRAM STAT 09/30/2022 8:00 AM EDT Malignant neoplasm of overlapping sites of right breast in female, estrogen receptor negative DIFFERENTIAL, AUTOMATED STAT 09/30/2022 8:00 AM EDT Malignant neoplasm of overlapping sites of right breast in female, estrogen receptor negative CANCER ANTIGEN 15-3 STAT 09/30/2022 8 :00 AM EDT Malignant neoplasm of overlapping sites of right breast in female, estrogen receptor negative CBC (WITH DIFF) STAT 09/30/2022 8:00 AM EDT Malignant neoplasm of overlapping sites of right breast in female, estrogen receptor negative CEA Routine 09/30/2022 8:00 AM EDT Malignant neoplasm of overlapping sites of right breast in female, estrogen receptor negative COMPREHENSIVE METABOLIC PANEL STAT 09/30/2022 8:00 AM EDT Malignant neoplasm of overlapping sites of right breast in female, estrogen receptor negative documented in this encounter Results * Differential, Automated (09/30/2022 8:00 AM EDT) Neutrophil % 64.6 % [facility] Neutrophil Absolute 3.12 1.70 - 6.10 x10(3)/[facility] Lymph % 26.1 % [facility] Lymphocytes Abs 1.3 0.9 - 3.2 x10(3)/[facility] Monocyte % 7.7 % [facility] Monocyte Abs 0.4 0.3 - 0.9 x10(3)/[facility] Eos % 0.8 % [facility] Eosinophils Abs 0.0 0.0 - 0.4 x10(3)/[facility] Basophil % 0.6 % [facility] Baso Absolute 0.0 0.0 - 0.1 x10(3)/[facility] Immature Gran % 0.20 % [facility] Comment: Immature granulocytes(IG's)percentage and absolute count will include metamyelocytes, myelocytes, and promyelocytes. Blood smears from CBCs yielding IG's will be scanned manually for concordance. If this scan disagrees with the automated IG or if promyelocytes are noted, a manual differential will be performed. Immature Gran Absolute 0.01 0.00 - 0.04 x10(3)/[facility] Blood 09/30/2022 8:00 AM EDT 09/30/2022 8:15 AM EDT Narrative Resulting Agency Comment Spec In Lab Kavitha Rai MD HEMATOLOGY ORDERABLE S [facility] [place] [address] * (ABNORMAL) Hemogram (09/30/2022 8:00 AM EDT) White Blood Cell 4.8 4.0 - 9.5 x10(3)/mc L [facility] Red Blood Cell 4.61 4.00 - 5.21 x10(6)/mc L [facility] Hemoglobin 13.0 11.7 - 15.5 g/dL [facility] Hematocrit 38.9 35.7 - 45.8 % [facility] Mean Cell Volume 84.4 82.6 - 94.4 fL [facility] Mean Cell Hemoglobin 28.2 27.1 - 32.0 pg [facility] Mean Cell Hemoglobin Concentration 33.4 31.7 - 35.0 g/dL [facility] Platelet 266 145 - 357 x10(3)/mc L [facility] RDW Standard Deviation 44.8 37.0 - 46.0 fL [facility] RDW coefficient of variation 14.9(H) 11.5 - 14.1 % [facility] Mean Platelet Volume 10.8 7.6 - 12.9 fL [facility] NRBC% auto 0.0 % [facility] NRBC Absolute 0.000 0.000 - 0.000 x10(3)/ L [facility] Blood 09/30/2022 8:00 AM EDT 09/30/2022 8:15 AM EDT Narrative Resulting Agency Comment Spec In Lab Kavitha Rai MD HEMATOLOGY ORDERABLE S [facility] [place] [address] * (ABNORMAL) Comprehensive metabolic panel (non-fasting) (09/30/2022 8:00 AM EDT) Glucose 128 65 - 199 mg/dL [facility] Comment:Diabetes: >=200 mg/d L plus symptoms Blood Urea Nitrogen 12 8 - 18 mg/dL [facility] Creatinine 0.78 0.70 - 1.20 mg/dL [facility] Sodium 140 135 - 145 mmol/L [facility] Potassium 3.6 3.5 - 5.0 mmol/L [facility] Comment: Please note: ??Patients with WBC >100,000 may have falsely elevated Potassium levels. ??For accurate Potassium quantification in these patients send serum separator tube (gold top) for subsequent determinations. ??Contact the Clinical Chemistry Laboratory if there are any questions. Chloride 105 98 - 107 mmol/L [facility] Carbon Dioxide 23 22 - 31 mmol/L [facility] Anion Gap 12 5 - 15 mmol/L [facility] Calcium 9.2 8.5 - 10.5 mg/dL [facility] Protein, Total 6.6 6.1 - 8.0 g/dL [facility] Albumin 4.0 3.2 - 5.2 g/dL [facility] Aspartate Aminotransferase 21 0 - 30 unit/L [facility] Alanine Aminotransferase 30 0 - 30 unit/L [facility] Alkaline Phosphatase 111(H) 35 - 105 unit/L [facility] Bilirubin, Total 0.5 0.2 - 1.3 mg/dL [facility] Est Glomerular Filtration Rate 97 >=60 mL/min/1. 73 m?? [facility] Comment: This patient's estimated GFR [...] In Lab Kavitha Rai MD CHEMISTRY ORDERABLES [facility] [place] [address] * (ABNORMAL) Cancer antigen 15-3 (09/30/2022 8:00 AM EDT) CA 15-3 48(H) <=25 unit/mL [facility] Comment: This result was generated using a Deepak Dequan immunoassay. ??Results obtained from other methods or manufacturers cannot be used interchangeably with this method. Blood 09/30/2022 8:00 AM EDT 09/30/2022 8:15 AM EDT Narrative Resulting Agency Comment Spec In Lab Kavitha Rai MD CHEMISTRY ORDERABLES [facility] [place] [address] * CEA (09/30/2022 8:00 AM EDT) Carcinoembryonic Antigen 3.5 <=3.8 ng/mL [facility] Comment: Reference range: ??(20-69 years): [...] In Lab Kavitha Rai MD CHEMISTRY ORDERABLES [facility] [place] [address] documented in this encounter Visit Diagnoses Diagnosis Malignant neoplasm of overlapping sites of right breast in female, estrogen receptor negative documented in this encounter Care Teams Beater Room Supervisor Relationship Specialty Start Date End Date Ryan Betancourt MD [address] [place] [phone] PCP - General Family Medicine 07/29/22 documented as of this encounter
--- OUTSIDE RECORDS SUMMARY | 2024-06-01 20:44 | XMS_ITS | Encounter Summary ---
[place] [address] Care Team Providers Care Academic Guidance Specialist Name Role Phone Ryan Betancourt MD Primary Care Provider [phone] Reason for Referral * Diagnostic Test (Routine) - Closed Specialty Diagnoses / Procedures Referred By Contac t Referred To Contact Radiology Diagnoses Malignant neoplasm of overlapping sites of right breast in female, estrogen receptor negative Procedures IR Mediport Placement Kierra Buenrostro PA [facility] [place] [address] [facility] [place] [address] Referral ID Status Reason Start Date Expiration Date V isits Requested Visits Authorized [id number] Closed Specialty Service Requested 09/01/2022 03/04/2024 1 1 * Diagnostic Test (Routine) - Closed Specialty Diagnoses / Procedures Referred By Contac t Referred To Contact Radiology Diagnoses Malignant neoplasm of overlapping sites of right breast in female, estrogen receptor negative Procedures IR Mediport Removal Kierra Buenrostro PA [facility] [place] [address] [facility] [place] [address] Referral ID Status Reason Start Date Expiration Date V isits Requested Visits Authorized [id number] Closed Specialty Service Requested 09/01/2022 03/04/2024 1 1 Reason for Visit * Diagnostic Test (Routine) - Closed Specialty Diagnoses / Procedures Referred By Ciaran t Referred To Contact Radiology Diagnoses Malignant neoplasm of overlapping sites of right breast in female, estrogen receptor negative Procedures IR Mediport Placement TaftKierra PA [facility] [address] [place] [address] [facility] [place] [address] Referral ID Status Reason Start Date Expiration Date V isits Requested Visits Authorized [id number] Closed Specialty Service Requested 09/01/2022 03/04/2024 1 1 Encounter Details Date Type Department Care Team (Latest Contact Info) Description 09/10/2022 6:42 AM EDT - 09/10/2022 11:59 PM EDT Hospital [place] [address] Ryan Dumont MD [facility] [place] [address] Malignant neoplasm of overlapping sites of right breast in female, estrogen receptor negative Discharge Disposition: Home Social History Tobacco Use Types Packs/Day Years Used Date Smoking Tobacco: Former Cigarettes 0.3 1 1 6 - 1996 Smokeless Tobacco: Former Tobacco Cessation:Counseling [...] Sign Reading Time Taken Comments Blood Pressure 137/71 09/10/2022 10:30 AM EDT Pulse 76 09/10/2022 10:05 AM EDT Temperature 36.4 ??C (97.6 ??F) 09/10/2022 10:12 AM E DT Respiratory Rate 20 09/10/2022 10:30 AM EDT Oxygen Saturation 95% 09/10/2022 10:30 AM EDT Inhaled Oxygen Concentration - - Weight - - Height - - Body Mass Index - - documented in this encounter Discharge Instructions * Discharge Instructions* Marvin Celeste RN - 09/10/2022 7:17 AM EDT Department of Vascular and Interventional Radiology Discharge Instructions for your Chest Port You have received a ???Power Port?? , which provides access for infusions and blood draws. What makes this a ???Power Port?? is the unique ability to ???power inject?? contrast (intravenous dye) through the port when getting a CT scan, which produces superior images (pictures). Patients who don???t have these special ports need to have an IV started if they need dye injected for their CT scan. Your port is printed with the letters ???CT?? which can be detected by x- ray to identify it as a ???Power Port?? . You will be provided with an ID card stating the paper cone machine operator and type of port you have. Please carry this with you in a safe place. Bandage: There is a sterile dressing over the port site consisting of small gauze with a clear dressing (Tegaderm or [id number] ). This dressing should be left in place for 48 hours. If the clear dressing becomes loose you should place tape over the edges to secure it in place. Note: If you have steri-strips beneath your dressing, simply allow them to fall off. Do not peel them off. There may be [place] (skin glue) also, allow this to flake off. Pain: Apply ice bag to site (s) at 30 minute intervals (30 minutes on and 30 minutes off) for 24 hours?? . May use as needed for pain and/or bruising after 24 hours. Bathing: Do not take a shower until 48 hours after your port is placed; after this time you may shower with the dressing in place, then remove it and pat your skin dry. After 48 hours, we recommend that you cover the area with THE AQUA GUARD PROVIDED for 1 week while showering, facing away from theshower stream. You may use a bandaid to cover the site after the 48 hours are up if there is any drainage. No tub baths, whirlpools or swimming for one week following port placement. Flushing the mediport: If your port has not been used, it must be flushed every 30 days. What to expect when your port is accessed: 1. You may feel tenderness the first few times it is accessed but generally this subsides over time. Ask your healthcare provider to use a local anesthetic on the site if discomfort is a problem for you. You may ask for a prescription for a topical cream (EMLA) from your clinician; you may apply athome prior to your appointments, to help numb the skin over your port. 2. The clinician should be wearing sterile gloves and a mask during the access procedure. Anyone inthe room with you should also have a mask on. 3. The skin over and 2 inches around the port should be cleaned with a disinfectant 4. Tell the clinician if you would like the skin numbed (lidocaine) before the access needle is placed. 5. Unless you are unable to take heparin (blood thinner), the port should be injected with a heparin solution before deaccess (at end of each treatment or blood draw). When to call your healthcare provider: If you notice bleeding from the puncture site in your neck, or from the port incision on your chest, you should apply firm pressure over the site for 10-15 minutes, keeping the site covered. Call if you are still bleeding after 10-15 minutes. If you develop pain, redness, drainage or swelling at or around the port site, or the puncture sitein the neck If you develop fever (elevation of more than 2 degrees or greater than 101F) and/or shaking chills Revised 02/01/19 [facility] Vascular and Interventional Radiology Discharge Instructions for your Chest Port Removal Activity: Relax for the next 24 hours Diet: Drink plenty of fluids. Resume your regular diet Bandage: There is a sterile dressing consisting of small gauze with a clear dressing (Tegaderm or IV 3000). This dressing should be left in place for 48 hours. If the clear dressing becomes loose youshould place tape over the edges to secure it in place. No tub baths, swimming or whirlpools for 1 week. No showering for 48 hours. Note: If you have steri-strips beneath your dressing, simply allow them to fall off. Do not peel them off. There may be [place]ov[place] (skin glue) also, allow this to flake off. Do not pick this off. Bathing: Do not take a shower until 48 hours after your port is removed; after this time you may shower with the dressing in place, then remove it and pat your skin dry. After 48 hours, we recommend that you cover the area with THE AQUA GUARD PROVIDED for 1 week while showering, facing away from the shower stream. You may use a bandaid to cover the site after the 48 hours are up if there is any drainage. No tub baths, whirlpools or swimming for one week following port removal. Pain: Apply ice bag to site (s) at 30 minute intervals (30 minutes on and 30 minutes off) for 24 hours?? . May use as needed for pain and/or bruising after 24 hours. When to call your healthcare provider: If you notice bleeding from the incision on your chest, you should lie flat and apply firm pressureover the site for 10-15 minutes, keeping the site covered and call your doctor. If you are still bleeding after 10-15 minutes, reapply pressure, and have someone drive you to the nearest Emergency Department, or call 911. If you develop pain, redness, drainage or swelling at or around chest incision site. If you develop a fever equal to or greater than 101 degrees Fahrenheit. When to call the Interventional Radiology Department: Please call with any questions or concerns. If it is during regular office hours, please call [phone]. If it is after regular office hours, or on weekends or holidays, please call [phone] and ask to speak to the Web Content Specialist combination welder apprentice for Interventional Radiology. XXX You have received medication during your procedure to help lessen anxiety and keep you comfortable. These medications affect judgement and reaction time. We recommend that you do not drive, operate equipment, sign any important documents, or smoke unattended for 24 hours following your procedure. Because of the sedation, be careful on stairs, as you may be unsteady on your feet. You may resume your regular diet as tolerated. IV site -- slight redness, or tenderness is normal, you can use a warm compress. If tenderness and redness increases or foul drainage occurs, please contact your M. D. Revised 02/01/19 documented in this encounter Medications at Time [...] as of this encounter Progress Notes * Marvin Celeste RN - 09/10/2022 9:36 AM EDT [facility] DATAB[facility] Name: Soy San Date of : 1980 AGE: 41 y.o. Address: [address] [place] [id number] (home) [phone] (work) Mobile: Telephone Information: Referring Provider: Kierra Buenrostro REASON FOR VISIT: Order Questions Answers Where will study be performed? [facility] Radiology [120] Reason for exam and clinical history: Mediport that is rotated - revision required Is the patient ? No Is the patient on anticoagulant / antiplatelet therapy ? No Planned procedure: Mediport revision/replacement Labs to be performed day of procedure: No labs Sedation: Moderate (Conscious sedation) Prophylactic antibiotic : None Contrast: No contrast Additional medications for procedure: Lidocaine Planned access site: right chest/IJ Position: Supine Consent: Pending Medications to discontinue (and days held): None Case Urgency:: G2- Elective Outpatient intervention within 8-14 days Allergies Allergen Reactions ??? Milk Containing Products (Dairy) ??? Other [Unclassified Drug] Hives Pollen - runny nose, itchy and watery eyes Pertinent PMH: Patient Active Problem List Diagnosis Code ??? Malignant neoplasm of overlapping sites of breast in female, estrogen receptor negative C50.819, Z17.1 Date/Procedure Meds Given/Comments 08/12/2022 Mediport Placement, Sensitive to pain, periods of apnea throughout procedure, VS normal.?? Fentanyl 250 mcg IV, Versed 5 mg IV ??09/01/22 CT guided liver biopsy ??fentanyl 125 mcg, versed 2.5 mg ??09/10/22 Mediport Placement, Left Chest and Port Removal, Right chest ??Fentanyl 150mcg/IV, [id number]/IV. Verbalized she is nervous. Very conversant after initial doses of sedation meds. Sensitive to pain with lidocaine injection. ? 8536 to procedure room IR4 via stretcher. Onto table supine. All monitors, O2, safety strap in place. Meds per protocol. Laboratory Results: Lab Results Component Value Date INR 1.1 09/01/2022 Lab Results Component Value Date CREATININE 1.00 08/19/2022 Lab Results Component Value Date K 3.7 08/19/2022 Lab Results Component Value Date PLATELET 193 09/01/2022 documented in this encounter H&P Notes * Kierra Buenrostro PA - 09/10/2022 7:11 AM EDT INTERVENTIONAL RADIOLOGY FOCUSED H&P: Procedure: Mediport revision / possible new port placement Update to H&P: The patient's history and physical exam have been reviewed and completed. There has been NO interval change from that of the pre-procedural note done within the last 30 days. There is NO change in the procedural plan. Physical Exam: Cardiovascular: Regular, Normal Pulmonary: Breath sounds clear to auscultation Meds: Current medications reviewed. No medications held. Labs: No new relevant labs. The planned procedure (and sedation plan if appropriate) , its benefits and risks, and alternativeswere discussed with the patient. The patient consented to the procedure. PRE-SEDATION ASSESSMENT: Sedation Plan: moderate (conscious sedation) ASA: 2: Patient with mild systemic disease Mallampati: I: soft palate, fauces, tonsillar pillars and uvula can be seen Confirm NPO status: Yes History of anesthetic complications: No Current medications reviewed: Yes Allergies reviewed: Yes Source Note - Kierra Buenrostro PA - 09/01/2022 4:02 PM EDT Images from the original note were not included. Interventional Radiology Focused Pre-procedure H&P: PCP: Ryan Betancourt MD Referring Provider: Kierra Buenrostro Planned procedure: Mediport revision/replacement Procedure indication: Painful port access, rotated port IR workflow: Procedure request received through Interventional Radiology eDH order queue. Order Questions Answers Where will study be performed? [facility] Radiology [120] Is the patient on anticoagulant / antiplatelet therapy ? No Reason for exam and clinical history: Breast cancer s/p right sided port placement 08/12, accessed once 08/19 successfully but now with extreme pain with access on 09/01 for liver biopsy,Assess mediport Is the patient ? Unknown History of Present Illness: Per chart review, Soy San is a 41 y.o. female with PMH of breast cancer with likely liver metastases who is status post right sided Mediport placement ( IR 08/12/22) who presents to Interventional Radiology to undergo port revision/possible replacement. Patient underwent liver mass biopsy on 09/01 and when port was accessed she was in extreme pain. Previously accessed earlier on 08/19 without difficulty. She underwent fluoro examination which revealed rotated port that requires revision/replacement. Remainder of patient's medical and surgical history, allergies, medications, and social/family history obtained below as previously outlined in patient's medical record. IR History: ?? Date/Procedure Meds Given/Comments 08/12/2022 Mediport Placement, Sensitive to pain, periods of apnea throughout procedure, VS normal.?? Fentanyl 250 mcg IV, Versed 5 mg IV ??09/01/22 CT guided liver biopsy ??fentanyl 125 mcg, versed 2.5 mg Anticoagulation/Antiplatelet: None listed Labs: Lab Results Component Value Date HGB 13.4 09/01/2022 HCT 40.0 09/01/2022 WBC 9.0 09/01/2022 PLATELET 193 09/01/2022 INR 1.1 09/01/2022 BUN 16 08/19/2022 CREATININE 1.00 08/19/2022 ALBUMIN 3.9 08/19/2022 BILITOT 0.4 08/19/2022 AST 31 (H) 08/19/2022 ALT 44 (H) 08/19/2022 ALKPHOS 136 (H) 08/19/2022 Allergies: Milk containing products and Other [unclassified drug] Imaging: Exam under fluoro 09/01 Assessment: 41 y.o. female with breast cancer and rotated Mediport presenting to Interventional Radiology for port revision/replacement. Case Discussed with IR Attending, Dr. Jamison Plan Planned procedure: Mediport revision/replacement Labs to be performed day of procedure: No labs Sedation: Moderate (Conscious sedation) Prophylactic antibiotic : None Contrast: No contrast Additional medications for procedure: Lidocaine Planned access site: right chest/IJ Position: Supine Consent: Pending Medications to discontinue (and days held): None Cytopathology presence needed: No Case Urgency:: G2- Elective Outpatient intervention within 8-14 days Medications: Current Outpatient Medications on File Prior to Encounter Medication Sig Dispense Refill ??? multivitamin Capsule Take 1 capsule by mouth daily. ??? betamethasone dipropionate (Diprolene) 0.05 % Cream Apply topically 2 times daily. 30 g 0 ??? ondansetron (Zofran) 8 mg tablet Take 1 tablet by mouth every 8 hours as needed for Nausea. 30 tablet 3 ??? oxyCODONE-acetaminophen (Percocet) 5-325 mg tablet Take 1 tablet by mouth every 4 hours as needed for Pain. 90 tablet 0 ??? prochlorperazine (Compazine) 10 mg tablet Take 1 tablet by mouth every 6 hours as needed for Nausea. 30 tablet 3 Current Facility-Administered Medications on File Prior to Encounter Medication Dose Route Frequency Provider Last Rate Last Admin ??? sodium chloride 0.9 % (flush) (BD PosiFlush Normal Saline 0.9) flush 5 mL 5 mL Intravenous BID TaftKierra PA ??? sodium chloride 0.9 % (flush) (BD PosiFlush Normal Saline 0.9) flush 5-20 mL 5-20 mL Intravenous Q1 Min PRN Kierra Buenrostro PA ??? lidocaine (Xylocaine) 1% (10 mg/mL) injection 3 mg 0.3 mL Subcutaneous Once PRN TaftKierra PA ??? sodium chloride 0.9 % (flush) (BD PosiFlush Normal Saline 0.9) flush 10 mL 10 mL Intravenous Daily PRN TaftKierra PA ??? fentaNYL (pf) (50 mcg/mL) multi-dose injection 25-50 mcg 25-50 mcg Intravenous Q3 Min PRN Kierra Buenrostro PA 25 mcg at 09/01/22 0849 ??? flumazeniL (Romazicon) (0.1 mg/mL) injection 0.2 mg 0.2 mg Intravenous Q2 Min PRN TaftKierra PA ??? naloxone (NARCAN) injection 1 mg/mL 0.1 mg 0.1 mg Intravenous Q2 Min PRN TaftKierra PA ??? [COMPLETED] lidocaine (Xylocaine) 1% (10 mg/mL) injection 10 mg 10 mg Subcutaneous Once Kierra Buenrostro PA 10 mg at 09/01/22 0840 ??? midazolam (pf) (Versed) (1 mg/mL) multi-dose injection 0.5-1 mg 0.5-1 mg Intravenous Q3 Min PRKierra Mckinney PA 0.5 mg at 09/01/22 0850 ??? iohexoL (Omnipaque) (350 mg/mL) solution 1-400 mL 1-400 mL Other Once Kierra Buenrostro PA Past Medical/Surgical history: Patient Active Problem List Diagnosis Code ??? Malignant neoplasm of overlapping sites of breast in female, estrogen receptor negative C50.819, Z17.1 No past medical history on file. Past Surgical History: Procedure Laterality Date ??? CT GUIDED LIVER BIOPSY 09/01/2022 CT Guided Biopsy Liver 09/01/2022 Ryan Dumont MD [facility] RAD CT SCAN ??? IR BIOPSY LIVER PERCUTANEOUS 08/12/2022 IR Biopsy Liver Percutaneous 08/12/2022 Ryan Dumont MD [facility] INTERVENTIONL RAD ??? IR MEDIPORT PLACEMENT 08/12/2022 IR Mediport Placement 08/12/2022 Ryan Dumont MD [facility] INTERVENTIONL RAD ??? MAMMO US BIOPSY LYMPH NODE RIGHT Right 07/06/2022 Mammo US Biopsy Lymph Node Right 07/06/2022 Akhil Fregoso MD [facility] RAD MAMMOGRAPHY ??? MAMMO US BIOPSY RIGHT Right 07/06/2022 Mammo Us Biopsy Right 07/06/2022 Akhil Fregoso MD [facility] RAD MAMMOGRAPHY Social History and Habits: Social History Tobacco Use ??? Smoking status: Former Packs/day: 0.25 Years: 1.00 Pack years: 0.25 Types: Cigarettes Quit date: 1996 Years since quittin.3 ??? Smokeless tobacco: Former Vaping Use ??? Vaping Use: Never used Substance Use Topics ??? Alcohol use: Not Currently Alcohol/week: 4.0 standard drinks Types: 2 Cans of beer, 2 Shots of liquor per week Comment: drinks 2x a month ??? Drug use: Yes Types: Marijuana Significant Family History: Family History Problem Relation [...] Cancer Other Pertinent ROS: as per HPI Physical Exam: Pending (to be performed in IR the day of procedure) ASA: Pending (to be assessed in IR the day of procedure) Mallampati class: Pending (to be assessed in IR the day of procedure) 09/01/2022 Kierra Buenrostro PA-C documented in this encounter Miscellaneous Notes * Brief Op Note - Glen Moreno MD - 09/10/2022 10:04 AM EDT INTERVENTIONAL RADIOLOGY BRIEF PROCEDURE NOTE Patient Name: Soy San : 1980 Case Date: 09/10/2022 Operators: Attending: Josh Resident/Fellow/Student: none Post-operative diagnosis/Indication: breast cancer, malposition of indwelling right chest port Brief description of the procedure: LIJV access Placement of LEFT chest port Removal of RIGHT chest port Findings of the procedure: New chest port with catheter in RA Unchanged malposition/rotation of right chest port as on recent eval EBL: <10 mL Specimens: _N/A_ Complications: No immediate Plan/Disposition: Transfer to IR recovery in stable condition then discharge home FULL PROCEDURE NOTE TO FOLLOW IN IMAGE REPORT documented in this encounter Plan of Treatment Upcoming Encounters Date Type Department Care Team (Late st Contact Info) Description 06/14/2024 8:00 AM EST Hospital Encounter [place] [address] Consuelo Joyce APRN [facility] [place] [address] 06/14/2024 8:45 AM EST Appointment XRay at [address] [place] [address] Kavitha Rai MD [facility] DR HEMATOLOGY [place] [address] 06/14/2024 9:45 AM EST Appointment Hematology and Oncology at [address] 06/14/2024 11:00 AM EST Appointment Nuclear Medicine at [place] [address] Consuelo Joyce [facility] [place] [address] 06/14/2024 1:00 PM EST Office Visit Hematology and Oncology at [place] [phone] Kavitha Rai MD [facility] [place] [address] 06/14/2024 2:30 PM EST Appointment Hematology [place] [address] 07/05/2024 10:30 AM EDT Appointment Hematology and Oncology at [place] [phone] 07/05/2024 11:30 AM EDT Office Visit Hematology [place] [address] Consuelo Joyce [facility] [place] [address] 07/05/2024 1:00 PM EDT Appointment Hematology [place] [address] 08/16/2024 9:20 AM EDT Office [place] [address] Luz Jose, CARSON [facility] [place] [address] 01/14/2025 8:30 AM EDT Office Visit Psychiatry [place] [phone] Anna Oneill, PhD [facility] [place] [address] documented as of this encounter Procedures Procedure Name Priority Date/Time Associated Diagnosis Comments IR MEDIPORT PLACEMENT Routine 09/10/2022 10:11 AM EDT Malignant neoplasm of overlapping sites of right breast in female, estrogen receptor negative IR MEDIPORT REMOVAL Routine 09/10/2022 1 0:11 AM EDT Malignant neoplasm of overlapping sites of right breast in female, estrogen receptor negative documented in this encounter Results * IR Mediport Placement (09/10/2022 10:11 AM EDT) Anatomical Region Laterality Modality X-Ray Angiograph y Impressions 09/10/2022 6:26 PM EDT Insertion of left-sided power-injectable single-lumen tunneled chest port, with catheter tip in the expected location of the right atrium. Removal of right-sided tunneled venous chest port. Plan: The port may be used immediately. PROCEDURE SUMMARY: - Venous access with ultrasound guidance - Tunneled port insertion under fluoroscopic guidance - Additional procedure(s): Venous port removal Pre-procedure Consent: Informed consent for the procedure including risks, benefits and alternatives was obtained and time-out was performed prior to the procedure. Preparation (MIPS): The site was prepared and draped using all elements of maximal sterile barrier technique including sterile gloves, sterile gown, cap, mask, large sterile sheet, sterile ultrasound probe cover, hand hygiene and cutaneous antisepsis with 2% chlorhexidine. Medical reason for site preparation exception (MIPS): Not applicable Anesthesia/sedation Level of anesthesia/sedation: Moderate sedation (conscious sedation) Anesthesia/sedation administered by: Independent trained observer under attending supervision with continuous monitoring of the patients level of consciousness and physiologic status Total intra-service sedation time (minutes): see emr Access Local anesthesia was administered. The vessel was sonographically evaluated and determined to be patent. Real time ultrasound was used to visualize needle entry into the vessel and a permanent image was stored. Vein accessed: Internal jugular vein Access technique: Micropuncture set with 21 gauge needle Port placement-LEFT Chest An incision was made at the upper chest, a pocket was created, and the catheter was tunneled subcutaneously to the venous access site and trimmed to appropriate length. The port was inserted into the pocket and the catheter was advanced via a peel-away sheath into the vein under fluoroscopic guidance. The port was sutured into the pocket using absorbable suture. Catheter tip location was fluoroscopically verified and a permanent image was stored. Port placed: Profuse Catheter size (English): 8 Catheter flush: Heparin (100 units/mL) Closure The access site and incision were closed and sterile dressing(s) were applied. Access site closure technique: Tissue adhesive Incision closure technique: Absorbable suture and tissue adhesive Patient discharged from procedure suite with device accessed: No Port removal- RIGHT Chest Local anesthesia was administered. An incision was made at the site of the indwelling port. The port was exposed with a combination of sharp and blunt dissection. The port and catheter were removed in their entirety. Closure The incision was closed and a sterile dressing was applied. Incision closure technique: Absorbable suture and tissue adhesive Contrast Contrast agent: None Contrast volume (mL): 0 Radiation Dose Fluoroscopy time (minutes): 1.05 Reference air kerma (mGy): 23.9 Kerma area product (uGy-m2): 707.2 Additional Details Additional description of procedure: None Equipment details: None Specimens removed: None Estimated blood loss (mL): Less than 10 Standardized report: [email or web address] Attestation Signer name: Glen Moreno MD I attest that I was present for the entire procedure. I reviewed the stored images and agree with the report as written. Sedation attestation: I was present during the intra-service time as documented by IR nurse. Thank you for letting us participate in the care of this patient. ??If you are a health care provider and have any questions regarding this report, please contact the number below. ??For patients who have questions please contact the health clinical care coordinator that requested your imaging first. ? Electronically signed by: Glen Moreno MD, [facility] ([phone]), at 09/10/2022 6:26 PM Narrative 09/10/2022 6:26 PM EDT PROCEDURE: Venous port placement, Venous port removal Procedural Personnel Attending physician(s): Glen Moreno MD Fellow physician(s): None Resident physician(s): None Advanced practice provider(s): None Pre-procedure diagnosis: Breast cancer, malfunctioning of indwelling port Post-procedure diagnosis: Same Indication: Administration of chemotherapy, malfunction of indwelling port Additional clinical history: 41-year-old female with breast cancer status post RIGHT chest port placement on 08/12/2022. Initial access of port without complication however at time of subsequent liver biopsy, there numerous severe pain with attempts at port access. Subsequent fluoroscopic port evaluation on 09/01/2022 show the port to be malpositioned and rotated medially Complications: No immediate complications. Procedure Note Glen Moreno MD - 09/10/2022 PROCEDURE: Venous port placement, Venous port removal Procedural Personnel Attending physician(s): Glen Moreno MD Fellow physician(s): None Resident physician(s): None Advanced practice provider(s): None Pre-procedure diagnosis: Breast cancer, malfunctioning of indwellingport Post-procedure diagnosis: Same Indication: Administration of chemotherapy, malfunction of indwellingport Additional clinical history: 41-year-old female with breast cancer statuspost RIGHT chest port placement on 08/12/2022. Initial access of port without complication however at time of subsequent liver biopsy, there numeroussevere pain with attempts at port access. Subsequent fluoroscopic port evaluationon 09/01/2022 show the port to be malpositioned and rotated medially Complications: No immediate complications. IMPRESSION Insertion of left-sided power-injectable single-lumen tunneled chest port,with catheter tip in the expected location of the right atrium. Removal of right-sided tunneled venous chest port. Plan: The port may be used immediately. PROCEDURE SUMMARY: - Venous access with ultrasound guidance - Tunneled port insertion under fluoroscopic guidance - Additional procedure(s): Venous port removal Pre-procedure Consent: Informed consent for the procedure including risks, benefitsand alternatives was obtained and time-out was performed prior to theprocedure. Preparation (MIPS): The site was prepared and draped using all elementsof maximal sterile barrier technique including sterile gloves, sterile gown,cap, mask, large sterile sheet, sterile ultrasound probe cover, hand hygieneand cutaneous antisepsis with 2% chlorhexidine. Medical reason for site preparation exception (MIPS): Not applicable Anesthesia/sedation Level of anesthesia/sedation: Moderate sedation (conscious sedation) Anesthesia/sedation administered by: Independent trained observer under attending supervision with continuous monitoring of the patients levelof consciousness and physiologic status Total intra-service sedation time (minutes): see emr Access Local anesthesia was administered. The vessel was sonographicallyevaluated and determined to be patent. Real time ultrasound was used to visualize needleentry into the vessel and a permanent image was stored. Vein accessed: Internal jugular vein Access technique: Micropuncture set with 21 gauge needle Port placement-LEFT Chest An incision was made at the upper chest, a pocket was created, and thecatheter was tunneled subcutaneously to the venous access site and trimmed toappropriate length. The port was inserted into the pocket and the catheter wasadvanced via a peel-away sheath into the vein under fluoroscopic guidance. The portwas sutured into the pocket using absorbable suture. Catheter tip locationwas fluoroscopically verified and a permanent image was stored. Port placed: Profuse Catheter size (English): 8 Catheter flush: Heparin (100 units/mL) Closure The access site and incision were closed and sterile dressing(s) wereapplied. Access site closure technique: Tissue adhesive Incision closure technique: Absorbable suture and tissue adhesive Patient discharged from procedure suite with device accessed: No Port removal- RIGHT Chest Local anesthesia was administered. An incision was made at the site ofthe indwelling port. The port was exposed with a combination of sharp andblunt dissection. The port and catheter were removed in their entirety. Closure The incision was closed and a sterile dressing was applied. Incision closure technique: Absorbable suture and tissue adhesive Contrast Contrast agent: None Contrast volume (mL): 0 Radiation Dose Fluoroscopy time (minutes): 1.05 Reference air kerma (mGy): 23.9 Kerma area product (uGy-m2): 707.2 Additional Details Additional description of procedure: None Equipment details: None Specimens removed: None Estimated blood loss (mL): Less than 10 Standardized report: [email or web address] Attestation Signer name: Glen Moreno MD I attest that I was present for the entire procedure. I reviewed thestored images and agree with the report as written. Sedation attestation: I was present during the intra-service time asdocumented by IR nurse. Thank you for letting us participate in the care of this patient. If youare a health care provider and have any questions regarding this report,please contact the number below. For patients who have questions please contactthe health clinical care coordinator that requested your imaging first. Electronically signed by: Glen Moreno MD, [facility]([phone]), at 09/10/2022 6:26 PM Ryan Dumont MD IMG IR ORDERABLES * IR Mediport Removal (09/10/2022 10:11 AM EDT) Anatomical Region Laterality Modality X-Ray Angiograph y Impressions 09/10/2022 6:26 PM EDT Insertion of left-sided power-injectable single-lumen tunneled chest port, with catheter tip in the expected location of the right atrium. Removal of right-sided tunneled venous chest port. Plan: The port may be used immediately. PROCEDURE SUMMARY: - Venous access with ultrasound guidance - Tunneled port insertion under fluoroscopic guidance - Additional procedure(s): Venous port removal Pre-procedure Consent: Informed consent for the procedure including risks, benefits and alternatives was obtained and time-out was performed prior to the procedure. Preparation (MIPS): The site was prepared and draped using all elements of maximal sterile barrier technique including sterile gloves, sterile gown, cap, mask, large sterile sheet, sterile ultrasound probe cover, hand hygiene and cutaneous antisepsis with 2% chlorhexidine. Medical reason for site preparation exception (MIPS): Not applicable Anesthesia/sedation Level of anesthesia/sedation: Moderate sedation (conscious sedation) Anesthesia/sedation administered by: Independent trained observer under attending supervision with continuous monitoring of the patients level of consciousness and physiologic status Total intra-service sedation time (minutes): see emr Access Local anesthesia was administered. The vessel was sonographically evaluated and determined to be patent. Real time ultrasound was used to visualize needle entry into the vessel and a permanent image was stored. Vein accessed: Internal jugular vein Access technique: Micropuncture set with 21 gauge needle Port placement-LEFT Chest An incision was made at the upper chest, a pocket was created, and the catheter was tunneled subcutaneously to the venous access site and trimmed to appropriate length. The port was inserted into the pocket and the catheter was advanced via a peel-away sheath into the vein under fluoroscopic guidance. The port was sutured into the pocket using absorbable suture. Catheter tip location was fluoroscopically verified and a permanent image was stored. Port placed: Profuse Catheter size (English): 8 Catheter flush: Heparin (100 units/mL) Closure The access site and incision were closed and sterile dressing(s) were applied. Access site closure technique: Tissue adhesive Incision closure technique: Absorbable suture and tissue adhesive Patient discharged from procedure suite with device accessed: No Port removal- RIGHT Chest Local anesthesia was administered. An incision was made at the site of the indwelling port. The port was exposed with a combination of sharp and blunt dissection. The port and catheter were removed in their entirety. Closure The incision was closed and a sterile dressing was applied. Incision closure technique: Absorbable suture and tissue adhesive Contrast Contrast agent: None Contrast volume (mL): 0 Radiation Dose Fluoroscopy time (minutes): 1.05 Reference air kerma (mGy): 23.9 Kerma area product (uGy-m2): 707.2 Additional Details Additional description of procedure: None Equipment details: None Specimens removed: None Estimated blood loss (mL): Less than 10 Standardized report: [email or web address] Attestation Signer name: Glen Moreno MD I attest that I was present for the entire procedure. I reviewed the stored images and agree with the report as written. Sedation attestation: I was present during the intra-service time as documented by IR nurse. Thank you for letting us participate in the care of this patient. ??If you are a health care provider and have any questions regarding this report, please contact the number below. ??For patients who have questions please contact the health clinical care coordinator that requested your imaging first. ? Electronically signed by: Glen Moreno MD, [facility] ([phone]), at 09/10/2022 6:26 PM Narrative 09/10/2022 6:26 PM EDT PROCEDURE: Venous port placement, Venous port removal Procedural Personnel Attending physician(s): Glen Moreno MD Fellow physician(s): None Resident physician(s): None Advanced practice provider(s): None Pre-procedure diagnosis: Breast cancer, malfunctioning of indwelling port Post-procedure diagnosis: Same Indication: Administration of chemotherapy, malfunction of indwelling port Additional clinical history: 41-year-old female with breast cancer status post RIGHT chest port placement on 08/12/2022. Initial access of port without complication however at time of subsequent liver biopsy, there numerous severe pain with attempts at port access. Subsequent fluoroscopic port evaluation on 09/01/2022 show the port to be malpositioned and rotated medially Complications: No immediate complications. Procedure Note Glen Moreno MD - 09/10/2022 PROCEDURE: Venous port placement, Venous port removal Procedural Personnel Attending physician(s): Glen Moreno MD Fellow physician(s): None Resident physician(s): None Advanced practice provider(s): None Pre-procedure diagnosis: Breast cancer, malfunctioning of indwellingport Post-procedure diagnosis: Same Indication: Administration of chemotherapy, malfunction of indwellingport Additional clinical history: 41-year-old female with breast cancer statuspost RIGHT chest port placement on 08/12/2022. Initial access of port without complication however at time of subsequent liver biopsy, there numeroussevere pain with attempts at port access. Subsequent fluoroscopic port evaluationon 09/01/2022 show the port to be malpositioned and rotated medially Complications: No immediate complications. IMPRESSION Insertion of left-sided power-injectable single-lumen tunneled chest port,with catheter tip in the expected location of the right atrium. Removal of right-sided tunneled venous chest port. Plan: The port may be used immediately. PROCEDURE SUMMARY: - Venous access with ultrasound guidance - Tunneled port insertion under fluoroscopic guidance - Additional procedure(s): Venous port removal Pre-procedure Consent: Informed consent for the procedure including risks, benefitsand alternatives was obtained and time-out was performed prior to theprocedure. Preparation (MIPS): The site was prepared and draped using all elementsof maximal sterile barrier technique including sterile gloves, sterile gown,cap, mask, large sterile sheet, sterile ultrasound probe cover, hand hygieneand cutaneous antisepsis with 2% chlorhexidine. Medical reason for site preparation exception (MIPS): Not applicable Anesthesia/sedation Level of anesthesia/sedation: Moderate sedation (conscious sedation) Anesthesia/sedation administered by: Independent trained observer under attending supervision with continuous monitoring of the patients levelof consciousness and physiologic status Total intra-service sedation time (minutes): see emr Access Local anesthesia was administered. The vessel was sonographicallyevaluated and determined to be patent. Real time ultrasound was used to visualize needleentry into the vessel and a permanent image was stored. Vein accessed: Internal jugular vein Access technique: Micropuncture set with 21 gauge needle Port placement-LEFT Chest An incision was made at the upper chest, a pocket was created, and thecatheter was tunneled subcutaneously to the venous access site and trimmed toappropriate length. The port was inserted into the pocket and the catheter wasadvanced via a peel-away sheath into the vein under fluoroscopic guidance. The portwas sutured into the pocket using absorbable suture. Catheter tip locationwas fluoroscopically verified and a permanent image was stored. Port placed: Profuse Catheter size (English): 8 Catheter flush: Heparin (100 units/mL) Closure The access site and incision were closed and sterile dressing(s) wereapplied. Access site closure technique: Tissue adhesive Incision closure technique: Absorbable suture and tissue adhesive Patient discharged from procedure suite with device accessed: No Port removal- RIGHT Chest Local anesthesia was administered. An incision was made at the site ofthe indwelling port. The port was exposed with a combination of sharp andblunt dissection. The port and catheter were removed in their entirety. Closure The incision was closed and a sterile dressing was applied. Incision closure technique: Absorbable suture and tissue adhesive Contrast Contrast agent: None Contrast volume (mL): 0 Radiation Dose Fluoroscopy time (minutes): 1.05 Reference air kerma (mGy): 23.9 Kerma area product (uGy-m2): 707.2 Additional Details Additional description of procedure: None Equipment details: None Specimens removed: None Estimated blood loss (mL): Less than 10 Standardized report: [email or web address] Attestation Signer name: Glen Moreno MD I attest that I was present for the entire procedure. I reviewed thestored images and agree with the report as written. Sedation attestation: I was present during the intra-service time asdocumented by IR nurse. Thank you for letting us participate in the care of this patient. If youare a health care provider and have any questions regarding this report,please contact the number below. For patients who have questions please contactthe health clinical care coordinator that requested your imaging first. Electronically signed by: Glen Moreno MD, [facility]([phone]), at 09/10/2022 6:26 PM Ryan Dumont MD [facility] IR ORDERABLES documented in this encounter Visit Diagnoses Diagnosis Malignant neoplasm of overlapping sites of right breast in female, estrogen receptor negative documented in this encounter Administered Medications Inactive Administered Medications - up to 3 most recent administrations Medication Order MAR Action Action Date Dose Rate Site fentaNYL (pf) (50 mcg/mL) multi-dose injection 25-50 mcg 25-50 mcg, Intravenous, EVERY 3 MIN PRN, Starting on Tue09/10/22 at 0656, Until Tue09/10/22 at 1042, Pain, per unit protocol, For use in [...] Maximum dose: 50 mcg/dose, 250 mcg/hour, Angio/IR (Day of Procedure), Routine Given 09/10/2022 9:42 AM EDT 25 mcg Given 09/10/2022 8:47 AM EDT 25 mcg Given 09/10/2022 8:32 AM EDT 25 mcg lidocaine (Xylocaine) 1% (10 mg/mL) injection 10 mg 10 mg, Subcutaneous, ONCE, 1 dose, On Tue09/10/22 at 0715, For use in Interventional Radiology (IR) only for procedure with direct provider supervision and verbal order., Angio/IR (Day of Procedure), Routine Given 09/10/2022 8:31 AM EDT 10 mg midazolam (pf) (Versed) (1 mg/mL) multi-dose injection 0.5-1 mg 0.5-1 mg, Intravenous, EVERY 3 MIN PRN, Starting on Tue09/10/22 at 0656, Until Tue09/10/22 at 1042, Sedation, For use in Interventional Radiology (IR) only for procedural sedation with direct provider supervision and verbal order. - Start dose: 1 mg (Reduce dose to 0.5 mg if history of sedation sensitivity). - Titration dose: 0.5 mg - 1 mg (based on patient response) every 3 minutes PRN to obtain RASS score of -3. Maximum dose: 1 mg/dose, 5 mg/hour., Angio/IR (Day of Procedure), Routine Given 09/10/2022 9:42 AM EDT 0.5 mg Given 09/10/2022 8:47 AM EDT 0.5 mg Given 09/10/2022 8:32 AM EDT 0.5 mg documented in this encounter Care Teams Academic Guidance Specialist Relationship Specialty Start Date End Date Ryan Betancourt MD [address] [place] [phone] PCP - General Family Medicine 07/29/22 documented as of this encounter
--- OUTSIDE RECORDS SUMMARY | 2024-06-01 20:44 | XMS_ITS | Encounter Summary ---
Author Organization [facility] [place] [address] Care Team Providers Care Ocean Export Agent Name Role Phone Ryan Betancourt MD Primary Care Provider [phone] Encounter Details Date Type Department Care Team (Late st Contact Info) Description 09/28/2022 Orders Only Hematology and Oncology at [facility] [place] [phone] Dian Lora PA Social History Tobacco Use [...] AM EST Hospital Encounter Nuclear Medicine at [place] [phone] Consuelo Joyce [facility] [place] [address] 06/14/2024 8:45 AM EST Appointment XRay at [address] [place] [phone] Kavitha Rai MD [facility] [address] [place] [address] 06/14/2024 9:45 AM EST Appointment Hematology [place] [phone] 06/14/2024 11:00 AM EST Appointment [place] [phone] Consuelo Joyce [facility] [place] [address] 06/14/2024 1:00 PM EST Office Visit Hematology [place] [phone] Kavitha Rai MD [facility] [address] [place] [address] 06/14/2024 2:30 PM EST Appointment Hematology and Oncology at [place] [address] 07/05/2024 10:30 AM EDT Appointment Hematology and Oncology at [place] [phone] 07/05/2024 11:30 AM EDT Office Visit Hematology and Oncology at [place] [address] Consuelo Joyce APRN [facility] [place] [address] 07/05/2024 1:00 PM EDT Appointment Hematology and Oncology at [place] [address] 08/16/2024 9:20 AM EDT Office Visit Ophthalmology at [place] [address] Luz Jose, [facility] [place] [address] 01/14/2025 8:30 AM EDT Office Visit Psychiatry and Behavioral Health at [place] [address] Anna Oneill, PhD [facility] [place] [address] documented as of this encounter Visit Diagnoses Not on filedocumented in this encounter Care Teams Ocean Export Agent Relationship Specialty Start Date End Date Ryan Betancourt MD [address] [place] [phone] PCP - General Family Medicine 07/29/22 documented as of this encounter
--- OUTSIDE RECORDS SUMMARY | 2024-06-01 20:44 | XMS_ITS | Encounter Summary ---
Author Organization [facility] Address [facility] [place] [address] Care Team Providers Care Printing Screen Assembler Name Role Phone Ryan Betancourt MD Primary Care Provider [phone] Reason for Visit * Reason Onset Date Comments Medication Refill 09/10/2022 Encounter Details Date Type Department Care Team (Late st Contact Info) Description 09/10/2022 Refill Hematology [place] [phone] Kavitha Rai MD [facility] [address] [place] [address] Social History Tobacco Use Types Packs/Day Years [...] AM EST Hospital Encounter [place] [phone] Consuelo Joyce [facility] [address] 06/14/2024 8:45 AM EST Appointment XRay at [address] [place] [phone] Kavitha Rai MD [facility] DR [place] [address] 06/14/2024 9:45 AM EST Appointment Hematology [place] [phone] 06/14/2024 11:00 AM EST Appointment [place] [phone] Consuelo Joyce [facility] [address] 06/14/2024 1:00 PM EST Office Visit Hematology and Oncology at [place] [phone] Kavitha Rai MD [facility] DR HEMATOLOGY [place] [address] 06/14/2024 2:30 PM EST Appointment Hematology and Oncology at [place] [phone] 07/05/2024 10:30 AM EDT Appointment Hematology and Oncology at [place] [address] 07/05/2024 11:30 AM EDT Office Visit Hematology [place] [phone] Consuelo Joyce APRN [facility] [place] [address] 07/05/2024 1:00 PM EDT Appointment Hematology and Oncology at [place] [phone] 08/16/2024 9:20 AM EDT Office Visit Ophthalmology at [place] [address] Luz Jose, [facility] [place] [address] 01/14/2025 8:30 AM EDT Office Visit Psychiatry and Behavioral Health at [place] [phone] Anna Oneill, PhD [facility] [place] [address] documented as of this encounter Visit Diagnoses Not on filedocumented in this encounter Care Teams Printing Screen Assembler Relationship Specialty Start Date End Date Ryan Betancourt MD [address] [place] [phone] PCP - General Family Medicine 07/29/22 documented as of this encounter
--- OUTSIDE RECORDS SUMMARY | 2024-06-01 20:44 | XMS_ITS | Encounter Summary ---
Author Organization [facility] Address [facility] [place] [address] Care Team Providers Care Wastewater Treatment Plant Attendant Name Role Phone Ryan Betancourt MD Primary Care Provider [phone] Encounter Details Date Type Department Care Team (Late st Contact Info) Description 09/23/2022 Orders Only Hematology [place] [address] Kavitha Rai MD [facility] [address] HEMATOLOGY [place] [address] Social History Tobacco Use Types Packs/Day Years [...] AM EST Hospital Encounter [place] [address] Consuelo Joyce [facility] [place] [address] 06/14/2024 8:45 AM EST Appointment XRay at [address] [place] [address] Kavitha Rai MD [facility] [address] HEMATOLOGY [place] [address] 06/14/2024 9:45 AM EST Appointment Hematology [place] [address] 06/14/2024 11:00 AM EST Appointment [place] [address] Consuelo Joyce [facility] [place] [address] 06/14/2024 1:00 PM EST Office Visit Hematology [place] [address] Kavitha Rai MD [facility] [address] [place] [address] 06/14/2024 2:30 PM EST Appointment Hematology and Oncology at [place] [phone] 07/05/2024 10:30 AM EDT Appointment Hematology and Oncology at [place] [address] 07/05/2024 11:30 AM EDT Office Visit Hematology and Oncology at [place] [phone] Consuelo Joyce APRN [facility] [place] [address] 07/05/2024 1:00 PM EDT Appointment Hematology and Oncology at [place] [phone] 08/16/2024 9:20 AM EDT Office Visit Ophthalmology at [place] [address] Luz Jose, [facility] [place] [address] 01/14/2025 8:30 AM EDT Office Visit Psychiatry and Behavioral Health at [place] [phone] Anna Oneill, PhD [facility] [place] [address] documented as of this encounter Visit Diagnoses Not on filedocumented in this encounter Care Teams Wastewater Treatment Plant Attendant Relationship Specialty Start Date End Date Ryan Betancourt MD [address] [place] [phone] PCP - General Family Medicine 07/29/22 documented as of this encounter
--- OUTSIDE RECORDS SUMMARY | 2024-06-01 20:44 | XMS_ITS | Encounter Summary ---
Author Organization [facility] Address [facility] [place] [address] Care Team Providers Care Automobile And Property Underwriter Name Role Phone Ryan Betancourt MD Primary Care Provider [phone] Encounter Details Date Type Department Care Team (Latest Contact Info) Description 10/04/2022 11:00 AM EDT TH Visit (TeleHealth) [place]ology [place] [phone] Lilly Camacho, [facility] Malignant neoplasm of overlapping sites of right [...] as of this encounter Progress Notes * Lilly Camacho, [facility] - 10/04/2022 11:00 AM EDT Oncology Clinical Pharmacist Consultation: CINV follow-up Visit Type: Video Visit Subjective: Patient ID: Soy San is a 41 y.o. female diagnosed with metastatic breast cancer (ER/[place]-/HER2+) who is being seen in follow-up today [...] Docetaxel 75 mg/m2 IV every 3 weeks Cycle 3 given on 09/30/22 Current Antiemetic Regimen (Ravalli & Prescriptions): Ravalli Antiemetics: Decadron (dexamethasone) 10 mg IV or PO prior to chemotherapy Zofran (ondansetron) 8 mg IV or PO prior to chemotherapy Home Prescriptions: Ondansetron 8 mg orally every 8 hours as needed for nausea. Prochlorperazine 10 mg orally every 6 hours as needed for nausea. CINV Assessment: Did you experience any nausea and/or vomiting during your last cycle of chemotherapy? Yes If yes, when did the nausea and/or vomiting occur and how long did it last? Nausea and vomiting started on Day 3 (Tuesday) after chemotherapy and lasted through today. She isfeeling better today with some mild nausea. She vomited bile early this morning but was able to keep for breakfast down and is feeling better. Did you need to utilize any PRN antinausea medications? Yes. Soo took ondansetron about twice daily through the weekend. She took two tablets of prochlorperazine on Tuesday as well. She thinks that ondansetron is more effective for her compared to prochlorperazine. Did you have any difficulty filling your antinausea medications? No Do you need any refills of any antinausea medications? Yes. She sent a message on the portal and Dian refilled both ondansetron and prochlorperazine today. Do you believe your nausea is adequately controlled on your current regimen? No. Nausea is much better today and mostly controlled but through the weekend she had uncontrolled nausea and vomiting. She states that her nausea sometimes feels like acid reflux. Other: Loose stools/Constipation: Soo reports that on Tuesday and Tuesday she was very constipated. She took 2 tablets of a children's laxative with good effect and has not had an issue since. She thinks her constipation was multifactorial and not just related to ondansetron. Besides that one episode of constipation, she had some loose stools through the weekend which she attributes it to be related to consuming a mostly liquid diet all weekend to help with nausea. She states that she would not classify it as diarrhea. She has loperamide on hand as needed. Assessment and Recommendations: Soy San is a 41 y.o. female diagnosed with metastatic breast cancer (ER/[place]-/HER2+) who was seen in follow up today for chemotherapy-induced nausea and vomiting management. Pharmacy will continue to regularly meet with Soo until an optimal antiemetic regimen is determined. Antiemetic Plan: Start olanzapine 5 mg nightly on Nights 1 through 4 starting with next cycle. Soo is not interested in trying palonosetron in place of ondansetron since she wants to be in control of when she can take ondansetron. Pharmacy follow up appointment: 10/21/2022 @ 0800 Lilly Camacho RPH 10/04/22 30 minutes were spent providing patient education. documented in this encounter Plan of Treatment Upcoming Encounters Date Type Department Care Team (Late st Contact Info) Description 06/14/2024 8:00 AM EST Hospital Encounter Nuclear Medicine at [place] [phone] [facility] [place] [address] 06/14/2024 8:45 AM EST Appointment XRay at [address] [place] [address] Kavitha Rai MD [facility] DR HEMATOLOGY [place] [address] 06/14/2024 9:45 AM EST Appointment Hematology [place] [address] 06/14/2024 11:00 AM EST Appointment [place] [address] [facility] [place] [address] 06/14/2024 1:00 PM EST Office Visit Hematology [place] [address] Kavitha Rai MD [facility] DR HEMATOLOGY [place] [address] 06/14/2024 2:30 PM EST Appointment Hematology [place] [address] 07/05/2024 10:30 AM EDT Appointment Hematology [place] [address] 07/05/2024 11:30 AM EDT Office Visit [place]ematology [place] [address] Consuelo Joyce APRN [facility] [place] [address] 07/05/2024 1:00 PM EDT Appointment Hematology and Oncology at [place] [phone] 08/16/2024 9:20 AM EDT Office Visit Ophthalmology at [address] Luz Jose, OD [facility] [place] [address] 01/14/2025 8:30 AM EDT Office Visit Psychiatry and Behavioral Health at [place] [address] Anna Oneill, PhD [facility] [place] [address] documented as of this encounter Visit Diagnoses Diagnosis Malignant neoplasm of overlapping sites of right breast in female, estrogen receptor negative documented in this encounter Care Teams Automobile And Property Underwriter Relationship Specialty Start Date End Date Ryan Betancourt MD [address] [place] [phone] PCP - General Family Medicine 07/29/22 documented as of this encounter
--- OUTSIDE RECORDS SUMMARY | 2024-06-01 20:44 | XMS_ITS | Encounter Summary ---
Author Organization [facility] Address [facility] [place] [address] Care Team Providers Care Occupational Health Specialist Name Role Phone Ryan Betancourt MD Primary Care Provider [phone] Encounter Details Date Type Department Care Team (Latest Contact Info) Description 09/09/2022 Travel Social History Tobacco Use Types Packs/Day [...] AM EST Hospital Encounter [place] [address] Consuelo Joyce APRN [facility] [place] [address] 06/14/2024 8:45 AM EST Appointment XRay at [address] [place] [address] Kavitha Rai MD [facility] DR [place] [address] 06/14/2024 9:45 AM EST Appointment Hematology [place] [address] 06/14/2024 11:00 AM EST Appointment [place] [address] Consuelo Joyce APRN [facility] [place] [address] 06/14/2024 1:00 PM EST Office Visit Hematology [place] [address] Kavitha Rai MD [facility] [place] [address] 06/14/2024 2:30 PM EST Appointment Hematology [place] [address] 07/05/2024 10:30 AM EDT Appointment Hematology and Oncology at [place] [phone] 07/05/2024 11:30 AM EDT Office Visit Hematology and Oncology at [place] [phone] Consuelo Joyce APRN [facility] [place] [address] 07/05/2024 1:00 PM EDT Appointment Hematology and Oncology at [place] [address] 08/16/2024 9:20 AM EDT Office Visit Ophthalmology at [place] [phone] Luz Jose, OD [facility] [place] [address] 01/14/2025 8:30 AM EDT Office Visit Psychiatry and Behavioral Health at [place] [address] Anna Oneill, PhD [facility] [place] [address] documented as of this encounter Visit Diagnoses Not on filedocumented in this encounter Care Teams Occupational Health Specialist Relationship Specialty Start Date End Date Ryan Betancourt MD [address] [place] [phone] PCP - General Family Medicine 07/29/22 documented as of this encounter
--- OUTSIDE RECORDS SUMMARY | 2024-06-01 20:44 | XMS_ITS | Encounter Summary ---
Author Organization [facility] [place] [address] Care Team Providers Care Bender Machine Name Role Phone Ryan Betancourt MD Primary Care Provider [phone] Encounter Details Date Type Department Care Team (Latest Contact Info) Description 09/09/2022 7:00 AM EDT - 09/09/2022 11:59 PM EDT Hospital Encounter Hematology [place] [phone] Discharge Disposition: Home Social History Tobacco Use [...] AM EST Hospital En[place] [phone] Consuelo Joyce APRN [facility] [place] [address] 06/14/2024 8:45 AM EST Appointment XRay at [address] [place] [phone] Kavitha Rai MD [facility] [place] [address] 06/14/2024 9:45 AM EST Appointment Hematology and Oncology at [place] [address] 06/14/2024 11:00 AM EST Appointment Nuclear Medicine at [address]1000 Consuelo Joyce APRN [facility] [place] [address] 06/14/2024 1:00 PM EST Office Visit Hematology and Oncology at [address]1000 Kavitha Rai MD [facility] [place] [address] 06/14/2024 2:30 PM EST Appointment Hematology and Oncology at [place] [phone] 07/05/2024 10:30 AM EDT Appointment Hematology and Oncology at [place] [address] 07/05/2024 11:30 AM EDT Office Visit Hematology and Oncology at [place] [phone] Consuelo Joyce [facility] [place] [address] 07/05/2024 1:00 PM EDT Appointment Hematology and Oncology at [place] [phone] 08/16/2024 9:20 AM EDT Office Visit Ophthalmology at [place] [phone] Luz Jose OD [facility] [place] [address] 01/14/2025 8:30 AM EDT Office Visit Psychiatry [place] [address] Anna Oneill, PhD [facility] [place] [address] documented as of this encounter Visit Diagnoses Not on filedocumented in this encounter Care Teams Bender Machine Relationship Specialty Start Date End Date Ryan Betancourt MD [address] [place] [phone] PCP - General Family Medicine 07/29/22 documented as of this encounter
--- OUTSIDE RECORDS SUMMARY | 2024-06-01 20:44 | XMS_ITS | Encounter Summary ---
Author Organization [facility] Address [facility] [place] [address] Care Team Providers Care Flat Ironer Name Role Phone Ryan Betancourt MD Primary Care Provider [phone] Encounter Details Date Type Department Care Team (Late st Contact Info) Description 09/15/2022 Notes Only Care Management [facility] [place] [phone] Lilian Gipson, [employer] Social History Tobacco Use Types Packs/Day Years [...] Progress Notes * Lilian Gipson MSW - 09/15/2022 9:46 AM EDT I'm able to catch up with Soo via phone about how she is doing and re-assess need for specific supports and resources. She describes first round of chemotherapy as very brutal (lost 10 lbs in threedays, rash), and second round was better with fewer s/e. She feels very bloated and her hair has started to fall out in patches; she does have prescription for wigs. She has applied for SSDI and was given an estimated determination date of 12/04/22. Per Soo's request I'm able to re-send information on [facility] to her personal e-mail, as well as information on [employer] and [employer]. I'm able to send cooling gel mitts and socks to her home address. Completed today: Brief assessment Care Coordination Financial resources Community Resource documented in this encounter Plan of Treatment Upcoming Encounters Date Type Department Care Team (Late st Contact Info) Description 06/14/2024 8:00 AM EST Hospital Encounter [place] [phone] Consuelo Joyce APRN [facility] MEDICAL [place] [address] 06/14/2024 8:45 AM EST Appointment XRay at [address] [place] [address] Kavitha Rai MD [facility] DR [place] [address] 06/14/2024 9:45 AM EST Appointment Hematology and Oncology at [place] [phone] 06/14/2024 11:00 AM EST Appointment Nuclear Medicine at [place] [phone] Consuelo Joyce [facility] [place] [address] 06/14/2024 1:00 PM EST Office Visit Hematology and Oncology at [place] [phone] Kavitha Rai MD [facility] DR [place] [address] 06/14/2024 2:30 PM EST Appointment Hematology and Oncology at [place] [phone] 07/05/2024 10:30 AM EDT Appointment Hematology and Oncology at [place] [phone] 07/05/2024 11:30 AM EDT Office Visit Hematology and Oncology at [place] [phone] Consuelo Joyce [facility] [place] [address] 07/05/2024 1:00 PM EDT Appointment Hematology [place] [address] 08/16/2024 9:20 AM EDT Office Visit Ophthalmology at [place] [phone] Luz Jose, OD [facility] [place] [address] 01/14/2025 8:30 AM EDT Office Visit Psychiatry [place] [address] Anna Oneill, PhD [facility] [place] [address] documented as of this encounter Visit Diagnoses Not on filedocumented in this encounter Care Teams Flat Ironer Relationship Specialty Start Date End Date Ryan Betancourt MD [address] [place] [phone] PCP - General Family Medicine 07/29/22 documented as of this encounter
--- OUTSIDE RECORDS SUMMARY | 2024-06-01 20:45 | XMS_ITS | Encounter Summary ---
Author Organization [facility], 1928–[address] [place] [address] Care Team Providers Care Technical Data Analyst Name Role Phone Ryan Betancourt MD Primary Care Provider Reason for Referral * Diagnostic Test (Routine) - Closed Specialty Diagnoses / Procedures Referred By Ciaran lopez Referred To Contact Radiology Diagnoses Malignant neoplasm of overlapping sites of right breast in female, estrogen receptor negative Kavitha Rai MD [facility] [place] [address] [place] [address] Referral ID Status Reason Start Date Expiration Date V isits Requested Visits Authorized [id number] Closed Consult, Test & Treat 09/08/2022 09/08/2023 1 1 Encounter Details Date Type Department Care Team (Late st Contact Info) Description 09/08/2022 Orders Only [place]ematology [place] [phone] Kavitha Rai MD [facility] [place] [address] Malignant neoplasm of overlapping sites [...] AM EST Hospital Encounter [place] [phone] Consuelo Joyce APRN [facility] [place] [address] 06/14/2024 8:45 AM EST Appointment XRay at [address] [place] [phone] Kavitha Rai MD [facility] DR HEMATOLOGY [place] [address] 06/14/2024 9:45 AM EST Appointment Hematology and Oncology at [address]1000 06/14/2024 11:00 AM EST Appointment Nuclear Medicine at [address]1000 Consuelo Joyce [facility] [place] [address] 06/14/2024 1:00 PM EST Office Visit Hematology and Oncology at [address]1000 Kavitha Rai MD [facility] DR HEMATOLOGY [place] [address] 06/14/2024 2:30 PM EST Appointment Hematology and Oncology at [place] [phone] 07/05/2024 10:30 AM EDT Appointment Hematology and Oncology at [place] [phone] 07/05/2024 11:30 AM EDT Office Visit Hematology and Oncology at [place] [phone] Consuelo Joyce [facility] [place] [address] 07/05/2024 1:00 PM EDT Appointment Hematology and Oncology at [place] [phone] 08/16/2024 9:20 AM EDT Office Visit Ophthalmology at [place] [phone] Luz Jose OD [facility] [place] [address] 01/14/2025 8:30 AM EDT Office Visit Psychiatry [place] [address] Anna Oneill, PhD [facility] [address] Scheduled Referrals Name Type Priority Associated Diagnoses Order Schedule Referral to Neuro Interventional Radiology Outpatient Referral Routine Malignant neoplasm of overlapping sites of right breast in female, estrogen receptor negative Ordered: 09/08/2022 documented as of this encounter Visit Diagnoses Diagnosis Malignant neoplasm of overlapping sites of right breast in female, estrogen receptor negative documented in this encounter Care Teams Technical Data Analyst Relationship Specialty Start Date End Date Ryan Betancourt MD [address] [place] [phone] PCP - General Family Medicine 07/29/22 documented as of this encounter
--- OUTSIDE RECORDS SUMMARY | 2024-06-01 20:45 | XMS_ITS | Encounter Summary ---
Author Organization [facility] [place] [address] Care Team Providers Care Fruit Harvester Name Role Phone Ryan Betancourt MD Primary Care Provider [phone] Reason for Visit * Reason Onset Date Comments Results 08/24/2022 Encounter Details Date Type Department Care Team ([facility] st Contact Info) Description 08/24/2022 Telephone Hematology [place] [phone] Adri Zimmerman, [facility] Results Social History Tobacco Use Types Packs/Day Years Used Date Smoking Tobacco: Former Cigarettes 0.3 1 1 996 - 1996 Smokeless Tobacco: Former Alcohol Use Standard Drinks/Week Comments Not Currently 4 (1 standard drink = 0.6 oz pur e alcohol) drinks 2x a month Overall Financial Resource Strain (CARDIA) Answe r [...] encounter Miscellaneous Notes * Telephone Encounter - Adri Zimmerman [facility] - 08/24/2022 4:23 PM EDT This test result was discussed with the patient by phone. A copy of the test results have been scanned in the medical record and sent to Soo. A summary of the results is provided below. Please be advised that [place] law requires that all health care workers respect the confidentiality of this information and not pass it along to other health care providers, insurance companies, or individuals without the written permission of the patient. The [facility] welcomes any questions about these matters. Our phone number is: [phone]. On 08/09/22, Soo was seen for genetic counseling and subsequently underwent genetic testing for a hereditary predisposition to cancers in eight major organ systems including breast, gynecologic, gastrointestinal, endocrine, genitourinary, skin, brain/nervous system, sarcoma and hematologic. Following are the results of this test. Result: [facility] CancerNext-Expanded+RNA insight Panel showed no mutation was detected. This means that Soo does not carry a mutation in the genes detectable by this test. The following 77 genes were analyzed: AIP, ALK, APC, DEISI, AXIN2, BAP1, BARD1, BLM, BMPR1A, BRCA1, BRCA2, BRIP1, CDC73, CDH1, CDK4, CDKN1B, CDKN2A, CHEK2, CTNNA1, DICER1, FANCC, FH, FLCN, GALNT12, KIF1B, LZTR1, MAX, MEN1, MET, MLH1, MSH2, MSH3, MSH6, MUTYH, NBN, NF1, NF2, NTHL1, PALB2, PHOX2B, PMS2, POT1, QCRZQ7O, PTCH1, PTEN, RAD51C, RAD51D, RB1, RECQL, RET, SDHA, SDHAF2, SDHB, SDHC, SDHD, SMAD4, SMARCA4, SMARCB1, SMARCE1, STK11, SUFU, AEEH707, TP53, TSC1, TSC2, VHL and XRCC2 (sequencing and deletion/duplication); EGFR, EGLN1, HOXB13, KIT, MITF, PDGFRA, POLD1 and POLE (sequencing only); EPCAM and GREM1 (deletion/duplication only). Interpretation: This test did not identify an underlying genetic cause for the personal and family history of cancer. Possible explanations for this negative test result include: ?? Soo's cancer and the cancer in her family may be due to non genetic, environmental causes. ?? There could be a mutation in Soo's family that Soo did not inherit. ?? We would suggest that her maternal aunt with ovarian cancer consider testing as her results may potentially impact medical management, identify additional cancer risks, as well as help to identifyhereditary cancer risk for other family members. ?? There could be mutations in other cancer genes not included in this test, or in genes yet to be discovered. ?? There is a very small chance that a pathogenic variant/mutation could be missed due to limitations in the testing. Based on these results, Soo's son does not need genetic testing for hereditary cancer risk due to their maternal family history. If their father's family history is of concern, we would recommend further evaluation of that side of the family by a genetic counselor. Additional genetic testing for Soo is not recommended at this time. Screening Recommendations Based on genetic test results and personal and/or family history, we recommend: Breast cancer screening ?? Clinical breast exams and imaging as recommended by Soo's oncologists. Gynecologic cancer screening ?? Pelvic exams and/or Pap smears as recommended by Soo's pvc loader or primary care provider. Colon cancer screening ?? Baseline colorectal cancer screening starting by age 45-50 is important for everyone, regardlessof genetic predisposition. ?? Periodic colonoscopy screening as recommended by Soo's public works director. Skin cancer screening ?? Skin cancer screening and sun protection are important for everyone, regardless of genetic predisposition. ?? Consideration of routine dermatologic/skin exams, as recommended by Soo's primary care provider or ict help desk technician. documented in this encounter Plan of Treatment Upcoming Encounters Date Type Department Care Team (Late st Contact Info) Description 06/14/2024 8:00 AM EST Hospital Encounter Nuclear Medicine at [place] [phone] Consuelo Joyce [facility] [place] [address] 06/14/2024 8:45 AM EST Appointment XRay at [address] [place] [address] Kavitha Rai MD [facility] DR HEMATOLOG[place] [address] 06/14/2024 9:45 AM EST Appointment Hematology [place] [address] 06/14/2024 11:00 AM EST Appointment Nuclear Medicine at [place] [phone] Consuelo Joyce [facility] [place] [address] 06/14/2024 1:00 PM EST Office Visit Hematology [place] [address] Kavitha Rai MD [facility] DR HEMATOLOG[place] [address] 06/14/2024 2:30 PM EST Appointment Hematology [place] [address] 07/05/2024 10:30 AM EDT Appointment Hematology [place] [address] 07/05/2024 11:30 AM EDT Office Visit Hematology [place] [address] Consuelo Joyce APRN [facility] [place] [address] 07/05/2024 1:00 PM EDT Appointment Hematology [place] [address] 08/16/2024 9:20 AM EDT Office Visit Ophthalmology at [place] [phone] Luz Jose, OD [facility] [place] [address] 01/14/2025 8:30 AM EDT Office Visit Psychiatry and Behavioral Health at [place] [phone] Anna Oneill, PhD [facility] [place] [address] documented as of this encounter Visit Diagnoses Not on filedocumented in this encounter Care Teams Fruit Harvester Relationship Specialty Start Date End Date Ryan Betancourt MD [address] [place] [phone] PCP - General Family Medicine 07/29/22 documented as of this encounter
--- OUTSIDE RECORDS SUMMARY | 2024-06-01 20:45 | XMS_ITS | Encounter Summary ---
Author Organization [facility] [place] [address] Care Team Providers Care Tobacco Roller Name Role Phone Ryan Betancourt MD Primary Care Provider [phone] Encounter Details Date Type Department Care Team (Late st Contact Info) Description 08/17/2022 Orders Only Hematology and Oncology at [facility] [place] [phone] Dian Lora PA Social History Tobacco Use [...] AM EST Hospital Encounter Nuclear Medicine at [place] [phone] Consuelo Joyce [facility] [place] [address] 06/14/2024 8:45 AM EST Appointment XRay at [address] [place] [address] Kavitha Rai MD [facility] [address] [place] [address] 06/14/2024 9:45 AM EST Appointment Hematology [place] [phone] 06/14/2024 11:00 AM EST Appoint[place] [address] Consuelo Joyce [facility] [place] [address] 06/14/2024 1:00 PM EST Office Visit Hematology [place] [phone] Kavitha Rai MD [facility] [address] [place] [address] 06/14/2024 2:30 PM EST Appointment Hematology and Oncology at [place] [address] 07/05/2024 10:30 AM EDT Appointment Hematology and Oncology at [place] [address] 07/05/2024 11:30 AM EDT Office Visit Hematology and Oncology at [place] [address] Consuelo Joyce APRN [facility] [place] [address] 07/05/2024 1:00 PM EDT Appointment Hematology and Oncology at [place] [address] 08/16/2024 9:20 AM EDT Office Visit Ophthalmology at [place] [address] Luz Jose, CARSON [facility] [place] [address] 01/14/2025 8:30 AM EDT Office Visit Psychiatry and Behavioral Health at [place] [address] Anna Oneill, PhD [facility] [place] [address] documented as of this encounter Visit Diagnoses Not on filedocumented in this encounter Care Teams Tobacco Roller Relationship Specialty Start Date End Date Ryan Betancourt MD [address] [place] [phone] PCP - General Family Medicine 07/29/22 documented as of this encounter
--- OUTSIDE RECORDS SUMMARY | 2024-06-01 20:45 | XMS_ITS | Encounter Summary ---
Author Organization [facility] Address [facility] [place] [address] Care Team Providers Care Welder Setter Electron Beam Machine Name Role Phone Ryan Betancourt MD Primary Care Provider [phone] Encounter Details Date Type Department Care Team (Late st Contact Info) Description 08/26/2022 Telephone Hematology [place] [phone] Ree Daniels MD [facility] DR HEMATOLOGY/[place] [address] Social History Tobacco Use Types Packs/Day Years [...] encounter Miscellaneous Notes * Telephone Encounter - Ree Daniels MD - 08/26/2022 5:16 PM EDT Reason for call: Asking if she can use witch-ching for hemorrhoids Caller: Patient HPI: Soy Soo San is a 41 y.o. 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 She is s/p a right breast and axillary biopsy. She is status post cycle 1 of THP on 08/19/22. She says she has had some health issues after first treatment that were commented previously to . She says that she had diarrhea which stopped today, however she feels like she has a hemorrhoids that started to bleed today. She would like to know if she can use witch-ching today. She has used it in the past and it usually controls well her pain-related to hemorrhoids. She described her bleeding as minimal blood in the toilet paper only after defecation. She does have a personal history of hemorrhoids. She denies nausea, vomiting, abdominal pain, fever, chills. I reviewed information about witch-hazels. This is a genus of flowering plants in the family Hamamelidaceae, that is used to calm hemorrhoids. Based on the information that I found, I do not think there is an interaction with this medications. Therefore I advised her to proceed with the topical application. Moreover, I reviewed her CBC from 5/4/23 when she presented with normal WBC/ANC. I do not expect neutropenia today if so. All questions/concerns were addressed. Patient verbalized understanding and will call for any more questions. This note will be routed to primary oncology/hematology team. Ree Maguire M.D. Hematology/Oncology Fellow Pager # [phone] 08/26/22, 5:16 PM Hematology/Oncology Clinic [facility] [place] [address] documented in this encounter Plan of Treatment Upcoming Encounters Date Type Department Care Team (Late st Contact Info) Description 06/14/2024 8:00 AM EST Hospital Encounter [place] [address] Consuelo Joyce [facility] [place] [address] 06/14/2024 8:45 AM EST Appointment XRay at [address] [place] [address] Kavitha Rai MD [facility] HEMATOLOGY [place] [address] 06/14/2024 9:45 AM EST Appointment Hematology [place] [address] 06/14/2024 11:00 AM EST Appointment [place] [address] Consuelo Joyce [facility] [place] [address] 06/14/2024 1:00 PM EST Office Visit Hematology [place] [address] Kavitha Rai MD [facility] [place] [address] 06/14/2024 2:30 PM EST Appointment Hematology and Oncology at [place] [phone] 07/05/2024 10:30 AM EDT Appointment Hematology and Oncology at [place] [address] 07/05/2024 11:30 AM EDT Office Visit Hematology and Oncology at [place] [address] Consuelo Joyce APRN [facility] [place] [address] 07/05/2024 1:00 PM EDT Appointment Hematology and Oncology at [place] [address] 08/16/2024 9:20 AM EDT Office Visit Ophthalmology at [place] [address] Luz Jose, [facility]SON [facility] [place] [address] 01/14/2025 8:30 AM EDT Office Visit Psychiatry and Behavioral Health at [place] [address] Anna Oneill, PhD [facility] [place] [address] documented as of this encounter Visit Diagnoses Not on filedocumented in this encounter Care Teams Welder Setter Electron Beam Machine Relationship Specialty Start Date End Date Ryan Betancourt MD [address] [place] [phone] PCP - General Family Medicine 07/29/22 documented as of this encounter
--- OUTSIDE RECORDS SUMMARY | 2024-06-01 20:45 | XMS_ITS | Encounter Summary ---
Author Organization [facility] Address [facility] [place] [address] Care Team Providers Care Rn Camp Name Role Phone Ryan Betancourt MD Primary Care Provider [phone] Reason for Visit * Treatment/Therapy Plan Authorization (Routine) - Closed Specialty Diagnoses / Procedures Referred By Ciaran lopez Referred To Contact Diagnoses Malignant neoplasm of overlapping sites of right breast in female, estrogen receptor negative Procedures TC PEGFILGRASTIM, EXCLUDES BIOSIMILAR, 0.5 MG, INJ TC DOCETAXEL, 1MG, INJECTION [id number] PERTuzumab (Perjeta) 840 mg [id number]-[id number] (Kanjinti) 710 mg Kavitha Rai MD [facility] DR [place] [address] [facility] Hem Onc [address] [place] [address] Referral ID Status Reason Start Date Expiration Date Visits Re quested Visits Authorized [id number] Closed 08/05/2022 08/06/2023 1 103 Encounter Details Date Type Department Care Team (Latest Contact Info) Description 08/19/2022 6:57 AM EDT Hospital Encounter Hematology and Oncology [...] Sign Reading Time Taken Comments Blood Pressure 102/71 08/19/2022 8:03 AM EDT Pulse 58 08/19/2022 8:03 AM EDT Temperature 36.7 ??C (98 ??F) 08/19/2022 8:03 AM EDT Respiratory Rate 20 08/19/2022 8:03 AM EDT Oxygen Saturation 97% 08/19/2022 8:03 AM EDT Inhaled Oxygen Concentration - - Weight - - Height - - Body Mass Index - - documented in this encounter Medications at Time of Discharge Medication Sig Dispensed Refills Start Date End Date betamethasone dipropionate (Diprolene) 0.05 % Cream Apply [...] as of this encounter Progress Notes * Rosana Zapata, RN - 08/19/2022 11:55 AM EDT Patient Name: Soy San Patient Age: 41 y.o. Birthdate: 1980 Admit date: 08/19/2022 Attending Physician: No att. providers found Soy San, 41 y.o. female with diagnosis of breast cancer is here for chemotherapy infusion of THP and Onpro PROTOCOL: na CYCLE: 1 WEEK: na DAY: 1 S: Pt. offers no complaints at this time. O: Chemotherapy orders independently verified for correct drug name, route and dosage per patient'sheight, weight and BSA by Rosana Zapata RN and onsite pharmacist REACTIONS (DESCRIPTION, TIME, INTERVENTION AND EFFECTIVENESS) None A: Pt. Tolerated treatment well. Soy San confirms that all questions and issues have been addressed. P: Return to clinic per routine documented in this encounter Plan of Treatment Upcoming Encounters Date Type Department Care Team (Late st Contact Info) Description 06/14/2024 8:00 AM EST Hospital Encounter [place] [address] Consuelo Joyce APRN [facility] [place] [address] 06/14/2024 8:45 AM EST Appointment XRay at [address] [place] [phone] Kavitha Rai MD [facility] DR HEMATOLOG[place] [address] 06/14/2024 9:45 AM EST Appointment Hematology and Oncology at [place] [phone] 06/14/2024 11:00 AM EST Appointment Nuclear Medicine at [place] [phone] Consuelo Joyce [facility] [place] [address] 06/14/2024 1:00 PM EST Office Visit [place]ology [place] [phone] Kavitha Rai MD [facility] DR HEMATOLOGY [place] [address] 06/14/2024 2:30 PM EST Appointment Hematology [place] [phone] 07/05/2024 10:30 AM EDT Appointment Hematology and Oncology at [place] [phone] 07/05/2024 11:30 AM EDT Office Visit Hematology and Oncology at [place] [phone] Consuelo Joyce [facility] [place] [address] 07/05/2024 1:00 PM EDT Appointment Hematology and Oncology at [place] [phone] 08/16/2024 9:20 AM EDT Office Visit Ophthalmology at [place] [phone] Luz Jose OD [facility] [place] [address] 01/14/2025 8:30 AM EDT Office Visit Psychiatry and Behavioral Health at [facility] [place] [address] Anna Oneill, PhD [facility] [place] [address] documented as of this encounter Visit Diagnoses Diagnosis Malignant neoplasm of overlapping sites of right breast in female, estrogen receptor negative documented in this encounter Administered Medications Inactive Administered Medications - up to 3 most recent administrations Medication Order MAR Action Action Date Dose Rate Site dexAMETHasone (PF) (Decadron) (10 mg/mL) injection 10 mg 10 mg, Intravenous, ONCE, 1 dose, On Yvette 08/19/22 at 0830, Administer 60 minutes prior to DOCEtaxel Given 08/19/2022 11:18 AM EDT 10 mg diphenhydrAMINE (Benadryl) capsule 50 mg 50 mg, Oral, ONCE, 1 dose, On Yvette 08/19/22 at 0830, Administer 60 minutes prior to DOCEtaxel, Routine Given 08/19/2022 11:17 AM EDT 50 mg DOCEtaxeL (Taxotere) 140 mg in sodium chloride 0.9% Non-PVC 257 mL infusion 140 mg, Intravenous, ONCE, 1 dose, On Yvette 08/19/22 at 0830, Administer over 60 Minutes, Warning Vesicant/Irritant Medication Dose Ordered = 152 mg (75 mg/m2). Pharmacist rounded dose per procedure. New Bag 08/19/2022 1:17 PM EDT 140 mg 257 mL/hr famotidine (Pepcid) (10 mg/mL) injection 20 mg 20 mg, Intravenous, ONCE, 1 dose, On Yvette 08/19/22 at 0830, Administer 60 minutes prior to DOCEtaxel Given 08/19/2022 11:18 AM EDT 20 mg heparin (pf) (porcine) (100 units/mL) flush 5 mL syringe 500 Units 500 Units, Intravenous, ONCE PRN, Starting on Yvette 08/19/22 at 0808, Until Tue08/20/22 at 0434, Line Care, Refer to Intravenous (IV) Procedure: Accessing Implanted Vascular Access Devices (654) procedure and/or Intravenous (IV) Job Aid: Adult Flushing & Catheter Care (4683) job aid for additional information regarding guidelines and administration., Routine Given 08/19/2022 2:30 PM EDT 500 Units LORazepam (Ativan) tablet 0.5 mg 0.5 mg, Oral, EVERY 4 HOURS PRN, Starting on Yvette 08/19/22 at 0808, Until Tue08/20/22 at 0434, Anxiety, Nausea, Vomiting, If multiple antiemetics are ordered, use in the following sequence: Ondansetron>Prochlorpera zine or Promethazine>LORazepam>Meto clopramide, Routine Given 08/19/2022 11:17 AM EDT 0.5 mg ondansetron (Zofran) tablet 8 mg 8 mg, Oral, ONCE, 1 dose, On Yvette 08/19/22 at 0830, Administer prior to chemotherapy, Routine Given 08/19/2022 8:24 AM EDT 8 mg pegfilgrastim (Neulasta Onpro) (6 mg/0.6 mL) injection kit 6 mg 6 mg, Subcutaneous, ONCE, 1 dose, On Yvette 08/19/22 at 0830, Allow the prefilled syringe co-packaged with the on-body injector to reach room temperature at least 30 minutes prior to administration., Routine, This agent is restricted to outpatient use. Is this drug being given as an outpatient? Yes Given 08/19/2022 2:29 PM EDT 6 mg PERTuzumab (Perjeta) 840 mg in sodium chloride 0.9% 278 mL infusion 840 mg, Intravenous, ONCE, 1 dose, On Yvette 08/19/22 at 0930, Administer over 60 Minutes, This agent is restricted to outpatient use. Is this drug being given as an outpatient? Yes New Bag 08/19/2022 9:12 AM EDT 840 mg 278 mL/hr sodium chloride 0.9% infusion 200 mL/hr, Intravenous, ONCE, 1 dose, On Yvette 08/19/22 at 0830 New Bag 08/19/2022 8:25 AM EDT 200 mL/hr 200 mL/hr TRASTuzumab-anns (Kanjinti) 900 mg in sodium chloride 0.9% 292.9 mL infusion 900 mg (rounded from 896 mg = 8 mg/kg/dose ? 112 kg Treatment plan Recorded weight), Intravenous, ONCE, 1 dose, On Yvette 08/19/22 at 1015, Administer over 90 Minutes, Incompatible in D5W, This agent is restricted to outpatient use. Is this drug being given as an outpatient? Yes New Bag 08/19/2022 11:26 AM EDT 900 mg 195.3 mL/hr documented in this encounter Care Teams Rn Camp Relationship Specialty Start Date End Date Ryna Betancourt MD [address] [place] [phone] PCP - General Family Medicine 07/29/22 documented as of this encounter
--- OUTSIDE RECORDS SUMMARY | 2024-06-01 20:45 | XMS_ITS | Encounter Summary ---
Author Organization [facility] [place] [address] Care Team Providers Care Director Of Loss Prevention Name Role Phone Ryan Betancourt MD Primary Care Provider [phone] Encounter Details Date Type Department Care Team (Latest Contact Info) Description 09/01/2022 6:55 AM EDT Laboratory Appointment Lab [address] [place] [phone] Malignant neoplasm of overlapping sites of breast [...] AM EST Hospital En[place] [address] Consuelo Joyce APRN [facility] [place] [address] 06/14/2024 8:45 AM EST Appointment XRay at [address] [place] [address] Kavitha Rai MD [facility] [place] [address] 06/14/2024 9:45 AM EST Appointment Hematology [place] [address] 06/14/2024 11:00 AM EST Appointment [place] [address] Consuelo Joyce APRN [facility] [place] [address] 06/14/2024 1:00 PM EST Office Visit Hematology [place] [address] Kavitha Rai MD [facility] DR [place] [address] 06/14/2024 2:30 PM EST Appointment Hematology [place] [address] 07/05/2024 10:30 AM EDT Appointment Hematology [place] [address] 07/05/2024 11:30 AM EDT Office Visit Hematology [place] [address] Consuelo Joyce APRN [facility] [place] [address] 07/05/2024 1:00 PM EDT Appointment Hematology [place] [address] 08/16/2024 9:20 AM EDT Office [place] [address] Luz Jose, [facility] [address] 01/14/2025 8:30 AM EDT Office Visit Psychiatry and Behavioral Health at [place] [phone] Anna Oneill, PhD [facility] [place] [address] documented as of this encounter Procedures Procedure Name Priority Date/Time Associated Diagnosis Comments HEMOGRAM STAT 09/01/2022 7:09 AM EDT Malignant neoplasm of overlapping sites of breast in female, estrogen receptor negative, unspecified laterality PROTHROMBIN TIME STAT 09/01/2022 7:09 AM EDT Malignant neoplasm of overlapping sites of breast in female, estrogen receptor negative, unspecified laterality documented in this encounter Results * Hemogram (09/01/2022 7:09 AM EDT) White Blood Cell 9.0 4.0 - 9.5 x10(3)/[facility] [address] LABORAT[facility] Red Blood Cell 4.78 4.00 - 5.21 x10(6)/[facility] [address] LAB[facility]ORY Hemoglobin 13.4 11.7 - 15.5 g/dL [facility] Hematocrit 40.0 35.7 - 45.8 % [facility] Mean Cell Volume 83.7 82.6 - 94.4 fL [facility] Mean Cell Hemoglobin 28.0 27.1 - 32.0 pg [facility] Mean Cell Hemoglobin Concentration 33.5 31.7 - 35.0 g/dL [facility] Platelet 193 145 - 357 x10(3)/[facility] [address] LABORATORY RDW Standard Deviation 38.2 37.0 - 46.0 fL [facility] RDW coefficient of variation 12.7 11.5 - 14.1 % [facility] Mean Platelet Volume 10.5 7.6 - 12.9 fL [facility] NRBC% auto 0.0 % [facility] NRBC Absolute 0.000 0.000 - 0.000 x10(3)/[facility] [address] [facility] Blood 09/01/2022 7:09 AM EDT 09/01/2022 7:14 AM EDT Narrative Resulting Agency Comment Spec In Lab Ryan Dumont MD HEMATOLOGY ORDERABLE S [facility] [place] [address] * (ABNORMAL) Prothrombin Time (09/01/2022 7:09 AM EDT) Prothrombin Time 13.0(H) 9.4 - 12.5 sec [facility] International Normalization Ratio 1.1 [facility] Comment: An [...] be appropriate depending on clinical circumstances. Blood 09/01/2022 7:09 AM EDT 09/01/2022 7:14 AM EDT Narrative Resulting Agency Comment Spec In Lab Ryan Dumont MD HEMATOLOGY ORDERABLE S [facility] [place] [address] documented in this encounter Visit Diagnoses Diagnosis Malignant neoplasm of overlapping sites of breast in female, estrogen receptor negative, unspecified laterality documented in this encounter Care Teams Director Of Loss Prevention Relationship Specialty Start Date End Date Ryan Betancourt MD [address] [place] [phone] PCP - General Family Medicine 07/29/22 documented as of this encounter
--- OUTSIDE RECORDS SUMMARY | 2024-06-01 20:45 | XMS_ITS | Encounter Summary ---
Author Organization [facility] Address [facility] [place] [address] Care Team Providers Care Paradichlorobenzene Tender Name Role Phone Ryan Betancourt MD Primary Care Provider [phone] Encounter Details Date Type Department Care Team (Late st Contact Info) Description 08/23/2022 2:00 PM EDT TH Visit (TeleHealth) [place]ematology [place] [phone] Subhash Koehler, [facility] Malignant neoplasm of overlapping sites [...] as of this encounter Progress Notes * Subhash Koehler, [facility] - 08/23/2022 2:00 PM EDT Oncology Clinical Pharmacist Consultation: CINV follow-up Visit Type: Video Subjective: Patient ID: Soy San is a 41 y.o. female diagnosed with Metastatic breast cancer ER/UT-/HER2+ who is being seen in follow-up today for chemotherapy-induced nausea and vomiting management. Allergies and Drug intolerance: Allergies Allergen Reactions ??? Milk Containing Products ??? Other [Unclassified Drug] Hives Pollen - runny nose, itchy and watery eyes Chemotherapy Regimen includes the following agents: ?? Docetaxel 75 mg/m2 ?? Pertuzumab ?? Trastuzumab Current Antiemetic Regimen ([place] & Prescriptions): ?? Decadron (dexamethasone) 10 mg IV or PO prior to chemotherapy ?? Zofran (ondansetron) 8 mg IV or PO prior to chemotherapy CINV Assessment: ?? Did you experience any nausea and/or vomiting during your last cycle of chemotherapy? yes ?? If yes, when did the nausea and/or vomiting occur and how long did it last? Day 3-4 ?? Did you need to utilize any PRN antinausea medications? yes ?? Did you have any difficulty filling your antinausea medications? no ?? Do you need any refills of any antinausea medications? no ?? Do you believe your nausea is adequately controlled on your current regimen? no Assessment and Recommendations: Soy aSn is a 41 y.o. female diagnosed with Metastatic breast cancer ER/UT-/HER2+ who was seen in follow up today for chemotherapy-induced nausea and vomiting management. Additional medication changes were needed today in an effort to better control CINV. Pharmacy will continue to regularly meet with Soy San until an optimal antiemetic regimen is determined. Soy had been feeling well the first couple of days after infusion. Beginning Tuesday into Tuesday was having nausea, diarrhea, and vomiting. At the moment she ws feeling fine but had been only able to keep liquids down. I recommended imodium for the diarrhea, which is likely from the pertuzumab, but she prefers Pepto Bismol. For the nausea I sent in a prescription for Zofran 8 mg Q 8 hours as needed. She had been using a few doses of the compazine with some effect, but still a minor persistent nausea. Antiemetic Plan: ??? Compazine (prochlorperazine) 10 mg PO every 6 hours as needed for nausea ??? Zofran (ondansetron) 8 mg PO every 8 hours as needed for nausea Pharmacy follow up appointment: 09/13/22 Subhash Koehler RPH 08/23/22 25 minutes were spent providing patient education. documented in this encounter Plan of Treatment Upcoming Encounters Date Type Department Care Team (Late st Contact Info) Description 06/14/2024 8:00 AM EST Hospital En[place] [address] [facility] [place] [address] 06/14/2024 8:45 AM EST Appointment XRay at [address] [place] [phone] [facility] DR [place] [address] 06/14/2024 9:45 AM EST Appointment Hematology [place] [phone] 06/14/2024 11:00 AM EST Appointment Nuclear Medicine at [place] [address] [address] [facility] [place] [address] 06/14/2024 1:00 PM EST Office Visit Hematology and Oncology at [place] [address] [facility] DR HEMATOLOG[place] [address] 06/14/2024 2:30 PM EST Appointment Hematology and Oncology at [place] [address] 07/05/2024 10:30 AM EDT Appointment Hematology and Oncology at [place] [address] 07/05/2024 11:30 AM EDT Office Visit Hematology and Oncology at [place] [address] [facility] [place] [address] 07/05/2024 1:00 PM EDT Appointment Hematology and Oncology at [place] [address] 08/16/2024 9:20 AM EDT Office Visit Ophthalmology at [place] [address] Luz Jose, [facility] [place] [address] 01/14/2025 8:30 AM EDT Office Visit Psychiatry and Behavioral Health at [place] [address] Anna Oneill, PhD [facility] [place] [address] documented as of this encounter Visit Diagnoses Diagnosis Malignant neoplasm of overlapping sites of right breast in female, estrogen receptor negative documented in this encounter Care Teams Paradichlorobenzene Tender Relationship Specialty Start Date End Date Ryan Betancourt MD [address] [place] [phone] PCP - General Family Medicine 07/29/22 documented as of this encounter
--- OUTSIDE RECORDS SUMMARY | 2024-06-01 20:45 | XMS_ITS | Encounter Summary ---
Author Organization [facility] [place] [address] Care Team Providers Care Clinical Psychologist Name Role Phone Ryan Betancourt MD Primary Care Provider [phone] Reason for Visit * Reason Onset Date Comments Follow-up 08/20/2022 Encounter Details Date Type Department Care Team (Late st Contact Info) Description 08/20/2022 Telephone Hematology [place] [phone] Madeline Verdugo, RN Follow-up Social History Tobacco [...] Telephone Encounter - Madeline Verdugo RN - 08/20/2022 10:26 AM EDT Chemotherapy Follow-up Call Placed call to patient to assess tolerance of first time chemotherapy treatment. Regimen received: DOCEtaxel / TRASTuzumab / PERTuzumab (JIMI)/ONpro Date of treatment:08/19/2022 Assessment: Symptom Present (yes[y]/no[n]/ stable[s] from baseline) Additional information/Assessment GI Nausea slight Feels like she is hungry but then also feels a little nausea. Vomiting n Nausea medication n Tolerating diet y Maintaining fluid intake (indicate volume) y No estimate Bowel movements regular y Diarrhea n Mouth sores n General Pain (0 none - 10 high) 2 Cancer assoc. pain Using pain medications percocet Has taken twice Fever n Neuro Level of fatigue (0 - 5) 1-2:5 Slept 90% of but actually feels fine. Falls n Numbness/tingling in arms/legs n Cognitive changes n Skin Skin changes n Pinpoint red dots n Other s/s of bleeding n IV site/VAD problems n Little sore from just being put in no redness or Signs of infection Musculoskeletal Joint swelling or tenderness n Arthralgias or myalgias n Voiding problems Increased urination Color and quality of urine Clear to light yellow Cardio-pulmonary Shortness of breath n Chest pain n Swelling in legs n Calf pain or tenderness n Cough (productive/non-productive) n Psychosocial Coping y Didn't know what to expect but feels good. Need prescription renewals n Other issues : Education provided: Plan: 1. Reinforced to patient/care-call worker person to call facility 08/11 with any new/worsening signs and symptomsor concerns or questions. Phone number provided. Pt verbalized understanding and is in agreement with plan. Feels pretty good. Slight nausea. Port site is still pump operator. Was tender and then the access made that a bit more tender. She knows benadryl knocks her out. Percocet for cancer related pain in her chest. Slept most of the day yesterday. Stress, nerves, chemo combo made her very tired. Insurance only allowed 7 day supply of percocet at a time. RN will send message to palliative care concerning refill. Claritin. For bone pain. documented in this encounter Plan of Treatment Upcoming Encounters Date Type Department Care Team (Late st Contact Info) Description 06/14/2024 8:00 AM EST Hospital En[place] [address] Consuelo Joyce [facility] [place] [address] 06/14/2024 8:45 AM EST Appointment XRay at [address] [place] [address] Kavitha Rai MD [facility] DR [place]AT[place] [address] 06/14/2024 9:45 AM EST Appointment Hematology [place] [address] 06/14/2024 11:00 AM EST Appointment [place] [phone] Consuelo Joyce [facility] [place] [address] 06/14/2024 1:00 PM EST Office Visit Hematology and Oncology at [place] [phone] Kavitha Rai MD [facility] [address] [place] [address] 06/14/2024 2:30 PM EST Appointment Hematology and Oncology at [place] [phone] 07/05/2024 10:30 AM EDT Appointment Hematology and Oncology at [place] [address] 07/05/2024 11:30 AM EDT Office Visit Hematology [place] [address] Consuelo Joyce APRN [facility] [place] [place] [address] 07/05/2024 1:00 PM EDT Appointment Hematology and Oncology at [place] [phone] 08/16/2024 9:20 AM EDT Office Visit Ophthalmology at [place] [address] Luz Jose, [facility] [place] [address] 01/14/2025 8:30 AM EDT Office Visit Psychiatry and Behavioral Health at [place] [phone] Anna Oneill, PhD [facility] [place] [address] documented as of this encounter Visit Diagnoses Not on filedocumented in this encounter Care Teams Clinical Psychologist Relationship Specialty Start Date End Date Ryan Betancourt MD [address] [place] [phone] PCP - General Family Medicine 07/29/22 documented as of this encounter
--- OUTSIDE RECORDS SUMMARY | 2024-06-01 20:45 | XMS_ITS | Encounter Summary ---
Author Organization [facility] [place] [address] Care Team Providers Care Construction Flagger Name Role Phone Ryan Betancourt MD Primary Care Provider [phone] Encounter Details Date Type Department Care Team (Latest Contact Info) Description 08/11/2022 12:06 PM EDT - 08/11/2022 11:59 PM EDT Hospital Encounter Hematology [place] [phone] Malignant neoplasm of left breast in female, estrogen receptor positive, unspecified site of breast; Family history of malignant neoplasm of breast; Family history of malignant neoplasm of gastrointestinal tract; Family history of malignant neoplasm of ovary Discharge Disposition: Home Social History Tobacco Use [...] Hospital Encounter [place] [phone] Consuelo Joyce APRN [facility] [place] [address] 06/14/2024 8:45 AM EST Appointment XRay at [address] [place] [address] Kavitha Rai MD [facility] DR HEMATOLOGY [place] [address] 06/14/2024 9:45 AM EST Appointment Hematology [place] [phone] 06/14/2024 11:00 AM EST Appointment [place] [phone] Consuelo Joyce APRN [facility] [place] [address] 06/14/2024 1:00 PM EST Office Visit Hematology and Oncology at [place] [address] Kavitha Rai MD [facility] [place] [address] 06/14/2024 2:30 PM EST Appointment Hematology and Oncology at [place] [address] 07/05/2024 10:30 AM EDT Appointment Hematology and Oncology at [place] [address] 07/05/2024 11:30 AM EDT Office Visit Hematology and Oncology at [place] [address] Consuelo Joyce [employer] [facility] [place] [address] 07/05/2024 1:00 PM EDT Appointment Hematology and Oncology at [place] [address] 08/16/2024 9:20 AM EDT Office Visit Ophthalmology at [place] [address] Luz Jose, [facility] [place] [address] 01/14/2025 8:30 AM EDT Office Visit Psychiatry and Behavioral Health at [address] Anna Oneill, PhD [facility] [place] [address] documented as of this encounter Procedures Procedure Name Priority Date/Time Associated Diagnosis Comments RESEARCH VENIPUNCTURE Routine 08/11/2022 12:55 PM EDT Malignant neoplasm of left breast in female, estrogen receptor positive, unspecified site of breast Family history of malignant neoplasm of breast Family history of malignant neoplasm of gastrointestinal tract Family history of malignant neoplasm of ovary documented in this encounter Results * Research Venipuncture (08/11/2022 12:55 PM EDT) Research Venipuncture Drawn [facility] Blood 08/11/2022 12:5 5 PM EDT 08/11/2022 1:07 PM EDT Narrative Resulting Agency Comment Spec In Lab Isaac Bundy MD CHEMISTRY ORDERABLES [facility] [place] [address] documented in this encounter Visit Diagnoses Diagnosis Malignant neoplasm of left breast in female, estrogen receptor positive, unspecified site of breast Family history of malignant neoplasm of breast Family history of malignant neoplasm of gastrointestinal tract Family history of malignant neoplasm of ovary documented in this encounter Care Teams Construction Flagger Relationship Specialty Start Date End Date Ryan Betancourt MD [address] [place] [phone] PCP - General Family Medicine 07/29/22 documented as of this encounter
--- OUTSIDE RECORDS SUMMARY | 2024-06-01 20:45 | XMS_ITS | Encounter Summary ---
[place] [address] Care Team Providers Care Senior Marketing Associate Name Role Phone Ryan Betancourt MD Primary Care Provider [phone] Reason for Referral * Diagnostic Test (Routine) - Closed Specialty Diagnoses / Procedures Referred By Ciaran lopez Referred To Contact Radiology Diagnoses Malignant neoplasm of right breast in female, estrogen receptor negative, unspecified site of breast Procedures MRI Brain wwo Contrast (Generic) Anastasiia Carrizales MD [facility] [place] [address] [place] [address] Referral ID Status Reason Start Date Expiration Date V isits Requested Visits Authorized [id number] Closed Specialty Service Requested 08/17/2022 02/18/2024 1 1 Reason for Visit * Reason Comments Follow-up Encounter Details Date Type Department Care Team ([facility] Contact Info) Description 08/17/2022 1:30 PM EDT Office Visit Hematology [place] [phone] Kavitha Rai MD [facility] [place] [address] Malignant neoplasm of right breast in female, [...] Sign Reading Time Taken Comments Blood Pressure 107/74 08/17/2022 1:53 PM EDT Pulse 50 08/17/2022 1:53 PM EDT Temperature 36.1 ??C (97 ??F) 08/17/2022 1:53 PM EDT Respiratory Rate 18 08/17/2022 1:53 PM EDT Oxygen Saturation 99% 08/17/2022 1:53 PM EDT Inhaled Oxygen Concentration - - Weight 112 kg (246 lb 14.6 oz) 08/17/2022 1:53 P M EDT Height 165 cm (5' 4.96) 08/17/2022 1:53 PM EDT Body Mass Index 41.14 08/17/2022 1:53 PM EDT documented in this encounter Progress Notes * Anastasiia Carrizales MD - 08/17/2022 1:30 PM EDT Images from the original note were not included. Soy San is a 41 y.o. female with With a locally advanced and probably stage 4 HER 2 alexa enriched breast cancer here for an opinion regarding the next step in her care. 08/17/2022: Here for follow-up. 08/12/22 mediport placed [...] right breast in the shower. Subsequently called [facility], seen that day. [...] it that measures 2.6 cm Right breast US:5.6 cm right axilla measuring 3.5 cm and second smaller lymph node measuring 2.2 cm increasing thickening of the skin of the breast 07/06/2022: breast and right axillary LN biopsy Right breast Pathology: PD IDC + LVI ER negative [place] negative Her 2 alexa amplified HER2 TO CEP-17 RATIO = 16.0 ?? Right axilla, biopsy: ?? pathology: High grade invasive ductal carcinoma Definite lymph node tissue is not seen. This mayrepresent a lymph node that is completely replaced [...] Multiple hepatic metastases. 4. Multiple osseous metastases CT guided liver biopsy 09/01/2022: 08/19/2022: [facility] PMH: None PSH: tubal ligation @ 15 years ago MEDS: none ALL: none SH/FH Non smoker Very little ETOH 1 biological child, 22. 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 Negative for chills, fatigue and fever. HENT: Negative. Eyes: Negative. Respiratory: Negative. Negative for cough, dizziness on exertion and shortness of breath. Cardiovascular: Negative. Negative for chest pain and leg swelling. Gastrointestinal: Negative. Endocrine: Negative. Genitourinary: Negative. Musculoskeletal: Negative. Skin: Negative. Neurological: Negative. Hematological: Negative. Psychiatric/Behavioral: Negative. All other systems reviewed and are negative. Physical Exam: Constitutional: She is oriented to person, place, and time. She appears well- developed and well-nourished. No distress. HENT: Head: Normocephalic. Eyes: Conjunctivae are normal. Pupils are equal, round, and reactive to light. Neck: Normal range of motion. Cardiovascular: Normal rate, regular rhythm and normal heart sounds. Pulmonary/Chest: Effort normal and breath sounds normal. Breasts: Right breast: markedly edematous involving entire breast. No discrete mass. Progressive pinkish sq nodules @3 oc (picture taken). Peau d'orange appearance. Right axilla [address] Left breast: normal No evidence of CW recurrence or infection. Abdominal: Soft. Bowel sounds are normal. There is no tenderness. Musculoskeletal: Normal range of motion Pt tenderness lower T spine. Extremities: no clubbing, cyanosis or edema Neurological: She is alert and oriented to person, place, and time. Gait normal. Skin: Skin is warm and dry. Psychiatric: She has a normal mood and affect. Her behavior is normal A/P: Soy San is a 41 y.o. 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 She is s/p a right breast and axillarybiopsy. Will start THP (Ruthy regimen) given the high pre-test probability of her having metastatic disease. - Awaiting liver biopsy and MRI thoracic spine - Will order MRI brain - Need to discuss genetics referral - Percocet 5mg PO q4h PRN for pain and EMLA cream to use during infusions 08/19/22 Cycle 1 THP + on-pro. Capped taxotere dose at a BSA = 2.0 09/02 labs, clinic appt w jonelle 09/09 Cycle 2 THP (may need to add to Dian's schedule depending on how she looks 09/02) Future Appointments Date Time Provider Department Center 08/17/2022 1:30 PM Kavitha Rai MD [facility] 08/19/2022 7:00 AM ACCESS ROOM [facility] [address] [place] [address] 08/19/2022 8:00 AM [facility] THERAPY [facility] [address] [place] [address] 08/23/2022 2:00 PM Hem/Onc, Clinic Pharmacist [facility] 09/01/2022 8:30 AM [facility] [address] [facility] Rad 09/02/2022 5:50 PM [facility] MR 5 MH MRI [facility] Rad * Kavitha Rai MD - 08/17/2022 1:30 PM EDT I have seen and examined the patient in person and reviewed the Fellow's above history and I agree with the details as written. The assessment and plan were formulated in discussion with me and I agree with them as documented. Still pending items for her evaluation and staging including a CT of liver to confirm metastatic disease, MRI of T spine and head. Mid T spine pain the same at 4/10. Progressive edema, skin nodules and inflammatory changes in right breast. She does need to start treatment and will start THP in 2 days. RTC 09/02 to see MD and next rx is 09/09. documented in this encounter Plan of Treatment Upcoming Encounters Date Type Department Care Team (Late st Contact Info) Description 06/14/2024 8:00 AM EST Hospital Encounter [place] [address] Consuelo Joyce APRN [facility] [place] [address] 06/14/2024 8:45 AM EST Appointment XRay at [address] [place] [phone] Kavitha Rai MD [facility] [place] [address] 06/14/2024 9:45 AM EST Appointment Hematology [place] [address] 06/14/2024 11:00 AM EST Appointment [place] [address] Consuelo Joyce APRN [facility] [place] [address] 06/14/2024 1:00 PM EST Office Visit Hematology and Oncology at [place] [address] Kavitha Rai MD [facility] [address] [place] [address] 06/14/2024 2:30 PM EST Appointment Hematology and Oncology at [place] [address] 07/05/2024 10:30 AM EDT Appointment Hematology and Oncology at [place] [address] 07/05/2024 11:30 AM EDT Office Visit Hematology and Oncology at [place] [address] Consuelo Joyce APRN [facility] [place] [address] 07/05/2024 1:00 PM EDT Appointment Hematology and Oncology at [place] [address] 08/16/2024 9:20 AM EDT Office Visit Ophthalmology at [place] [address] Luz Jose, CARSON [facility] [place] [address] 01/14/2025 8:30 AM EDT Office Visit Psychiatry and Behavioral Health at [place] [address] Anna Oneill, PhD [facility] [place] [address] documented as of this encounter Results * [...] have questions please contact the health healthcare technician that requested your imaging first. ? Electronically signed by: Simone Barth MD, [facility] ([phone]), at 09/24/2022 7:36 PM Narrative 09/24/2022 7:36 PM EDT EXAMINATION: MRI BRAIN WWO CONTRAST (GENERIC) CLINICAL HISTORY: breast cancer, evaluate for metastatic disease 41yo F with IDC HEr2+, likely metastatic disease. 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 Electronically signed by: Simone Barth MD, [facility]([phone]), at 09/24/2022 7:36 PM Kavitha Rai MD IMG MRI ORDERABLES documented in this encounter Visit Diagnoses Diagnosis Malignant neoplasm of right breast in female, estrogen receptor negative, unspecified site of breast Malignant neoplasm of right breast in female, estrogen receptor negative, unspecified site of breast documented in this encounter Care Teams Senior Marketing Associate Relationship Specialty Start Date End Date Ryan Betancourt MD [address] [place] [phone] PCP - General Family Medicine 07/29/22 documented as of this encounter
--- OUTSIDE RECORDS SUMMARY | 2024-06-01 20:45 | XMS_ITS | Encounter Summary ---
[place] [address] Care Team Providers Care Operations Chief Name Role Phone Ryan Betancourt MD Primary Care Provider [phone] Encounter Details Date Type Department Care Team (Latest Contact Info) Description 08/19/2022 6:58 AM EDT - 08/19/2022 11:59 PM EDT Hospital Encounter Hematology [place] [phone] Malignant neoplasm of overlapping sites of right [...] AM EST Hospital Encounter [place] [phone] Consuelo Joyce APRN [facility] [place] [address] 06/14/2024 8:45 AM EST Appointment XRay at [address] [place] [phone] Kavitha Rai MD [facility] [place] [address] 06/14/2024 9:45 AM EST Appointment Hematology [place] [phone] 06/14/2024 11:00 AM EST Appointment Nuclear Medicine at [place] [address] Consuelo Joyce APRN [facility] [place] [address] 06/14/2024 1:00 PM EST Office Visit Hematology and Oncology at [place] [address] Kavitha Rai MD [facility] [address] [place] [address] 06/14/2024 2:30 PM EST Appointment Hematology and Oncology at [place] [address] 07/05/2024 10:30 AM EDT Appointment Hematology and Oncology at [place] [address] 07/05/2024 11:30 AM EDT Office Visit Hematology and Oncology at [place] [address] Consuelo Joyce [facility] [place] [address] 07/05/2024 1:00 PM EDT Appointment Hematology and Oncology at [place] [address] 08/16/2024 9:20 AM EDT Office Visit Ophthalmology at [place] [address] Luz Jose, CARSON [facility] [place] [address] 01/14/2025 8:30 AM EDT Office Visit Psychiatry and Behavioral Health at [place] [address] Anna Oneill, PhD [facility] [place] [address] documented as of this encounter Procedures Procedure Name Priority Date/Time Associated Diagnosis Comments HEMOGRAM STAT 08/19/2022 7:10 AM EDT Malignant neoplasm of overlapping sites of right breast in female, estrogen receptor negative DIFFERENTIAL, AUTOMATED STAT 08/19/2022 7:10 AM EDT Malignant neoplasm of overlapping sites of right breast in female, estrogen receptor negative CANCER ANTIGEN 15-3 STAT 08/19/2022 7 :10 AM EDT Malignant neoplasm of overlapping sites of right breast in female, estrogen receptor negative HC CBC,PLT & AUTO DIFF STAT 7:10 AM EDT Malignant neoplasm of overlapping sites of right breast in female, estrogen receptor negative CEA Routine 08/19/2022 7:10 AM EDT Malignant neoplasm of overlapping sites of right breast in female, estrogen receptor negative COMPREHENSIVE METABOLIC PANEL STAT 08/19/2022 7:10 AM EDT Malignant neoplasm of overlapping sites of right breast in female, estrogen receptor negative documented in this encounter Results * Differential, Automated (08/19/2022 7:10 AM EDT) Neutrophil % 70.3 % [facility] Neutrophil Absolute 4.80 1.70 - 6.10 x10(3)/[facility] Lymph % 21.6 % [facility] Lymphocytes Abs 1.5 0.9 - 3.2 x10(3)/[facility] LAB[facility] Monocyte % 5.1 % [facility] Monocyte Abs 0.4 0.3 - 0.9 x10(3)/[facility] Eos % 2.3 % [facility] Eosinophils Abs 0.2 0.0 - 0.4 x10(3)/[facility] Basophil % 0.6 % [facility] Baso Absolute 0.0 0.0 - 0.1 x10(3)/[facility] LABOR[facility] Immature Gran % 0.10 % [facility] Comment: Immature granulocytes(IG's)percentage and absolute count will include metamyelocytes, myelocytes, and promyelocytes. Blood smears from CBCs yielding IG's will be scanned manually for concordance. If this scan disagrees with the automated IG or if promyelocytes are noted, a manual differential will be performed. Immature Gran Absolute 0.01 0.00 - 0.04 x10(3)/[facility] Blood 08/19/2022 7:10 AM EDT 08/19/2022 7:22 AM EDT Narrative Resulting Agency Comment Spec In Lab Kavitha Rai MD HEMATOLOGY ORDERABLE S [facility] [place] [address] * (ABNORMAL) Hemogram (08/19/2022 7:10 AM EDT) White Blood Cell 6.8 4.0 - 9.5 x10(3)/mc L [facility] Red Blood Cell 4.68 4.00 - 5.21 x10(6)/[facility] LABORATORY Hemoglobin 13.0 11.7 - 15.5 g/dL [facility] Hematocrit 38.5 35.7 - 45.8 % [facility] Mean Cell Volume 82.3(L) 82.6 - 94.4 fL [facility] Mean Cell Hemoglobin 27.8 27.1 - 32.0 pg [facility] Mean Cell Hemoglobin Concentration 33.8 31.7 - 35.0 g/dL [facility] Platelet 253 145 - 357 x10(3)/[facility] LABORAT[facility] RDW Standard Deviation 36.7(L) 37.0 - 46.0 fL [facility] RDW coefficient of variation 12.2 11.5 - 14.1 % [facility] Mean Platelet Volume 10.4 7.6 - 12.9 fL [facility] NRBC% auto 0.0 % [facility] NRBC Absolute 0.000 0.000 - 0.000 x10(3)/ L [facility] Blood 08/19/2022 7:10 AM EDT 08/19/2022 7:22 AM EDT Narrative Resulting Agency Comment Spec In Lab Kavitha Rai MD HEMATOLOGY ORDERABLE S Performing Organization Address [facility] Co de Phone Number [facility] [place] [address] * (ABNORMAL) CEA (08/19/2022 7:10 AM EDT) Carcinoembryonic Antigen 14.0(H) <=3.8 ng/mL [facility] Comment: Reference range: ??(20-69 years): Non-smoker: ??less than or equal to 3.8 ng/mL Smoker: ??less than 5.5 ng/ml This result was generated using a Pluto.TVas immunoassay. ??Results obtained from other methods or manufacturers cannot be used interchangeably with this method. Blood 08/19/2022 7:10 AM EDT 08/19/2022 7:22 AM EDT Narrative Resulting Agency Comment Spec In Lab Kavitha Rai MD CHEMISTRY ORDERABLES Performing Organization Address [facility] Co de Phone Number [facility] [place] [address] * (ABNORMAL) Comprehensive metabolic panel (non-fasting) (08/19/2022 7:10 AM EDT) Glucose 109 65 - 199 mg/dL [facility] Comment:Diabetes: >=200 mg/d L plus symptoms Blood Urea Nitrogen 16 8 - 18 mg/dL [facility] Creatinine 1.00 0.70 - 1.20 mg/dL [facility] Sodium 139 135 - 145 mmol/L [facility] Potassium 3.7 3.5 - 5.0 mmol/L [facility] Comment: Please note: ??Patients with WBC >100,000 may have falsely elevated Potassium levels. ??For accurate Potassium quantification in these patients send serum separator tube (gold top) for subsequent determinations. ??Contact the Clinical Chemistry Laboratory if there are any questions. Chloride 105 98 - 107 mmol/L [facility] Carbon Dioxide 24 22 - 31 mmol/L [facility] Anion Gap 10 5 - 15 mmol/L [facility] Calcium 9.3 8.5 - 10.5 mg/dL [facility] Protein, Total 6.8 6.1 - 8.0 g/dL [facility] Albumin 3.9 3.2 - 5.2 g/dL [facility] Aspartate Aminotransferase 31(H) 0 - 30 unit/L [facility] Alanine Aminotransferase 44(H) 0 - 30 unit/L [facility] Alkaline Phosphatase 136(H) 35 - 105 unit/L [facility] Bilirubin, Total 0.4 0.2 - 1.3 mg/dL [facility] Est Glomerular Filtration Rate 72 >=60 mL/min/1. 73 m?? [facility] [...] and symptoms in addition to eGFR. Blood 08/19/2022 7:10 AM EDT 08/19/2022 7:22 AM EDT Narrative Resulting Agency Comment Spec In Lab Kavitha Rai MD CHEMISTRY ORDERABLES Performing Organization Address City/State/[facility] Co de Phone Number [facility] [place] [address] * (ABNORMAL) Cancer antigen 15-3 (08/19/2022 7:10 AM EDT) CA 15-3 118(H) <=25 unit/mL [facility] Comment: This result was generated using a Deepak Dequan immunoassay. ??Results obtained from other methods or manufacturers cannot be used interchangeably with this method. Blood 08/19/2022 7:10 AM EDT 08/19/2022 7:22 AM EDT Narrative Resulting Agency Comment Spec In Lab Kavitha Rai MD CHEMISTRY ORDERABLES [facility] [place] [address] documented in this encounter Visit Diagnoses Diagnosis Malignant neoplasm of overlapping sites of right breast in female, estrogen receptor negative documented in this encounter Care Teams Operations Chief Relationship Specialty Start Date End Date Ryan Betancourt MD [address] [place] [phone] PCP - General Family Medicine 07/29/22 documented as of this encounter
--- OUTSIDE RECORDS SUMMARY | 2024-06-01 20:45 | XMS_ITS | Encounter Summary ---
Author Organization [facility] Address [facility] [place] [address] Care Team Providers Care Wireline Field Operator Name Role Phone Ryan Betancourt MD Primary Care Provider [phone] Encounter Details Date Type Department Care Team (Latest Contact Info) Description 08/19/2022 Travel Social History Tobacco Use Types Packs/Day [...] AM EST Hospital Encounter [place] [address] Consuelo Joyce APRN [facility] [place] [address] 06/14/2024 8:45 AM EST Appointment XRay at [address] [place] [phone] Kavitha Rai MD [facility] [place] [address] 06/14/2024 9:45 AM EST Appointment Hematology [place] [address] 06/14/2024 11:00 AM EST Appointment [place] [address] Consuelo Joyce APRN [facility] [place] [address] 06/14/2024 1:00 PM EST Office Visit Hematology [place] [phone] Kavitha Rai MD [facility] [place] [address] 06/14/2024 2:30 PM EST Appointment Hematology [place] [address] 07/05/2024 10:30 AM EDT Appointment Hematology and Oncology at [place] [address] 07/05/2024 11:30 AM EDT Office Visit Hematology and Oncology at [place] [phone] Consuelo Joyce APRN [facility] [place] [address] 07/05/2024 1:00 PM EDT Appointment Hematology and Oncology at [place] [address] 08/16/2024 9:20 AM EDT Office Visit Ophthalmology at [place] [phone] Luz Jose, OD [facility] [place] [address] 01/14/2025 8:30 AM EDT Office Visit Psychiatry and Behavioral Health at [place] [address] Anna Oneill, PhD [facility] [place] [address] documented as of this encounter Visit Diagnoses Not on filedocumented in this encounter Care Teams Wireline Field Operator Relationship Specialty Start Date End Date Ryan Betancourt MD [address] [place] [phone] PCP - General Family Medicine 07/29/22 documented as of this encounter
--- OUTSIDE RECORDS SUMMARY | 2024-06-01 20:45 | XMS_ITS | Encounter Summary ---
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 Role Phone Ryan Betancourt MD Primary Care Provider [phone] Reason for Referral * Diagnostic Test (Routine) - Closed Specialty Diagnoses / Procedures Referred By Contdede t Referred To Contact Radiology Diagnoses Malignant neoplasm of overlapping sites of right breast in female, estrogen receptor negative Procedures CT Guided Biopsy Liver Ryan Dumont MD [facility] [place] [address] [facility] [place] [address] Referral ID Status Reason Start Date Expiration Date V isits Requested Visits Authorized [id number] Closed Specialty Service Requested 08/12/2022 02/12/2024 1 1 * Diagnostic Test (Routine) - Closed Specialty Diagnoses / Procedures Referred By [facility] t Referred To Contact Radiology Diagnoses Malignant neoplasm of left breast in female, estrogen receptor positive, unspecified site of breast Procedures IR Biopsy Liver Percutaneous Dian Lora PA [facility] DR HEMATOLOGY [place] [address] [facility] [place] [address] Referral ID Status Reason Start Date Expiration Date V isits Requested Visits Authorized [id number] Closed Specialty Service Requested 07/29/2022 01/29/2024 1 1 * Diagnostic Test (Routine) - Closed Specialty Diagnoses / Procedures Referred By Ciaran lopez Referred To Contact Radiology Diagnoses Malignant neoplasm of left breast in female, estrogen receptor positive, unspecified site of breast Procedures IR Mediport Placement Dian Lora PA [facility] HEMATOLOGY [place] [address] [facility] [place] [address] Referral ID Status Reason Start Date Expiration Date V isits Requested Visits Authorized [id number] Closed Specialty Service Requested 07/29/2022 01/29/2024 1 1 Reason for Visit * Diagnostic Test (Routine) - Closed Specialty Diagnoses / Procedures Referred By Ciaran lopez Referred To Contact Radiology Diagnoses Malignant neoplasm of left breast in female, estrogen receptor positive, unspecified site of breast Procedures IR Mediport Placement Dian Lora PA [facility] DR HEMATOLOGY [place] [address] [place] [address] Referral ID Status Reason Start Date Expiration Date V isits Requested Visits Authorized [id number] Closed Specialty Service Requested 07/29/2022 01/29/2024 1 1 Encounter Details Date Type Department Care Team (Latest Contact Info) Description 08/12/2022 6:20 AM EDT - 08/12/2022 11:59 PM EDT Hospital [place] [address] Kavitha Rai MD [facility] DR HEMATOLOGY [place] [address] Malignant neoplasm of left breast in female, estrogen receptor positive, unspecified site of breast; Malignant neoplasm of overlapping sites of right [...] Sign Reading Time Taken Comments Blood Pressure 108/63 08/12/2022 9:30 AM EDT Pulse 79 08/12/2022 9:10 AM EDT Temperature 36.2 ??C (97.1 ??F) 08/12/2022 9:22 AM ED T Respiratory Rate 20 08/12/2022 9:30 AM EDT Oxygen Saturation 99% 08/12/2022 9:30 AM EDT Inhaled Oxygen Concentration - - Weight - - Height - - Body Mass Index - - documented in this encounter Discharge Instructions * Discharge Instructions* Cirilo Rivera RN - 08/12/2022 8:27 AM EDT Department of Vascular and Interventional [...] provided with an ID card stating the director regulatory compliance and type of port you have. Please carry this with you in a safe place. Bandage: There is a sterile dressing over the port site consisting of small gauze with a clear dressing (Tegaderm or [id number] ). This dressing should be left in place for 48 hours. If the clear dressing becomes loose you should place tape over the edges to secure it in place. Note: If you have steri-strips beneath your dressing, simply allow them to fall off. Do not peel them off. There may be [place]-ov[place] (skin glue) also, allow this to flake [...] or greater than 101F) and/or shaking chills When to call the Interventional Radiology Department: Please call with any questions or concerns. If it is during regular office hours, please call [phone]. If it is after regular office hours, or on weekends or holidays, please call [phone] and ask to speak to the Surveying Crew Rodman clinical education academic coordinator for Interventional Radiology. XXX You have received [...] as of this encounter Progress Notes * Tamela Reyes RN - 08/12/2022 11:59 PM EDT Interventional and Vascular Radiology Post-Procedure Call Name: Soy San Age: 41 y.o. Sex: Female Date of : 1980 (home) Telephone Information: PCP: Ryan Betancourt MD [phone] Date/Time of call: August 13, 2022/8:28 AM Procedure: Mediport Placement Procedural Provider: Dr. Dumont Contact with patient or if not, with whom?: Spoke with patient. Are you having pain related to your procedure now?: Yes Some discomfort, utilizing tylenol and ice. Are you having any swelling or bleeding from the site? No Are you having any other problems related to your procedure?: No Comments: Did you understand the discharge instructions given and do you have any questions?: Yes Comments: No questions. Do you have any comments about your Nurse or Provider or the care you received?: No Nurse Comments: * Cirilo Rivera RN - 08/12/2022 8:24 AM EDT ANGIO NURSING DATABASE Name: Soy San Date of : 1980 AGE: 41 y.o. Address: [address] [place] [id number] (home) Mobile: Telephone Information: Referring Provider: Dian Lora REASON FOR VISIT: Mediport Order Questions Answers Where will study be performed? [facility] Radiology [120] Is the patient on anticoagulant / antiplatelet therapy ? No Reason for exam and clinical history: chemo Is the patient ? Unknown Does patient require sedation? None Planned procedure: MediPort placement Labs to be performed day of procedure: No labs Sedation: Moderate (Conscious sedation) Prophylactic antibiotic : None Contrast: No contrast Additional medications for procedure: Lidocaine Planned access site: Right IJ Position: Supine Consent: Pending Medications to discontinue (and days held): None Case Urgency:: G3- Elective Outpatient intervention over14 days REASON FOR VISIT: Liver BX Question Answer Where will study be performed? [facility] Radiology Reason for exam and clinical history: new HER 2 positive breast cancer with liver mets on PET. Needhistologic confirmation of disease. Is the patient ? Unknown Is the patient on anticoagulant / antiplatelet therapy ? No Plan: Planned procedure: Ultrasound-guided liver biopsy, targeted lesion Labs to be performed day of procedure: No labs Sedation: Moderate (Conscious sedation) Prophylactic antibiotic : None Contrast: No contrast Additional medications for procedure: Lidocaine Planned access site: Right upper quadrant Position: Supine Consent: Pending Medications to discontinue (and days held): None Case Urgency:: G3- Elective Outpatient intervention over14 days ?? Allergies Allergen Reactions ??? Milk Containing Products [...] 250 mcg IV, Versed 5 mg IV 0804 to procedure room IR 1 via stretcher. Onto table Supine. All monitors, O2, safety strap in place. Meds per protocol. Needle OUT: Laboratory Results: Lab Results Component Value Date CREATININE 0.87 07/28/2022 Lab Results Component Value Date K 4.0 07/28/2022 Lab Results Component Value Date PLATELET 304 07/28/2022 documented in this encounter H&P Notes * Chapin Samuel PA - 08/12/2022 7:13 AM EDT Interventional Radiology Interval H&P: Procedure: Chest port, liver biopsy Update to H&P: The patient's history and physical exam have been reviewed and completed. There has been NO interval change from that of the pre-procedural note done within the last 30 days. Thereis NO change in the procedural plan. Meds: Current medications reviewed. No medications held. Labs: No new relevant labs. Physical Exam: Cardiovascular: Regular, Normal Pulmonary: Breath sounds clear to auscultation The planned procedure (and sedation plan if appropriate), its benefits and risks, and alternatives were discussed with the patient. The patient consented to the procedure. The indications for the procedure are still present. Pre-sedation Assessment: Sedation Plan: moderate (conscious sedation) ASA: 2: Patient with mild systemic disease Mallampati: II: tonsillar pillars are blocked by the tongue Confirm NPO status: Yes History of anesthetic complications: No Current medications reviewed: Yes Allergies reviewed: Yes Source Note - Javier Bowman MD - 07/30/2022 8:11 AM EDT INTERVENTIONAL RADIOLOGY FOCUSED H&P and PRE-PROCEDURE NOTE: PCP: Ryan Betancourt MD Referring Provider: Dian Lora Planned Procedure: Planned procedure: MediPort placement Procedure Indication: Durable central venous access for treatment Procedure Request: Procedure request received through the Interventional Radiology eDH order queue. Presenting Diagnosis/ Complaint: Soy San is a 41 y.o. female with new right breast cancer and suspected osseous and hepatic metastases referred for Mediport placement, first infusion TBD. Patient will also undergo targeted hepatic biopsy, please refer to separate H&P. Past Medical/Surgical History: Patient Active Problem List Diagnosis Code ??? Malignant neoplasm of overlapping sites of breast in female, estrogen receptor negative C50.819, Z17.1 No past medical history on file. Past Surgical History: Procedure Laterality Date ??? MAMMO US BIOPSY LYMPH NODE RIGHT Right 07/06/2022 Mammo US Biopsy Lymph Node Right 07/06/2022 Akhil Fregoso MD [facility] RAD MAMMOGRAPHY ??? MAMMO US BIOPSY RIGHT Right 07/06/2022 Mammo Us Biopsy Right 07/06/2022 Akhil Fregoso MD [facility] RAD MAMMOGRAPHY Medications: No current outpatient medications on file prior to visit. No current facility-administered medications on file prior to visit. Allergies: Milk containing products and Other [unclassified drug] Social History and Habits: Social History Socioeconomic History ??? Marital status: Spouse name: Not on file ??? Number of children: Not on file ??? Years of education: Not on file ??? Highest education level: Not on file Occupational History ??? Not on file Tobacco Use ??? Smoking status: Former Years: 1.00 Types: Cigarettes Quit date: 1996 Years since quittin.2 ??? Smokeless tobacco: Former Vaping Use ??? Vaping Use: Never used Substance and Sexual Activity ??? Alcohol use: Not on file ??? Drug use: Not on file ??? Sexual activity: Not on file Other [...] the Last Year: No Significant Family History: No family history on file. Pertinent ROS: as per HPI Labs: Lab Results Component Value Date WBC 8.2 07/28/2022 HCT 40.6 07/28/2022 PLATELET 304 07/28/2022 BUN 18 07/28/2022 CREATININE 0.87 07/28/2022 ALKPHOS 115 (H) 07/28/2022 AST 19 07/28/2022 ALBUMIN 4.0 07/28/2022 BILITOT 0.3 07/28/2022 ALT 13 07/28/2022 PROT 6.9 07/28/2022 K 4.0 07/28/2022 Imaging: in EDH Physical Exam: Pending (to be performed in angio the day of procedure) ASA: Pending (to be assessed in angio the day of procedure) Mallampati Class: Pending (to be assessed in angio the day of procedure) Assessment: 41 y.o. female with metastatic right breast cancer presenting for Mediport placement and targeted hepatic biopsy (please see separate H&P dated 07/29/2022 for liver biopsy). Plan: Planned procedure: MediPort placement Labs to be performed day of procedure: No labs Sedation: Moderate (Conscious sedation) Prophylactic antibiotic : None Contrast: No contrast Additional medications for procedure: Lidocaine Planned access site: Left IJ (right breast cancer) Position: Supine Consent: Pending Medications to discontinue (and days held): None Case Urgency:: G3- Elective Outpatient intervention over14 days 07/30/2022 documented in this encounter Procedure Notes * Ryan Dumont MD - 08/12/2022 9:13 AM EDT IR PROCEDURE NOTE Procedure: Chest port placement and limited liver ultrasound. Indication for Procedure: Per Soy Painting Mena is a 41 y.o. female with new right breast cancer and suspected osseous andhepatic metastases referred for Mediport placement, first infusion TBD. Patient will also undergo targeted hepatic biopsy... Procedure events and findings: After obtaining informed consent patient was positioned supine on procedure table. Right neck base and upper chest prepped and draped with maximum sterile barrier technique used throughout the procedure. Due to the painful nature of the procedure, patient received split doses of intravenous fentanyl and versed from the IR nurse while pulse, pressure, and oxygen saturation were continuously monitored. Local anesthesia provided with 1% lidocaine. Right IJ accessed with micropuncture technique under U/S guidance and a 4Fr sheath placed. After additional local anesthetic with 1% lidocaine and 1% lidocaine with epinephrine, a transverse skin incision was made and a port pocket created with blunt diss ection in the upper chest. Single lumen CT injection compatible port was connected to the port catheter. The port catheter (8Fr) was tunneled from the port pocket to the neck entry site and the port positioned in the port pocket. The guide wire was used to measure the amount of catheter to be placed. The 4Fr sheath was exchanged for a peel- away sheath and the port catheter placed via the peel-away with catheter tip positioned in RA under fluoroscopic guidance. Catheter tip positioned in caudal right atrium rather than mid with expectation that catheter will retract when Ms. San is upright. Port was accessed and aspirated and flushed readily. The port was then loaded with heparin solution. The neck incision was closed with tissue adhesive. The pocket incision was closed with interrupted deep 2-0 resorbable suture, superficial 4-0 resorbable suture and tissue adhesive. Liver U/S performed with plan to biopsy one of the lesions noted in the liver on PET/CT of 07/28/22.Even with reference to the PET images I was unable to identify a lesion to biopsy, will plan for attempt with CT. Medications: Fentanyl 250 mcg IV, Versed 5mg IV, 1% Lidocaine <10ccs subcutaneous. Est Blood Loss: <5cc. Complications: No immediate. Impression: 1. Patent right internal jugular vein. 2. Placement of CT injection compatible single lumen chest port via right IJ, catheter tip in RA, port ready for use. 3. Unable to identify a target for biopsy in the liver by U/S. Will plan to attempt liver biopsy using CT guidance. Resident/Fellow: None. Attending: Dr. Tim Khalil performed this procedure. Remi was present during the intraservice time as documented by the IR Nurse. documented in this encounter Plan of Treatment Upcoming Encounters Date Type Department Care Team (Late st Contact Info) Description 06/14/2024 8:00 AM EST Hospital Encounter [place] [phone] Consuelo Joyce APRN [facility] [place] [address] 06/14/2024 8:45 AM EST Appointment XRay at [address] [place] [phone] Kavitha Rai MD [facility] HEMATOLOG[place] [address] 06/14/2024 9:45 AM EST Appointment Hematology [place] [address] 06/14/2024 11:00 AM EST Appointment Nuclear Medicine at [address] Consuelo Joyce APRN [facility] [place] [address] 06/14/2024 1:00 PM EST Office Visit Hematology and Oncology at [place] [phone] Kavitha Rai MD [facility] DR HEMATOLOGY [place] [address] 06/14/2024 2:30 PM EST Appointment Hematology and Oncology at [place] [phone] 07/05/2024 10:30 AM EDT Appointment Hematology and Oncology at [place] [phone] 07/05/2024 11:30 AM EDT Office Visit Hematology and Oncology at [place] [phone] Consuelo Joyce [facility] [place] [address] 07/05/2024 1:00 PM EDT Appointment Hematology [place] [address] 08/16/2024 9:20 AM EDT Office Visit Ophthalmology at [place] [phone] Luz Jose OD [facility] [place] [address] 01/14/2025 8:30 AM EDT Office Visit Psychiatry [place] [address] Anna Oneill, PhD [facility] [place] [address] documented as of this encounter Procedures Procedure Name Priority Date/Time Associated Diagnosis Comments IR MEDIPORT PLACEMENT Routine 08/12/2022 9:18 AM EDT Malignant neoplasm of left breast in female, estrogen receptor positive, unspecified site of breast IR BIOPSY LIVER PERCUTANEOUS - NON-FOCAL PARENCHYMA Routine 08/12/2022 9:18 AM EDT Malignant neoplasm of left breast in female, estrogen receptor positive, unspecified site of breast SPECIMEN TO PATHOLOGY Routine 08/12/2022 7:14 AM EDT documented in this encounter Results * CT Guided Biopsy Liver (09/01/2022 9:03 AM EDT) Anatomical Region Laterality Modality Computed Tomogra phy Narrative 09/01/2022 9:17 AM EDT Images from the original result were not included. IR PROCEDURE NOTE ?? Procedure: CT guided liver biopsy. ?? Indication for Procedure: Per Kierra MINA, Soy San??is a 41 y.o.??female??with PMH of right breast cancer with recent??PET showing metastatic disease in liver but unable to find a lesion with U/S,??who presents to Interventional Radiology to undergo??CT guided liver biopsy. ?? Procedure events and findings: After obtaining informed consent, pt was positioned supine on the CT table. Initial non-contrast CT was obtained showing an anterior superior right hepatic lobe hypodensity felt to correspond with a site of uptake on the PET/CT of 07/28/2022. ??A site for bx was chosen and identified on the skin with the assistance of the CT laser lights. ??Due to the painful nature of the procedure, patient received split doses of intravenous fentanyl and versed from the IR nurse while pulse, pressure, and oxygen saturation were continuously monitored. ?? The skin was marked and prepped, maximum sterile barrier technique was used throughout. ??Local anesthesia provided with 1% lidocaine, a 19ga coaxial needle was directed to the lesion with CT fluoro guidance. Multiple 20ga core biopsies were obtained. ??Post scan performed with no evidence of complication. ?? Medications: Fentanyl 125 mcg IV, Versed 2.5mg IV, 1% Lidocaine <10ccs subcutaneous. ?? Est Blood Loss: <5cc. ?? Complications: ??No immediate. ?? Impression: ?? 1. ?? Anterior superior right hepatic lobe hypodensity felt to correspond with a site of uptake on the PET/CT of 07/28/2022. ?? 2. ??CT-guided biopsy with multiple 20-gauge cores obtained. ?? 3. ??Postbiopsy CT without evidence of complication. ?? Resident/Fellow: None. ?? Attending: I, Dr. Dumont performed this procedure. ??I was present during the intraservice time as documented by the IR Nurse. ? Ryan Dumont MD IMG CT ORDERABLES * IR Biopsy Liver Percutaneous (08/12/2022 9:18 AM EDT) Anatomical Region Laterality Modality Abdomen X-Ray Angiograph y Narrative 08/12/2022 9:35 AM EDT IR PROCEDURE NOTE ?? Procedure: Chest port placement and limited liver ultrasound. ?? Indication for Procedure: Per Soy Painting??is a 41 y.o.??female??with new right breast cancer and suspected osseous and hepatic metastases referred for Mediport placement, first infusion TBD. ??Patient will also undergo targeted hepatic biopsy... ?? Procedure events and findings: After obtaining informed consent patient was positioned supine on procedure table. ??Right neck base and upper chest prepped and draped with maximum sterile barrier technique used throughout the procedure. ??Due to the painful nature of the procedure, patient received split doses of intravenous fentanyl and versed from the IR nurse while pulse, pressure, and oxygen saturation were continuously monitored. ? Local anesthesia provided with 1% lidocaine. Right IJ accessed with micropuncture technique under U/S guidance and a 4Fr sheath placed. ??After additional local anesthetic with 1% lidocaine and 1% lidocaine with epinephrine, a transverse skin incision was made and a port pocket created with blunt dissection in the upper chest. ?? Single lumen CT injection compatible port was connected to the port catheter. ??The port catheter (8Fr) was tunneled from the port pocket to the neck entry site and the port positioned in the port pocket. The guide wire was used to measure the amount of catheter to be placed. ??The 4Fr sheath was exchanged for a peel-away sheath and the port catheter placed via the peel-away with catheter tip positioned in RA under fluoroscopic guidance. ??Catheter tip positioned in caudal right atrium rather than mid with expectation that catheter will retract when Ms. Patridge is upright. ?? Port was accessed and aspirated and flushed readily. ??The port was then loaded with heparin solution. ?? The neck incision was closed with tissue adhesive. ??The pocket incision was closed with interrupted deep 2-0 resorbable suture, superficial 4-0 resorbable suture and tissue adhesive. ? Liver U/S performed with plan to biopsy one of the lesions noted in the liver on PET/CT of 07/28/22. ??Even with reference to the PET images I was unable to identify a lesion to biopsy, will plan for attempt with CT. ?? Medications: Fentanyl 250 mcg IV, Versed 5mg IV, 1% Lidocaine <10ccs subcutaneous. ?? Est Blood Loss: <5cc. ?? Complications: ??No immediate. ?? Impression: ?? 1. ??Patent right internal jugular vein. ?? 2. ??Placement of CT injection compatible single lumen chest port via right IJ, catheter tip in RA, port ready for use. ?? 3. ??Unable to identify a target for biopsy in the liver by U/S. ??Will plan to attempt liver biopsy using CT guidance. ?? Resident/Fellow: ??None. ?? Attending: I, Dr. Dumont performed this procedure. ??I was present during the intraservice time as documented by the IR Nurse.?? Kavitha Rai MD IMG IR ORDERABLES * IR Mediport Placement (08/12/2022 9:18 AM EDT) Anatomical Region Laterality Modality X-Ray Angiograph y Narrative 08/12/2022 9:32 AM EDT IR PROCEDURE NOTE ?? Procedure: Chest port placement and limited liver ultrasound. ?? Indication for Procedure: Per Dr. Bowman, Soy San??is a 41 y.o.??female??with new right breast cancer and suspected osseous and hepatic metastases referred for Mediport placement, first infusion TBD. ??Patient will also undergo targeted hepatic biopsy... ?? Procedure events and findings: After obtaining informed consent patient was positioned supine on procedure table. ??Right neck base and upper chest prepped and draped with maximum sterile barrier technique used throughout the procedure. ??Due to the painful nature of the procedure, patient received split doses of intravenous fentanyl and versed from the IR nurse while pulse, pressure, and oxygen saturation were continuously monitored. ? Local anesthesia provided with 1% lidocaine. Right IJ accessed with micropuncture technique under U/S guidance and a 4Fr sheath placed. ??After additional local anesthetic with 1% lidocaine and 1% lidocaine with epinephrine, a transverse skin incision was made and a port pocket created with blunt dissection in the upper chest. ?? Single lumen CT injection compatible port was connected to the port catheter. ??The port catheter (8Fr) was tunneled from the port pocket to the neck entry site and the port positioned in the port pocket. The guide wire was used to measure the amount of catheter to be placed. ??The 4Fr sheath was exchanged for a peel-away sheath and the port catheter placed via the peel-away with catheter tip positioned in RA under fluoroscopic guidance. ??Catheter tip positioned in caudal right atrium rather than mid with expectation that catheter will retract when Ms. San is upright. ?? Port was accessed and aspirated and flushed readily. ??The port was then loaded with heparin solution. ?? The neck incision was closed with tissue adhesive. ??The pocket incision was closed with interrupted deep 2-0 resorbable suture, superficial 4-0 resorbable suture and tissue adhesive. ? Liver U/S performed with plan to biopsy one of the lesions noted in the liver on PET/CT of 07/28/22. ??Even with reference to the PET images I was unable to identify a lesion to biopsy, will plan for attempt with CT. ?? Medications: Fentanyl 250 mcg IV, Versed 5mg IV, 1% Lidocaine <10ccs subcutaneous. ?? Est Blood Loss: <5cc. ?? Complications: ??No immediate. ?? Impression: ?? 1. ??Patent right internal jugular vein. ?? 2. ??Placement of CT injection compatible single lumen chest port via right IJ, catheter tip in RA, port ready for use. ?? 3. ??Unable to identify a target for biopsy in the liver by U/S. ??Will plan to attempt liver biopsy using CT guidance. ?? Resident/Fellow: ??None. ?? Attending: I, Dr. Dumont performed this procedure. ??I was present during the intraservice time as documented by the IR Nurse.?? Kavitha Rai MD IMG IR ORDERABLES * Specimen to Pathology (08/12/2022 7:14 AM EDT) AP Specimen 08/12/2022 7:14 AM EDT 08/12/2022 7:14 AM EDT Narrative [facility] - 08/12/2022 7:14 AM EDT Specimen requisition ordered. ??Separate Pathology report to follow Kavitha Rai MD PATHOLOGY/CYTOLOGY O RDERABLES [facility] [place] [address] documented in this encounter Visit Diagnoses Diagnosis Malignant neoplasm of left breast in female, estrogen receptor positive, unspecified site of breast Malignant neoplasm of overlapping sites of right breast in female, estrogen receptor negative Malignant neoplasm of overlapping sites of breast in female, estrogen receptor negative, unspecified laterality documented in this encounter Administered Medications Inactive Administered Medications - up to 3 most recent administrations Medication Order MAR Action Action Date Dose Rate Site fentaNYL (pf) (50 mcg/mL) multi-dose injection 25-50 mcg 25-50 mcg, Intravenous, EVERY 3 MIN PRN, Starting on Yvette 08/12/22 at 0659, Until Yvette 08/12/22 at 0945, Pain, per unit protocol, For use in [...] mcg/dose, 250 mcg/hour, Angio/IR (Intra-Procedure), Routine Given 08/12/2022 9:03 AM EDT 25 mcg Given 08/12/2022 9:00 AM EDT 25 mcg Given 08/12/2022 8:51 AM EDT 25 mcg lidocaine (Xylocaine) 1% (10 mg/mL) injection 10 mg 10 mg, Subcutaneous, ONCE, 1 dose, On Yvette 08/12/22 at 0715, For use in Interventional Radiology (IR) only for procedure with direct provider supervision and verbal order., Angio/IR (Intra-Procedure), Routine Given 08/12/2022 8:30 AM EDT 10 mg lidocaine-EPINEPHrine (2% - 1:100,000) injection vial 20 mL 20 mL, Intradermal, ONCE, 1 dose, On Yvette 08/12/22 at 0730, Warning Vesicant/Irritant Medication , Routine Given 08/12/2022 8:30 AM EDT 20 mLs midazolam (pf) (Versed) (1 mg/mL) multi-dose injection 0.5-1 mg 0.5-1 mg, Intravenous, EVERY 3 MIN PRN, Starting on Yvette 08/12/22 at 0659, Until Yvette 08/12/22 at 0945, Sedation, For use in Interventional Radiology (IR) [...] mg/dose, 5 mg/hour., Angio/IR (Intra-Procedure), Routine Given 08/12/2022 9:06 AM EDT 0.5 mg Given 08/12/2022 8:59 AM EDT 0.5 mg Given 08/12/2022 8:51 AM EDT 0.5 mg documented in this encounter Care Teams 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
--- OUTSIDE RECORDS SUMMARY | 2024-06-01 20:45 | XMS_ITS | Encounter Summary ---
Author Organization [facility] Address [facility] [place] [address] Care Team Providers Care Body Technician Name Role Phone Ryan Betancourt MD Primary Care Provider [phone] Encounter Details Date Type Department Care Team (Latest Contact Info) Description 08/17/2022 Travel Social History Tobacco Use Types Packs/Day [...] AM EST Hospital En[place] [address] Consuelo Joyce APRN [facility] [place] [address] 06/14/2024 8:45 AM EST Appointment XRay at [address] [place] [phone] Kavitha Rai MD [facility] [address] [place] [address] 06/14/2024 9:45 AM EST Appointment Hematology [place] [address] 06/14/2024 11:00 AM EST [place]ointment [place] [address] Consuelo Joyce APRN [facility] [place] [address] 06/14/2024 1:00 PM EST Office Visit Hematology [place] [phone] Kavitha Rai MD [facility] [place] [address] 06/14/2024 2:30 PM EST Appointment Hematology [place] [address] 07/05/2024 10:30 AM EDT Appointment Hematology and Oncology at [place] [address] 07/05/2024 11:30 AM EDT Office Visit Hematology and Oncology at [place] [phone] Consuelo Joyce APRN [facility] [place] [address] 07/05/2024 1:00 PM EDT Appointment Hematology and Oncology at [place] [address] 08/16/2024 9:20 AM EDT Office Visit Ophthalmology at [place] [phone] Luz Jose, OD [facility] [place] [address] 01/14/2025 8:30 AM EDT Office Visit Psychiatry and Behavioral Health at [place] [address] Anna Oneill, PhD [facility] [place] [address] documented as of this encounter Visit Diagnoses Not on filedocumented in this encounter Care Teams Body Technician Relationship Specialty Start Date End Date Ryan Betancourt MD [address] [place] [phone] PCP - General Family Medicine 07/29/22 documented as of this encounter
--- OUTSIDE RECORDS SUMMARY | 2024-06-01 20:45 | XMS_ITS | Encounter Summary ---
[place] [address] Care Team Providers Care Consulting Actuary Name Role Phone Ryan Betancourt MD Primary Care Provider [phone] Reason for Referral * Diagnostic Test (Routine) - Closed Specialty Diagnoses / Procedures Referred By Contac t Referred To Contact Radiology Diagnoses Malignant neoplasm of overlapping sites of right breast in female, estrogen receptor negative Procedures IR Other Related Procedures Kierra Buenrostro PA [facility] [place] [address] [facility] [place] [address] Referral ID Status Reason Start Date Expiration Date V isits Requested Visits Authorized [id number] Closed Specialty Service Requested 09/01/2022 03/04/2024 1 1 * Diagnostic Test (Routine) - Closed Specialty Diagnoses / Procedures Referred By Contac t Referred To Contact Radiology Diagnoses Malignant neoplasm of overlapping sites of right breast in female, estrogen receptor negative Procedures CT Guided Biopsy Liver Ryan Dumont MD [facility] [place] [address] [facility] [place] [address] Referral ID Status Reason Start Date Expiration Date V isits Requested Visits Authorized [id number] Closed Specialty Service Requested 08/12/2022 02/12/2024 1 1 Reason for Visit * Diagnostic Test (Routine) - Closed Specialty Diagnoses / Procedures Referred By Ciaran lopez Referred To Contact Radiology Diagnoses Malignant neoplasm of overlapping sites of right breast in female, estrogen receptor negative Procedures CT Guided Biopsy Liver Ryan Dumont MD [facility] [place] [address] [facility] [place] [address] Referral ID Status Reason Start Date Expiration Date V isits Requested Visits Authorized [id number] Closed Specialty Service Requested 08/12/2022 02/12/2024 1 1 Encounter Details Date Type Department Care Team (Latest Contact Info) Description 09/01/2022 7:15 AM EDT - 09/01/2022 10:01 AM EDT Hospital [place] [address] Ryan Dumont MD [facility] DR INTER[place]ION[place] [address] Malignant neoplasm of overlapping sites of breast in female, estrogen receptor negative, unspecified laterality; Malignant neoplasm of overlapping sites of right breast in female, estrogen receptor negative Discharge Disposition: Home Social History Tobacco Use Types Packs/Day Years Used Date Smoking Tobacco: Former Cigarettes 0.3 1 1 - 1996 Smokeless Tobacco: Former Tobacco Cessation:Counseling [...] Sign Reading Time Taken Comments Blood Pressure 99/64 09/01/2022 9:54 AM EDT Pulse 67 09/01/2022 8:55 AM EDT Temperature 36.6 ??C (97.9 ??F) 09/01/2022 9:06 AM ED T Respiratory Rate 16 09/01/2022 9:30 AM EDT Oxygen Saturation 98% 09/01/2022 9:54 AM EDT Inhaled Oxygen Concentration - - Weight - - Height - - Body Mass Index - - documented in this encounter Discharge Instructions * Discharge Instructions* Mignon Parham RN - 09/01/2022 9:15 AM EDT [facility] Vascular and Interventional Radiology Biopsy Discharge Instructions Liver biopsy: call your doctor immediately if you develop a [...] decisions for 24 hours following sedation medications. When to call your healthcare provider: If [...] be reported to you by your primary respiratory care technician or the clinician who ordered the biopsy. Please do not call us for results as we will not have them. If you have not been contacted by your clinician within 5 business days you should call that officefor further information. When to call the Interventional Radiology Department: Please call with any questions or concerns. If it is during regular office hours, please call [phone]. If it is after regular office hours, or on weekends or holidays, please call [phone] and ask to speak to the Commercial Property Manager manager solution for Interventional Radiology. You have received medication during your procedure [...] as of this encounter Progress Notes * Jacqui Messer RN - 08/27/2022 9:26 AM EDT [facility] DATABASE Name: Soy San Date of : 1980 AGE: 41 y.o. [address]: [address] [place] [phone] (home) [phone] (work) Mobile: Telephone Information: Referring Provider: Ryan Dumont REASON FOR VISIT: Order Questions Answers Where will study be performed? [facility] Radiology [120] Is the patient on anticoagulant / antiplatelet therapy ? No Does the patient have any pertinent outside imaging? No Reason for exam and clinical history: breast cancer with PET showing metastatic disease in liver but unable to find a lesion with U/S, planning attempt biopsy with CT guidance. Is the patient ? Unknown Allergies Allergen Reactions ??? Milk Containing Products [...] biopsy ??fentanyl 125 mcg, versed 2.5 mg ?[address] 5 via stretcher. Onto table supine. All monitors, O2, safety strap in place. Meds per protocol. Laboratory Results: Lab Results Component Value Date CREATININE 1.00 08/19/2022 Lab Results Component Value Date K 3.7 08/19/2022 Lab Results Component Value Date PLATELET 253 08/19/2022 documented in this encounter H&P Notes * Kierra Buenrostro PA - 09/01/2022 7:56 AM EDT INTERVENTIONAL RADIOLOGY FOCUSED H&P: Procedure: CT guided liver mass biopsy Update to H&P: The patient's history [...] Note - Kierra Buenrostro PA - 09/01/2022 7:33 AM EDT Images from the original note were not included. Interventional Radiology Focused Pre-procedure H&P: PCP: Ryan Betancourt MD Referring Provider: Ryan Dumont Procedure indication: Breast cancer, liver lesions IR workflow: Procedure request received through Interventional Radiology eDH order queue. Order Questions Answers Where will study be performed? [facility] Radiology [120] Is the patient on anticoagulant / antiplatelet therapy ? No Does the patient have any pertinent outside imaging? No Reason for exam and clinical history: breast cancer with PET showing metastatic disease in liver but unable to find a lesion with U/S, planning attempt biopsy with CT guidance. Is the patient ? Unknown History of Present Illness: Per chart review, Soy San is a 41 y.o. female with PMH of right breast cancer with recent PET showing metastatic disease in liver but unable to find a lesion with U/S, who presents to Interventional Radiology to undergo CT guided liver biopsy. Remainder of patient's medical and surgical history, allergies, medications, and social/family history obtained below as previously outlined in patient's medical record. IR History: Date/Procedure Meds Given/Comments 08/12/2022 Mediport Placement, Sensitive to pain, periods of apnea throughout procedure, VS normal.?? Fentanyl 250 mcg IV, Versed 5 mg IV ? Anticoagulation/Antiplatelet: None listed Labs: Lab Results Component Value Date HGB 13.4 09/01/2022 HCT 40.0 09/01/2022 WBC 9.0 09/01/2022 PLATELET 193 09/01/2022 INR 1.1 09/01/2022 BUN 16 08/19/2022 CREATININE 1.00 08/19/2022 ALBUMIN 3.9 08/19/2022 BILITOT 0.4 08/19/2022 AST 31 (H) 08/19/2022 ALT 44 (H) 08/19/2022 ALKPHOS 136 (H) 08/19/2022 Allergies: Milk containing products and Other [unclassified drug] Imaging: PET/CT 07/28/22 Assessment: 41 y.o. female with breast cancer with likely liver metastases presenting to Interventional Radiology for CT guided liver biopsy. Medications: Current Outpatient Medications on File Prior [...] as needed for Nausea. 30 tablet 3 No current facility-administered medications on file prior to encounter. Past Medical/Surgical history: Patient Active Problem List Diagnosis Code ??? Malignant neoplasm of overlapping sites of breast in female, estrogen receptor negative C50.819, Z17.1 No past medical history on file. Past Surgical History: Procedure Laterality Date ??? IR BIOPSY LIVER PERCUTANEOUS 08/12/2022 IR Biopsy Liver Percutaneous 08/12/2022 Ryan Dumont MD [facility] INTERVENTIONL RAD ??? IR MEDIPORT PLACEMENT 08/12/2022 IR Mediport Placement 08/12/2022 Ryan Dumont MD [facility] INTERVENTIONL RAD ??? MAMMO US BIOPSY LYMPH NODE RIGHT Right 07/06/2022 Mammo US Biopsy Lymph Node Right 07/06/2022 Akhil Fregoso MD [facility] RAD MAMMOGRAPHY ??? MAMMO US BIOPSY RIGHT Right 07/06/2022 Mammo Us Biopsy Right 07/06/2022 Akhil Fregoso MD [facility] RAD MAMMOGRAPHY Social History and Habits: Social [...] day of procedure) 09/01/2022 Kierra Buenrostro PA-C * Kierra Buenrostro PA - 09/01/2022 7:33 AM EDT Images from the original note were not included. Interventional Radiology Focused Pre-procedure H&P: PCP: Ryan Betancourt MD Referring Provider: Ryan Dumont Procedure indication: Breast cancer, liver lesions IR workflow: Procedure request received through Interventional Radiology eDH order queue. Order Questions Answers Where will study be performed? [facility] Radiology [120] Is the patient on anticoagulant / antiplatelet therapy ? No Does the patient have any pertinent outside imaging? No Reason for exam and clinical history: breast cancer with PET showing metastatic disease in liver but unable to find a lesion with U/S, planning attempt biopsy with CT guidance. Is the patient ? Unknown History of Present Illness: Per chart review, Soy San is a 41 y.o. female with PMH of right breast cancer with recent PET showing metastatic disease in liver but unable to find a lesion with U/S, who presents to Interventional Radiology to undergo CT guided liver biopsy. Remainder of patient's medical and surgical history, allergies, medications, and social/family history obtained below as previously outlined in patient's medical record. IR History: Date/Procedure Meds Given/Comments 08/12/2022 Mediport Placement, Sensitive to pain, periods of apnea throughout procedure, VS normal.?? Fentanyl 250 mcg IV, Versed 5 mg IV ? Anticoagulation/Antiplatelet: None listed Labs: Lab Results Component Value Date HGB 13.4 09/01/2022 HCT 40.0 09/01/2022 WBC 9.0 09/01/2022 PLATELET 193 09/01/2022 INR 1.1 09/01/2022 BUN 16 08/19/2022 CREATININE 1.00 08/19/2022 ALBUMIN 3.9 08/19/2022 BILITOT 0.4 08/19/2022 AST 31 (H) 08/19/2022 ALT 44 (H) 08/19/2022 ALKPHOS 136 (H) 08/19/2022 Allergies: Milk containing products and Other [unclassified drug] Imaging: PET/CT 07/28/22 Assessment: 41 y.o. female with breast cancer with likely liver metastases presenting to Interventional Radiology for CT guided liver biopsy. Medications: Current Outpatient Medications on File Prior [...] as needed for Nausea. 30 tablet 3 No current facility-administered medications on file prior to encounter. Past Medical/Surgical history: Patient Active Problem List Diagnosis Code ??? Malignant neoplasm of overlapping sites of breast in female, estrogen receptor negative C50.819, Z17.1 No past medical history on file. Past Surgical History: Procedure Laterality Date ??? IR BIOPSY LIVER PERCUTANEOUS 08/12/2022 IR Biopsy Liver Percutaneous 08/12/2022 Ryan Dumont MD [facility] INTERVENTIONL RAD ??? IR MEDIPORT PLACEMENT 08/12/2022 IR Mediport Placement 08/12/2022 Ryan Dumont MD [facility] INTERVENTIONL RAD ??? MAMMO US BIOPSY LYMPH NODE RIGHT Right 07/06/2022 Mammo US Biopsy Lymph Node Right 07/06/2022 Akhil Fregoso MD [facility] RAD MAMMOGRAPHY ??? MAMMO US BIOPSY RIGHT Right 07/06/2022 Mammo Us Biopsy Right 07/06/2022 Akhil Fregoso MD [facility] RAD MAMMOGRAPHY Social History and Habits: Social [...] Kierra Buenrostro PA-C documented in this encounter Procedure Notes * Ryan Dumont MD - 09/01/2022 9:02 AM EDT Images from the original note were not included. IR PROCEDURE NOTE Procedure: CT guided liver biopsy. Indication for Procedure: Per Soy Leyva Mena is a 41 y.o. female with PMH of right breast cancer with recent PET showing metastatic disease in liver but unable to find a lesion with U/S, who presents to Interventional Radiology to undergo CT guided liver biopsy. Procedure events and findings: After obtaining informed consent, pt was positioned supine on the CTtable. Initial non-contrast CT was obtained showing an anterior superior right hepatic lobe hypodensity felt to correspond with a site of uptake on the PET/CT of 07/28/2022. A site for bx was chosen and identified on the skin with the assistance of the CT laser lights. Due to the painful nature of the procedure, patient received split doses of intravenous fentanyl and versed from the IR nurse while pulse, pressure, and oxygen saturation were continuously monitored. The skin was marked and prepped, maximum sterile barrier technique was used throughout. Local anesthesia provided with 1% lidocaine, a 19ga coaxial needle was directed to the lesion with CT fluoro guidance. Multiple 20ga core biopsies were obtained. Post scan performed with no evidence of complication. Medications: Fentanyl 125 mcg IV, Versed 2.5mg IV, 1% Lidocaine <10ccs subcutaneous. Est Blood Loss: <5cc. Complications: No immediate. Impression: 1. Anterior superior right hepatic lobe hypodensity felt to correspond with a site of uptake on thePET/CT of 07/28/2022. 2. CT-guided biopsy with multiple 20-gauge cores obtained. 3. Postbiopsy CT without evidence of complication. Resident/Fellow: None. Attending: Remi, Dr. Dumont performed this procedure. I was present during the intraservice time as documented by the IR Nurse. documented in this encounter Plan of Treatment Upcoming Encounters Date Type Department Care Team (Late st Contact Info) Description 06/14/2024 8:00 AM EST Hospital Encounter Nuclear Medicine at [place] [phone] [facility] [place] [address] 06/14/2024 8:45 AM EST Appointment XRay at [address] [place] [phone] Kavitha Rai MD [facility] DR HEMATOLOGY [place] [address] 06/14/2024 9:45 AM EST Appointment Hematology [place] [phone] 06/14/2024 11:00 AM EST Appointment [place] [phone] [facility] [place] [address] 06/14/2024 1:00 PM EST Office Visit Hematology [place] [phone] Kavitha Rai MD [facility] DR HEMATOLOGY [place] [address] 06/14/2024 2:30 PM EST Appointment Hematology and Oncology at [place] [phone] 07/05/2024 10:30 AM EDT Appointment Hematology and Oncology at [place] [phone] 07/05/2024 11:30 AM EDT Office Visit Hematology and Oncology at [place] [phone] Consuelo Joyce APRN [facility] [place] [address] 07/05/2024 1:00 PM EDT Appointment Hematology and Oncology at [place] [phone] 08/16/2024 9:20 AM EDT Office Visit Ophthalmology at [place] [address] Lu[address] Jose, [facility] [place] [address] 01/14/2025 8:30 AM EDT Office Visit Psychiatry and Behavioral Health at [place] [phone] Anna Oneill, PhD [facility] [place] [address] documented as of this encounter Procedures Procedure Name Priority Date/Time Associated Diagnosis Comments CT GUIDED LIVER BIOPSY Routine 09/01/2022 9:03 AM EDT Malignant neoplasm of overlapping sites of right breast in female, estrogen receptor negative SURGICAL PATHOLOGY REPORT Routine 09/01/2022 8:30 AM EDT SPECIMEN TO PATHOLOGY Routine 09/01/2022 7:41 AM EDT documented in this encounter Results * IR Other Related Procedures (09/01/2022 10:24 AM EDT) Anatomical Region Laterality Modality X-Ray Angiograph y Narrative 09/01/2022 10:58 AM EDT Preoperative Diagnosis: painful port site at access attempt Postoperative Diagnosis: rotated port Procedure Performed: Port check with Fluoro. Operators: Art Jamison MD, Attending Estimated Blood Loss: Less than 2 cc. Fluoroscopy time: ?? Please see eDH IR technologist record for procedural dose/time. Anesthesia: 1. None. Appropriate time-out was performed prior to the procedure. Description of Procedure: ??All elements of maximal sterile barrier technique were met including cap, mask, sterile gown, sterile gloves, large sterile sheet, hand hygiene and 2% chlorhexidine for cutaneous antisepsis. The right chest port site was prepped and draped in the usual sterile fashion. ??An attempt was made to access the port without success. ??Fluoro shows the port to be rotated sideways with the diaphragm directed medially precluding normal access. ? The patient tolerated the procedure well. Impression: Rotated port. ??This will continue to pose significant problems to attempt non-guided access, and port revision in IR is recommended. ??I placed an order for this procedure and discussed with the patient. I, the attending Interventional Radiologist performed the entire procedure. ?? Ryan Dumont MD [facility] IR ORDERABLES * CT Guided Biopsy Liver (09/01/2022 9:03 AM EDT) Anatomical Region Laterality Modality Computed Tomogra phy Narrative 09/01/2022 9:17 AM EDT Images from the original result were not included. IR PROCEDURE NOTE ?? Procedure: CT guided liver biopsy. ?? Indication for Procedure: Per Soy Leyva??is a 41 y.o.??female??with PMH of right breast [...] the IR Nurse. ? Ryan Dumont MD [facility] CT ORDERABLES * Surgical Pathology Report (09/01/2022 8:30 AM EDT) Final Diagnosis [id number] ? Location: [facility] The signing pathologist has (i) examined the relevant preparation(s) for the specimen(s) and (ii) rendered or confirmed the diagnosis(es). . ?Surgical Pathology DIAGNOSIS A - CT Guided Liver Biopsy, biopsy (Multiple): - Scant liver tissue with preserved portal tracts, sinusoidal dilatation and focal portal inflammation - ??There is no evidence of malignancy. ?? Multiple deeper levels have been examined. Electronically signed by: ?Raymond Godwin MD Verified: ??09/03/2022 14:55 ??Pathologist Performed at: ??-[facility] Dept. of Pathology, [place] [address] Clam Shovel Operator: Malvin Toscano MD, FCAP, ??CLIA Certificate: [id number] SPECIMEN(S) SUBMITTED A - CT Guided Liver Biopsy, biopsy (Multiple) CLINICAL INFORMATION Breast CA with PET positive sites and liver, question pathology SPECIMEN PROCESSING A - Labeled/Fixative : CT-guided liver biopsy, formalin. Quantity/Size: Multiple, ranging from 0.2 x 0.1 cm to 1.0 x 0.1 cm Tissue Description: Childs-brown needle core biopsies Sections/Process ing: Entirely submitted in 1 cassette labeled A1. Ischemic time: 1 minute Total fixation time in formalin: 6 hours 44 minutes The ASCO/CAP guideline related to formalin fixation time has been met (6-72 hours). The ASCO/CAP guideline related to cold ischemic time has been met (<1 hour). ??sns 09/03/2022 2:55 PM EDT [facility] LIVER STRUCTURE / Unknown 09/01/2022 8:30 AM EDT 09/01/2022 8:30 AM EDT Ryan Dumont MD PATHOLOGY/CYTOLOGY O RDERABLES [facility] [place] [address] [facility] [place] [address] * Specimen to Pathology (09/01/2022 7:41 AM EDT) AP Specimen 09/01/2022 7:41 AM EDT 09/01/2022 7:41 AM EDT Narrative [facility] - 09/01/2022 7:41 AM EDT Specimen requisition ordered. ??Separate Pathology report to follow Ryan Dumont MD PATHOLOGY/CYTOLOGY O RDERABLES Performing Organization Address City/[facility]/ZIP Co de Phone Number [facility] [place] [address] * (ABNORMAL) Prothrombin Time (09/01/2022 7:09 AM EDT) Prothrombin Time 13.0(H) 9.4 - 12.5 sec [facility] International Normalization Ratio 1.1 [facility] Comment: An INR <2.0 indicates adequate [...] Lab Ryan Dumont MD HEMATOLOGY ORDERABLE S Performing Organization Address City/[facility]/ZIP Co de Phone Number [facility] [place] [address] * Hemogram (09/01/2022 7:09 AM EDT) White Blood Cell 9.0 4.0 - 9.5 x10(3)/[facility] LABORATORY Red Blood Cell 4.78 4.00 - 5.21 x10(6)/[facility] LABOR[facility]ORY Hemoglobin 13.4 11.7 - 15.5 g/dL [facility] Hematocrit 40.0 35.7 - 45.8 % [facility] Mean Cell Volume 83.7 82.6 - 94.4 fL [facility] Mean Cell Hemoglobin 28.0 27.1 - 32.0 pg [facility] Mean Cell Hemoglobin Concentration 33.5 31.7 - 35.0 g/dL [facility] Platelet 193 145 - 357 x10(3)/[facility]OR[facility] RDW Standard Deviation 38.2 37.0 - 46.0 fL [facility] RDW coefficient of variation 12.7 11.5 - 14.1 % [facility] Mean Platelet Volume 10.5 7.6 - 12.9 fL [facility] NRBC% auto 0.0 % [facility] NRBC Absolute 0.000 0.000 - 0.000 x10(3)/mcL [facility] Blood 09/01/2022 7:09 AM EDT 09/01/2022 7:14 AM EDT Narrative Resulting Agency Comment Spec In Lab Ryan Dumont MD HEMATOLOGY ORDERABLE S [facility] [place] [address] documented in this encounter Visit Diagnoses Diagnosis Malignant neoplasm of overlapping sites of breast in female, estrogen receptor negative, unspecified laterality Malignant neoplasm of overlapping sites of right breast in female, estrogen receptor negative documented in this encounter Administered Medications Inactive Administered Medications - up to 3 most recent administrations Medication Order MAR Action Action Date Dose Rate Site fentaNYL (pf) (50 mcg/mL) multi-dose injection 25-50 mcg 25-50 mcg, Intravenous, EVERY 3 MIN PRN, Starting on Tue09/01/22 at 0804, Until Yvette 09/02/22 at 0435, Pain, per unit protocol, For use in [...] mcg/dose, 250 mcg/hour, Angio/IR (Intra-Procedure), Routine Given 09/01/2022 8:49 AM EDT 25 mcg Given 09/01/2022 8:43 AM EDT 25 mcg Given 09/01/2022 8:41 AM EDT 25 mcg lidocaine (Xylocaine) 1% (10 mg/mL) injection 10 mg 10 mg, Subcutaneous, ONCE, 1 dose, On Tue09/01/22 at 0830, For use in Interventional Radiology (IR) only for procedure with direct provider supervision and verbal order., Angio/IR (Intra-Procedure), Routine Given 09/01/2022 8:40 AM EDT 10 mg midazolam (pf) (Versed) (1 mg/mL) multi-dose injection 0.5-1 mg 0.5-1 mg, Intravenous, EVERY 3 MIN PRN, Starting on Tue09/01/22 at 0804, Until Yvette 09/02/22 at 0435, Sedation, For use in Interventional Radiology (IR) [...] mg/dose, 5 mg/hour., Angio/IR (Intra-Procedure), Routine Given 09/01/2022 8:50 AM EDT 0.5 mg Given 09/01/2022 8:43 AM EDT 0.5 mg Given 09/01/2022 8:41 AM EDT 0.5 mg documented in this encounter Care Teams Consulting Actuary Relationship Specialty Start Date End Date Ryan Betancourt MD [address] [place] [phone] PCP - General Family Medicine 07/29/22 documented as of this encounter
--- OUTSIDE RECORDS SUMMARY | 2024-06-01 20:45 | XMS_ITS | Encounter Summary ---
[place] [address] Care Team Providers Care Placer Miner Name Role Phone Ryan Betancourt MD Primary Care Provider [phone] Reason for Referral * Diagnostic Test (Routine) - Closed Specialty Diagnoses / Procedures Referred By Ciaran t Referred To Contact Cardiology Diagnoses Malignant neoplasm of left breast in female, estrogen receptor positive, unspecified site of breast Procedures Echocardiogram Transthoracic Mario Lora PA [facility] DR HEMATOLOGY AND ONCOLOGY [address] [place] [address] Referral ID Status Reason Start Date Expiration Date V isits Requested Visits Authorized [id number] Closed Specialty Service Requested 07/29/2022 07/29/2023 1 1 Reason for Visit * Diagnostic Test (Routine) - Closed Specialty Diagnoses / Procedures Referred By Contac t Referred To Contact Cardiology Diagnoses Malignant neoplasm of left breast in female, estrogen receptor positive, unspecified site of breast Procedures Echocardiogram Transthoracic Mario Lora PA [facility] HEMATOLOGY [place] [address] [facility] [place] [address] Referral ID Status Reason Start Date Expiration Date V isits Requested Visits Authorized [id number] Closed Specialty Service Requested 07/29/2022 07/29/2023 1 1 Encounter Details Date Type Department Care Team (Latest Contact Info) Description 08/11/2022 10:35 AM EDT - 08/11/2022 12:05 PM EDT Hospital Encounter Non-Invasive Cardiology Lab [facility] [place] [phone] Kavitha Rai MD [facility] HEMATOLOGY [place] [address] Malignant neoplasm of left breast in female, [...] AM EST Hospital Encounter [place] [address] [address] [facility] [place] [address] 06/14/2024 8:45 AM EST Appointment XRay at [address] [place] [address] Kavitha Rai MD [facility] DR HEMATOLOGY [place] [address] 06/14/2024 9:45 AM EST Appointment Hematology [place] [address] 06/14/2024 11:00 AM EST Appointment [place] [address] [address] [facility] [address] [place] [address] 06/14/2024 1:00 PM EST Office Visit Hematology [place] [address] Kavitha Rai MD [facility] DR HEMATOLOGY [place] [address] 06/14/2024 2:30 PM EST Appointment Hematology [place] [address] 07/05/2024 10:30 AM EDT Appointment Hematology [place] [address] 07/05/2024 11:30 AM EDT Office Visit Hematology and Oncology at [place] [phone] Consuelo Joyce APRN [facility] [place] [address] 07/05/2024 1:00 PM EDT Appointment Hematology and Oncology at [place] [address] 08/16/2024 9:20 AM EDT Office Visit Ophthalmology at [place] [address] Luz Jose, CARSON [facility] [place] [address] 01/14/2025 8:30 AM EDT Office Visit Psychiatry and Behavioral Health at [place] [address] Anna Oneill, PhD [facility] [place] [address] documented as of this encounter Procedures Procedure Name Priority Date/Time Associated Diagnosis Comments ECHO COMPLETE Routine 08/11/2022 12:09 PM EDT Malignant neoplasm of left breast in female, estrogen receptor positive, unspecified site of breast documented in this encounter Results * ECHO COMPLETE (08/11/2022 12:09 PM EDT) Pathologist [facility] EF 60 HEARTLAB SYSTEM Anatomical Region Laterality Modality Cardiac Other 08/11/2022 11:0 7 AM EDT Narrative 08/11/2022 12:40 PM EDT ? Echocardiogram Report Name: SOY SAN ?Study Date: 08/11/2022 11:07 AMBP: 139/84 mmHg ? Patient Location: 4A : 1980 ? Height: 165 cm ? Account: [id number] Age: 41 yrs ? Weight: 111 kg Gender: Female ?BSA: 2.2 m2 Ordering Physician: KAVITHA RAI Referring Physician: MARIO LORA Performed By: Neelima Beltran RDCS Reason For Study: Malignant neoplasm of left breast in female Exam Location: [facility]. Interpretation Summary This was essentially a normal study. See report for findings. Procedure Complete-[id number]. Suboptimal quality. This study is limited because of body habitus. There is normal sinus rhythm. Left Ventricle Left ventricle is of normal size. Wall thickness is normal. There is no ventricular septal defect. Left ventricular systolic function is normal. Left ventricular ejection fraction is estimated visually at 60%. Global longitudinal strain is measured at -16 %. (GE). There are no segmental wall motion abnormalities. Right Ventricle The right ventricle is of normal size. Right ventricular systolic function is normal. Left Atrium The left atrium is normal. There is no evidence for a patent foramen ovale. Right Atrium The right atrium is normal. Aortic Valve The aortic valve is probably trileaflet. There is no aortic stenosis. There is no aortic regurgitation. Mitral Valve The mitral valve is structurally normal. There is no mitral stenosis. There is trace mitral regurgitation. Tricuspid Valve The tricuspid valve is structurally normal. There is no tricuspid stenosis. There is trace tricuspid regurgitation. Pulmonic Valve The pulmonic valve is not well visualized. There is trace pulmonic valve regurgitation. Great Arteries The aortic root is of normal size. No abnormalities are identified. Ascending aorta is normal in size. Venous Inferior vena cava is normal in size. Inferior vena cava collapse greater than 50% with respiration. Pericardium/Pleural There is no pericardial effusion. Hemodynamics The peak right ventricular systolic pressure is 20.0 mmHg . The estimated right atrial pressure is 3mmHg. Left ventricular diastolic function is normal. Left ventricular filling pressure is normal. ? 2D Measurements ? Volumes ?IVSd: 0.94 cm ?SV(LVOT): 53.8 ml ?LVIDd: 4.4 cm ?LVIDs: 2.9 cm ?SI(LVOT): 25.0 ml/m2 ?LVPWd: 0.86 cm ?LV mass(C)d: 127.4 grams ?LV mass(C)dI: 59.1 grams/m2 ?Ao root diam: 3.0 cm ?Ao root diam index: 1.4 ?asc Aorta Diam: 2.9 cm ?LVOT diam: 2.0 cm Doppler TR max cameron: 206.2 cm/sec RVSP(TR): 20.0 mmHg LV V1 VTI: 16.7 cm MV E max cameron: 81.7 cm/sec MV A max cameron: 72.7 cm/sec MV E/A: 1.1 MV dec time: 0.20 sec Lat Peak E' Cameron: 14.4 cm/sec E/ e' (lat): 5.7 Med Peak E' Cameron: 8.7 cm/sec E/e' (med): 9.4 E/e' Average: 7.5 I ?WMSI = 1.00 ? % Normal = 100 ?Segments ??Size X - Cannot ?2 - ?4 - ?1-2 ? small Interpret ?1 - Normal ?? Hypokinetic 3 - Akinetic Dyskinetic ?? 3-5 ? moderate 5 - ? 6-14 ?large Aneurysmal ?15-16 ?? diffuse Procedure Note Cody Lyon MD - 08/11/2022 Echocardiogram Report Name: SOY SAN Study Date: 1:07 AMBP: 139/84 mmHg Patient Location: : 1980 Height: 165 cm Account: [id number] Age: 41 yrs Weight: 111 kg Gender: Female BSA: 2.2 m2 Ordering Physician: KAVITHA RAI Referring Physician: MARIO LORA Performed By: Neelima Beltran RDCS Reason For Study: Malignant neoplasm of left breast in female Exam Location: [facility]. Interpretation Summary This was essentially a normal study. See report for findings. Procedure Complete-[id number]. Suboptimal quality. This study is limited because of bodyhabitus. There is normal sinus rhythm. Left Ventricle Left ventricle is of normal size. Wall thickness is normal. There is no ventricular septal defect. Left ventricular systolic function is normal.Left ventricular ejection fraction is estimated visually at 60%. Globallongitudinal strain is measured at -16 %. (GE). There are no segmental wall motion abnormalities. Right Ventricle The right ventricle is of normal size. Right ventricular systolic functionis normal. Left Atrium The left atrium is normal. There is no evidence for a patent foramenovale. Right Atrium The right atrium is normal. Aortic Valve The aortic valve is probably trileaflet. There is no aortic stenosis.There is no aortic regurgitation. Mitral Valve The mitral valve is structurally normal. There is no mitral stenosis.There is trace mitral regurgitation. Tricuspid Valve The tricuspid valve is structurally normal. There is no tricuspidstenosis. There is trace tricuspid regurgitation. Pulmonic Valve The pulmonic valve is not well visualized. There is trace pulmonic valve regurgitation. Great Arteries The aortic root is of normal size. No abnormalities are identified.Ascending aorta is normal in size. Venous Inferior vena cava is normal in size. Inferior vena cava collapse greaterthan 50% with respiration. Pericardium/Pleural There is no pericardial effusion. Hemodynamics The peak right ventricular systolic pressure is 20.0 mmHg . The estimatedright atrial pressure is 3mmHg. Left ventricular diastolic function is normal.Left ventricular filling pressure is normal. 2D Measurements Volumes IVSd: 0.94 cm SV(LVOT): 53.8ml LVIDd: 4.4 cm LVIDs: 2.9 cm SI(LVOT): 25.0ml/m2 LVPWd: 0.86 cm LV mass(C)d: 127.4 grams LV mass(C)dI: 59.1 grams/m2 Ao root diam: 3.0 cm Ao root diam index: 1.4 asc Aorta Diam: 2.9 cm LVOT diam: 2.0 cm Doppler TR max cameron: 206.2 cm/sec RVSP(TR): 20.0 mmHg LV V1 VTI: 16.7 cm MV E max cameron: 81.7 cm/sec MV A max cameron: 72.7 cm/sec MV E/A: 1.1 MV dec time: 0.20 sec Lat Peak E' Cameron: 14.4 cm/sec E/ e' (lat): 5.7 Med Peak E' Cameron: 8.7 cm/sec E/e' (med): 9.4 E/e' Average: 7.5 I WMSI = 1.00 % Normal = [...] breast documented in this encounter Care Teams Placer Miner Relationship Specialty Start Date End Date Ryan Betancourt MD [address] [place] [phone] PCP - General Family Medicine 07/29/22 documented as of this encounter
--- OUTSIDE RECORDS SUMMARY | 2024-06-01 20:45 | XMS_ITS | Encounter Summary ---
Author Organization [facility] [place] [address] Care Team Providers Care Operations Architect Name Role Phone Ryan Betancourt MD Primary Care Provider [phone] Encounter Details Date Type Department Care Team (Late st Contact Info) Description 08/11/2022 Orders Only Hematology and Oncology at [facility] [place] [place] [address] Dian Lora PA Malignant neoplasm of right breast in female, [...] AM EST Hospital Encounter [place] [address] Consuelo Joyce APRN [facility] [place] [address] 06/14/2024 8:45 AM EST Appointment XRay at [address] [place] [address] Kavitha Rai MD [facility] [place] [address] 06/14/2024 9:45 AM EST Appointment Hematology [place] [address] 06/14/2024 11:00 AM EST Appointment [place] [address] Consuelo Joyce [employer] [facility] [place] [place] [address] 06/14/2024 1:00 PM EST Office Visit Hematology [place] [address] Kavitha Rai MD [facility] DR HEMATOLOGY [place] [address] 06/14/2024 2:30 PM EST Appointment Hematology [place] [address] 07/05/2024 10:30 AM EDT Appointment Hematology and Oncology at [place] [address] 07/05/2024 11:30 AM EDT Office Visit Hematology and Oncology at [place] [address] Consuelo Joyce APRN [facility] [place] [address] 07/05/2024 1:00 PM EDT Appointment Hematology and Oncology at [place] [address] 08/16/2024 9:20 AM EDT Office Visit Ophthalmology at [place] [address] Luz Jose, CARSON [facility] [place] [address] 01/14/2025 8:30 AM EDT Office Visit Psychiatry and Behavioral Health at [place] [address] Anna Oneill, PhD [facility] [place] [address] documented as of this encounter Visit Diagnoses Diagnosis Malignant neoplasm of right breast in female, estrogen receptor negative, unspecified site of breast documented in this encounter Care Teams Operations Architect Relationship Specialty Start Date End Date Ryan Betancourt MD [address] [place] [phone] PCP - General Family Medicine 07/29/22 documented as of this encounter
--- OUTSIDE RECORDS SUMMARY | 2024-06-01 20:45 | XMS_ITS | Encounter Summary ---
Author Organization [facility] Address [facility] [place] [address] Care Team Providers Care Bulk Filler Name Role Phone Ryan Betancourt MD Primary Care Provider [phone] Encounter Details Date Type Department Care Team (Late st Contact Info) Description 08/19/2022 Orders Only Hematology [place] [address] Kavitha Rai MD [facility] DR HEMATOLOGY [place] [address] Social History Tobacco Use Types Packs/Day Years [...] AM EST Hospital [place] [address] Consuelo Joyce APRN [facility] DR MEDICAL [place] [address] 06/14/2024 8:45 AM EST Appointment XRay at [address] [place] [address] Kavitha Rai MD [facility] DR HEMATOLOGY [place] [address] 06/14/2024 9:45 AM EST Appointment Hematology [place] [address] 06/14/2024 11:00 AM EST Appoint[place] [address] Consuelo Joyce APRN [facility] [place]ICAL [place] [address] 06/14/2024 1:00 PM EST Office Visit Hematology [place] [phone] Kavitha Rai MD [facility] DR [place] [address] 06/14/2024 2:30 PM EST Appointment Hematology and Oncology at [place] [phone] 07/05/2024 10:30 AM EDT Appointment Hematology and Oncology at [address] 07/05/2024 11:30 AM EDT Office Visit [place]ematology [place] [address] Consuelo Joyce APRN [facility] [place] [address] 07/05/2024 1:00 PM EDT Appointment Hematology and Oncology at [place] [phone] 08/16/2024 9:20 AM EDT Office Visit Ophthalmology at [place] [address] Luz Jose, CARSON [facility] [place] [address] 01/14/2025 8:30 AM EDT Office Visit Psychiatry and Behavioral Health at [place] [phone] Anna Oneill, PhD [facility] [place] [address] documented as of this encounter Visit Diagnoses Not on filedocumented in this encounter Care Teams Bulk Filler Relationship Specialty Start Date End Date Ryan Betancourt MD [address] [place] [phone] PCP - General Family Medicine 07/29/22 documented as of this encounter
--- OUTSIDE RECORDS SUMMARY | 2024-06-01 20:45 | XMS_ITS | Encounter Summary ---
Author Organization [facility] Address [facility] [place] [address] Care Team Providers Care Secretary Office Clerk Name Role Phone Ryan Betancourt MD Primary Care Provider [phone] Encounter Details Date Type Department Care Team (Late st Contact Info) Description 09/02/2022 3:30 PM EDT Office Visit Hematology [place] [address] Kavitha Rai MD [facility] DR HEMATOLOGY [place] [address] Malignant neoplasm of overlapping sites of right [...] Sign Reading Time Taken Comments Blood Pressure 130/74 09/02/2022 3:24 PM EDT Pulse 88 09/02/2022 3:24 PM EDT Temperature 36.4 ??C (97.5 ??F) 09/02/2022 3 :24 PM EDT Respiratory Rate 22 09/02/2022 3:24 PM EDT Oxygen Saturation 99% 09/02/2022 3:2 4 PM EDT Inhaled Oxygen Concentration - - Weight 106.7 kg (235 lb 3.7 oz) 023 3:24 PM EDT with shoes Height 164.1 cm (5' 4.61) 09/02/2022 3 :24 PM EDT with shoes Body Mass Index 39.62 09/02/2022 3:24 PM EDT documented in this encounter Progress Notes * Netta Salgado MD - 09/02/2022 3:30 PM EDT Images from the original note were not included. Soy Soo Theodore Mena is a 41 y.o. 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 09/02/2022: THP #2 due next week. After THP #1, she went to a [employer], ate half a salad. This was fine. [...] configuration. Her breast tissue is less firm. CT guided biopsy of liver done 09/01/2022: no results yet 08/17/2022: Here for follow-up. 08/12/22 mediport placed [...] metastases CT guided liver biopsy 09/01/2022: 08/19/2022: THP PMH: None PSH: tubal ligation @ 15 years ago MEDS: none ALL: none SH/FH Non smoker Very little ETOH 1 biological child, 22. 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 Negative for chills, fatigue and fever. HENT: Negative. Eyes: Negative. Respiratory: Negative. Negative for cough, dizziness on exertion and shortness of breath. Cardiovascular: Negative. Negative for chest pain and leg swelling. Gastrointestinal: Soft BMs Endocrine: Negative. Genitourinary: Negative. Musculoskeletal: Negative. Skin: [...] and breath sounds normal. Breasts: Right breast: no longer edematous. No discrete mass. Improved pinkish sq nodules @3 oc (picture taken). Peau d'orange appearance improving. Breasts more pliable than previously Right axilla [address] was palpated on presentation but no longer appreciated today. Left breast: normal No evidence of CW recurrence or infection. Abdominal: Soft. Bowel sounds are normal. There is no tenderness. Musculoskeletal: Normal range of motion Pt tenderness lower T spine has resolved. Extremities: no clubbing, cyanosis or edema Neurological: [...] is s/p a right breast and axillarybiopsy. We started THP (Ruthy regimen) given the high pre-test probability of her having metastatic disease. We discussed the rash is likely due to the pertuzumab loading dose. Her cycle #2 will be lower doses of the antibodies so we recommended proceeding per standard dosing schedule and she agreed with this, noting that if it happens again she is confident with the cream it will resolve quickly. We willnot change the dose of Taxotere since the rash is not classic type that occurs with this. We recomme nded using Zofran and immodium PRN for side effects after the next cycle. We recommended using cryotherapy to prevent mouth sores and numbness/tingling of hands/feet for next cycle. - Awaiting liver biopsy results from 09/01 - MRI brain and MRI T spine scheduled 09/02 and 09/24 - Need to discuss genetics referral - Percocet 5mg PO q4h PRN for pain and EMLA cream to use during infusions - recommended zinc tablets for metallic taste with foods - recommended cryotherapy - ice chips or pops to prevent mouth sores, cold mittens and booties for preventing numbness/tingling and change of nails - will ensure she is scheduled to fix the flipped mediport She is already scheduled for next two infusions on 09/09 and . The above plan was discussed with my attending, Dr. Rai. Netta Salgado MD Heme/Onc Fellow * Kavitha Rai MD - 09/02/2022 3:30 PM EDT I have seen and examined the patient in person and reviewed the Fellow's above history and I agree with the details as written. The assessment and plan were formulated in discussion with me and I agree with them as documented. TCHP #2/6 next week. Did relatively well with TCHP#1. Significant response in symptoms and in breast. Evaluation still underway as was unable to get timely appointments- CT guided liver biopsy and MRI of head and spine pending OK to treat at current doses for TCHP #2. documented in this encounter Plan of Treatment Upcoming Encounters Date Type Department Care Team (Late st Contact Info) Description 06/14/2024 8:00 AM EST Hospital Encounter [place] [address] Consuelo Joyce [facility] [place] [address] 06/14/2024 8:45 AM EST Appointment XRay at [address] [place] [address] Kavitha Rai MD [facility] DR HEMATOLOGY [place] [address] 06/14/2024 9:45 AM EST Appointment Hematology [place] [address] 06/14/2024 11:00 AM EST Appointment [place] [phone] Consuelo Joyce [facility] [place] [address] 06/14/2024 1:00 PM EST Office Visit Hematology [place] [address] Kavitha Rai MD [facility] DR HEMATOLOGY [place] [address] 06/14/2024 2:30 PM EST Appointment Hematology and Oncology at [place] [phone] 07/05/2024 10:30 AM EDT Appointment Hematology and Oncology at [place] [address] 07/05/2024 11:30 AM EDT Office Visit Hematology and Oncology at [place] [address] Consuelo Joyce APRN [facility] [place] [address] 07/05/2024 1:00 PM EDT Appointment Hematology and Oncology at [place] [address] 08/16/2024 9:20 AM EDT Office Visit Ophthalmology at [place] [address] Luz Jose, CARSON [facility] [place] [address] 01/14/2025 8:30 AM EDT Office Visit Psychiatry and Behavioral Health at [place] [address] Anna Oneill, PhD [facility] [place] [address] documented as of this encounter Visit Diagnoses Diagnosis Malignant neoplasm of overlapping sites of right breast in female, estrogen receptor negative documented in this encounter Care Teams Secretary Office Clerk Relationship Specialty Start Date End Date Ryan Betancourt MD [address] [place] [phone] PCP - General Family Medicine 07/29/22 documented as of this encounter
--- OUTSIDE RECORDS SUMMARY | 2024-06-01 20:45 | XMS_ITS | Encounter Summary ---
Author Organization [facility] Address [facility] [place] [address] Care Team Providers Care Electric Meter Installer Helper Name Role Phone Ryan Betancourt MD Primary Care Provider [phone] Encounter Details Date Type Department Care Team (Latest Contact Info) Description 08/11/2022 Travel Social History Tobacco Use Types Packs/Day [...] AM EST Hospital Encounter [place] [address] Consuelo Joyce APRN [facility] [address] 06/14/2024 8:45 AM EST Appointment XRay at [address] [place] [address] Kavitha Rai MD [facility] DR HEMATOLOGY [place] [address] 06/14/2024 9:45 AM EST Appointment Hematology [place] [address] 06/14/2024 11:00 AM EST Appointment [place] [address] Consuelo Joyce APRN [facility] [address] 06/14/2024 1:00 PM EST Office Visit Hematology [place] [phone] Kavitha Rai MD [facility] [place] [address] 06/14/2024 2:30 PM EST Appointment Hematology [place] [address] 07/05/2024 10:30 AM EDT Appointment Hematology and Oncology at [place] [address] 07/05/2024 11:30 AM EDT Office Visit Hematology and Oncology at [place] [phone] Consuelo Joyce APRN [facility] [place] [place] [address] 07/05/2024 1:00 PM EDT Appointment Hematology and Oncology at [place] [address] 08/16/2024 9:20 AM EDT Office Visit Ophthalmology at [place] [phone] Luz Jose, OD [facility] [place] [address] 01/14/2025 8:30 AM EDT Office Visit Psychiatry and Behavioral Health at [place] [address] Anna Oneill, PhD [facility] [place] [place] [address] documented as of this encounter Visit Diagnoses Not on filedocumented in this encounter Care Teams Electric Meter Installer Helper Relationship Specialty Start Date End Date Ryan Betancourt MD [address] [place] [phone] PCP - General Family Medicine 07/29/22 documented as of this encounter
--- OUTSIDE RECORDS SUMMARY | 2024-06-01 20:45 | XMS_ITS | Encounter Summary ---
[facility] Organization [facility] [place] [address] Care Team Providers Care Faith Doctor Name Role Phone Ryan Betancourt MD Primary Care Provider [phone] Reason for Visit * Reason Onset Date Comments Follow-up 08/27/2022 Encounter Details Date Type Department Care Team ([facility] st Contact Info) Description 08/27/2022 Telephone Hematology [place] [phone] Madeline Verdugo, RN Follow-up Social History Tobacco [...] Telephone Encounter - Madeline Verdugo RN - 08/27/2022 7:04 AM EDT ----- Message from Madeline Verdugo RN sent at 08/26/2022 5:24 PM EDT ----- Regarding: f/u diarrhea and rash f/u diarrhea and rash No answer 08/26 Call placed to patient and spoke to Soo. Imodium has worked somewhat. Still having loose stools. Not liquid. Not going as frequently. Only taken 5 pills, including the 2 she took Tuesday evening. She thinks she created a hemorrhoids from pushing. A little dot of red blood when wiping. Has Hx ofhemorrhoids. Has cramping. Taking one imodium with each loose stool. Denies nausea. No vomiting. Keeping all food down. Rash feels better but cannot see. Did not get cream until yesterday at noon. Not as itchy. Does notfeel as raw. She has not applied the cream today but will now that I reminded her. She will monitor and if it is not improving she will have her take a photo and send in and or call on-call oncologist over the weekend. Pushing fluids. documented in this encounter Plan of Treatment Upcoming Encounters Date Type Department Care Team (Late st Contact Info) Description 06/14/2024 8:00 AM [facility] Hospital Encounter [place] [address] Consuelo Joyce APRN [facility] [place] [address] 06/14/2024 8:45 AM EST Appointment XRay at [address] [place] [address] Kavitha Rai MD [facility] DR [place] [address] 06/14/2024 9:45 AM EST Appointment Hematology [place] [address] 06/14/2024 11:00 AM EST Appointment [place] [address] Consuelo Joyce [facility] [place] [address] 06/14/2024 1:00 PM EST Office Visit Hematology [place] [address] Kavitha Rai MD [facility] DR [place] [address] 06/14/2024 2:30 PM EST Appointment Hematology [place] [address] 07/05/2024 10:30 AM EDT Appointment Hematology [place] [address] 07/05/2024 11:30 AM EDT Office Visit Hematology [place] [address] Consuelo Joyce APRN [facility] [place] [address] 07/05/2024 1:00 PM EDT Appointment Hematology [place] [address] 08/16/2024 9:20 AM EDT Office [place] [phone] Luz Jose, CARSON [facility] [place] [address] 01/14/2025 8:30 AM EDT Office Visit Psychiatry and [place] [phone] Anna Oneill, PhD [facility] [place] [address] documented as of this encounter Visit Diagnoses Not on filedocumented in this encounter Care Teams Faith Doctor Relationship Specialty Start Date End Date Ryan Betancourt MD [address] [place] [phone] PCP - General Family Medicine 07/29/22 documented as of this encounter
--- OUTSIDE RECORDS SUMMARY | 2024-06-01 20:45 | XMS_ITS | Encounter Summary ---
[place] [address] Care Team Providers Care Funeral Service Manager Name Role Phone Ryan Betancourt MD Primary Care Provider [phone] Reason for Referral * Diagnostic Test (Routine) - Closed Specialty Diagnoses / Procedures Referred By Contac t Referred To Contact Radiology Diagnoses Malignant neoplasm of overlapping sites of right breast in female, estrogen receptor negative Procedures IR Mediport Placement Kierra Buenrostro PA [facility] [place] [address] [facility] [place] [address] Referral ID Status Reason Start Date Expiration Date V isits Requested Visits Authorized [id number] Closed Specialty Service Requested 09/01/2022 03/04/2024 1 1 * Diagnostic Test (Routine) - Closed Specialty Diagnoses / Procedures Referred By Contac t Referred To Contact Radiology Diagnoses Malignant neoplasm of overlapping sites of right breast in female, estrogen receptor negative Procedures IR Mediport Removal Kierra Buenrostro PA [facility] [place] [address] [facility] [place] [address] Referral ID Status Reason Start Date Expiration Date V isits Requested Visits Authorized [id number] Closed Specialty Service Requested 09/01/2022 03/04/2024 1 1 * Diagnostic Test (Routine) - Closed Specialty Diagnoses / Procedures Referred By Contac t Referred To Contact Radiology Diagnoses Malignant neoplasm of overlapping sites of right breast in female, estrogen receptor negative Procedures IR Other Related Procedures Kierra Buenrostro PA [facility] [address] [place] [address] [place] [address] Referral ID Status Reason Start Date Expiration Date V isits Requested Visits Authorized [id number] Closed Specialty Service Requested 09/01/2022 03/04/2024 1 1 Reason for Visit * Diagnostic Test (Routine) - Closed Specialty Diagnoses / Procedures Referred By Contac t Referred To Contact Radiology Diagnoses Malignant neoplasm of overlapping sites of right breast in female, estrogen receptor negative Procedures IR Other Related Procedures Kierra Buenrostro PA [facility] [place] [address] [place] [address] Referral ID Status Reason Start Date Expiration Date V isits Requested Visits Authorized [id number] Closed Specialty Service Requested 09/01/2022 03/04/2024 1 1 Encounter Details Date Type Department Care Team (Latest Contact Info) Description 09/01/2022 10:02 AM EDT - 09/01/2022 11:59 PM EDT Hospital En[place] [address] Ryan Dumont MD [facility] DR [place] [address] Malignant neoplasm of overlapping sites of right [...] Sign Reading Time Taken Comments Blood Pressure 124/85 09/01/2022 10:45 AM EDT Pulse - - Temperature - - Respiratory Rate 16 09/01/2022 10:30 AM EDT Oxygen Saturation 100% 09/01/2022 10:45 AM EDT Inhaled Oxygen Concentration - - [...] as of this encounter Progress Notes * Chapin Lynn RN - 09/01/2022 9:57 AM EDT [facility] Name: Soy San Date of : 1980 AGE: 41 y.o. Address: [address] [place] [phone] (home) [phone] (work) Mobile: Telephone Information: Referring Provider: Kierra Buenrostro REASON FOR VISIT: Order Questions Answers Where will study be performed? [facility] Radiology [120] Is the patient on anticoagulant / antiplatelet therapy ? No Reason for exam and clinical history: Breast cancer s/p right sided port placement 08/12, accessed once 08/19 successfully but now with extreme pain with access on 09/01 for liver biopsy,Assess mediport Is the patient ? Unknown No data recorded Allergies Allergen Reactions ??? Milk Containing Products [...] biopsy ??fentanyl 125 mcg, versed 2.5 mg ? Laboratory Results: Lab Results Component Value Date INR 1.1 09/01/2022 Lab Results Component Value Date CREATININE 1.00 08/19/2022 Lab Results Component Value Date K 3.7 08/19/2022 Lab Results Component Value Date PLATELET 193 09/01/2022 documented in this encounter H&P Notes * Kierra Buenrostro PA - 09/01/2022 4:02 PM EDT Images from the original note were not included. Interventional Radiology Focused Pre-procedure H&P: PCP: Ryan Betancourt MD Referring Provider: Kierra Buenrostro Planned procedure: Mediport revision/replacement Procedure indication: Painful port access, rotated port IR workflow: Procedure request received through Interventional Radiology eDH order queue. Order Questions Answers Where will study be performed? [facility] Radiology [120] Is the patient on anticoagulant [...] flush 5 mL 5 mL Intravenous BID Kierra Buenrostro PA ??? sodium chloride 0.9 % (flush) (BD PosiFlush Normal Saline 0.9) flush 5-20 mL 5-20 mL Intravenous Q1 Min PRN Troy, Kierra E, PA ??? lidocaine (Xylocaine) 1% (10 mg/mL) injection 3 mg 0.3 mL Subcutaneous Once PRN Troy, Kierra E, PA ??? sodium chloride 0.9 % (flush) (BD PosiFlush Normal Saline 0.9) flush 10 mL 10 mL Intravenous Daily PRN Troy, Kierra E, PA ??? fentaNYL (pf) (50 mcg/mL) multi-dose injection 25-50 mcg 25-50 mcg Intravenous Q3 Min PRN Troy, Kierra E, PA 25 mcg at 09/01/22 0849 ??? flumazeniL (Romazicon) (0.1 mg/mL) injection 0.2 mg 0.2 mg Intravenous Q2 Min PRN Troy, Kierra E, PA ??? naloxone (NARCAN) injection 1 mg/mL 0.1 mg 0.1 mg Intravenous Q2 Min PRN Troy, Kierra E, PA ??? [COMPLETED] lidocaine (Xylocaine) 1% (10 mg/mL) injection 10 mg 10 mg Subcutaneous Once Troy,Kierra E, PA 10 mg at 09/01/22 0840 ??? midazolam (pf) (Versed) (1 mg/mL) multi-dose injection 0.5-1 mg 0.5-1 mg Intravenous Q3 Min PRNRanger, Kierra E, PA 0.5 mg at 09/01/22 0850 ??? iohexoL (Omnipaque) (350 mg/mL) solution 1-400 mL 1-400 mL Other Once TroyKierra PA Past Medical/Surgical history: Patient Active Problem List Diagnosis Code ??? Malignant neoplasm of overlapping sites of breast in female, estrogen receptor negative C50.819, Z17.1 No past medical history on file. Past Surgical History: Procedure Laterality Date ??? CT GUIDED LIVER BIOPSY 09/01/2022 CT Guided Biopsy Liver 09/01/2022 Ryan Dumont MD [facility] RAD CT SCAN ??? IR BIOPSY LIVER PERCUTANEOUS 08/12/2022 IR Biopsy Liver Percutaneous 08/12/2022 Ryan Dumont MD [facility] INTERVENTIONL RAD ??? IR MEDIPORT PLACEMENT 08/12/2022 IR Mediport Placement 08/12/2022 Ryan Dumont MD [facility] INTERVENTIONL RAD ??? MAMMO US BIOPSY LYMPH NODE RIGHT Right 07/06/2022 Mammo US Biopsy Lymph Node Right 07/06/2022 Akhil Fregoso MD [facility] RAD MAMMOGRAPHY ??? MAMMO US BIOPSY RIGHT Right 07/06/2022 Mammo Us Biopsy Right 07/06/2022 Akhil Fregoso MD [facility] RAD MAMMOGRAPHY Social History and Habits: Social [...] Kierra Buenrostro PA-C documented in this encounter Plan of Treatment Upcoming Encounters Date Type Department Care Team (Late st Contact Info) Description 06/14/2024 8:00 AM EST Hospital Encounter [place] [address] Consuelo Joyce APRN [facility] [place] [address] 06/14/2024 8:45 AM EST Appointment XRay at [address] [place] [address] Kavitha Rai MD [facility] DR HEMATOLOGY [place] [address] 06/14/2024 9:45 AM EST Appointment Hematology and Oncology at [place] [phone] 06/14/2024 11:00 AM EST Appointment Nuclear Medicine at [place] [phone] Consuelo Joyce [facility] [place] [address] 06/14/2024 1:00 PM EST Office Visit Hematology [place] [address] Kavitha Rai MD [facility] DR HEMATOLOGY [place] [address] 06/14/2024 2:30 PM EST Appointment Hematology [place] [address] 07/05/2024 10:30 AM EDT Appointment Hematology [place] [address] 07/05/2024 11:30 AM EDT Office Visit Hematology [place] [address] Consuelo Joyce [facility] [place] [address] 07/05/2024 1:00 PM EDT Appointment Hematology [place] [address] 08/16/2024 9:20 AM EDT Office [place] [address] Luz Jose, CARSON [facility] [place] [address] 01/14/2025 8:30 AM EDT Office Visit Psychiatry and [place] [address] Anna Oneill, PhD [facility] [place] [address] documented as of this encounter Procedures Procedure Name Priority Date/Time Associated Diagnosis Comments IR OTHER RELATED PROCEDURES Routine 09/01/2022 10:24 AM EDT Malignant neoplasm of overlapping sites [...] was stored. Port placed: Profuse Catheter size (Chinese): 8 Catheter flush: Heparin (100 units/mL) Closure [...] who have questions please contact the health primary care coordinator that requested your imaging first. ? Electronically signed by: Glen Moreno MD, [facility] ([phone]), at 09/10/2022 6:26 PM Narrative 09/10/2022 6:26 [...] was stored. Port placed: Profuse Catheter size (Chinese): 8 Catheter flush: Heparin (100 units/mL) Closure [...] patients who have questions please contactthe health primary care coordinator that requested your imaging first. Electronically signed by: Glen Moreno MD, [facility]([phone]), at 09/10/2022 6:26 PM Ryan Dumont MD [...] was stored. Port placed: Profuse Catheter size (Chinese): 8 Catheter flush: Heparin (100 units/mL) Closure [...] who have questions please contact the health primary care coordinator that requested your imaging first. ? Electronically signed by: Glen Moreno MD, [facility] ([phone]), at 09/10/2022 6:26 PM Narrative 09/10/2022 6:26 [...] was stored. Port placed: Profuse Catheter size (Chinese): 8 Catheter flush: Heparin (100 units/mL) Closure [...] patients who have questions please contactthe health primary care coordinator that requested your imaging first. Electronically signed by: Glen Moreno MD, Radiology [place]([phone]), at 09/10/2022 6:26 PM Ryan Dumont MD [facility] IR ORDERABLES * IR Other Related Procedures (09/01/2022 10:24 AM EDT) Anatomical Region Laterality Modality X-Ray Angiograph y Narrative 09/01/2022 10:58 AM EDT Preoperative Diagnosis: painful port site at access attempt Postoperative Diagnosis: rotated port Procedure Performed: Port check with Fluoro. Operators: Art Jamison MD, Attending Estimated Blood Loss: Less than 2 cc. Fluoroscopy time: ?? Please see [facility] IR technologist record for procedural dose/time. Anesthesia: [...] the entire procedure. ?? Ryan Dumont MD [facility] IR ORDERABLES documented in this encounter Visit Diagnoses Diagnosis Malignant neoplasm of overlapping sites of right breast in female, estrogen receptor negative Malignant neoplasm of overlapping sites of right breast in female, estrogen receptor negative documented in this encounter Care Teams Funeral Service Manager Relationship Specialty Start Date End Date Ryan Betancourt MD [address] [place] [phone] PCP - General Family Medicine 07/29/22 documented as of this encounter
--- OUTSIDE RECORDS SUMMARY | 2024-06-01 20:45 | XMS_ITS | Encounter Summary ---
[place] [address] Care Team Providers Care Perforator Typist Name Role Phone Ryan Betancourt MD Primary Care Provider [phone] Reason for Referral * Diagnostic Test (Routine) - Closed Specialty Diagnoses / Procedures Referred By Ciaran lopez Referred To Contact Radiology Diagnoses Malignant neoplasm of left breast in female, estrogen receptor positive, unspecified site of breast Procedures MRI Thoracic Spine wwo Contrast Kavtiha Rai MD [facility] DR HEMATOLOGY [place] [address] [place] [address] Referral ID Status Reason Start Date Expiration Date V isits Requested Visits Authorized [id number] Closed Specialty Service Requested 08/03/2022 10/01/2022 1 1 Reason for Visit * Diagnostic Test (Routine) - Closed Specialty Diagnoses / Procedures Referred By Ciaran lopez Referred To Contact Radiology Diagnoses Malignant neoplasm of left breast in female, estrogen receptor positive, unspecified site of breast Procedures MRI Thoracic Spine wwo Contrast Kavitha Rai MD [facility] DR HEMATOLOGY [place] [address] [place] [address] Referral ID Status Reason Start Date Expiration Date V isits Requested Visits Authorized [id number] Closed Specialty Service Requested 08/03/2022 10/01/2022 1 1 Encounter Details Date Type Department Care Team (Latest Contact Info) Description 09/02/2022 4:31 PM EDT - 09/02/2022 11:59 PM EDT Hospital Encounter MRI at [facility] [place] [address] Kavitha Rai MD [facility] [address] [place] [address] Malignant neoplasm of left breast in female, [...] AM EST Hospital Encounter [place] [address] Consuelo Joyce APRN [facility] [place] [address] 06/14/2024 8:45 AM EST Appointment XRay at [address] [place] [address] Kavitha Rai MD [facility] DR HEMATOLOGY [place] [address] 06/14/2024 9:45 AM EST Appointment Hematology [place] [address] 06/14/2024 11:00 AM EST Appointment [place] [address] Consuelo Joyce APRN [facility] [place] [address] 06/14/2024 1:00 PM EST Office Visit Hematology [place] [address] Kavitha Rai MD [facility] DR [place] [address] 06/14/2024 2:30 PM EST Appointment Hematology and Oncology at [place] [phone] 07/05/2024 10:30 AM EDT Appointment Hematology and Oncology at [place] [address] 07/05/2024 11:30 AM EDT Office Visit Hematology and Oncology at [place] [address] Consuelo Joyce APRN [facility] [place] [address] 07/05/2024 1:00 PM EDT Appointment Hematology [place] [address] 08/16/2024 9:20 AM EDT Office Visit Ophthalmology at [place] [address] Luz Jose, [facility] [address] 01/14/2025 8:30 AM EDT Office Visit Psychiatry and Behavioral Health at [place] [address] Anna Oneill, PhD [facility] [address] documented as of this encounter Procedures Procedure Name Priority Date/Time Associated Diagnosis Comments MRI THORACIC SPINE WITH/WO CONTRAST Routine 09/02/2022 6:50 PM EDT Malignant neoplasm of left breast in female, estrogen receptor positive, unspecified site of breast documented in this encounter Results * MRI Thoracic Spine wwo Contrast (09/02/2022 6:50 PM EDT) Anatomical Region Laterality Modality T-spine Magnetic Resonan ce Impressions 09/03/2022 9:57 AM EDT Numerous thoracic spinal metastases, as above with multilevel vertebral body and posterior element involvement. There is mild dorsal epidural disease extension between T8 and T10 without significant mass effect on thecal sac or cord contact. Paraspinal soft tissue involvement with neural foraminal disease bilaterally at T9-T10. No cord signal abnormality, pathologic fracture or significant spinal stenosis. No intradural metastases identified. I have personally reviewed the image(s) and the resident's interpretation and agree with the findings, Deejay Cottrell DO at 09/03/2022 9:57 AM Thank you for letting us participate in the care of this patient. ??If you are a health care provider and have any questions regarding this report, please contact the number below. ??For patients who have questions please contact the health behavioral health care manager that requested your imaging first. ? Electronically signed by: Deejay Cottrell DO, [facility] ??([phone]), at 09/03/2022 9:57 AM Narrative 09/03/2022 9:57 AM EDT EXAMINATION: MRI THORACIC SPINE WWO CONTRAST CLINICAL HISTORY: Metastatic disease evaluation; denovo stage 4 breast cancer with new lytic lesion T9. Point tenderness at the site. Evaluate extent of disease TECHNIQUE: MRI of the thoracic spine was performed before and after the intravenous administration of 20cc Dotarem. COMPARISON: PET/CT 07/28/2022 FINDINGS: Normal alignment of the thoracic spine. No pathologic fracture identified. T2 hyperintense and T1 intermediate signal and postcontrast enhancement of the T4, T7, T9, T10, T11, T12, L1 vertebral bodies. Largest discrete vertebral body lesion is at L1 measuring approximately 1.7 cm. There is a T2 pedicle and pars interarticularis lesion on the right side, the left transverse process lesion. There is contiguous involvement of the left T9 pedicle and posterior elements through the right pedicle. T11 and L1 lesions. T10 left-sided posterior elements are involved, multilevel spinous process metastases are identified at contiguous levels between T8 and T12. The disease between T8 and T10 is associated with mild posterior epidural thickening and enhancement, without significant mass effect on the thecal sac or cord contact. Contiguous involvement of the immediate paraspinal tissue eccentric to the left is noted primarily at T9 with involvement of bilateral T9-T10 neural foramina. No additional suggestion of epidural disease. No abnormal spinal cord signal or enhancement. No intradural metastases identified. Enhancement of the left posterior 4th rib and right posterior 6th rib noted. There is a small right central disc protrusion at T7-T8. Procedure Note Deejay Cottrell, DO - 09/03/2022 EXAMINATION: MRI THORACIC SPINE WWO CONTRAST CLINICAL HISTORY: Metastatic disease evaluation; denovo stage 4 breastcancer with new lytic lesion T9. Point tenderness at the site. Evaluate extentof disease TECHNIQUE: MRI of the thoracic spine was performed before and after the intravenous administration of 20cc Dotarem. COMPARISON: PET/CT 07/28/2022 FINDINGS: Normal alignment of the thoracic spine. No pathologic fractureidentified. T2 hyperintense and T1 intermediate signal and postcontrast enhancement ofthe T4, T7, T9, T10, T11, T12, L1 vertebral bodies. Largest discrete vertebralbody lesion is at L1 measuring approximately 1.7 cm. There is a T2 pedicle and pars interarticularis lesion on the right side,the left transverse process lesion. There is contiguous involvement of the left T9 pedicle and posteriorelements through the right pedicle. T11 and L1 lesions. T10 left-sided posterior elements are involved, multilevel spinousprocess metastases are identified at contiguous levels between T8 and T12. The disease between T8 and T10 is associated with mild posteriorepidural thickening and enhancement, without significant mass effect on the thecalsac or cord contact. Contiguous involvement of the immediate paraspinal tissue eccentric to the left is noted primarily at T9 with involvement ofbilateral T9-T10 neural foramina. No additional suggestion of epidural disease. No abnormal spinal cordsignal or enhancement. No intradural metastases identified. Enhancement of the left posterior 4th rib and right posterior 6th ribnoted. There is a small right central disc protrusion at T7-T8. IMPRESSION Numerous thoracic spinal metastases, as above with multilevel vertebralbody and posterior element involvement. There is mild dorsal epidural disease extension between T8 and [id number] significant mass effect on thecal sac or cord contact. Paraspinal softtissue involvement with neural foraminal disease bilaterally at T9-T10. No cord signal abnormality, pathologic fracture or significant spinalstenosis. No intradural metastases identified. I have personally reviewed the image(s) and the resident's interpretationand agree with the findings, Deejay Cottrell DO at 09/03/2022 9:57 AM Thank you for letting us participate in the care of this patient. If youare a health care provider and have any questions regarding this report,please contact the number below. For patients who have questions please contactthe health behavioral health care manager that requested your imaging first. Electronically signed by: Deejay Cottrell DO, [facility]([phone]), at 09/03/2022 9:57 AM Kavitha Rai MD IMG MRI ORDERABLES documented [...] ONCE PRN, 1 dose, Starting on Yvette 09/02/22 at 1857, Until Yvette 09/02/22 at 1857, Per Protocol, Radiology Contrast, Routine Given 09/02/2022 6:57 PM EDT 20 mLs documented in this encounter Care Teams Perforator Typist Relationship Specialty Start Date End Date Ryan Betancourt MD [address] [place] [phone] PCP - General Family Medicine 07/29/22 documented as of this encounter
--- OUTSIDE RECORDS SUMMARY | 2024-06-01 20:45 | XMS_ITS | Encounter Summary ---
Author Organization [facility] [place] [address] Care Team Providers Care Pheresis Nurse Name Role Phone Ryan Betancourt MD Primary Care Provider [phone] Encounter Details Date Type Department Care Team (Latest Contact Info) Description 08/11/2022 12:00 PM EDT Clinical Support Hematology and Oncology at [place] [place] [phone] Lilly Camacho, [facility] Malignant neoplasm of right breast in female, [...] this encounter Progress Notes * Lilly Camacho, [facility] - 08/11/2022 12:00 PM EDT Pharmacist New Chemo Teach Visit PATIENT ID: Soy San is a 41 y.o. female with Metastatic breast cancer ER/OH-/HER2+ who presents today for chemotherapy teaching. The plan is for docetaxel/trastuzumab/pertuzumab givenevery 3 weeks for 6 cycles followed by trastuzumab and pertuzumab given every 3 weeks for a total of 1 year. The following information was reviewed with the patient. Drug-Drug / Drug-Herb Interactions: None Antitumor Therapy Schedule: Docetaxel (Taxotere), Trastuzumab (Kanjinti), Pertuzumab (Perjeta) every 3 weeks for 6 cycles The trastuzumab (Kanjinti) and pertuzumab (Perjeta) will continue every 3 weeks for a total of 1 year of treatment Docetaxel is given via IV infusion over 60 minutes. Trastuzumab is given via IV infusion over 30 minutes. For Cycle 1, the infusion time is 90 minutes. Pertuzumab is given via IV infusion over 30 minutes. For Cycle 1, the infusion time is 60 minutes. Possible Side Effects include, but are not limited to: Docetaxel (Taxotere): The most common potential side effects include: Hair loss, decrease in blood counts (decrease in white blood cells, red blood cells and platelets, resulting in increased risk ofinfection, anemia and bleeding), fluid retention, fatigue, peripheral neuropathy (pain, numbness ortingling in fingers and toes), nausea, changes in nails, and diarrhea. Less common side effects incl ude allergic reactions to the drug, muscle, bone or joint pain, and changes in liver function tests. Trastuzumab (Kanjinti) and Pertuzumab (Perjeta): The most common potential side effects include: Diarrhea, mild nausea, rash, allergic reactions to the drug, and a small risk of heart failure or decrease in heart function. CINV Collaborative Practice Agreement (CPA): Soy San has consented to participate in the pharmacist CINV CPA program: Yes ??? CINV Risk Assessment: o Age < 50 years: Yes o Female gender: Yes o History of morning sickness during : Yes o Prone to motion sickness: No o History of prior CINV: N/A o History of anxiety or high pretreatment expectation of severe nausea: Yes ??? The prevention and management of CINV was reviewed with the patient. Soy San demonstrated understanding of how and when to take home prescriptions for antinausea management, and will fiber picker their prescriptions at [facility] pharmacy. ??? Soy San was given the oncology pharmacist contact information should any issuesarise when filling antinausea prescriptions, or if modifications to the antiemetic regimen are needed to better control CINV. Shirley Antiemetics: ??? Ondansetron 8 mg IV/PO x 1 Antiemetic Prescriptions: the following medications should be picked up before starting treatment ??? Prochlorperazine 10 mg PO Q6H PRN nausea/vomiting Plan: Soy was given written information regarding chemotherapy regimen, side effects and management strategies. Soy was given an opportunity to ask questions and verbalized understanding ofthe information and treatment plan. No barriers to learning were identified. She was counseled on how to call for any further questions or concerns. ??? Chemotherapy is scheduled to begin on 08/19/22 ??? Mediport placement: 08/12/2022 ??? Echocardiogram: 08/11/22 ??? Supportive Care: o To reduce the risk of neutropenia, she will need injections of pegfilgrastim given the day following chemotherapy. Pegfilgrastim may cause skeletal pain for several days after each injection. Claritin (loratadine) may be helpful in alleviating pegfilgrastim related bone pain. She may take 10 mg starting before her injection and continue to take daily for 5-7 days. o Initial antiemetic regimen includes prochlorperazine. o Prescriptions for other supportive care agents will be reviewed with patient and written by the PABLO. ??? Reviewed possible side effects of constipation and diarrhea. Soy Hernandezy Theodore Mena should call the clinic if > 3 loose stools per day or > 2 days without a bowel movement. Reviewed the following medications for constipation: polyethylene glycol (MiraLAX), senna (Senokot), docusate (Colace). Reviewed the following medication for diarrhea: loperamide (Imodium A-D). ??? Reviewed that fatigue is a common side effect of cancer treatment. o Rest, but not too much: Plan your day so you have time to rest. Take naps that are 30 minutes or less. Try to sleep 7-8 hours each night. o Stay active: Stay as active as possible with moderate exercise like walking. o Save your energy: Prioritize activities that are most important and plan ahead to spread out activities throughout the day with rest as needed. o Get help: Ask family or friends for help if needed. o Get support: Consider joining a support group. Sharing feelings can ease the burden of fatigue and you may learn some other coping strategies from others. o Eat well: Drink at least 64 fluid ounces of water daily if possible. Prioritize eating healthy fruits, vegetables, and protein. o Call your doctor: If you are unable to get out of bed for a 24-hour period, confused, dizzy, or experience shortness of breath, contact the clinic. ??? Reviewed sexual activity and fertility. o Reviewed the risks of infection and bleeding. o Recommended barrier protection in the days following each infusion to prevent any trace chemotherapy in body fluids from affecting a partner. ??? Reviewed hair loss. Most patients will start to notice this 2-4 weeks after starting chemotherapy. Provided a list of local resources for wigs, scarves, and hats. ??? Chemotherapy exposure precautions were reviewed. ??? Smoking cessation: Former Smoker ??? Advanced directives: A copy of the Advanced Directive form was given to the patient. Will referto social work to assist with completion. ??? Soy San was given the contact information for the breast oncology team ([phone]) and was instructed to call with any questions or concerns during normal business hours (Tuesday-Tuesday 8 am - 5 pm). The hospital overlock operator phone number ([phone]) was provided to reach the on-call oncology fellow during nights, weekends, and holidays. ??? Pharmacy follow up appointment: 08/23/22 @ 1400 45 of this 60 minute face to face encounter was spent in counseling, education and coordination of care. documented in this encounter Plan of Treatment Upcoming Encounters Date Type Department Care Team (Late st Contact Info) Description 06/14/2024 8:00 AM EST Hospital Encounter [place] [address] Consuelo Joyce APRN [facility] [place] [address] 06/14/2024 8:45 AM EST Appointment XRay at [address] [place] [address] Kavitha Rai MD [facility] DR [place] [address] 06/14/2024 9:45 AM EST Appointment Hematology [place] [address] 06/14/2024 11:00 AM EST Appointment [place] [address] Consuelo Joyce APRN [facility] [place] [address] 06/14/2024 1:00 PM EST Office Visit Hematology [place] [address] Kavitha Rai MD [facility] DR [place] [address] 06/14/2024 2:30 PM EST Appointment Hematology [place] [address] 07/05/2024 10:30 AM EDT Appointment Hematology and Oncology at [place] [address] 07/05/2024 11:30 AM EDT Office Visit Hematology and Oncology at [place] [address] Consuelo Joyce APRN [facility] [place] [address] 07/05/2024 1:00 PM EDT Appointment Hematology and Oncology at [place] [address] 08/16/2024 9:20 AM EDT Office Visit Ophthalmology at [place] [address] Luz Jose, OD [facility] [place] [address] 01/14/2025 8:30 AM EDT Office Visit Psychiatry and Behavioral Health at [place] [address] Anna Oneill, PhD [facility] [place] [address] documented as of this encounter Visit Diagnoses Diagnosis Malignant neoplasm of right breast in female, estrogen receptor negative, unspecified site of breast documented in this encounter Care Teams Pheresis Nurse Relationship Specialty Start Date End Date Ryan Betancourt MD [address] [place] [phone] PCP - General Family Medicine 07/29/22 documented as of this encounter
--- OUTSIDE RECORDS SUMMARY | 2024-06-01 20:45 | XMS_ITS | Encounter Summary ---
Author Organization [facility] Address [facility] [place] [address] Care Team Providers Care Hotel Night Auditor Name Role Phone Ryan Betancourt MD Primary Care Provider [phone] Encounter Details Date Type Department Care Team (Latest Contact Info) Description 09/01/2022 Travel Social History Tobacco Use Types Packs/Day [...] AM EST Hospital En[place] [address] Consuelo Joyce APRN [facility] [place] [address] 06/14/2024 8:45 AM EST Appointment XRay at [address] [place] [address] Kavitha Rai MD [facility] DR HEMATOLOGY [place] [address] 06/14/2024 9:45 AM EST Appointment Hematology [place] [address] 06/14/2024 11:00 AM EST Appointment [place] [address] Consuelo Joyce APRN [facility] [place] [address] 06/14/2024 1:00 PM EST Office Visit Hematology [place] [phone] Kavitha Rai MD [facility] HEMATOLOGY [place] [address] 06/14/2024 2:30 PM EST Appointment Hematology [place] [address] 07/05/2024 10:30 AM EDT Appointment Hematology and Oncology at [place] [address] 07/05/2024 11:30 AM EDT Office Visit Hematology and Oncology at [place] [phone] Consuelo Joyce APRN [facility] [place] [address] 07/05/2024 1:00 PM EDT Appointment Hematology and Oncology at [place] [address] 08/16/2024 9:20 AM EDT Office Visit Ophthalmology at [place] [phone] Luz Jose, OD [facility] [place] [address] 01/14/2025 8:30 AM EDT Office Visit Psychiatry and Behavioral Health at [place] [address] Anna Oneill, PhD [facility] [place] [address] documented as of this encounter Visit Diagnoses Not on filedocumented in this encounter Care Teams Hotel Night Auditor Relationship Specialty Start Date End Date Ryan Betancourt MD [address] [place] [phone] PCP - General Family Medicine 07/29/22 documented as of this encounter
--- OUTSIDE RECORDS SUMMARY | 2024-06-01 20:45 | XMS_ITS | Encounter Summary ---
Author Organization [facility] [place] [address] Care Team Providers Care Evaporator Operator Molasses Name Role Phone Ryan Betancourt MD Primary Care Provider [phone] Encounter Details Date Type Department Care Team (Late st Contact Info) Description 08/11/2022 Telephone Hematology and Oncology at [facility] [place] [place] [phone] Madeline Verdugo RN Social History Tobacco Use Types Packs/Day [...] Telephone Encounter - Madeline Verdugo RN - 08/11/2022 4:53 PM EDT Wig order written and signed by provider. Call to patient to determine where she would like the order sent. Spoke to [employer]. She has not researched the venders. She just received the information today. Plan of Care: RN will send copy of wig order attached to a [employer] message with some information aboutConergy. Pt/responsible caregiver able to read back and verbalize understanding of plan and intention to comply with plan/disposition: Yes Pt/responsible caregiver able to verbalize understanding of and intention to call clinic with any new or worsening signs or symptoms: yes documented in this encounter Plan of Treatment Upcoming Encounters Date Type Department Care Team (Late st Contact Info) Description 06/14/2024 8:00 AM EST Hospital Encounter [place] [phone] Consuelo Joyce APRN [facility] [place] [address] 06/14/2024 8:45 AM EST Appointment XRay at [address] [place] [phone] Kavitha Rai MD [facility] HEMATOLOGY [place] [address] 06/14/2024 9:45 AM EST Appointment Hematology [place] [address] 06/14/2024 11:00 AM EST Appointment Nuclear Medicine at [place] [phone] Consuelo Joyce [facility] [place] [address] 06/14/2024 1:00 PM EST Office Visit Hematology and Oncology at [place] [phone] Kavitha Rai MD [facility] DR HEMATOLOGY [place] [address] 06/14/2024 2:30 PM EST Appointment Hematology and Oncology at [place] [phone] 07/05/2024 10:30 AM EDT Appointment Hematology and Oncology at [place] [phone] 07/05/2024 11:30 AM EDT Office Visit Hematology [place] [address] Consuelo Joyce, [facility] [place] [address] 07/05/2024 1:00 PM EDT Appointment Hematology [place] [address] 08/16/2024 9:20 AM EDT Office [place] [phone] Luz Jose OD [facility] [place] [address] 01/14/2025 8:30 AM EDT Office Visit Psychiatry [place] [address] Anna Oneill, PhD [facility] [place] [address] documented as of this encounter Visit Diagnoses Not on filedocumented in this encounter Care Teams Evaporator Operator Molasses Relationship Specialty Start Date End Date Ryan Betancourt MD [address] [place] [phone] PCP - General Family Medicine 07/29/22 documented as of this encounter
--- OUTSIDE RECORDS SUMMARY | 2024-06-01 20:45 | XMS_ITS | Encounter Summary ---
Author Organization [facility] Theodore [facility] [place] [address] Care Team Providers Care Gold Leaf Roller Name Role Phone Ryan Betancourt MD Primary Care Provider [phone] Reason for Visit * Reason Onset Date Comments Nausea 08/24/2022 Rash 08/24/2022 Urinary Frequency 08/24/2022 Encounter Details Date Type Department Care Team ([facility] Contact Info) Description 08/24/2022 Telephone [place]ematology [place] [phone] Madeline Verdugo RN Nausea; Rash; Urinary Frequency Social History Tobacco Use Types Packs/Day Years [...] Telephone Encounter - Madeline Verdugo RN - 08/24/2022 5:18 PM EDT Images from the original note were not included. TRIAGE CALL Message received from instant printer operator: Message from Consuelo Pitts sent at 08/24/2022 4:37 PM EDT ----- Regarding: Rash and n/v Contact: Soo just called and let me know that she's been having a hard time with n/v/d since infusion on 08/19. She's not been able to keep more than a few bites/sips of food down since then. She states that she's lost 7 [address] since meeting with Dr. Rai 08/17. She met with Pharmacy yesterday who upped Zofran and she's starting to feel a bit better today, states she's only thrown up once. She is wondering i f there is a vitamin she can take to help with nutrition when she's unable to eat as she has been. I mentioned Ensure, btu she's not sure she can tolerate it, but is not unwilling to try it if we suggest. She also notes severe rash started Tuesday and worsening daily, in groin area. States that area is very raw and red, swollen and extremely itchy and painful. She states that she also is having urinaryurgency and frequency since Tuesday. States that she is peeing constantly but that she often feels she has to go more than what actually is produced. States she's using the bathroom any time she feels any urge as she doesn't trust her body a the moment to tell her in time. She believes she is dehydrated d/t strong smelling dark urine, so is trying to increase water/gatorade/pedialyte intake asshe can through nausea. Would you please give her a call to discuss? [phone] rash is her biggest concern per her, as it's making her very uncomfortable Diagnosis/current treatment:Breast cancer/DOCEtaxel / TRASTuzumab / PERTuzumab (JIMI). Day1 Cycle 1 08/19/22 Caller: Patient Identified via name and : Yes Symptom Review per conversation with caller: Rash. Started ~Tuesday. In groin. Folds of legs and vagina. Itchy to start. Redness. Rash has not spread down legs but is spreading up abdomen. A&D ointment. Ooozing. Not inside vagina or anus. Took 50 mg benadryl this AM. Itching got slightly better. But when she urinates it dennison and when she wipes feels swollen. Increased urge to urinate but doesnot produce. Dark yellow. Tuesday AM started with nausea. [place] and aiyana sunita. Not able to eat or drink much since. Startedcompazine later in the day. Helped for about an hour. Did not take all nausea away but lightened itup. Vomited on Tuesday-Tuesday on and off all day. Follow up call from pharmacy and they added Zofran. Started the zofran yesterday at noon. Helps better than compazine but does not last the full 8 ho urs. She can now keep food down and get electrolyte drinks and water and aiyana sunita. Nausea upon waking but took zofran and keeping the nausea down to be able to eat and drink. Diarrhea since Tuesday. 4-5 bouts/day and one 7-8 bouts. Increased urge to go. It is mostly liquidbut with some brown pieces. Plan of Care and actions for worsening condition per discussion with Dian Lora PA Andrews, Patricia A, RN; Kavitha Rai MD Sent rx for betamethasone cream to [facility]. If she can send pic would be great. If she feels need to come in can be added to my schedule tahmina, but would urge to try cream first & come in if no improvement or worsens. Imodium take 2 and follow with one tablet with each additional bout of diarrhea. Protein drinks any brand Multivitamin Pt/responsible caregiver able to read back and verbalize understanding of plan and intention to comply with plan/disposition: Yes Pt/responsible caregiver able to verbalize understanding of and intention to call clinic with any new or worsening signs or symptoms: yes Follow up needed? yes sql report developer to call tomorrow check in. documented in this encounter Plan of Treatment Upcoming Encounters Date Type Department Care Team (Late st Contact Info) Description 06/14/2024 8:00 AM EST Hospital Encounter [place] [address] Consuelo Joyce APRN [facility] [place] [address] 06/14/2024 8:45 AM EST Appointment XRay at [address] [place] [address] Kavitha Rai MD [facility] [place] [address] 06/14/2024 9:45 AM EST Appointment Hematology [place] [address] 06/14/2024 11:00 AM EST Appointment [place] [address] Consuelo Joyce APRN [facility] [place] [address] 06/14/2024 1:00 PM EST Office Visit Hematology [place] [address] Kavitha Rai MD [facility] [place] [address] 06/14/2024 2:30 PM EST Appointment Hematology [place] [address] 07/05/2024 10:30 AM EDT Appointment Hematology and Oncology at [place] [phone] 07/05/2024 11:30 AM EDT Office Visit Hematology and Oncology at [place] [phone] Consuelo Joyce APRN [facility] [place] [address] 07/05/2024 1:00 PM EDT Appointment Hematology and Oncology at [place] [phone] 08/16/2024 9:20 AM EDT Office Visit Ophthalmology at [place] [phone] Luz Jose, [facility] [place] [address] 01/14/2025 8:30 AM EDT Office Visit Psychiatry and Behavioral Health at [place] [address] Anna Oneill, PhD [facility] [place] [address] documented as of this encounter Visit Diagnoses Not on filedocumented in this encounter Care Teams Gold Leaf Roller Relationship Specialty Start Date End Date Ryan Betancourt MD [address] [place] [phone] PCP - General Family Medicine 07/29/22 documented as of this encounter
--- OUTSIDE RECORDS SUMMARY | 2024-06-01 20:46 | XMS_ITS | Encounter Summary ---
Author Organization [facility] [place] [address] Care Team Providers Care Retail Route Supervisor Name Role Phone Ryan Betancourt MD Primary Care Provider Encounter Details Date Type Department Care Team (Late st Contact Info) Description 08/09/2022 Orders Only Hematology and Oncology at [facility] [place] [address] Adri Zimmerman, CYNTHIA Malignant neoplasm of left breast in female, estrogen receptor positive, unspecified site of breast; Family history of malignant neoplasm of breast; Family history of malignant neoplasm of gastrointestinal tract; Family history of malignant neoplasm of ovary Social History Tobacco Use Types Packs/Day Years Used Date Smoking Tobacco: Former Cigarettes 1996 Smokeless Tobacco: Former Overall Financial Resource Strain (CARDIA) Answe r [...] AM EST Hospital En[place] [phone] Consuelo Joyce APRN [facility] [place] [address] 06/14/2024 8:45 AM EST Appointment XRay at [address] [place] [address] Kavitha Rai MD [facility] [place] [address] 06/14/2024 9:45 AM EST Appointment Hematology [place] [address] 06/14/2024 11:00 AM EST Appointment [place] [address] Consuelo Joyce [facility] [place] [address] 06/14/2024 1:00 PM EST Office Visit Hematology [place] [address] Kavitha Rai MD [facility] [place] [address] 06/14/2024 2:30 PM EST Appointment Hematology [place] [address] 07/05/2024 10:30 AM EDT Appointment Hematology and Oncology at [place] [address] 07/05/2024 11:30 AM EDT Office Visit Hematology and Oncology at [place] [address] Consuelo Joyce APRN [facility] [place] [address] 07/05/2024 1:00 PM EDT Appointment Hematology and Oncology at [place] [phone] 08/16/2024 9:20 AM EDT Office Visit Ophthalmology at [place] [address] Luz Jose, [facility] [place] [place] [address] 01/14/2025 8:30 AM EDT Office Visit Psychiatry and Behavioral Health at [place] [address] Anna Oneill, PhD [facility] [place] [place] [address] documented as of this encounter Results * Research Venipuncture (08/11/2022 12:55 PM EDT) [facility] Research Venipuncture Drawn [facility] Blood 08/11/2022 12:5 5 PM EDT 08/11/2022 1:07 PM EDT Narrative Resulting Agency Comment Spec In Lab Isaac Bundy [place] [address] documented in this encounter Visit Diagnoses Diagnosis Malignant neoplasm of left breast in female, estrogen receptor positive, unspecified site of breast Family history of malignant neoplasm of breast Family history of malignant neoplasm of gastrointestinal tract Family history of malignant neoplasm of ovary documented in this encounter Care Teams Retail Route Supervisor Relationship Specialty Start Date End Date Ryan Betancourt MD [address] [place] [phone] PCP - General Family Medicine 07/29/22 documented as of this encounter
--- OUTSIDE RECORDS SUMMARY | 2024-06-01 20:46 | XMS_ITS | Encounter Summary ---
[place] [address] Care Team Providers Care Inpatient Pharmacist Name Role Phone Ryan Betancourt MD Primary Care Provider [phone] Reason for Referral * Diagnostic Test (Routine) - Closed Specialty Diagnoses / Procedures Referred By Ciaran lopez Referred To Contact Radiology Diagnoses Malignant neoplasm of left breast in female, estrogen receptor positive, unspecified site of breast Procedures MRI Thoracic Spine wwo Contrast Kavitha Rai MD [facility] DR HEMATOLOGY [place] [address] [place] [address] Referral ID Status Reason Start Date Expiration Date V isits Requested Visits Authorized [id number] Closed Specialty Service Requested 08/03/2022 10/01/2022 1 1 Encounter Details Date Type Department Care Team (Late st Contact Info) Description 07/31/2022 Orders Only Hematology [place] [phone] [facility] DR HEMATOLOGY [place] [address] Malignant neoplasm of left breast in female, [...] AM EST Hospital Encounter [place] [phone] [facility] [place] [address] 06/14/2024 8:45 AM EST Appointment XRay at [address] [place] [phone] [facility] [place] [address] 06/14/2024 9:45 AM EST Appointment Hematology and Oncology at [place] [address] 06/14/2024 11:00 AM EST Appointment Nuclear Medicine at [address] [facility] [place] [address] 06/14/2024 1:00 PM EST Office Visit Hematology and Oncology at [address] [facility] DR [place] [address] 06/14/2024 2:30 PM EST Appointment Hematology and Oncology at [place] [phone] 07/05/2024 10:30 AM EDT Appointment Hematology and Oncology at [place] [address] 07/05/2024 11:30 AM EDT Office Visit Hematology and Oncology at [place] [phone] Consuelo Joyce [facility] [place] [address] 07/05/2024 1:00 PM EDT Appointment Hematology and Oncology at [place] [phone] 08/16/2024 9:20 AM EDT Office Visit Ophthalmology at [place] [phone] [facility] [place] [address] 01/14/2025 8:30 AM EDT Office Visit Psychiatry and Behavioral [place] [address] Anna Oneill, PhD [facility] [place] [address] documented as of this encounter Results * MRI Thoracic Spine [...] ? Electronically signed by: Deejay Cottrell DO, [facility] ??([phone]), at 09/03/2022 9:57 AM Narrative 09/03/2022 9:57 [...] dorsal epidural disease extension between T8 and [id number] significant mass effect on thecal sac or [...] patients who have questions please contactthe health home care physical therapist that requested your imaging first. Kavitha Rai MD IMG MRI ORDERABLES documented in this encounter Visit Diagnoses Diagnosis Malignant neoplasm of left breast in female, estrogen receptor positive, unspecified site of breast Malignant neoplasm of left breast in female, estrogen receptor positive, unspecified site of breast documented in this encounter Care Teams Inpatient Pharmacist Relationship Specialty Start Date End Date Ryan Betancourt MD [address] [place] [phone] PCP - General Family Medicine 07/29/22 documented as of this encounter
--- OUTSIDE RECORDS SUMMARY | 2024-06-01 20:46 | XMS_ITS | Encounter Summary ---
Author Organization [facility] [place] [address] Care Team Providers Care Cold Type Composing Machine Operator Name Role Phone Unavailable Primary Care Provider Unavailabl e Encounter Details Date Type Department Care Team ([facility] st Contact Info) Description 07/09/2022 Notes Only Hematology and Oncology at [facility] [place] [address] Nelly Allred Social History Tobacco Use Types Packs/Day Years Used Date Smoking Tobacco: Never Assessed Sex and Gender Information Value Date Recorded Sex Assigned at Not on file Gender Identity Not on file Sexual Orientation Not on file documented as of this encounter Progress Notes * Nelly Allred - 07/09/2022 10:21 AM EDTSumkika: ABHI new breast cancer diagnosis New Breast Cancer Referral S[place] [id number] Biopsy Location Biopsy Date: 07.06.2022 Date of referral: 07.08.2022 [x]Packet sent [x]Patient notified of appointments Diagnoses: R Invasive ductal carcinoma High grade, modified SBR score = 8 - Lymphovascular invasion present Microcalcifications: N/A B - Right axilla, biopsy: - High grade invasive ductal carcinoma Receptors: ER/AL- Her2 + Tumor size: 6cm Scans: MRI, PetCT 07.28.2022 Lab: CBC,CMP 07.28.2022 Surgeon: Natalie 08.02.2022 Plastics: Date of Surgery: Med/Onc: Vahdat 07.29.2022 Rad/Onc: Physical Therapy: Videos [x] Early Stage [] DCIS [x] Adjuvant [] Recon Outside Records: []Path slides [] Images [] Clinic notes [] Image review ordered Neoadjuvant []Yes []No Pt is premenopausal documented in this encounter Plan of Treatment Upcoming Encounters Date Type Department Care Team (Late st Contact Info) Description 06/14/2024 8:00 AM EST Hospital Encounter [place] [phone] Consuelo Joyce [facility] [place] [address] 06/14/2024 8:45 AM EST Appointment XRay at [address] [place] [address] Kavitha Rai MD [facility] [place] [address] 06/14/2024 9:45 AM EST Appointment Hematology [place] [phone] 06/14/2024 11:00 AM EST Appointment [place] [phone] Consuelo Joyce [facility] [place] [address] 06/14/2024 1:00 PM EST Office Visit Hematology [place] [address] Kavitha Rai MD [facility] [place] [address] 06/14/2024 2:30 PM EST Appointment Hematology [place] [phone] 07/05/2024 10:30 AM EDT Appointment Hematology [place] [address] 07/05/2024 11:30 AM EDT Office Visit Hematology [place] [phone] Consuelo Joyce APRN [facility] [place] [address] 07/05/2024 1:00 PM EDT Appointment Hematology [place] [phone] 08/16/2024 9:20 AM EDT Office Visit Ophthalmology at [place] [phone] Luz Jose, OD [facility] [place] [address] 01/14/2025 8:30 AM EDT Office Visit Psychiatry and Behavioral Health at [place] [phone] Anna Oneill, PhD [facility] [place] [address] documented as of this encounter Visit Diagnoses Not on filedocumented in this encounter
--- OUTSIDE RECORDS SUMMARY | 2024-06-01 20:46 | XMS_ITS | Encounter Summary ---
Author Organization [place] [address] Care Team Providers Care Drill Sergeant Name Role Phone Unavailable Primary Care Provider Unavailabl e Reason for Referral * Diagnostic Test (Routine) - Closed Specialty Diagnoses / Procedures Referred By Ciaran lopez Referred To Contact Radiology Diagnoses Malignant neoplasm of right breast in female, estrogen receptor negative, unspecified site of breast Procedures NM PET CT Skull Base to Mid-thigh Rosaline Lea MD [facility] [address] [place] [address] [place] [address] Referral ID Status Reason Start Date Expiration Date V isits Requested Visits Authorized [id number] Closed Specialty Service Requested 07/09/2022 01/09/2024 1 1 Encounter Details Date Type Department Care Team (Late st Contact Info) Description 07/08/2022 Orders Only Hematology [place] [phone] Rosaline Lea MD [facility] [place] [address] Malignant neoplasm of right breast [...] AM EST Hospital Encounter Nuclear Medicine at [place] [phone] [facility] [place] [address] 06/14/2024 8:45 AM EST Appointment XRay at [address] [place] [address] Kavitha Rai MD [facility] [address] [place] [address] 06/14/2024 9:45 AM EST Appointment Hematology [place] [address] 06/14/2024 11:00 AM EST Appointment [place] [address] [facility] [place] [address] 06/14/2024 1:00 PM EST Office Visit Hematology [place] [address] Kavitha Rai MD [facility] [address] [place] [address] 06/14/2024 2:30 PM EST Appointment Hematology [place] [address] 07/05/2024 10:30 AM EDT Appointment Hematology [place] [address] 07/05/2024 11:30 AM EDT Office Visit Hematology and Oncology at [place] [phone] Consuelo Joyce APRN [facility] [place] [address] 07/05/2024 1:00 PM EDT Appointment Hematology and Oncology at [place] [address] 08/16/2024 9:20 AM EDT Office Visit Ophthalmology at [address] Luz Jose, OD [facility] [address] 01/14/2025 8:30 AM EDT Office Visit Psychiatry and Behavioral Health at [place] [address] Anna Oneill, PhD [facility] [address] documented as of this encounter Results * NM PET CT Skull Base to Mid-thigh (07/28/2022 4:24 PM EDT) Anatomical Region Laterality Modality Positron Emissio n Tomography (PET) Impressions 07/29/2022 10:32 AM EDT 1. ??Multiple FDG avid masses and diffuse FDG avid dermal thickening in the right breast, consistent with primary breast malignancy. 2. ??Boogie metastases in the right supraclavicular, right axillary, bilateral hilar, bilateral mediastinal, and bilateral internal mammary regions. 3. ??Multiple hepatic metastases. 4. ??Multiple osseous metastases. Thank you for letting us participate in the care of this patient. ??If you are a health care provider and have any questions regarding this report, please contact the number below. ??For patients who have questions please contact the health home care chaplain that requested your imaging first. ? Electronically signed by: David Jack MD, [facility] ([phone]), at 07/29/2022 10:32 AM Narrative 07/29/2022 10:32 AM EDT EXAMINATION: NM PET CT STANDARD SKULL BASE TO MID-THIGH CLINICAL HISTORY: Breast cancer, staging; breast cancer,Lymphovascular invasion present TECHNIQUE: Following IV injection of 06-irmqkp-5-deoxyglucose (FDG) a standard uptake of approximately 60 minutes, a noncontrast CT scan followed by a PET scan were acquired from the base of the skull to mid thighs. The noncontrast CT was used for anatomic localization and photon attenuation correction of the PET scan. Blood glucose level: 92 (mg/dL) FDG dose: 16.3 mCi COMPARISON: None FINDINGS: HEAD/NECK: Normal activity in all soft tissue regions of the neck and visualized lower head. No adenopathy. CHEST: Multiple FDG avid masses and diffuse FDG avid dermal thickening in the right breast. Extensive FDG adenopathy in the right upper and lower axillary regions extending into the right supraclavicular region. Extensive FDG avid adenopathy in the bilateral hilar, bilateral paratracheal, left anterior mediastinum, subcarinal, right lower paraesophageal, no adenopathy. And bilateral internal mammary regions. No suspicious pulmonary nodules. ABDOMEN/PELVIS: Multiple FDG avid lesions scattered throughout the liver, many of which can be seen as hypodense lesions on noncontrast CT. No adenopathy. SKELETON/EXTREMITIES: Multiple FDG avid osseous lesions scattered throughout the axial and proximal appendicular skeleton including within vertebral bodies and posterior elements of the thoracic, lumbar, sacral spine, bilateral pelvis, bilateral ribs, throughout the sternal body and inferior portion of manubrium, right acromion, and left humeral neck. The sternal body and manubrial lesions are associated with extensive mixed lytic sclerotic changes CT. Lesions in the posterior elements of T9 are associated with lytic changes, while the other lesions are either subtly lytic or have no abnormality on CT. There is no evidence of pathologic fracture or spinal canal involvement. Procedure Note David Jack MD - 07/29/2022 EXAMINATION: NM PET CT STANDARD SKULL BASE TO MID-THIGH CLINICAL HISTORY: Breast cancer, staging; breast cancer,Lymphovascularinvasion present TECHNIQUE: Following IV injection of 52-mlnrig-2-deoxyglucose (FDG) astandard uptake of approximately 60 minutes, a noncontrast CT scan followed by aPET scan were acquired from the base of the skull to mid thighs. The noncontrast CTwas used for anatomic localization and photon attenuation correction of thePET scan. Blood glucose level: 92 (mg/dL) FDG dose: 16.3 mCi COMPARISON: None FINDINGS: HEAD/NECK: Normal activity in all soft tissue regions of the neck and visualizedlower head. No adenopathy. CHEST: Multiple FDG avid masses and diffuse FDG avid dermal thickening in theright breast. Extensive FDG adenopathy in the right upper and lower axillary regionsextending into the right supraclavicular region. Extensive FDG avid adenopathy in the bilateral hilar, bilateralparatracheal, left anterior mediastinum, subcarinal, right lower paraesophageal, no adenopathy. And bilateral internal mammary regions. No suspicious pulmonary nodules. ABDOMEN/PELVIS: Multiple FDG avid lesions scattered throughout the liver, many of whichcan be seen as hypodense lesions on noncontrast CT. No adenopathy. SKELETON/EXTREMITIES: Multiple FDG avid osseous lesions scattered throughout the axial andproximal appendicular skeleton including within vertebral bodies and posteriorelements of the thoracic, lumbar, sacral spine, bilateral pelvis, bilateral ribs, throughout the sternal body and inferior portion of manubrium, rightacromion, and left humeral neck. The sternal body and manubrial lesions are associated with extensive mixedlytic sclerotic changes CT. Lesions in the posterior elements of T9 are associated with lytic changes,while the other lesions are either subtly lytic or have no abnormality on CT. There is no evidence of pathologic fracture or spinal canal involvement. IMPRESSION 1. Multiple FDG avid masses and diffuse FDG avid dermal thickening in theright breast, consistent with primary breast malignancy. 2. Boogie metastases in the right supraclavicular, right axillary,bilateral hilar, bilateral mediastinal, and bilateral internal mammary regions. 3. Multiple hepatic metastases. 4. Multiple osseous metastases. Thank you for letting us participate in the care of this patient. If youare a health care provider and have any questions regarding this report,please contact the number below. For patients who have questions please contactthe health home care chaplain that requested your imaging first. Electronically signed by: David Jack MD, [facility]([phone]), at 07/29/2022 10:32 AM Rosaline Lea MD IMG PET ORDERABLES documented in this encounter Visit Diagnoses Diagnosis Malignant neoplasm of right breast in female, estrogen receptor negative, unspecified site of breast Malignant neoplasm of right breast in female, estrogen receptor negative, unspecified site of breast documented in this encounter
--- OUTSIDE RECORDS SUMMARY | 2024-06-01 20:46 | XMS_ITS | Encounter Summary ---
Author Organization [facility] Address [facility] [place] [address] Care Team Providers Care Marketing Education Teacher Name Role Phone Unavailable Primary Care Provider Unavailabl e Encounter Details Date Type Department Care Team (Latest Contact Info) Description 07/28/2022 11:57 AM EDT - 07/28/2022 2:08 PM EDT Hospital En[place] [phone] Madina Canada MD [facility] [place] [address] Malignant neoplasm of left female breast, unspecified estrogen receptor status, unspecified site of breast Discharge Disposition: Home Social History Tobacco Use Types Packs/Day Years Used Date Smoking Tobacco: Never Assessed Overall Financial Resource Strain (CARDIA) Answe r [...] AM EST Hospital Encounter [place] [address] Consuelo Joyce APRN [facility] [place] [address] 06/14/2024 8:45 AM EST Appointment XRay at [address] [place] [address] Kavitha Rai MD [facility] [place] [address] 06/14/2024 9:45 AM EST Appointment Hematology [place] [address] 06/14/2024 11:00 AM EST Appointment [place] [address] Consuelo Joyce APRN [facility] [place] [address] 06/14/2024 1:00 PM EST Office Visit Hematology [place] [address] Kavitha Rai MD [facility] [place] [address] 06/14/2024 2:30 PM EST Appointment Hematology [place] [phone] 07/05/2024 10:30 AM EDT Appointment Hematology and Oncology at [place] [phone] 07/05/2024 11:30 AM EDT Office Visit Hematology and Oncology at [place] [phone] Consuelo Joyce APRN [facility] [place] [address] 07/05/2024 1:00 PM EDT Appointment Hematology [place] [address] 08/16/2024 9:20 AM EDT Office Visit Ophthalmology at [place] [phone] Luz Jose, CARSON [facility] [place] [address] 01/14/2025 8:30 AM EDT Office Visit Psychiatry and Behavioral Health at [place] [address] Anna Oneill, PhD [facility] [place] [address] documented as of this encounter Procedures Procedure Name Priority Date/Time Associated Diagnosis Comments RESEARCH MRI AIC-30 BREAST W CONTRAST UNILATERAL Routine 07/28/2022 2:00 PM EDT Malignant neoplasm of left female breast, unspecified estrogen receptor status, unspecified site of breast documented in this encounter Results * Research- MRI AIC-30 Breast W Contrast Unilateral (07/28/2022 2:00 PM EDT) Anatomical Region Laterality Modality Breast Magnetic Resonan ce Narrative 09/22/2022 7:53 PM EDT EXAMINATION: RESEARCH MRI AIC-30 BREAST W CONTRAST UNILATERAL CLINICAL HISTORY: breast cancer research ?? TECHNIQUE: Supine breast MRI Unilateral SUPINE breast MRI obtained after clinical prone MRI. Patient enrolled in [id number]. MRI obtained for research purposes only. Thank you for letting us participate in the care of this patient. ??If you are a health care provider and have any questions regarding this report, please contact the number below. ??For patients who have questions please contact the health pulmonary care nurse that requested your imaging first. ? Electronically signed by: Madina Gardner MD, [facility] ([phone]), at 09/22/2022 7:53 PM Procedure Note Madina Canada MD - 09/22/2022 EXAMINATION: RESEARCH MRI AIC-30 BREAST W CONTRAST UNILATERAL CLINICAL HISTORY: breast cancer research TECHNIQUE: Supine breast MRI Unilateral SUPINE breast MRI obtained after clinical prone MRI. Patient enrolled in [id number]. MRI obtained for research purposesonly. Thank you for letting us participate in the care of this patient. If youare a health care provider and have any questions regarding this report,please contact the number below. For patients who have questions please contactthe health pulmonary care nurse that requested your imaging first. Electronically signed by: Madina Gardner MD, [facility]([phone]), at 09/22/2022 7:53 PM Madina Maloney MD IMG RESE ARCH ORDERABLES documented in this encounter Visit Diagnoses Diagnosis Malignant neoplasm of left female breast, unspecified estrogen receptor status, unspecified site of breast documented in this encounter Administered Medications Inactive Administered Medications - up to 3 most recent administrations Medication Order MAR Action Action Date Dose Rate Site gadoterate meglumine (Dotarem) (0.5 mMol/mL) injection solution 21.78 mL 21.78 mL (0.2 mL/kg/dose ? 108.9 kg), Intravenous, ONCE PRN, 1 dose, Starting on Tue07/28/22 at 1439, Until Tue07/28/22 at 1345, Per Protocol, Routine Given 07/28/2022 1:45 PM EDT 23 mLs documented in this encounter
--- OUTSIDE RECORDS SUMMARY | 2024-06-01 20:46 | XMS_ITS | Encounter Summary ---
Author Organization [facility] [place] [address] Care Team Providers Care Cupola Tender Helper Name Role Phone Unavailable Primary Care Provider Unavailabl e Encounter Details Date Type Department Care Team (Late Contact Info) Description 07/23/2022 [place] [phone] [facility] DR DIAGNOSTIC RADIOLOGY [place] [phone] Malignant neoplasm of left female breast, unspecified estrogen receptor status, unspecified site of breast Social History Tobacco Use Types Packs/Day Years Used Date Smoking Tobacco: Never Assessed Sex and Gender Information Value Date Recorded Sex Assigned at Not on file Gender Identity Not on file Sexual Orientation Not on file documented as of this encounter Plan of Treatment Upcoming Encounters Date Type Department Care Team ([facility] Contact Info) Description 06/14/2024 8:00 AM EST Hospital Encounter [place] [address] [facility] [place] [address] 06/14/2024 8:45 AM EST Appointment XRay at [address] [place] [address] [facility] DR HEMATOLOGY AND ONCOLOGY [place] [phone] 06/14/2024 9:45 AM EST Appointment Hematology and Oncology at [place] [address] 06/14/2024 11:00 AM EST Appointment Nuclear Medicine at [address] [facility] [place] [place] [address] 06/14/2024 1:00 PM EST Office Visit Hematology and Oncology at [address] [facility] [place] [address] 06/14/2024 2:30 PM EST Appointment Hematology and Oncology at [place] [phone] 07/05/2024 10:30 AM EDT Appointment Hematology and Oncology at [place] [address] 07/05/2024 11:30 AM EDT Office Visit Hematology and Oncology at [place] [phone] [facility] [place] [address] 07/05/2024 1:00 PM EDT Appointment Hematology and Oncology at [place] [phone] 08/16/2024 9:20 AM EDT Office Visit Ophthalmology at [place] [phone] [facility] [place] [address] 01/14/2025 8:30 AM EDT Office Visit Psychiatry [place] [address] Anna Oneill, PhD [facility] [place] [address] documented as of this encounter Results * Research- MRI AIC-30 Breast W Contrast Unilateral (07/28/2022 2:00 PM EDT) Anatomical Region Laterality Modality Breast Magnetic Resonan ce Narrative 09/22/2022 7:53 PM EDT EXAMINATION: RESEARCH MRI AIC-30 BREAST W CONTRAST UNILATERAL CLINICAL HISTORY: breast cancer research ?? TECHNIQUE: Supine breast MRI Unilateral SUPINE breast MRI obtained after clinical prone MRI. Patient enrolled in [id number]. MRI obtained for research purposes only. Thank you for letting us participate in the care of this patient. ??If you are a health care provider and have any questions regarding this report, please contact the number below. ??For patients who have questions please contact the health respiratory care practitioner that requested your imaging first. ? Electronically signed by: Madina Gardner MD, [facility] ([phone]), at 09/22/2022 7:53 PM Procedure Note Madina Canada MD - 09/22/2022 EXAMINATION: RESEARCH MRI AIC-30 BREAST W CONTRAST UNILATERAL CLINICAL HISTORY: breast cancer research TECHNIQUE: Supine breast MRI Unilateral SUPINE breast MRI obtained after clinical prone MRI. Patient enrolled in [id number]. MRI obtained for research purposesonly. Thank you for letting us participate in the care of this patient. If youare a health care provider and have any questions regarding this report,please contact the number below. For patients who have questions please contactthe health respiratory care practitioner that requested your imaging first. Electronically signed by: Madina Gardner MD, [facility]([phone]), at 09/22/2022 7:53 PM Madina Maloney MD G RESE ARCH ORDERABLES documented in this encounter Visit Diagnoses Diagnosis Malignant neoplasm of left female breast, unspecified estrogen receptor status, unspecified site of breast Malignant neoplasm of left female breast, unspecified estrogen receptor status, unspecified site of breast documented in this encounter
--- OUTSIDE RECORDS SUMMARY | 2024-06-01 20:46 | XMS_ITS | Encounter Summary ---
Author Organization [facility] Address [facility] [place] [address] Care Team Providers Care Area Development Manager Name Role Phone Ryan Betancourt MD Primary Care Provider Encounter Details Date Type Department Care Team (Latest Contact Info) Description 08/02/2022 Travel Social History Tobacco Use Types Packs/Day [...] AM EST Hospital En[place] [address] Consuelo Joyce [facility] [place] [address] 06/14/2024 8:45 AM EST Appointment XRay at [address] [place] [address] Kavitha Rai MD [facility] DR HEMATOLOGY [place] [address] 06/14/2024 9:45 AM EST Appointment Hematology [place] [address] 06/14/2024 11:00 AM EST Appointment [place] [address] Consuelo Joyce [facility] [place] [address] 06/14/2024 1:00 PM EST Office Visit Hematology [place] [address] Kavitha Rai MD [facility] DR HEMATOLOGY [place] [address] 06/14/2024 2:30 PM EST Appointment Hematology [place] [address] 07/05/2024 10:30 AM EDT Appointment Hematology [place] [address] 07/05/2024 11:30 AM EDT Office Visit Hematology [place] [address] Consuelo Joyce APRN [facility] [place] [address] 07/05/2024 1:00 PM EDT Appointment Hematology and Oncology at [place] [phone] 08/16/2024 9:20 AM EDT Office [place] [address] Luz Jose, CARSON [facility] [place] [address] 01/14/2025 8:30 AM EDT Office Visit Psychiatry and Behavioral Health at [place] [phone] Anna Oneill, PhD [facility] [place] [address] documented as of this encounter Visit Diagnoses Not on filedocumented in this encounter Care Teams Area Development Manager Relationship Specialty Start Date End Date Ryan Betancourt MD [address] [place] [phone] PCP - General Family Medicine 07/29/22 documented as of this encounter
--- OUTSIDE RECORDS SUMMARY | 2024-06-01 20:46 | XMS_ITS | Encounter Summary ---
Author Organization [facility] Address [facility] [place] [address] Care Team Providers Care Garbage Truck Dispatcher Name Role Phone Ryan Betancourt MD Primary Care Provider [phone] Encounter Details Date Type Department Care Team (Late st Contact Info) Description 08/09/2022 Legacy Encounter Hematology and Oncology at [address] [address] Adri Zimmerman, [facility] Social History Tobacco Use Types Packs/Day Years [...] AM EST Hospital Encounter [place] [address] Consuelo Joyce APRN [facility] [place] [address] 06/14/2024 8:45 AM EST Appointment XRay at [address] [place] [address] Kavitha Rai MD [facility] DR HEMATOLOGY [place] [address] 06/14/2024 9:45 AM EST Appointment Hematology [place] [address] 06/14/2024 11:00 AM EST Appointment [place] [address] Consuelo Joyce CORE WINDING OPERATOR [facility] [place] [address] 06/14/2024 1:00 PM EST Office Visit Hematology [place] [address] Kavitha Rai MD [facility] HEMATOLOGY [place] [address] 06/14/2024 2:30 PM EST Appointment Hematology [place] [address] 07/05/2024 10:30 AM EDT Appointment Hematology [place] [address] 07/05/2024 11:30 AM EDT Office Visit Hematology [place] [address] Consuelo Joyce CORE WINDING OPERATOR [facility] [place] [address] 07/05/2024 1:00 PM EDT Appointment Hematology [place] [address] 08/16/2024 9:20 AM EDT Office Visit Ophthalmology at [place] [phone] Luz Jose, OD [facility] [place] [address] 01/14/2025 8:30 AM EDT Office Visit Psychiatry and Behavioral Health at [place] [phone] Anna Oneill, PhD [facility] [place] [address] documented as of this encounter Visit Diagnoses Not on filedocumented in this encounter Care Teams Garbage Truck Dispatcher Relationship Specialty Start Date End Date Ryan Betancourt MD [address] [place] [phone] PCP - General Family Medicine 07/29/22 documented as of this encounter
--- OUTSIDE RECORDS SUMMARY | 2024-06-01 20:46 | XMS_ITS | Encounter Summary ---
[place] [address] Care Team Providers Care Life Skills Teacher Name Role Phone Ryan Betancourt MD Primary Care Provider [phone] Reason for Visit * Reason Comments Genetic Evaluation * Consultation (Routine) - Closed Specialty Diagnoses / Procedures Referred By Ciaran lopez Referred To Contact Hematology and Oncology Diagnoses Malignant neoplasm of left breast in female, estrogen receptor positive, unspecified site of breast Kavitha Rai MD [facility] [address] H[place] [address] [facility] [address] [place] [address] Referral ID Status Reason Start Date Expiration Date V isits Requested Visits Authorized [id number] Closed Consult, Test & Treat 07/29/2022 07/29/2023 1 1 Encounter Details Date Type Department Care Team (Latest Contact Info) Description 08/09/2022 10:00 AM EDT TH Visit (TeleHealth) [facility] at [address] [address] Adri Zimmerman, LGC Malignant neoplasm of left breast in female, [...] as of this encounter Progress Notes * Adri Zimmerman LGC - 08/09/2022 10:00 AM EDT Soy San was seen by ROBYN Mccurdy in consultation at the request of Piotr Rai to advise regarding possible heritable predisposition to cancer. I spent 44 minutes of this telehealth encounter with the patient gathering medical and family history and discussing the likelihood of a genetic predisposition to cancer and the option of genetic testing. Reason for referral/Chief complaint Personal history of metastatic breast cancer. Family history of benign pancreatic tumor, multiple myeloma, skin, stomach, breast, and ovarian cancer. Medical history Ms. Soy San is a 41 year-old female who was recently diagnosed with metastatic breastcancer. She initially had some right breast discomfort and felt a mass in October 2021. She had a MMG and US on 11/17/21 that showed a 3 cm mass in her right breast. Follow-up right core biopsy on 11/23/21 was benign, told it was stromal fibrosis. Noted increase in size of mass and pain over the next several months. At the end of May 2022 , she insisted on seeing breast team because of increase in size and discomfort. Saw Dr Patino who sent her to . 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 PET CT on 07/28/22 noted several metastases, including soco, hepatic, and osseous metastases. Soo met with Dr. Rai on 07/29/22 and is scheduled to start chemotherapy the first week of August. Soo reports that she has never had a colonoscopy. Family History of Cancer Problem Relation Age of Onset ??? Cancer Father 47 multiple myeloma, hx of agent orange exposure ??? Tumor Brother benign pancreatic tumor that is growing ??? Ovarian Cancer Maternal Aunt 65 ??? Skin Cancer Maternal Aunt ??? Stomach Cancer Maternal Uncle 60 3 days after diagnosis ??? Skin Cancer Maternal Cousin ??? Skin Cancer Maternal Cousin ??? Breast Cancer Maternal Great-Aunt Maternal ethnic background is /Tanzanian. Paternal ethnic background is Ethiopian/Greenlandic/Tanzanian/Tunisian. There is no known Ashkenazi Adventist ancestry. Genetic risk assessment Based on personal and/or family history, the likelihood that Soo would be found to have a mutation in a cancer predisposition gene is high enough to offer the option of genetic testing. Specifically,Soo meets NCCN criteria for BRCA1/2 analysis due to her personal history of metastatic breast cancer at the age of 41 years. She also has a maternal family history of breast cancer (maternal great-aunt) and ovarian cancer (maternal aunt). We discussed that testing could potentially impact medical management, such as determining potential eligibility for PARP inhibitors, identify additional cancerrisks, as well as help to identify hereditary cancer risk for other family members. We discussed cancer risks associated with BRCA1/2, including breast, ovarian, prostate, and other cancers. We also reviewed medical management recommendations associated with mutations in the BRCA1 and BRCA2 genes, including high-risk breast cancer screening with mammography and breast MRIs vs prophylactic bilateral mastectomy, as well as prophylactic removal of the ovaries and fallopian tubes (bilateral salpingo-oophorectomy). Panel genetic testing for an inherited predisposition to cancer, including BRCA1/2, was discussed. The risks, benefits and limitations of panel genetic testing were reviewed, specifically a high rateof identifying a variant of uncertain significance, lack of knowledge of cancer risk for newly identified, moderate risk genes included in the panel and lack of effective screening, as well as cancerrisk for other cancers not observed in the family. We reviewed dominant inheritance, meaning that if a mutation is detected there is a 50% chance for Soo's son and full siblings to have also inherited the same gene alteration for the majority of genes being analyzed. Her maternal half- sister's risk is dependent on whether the mutation is maternallyor paternally inherited. Soo opted for testing with a combination of [employer] BRCAplus Panel and CancerNext-Expanded+RNA insight Panel, a next generation sequencing panel that simultaneously analyzes 77 genes, including BRCA1 and BRCA2, that contribute to increased risk for cancer. Soo was verbally consented and will be sent consent forms via [employer] to review, sign, and return. Orders for the blood draw will be placed after signed consents are received. Her blood sample will be drawn in [place] on 08/11/22 and sent to [employer] We reviewed [email or web address] billing policy. Soo will be notified by text and/or email once [facility] completes their benefits investigation if her estimated out of pocket cost is over $100. At that time, if Soo is concerned about the estimated test cost she will have the option to contact [facility] directly and either apply for [employer]'s patient assistance program to try and reduce cost of testing based on income information, cancel testing, or switch to a self-pay option of $250. If Soo does not respond to [email or web address], testing will be billed to her insurance as the default option. We discussed that the BRCAplus Panel results will come back first and take up to 5-12 calendar daysfrom when the lab receives the sample. The CancerNext- Expanded+RNA insight Panel results will take up to 2-3 weeks from when the lab receives the sample. Soo will be contacted via telephone after each test result become available. If positive, we will offer a follow-up appointment. At that time, natanael discuss with Soo the implications that this test result may have for her, as well as her family members. We will also provide Soo with screening guidelines for cancer prevention and early detection, as well as answer any questions she may have. documented in this encounter Plan of Treatment Upcoming Encounters Date Type Department Care Team (Late st Contact Info) Description 06/14/2024 8:00 AM EST Hospital Encounter [place] [address] Consuelo Joyce APRN [facility] [place] [address] 06/14/2024 8:45 AM EST Appointment XRay at [address] [place] [address] Kavitha Rai MD [facility] DR HEMATOLOG[place] [address] 06/14/2024 9:45 AM EST Appointment Hematology [place] [address] 06/14/2024 11:00 AM EST Appointment [place] [address] Consuelo Joyce APRN [facility] [place] [address] 06/14/2024 1:00 PM EST Office Visit Hematology [place] [address] Kavitha Ria MD [facility] DR HEMAT[place] [address] 06/14/2024 2:30 PM EST Appointment Hematology [place] [address] 07/05/2024 10:30 AM EDT Appointment Hematology and Oncology at [place] [address] 07/05/2024 11:30 AM EDT Office Visit Hematology and Oncology at [place] [address] Consuelo Joyce APRN [facility] [place] [address] 07/05/2024 1:00 PM EDT Appointment Hematology and Oncology at [place] [address] 08/16/2024 9:20 AM EDT Office Visit Ophthalmology at [place] [address] Luz Jose, CARSON [facility] [place] [address] 01/14/2025 8:30 AM EDT Office Visit Psychiatry and Behavioral Health at [place] [address] Anna Oneill, PhD [facility] [place] [address] Scheduled Referrals Name Type Priority Associated Diagnoses Orde r Schedule Referral to Familial Cancer Outpatient Referral Routine Malignant neoplasm of left breast in female, estrogen receptor positive, unspecified site of breast Ordered: 07/29/2022 documented as of this encounter Visit Diagnoses Diagnosis Malignant neoplasm of left breast in female, estrogen receptor positive, unspecified site of breast Family history of malignant neoplasm of breast Family history of malignant neoplasm of gastrointestinal tract Family history of malignant neoplasm of ovary documented in this encounter Care Teams Life Skills Teacher Relationship Specialty Start Date End Date Ryan Betancourt MD [address] [place] [phone] PCP - General Family Medicine 07/29/22 documented as of this encounter
--- OUTSIDE RECORDS SUMMARY | 2024-06-01 20:46 | XMS_ITS | Encounter Summary ---
Author Organization [facility] [place] [address] Care Team Providers Care Priming Powder Premix Blender Name Role Phone Ryan Betancourt MD Primary Care Provider [phone] Encounter Details Date Type Department Care Team (Late st Contact Info) Description 08/07/2022 Telephone Hematology [facility] Oncology [facility] [place] [address] Isaac Bundy MD Social History Tobacco Use Types Packs/Day [...] encounter Miscellaneous Notes * Telephone Encounter - Isaac Bundy MD - 08/07/2022 12:26 PM EDT Heme-Onc Staff I have reviewed the patient's record and, given personal and/or family history of cancer she shouldbe seen by a genetic counselor. This is scheduled for next week. Isaac Bundy MD database tester in Hematology-Oncology documented in this encounter Plan of Treatment Upcoming Encounters Date Type Department Care Team (Late st Contact Info) Description 06/14/2024 8:00 AM EST Hospital Encounter [place] [address] Consuelo Joyce APRN [facility] [place] [address] 06/14/2024 8:45 AM EST Appointment XRay at [address] [place] [address] Kavitha Rai MD [facility] DR HEMATOLOGY [place] [address] 06/14/2024 9:45 AM EST Appointment Hematology [place] [address] 06/14/2024 11:00 AM EST Appointment [place] [address] Consuelo Joyce APRN [facility] [place] [address] 06/14/2024 1:00 PM EST Office Visit Hematology and Oncology at [place] [address] Kavitha Rai MD [facility] DR HEMATOLOGY [place] [address] 06/14/2024 2:30 PM EST Appointment Hematology and Oncology at [place] [address] 07/05/2024 10:30 AM EDT Appointment Hematology and Oncology at [place] [address] 07/05/2024 11:30 AM EDT Office Visit Hematology and Oncology at [place] [address] Consuelo Joyce APRN [facility] [place] [address] 07/05/2024 1:00 PM EDT Appointment Hematology and Oncology at [place] [address] 08/16/2024 9:20 AM EDT Office Visit Ophthalmology at [place] [address] Luz Jose, CARSON [facility] [place] [address] 01/14/2025 8:30 AM EDT Office Visit Psychiatry and Behavioral Health at [place] [address] Anna Oneill, PhD [facility] [place] [address] documented as of this encounter Visit Diagnoses Not on filedocumented in this encounter Care Teams Priming Powder Premix Blender Relationship Specialty Start Date End Date Ryan Betancourt MD [address] [place] [phone] PCP - General Family Medicine 07/29/22 documented as of this encounter
--- OUTSIDE RECORDS SUMMARY | 2024-06-01 20:46 | XMS_ITS | Encounter Summary ---
Author Organization [facility] Address [facility] [place] [address] Care Team Providers Care Certified Phlebotomy Technician Name Role Phone Ryan Betancourt MD Primary Care Provider [phone] Encounter Details Date Type Department Care Team (Late st Contact Info) Description 08/02/2022 Notes Only Care Management [facility] [place] [phone] Lilian Gipson, POUND KEEPER Social History Tobacco Use Types Packs/Day Years [...] Progress Notes * Lilian Gipson MSW - 08/02/2022 10:46 AM EDT Comprehensive Breast Program (CBP) Surgical consult I'm able to meet with Soo again today following her surgical consult with Dr. Estrada. She is accompanied in the exam room by her Luis, and a [employer] team leader is present to take notes that will be transcribed for Soo. Soo's primary concern today is identifying avenues of financial assistance while she is out of workdoing treatment. 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 We review avenues of assistance that include community foundations and SSDI, and per our planning I send her an e-mail with information/details. Soo also identifies feeling angry that more was not done by her initial medical providers when she first presented with breast lump/discomfort in October last summer. She worries that things could be different if prompt action to address her concerns had been taken. Soo agrees this is an important part of her treatment journey to process and agrees to revisit it together at future follow up. Completed today: Brief assessment Supportive Counseling Financial resources Community Resource documented in this encounter Plan of Treatment Upcoming Encounters Date Type Department Care Team (Late st Contact Info) Description 06/14/2024 8:00 AM EST Hospital Encounter [place] [address] Consuelo Joyce APRN [facility] [place] [address] 06/14/2024 8:45 AM EST Appointment XRay at [address] [place] [address] Kavitha Rai MD [facility] DR [place] [address] 06/14/2024 9:45 AM EST Appointment Hematology and Oncology at [place] [phone] 06/14/2024 11:00 AM EST Appointment Nuclear Medicine at [place] [phone] Consuelo Joyce APRN [facility] [place] [address] 06/14/2024 1:00 PM EST Office Visit Hematology and Oncology at [place] [phone] Kavitha Rai MD [facility] DR [place]EM[place] [address] 06/14/2024 2:30 PM EST Appointment Hematology [place] [address] 07/05/2024 10:30 AM EDT Appointment Hematology [place] [address] 07/05/2024 11:30 AM EDT Office Visit Hematology [place] [address] Consuelo Joyce [facility] [place] [address] 07/05/2024 1:00 PM EDT Appointment Hematology [place] [address] 08/16/2024 9:20 AM EDT Office [place] [address] Luz Jose, OD [facility] [place] [address] 01/14/2025 8:30 AM EDT Office Visit Psychiatry [place] [address] Anna Oneill, PhD [facility] [address] documented as of this encounter Visit Diagnoses Not on filedocumented in this encounter Care Teams Certified Phlebotomy Technician Relationship Specialty Start Date End Date Ryan Betancourt MD [address] [place] [phone] PCP - General Family Medicine 07/29/22 documented as of this encounter
--- OUTSIDE RECORDS SUMMARY | 2024-06-01 20:46 | XMS_ITS | Encounter Summary ---
Author Organization [facility] Address [facility] [place] [address] Care Team Providers Care Leadite Man Name Role Phone Unavailable Primary Care Provider Unavailabl e Encounter Details Date Type Department Care Team (Latest Contact Info) Description 07/28/2022 Travel Social History Tobacco Use Types Packs/Day [...] AM EST Hospital Encounter Nuclear Medicine at [place] [phone] [facility] [place] [address] 06/14/2024 8:45 AM EST Appointment XRay at [address] [place] [address] Kavitha Rai MD [facility] [place] [address] 06/14/2024 9:45 AM EST Appointment Hematology [place] [address] 06/14/2024 11:00 AM EST Appointment [place] [address] [facility] [place] [address] 06/14/2024 1:00 PM EST Office Visit Hematology [place] [address] Kavitha Rai MD [facility] [place] [address] 06/14/2024 2:30 PM EST Appointment Hematology [place] [address] 07/05/2024 10:30 AM EDT Appointment Hematology [place] [address] 07/05/2024 11:30 AM EDT Office Visit Hematology and Oncology at [place] [address] Consuelo Joyce APRN [facility] [place] [address] 07/05/2024 1:00 PM EDT Appointment Hematology and Oncology at [place] [address] 08/16/2024 9:20 AM EDT Office Visit Ophthalmology at [place] [address] Luz Jose, CARSON [facility] [place] [address] 01/14/2025 8:30 AM EDT Office Visit Psychiatry and Behavioral Health at [place] [address] Anna Oneill, PhD [facility] [place] [address] documented as of this encounter Visit Diagnoses Not on filedocumented in this encounter
--- OUTSIDE RECORDS SUMMARY | 2024-06-01 20:46 | XMS_ITS | Encounter Summary ---
Author Organization [facility] [place] [address] Care Team Providers Care Manager Programming Name Role Phone Ryan Betancourt MD Primary Care Provider [phone] Encounter Details Date Type Department Care Team (Late st Contact Info) Description 07/29/2022 Orders Only Radiology at [facility] [place] [phone] Javier Bowman MD Social History Tobacco Use Types Packs/Day [...] AM EST Hospital Encounter [place] [address] Consuelo Joyce APRN [facility] [address] 06/14/2024 8:45 AM EST Appointment XRay at [address] [place] [address] Kavitha Rai MD [facility] DR [place] [address] 06/14/2024 9:45 AM EST Appointment Hematology [place] [address] 06/14/2024 11:00 AM EST Appointment [place] [address] Consuelo Joyce APRN [facility] [address] 06/14/2024 1:00 PM EST Office Visit Hematology [place] [address] Kavitha Rai MD [facility] DR [place] [address] 06/14/2024 2:30 PM EST Appointment Hematology [place] [address] 07/05/2024 10:30 AM EDT Appointment Hematology and Oncology at [place] [address] 07/05/2024 11:30 AM EDT Office Visit Hematology and Oncology at [place] [phone] Consuelo Joyce APRN [facility] [place] [address] 07/05/2024 1:00 PM EDT Appointment Hematology and Oncology at [place] [address] 08/16/2024 9:20 AM EDT Office Visit Ophthalmology at [place] [address] Luz Jose, CARSON [facility] [place] [address] 01/14/2025 8:30 AM EDT Office Visit Psychiatry and Behavioral Health at [place] [address] Anna Oneill, PhD [facility] [place] [address] documented as of this encounter Visit Diagnoses Not on filedocumented in this encounter Care Teams Manager Programming Relationship Specialty Start Date End Date Ryan Betancourt MD [address] [place] [phone] PCP - General Family Medicine 07/29/22 documented as of this encounter
--- OUTSIDE RECORDS SUMMARY | 2024-06-01 20:46 | XMS_ITS | Encounter Summary ---
Author Organization Formerly [facility], 1928–1983 Address One [facility] [place] [address] Care Team Providers Care Sewer Name Role Phone Ryan Betancourt MD Primary Care Provider [phone] Encounter Details Date Type Department Care Team (Late st Contact Info) Description 07/16/2022 Notes Only Care Management One [facility] [place] [phone] Lilian Gipson, BIOLOGY INTERN Social History Tobacco Use Types Packs/Day Years [...] of this encounter Progress Notes * Lilian Gipson, BIOLOGY INTERN - 07/16/2022 9:01 AM EDT CBP New Patient Outreach I'm able to contact Soy via telephone today regarding upcoming consult on 07/29/[address] Rai, and to introduce myself and CBP services. Soy will be accompanied to consults either by Deejay (brother) or Luis (fiance); they are excellent supports for her. She got the treatment handbook in the mail. She was vomiting earlier this week and notes that this has been going on for about 1.5 months; she thinks this is because of the breast cancer. Soy palpated a mass on 11/01/21. She called women's wellness at [facility] and had mammogram, US, andbiopsy; she reports she was told findings were benign. She was not contacted again after asking about next steps. Since then her breast had increased in size and she has had constant pain -- at this time it hurts to laugh, cough, or move her arm. She vomits regularly, and it was this symptom that led her to seek additional work up, leading to bc dx. She has the sensation of a bruise on her sternum. She notes her breast is double its usual size. She vomits regularly and feels fatigued. She also notes that she has had a few nodules on her vulva for the past year; one disappeared and two remain.She hasn't had a development team lead checkup since 2019 and has never had an abnormal PAP. She typically sees [facility] for development team lead care. She further notes that she is working on completing work on her teeth, with two upcoming fillings and a possible root canal or extraction. 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 She is planning on seeing friends tonight and intends to drink and check out -- she has some concern about whether this will aggravate existing cancer. We review CDC guidelines for ETOH intake for women and the importance of stress reduction for her overall health. Soy recognizes the importance of these things and would like to enjoy herself tonight as a last hurrah. 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 Tavaresotes that her son is autistic and she sometimes wonders if she is also on the spectrum. She is interested to hear treatment recommendations of Drs. Rai and Natalie, and acknowledges while thisdx is overwhelming and scary, but I can't let it run my life. She reports having a very good suppo rt system between her friends and family. Soy understands she will meet with Dr. Rai on 07/[address] Estrada on 08/02. She hasmy contact information and is encouraged to use it at any time. We look forward to seeing her soon. Completed today: Brief assessment Care Coordination documented in this encounter Plan of Treatment Upcoming Encounters Date Type Department Care Team (Late st Contact Info) Description 06/14/2024 8:00 AM EST Hospital Encounter [place] [address] Consuelo Joyce APRN [facility] [address] 06/14/2024 8:45 AM EST Appointment XRay at [address] [place] [address] Kavitha Rai MD [facility] [place] [address] 06/14/2024 9:45 AM EST Appointment Hematology [place] [address] 06/14/2024 11:00 AM EST Appointment [place] [address] Consuelo Joyce APRN [facility] [place] [address] 06/14/2024 1:00 PM EST Office Visit Hematology and Oncology at [place] [phone] Kavitha Rai MD [facility] [place] [address] 06/14/2024 2:30 PM EST Appointment Hematology [place] [phone] 07/05/2024 10:30 AM EDT Appointment Hematology [place] [address] 07/05/2024 11:30 AM EDT Office Visit Hematology and Oncology at [place] [address] Consuelo Joyce APRN [facility] [place] [address] 07/05/2024 1:00 PM EDT Appointment Hematology and Oncology at [place] [phone] 08/16/2024 9:20 AM EDT Office Visit Ophthalmology at [place] [address] Luz Jose, CARSON [facility] [place] [address] 01/14/2025 8:30 AM EDT Office Visit Psychiatry and Behavioral Health at [place] [address] Anna Oneill, PhD [facility] [place] [address] documented as of this encounter Visit Diagnoses Not on filedocumented in this encounter Care Teams Sewer Relationship Specialty Start Date End Date Ryan Betancourt MD [address] [address] PCP - General Family Medicine 07/29/22 documented as of this encounter
--- OUTSIDE RECORDS SUMMARY | 2024-06-01 20:46 | XMS_ITS | Encounter Summary ---
Author Organization [place] [address] Care Team Providers Care Director Recreation Name Role Phone Ryan Betancourt MD Primary Care Provider [phone] Reason for Visit * Reason Onset Date Comments Chemotherapy Teaching 08/09/2022 Pre chemo call Encounter Details Date Type Department Care Team (Late st Contact Info) Description 08/09/2022 Telephone Hematology [place] [address] Coby Harrell, DISPATCHER SHIP PILOT ROOM Chemotherapy Teaching (Pre chemo call ) Social History Tobacco Use Types Packs/Day Years [...] encounter Miscellaneous Notes * Telephone Encounter - Coby Harrell RN - 08/09/2022 8:15 AM EDT Pre-chemotherapy Telephone Call Call placed to patient to confirm first time chemotherapy visit scheduled for 08/19 07 labs, 08 infusion. Spoke with pt. Patient scheduled to receive: docetaxel, trastuzumab, pertuzumab Supportive care medications to take at home before treatment:n/a Confirmed that the patient: ??? knows where to park ??? understands where the infusion suite is located and where to arrive ??? Will be received chemotherapy teaching and educational materials ??? knows that if they will be here through noon, we offer lunch and snacks ??? understands that Infusing chemotherapy often takes a few hours o encourage patient to bring books or a computer (wireless access available) ??? knows to wear loose comfortable clothing ??? understands that they can only have one (1) visitor in infusion suite at a time Pt reports pain in her chest, and back which she occasionally take tylenol for w/ varying levels ofrelief. Her sister gave her some marijuana to use for nausea once she starts chemo. She requested amedical marijuana card. Offered to discuss pain medication w/provider and she declined at present saying she would prefer not to start anything right now. Encouraged her to contact clinic should she c hange her mind. Reminded patient to call [phone] with any questions or symptoms before or after treatment. ~ 20min call documented in this encounter Plan of Treatment Upcoming Encounters Date Type Department Care Team (Late st Contact Info) Description 06/14/2024 8:00 AM EST Hospital Encounter [place] [address] Consuelo Joyce APRN [facility] [place] [address] 06/14/2024 8:45 AM EST Appointment XRay at [address] [place] [address] Kavitha Rai MD [facility] DR HEMATOLOGY [place] [address] 06/14/2024 9:45 AM EST Appointment Hematology [place] [address] 06/14/2024 11:00 AM EST Appointment [place] [address] Consuelo Joyce [facility] [place] [address] 06/14/2024 1:00 PM EST Office Visit Hematology [place] [address] Kavitha Rai MD [facility] DR HEMATOLOGY [place] [address] 06/14/2024 2:30 PM EST Appointment Hematology [place] [address] 07/05/2024 10:30 AM EDT Appointment Hematology [place] [address] 07/05/2024 11:30 AM EDT Office Visit Hematology [place] [address] Consuelo Joyce APRN [facility] [place] [address] 07/05/2024 1:00 PM EDT Appointment Hematology [place] [address] 08/16/2024 9:20 AM EDT Office [place] [address] Luz Jose, OD [facility] [place] [address] 01/14/2025 8:30 AM EDT Office Visit Psychiatry and Behavioral Health at [place] [address] Anna Oneill, PhD [facility] [place] [address] documented as of this encounter Visit Diagnoses Not on filedocumented in this encounter Care Teams Director Recreation Relationship Specialty Start Date End Date Ryan Betancourt MD [address] [place] [phone] PCP - General Family Medicine 07/29/22 documented as of this encounter
--- OUTSIDE RECORDS SUMMARY | 2024-06-01 20:46 | XMS_ITS | Encounter Summary ---
[place] [address] Care Team Providers Care Drafter Engineering Name Role Phone Ryan Betancourt MD Primary Care Provider [phone] Reason for Referral * Diagnostic Test (Routine) - Closed Specialty Diagnoses / Procedures Referred By Ciaran lopez Referred To Contact Radiology Diagnoses Malignant neoplasm of left breast in female, estrogen receptor positive, unspecified site of breast Procedures IR Biopsy Liver Percutaneous Mario Hernandez PA [facility] DR HEMATOLOGY AND ONCOLOGY [place], [place] [phone] [place] [address] [place] [address] Referral ID Status Reason Start Date Expiration Date V isits Requested Visits Authorized [id number] Closed Specialty Service Requested 07/29/2022 01/29/2024 1 1 * Consultation (Routine) - Closed Specialty Diagnoses / Procedures Referred By Ciaran lopez Referred To Contact Hematology and Oncology Diagnoses Malignant neoplasm of left breast in female, estrogen receptor positive, unspecified site of breast Kavitha Rai MD [facility] DR HEMATOLOGY [place] [address] [facility] Hem Onc [address] [place] [phone] Referral ID Status Reason Start Date Expiration Date V isits Requested Visits Authorized [id number] Closed Consult, Test & Treat 07/29/2022 07/29/2023 1 1 * Diagnostic Test (Routine) - Closed Specialty Diagnoses / Procedures Referred By Ciaran lopez Referred To Contact Radiology Diagnoses Malignant neoplasm of left breast in female, estrogen receptor positive, unspecified site of breast Procedures IR Mediport Placement Mario Hernandez PA [facility] DR HEMATOLOGY AND ONCOLOGY [place], [place] [address] [place] [address] [place] [address] Referral ID Status Reason Start Date Expiration Date V isits Requested Visits Authorized [id number] Closed Specialty Service Requested 07/29/2022 01/29/2024 1 1 * Diagnostic Test (Routine) - Closed Specialty Diagnoses / Procedures Referred By Ciaran lopez Referred To Contact Cardiology Diagnoses Malignant neoplasm of left breast in female, estrogen receptor positive, unspecified site of breast Procedures Echocardiogram Transthoracic Mario Hernandez PA [facility] DR HEMATOLOGY AND ONCOLOGY [address] [place] [address] Referral ID Status Reason Start Date Expiration Date V isits Requested Visits Authorized [id number] Closed Specialty Service Requested 07/29/2022 07/29/2023 1 1 Reason for Visit * Reason Comments Advice Only * Consultation (Routine) - Closed Specialty Diagnoses / Procedures Referred By Ciaran lopez Referred To Contact Hematology and Oncology Diagnoses Breast cancer R IDC, NODE + ER/MS- Her2 + Procedures NEW PATIENT Gianna Patino, DO [address] [place] [address] [place] [address] Kavitha Rai MD [facility] DR HEMATOLOGY [place] [address] Referral ID Status Reason Start Date Expiration Date Visits Re quested Visits Authorized [id number] Closed 07/29/2022 07/29/2023 1 1 Encounter Details Date Type Department Care Team (Late st Contact Info) Description 07/29/2022 2:00 PM EDT Office Visit Hematology and Oncology at [facility] [place] [address] Kavitha Rai MD [facility] DR HEMATOLOGY [place] [address] Malignant neoplasm of left breast in female, estrogen receptor positive, unspecified site of breast Social History Tobacco Use Types Packs/Day Years Used Date Smoking Tobacco: Former Cigarettes 1996 Smokeless Tobacco: Former Tobacco Cessation:Counseling Given: Not Answered Overall Financial Resource Strain (CARDIA) Answe r [...] Sign Reading Time Taken Comments Blood Pressure 145/99 07/29/2022 1:49 PM EDT Pulse 76 07/29/2022 1:49 PM EDT Temperature 36.9 ??C (98.4 ??F) 07/29/2022 1:49 PM ED T Respiratory Rate 18 07/29/2022 1:49 PM EDT Oxygen Saturation 99% 07/29/2022 1:49 PM EDT Inhaled Oxygen Concentration - - Weight 110.8 kg (244 lb 4.3 oz) 07/29/2022 1:49 PM EDT Height 164.8 cm (5' 4.88) 07/29/2022 1:49 PM ED T Body Mass Index 40.8 07/29/2022 1:49 PM EDT documented in this encounter Progress Notes * Kavitha Rai MD - 07/29/2022 2:00 PM EDT Soy San is a 41 y.o. female with With a locally advanced and probably stage 4 HER 2 alexa enriched breast cancer here for an opinion regarding the next step in her care. She is referred by CBP She is here by herself Records were reviewed which included imaging ( mammogram, US, MRI, PET/CT, Ultrasounds that were non breast, CTs, ), surgical reports, pathology reports and physician notes. In total approximately 50pages of prior records were reviewed prior to today's appointment. Breast Cancer History as follows: October 31, [...] breast, consistent with primary breast malignancy. 2. Soco metastases in the right supraclavicular, right axillary, bilateral hilar, bilateral mediastinal, and bilateral internal mammary regions. 3. Multiple hepatic metastases. 4. Multiple osseous metastases PMH: None PSH: tubal ligation @ 15 years ago MEDS: none ALL: none SH/FH Non smoker Very little ETOH 1 biological child, 22. 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 Breasts: Right breast:markedly edematous involving entire breast. No discrete mass. Pinkish sq nodules @3 oc( picture taken) Right axilla [address] Left breast: [...] is s/p a right breast and axillarybiopsy. I recommend the following: Chemo antibodies , Ruthy regimen with THP with a re-evaluation at the end of the chemo as to whether she is a candidate to continue the HP portion. We touched on surgery +/- RT. We discussed the standard is not to operate on an intact primary however sometimes we do pursue that in patients who a achieve a sustained complete response to systemic therapy. 1. Complete EOD and do a MRI of brain 2. Arrange a biopsy to confirm stage 4 disease- suspect that sternum might be the best location. Would send NGS on this biopsy to identify additional therapeutic targets 3. Echocardiogram 4. Mediport 5. MRI of T spine: has point tenderness at T9 area and a lytic lesion 6. Genetic testing 7. Plan is to start THP in 2 weeks. 8. THP + onpro orders entered. Capped taxotere dose at a BSA= 2.0 Total time spent: 80 minutes with > 50% spend in discussion of above Future Appointments Date Time Provider Department Center 07/29/2022 2:00 PM Kavitha Rai MD [facility] HEM ONC [facility] 08/02/2022 9:00 AM Susana Estrada MD [facility] SURG [facility] documented in this encounter H&P Notes * Javier Bowman MD - 07/29/2022 2:00 PM EDT Images from the original note were not included. INTERVENTIONAL RADIOLOGY FOCUSED H&P and PRE-PROCEDURE NOTE: PCP: Ryan Betancourt MD Referring Provider: Mario Hernandez Planned Procedure: Planned procedure: Ultrasound-guided liver biopsy, targeted lesion Procedure Indication: Breast cancer with metastases Procedure Request: Interventional Radiology Service contacted by Heme-onc at 3:30 regarding the procedure request below. Presenting Diagnosis/ Complaint: Soy San is a 41 y.o. female with diagnosis of new right invasive ductal carcinoma. Recent PET/CT from 07/28 demonstrates several FDG avid lesions within the liver, skeleton, and soco regions suspicious for metastases. IR consulted for biopsy. Past Medical/Surgical History: There is no problem list on file for this patient. No past medical history on file. Past Surgical History: Procedure Laterality Date ??? MAMMO US BIOPSY LYMPH NODE RIGHT Right 07/06/2022 Mammo US Biopsy Lymph Node Right 07/06/2022 Akhil Fregoso MD [facility] RAD MAMMOGRAPHY ??? MAMMO US BIOPSY RIGHT Right 07/06/2022 Mammo Us Biopsy Right 07/06/2022 Akhil Fregoso MD [facility] RAD MAMMOGRAPHY Medications: No current outpatient medications [...] PROT 6.9 07/28/2022 K 4.0 07/28/2022 Imaging: Physical Exam: Pending (to be performed in angio the day of procedure) ASA: Pending (to be assessed in angio the day of procedure) Mallampati Class: Pending (to be assessed in angio the day of procedure) Assessment: 41 y.o. female with new diagnosis of breast cancer referred to IR for percutaneous biopsy of suspected metastases. On review of imaging, a dominant right hepatic lobe metastasis is amendable for image guided biopsy, will plan with ultrasound guidance. We will scan in pre on day of procedure to assess lesion visualization. Reviewed with Attending: Dr. Moreno Plan: Planned procedure: Ultrasound-guided liver biopsy, targeted lesion Labs to be performed day of procedure: No labs Sedation: Moderate (Conscious sedation) Prophylactic antibiotic : None Contrast: No contrast Additional medications for procedure: Lidocaine Planned access site: Right upper quadrant Position: Supine Consent: Pending Medications to discontinue (and days held): None Case Urgency:: G3- Elective Outpatient intervention over14 days 07/29/2022 documented in this encounter Plan of Treatment Upcoming Encounters Date Type Department Care Team (Late st Contact Info) Description 06/14/2024 8:00 AM EST Hospital En[place] [address] Consuelo Joyce [facility] [place] [address] 06/14/2024 8:45 AM EST Appointment XRay at [address] [place] [address] Kavitha Rai MD [facility] DR HEMATOLOGY [place] [address] 06/14/2024 9:45 AM EST Appointment Hematology [place] [address] 06/14/2024 11:00 AM EST Appointment [place] [address] Consuelo Joyce [facility] [place] [address] 06/14/2024 1:00 PM EST Office Visit Hematology [place] [address] Kavitha Rai MD [facility] DR HEMATOLOGY [place] [address] 06/14/2024 2:30 PM EST Appointment Hematology [place] [address] 07/05/2024 10:30 AM EDT Appointment Hematology [place] [address] 07/05/2024 11:30 AM EDT Office Visit Hematology [place] [address] Consuelo Joyce APRN [facility] [place] [address] 07/05/2024 1:00 PM EDT Appointment Hematology [place] [address] 08/16/2024 9:20 AM EDT Office Visit Ophthalmology at [place] [address] Luz Jose, CARSON [facility] [place] [address] 01/14/2025 8:30 AM EDT Office Visit Psychiatry and Behavioral Health at [place] [address] Anna Oneill, PhD [facility] [place] [address] Scheduled Referrals Name Type Priority Associated Diagnoses Orde r Schedule Referral to Familial Cancer Outpatient Referral Routine Malignant neoplasm of left breast in female, estrogen receptor positive, unspecified site of breast Ordered: 07/29/2022 documented as of this encounter Results * IR Biopsy Liver Percutaneous (08/12/2022 9:18 [...] Kavitha Rai MD IMG IR ORDERABLES * ECHO COMPLETE (08/11/2022 12:09 PM EDT) EF 60 HEARTLAB SYSTEM Anatomical Region Laterality Modality Cardiac Other 08/11/2022 11:0 7 AM EDT Narrative 08/11/2022 12:40 PM EDT ? Echocardiogram Report Name: MARLENESOY VELASCO ?Study Date: 08/11/2022 11:07 AMBP: 139/84 mmHg ? Patient Location: 4A : 1980 ? Height: 165 cm ? Account: [id number] Age: 41 yrs ? Weight: 111 kg Gender: Female ?BSA: 2.2 m2 Ordering Physician: KAVITHA RAI Referring Physician: MARIO HERNANDEZ Performed By: Neelima Beltran RDCS Reason For Study: Malignant neoplasm of left breast in female Exam Location: [facility]. Interpretation Summary This was essentially a normal study. See report for findings. Procedure [id number]. Suboptimal quality. This study is limited because [...] Date: 1:07 AMBP: 139/84 mmHg Patient Location: 4A : 1980 Height: 165 cm Account: [id number] Age: 41 yrs Weight: 111 kg Gender: Female BSA: 2.2 m2 Ordering Physician: KAVITHA RAI Referring Physician: MARIO HERNANDEZ Performed By: Neelima Beltran RDCS Reason For Study: Malignant neoplasm of left breast in female Exam Location: [facility]. Interpretation Summary This was essentially a normal study. See report for findings. Procedure Complete-[id number]. Suboptimal quality. This study is limited because [...] negative documented in this encounter Care Teams Drafter Engineering Relationship Specialty Start Date End Date Ryan Betancourt MD [address] [place] [phone] PCP - General Family Medicine 07/29/22 documented as of this encounter
--- OUTSIDE RECORDS SUMMARY | 2024-06-01 20:46 | XMS_ITS | Encounter Summary ---
Author Organization [facility] [place] [address] Care Team Providers Care Marketing Information Coordinator Name Role Phone Unavailable Primary Care Provider Unavailabl e Encounter Details Date Type Department Care Team (Latest Contact Info) Description 07/06/2022 1:49 PM EDT - 07/06/2022 11:59 PM EDT Hospital [place] [phone] Akhil Fregoso MD [facility] [place] [address] Abnormal finding on breast imaging Discharge Disposition: [...] AM EST Hospital Encounter [place] [phone] Consuelo Joyce APRN [facility] [place] [address] 06/14/2024 8:45 AM EST Appointment XRay at [address] [place] [phone] Kavitha Rai MD [facility] DR HEMATOLOGY [place] [address] 06/14/2024 9:45 AM EST Appointment Hematology and Oncology at [place] [address] 06/14/2024 11:00 AM EST Appointment Nuclear Medicine at [address] Consuelo Joyce APRN [facility] [place] [address] 06/14/2024 1:00 PM EST Office Visit Hematology and Oncology at [address] Kavitha Rai MD [facility] [place] [address] 06/14/2024 2:30 PM EST Appointment Hematology and Oncology at [place] [address] 07/05/2024 10:30 AM EDT Appointment Hematology and Oncology at [place] [address] 07/05/2024 11:30 AM EDT Office Visit Hematology and Oncology at [place] [phone] Consuelo Joyce [facility] [place] [address] 07/05/2024 1:00 PM EDT Appointment Hematology and Oncology at [place] [phone] 08/16/2024 9:20 AM EDT Office Visit Ophthalmology at [place] [phone] Luz Jose OD [facility] [place] [place] [address] 01/14/2025 8:30 AM EDT Office Visit Psychiatry [place] [address] Anna Oneill, PhD [facility] [address] documented as of this encounter Procedures Procedure Name Priority Date/Time Associated Diagnosis Comments MAMMO BREAST US LIMITED RIGHT Routine 07/06/2022 2:15 PM EDT Abnormal finding on breast imaging documented in this encounter Results * US Breast Limited Right (07/06/2022 2:15 PM EDT) Anatomical Region Laterality Modality Breast Right Mammography Impressions 07/06/2022 3:49 PM EDT RIGHT BI-RADS Category 5: Highly Suggestive of Malignancy - Appropriate Action Should Be Taken MANAGEMENT: Recommend ultrasound-guided biopsy of right breast mass and right axillary lymph adenopathy. Thank you for letting us participate in the care of this patient. ??If you are a health care provider and have any questions regarding this report, please contact the number below. ??For patients who have questions please contact the health home care and home health aides teacher that requested your imaging first. ? Narrative 07/06/2022 3:49 PM EDT DIAGNOSTIC ULTRASOUND OF THE RIGHT BREAST CLINICAL HISTORY: 41-year-old with palpable right upper breast mass for which she underwent biopsy in November 2021 showing stromal fibrosis (per patient). The mass is larger, with increasing discomfort, skin changes including erythema and thickening as well as axillary lymphadenopathy seen on recent outside imaging. For evaluation and biopsy. COMPARISONS: Prior outside imaging available in PACS. AREA SCANNED: Right axilla and right upper breast. FINDINGS: RIGHT BREAST: At 10:00, about 7 to 8 cm from the nipple, there is an approximately 5.8 x 3.3 x 6.2 cm irregular, hypoechoic mass with irregular margins corresponding to the findings on outside mammogram dated 06/23/2022. Further medially at 1:00, there are more irregular hypoechoic masses with an overall extent of about 4.2 x 11.9 cm. RIGHT AXILLA: Multiple markedly abnormal lymph nodes without visible bari are seen in the low right axilla. The largest measures about 3.9 x 1.6 cm. LESION SUMMARY: RIGHT BREAST LESION #1 6 cm Mass ??Upper Outer Quadrant 10 OClock 8 cm from the nipple LESION #2: Right axillary adenopathy. Akhil Fregoso MD IMG MAMMO ORDERABLES documented in this encounter Visit Diagnoses Diagnosis Abnormal finding on breast imaging Other (abnormal) findings on radiological examination of breast documented in this encounter
--- OUTSIDE RECORDS SUMMARY | 2024-06-01 20:46 | XMS_ITS | Encounter Summary ---
Author Organization [facility] [place] [address] Care Team Providers Care Bariatric Coordinator Name Role Phone Ryan Betancourt MD Primary Care Provider [phone] Encounter Details Date Type Department Care Team (Late st Contact Info) Description 07/30/2022 Orders Only Radiology at [facility] [place] [phone] Javier Bowman MD Social History Tobacco Use [...] on file documented as of this encounter H&P Notes * Javier Bowman MD - 07/30/2022 8:11 AM [...] Lymph Node Right 07/06/2022 Akhil Fregoso MD [facility] RAD MAMMOGRAPHY ??? MAMMO US BIOPSY RIGHT Right 07/06/2022 Mammo Us Biopsy Right 07/06/2022 Akhil Fregoso MD [facility] RAD MAMMOGRAPHY Medications: No current outpatient [...] over14 days 07/30/2022 documented in this encounter Plan of Treatment Upcoming Encounters Date Type Department Care Team (Late st Contact Info) Description 06/14/2024 8:00 AM EST Hospital Encounter [place] [address] Consuelo Joyce [facility] [place] [address] 06/14/2024 8:45 AM EST Appointment XRay at [address] [place] [address] Kavitha Rai MD [facility] [place] [address] 06/14/2024 9:45 AM EST Appointment Hematology [place] [address] 06/14/2024 11:00 AM EST Appointment [place] [address] Consuelo Joyce [facility] [place] [address] 06/14/2024 1:00 PM EST Office Visit Hematology [place] [address] Kavitha Rai MD [facility] [place] [address] 06/14/2024 2:30 PM EST Appointment Hematology [place] [address] 07/05/2024 10:30 AM EDT Appointment Hematology [place] [address] 07/05/2024 11:30 AM EDT Office Visit Hematology [place] [phone] Consuelo Joyce APRN [facility] [place] [address] 07/05/2024 1:00 PM EDT Appointment Hematology [place] [address] 08/16/2024 9:20 AM EDT Office Visit Ophthalmology at [place] [phone] Luz Jose, OD [facility] [place] [address] 01/14/2025 8:30 AM EDT Office Visit Psychiatry and Behavioral Health at [place] [phone] Anna Oneill, PhD [facility] [place] [address] documented as of this encounter Visit Diagnoses Not on filedocumented in this encounter Care Teams Bariatric Coordinator Relationship Specialty Start Date End Date Ryan Betancourt MD [address] [place] [phone] PCP - General Family Medicine 07/29/22 documented as of this encounter
--- OUTSIDE RECORDS SUMMARY | 2024-06-01 20:46 | XMS_ITS | Encounter Summary ---
Author Organization [facility] [place] [address] Care Team Providers Care Reconciling Clerk Name Role Phone Ryan Betancourt MD Primary Care Provider [phone] Reason for Visit * Reason Onset Date Comments Disability Paperwork 08/10/2022 Encounter Details Date Type Department Care Team (Late st Contact Info) Description 08/10/2022 Telephone Hematology [place] [phone] Theroux, Dinorah E Disability Paperwork Social History Tobacco Use Types Packs/Day Years [...] Miscellaneous Notes * Telephone Encounter - Dinorah Sue - 08/10/2022 12:34 PM EDT Therapeutic Cannabis Application Written Verification form completed. Pending provider review and signature. documented in this encounter Plan of Treatment Upcoming Encounters Date Type Department Care Team (Late st Contact Info) Description 06/14/2024 8:00 AM EST Hospital Encounter [place] [address] Consuelo Joyce APRN [facility] [place] [address] 06/14/2024 8:45 AM EST Appointment XRay at [address] [place] [address] Kavitha Rai MD [facility] DR HEMATOLOG[place] [address] 06/14/2024 9:45 AM EST Appointment Hematology [place] [address] 06/14/2024 11:00 AM EST Appointment [place] [phone] Consuelo Joyce APRN [facility] [place] [address] 06/14/2024 1:00 PM EST Office Visit Hematology and Oncology at [place] [address] Kavitha Rai MD [facility] DR HEMATOLOGY [place] [address] 06/14/2024 2:30 PM EST Appointment Hematology and Oncology at [place] [address] 07/05/2024 10:30 AM EDT Appointment Hematology and Oncology at [place] [address] 07/05/2024 11:30 AM EDT Office Visit Hematology and Oncology at [place] [address] Consuelo Joyce APRN [facility] [place] [address] 07/05/2024 1:00 PM EDT Appointment Hematology [place] [address] 08/16/2024 9:20 AM EDT Office Visit Ophthalmology at [place] [address] Luz Jose, CAR[facility] [place] [address] 01/14/2025 8:30 AM EDT Office Visit Psychiatry and Behavioral Health at [place] [address] Anna Oneill, PhD [facility] [address] documented as of this encounter Visit Diagnoses Not on filedocumented in this encounter Care Teams Reconciling Clerk Relationship Specialty Start Date End Date Ryan Betancourt MD [address] [place] [phone] PCP - General Family Medicine 07/29/22 documented as of this encounter
--- OUTSIDE RECORDS SUMMARY | 2024-06-01 20:46 | XMS_ITS | Encounter Summary ---
Author Organization [facility] [place] [address] Care Team Providers Care Schedule Hanger Name Role Phone Unavailable Primary Care Provider Unavailabl e Reason for Referral * Diagnostic Test (Routine) - Closed Specialty Diagnoses / Procedures Referred By Ciaran lopez Referred To Contact Radiology Diagnoses Malignant neoplasm of right breast in female, estrogen receptor negative, unspecified site of breast Procedures MRI Breast wwo Contrast Susana Kamara MD [facility] [place] [address] [place] [address] Referral ID Status Reason Start Date Expiration Date V isits Requested Visits Authorized [id number] Closed Specialty Service Requested 07/08/2022 01/09/2024 1 1 Encounter Details Date Type Department Care Team (Late st Contact Info) Description 07/08/2022 Orders Only Hematology [place] [address] Candida Schmidt, PhD [facility] DR [facility] [place] [id number] Malignant neoplasm of right breast in female, [...] Hospital Encounter Nuclear Medicine at [place] [phone] Consuelo Joyce [facility] [place] [address] 06/14/2024 8:45 AM EST Appointment XRay at [address] [place] [address] Kavitha Rai MD [facility] DR [place] [address] 06/14/2024 9:45 AM EST Appointment Hematology [place] [address] 06/14/2024 11:00 AM EST Appointment [place] [address] Consuelo Joyce [facility] [place] [address] 06/14/2024 1:00 PM EST Office Visit Hematology [place] [address] Kavitha Rai MD [facility] DR [place] [address] 06/14/2024 2:30 PM EST Appointment Hematology [place] [address] 07/05/2024 10:30 AM EDT Appointment Hematology [place] [address] 07/05/2024 11:30 AM EDT Office Visit Hematology [place] [phone] Consuelo Joyce ORIENTAL MEDICINE PRACTITIONER [facility] [place] [address] 07/05/2024 1:00 PM EDT Appointment Hematology [place] [phone] 08/16/2024 9:20 AM EDT Office [place] [address] Luz Jose, OD [facility] [place] [address] 01/14/2025 8:30 AM EDT Office Visit Psychiatry [place] [phone] Anna Oneill, PhD [facility] [place] [address] documented as of this encounter Results * MRI Breast wwo Contrast Bilat (07/28/2022 1:25 PM EDT) Anatomical Region Laterality Modality Breast Bilateral Magnetic Resonan ce Impressions 07/29/2022 8:25 AM EDT 2. ??Very large multilobulated invasive ductal carcinoma involving the entire central RIGHT breast and extending to the nipple. Marked skin thickening and edema which I feel is most likely due to the extensive soco metastases producing lymphedema although there is some skin enhancement in the upper inner quadrant and lower outer quadrants raising the possibility of an inflammatory breast cancer. 3. ??Extensive RIGHT axillary and internal mammary nodes 4. ??Findings highly suspicious for malignant involvement of the sternum with extension outside of the sternum . RECOMMENDATION:Consider staging PET scan. Skin biopsy if clinically indicated LEFT BREAST BI-RADS BI-RADS Category 1: Negative RIGHT BREAST BI-RADS BI-RADS Category 6: Known Biopsy-Proven Malignancy Thank you for letting us participate in the care of this patient. ??If you are a health care provider and have any questions regarding this report, please contact the number below. ??For patients who have questions please contact the health nanny caregiver that requested your imaging first. ? Narrative 07/29/2022 8:25 AM EDT BILATERAL BREAST MRI CLINICAL INDICATION: Breast staging. 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 Computer algorithm analysis for lesion detection and kinetic contrast enhancement curve analysis was performed, using Reunify software. COMPARISON STUDIES: Compared and/or correlated with prior studies including mammogram and ultrasound from 06/23/2022 and 07/06/2022. FINDINGS: Background Enhancement Pattern (first post Dotarem image): None/Minimal (<25% breast) Amount of Fibroglandular Tissue: Scattered fibroglandular tissue LEFT Breast:No abnormal enhancement RIGHT Breast:There is marked diffuse skin thickening throughout the RIGHT breast. The RIGHT breast is diffusely edematous including the skin. The nipple is inverted There is mild enhancement in the skin in the upper inner quadradrant and the lower outer quadrant. The remainder of the skin does not enhance The patient's known malignancy is a large multilobulated mass or multiple connected masses involving the majority of the central breast with linear nonmass enhancement extending to the nipple.. This measures 10.5 x 5.5 x 4.5 cm. The clip is present in the posterior aspect of this mass The RIGHT breast has diffusely enlarged blood vessels RIGHT BREAST LESION 1: ??0.5 cm multiple masses Central ??12 O'Clock 0 cm from the nipple by MRI Mass/post surgical change: Shape: Irregular Margins: Not circumscribed - Irregular Enhancement: Rim Kinetics: Initial upslope: Fast Delayed phase: Washout Lymph Node Basins/Other: There are least 8 markedly abnormal level 1 and level 2 lymph nodes in the RIGHT axilla, the largest is 3.6 cm and contains a biopsy clip. This large node is irregular interfaces suspicious for extranodal invasion.. There is a 2 cm interpectoral node. 1.4 cm RIGHT internal mammary node The sternum is diffusely abnormal with heterogeneous enhancement throughout the body of the sternum as well as rim enhancement surrounding the sternum, some of which is nodular. There is a 1.2 cm mass extending from the mid body of the sternum. Procedure Note Evelyn Ngo MD - 07/29/2022 BILATERAL BREAST MRI CLINICAL INDICATION: Breast staging. New diagnosis of high-grade invasiveductal carcinoma RIGHT breast with soco metastases TECHNIQUE: Multiplanar sequences were obtained pre- and post- Dotarem enhancement,to include SPGR weighted dynamic run-off and subtraction sequences obtainedafter the intravenous administration of 33 ccs of Dotarem. Computer algorithmanalysis for lesion detection and kinetic contrast enhancement curve analysis was performed, using Reunify software. COMPARISON STUDIES: Compared and/or correlated with prior studies including mammogram andultrasound from 06/23/2022 and 07/06/2022. FINDINGS: Background Enhancement Pattern (first post Dotarem image): None/Minimal(<25% breast) Amount of Fibroglandular Tissue: Scattered fibroglandular tissue LEFT Breast:No abnormal enhancement RIGHT Breast:There is marked diffuse skin thickening throughout theRIGHT breast. The RIGHT breast is diffusely edematous including the skin. Thenipple is inverted There is mild enhancement in the skin in the upper innerquadradrant and the lower outer quadrant. The remainder of the skin does not enhanceThe patient's known malignancy is a large multilobulated mass or multipleconnected masses involving the majority of the central breast with linear nonmass enhancement extending to the nipple.. This measures 10.5 x 5.5 x 4.5 cm.The clip is present in the posterior aspect of this mass The RIGHT breast has diffusely enlarged blood vessels RIGHT BREAST LESION 1: 0.5 cm multiple masses Central 12 O'Clock 0 cm from the nipple by MRI Mass/post surgical change: Shape: Irregular Margins: Not circumscribed - Irregular Enhancement: Rim Kinetics: Initial upslope: Fast Delayedphase: Washout Lymph Node Basins/Other: There are least 8 markedly abnormal level 1 andlevel 2 lymph nodes in the RIGHT axilla, the largest is 3.6 cm and contains abiopsy clip. This large node is irregular interfaces suspicious for extranodal invasion.. There is a 2 cm interpectoral node. 1.4 cm RIGHT internalmammary node The sternum is diffusely abnormal with heterogeneous enhancementthroughout the body of the sternum as well as rim enhancement surrounding thesternum, some of which is nodular. There is a 1.2 cm mass extending from the mid body ofthe sternum. IMPRESSION 2. Very large multilobulated invasive ductal carcinoma involving theentire central RIGHT breast and extending to the nipple. Marked skin thickeningand edema which I feel is most likely due to the extensive soco metastases producing lymphedema although there is some skin enhancement in the upperinner quadrant and lower outer quadrants raising the possibility of aninflammatory breast cancer. 3. Extensive RIGHT axillary and internal mammary nodes 4. Findings highly suspicious for malignant involvement of the sternumwith extension outside of the sternum . RECOMMENDATION:Consider staging PET scan. Skin biopsy if clinicallyindicated LEFT BREAST BI-RADS BI-RADS Category 1: Negative RIGHT BREAST BI-RADS BI-RADS Category 6: Known Biopsy-Proven Malignancy Thank you for letting us participate in the care of this patient. If youare a health care provider and have any questions regarding this report,please contact the number below. For patients who have questions please contactthe health nanny caregiver that requested your imaging first. Susana Estrada MD [facility] [place] * (ABNORMAL) Comprehensive metabolic panel (non-fasting) (07/28/2022 11:51 AM EDT) Glucose 100 65 - 199 mg/dL [facility] Comment:Diabetes: >=200 mg/d L plus symptoms Blood Urea Nitrogen 18 8 - 18 mg/dL [facility] Creatinine 0.87 0.70 - 1.20 mg/dL [facility] Sodium 138 135 - 145 mmol/L [facility] Potassium 4.0 3.5 - 5.0 mmol/L [facility] Comment: Please note: ??Patients with WBC >100,000 may have falsely elevated Potassium levels. ??For accurate Potassium quantification in these patients send serum separator tube (gold top) for subsequent determinations. ??Contact the Clinical Chemistry Laboratory if there are any questions. Chloride 104 98 - 107 mmol/L [facility] Carbon Dioxide 24 22 - 31 mmol/L [facility] Anion Gap 10 5 - 15 mmol/L [facility] Calcium 9.0 8.5 - 10.5 mg/dL [facility] Protein, Total 6.9 6.1 - 8.0 g/dL [facility] Albumin 4.0 3.2 - 5.2 g/dL [facility] Aspartate Aminotransferase 19 0 - 30 unit/L [facility] Alanine Aminotransferase 13 0 - 30 unit/L [facility] Alkaline Phosphatase 115(H) 35 - 105 unit/L [facility] Bilirubin, Total 0.3 0.2 - 1.3 mg/dL [facility] Est Glomerular Filtration Rate 85 >=60 mL/min/1. 73 m?? [facility] Comment: This patient's estimated GFR was [...] and symptoms in addition to eGFR. Blood 07/28/2022 11:5 1 AM EDT 07/28/2022 12:13 PM EDT Narrative Resulting Agency Comment Spec In Lab Susana Estrada MD CHEMISTRY ORDERABLE S [facility] [place] [address] documented in this encounter Visit Diagnoses Diagnosis Malignant neoplasm of right breast in female, estrogen receptor negative, unspecified site of breast Malignant neoplasm of right breast in female, estrogen receptor negative, unspecified site of breast documented in this encounter
--- OUTSIDE RECORDS SUMMARY | 2024-06-01 20:46 | XMS_ITS | Encounter Summary ---
Author Organization [facility] [place] [address] Care Team Providers Care Fleet Administrator Name Role Phone Unavailable Primary Care Provider Unavailabl e Encounter Details Date Type Department Care Team (Late st Contact Info) Description 07/20/2022 Telephone Genetics at [facility] [place] [phone] Ana Luisa Kimble Social History Tobacco Use Types Packs/Day Years Used Date Smoking Tobacco: Never Assessed Sex and Gender Information Value Date Recorded Sex Assigned at Not on file Gender Identity Not on file Sexual Orientation Not on file documented as of this encounter Miscellaneous Notes * Telephone Encounter - Ana Luisa Kimble - 07/21/2022 10:08 AM EDT I CALLED [employer] BACK TO SEE IF DOS 07/06/2022 COULD STILL HAVE A RETRO AUTH ENTERED FOR GENETIC TESTING. THEY SAID THAT IT WAS TOO FAR BACK FOR A RETRO AUTH. REF # REG V 07.21.2022 10:02AM EST. I SENT AN EMAIL TO PASS TO SEE IF THE PATIENT HAS ANY OTHER INSURANCE TO USE. * Telephone Encounter - Ana Luisa Kimble - 07/20/2022 2:03 PM EDT I CALLED [employer] TO SEE IF AUTH WOULD BE REQUIRED FOR CPT 10880. THE MEDICAL PORTION OF THE POLICY ENDED ON 07/16/2022. I WILL LET DELPHINE KNOW OF THIS FINDING. documented in this encounter Plan of Treatment Upcoming Encounters Date Type Department Care Team (Late st Contact Info) Description 06/14/2024 8:00 AM EST Hospital Encounter Nuclear Medicine at [place] [phone] Consuelo Joyce [facility] [place] [address] 06/14/2024 8:45 AM EST Appointment XRay at [address] [place] [address] Kavitha Rai MD [facility] DR HEMATOLOGY [place] [address] 06/14/2024 9:45 AM EST Appointment [place] [address] 06/14/2024 11:00 AM EST Appointment [place] [address] Consuelo Joyce [facility] [place] [address] 06/14/2024 1:00 PM EST Office Visit [place] [address] Kavitha Rai MD [facility] DR HEMATOLOGY [place] [address] 06/14/2024 2:30 PM EST Appointment [place] [address] 07/05/2024 10:30 AM EDT Appointment [place] [address] 07/05/2024 11:30 AM EDT Office Visit [place] [address] Consuelo Joyce APRN [facility] [place] [address] 07/05/2024 1:00 PM EDT Appointment Hematology and Oncology at [place] [address] 08/16/2024 9:20 AM EDT Office Visit Ophthalmology at [place] [address] Luz Jose, OD [facility] [place] [address] 01/14/2025 8:30 AM EDT Office Visit Psychiatry and Behavioral Health at [place] [address] Anna Oneill, PhD [facility] [place] [address] documented as of this encounter Visit Diagnoses Not on filedocumented in this encounter
--- OUTSIDE RECORDS SUMMARY | 2024-06-01 20:46 | XMS_ITS | Encounter Summary ---
Author Organization [facility] [place] [address] Care Team Providers Care Field Service Specialist Name Role Phone Unavailable Primary Care Provider Unavailabl e Encounter Details Date Type Department Care Team (Latest Contact Info) Description 07/06/2022 1:17 PM EDT - 07/06/2022 1:48 PM EDT Hospital En[place] [address] Evelyn Ngo MD [facility] [place] [address] Abnormal finding on breast imaging Discharge Disposition: [...] AM EST Hospital Encounter [place] [address] Consuelo Joyce APRN [facility] [place] [address] 06/14/2024 8:45 AM EST Appointment XRay at [address] [place] [address] Kavitha Rai MD [facility] DR [place] [address] 06/14/2024 9:45 AM EST Appointment Hematology and Oncology at [place] [address] 06/14/2024 11:00 AM EST Appointment Nuclear Medicine at [place] [address] Consuelo Joyce APRN [facility] [place] [address] 06/14/2024 1:00 PM EST Office Visit Hematology and Oncology at [place] [address] Kavitha Rai MD [facility] [place] [address] 06/14/2024 2:30 PM EST Appointment Hematology and Oncology at [place] [address] 07/05/2024 10:30 AM EDT Appointment Hematology and Oncology at [place] [address] 07/05/2024 11:30 AM EDT Office Visit Hematology and Oncology at [place] [phone] Consuelo Joyce, [facility] [place] [address] 07/05/2024 1:00 PM EDT Appointment Hematology and Oncology at [place] [phone] 08/16/2024 9:20 AM EDT Office Visit Ophthalmology at [place] [phone] Luz Jose OD [facility] [place] [place] [address] 01/14/2025 8:30 AM EDT Office Visit Psychiatry and [place] [address] Anna Oneill, PhD [facility] [place] [address] documented as of this encounter Procedures Procedure Name Priority Date/Time Associated Diagnosis Comments MAMMO DIAGNOSTIC WITHOUT CAD RIGHT Routine 07/06/2022 3:09 PM EDT Abnormal finding on breast imaging documented in this encounter Results * Mammo Diagnostic Without Cad Right (07/06/2022 3:09 PM EDT) Anatomical Region Laterality Modality Breast Right Mammography Addenda Addendum by Akhil Fregoso MD on 07/09/2022 1:36 PM EDT --------ADDENDUM #1-------- ULTRASOUND GUIDED BIOPSY OF THE RIGHT BREAST CLINICAL HISTORY: Right upper outer quadrant mass and axillary adenopathy. 6 cm Mass at 10:00 Radian apex cm from the nipple, and right axillary adenopathy. PROCEDURAL DETAILS: Informed consent was obtained. LESION 1: - RIGHT BREAST MASS: Sterile technique was deployed. Approximately 10 cc used for local anesthesia. A small skin incision was made and a biopsy was performed under ultrasound guidance. 4 core biopsy specimens were obtained using a Achieve 14g device. Biopsy specimens were not radiographed. A CLIPPATE [place] 14G marker clip was placed. LESION 2-RIGHT AXILLARY ADENOPATHY: Sterile technique was deployed. Approximately 10 cc used for local anesthesia. A small skin incision was made and a biopsy was performed under ultrasound guidance. 4 core biopsy specimens were obtained using a Inrad 18G device. A Calvin Twirl marker clip was placed. Cranio-caudal and lateral digital mammography performed to determine biopsy marker placement. The venous clip is seen within the right breast mass, however, the axillary clip and node were not included on the image. Note is made of marked skin thickening extensively seen around the area of low. COMPLICATIONS: None. PROCEDURAL ATTESTATION: Resident: None IMAGING DIFFERENTIAL DIAGNOSIS: IDC, inflammatory cancer PATHOLOGIC DIAGNOSIS: Lesion #1: Invasive ductal carcinoma, high grade. Lesion #2: Metastatic lymph node, invasive ductal carcinoma IMPRESSION: Concordant result RECOMMENDATION: Surgical consultation as discussed with the patient and conveyed to the Comprehensive Breast Program. Results were phoned to the patient on 07/08/2022 4:43 PM REVIEW PATH CONFERENCE?: No Preliminary report signed by: Clarke Patino at 07/08/2022 4:44 PM I have personally reviewed the image(s) and the resident's interpretation and agree with the findings, Akhil Fregoso at 07/09/2022 1:31 PM Thank you for letting us participate in the care of this patient. ??If you are a health care provider and have any questions regarding this report, please contact the number below. ??For patients who have questions please contact the health wound care coordinator that requested your imaging first. ? --------ORIGINAL REPORT -------- ULTRASOUND GUIDED BIOPSY OF THE RIGHT BREAST CLINICAL HISTORY: Right upper outer quadrant mass and axillary adenopathy. 6 cm Mass at 10:00 Radian apex cm from the nipple, and right axillary adenopathy. PROCEDURAL DETAILS: Informed consent was obtained. LESION 1: - RIGHT BREAST MASS: Sterile technique was deployed. Approximately 10 cc used for local anesthesia. A small skin incision was made and a biopsy was performed under ultrasound guidance. 4 core biopsy specimens were obtained using a Achieve 14g device. Biopsy specimens were not radiographed. A CLIPPATE [place] 14G marker clip was placed. LESION 2-RIGHT AXILLARY ADENOPATHY: Sterile technique was deployed. Approximately 10 cc used for local anesthesia. A small skin incision was made and a biopsy was performed under ultrasound guidance. 4 core biopsy specimens were obtained using a Inrad 18G device. A Bard Twirl marker clip was placed. Cranio-caudal and lateral digital mammography performed to determine biopsy marker placement. The venous clip is seen within the right breast mass, however, the axillary clip and node were not included on the image. Note is made of marked skin thickening extensively seen around the area of low. COMPLICATIONS: None. PROCEDURAL ATTESTATION: Resident: None IMAGING DIFFERENTIAL DIAGNOSIS: IDC, inflammatory cancer PATHOLOGIC DIAGNOSIS: IMPRESSION: Pending result RECOMMENDATION: REVIEW PATH CONFERENCE?: No Thank you for letting us participate in the care of this patient. ??If you are a health care provider and have any questions regarding this report, please contact the number below. ??For patients who have questions please contact the health wound care coordinator that requested your imaging first. ? Impressions 07/06/2022 3:55 PM EDT Pending result RECOMMENDATION: REVIEW PATH CONFERENCE?: No Thank you for letting us participate in the care of this patient. ??If you are a health care provider and have any questions regarding this report, please contact the number below. ??For patients who have questions please contact the health wound care coordinator that requested your imaging first. ? Narrative 07/06/2022 3:55 PM EDT ULTRASOUND GUIDED BIOPSY OF THE RIGHT BREAST CLINICAL HISTORY: Right upper outer quadrant mass and axillary adenopathy. 6 cm Mass at 10:00 Radian apex cm from the nipple, and right axillary adenopathy. PROCEDURAL DETAILS: Informed consent was obtained. LESION 1: - RIGHT BREAST MASS: Sterile technique was deployed. Approximately 10 cc used for local anesthesia. A small skin incision was made and a biopsy was performed under ultrasound guidance. 4 core biopsy specimens were obtained using a Achieve 14g device. Biopsy specimens were not radiographed. A [place]omark [place] 14G marker clip was placed. LESION 2-RIGHT AXILLARY ADENOPATHY: Sterile technique was deployed. Approximately 10 cc used for local anesthesia. A small skin incision was made and a biopsy was performed under ultrasound guidance. 4 core biopsy specimens were obtained using a Inrad 18G device. A Bard Twirl marker clip was placed. Cranio-caudal and lateral digital mammography performed to determine biopsy marker placement. The venous clip is seen within the right breast mass, however, the axillary clip and node were not included on the image. Note is made of marked skin thickening extensively seen around the area of low. COMPLICATIONS: None. PROCEDURAL ATTESTATION: Resident: None IMAGING DIFFERENTIAL DIAGNOSIS: IDC, inflammatory cancer PATHOLOGIC DIAGNOSIS: Procedure Note Akhil Fregoso MD - 07/09/2022 ULTRASOUND GUIDED BIOPSY OF THE RIGHT BREAST CLINICAL HISTORY: Right upper outer quadrant mass and axillaryadenopathy. 6 cm Mass at 10:00 Radian apex cm from the nipple, and right axillary adenopathy. PROCEDURAL DETAILS: Informed consent was obtained. LESION 1: - RIGHT BREAST MASS: Sterile technique was deployed.Approximately 10 cc used for local anesthesia. A small skin incision was made and a biopsywas performed under ultrasound guidance. 4 core biopsy specimens were obtained using a Achieve 14g device. Biopsy specimens were not radiographed. A Senomark [place] 14G marker clipwas placed. LESION 2-RIGHT AXILLARY ADENOPATHY: Sterile technique was deployed. Approximately 10 cc used for localanesthesia. A small skin incision was made and a biopsy was performed underultrasound guidance. 4 core biopsy specimens were obtained using a Inrad 18G device. A Bard Twirl marker clip was placed. Cranio-caudal and lateral digital mammography performed to determinebiopsy marker placement. The venous clip is seen within the right breast mass,however, the axillary clip and node were not included on the image. Note is made of marked skin thickening extensively seen around the area oflow. COMPLICATIONS: None. PROCEDURAL ATTESTATION: Resident: None IMAGING DIFFERENTIAL DIAGNOSIS: IDC, inflammatory cancer PATHOLOGIC DIAGNOSIS: IMPRESSION Pending result RECOMMENDATION: REVIEW PATH CONFERENCE?: No Thank you for letting us participate in the care of this patient. If youare a health care provider and have any questions regarding this report,please contact the number below. For patients who have questions please contactthe health wound care coordinator that requested your imaging first. Evelyn Ngo MD IMG MAMMO ORDERABLES documented in this encounter Visit Diagnoses Diagnosis Abnormal finding on breast imaging Other (abnormal) findings on radiological examination of breast documented in this encounter
--- OUTSIDE RECORDS SUMMARY | 2024-06-01 20:46 | XMS_ITS | Encounter Summary ---
Author Organization [facility] [place] [address] Care Team Providers Care Grape Grower Name Role Phone Unavailable Primary Care Provider Unavailabl e Encounter Details Date Type Department Care Team (Latest Contact Info) Description 07/06/2022 Travel Social History Tobacco Use Types Packs/Day [...] AM EST Hospital Encounter [place] [phone] Consuelo Joyce APRN [facility] [place] [address] 06/14/2024 8:45 AM EST Appointment XRay at [address] [place] [phone] Kavitha Rai MD [facility] HEMATOLOGY [place] [address] 06/14/2024 9:45 AM EST Appointment Hematology [place] [phone] 06/14/2024 11:00 AM EST Appointment [place] [address] Consuelo Joyce APRN [facility] [place] [address] 06/14/2024 1:00 PM EST Office Visit Hematology and Oncology at [place] [address] Kavitha Rai MD [facility] [address] [place] [address] 06/14/2024 2:30 PM EST Appointment Hematology and Oncology at [address] 07/05/2024 10:30 AM EDT Appointment Hematology and Oncology at [place] [address] 07/05/2024 11:30 AM EDT Office Visit Hematology and Oncology at [place] [address] Consuelo Joyce [facility] [place] [address] 07/05/2024 1:00 PM EDT Appointment Hematology and Oncology at [place] [phone] 08/16/2024 9:20 AM EDT Office Visit Ophthalmology at [place] [address] Luz Jose, CARSON [facility] [place] [address] 01/14/2025 8:30 AM EDT Office Visit Psychiatry and Behavioral Health at [address] Anna Oneill, PhD [facility] [place] [address] documented as of this encounter Visit Diagnoses Not on filedocumented in this encounter
--- OUTSIDE RECORDS SUMMARY | 2024-06-01 20:46 | XMS_ITS | Encounter Summary ---
Author Organization [facility] [place] [address] Care Team Providers Care Record Changer Assembler Name Role Phone Unavailable Primary Care Provider Unavailabl e Reason for Referral * Diagnostic Test (Routine) - Closed Specialty Diagnoses / Procedures Referred By Ciaran t Referred To Contact Radiology Diagnoses Malignant neoplasm of right breast in female, estrogen receptor negative, unspecified site of breast Procedures MRI Breast wwo Contrast Susana Kamara MD [facility] [place] [address] [place] [address] Referral ID Status Reason Start Date Expiration Date V isits Requested Visits Authorized [id number] Closed Specialty Service Requested 07/08/2022 01/09/2024 1 1 Reason for Visit * Diagnostic Test (Routine) - Closed Specialty Diagnoses / Procedures Referred By Contac t Referred To Contact Radiology Diagnoses Malignant neoplasm of right breast in female, estrogen receptor negative, unspecified site of breast Procedures MRI Breast wwo Contrast Susana Kamara MD [facility] [place] [address] [place] [address] Referral ID Status Reason Start Date Expiration Date V isits Requested Visits Authorized [id number] Closed Specialty Service Requested 07/08/2022 01/09/2024 1 1 Encounter Details Date Type Department Care Team (Latest Contact Info) Description 07/28/2022 11:57 AM EDT - 07/28/2022 2:08 PM EDT Hospital Encounter Radiology at [facility] [place] [address] Susana Estrada MD [facility] [place] [address] Malignant neoplasm of right breast in female, [...] AM EST Hospital Encounter Nuclear Medicine at [place] [phone] Consuelo Joyce APRN [facility] [place] [address] 06/14/2024 8:45 AM EST Appointment XRay at [address] [place] [phone] Kavitha Rai MD [facility] DR [place]EMATOLOG[place] [address] 06/14/2024 9:45 AM EST Appointment Hematology and Oncology at [address] 06/14/2024 11:00 AM EST Appointment Nuclear Medicine at [place] [address] Consuelo Joyce APRN [facility] [place] [address] 06/14/2024 1:00 PM EST Office Visit Hematology and Oncology at [place] [phone] Kavitha Rai MD [facility] DR [place]EMAT[place] [address] 06/14/2024 2:30 PM EST Appointment Hematology [place] [address] 07/05/2024 10:30 AM EDT Appointment Hematology and Oncology at [place] [phone] 07/05/2024 11:30 AM EDT Office Visit Hematology and Oncology at [place] [phone] Consuelo Joyce APRN [facility] [place] [address] 07/05/2024 1:00 PM EDT Appointment Hematology [place] [address] 08/16/2024 9:20 AM EDT Office [place] [phone] Luz Jose, OD [facility] [place] [address] 01/14/2025 8:30 AM EDT Office Visit Psychiatry [place] [phone] Anna Oneill, PhD [facility] [place] [address] documented as of this encounter Procedures Procedure Name Priority Date/Time Associated Diagnosis Comments MRI BREAST WWO CONTRAST BILAT Routine 07/28/2022 1:25 PM EDT Malignant neoplasm of right breast [...] who have questions please contact the health child adolescent care that requested your imaging first. ? Electronically signed by: Evelyn Ngo MD, [facility] ([phone]), at 07/29/2022 8:25 AM Narrative 07/29/2022 8:25 AM EDT BILATERAL BREAST [...] contrast enhancement curve analysis was performed, using [employer] software. COMPARISON STUDIES: Compared and/or correlated with [...] contrast enhancement curve analysis was performed, using [employer] software. COMPARISON STUDIES: Compared and/or correlated with [...] patients who have questions please contactthe health child adolescent care that requested your imaging first. Electronically signed by: Evelyn Ngo MD, [facility]([phone]), at 07/29/2022 8:25 AM Susana Estrada MD [facility] MRI ORDERABLES documented in this encounter Visit [...] PRN, 1 dose, Starting on Tue07/28/22 at 1307, Until Tue07/28/22 at 1308, Per Protocol, Radiology Contrast, Routine Given 07/28/2022 1:08 PM EDT 23 mLs documented in this encounter
--- OUTSIDE RECORDS SUMMARY | 2024-06-01 20:46 | XMS_ITS | Encounter Summary ---
Author Organization [facility] [place] [address] Care Team Providers Care Ribber Name Role Phone Unavailable Primary Care Provider Unavailabl e Encounter Details Date Type Department Care Team (Late Contact Info) Description 07/23/2022 [place] [address] Madina Canada MD [facility] DR [place]ST[place] [address] Social History Tobacco Use Types Packs/Day Years Used Date Smoking Tobacco: Never Assessed Sex and Gender Information Value Date Recorded Sex Assigned at Not on file Gender Identity Not on file Sexual Orientation Not on file documented as of this encounter Progress Notes * Madina Canada MD - 07/23/2022 9:59 AM EDT I spoke with the patient about possible enrollment to Supine Breast MRI Study#[id number]. She is in agreement and would like to proceed with enrollment. The patient verbalized understanding of the research study and all questions were answered. She will bring consent to sign on the day of the MRI. documented in this encounter Plan of Treatment Upcoming Encounters Date Type Department Care Team (Late Contact Info) Description 06/14/2024 8:00 AM EST Hospital Encounter [place] [address] Sacks, Consuelo L, [facility] [place] [address] 06/14/2024 8:45 AM EST Appointment XRay at [address] [place] [address] Kavitha Rai MD [facility] DR HEMATOLOGY [place] [address] 06/14/2024 9:45 AM EST Appointment Hematology [place] [address] 06/14/2024 11:00 AM EST Appointment Nuclear Medicine at [place] [phone] Consuelo Joyce [facility] [place] [address] 06/14/2024 1:00 PM EST Office Visit Hematology [place] [address] Kavitha Rai MD [facility] DR HEMATOLOGY [place] [address] 06/14/2024 2:30 PM EST Appointment Hematology [place] [address] 07/05/2024 10:30 AM EDT Appointment Hematology [place] [address] 07/05/2024 11:30 AM EDT Office Visit Hematology [place] [address] Consuelo Joyce [facility] [place] [address] 07/05/2024 1:00 PM EDT Appointment Hematology [place] [address] 08/16/2024 9:20 AM EDT Office [place] [address] Luz Jose, OD [facility] [place] [address] 01/14/2025 8:30 AM EDT Office Visit Psychiatry [place] [phone] Anna Oneill, PhD [facility] [address] documented as of this encounter Visit Diagnoses Not on filedocumented in this encounter
--- OUTSIDE RECORDS SUMMARY | 2024-06-01 20:46 | XMS_ITS | Encounter Summary ---
Author Organization Formerly [facility] [place] [address] Care Team Providers Care Process Control Programmer Name Role Phone Unavailable Primary Care Provider Unavailabl e Encounter Details Date Type Department Care Team (Late Contact Info) Description 07/14/2022 Telephone [place] [address] Charmaine Mariee Social History Tobacco Use Types Packs/Day Years Used Date Smoking Tobacco: Never Assessed Sex and Gender Information Value Date Recorded Sex Assigned at Not on file Gender Identity Not on file Sexual Orientation Not on file documented as of this encounter Miscellaneous Notes * Telephone Encounter - Charmaine Mariee - 07/14/2022 2:14 PM EDT I contacted Soy San to see if she is interested in participating in the Prone to Supine II MRI breast imaging study. [id number] Pt. is eligible for the study, and agrees to participate. I e-mailed Soy a copy of the consent form for her review. The eligibility form is complete. I will meet Soy San in [employer] to sign the consent form when she arrives for her scheduled clinical MRI. documented in this encounter Plan of Treatment Upcoming Encounters Date Type Department Care Team (Late Contact Info) Description 06/14/2024 8:00 AM EST Hospital [place] [address] Sacks, Consuelo L, [facility] [place] [address] 06/14/2024 8:45 AM EST Appointment XRay at [address] [place] [address] Kavitha Rai MD [facility] [place] [address] 06/14/2024 9:45 AM EST Appointment Hematology [place] [address] 06/14/2024 11:00 AM EST Appointment Nuclear Medicine at [place] [phone] Consuelo Joyce [facility] [place] [address] 06/14/2024 1:00 PM EST Office Visit Hematology [place] [address] Kavitha Rai MD [facility] [place] [address] 06/14/2024 2:30 PM EST Appointment Hematology [place] [address] 07/05/2024 10:30 AM EDT Appointment Hematology [place] [address] 07/05/2024 11:30 AM EDT Office Visit Hematology [place] [address] Consuelo Joyce [facility] [place] [address] 07/05/2024 1:00 PM EDT Appointment Hematology [place] [address] 08/16/2024 9:20 AM EDT Office [place] [address] Luz Jose, OD [facility] [place] [address] 01/14/2025 8:30 AM EDT Office Visit Psychiatry and [place] [address] Anna Oneill, PhD [facility] [place] [address] documented as of this encounter Visit Diagnoses Not on filedocumented in this encounter
--- OUTSIDE RECORDS SUMMARY | 2024-06-01 20:46 | XMS_ITS | Encounter Summary ---
Author Organization [facility] Address [facility] [place] [address] Care Team Providers Care Casino Operations Supervisor Name Role Phone Unavailable Primary Care Provider Unavailabl e Reason for Visit * Diagnostic Test (Routine) - Closed Specialty Diagnoses / Procedures Referred By Ciaran lopez Referred To Contact Radiology Diagnoses Malignant neoplasm of right breast in female, estrogen receptor negative, unspecified site of breast Procedures NM PET CT Skull Base to Mid-thigh Rosaline Lea MD [facility] [address] [place] [address] [facility] [place] [address] Referral ID Status Reason Start Date Expiration Date V isits Requested Visits Authorized [id number] Closed Specialty Service Requested 07/09/2022 01/09/2024 1 1 Encounter Details Date Type Department Care Team (Latest Contact Info) Description 07/28/2022 2:09 PM EDT - 07/28/2022 11:59 PM EDT Hospital En[place] [address] Rosaline Lea MD [facility] [place] [address] Discharge Disposition: Home Social History Tobacco Use Types Packs/Day Years Used Date Smoking Tobacco: Never Assessed Overall Financial Resource Strain (CARDIA) Gene r [...] AM EST Hospital Encounter [place] [phone] Consuelo Joyce APRN [facility] [place] [address] 06/14/2024 8:45 AM EST Appointment XRay at [address] [place] [phone] Kavitha Rai MD [facility] [place] [address] 06/14/2024 9:45 AM EST Appointment Hematology [place] [address] 06/14/2024 11:00 AM EST Appointment Nuclear Medicine at [place] [address] Consuelo Joyce [facility] [place] [address] 06/14/2024 1:00 PM EST Office Visit Hematology and Oncology at [address] Kavitha Rai MD [facility] DR HEMATOLOGY [place] [address] 06/14/2024 2:30 PM EST Appointment Hematology and Oncology at [place] [phone] 07/05/2024 10:30 AM EDT Appointment Hematology and Oncology at [place] [address] 07/05/2024 11:30 AM EDT Office Visit Hematology and Oncology at [place] [address] Consuelo Jyoce, [facility] [place] [address] 07/05/2024 1:00 PM EDT Appointment Hematology and Oncology at [place] [phone] 08/16/2024 9:20 AM EDT Office Visit Ophthalmology at [place] [phone] Luz Jose OD [facility] [place] [address] 01/14/2025 8:30 AM EDT Office Visit Psychiatry and Behavioral Health at [place] [phone] Anna Oniell, PhD [facility] [place] [address] documented as of this encounter Procedures Procedure Name Priority Date/Time Associated Diagnosis Comments NM PET CT SKULL BASE TO MID-THIGH (LCSR) Routine 07/28/2022 4:24 PM EDT Malignant neoplasm of right breast in female, estrogen receptor negative, unspecified site of breast documented in this encounter Results * NM [...] questions please contact the health resident care manager that requested your imaging first. ? Narrative 07/29/2022 10:32 AM EDT EXAMINATION: NM PET CT STANDARD SKULL BASE TO MID-THIGH CLINICAL HISTORY: Breast cancer, staging; breast cancer,Lymphovascular invasion present TECHNIQUE: Following IV injection of 29-euwyyq-7-deoxyglucose (FDG) a standard uptake of approximately 60 [...] cancer,Lymphovascularinvasion present TECHNIQUE: Following IV injection of 80-cntepr-2-deoxyglucose (FDG) astandard uptake of approximately 60 minutes, [...] have questions please contactthe health resident care manager that requested your imaging first. Rosaline Lea MD IMG PET ORDERABLES documented in this encounter Visit Diagnoses Not on filedocumented in this encounter
--- OUTSIDE RECORDS SUMMARY | 2024-06-01 20:46 | XMS_ITS | Encounter Summary ---
Author Organization [facility] [address] Care Team Providers Care Supervisor [place] Name Role Phone Unavailable Primary Care Provider Unavailabl e Encounter Details Date Type Department Care Team (Latest Contact Info) Description 07/28/2022 2:00 PM EDT Laboratory Appointment Lab [address] [place] [phone] Malignant neoplasm of right breast in female, [...] AM EST Hospital Encounter [place] [address] Consuelo Joyce APRN [facility] [place] [address] 06/14/2024 8:45 AM EST Appointment XRay at [address] [place] [address] Kavitha Rai MD [facility] [address] [place] [address] 06/14/2024 9:45 AM EST Appointment Hematology [place] [address] 06/14/2024 11:00 AM EST Appointment [place] [address] Consuelo Joyce APRN [facility] [place] [address] 06/14/2024 1:00 PM EST Office Visit Hematology [place] [phone] Kavitha Rai MD [facility] [place] [address] 06/14/2024 2:30 PM EST Appointment Hematology [place] [address] 07/05/2024 10:30 AM EDT Appointment Hematology [place] [address] 07/05/2024 11:30 AM EDT Office Visit Hematology [place] [address] Consuelo Joyce APRN [facility] [place] [address] 07/05/2024 1:00 PM EDT Appointment Hematology and Oncology at [place] [phone] 08/16/2024 9:20 AM EDT Office Visit Ophthalmology at [place] [phone] Luz Jose, OD [facility] [place] [address] 01/14/2025 8:30 AM EDT Office Visit Psychiatry and Behavioral Health at [place] [phone] Anna Oneill, PhD [facility] [place] [address] documented as of this encounter Procedures Procedure Name Priority Date/Time Associated Diagnosis Comments HEMOGRAM Routine 07/28/2022 11:51 AM EDT Malignant neoplasm of right breast in female, estrogen receptor negative, unspecified site of breast DIFFERENTIAL, AUTOMATED Routine 07/28/2022 11:51 AM EDT Malignant neoplasm of right breast in female, estrogen receptor negative, unspecified site of breast HC CBC,PLT & AUTO DIFF Routine 11:51 AM EDT Malignant neoplasm of right breast in female, estrogen receptor negative, unspecified site of breast COMPREHENSIVE METABOLIC PANEL Routine 07/28/2022 11:51 AM EDT Malignant neoplasm of right breast in female, estrogen receptor negative, unspecified site of breast documented in this encounter Results * Differential, Automated (07/28/2022 11:51 AM EDT) Neutrophil % 61.7 % [facility] Neutrophil Absolute 5.08 1.70 - 6.10 x10(3)/[facility] LAB[facility] Lymph % 27.9 % [facility] Lymphocytes Abs 2.3 0.9 - 3.2 x10(3)/[facility] LAB[facility] Monocyte % 6.0 % [facility] Monocyte Abs 0.5 0.3 - 0.9 x10(3)/[facility] Eos % 3.8 % [facility] Eosinophils Abs 0.3 0.0 - 0.4 x10(3)/[facility] Basophil % 0.2 % [facility] Baso Absolute 0.0 0.0 - 0.1 x10(3)/[facility] LABOR[facility] Immature Gran % 0.40 % [facility] Comment: Immature granulocytes(IG's)percentage and absolute count will include metamyelocytes, myelocytes, and promyelocytes. Blood smears from CBCs yielding IG's will be scanned manually for concordance. If this scan disagrees with the automated IG or if promyelocytes are noted, a manual differential will be performed. Immature Gran Absolute 0.03 0.00 - 0.04 x10(3)/[facility] Blood 07/28/2022 11:5 1 AM EDT 07/28/2022 12:13 PM EDT Narrative Resulting Agency Comment Spec In Lab Susana Estrada MD HEMATOLOGY ORDERABL ES [facility] [place] [address] * (ABNORMAL) Hemogram (07/28/2022 11:51 AM EDT) White Blood Cell 8.2 4.0 - 9.5 x10(3)/mc L [facility] Red Blood Cell 4.93 4.00 - 5.21 x10(6)/ L [facility] Hemoglobin 13.8 11.7 - 15.5 g/dL [facility] Hematocrit 40.6 35.7 - 45.8 % [facility] Mean Cell Volume 82.4(L) 82.6 - 94.4 fL [facility] Mean Cell Hemoglobin 28.0 27.1 - 32.0 pg [facility] Mean Cell Hemoglobin Concentration 34.0 31.7 - 35.0 g/dL [facility] Platelet 304 145 - 357 x10(3)/mc L [facility] RDW Standard Deviation 37.2 37.0 - 46.0 fL [facility] RDW coefficient of variation 12.3 11.5 - 14.1 % [facility] Mean Platelet Volume 10.0 7.6 - 12.9 fL [facility] NRBC% auto 0.0 % [facility] NRBC Absolute 0.000 0.000 - 0.000 x10(3)/ L [facility] Blood 07/28/2022 11:5 1 AM EDT 07/28/2022 12:13 PM EDT Narrative Resulting Agency Comment Spec In Lab Susana Estrada MD HEMATOLOGY ORDERABL ES Performing Organization Address City/State/[facility] Co de Phone Number [facility] [place] [address] * (ABNORMAL) Comprehensive metabolic panel (non-fasting) (07/28/2022 11:51 AM EDT) Glucose 100 65 - 199 mg/dL [facility] Comment:Diabetes: >=200 mg/d L plus symptoms Blood Urea Nitrogen 18 8 - 18 mg/dL [facility] Creatinine 0.87 0.70 - 1.20 mg/dL [facility] Sodium 138 135 - 145 mmol/L [facility] Potassium 4.0 3.5 - 5.0 mmol/L [facility] Comment: Please note: ??Patients with WBC >100,000 may have falsely elevated Potassium levels. ??For accurate Potassium quantification in these patients send serum separator tube (gold top) for subsequent determinations. ??Contact the Clinical Chemistry Laboratory if there are any questions. Chloride 104 98 - 107 mmol/L [facility] Carbon Dioxide 24 22 - 31 mmol/L [facility] Anion Gap 10 5 - 15 mmol/L [facility] Calcium 9.0 8.5 - 10.5 mg/dL [facility] Protein, Total 6.9 6.1 - 8.0 g/dL [facility] Albumin 4.0 3.2 - 5.2 g/dL [facility] Aspartate Aminotransferase 19 0 - 30 unit/L [facility] Alanine Aminotransferase 13 0 - 30 unit/L [facility] Alkaline Phosphatase 115(H) 35 - 105 unit/L [facility] Bilirubin, Total 0.3 0.2 - 1.3 mg/dL [facility] Est Glomerular Filtration Rate 85 >=60 mL/min/1. 73 m?? [facility] Comment: This patient's estimated GFR [...] Lab Susana Estrada MD CHEMISTRY ORDERABLE S [facility] [place] [address] documented in this encounter Visit Diagnoses Diagnosis Malignant neoplasm of right breast in female, estrogen receptor negative, unspecified site of breast documented in this encounter
--- OUTSIDE RECORDS SUMMARY | 2024-06-01 20:46 | XMS_ITS | Encounter Summary ---
Author Organization [facility] Address [facility] [place] [address] Care Team Providers Care Heat Plant Specialist Name Role Phone Ryan Betancourt MD Primary Care Provider [phone] Encounter Details Date Type Department Care Team (Late st Contact Info) Description 07/29/2022 Notes Only Care Management [facility] [place] [phone] Lilian Gipson, STUDIO OPERATIONS MANAGER Social History Tobacco Use Types Packs/Day Years [...] Progress Notes * Lilian Gipson MSW - 07/29/2022 2:21 PM EDT Comprehensive Breast Program (CBP) First Consult: Medical Oncology I'm able to introduce myself in person to Soy while she is here today for medical oncology consultation with Dr. Rai. She is unaccompanied in the exam room and presents with stable mood and affect appropriate to situation. Soy reports that as she was walking to this appointment she saw results of yesterday's PET scan in her [facility] account and read that there are lesions in her liver and skeleton, which she thinks explains her chronic spine and sternum pain. She reports that she continues to experience heightened appetite and nausea -- she has been eating a lot of sugary and fast foods because she's noticed they tend to stay in her system. She battles nausea and vomiting at other times. Soy reports that she has young grandchildren and has a lot to live for. She did not come to today's appointment with specific questions, but she is interested to learn information in her conversation with Dr. Rai, and if possible would like to record their consults so she can review later. I let her know we have the [employer] that can help with recording and transcribing herconsults, and Soy is interested in this option. Summary and Plan: Soy understands I will be available to her throughout course of tx and that I will check in with her at future follow up. I will assess her interest in cold mitts and socks forupcoming chemotherapy regimen. Completed today: Brief assessment Supportive Counseling Other: [employer] documented in this encounter Plan of Treatment Upcoming Encounters Date Type Department Care Team (Late st Contact Info) Description 06/14/2024 8:00 AM EST Hospital Encounter [place] [address] Consuelo Joyce APRN [facility] [place] [address] 06/14/2024 8:45 AM EST Appointment XRay at [address] [place] [address] Kavitha Rai MD [facility] DR HEMATOLOGY [place] [address] 06/14/2024 9:45 AM EST Appointment Hematology [place] [address] 06/14/2024 11:00 AM EST Appointment [place] [address] [facility]uelo [facility] [place] [address] 06/14/2024 1:00 PM EST Office Visit Hematology [place] [address] Kavitha Rai MD [facility] DR HEMATOLOGY [place] [address] 06/14/2024 2:30 PM EST Appointment Hematology [place] [address] 07/05/2024 10:30 AM EDT Appointment Hematology [place] [address] 07/05/2024 11:30 AM EDT Office Visit Hematology [place] [address] Consuelo Joyce APRN [facility] [place] [place] [address] 07/05/2024 1:00 PM EDT Appointment Hematology and Oncology at [place] [address] 08/16/2024 9:20 AM EDT Office [place] [address] Luz Jose, [facility] [place] [address] 01/14/2025 8:30 AM EDT Office Visit Psychiatry [place] [address] Anna Oneill, PhD [facility] [place] [address] documented as of this encounter Visit Diagnoses Not on filedocumented in this encounter Care Teams Heat Plant Specialist Relationship Specialty Start Date End Date Ryan Betancourt MD [address] [place] [phone] PCP - General Family Medicine 07/29/22 documented as of this encounter
--- OUTSIDE RECORDS SUMMARY | 2024-06-01 20:46 | XMS_ITS | Encounter Summary ---
Author Organization [facility] [place] [address] Care Team Providers Care Granular Operator Name Role Phone Unavailable Primary Care Provider Unavailabl e Encounter Details Date Type Department Care Team (Latest Contact Info) Description 07/06/2022 1:00 PM EDT - 07/06/2022 1:16 PM EDT Hospital En[place] [address] Evelyn Ngo MD [facility] [place] [address] Abnormal finding on breast imaging Discharge Disposition: Home Social History Tobacco Use Types Packs/Day Years Used Date Smoking Tobacco: Never Assessed Sex and Gender Information Value Date Recorded Sex Assigned at Not on file Gender Identity Not on file Sexual Orientation Not on file documented as of this encounter Progress Notes * Clarke Patino MD - 07/05/2022 9:15 PM EDT Procedure date: scheduled for 07/06 Procedure type: Right breast image guided biopsy and right axillary image guided biopsy Special Instructions: none Allergies: None Medications: Multivitamin Anticoagulation status: none Imaging reviewed and procedural plan approved by Dr. Clarke Patino MD documented in this encounter Plan of Treatment Upcoming Encounters Date Type Department Care Team (Late st Contact Info) Description 06/14/2024 8:00 AM EST Hospital Encounter [place] [address] Consuelo Joyce APRN [facility] [place] [address] 06/14/2024 8:45 AM EST Appointment XRay at [address] [place] [phone] Kavitha Rai MD [facility] [address] [place] [address] 06/14/2024 9:45 AM EST Appointment Hematology and Oncology at [place] [phone] 06/14/2024 11:00 AM EST Appointment Nuclear Medicine at [address] Consuelo Joyce [facility] [place] [address] 06/14/2024 1:00 PM EST Office Visit Hematology and Oncology at [place] [phone] Kavitha Rai MD [facility] [address] [place] [address] 06/14/2024 2:30 PM EST Appointment Hematology and Oncology at [place] [phone] 07/05/2024 10:30 AM EDT Appointment Hematology [place] [address] 07/05/2024 11:30 AM EDT Office Visit Hematology and Oncology at [place] [phone] Consuelo Joyce APRN [facility] [place] [address] 07/05/2024 1:00 PM EDT Appointment Hematology [place] [address] 08/16/2024 9:20 AM EDT Office [place] [phone] Luz Jose, OD [facility] [place] [address] 01/14/2025 8:30 AM EDT Office Visit Psychiatry and [place] [phone] Anna Oneill, PhD [facility] [place] [address] documented as of this encounter Procedures Procedure Name Priority Date/Time Associated Diagnosis Comments MAMMO US BIOPSY LYMPH NODE RIGHT Routine 07/06/2022 2:40 PM EDT Abnormal finding on breast imaging SPECIMEN TO PATHOLOGY Routine 07/06/2022 2:31 PM EDT documented in this encounter Results * Mammo US Biopsy Lymph Node Right (07/06/2022 2:40 PM EDT) Anatomical Region Laterality Modality Breast [...] device. Biopsy specimens were not radiographed. A Kaybus 14G marker clip was placed. LESION 2-RIGHT [...] care that requested your imaging first. ? --------ORIGINAL [...] device. Biopsy specimens were not radiographed. A [employer] Paulette 14G marker clip was placed. LESION 2-RIGHT AXILLARY ADENOPATHY: Sterile technique was deployed. Approximately 10 cc used for local anesthesia. A small skin incision was made and a biopsy was performed under ultrasound guidance. 4 core biopsy specimens were obtained using a Inrad 18G device. A [employer] Golden Lines Twirl marker clip was placed. Cranio-caudal and [...] care that requested your imaging first. ? Impressions [...] device. Biopsy specimens were not radiographed. A [employer] [place] 14G marker clip was placed. LESION 2-RIGHT [...] device. Biopsy specimens were not radiographed. A Sav[employer] [place] 14G marker clipwas placed. LESION 2-RIGHT AXILLARY ADENOPATHY: Sterile technique was deployed. Approximately 10 cc used for localanesthesia. A small skin incision was made and a biopsy was performed underultrasound guidance. 4 core biopsy specimens were obtained using a Inrad 18G device. A Internet Gold - Golden Lines Twirl marker clip was placed. Cranio-caudal and [...] critical care that requested your imaging first. Evelyn Ngo MD IMG MAMMO ORDERABLES * Specimen to Pathology (07/06/2022 2:31 PM EDT) AP Specimen 07/06/2022 2:31 PM EDT 07/06/2022 2:31 PM EDT Narrative [facility] - 07/06/2022 2:31 PM EDT Specimen requisition ordered. ??Separate Pathology report to follow Akhil Fregoso MD PATHOLOGY/CYTOLOGY O RDERABLES [facility] [place] [address] documented in this encounter Visit Diagnoses Diagnosis Abnormal finding on breast imaging Other (abnormal) findings on radiological examination of breast documented in this encounter Administered Medications Inactive Administered Medications - up to 3 most recent administrations Medication Order MAR Action Action Date Dose Rate Site lidocaine (Xylocaine) 1% (10 mg/mL) injection 0-200 mg 0-200 mg (0-20 mL), Subcutaneous, ONCE, 1 dose, On Tue07/06/22 at 1530, Radiology Protocol Medication, Routine Given 07/06/2022 3:30 PM EDT 10 mg documented in this encounter
--- OUTSIDE RECORDS SUMMARY | 2024-06-01 20:46 | XMS_ITS | Encounter Summary ---
Author Organization [facility] [place] [address] Care Team Providers Care Shot Grinder Operator Name Role Phone Unavailable Primary Care Provider Unavailabl e Encounter Details Date Type Department Care Team (Latest Contact Info) Description 07/06/2022 1:17 PM EDT - 07/06/2022 1:48 PM EDT Hospital [place] [address] Gomez Saavedra III, MD Abnormal finding on breast imaging Discharge Disposition: [...] AM EST Hospital Encounter [place] [phone] Consuelo Joyce APRN [facility] [place] [address] 06/14/2024 8:45 AM EST Appointment XRay at [address] [place] [phone] Kavitha Rai MD [facility] DR [place] [address] 06/14/2024 9:45 AM EST Appointment Hematology [place] [address] 06/14/2024 11:00 AM EST Appointment Nuclear Medicine at [address] Consuelo Joyce NURSE SANE [facility] [place] [address] 06/14/2024 1:00 PM EST Office Visit Hematology and Oncology at [place] [address] Kavitha Rai MD [facility] [address] [place] [address] 06/14/2024 2:30 PM EST Appointment Hematology and Oncology at [place] [phone] 07/05/2024 10:30 AM EDT Appointment Hematology and Oncology at [place] [address] 07/05/2024 11:30 AM EDT Office Visit Hematology and Oncology at [address] Consuelo Joyce [facility] [place] [address] 07/05/2024 1:00 PM EDT Appointment Hematology and Oncology at [place] [phone] 08/16/2024 9:20 AM EDT Office Visit Ophthalmology at [place] [phone] Luz Jose OD [facility] [place] [address] 01/14/2025 8:30 AM EDT Office Visit Psychiatry and Behavioral Health at [place] [phone] Anna Oneill, PhD [facility] [place] [address] documented as of this encounter Procedures Procedure Name Priority Date/Time Associated Diagnosis Comments MAMMO US BIOPSY RIGHT Routine 07/06/2022 2:58 PM EDT Abnormal finding on breast imaging SPECIMEN TO PATHOLOGY Routine 07/06/2022 2:45 PM EDT SURGICAL PATHOLOGY REPORT Routine 07/06/2022 2:20 PM EDT documented in this encounter Results * Mammo Us Biopsy Right (07/06/2022 2:58 PM EDT) Anatomical Region Laterality Modality Breast Right Mammography Addenda Addendum by Ahkil Fregoso MD on 07/09/2022 1:36 PM EDT [...] device. Biopsy specimens were not radiographed. A Meebler Paulette 14G marker clip was placed. LESION [...] have questions please contact the health rn medicare that requested your imaging first. ? --------ORIGINAL [...] device. Biopsy specimens were not radiographed. A [place] 14G marker clip was placed. LESION 2-RIGHT [...] have questions please contact the health rn medicare that requested your imaging first. ? Electronically signed by: BRITTANY Patrick [facility] ([phone]), at 07/06/2022 3:55 PM Impressions 07/06/2022 3:55 PM EDT Pending result RECOMMENDATION: REVIEW PATH CONFERENCE?: No Thank you for letting us participate in the care of this patient. ??If you are a health care provider and have any questions regarding this report, please contact the number below. ??For patients who have questions please contact the health rn medicare that requested your imaging first. ? Narrative [...] not radiographed. A [place] Paulette 14G marker clipwas placed. LESION 2-RIGHT AXILLARY [...] patients who have questions please contactthe health rn medicare that requested your imaging first. Gomez Saavedra III, MD IMG MAMMO BRYCEA BLES * Specimen to Pathology (07/06/2022 2:45 PM EDT) AP Specimen 07/06/2022 2:45 PM EDT 07/06/2022 2:45 PM EDT Narrative [facility] - 07/06/2022 2:45 PM EDT Specimen requisition ordered. ??Separate Pathology report to follow Akhil Fregoso MD PATHOLOGY/CYTOLOGY O RDERABLES [facility] [place] [address] * Surgical Pathology Report (07/06/2022 2:20 PM EDT) Final Diagnosis [id number] ? Location: 3L The signing pathologist has (i) examined the relevant preparation(s) for the specimen(s) and (ii) rendered or confirmed the diagnosis(es). . ?Molecular Genetics RESULTS TEST: HER2 (ERBB2) FISH, Breast METHOD: Fluorescence in situ hybridization (FISH) with chromosome 17 centromere (17p11.1-q11.1) probe and a locus specific probe for the HER2 gene locus (17q11.2- q12). SAMPLE ANALYZED: A2-7 RESULT: ?POSITIVE FOR HER2/DAVID AMPLIFICATION ? TOTAL # SIGNALS/TOTAL # NUCLEI COUNTED FOR HER2 PROBE = 1887 ? TOTAL # SIGNALS/TOTAL # NUCLEI COUNTED FOR CEP-17 PROBE = 118 ? HER2 TO CEP-17 RATIO = 16.0 ? (NORMAL RANGE <2.0) ? TOTAL # NUCLEI COUNTED = 40 ? AVERAGE # HER2 signals/cell = 47.2 Interpretation: ??Paraffin-embedde d tissue sections were submitted for HER2 (ERBB2) gene amplification analysis by FISH. ??Direct analysis was performed using the SlideJar Kit. ??Slide adequacy and signal enumeration were evaluated and satisfactory for both control and patient slides. ??A signal ratio derived from the HER2 probe and the CEP-17 centromere probe of greater than or equal to 2.0 is considered positive for HER2 gene amplification. The 2013 ASCO/CAP guideline recommendation for HER2 testing in breast cancer states that samples with a HER2 to CEP-17 ratio of less than 2.0 are non-amplified. Specimens with a HER2 to CEP-17 range of greater than or equal to 2.0 are considered amplified. This test is approved by the U.S. FDA for clinical diagnostic use. Reference: Janes FOSTER et al. Recommendations for human epidermal growth factor receptor 2 testing in breast cancer: [place] Society of Clinical Oncology/College of [employer] Pathologists clinical practice guideline update. J Clin Oncol. 2013 Feb 16. Janes FOSTER, et al. Human Epidermal Growth Factor Receptor 2 Testing in Breast Cancer: [place] Society of Clinical Oncology/College of [employer] Clinical Practice Guideline Focused Update. Arch Pathol Lab Med. 2017September 14/J Clin Oncol. 2017September 14. Electronically signed by: ?Jacqui Blount MD Verified: ??07/09/2022 16:11 ??Pathologist Performed at: ??-[facility] Dept. of Pathology, [place] [address] Anthropologist Physical: Malvin Toscano MD, FCAP, ??CLIA Certificate: [id number] ? Addendum ADDENDUM DISCUSSION Immunohistochemist ry Studies . ADDENDUM DISCUSSION Specimen: Right breast, core needle biopsy (A2) ER immunoreactivity: Negative OH immunoreactivity: Negative HER2 FISH: separate report to follow ? *Diagnostic buchanan for hormone receptors (ASCO/CAP GUIDELINES, [...] expression profiles more similar to ER-negative cancers. Immunohistochemica l assays were performed on paraffin-embedded tissue sections fixed in 10% neutral buffered formalin for 6-72 hours using the polymer system technique with appropriate controls. The assays were performed according to the front end developer ? 's instructions using Anti-ER (SP1) and Anti-OH (16) antibodies. These tests were developed and their performance characteristics determined by [facility]. They may not have [...] Electronically signed by: ?Lilly Kraus DO Verified: ??07/08/2022 8:28 ?? Pathologist Performed at: ??-[facility] Dept. of Pathology, [place] [address] Anthropologist Physical: Malvin Toscano MD, AP, ??CLIA Certificate: [id number] ?Surgical Pathology DIAGNOSIS A - ??Needle biopsies: ??Right breast Diagnosis: ?- Invasive ductal carcinoma ?High grade, modified SBR score = 8 ?- Lymphovascular invasion present Microcalcification s: ??N/A B - Right axilla, biopsy: ??- High grade invasive ductal carcinoma (see Discussion) Electronically signed by: ?Lilly Kraus DO Verified: ??07/07/2022 9:50 ?? Pathologist Performed at: ??-[facility] Dept. of Pathology, [place] [address] Anthropologist Physical: Malvin Toscano MD, AP, ??CLIA Certificate: [id number] DISCUSSION A - ??Studies for ER, OH, and HER2 have been ordered; results will be issued in an addendum. B - Definite lymph node tissue is not seen. This may represent a lymph node that is completely replaced by tumor in these cores. Radiologic correlation is recommended. SPECIMEN(S) SUBMITTED A - RIGHT BREAST U/S BIOPSY, biopsy (4) . SPECIMEN(S) SUBMITTED B - RIGHT AXILLA U/S BIOPSY, biopsy (5) CLINICAL INFORMATION A. Mass. 1. IDC 2. Inflammatory breast cancer. B. Node. 1. Metastatic. SPECIMEN PROCESSING A - Labeled/Fixative: Right breast, formalin. Quantity/Size: Four, ranging from 1.5 x 0.2 cm to 2.2 x 0.2 cm Tissue Description: [place]-yellow fibrofatty needle core biopsies. Sections/Processin g: Entirely submitted in 2 cassettes labeled A1-A2. Ischemic time: 7 minutes Total fixation time in formalin: 6 hours 18 minutes The ASCO/CAP guideline related to formalin fixation time has been met (6-72 hours). The ASCO/CAP guideline related to cold ischemic time has been met (<1 hour). B - Labeled/Fixative: Right axilla, formalin. Quantity/Size: Four, ranging from 0.7 x 0.1 cm to 1.0 x 0.1 cm Tissue Description: [place]-sommer fibrofatty needle core biopsies. Sections/Processin g: Entirely submitted in 2 cassettes labeled B1-B2. Ischemic time: 9 minutes Total fixation time in formalin: 6 hours 31 minutes The ASCO/CAP guideline related to formalin fixation time has been met (6-72 hours). The ASCO/CAP guideline related to cold ischemic time has been met (<1 hour). ??jnr 07/09/2022 4:11 PM EDT [facility] BREAST STRUCTURE / Unknown 07/06/2022 2:20 PM EDT 07/06/2022 2:20 PM EDT BREAST STRUCTURE / Unknown 07/06/2022 2:20 PM EDT 07/06/2022 2:20 PM EDT Akhil Fregoso MD PATHOLOGY/CYTOLOGY O RDERABLES [facility] [place] [phone] [facility] [place] [address] documented in this encounter Visit Diagnoses Diagnosis Abnormal finding on breast imaging Other (abnormal) findings on radiological examination of breast documented in this encounter Administered Medications Inactive Administered Medications - up to 3 most recent administrations Medication Order MAR Action Action Date Dose Rate Site lidocaine (Xylocaine) 1% (10 mg/mL) injection 0-200 mg 0-200 mg (0-20 mL), Subcutaneous, ONCE, 1 dose, On Tu07/06/22 at 1530, Radiology Protocol Medication, Routine Given 07/06/2022 3:30 PM EDT 10 mg documented in this encounter
--- OUTSIDE RECORDS SUMMARY | 2024-06-01 20:46 | XMS_ITS | Encounter Summary ---
Author Organization [facility] Address [facility] [place] [address] Care Team Providers Care Bed And Breakfast Innkeeper Name Role Phone Ryan Betancourt MD Primary Care Provider [phone] Reason for Visit * Consultation (Routine) - Closed Specialty Diagnoses / Procedures Referred By Ciaran t Referred To Contact Surgical Oncology / Hematology and Oncology Diagnoses Breast cancer R IDC, NODE + ER/ID- Her2 + (dc) TIME/DATEOK PER KMR Procedures [facility] Gianna Patino DO [address] [place] [address] [place] [address] Susana Estrada MD [facility] [place] [address] Referral ID Status Reason Start Date Expiration Date Visits Re quested Visits Authorized [id number] Closed 08/02/2022 08/02/2023 1 1 Encounter Details Date Type Department Care Team (Late st Contact Info) Description 08/02/2022 9:00 AM EDT Office [place] [address] Susana Estrada MD [facility] [place] [address] Malignant neoplasm of breast, stage 4, unspecified laterality Social History Tobacco Use Types Packs/Day Years Used Date Smoking Tobacco: Former Cigarettes - 1996 Smokeless Tobacco: Former Overall Financial Resource Strain (CARDIA) Gene r [...] Sign Reading Time Taken Comments Blood Pressure 145/95 08/02/2022 8:58 AM EDT Pulse 90 08/02/2022 8:58 AM EDT Temperature 36.3 ??C (97.4 ??F) 08/02/2022 8:58 AM ED T Respiratory Rate 20 08/02/2022 8:58 AM EDT Oxygen Saturation 98% 08/02/2022 8:58 AM EDT Inhaled Oxygen Concentration - - Weight - - Height - - Body Mass Index - - documented in this encounter Progress Notes * Susana Estrada MD - 08/02/2022 9:00 AM EDT Cc: metastatic breast cancer. HPI: Soo is a 41 yo female who presents in surgical consultation at the request of . She presents to discuss stage IV breast cancer diagnosed in June,. Breast Cancer History as follows: October 31, 2021 noted some right breast discomfort but did not notice a mass. The next day noted a lump in the right breast in the shower. Subsequently called [facility] woman wellness, seen that day. Examined and had a MMG and US. ( November 17) that showed a 3 cm mass in her right breast . ?? 11/23/2021: right core biopsy: benign, told stromal fibrosis. ?? Noted increase in size of mass over the next several months. Sometime soon after noticing the pain,Soo also noticed redness of the skin. At the end of May, insisted on seeing breast team because of increase in size and discomfort. ?? Imaging second read MMG and US:BI-RADS Category 5 06/23/2022 compared to 11/2021.MMG: right central breast: 5.3 cm ( inc from 4 cm prior) second smallermass anterior to it that measures 2.6 cm Right breast US:5.6 cm right axilla measuring 3.5 cm and second smaller lymph node measuring 2.2 cm increasing thickening of the skin of the breast ?? 07/06/2022: breast and right axillary LN biopsy Right breast Pathology: PD IDC + LVI ER negative ID negative Her 2 alexa amplified HER2 TO CEP-17 RATIO = 16.0 ? Right axilla, biopsy: ?? pathology: High grade invasive ductal carcinoma Definite lymph node tissue is not seen. This mayrepresent a lymph node that is completely replaced by tumor in these cores ?? 07/28/2022: MRI Bilateral breast Right breast: right [...] from the mid body of the sternum. ?? EOD: 1. Labs 07/28/2022: CBC WNL; CMP WNL with exception of alkphos 115 07/28/2022: PET CT:Multiple FDG avid masses and diffuse FDG avid dermal thickening in the right breast, consistent with primary breast malignancy. 2. ??Boogie metastases in the right supraclavicular, right axillary, bilateral hilar, bilateral mediastinal, and bilateral internal mammary regions. 3. ??Multiple hepatic metastases. 4. ??Multiple osseous metastases ?? Soo currently has significant pain in her back (which is limiting sleep) and sternum. She takes nsaids prn and does not wish to take stronger medications. She denies sob although hard to take deep breath. Weight stable. No fevers, chills. No abdominal pain. No history of easy bleeding or bruising. PMH: None PSH: tubal ligation @ 15 years ago ?? MEDS: none ALL: none ?? SH/FH Non smoker Very little ETOH 1 biological child, 22. 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 She appears well- developed and well-nourished. No distress. HENT: Head: Normocephalic. Eyes: Conjunctivae are normal. Pupils are equal, round, and reactive to light. Neck: Normal range of motion. Cardiovascular: Normal rate, regular rhythm and normal heart sounds. Pulmonary/Chest: Effort normal and breath sounds normal. Breasts: Right breast:markedly edematous involving entire breast with peau d'orange and palpable mass superiorly Right axilla [address], mobile, non tender. Left breast: normal Abdominal: Soft. There is no tenderness. Musculoskeletal: Normal range of motion Pt tenderness lower T spine. Extremities: no clubbing, cyanosis or edema Neurological: She is alert and oriented to person, place, and time. Skin: Skin is warm and dry. Psychiatric: She has a normal mood and affect. Her behavior is normal ?? Imaging as in hpi. I have reviewed mammogram and PET scan. A/P: Soo is a 41 y.o. 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 Soo has met with Dr. Rai and understands that goal of therapy is detention control rather than cure. Plan liver biopsy to confirm stage IV disease. Soo is set to begin chemotherapy. We discussed the role of surgery in stage IV disease. Soo understands that because this is not curable, I do not recommend surgery in any case unless she has an excellent systemic response but ongoing symptoms in the right breast which require surgical palliation. We will assess surgical need pending response to chemotherapy but will not schedule any planned follow up at this time. Soo expressed an understanding of the rationale to omit surgery understanding it could cause more harm than benefit. I will see her back on prn basis. She will contact me with any questions or concerns. documented in this encounter Plan of Treatment Upcoming Encounters Date Type Department Care Team (Late st Contact Info) Description 06/14/2024 8:00 AM EST Hospital Encounter [place] [address] Consuelo Joyce [facility] [address] 06/14/2024 8:45 AM EST Appointment XRay at [address] [place] [address] Kavitha Rai MD [facility] DR [place] [address] 06/14/2024 9:45 AM EST Appointment Hematology [place] [address] 06/14/2024 11:00 AM EST Appointment [place] [phone] Consuelo Joyce [facility] [address] 06/14/2024 1:00 PM EST Office Visit [place]ematology [place] [address] Kavitha Rai MD [facility] DR [place] [address] 06/14/2024 2:30 PM EST Appointment Hematology and Oncology at [place] [phone] 07/05/2024 10:30 AM EDT Appointment Hematology and Oncology at [place] [address] 07/05/2024 11:30 AM EDT Office Visit Hematology and Oncology at [place] [address] Consuelo Joyce APRN [facility] [place] [address] 07/05/2024 1:00 PM EDT Appointment Hematology and Oncology at [place] [phone] 08/16/2024 9:20 AM EDT Office Visit Ophthalmology at [place] [address] Luz Jose, OD [facility] [place] [address] 01/14/2025 8:30 AM EDT Office Visit Psychiatry and Behavioral Health at [place] [phone] Anna Oneill, PhD [facility] [place] [address] documented as of this encounter Visit Diagnoses Diagnosis Malignant neoplasm of breast, stage 4, unspecified laterality documented in this encounter Care Teams Bed And Breakfast Innkeeper Relationship Specialty Start Date End Date Ryan Betancourt MD [address] [place] [phone] PCP - General Family Medicine 07/29/22 documented as of this encounter
--- OUTSIDE RECORDS SUMMARY | 2024-06-01 20:46 | XMS_ITS | Encounter Summary ---
Author Organization [facility] [place] [address] Care Team Providers Care Structural Iron Erector Name Role Phone Unavailable Primary Care Provider Unavailabl e Reason for Referral * Diagnostic Test (Routine) - Closed Specialty Diagnoses / Procedures Referred By Contac t Referred To Contact Radiology Diagnoses Malignant neoplasm of right breast in female, estrogen receptor negative, unspecified site of breast Procedures NM PET CT Skull Base to Mid-thigh Rosaline Lea MD [facility] DR HEMATOLOGY [place] [address] [place] [address] Referral ID Status Reason Start Date Expiration Date V isits Requested Visits Authorized [id number] Closed Specialty Service Requested 07/09/2022 01/09/2024 1 1 Reason for Visit * Diagnostic Test (Routine) - Closed Specialty Diagnoses / Procedures Referred By Contac t Referred To Contact Radiology Diagnoses Malignant neoplasm of right breast in female, estrogen receptor negative, unspecified site of breast Procedures NM PET CT Skull Base to Mid-thigh Rosaline Lea MD [facility] DR HEMATOLOGY [place] [address] [place] [address] Referral ID Status Reason Start Date Expiration Date V isits Requested Visits Authorized [id number] Closed Specialty Service Requested 07/09/2022 01/09/2024 1 1 Encounter Details Date Type Department Care Team (Latest Contact Info) Description 07/28/2022 2:09 PM EDT - 07/28/2022 11:59 PM EDT Hospital En[place] [address] Rosaline Lea MD [facility] DR HEMATOLOGY [place] [address] Malignant neoplasm of right breast in female, [...] AM EST Hospital Encounter Nuclear Medicine at [place] [phone] Consuelo Joyce [facility] [place] [address] 06/14/2024 8:45 AM EST Appointment XRay at [address] [place] [address] Kavitha Rai MD [facility] DR HEMATOLOGY [place] [address] 06/14/2024 9:45 AM EST Appointment Hematology [place] [address] 06/14/2024 11:00 AM EST Appointment [place] [address] Consuelo Joyce [facility] [place] [address] 06/14/2024 1:00 PM EST Office Visit Hematology [place] [address] Kavitha Rai MD [facility] DR HEMATOLOGY [place] [address] 06/14/2024 2:30 PM EST Appointment Hematology [place] [address] 07/05/2024 10:30 AM EDT Appointment Hematology [place] [address] 07/05/2024 11:30 AM EDT Office Visit Hematology [place] [address] Consuelo Joyce APRN [facility] [place] [address] 07/05/2024 1:00 PM EDT Appointment Hematology [place] [phone] 08/16/2024 9:20 AM EDT Office [place] [phone] Luz Jose, OD [facility] [place] [address] 01/14/2025 8:30 AM EDT Office Visit Psychiatry [place] [phone] Anna Oneill, PhD [facility] [place] [address] documented as of this encounter Procedures Procedure Name Priority Date/Time Associated Diagnosis Comments NM PET CT SKULL BASE TO MID-THIGH ([facility]) Routine 07/28/2022 4:24 PM EDT Malignant neoplasm of right breast in female, estrogen receptor negative, unspecified site of breast POCT GLUCOSE Routine 07/28/2022 3:02 PM EDT documented in this encounter Results * NM [...] have questions please contact the health career coach that requested your imaging first. ? Electronically signed by: David Jack MD, [facility] ([phone]), at 07/29/2022 10:32 AM Narrative 07/29/2022 10:32 AM EDT EXAMINATION: NM PET CT STANDARD SKULL BASE TO MID-THIGH CLINICAL HISTORY: Breast cancer, staging; breast cancer,Lymphovascular invasion present TECHNIQUE: Following IV injection of 46-vpnesi-5-deoxyglucose (FDG) a standard uptake of approximately 60 [...] cancer,Lymphovascularinvasion present TECHNIQUE: Following IV injection of 64-hveqgz-0-deoxyglucose (FDG) astandard uptake of approximately 60 minutes, [...] who have questions please contactthe health career coach that requested your imaging first. Rosaline Lea MD IMG PET ORDERABLES * POCT Glucose (07/28/2022 3:02 PM EDT) Glucose, POC 92 65 - 199 mg/dL [facility] Comment: Supplemental ranges: <140 mg/dL before meals <180 mg/dL all other times of the day Blood 07/28/2022 3:02 PM EDT 07/28/2022 3:02 PM EDT Rosaline Lea MD POINT OF CARE TEST ORDERABLES [facility] [place] [address] documented in this encounter Visit Diagnoses Diagnosis Malignant neoplasm of right breast in female, estrogen receptor negative, unspecified site of breast documented in this encounter Administered Medications Inactive Administered Medications - up to 3 most recent administrations Medication Order MAR Action Action Date Dose Rate Site fludeoxyglucose (F-18) FDG injection 0-20 mCi 0-20 mCi, Intravenous, ONCE PRN, 1 dose, Starting on Tue07/28/22 at 1534, Until Tue07/28/22 at 1510, Per Protocol, Radiology Contrast, Routine Given 07/28/2022 3:10 PM EDT 16.3 mCi documented in this encounter
--- OUTSIDE RECORDS SUMMARY | 2024-06-01 20:47 | XMS_ITS | Encounter Summary ---
Author Organization [facility] Address [address] [place] [address] Care Team Providers Care Mud Temperer Name Role Phone Unavailable Primary Care Provider Unavailabl e Encounter Details Date Type Department Care Team (Late st Contact Info) Description 09/19/2000 21:35 EDT Hospital Encounter [facility] - Other [address] [place] [address] Day Vargas MD [address] [address] Unknown, Provider, Social History Tobacco Use Types Packs/Day Years Used Date Smoking Tobacco: Never Assessed Comments Unknown Sex and Gender Information Value Date Recorded Sex Assigned at Not on file Legal Sex Female 17:25 EST Gender Identity Not on file Sexual Orientation Not on file documented as of this encounter Plan of Treatment Not on file documented as of this encounter Procedures Procedure Name Priority Date/Time Associated Diagnosis Comments GLUCOSE-1HR GESTATIONAL SCREEN Routine 09/19/2000 15:25 EDT COMPLETE BLOOD COUNT Routine 09/19/2000 15:25 EDT documented in this encounter Results * GLUCOSE-1HR GESTATIONAL SCREEN (09/19/2000 15:25 EDT) Glucose-1hr Gest Scn 123 <135 mg/dl [facility] Comment:Fasting Glucose Dose 50 g [facility] 09/19/2000 15:2 5 EDT 09/19/2000 20:57 EDT us Day Vargas MD PACKAGES & DNA PROBE ORDERABLES Final Result Performing Organization Address City/[facility] Co de Phone Number [facility] [address] [place] [address] * (ABNORMAL) HEMAGRAM (09/19/2000 15:25 EDT) WBC 9.17 4.0 - 12.4 K/cmm [facility] RBC 3.99 3.86 - 5.04 M/cmm [facility] Hemoglobin 11.6 11.6 - 15.2 gm/dl [facility] HCT 34.8(L) 34.9 - 44.4 % [facility] MCV 87 81 - 98 fl [facility] MCH 29.0 26.7 - 33.3 pg [facility] MCHC 33.3 32.1 - 35.9 gm/dl [facility] PLT 207 141 - 320 K/cmm [facility] RDW-CV 12.5 11.7 - 14.6 % [facility] 09/19/2000 15:2 5 EDT 09/19/2000 20:57 EDT us aDy Vargas MD HEMATOLOGY & PF4 ORDERABLES Thersee l Result Performing Organization Address [facility] Co de Phone Number [facility] [address] [place] [address] documented in this encounter Visit Diagnoses Not on filedocumented in this encounter
--- OUTSIDE RECORDS SUMMARY | 2024-06-01 20:47 | XMS_ITS | Encounter Summary ---
Author Organization [facility] Address [address] [place] [address] Care Team Providers Care Front Office Spec Name Role Phone Unavailable Primary Care Provider Unavailabl e Encounter Details Date Type Department Care Team (Latest Contact Info) Description 06/06/2000 15:32 EST Hospital Encounter [facility] [address] [place] [address] Day [place]argas [place] [address] [address] Discharge Disposition: Auto Discharge Social History Tobacco Use Types Packs/Day Years Used Date Smoking Tobacco: Never Assessed Comments Unknown Sex and Gender Information Value Date Recorded Sex Assigned at Not on file Legal Sex Female 17:25 EST Gender Identity Not on file Sexual Orientation Not on file documented as of this encounter Discharge Disposition Disposition Code Departure Means Destination Auto Discharge documented in this encounter Plan of Treatment Not on file documented as of this encounter Procedures Procedure Name Priority Date/Time Associated Diagnosis Comments RAD US OBSTETRICAL COMPLETE Routine 06/06/2000 16:08 EST documented in this encounter Results * RAD US OBSTETRICAL COMPLETE (06/06/2000 16:08 EST) Anatomical Region Laterality Modality Other 06/06/2000 16:0 8 EST Impressions 02/26/2009 0:18 EST IMPRESSION: 1) Single intrauterine gestation with best estimated gestational age by ultrasound at fourteen plus one weeks. /vjc Narrative 02/26/2009 0:18 EST OB U/S FOR SIZE AND DATES (LMP- 01/14/00) ULTRASOUND EVALUATION 06/06/00 An ultrasound evaluation was performed for an indication of uncertain LMP and size less than dates. A single intrauterine gestation was seen in a variable lie with a posteriorly implanted placenta. LMP: 01/14/00 = 20 + 4 BPD: 2.6cm = 14 + 4 HC: 9.6cm = 14 + 3 AC: 8.0cm = 14 + 3 FL: 1.1cm = 13 + 3 U/S COMP. AGE: 14 + 1 The fetus is visualized using real-time ultrasound. There is fluid seen in the stomach and bladder. Several views of the spine were seen and appear intact. The amniotic fluid volume appears normal and the fetus is active. The left ovary is visible and measures 2.1 x 2.7 x 1.8cm. Procedure Note Annette Ervin MD - 02/26/2009 OB U/S FOR SIZE AND DATES (LMP- 01/14/00) ULTRASOUND EVALUATION 06/06/00 An ultrasound evaluation was performed for an indication of uncertain LMP and size less than dates. A single intrauterine gestation was seen in a variable lie with a posteriorly implanted placenta. LMP: 01/14/00 = 20 + 4 BPD: 2.6cm = 14 + 4 HC: 9.6cm = 14 + 3 AC: 8.0cm = 14 + 3 FL: 1.1cm = 13 + 3 U/S COMP. AGE: 14 + 1 The fetus is visualized using real-time ultrasound. There is fluid seen in the stomach and bladder. Several views of the spine were seen and appear intact. The amniotic fluid volume appears normal and the fetus is active. The left ovary is visible and measures 2.1 x 2.7 x 1.8cm. IMPRESSION IMPRESSION: 1) Single intrauterine gestation with best estimated gestational age by ultrasound at fourteen plus one weeks. /minesh us Day Vargas MD IMG US ORDERABLES Final Result documented in this encounter Visit Diagnoses Not on filedocumented in this encounter
--- OUTSIDE RECORDS SUMMARY | 2024-06-01 20:47 | XMS_ITS | Encounter Summary ---
Author Organization [facility] Address [address] [place] [address] Care Team Providers Care Resource Engineer Name Role Phone Unavailable Primary Care Provider Unavailabl e Encounter Details Date Type Department Care Team (Late st Contact Info) Description 01/19/2001 12:38 EDT Hospital Encounter [facility] - Other [address] [place], [place] [address] Debbie Landeros MD [address] [place] [phone] Unknown, Provider, Social History Tobacco Use Types [...] Procedure Name Priority Date/Time Associated Diagnosis Comments HDL Routine 01/19/2001 15:30 EDT CHOLESTEROL Routine 01/19/2001 15:30 EDT CYTOPATHOLOGY Routine 01/19/2001 0:00 EDT documented in this encounter Results * HDL (01/19/2001 15:30 EDT) HDL 47 mg/dl [facility] Comment: Highly Desirable:>60 Desirable:35-60 High Risk:<35 01/19/2001 15:3 0 EDT 01/19/2001 20:43 EDT Debbie Landeros MD CHEMISTRY & BLOOD GAS ORDERAB LES Final Result Performing Organization Address [facility] de Phone Number [facility] [address] [place] [address] * CHOLESTEROL (01/19/2001 15:30 EDT) Pathologist [facility] Cholesterol 227 mg/dl [facility] Comment: Desirable:<200 Borderline:200-239 High Risk:>ne=972 01/19/2001 15:3 0 EDT 01/19/2001 20:43 EDT Debbie Landeros MD CHEMISTRY & BLOOD GAS ORDERAB LES Final Result Performing Organization Address [facility] de Phone Number [facility] [address] [place] [address] * CYTOPATHOLOGY (01/19/2001 0:00 EDT) Pathologist [facility] Pathology Report: CYTOPATHOLOGY REPORT Reports generated via electronic interface contain original data; however they are lacking the format of the original report. Caution should be taken when reading/interpreti ng unformatted reports. Name: ? SHAILA MARTINS ? Accession #: ? [id number] : ? 1980 (Age: 20) ??F ?Collect Date: ? 01/19/2001 Location: ? [facility] ? Receive Date: ? 01/23/2001 Provider: ?DEBBIE LANDEROS MD Copy to: ? Specimen/Source: ?ThinPrep Pap Test, Source Not Provided Last Menstrual Period: ? 01/14/00 Menstrual/Pregnanc y Status: ? Post ? SPECIMEN ADEQUACY ? Satisfactory for evaluation. GENERAL CATEGORIZATION ? Within Normal Limits ? Document reviewed and electronically signed by: ? Hansel López, CT(ASCP) ? Report Date: ??01/24/2001 10:11 End of Report [facility] 01/19/2001 01/23/2001 us Debbie Landeros MD PATHOLOGY ORDERABLES Final Re sult [facility] [address] [place] [address] documented in this encounter Visit Diagnoses Not on filedocumented in this encounter
--- OUTSIDE RECORDS SUMMARY | 2024-06-01 20:47 | XMS_ITS | Encounter Summary ---
Author Organization [facility] Address [address] [place] [address] Care Team Providers Care Manager Mutual Fund Name Role Phone Ryan Betancourt MD Primary Care Provider +1- [phone] Encounter Details Date Type Department Care Team (Late st Contact Info) Description 11/23/2021 Lab Requisition [facility] Pathology & Laboratory Medicine - [facility] [address] [place] [address] Jacoby Lim MD [address] [place] [address], [address] [place], [place] [address] Encounter for other general examination Social History Tobacco Use Types Packs/Day Years [...] Procedure Name Priority Date/Time Associated Diagnosis Comments SURGICAL PATHOLOGY Today 11/23/2021 8: 25 EDT Encounter for other general examination documented in this encounter Results * SURGICAL PATHOLOGY (11/23/2021 8:25 EDT) Note to Patient The following pathology results have been interpreted by your pathologist and may be available to you before your health provider has had the opportunity to review them. Please allow time for your provider to receive these results and explore management options, if applicable. 11/25[facility]2021 8[facility] Final Diagnosis A. BREAST, RIGHT, MASS, CORE BIOPSY: - Benign breast tissue with stromal fibrosis. - See Comment. 11/25/2021 8:48 T [facility] Diagnosis Comment Diagnostic features of malignancy are not identified. The findings are non-specific in the setting of a mass lesion. Clinical-radiolog ic correlation is needed to ensure players club representative sampling of the detected abnormality. 11/25/2021 8:48 [facility] Attestation There was significant resident/fellow involvement in the diagnostic evaluation of this case. By the signature below, the attending physician certifies that they have personally conducted a gross and/or microscopic examination of the described specimens and rendered or confirmed the above diagnosis. 11/25/2021 8:48 [facility] at 0848 Clinical History Right breast mass 11/25/2021 8:48 [facility] Gross Description A. Received in formalin labelled with proper patient identification (initials P, C) and right breast core Bx x5 are 4 yellow and white fibrofatty tissue cores (0.8 cm to 1.5 cm in length, and each 0.2 cm in diameter). Entirely submitted in A1-A2. Time removed from patient: 08:25 hours 11/23/2021 Time placed in formalin: 08:40 hours 11/23/2021 Time out of formalin: 00:30 hours 11/24/2021 LEOPOLDO FRY(ASCP) 11/23/2021 17:26 11/25/2021 8:48 T [facility] Resident/Cyrus w: Cirilo Wallace MD 11/25/2021 8:48 T [facility] Performing Lab [facility] 11/25/2021 8:48 T [facility] Scanned Images 11/25/2021 8:48 [facility] Tissue ENTIRE RIGHT BREAST / Unknown 11/23/2021 8:25 EDT 11/23/2021 16:54 EDT us Jacoby Lim MD PATHOLOGY ORDERABLES Final Resu lt [facility] [address] [place] [address] documented in this encounter Visit Diagnoses Diagnosis Encounter for other general examination documented in this encounter Care Teams Manager Mutual Fund Relationship Specialty Start Date End Date Ryan Betancourt MD [address] [facility] [place] [phone] PCP - General 12/11/10 documented as of this encounter
--- OUTSIDE RECORDS SUMMARY | 2024-06-01 20:47 | XMS_ITS | Referral Summary ---
Author Organization [facility] Address [address] [place] [address] Care Team Providers Care Certified Control Systems Technician Name Role Phone Ryan Betancourt MD Primary Care Provider +1- [phone] Social History Tobacco Use Types Packs/Day Years Used Date Smoking Tobacco: Never Assessed Comments Unknown Sex and Gender Information Value Date Recorded Sex Assigned at Not on file Legal Sex Female 17:25 EST Gender Identity Not on file Sexual Orientation Not on file Plan of Treatment Not on file Insurance Care Teams Certified Control Systems Technician Relationship Specialty Start Date End Date Ryan Betancourt MD [address] [place] [phone] PCP - General 12/11/10
--- OUTSIDE RECORDS SUMMARY | 2024-06-01 20:47 | XMS_ITS | Encounter Summary ---
Author Organization [facility] [place] [address] Care Team Providers Care Infant Caregiver Name Role Phone Unavailable Primary Care Provider Unavailabl e Encounter Details Date Type Department Care Team (Late Contact Info) Description 11/17/2021 Ancillary Procedure Radiology Library at [facility] [place] [address] Ana Cristina Rogers [facility] [address] Social History Tobacco Use Types Packs/Day Years [...] Hospital Encounter [place] [phone] Consuelo [address] [facility] [place] [address] 06/14/2024 8:45 AM EST Appointment XRay at [address] [place] [phone] Kavitha Rai MD [facility] [place] [address] 06/14/2024 9:45 AM EST Appointment Hematology [place] [address] 06/14/2024 11:00 AM EST Appointment Nuclear Medicine at [address] Consuelo Joyce [facility] [place] [address] 06/14/2024 1:00 PM EST Office Visit Hematology and Oncology at [address] Kavitha Rai MD [facility] [place] [address] 06/14/2024 2:30 PM EST Appointment Hematology and Oncology at [address] 07/05/2024 10:30 AM EDT Appointment Hematology and Oncology at [address] 07/05/2024 11:30 AM EDT Office Visit Hematology and Oncology at [address] Consuelo Joyce [facility] [place] [address] 07/05/2024 1:00 PM EDT Appointment Hematology and Oncology at [place] [phone] 08/16/2024 9:20 AM EDT Office Visit Ophthalmology at [place] [address] Luz Jose OD [facility] [place] [place] [address] 01/14/2025 8:30 AM EDT Office Visit Psychiatry [place] [address] Anna Oneill, PhD [facility] [place] [address] documented as of this encounter Procedures Procedure Name Priority Date/Time Associated Diagnosis Comments FILM LIBRARY STORAGE ONLY MAMMO Routine 11/17/2021 12:00 AM EDT documented in this encounter Results * Film Library- Storage Only Mammo (11/17/2021 12:00 AM EDT) Narrative GARY - 06/16/2022 3:34 PM EST This exam is auto-finalizing. It's purpose is for storage only. Ana Cristina [place] APRN IMG FILM LIBRARY OR DERABLES [place], [place] documented in this encounter Visit Diagnoses Not on filedocumented in this encounter
--- OUTSIDE RECORDS SUMMARY | 2024-06-01 20:47 | XMS_ITS | Encounter Summary ---
Author Organization [facility] Address [address] [place] [address] Care Team Providers Care Brick Picker Name Role Phone Unavailable Primary Care Provider Unavailabl e Encounter Details Date Type Department Care Team (Late st Contact Info) Description 06/13/2000 15:21 EST Hospital Encounter [facility] - Other [address] [place] [address] Day Vargas MD [address] [address] Unknown, Provider, Social History Tobacco Use Types Packs/Day Years Used Date Smoking Tobacco: Never Assessed Comments Unknown Sex and Gender Information Value Date Recorded Sex Assigned at Not on file Legal Sex Female 17:25 EST Gender Identity Not on file Sexual Orientation Not on file documented as of this encounter Plan of Treatment Not on file documented as of this encounter Visit Diagnoses Not on filedocumented in this encounter
--- OUTSIDE RECORDS SUMMARY | 2024-06-01 20:47 | XMS_ITS | Encounter Summary ---
Author Organization [facility] Address [address] [place] [address] Care Team Providers Care Mixing Machine Tender Cork Rod Name Role Phone Unavailable Primary Care Provider Unavailabl e Encounter Details Date Type Department Care Team (Latest Contact Info) Description 12/05/2000 12:00 EDT Hospital Encounter [facility] - Maple conversion [address] [place] [address] Day Vargas MD [address] [address] Discharge Disposition: Home or Self Care Social History Tobacco Use Types Packs/Day Years Used Date Smoking Tobacco: Never Assessed Comments Unknown Sex and Gender Information Value Date Recorded Sex Assigned at Not on file Legal Sex Female 17:25 EST Gender Identity Not on file Sexual Orientation Not on file documented as of this encounter Discharge Disposition Disposition Code Departure Means Destination Home or Self Care documented in this encounter Plan of Treatment Not on file documented as of this encounter Visit Diagnoses Not on filedocumented in this encounter
--- OUTSIDE RECORDS SUMMARY | 2024-06-01 20:47 | XMS_ITS | Clinical Summary ---
Author Organization [facility] Address [address] [place] [address] Care Team Providers Care Tc Operator Name Role Phone Ryan Betancourt MD Primary Care Provider +1- [phone] Social History Tobacco Use Types Packs/Day Years Used Date Smoking Tobacco: Never Assessed Comments Unknown Sex and Gender Information Value Date Recorded Sex Assigned at Not on file Legal Sex Female 17:25 EST Gender Identity Not on file Sexual Orientation Not on file Plan of Treatment Health Maintenance Due Date Last Done Comments Hepatitis C Screen 1980 Hepatitis B Vaccine (1 of 3 - 19+ 3-dose series) 11/02 COVID-19 Vaccine ( season) 2023 Insurance [employer] Care Teams Tc Operator Relationship Specialty Start Date End Date Ryan Betancourt MD [address] [place] [phone] PCP - General 12/11/10
--- OUTSIDE RECORDS SUMMARY | 2024-06-01 20:47 | XMS_ITS | Encounter Summary ---
Author Organization [facility] [place] [address] Care Team Providers Care Resist Coater Developer Name Role Phone Unavailable Primary Care Provider Unavailabl e Encounter Details Date Type Department Care Team (Late Contact Info) Description 11/17/2021 12:05 AM EDT Ancillary Procedure Radiology Library at [facility] [place] [address] Ana Cristina Rogers [facility] [place] [address] Social History Tobacco Use Types Packs/Day Years [...] AM EST Hospital Encounter [place] [phone] Consuelo Joyce [facility] [place] [address] 06/14/2024 8:45 AM EST Appointment XRay at [address] [place] [phone] Kavitha Rai MD [facility] HEMATOLOGY [place] [address] 06/14/2024 9:45 AM EST Appointment Hematology [place] [address] 06/14/2024 11:00 AM EST Appointment Nuclear Medicine at [place] [phone] Consuelo Joyce [facility] [place] [address] 06/14/2024 1:00 PM EST Office Visit Hematology and Oncology at [place] [phone] Kavitha Rai MD [facility] DR [place] [address] 06/14/2024 2:30 PM EST Appointment Hematology and Oncology at [place] [phone] 07/05/2024 10:30 AM EDT Appointment Hematology [place] [address] 07/05/2024 11:30 AM EDT Office Visit [place]ology [place] [address] Consuelo Joyce, [facility] [place] [address] 07/05/2024 1:00 PM EDT Appointment Hematology [place] [address] 08/16/2024 9:20 AM EDT Office [place] [phone] Luz Jose OD [facility] [place] [address] 01/14/2025 8:30 AM EDT Office Visit Psychiatry [place] [address] Anna Oneill, PhD [facility] [place] [address] documented as of this encounter Procedures Procedure Name Priority Date/Time Associated Diagnosis Comments FILM LIBRARY-STORAGE ONLY US BREAST Routine 11/17/2021 12:05 AM EDT documented in this encounter Results * Film Library Storage Only US Breast (11/17/2021 12:05 AM EDT) Narrative [facility] - 06/16/2022 3:34 PM EST This exam is auto-finalizing. It's purpose is for storage only. Ana Cristina [place] APRN IMG FILM LIBRARY OR DERABLES [place], [place] documented in this encounter Visit Diagnoses Not on filedocumented in this encounter
--- OUTSIDE RECORDS SUMMARY | 2024-06-01 20:47 | XMS_ITS | Encounter Summary ---
Author Organization [facility] Address [address] [place] [address] Care Team Providers Care Collar Runner Name Role Phone Unavailable Primary Care Provider Unavailabl e Encounter Details Date Type Department Care Team (Late st Contact Info) Description 05/04/2000 7:57 EST Hospital Encounter [facility] - Other [address] [place] [address] Sadiq Vargas MD [address] [address] Unknown, Provider, Social History Tobacco Use Types [...] Procedure Name Priority Date/Time Associated Diagnosis Comments HIV AB Routine 05/04/2000 20:00 EST HIV CONSENT REQUEST Routine 05/04/2000 2 0:00 EST HOLD Routine 05/04/2000 20:00 EST PROFILE Routine 05/04/2000 20:0 0 EST CYTOPATHOLOGY Routine 05/04/2000 0:00 EST documented in this encounter Results * HIV CONSENT REQUEST (05/04/2000 20:00 EST) HIV Consent Request Consent form required prior to testing. Specimen will be discarded in 7 days. [facility] 05/04/2000 20:0 0 EST 05/05/2000 8:13 EST Sadiq Vargas MD HISTORICAL LAB FOR SQ LOAD Final Result Performing Organization Address [facility] de Phone Number [facility] [address] [place] [address] * HOLD (05/04/2000 20:00 EST) Hold Hold for further testing. Specimen will be held for 30 days. [facility] 05/04/2000 20:0 0 EST 05/04/2000 21:46 EST Sadiq Vargas MD CHEMISTRY & BLOOD GAS ORDERABLES Final Result Performing Organization Address [facility] Phone Number [facility] [address] [place] [address] * HIV AB (05/04/2000 20:00 EST) Pathologist [facility] HIV 1/2 Antibody NONREACT. NR [facility] HIV Consent Request Consent form required prior to testing. Specimen will be discarded in 7 days. Consent form received [facility] 05/04/2000 20:0 0 EST 05/04/2000 21:46 EST Sadiq Vargas MD HISTORICAL LAB FOR SQ LOAD Final Result Performing Organization Address [facility] de Phone Number [facility] [address] [place] [address] * (ABNORMAL) PROFILE (05/04/2000 20:00 EST) Pathologist [facility] ABO and Rh Type A POS [facility] Antibody Screen Neg Specimen submitted by physician's office [facility] WBC 12.06 4.0 - 12.4 K/cmm [facility] RBC 4.47 3.86 - 5.04 M/cmm [facility] Hemoglobin 13.6 11.6 - 15.2 gm/dl [facility] HCT 38.9 34.9 - 44.4 % [facility] MCV 87 81 - 98 fl [facility] MCH 30.4 26.7 - 33.3 pg [facility] MCHC 34.9 32.1 - 35.9 gm/dl [facility] PLT 247 141 - 320 K/cmm [facility] RDW-CV 12.3 11.7 - 14.6 % [facility] Hepatitis B Surface Ag Neg [facility] % Neutrophils 76.2 45.5 - 79.7 % [facility] % Lymphocytes 19.4 15.0 - 46.8 % [facility] % Monocytes 3.8 1.8 - 12.0 % [facility] % Eosinophils 0.6 0.6 - 6.9 % [facility] % Basophils 0.0(L) 0.2 - 1.4 % [facility] ABS Neutrophils 9.18(H) 2.20 - 8.85 K/cmm [facility] ABS Lymphs 2.34 1.09 - 3.30 K/cmm [facility] ABS Monocytes 0.46 0.1 - 0.8 K/cmm [facility] ABS Eosinophils 0.07 0.03 - 0.61 K/cmm [facility] ABS Basophils 0.01 0.01 - 0.11 K/cmm [facility] Type of Diff: Automated [facility] Syphilis Sero (RPR) NONREACT. NR Dils [facility] Rubella IgG Scr Antibody detected [facility] 05/04/2000 20:0 0 EST 05/04/2000 21:46 EST us Sadiq Vargas MD PACKAGES & DNA PROBE ORDERABLES Final Result [facility] [address] [place] [address] * CYTOPATHOLOGY (05/04/2000 0:00 EST) Pathology Report: CYTOPATHOLOGY REPORT Reports generated via electronic interface contain original data; however they are lacking the format of the original report. Caution should be taken when reading/interpreti ng unformatted reports. Name: ? SHAILA MARTINS ? Accession #: ? [id number] : ? 1980 (Age: 19) ??F ?Collect Date: ? 05/04/2000 Location: ? [facility] ? Receive Date: ? 05/05/2000 Provider: ?SADIQ VARGAS MD Copy to: ? Specimen/Source: ?ThinPrep Pap Test, Cervix/Endocervix Last Menstrual Period: ? 01/14/00 Menstrual/Pregnanc y Status: ? SPECIMEN ADEQUACY ? Satisfactory for evaluation. GENERAL CATEGORIZATION ? Within Normal Limits ? Document reviewed and electronically signed by: ? MANOLO Melvin(ASCP) ? Report Date: ??05/06/2000 13:44 End of Report [facility] 05/04/2000 05/05/2000 us Sadiq Vargas MD PATHOLOGY ORDERABLES Final Resul t [facility] [address] [place] [address] documented in this encounter Visit Diagnoses Not on filedocumented in this encounter
--- OUTSIDE RECORDS SUMMARY | 2024-06-01 20:47 | XMS_ITS | Encounter Summary ---
Author Organization [facility] Address [address] [place] [address] Care Team Providers Care Regulatory Intern Name Role Phone Unavailable Primary Care Provider Unavailabl e Encounter Details Date Type Department Care Team (Latest Contact Info) Description 12/02/2000 15:38 EDT Hospital Encounter [facility] - Maple conversion [address] [place] [address] Day Vargas MD [address] [address] Discharge Disposition: Home-Health Care Svc Social History Tobacco Use Types Packs/Day Years Used Date Smoking Tobacco: Never Assessed Comments Unknown Sex and Gender Information Value Date Recorded Sex Assigned at Not on file Legal Sex Female 17:25 EST Gender Identity Not on file Sexual Orientation Not on file documented as of this encounter Discharge Disposition Disposition Code Departure Means Destination Home-Health Care Svc documented in this encounter Plan of Treatment Not on file documented as of this encounter Visit Diagnoses Not on filedocumented in this encounter
--- OUTSIDE RECORDS SUMMARY | 2024-06-01 20:47 | XMS_ITS | Encounter Summary ---
Author Organization [facility] [place] [address] Care Team Providers Care Pill Coater Name Role Phone Unavailable Primary Care Provider Unavailabl e Encounter Details Date Type Department Care Team (Late Contact Info) Description 06/23/2022 4:30 PM EST Ancillary Procedure Radiology Library at [facility] [place] [address] [place] [address] [place] [address] [place] [address] Social History Tobacco Use Types Packs/Day Years [...] AM EST Hospital Encounter [place] [phone] Consuelo Joyce APRN [facility] [place] [address] 06/14/2024 8:45 AM EST Appointment XRay at [address] [place] [phone] Kavitha Rai MD [facility] DR HEMATOLOGY [place] [address] 06/14/2024 9:45 AM EST Appointment Hematology [place] [address] 06/14/2024 11:00 AM EST Appointment Nuclear Medicine at [address] Consuelo Joyce [facility] [place] [address] 06/14/2024 1:00 PM EST Office Visit Hematology and Oncology at [address] Kavitha Rai MD [facility] [place] [address] 06/14/2024 2:30 PM EST Appointment Hematology and Oncology at [address] 07/05/2024 10:30 AM EDT Appointment Hematology and Oncology at [address] 07/05/2024 11:30 AM EDT Office Visit Hematology and Oncology at [address] Consuelo Joyce [facility] [place] [place] [address] 07/05/2024 1:00 PM EDT Appointment Hematology and Oncology at [place] [phone] 08/16/2024 9:20 AM EDT Office Visit Ophthalmology at [place] [address] Luz Jose OD [facility] [place] [address] 01/14/2025 8:30 AM EDT Office Visit Psychiatry [place] [address] Anna Oneill, PhD [facility] [place] [address] documented as of this encounter Procedures Procedure Name Priority Date/Time Associated Diagnosis Comments FILM LIBRARY-STORAGE ONLY US BREAST Routine 06/23/2022 4:23 PM EST documented in this encounter Results * Film Library Storage Only US Breast (06/23/2022 4:23 PM EST) Narrative RAD - 06/23/2022 4:23 PM EST This exam is auto-finalizing. It's purpose is for storage only. Gianna BROWN FILM LIBRARY ORD ERABLES [place], [place] documented in this encounter Visit Diagnoses Not on filedocumented in this encounter
--- OUTSIDE RECORDS SUMMARY | 2024-06-01 20:47 | XMS_ITS | Encounter Summary ---
Author Organization [facility] Address [address] [place] [address] Care Team Providers Care System Auditor Name Role Phone Ryan Betancourt MD Primary Care Provider +1- [phone] Encounter Details Date Type Department Care Team (Late st Contact Info) Description 04/30/2022 Lab Requisition [facility] Pathology & Laboratory Medicine - [address] [address] Outr Resulting Lab, Provider Social History Tobacco Use Types Packs/Day Years [...] Procedure Name Priority Date/Time Associated Diagnosis Comments ZZCOVID-19 TEST [facility] PCR Today 04/29/2022 9:15 EST COVID-19 TESTING Routine 04/29/2022 9:15 EST documented in this encounter Results * COVID-19 TEST [facility] PCR (04/29/2022 9:15 EST) Swab 04/29/2022 9:15 EST 04/30/2022 19:11 EST us Provider Outr Resulting Lab MICROBIOLOGY - GENER AL ORDERABLES Final Result [facility] [address] [place] [address] * COVID-19 TESTING (04/29/2022 9:15 EST) COVID-19 rt-PCR Result Negative Negative 05/01/2022 11:11 EST [facility] Comment: This test has not been FDA cleared or approved. This test has been authorized by FDA under an EUA for use by authorized laboratories. This test has been authorized only for detection of nucleic acid from 2019-nCoV, not for any other viruses or pathogens. This test is only authorized for the duration of the declaration that circumstances exist justifying the authorization of emergency use of in vitro diagnostic tests for detection and/or diagnosis of 2019-nCoV under section 564(b)(1) of Act, 21 U.S.C ?? 360bbb-3(b) (1), unless the authorization is terminated or revoked sooner. Negative results do not preclude 2019-nCoV infection and should not be used as the sole basis for treatment or other patient management decisions. Negative results must be combined with clinical observations, patient history, and epidemiological information. Testing was performed using the laura SARS-CoV-2 assay ([employer] on the Laura 6800 System Performing Lab [facility] [address] [facility] Lab 05/01/2022 11:11 EST [facility] Swab 04/29/2022 9:15 EST 04/30/2022 19:11 EST us Provider Outr Resulting Lab MICROBIOLOGY - GENER AL ORDERABLES Final Result [facility] [address] [place] [address] documented in this encounter Visit Diagnoses Not on filedocumented in this encounter Care Teams System Auditor Relationship Specialty Start Date End Date Ryan Betancourt MD [address] [place] [phone] PCP - General 12/11/10 documented as of this encounter
--- OUTSIDE RECORDS SUMMARY | 2024-06-01 20:47 | XMS_ITS | Encounter Summary ---
Author Organization [facility] [place] [address] Care Team Providers Care Sweep Molder Name Role Phone Unavailable Primary Care Provider Unavailabl e Encounter Details Date Type Department Care Team (Late Contact Info) Description 06/23/2022 Notes Only Hematology [place] [address] Nelly Allred Social History Tobacco Use Types Packs/Day Years Used Date Smoking Tobacco: Never Assessed Sex and Gender Information Value Date Recorded Sex Assigned at Not on file Gender Identity Not on file Sexual Orientation Not on file documented as of this encounter Progress Notes * Nelly Allred - 06/23/2022 4:53 PM ESTSummary: CBP-breast imaging review [place] 1980 [id number] Referring provider: iván Patino Date of Referral: 06.23.2022 Please review outside breast imaging dated: 06.23.2022 Reason for exam and clinical history: Right breast mass w/ calcs and enlarged lymph nodes Category: 5 Questions to be answered: ?BX Sending Institution: [facility] Patient would like treatment at: Call pt at: documented in this encounter Plan of Treatment Upcoming Encounters Date Type Department Care Team (Late Contact Info) Description 06/14/2024 8:00 AM EST Hospital Encounter [place] [address] Consuelo Joyce APRN [facility] [place] [address] 06/14/2024 8:45 AM EST Appointment XRay at [address] [place] [address] Kavitha Rai MD [facility] DR HEMATOLOGY [place] [address] 06/14/2024 9:45 AM EST Appointment Hematology and Oncology at [place] [phone] 06/14/2024 11:00 AM EST Appointment Nuclear Medicine at [place] [phone] Consuelo Joyce [facility] [place] [address] 06/14/2024 1:00 PM EST Office Visit Hematology and Oncology at [place] [phone] Kavitha Rai MD [facility] DR HEMATOLOGY [place] [address] 06/14/2024 2:30 PM EST Appointment Hematology [place] [address] 07/05/2024 10:30 AM EDT Appointment Hematology [place] [address] 07/05/2024 11:30 AM EDT Office Visit Hematology [place] [address] Consuelo Joyce APRN [facility] [place] [address] 07/05/2024 1:00 PM EDT Appointment Hematology [place] [phone] 08/16/2024 9:20 AM EDT Office [place] [phone] Luz Jose, OD [facility] [place] [address] 01/14/2025 8:30 AM EDT Office Visit Psychiatry and [place] [phone] Anna Oneill, PhD [facility] [place] [address] documented as of this encounter Visit Diagnoses Not on filedocumented in this encounter
--- OUTSIDE RECORDS SUMMARY | 2024-06-01 20:47 | XMS_ITS | Encounter Summary ---
Author Organization [facility] Theodore [place] [address] Care Team Providers Care Boiler Technician Name Role Phone Unavailable Primary Care Provider Unavailabl e Encounter Details Date Type Department Care Team (Late Contact Info) Description 06/23/2022 4:25 PM EST Ancillary Procedure Radiology Library at [facility] [place] [address] [place] [address] [place] [address] [place] [address] Social History Tobacco Use Types Packs/Day Years [...] AM EST Hospital Encounter [place] [phone] Consuelo Joyce APRN [facility] [place] [address] 06/14/2024 8:45 AM EST Appointment XRay at [address] [place] [phone] Kavitha Rai MD [facility] [place] [address] 06/14/2024 9:45 AM EST Appointment Hematology [place] [address] 06/14/2024 11:00 AM EST Appointment Nuclear Medicine at [address] Consuelo Joyce [facility] [place] [address] 06/14/2024 1:00 PM EST Office Visit Hematology and Oncology at [address]1000 Kavitha Rai MD [facility] DR HEMATOLOGY [place] [address] 06/14/2024 2:30 PM EST Appointment Hematology and Oncology at [address] 07/05/2024 10:30 AM EDT Appointment Hematology and Oncology at [address] 07/05/2024 11:30 AM EDT Office Visit Hematology and Oncology at [address] Consuelo Joyce [facility] [place] [address] 07/05/2024 1:00 PM EDT Appointment Hematology and Oncology at [place] [phone] 08/16/2024 9:20 AM EDT Office Visit Ophthalmology at [place] [address] Luz Jose OD [facility] [place] [address] 01/14/2025 8:30 AM EDT Office Visit Psychiatry [place] [address] Anna Oneill, PhD [facility] [place] [address] documented as of this encounter Procedures Procedure Name Priority Date/Time Associated Diagnosis Comments FILM LIBRARY STORAGE ONLY MAMMO Routine 06/23/2022 4:23 PM EST documented in this encounter Results * Film Library- Storage Only Mammo (06/23/2022 4:23 PM EST) Narrative [facility] - 06/23/2022 4:23 PM EST This exam is auto-finalizing. It's purpose is for storage only. Gianna BROWN FILM LIBRARY ORD ERABLES [place], [place] documented in this encounter Visit Diagnoses Not on filedocumented in this encounter
--- OUTSIDE RECORDS SUMMARY | 2024-06-01 20:47 | XMS_ITS | Encounter Summary ---
Author Organization [facility] Address [address] [place] [address] Care Team Providers Care Solutions Sales Consultant Name Role Phone Unavailable Primary Care Provider Unavailabl e Encounter Details Date Type Department Care Team (Late st Contact Info) Description 10/20/2000 14:16 EDT Hospital Encounter [facility] - [address] [address] Annette Ervin MD Goering, Ann, [place] [address] [address] Social History Tobacco Use Types Packs/Day Years [...]
--- OUTSIDE RECORDS SUMMARY | 2024-06-01 20:47 | XMS_ITS | Encounter Summary ---
Author Organization [facility] Address [address] [place] [address] Care Team Providers Care Flight Control Tower Operator Name Role Phone Unavailable Primary Care Provider Unavailabl e Encounter Details Date Type Department Care Team (Latest Contact Info) Description 12/12/2000 9:14 EDT - 12/14/2000 11:59 EDT Hospital Encounter [facility] [address] [place] [address] Day Vargas MD [address] [address] Discharge Disposition: Home-Health Care Svc Social History [...] Procedure Name Priority Date/Time Associated Diagnosis Comments COMPLETE BLOOD COUNT Routine 12/13/2000 8:10 EDT BLOOD GASES, CORD ARTERIAL Routine 12/12/2000 20:14 EDT HEMAGRAM & DIFF Routine 12/12/2000 10:05 EDT documented in this encounter Results * (ABNORMAL) HEMAGRAM (12/13/2000 8:10 EDT) WBC 10.18 4.0 - 12.4 K/cmm [facility] RBC 3.39(L) 3.86 - 5.04 M/cmm [facility] Hemoglobin 9.6(L) 11.6 - 15.2 gm/dl [facility] HCT 28.5(L) 34.9 - 44.4 % [facility] MCV 84 81 - 98 fl [facility] MCH 28.3 26.7 - 33.3 pg [facility] MCHC 33.6 32.1 - 35.9 gm/dl [facility] PLT 116(L) 141 - 320 K/cmm [facility] RDW-CV 14.8(H) 11.7 - 14.6 % [facility] 12/13/2000 8:10 EDT 12/13/2000 8:31 EDT Day Vargas MD HEMATOLOGY & PF4 ORDERABLES Therese l Result Performing Organization Address City/[facility] Co de Phone Number [facility] [address] [place] [address] * (ABNORMAL) BLOOD GASES, CORD (12/12/2000 20:14 EDT) Pathologist [facility] Base Deficit 10.3 [facility] pCO2, arterial 87(H) 35 - 45 mmHg [facility] pH, arterial 7.03(L) 7.35 - 7.45 [facility] pO2, arterial 11(L) 85 - 100 mmHg [facility] TCO2 25 mEq/L [facility] 12/12/2000 20:1 4 EDT 12/12/2000 20:14 EDT Day Vargas MD GEN LAB UNIT COLLECT ORDERABLES Final Result Performing Organization Address City/[facility] Co de Phone Number [facility] [address] [place] [address] * (ABNORMAL) HEMAGRAM & DIFF (12/12/2000 10:05 EDT) Pathologist [facility] WBC 8.05 4.0 - 12.4 K/cmm [facility] RBC 4.12 3.86 - 5.04 M/cmm [facility] Hemoglobin 11.7 11.6 - 15.2 gm/dl [facility] HCT 34.7(L) 34.9 - 44.4 % [facility] MCV 84 81 - 98 fl [facility] MCH 28.4 26.7 - 33.3 pg [facility] MCHC 33.7 32.1 - 35.9 gm/dl [facility] PLT 128(L) 141 - 320 K/cmm [facility] RDW-CV 14.7(H) 11.7 - 14.6 % [facility] % Neutrophils 77.1 45.5 - 79.7 % [facility] % Lymphocytes 14.0(L) 15.0 - 46.8 % [facility] % Monocytes 6.9 1.8 - 12.0 % [facility] % Eosinophils 1.9 0.6 - 6.9 % [facility] % Basophils 0.1(L) 0.2 - 1.4 % [facility] ABS Neutrophils 6.20 2.20 - 8.85 K/cmm [facility] ABS Lymphs 1.12 1.09 - 3.30 K/cmm [facility] ABS Monocytes 0.56 0.1 - 0.8 K/cmm [facility] ABS Eosinophils 0.16 0.03 - 0.61 K/cmm [facility] ABS Basophils 0.01 0.01 - 0.11 K/cmm [facility] Type of Diff: Automated [facility] 12/12/2000 10:0 5 EDT 12/12/2000 10:05 EDT us Day Vargas MD HISTORICAL LAB FOR SQ LOAD Final Result [facility] [address] [place] [address] documented in this encounter Visit Diagnoses Not on filedocumented in this encounter
--- OUTSIDE RECORDS SUMMARY | 2024-06-01 20:47 | XMS_ITS | Encounter Summary ---
Author Organization [facility] Address [address] [place] [address] Care Team Providers Care Retail Banker Name Role Phone Ryan Betancourt MD Primary Care Provider [phone] Encounter Details Date Type Department Care Team (Late st Contact Info) Description 12/10/2010 Results Only [facility] [phone] Demario Reyes MD [address] [place] [address] Social History Tobacco Use Types Packs/Day Years [...] Procedure Name Priority Date/Time Associated Diagnosis Comments PAP TEST- RESULT ONLY Routine 12/10/2010 0:00 EDT documented in this encounter Results * PAP TEST- RESULT ONLY (12/10/2010 0:00 EDT) Pathology Report: CYTOPATHOLOGY REPORT ? Reports generated via electronic interface contain original data; ? however they are lacking the format of the original report. ? Caution should be taken when reading/interpreti ng unformatted reports. ? Name: ? SHAILA SAN ? Accession #: ? [id number] ? : ? 1980 (Age: 30) ??F ?Collect Date: ? 12/10/2010 ? Location: ? [facility] ? Receive Date: ? 12/11/2010 ? Provider: ?DEMARIO REYES MD ? Copy to: ?CHRISTIANO MCCLELLAN NP ? Specimen/Source: ?Pap Test, Cervix/Endocervix, ThinPrep Imaging System ? with manual evaluation ? Last Menstrual Period: ? Other: ? Additional clinical information: last pap 8/09 negative ? SPECIMEN ADEQUACY ? Satisfactory for Evaluation ? - transformation zone component present ? GENERAL CATEGORIZATION ? Negative for Intraepithelial Lesion or Malignancy ? INTERPRETATION ? Reactive cellular changes associated with inflammation present (includes ?? repair). ? Document reviewed and electronically signed by: ? SIMONA L CIOLINO MD ? Report Date: ??12/18/2010 16:53 ? End of Report ? [facility] 12/10/2010 12/11/2010 us Demario Reyes MD PATHOLOGY ORDERABLES Final Resu lt [facility] [address] [place] [address] documented in this encounter Visit Diagnoses Not on filedocumented in this encounter Care Teams Retail Banker Relationship Specialty Start Date End Date Ryan Betancourt MD [address] [facility] [address] [place] [address] PCP - General 12/11/10 documented as of this encounter
--- OUTSIDE RECORDS SUMMARY | 2024-06-01 20:47 | XMS_ITS | Encounter Summary ---
Author Organization [facility] Address [address] [place] [address] Care Team Providers Care Straightening Machine Operator Name Role Phone Unavailable Primary Care Provider Unavailabl e Encounter Details Date Type Department Care Team (Late st Contact Info) Description 11/01/2000 13:20 EDT Hospital Encounter [facility] - Other [address] [place] [address] Day Vargas MD [address] [address] Unknown, ProviderMD Social History Tobacco Use Types Packs/Day Years [...] Procedure Name Priority Date/Time Associated Diagnosis Comments GROUP B STREPTOCOCCUS SUSCEPTIBILITY Routine 11/01/2000 8:45 EDT documented in this encounter Results * GROUP B STREPTOCOCCUS SUSCEPTIBILITY (11/01/2000 8:45 EDT) Specimen Description Vaginal and Rectal [facility] Result Few STREPTOCOCCUS , BETA HEMOLYTIC GROUP B (STREPTOCOCCU S AGALACTIAE) [facility] Report Status Final [id number] [facility] 11/01/2000 8:45 EDT 11/01/2000 15:04 EDT us Day Vargas MD [facility] FOR SQ LOAD Final Result [facility] [address] [place] [address] documented in this encounter Visit Diagnoses Not on filedocumented in this encounter
--- OUTSIDE RECORDS SUMMARY | 2024-06-01 20:47 | XMS_ITS | Encounter Summary ---
Author Organization [facility] [place] [address] Care Team Providers Care Reconciliation Clerk Name Role Phone Unavailable Primary Care Provider Unavailabl e Reason for Visit * (Routine) - Closed Specialty Diagnoses / Procedures Referred By Ciaran lopez Referred To Contact Radiology Diagnoses Mass of right breast, unspecified quadrant Breast calcification, right Procedures Request for 2nd read Mammo Gianna Patino DO [address] [place] [address] [place] [address] Referral ID Status Reason Start Date Expiration Date Visits Re quested Visits Authorized [id number] Closed 06/24/2022 06/24/2023 1 1 Encounter Details Date Type Department Care Team (Latest Contact Info) Description 06/24/2022 8:50 AM EST Ancillary Procedure Radiology Library at [facility] [place] [address] Gianna Patino DO [address] [place] [address] [address] [place], [place] [id number] Mass of right breast, unspecified quadrant; Breast calcification, right Social History Tobacco Use Types Packs/Day Years [...] AM EST Hospital Encounter [place] [phone] Consuelo Joyce APRN [facility] [place] [address] 06/14/2024 8:45 AM EST Appointment XRay at [address] [place] [address] Kavitha Rai MD [facility] DR [place] [address] 06/14/2024 9:45 AM EST Appointment Hematology [place] [address] 06/14/2024 11:00 AM EST Appointment Nuclear Medicine at [place] [phone] Consuelo Joyce [facility] [place] [address] 06/14/2024 1:00 PM EST Office Visit Hematology [place] [address] Kavitha Rai MD [facility] DR [place] [address] 06/14/2024 2:30 PM EST Appointment Hematology [place] [address] 07/05/2024 10:30 AM EDT Appointment Hematology [place] [address] 07/05/2024 11:30 AM EDT Office Visit Hematology [place] [address] Consuelo Joyce [facility] [place] [address] 07/05/2024 1:00 PM EDT Appointment Hematology [place] [address] 08/16/2024 9:20 AM EDT Office Visit Ophthalmology at [facility] [place] [address] Luz Jose, OD [facility] [place] [address] 01/14/2025 8:30 AM EDT Office Visit Psychiatry [place] [address] Anna Oneill, PhD [facility] [place] [address] documented as of this encounter Procedures Procedure Name Priority Date/Time Associated Diagnosis Comments REQUEST FOR 2ND READ MAMMO Routine 06/24/2022 8:45 AM EST Mass of right breast, unspecified quadrant Breast calcification, right documented in this encounter Results * Request for 2nd read Mammo (06/24/2022 8:45 AM EST) Anatomical Region Laterality Modality SO Narrative 06/24/2022 10:05 AM EST INTERPRETATION OF OUTSIDE BREAST IMAGING I have been asked to consult on this patient by Dr. Patino because he/she believes a review of this study may change or alter the care of this patient. STUDIES FROM: [facility] CLINICAL HISTORY: ? BX; Sending Institution [facility]; Date of exam [id number]; I believe a reinterpretation of this exam may alter care of Patient. Yes; RIGHT BREAST MASS W/CALCS AND ENLARGED LYMPH NODES, CAT 5. ?? DATES and TYPE OF EXAM: Mammograms and ultrasound 06/23/2022 COMPARISONS: Mammograms and ultrasound 11/17/2021. BREAST DENSITY: FINDINGS: There is an irregularly marginated spiculated mass in the central right breast lying 8 cm from the nipple. It measures 2.7 x 5.3 x 3.1 cm. It is increased in size from the prior study when it measured 1.8 x 4.0 x 2.7 cm. There are multiple microcalcifications within it.There is a second smaller mass anterior to it that measures 2.6 x 1.3 x 0.5 cm. On ultrasound the dominant mass measures 2.6 x 5.6 2.0 cm. This compares to 3.1 x 4.2 x 2.0 cm on the prior study. It is irregularly marginated and hypoechoic. There is internal vascularity. There is increasing thickening of the skin of the breast, most prominent anteriorly. There is an enlarged lymph node in the right axilla measuring 3.5 x 2.8 x 1.6 cm. The cortical mantle measures 11 mm. There is a second smaller lymph node measuring 2.2 x 1.7 x 1.1 cm. It also shows a thickened cortical mantle. These are concerning for metastatic disease. INTERPRETATION: Increasing size of the mass in the central right breast with a new secondary mass anterior to it. There are abnormal axillary lymph nodes. There is marked thickening of the skin suggesting lymphatic lesion/obstruction. Findings are very concerning for primary breast malignancy with metastatic disease.. BI-RADS Category 5: Highly Suggestive of Malignancy - Appropriate Action Should Be Taken MANAGEMENT: Biopsy recommended of the dominant mass and axillary lymph node * ??Regular screening mammograms starting between age 40 and 50 reduces the risk of from breast cancer. * ??All screening tests have both risks and benefits. These risks and benefits should be assessed for each individual patient through discussion with their provider to determine their preferred breast cancer screening schedule. * ??Women should report any breast changes to a health care provider right away. * ??Some women, because of their family history, a genetic tendency, or other factors, should be screened with annual breast MRI as well as with mammograms. (The number of women who fall into this category is very ??and health care providers should discuss each patients history to decide if earlier screening and/or breast MRI are appropriate. * ??Screening should continue as long as a woman is in good health and is expected to live 10 years or longer. * ??Screening mammography may not detect 10-15% of breast cancers. Please note: The interpretation of the [facility] Breast Imaging Radiologist subspecialist may differ from the original radiologists interpretation. This is usually not due to a deficiency of the original interpreting radiologist, rather due to the greater skill level afforded by sub-specialization in the field and/or reasonable variations in interpretations. If you have a concern regarding the [facility] interpretation you may contact the [facility] Breast Gear Grinder Office at . Thank you for letting us participate in the care of this patient. ??If you are a health care provider and have any questions regarding this report, please contact the number below. ??For patients who have questions please contact the health post acute care nurse that requested your imaging first. ? Procedure Note Gomez Saavedra III, MD - 06/24/2022 INTERPRETATION OF OUTSIDE BREAST IMAGING I have been asked to consult on this patient by Dr. Patino becausehe/she believes a review of this study may change or alter the care of thispatient. STUDIES FROM: [facility] CLINICAL HISTORY: ? BX; Sending Institution [facility]; Date ofexam [id number]; I believe a reinterpretation of this exam may alter care ofPatient. Yes; RIGHT BREAST MASS W/CALCS AND ENLARGED LYMPH NODES, CAT 5. DATES and TYPE OF EXAM: Mammograms and ultrasound 06/23/2022 COMPARISONS: Mammograms and ultrasound 11/17/2021. BREAST DENSITY: FINDINGS: There is an irregularly marginated spiculated mass in the central rightbreast lying 8 cm from the nipple. It measures 2.7 x 5.3 x 3.1 cm. It isincreased in size from the prior study when it measured 1.8 x 4.0 x 2.7 cm. There are multiple microcalcifications within it.There is a second smaller massanterior to it that measures 2.6 x 1.3 x 0.5 cm. On ultrasound the dominant mass measures 2.6 x 5.6 2.0 cm. This comparesto 3.1 x 4.2 x 2.0 cm on the prior study. It is irregularly marginated andhypoechoic. There is internal vascularity. There is increasing thickening of the skin of the breast, most prominent anteriorly. There is an enlarged lymph node in the right axilla measuring 3.5 x 2.8 x1.6 cm. The cortical mantle measures 11 mm. There is a second smaller lymphnode measuring 2.2 x 1.7 x 1.1 cm. It also shows a thickened cortical mantle.These are concerning for metastatic disease. INTERPRETATION: Increasing size of the mass in the central right breastwith a new secondary mass anterior to it. There are abnormal axillary lymphnodes. There is marked thickening of the skin suggesting lymphaticlesion/obstruction. Findings are very concerning for primary breast malignancy withmetastatic disease.. BI-RADS Category 5: Highly Suggestive of Malignancy - Appropriate ActionShould Be Taken MANAGEMENT: Biopsy recommended of the dominant mass and axillary lymph node * Regular screening mammograms starting between age 40 and 50 reduces therisk of from breast cancer. * All screening tests have both risks and benefits. These risks andbenefits should be assessed for each individual patient through discussion withtheir provider to determine their preferred breast cancer screening schedule. * Women should report any breast changes to a health care provider rightaway. * Some women, because of their family history, a genetic tendency, orother factors, should be screened with annual breast MRI as well as withmammograms. (The number of women who fall into this category is very and healthcare providers should discuss each patients history to decide if earlierscreening and/or breast MRI are appropriate. * Screening should continue as long as a woman is in good health and is expected to live 10 years or longer. * Screening mammography may not detect 10-15% of breast cancers. Please note: The interpretation of the [facility] BreastImaging Radiologist subspecialist may differ from the original radiologists interpretation. This is usually not due to a deficiency of the original interpreting radiologist, rather due to the greater skill level affordedby sub-specialization in the field and/or reasonable variations ininterpretations. If you have a concern regarding the [facility] interpretation you may [facility] at . Thank you for letting us participate in the care of this patient. If youare a health care provider and have any questions regarding this report,please contact the number below. For patients who have questions please contactthe health post acute care nurse that requested your imaging first. Gianna Patino DO IMG OUTSIDE INTERPRE TATION ORDERABLES documented in this encounter Visit Diagnoses Diagnosis Mass of right breast, unspecified quadrant Breast calcification, right Other (abnormal) findings on radiological examination of breast documented in this encounter
--- OUTSIDE RECORDS SUMMARY | 2024-06-01 20:47 | XMS_ITS | Encounter Summary ---
Author Organization [facility] [place] [address] Care Team Providers Care Director Stars Name Role Phone Unavailable Primary Care Provider Unavailabl e Encounter Details Date Type Department Care Team (Late Contact Info) Description 06/16/2022 Orders [place] [phone] Ana Cristina Rogers [facility] [place] [address] Mass of right breast, unspecified quadrant Social History Tobacco Use Types Packs/Day Years [...] AM EST Hospital Encounter [place] [phone] Consuelo Joyce [facility] [place] [address] 06/14/2024 8:45 AM EST Appointment XRay at [address] [place] [phone] Kavitha Rai MD [facility] [place] [address] 06/14/2024 9:45 AM EST Appointment Hematology [place] [address] 06/14/2024 11:00 AM EST Appointment Nuclear Medicine at [address] Consuelo Joyce APRN [facility] [place] [address] 06/14/2024 1:00 PM EST Office Visit Hematology and Oncology at [place] [phone] Kavitha Rai MD [facility] [address] [place] [address] 06/14/2024 2:30 PM EST Appointment Hematology and Oncology at [place] [phone] 07/05/2024 10:30 AM EDT Appointment Hematology and Oncology at [place] [phone] 07/05/2024 11:30 AM EDT Office Visit Hematology and Oncology at [place] [phone] Consuelo Joyce [facility] [place] [address] 07/05/2024 1:00 PM EDT Appointment Hematology [place] [address] 08/16/2024 9:20 AM EDT Office Visit Ophthalmology at [place] [phone] Luz Jose OD [facility] [place] [address] 01/14/2025 8:30 AM EDT Office Visit Psychiatry [place] [address] Anna Oneill, PhD [facility] [place] [address] documented as of this encounter Visit Diagnoses Diagnosis Mass of right breast, unspecified quadrant documented in this encounter
== END 2024-06-01 20:32 | disposition home or self-care (01) ==
LOC: ER 20:33
PROVIDERS: Emergency Provider Emergency Medicine
DX: H66.92 Otitis media, unspecified, left ear (principal); H72.92 Unspecified perforation of tympanic membrane, left ear; S00.412A Abrasion of left ear, initial encounter; Z87.891 Personal history of nicotine dependence; X58.XXXA Exposure to other specified factors, initial encounter
CPT/HCPCS: 99283

== ENCOUNTER 2024-06-27 09:34 | Outpatient (CLI) | payer BC, SELFPAY ==
[2024-06-27 09:11] LABS: Abs Immature Grans 0.01 10^3/uL (0.0-0.06); Absolute Basophil Count 0.04 10^3/uL (0.0-0.2); Absolute Eosinophil Count 0.11 10^3/uL (0.0-0.7); Absolute Lymphocyte Count 2.71 10^3/uL (1.2-3.4); Absolute Monocyte Count 0.22 10^3/uL (0.1-0.8); Absolute Neutrophil Count 1.38 10^3/uL (1.2-6.7); Basophils % 0.9 %; Eosinophils % 2.5 %; HCT 38.2 % (36.0-46.0); HGB 12.2 g/dL (11.2-15.7); Immature Grans % 0.2 %; Lymphocytes % 60.6 %; MCHC 31.9 % (32.0-36.0); MCV 81 fL (80-95); MPV 9.3 fL (8.0-11.0); Monocytes % 4.9 %; Neutrophils % 30.9 %; Platelet Count 100 10^3/uL (130-400); RBC 4.69 10^6/uL (3.93-5.22); RDW 18.2 % (11.7-14.6); RDW-SD 54.5 fL; WBC 4.47 10^3/uL (4.4-10.8)
== END 2024-06-27 09:35 | disposition home or self-care (01) ==
LOC: LBO 09:34
PROVIDERS: Visit Provider Registered Nurse School
DX: C50.811 Malignant neoplasm of overlapping sites of right female breast (principal); Z17.1 Estrogen receptor negative status [ER-]; D69.6 Thrombocytopenia, unspecified; C50.911 Malignant neoplasm of unspecified site of right female breast; C79.51 Secondary malignant neoplasm of bone
CPT/HCPCS: 36415; 85025

== ENCOUNTER 2025-02-01 16:08 | Outpatient (REF) | payer BC, SELFPAY ==
[2025-02-01 16:20] LABS: Hemoglobin A1C 5.2 % (<5.7)
[2025-02-01 16:28] LABS: Iron 99 ug/dL (50-170); Total Iron Binding Capacity 370 ug/dL (250-450)
[2025-02-01 16:55] LABS: Calculated LDL 97 mg/dL (<100); Cholesterol 178 mg/dL (<200); Folate > 20.0 ng/mL (8.6-20.0); HDL Cholesterol 61 mg/dL (>or=50); TSH 1.06 uIU/mL (0.36-3.74); Triglyceride 100 mg/dL (<150); Vitamin B12 652 pg/mL (193-986); Vitamin D 25 Total 31 ng/mL (30-100)
== END 2025-02-01 16:09 | disposition home or self-care (01) ==
LOC: NCHCN 16:08
PROVIDERS: Visit Provider Family Medicine
DX: M79.2 Neuralgia and neuritis, unspecified (principal); E66.812 Obesity, class 2; E66.09 Other obesity due to excess calories; Z68.39 Body mass index [BMI] 39.0-39.9, adult; Z13.1 Encounter for screening for diabetes mellitus; Z13.220 Encounter for screening for lipoid disorders
CPT/HCPCS: 80061; 82306; 82607; 82746; 83036; 83540; 83550; 84443

== ENCOUNTER 2025-04-09 18:42 | Emergency (ER) | payer BC, SELFPAY ==
[2025-04-09] VITALS (9 sets, daily range): BP systolic 108–171; BP diastolic 69–123; PULSE 87–105; RESP 20; TEMP 36.7; O2SAT 96–99
--- NOTE | 2025-04-09 19:11 | W.ED.GENAD ---
Discharge Plan Disposition Patient Disposition: Home Condition: Stable Discharge Details Clinical Impression: Episode of heavy vaginal bleeding Primary Care Provider: Unknown,Unknown ED Provider: Stephanie Hamilton Home Meds and New Rx's Prescriptions: No Action multivitamin [Daily Multi-Vitamin] 1 EACH tablet 1 tab PO DAILY amoxicillin-pot clavulanate 875-125 mg tablet 1 tab PO BID omeprazole 20 mg capsule,delayed release(DR/EC) 20 mg PO DAILY Xgeva 120 mg/1.7 mL (70 mg/mL) solution 120 mg subcut .q 6 weeks Kadcyla 160 mg recon soln 320 mg IV Q3W Discharge Instructions Instructions: Heavy Periods ED Additional Instructions: At this time your platelets are 101 which is comparable to the last level we have on file. No evidence of need for transfusion at this time. Please eat well, increase oral fluids. Follow up with oncologist/primary care provider in 3-5 days. Return to ED sooner if any worsening dizziness lightheadedness, soaking through more than 1 pad an hour, or concerns. Stand Alone Forms: Portal Information Referrals: [facility] [Provider Group] - 1 week Referral Note: ER follow up call for an appointment Clinical Impression: Episode of heavy vaginal bleeding Primary Care Provider [Outside] - 5 days Referral Note: ER follow up HPI General Mode of arrival: ambulatory. Date/Time Provider Initiated Documentation: 04/09/25 18:44. Limitations to Documentation: no limitations. Information obtained by: patient, RN notes reviewed and old records reviewed. HPI Narrative: 44-year-old female presents to the ER with a chief complaint of heavy vaginal bleeding over the last 4 days. She is currently undergoing treatment for stage IV breast cancer and is set to have chemotherapy next week. She had a televisit with her oncologist today and she mentioned the heavy vaginal bleeding and they recommended that she come in for further evaluation. Patient does have a history of slightly low platelets. She denies any dizziness lightheadedness, denies any abdominal cramping. She reports a history of abnormal periods. Denies any other associated symptoms or concerns. She reports that she is soaking through approximately 1 pad an hour. Other past medical history include migraine and seizures and bilateral tubal ligation. Related Data Home Medications ?Medication ?Instructions ?Recorded ?Confirmed multivitamin (Daily Multi-Vitamin 1 tab PO DAILY 05/07/15 04/09/25 tablet) amoxicillin 875 mg-potassium 1 tab PO BID 06/01/24 04/09/25 clavulanate 125 mg tablet denosumab 120 mg/1.7 mL (70 mg/mL) 120 mg subcut .q 6 weeks 06/01/24 04/09/25 subcutaneous solution (Xgeva) omeprazole 20 mg capsule,delayed 20 mg PO DAILY 06/01/24 04/09/25 release ado-trastuzumab emtansine 160 mg 320 mg IV Q3W 04/09/25 04/09/25 intravenous solution (Kadcyla) Allergies Allergy/AdvReac Type Severity Reaction Status Date / Time No Known Allergies Allergy Verified 04/09/25 18:50 General Stated 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 Appears stated age. Normal body habitus. Head: Normocephalic, no trauma. Eyes: Pupils PERRL, Red reflex noted, EOM's intact. Eyelids symmetrical without lesions, discharge, or swelling. ENT: Bilateral TM's WNL, External ear normal to inspection, no mastoid TTP, swelling, or erythema, Nasal turbinates WNL, no nasal discharge. Normal dentition, Posterior pharynx WNL, no exudate. Chest: RRR, Normal S1, S2, distal pulses intact. Resp: Lungs clear to auscultation bilaterally, no wheezes, rales, or rhonchi. Abdomen: Soft, non-distended, Normoactive bowel sounds all 4 quads. Musculoskeletal: Normal gait, Moves all 4 extremities without difficulty. Skin: No suspicious rashes or lesions. Capillary refill less than 2 sec. Neurologic: Cranial nerves II-XII intact. Alert and oriented x 3. Motor: No deficits noted. Sensory: Intact bilaterally all 4 extremities. Hematologic/Lymphatic: No ecchymosis, no lymphadenopathy. Course Vital Signs Vital signs: Vital Signs Temperature 36.7 C 04/09/25 18:46 Pulse 105 H 04/09/25 18:46 Respiratory Rate 20 04/09/25 18:46 Blood Pressure 165/97 H 04/09/25 18:46 Pulse Oximetry 98 04/09/25 18:46 Temperature 36.7 C 04/09/25 18:46 Pulse 105 H 04/09/25 18:46 Respiratory Rate 20 04/09/25 18:46 Blood Pressure 165/97 H 04/09/25 18:46 Blood Pressure Position Sitting 04/09/25 18:46 Pulse Oximetry 98 04/09/25 18:46 Oxygen Delivery Method Room Air 04/09/25 18:46 Oxygen Flow Rate 0 04/09/25 18:46 Medical Decision Making IV ordered, CBC CMP and type and screen. CBC Shows Hgb 12.2 and Hct 35.6 Platelets are 101, patient was 100 in June of this year. No evidence or need for transfusion at this time. Will DC with instructions to eat well, drink lots of fluids and strict return instructions. 2020: Patients potassium 2.7 resulted after she was discharged from department, I did call to relay the level to her she verbalizes understanding I did encourage increase PO of potassium rich foods and supplementation and close follow up with PCP, she vewrbalizes understanding. This text was generated using [employer] system, please disregard any oddities of phrase or misspellings. Medical Records Medical records reviewed: Yes I reviewed the patient's medical records. Lab Data Lab results reviewed: Yes I reviewed the patient's lab results. Labs: Laboratory Tests Range/Units 04/09/25 19:20 WBC (4.4-10.8) 10^3/uL 5.10 RBC (3.93-5.22) 10^6/uL 4.29 Hgb (11.2-15.7) g/dL 12.2 Hct (36.0-46.0) % 35.6 L MCV (80-95) fL 83 MCH (27.0-33.0) pg 28.4 MCHC (32.0-36.0) % 34.3 RDW (11.7-14.6) % 15.3 H Plt Count (130-400) 10^3/uL 101 L MPV (8.0-11.0) fL 10.1 Immature Gran % % 0.2 Neutrophils % % 43.3 Lymphocytes % % 47.6 Monocytes % % 6.3 Eosinophils % % 2.2 Basophils % % 0.4 Nucleated RBC % (0.0-0.3) % 0.0 Absolute Neutrophils (1.2-6.7) 10^3/uL 2.21 Absolute Lymphocytes (1.2-3.4) 10^3/uL 2.43 Absolute Monocytes (0.1-0.8) 10^3/uL 0.32 Absolute Eosinophils (0.0-0.7) 10^3/uL 0.11 Absolute Basophils (0.0-0.2) 10^3/uL 0.02 Sodium (136-145) mmol/L 142 Potassium (3.5-5.1) mmol/L 2.7 L* Chloride (98-107) mmol/L 106 Carbon Dioxide (20.0-31.0) mmol/L 26.2 Anion Gap (3-11) mmol/L 9.8 BUN (9-23) mg/dL 11 Creatinine (0.55-1.02) mg/dL 0.72 Est GFR (CKD-EPI 2020) (mL/min/1.73m2) 87.04 Glucose (74-106) mg/dL 110 H Calcium (8.3-10.6) mg/dL 8.4 Total Bilirubin (0.2-1.2) mg/dL 1.4 H AST (<34) U/L 61 H ALT (10-49) U/L 50 H Alkaline Phosphatase (46-116) U/L 96 Total Protein (5.7-8.2) g/dL 7.0 Albumin (3.2-5.0) g/dL 3.5 PFSH All Active Problems (Updated 04/09/25 @ 20:00 by Stephanie Hamilton NP) Episode of heavy vaginal bleeding (Acute) Abnormal mammogram (Acute) Mass of right breast (Acute) Breast pain, right (Acute) Migraine (Chronic) Seizure disorder (Chronic) Surgical History History of bilateral tubal ligation Social History Smoking/Tobacco Use Status: Former Tobacco Use Smoking risk assessment performed?: Yes Alcohol Intake: current Alcohol Intake frequency: a few times a month Drug use: Never Substance use type: does not use Household members: significant other and family Number of Children: 1 Do you need help understanding health information?: Rarely 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 Date GA/Weeks # Preg Succ Route Wgt Sex Labor Lgth Anesthesia Location Prov Complic 12/12/00 41 No Yes vaginal 3968.933 g Male [facility] Delivery Date: 12/12/00 Last Updated by: Dayana Hurts
[2025-04-09 19:53] LABS: Abs Immature Grans 0.01 10^3/uL (0.0-0.06); HCT 35.6 % (36.0-46.0); HGB 12.2 g/dL (11.2-15.7); Immature Grans % 0.2 %; MCH 28.4 pg (27.0-33.0); MCHC 34.3 % (32.0-36.0); MCV 83 fL (80-95); MPV 10.1 fL (8.0-11.0); Platelet Count 101 10^3/uL (130-400); RBC 4.29 10^6/uL (3.93-5.22); RDW 15.3 % (11.7-14.6); RDW-SD 46.3 fL; WBC 5.10 10^3/uL (4.4-10.8)
[2025-04-09 20:17] LABS: ALT 50 U/L (10-49); AST 61 U/L (<34); Albumin 3.5 g/dL (3.2-5.0); Alkaline Phosphatase 96 U/L (46-116); Anion Gap 9.8 mmol/L (3-11); BUN 11 mg/dL (9-23); Bilirubin, Total 1.4 mg/dL (0.2-1.2); CO2 26.2 mmol/L (20.0-31.0); Calcium 8.4 mg/dL (8.3-10.6); Chloride 106 mmol/L (98-107); Glucose 110 mg/dL (74-106); Potassium 2.7 mmol/L (3.5-5.1); Sodium 142 mmol/L (136-145); Total Protein 7.0 g/dL (5.7-8.2)
== END 2025-04-09 20:20 | disposition home or self-care (01) ==
PROVIDERS: Emergency Provider Registered Nurse Emergency
DX: N93.9 Abnormal uterine and vaginal bleeding, unspecified (principal)
CPT/HCPCS: 99283 ×2; 36415; 80053; 86850; 86900; 86901; 85025